=== PATIENT | female | born 1970 | race Two or more races ===

== ENCOUNTER 2023-10-24 18:58 | Inpatient (IN) | payer MEDICAID, OTHER ==
[~2023-10-24] VITALS: Ht 162.6 cm; Wt 141.0 kg
[2023-10-24] MEDS: ALBUTEROL SULF 2.5 MG/0.5ML(0.5%) NEB SOLN HHN ONE (19:37)
[2023-10-24] MEDS: IPRATROPIUM BROM 0.5 MG/2.5ML INH SOL HHN ONE (19:37)
[2023-10-24 20:16] LABS: Basophils # (auto) 0 10 ^3/uL (0-0.2); Basophils % (auto) 0.2 % (0.0-2.0); Eosinophils # (auto) 0.1 10 ^3/uL (0-0.8); Eosinophils % (auto) 1.5 % (0.0-7.0); Hematocrit 41.4 % (36.0-46.0); Hemoglobin 13.1 g/dL (12.2-16.2); Lymphocytes # (auto) 1.1 10 ^3/uL (0.4-5.4); Lymphocytes % (auto) 12.8 % (10.0-50.0); Mean Corpuscular Hemoglobin 28.9 pg (28.0-32.0); Mean Corpuscular Hgb Conc. 31.7 g/dL (32.0-36.0); Mean Corpuscular Volume 91.2 fL (80.0-100.0); Monocytes # (auto) 0.4 10 ^3/uL (0-1.3); Monocytes % (auto) 4.6 % (0.0-12.0); Neutrophils # (auto) 7.1 10 ^3/uL (1.6-8.6); Neutrophils % (auto) 80.9 % (37.0-80.0); Red Blood Cells 4.53 10^6/uL (4.0-5.20); Red Cell Distribution Width 14.9 % (11.8-14.3); White Blood Cell 8.8 10^3/uL (4.4-10.8)
[2023-10-24 20:26] LABS: Chloride 105 mmol/L (98-107); Potassium 4.1 mmol/L (3.5-5.1); Sodium 141 mmol/L (136-145)
[2023-10-24 20:27] LABS: Anion Gap 3 (5-15); Carbon Dioxide 33 mmol/L (20-30)
[2023-10-24 20:28] LABS: Calcium 8.9 mg/dL (8.5-10.1)
[2023-10-24 20:32] LABS: BUN/Creatinine Ratio 17.9 (10.0-20.0); Blood Urea Nitrogen 12 mg/dL (9-23); Glucose 106 mg/dL (74-106)
[2023-10-24] MEDS ORDERED: DOCUSATE SOD 100 MG CAP PO PRN (21:30)
[2023-10-24] MEDS ORDERED: HYDROcodone-ACET 5/325MG TAB PO PRN (21:30)
[2023-10-24] MEDS ORDERED: ONDANSETRON HCL 4 MG/2 ML VIAL IV PRN (21:30)
[2023-10-24 22:56] VITALS: BP 108/77; PULSE 72; RESP 20; TEMP 98.7; O2SAT 94
[2023-10-24] MEDS ORDERED: MORPHINE SULFATE INJ 2 MG/ml SYRG IV PRN (23:00)
[2023-10-24] MEDS ORDERED: NITROGLYCERIN 0.4 MG SL TAB SL PRN (23:00)
[2023-10-25] VITALS (13 sets, daily range): BP systolic 97–102; BP diastolic 45–60; PULSE 74–91; RESP 16–20; TEMP 97.6–98.3; O2SAT 93–100
[2023-10-25] MEDS: methylPREDNISolone SOD SUCC 40 MG/ML VL IV SCH ×2 (03:01→10:54)
[2023-10-25] MEDS: SODIUM CHLOR 0.9% PF (SALINE LOCK) 10ML VIAL/SYR IV SCH (03:01)
[2023-10-25] MEDS: methylPREDNISolone SOD SUCC 125 MG/2 ML VL IV ONE (03:25)
[2023-10-25] MEDS: AZITHROMYCIN 500MG/ 250ML 250 ML IV ONE (03:26)
[2023-10-25 03:34] LABS: Urine Bacteria FEW /hpf (None Seen); Urine Blood Negative /uL (Negative); Urine Clarity HAZY (Clear); Urine Color Yellow (Yellow); Urine Mucus FEW (None Seen); Urine Protein, UAD TRACE (Negative); Urine Specific Gravity 1.027 (1.001-1.035); Urine Urobilinogen Normal (Negative); Urine WBC 129 /hpf (0 - 5)
[2023-10-25 04:18] LABS: Rapid Influenza A Negative (Negative); Rapid Influenza B Negative (Negative)
[2023-10-25 04:19] LABS: COVID19 ANTIGEN SOFIA FIA NEGATIVE (NEGATIVE)
[2023-10-25 04:53] LABS: Basophils # (auto) 0 10 ^3/uL (0-0.2); Basophils % (auto) 0.1 % (0.0-2.0); Eosinophils # (auto) 0.1 10 ^3/uL (0-0.8); Eosinophils % (auto) 1.3 % (0.0-7.0); Hematocrit 36.3 % (36.0-46.0); Hemoglobin 11.6 g/dL (12.2-16.2); Lymphocytes # (auto) 0.7 10 ^3/uL (0.4-5.4); Lymphocytes % (auto) 13.1 % (10.0-50.0); Mean Corpuscular Hemoglobin 29.4 pg (28.0-32.0); Mean Corpuscular Volume 91.9 fL (80.0-100.0); Monocytes # (auto) 0.3 10 ^3/uL (0-1.3); Monocytes % (auto) 4.4 % (0.0-12.0); Neutrophils # (auto) 4.6 10 ^3/uL (1.6-8.6); Neutrophils % (auto) 81.1 % (37.0-80.0); Nucleated Red Blood Cells % 0.1 %; Red Blood Cells 3.95 10^6/uL (4.0-5.20); White Blood Cell 5.7 10^3/uL (4.4-10.8)
[2023-10-25] MEDS: cefTRIAXone 1GM/50ML D5W 50 ML IV SCH (09:56)
[2023-10-25] MEDS: FAMOTIDINE (10MG/ML) 2ML VL IV SCH (09:56)
[2023-10-25 11:05] LABS: Alanine Aminotransferase 17 U/L (7-40); Albumin 3.6 g/dL (3.2-4.8); Alkaline Phosphatase 69 U/L (46-116); Anion Gap 2 (5-15); Aspartate Aminotransferase 9 U/L (13-40); BUN/Creatinine Ratio 15.2 (10.0-20.0); Bilirubin, Total 0.4 mg/dL (0.2-1.0); Blood Urea Nitrogen 10 mg/dL (9-23); Calcium 8.5 mg/dL (8.5-10.1); Carbon Dioxide 31 mmol/L (20-30); Chloride 107 mmol/L (98-107); Cholesterol 120 mg/dL (< 200); Glucose 138 mg/dL (74-106); HDL Cholesterol 41 mg/dL (40-59); LDL Cholesterol 67 mg/dL (< 100); Potassium 3.9 mmol/L (3.5-5.1); Sodium 140 mmol/L (136-145); Triglycerides 72 mg/dL (< 150)
[2023-10-25 11:06] LABS: Total Protein 5.1 g/dL (5.7-8.2)
[2023-10-25 11:35] LABS: INR 1.03 (0.9-1.15); Partial Thromboplastin Time 23.6 SEC (24.5-34.5); Prothrombin Time 10.8 sec (9.3-11.8)
[2023-10-25 11:53] LABS: Carcinoembryonic Antigen 1.94 ng/mL (<=5.0); Folate (Folic Acid) 10.55 ng/mL (>5.38)
[2023-10-25] MEDS: ALBUTEROL SULF 2.5 MG/0.5ML(0.5%) NEB SOLN NEB PRN (15:40)
[2023-10-25] MEDS: IPRATROPIUM BROM 0.5 MG/2.5ML INH SOL NEB PRN (15:40)
[2023-10-26] VITALS (15 sets, daily range): BP systolic 98–103; BP diastolic 41–68; PULSE 61–91; RESP 16–20; TEMP 36.8; O2SAT 92–100
[2023-10-26] MEDS: AZITHROMYCIN 500MG/ 250ML 250 ML IV SCH (01:11)
[2023-10-26 10:19] LABS: Basophils # (auto) 0 10 ^3/uL (0-0.2); Basophils % (auto) 0.1 % (0.0-2.0); Eosinophils # (auto) 0 10 ^3/uL (0-0.8); Eosinophils % (auto) 0.4 % (0.0-7.0); Hematocrit 38.8 % (36.0-46.0); Hemoglobin 12.4 g/dL (12.2-16.2); Lymphocytes # (auto) 0.8 10 ^3/uL (0.4-5.4); Lymphocytes % (auto) 12.2 % (10.0-50.0); Mean Corpuscular Hemoglobin 29.6 pg (28.0-32.0); Mean Corpuscular Hgb Conc. 31.9 g/dL (32.0-36.0); Mean Corpuscular Volume 92.8 fL (80.0-100.0); Monocytes # (auto) 0.5 10 ^3/uL (0-1.3); Monocytes % (auto) 7.6 % (0.0-12.0); Neutrophils # (auto) 5.1 10 ^3/uL (1.6-8.6); Neutrophils % (auto) 79.7 % (37.0-80.0); Nucleated Red Blood Cells % 0.1 %; Red Blood Cells 4.18 10^6/uL (4.0-5.20); Red Cell Distribution Width 14.9 % (11.8-14.3); White Blood Cell 6.3 10^3/uL (4.4-10.8)
[2023-10-26 10:25] LABS: Chloride 107 mmol/L (98-107); Potassium 3.8 mmol/L (3.5-5.1); Sodium 142 mmol/L (136-145)
[2023-10-26 10:26] LABS: Anion Gap 4 (5-15); Carbon Dioxide 31 mmol/L (20-30)
[2023-10-26 10:27] LABS: Calcium 8.8 mg/dL (8.7-10.4)
[2023-10-26 10:31] LABS: BUN/Creatinine Ratio 10.7 (10.0-20.0); Blood Urea Nitrogen 6 mg/dL (9-23); Glucose 96 mg/dL (74-106)
[2023-10-26] MEDS: IPRATROPIUM BROM 0.5 MG/2.5ML INH SOL NEB SCH (19:03)
[2023-10-26] MEDS: ALBUTEROL SULF 2.5 MG/0.5ML(0.5%) NEB SOLN NEB SCH (19:03)
[2023-10-27] VITALS (17 sets, daily range): BP systolic 79–115; BP diastolic 41–72; PULSE 70–94; RESP 16–22; TEMP 97.5–98.6; O2SAT 95–100
[2023-10-27] MEDS: ACETAMINOPHEN 325 MG TAB PO PRN (08:32)
[2023-10-27] MEDS: SODIUM CHLORIDE 0.9% 1,000 ML IV SCH (09:45)
[2023-10-28] VITALS (12 sets, daily range): BP systolic 91–101; BP diastolic 43–53; PULSE 67–94; RESP 14–20; TEMP 97.8–98.5; O2SAT 90–100
[2023-10-28 07:49] LABS: Basophils # (auto) 0 10 ^3/uL (0-0.2); Basophils % (auto) 0.2 % (0.0-2.0); Eosinophils # (auto) 0 10 ^3/uL (0-0.8); Hematocrit 40.2 % (36.0-46.0); Hemoglobin 12.7 g/dL (12.2-16.2); Lymphocytes # (auto) 0.3 10 ^3/uL (0.4-5.4); Lymphocytes % (auto) 4.7 % (10.0-50.0); Mean Corpuscular Hemoglobin 28.7 pg (28.0-32.0); Mean Corpuscular Hgb Conc. 31.7 g/dL (32.0-36.0); Mean Corpuscular Volume 90.7 fL (80.0-100.0); Monocytes # (auto) 0.2 10 ^3/uL (0-1.3); Monocytes % (auto) 2.6 % (0.0-12.0); Neutrophils # (auto) 6.7 10 ^3/uL (1.6-8.6); Neutrophils % (auto) 92.5 % (37.0-80.0); Red Blood Cells 4.43 10^6/uL (4.0-5.20); Red Cell Distribution Width 15.1 % (11.8-14.3); White Blood Cell 7.2 10^3/uL (4.4-10.8)
[2023-10-28 08:12] LABS: Calcium 9.2 mg/dL (8.5-10.1); Chloride 104 mmol/L (98-107); Sodium 137 mmol/L (136-145)
[2023-10-28 08:13] LABS: Anion Gap 5 (5-15); Carbon Dioxide 28 mmol/L (20-30)
[2023-10-28 08:19] LABS: BUN/Creatinine Ratio 17.3 (10.0-20.0); Blood Urea Nitrogen 9 mg/dL (9-23); Glucose 141 mg/dL (74-106)
[2023-10-28] MEDS ORDERED: AZITTAB PO ×3 (11:29→14:30)
[2023-10-28] MEDS ORDERED: ALBUAER3 IN ×2 (12:27→14:30)
== END 2023-10-28 18:00 | disposition home or self-care (01) | DRG 140 ==
LOC: ER 18:58 → EDBD 18:58 → TELE 22:51 → TELE-CENTR 10-25 12:11
PROVIDERS: ADMIT Internal Medicine; ATTEND Internal Medicine
DX: J44.1 Chronic obstructive pulmonary disease with (acute) exacerbation (principal); J96.01 Acute respiratory failure with hypoxia; J15.69 Pneumonia due to other Gram-negative bacteria; Z99.81 Dependence on supplemental oxygen; J15.9 Unspecified bacterial pneumonia; N39.0 Urinary tract infection, site not specified; F31.9 Bipolar disorder, unspecified; F44.81 Dissociative identity disorder; F41.0 Panic disorder [episodic paroxysmal anxiety]; Z20.822 Contact with and (suspected) exposure to COVID-19; J44.0 Chronic obstructive pulmonary disease with (acute) lower respiratory infection
CPT/HCPCS: 36415; 71045; 80048; 80053; 80061; 81001; 82378; 82607; 82746; 83036; 83880; 84443; 84484; 85025; 85610; 85730; 87086; 87426; 87804; 93005; 94640; G0378; J3490

== ENCOUNTER 2023-11-11 18:21 | Emergency (ER) | payer MEDICAID ==
[~2023-11-11] VITALS: Ht 165.1 cm; Wt 64.0 kg
[~2023-11-11 18:21] MED LIST: ALBUAER3 IN; AZITTAB PO
[2023-11-12] MEDS ORDERED: ALBUAER3 IN (01:03)
[2023-11-12 14:40] VITALS: BP 120/60; PULSE 80; RESP 13; TEMP 98.3; O2SAT 95
== END 2023-11-12 14:50 | disposition still patient (30) ==
LOC: ER 18:21 → EDBD 18:21 → ER 11-12 14:47
DX: M25.551 Pain in right hip (principal); J44.9 Chronic obstructive pulmonary disease, unspecified; F20.9 Schizophrenia, unspecified; Z00.00 Encounter for general adult medical examination without abnormal findings; Z76.89 Persons encountering health services in other specified circumstances; Z87.891 Personal history of nicotine dependence
CPT/HCPCS: 73502

== ENCOUNTER 2023-11-13 20:52 | Emergency (ER) | payer MEDICAID ==
[~2023-11-13] VITALS: Ht 167.6 cm; Wt 68.0 kg
[2023-11-13 23:42] VITALS: BP 113/66; PULSE 75; RESP 18; TEMP 97.9
[2023-11-14] MEDS ORDERED: NAP500T PO (02:52)
[2023-11-14 03:56] VITALS: O2SAT 100
[2023-11-15] MEDS ORDERED: NITR-87 PO (18:49)
[2023-11-15] MEDS ORDERED: DICY10CA PO (18:49)
[2023-11-15] MEDS ORDERED: ZOFR4T PO (18:49)
[2023-11-15] MEDS ORDERED: ALBU108A5 IN (19:28)
== END 2023-11-14 04:10 | disposition home or self-care (01) ==
LOC: ER 20:52 → EDBD 20:52 → ER 11-14 04:10
DX: M25.552 Pain in left hip (principal); J44.9 Chronic obstructive pulmonary disease, unspecified; Z87.891 Personal history of nicotine dependence; Z79.2 Long term (current) use of antibiotics; Z79.899 Other long term (current) drug therapy

== ENCOUNTER 2023-11-15 15:52 | Emergency (ER) | payer MEDICAID ==
[~2023-11-15] VITALS: Ht 160 cm; Wt 68.2 kg
[~2023-11-15 15:52] MED LIST changes: +NAP500T PO
[2023-11-15] MEDS: ONDANSETRON ODT 4 MG TAB PO ONE (16:30)
[2023-11-15] MEDS: DICYCLOMINE HCL (10MG/ML) 2 ML AMPULE IM ONE (16:30)
[2023-11-15 17:25] LABS: Urine Bacteria FEW /hpf (None Seen); Urine Blood TRACE /uL (Negative); Urine Clarity HAZY (Clear); Urine Color Colorless (Yellow); Urine Mucus FEW (None Seen); Urine Protein, UAD Negative (Negative); Urine Specific Gravity 1.014 (1.001-1.035); Urine Urobilinogen Normal (Negative); Urine WBC 264 /hpf (0 - 5)
[2023-11-15 18:23] LABS: Rapid Influenza A Negative (Negative); Rapid Influenza B Negative (Negative)
[2023-11-15 18:24] LABS: COVID19 ANTIGEN SOFIA FIA NEGATIVE (NEGATIVE)
[2023-11-15] MEDS ORDERED: DICY10CA PO (18:49)
[2023-11-15] MEDS ORDERED: NITR-87 PO (18:49)
[2023-11-15] MEDS ORDERED: ZOFR4T PO (18:49)
[2023-11-15] MEDS ORDERED: ALBU108A5 IN (19:28)
[2023-11-15] MEDS: NITROFURANTOIN 100 mg CAP PO ONE (19:36)
[2023-11-16 07:30] VITALS: BP 110/55; PULSE 76; RESP 16; TEMP 97.9; O2SAT 98
== END 2023-11-16 08:45 | disposition home or self-care (01) ==
LOC: EDBD 15:52 → ER 15:52
DX: N39.0 Urinary tract infection, site not specified (principal); R19.7 Diarrhea, unspecified; J44.9 Chronic obstructive pulmonary disease, unspecified; Z20.822 Contact with and (suspected) exposure to COVID-19; Z87.891 Personal history of nicotine dependence
CPT/HCPCS: 36415; 81001; 87426; 87804; 96372; 99283; J0500; Q0162

== ENCOUNTER 2023-11-23 22:00 | Emergency (ER) | payer MEDICAID ==
[~2023-11-23] VITALS: Ht 162.6 cm; Wt 55.0 kg
[~2023-11-23 22:00] MED LIST changes: +ALBU108A5 IN; +DICY10CA PO; +NITR-87 PO; +ZOFR4T PO
[2023-11-23] MEDS: methylPREDNISolone SOD SUCC 125 MG/2 ML VL IM ONE (23:55)
[2023-11-23] MEDS: KETOROLAC TROMETH 30 MG/ML 1ML VIAL IM ONE (23:55)
[2023-11-24] MEDS ORDERED: LOPE1TAB9 PO (00:34)
[2023-11-24 14:50] VITALS: PULSE 75
[2023-11-25] MEDS: HALOPERIDOL 5 MG TAB PO SCH (01:32)
[2023-11-25 03:59] VITALS: PULSE 66; RESP 16; O2SAT 100
[2023-11-25] MEDS: methylPREDNISolone SOD SUCC 125 MG/2 ML VL IM ONE (10:00)
[2023-11-25] MEDS: IPRATROPIUM BROM 0.5 MG/2.5ML INH SOL NEB ONE (10:55)
[2023-11-25] MEDS: ALBUTEROL SULF 2.5 MG/0.5ML(0.5%) NEB SOLN NEB ONE (10:55)
[2023-11-26] MEDS: IPRATROPIUM BROM 0.5 MG/2.5ML INH SOL NEB ONE (04:00)
[2023-11-26] MEDS: ALBUTEROL SULF 2.5 MG/0.5ML(0.5%) NEB SOLN NEB ONE (04:00)
[2023-11-26 07:15] VITALS: PULSE 91; RESP 16; O2SAT 100
[2023-11-26 16:27] VITALS: PULSE 70; RESP 16; TEMP 98.1; O2SAT 99
[2023-11-26 16:30] VITALS: BP 114/76
== END 2023-11-26 16:35 | disposition home or self-care (01) ==
LOC: ER 22:00 → EDBD 22:00 → ER 11-26 16:35
DX: S33.5XXA Sprain of ligaments of lumbar spine, initial encounter (principal); R19.7 Diarrhea, unspecified; J44.9 Chronic obstructive pulmonary disease, unspecified; Z87.891 Personal history of nicotine dependence; Z79.2 Long term (current) use of antibiotics; Z79.899 Other long term (current) drug therapy; X58.XXXA Exposure to other specified factors, initial encounter; Y93.89 Activity, other specified; Y92.89 Other specified places as the place of occurrence of the external cause; Y99.8 Other external cause status
CPT/HCPCS: 94640; 96372; 99285; J1885; J2930; J7644

== ENCOUNTER 2024-01-01 20:05 | Emergency (ER) | payer MEDICAID ==
[~2024-01-01] VITALS: Ht 165.1 cm; Wt 63.0 kg
[~2024-01-01 20:05] MED LIST changes: +LOPE1TAB9 PO
[2024-01-01 21:11] LABS: Basophils # (auto) 0 10 ^3/uL (0-0.2); Basophils % (auto) 0.5 % (0.0-2.0); Eosinophils # (auto) 0.1 10 ^3/uL (0-0.8); Eosinophils % (auto) 1.6 % (0.0-7.0); Hemoglobin 14.9 g/dL (12.2-16.2); Lymphocytes # (auto) 1.6 10 ^3/uL (0.4-5.4); Lymphocytes % (auto) 28.9 % (10.0-50.0); Mean Corpuscular Hemoglobin 29.6 pg (28.0-32.0); Mean Corpuscular Hgb Conc. 32.4 g/dL (32.0-36.0); Mean Corpuscular Volume 91.3 fL (80.0-100.0); Monocytes # (auto) 0.7 10 ^3/uL (0-1.3); Neutrophils # (auto) 3.1 10 ^3/uL (1.6-8.6); Red Blood Cells 5.03 10^6/uL (4.0-5.20); White Blood Cell 5.5 10^3/uL (4.4-10.8)
[2024-01-01 21:30] LABS: Alanine Aminotransferase 12 U/L (7-40); Albumin 4.5 g/dL (3.2-4.8); Alkaline Phosphatase 79 U/L (46-116); Anion Gap 5 (5-15); Aspartate Aminotransferase 12 U/L (13-40); BUN/Creatinine Ratio 12.7 (10.0-20.0); Bilirubin, Total 0.3 mg/dL (0.2-1.0); Blood Urea Nitrogen 10 mg/dL (9-23); Calcium 9.8 mg/dL (8.7-10.4); Carbon Dioxide 30 mmol/L (20-30); Chloride 103 mmol/L (98-107); Glucose 117 mg/dL (74-106); Potassium 4.6 mmol/L (3.5-5.1); Sodium 138 mmol/L (136-145); Total Protein 6.1 g/dL (5.7-8.2)
[2024-01-02] MEDS ORDERED: PRED20TA2 PO (01:17)
[2024-01-02] MEDS: IPRATROPIUM BROM 0.5 MG/2.5ML INH SOL NEB ONE (01:31)
[2024-01-02] MEDS: ALBUTEROL SULF 2.5 MG/0.5ML(0.5%) NEB SOLN NEB ONE (01:31)
[2024-01-02 02:05] VITALS: BP 110/73; RESP 16; TEMP 97.9; O2SAT 98
[2024-01-02 03:14] VITALS: PULSE 65
[2024-01-02] MEDS: methylPREDNISolone SOD SUCC 125 MG/2 ML VL IV ONE (05:20)
== END 2024-01-02 03:15 | disposition left against medical advice (07) ==
LOC: EDBD 20:05 → ER 20:05 → EDUNIT# 20:05 → ER 01-02 02:02
DX: J44.1 Chronic obstructive pulmonary disease with (acute) exacerbation (principal); F20.9 Schizophrenia, unspecified
CPT/HCPCS: 36415; 71045; 80053; 83880; 84484; 85025; 93005; 94640; 99285; J7644

== ENCOUNTER 2024-02-05 19:04 | Inpatient (IN) | payer MEDICAID ==
[~2024-02-05] VITALS: Ht 167.6 cm; Wt 60.0 kg
[~2024-02-05 19:04] MED LIST changes: +PRED20TA2 PO
[2024-02-05 20:47] VITALS: PULSE 94; RESP 22; O2SAT 98
[2024-02-05 21:48] LABS: Basophils # (auto) 0 10 ^3/uL (0-0.2); Basophils % (auto) 0.5 % (0.0-2.0); Eosinophils # (auto) 0.2 10 ^3/uL (0-0.8); Eosinophils % (auto) 3.9 % (0.0-7.0); Hematocrit 37.7 % (36.0-46.0); Hemoglobin 12.3 g/dL (12.2-16.2); Lymphocytes % (auto) 23.4 % (10.0-50.0); Mean Corpuscular Hemoglobin 30.3 pg (28.0-32.0); Mean Corpuscular Hgb Conc. 32.8 g/dL (32.0-36.0); Mean Corpuscular Volume 92.3 fL (80.0-100.0); Monocytes # (auto) 0.7 10 ^3/uL (0-1.3); Monocytes % (auto) 15.8 % (0.0-12.0); Neutrophils # (auto) 2.4 10 ^3/uL (1.6-8.6); Neutrophils % (auto) 56.4 % (37.0-80.0); Red Blood Cells 4.08 10^6/uL (4.0-5.20); Red Cell Distribution Width 16.4 % (11.8-14.3); White Blood Cell 4.2 10^3/uL (4.4-10.8)
[2024-02-05 22:03] LABS: Albumin 3.7 g/dL (3.2-4.8); Alkaline Phosphatase 57 U/L (46-116); Anion Gap 4 (5-15); Aspartate Aminotransferase 13 U/L (13-40); Calcium 9.6 mg/dL (8.7-10.4); Carbon Dioxide 30 mmol/L (20-30); Chloride 108 mmol/L (98-107); Glucose 107 mg/dL (74-106); INR 1.12 (0.9-1.15); Lipase 38 U/L (12-53); Partial Thromboplastin Time 27.1 SEC (24.5-34.5); Potassium 3.6 mmol/L (3.5-5.1); Prothrombin Time 11.8 sec (9.3-11.8); Sodium 142 mmol/L (136-145)
[2024-02-05 22:04] LABS: Bilirubin, Total 0.2 mg/dL (0.2-1.0); Total Protein 5.4 g/dL (5.7-8.2)
[2024-02-05] MEDS: IPRATROPIUM BROM 0.5 MG/2.5ML INH SOL NEB ONE (22:17)
[2024-02-05] MEDS: ALBUTEROL SULF 2.5 MG/0.5ML(0.5%) NEB SOLN NEB ONE (22:18)
[2024-02-05 22:19] LABS: Alanine Aminotransferase < 9 U/L (7-40); BUN/Creatinine Ratio 8.6 (10.0-20.0); Blood Urea Nitrogen < 5 mg/dL (9-23)
[2024-02-06] VITALS (13 sets, daily range): BP systolic 97–123; BP diastolic 42–80; PULSE 66–81; RESP 16–24; TEMP 97.9–98; O2SAT 3–100
[2024-02-06] MEDS: ACETAMINOPHEN 500 MG TAB PO ONE (01:07)
[2024-02-06 02:09] LABS: Urine Bacteria FEW /hpf (None Seen); Urine Blood Negative /uL (Negative); Urine Budding Yeast OCCASIONAL /hpf (None Seen); Urine Clarity Turbid (Clear); Urine Color Yellow (Yellow); Urine Hyaline Cast FEW /lpf (0 - 2); Urine Mucus FEW (None Seen); Urine Protein, UAD 1+ (Negative); Urine Specific Gravity 1.021 (1.001-1.035); Urine Urobilinogen 2 mg/dL (Negative); Urine WBC 56 /hpf (0 - 5)
[2024-02-06 02:14] LABS: Amphetamine Screen, Urine Neg (NEGATIVE); Barbiturate Scree,Urine Neg (NEGATIVE); Benzodiazephine Screen, Urine Neg (NEGATIVE); Cannabinoid Screen, Urine Neg (NEGATIVE); Cocaine Screen, Urine Neg (NEGATIVE); Opiate Scree,Urine Neg (NEGATIVE); Phencyclidine Screen, Urine Neg (NEGATIVE)
[2024-02-06] MEDS: IBUPROFEN 600 MG TAB PO ONE (03:14)
[2024-02-06] MEDS: IPRATROPIUM BROM 0.5 MG/2.5ML INH SOL NEB ONE (03:27)
[2024-02-06] MEDS: ALBUTEROL SULF 2.5 MG/0.5ML(0.5%) NEB SOLN NEB ONE (03:27)
[2024-02-06] MEDS ORDERED: ONDANSETRON HCL 4 MG/2 ML VIAL IV PRN (07:00)
[2024-02-06] MEDS ORDERED: TEMAZEPAM 15 MG CAP PO PRN (07:00)
[2024-02-06] MEDS ORDERED: ALBUTEROL SULF 2.5 MG/0.5ML(0.5%) NEB SOLN NEB PRN (07:00)
[2024-02-06] MEDS ORDERED: NITROGLYCERIN 0.4 MG SL TAB SL PRN (07:00)
[2024-02-06] MEDS ORDERED: MORPHINE SULFATE INJ 2 MG/ml SYRG IV PRN ×2 (07:00)
[2024-02-06 09:21] LABS: Hepatitis B Surface Antigen Negative (Negative)
[2024-02-06 09:42] LABS: Hepatitis C Antibody Negative (Negative)
[2024-02-06] MEDS: cefTRIAXone 1GM/50ML D5W 50 ML IV ONE (10:00)
[2024-02-06] MEDS: PNEUMOCOCCAL VACC POLYS 25 MCG/0.5 ML VIAL IM ONE (10:17)
[2024-02-06] MEDS ORDERED: LORazepam 2MG/ML-1ML VIAL IV ONE (11:00)
[2024-02-06 11:15] LABS: Basophils # (auto) 0 10 ^3/uL (0-0.2); Basophils % (auto) 0.5 % (0.0-2.0); Eosinophils # (auto) 0.2 10 ^3/uL (0-0.8); Eosinophils % (auto) 3.4 % (0.0-7.0); Hematocrit 42.4 % (36.0-46.0); Hemoglobin 13.8 g/dL (12.2-16.2); Lymphocytes % (auto) 22.2 % (10.0-50.0); Mean Corpuscular Hemoglobin 30.5 pg (28.0-32.0); Mean Corpuscular Hgb Conc. 32.6 g/dL (32.0-36.0); Mean Corpuscular Volume 93.4 fL (80.0-100.0); Monocytes # (auto) 0.7 10 ^3/uL (0-1.3); Neutrophils # (auto) 2.6 10 ^3/uL (1.6-8.6); Neutrophils % (auto) 58.9 % (37.0-80.0); Nucleated Red Blood Cells % 0.1 %; Red Blood Cells 4.54 10^6/uL (4.0-5.20); White Blood Cell 4.5 10^3/uL (4.4-10.8)
[2024-02-06 11:34] LABS: Albumin 4.2 g/dL (3.2-4.8); Alkaline Phosphatase 67 U/L (46-116); Anion Gap 3 (5-15); Aspartate Aminotransferase 14 U/L (13-40); CRP High Sensitivity 0.84 mg/dL (<1.0); Calcium 9.6 mg/dL (8.5-10.1); Carbon Dioxide 31 mmol/L (20-30); Chloride 105 mmol/L (98-107); Cholesterol 161 mg/dL (< 200); Glucose 104 mg/dL (74-106); HDL Cholesterol 63 mg/dL (40-59); LDL Cholesterol 75 mg/dL (< 100); Magnesium 1.6 mg/dL (1.6-2.6); Potassium 4.3 mmol/L (3.5-5.1); Sodium 139 mmol/L (136-145); Triglycerides 43 mg/dL (< 150)
[2024-02-06 11:35] LABS: Bilirubin, Total 0.3 mg/dL (0.2-1.0)
[2024-02-06 11:48] LABS: Alanine Aminotransferase 9 U/L (7-40); BUN/Creatinine Ratio 7.8 (10.0-20.0); Blood Urea Nitrogen < 5 mg/dL (9-23)
[2024-02-06] MEDS: AZITHROMYCIN 500MG/ 250ML 250 ML IV SCH (11:50)
[2024-02-06] MEDS: IPRATROPIUM BROM 0.5 MG/2.5ML INH SOL NEB SCH (12:00)
[2024-02-06] MEDS: ALBUTEROL SULF 2.5 MG/0.5ML(0.5%) NEB SOLN NEB SCH (12:00)
[2024-02-06] MEDS: ALBUTEROL SULF 2.5 MG/0.5ML(0.5%) NEB SOLN NEB PRN (16:47)
[2024-02-06] MEDS: IPRATROPIUM BROM 0.5 MG/2.5ML INH SOL NEB PRN (16:48)
[2024-02-07] VITALS (10 sets, daily range): BP systolic 100–128; BP diastolic 47–92; PULSE 60–89; RESP 14–18; TEMP 97.6–98.9; O2SAT 96–100
[2024-02-07] MEDS: ACETAMINOPHEN 325 MG TAB PO PRN (03:26)
[2024-02-07] MEDS: HYDROcodone-ACET 5/325MG TAB PO PRN (05:43)
[2024-02-07] MEDS: BUDESONIDE (INHALATION) 0.5 MG/2 ML NEB ONE (06:36)
[2024-02-07 07:34] LABS: Hematocrit 39.8 % (36.0-46.0); Hemoglobin 12.9 g/dL (12.2-16.2); Mean Corpuscular Hemoglobin 30.5 pg (28.0-32.0); Mean Corpuscular Hgb Conc. 32.3 g/dL (32.0-36.0); Mean Corpuscular Volume 94.4 fL (80.0-100.0); Red Blood Cells 4.22 10^6/uL (4.0-5.20); Red Cell Distribution Width 16.7 % (11.8-14.3); White Blood Cell 3.2 10^3/uL (4.4-10.8)
[2024-02-07 07:41] LABS: Albumin 3.5 g/dL (3.2-4.8); Alkaline Phosphatase 58 U/L (46-116); Anion Gap 3 (5-15); Aspartate Aminotransferase 16 U/L (13-40); Carbon Dioxide 29 mmol/L (20-30); Chloride 106 mmol/L (98-107); Glucose 78 mg/dL (74-106); Magnesium 1.6 mg/dL (1.6-2.6); Potassium 3.9 mmol/L (3.5-5.1); Sodium 138 mmol/L (136-145)
[2024-02-07 07:42] LABS: Bilirubin, Total 0.3 mg/dL (0.2-1.0); Total Protein 5.1 g/dL (5.7-8.2)
[2024-02-07 07:43] LABS: Band Neutrophils % (manual) 0; Basophils % (manual) 0 (0.0-2.0); Blast Cells 0; Metamyelocytes % 0; Myelocytes % 0; Promyelocytes % 0; Reactive Lymphocytes 0
[2024-02-07 07:56] LABS: Alanine Aminotransferase < 9 U/L (7-40); BUN/Creatinine Ratio 10.9 (10.0-20.0); Blood Urea Nitrogen < 5 mg/dL (9-23)
[2024-02-07 08:24] LABS: Eosinophils % (manual) 8 (0-7); Lymphocytes % (manual) 29 (10.0-50.0); Monocytes % (manual) 17 (0-12); Platelet Estimate Decreased
[2024-02-07] MEDS: cefTRIAXone 1GM/50ML D5W 50 ML IV SCH (08:51)
[2024-02-07] MEDS ORDERED: LORazepam 0.5 MG TAB PO PRN (12:15)
[2024-02-07] MEDS ORDERED: LORazepam 2MG/ML-1ML VIAL IV PRN (12:30)
[2024-02-07 21:00] LABS: COVID19 ANTIGEN SOFIA FIA NEGATIVE (NEGATIVE)
[2024-02-07 21:01] LABS: Rapid Influenza A Negative (Negative); Rapid Influenza B Negative (Negative)
[2024-02-07] MEDS: MUPIROCIN 2% OINT 15gm or 22gm FOR MRSA NARES EACHNOSTRI SCH (22:00)
[2024-02-08] VITALS (11 sets, daily range): BP systolic 90–102; BP diastolic 50–59; PULSE 58–78; RESP 16–20; TEMP 96.8–98.5; O2SAT 10–100
[2024-02-08] MEDS ORDERED: CEFP200T15 PO (09:17)
[2024-02-08] MEDS ORDERED: AZITTAB PO (09:17)
[2024-02-08] MEDS ORDERED: ALBUAER3 IN (09:17)
[2024-02-08] MEDS ORDERED: MUPI2OIN2 EACHNOSTRI (09:17)
[2024-02-08] MEDS: AZITHROMYCIN 250 MG TAB PO SCH (10:00)
[2024-02-08] MEDS ORDERED: CYCL-611 PO (14:38)
== END 2024-02-08 14:00 | disposition home or self-care (01) | DRG 347 ==
LOC: ER 19:04 → EDBD 19:04 → OVERFLOW 02-06 06:52 → WEST WING 02-06 08:50
PROVIDERS: ADMIT Internal Medicine; ATTEND Internal Medicine
DX: M48.56XA Collapsed vertebra, not elsewhere classified, lumbar region, initial encounter for fracture (principal); J96.21 Acute and chronic respiratory failure with hypoxia; J44.1 Chronic obstructive pulmonary disease with (acute) exacerbation; F31.9 Bipolar disorder, unspecified; N39.0 Urinary tract infection, site not specified; F20.9 Schizophrenia, unspecified; K80.20 Calculus of gallbladder without cholecystitis without obstruction; Z20.822 Contact with and (suspected) exposure to COVID-19; F44.81 Dissociative identity disorder; Z87.891 Personal history of nicotine dependence; K46.9 Unspecified abdominal hernia without obstruction or gangrene
CPT/HCPCS: 36415; 72148; 74176; 76705; 80053; 80061; 80307; 81001; 83605; 83690; 83735; 83880; 84443; 84484; 84702; 85007; 85025; 85027; 85379; 85610; 85730; 86141; 86803; 87040; 87070; 87081; 87086; 87205; 87340; 87426; 87804; 94640; 97163; G0378

== ENCOUNTER 2024-02-10 17:55 | Emergency (ER) | payer MEDICAID ==
[~2024-02-10] VITALS: Ht 167.6 cm; Wt 68.0 kg
[~2024-02-10 17:55] MED LIST changes: +CEFP200T15 PO; +CYCL-611 PO; -DICY10CA PO; -LOPE1TAB9 PO; +MUPI2OIN2 EACHNOSTRI; -NAP500T PO; -NITR-87 PO; -PRED20TA2 PO; -ZOFR4T PO
[2024-02-10 18:44] VITALS: BP 149/54; PULSE 99; TEMP 98
[2024-02-10] MEDS: KETOROLAC TROMETH 30 MG/ML 1ML VIAL IM ONE (19:01)
[2024-02-10] MEDS: cefTRIAXone SOD 1,000 MG VL IM ONE (19:01)
[2024-02-11] MEDS: IPRATROPIUM BROM 0.5 MG/2.5ML INH SOL NEB ONE (04:46)
[2024-02-11] MEDS: ALBUTEROL SULF 2.5 MG/0.5ML(0.5%) NEB SOLN NEB ONE (04:46)
[2024-02-11 04:47] VITALS: RESP 22; O2SAT 95
== END 2024-02-10 19:09 | disposition home or self-care (01) ==
LOC: ER 17:55 → EDBD 17:55 → ER 19:09
DX: M54.59 Other low back pain (principal); F20.9 Schizophrenia, unspecified; J44.9 Chronic obstructive pulmonary disease, unspecified; Z87.891 Personal history of nicotine dependence; Z79.899 Other long term (current) drug therapy
CPT/HCPCS: 94640; 96372; 99284; J0696; J1885

== ENCOUNTER 2024-02-14 22:11 | Emergency (ER) | payer MEDICAID ==
[~2024-02-14] VITALS: Ht 167.6 cm; Wt 50.0 kg
[2024-02-15] MEDS: IBUPROFEN 600 MG TAB PO ONE (03:47)
[2024-02-15 08:11] VITALS: BP 128/55; PULSE 77; RESP 20; TEMP 98.1; O2SAT 92
== END 2024-02-15 09:45 | disposition home or self-care (01) ==
LOC: ER 22:11 → EDBD 22:11 → ER 02-15 09:45
DX: M25.512 Pain in left shoulder (principal); J44.9 Chronic obstructive pulmonary disease, unspecified; F20.9 Schizophrenia, unspecified; Z87.891 Personal history of nicotine dependence; Z79.899 Other long term (current) drug therapy

== ENCOUNTER 2024-03-09 00:19 | Inpatient (IN) | payer MEDICAID ==
[2024-03-09] VITALS (9 sets, daily range): BP systolic 99–124; BP diastolic 37–64; PULSE 67–88; RESP 17–26; TEMP 97.7–97.8; O2SAT 92–100
[~2024-03-09] VITALS: Ht 157.5 cm; Wt 54.2 kg
[2024-03-09 04:50] LABS: Basophils # (auto) 0 10 ^3/uL (0-0.2); Basophils % (auto) 0.6 % (0.0-2.0); Eosinophils # (auto) 0.1 10 ^3/uL (0-0.8); Eosinophils % (auto) 1.5 % (0.0-7.0); Hematocrit 38.8 % (36.0-46.0); Lymphocytes # (auto) 0.8 10 ^3/uL (0.4-5.4); Lymphocytes % (auto) 18.5 % (10.0-50.0); Mean Corpuscular Hgb Conc. 33.6 g/dL (32.0-36.0); Mean Corpuscular Volume 92.2 fL (80.0-100.0); Monocytes # (auto) 0.4 10 ^3/uL (0-1.3); Monocytes % (auto) 9.1 % (0.0-12.0); Neutrophils # (auto) 2.9 10 ^3/uL (1.6-8.6); Neutrophils % (auto) 70.3 % (37.0-80.0); Red Blood Cells 4.21 10^6/uL (4.0-5.20); Red Cell Distribution Width 14.9 % (11.8-14.3); White Blood Cell 4.1 10^3/uL (4.4-10.8)
[2024-03-09 05:09] LABS: Albumin 4.2 g/dL (3.2-4.8); Alkaline Phosphatase 86 U/L (46-116); Anion Gap 1 (5-15); Aspartate Aminotransferase 14 U/L (13-40); Bilirubin, Total 0.4 mg/dL (0.2-1.0); Calcium 9.2 mg/dL (8.5-10.1); Carbon Dioxide 28 mmol/L (20-30); Chloride 92 mmol/L (98-107); Glucose 60 mg/dL (74-106); Potassium 4.3 mmol/L (3.5-5.1); Sodium 121 mmol/L (136-145); Total Protein 5.9 g/dL (5.7-8.2)
[2024-03-09 05:10] LABS: Alanine Aminotransferase < 9 U/L (7-40); BUN/Creatinine Ratio 9.1 (10.0-20.0); Blood Urea Nitrogen < 5 mg/dL (9-23)
[2024-03-09 05:34] LABS: Base Excess -2.2 mmol/L (-2.0-2.0)
[2024-03-09] MEDS: ALBUTEROL SULF 2.5 MG/0.5ML(0.5%) NEB SOLN NEB ONE (06:02)
[2024-03-09] MEDS: IPRATROPIUM BROM 0.5 MG/2.5ML INH SOL NEB ONE (06:03)
[2024-03-09] MEDS: methylPREDNISolone SOD SUCC 125 MG/2 ML VL IV ONE (06:05)
[2024-03-09] MEDS: AZITHROMYCIN 500MG/ 250ML 250 ML IV ONE (06:05)
[2024-03-09] MEDS: cefTRIAXone 1GM/50ML D5W 50 ML IV ONE (06:05)
[2024-03-09] MEDS: SODIUM CHLORIDE 0.9% 1,000 ML IV ONE ×2 (06:06→07:04)
[2024-03-09] MEDS: LORazepam 2MG/ML-1ML VIAL IV ONE (06:09)
[2024-03-09] MEDS ORDERED: IPRATROPIUM BROM 0.5 MG/2.5ML INH SOL NEB PRN (06:15)
[2024-03-09] MEDS ORDERED: ALBUTEROL SULF 2.5 MG/0.5ML(0.5%) NEB SOLN NEB PRN (06:15)
[2024-03-09] MEDS ORDERED: ONDANSETRON HCL 4 MG/2 ML VIAL IV PRN (06:15)
[2024-03-09] MEDS ORDERED: ACETAMINOPHEN 325 MG TAB PO PRN (06:15)
[2024-03-09 06:58] LABS: Urine Bacteria FEW /hpf (None Seen); Urine Blood Negative /uL (Negative); Urine Clarity Clear (Clear); Urine Color Light-Yellow (Yellow); Urine Protein, UAD Negative (Negative); Urine Specific Gravity 1.007 (1.001-1.035); Urine Urobilinogen Normal (Negative); Urine WBC 11 /hpf (0 - 5); Urine pH 6.5 (5.0-9.0)
[2024-03-09] MEDS: ALBUMIN 25% 50 ML IV ONE (07:04)
[2024-03-09] MEDS: methylPREDNISolone SOD SUCC 40 MG/ML VL IV SCH (10:12)
[2024-03-09] MEDS: D5W/SOD CHLO 0.9% 1,000 ML IV SCH (13:42)
[2024-03-09 14:38] LABS: Chloride 96 mmol/L (98-107); Potassium 4.6 mmol/L (3.5-5.1)
[2024-03-09 14:39] LABS: Anion Gap 3 (5-15); Calcium 8.9 mg/dL (8.5-10.1); Carbon Dioxide 28 mmol/L (20-30)
[2024-03-09 14:44] LABS: BUN/Creatinine Ratio 10.4 (10.0-20.0); Blood Urea Nitrogen 5 mg/dL (9-23); Glucose 79 mg/dL (74-106)
[2024-03-09 14:52] LABS: Sodium 127 mmol/L (136-145)
[2024-03-09] MEDS: ALBUTEROL SULF 2.5 MG/0.5ML(0.5%) NEB SOLN NEB SCH (18:15)
[2024-03-09] MEDS: IPRATROPIUM BROM 0.5 MG/2.5ML INH SOL NEB SCH (18:15)
[2024-03-10] VITALS (13 sets, daily range): BP systolic 98–149; BP diastolic 42–80; PULSE 65–85; RESP 16–20; TEMP 97.5–98.4; O2SAT 87–99
[2024-03-10] MEDS: cefTRIAXone 1GM/50ML D5W 50 ML IV SCH (08:05)
[2024-03-10] MEDS: AZITHROMYCIN 500MG/ 250ML 250 ML IV SCH (10:00)
[2024-03-10 18:41] LABS: Albumin 4.1 g/dL (3.2-4.8); Alkaline Phosphatase 74 U/L (46-116); Anion Gap 5 (5-15); Aspartate Aminotransferase 8 U/L (13-40); Calcium 9.6 mg/dL (8.5-10.1); Carbon Dioxide 27 mmol/L (20-30); Chloride 100 mmol/L (98-107); Glucose 83 mg/dL (74-106); Potassium 4.2 mmol/L (3.5-5.1)
[2024-03-10 18:42] LABS: Bilirubin, Total 0.2 mg/dL (0.2-1.0); Total Protein 5.6 g/dL (5.7-8.2)
[2024-03-10 18:45] LABS: Alanine Aminotransferase < 9 U/L (7-40); BUN/Creatinine Ratio 10.9 (10.0-20.0); Blood Urea Nitrogen < 5 mg/dL (9-23); Sodium 132 mmol/L (136-145)
[2024-03-10 18:47] LABS: Basophils # (auto) 0 10 ^3/uL (0-0.2); Basophils % (auto) 0.2 % (0.0-2.0); Eosinophils # (auto) 0 10 ^3/uL (0-0.8); Eosinophils % (auto) 0.2 % (0.0-7.0); Hematocrit 36.2 % (36.0-46.0); Hemoglobin 12.1 g/dL (12.2-16.2); Lymphocytes # (auto) 0.6 10 ^3/uL (0.4-5.4); Lymphocytes % (auto) 9.4 % (10.0-50.0); Mean Corpuscular Hemoglobin 30.8 pg (28.0-32.0); Mean Corpuscular Hgb Conc. 33.5 g/dL (32.0-36.0); Mean Corpuscular Volume 92.1 fL (80.0-100.0); Monocytes # (auto) 0.7 10 ^3/uL (0-1.3); Monocytes % (auto) 10.9 % (0.0-12.0); Neutrophils # (auto) 5.5 10 ^3/uL (1.6-8.6); Neutrophils % (auto) 79.3 % (37.0-80.0); Nucleated Red Blood Cells % 0.1 %; Red Blood Cells 3.94 10^6/uL (4.0-5.20); Red Cell Distribution Width 15.6 % (11.8-14.3); White Blood Cell 6.9 10^3/uL (4.4-10.8)
[2024-03-10] MEDS: HALOPERIDOL LACTATE 5 MG/ML INJ VIAL IV ONE (21:08)
[2024-03-11] VITALS (14 sets, daily range): BP systolic 100–163; BP diastolic 49–105; PULSE 49–92; RESP 16–22; TEMP 97.5–98.7; O2SAT 82–100
[2024-03-11] MEDS: OLANZapine 5 MG TAB PO SCH (09:49)
[2024-03-11] MEDS: HALOPERIDOL LACTATE 5 MG/ML INJ VIAL IV PRN (11:06)
[2024-03-12] VITALS (13 sets, daily range): BP systolic 95–126; BP diastolic 59–75; PULSE 58–96; RESP 18–22; TEMP 36.8; O2SAT 93–100
[2024-03-12] MEDS ORDERED: AZITTAB PO ×3 (12:17→16:02)
[2024-03-12] MEDS ORDERED: ALBUAER3 IN ×2 (12:17)
[2024-03-12] MEDS ORDERED: ALBU108A5 IN ×2 (16:02)
== END 2024-03-12 23:45 | disposition home or self-care (01) | DRG 426 ==
LOC: ER 00:19 → EDBD 00:19 → OVERFLOW 06:14 → TELE-EAST 15:43 → EAST 03-11 15:36
PROVIDERS: ADMIT Nurse Practitioner; ATTEND Nurse Practitioner Acute Care
DX: E87.1 Hypo-osmolality and hyponatremia (principal); J96.01 Acute respiratory failure with hypoxia; G93.41 Metabolic encephalopathy; J15.69 Pneumonia due to other Gram-negative bacteria; J15.9 Unspecified bacterial pneumonia; I95.9 Hypotension, unspecified; J44.1 Chronic obstructive pulmonary disease with (acute) exacerbation; J44.0 Chronic obstructive pulmonary disease with (acute) lower respiratory infection; I10 Essential (primary) hypertension; F20.9 Schizophrenia, unspecified; G89.29 Other chronic pain; Z87.891 Personal history of nicotine dependence; Z79.899 Other long term (current) drug therapy
CPT/HCPCS: 36415; 36600; 71045; 80048; 80053; 81001; 82805; 82962; 83605; 83930; 83935; 84300; 84484; 85025; 87040; 93005; 94640; 96361; 96365; 96368; 96375; G0378; J7042

== ENCOUNTER 2024-03-14 15:30 | Inpatient (IN) | payer MEDICAID ==
[~2024-03-14] VITALS: Ht 157.5 cm; Wt 54.2 kg
[~2024-03-14 15:30] MED LIST changes: -ALBUAER3 IN
[2024-03-14 18:18] LABS: Basophils # (auto) 0 10 ^3/uL (0-0.2); Basophils % (auto) 0.1 % (0.0-2.0); Eosinophils # (auto) 0.1 10 ^3/uL (0-0.8); Eosinophils % (auto) 1.4 % (0.0-7.0); Hematocrit 38.1 % (36.0-46.0); Hemoglobin 12.6 g/dL (12.2-16.2); Lymphocytes # (auto) 1.9 10 ^3/uL (0.4-5.4); Lymphocytes % (auto) 25.4 % (10.0-50.0); Mean Corpuscular Hemoglobin 30.9 pg (28.0-32.0); Mean Corpuscular Hgb Conc. 33.1 g/dL (32.0-36.0); Mean Corpuscular Volume 93.2 fL (80.0-100.0); Monocytes # (auto) 0.9 10 ^3/uL (0-1.3); Monocytes % (auto) 12.5 % (0.0-12.0); Neutrophils # (auto) 4.5 10 ^3/uL (1.6-8.6); Neutrophils % (auto) 60.6 % (37.0-80.0); Nucleated Red Blood Cells % 0.1 %; Red Blood Cells 4.08 10^6/uL (4.0-5.20); Red Cell Distribution Width 16.9 % (11.8-14.3); White Blood Cell 7.4 10^3/uL (4.4-10.8)
[2024-03-14 18:34] LABS: Alanine Aminotransferase 12 U/L (7-40); Alkaline Phosphatase 66 U/L (46-116); Anion Gap 3 (5-15); Aspartate Aminotransferase 10 U/L (13-40); BUN/Creatinine Ratio 13.2 (10.0-20.0); Bilirubin, Total 0.3 mg/dL (0.2-1.0); Blood Urea Nitrogen 7 mg/dL (9-23); Calcium 9.4 mg/dL (8.5-10.1); Carbon Dioxide 35 mmol/L (20-30); Chloride 104 mmol/L (98-107); Glucose 81 mg/dL (74-106); Potassium 3.5 mmol/L (3.5-5.1); Sodium 142 mmol/L (136-145); Total Protein 5.3 g/dL (5.7-8.2)
[2024-03-14 18:41] LABS: Base Excess 7.9 mmol/L (-2.0-2.0)
[2024-03-14 18:49] LABS: INR 1.18 (0.9-1.15); Partial Thromboplastin Time 26.2 SEC (24.5-34.5); Prothrombin Time 12.4 sec (9.3-11.8)
[2024-03-14] MEDS: ASPirin 81 mg TAB PO ONE (19:01)
[2024-03-14] MEDS ORDERED: HYDROcodone-ACET 5/325MG TAB PO PRN (23:00)
[2024-03-14] MEDS ORDERED: ACETAMINOPHEN 325 MG TAB PO PRN (23:00)
[2024-03-14] MEDS ORDERED: DOCUSATE SOD 100 MG CAP PO PRN (23:00)
[2024-03-14] MEDS ORDERED: ONDANSETRON HCL 4 MG/2 ML VIAL IV PRN (23:00)
[2024-03-14] MEDS ORDERED: NITROGLYCERIN 0.4 MG SL TAB SL PRN (23:15)
[2024-03-14] MEDS ORDERED: MORPHINE SULFATE INJ 2 MG/ml SYRG IV PRN (23:15)
[2024-03-14] MEDS: ENOXAPARIN SOD 60 MG/0.6 ML SYRINGE SC ONE (23:44)
[2024-03-15] VITALS (18 sets, daily range): BP systolic 98–137; BP diastolic 46–89; PULSE 59–89; RESP 14–22; TEMP 97.4–98.6; O2SAT 81–100
[2024-03-15] MEDS: methylPREDNISolone SOD SUCC 40 MG/ML VL IV ONE (00:17)
[2024-03-15] MEDS: ALBUTEROL SULF 2.5 MG/0.5ML(0.5%) NEB SOLN NEB PRN (02:07)
[2024-03-15] MEDS: methylPREDNISolone SOD SUCC 40 MG/ML VL IV SCH (05:57)
[2024-03-15] MEDS: ASPirin 81 mg TAB PO SCH (09:42)
[2024-03-15] MEDS: FAMOTIDINE (10MG/ML) 2ML VL IV SCH (09:42)
[2024-03-15 12:05] LABS: Amphetamine Screen, Urine Neg (NEGATIVE); Barbiturate Scree,Urine Neg (NEGATIVE); Benzodiazephine Screen, Urine Neg (NEGATIVE); Cocaine Screen, Urine Neg (NEGATIVE); Opiate Scree,Urine Neg (NEGATIVE)
[2024-03-15 12:06] LABS: Cannabinoid Screen, Urine Neg (NEGATIVE); Phencyclidine Screen, Urine Neg (NEGATIVE)
[2024-03-15 12:33] LABS: Urine Amorphous Crystal MOD /hpf (None Seen); Urine Bacteria FEW /hpf (None Seen); Urine Blood Negative /uL (Negative); Urine Color Light-Yellow (Yellow); Urine Protein, UAD Negative (Negative); Urine Specific Gravity 1.017 (1.001-1.035); Urine Urobilinogen Normal (Negative); Urine WBC 3 /hpf (0 - 5); Urine pH 6.5 (5.0-9.0)
[2024-03-15 12:35] LABS: Urine Clarity Cloudy (Clear)
[2024-03-15] MEDS ORDERED: LORA-1121 PO (14:03)
[2024-03-15] MEDS ORDERED: TRAZ-227 PO (14:05)
[2024-03-15] MEDS ORDERED: BENZ1TAB6 PO (14:06)
[2024-03-15] MEDS ORDERED: HAL5T PO (14:08)
[2024-03-15] MEDS: LORazepam 0.5 MG TAB PO PRN (14:51)
[2024-03-15] MEDS: ENOXAPARIN SOD 40 MG/0.4 ML SYRINGE SC ONE (16:45)
[2024-03-15] MEDS: AZITHROMYCIN 500MG/ 250ML 250 ML IV ONE (16:45)
[2024-03-15] MEDS: traZODone HCL 50 MG TAB PO SCH (22:49)
[2024-03-15] MEDS: HALOPERIDOL 1 MG TAB PO SCH (22:51)
[2024-03-16] VITALS (12 sets, daily range): BP systolic 91–116; BP diastolic 58–62; PULSE 55–72; RESP 15–20; TEMP 36.6; O2SAT 95–100
[2024-03-16] MEDS: methylPREDNISolone SOD SUCC 40 MG/ML VL IV SCH (10:10)
[2024-03-16] MEDS: AZITHROMYCIN 500MG/ 250ML 250 ML IV SCH (10:10)
[2024-03-16] MEDS: ENOXAPARIN SOD 40 MG/0.4 ML SYRINGE SC SCH (10:11)
[2024-03-16] MEDS ORDERED: ALBU108A5 IN (10:57)
[2024-03-16] MEDS ORDERED: PRED20TA2 PO (10:57)
[2024-03-16] MEDS: ALBUTEROL SULF 2.5 MG/0.5ML(0.5%) NEB SOLN NEB SCH (15:00)
[2024-03-16] MEDS: IPRATROPIUM BROM 0.5 MG/2.5ML INH SOL NEB SCH (15:00)
[2024-03-17] MEDS ORDERED: FLUoxetine HCL 10 MG CAP PO SCH (10:00)
== END 2024-03-16 16:30 | disposition home or self-care (01) | DRG 140 ==
LOC: EDBD 15:30 → ER 15:30 → TELE 23:18 → TELE-EAST 03-15 01:40
PROVIDERS: ADMIT Nurse Practitioner Family; ATTEND Internal Medicine Pulmonary Disease
DX: J44.1 Chronic obstructive pulmonary disease with (acute) exacerbation (principal); J96.01 Acute respiratory failure with hypoxia; I21.A1 Myocardial infarction type 2; I10 Essential (primary) hypertension; G40.909 Epilepsy, unspecified, not intractable, without status epilepticus; G89.29 Other chronic pain; E07.9 Disorder of thyroid, unspecified; F25.0 Schizoaffective disorder, bipolar type; Z87.891 Personal history of nicotine dependence; Z99.81 Dependence on supplemental oxygen; Z56.0 Unemployment, unspecified
CPT/HCPCS: 36415; 36600; 71045; 80053; 80307; 81001; 82805; 83880; 84484; 85025; 85379; 85610; 85730; 87081; 93005; 93306; 94640; 96372; 96374; G0378; J3490

== ENCOUNTER 2024-03-27 20:44 | Inpatient (IN) | payer MEDICAID ==
[~2024-03-27] VITALS: Ht 154.9 cm; Wt 60.0 kg
[~2024-03-27 20:44] MED LIST changes: +BENZ1TAB6 PO; +HAL5T PO; +LORA-1121 PO; +PRED20TA2 PO; +TRAZ-227 PO
[2024-03-27] MEDS: SODIUM CHLORIDE 0.9% 1,000 ML IV ONE (21:40)
[2024-03-27 21:58] LABS: Basophils # (auto) 0 10 ^3/uL (0-0.2); Basophils % (auto) 0.5 % (0.0-2.0); Eosinophils # (auto) 0.1 10 ^3/uL (0-0.8); Eosinophils % (auto) 2.6 % (0.0-7.0); Hematocrit 34.4 % (36.0-46.0); Hemoglobin 11.3 g/dL (12.2-16.2); Lymphocytes # (auto) 0.4 10 ^3/uL (0.4-5.4); Lymphocytes % (auto) 14.6 % (10.0-50.0); Mean Corpuscular Hemoglobin 30.3 pg (28.0-32.0); Mean Corpuscular Hgb Conc. 32.7 g/dL (32.0-36.0); Mean Corpuscular Volume 92.7 fL (80.0-100.0); Monocytes # (auto) 0.4 10 ^3/uL (0-1.3); Monocytes % (auto) 14.9 % (0.0-12.0); Neutrophils % (auto) 67.4 % (37.0-80.0); Nucleated Red Blood Cells % 0.1 %; Red Blood Cells 3.72 10^6/uL (4.0-5.20); Red Cell Distribution Width 16.4 % (11.8-14.3)
[2024-03-27 22:02] LABS: Chloride 102 mmol/L (98-107); Potassium 4.2 mmol/L (3.5-5.1); Sodium 131 mmol/L (136-145)
[2024-03-27 22:03] LABS: Carbon Dioxide 30 mmol/L (20-30)
[2024-03-27 22:04] LABS: Calcium 8.1 mg/dL (8.7-10.4)
[2024-03-27 22:08] LABS: Glucose 84 mg/dL (74-106)
[2024-03-27 22:10] LABS: Anion Gap -1 (5-15); BUN/Creatinine Ratio 10.6 (10.0-20.0); Blood Urea Nitrogen < 5 mg/dL (9-23)
[2024-03-28] VITALS (15 sets, daily range): PULSE 70–88; RESP 20–72; O2SAT 94–100
[2024-03-28] MEDS: diphenhdrAMINE HCL 50 MG/1 ML VL IV ONE (02:15)
[2024-03-28] MEDS: SODIUM CHLORIDE 0.9% 1,000 ML IV ONE ×2 (02:30→04:53)
[2024-03-28] MEDS: HALOPERIDOL LACTATE 5 MG/ML INJ VIAL IM ONE ×2 (03:25→03:41)
[2024-03-28] MEDS: LORazepam 2MG/ML-1ML VIAL IV ONE (04:32)
[2024-03-28 04:41] LABS: Urine Bacteria FEW /hpf (None Seen); Urine Blood 1+ /uL (Negative); Urine Clarity Clear (Clear); Urine Color Colorless (Yellow); Urine Protein, UAD Negative (Negative); Urine Specific Gravity 1.006 (1.001-1.035); Urine Urobilinogen Normal (Negative); Urine WBC 26 /hpf (0 - 5); Urine pH 6.5 (5.0-9.0)
[2024-03-28] MEDS: cefTRIAXone 1GM/50ML D5W 50 ML IV ONE (06:06)
[2024-03-28] MEDS: NOREPINEPHRINE 8 MG/250ML KIT 250 ML IV SCH (06:25)
[2024-03-28] MEDS: DOPamine 1600MCG/ML D5W 250 ML IV ONE (07:00)
[2024-03-28] MEDS ORDERED: NITROGLYCERIN 0.4 MG SL TAB SL PRN (08:45)
[2024-03-28] MEDS ORDERED: CYCLOBENZAPRINE HCL 10 MG TAB PO PRN (08:45)
[2024-03-28] MEDS ORDERED: MORPHINE SULFATE INJ 2 MG/ml SYRG IV PRN (08:45)
[2024-03-28] MEDS: cefTRIAXone 1GM/50ML D5W 50 ML IV SCH (09:00)
[2024-03-28 09:03] LABS: Hematocrit 36.1 % (36.0-46.0); Hemoglobin 11.7 g/dL (12.2-16.2); Mean Corpuscular Hemoglobin 30.4 pg (28.0-32.0); Mean Corpuscular Hgb Conc. 32.3 g/dL (32.0-36.0); Mean Corpuscular Volume 94.1 fL (80.0-100.0); Red Blood Cells 3.84 10^6/uL (4.0-5.20); Red Cell Distribution Width 16.8 % (11.8-14.3); White Blood Cell 3.1 10^3/uL (4.4-10.8)
[2024-03-28 09:13] LABS: Basophils % (manual) 0 (0.0-2.0); Blast Cells 0; Metamyelocytes % 0; Myelocytes % 0; Promyelocytes % 0; Reactive Lymphocytes 0
[2024-03-28 09:17] LABS: Chloride 109 mmol/L (98-107); Potassium 4.4 mmol/L (3.5-5.1); Sodium 140 mmol/L (136-145)
[2024-03-28 09:18] LABS: Anion Gap 4 (5-15); Calcium 8.8 mg/dL (8.7-10.4); Carbon Dioxide 27 mmol/L (20-30)
[2024-03-28 09:23] LABS: Glucose 81 mg/dL (74-106)
[2024-03-28 09:24] LABS: Band Neutrophils % (manual) 9; Eosinophils % (manual) 3 (0-7); Lymphocytes % (manual) 15 (10.0-50.0); Monocytes % (manual) 21 (0-12)
[2024-03-28 09:25] LABS: Anisocytosis Slight; BUN/Creatinine Ratio 10.4 (10.0-20.0); Blood Urea Nitrogen < 5 mg/dL (9-23); Platelet Estimate Decreased
[2024-03-28] MEDS: MUPIROCIN 2% OINT 15gm or 22gm EACHNOSTRI SCH (10:00)
[2024-03-28] MEDS: SODIUM CHLORIDE 0.9% 1,000 ML IV SCH (10:00)
[2024-03-28] MEDS: IPRATROPIUM BROM 0.5 MG/2.5ML INH SOL NEB SCH (10:23)
[2024-03-28] MEDS: ALBUTEROL SULF 2.5 MG/0.5ML(0.5%) NEB SOLN NEB SCH (10:23)
[2024-03-28] MEDS: BENZTROPINE MESY 0.5 MG TAB PO SCH (11:11)
[2024-03-28] MEDS: CALCIUM W/VIT D (600MG/400IU) TAB PO ONE (11:12)
[2024-03-28] MEDS: HALOPERIDOL 1 MG TAB PO SCH (11:12)
[2024-03-28] MEDS: CALCIUM W/VIT D (600MG/400IU) TAB PO SCH (18:18)
[2024-03-28] MEDS: LORazepam 0.5 MG TAB PO PRN (23:18)
[2024-03-28] MEDS: traZODone HCL 50 MG TAB PO SCH (23:19)
[2024-03-29] VITALS (16 sets, daily range): PULSE 54–78; RESP 6–24; O2SAT 94–100
[2024-03-29 04:09] LABS: Basophils # (auto) 0 10 ^3/uL (0-0.2); Basophils % (auto) 0.6 % (0.0-2.0); Eosinophils # (auto) 0.1 10 ^3/uL (0-0.8); Eosinophils % (auto) 2.3 % (0.0-7.0); Hematocrit 37.6 % (36.0-46.0); Hemoglobin 12.4 g/dL (12.2-16.2); Lymphocytes # (auto) 0.5 10 ^3/uL (0.4-5.4); Lymphocytes % (auto) 12.3 % (10.0-50.0); Mean Corpuscular Hemoglobin 30.8 pg (28.0-32.0); Mean Corpuscular Volume 93.4 fL (80.0-100.0); Monocytes # (auto) 0.7 10 ^3/uL (0-1.3); Monocytes % (auto) 16.2 % (0.0-12.0); Neutrophils % (auto) 68.6 % (37.0-80.0); Nucleated Red Blood Cells % 0.1 %; Red Blood Cells 4.03 10^6/uL (4.0-5.20); Red Cell Distribution Width 16.6 % (11.8-14.3); White Blood Cell 4.3 10^3/uL (4.4-10.8)
[2024-03-29 04:31] LABS: Albumin 3.5 g/dL (3.2-4.8); Alkaline Phosphatase 62 U/L (46-116); Anion Gap 4 (5-15); Aspartate Aminotransferase < 8 U/L (13-40); Calcium 9.2 mg/dL (8.7-10.4); Carbon Dioxide 31 mmol/L (20-30); Chloride 104 mmol/L (98-107); Glucose 112 mg/dL (74-106); Sodium 139 mmol/L (136-145)
[2024-03-29 04:32] LABS: Alanine Aminotransferase < 9 U/L (7-40); BUN/Creatinine Ratio 11.6 (10.0-20.0); Bilirubin, Total 0.3 mg/dL (0.2-1.0); Blood Urea Nitrogen < 5 mg/dL (9-23)
[2024-03-29 17:15] LABS: Amphetamine Screen, Urine Neg (NEGATIVE); Barbiturate Scree,Urine Neg (NEGATIVE); Benzodiazephine Screen, Urine Neg (NEGATIVE); Cannabinoid Screen, Urine Neg (NEGATIVE); Cocaine Screen, Urine Neg (NEGATIVE); Opiate Scree,Urine Neg (NEGATIVE); Phencyclidine Screen, Urine Neg (NEGATIVE)
[2024-03-29] MEDS ORDERED: VANCOMYCIN PER PHARMACY 0 MG IV SCH (17:15)
[2024-03-29] MEDS: PIPERACILLIN-TAZOB 3.375GM 100 ML IV ONE (17:28)
[2024-03-29] MEDS: VANCOMYCIN 1GM/200ML 200 ML IV ONE (18:53)
[2024-03-30] VITALS (12 sets, daily range): PULSE 53–72; RESP 10–18; O2SAT 97–100
[2024-03-30] MEDS: PIPERACILLIN-TAZOB 3.375GM 100 ML IV SCH (01:36)
[2024-03-30 05:08] LABS: Basophils # (auto) 0 10 ^3/uL (0-0.2); Basophils % (auto) 0.8 % (0.0-2.0); Eosinophils # (auto) 0.1 10 ^3/uL (0-0.8); Eosinophils % (auto) 3.2 % (0.0-7.0); Hematocrit 37.9 % (36.0-46.0); Hemoglobin 12.7 g/dL (12.2-16.2); Mean Corpuscular Hemoglobin 31.4 pg (28.0-32.0); Mean Corpuscular Hgb Conc. 33.4 g/dL (32.0-36.0); Monocytes # (auto) 0.5 10 ^3/uL (0-1.3); Monocytes % (auto) 16.4 % (0.0-12.0); Neutrophils # (auto) 1.5 10 ^3/uL (1.6-8.6); Neutrophils % (auto) 47.6 % (37.0-80.0); Nucleated Red Blood Cells % 0.1 %; Red Blood Cells 4.04 10^6/uL (4.0-5.20); Red Cell Distribution Width 16.5 % (11.8-14.3); White Blood Cell 3.1 10^3/uL (4.4-10.8)
[2024-03-30 05:14] LABS: Albumin 3.6 g/dL (3.2-4.8); Alkaline Phosphatase 60 U/L (46-116); Anion Gap 2 (5-15); Aspartate Aminotransferase < 8 U/L (13-40); Bilirubin, Total 0.2 mg/dL (0.2-1.0); Calcium 9.4 mg/dL (8.7-10.4); Carbon Dioxide 34 mmol/L (20-30); Chloride 105 mmol/L (98-107); Glucose 114 mg/dL (74-106); Sodium 141 mmol/L (136-145); Total Protein 5.1 g/dL (5.7-8.2)
[2024-03-30 05:18] LABS: Alanine Aminotransferase < 9 U/L (7-40); Blood Urea Nitrogen < 5 mg/dL (9-23)
[2024-03-30] MEDS: PANTOPRAZOLE 40 MG TAB PO SCH (06:00)
[2024-03-30] MEDS: ALBUTEROL SULF 2.5 MG/0.5ML(0.5%) NEB SOLN ONE (06:52)
[2024-03-30] MEDS: IPRATROPIUM BROM 0.5 MG/2.5ML INH SOL ONE (06:52)
[2024-03-30] MEDS ORDERED: VANCOMYCIN 750mg/150ml 150 ML IV SCH (12:00)
[2024-03-30] MEDS: MEROPENEM 1GM IVPB 50 ML IV SCH (14:00)
[2024-03-30] MEDS: HALOPERIDOL LACTATE 5 MG/ML INJ VIAL IV ONE (21:43)
[2024-03-31] VITALS (13 sets, daily range): BP systolic 114; BP diastolic 56; PULSE 54–70; RESP 18–19; O2SAT 94–100
[2024-03-31 06:09] LABS: Hematocrit 37.3 % (36.0-46.0); Hemoglobin 12.6 g/dL (12.2-16.2); Mean Corpuscular Hemoglobin 31.6 pg (28.0-32.0); Mean Corpuscular Hgb Conc. 33.8 g/dL (32.0-36.0); Mean Corpuscular Volume 93.5 fL (80.0-100.0); Red Blood Cells 3.98 10^6/uL (4.0-5.20); Red Cell Distribution Width 16.6 % (11.8-14.3); White Blood Cell 3.1 10^3/uL (4.4-10.8)
[2024-03-31 06:18] LABS: Albumin 3.5 g/dL (3.2-4.8); Alkaline Phosphatase 57 U/L (46-116); Anion Gap 1 (5-15); Aspartate Aminotransferase < 8 U/L (13-40); Bilirubin, Total 0.3 mg/dL (0.2-1.0); Calcium 9.2 mg/dL (8.7-10.4); Carbon Dioxide 34 mmol/L (20-30); Chloride 106 mmol/L (98-107); Glucose 131 mg/dL (74-106); Magnesium 1.6 mg/dL (1.6-2.6); Phosphorus 4.2 mg/dL (2.4-5.1); Potassium 4.1 mmol/L (3.5-5.1); Sodium 141 mmol/L (136-145)
[2024-03-31 06:28] LABS: Alanine Aminotransferase < 9 U/L (7-40); BUN/Creatinine Ratio 9.6 (10.0-20.0); Blood Urea Nitrogen < 5 mg/dL (9-23)
[2024-03-31 06:40] LABS: Band Neutrophils % (manual) 0; Basophils % (manual) 0 (0.0-2.0); Blast Cells 0; Metamyelocytes % 0; Myelocytes % 0; Promyelocytes % 0; Reactive Lymphocytes 0
[2024-03-31 08:21] LABS: Eosinophils % (manual) 4 (0-7); Lymphocytes % (manual) 24 (10.0-50.0); Monocytes % (manual) 16 (0-12); Platelet Estimate Adequate
[2024-03-31] MEDS: ACETAMINOPHEN 325 MG TAB PO PRN (08:50)
[2024-04-01] VITALS (14 sets, daily range): PULSE 60–86; RESP 14–20; O2SAT 95–100
[2024-04-01 04:51] LABS: Hemoglobin 12.8 g/dL (12.2-16.2); Mean Corpuscular Hemoglobin 31.5 pg (28.0-32.0); Mean Corpuscular Hgb Conc. 33.6 g/dL (32.0-36.0); Mean Corpuscular Volume 93.7 fL (80.0-100.0); Red Blood Cells 4.06 10^6/uL (4.0-5.20); Red Cell Distribution Width 16.4 % (11.8-14.3); White Blood Cell 3.6 10^3/uL (4.4-10.8)
[2024-04-01 05:05] LABS: Chloride 106 mmol/L (98-107); Potassium 4.1 mmol/L (3.5-5.1); Sodium 141 mmol/L (136-145)
[2024-04-01 05:06] LABS: Anion Gap 2 (5-15); Calcium 9.1 mg/dL (8.7-10.4); Carbon Dioxide 33 mmol/L (20-30)
[2024-04-01 05:10] LABS: Band Neutrophils % (manual) 0; Basophils % (manual) 0 (0.0-2.0); Blast Cells 0; Metamyelocytes % 0; Myelocytes % 0; Promyelocytes % 0; Reactive Lymphocytes 0
[2024-04-01 05:11] LABS: Glucose 143 mg/dL (74-106)
[2024-04-01 05:29] LABS: BUN/Creatinine Ratio 10.4 (10.0-20.0); Blood Urea Nitrogen < 5 mg/dL (9-23)
[2024-04-01 08:33] LABS: Eosinophils % (manual) 7 (0-7); Lymphocytes % (manual) 35 (10.0-50.0); Monocytes % (manual) 18 (0-12); Platelet Estimate Adequate
[2024-04-01] MEDS: ENOXAPARIN SOD 30 MG/0.3 ML SYRINGE SC SCH (12:23)
[2024-04-01] MEDS: HALOPERIDOL 5 MG TAB PO PRN (22:57)
[2024-04-02] VITALS (64 sets, daily range): BP systolic 79–141; BP diastolic 35–64; PULSE 40–94; RESP 10–25; TEMP 98.1–98.4; O2SAT 91–100
[2024-04-02] MEDS: ALBUTEROL SULF 2.5 MG/0.5ML(0.5%) NEB SOLN NEB PRN (04:08)
[2024-04-02 07:44] LABS: Basophils # (auto) 0 10 ^3/uL (0-0.2); Eosinophils # (auto) 0.1 10 ^3/uL (0-0.8); Eosinophils % (auto) 3.6 % (0.0-7.0); Hematocrit 39.3 % (36.0-46.0); Hemoglobin 13.2 g/dL (12.2-16.2); Lymphocytes # (auto) 1.2 10 ^3/uL (0.4-5.4); Lymphocytes % (auto) 40.7 % (10.0-50.0); Mean Corpuscular Hemoglobin 31.2 pg (28.0-32.0); Mean Corpuscular Hgb Conc. 33.5 g/dL (32.0-36.0); Mean Corpuscular Volume 93.3 fL (80.0-100.0); Monocytes # (auto) 0.5 10 ^3/uL (0-1.3); Monocytes % (auto) 16.1 % (0.0-12.0); Neutrophils # (auto) 1.1 10 ^3/uL (1.6-8.6); Neutrophils % (auto) 38.6 % (37.0-80.0); Nucleated Red Blood Cells % 0.1 %; Red Blood Cells 4.21 10^6/uL (4.0-5.20); Red Cell Distribution Width 16.5 % (11.8-14.3); White Blood Cell 2.8 10^3/uL (4.4-10.8)
[2024-04-02] MEDS: MIDODRINE HCL 10 MG TAB PO ONE (07:50)
[2024-04-02 07:52] LABS: Chloride 105 mmol/L (98-107); Potassium 4.2 mmol/L (3.5-5.1); Sodium 142 mmol/L (136-145)
[2024-04-02 07:53] LABS: Anion Gap 3 (5-15); Carbon Dioxide 34 mmol/L (20-30)
[2024-04-02 07:54] LABS: Calcium 9.4 mg/dL (8.7-10.4)
[2024-04-02 07:59] LABS: Glucose 103 mg/dL (74-106)
[2024-04-02 08:03] LABS: BUN/Creatinine Ratio 8.9 (10.0-20.0); Blood Urea Nitrogen < 5 mg/dL (9-23)
[2024-04-02] MEDS ORDERED: HALOPERIDOL 5 MG TAB PO PRN (10:00)
[2024-04-02] MEDS: MIDODRINE HCL 10 MG TAB PO SCH (11:04)
[2024-04-02] MEDS: HALOPERIDOL 5 MG TAB PO SCH (14:05)
[2024-04-03] VITALS (107 sets, daily range): BP systolic 73–134; BP diastolic 28–79; PULSE 42–84; RESP 11–27; TEMP 98–98.9; O2SAT 87–100
[2024-04-03 03:58] LABS: Basophils # (auto) 0 10 ^3/uL (0-0.2); Basophils % (auto) 0.7 % (0.0-2.0); Eosinophils # (auto) 0.1 10 ^3/uL (0-0.8); Eosinophils % (auto) 4.3 % (0.0-7.0); Hematocrit 34.3 % (36.0-46.0); Hemoglobin 11.8 g/dL (12.2-16.2); Lymphocytes # (auto) 1.2 10 ^3/uL (0.4-5.4); Lymphocytes % (auto) 38.4 % (10.0-50.0); Mean Corpuscular Hemoglobin 31.9 pg (28.0-32.0); Mean Corpuscular Hgb Conc. 34.2 g/dL (32.0-36.0); Mean Corpuscular Volume 93.1 fL (80.0-100.0); Monocytes # (auto) 0.6 10 ^3/uL (0-1.3); Monocytes % (auto) 17.7 % (0.0-12.0); Neutrophils # (auto) 1.2 10 ^3/uL (1.6-8.6); Neutrophils % (auto) 38.9 % (37.0-80.0); Red Blood Cells 3.69 10^6/uL (4.0-5.20); White Blood Cell 3.2 10^3/uL (4.4-10.8)
[2024-04-03 04:12] LABS: INR 1.17 (0.9-1.15); Prothrombin Time 12.3 sec (9.3-11.8)
[2024-04-03 04:24] LABS: Chloride 108 mmol/L (98-107); Potassium 4.1 mmol/L (3.5-5.1); Sodium 141 mmol/L (136-145)
[2024-04-03 04:25] LABS: Anion Gap 0 (5-15); Calcium 8.9 mg/dL (8.7-10.4); Carbon Dioxide 33 mmol/L (20-30)
[2024-04-03 04:30] LABS: BUN/Creatinine Ratio 12.5 (10.0-20.0); Blood Urea Nitrogen 6 mg/dL (9-23); Glucose 92 mg/dL (74-106)
[2024-04-03] MEDS: SODIUM CHLORIDE 0.9% 1,000 ML IV SCH (07:00)
[2024-04-03] MEDS: ENOXAPARIN SOD 40 MG/0.4 ML SYRINGE SC SCH (09:20)
[2024-04-03] MEDS: NOREPINEPHRINE 8 MG/250ML KIT 250 ML IV SCH (11:15)
[2024-04-03] MEDS: LIDOCAINE 1% (LOCAL ANESTH.) PF 5ml SDV ID ONE (17:57)
[2024-04-03] MEDS: traZODone HCL 50 MG TAB PO SCH (21:09)
[2024-04-03] MEDS: SODIUM CHLOR 0.9% PF (SALINE LOCK) 10ML VIAL/SYR IV SCH (21:10)
[2024-04-04] VITALS (92 sets, daily range): BP systolic 79–138; BP diastolic 32–65; PULSE 48–95; RESP 13–27; TEMP 97.6–98.6; O2SAT 78–99
[2024-04-04 03:54] LABS: Basophils # (auto) 0 10 ^3/uL (0-0.2); Basophils % (auto) 0.5 % (0.0-2.0); Eosinophils # (auto) 0.1 10 ^3/uL (0-0.8); Hematocrit 33.2 % (36.0-46.0); Hemoglobin 11.2 g/dL (12.2-16.2); Lymphocytes # (auto) 1.2 10 ^3/uL (0.4-5.4); Lymphocytes % (auto) 33.6 % (10.0-50.0); Mean Corpuscular Hgb Conc. 33.7 g/dL (32.0-36.0); Monocytes # (auto) 0.6 10 ^3/uL (0-1.3); Monocytes % (auto) 15.8 % (0.0-12.0); Neutrophils # (auto) 1.7 10 ^3/uL (1.6-8.6); Neutrophils % (auto) 47.1 % (37.0-80.0); Red Blood Cells 3.61 10^6/uL (4.0-5.20); Red Cell Distribution Width 16.4 % (11.8-14.3); White Blood Cell 3.6 10^3/uL (4.4-10.8)
[2024-04-04 04:02] LABS: Chloride 107 mmol/L (98-107); Potassium 3.7 mmol/L (3.5-5.1); Sodium 142 mmol/L (136-145)
[2024-04-04 04:03] LABS: Anion Gap 3 (5-15); Calcium 8.7 mg/dL (8.7-10.4); Carbon Dioxide 32 mmol/L (20-30)
[2024-04-04 04:08] LABS: BUN/Creatinine Ratio 14.8 (10.0-20.0); Blood Urea Nitrogen 8 mg/dL (9-23); Glucose 111 mg/dL (74-106)
[2024-04-05] VITALS (17 sets, daily range): BP systolic 90–141; BP diastolic 42–82; PULSE 50–77; RESP 14–20; TEMP 97.3–98.7; O2SAT 94–100
[2024-04-05 09:04] LABS: Basophils # (auto) 0 10 ^3/uL (0-0.2); Basophils % (auto) 0.4 % (0.0-2.0); Eosinophils # (auto) 0.1 10 ^3/uL (0-0.8); Eosinophils % (auto) 2.5 % (0.0-7.0); Hematocrit 36.7 % (36.0-46.0); Hemoglobin 12.3 g/dL (12.2-16.2); Lymphocytes # (auto) 0.8 10 ^3/uL (0.4-5.4); Mean Corpuscular Hemoglobin 31.1 pg (28.0-32.0); Mean Corpuscular Hgb Conc. 33.4 g/dL (32.0-36.0); Monocytes # (auto) 0.4 10 ^3/uL (0-1.3); Monocytes % (auto) 9.2 % (0.0-12.0); Neutrophils # (auto) 2.7 10 ^3/uL (1.6-8.6); Neutrophils % (auto) 67.9 % (37.0-80.0); Nucleated Red Blood Cells % 0.1 %; Red Blood Cells 3.95 10^6/uL (4.0-5.20); Red Cell Distribution Width 16.3 % (11.8-14.3)
[2024-04-05 09:12] LABS: Chloride 107 mmol/L (98-107); Sodium 142 mmol/L (136-145)
[2024-04-05 09:13] LABS: Anion Gap 7 (5-15); Calcium 9.2 mg/dL (8.7-10.4); Carbon Dioxide 28 mmol/L (20-30)
[2024-04-05 09:18] LABS: Glucose 81 mg/dL (74-106)
[2024-04-05 09:55] LABS: BUN/Creatinine Ratio 11.4 (10.0-20.0); Blood Urea Nitrogen < 5 mg/dL (9-23)
[2024-04-06] VITALS (16 sets, daily range): BP systolic 96–121; BP diastolic 45–70; PULSE 65–80; RESP 14–20; TEMP 97.8–98.3; O2SAT 93–100
[2024-04-06] MEDS: MEROPENEM 1GM IVPB 50 ML IV SCH (01:38)
[2024-04-06 06:48] LABS: Basophils # (auto) 0 10 ^3/uL (0-0.2); Basophils % (auto) 0.5 % (0.0-2.0); Eosinophils # (auto) 0.1 10 ^3/uL (0-0.8); Eosinophils % (auto) 3.2 % (0.0-7.0); Hematocrit 33.3 % (36.0-46.0); Hemoglobin 11.3 g/dL (12.2-16.2); Lymphocytes # (auto) 0.9 10 ^3/uL (0.4-5.4); Mean Corpuscular Hemoglobin 31.1 pg (28.0-32.0); Mean Corpuscular Hgb Conc. 33.9 g/dL (32.0-36.0); Mean Corpuscular Volume 91.5 fL (80.0-100.0); Monocytes # (auto) 0.4 10 ^3/uL (0-1.3); Monocytes % (auto) 10.3 % (0.0-12.0); Neutrophils # (auto) 2.3 10 ^3/uL (1.6-8.6); Nucleated Red Blood Cells % 0.1 %; Red Blood Cells 3.64 10^6/uL (4.0-5.20); Red Cell Distribution Width 16.2 % (11.8-14.3); White Blood Cell 3.7 10^3/uL (4.4-10.8)
[2024-04-06 06:58] LABS: Anion Gap 5 (5-15); Calcium 9.1 mg/dL (8.7-10.4); Carbon Dioxide 31 mmol/L (20-30); Chloride 105 mmol/L (98-107); Potassium 3.6 mmol/L (3.5-5.1); Sodium 141 mmol/L (136-145)
[2024-04-06 07:04] LABS: Glucose 77 mg/dL (74-106)
[2024-04-06 07:07] LABS: BUN/Creatinine Ratio 11.6 (10.0-20.0); Blood Urea Nitrogen < 5 mg/dL (9-23)
== END 2024-04-06 17:20 | DRG 720 ==
LOC: ER 20:44 → EDBD 20:44 → TELE 03-28 08:36 → ICU WEST 04-01 14:34 → TELE 04-01 14:57 → ICU WEST 04-02 10:25 → TELE-WESTW 04-04 20:10 → WEST WING 04-06 14:41
PROVIDERS: ADMIT Internal Medicine; ATTEND Internal Medicine
PROC: 06HY33Z Insertion of Infusion Device into Lower Vein, Percutaneous Approach (ICD-10-PCS; principal; 2024-03-30)
PROC: 02HV33Z Insertion of Infusion Device into Superior Vena Cava, Percutaneous Approach (ICD-10-PCS; 2024-04-03)
PROC: B548ZZA Ultrasonography of Superior Vena Cava, Guidance (ICD-10-PCS; 2024-04-03)
DX: A41.59 Other Gram-negative sepsis (principal); J96.21 Acute and chronic respiratory failure with hypoxia; R65.21 Severe sepsis with septic shock; D61.818 Other pancytopenia; E83.51 Hypocalcemia; E87.1 Hypo-osmolality and hyponatremia; E86.0 Dehydration; J44.9 Chronic obstructive pulmonary disease, unspecified; F41.9 Anxiety disorder, unspecified; G89.29 Other chronic pain; N30.00 Acute cystitis without hematuria; F20.9 Schizophrenia, unspecified; K80.20 Calculus of gallbladder without cholecystitis without obstruction; Z16.12 Extended spectrum beta lactamase (ESBL) resistance; Z99.81 Dependence on supplemental oxygen; Z87.891 Personal history of nicotine dependence; Z79.899 Other long term (current) drug therapy
CPT/HCPCS: 36415; 36569; 71045; 74176; 80048; 80053; 80202; 80307; 81001; 82306; 82607; 83036; 83605; 83735; 83880; 84100; 84443; 84484; 85007; 85025; 85027; 85610; 87040; 87081; 87086; 87088; 87186; 92610; 94640; 96361; 96365; 96372; 96375; 97163; G0378; J2185; J2543

== ENCOUNTER 2024-07-05 21:50 | Inpatient (IN) | payer MEDICAID ==
[~2024-07-05] VITALS: Ht 167.6 cm; Wt 50.0 kg
[2024-07-05 23:25] LABS: Basophils # (auto) 0 10 ^3/uL (0-0.2); Basophils % (auto) 0.4 % (0.0-2.0); Eosinophils # (auto) 0.1 10 ^3/uL (0-0.8); Eosinophils % (auto) 2.3 % (0.0-7.0); Hematocrit 38.8 % (36.0-46.0); Hemoglobin 13.1 g/dL (12.2-16.2); Lymphocytes # (auto) 0.6 10 ^3/uL (0.4-5.4); Lymphocytes % (auto) 20.2 % (10.0-50.0); Mean Corpuscular Hemoglobin 31.4 pg (28.0-32.0); Mean Corpuscular Hgb Conc. 33.6 g/dL (32.0-36.0); Mean Corpuscular Volume 93.3 fL (80.0-100.0); Monocytes # (auto) 0.2 10 ^3/uL (0-1.3); Monocytes % (auto) 7.9 % (0.0-12.0); Neutrophils # (auto) 2.2 10 ^3/uL (1.6-8.6); Neutrophils % (auto) 69.2 % (37.0-80.0); Platelet Count (auto) 133 10^3/uL (140-450); Red Blood Cells 4.16 10^6/uL (4.0-5.20); Red Cell Distribution Width 15.1 % (11.8-14.3); White Blood Cell 3.1 10^3/uL (4.4-10.8)
[2024-07-05 23:41] LABS: Alanine Aminotransferase 12 U/L (7-40); Albumin 4.2 g/dL (3.2-4.8); Alkaline Phosphatase 68 U/L (46-116); Anion Gap 1 (5-15); Aspartate Aminotransferase 11 U/L (13-40); BUN/Creatinine Ratio 16.7 (10.0-20.0); Blood Urea Nitrogen 9 mg/dL (9-23); Calcium 9.2 mg/dL (8.7-10.4); Carbon Dioxide 27 mmol/L (20-31); Chloride 96 mmol/L (98-107); Glucose 93 mg/dL (74-106); Lipase 21 U/L (12-53); Potassium 4.8 mmol/L (3.5-5.1); Sodium 124 mmol/L (136-145)
[2024-07-05 23:42] LABS: Bilirubin, Total 0.3 mg/dL (0.2-1.0); Total Protein 5.5 g/dL (5.7-8.2)
[2024-07-06] VITALS (9 sets, daily range): BP systolic 103–122; BP diastolic 55–70; PULSE 84–96; RESP 16–20; TEMP 97.5–97.8; O2SAT 96–100
[2024-07-06] MEDS: SODIUM CHLORIDE 0.9% 1,000 ML IV ONE (04:40)
[2024-07-06] MEDS: MORPHINE SULFATE 4 MG/ML SYR/VIAL IV ONE (04:40)
[2024-07-06] MEDS: ONDANSETRON HCL 4 MG/2 ML VIAL IV ONE (04:41)
[2024-07-06] MEDS ORDERED: MORPHINE SULFATE INJ 2 MG/ml SYRG IV PRN (07:15)
[2024-07-06 09:12] LABS: Urine Bacteria FEW /hpf (None Seen); Urine Blood Negative /uL (Negative); Urine Protein, UAD Negative (Negative); Urine Specific Gravity 1.004 (1.001-1.035); Urine Urobilinogen Normal (Negative); Urine WBC 21 /hpf (0 - 5); Urine pH 6.5 (5.0-9.0)
[2024-07-06 09:13] LABS: Urine Clarity Hazy (Clear); Urine Color Light-Yellow (Yellow)
[2024-07-06] MEDS: SODIUM CHLORIDE 0.9% 1,000 ML IV SCH (20:13)
[2024-07-06] MEDS: BENZTROPINE MESY 0.5 MG TAB PO SCH (22:57)
[2024-07-06] MEDS: HALOPERIDOL 1 MG TAB PO SCH (22:57)
[2024-07-06] MEDS: traZODone HCL 50 MG TAB PO SCH (22:59)
[2024-07-07] VITALS (11 sets, daily range): BP systolic 102–112; BP diastolic 48–67; PULSE 83–99; RESP 17–18; TEMP 97.5–98.2; O2SAT 95–99
[2024-07-07 05:26] LABS: Basophils # (auto) 0 10 ^3/uL (0-0.2); Basophils % (auto) 0.6 % (0.0-2.0); Eosinophils # (auto) 0.1 10 ^3/uL (0-0.8); Hematocrit 39.1 % (36.0-46.0); Lymphocytes # (auto) 0.5 10 ^3/uL (0.4-5.4); Lymphocytes % (auto) 22.5 % (10.0-50.0); Mean Corpuscular Hemoglobin 31.5 pg (28.0-32.0); Mean Corpuscular Hgb Conc. 33.3 g/dL (32.0-36.0); Mean Corpuscular Volume 94.6 fL (80.0-100.0); Monocytes # (auto) 0.3 10 ^3/uL (0-1.3); Monocytes % (auto) 11.5 % (0.0-12.0); Neutrophils # (auto) 1.3 10 ^3/uL (1.6-8.6); Neutrophils % (auto) 61.4 % (37.0-80.0); Platelet Count (auto) 117 10^3/uL (140-450); Red Blood Cells 4.13 10^6/uL (4.0-5.20); Red Cell Distribution Width 15.2 % (11.8-14.3); White Blood Cell 2.2 10^3/uL (4.4-10.8)
[2024-07-07 05:27] LABS: Chloride 102 mmol/L (98-107); Potassium 4.3 mmol/L (3.5-5.1)
[2024-07-07 05:28] LABS: Anion Gap 4 (5-15); Calcium 8.5 mg/dL (8.7-10.4); Carbon Dioxide 29 mmol/L (20-31)
[2024-07-07 05:33] LABS: BUN/Creatinine Ratio 18.2 (10.0-20.0); Blood Urea Nitrogen 8 mg/dL (9-23)
[2024-07-07 05:41] LABS: Sodium 135 mmol/L (136-145)
[2024-07-07 05:44] LABS: Glucose 45 mg/dL (74-106)
[2024-07-07] MEDS: D5W/SOD CHL 0.45% 1,000 ML IV SCH (06:25)
[2024-07-07] MEDS: ACETAMINOPHEN 325 MG TAB PO ONE (07:45)
[2024-07-07] MEDS: GASTROGRAFIN 120 ML SOL ONE (08:33)
[2024-07-07] MEDS: PANTOPRAZOLE 40 MG/10 ML VIAL INJ IV SCH (10:00)
[2024-07-07] MEDS: D5W 5% 1,000 ML IV SCH (10:15)
[2024-07-07] MEDS: ONDANSETRON HCL 4 MG/2 ML VIAL IV PRN (11:37)
[2024-07-08] VITALS (8 sets, daily range): BP systolic 118–124; BP diastolic 34–81; PULSE 78–93; RESP 16–20; TEMP 97.9–98.5; O2SAT 92–100
[2024-07-08] MEDS: IBUPROFEN 400 MG TAB PO ONE (01:08)
[2024-07-08 05:23] LABS: Basophils # (auto) 0 10 ^3/uL (0-0.2); Basophils % (auto) 0.6 % (0.0-2.0); Eosinophils # (auto) 0.1 10 ^3/uL (0-0.8); Eosinophils % (auto) 3.9 % (0.0-7.0); Hematocrit 35.2 % (36.0-46.0); Hemoglobin 11.7 g/dL (12.2-16.2); Lymphocytes # (auto) 0.6 10 ^3/uL (0.4-5.4); Lymphocytes % (auto) 27.6 % (10.0-50.0); Mean Corpuscular Hemoglobin 31.5 pg (28.0-32.0); Mean Corpuscular Hgb Conc. 33.1 g/dL (32.0-36.0); Mean Corpuscular Volume 94.9 fL (80.0-100.0); Monocytes # (auto) 0.4 10 ^3/uL (0-1.3); Monocytes % (auto) 15.7 % (0.0-12.0); Neutrophils # (auto) 1.2 10 ^3/uL (1.6-8.6); Neutrophils % (auto) 52.2 % (37.0-80.0); Nucleated Red Blood Cells % 0.3 %; Platelet Count (auto) 120 10^3/uL (140-450); Red Blood Cells 3.71 10^6/uL (4.0-5.20); Red Cell Distribution Width 15.1 % (11.8-14.3); White Blood Cell 2.3 10^3/uL (4.4-10.8)
[2024-07-08 05:27] LABS: Chloride 99 mmol/L (98-107); Potassium 4.3 mmol/L (3.5-5.1); Sodium 132 mmol/L (136-145)
[2024-07-08 05:28] LABS: Anion Gap 2 (5-15); Carbon Dioxide 31 mmol/L (20-31)
[2024-07-08 05:33] LABS: Glucose 86 mg/dL (74-106)
[2024-07-08 05:34] LABS: BUN/Creatinine Ratio 10.2 (10.0-20.0); Blood Urea Nitrogen < 5 mg/dL (9-23)
[2024-07-08] MEDS: ALBUTEROL SULF 2.5 MG/0.5ML(0.5%) NEB SOLN NEB PRN (06:27)
[2024-07-08] MEDS ORDERED: ACETAMINOPHEN 325 MG TAB PO PRN (07:15)
[2024-07-08] MEDS ORDERED: ZOFR4T PO (15:51)
[2024-07-08] MEDS: HALOPERIDOL LACTATE 5 MG/ML INJ VIAL IM ONE (15:57)
[2024-07-08] MEDS ORDERED: diphenhdrAMINE HCL 50 MG/1 ML VL IV PRN (16:00)
[2024-07-08] MEDS ORDERED: HALOPERIDOL 1 MG TAB PO SCH (22:00)
[2024-07-08] MEDS ORDERED: traZODone HCL 50 MG TAB PO SCH (22:00)
[2024-07-09 11:17] LABS: Anti-Nuclear Antibody Direct Negative (Negative)
[2024-07-09 14:07] LABS: Albumin 3.1 g/dL (2.9-4.4); Alpha-1-Globulin 0.3 g/dL (0.0-0.4); Alpha-2-Globulin 0.7 g/dL (0.4-1.0); Gamma Globulin 0.3 g/dL (0.4-1.8); Globulin Total 2.2 g/dL (2.2-3.9); Protein Total Serum 5.3 g/dL (6.0-8.5)
[2024-07-10 11:07] LABS: CCP IgG/IgA Antibody 2 units (0-19)
== END 2024-07-08 20:05 | disposition home or self-care (01) | DRG 247 ==
LOC: EDBD 21:50 → ER 21:50 → OVERFLOW 07-06 07:04 → CENTRAL 07-06 17:42
PROVIDERS: ADMIT Nurse Practitioner; ATTEND Student in an Organized Health Care Education/Training Program
DX: K56.699 Other intestinal obstruction unspecified as to partial versus complete obstruction (principal); D69.6 Thrombocytopenia, unspecified; R18.8 Other ascites; E87.1 Hypo-osmolality and hyponatremia; D72.819 Decreased white blood cell count, unspecified; F20.9 Schizophrenia, unspecified; J44.9 Chronic obstructive pulmonary disease, unspecified; F31.9 Bipolar disorder, unspecified; E66.9 Obesity, unspecified; Z99.81 Dependence on supplemental oxygen; Z87.891 Personal history of nicotine dependence; Z82.5 Family history of asthma and other chronic lower respiratory diseases; Z81.8 Family history of other mental and behavioral disorders; Z68.1 Body mass index [BMI] 19.9 or less, adult
CPT/HCPCS: 36415; 74176; 74250; 80048; 80053; 81001; 83605; 83615; 83690; 84155; 84165; 84484; 85025; 86038; 86200; 86703; 93005; 94640; 99291; G0378; J2405; J2470

== ENCOUNTER 2024-09-05 19:44 | Emergency (ER) | payer MEDICAID ==
[~2024-09-05] VITALS: Ht 167.6 cm; Wt 54.0 kg
[~2024-09-05 19:44] MED LIST changes: -ALBU108A5 IN; -AZITTAB PO; -CEFP200T15 PO; -CYCL-611 PO; -MUPI2OIN2 EACHNOSTRI; -PRED20TA2 PO; +ZOFR4T PO
--- NOTE | 2024-09-05 20:10 | ED.PDOC ---
HPI Comments 54-year-old female who came to ER via EMS for chest pains. Per EMS, patient was picked up at an assisted care facility, does have history of COPD on 2 liters/minute, schizophrenia and bipolar disorder. Patient was said to be complaining of left sided chest pains since yesterday, described as pressure, nonradiating associated shortness of breath, nausea and vomiting. Upon arrival blood pressure was 126/72 mm Hg, saturating at 98% at 2 liters/minute. 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 Allergies: Coded Allergies: NO KNOWN ALLERGIES (Unverified , 11/11/23) Home Meds Active Scripts Ondansetron Odt 4MG Tab (ZOFRAN PO) 4 Mg Tb, 4 MG PO TIDPRN PRN for 7 Days, #21 TAB ODT TAB-DISSOLVE IN MOUTH, THEN SWALLOW Prov:CHRISTAL ABRAHAM MD 07/08/24 Reported Medications Haloperidol (Haldol) 5 Mg Tb, 3 MG PO BID, MG 03/15/24 Benztropine Mesylate (Benztropine Mesylate) 1 Mg Tab, 1 MG PO BID, MG 03/15/24 Trazodone Hcl (Trazodone Hcl) 50 Mg Tab, 75 MG PO HS, MG 03/15/24 Lorazepam (ATIVAN TABLET) 0.5 Mg Tb, 0.5 MG PO Q4HPRN PRN for ANXIETY, TAB 03/15/24 Information Source: Patient, Emergency Med Personnel Mode of Arrival: EMS Severity: Moderate Timing: Hours Duration: Intermittent Prehospital treatment: 12 Lead EKG, Oxygen Location: Chest (L) Radiation: No Radiation Quality: Pressure Onset: With Light Exertion Cardiac Risk Factors: Other (COPD) PE Risk Factors: None History of: Similar pain in past Modifying Factors: Nothing Associated Signs and Symptoms: SOB Past Medical History PAST MEDICAL HISTORY: COPD, Gallstones, Schizophrenia, UTI'S Surgical History: Denies all surgeries 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: 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 all 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 AND 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 Hx Family History Family History: Reviewed,noncontributory to illness Social History Smoker: Quit Less Than 1 Year, Cigarettes Alcohol: Denies ETOH Use Drugs: Denies Drug Use Lives In: Assisted Care Constitutional: denies: chills, diaphoresis, fatigue, fever, malaise, sweats, weakness, others EENTM: denies: blurred vision, double vision, ear bleeding, ear discharge, ear drainage, ear pain, ear ringing, eye pain, eye redness, hearing loss, mouth pain, mouth swelling, nasal discharge, nose bleeding, nose congestion, nose pain, photophobia, tearing, throat pain, throat swelling, voice changes, others Respiratory: reports: SOB at rest, shortness of breath; denies: cough, hemoptysis, orthopnea, SOB with excertion, stridor, wheezing, others Cardiovascular: reports: chest pain; denies: dizzy spells, diaphoresis, Dyspnea on exertion, edema, irregular heart beat, left arm pain, lightheadedness, palpitations, PND, syncope, others Gastrointestinal: reports: nausea, vomiting; denies: abdomen distended, abdominal pain, blood streaked bowels, constipated, diarrhea, dysphagia, difficulty swallowing, hematemesis, melena, poor appetite, poor fluid intake, rectal bleeding, rectal pain, others Genitourinary: denies: abnormal vagina bleeding, burning, dyspareunia, dysuria, flank pain, frequency, hematuria, incontinence, pain, , vagina discharge, urgency, others Neurological: denies: dizziness, fainting, headache, left sided numbness, left sided weakness, numbness, paresthesia, pre-existing deficit, right sided numbness, right sided weakness, seizure, speech problems, tingling, tremors, weakness, others Musculoskeletal: denies: back pain, gout, joint pain, joint swelling, muscle pain, muscle stiffness, neck pain, others Integumetry: denies: bruises, change in color, change in hair/nails, dryness, laceration, lesions, lumps, rash, wounds, others Allergic/Immunocompromised: denies: Difficulty Healing, Frequent Infections, Hives, Itching, others Hematologic/Lymphatic: denies: anemia, blood clots, easy bleeding, easy bru ising, swollen glands, others Endocrine: denies: excessive hunger, excessive sweating, excessive thirst, e xcessive urination, flushing, intolerance to cold, intolerance to heat, unexplained weight gain, unexplained weight loss, others Psychiatric: denies: anxiety, bipolar disorder, depression, hopeless, panic disorder, schizophrenia, sleepless, suicidal, others Physical Exam General Appearance: No Apparent Distress, Normal HEENT: Normal ENT Inspection, Pharynx Normal, TMs Normal Neck: Full Range of Motion, Non-Tender, Normal, Normal Inspection Respiratory: Chest Non-Tender, Lungs Clear, No Accessory Muscle Use, No Re spiratory Distress, Normal Breath Sounds Cardiovascular: No Edema, No JVD, No Murmur, No Gallop, Normal Peripheral Pulses, Regular Rate/Rhythm Breast Exam: Deferred Gastrointestinal: No Organomegaly, Non Tender, No Pulsatile Mass, Normal Bowel Sounds, Soft Genitalia: Deferred Pelvic: Deferred Rectal: Deferred Extremities: No calf tenderness, Normal capillary refill, Normal inspection, Normal range of motion, Non-tender, No pedal edema Musculoskeletal : Apperance: Normal Neurologic: Alert, 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 Was a procedure done?: No CP Differential Dx Differential Diagnosis: Angina, Anxiety / Panic Attack Differential Diagnosis: Angina, Chest Wall Pain, Costochondritis, Esophageal reflux/spasm, Gastritis, Myocardial Infarction, Pneumonia, Other (COPD exacerbation) X-Ray, Labs, Meds, VS Vital Signs Date Time Temp Pulse Resp B/P (MAP) Pulse Ox O2 Delivery O2 Flow Rate FiO2 09/05/24 22:30 98.2 78 18 136/73 (94) 98 98.2 09/05/24 22:30 98.3 78 18 136/73 (94) 98 98.3 09/05/24 22:30 78 18 98 Room Air* 0 21 09/05/24 19:51 89 09/05/24 19:48 98.4 92 18 126/72 (90) 97 Lab Test 09/05/24 21:16 09/05/24 19:55 Range/Units Troponin I High Sensitivity 5 6 </=34 ng/L White Blood Count 4.3 L 4.4-10.8 10^3/uL Red Blood Count 4.25 4.0-5.20 10^6/uL Hemoglobin 13.0 12.2-16.2 g/dL Hematocrit 39.8 36.0-46.0 % Mean Corpuscular Volume 93.5 80.0-100.0 fL Mean Corpuscular Hemoglobin 30.5 28.0-32.0 pg Mean Corpuscular Hemoglobin Concent 32.6 32.0-36.0 g/dL Red Cell Distribution Width 16.1 H 11.8-14.3 % Platelet Count 123 L 140-450 10^3/uL Mean Platelet Volume 8.2 6.9-10.8 fL Neutrophils (%) (Auto) 63.6 37.0-80.0 % Lymphocytes (%) (Auto) 20.2 10.0-50.0 % Monocytes (%) (Auto) 13.9 H 0.0-12.0 % Eosinophils (%) (Auto) 2.1 0.0-7.0 % Basophils (%) (Auto) 0.2 0.0-2.0 % Neutrophils # (Auto) 2.7 1.6-8.6 10 ^3/uL Lymphocytes # (Auto) 0.9 0.4-5.4 10 ^3/uL Monocytes # (Auto) 0.6 0-1.3 10 ^3/uL Eosinophils # (Auto) 0.1 0-0.8 10 ^3/uL Basophils # (Auto) 0 0-0.2 10 ^3/uL Nucleated Red Blood Cells 0.1 % Sodium Level 130 L 136-145 mmol/L Potassium Level 4.4 3.5-5.1 mmol/L Chloride Level 98 98-107 mmol/L Carbon Dioxide Level 28 20-31 mmol/L Anion Gap 4 L 5-15 Blood Urea Nitrogen 13 9-23 mg/dL Creatinine 0.64 0.550-1.02 mg/dL Glomerular Filtration Rate Calc 104 >90 mL/min BUN/Creatinine Ratio 20.3 H 10.0-20.0 Serum Glucose 93 74-106 mg/dL Calcium Level 9.1 8.7-10.4 mg/dL Total Bilirubin 0.3 0.2-1.0 mg/dL Aspartate Amino Transferase (AST) 10 L 13-40 U/L Alanine Aminotransferase (ALT) 10 7-40 U/L Alkaline Phosphatase 73 46-116 U/L Total Protein 5.5 L 5.7-8.2 g/dL Albumin 4.1 3.2-4.8 g/dL Time of 1ST Reevaluation: 20:00 Reevaluation 1ST: Unchanged Time of 2ND Reevaluation: 21:00 Reevaluation 2ND: Improved Patient Education/Counseling: Diagnosis, Treatment Family Education/Counseling: No Family Present Departure 1 Departure Time of Disposition: 21:00 Impression: Primary Impression: Atypical chest pain Disposition: HOME / SELF CARE / HOMELESS Condition: Stable Discharged With: Self Critical Care Note Critical Care Time?: No Stability Stability form required: No Heart Score Heart Score: Heart Score Response (Comments) Value History Moderate Suspicious 1 EKG Normal 0 Age 45-64 1 Risk Factors 1 or 2 risk factors 1 Troponin Normal limit 0 Total 3 I personally scribed for MANDY OJEDA MD ([email or web address]) on 09/05/24 at 20:10. Electronically submitted by Ramón Alvarado ([email or web address]). MANDY OJEDA MD Sep 05, 2024 20:10
[2024-09-05 20:11] LABS: Basophils # (auto) 0 10 ^3/uL (0-0.2); Basophils % (auto) 0.2 % (0.0-2.0); Eosinophils # (auto) 0.1 10 ^3/uL (0-0.8); Eosinophils % (auto) 2.1 % (0.0-7.0); Hematocrit 39.8 % (36.0-46.0); Lymphocytes # (auto) 0.9 10 ^3/uL (0.4-5.4); Lymphocytes % (auto) 20.2 % (10.0-50.0); Mean Corpuscular Hemoglobin 30.5 pg (28.0-32.0); Mean Corpuscular Hgb Conc. 32.6 g/dL (32.0-36.0); Mean Corpuscular Volume 93.5 fL (80.0-100.0); Monocytes # (auto) 0.6 10 ^3/uL (0-1.3); Monocytes % (auto) 13.9 % (0.0-12.0); Neutrophils # (auto) 2.7 10 ^3/uL (1.6-8.6); Neutrophils % (auto) 63.6 % (37.0-80.0); Nucleated Red Blood Cells % 0.1 %; Platelet Count (auto) 123 10^3/uL (140-450); Red Blood Cells 4.25 10^6/uL (4.0-5.20); Red Cell Distribution Width 16.1 % (11.8-14.3); White Blood Cell 4.3 10^3/uL (4.4-10.8)
--- NOTE | 2024-09-05 20:15 | DVH ---
CHEST RADIOGRAPH Indication: chest pain Technique: Single frontal view of the chest was obtained Comparison: XY CHEST XRAY 1 VIEW on DOS: 04/04/24, XY CHEST PORTABLE on DOS: 03/27/24, XY CHEST PORTABL E on DOS: 03/14/24, XY CHEST XRAY 1 VIEW on DOS: 03/10/24, XY CHEST PORTABLE on DOS: 03/09/24 FINDINGS: Lines and Tubes: None Lungs: No focal consolidation. Pleura: No effusion. No pneumothorax. Cardiomediastinal contours: Unremarkable Bones: No acute osseous abnormality. IMPRESSION: No acute cardiopulmonary disease.
[2024-09-05 20:31] LABS: Alanine Aminotransferase 10 U/L (7-40); Albumin 4.1 g/dL (3.2-4.8); Alkaline Phosphatase 73 U/L (46-116); Anion Gap 4 (5-15); BUN/Creatinine Ratio 20.3 (10.0-20.0); Blood Urea Nitrogen 13 mg/dL (9-23); Calcium 9.1 mg/dL (8.7-10.4); Carbon Dioxide 28 mmol/L (20-31); Glucose 93 mg/dL (74-106); Potassium 4.4 mmol/L (3.5-5.1)
[2024-09-05 20:32] LABS: Bilirubin, Total 0.3 mg/dL (0.2-1.0)
[2024-09-05 21:01] LABS: Aspartate Aminotransferase 10 U/L (13-40); Chloride 98 mmol/L (98-107); Sodium 130 mmol/L (136-145); Total Protein 5.5 g/dL (5.7-8.2)
[2024-09-05 22:30] VITALS: BP 136/73; PULSE 78; RESP 18; TEMP 98.3; O2SAT 98
--- NOTE | 2024-09-07 15:25 | ECG ---
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
== END 2024-09-05 22:29 | disposition home or self-care (01) ==
LOC: EDBD 19:44 → ER 19:44
DX: R07.89 Other chest pain (principal); J44.9 Chronic obstructive pulmonary disease, unspecified; F31.9 Bipolar disorder, unspecified; F20.9 Schizophrenia, unspecified; Z87.440 Personal history of urinary (tract) infections
CPT/HCPCS: 36415; 71045; 80053; 84484; 85025; 93005

== ENCOUNTER 2024-09-06 01:38 | Emergency (ER) | payer MEDICAID ==
[~2024-09-06] VITALS: Ht 167.6 cm; Wt 54.5 kg
[2024-09-06 01:42] VITALS: BP 141/88; RESP 20; O2SAT 94
--- NOTE | 2024-09-06 01:46 | ECG ---
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
--- NOTE | 2024-09-06 01:56 | ED.PDOC ---
HPI Comments 54-year-old female who came to ER for chest pains. Patient does have a history of COPD on home oxygen at 2 liters/minute, schizophrenia and bipolar disorder. She resides at an assisted care facility. She was seen here few hours ago with chest pains, diagnostics were done and was discharged improve. Patient unable to get home and was staying at an lobby waiting for a ride. Patient decided to come in again, still complaining of chest pains. Chief Complaint: Chest Pain Time Seen by MD: 01:55 Primary Care Provider: UNKNOWN Reviewed Notes: Nurses Notes Allergies: Coded Allergies: NO KNOWN ALLERGIES (Unverified , 11/11/23) Home Meds Active Scripts Ondansetron Odt 4MG Tab (ZOFRAN PO) 4 Mg Tb, 4 MG PO TIDPRN PRN for 7 Days, #21 TAB ODT TAB-DISSOLVE IN MOUTH, THEN SWALLOW Prov:CHRISTAL ABRAHAM MD 07/08/24 Reported Medications Haloperidol (Haldol) 5 Mg Tb, 3 MG PO BID, MG 03/15/24 Benztropine Mesylate (Benztropine Mesylate) 1 Mg Tab, 1 MG PO BID, MG 03/15/24 Trazodone Hcl (Trazodone Hcl) 50 Mg Tab, 75 MG PO HS, MG 03/15/24 Lorazepam (ATIVAN TABLET) 0.5 Mg Tb, 0.5 MG PO Q4HPRN PRN for ANXIETY, TAB 03/15/24 Information Source: Patient Mode of Arrival: Ambulatory Severity: Moderate Timing: Hours Duration: Intermittent Prehospital treatment: Oxygen Location: Chest (L) Cardiac Risk Factors: HTN, Other (COPD) History of: Similar pain in past Associated Signs and Symptoms: SOB Past Medical History PAST MEDICAL HISTORY: COPD, Gallstones, Schizophrenia, UTI'S Past Medical History (Other): Bipolar disorder Surgical History: Denies all surgeries 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 Hx Family History Family History: Reviewed,noncontributory to illness Social History Smoker: Quit Less Than 1 Year, Cigarettes Alcohol: Denies ETOH Use Drugs: Denies Drug Use Lives In: Assisted Care Constitutional: denies: chills, diaphoresis, fatigue, fever, malaise, sweats, weakness, others EENTM: denies: blurred vision, double vision, ear bleeding, ear discharge, ear drainage, ear pain, ear ringing, eye pain, eye redness, hearing loss, mouth pain, mouth swelling, nasal discharge, nose bleeding, nose congestion, nose pain, photophobia, tearing, throat pain, throat swelling, voice changes, others Respiratory: denies: cough, hemoptysis, orthopnea, SOB at rest, shortness of breath, SOB with excertion, stridor, wheezing, others Cardiovascular: reports: chest pain; denies: dizzy spells, diaphoresis, Dyspnea on exertion, edema, irregular heart beat, left arm pain, lightheadedness, palpitations, PND, syncope, others Gastrointestinal: denies: abdomen distended, abdominal pain, blood streaked bowels, constipated, diarrhea, dysphagia, difficulty swallowing, hematemesis, melena, nausea, poor appetite, poor fluid intake, rectal bleeding, rectal pain, vomiting, others Genitourinary: denies: abnormal vagina bleeding, burning, dyspareunia, dysuria, flank pain, frequency, hematuria, incontinence, pain, , vagina discharge, urgency, others Neurological: denies: dizziness, fainting, headache, left sided numbness, left sided weakness, numbness, paresthesia, pre-existing deficit, right sided numbness, right sided weakness, seizure, speech problems, tingling, tremors, weakness, others Musculoskeletal: denies: back pain, gout, joint pain, joint swelling, muscle pain, muscle stiffness, neck pain, others Integumetry: denies: bruises, change in color, change in hair/nails, dryness, laceration, lesions, lumps, rash, wounds, others Allergic/Immunocompromised: denies: Difficulty Healing, Frequent Infections, Hives, Itching, others Hematologic/Lymphatic: denies: anemia, blood clots, easy bleeding, easy bruising, swollen glands, others Endocrine: denies: excessive hunger, excessive sweating, excessive thirst, excessive urination, flushing, intolerance to cold, intolerance to heat, unexplained weight gain, unexplained weight loss, others Psychiatric: reports: bipolar disorder, schizophrenia; denies: anxiety, depression, hopeless, panic disorder, sleepless, suicidal, others Physical Exam General Appearance: No Apparent Distress, Normal HEENT: Normal ENT Inspection, Pharynx Normal, TMs Normal Neck: Full Range of Motion, Non-Tender, Normal, Normal Inspection Respiratory: Chest Non-Tender, Lungs Clear, No Accessory Muscle Use, No Respiratory Distress, Normal Breath Sounds Cardiovascular: No Edema, No JVD, No Murmur, No Gallop, Normal Peripheral Pulses, Regular Rate/Rhythm Breast Exam: Deferred Gastrointestinal: No Organomegaly, Non Tender, No Pulsatile Mass, Normal Bowel Sounds, Soft Genitalia: Deferred Pelvic: Deferred Rectal: Deferred Extremities: No calf tenderness, Normal capillary refill, Normal inspection, Normal range of motion, Non-tender, No pedal edema Musculoskeletal : Apperance: Normal Neurologic: Alert, machine room 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 Was a procedure done?: No CP Differential Dx Differential Diagnosis: Angina, Anxiety / Panic Attack Differential Diagnosis: Angina, Chest Wall Pain, Costochondritis, Esophageal reflux/spasm, Gastritis, Myocardial Infarction X-Ray, Labs, Meds, VS Vital Signs Date Time Temp Pulse Resp B/P (MAP) Pulse Ox O2 Delivery O2 Flow Rate FiO2 09/06/24 02:10 83 09/06/24 01:44 86 09/06/24 01:42 98.6 86 20 141/88 (105) 94 Lab Test 09/06/24 01:51 Range/Units Troponin I High Sensitivity 5 </=34 ng/L Time of 1ST Reevaluation: 01:51 Reevaluation 1ST: Unchanged Time of 2ND Reevaluation: 02:30 Reevaluation 2ND: Improved Patient Education/Counseling: Diagnosis, Treatment Family Education/Counseling: No Family Present Departure 1 Departure Time of Disposition: 02:30 Impression: Primary Impression: Atypical chest pain Disposition: 01 HOME / SELF CARE / HOMELESS Condition: Stable Discharged With: Self Critical Care Note Critical Care Time?: No Stability Stability form required: No Heart Score Heart Score: Heart Score Response (Comments) Value History Slightly Suspicious 0 EKG Normal 0 Age 45-64 1 Risk Factors 1 or 2 risk factors 1 Troponin Normal limit 0 Total 2 I personally scribed for MANDY OJEDA MD ([email or web address]) on 09/06/24 at 01:56. Electronically submitted by Ramón Alvarado ([email or web address]). MANDY OJEDA MD Sep 06, 2024 01:56
[2024-09-06 02:10] VITALS: PULSE 83
--- NOTE | 2024-09-08 11:12 | ECG ---
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
== END 2024-09-06 02:56 | disposition home or self-care (01) ==
LOC: ER 01:38
DX: R07.89 Other chest pain (principal); J44.9 Chronic obstructive pulmonary disease, unspecified; F31.9 Bipolar disorder, unspecified; F20.9 Schizophrenia, unspecified; Z87.440 Personal history of urinary (tract) infections; Z99.81 Dependence on supplemental oxygen; Z87.891 Personal history of nicotine dependence
CPT/HCPCS: 36415; 84484; 93005

== ENCOUNTER 2024-09-13 19:26 | Inpatient (IN) | payer MEDICAID ==
[~2024-09-13] VITALS: Ht 160 cm; Wt 48.3 kg
[2024-09-13 19:36] VITALS: RESP 33; O2SAT 95
--- NOTE | 2024-09-13 19:47 | ED.PDOC ---
History of Present Illness HPI Comments 54 y/o F, with a Hx of COPD and former tobacco use, is BIBA for c/o shortness of breath and cough, today. Per EMS report, patient is a resident of [facility] and was brought after staff found the patient laying in the couch cyanotic and heavy work of breathing, this evening. On scene, patient was on an O2 concentration with a SpO2 in the mid-low 80's. En route, patient was given DuoNeb breathing Tx and placed on 8LPM O2. At time of arrival, patient had a SpO2 in the 98% w/8LPM O2. Patient has no reported chest pain, hemoptysis, fever, chills, or other associated symptoms or modifiers at this time. Chief Complaint: Shortness of Breath Time Seen by MD: 19:30 Primary Care Provider: UNKNOWN Reviewed Notes: Nurses Notes, Complaint Evaluation Officer Notes, Medications, Allergies Allergies: Coded Allergies: NO KNOWN ALLERGIES (Unverified , 11/11/23) Home Meds Active Scripts Ondansetron Odt 4MG Tab (ZOFRAN PO) 4 Mg Tb, 4 MG PO TIDPRN PRN for 7 Days, #21 TAB ODT TAB-DISSOLVE IN MOUTH, THEN SWALLOW Prov:CHRISTAL ABRAHAM MD 07/08/24 Reported Medications Haloperidol (Haldol) 5 Mg Tb, 3 MG PO BID, MG 03/15/24 Benztropine Mesylate (Benztropine Mesylate) 1 Mg Tab, 1 MG PO BID, MG 03/15/24 Trazodone Hcl (Trazodone Hcl) 50 Mg Tab, 75 MG PO HS, MG 03/15/24 Lorazepam (ATIVAN TABLET) 0.5 Mg Tb, 0.5 MG PO Q4HPRN PRN for ANXIETY, TAB 03/15/24 Information Source: Patient, Emergency Med Personnel Mode of Arrival: EMS Severity: Moderate Timing: Hours Duration: Since onset Prehospital treatment: 12 Lead EKG, Breathing Tx, Beader, Oxygen Past Medical History PAST MEDICAL HISTORY: COPD, Gallstones, Schizophrenia, UTI'S Surgical History: Denies all surgeries SHINGLE CARRIER History: Denies all SHINGLE CARRIER Hx Family History Family History: Reviewed,noncontributory to illness Social History Smoker: Quit Less Than 1 Year, Cigarettes Alcohol: Denies ETOH Use Drugs: Denies Drug Use Lives In: Assisted Care, [facility] Respiratory: reports: cough, shortness of breath All Other Systems: Reviewed and Negative (negative unless otherwise stated above or in HPI) Physical Exam General Appearance: Moderate Distress, Normal HEENT: Normal ENT Inspection, Pharynx Normal, TMs Normal Neck: Full Range of Motion, Non-Tender, Normal, Normal Inspection Respiratory: Accessory Muscle Use, Chest Non-Tender, Wheezing (scattered wheezing bilaterally) Cardiovascular: No Edema, No JVD, No Murmur, No Gallop, Normal Peripheral Pulses, Regular Rate/Rhythm Breast Exam: Deferred Gastrointestinal: No Organomegaly, Non Tender, No Pulsatile Mass, Normal Bowel Sounds, Soft Genitalia: Deferred Pelvic: Deferred Rectal: Deferred Extremities: No calf tenderness, Normal capillary refill, Normal inspection, Normal range of motion, Non-tender, No pedal edema Musculoskeletal : Apperance: Normal Neurologic: Alert, giver II-XII 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 Was a procedure done?: No Differential Dx Considerations may include: COPD exacerbation, PNA, bronchitis, URI, viral syndrome, PE, GA X-Ray, Labs, Meds, VS Vital Signs Date Time Temp Pulse Resp B/P (MAP) Pulse Ox O2 Delivery O2 Flow Rate FiO2 09/13/24 22:00 98 21 104/52 (69) 94 09/13/24 20:15 113 Facial BiPAP Mask 35 09/13/24 20:06 30 96 Nasal Cannula* 3 32 09/13/24 20:00 98.5 116 43 125/53 (77) 99 98.5 09/13/24 19:36 33 95 Nasal Cannula* 4 36 09/13/24 19:31 98.5 122 30 123/66 (85) 82 09/13/24 19:29 120 Lab Test 09/13/24 21:28 09/13/24 21:11 09/13/24 20:20 09/13/24 20:02 Range/Units Blood Gas Specimen Type Arterial Venous Blood Gas Sample Site Left radial Vbg - n/a Blood Gas Patient Temperature 37.0 37.0 Arterial Blood Date Drawn [id number] Arterial Blood pH 7.263 L 7.350-7.450 Arterial Blood Partial Pressure CO2 65.2 *H 32.0-45.0 mmHg Arterial Blood Partial Pressure O2 70.2 L 83.0-108.0 mmHg Arterial Blood HCO3 28.8 H 21.0-28.0 mmol/L Arterial Blood Oxygen Saturation 91.8 L 94.0-98.0 % Arterial Blood Base Excess 0.2 -2.0-3.0 mmol/L Arterial Blood Oxyhemoglobin 89.4 L 94.0-98.0 % Arterial Blood Carboxyhemoglobin 2.1 H 0.5-1.5 % Arterial Blood Methemoglobin 0.5 0.0-1.5 % Clay Test Yes N/a Blood Gas Total Hemoglobin 13.60 12.0-16.0 g/dL Blood Gas Set Respiration Rate 16.0 Blood Gas Modality Mask - bipap Nasal cannula FiO2 % 35.0 32.0 Blood Gas EPAP 6 Blood Gas IPAP 16 Specimen Drawn By Theresa hoover top collar maker Theresa hoover rrt Blood Gas Critical Value Read Back yes yes Blood Gas Notified Whom ant Ojeda md, m. md Blood Gas Notified Time [id number] Blood Gas Notified By Theresa hoover top collar maker Theresa hoover rrt Troponin I High Sensitivity 58 *H </=34 ng/L Influenza Type A Antigen Negative Negative Influenza Type B Antigen Negative Negative SARS-CoV-2 Antigen (Rapid) Negative NEGATIVE Venous Blood pH 7.217 L 7.320-7.430 Venous Blood pCO2 at Patient Temp 79.3 *H 38.0-54.0 mmHg Venous Blood pO2 at Patient Temp 87.4 H 23.0-48.0 mmHg Venous Blood HCO3 31.5 H 22.0-29.0 mmol/L Venous Bld O2 Saturation (Measured) 94.9 H 60.0-85.0 % Venous Blood Base Excess 1.3 -2.0-3.0 mmol/L Venous Blood Total Hemoglobin 14.2 12.0-16.0 g/dL Venous Blood Oxyhemoglobin 92.1 H 0.0-79.0 % Venous Blood Carboxyhemoglobin 2.4 H 0.5-1.5 % Venous Blood Methemoglobin 0.6 0.0-1.5 % Blood Gas Liter Flow 3.00 Test 09/13/24 19:56 Range/Units White Blood Count 6.6 4.4-10.8 10^3/uL Red Blood Count 4.33 4.0-5.20 10^6/uL Hemoglobin 13.3 12.2-16.2 g/dL Hematocrit 40.8 36.0-46.0 % Mean Corpuscular Volume 94.3 80.0-100.0 fL Mean Corpuscular Hemoglobin 30.7 28.0-32.0 pg Mean Corpuscular Hemoglobin Concent 32.6 32.0-36.0 g/dL Red Cell Distribution Width 16.6 H 11.8-14.3 % Platelet Count 158 140-450 10^3/uL Mean Platelet Volume 7.8 6.9-10.8 fL Neutrophils (%) (Auto) 91.1 H 37.0-80.0 % Lymphocytes (%) (Auto) 2.8 L 10.0-50.0 % Monocytes (%) (Auto) 6.0 0.0-12.0 % Eosinophils (%) (Auto) 0.0 0.0-7.0 % Basophils (%) (Auto) 0.1 0.0-2.0 % Neutrophils # (Auto) 6.0 1.6-8.6 10 ^3/uL Lymphocytes # (Auto) 0.2 L 0.4-5.4 10 ^3/uL Monocytes # (Auto) 0.4 0-1.3 10 ^3/uL Eosinophils # (Auto) 0 0-0.8 10 ^3/uL Basophils # (Auto) 0 0-0.2 10 ^3/uL Nucleated Red Blood Cells 0.0 % Sodium Level 136 136-145 mmol/L Potassium Level 5.1 3.5-5.1 mmol/L Chloride Level 100 98-107 mmol/L Carbon Dioxide Level 30 20-31 mmol/L Anion Gap 6 5-15 Blood Urea Nitrogen 12 9-23 mg/dL Creatinine 0.79 0.550-1.02 mg/dL Glomerular Filtration Rate Calc 88 >90 mL/min BUN/Creatinine Ratio 15.2 10.0-20.0 Serum Glucose 130 H 74-106 mg/dL Hemoglobin A1c 5.6 <5.7 % A1C Lactic Acid Level 1.3 0.4-2.0 mmol/L Calcium Level 9.4 8.7-10.4 mg/dL Magnesium Level 1.7 1.6-2.6 mg/dL Total Bilirubin 0.4 0.2-1.0 mg/dL Aspartate Amino Transferase (AST) 19 13-40 U/L Alanine Aminotransferase (ALT) 20 7-40 U/L Alkaline Phosphatase 88 46-116 U/L Troponin I High Sensitivity 23 </=34 ng/L B-Type Natriuretic Peptide 128.53 0-100 pg/mL Total Protein 6.2 5.7-8.2 g/dL Albumin 4.4 3.2-4.8 g/dL Current Medications Medications (Trade) Dose Ordered Sig/Elaine Route Start Time Stop Time Status Last Admin Albuterol (Ventolin Medneb) 5 mg ONCE ONCE NEB 09/13/24 19:45 09/13/24 19:46 DC 09/13/24 20:06 Ipratropium [place] (Atrovent Medneb) 0.5 mg ONCE ONCE NEB 09/13/24 19:45 09/13/24 19:46 DC 09/13/24 20:06 Methylprednisolone Sodium Succinate (Solu Medrol) 125 mg ONCE ONCE IV 09/13/24 19:45 09/13/24 19:46 DC 09/13/24 19:48 Magnesium Sulfate/ Dextrose 100 ml @ 100 mls/hr Q1H IV 09/13/24 19:45 09/13/24 21:44 DC 09/13/24 21:35 Time of 1ST Reevaluation: 18:00 Reevaluation 1ST: Unchanged Time of 2ND Reevaluation: 21:34 Reevaluation 2ND: Unchanged (on bipap, ABG improving) Patient Education/Counseling: Diagnosis, Treatment Family Education/Counseling: No Family Present Departure 1 Departure Time of Disposition: 21:34 Impression: Primary Impression: Acute hypoxic respiratory failure Additional Impression: COPD with acute exacerbation Disposition: ADMITTED INPATIENT Admit to: Tele Condition: Guarded Critical Care Note Critical Care Time?: Yes (35 min-critical care time only) Critical care comment: Total critical care time: Approximately 36 minutes Due to a high probability of clinically significant, life threatening deterioration, the patient required my highest level of preparedness to intervene emergently and I personally spent this critical care time directly and personally managing the patient. This critical care time included obtaining a history; examining the patient; pulse oximetry; ordering and review of studies; arranging urgent treatment with development of a management plan; evaluation of patient's response to treatment; frequent reassessment; and, discussions with other providers. This critical care time was performed to assess and manage the high probability of imminent, life-threatening deterioration that could result in multi-organ failure. It was exclusive of separately billable procedures and treating other patients. Stability Stability form required: No Heart Score Heart Score: Heart Score Response (Comments) Value History Slightly Suspicious 0 EKG Repolarization Disturb 1 Age 45-64 1 Risk Factors 1 or 2 risk factors 1 Troponin Normal limit 0 Total 3 I personally scribed for MANDY OJEDA MD ([email or web address]) on 09/13/24 at 19:47. Electronically submitted by Devin Huerta ([email or web address]). MANDY OJEDA MD Sep 13, 2024 19:47
[2024-09-13] MEDS: methylPREDNISolone SOD SUCC 125 MG/2 ML VL IV ONE (19:48)
[2024-09-13] MEDS: methylPREDNISolone SOD SUCC 125 MG/2 ML VL ONE (20:03)
[2024-09-13] MEDS: IPRATROPIUM BROM 0.5 MG/2.5ML INH SOL NEB ONE (20:06)
[2024-09-13] MEDS: ALBUTEROL SULF 2.5 MG/0.5ML(0.5%) NEB SOLN NEB ONE (20:06)
[2024-09-13 20:16] LABS: Basophils # (auto) 0 10 ^3/uL (0-0.2); Basophils % (auto) 0.1 % (0.0-2.0); Eosinophils # (auto) 0 10 ^3/uL (0-0.8); Hematocrit 40.8 % (36.0-46.0); Hemoglobin 13.3 g/dL (12.2-16.2); Lymphocytes # (auto) 0.2 10 ^3/uL (0.4-5.4); Lymphocytes % (auto) 2.8 % (10.0-50.0); Mean Corpuscular Hemoglobin 30.7 pg (28.0-32.0); Mean Corpuscular Hgb Conc. 32.6 g/dL (32.0-36.0); Mean Corpuscular Volume 94.3 fL (80.0-100.0); Monocytes # (auto) 0.4 10 ^3/uL (0-1.3); Neutrophils % (auto) 91.1 % (37.0-80.0); Platelet Count (auto) 158 10^3/uL (140-450); Red Blood Cells 4.33 10^6/uL (4.0-5.20); Red Cell Distribution Width 16.6 % (11.8-14.3); White Blood Cell 6.6 10^3/uL (4.4-10.8)
--- NOTE | 2024-09-13 20:22 | DVH ---
EXAM: XY CHEST PORTABLE CLINICAL HISTORY: SOB TECHNIQUE: Single AP view of the chest WID: COMPARISON: XY CHEST PORTABLE on DOS: 09/05/24, FINDINGS: Lines and tubes: None Chest: The heart size and pulmonary vasculature is within normal limits. Hyperexpansion of the lungs. Relative lucency throughout both lungs. Scattered areas of scarring in the lungs. No new airspace consolidation. No pleural effusion. The osseous structures are grossly intact. IMPRESSION: Emphysema/COPD.
[2024-09-13] MEDS: MAGNESIUM SULFATE 1GM/100ML 100 ML IV SCH (20:27)
[2024-09-13 20:31] LABS: Alanine Aminotransferase 20 U/L (7-40); Albumin 4.4 g/dL (3.2-4.8); Alkaline Phosphatase 88 U/L (46-116); Anion Gap 6 (5-15); Aspartate Aminotransferase 19 U/L (13-40); BUN/Creatinine Ratio 15.2 (10.0-20.0); Bilirubin, Total 0.4 mg/dL (0.2-1.0); Blood Urea Nitrogen 12 mg/dL (9-23); Calcium 9.4 mg/dL (8.7-10.4); Carbon Dioxide 30 mmol/L (20-31); Chloride 100 mmol/L (98-107); Glucose 130 mg/dL (74-106); Magnesium 1.7 mg/dL (1.6-2.6); Potassium 5.1 mmol/L (3.5-5.1); Sodium 136 mmol/L (136-145); Total Protein 6.2 g/dL (5.7-8.2)
[2024-09-13 21:40] LABS: Base Excess 0.2 mmol/L (-2.0-3.0)
[2024-09-13 21:47] LABS: COVID19 ANTIGEN SOFIA FIA NEGATIVE (NEGATIVE)
[2024-09-13 21:48] LABS: Rapid Influenza A Negative (Negative); Rapid Influenza B Negative (Negative)
[2024-09-13 22:00] VITALS: BP 125/53; PULSE 116; RESP 33; TEMP 98.5; O2SAT 96
[2024-09-13 22:15] VITALS: BP 131/66; PULSE 106; O2SAT 93
--- NOTE | 2024-09-13 22:56 | DVHHPRES ---
History of Present Illness Resident Creating Document: CHIARA PRIETO RESIDENT History of Present Illness This is a 54 yr old female history of COPD with home oxygen 2-4 L, schizophrenia, hypertension brought in ED via EMS with a complaint of shortness of breath and cough for 1 day prior to this admission. Patient is a resident of [facility] and was brought after staff found the patient lying in the couch cyanotic and heavy work of breathing, desaturating with a SpO2 was in mid/low 80s. EN route, patient was given DuoNeb breathing treatment and placed on 8 L o2 through nasal cannula. The patient denies fever flu-like, flu-like symptoms, chest pain, dizziness, diaphoresis, abdominal pain, nausea, vomiting or any change in bowel and bladder movement. Past Medical History COPD on home oxygen 2-4 L, hypertension, schizophrenia Past Surgical History None Family History None Smoke: No ALCOHOL: none Drugs: None Lives: [facility] Review of Systems Review of Systems Review of system could not be assessed as patient is A&O x2 Allergies: Coded Allergies: NO KNOWN ALLERGIES (Unverified , 11/11/23) Exam Vital Signs Vital Signs Date Time Temp Pulse Resp B/P (MAP) Pulse Ox O2 Delivery O2 Flow Rate FiO2 09/13/24 22:00 98 21 104/52 (69) 94 09/13/24 20:15 Facial BiPAP Mask 35 09/13/24 20:06 3 09/13/24 20:00 98.5 98.5 Exam Physical examination: General Appearance: Alert, Oriented X2, mild distress, facial BiPAP mask. HEENT: Atraumatic, PERRLA, EOMI, Mucous membrane moist/pink Respiratory: Vesicular with prolonged expiration, scattered wheezes Cardiovascular: Regular rate, Normal S1, Normal S2, No murmurs, no chest wall tenderness Abdominal: Normal bowel sounds, Soft, No tenderness, No hepatospenomegaly, No masses Extremities: No clubbing, No cyanosis, No edema, Normal pulses, No tenderness/swelling Skin: No rashes, No breakdown, No significant lesion Neuro: Normal speech, Strength at 5/5 X4 ext, Normal tone, Sensation intact. Psych/Mental Status: Could not be assessed as patient is not fully oriented. Labs/Xrays Labs Test 09/13/24 21:28 09/13/24 21:11 09/13/24 20:20 09/13/24 20:02 Range/Units Blood Gas Specimen Type Arterial Blood Gas Sample Site Left radial Blood Gas Patient Temperature 37.0 Arterial Blood Date Drawn [id number] Arterial Blood pH 7.263 L 7.350-7.450 Arterial Blood Partial Pressure CO2 65.2 *H 32.0-45.0 mmHg Arterial Blood Partial Pressure O2 70.2 L 83.0-108.0 mmHg Arterial Blood HCO3 28.8 H 21.0-28.0 mmol/L Arterial Blood Oxygen Saturation 91.8 L 94.0-98.0 % Arterial Blood Base Excess 0.2 -2.0-3.0 mmol/L Arterial Blood Oxyhemoglobin 89.4 L 94.0-98.0 % Arterial Blood Carboxyhemoglobin 2.1 H 0.5-1.5 % Arterial Blood Methemoglobin 0.5 0.0-1.5 % Clay Test Yes Blood Gas Total Hemoglobin 13.60 12.0-16.0 g/dL Blood Gas Set Respiration Rate 16.0 Blood Gas Modality Mask - bipap FiO2 % 35.0 Blood Gas EPAP 6 Blood Gas IPAP 16 Specimen Drawn By Theresa hoover learning and development officer Blood Gas Critical Value Read Back yes Blood Gas Notified Whom ant Castro md Blood Gas Notified Time [id number] Blood Gas Notified By Theresa hoover rrt Troponin I High Sensitivity 58 *H </=34 ng/L Influenza Type A Antigen Negative Negative Influenza Type B Antigen Negative Negative SARS-CoV-2 Antigen (Rapid) Negative NEGATIVE Venous Blood pH 7.217 L 7.320-7.430 Venous Blood pCO2 at Patient Temp 79.3 *H 38.0-54.0 mmHg Venous Blood pO2 at Patient Temp 87.4 H 23.0-48.0 mmHg Venous Blood HCO3 31.5 H 22.0-29.0 mmol/L Venous Bld O2 Saturation (Measured) 94.9 H 60.0-85.0 % Venous Blood Base Excess 1.3 -2.0-3.0 mmol/L Venous Blood Total Hemoglobin 14.2 12.0-16.0 g/dL Venous Blood Oxyhemoglobin 92.1 H 0.0-79.0 % Venous Blood Carboxyhemoglobin 2.4 H 0.5-1.5 % Venous Blood Methemoglobin 0.6 0.0-1.5 % Blood Gas Liter Flow 3.00 Test 09/13/24 19:56 Range/Units White Blood Count 6.6 4.4-10.8 10^3/uL Red Blood Count 4.33 4.0-5.20 10^6/uL Hemoglobin 13.3 12.2-16.2 g/dL Hematocrit 40.8 36.0-46.0 % Mean Corpuscular Volume 94.3 80.0-100.0 fL Mean Corpuscular Hemoglobin 30.7 28.0-32.0 pg Mean Corpuscular Hemoglobin Concent 32.6 32.0-36.0 g/dL Red Cell Distribution Width 16.6 H 11.8-14.3 % Platelet Count 158 140-450 10^3/uL Mean Platelet Volume 7.8 6.9-10.8 fL Neutrophils (%) (Auto) 91.1 H 37.0-80.0 % Lymphocytes (%) (Auto) 2.8 L 10.0-50.0 % Monocytes (%) (Auto) 6.0 0.0-12.0 % Eosinophils (%) (Auto) 0.0 0.0-7.0 % Basophils (%) (Auto) 0.1 0.0-2.0 % Neutrophils # (Auto) 6.0 1.6-8.6 10 ^3/uL Lymphocytes # (Auto) 0.2 L 0.4-5.4 10 ^3/uL Monocytes # (Auto) 0.4 0-1.3 10 ^3/uL Eosinophils # (Auto) 0 0-0.8 10 ^3/uL Basophils # (Auto) 0 0-0.2 10 ^3/uL Nucleated Red Blood Cells 0.0 % Sodium Level 136 136-145 mmol/L Potassium Level 5.1 3.5-5.1 mmol/L Chloride Level 100 98-107 mmol/L Carbon Dioxide Level 30 20-31 mmol/L Anion Gap 6 5-15 Blood Urea Nitrogen 12 9-23 mg/dL Creatinine 0.79 0.550-1.02 mg/dL Glomerular Filtration Rate Calc 88 >90 mL/min BUN/Creatinine Ratio 15.2 10.0-20.0 Serum Glucose 130 H 74-106 mg/dL Lactic Acid Level 1.3 0.4-2.0 mmol/L Calcium Level 9.4 8.7-10.4 mg/dL Magnesium Level 1.7 1.6-2.6 mg/dL Total Bilirubin 0.4 0.2-1.0 mg/dL Aspartate Amino Transferase (AST) 19 13-40 U/L Alanine Aminotransferase (ALT) 20 7-40 U/L Alkaline Phosphatase 88 46-116 U/L B-Type Natriuretic Peptide 128.53 0-100 pg/mL Total Protein 6.2 5.7-8.2 g/dL Albumin 4.4 3.2-4.8 g/dL Assessment/Plan Assessment/Plan Assessment and plan: # Acute on chronic respiratory failure secondary to acute exacerbation of chronic COPD - Patient is on BiPAP with saturation 98% # Acute exacerbation of chronic COPD - Covid, Flu negative - Chest xray showed hyperexpansion of the both lung field possible COPD/emphysema - Duoneb with albuterol and ipratropium q.4 hours - Methylprednisolone 40 mg b.i.d. - IV azithromycin 500 mg daily # Possible community-acquired Gram-positive versus Gram-negative pneumonia - Chest x-ray demonstrated right lower lobe opacity - IV ceftriaxone 1 g daily and IV azithromycin 500 mg daily - Ordered sputum C/S # NSTEMI type 2 secondary to above - Troponin trends are 58>136 - Echo on 03/09 revealed ejection fraction 50% with grade 1 diastolic dysfunction and RVSP 34 mm Hg # PUD prophylaxis - Protonix 40 mg IV daily # DVT prophylaxis - Lovenox 40 mg sc daily Goal of care could not be assessed as patient is not fully oriented Plan of treatment discussed with Dr. Pichardo Plan discussed with: Patient, Other Date of Service: Sep 13, 2024 Billing Provider: MINA PICHARDO MD Common Visit Codes: [id number] INP/OBS CARE (HIGH) CHIARA PRIETO RESIDENT Sep 13, 2024 22:56 MINA PICHARDO MD Sep 15, 2024 10:51
[2024-09-13 23:58] LABS: Urine Bacteria None Seen /hpf (None Seen)
[2024-09-14] VITALS (10 sets, daily range): BP systolic 92–145; BP diastolic 36–82; PULSE 95–124; RESP 18; O2SAT 94–98
[2024-09-14 00:09] LABS: Urine Blood Negative /uL (Negative); Urine Clarity Clear (Clear); Urine Color Yellow (Yellow); Urine Hyaline Cast FEW /lpf (0 - 2); Urine Protein, UAD 1+ (Negative); Urine Specific Gravity 1.018 (1.001-1.035); Urine Squamous Epithelial Cell FEW /hpf (<5); Urine Urobilinogen Normal (Negative); Urine WBC 4 /hpf (0 - 5)
[2024-09-14 00:25] LABS: Amphetamine Screen, Urine Neg (NEGATIVE); Barbiturate Scree,Urine Neg (NEGATIVE); Benzodiazephine Screen, Urine Neg (NEGATIVE); Cannabinoid Screen, Urine Neg (NEGATIVE); Cocaine Screen, Urine Neg (NEGATIVE); Opiate Scree,Urine Neg (NEGATIVE); Phencyclidine Screen, Urine Neg (NEGATIVE)
[2024-09-14] MEDS: LORazepam 2MG/ML-1ML VIAL IV ONE (00:29)
[2024-09-14] MEDS: cefTRIAXone 1GM/50ML D5W 50 ML IV ONE (00:41)
[2024-09-14] MEDS: AZITHROMYCIN 500MG/ 250ML 250 ML IV ONE (01:00)
[2024-09-14] MEDS: ALBUTEROL SULF 2.5 MG/0.5ML(0.5%) NEB SOLN NEB SCH (01:15)
[2024-09-14] MEDS: IPRATROPIUM BROM 0.5 MG/2.5ML INH SOL NEB SCH (01:15)
[2024-09-14 02:27] LABS: Base Excess 2.6 mmol/L (-2.0-3.0)
[2024-09-14] MEDS: LORazepam 2MG/ML-1ML VIAL IV PRN (04:00)
--- NOTE | 2024-09-14 07:03 | ECG ---
[facility] Test Date: 2024-09-13 Test Time: 19:29:56 Pat Name: NATIVIDAD URBAN Department: ER Room: [address] [place] [address] Gender: F Marketing Engineer: : 1970 Requested By: MANDY OJEDA Order Number: [id number] Reading MD: Dalia Solorio Measurements Intervals [place] Rate: 120 P: 82 TX: 148 QRS: 111 QRSD: 89 T: 28 QT: 295 QTc: 417 Interpretive Statements Sinus tachycardia Left posterior fascicular block Probable anteroseptal infarct, old Nonspecific T abnormalities inferior leads Electronically Signed On 09-14-2024 8:55:20 PST by Dalia Solorio Please click the below link to view image of tracing.
[2024-09-14] MEDS: ROCURONIUM 10MG/ML 10ML VIAL IV ONE ×2 (07:42→07:47)
[2024-09-14] MEDS: ETOMIDATE (2MG/ML) 20ML VIAL IV ONE ×2 (07:42→07:47)
[2024-09-14] MEDS: fentaNYL Drip 2500mCg/250mlNS 250 ML IV SCH (07:45)
[2024-09-14] MEDS: MIDAZOLAM DRIP 50 mg/50mL 50 ML IV SCH (07:45)
[2024-09-14] MEDS: MIDAZOLAM DRIP 50 mg/50mL 50 ML IV ONE (07:48)
[2024-09-14] MEDS ORDERED: ACETAMINOPHEN IV 1000 MG/100ML (10MG/ML) IV PRN (08:30)
--- NOTE | 2024-09-14 09:05 | DVH ---
EXAM: XY CHEST PORTABLE Indication: INTUBATION AND OG TUBE PLACEMENT Technique: Single frontal view of the chest was obtained Comparison: XY CHEST PORTABLE on DOS: 09/13/24, XY CHEST PORTABLE on DOS: 09/05/24, XY CHEST XRAY 1 V IEW on DOS: 04/04/24, XY CHEST PORTABLE on DOS: 03/27/24, XY CHEST PORTABLE on DOS: 03/14/24 FINDINGS: Lines and Tubes: Endotracheal tube projects 4.7 cm above of the level of the zohaib. Enteric tube pro jects over the expected region of the stomach. Lungs: Hyperexpansion of the lungs. Scattered areas of scarring in the lungs. Pleura: No effusion. No pneumothorax. Cardiomediastinal contours: Unremarkable Bones: No acute osseous abnormality. IMPRESSION: Lines and tubes in appropriate position.
[2024-09-14] MEDS ORDERED: methylPREDNISolone SOD SUCC 40 MG/ML VL IV SCH (10:00)
[2024-09-14] MEDS: NOREPINEPHRINE 8 MG/250ML KIT 250 ML IV SCH (10:20)
--- NOTE | 2024-09-14 11:07 | DVHPNRES ---
Progress Note Date Seen: Sep 14, 2024 Resident Creating Document: SVETLANA BROOKS RESIDENT Has the PT tested + for MRSA If YES, has PT been informed?: No Medical Necessity Reason Pt with a Central, PICC or Fol: Yes The following are medically ne: Jones Catheter Reason for jones catheter: Strict I&O, Total Immobilization Subjective Changes from previous H/P or p: No Changes Review of Systems: HEENT:Normal (Intubated), CVS:Normal (Hypotensive on Levophed), RESPIRATORY:Normal (On FiO2 100% intubated, as per ABG we will go down on oxygen), GI:Normal (Bowel sounds positive, no tenderness or rigidity), :Normal, MSK:Normal (No swelling or wound noted), NEURO:Normal (RASS -2, sedated and ventilated) Objective vital signs Vital Sign Date Time Temp Pulse Resp B/P (MAP) Pulse Ox O2 Delivery O2 Flow Rate FiO2 09/14/24 10:30 82/44 09/14/24 09:53 98 18 99 09/14/24 04:20 Facial BiPAP Mask 45 09/13/24 22:00 98.5 98.5 09/13/24 20:06 3 Total Intake and Output 09/13/24 09/13/24 09/14/24 15:00 23:00 07:00 Intake Total 100 ml 250 ml Balance 100 ml 250 ml medications Current Medications Medications Dose Ordered Sig/Elaine Route Start Time Stop Time Status Last Admin Dose Admin Methylprednisolone Sodium Succinate 40 mg BID IV 09/14/24 10:00 Albuterol 2.5 mg Q4HR NEB 09/14/24 02:00 09/14/24 08:47 2.5 MG Ipratropium [place] 0.5 mg Q4HR NEB 09/14/24 02:00 09/14/24 08:47 0.5 MG Azithromycin 250 ml @ 125 mls/hr Q24H IV 09/14/24 21:00 Ceftriaxone Sodium 50 ml @ 100 mls/hr Q24H IV 09/14/24 21:00 Lorazepam 1 mg Q6HP PRN IV 09/14/24 02:45 09/14/24 04:00 1 MG Pantoprazole Sodium 40 mg DAILY IV 09/14/24 10:00 Enoxaparin Sodium 40 mg DAILY SC 09/14/24 10:00 Midazolam HCl 50 ml @ 1 mls/hr Q24H IV 09/14/24 07:45 09/14/24 08:05 1 MLS/HR Fentanyl Citrate 250 ml @ 2.5 mls/hr Q24H IV 09/14/24 07:45 09/14/24 08:05 2.5 MLS/HR Norepinephrine Bitartrate 250 ml @ 3.75 mls/hr Q24H IV 09/14/24 10:00 09/14/24 10:20 3.75 MLS/HR Examination: GENERAL:Normal, HEENT:Normal, NECK:Normal, LUNGS:Abnormal (Intubated bilateral equal air entry on mechanical ventilation), CVS:Abnormal (Mildly hypotensive but keeping the map over 65, we will try to wean), ABDOMEN:Normal, MSK:Normal, SKIN:Normal, NEURO:Abnormal (RASS-2, well sedated) laboratory and microbiology Laboratory Tests 09/13/24 19:56 Test 09/13/24 19:56 Range/Units Serum Glucose 130 H 74-106 mg/dL Labs and/or images reviewed: Labs reviewed by me, Image(s) reviewed by me Problem List/Assessment/Plan Problem List/Assessment/Plan History of Present Illness: A 54-year-old female with a history of COPD on home oxygen (2-4 L), schizophrenia, and hypertension was brought to the ED with shortness of breath and cough for one day. She was found cyanotic and struggling to breathe at her long-term, with SpO2 in the mid/low 80s. En route, she received a DuoNeb treatment and 8 L of oxygen via nasal cannula. She denies fever, flu-like symptoms, chest pain, dizziness, diaphoresis, abdominal pain, nausea, vomiting, or changes in bowel and bladder movements. At presentation patient was found to have a hypoxic and hypercapnic respiratory failure on BiPAP it worsened with more of CO2 retention with worsening respiratory acidosis needing intubation at ED. patient was also found to have possible infection with aspiration pneumonia and presented in sepsis. Septic shock was treated with IV fluid and Levophed. Normal noted on Plan: # Possible community-acquired Gram-positive versus Gram-negative pneumonia: IV ceftriaxone 1 g daily and IV azithromycin 500 mg >> change to cefepime plus vancomycin, daily negative for viral panel, RSV panel pending. # NSTEMI type 2 secondary to above: Troponin trends are 58>136, likely demand mediated no EKG changes. # Acute on chronic respiratory failure secondary to acute exacerbation of chronic COPD, Echo on 03/09 revealed ejection fraction 50% with grade 1 diastolic dysfunction and RVSP 34 mm Hg # Acute exacerbation of chronic COPD: Patient is on BiPAP with saturation 98%>> increasing CO2, can not protect airways>> needing intubation at bedside. Patient will benefit from pulmonary rehabilitation in the group home. # sepsis secondary to above: IV vancomycin and cefepime to broadly cover, check for MRSA, blood culture, sputum culture pending. #-known history of COPD continue, Duoneb with albuterol and ipratropium q.4 hours, patient was initially on Methylprednisolone 40 mg b.i.d.>> change to sepsis dual methylprednisolone 60 mg q.6 hours. # Left posterior fascicular block: Continue close monitoring we will try to avoid fatemeh blockers # Probable anteroseptal infarct, old # Nonspecific T abnormalities inferior leads, troponin -ve # schizophrenia: When patient has access to oral medication we will consider. Patient takes Haldol at home # anxiety episodes: as needed Ativan, we will reintroduce when patient has more alert awake and off of sedation. # chronic long-term resident. # insomnia: Trazodone 75 mg at night, patient is sedated no need # vent care: Pulmonology consulted, we will follow. CPAP trial, when appropriate, sedation holiday. # mild thrombocytopenia: This morning platelets 134, mildly dropped, follow CBC tomorrow if patient continues to have platelet drop we will hold antiplatelets and anticoagulation. Diet: NPO GI prophylaxis: protonix 40mg IV DVT prophylaxis: Levonox 40mg sc Bowel regimen: Barriers to discharge: Medical diagnosis and management in progress. Patient remains in the ICU/ ANN level of management. Sedated and intubated not fit for discharge. PCP: Specialist Relevant To Admission: Pulmonology consultation: Dr. Cordova Patient care and plan discussed with Dr. Connolly Disposition: Patient remains in ICU / [facility] Plan discussed with: Patient, Other Date of Service: Sep 14, 2024 Billing Provider: CHRISTAL BARAHAM MD Common Visit Codes: [id number] CARE-EACH +30MIN SVETLANA BROOKS Sep 14, 2024 11:07 CHRISTAL ABRAHAM MD Sep 18, 2024 09:36
[2024-09-14] MEDS: LACTATED RINGER'S 1,000 ML IV SCH (11:15)
[2024-09-14] MEDS ORDERED: VANCOMYCIN PER PHARMACY 0 MG IV SCH (11:15)
[2024-09-14] MEDS: PANTOPRAZOLE 40 MG/10 ML VIAL INJ IV SCH (11:47)
[2024-09-14] MEDS: ENOXAPARIN SOD 40 MG/0.4 ML SYRINGE SC SCH (11:47)
--- NOTE | 2024-09-14 11:55 | DVH ---
EXAM: XY CHEST PORTABLE Indication: CENTRAL LINE PLACEMENT VERIFICATION Technique: Single frontal view of the chest was obtained Comparison: XY CHEST PORTABLE on DOS: 09/14/24, XY CHEST PORTABLE on DOS: 09/13/24, XY CHEST PORTABLE on DOS: 09/05/24, XY CHEST XRAY 1 VIEW on DOS: 04/04/24, XY CHEST PORTABLE on DOS: 03/27/24 FINDINGS: Lines and Tubes: Endotracheal tube projects 3 cm above the zohaib. Enteric tube tip projects over the expected region of the stomach Lungs: Diffuse interstitial opacities. Pleura: No effusion. No pneumothorax. Cardiomediastinal contours: Unremarkable Bones: No acute osseous abnormality. IMPRESSION: Lines and tubes in appropriate position. No significant change compared to prior exam.
[2024-09-14] MEDS: LACTATED RINGER'S 1,550 ML IV ONE (12:22)
[2024-09-14 12:25] LABS: Alanine Aminotransferase 17 U/L (7-40); Albumin 3.9 g/dL (3.2-4.8); Alkaline Phosphatase 72 U/L (46-116); Anion Gap 4 (5-15); Aspartate Aminotransferase 17 U/L (13-40); BUN/Creatinine Ratio 22.7 (10.0-20.0); Bilirubin, Total 0.5 mg/dL (0.2-1.0); Blood Urea Nitrogen 15 mg/dL (9-23); Calcium 9.2 mg/dL (8.7-10.4); Chloride 101 mmol/L (98-107); Potassium 4.5 mmol/L (3.5-5.1); Sodium 138 mmol/L (136-145)
[2024-09-14 12:30] LABS: Blood Alcohol < 3.0 mg/dL (<10); Carbon Dioxide 33 mmol/L (20-31); Glucose 118 mg/dL (74-106); Total Protein 5.5 g/dL (5.7-8.2)
[2024-09-14] MEDS: VANCOMYCIN 1GM/250mL NS or D5W KIT IV ONE (12:35)
[2024-09-14] MEDS: methylPREDNISolone SOD SUCC 40 MG/ML VL IV SCH (12:36)
[2024-09-14 12:50] LABS: Base Excess 3.5 mmol/L (-2.0-3.0)
[2024-09-14] MEDS ORDERED: VANCOMYCIN 1.25GM/250ML 250 ML IV ONE (13:00)
[2024-09-14 13:04] LABS: Basophils # (auto) 0 10 ^3/uL (0-0.2); Basophils % (auto) 0.1 % (0.0-2.0); Eosinophils # (auto) 0 10 ^3/uL (0-0.8); Hematocrit 38.8 % (36.0-46.0); Hemoglobin 12.7 g/dL (12.2-16.2); Lymphocytes # (auto) 0.2 10 ^3/uL (0.4-5.4); Lymphocytes % (auto) 3.4 % (10.0-50.0); Mean Corpuscular Hemoglobin 30.5 pg (28.0-32.0); Mean Corpuscular Hgb Conc. 32.9 g/dL (32.0-36.0); Mean Corpuscular Volume 92.9 fL (80.0-100.0); Monocytes # (auto) 0.9 10 ^3/uL (0-1.3); Monocytes % (auto) 15.8 % (0.0-12.0); Neutrophils # (auto) 4.8 10 ^3/uL (1.6-8.6); Neutrophils % (auto) 80.7 % (37.0-80.0); Nucleated Red Blood Cells % 0.1 %; Platelet Count (auto) 134 10^3/uL (140-450); Red Blood Cells 4.18 10^6/uL (4.0-5.20); Red Cell Distribution Width 16.1 % (11.8-14.3)
[2024-09-14] MEDS: CEFEPIME 2GM/50ML NS 50 ML IV SCH (13:26)
--- NOTE | 2024-09-14 19:58 | DVHNC2 ---
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 Hart) Indication: Hypotension, CVP monitoring Room prepared for procedure: Yes Tapeman performed hand hygien: Yes Maximal sterile barrier precau: Mask/Eye shield, Sterile gown, Cap, Sterlie gloves, Large sterlie drape Skin preparation completely dr: Yes Insertion site: Right, Internal jugular Central line catheter type: [id number] dialysis Number of lumens: 3 Post Assessment: Chest X-Ray Notes Central Venous Catheter (CVC, Central Line) Placement Date: 09/14/24 Time: 9:30 AM Indication: Hemodynamic monitoring/Intravenous access Resident: Katherin Hart Attending: Dr. Connolly A time-out was completed verifying correct patient, procedure, site, positioning, and special equipment if applicable. The patient was placed in a dependent position appropriate for central line placement based on the vein to be cannulated. The patients rt neck was prepped and draped in sterile fashion. 1% Lidocaine was used to anesthetize the surrounding skin area. A triple lumen yvonne catheter was introduced into the the rt internal jugular using the Seldinger technique <and under ultrasound guidance>. The catheter was threaded smoothly over the guide wire and appropriate blood return was obtained. Each lumen of the catheter was evacuated of air and flushed with sterile saline. The catheter was then sutured in place to the skin and a sterile dressing applied. Perfusion to the extremity distal to the point of catheter insertion was checked and found to be adequate. Dr. Connolly was present for the entire procedure. Estimated Blood Loss: <10 ml The patient tolerated the procedure well and there were no complications. Date of Service: Sep 14, 2024 Billing Provider: CHRISTAL ABRAHAM MD Common Visit Codes: PROCEDURE ONLY Procedure Codes: [id number] NON-TUNNEL CV CATH CHIARA HART Sep 14, 2024 19:58 CHRISTAL ABRAHAM MD Sep 18, 2024 10:04
--- NOTE | 2024-09-14 20:05 | DVHNC2 ---
Intubation Indication: Respiratory Insufficiency Prep: Preoxygenation Pretreated with: Sedation Medicated with: Succinylcholine, Atracurium Intubation Approach: Orotracheal Notes Endotracheal Intubation Date: 09/14/24 Time: 8:30 AM Indication: Respiratory Distress Resident: Dr. Hart Attending: Dr. Pichardo A time-out was completed verifying correct patient, procedure, site, positioning, and special equipment if applicable. The patient was placed in a flat position. Sedation was obtained using rocuronium 80 mg, and additionally with Etomidate 20mg . The patient was easily ventilated using an ambu bag. The [employer]/ MAC 3 BLADE was used and inserted into the oropharynx at which time there was a Grade 1 view of the vocal cords. A 7.5-turkmen endotracheal tube was inserted and visualized going through the vocal cords. The stylette was removed. Colorimetric change was visualized on the CO2 meter. Breath sounds were heard in both lung renee equally. The endotracheal tube was placed at 23 cm, measured at the teeth. <Attending/Resident> was present for the entire procedure. A chest x-ray was ordered to assess for pneumothorax and verify endotracheal tube placement. Estimated Blood Loss: < 5 ml The patient tolerated the procedure well and there were no complications. Date of Service: Sep 14, 2024 Billing Provider: MINA PICHARDO MD Common Visit Codes: PROCEDURE ONLY Procedure Codes: [id number] CHIARA HART RESIDENT Sep 14, 2024 20:05 MINA PICHARDO MD Sep 15, 2024 11:15
[2024-09-14] MEDS ORDERED: AZITHROMYCIN 500MG/ 250ML 250 ML IV SCH (21:00)
[2024-09-14] MEDS ORDERED: cefTRIAXone 1GM/50ML D5W 50 ML IV SCH (21:00)
--- NOTE | 2024-09-14 23:52 | DVHINCON2 ---
Date of service: Sep 14, 2024 Referring Physician Mynor Segundo MD Reason for Consultation Ventilator management History of Present Illness A 54-year-old woman with PMHx of COPD on home oxygen 2-4 L, schizophrenia, and hypertension who was brought in to ED via EMS on 09/13/24 with a complaint of shortness of breath and cough for 1 day prior to this admission. Patient resides at [facility] and was brought after staff found her lying in the couch cyanotic w/ heavy work of breathing, desaturating with SpO2 in mid/low 80s. En route, patient was given DuoNeb breathing treatment and placed on 8 L o2 through nasal cannula. The patient denies fever flu-like, flu-like symptoms, chest pain, dizziness, diaphoresis, abdominal pain, nausea, vomiting or any change in bowel and bladder function. Patient was admitted for further care, and pulmonary consultation is requested for evaluation and management d/t acute hypoxic respiratory failure requiring mechanical ventilator. Review of Systems: Unable to be obtained - patient A&O x2. Past Medical History: COPD on home oxygen 2-4 L, hypertension, schizophrenia Past Surgical History: None Medications: Reviewed. Allergies: No known drug allergies. Family History: COPD, anxiety, schizophrenia. Social History: Nonsmoker. No alcohol or illicit drug use. Family History: Anxiety disorder FH: COPD (chronic obstructive pulmonary disease) FH: schizophrenia Allergies: Coded Allergies: NO KNOWN ALLERGIES (Unverified , 11/11/23) Home Meds Active Scripts Ondansetron Odt 4MG Tab (ZOFRAN PO) 4 Mg Tb, 4 MG PO TIDPRN PRN for 7 Days, #21 TAB ODT TAB-DISSOLVE IN MOUTH, THEN SWALLOW Prov:CHRISTAL ABRAHAM MD 07/08/24 Reported Medications Haloperidol (Haldol) 5 Mg Tb, 3 MG PO BID, MG 03/15/24 Benztropine Mesylate (Benztropine Mesylate) 1 Mg Tab, 1 MG PO BID, MG 03/15/24 Trazodone Hcl (Trazodone Hcl) 50 Mg Tab, 75 MG PO HS, MG 03/15/24 Lorazepam (ATIVAN TABLET) 0.5 Mg Tb, 0.5 MG PO Q4HPRN PRN for ANXIETY, TAB 03/15/24 Current Medications Current Medications Medications (Trade) Dose Ordered Sig/Elaine Route PRN Reason Start Time Stop Time Status Last Admin Methylprednisolone Sodium Succinate (Solu Medrol) 40 mg BID IV 09/14/24 10:00 09/14/24 11:13 DC Albuterol (Ventolin Medneb) 2.5 mg Q4HR NEB 09/14/24 02:00 09/14/24 22:11 Ipratropium [place] (Atrovent Medneb) 0.5 mg Q4HR NEB 09/14/24 02:00 09/14/24 22:11 Azithromycin 250 ml @ 125 mls/hr Q24H IV 09/14/24 21:00 09/14/24 11:13 DC Ceftriaxone Sodium 50 ml @ 100 mls/hr Q24H IV 09/14/24 21:00 09/14/24 11:14 DC Lorazepam (Ativan Inj) 1 mg Q6HP PRN IV ANXIETY 09/14/24 02:45 09/14/24 04:00 Pantoprazole Sodium (Protonix) 40 mg DAILY IV 09/14/24 10:00 09/14/24 11:47 Enoxaparin Sodium (Lovenox) 40 mg DAILY SC 09/14/24 10:00 09/14/24 11:47 Midazolam HCl 50 ml @ 1 mls/hr Q24H IV 09/14/24 07:45 09/14/24 23:00 Fentanyl Citrate 250 ml @ 2.5 mls/hr Q24H IV 09/14/24 07:45 09/14/24 08:05 Acetaminophen (Ofirmev) 1,000 mg [id number] PRN IV PAIN SCALE 1-3 OR TEMP>100.4 09/14/24 08:30 09/14/24 08:35 DC Norepinephrine Bitartrate 250 ml @ 3.75 mls/hr Q24H IV 09/14/24 10:00 09/14/24 10:20 Methylprednisolone Sodium Succinate (Solu Medrol) 60 mg Q6HR IV 09/14/24 12:00 09/14/24 19:04 Vancomycin HCl 0 ml @ 0 mls/hr UD IV 09/14/24 11:15 Cefepime HCl 50 ml @ 12.5 mls/hr Q8H IV 09/14/24 12:21 09/14/24 20:28 Lactated Ringer's 1,000 ml @ 100 mls/hr Q10H IV 09/14/24 11:15 09/14/24 21:15 Vancomycin HCl 250 ml @ 250 mls/hr Q12H IV 09/15/24 01:00 Vital Signs Vital Signs Date Time Temp Pulse Resp B/P (MAP) Pulse Ox O2 Delivery O2 Flow Rate FiO2 09/14/24 23:15 99.9 99 18 110/52 (71) 99 99.9 09/14/24 22:08 40 09/14/24 19:30 Mechanical Ventilator+ 09/13/24 20:06 3 Physical Exam Gen.: Patient lying in bed in medical ICU. Sedated, intubated on mechanical ventilator. Head: Normocephalic, atraumatic. Eyes: PERRLA. Ears: Normal external anatomy. Throat: Endotracheal tube and orogastric tube in place. Neck: Supple, trachea midline. Chest: Transmitted breath sounds bilaterally. Decreased air entry bilaterally. No wheezing. Bibasilar crackles. Cardiovascular: Positive S1, positive S2. Regular rate and rhythm. Abdomen: Positive bowel sounds in all 4 quadrants. Soft, nontender, nondistended. : Hartman in place. Normal external genitalia. Rectal: Deferred. Skin: Warm, dry. Intact. Extremities: 2+ radial pulses bilaterally. No lower extremity edema. Neuro: Sedated. Labs/Diagnostic Data Labs Test 09/14/24 15:37 09/14/24 12:44 09/14/24 11:43 09/14/24 02:00 Range/Units Lactic Acid Level 1.1 0.4-2.0 mmol/L Blood Gas Specimen Type Arterial Blood Gas Sample Site Right radial Blood Gas Patient Temperature 37.0 Arterial Blood Date Drawn [id number] Arterial Blood pH 7.347 L 7.350-7.450 Arterial Blood Partial Pressure CO2 57.0 H 32.0-45.0 mmHg Arterial Blood Partial Pressure O2 397.6 *H 83.0-108.0 mmHg Arterial Blood HCO3 30.6 H 21.0-28.0 mmol/L Arterial Blood Oxygen Saturation 99.6 H 94.0-98.0 % Arterial Blood Base Excess 3.5 H -2.0-3.0 mmol/L Arterial Blood Oxyhemoglobin 98.3 H 94.0-98.0 % Arterial Blood Carboxyhemoglobin 0.8 0.5-1.5 % Arterial Blood Methemoglobin 0.5 0.0-1.5 % Clay Test Modified Blood Gas Total Hemoglobin 13.50 12.0-16.0 g/dL Blood Gas Set Respiration Rate 18.0 Blood Gas Modality Vent - ac FiO2 % 100.0 Blood Gas Tidal Volume 450.0 Blood Gas PEEP or CPAP 5.0 Blood Gas Critical Value Read Back Yes Blood Gas Notified Whom ivan Hart md Blood Gas Notified Time [id number] Blood Gas Notified By Messenger Copy [place] joy White Blood Count 6.0 4.4-10.8 10^3/uL Red Blood Count 4.18 4.0-5.20 10^6/uL Hemoglobin 12.7 12.2-16.2 g/dL Hematocrit 38.8 36.0-46.0 % Mean Corpuscular Volume 92.9 80.0-100.0 fL Mean Corpuscular Hemoglobin 30.5 28.0-32.0 pg Mean Corpuscular Hemoglobin Concent 32.9 32.0-36.0 g/dL Red Cell Distribution Width 16.1 H 11.8-14.3 % Platelet Count 134 L 140-450 10^3/uL Mean Platelet Volume 8.5 6.9-10.8 fL Neutrophils (%) (Auto) 80.7 H 37.0-80.0 % Lymphocytes (%) (Auto) 3.4 L 10.0-50.0 % Monocytes (%) (Auto) 15.8 H 0.0-12.0 % Eosinophils (%) (Auto) 0.0 0.0-7.0 % Basophils (%) (Auto) 0.1 0.0-2.0 % Neutrophils # (Auto) 4.8 1.6-8.6 10 ^3/uL Lymphocytes # (Auto) 0.2 L 0.4-5.4 10 ^3/uL Monocytes # (Auto) 0.9 0-1.3 10 ^3/uL Eosinophils # (Auto) 0 0-0.8 10 ^3/uL Basophils # (Auto) 0 0-0.2 10 ^3/uL Nucleated Red Blood Cells 0.1 % Sodium Level 138 136-145 mmol/L Potassium Level 4.5 3.5-5.1 mmol/L Chloride Level 101 98-107 mmol/L Carbon Dioxide Level 33 H 20-31 mmol/L Anion Gap 4 L 5-15 Blood Urea Nitrogen 15 9-23 mg/dL Creatinine 0.66 0.550-1.02 mg/dL Glomerular Filtration Rate Calc 104 >90 mL/min BUN/Creatinine Ratio 22.7 H 10.0-20.0 Serum Glucose 118 H 74-106 mg/dL Calcium Level 9.2 8.7-10.4 mg/dL Total Bilirubin 0.5 0.2-1.0 mg/dL Aspartate Amino Transferase (AST) 17 13-40 U/L Alanine Aminotransferase (ALT) 17 7-40 U/L Alkaline Phosphatase 72 46-116 U/L Total Protein 5.5 L 5.7-8.2 g/dL Albumin 3.9 3.2-4.8 g/dL Plasma/Serum Blood Alcohol < 3.0 <10 mg/dL Blood Gas EPAP 6 Blood Gas IPAP 16 Specimen Drawn By Theresa hoover all round logger Test 09/13/24 23:48 09/13/24 23:25 09/13/24 20:20 09/13/24 20:02 Range/Units Urine Color Yellow Yellow Urine Clarity Clear Clear Urine pH 6.0 5.0-9.0 Urine Specific [place] 1.018 1.001-1.035 Urine Protein 1+ H Negative Urine Ketones 1+ H Negative Urine Blood Negative Negative /uL Urine Nitrite Negative Negative Urine Bilirubin Negative Negative Urine Urobilinogen Normal Negative mg/dL Urine Leukocyte Esterase Negative Negative /uL Urine RBC 2 0 - 4 /hpf Urine WBC 4 0 - 5 /hpf Urine Squamous Epithelial Cells Few <5 /hpf Urine Bacteria None seen None Seen /hpf Urine Hyaline Casts Few 0 - 2 /lpf Urine Glucose Normal Normal mg/dL Urine Opiates Screen Neg NEGATIVE Urine Fentanyl Screen Neg NEGATIVE Urine Barbiturates Screen Neg NEGATIVE Urine Phencyclidine Screen Neg NEGATIVE Urine Amphetamines Screen Neg NEGATIVE Urine Benzodiazepines Screen Neg NEGATIVE Urine Cocaine Screen Neg NEGATIVE Urine Cannabinoids Screen Neg NEGATIVE Troponin I High Sensitivity 136 *H </=34 ng/L Influenza Type A Antigen Negative Negative Influenza Type B Antigen Negative Negative SARS-CoV-2 Antigen (Rapid) Negative NEGATIVE Venous Blood pH 7.217 L 7.320-7.430 Venous Blood pCO2 at Patient Temp 79.3 *H 38.0-54.0 mmHg Venous Blood pO2 at Patient Temp 87.4 H 23.0-48.0 mmHg Venous Blood HCO3 31.5 H 22.0-29.0 mmol/L Venous Bld O2 Saturation (Measured) 94.9 H 60.0-85.0 % Venous Blood Base Excess 1.3 -2.0-3.0 mmol/L Venous Blood Total Hemoglobin 14.2 12.0-16.0 g/dL Venous Blood Oxyhemoglobin 92.1 H 0.0-79.0 % Venous Blood Carboxyhemoglobin 2.4 H 0.5-1.5 % Venous Blood Methemoglobin 0.6 0.0-1.5 % Blood Gas Liter Flow 3.00 Test 09/13/24 19:56 Range/Units Hemoglobin A1c 5.6 <5.7 % A1C Magnesium Level 1.7 1.6-2.6 mg/dL B-Type Natriuretic Peptide 128.53 0-100 pg/mL Microbiology Date/Time Source Procedure Growth Status 09/13/24 21:11 Blood Blood Culture - Preliminary NO GROWTH AFTER 24 HOURS OF INCUBATION. Resulted Assessment Impression: Acute hypoxic respiratory failure On mechanical ventilator AE COPD Pneumonia Lung scarring Plan: s/p intubation on mechanical ventilator. CXR image and report reviewed. Devices in place. Scattered areas of scarring and hyperexpansion of the lungs. No pneumothorax. No pleural effusion. ABG reviewed, compensated. On AC mode; RR 18, VT 450, PEEP 5, FiO2 100% Titrate FIO2 to keep O2 saturation above 90%. VAP bundle. Daily ABG and CXR while intubated Sedate for ventilator synchrony Continue bronchodilators. Continue antibiotics. F/u cultures. Pressors for hemodynamic support Titrate to keep mean arterial pressure greater than 65 mmHg. Monitor renal function Monitor electrolytes. Supplement as necessary. Monitor ins and outs. Maintain euvolemia. GI prophylaxis. DVT prophylaxis. Prognosis: Poor given patient's multiple co-morbidities. Condition: Critical Rest of plan per hospitalist and other consultants. A total of 35 minutes of critical care time was spent reviewing the patient record, examining the patient, making a diagnostic and therapeutic plan, discussing this plan with the medical personnel, following up on diagnostic studies and following the patient for clinical stability excluding any and all procedures. At least 50% of this time was spent in direct, [id number] contact. Thank you, Dr. Segundo, for allowing me to participate in this patient's care. Further recommendations will depend on the patient's clinical course. Please do not hesitate to contact me if you have any questions or concerns. This medical document was created using an electronic medical record system with VOZ dictation system. Although these documentations are being carefully reviewed, there may still be some phonetic and typographical changes. The errors are purely typographical, due to imperfection on the software program, and do not reflect any compromise in the patient's medical care. Plan discussed with: Other (RN/MD Segundo) BRITANY MEDRANO MD Sep 14, 2024 23:52
[2024-09-15] VITALS (33 sets, daily range): BP systolic 105–138; BP diastolic 51–75; PULSE 79–100; RESP 16–18; TEMP 97.9–98.6; O2SAT 30–100
[2024-09-15] MEDS: VANCOMYCIN 1GM/250ML KIT 250 ML IV SCH (00:51)
[2024-09-15 05:13] LABS: Basophils # (auto) 0 10 ^3/uL (0-0.2); Basophils % (auto) 0.1 % (0.0-2.0); Eosinophils # (auto) 0 10 ^3/uL (0-0.8); Hematocrit 35.5 % (36.0-46.0); Hemoglobin 11.7 g/dL (12.2-16.2); Lymphocytes # (auto) 0.1 10 ^3/uL (0.4-5.4); Lymphocytes % (auto) 5.2 % (10.0-50.0); Mean Corpuscular Hemoglobin 30.9 pg (28.0-32.0); Mean Corpuscular Hgb Conc. 33.1 g/dL (32.0-36.0); Mean Corpuscular Volume 93.3 fL (80.0-100.0); Monocytes # (auto) 0.2 10 ^3/uL (0-1.3); Monocytes % (auto) 6.6 % (0.0-12.0); Neutrophils # (auto) 2.3 10 ^3/uL (1.6-8.6); Neutrophils % (auto) 88.1 % (37.0-80.0); Nucleated Red Blood Cells % 0.1 %; Platelet Count (auto) 100 10^3/uL (140-450); White Blood Cell 2.7 10^3/uL (4.4-10.8)
[2024-09-15 07:54] LABS: Base Excess 4.8 mmol/L (-2.0-3.0)
--- NOTE | 2024-09-15 18:26 | DVHPNRES ---
Progress Note Date Seen: Sep 15, 2024 Resident Creating Document: SVETLANA BROOKS RESIDENT Has the PT tested + for MRSA If YES, has PT been informed?: No Medical Necessity Reason Pt with a Central, PICC or Fol: Yes The following are medically ne: Jones Catheter Reason for jones catheter: Strict I&O, Total Immobilization Subjective Review of Systems HEENT:Normal (Intubated), CVS:Normal (off of Levophed), RESPIRATORY:Normal (On FiO2 40% intubated, as per ABG we will go down on oxygen), GI:Normal (Bowel sounds positive, no tenderness or rigidity), :Normal, MSK:Normal (No swelling or wound noted), NEURO:Normal (RASS -2, sedated and ventilated) Patient reports: No new complaints Changes from previous H/P or p: No Changes Objective vital signs Vital Sign Date Time Temp Pulse Resp B/P (MAP) Pulse Ox O2 Delivery O2 Flow Rate FiO2 09/15/24 18:10 136/73 09/15/24 17:00 99.1 68 18 96 99.1 09/15/24 15:45 30 09/15/24 10:42 Mechanical Ventilator+ 09/13/24 20:06 3 Total Intake and Output 09/14/24 09/14/24 09/15/24 15:00 23:00 07:00 Intake Total 279.5 ml 2290.00 ml 1205.0 ml Output Total 1100 ml 520 ml Balance 279.5 ml 1190.00 ml 685.0 ml medications Current Medications Medications Dose Ordered Sig/Elaine Route Start Time Stop Time Status Last Admin Dose Admin Albuterol 2.5 mg Q4HR NEB 09/14/24 02:00 09/15/24 13:27 2.5 MG Ipratropium [place] 0.5 mg Q4HR NEB 09/14/24 02:00 09/15/24 13:27 0.5 MG Lorazepam 1 mg Q6HP PRN IV 09/14/24 02:45 09/14/24 04:00 1 MG Pantoprazole Sodium 40 mg DAILY IV 09/14/24 10:00 09/15/24 10:06 40 MG Enoxaparin Sodium 40 mg DAILY SC 09/14/24 10:00 09/15/24 10:06 40 MG Midazolam HCl 50 ml @ 1 mls/hr Q24H IV 09/14/24 07:45 09/15/24 18:10 12 MLS/HR Fentanyl Citrate 250 ml @ 2.5 mls/hr Q24H IV 09/14/24 07:45 09/14/24 08:05 2.5 MLS/HR Norepinephrine Bitartrate 250 ml @ 3.75 mls/hr Q24H IV 09/14/24 10:00 09/14/24 10:20 3.75 MLS/HR Methylprednisolone Sodium Succinate 60 mg Q6HR IV 09/14/24 12:00 09/15/24 18:10 60 MG Vancomycin HCl 0 ml @ 0 mls/hr UD IV 09/14/24 11:15 Cefepime HCl 50 ml @ 12.5 mls/hr Q8H IV 09/14/24 12:21 09/15/24 12:13 12.5 MLS/HR Lactated Ringer's 1,000 ml @ 100 mls/hr Q10H IV 09/14/24 11:15 09/15/24 17:00 100 MLS/HR Vancomycin HCl 250 ml @ 250 mls/hr Q12H IV 09/15/24 01:00 09/15/24 13:23 250 MLS/HR Examination Examination: GENERAL:Normal, HEENT:Normal, NECK:Normal, LUNGS:Abnormal (Intubated bilateral equal air entry on mechanical ventilation), CVS:Abnormal (normotensive), ABDOMEN:Normal, MSK:Normal, SKIN:Normal, NEURO:Abnormal (RASS-2, well sedated) laboratory and microbiology Laboratory Tests 09/15/24 04:42 09/14/24 11:43 Test 09/14/24 11:43 Range/Units Serum Glucose 118 H 74-106 mg/dL Microbiology Date/Time Source Procedure Growth Status 09/13/24 21:11 Blood Blood Culture - Preliminary NO GROWTH AFTER 24 HOURS OF INCUBATION. Resulted Labs and/or images reviewed: Labs reviewed by me, Image(s) reviewed by me Problem List/Assessment/Plan Problem List/Assessment/Plan History of Present Illness: A 54-year-old female with a history of COPD on home oxygen (2-4 L), schizophrenia, and hypertension was brought to the ED with shortness of breath and cough for one day. She was found cyanotic and struggling to breathe at her retirement, with SpO2 in the mid/low 80s. En route, she received a DuoNeb treatment and 8 L of oxygen via nasal cannula. She denies fever, flu-like symptoms, chest pain, dizziness, diaphoresis, abdominal pain, nausea, vomiting, or changes in bowel and bladder movements. At presentation patient was found to have a hypoxic and hypercapnic respiratory failure on BiPAP it worsened with more of CO2 retention with worsening respiratory acidosis needing intubation at ED. patient was also found to have possible infection with aspiration pneumonia and presented in sepsis. Septic shock was treated with IV fluid and Levophed. Patient improved significantly overnight. Plan: # Possible community-acquired Gram-positive versus Gram-negative pneumonia: IV ceftriaxone 1 g daily and IV azithromycin 500 mg >> change to cefepime plus vancomycin, daily negative for viral panel, RSV panel pending. Added azithromycin for atypical coverage. # NSTEMI type 2 secondary to above: Troponin trends are 58>136, likely demand mediated no EKG changes. # Acute on chronic respiratory failure secondary to acute exacerbation of chronic COPD, Echo on 03/09 revealed ejection fraction 50% with grade 1 diastolic dysfunction and RVSP 34 mm Hg. SBT / weaning trial tomorrow AM discussed with RT and RN team. Will lower the sedation. # Acute exacerbation of chronic COPD: Patient is on BiPAP with saturation 98%>> increasing CO2, can not protect airways>> needing intubation at bedside. Patient will benefit from pulmonary rehabilitation in the longterm. minimal vent settings. # sepsis secondary to above: IV vancomycin and cefepime to broadly cover, check for MRSA, blood culture, sputum culture pending. added azithromycin. #-known history of COPD continue, Duoneb with albuterol and ipratropium q.4 hours, patient was initially on Methylprednisolone 40 mg b.i.d.>> change to sepsis dual methylprednisolone 60 mg q.6 hours. # Left posterior fascicular block: Continue close monitoring we will try to avoid fatemeh blockers # Probable anteroseptal infarct, old # Nonspecific T abnormalities inferior leads, troponin -ve # schizophrenia: When patient has access to oral medication we will consider. Patient takes Haldol at home # anxiety episodes: as needed Ativan, we will reintroduce when patient has more alert awake and off of sedation. 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 # insomnia: Trazodone 75 mg at night, patient is sedated no need # vent care: Pulmonology consulted, we will follow. CPAP trial, when appropriate, sedation holiday. # mild thrombocytopenia, worsening: This morning platelets 134, mildly dropped, continues to drop to 100, follow CBC tomorrow if patient continues to have platelet drop we will hold antiplatelets and anticoagulation. Diet: NPO GI prophylaxis: protonix 40mg IV DVT prophylaxis: Levonox 40mg sc carefully follow up CBC / pletlets. Bowel regimen: not needed. Barriers to discharge: Medical diagnosis and management in progress. Patient remains in the ICU/ ANN level of management. Sedated and intubated not fit for discharge. PCP: BRAD Specialist Relevant To Admission: Pulmonology consultation: Dr. Cordova Patient care and plan discussed with Dr. Connolly Disposition: Patient remains in ICU / ANN Critical care time spent 47 minutes. Plan discussed with: Patient, Other (RN, Primary team. ) Date of Service: Sep 15, 2024 Billing Provider: CHRISTAL ABRAHAM MD Common Visit Codes: [id number] CARE-EACH +30MIN SVETLANA BROOKS RESIDENT Sep 15, 2024 18:25 CHRISTAL ABRAHAM MD Sep 18, 2024 09:47
[2024-09-15] MEDS: AZITHROMYCIN 500MG/ 250ML 250 ML IV ONE (19:07)
--- NOTE | 2024-09-15 22:39 | DVHPN2 ---
Progress Note - Dictate Date Seen: Sep 15, 2024 Has the PT tested + for MRSA If YES, has PT been informed?: No Medical Necessity Reason Pt with a Central, PICC or Fol: Yes The following are medically ne: Jones Catheter Reason for jones catheter: Strict I&O, Total Immobilization Subjective Patient seen and examined at bedside. Sedated, intubated on mechanical ventilator. Overnight events reviewed. vital signs Vital Sign Date Time Temp Pulse Resp B/P (MAP) Pulse Ox O2 Delivery O2 Flow Rate FiO2 09/15/24 21:55 127/66 09/15/24 21:15 93 18 95 09/15/24 20:30 98.6 98.6 09/15/24 18:38 30 09/15/24 10:42 Mechanical Ventilator+ 09/13/24 20:06 3 Total Intake and Output 09/14/24 09/14/24 09/15/24 15:00 23:00 07:00 Intake Total 279.5 ml 2290.00 ml 1205.0 ml Output Total 1100 ml 520 ml Balance 279.5 ml 1190.00 ml 685.0 ml medications Current Medications Medications Dose Ordered Sig/Elaine Route Start Time Stop Time Status Last Admin Dose Admin Albuterol 2.5 mg Q4HR NEB 09/14/24 02:00 09/15/24 22:05 2.5 MG Ipratropium [place] 0.5 mg Q4HR NEB 09/14/24 02:00 09/15/24 22:05 0.5 MG Lorazepam 1 mg Q6HP PRN IV 09/14/24 02:45 09/14/24 04:00 1 MG Pantoprazole Sodium 40 mg DAILY IV 09/14/24 10:00 09/15/24 10:06 40 MG Enoxaparin Sodium 40 mg DAILY SC 09/14/24 10:00 09/15/24 10:06 40 MG Midazolam HCl 50 ml @ 1 mls/hr Q24H IV 09/14/24 07:45 09/15/24 21:55 12 MLS/HR Fentanyl Citrate 250 ml @ 2.5 mls/hr Q24H IV 09/14/24 07:45 09/14/24 08:05 2.5 MLS/HR Norepinephrine Bitartrate 250 ml @ 3.75 mls/hr Q24H IV 09/14/24 10:00 09/14/24 10:20 3.75 MLS/HR Methylprednisolone Sodium Succinate 60 mg Q6HR IV 09/14/24 12:00 09/15/24 18:10 60 MG Vancomycin HCl 0 ml @ 0 mls/hr UD IV 09/14/24 11:15 Cefepime HCl 50 ml @ 12.5 mls/hr Q8H IV 09/14/24 12:21 09/15/24 20:46 12.5 MLS/HR Lactated Ringer's 1,000 ml @ 100 mls/hr Q10H IV 09/14/24 11:15 09/15/24 17:00 100 MLS/HR Vancomycin HCl 250 ml @ 250 mls/hr Q12H IV 09/15/24 01:00 09/15/24 13:23 250 MLS/HR Azithromycin 250 ml @ 125 mls/hr DAILY IV 09/16/24 10:00 objective Gen.: Patient lying in bed in medical ICU. Sedated, intubated on mechanical ventilator. Head: Normocephalic, atraumatic. Eyes: PERRLA. Ears: Normal external anatomy. Throat: Endotracheal tube and orogastric tube in place. Neck: Supple, trachea midline. Chest: Transmitted breath sounds bilaterally. Decreased air entry bilaterally. No wheezing. Bibasilar crackles. Cardiovascular: Positive S1, positive S2. Regular rate and rhythm. Abdomen: Positive bowel sounds in all 4 quadrants. Soft, nontender, nondistended. : Jones in place. Normal external genitalia. Rectal: Deferred. Skin: Warm, dry. Intact. Extremities: 2+ radial pulses bilaterally. No lower extremity edema. Neuro: Sedated. laboratory and microbiology Laboratory Tests 09/15/24 04:42 09/14/24 11:43 Test 09/14/24 11:43 Range/Units Serum Glucose 118 H 74-106 mg/dL Assessment/Plan Impression: Acute hypoxic respiratory failure On mechanical ventilator AE COPD Pneumonia Events: Remains on vent support On AC mode; RR 18, VT 450, PEEP 5, FiO2 30% Sedated on Fentanyl ABG reviewed, compensated. Off Levophed, hemodynamically stable. Continue bronchodilators. IV steroids Continue antibiotics. Protonix for GI prophylaxis Labs and imaging reviewed. Rest of plan as noted below. Plan: s/p intubation on mechanical ventilator. CXR image and report reviewed. Devices in place. Scattered areas of scarring and hyperexpansion of the lungs. No pneumothorax. No pleural effusion. ABG reviewed, compensated. On AC mode; RR 18, VT 450, PEEP 5, FiO2 30% Titrate FIO2 to keep O2 saturation above 90%. VAP bundle. Daily ABG and CXR while intubated Sedate for ventilator synchrony Continue bronchodilators. Continue antibiotics. F/u cultures. Pressors if necessary for hemodynamic support Titrate to keep mean arterial pressure greater than 65 mmHg. Monitor renal function Monitor electrolytes. Supplement as necessary. Monitor ins and outs. Maintain euvolemia. GI prophylaxis. DVT prophylaxis. Prognosis: Poor given patient's multiple co-morbidities. Condition: Critical Rest of plan per hospitalist and other consultants. A total of 35 minutes of critical care time was spent reviewing the patient record, examining the patient, making a diagnostic and therapeutic plan, discussing this plan with the medical personnel, following up on diagnostic studies and following the patient for clinical stability excluding any and all procedures. At least 50% of this time was spent in direct, [id number] contact. Thank you, Dr. Segundo, for allowing me to participate in this patient's care. Further recommendations will depend on the patient's clinical course. Please do not hesitate to contact me if you have any questions or concerns. This medical document was created using an electronic medical record system with [employer] dictation system. Although these documentations are being carefully reviewed, there may still be some phonetic and typographical changes. The errors are purely typographical, due to imperfection on the software program, and do not reflect any compromise in the patient's medical care. Plan discussed with: Other (RN) Critical Care Time(min): 35 BRITANY MEDRANO MD Sep 15, 2024 22:39
[2024-09-16] VITALS (64 sets, daily range): BP systolic 99–155; BP diastolic 43–82; PULSE 51–100; RESP 17–19; TEMP 97.7–99; O2SAT 89–99
[2024-09-16 05:24] LABS: Chloride 105 mmol/L (98-107); Potassium 3.9 mmol/L (3.5-5.1); Sodium 141 mmol/L (136-145)
[2024-09-16 05:25] LABS: Anion Gap 4 (5-15); Calcium 9.5 mg/dL (8.7-10.4)
[2024-09-16 05:30] LABS: BUN/Creatinine Ratio 32.6 (10.0-20.0); Blood Urea Nitrogen 14 mg/dL (9-23)
--- NOTE | 2024-09-16 05:30 | DVH ---
CHEST RADIOGRAPH Indication: ON VENTILATOR Technique: Single frontal view of the chest was obtained Comparison: XY CHEST PORTABLE on DOS: 09/14/24, XY CHEST PORTABLE on DOS: 09/14/24, XY CHEST PORTABLE on DOS: 09/13/24 IMPRESSION: Cardiomediastinal silhouette appear stable. Support lines and tubes appear unchanged in position. The endotracheal tube tip is likely at the zohaib, consider retraction of 2 cm for ideal positioning. There has been improvement in pulmonary vascular congestion with persistent interstitial prominence. No sizable effusion or pneumothorax.
[2024-09-16 05:33] LABS: Carbon Dioxide 32 mmol/L (20-31); Glucose 152 mg/dL (74-106)
[2024-09-16 05:43] LABS: Basophils # (auto) 0 10 ^3/uL (0-0.2); Eosinophils # (auto) 0 10 ^3/uL (0-0.8); Hematocrit 35.2 % (36.0-46.0); Hemoglobin 11.6 g/dL (12.2-16.2); Lymphocytes # (auto) 0.1 10 ^3/uL (0.4-5.4); Lymphocytes % (auto) 4.9 % (10.0-50.0); Mean Corpuscular Hemoglobin 30.4 pg (28.0-32.0); Mean Corpuscular Hgb Conc. 32.9 g/dL (32.0-36.0); Mean Corpuscular Volume 92.6 fL (80.0-100.0); Monocytes # (auto) 0.2 10 ^3/uL (0-1.3); Monocytes % (auto) 7.3 % (0.0-12.0); Neutrophils # (auto) 2.6 10 ^3/uL (1.6-8.6); Neutrophils % (auto) 87.8 % (37.0-80.0); Nucleated Red Blood Cells % 0.1 %; Platelet Count (auto) 106 10^3/uL (140-450); Red Cell Distribution Width 16.4 % (11.8-14.3)
--- NOTE | 2024-09-16 08:25 | DVH ---
CHEST RADIOGRAPH Indication: ETT RETRACTION Technique: Single frontal view of the chest was obtained Comparison: XY CHEST XRAY 1 VIEW on DOS: 09/16/24, XY CHEST PORTABLE on DOS: 09/14/24, XY CHEST PORTABL E on DOS: 09/14/24 IMPRESSION: The heart appears normal in size. Endotracheal tube tip is just 1 cm proximal to the zohaib, consider retraction by 1 cm for ideal posi tioning. IJ catheter and enteric tube tip appear unchanged. There is interstitial prominence. No sizable effus ion or pneumothorax.
[2024-09-16] MEDS: diphenhdrAMINE HCL 50 MG/1 ML VL IV ONE (10:00)
[2024-09-16] MEDS: AZITHROMYCIN 500MG/ 250ML 250 ML IV SCH (10:00)
--- NOTE | 2024-09-16 14:16 | DVHPNRES ---
Progress Note Date Seen: Sep 16, 2024 Resident Creating Document: SVETLANA BROOKS RESIDENT Has the PT tested + for MRSA If YES, has PT been informed?: No Medical Necessity Reason Pt with a Central, PICC or Fol: Yes The following are medically ne: Jones Catheter Reason for jones catheter: Strict I&O, Total Immobilization Subjective Review of Systems HEENT:Normal (Intubated), CVS:Normal (Hypotensive on Levophed), RESPIRATORY:Normal (On FiO2 100% intubated, as per ABG we will go down on oxygen), GI:Normal (Bowel sounds positive, no tenderness or rigidity), :Normal, MSK:Normal (No swelling or wound noted), NEURO:Normal (RASS -2, sedated and ventilated) Patient reports: No new complaints Changes from previous H/P or p: No Changes Objective vital signs Vital Sign Date Time Temp Pulse Resp B/P (MAP) Pulse Ox O2 Delivery O2 Flow Rate FiO2 09/16/24 13:15 98.8 77 18 138/74 (95) 94 98.8 09/16/24 12:37 30 09/16/24 06:29 Mechanical Ventilator+ Total Intake and Output 09/15/24 09/15/24 09/16/24 15:00 23:00 07:00 Intake Total 124 ml 2145.5 ml 1176.0 ml Output Total 400 ml 450 ml Balance 124 ml 1745.5 ml 726.0 ml medications Current Medications Medications Dose Ordered Sig/Elaine Route Start Time Stop Time Status Last Admin Dose Admin Albuterol 2.5 mg Q4HR NEB 09/14/24 02:00 09/16/24 10:42 2.5 MG Ipratropium [place] 0.5 mg Q4HR NEB 09/14/24 02:00 09/16/24 10:42 0.5 MG Lorazepam 1 mg Q6HP PRN IV 09/14/24 02:45 09/14/24 04:00 1 MG Pantoprazole Sodium 40 mg DAILY IV 09/14/24 10:00 09/16/24 10:00 40 MG Enoxaparin Sodium 40 mg DAILY SC 09/14/24 10:00 09/16/24 10:00 40 MG Midazolam HCl 50 ml @ 1 mls/hr Q24H IV 09/14/24 07:45 09/16/24 02:03 10 MLS/HR Fentanyl Citrate 250 ml @ 2.5 mls/hr Q24H IV 09/14/24 07:45 09/14/24 08:05 2.5 MLS/HR Norepinephrine Bitartrate 250 ml @ 3.75 mls/hr Q24H IV 09/14/24 10:00 09/14/24 10:20 3.75 MLS/HR Methylprednisolone Sodium Succinate 60 mg Q6HR IV 09/14/24 12:00 09/16/24 12:00 60 MG Vancomycin HCl 0 ml @ 0 mls/hr UD IV 09/14/24 11:15 Cefepime HCl 50 ml @ 12.5 mls/hr Q8H IV 09/14/24 12:21 09/16/24 12:44 12.5 MLS/HR Lactated Ringer's 1,000 ml @ 100 mls/hr Q10H IV 09/14/24 11:15 09/16/24 13:15 100 MLS/HR Vancomycin HCl 250 ml @ 250 mls/hr Q12H IV 09/15/24 01:00 09/16/24 13:00 250 MLS/HR Azithromycin 250 ml @ 125 mls/hr DAILY IV 09/16/24 10:00 09/16/24 10:00 125 MLS/HR Mupirocin 1 applic BID EACHNOSTRI 09/16/24 22:00 09/20/24 23:55 UNV Examination GENERAL:Normal, HEENT:Normal, NECK:Normal, LUNGS:Abnormal (Intubated bilateral equal air entry on mechanical ventilation), CVS:Abnormal (Mildly hypotensive but keeping the map over 65, we will try to wean), ABDOMEN:Normal, MSK:Normal, SKIN:Normal, NEURO:Abnormal (RASS-2, well sedated) laboratory and microbiology Laboratory Tests 09/16/24 04:48 Test 09/16/24 04:48 Range/Units Serum Glucose 152 H 74-106 mg/dL Microbiology Date/Time Source Procedure Growth Status 09/15/24 21:15 Nose MRSA Screen - Final Methicillin Resistant S.aureus Complete 09/15/24 02:00 Sputum Expectorated Sputum Gram Stain - Final Resulted 09/15/24 02:00 Sputum Expectorated Sputum Respiratory Culture - Preliminary Resulted 09/13/24 21:11 Blood Blood Culture - Preliminary NO GROWTH AFTER 48 HOURS OF INCUBATION. Resulted Labs and/or images reviewed: Labs reviewed by me, Image(s) reviewed by me Problem List/Assessment/Plan Problem List/Assessment/Plan History of Present Illness: A 54-year-old female with a history of COPD on home oxygen (2-4 L), schizophrenia, and hypertension was brought to the ED with shortness of breath and cough for one day. She was found cyanotic and struggling to breathe at her half-way, with SpO2 in the mid/low 80s. En route, she received a DuoNeb treatment and 8 L of oxygen via nasal cannula. She denies fever, flu-like symptoms, chest pain, dizziness, diaphoresis, abdominal pain, nausea, vomiting, or changes in bowel and bladder movements. At presentation patient was found to have a hypoxic and hypercapnic respiratory failure on BiPAP it worsened with more of CO2 retention with worsening respiratory acidosis needing intubation at ED. patient was also found to have possible infection with aspiration pneumonia and presented in sepsis. Septic shock was treated with IV fluid and Levophed. Patient improved significantly overnight. Plan: # Possible community-acquired Gram-positive versus Gram-negative pneumonia: IV ceftriaxone 1 g daily and IV azithromycin 500 mg >> change to cefepime plus vancomycin, daily negative for viral panel, RSV panel pending. Added azithromycin for atypical coverage. Continue vancomycin as MRSA +ve. # NSTEMI type 2 secondary to above: Troponin trends are 58>136, likely demand mediated no EKG changes. telemetry unremarkable, few PVCs. # Acute on chronic respiratory failure: secondary to acute exacerbation of chronic COPD, Echo on 03/09 revealed ejection fraction 50% with grade 1 diastolic dysfunction and RVSP 34 mm Hg. SBT / weaning trial tomorrow AM discussed with RT and RN team. Will lower the sedation. # Acute exacerbation of chronic COPD: Patient is on BiPAP with saturation 98%>> increasing CO2, can not protect airways>> needing intubation at bedside. Patient will benefit from pulmonary rehabilitation in the exterminator termite. minimal vent settings. # sepsis secondary to above: IV vancomycin and cefepime to broadly cover, check for MRSA, blood culture, sputum culture pending, growing staphylococcus gram +ve. added azithromycin. #-known history of COPD: continue, Duoneb with albuterol and ipratropium q.4 hours, patient was initially on Methylprednisolone 40 mg b.i.d.>> change to sepsis dual methylprednisolone 60 mg q.6 hours. # Left posterior fascicular block: Continue close monitoring we will try to avoid fatemeh blockers, no concerning findings noted on tele. # Probable anteroseptal infarct, old # Nonspecific T abnormalities inferior leads, troponin -ve # schizophrenia: When patient has access to oral medication we will consider. Patient takes Haldol at home, will add as it might help with agitation. QTC not concerning. # anxiety disorder: as needed Ativan, we will reintroduce when patient has more alert awake and off of sedation. # chronic half-way resident at [facility]: disposition yet to determine. # insomnia: Trazodone 75 mg at night, patient is sedated no need # vent care: Pulmonology consulted, we will follow. CPAP trial, when appropriate, sedation holiday. Minimal vent setting. # mild thrombocytopenia, worsening: This morning platelets 134, mildly dropped, continues to drop to 100, follow CBC tomorrow if patient continues to have platelet drop we will hold antiplatelets and anticoagulation. # Nares +ve for MRSA: 5 days of mupirocin bid to continue. # Oropharyngeal swelling: no known allergen or probably cause of tongue swelling. IV Benadryl 25 mg bid continue. # Leukaemia: WBC mildly low likely sepsis / septic shock related. predominant neutrophilia and lymphopenia. Diet: NPO, on vent. GI prophylaxis: protonix 40mg IV DVT prophylaxis: Lovenox 40mg sc carefully follow up CBC / pletlets (low but stable) Bowel regimen: not needed. Barriers to discharge: Medical diagnosis and management in progress. Patient remains in the ICU/ ANN level of management. Sedated and intubated not fit for discharge. PCP: [facility] Specialist Relevant To Admission: Pulmonology consultation: Dr. Cordova. Patient care and plan discussed with Dr. Connolly Disposition: Patient remains in ICU / [facility] Critical care time spent 49 minutes. I updated ED 19 RN and RT for CPAP/SBT/SWT trials. Plan discussed with: Patient, Other My Orders My Orders Orders - SVETLANA BROOKS RESIDENT Procedure Category Date Status Time Azithromycin 500mg/ PHA 09/16/24 In Process 250ml (Zithromax 50 10:00 Mupirocin 2% Oint PHA 09/16/24 Logged Mrsa Nares (Bactroban 22:00 Date of Service: Sep 16, 2024 Billing Provider: CHRISTAL ABRAHAM MD Common Visit Codes: [id number] CARE-EACH +30MIN SVETLANA BROOKS RESIDENT Sep 16, 2024 14:16 CHRISTAL ABRAHAM MD Sep 18, 2024 09:50
--- NOTE | 2024-09-16 16:52 | DVH ---
CHEST RADIOGRAPH Indication: NG TUBE PLACEMENT Technique: Single frontal view of the chest was obtained COMPARISON: XY CHEST PORTABLE on DOS: 09/16/24, XY CHEST XRAY 1 VIEW on DOS: 09/16/24, XY CHEST PORTABLE on DOS: 09/14/24, XY CHEST PORTABLE on DOS: 09/14/24, XY CHEST PORTABLE on DOS: 09/13/24 FINDINGS: Lines and Tubes: Distal endotracheal tube not well appreciated. Repeat exam centered over the zohaib would be helpful. Enteric tube is seen coursing into the stomach. Patchy interstitial infiltrates not ed. Both lung renee well expanded. Lungs: Clear Pleura: No effusion. No pneumothorax. Cardiomediastinal contours: Unremarkable Bones: Unremarkable IMPRESSION: 1. Distal endotracheal tube not well delineated. Repeat exam centered over the zohaib would be helpfu l for further assessment. 2. Both lung renee are well expanded. 3. Normal heart size..
[2024-09-16] MEDS: HALOPERIDOL 5 MG TAB NG SCH (20:19)
[2024-09-16] MEDS: VANCOMYCIN 1GM/250ML KIT 250 ML IV SCH (20:19)
[2024-09-16] MEDS: MUPIROCIN 2% OINT 15gm or 22gm FOR MRSA NARES EACHNOSTRI SCH (22:27)
--- NOTE | 2024-09-16 23:21 | DVHPN2 ---
Progress Note - Dictate Date Seen: Sep 16, 2024 Has the PT tested + for MRSA If YES, has PT been informed?: No Medical Necessity Reason Pt with a Central, PICC or Fol: Yes The following are medically ne: Jones Catheter Reason for jones catheter: Strict I&O, Total Immobilization Subjective Patient seen and examined at bedside. Sedated, intubated on mechanical ventilator. Overnight events reviewed. vital signs Vital Sign Date Time Temp Pulse Resp B/P (MAP) Pulse Ox O2 Delivery O2 Flow Rate FiO2 09/16/24 22:00 18 Mechanical Ventilator+ 30 30 09/16/24 22:00 61 154/66 (95) 94 09/16/24 20:00 99.0 99.0 Total Intake and Output 09/15/24 09/15/24 09/16/24 15:00 23:00 07:00 Intake Total 124 ml 2145.5 ml 1176.0 ml Output Total 400 ml 450 ml Balance 124 ml 1745.5 ml 726.0 ml medications Current Medications Medications Dose Ordered Sig/Elaine Route Start Time Stop Time Status Last Admin Dose Admin Albuterol 2.5 mg Q4HR NEB 09/14/24 02:00 09/16/24 21:43 2.5 MG Ipratropium [place] 0.5 mg Q4HR NEB 09/14/24 02:00 09/16/24 21:43 0.5 MG Lorazepam 1 mg Q6HP PRN IV 09/14/24 02:45 09/14/24 04:00 1 MG Pantoprazole Sodium 40 mg DAILY IV 09/14/24 10:00 09/16/24 10:00 40 MG Enoxaparin Sodium 40 mg DAILY SC 09/14/24 10:00 09/16/24 10:00 40 MG Midazolam HCl 50 ml @ 1 mls/hr Q24H IV 09/14/24 07:45 09/16/24 02:03 10 MLS/HR Fentanyl Citrate 250 ml @ 2.5 mls/hr Q24H IV 09/14/24 07:45 09/14/24 08:05 2.5 MLS/HR Norepinephrine Bitartrate 250 ml @ 3.75 mls/hr Q24H IV 09/14/24 10:00 09/14/24 10:20 3.75 MLS/HR Methylprednisolone Sodium Succinate 60 mg Q6HR IV 09/14/24 12:00 09/16/24 18:00 60 MG Vancomycin HCl 0 ml @ 0 mls/hr UD IV 09/14/24 11:15 Cefepime HCl 50 ml @ 12.5 mls/hr Q8H IV 09/14/24 12:21 09/16/24 20:19 12.5 MLS/HR Lactated Ringer's 1,000 ml @ 100 mls/hr Q10H IV 09/14/24 11:15 09/16/24 13:15 100 MLS/HR Azithromycin 250 ml @ 125 mls/hr DAILY IV 09/16/24 10:00 09/16/24 10:00 125 MLS/HR Mupirocin 1 applic BID EACHNOSTRI 09/16/24 22:00 09/20/24 23:55 09/16/24 22:27 1 APPLIC Haloperidol 5 mg BID NG 09/16/24 22:00 09/16/24 20:19 5 MG Vancomycin HCl 250 ml @ 250 mls/hr Q8H IV 09/16/24 21:00 09/16/24 20:19 250 MLS/HR Dexmedetomidine HCl 400 mcg/ Dextrose 100 ml @ 2.725 mls/ hr Q24H IV 09/16/24 15:30 09/16/24 17:20 2.725 MLS/HR objective Gen.: Patient lying in bed in medical ICU. Sedated, intubated on mechanical ventilator. Head: Normocephalic, atraumatic. Eyes: PERRLA. Ears: Normal external anatomy. Throat: Endotracheal tube and orogastric tube in place. Neck: Supple, trachea midline. Chest: Transmitted breath sounds bilaterally. Decreased air entry bilaterally. No wheezing. Bibasilar crackles. Cardiovascular: Positive S1, positive S2. Regular rate and rhythm. Abdomen: Positive bowel sounds in all 4 quadrants. Soft, nontender, nondistended. : Jones in place. Normal external genitalia. Rectal: Deferred. Skin: Warm, dry. Intact. Extremities: 2+ radial pulses bilaterally. No lower extremity edema. Neuro: Sedated. laboratory and microbiology Laboratory Tests 09/16/24 04:48 Test 09/16/24 04:48 Range/Units Serum Glucose 152 H 74-106 mg/dL Assessment/Plan Impression: Acute hypoxic respiratory failure On mechanical ventilator AE COPD Pneumonia Events: Remains on vent support On AC mode; RR 18, VT 450, PEEP 5, FiO2 30% Sedated on Fentanyl Precedex drip. Patient failed CPAP in the AM. ABG reviewed, compensated. CXR reviewed, reveals patchy interstitial infiltrates. Devices in place. Continue bronchodilators. IV steroids Continue antibiotics. Taper sedation Plan for CPAP in the AM. Protonix for GI prophylaxis Labs and imaging reviewed. Rest of plan as noted below. Plan: s/p intubation on mechanical ventilator. On AC mode; RR 18, VT 450, PEEP 5, FiO2 30% Titrate FIO2 to keep O2 saturation above 90%. VAP bundle. Daily ABG and CXR while intubated Sedate for ventilator synchrony Continue bronchodilators. Continue antibiotics. F/u cultures. Pressors if necessary for hemodynamic support Titrate to keep mean arterial pressure greater than 65 mmHg. Monitor renal function Monitor electrolytes. Supplement as necessary. Monitor ins and outs. Maintain euvolemia. GI prophylaxis. DVT prophylaxis. Prognosis: Poor given patient's multiple co-morbidities. Condition: Critical Rest of plan per hospitalist and other consultants. A total of 35 minutes of critical care time was spent reviewing the patient record, examining the patient, making a diagnostic and therapeutic plan, discussing this plan with the medical personnel, following up on diagnostic studies and following the patient for clinical stability excluding any and all procedures. At least 50% of this time was spent in direct, [id number] contact. Thank you, Dr. Segundo, for allowing me to participate in this patient's care. Further recommendations will depend on the patient's clinical course. Please do not hesitate to contact me if you have any questions or concerns. This medical document was created using an electronic medical record system with [employer] dictation system. Although these documentations are being carefully reviewed, there may still be some phonetic and typographical changes. The errors are purely typographical, due to imperfection on the software program, and do not reflect any compromise in the patient's medical care. Plan discussed with: Other (RN) Critical Care Time(min): 35 BRITANY MEDRANO MD Sep 16, 2024 23:21
[2024-09-17] VITALS (62 sets, daily range): BP systolic 104–164; BP diastolic 61–111; PULSE 53–96; RESP 13–24; TEMP 97.9–98.6; O2SAT 82–99
[2024-09-17 03:07] LABS: Basophils # (auto) 0 10 ^3/uL (0-0.2); Eosinophils # (auto) 0 10 ^3/uL (0-0.8); Lymphocytes # (auto) 0.2 10 ^3/uL (0.4-5.4); Lymphocytes % (auto) 4.8 % (10.0-50.0); Mean Corpuscular Hemoglobin 30.1 pg (28.0-32.0); Mean Corpuscular Hgb Conc. 32.5 g/dL (32.0-36.0); Mean Corpuscular Volume 92.6 fL (80.0-100.0); Monocytes # (auto) 0.2 10 ^3/uL (0-1.3); Neutrophils # (auto) 3.4 10 ^3/uL (1.6-8.6); Neutrophils % (auto) 90.2 % (37.0-80.0); Nucleated Red Blood Cells % 0.1 %; Platelet Count (auto) 122 10^3/uL (140-450); Red Blood Cells 3.99 10^6/uL (4.0-5.20); Red Cell Distribution Width 16.6 % (11.8-14.3); White Blood Cell 3.8 10^3/uL (4.4-10.8)
[2024-09-17 03:21] LABS: Alanine Aminotransferase 12 U/L (7-40); Albumin 3.4 g/dL (3.2-4.8); Alkaline Phosphatase 47 U/L (46-116); Anion Gap 5 (5-15); BUN/Creatinine Ratio 45.5 (10.0-20.0); Blood Urea Nitrogen 20 mg/dL (9-23); Calcium 9.6 mg/dL (8.7-10.4); Carbon Dioxide 29 mmol/L (20-31); Potassium 4.4 mmol/L (3.5-5.1); Sodium 142 mmol/L (136-145)
[2024-09-17 03:22] LABS: Aspartate Aminotransferase < 8 U/L (13-40); Bilirubin, Total 0.3 mg/dL (0.2-1.0); Chloride 108 mmol/L (98-107); Glucose 163 mg/dL (74-106); Total Protein 4.9 g/dL (5.7-8.2)
--- NOTE | 2024-09-17 06:43 | DVH ---
CHEST RADIOGRAPH Indication: RESPIRATORY FAILURE Technique: Single frontal view of the chest was obtained Comparison: XY CHEST XRAY 1 VIEW on DOS: 09/16/24 FINDINGS: Lines and Tubes: There is a right central venous catheter with its tip terminating in the superior ve na cava. Endotracheal tube terminates 2.8 cm above the zohaib. The enteric tube courses below the lef t hemidiaphragm and the tip extends outside the field of view. Lungs: Patchy right basilar opacity. Pleura: No effusion. No pneumothorax. Cardiomediastinal contours: Unremarkable Bones: No acute osseous abnormality. IMPRESSION: 1. Support lines and tubes are unchanged in position. 2. Patchy right basilar opacity.
[2024-09-17 06:52] LABS: Base Excess 2.7 mmol/L (-2.0-3.0)
--- NOTE | 2024-09-17 19:03 | DVHPNRES ---
Progress Note Date Seen: Sep 17, 2024 Resident Creating Document: SVETLANA BROOKS RESIDENT Has the PT tested + for MRSA If YES, has PT been informed?: No Medical Necessity Reason Pt with a Central, PICC or Fol: Yes The following are medically ne: Jones Catheter Reason for jones catheter: Strict I&O, Total Immobilization Subjective Review of Systems HEENT:Normal (Intubated), CVS:Normal (Hypotensive on Levophed), RESPIRATORY:Normal (On FiO2 100% intubated, as per ABG we will go down on oxygen), GI:Normal (Bowel sounds positive, no tenderness or rigidity), :Normal, MSK:Normal (No swelling or wound noted), NEURO:Normal (RASS -2, sedated and ve tilated) CPAP trial fails this morning , at the decreased off patient's saturation patient becomes agitated, likely due to underlying schizophrenia/behavioral disorder, a home dose of haloperidol side, if needed we will go higher on the antipsychotic /anti anxiety medications. Overnight patient's sputum grew MRSA. Objective vital signs Vital Sign Date Time Temp Pulse Resp B/P (MAP) Pulse Ox O2 Delivery O2 Flow Rate FiO2 09/17/24 18:26 80 18 142/76 (98) 93 30 09/17/24 18:00 98.2 98.2 09/17/24 09:48 Mechanical Ventilator+ Total Intake and Output 09/16/24 09/16/24 09/17/24 15:00 23:00 07:00 Intake Total 1358.0 ml 1114.613 ml 1166.15 ml Output Total 550 ml 350 ml Balance 1358.0 ml 564.613 ml 816.15 ml medications Current Medications Medications Dose Ordered Sig/Elaine Route Start Time Stop Time Status Last Admin Dose Admin Albuterol 2.5 mg Q4HR NEB 09/14/24 02:00 09/17/24 18:25 2.5 MG Ipratropium [place] 0.5 mg Q4HR NEB 09/14/24 02:00 09/17/24 18:25 0.5 MG Lorazepam 1 mg Q6HP PRN IV 09/14/24 02:45 09/14/24 04:00 1 MG Pantoprazole Sodium 40 mg DAILY IV 09/14/24 10:00 09/17/24 11:04 40 MG Enoxaparin Sodium 40 mg DAILY SC 09/14/24 10:00 09/17/24 11:05 40 MG Midazolam HCl 50 ml @ 1 mls/hr Q24H IV 09/14/24 07:45 09/17/24 08:07 1 MLS/HR Fentanyl Citrate 250 ml @ 2.5 mls/hr Q24H IV 09/14/24 07:45 09/17/24 07:45 2.5 MLS/HR Norepinephrine Bitartrate 250 ml @ 3.75 mls/hr Q24H IV 09/14/24 10:00 09/14/24 10:20 3.75 MLS/HR Methylprednisolone Sodium Succinate 60 mg Q6HR IV 09/14/24 12:00 09/17/24 18:00 60 MG Vancomycin HCl 0 ml @ 0 mls/hr UD IV 09/14/24 11:15 Cefepime HCl 50 ml @ 12.5 mls/hr Q8H IV 09/14/24 12:21 09/17/24 13:25 12.5 MLS/HR Lactated Ringer's 1,000 ml @ 100 mls/hr Q10H IV 09/14/24 11:15 09/17/24 09:20 100 MLS/HR Azithromycin 250 ml @ 125 mls/hr DAILY IV 09/16/24 10:00 09/17/24 10:00 125 MLS/HR Mupirocin 1 applic BID EACHNOSTRI 09/16/24 22:00 09/20/24 23:55 09/17/24 10:00 1 APPLIC Haloperidol 5 mg BID NG 09/16/24 22:00 09/17/24 11:04 5 MG Vancomycin HCl 250 ml @ 250 mls/hr Q8H IV 09/16/24 21:00 09/17/24 13:00 250 MLS/HR Dexmedetomidine HCl 400 mcg/ Dextrose 100 ml @ 2.725 mls/ hr Q24H IV 09/16/24 15:30 09/17/24 07:15 5.45 MLS/HR Examination GENERAL:Normal, HEENT:Normal, NECK:Normal, LUNGS:Abnormal (Intubated bilateral equal air entry on mechanical ventilation), CVS:Abnormal (Mildly hypotensive but keeping the map over 65, we will try to wean), ABDOMEN:Normal, MSK:Normal, SKIN:Normal, NEURO:Abnormal (RASS-2, well sedated) laboratory and microbiology Laboratory Tests 09/17/24 02:34 Test 09/17/24 02:34 Range/Units Serum Glucose 163 H 74-106 mg/dL Microbiology Date/Time Source Procedure Growth Status 09/15/24 21:15 Nose MRSA Screen - Final Methicillin Resistant S.aureus Complete 09/15/24 02:00 Sputum Expectorated Sputum Gram Stain - Final Complete 09/15/24 02:00 Respiratory Culture - Final Methicillin Resistant S.aureus Complete 09/13/24 21:11 Blood Blood Culture - Preliminary NO GROWTH AFTER 72 HOURS OF INCUBATION. Resulted Labs and/or images reviewed: Labs reviewed by me, Image(s) reviewed by me Problem List/Assessment/Plan Problem List/Assessment/Plan History of Present Illness: Ms. White, 54-year-old female with a history of COPD on home oxygen (2-4 L), schizophrenia, and hypertension was brought to the ED with shortness of breath and cough for one day. She was found cyanotic and struggling to breathe at her correction, with SpO2 in the mid/low 80s. En route, she received a DuoNeb treatment and 8 L of oxygen via nasal cannula. She denies fever, flu-like symptoms, chest pain, dizziness, diaphoresis, abdominal pain, nausea, vomiting, or changes in bowel and bladder movements. At presentation patient was found to have a hypoxic and hypercapnic respiratory failure on BiPAP it worsened with more of CO2 retention with worsening respiratory acidosis needing intubation at ED. patient was also found to have possible infection with aspiration pneumonia and presented in sepsis. Septic shock was treated with IV fluid and Levophed. Patient improved significantly overnight. Plan: # Possible community-acquired Gram-positive versus Gram-negative pneumonia: IV ceftriaxone 1 g daily and IV azithromycin 500 mg >> change to cefepime plus vancomycin, daily negative for viral panel, RSV panel pending. Added azithromycin for atypical coverage. Continue vancomycin as MRSA +ve. # NSTEMI type 2 secondary to above: Troponin trends are 58>136, likely demand mediated no EKG changes. telemetry unremarkable, few PVCs. Keep magnesium over 2, potassium over 4 # Acute on chronic respiratory failure: secondary to acute exacerbation of chronic COPD, Echo on 03/09 revealed ejection fraction 50% with grade 1 diastolic dysfunction and RVSP 34 mm Hg. SBT / weaning trial tomorrow AM discussed with RT and RN team. Will lower the sedation. # Acute exacerbation of chronic COPD: Patient is on BiPAP with saturation 98%>> increasing CO2, can not protect airways>> needing intubation at bedside. Patient will benefit from pulmonary rehabilitation in the shelter. minimal vent settings. # sepsis secondary to above: IV vancomycin and cefepime to broadly cover, check for MRSA, blood culture, sputum culture pending, growing staphylococcus gram +ve. added azithromycin. #-known history of COPD: continue, Duoneb with albuterol and ipratropium q.4 hours, patient was initially on Methylprednisolone 40 mg b.i.d.>> change to sepsis dual methylprednisolone 60 mg q.6 hours. # Left posterior fascicular block: Continue close monitoring we will try to avoid fatemeh blockers, no concerning findings noted on tele. # Probable anteroseptal infarct, old # Nonspecific T abnormalities inferior leads, troponin -ve # schizophrenia: When patient has access to oral medication we will consider. Patient takes Haldol at home, will add as it might help with agitation. QTC not concerning. # anxiety disorder: as needed Ativan, we will reintroduce when patient has more alert awake and off of sedation. # chronic [facility] resident at [facility]: disposition yet to determine. # insomnia: Trazodone 75 mg at night, patient is sedated no need # vent care: Pulmonology consulted, we will follow. CPAP trial, when appropriate, sedation holiday. Minimal vent setting. # mild thrombocytopenia, worsening: This morning platelets 134, mildly dropped, continues to drop to 100, follow CBC tomorrow if patient continues to have platelet drop we will hold antiplatelets and anticoagulation. # Nares +ve for MRSA: 5 days of mupirocin bid to continue. # Oropharyngeal swelling: no known allergen or probably cause of tongue swelling. IV Benadryl 25 mg bid continue. # Leukopenia: WBC mildly low likely sepsis / septic shock related. predominant neutrophilia and lymphopenia. Diet: NPO, on vent. Started on Clinimix GI prophylaxis: protonix 40mg IV DVT prophylaxis: Lovenox 40mg sc carefully follow up CBC / pletlets (low but stable) Bowel regimen: not needed. Barriers to discharge: Medical diagnosis and management in progress. Patient remains in the ICU/ [facility] level of management. Sedated and intubated not fit for discharge. PCP: [facility] Specialist Relevant To Admission: Pulmonology consultation: Dr. Cordova. Patient care and plan discussed with Dr. Connolly Disposition: Patient remains in ICU / [facility] Critical care time spent 49 minutes. I updated ED 19 RN and RT. We will try repeat CPAP trial with some recovery. Plan discussed with: Patient, Other (primary team, RN ) Date of Service: Sep 17, 2024 Billing Provider: CHRISTAL ABRAHAM MD Common Visit Codes: [id number] CARE-EACH +30MIN SVETLANA BROOKS RESIDENT Sep 17, 2024 19:03 CHRISTAL ABRAHAM MD Sep 18, 2024 09:56
[2024-09-17] MEDS ORDERED: CLINIMIX PER PHARMACY 0 ML IV SCH (19:15)
--- NOTE | 2024-09-17 19:19 | DVHPN2 ---
Progress Note - Dictate Date Seen: Sep 17, 2024 Has the PT tested + for MRSA If YES, has PT been informed?: No Medical Necessity Reason Pt with a Central, PICC or Fol: Yes The following are medically ne: Jones Catheter Reason for jones catheter: Strict I&O, Total Immobilization Subjective Patient seen and examined at bedside. Sedated, intubated on mechanical ventilator. Overnight events reviewed. vital signs Vital Sign Date Time Temp Pulse Resp B/P (MAP) Pulse Ox O2 Delivery O2 Flow Rate FiO2 09/17/24 18:26 80 18 142/76 (98) 93 30 09/17/24 18:00 98.2 98.2 09/17/24 09:48 Mechanical Ventilator+ Total Intake and Output 09/16/24 09/16/24 09/17/24 15:00 23:00 07:00 Intake Total 1358.0 ml 1114.613 ml 1166.15 ml Output Total 550 ml 350 ml Balance 1358.0 ml 564.613 ml 816.15 ml medications Current Medications Medications Dose Ordered Sig/Elaine Route Start Time Stop Time Status Last Admin Dose Admin Albuterol 2.5 mg Q4HR NEB 09/14/24 02:00 09/17/24 18:25 2.5 MG Ipratropium [place] 0.5 mg Q4HR NEB 09/14/24 02:00 09/17/24 18:25 0.5 MG Lorazepam 1 mg Q6HP PRN IV 09/14/24 02:45 09/14/24 04:00 1 MG Pantoprazole Sodium 40 mg DAILY IV 09/14/24 10:00 09/17/24 11:04 40 MG Enoxaparin Sodium 40 mg DAILY SC 09/14/24 10:00 09/17/24 11:05 40 MG Midazolam HCl 50 ml @ 1 mls/hr Q24H IV 09/14/24 07:45 09/17/24 08:07 1 MLS/HR Fentanyl Citrate 250 ml @ 2.5 mls/hr Q24H IV 09/14/24 07:45 09/17/24 07:45 2.5 MLS/HR Norepinephrine Bitartrate 250 ml @ 3.75 mls/hr Q24H IV 09/14/24 10:00 09/14/24 10:20 3.75 MLS/HR Methylprednisolone Sodium Succinate 60 mg Q6HR IV 09/14/24 12:00 09/17/24 18:00 60 MG Vancomycin HCl 0 ml @ 0 mls/hr UD IV 09/14/24 11:15 Cefepime HCl 50 ml @ 12.5 mls/hr Q8H IV 09/14/24 12:21 09/17/24 13:25 12.5 MLS/HR Lactated Ringer's 1,000 ml @ 100 mls/hr Q10H IV 09/14/24 11:15 09/17/24 09:20 100 MLS/HR Azithromycin 250 ml @ 125 mls/hr DAILY IV 09/16/24 10:00 09/17/24 10:00 125 MLS/HR Mupirocin 1 applic BID EACHNOSTRI 09/16/24 22:00 09/20/24 23:55 09/17/24 10:00 1 APPLIC Haloperidol 5 mg BID NG 09/16/24 22:00 09/17/24 11:04 5 MG Vancomycin HCl 250 ml @ 250 mls/hr Q8H IV 09/16/24 21:00 09/17/24 13:00 250 MLS/HR Dexmedetomidine HCl 400 mcg/ Dextrose 100 ml @ 2.725 mls/ hr Q24H IV 09/16/24 15:30 09/17/24 07:15 5.45 MLS/HR objective Gen.: Patient lying in bed in medical ICU. Sedated, intubated on mechanical ventilator. Head: Normocephalic, atraumatic. Eyes: PERRLA. Ears: Normal external anatomy. Throat: Endotracheal tube and orogastric tube in place. Neck: Supple, trachea midline. Chest: Transmitted breath sounds bilaterally. Decreased air entry bilaterally. No wheezing. Bibasilar crackles. Cardiovascular: Positive S1, positive S2. Regular rate and rhythm. Abdomen: Positive bowel sounds in all 4 quadrants. Soft, nontender, nondistended. : Jones in place. Normal external genitalia. Rectal: Deferred. Skin: Warm, dry. Intact. Extremities: 2+ radial pulses bilaterally. No lower extremity edema. Neuro: Sedated. laboratory and microbiology Laboratory Tests 09/17/24 02:34 Test 09/17/24 02:34 Range/Units Serum Glucose 163 H 74-106 mg/dL Assessment/Plan Impression: Acute hypoxic respiratory failure On mechanical ventilator AE COPD Pneumonia Events: Remains on vent support On AC mode; RR 18, VT 450, PEEP 5, FiO2 30% Sedated on Fentanyl 150 mcg/hr and Versed 5 mg/hr. Patient failed CPAP - bradycardia, not following commands. Haldol given. ABG reviewed, compensated. CXR reviewed, reveals Patchy right basilar opacity. No effusion or pneumothorax. Devices in place. Continue bronchodilators. IV steroids Continue antibiotics. IV fluids at 100 ml/hr. Taper sedation Plan for CPAP in the AM. Protonix for GI prophylaxis Labs and imaging reviewed. Rest of plan as noted below. Plan: s/p intubation on mechanical ventilator. On AC mode; RR 18, VT 450, PEEP 5, FiO2 30% Titrate FIO2 to keep O2 saturation above 90%. VAP bundle. Daily ABG and CXR while intubated Sedate for ventilator synchrony Continue bronchodilators. Continue antibiotics. F/u cultures. Pressors if necessary for hemodynamic support Titrate to keep mean arterial pressure greater than 65 mmHg. Monitor renal function Monitor electrolytes. Supplement as necessary. Monitor ins and outs. Maintain euvolemia. GI prophylaxis. DVT prophylaxis. Prognosis: Poor given patient's multiple co-morbidities. Condition: Critical Rest of plan per hospitalist and other consultants. A total of 35 minutes of critical care time was spent reviewing the patient record, examining the patient, making a diagnostic and therapeutic plan, discussing this plan with the medical personnel, following up on diagnostic studies and following the patient for clinical stability excluding any and all procedures. At least 50% of this time was spent in direct, [id number] contact. Thank you, Dr. Segundo, for allowing me to participate in this patient's care. Further recommendations will depend on the patient's clinical course. Please do not hesitate to contact me if you have any questions or concerns. This medical document was created using an electronic medical record system with Snap[employer] dictation system. Although these documentations are being carefully reviewed, there may still be some phonetic and typographical changes. The errors are purely typographical, due to imperfection on the software program, and do not reflect any compromise in the patient's medical care. Plan discussed with: Other (SIL Pedro) Critical Care Time(min): 35 BRITANY MEDRANO MD Sep 17, 2024 19:19
[2024-09-17] MEDS: diphenhdrAMINE HCL 12.5 MG/5 ML UD GT PRN (20:48)
[2024-09-17] MEDS: methylPREDNISolone SOD SUCC 40 MG/ML VL IV SCH (20:48)
[2024-09-17] MEDS: VANCOMYCIN 1GM/250ML KIT 250 ML IV SCH (20:59)
[2024-09-17] MEDS: AMINO ACID INFUSION IN D5W 1,000 ML IV SCH (22:00)
[2024-09-18] VITALS (105 sets, daily range): BP systolic 105–163; BP diastolic 50–107; PULSE 58–115; RESP 13–20; TEMP 97.5–100.2; O2SAT 90–100
[2024-09-18] MEDS: ACCU-CHEK COMFORT CURVE STRIP VI SCH (00:07)
[2024-09-18] MEDS: InsuLIN REG 1unit/0.01ml Soln (100units/ml) SC SCH (00:10)
[2024-09-18 04:04] LABS: Basophils # (auto) 0 10 ^3/uL (0-0.2); Eosinophils # (auto) 0 10 ^3/uL (0-0.8); Hematocrit 34.2 % (36.0-46.0); Hemoglobin 11.3 g/dL (12.2-16.2); Lymphocytes # (auto) 0.2 10 ^3/uL (0.4-5.4); Lymphocytes % (auto) 5.5 % (10.0-50.0); Mean Corpuscular Hemoglobin 30.4 pg (28.0-32.0); Mean Corpuscular Hgb Conc. 33.2 g/dL (32.0-36.0); Mean Corpuscular Volume 91.8 fL (80.0-100.0); Monocytes # (auto) 0.2 10 ^3/uL (0-1.3); Monocytes % (auto) 4.9 % (0.0-12.0); Neutrophils # (auto) 3.1 10 ^3/uL (1.6-8.6); Neutrophils % (auto) 89.6 % (37.0-80.0); Nucleated Red Blood Cells % 0.1 %; Platelet Count (auto) 118 10^3/uL (140-450); Red Blood Cells 3.73 10^6/uL (4.0-5.20); Red Cell Distribution Width 16.2 % (11.8-14.3); White Blood Cell 3.5 10^3/uL (4.4-10.8)
[2024-09-18 04:08] LABS: Anion Gap 5 (5-15); BUN/Creatinine Ratio 37.5 (10.0-20.0); Blood Urea Nitrogen 12 mg/dL (9-23); Carbon Dioxide 28 mmol/L (20-31); Magnesium 1.8 mg/dL (1.6-2.6); Potassium 3.9 mmol/L (3.5-5.1); Sodium 141 mmol/L (136-145)
[2024-09-18 04:11] LABS: Alanine Aminotransferase 9 U/L (7-40); Albumin 3.1 g/dL (3.2-4.8); Alkaline Phosphatase 42 U/L (46-116); Aspartate Aminotransferase < 8 U/L (13-40); Bilirubin, Total 0.3 mg/dL (0.2-1.0); Chloride 108 mmol/L (98-107); Glucose 178 mg/dL (74-106); Total Protein 4.4 g/dL (5.7-8.2)
--- NOTE | 2024-09-18 05:37 | DVH ---
CHEST RADIOGRAPH Indication: RESPIRATORY FAILURE Technique: Single frontal view of the chest was obtained COMPARISON: XY CHEST PORTABLE on DOS: 09/17/24, XY CHEST XRAY 1 VIEW on DOS: 09/16/24, XY CHEST PORTABLE on DOS: 09/16/24, XY CHEST XRAY 1 VIEW on DOS: 09/16/24, XY CHEST PORTABLE on DOS: 09/14/24 FINDINGS: Lines and Tubes: Endotracheal tube, enteric catheter and right central venous catheter in satisfactor y position. Lungs: Right lower lobe airspace disease. Pleura: No effusion. No pneumothorax. Cardiomediastinal contours: Unremarkable Bones: Unremarkable IMPRESSION: Lines and tubes in satisfactory position. No significant interval change.
[2024-09-18] MEDS ORDERED: POTASSIUM CHL 20MEQ/100ML 100 ML IV ONE (09:00)
--- NOTE | 2024-09-18 09:20 | DVHPNRES ---
Progress Note Date Seen: Sep 18, 2024 Resident Creating Document: MYNOR BROOKS RESIDENT Has the PT tested + for MRSA If YES, has PT been informed?: No Medical Necessity Reason Pt with a Central, PICC or Fol: Yes The following are medically ne: Jones Catheter Reason for jones catheter: Strict I&O, Total Immobilization Objective vital signs Vital Sign Date Time Temp Pulse Resp B/P (MAP) Pulse Ox O2 Delivery O2 Flow Rate FiO2 09/18/24 09:00 66 18 143/72 (95) 98 30 09/18/24 08:15 97.7 207.9 09/18/24 08:00 Mechanical Ventilator+ Total Intake and Output 09/17/24 09/17/24 09/18/24 15:00 23:00 07:00 Intake Total 1596.764 ml 1443.0 ml 1799.5 ml Output Total 450 ml Balance 1596.764 ml 993.0 ml 1799.5 ml medications Current Medications Medications Dose Ordered Sig/Elaine Route Start Time Stop Time Status Last Admin Dose Admin Albuterol 2.5 mg Q4HR NEB 09/14/24 02:00 09/18/24 06:29 2.5 MG Ipratropium [place] 0.5 mg Q4HR NEB 09/14/24 02:00 09/18/24 06:29 0.5 MG Lorazepam 1 mg Q6HP PRN IV 09/14/24 02:45 09/14/24 04:00 1 MG Pantoprazole Sodium 40 mg DAILY IV 09/14/24 10:00 09/18/24 07:40 40 MG Enoxaparin Sodium 40 mg DAILY SC 09/14/24 10:00 09/18/24 07:41 40 MG Midazolam HCl 50 ml @ 1 mls/hr Q24H IV 09/14/24 07:45 09/18/24 03:41 10 MLS/HR Fentanyl Citrate 250 ml @ 2.5 mls/hr Q24H IV 09/14/24 07:45 09/18/24 05:40 30 MLS/HR Norepinephrine Bitartrate 250 ml @ 3.75 mls/hr Q24H IV 09/14/24 10:00 09/14/24 10:20 3.75 MLS/HR Vancomycin HCl 0 ml @ 0 mls/hr UD IV 09/14/24 11:15 Cefepime HCl 50 ml @ 12.5 mls/hr Q8H IV 09/14/24 12:21 09/18/24 03:52 12.5 MLS/HR Lactated Ringer's 1,000 ml @ 100 mls/hr Q10H IV 09/14/24 11:15 09/18/24 03:40 100 MLS/HR Azithromycin 250 ml @ 125 mls/hr DAILY IV 09/16/24 10:00 09/18/24 07:40 125 MLS/HR Mupirocin 1 applic BID EACHNOSTRI 09/16/24 22:00 09/20/24 23:55 09/18/24 07:40 1 APPLIC Haloperidol 5 mg BID NG 09/16/24 22:00 09/18/24 07:40 5 MG Dexmedetomidine HCl 400 mcg/ Dextrose 100 ml @ 2.725 mls/ hr Q24H IV 09/16/24 15:30 09/17/24 07:15 5.45 MLS/HR Amino Acids 0 ml @ 0 mls/hr PER PHARMACY IV 09/17/24 19:15 Diphenhydramine HCl 25 mg Q6HPRN PRN GT 09/17/24 20:15 09/17/24 20:48 25 MG Methylprednisolone Sodium Succinate 40 mg Q8HR IV 09/17/24 22:00 09/18/24 05:44 40 MG Diagnostic Test (Pha) 1 strip Q6HR 09/18/24 00:00 09/18/24 05:34 1 STRIP Insulin Human Regular FOLLOW SLIDING SCALE Q6HR SC 09/18/24 00:00 09/18/24 05:36 4 UNITS Dextrose 50 ml UD IV 09/18/24 00:00 Amino Acids 1,000 ml @ 41 mls/hr DAILY@2200 IV 09/17/24 22:00 09/17/24 22:00 41 MLS/HR Vancomycin HCl 250 ml @ 125 mls/hr Q8H IV 09/17/24 21:00 09/18/24 05:44 125 MLS/HR Examination: GENERAL:Normal (Sedated, intubated, minimal vent settings, Versed fentanyl, failed CPAP trial x2), HEENT:Normal (Central venous catheter intact,), NECK:Normal, LUNGS:Normal (Bilateral clear, FiO2 30%,), CVS:Normal (Unchanged sinus rhythm), ABDOMEN:Normal (BS positive, no distention or rigidity.), MSK:Normal (Can not assess strength, unchanged muscle mass, grossly no pitting edema/injury noted.), SKIN:Normal, NEURO:Normal (Sedated, intubated with RA SSI- 1 to -2), :Normal (foleys) laboratory and microbiology Laboratory Tests 09/18/24 03:02 Test 09/18/24 03:02 Range/Units Serum Glucose 178 H 74-106 mg/dL Microbiology Date/Time Source Procedure Growth Status 09/15/24 21:15 Nose MRSA Screen - Final Methicillin Resistant S.aureus Complete 09/15/24 02:00 Sputum Expectorated Sputum Gram Stain - Final Complete 09/15/24 02:00 Respiratory Culture - Final Methicillin Resistant S.aureus Complete 09/13/24 21:11 Blood Blood Culture - Preliminary NO GROWTH AFTER 72 HOURS OF INCUBATION. Resulted Labs and/or images reviewed: Labs reviewed by me, Image(s) reviewed by me Problem List/Assessment/Plan Problem List/Assessment/Plan ICU Course: Ms. White, 54-year-old female with a history of COPD on home oxygen (2-4 L), schizophrenia, and hypertension was brought to the ED with shortness of breath and cough for one day. She was found cyanotic and struggling to breathe at her fpc, with SpO2 in the mid/low 80s. En route, she received a DuoNeb treatment and 8 L of oxygen via nasal cannula. She denies fever, flu-like symptoms, chest pain, dizziness, diaphoresis, abdominal pain, nausea, vomiting, or changes in bowel and bladder movements. At presentation patient was found to have a hypoxic and hypercapnic respiratory failure on BiPAP it worsened with more of CO2 retention with worsening respiratory acidosis needing intubation at ED. patient was also found to have possible infection with aspiration pneumonia and presented in sepsis. Septic shock was treated with IV fluid and Levophed. Patient improved significantly overnight. Hospitalization day: 5 A. Neurolgy: # Sedated on Fentanyl 150 mcg/hr and Versed 5 mg/hr. # schizophrenia: When patient has access to oral medication we will consider. Patient takes Haldol at home, will add as it might help with agitation. QTC not concerning. # insomnia: Trazodone 75 mg at night, patient is sedated no need # anxiety disorder: as needed Ativan, we will reintroduce when patient has more alert awake and off of sedation. B. Cardiology: # NSTEMI type 2 secondary to above: Troponin trends are 58>136, likely demand mediated no EKG changes. telemetry unremarkable, few PVCs. Keep magnesium over 2, potassium over 4 # Probable anteroseptal infarct, old # Nonspecific T abnormalities inferior leads, troponin -ve # Left posterior fascicular block: Continue close monitoring we will try to avoid fatemeh blockers, no concerning findings noted on tele. C. Respiratory: # Acute exacerbation of chronic COPD: Patient is on BiPAP with saturation 98%>> increasing CO2, can not protect airways>> needing intubation at bedside. Patient will benefit from pulmonary rehabilitation in the detention. minimal vent settings. # Acute on chronic respiratory failure: secondary to acute exacerbation of chronic COPD, Echo on 03/09 revealed ejection fraction 50% with grade 1 diastolic dysfunction and RVSP 34 mm Hg. SBT / weaning trial tomorrow AM discussed with RT and RN team. Will lower the sedation. # vent care: Pulmonology consulted, we will follow. CPAP trial, when appropriate, sedation holiday. Minimal vent setting. # Patient failed CPAP - bradycardia, not following commands. # Sedated and intubated,ABG reviewed, compensated. CXR reviewed, reveals Patchy right basilar opacity. No effusion or pneumothorax. Devices in place. On AC mode; RR 18, VT 450, PEEP 5, FiO2 30% # Possible community-acquired Gram-positive versus Gram-negative pneumonia: IV ceftriaxone 1 g daily and IV azithromycin 500 mg >> change to cefepime plus vancomycin, daily negative for viral panel, RSV panel pending. Added azithromycin for atypical coverage. Continue vancomycin as MRSA +ve. # Oropharyngeal swelling: no known allergen or probably cause of tongue swelling. IV Benadryl 25 mg bid continue. D. Gastrointenstinal: # on PPI E. Geniotourinary: # on foleys F. Infectious Disease: # sepsis secondary to above: IV vancomycin and cefepime to broadly cover, check for MRSA, blood culture, sputum culture pending, growing staphylococcus gram +ve. added azithromycin. # Nares +ve for MRSA: 5 days of mupirocin bid to continue. G. Hematology & Oncology: # Leukopenia: WBC mildly low likely sepsis / septic shock related. predominant neutrophilia and lymphopenia. # mild thrombocytopenia, recovering: This morning platelets 134, mildly dropped, continues to drop to 100, follow CBC tomorrow if patient continues to have platelet drop we will hold antiplatelets and anticoagulation. H. Nephrology: #close intake output. I. Endocrine: # Target BG 140-180 in hospital as per NICE-Sugar trial. J. MSK: #moderate muscle mass, high risk of ICU myopathy #climnimax started K. Prophylaxis: PPI: Protonix DVT: Lovenox L. Lines & Drains (with insertion date): IV Central : Y Arterial line: Y M. Drips: versed, phentanyl. N. Disposition: Remains in ICU, CPAP trial failed, next trial with RT team. The plan was discussed with Dr. Connolly. The patient care consists of total 81 minutes of critical care time excluding the procedures. Chronic [facility] resident at [facility]: disposition yet to determine. Dictated by Mynor Brooks MD with 3M MModal Fluency. Plan discussed with: Patient, Other (RN, primary team. ) My Orders My Orders Orders - MYNOR BROOKS Procedure Category Date Status Time Clinimix Per Pharmacy PHA 09/17/24 In Process 19:15 Vancomycin 1gm/250ml PHA 09/17/24 In Process Kit 21:00 Date of Service: Sep 18, 2024 Billing Provider: CHRISTAL ABRAHAM MD Common Visit Codes: [id number] CARE-EACH +30MIN MYNOR BROOKS Sep 18, 2024 09:19 CHRISTAL ABRAHAM MD Sep 23, 2024 09:04
[2024-09-18] MEDS: methylPREDNISolone SOD SUCC 40 MG/ML VL IV SCH (09:58)
[2024-09-18] MEDS: FUROSEMIDE 40 MG/4 ML VIAL IV ONE (09:58)
[2024-09-18] MEDS: QUEtiapine FUMARATE 25 MG TAB PO ONE (11:08)
--- NOTE | 2024-09-18 14:49 | DVH ---
CT HEAD WITHOUT CONTRAST INDICATION: Rule out stroke or any infarction. EXAM DATE: 09/18/2024 02:28 PM COMPARISON: None RADIATION DOSE: CTDIvol: 54.07 mGy, DLP: 866.91 mGy*cm PROCEDURE: CT scans of the head were obtained from the vertex to the skull base. Sagittal and coronal reconstructions were provided. All CT scans at this medical facility are performed using dose modulation techniques as appropriate t o a performed exam including the following: Automated exposure control was utilized; adjustment of th e MA and/or KV according to patient size; and use of iterative reconstruction technique. FINDINGS: There is sulcal and ventricular prominence. The brain otherwise shows normal morphology a nd maria-white matter differentiation, without intracranial hemorrhage, extra-axial fluid collection, mass effect or acute large vessel infarct.The basal cisterns are patent. The skull and visible facial bones are intact. The paranasal sinuses, mastoid air cells and middle ear cavities are well-aerated. The soft tissues of the scalp are unremarkable. IMPRESSION: No acute intracranial abnormality.
[2024-09-18] MEDS: OLANZapine 5 MG TAB PO SCH (21:40)
--- NOTE | 2024-09-18 23:30 | DVHPN2 ---
Progress Note - Dictate Date Seen: Sep 18, 2024 Has the PT tested + for MRSA If YES, has PT been informed?: No Medical Necessity Reason Pt with a Central, PICC or Fol: Yes The following are medically ne: Jones Catheter Reason for jones catheter: Strict I&O, Total Immobilization Subjective Patient seen and examined at bedside. Sedated, intubated on mechanical ventilator. Overnight events reviewed. vital signs Vital Sign Date Time Temp Pulse Resp B/P (MAP) Pulse Ox O2 Delivery O2 Flow Rate FiO2 09/18/24 22:30 100.0 89 18 136/76 (96) 97 212.0 09/18/24 22:19 30 09/18/24 22:00 Mechanical Ventilator+ Total Intake and Output 09/17/24 09/17/24 09/18/24 15:00 23:00 07:00 Intake Total 1596.764 ml 1443.0 ml 1799.5 ml Output Total 450 ml Balance 1596.764 ml 993.0 ml 1799.5 ml medications Current Medications Medications Dose Ordered Sig/Elaine Route Start Time Stop Time Status Last Admin Dose Admin Albuterol 2.5 mg Q4HR NEB 09/14/24 02:00 09/18/24 22:19 2.5 MG Ipratropium [place] 0.5 mg Q4HR NEB 09/14/24 02:00 09/18/24 22:19 0.5 MG Lorazepam 1 mg Q6HP PRN IV 09/14/24 02:45 09/14/24 04:00 1 MG Pantoprazole Sodium 40 mg DAILY IV 09/14/24 10:00 09/18/24 07:40 40 MG Enoxaparin Sodium 40 mg DAILY SC 09/14/24 10:00 09/18/24 07:41 40 MG Midazolam HCl 50 ml @ 1 mls/hr Q24H IV 09/14/24 07:45 09/18/24 10:38 4 MLS/HR Fentanyl Citrate 250 ml @ 2.5 mls/hr Q24H IV 09/14/24 07:45 09/18/24 05:40 30 MLS/HR Norepinephrine Bitartrate 250 ml @ 3.75 mls/hr Q24H IV 09/14/24 10:00 09/14/24 10:20 3.75 MLS/HR Vancomycin HCl 0 ml @ 0 mls/hr UD IV 09/14/24 11:15 Cefepime HCl 50 ml @ 12.5 mls/hr Q8H IV 09/14/24 12:21 09/18/24 19:48 12.5 MLS/HR Azithromycin 250 ml @ 125 mls/hr DAILY IV 09/16/24 10:00 09/18/24 07:40 125 MLS/HR Mupirocin 1 applic BID EACHNOSTRI 09/16/24 22:00 09/20/24 23:55 09/18/24 21:48 1 APPLIC Dexmedetomidine HCl 400 mcg/ Dextrose 100 ml @ 2.725 mls/ hr Q24H IV 09/16/24 15:30 09/17/24 07:15 5.45 MLS/HR Amino Acids 0 ml @ 0 mls/hr PER PHARMACY IV 09/17/24 19:15 Diphenhydramine HCl 25 mg Q6HPRN PRN GT 09/17/24 20:15 09/17/24 20:48 25 MG Diagnostic Test (Pha) 1 strip Q6HR 09/18/24 00:00 09/18/24 17:18 1 STRIP Insulin Human Regular FOLLOW SLIDING SCALE Q6HR SC 09/18/24 00:00 09/18/24 10:51 8 UNITS Dextrose 50 ml UD IV 09/18/24 00:00 Amino Acids 1,000 ml @ 41 mls/hr DAILY@2200 IV 09/17/24 22:00 09/18/24 21:49 41 MLS/HR Vancomycin HCl 250 ml @ 125 mls/hr Q8H IV 09/17/24 21:00 09/18/24 21:39 125 MLS/HR Methylprednisolone Sodium Succinate 40 mg BID IV 09/18/24 10:00 09/18/24 21:39 40 MG Olanzapine 10 mg DAILY PO 09/18/24 22:00 09/18/24 21:40 10 MG objective Gen.: Patient lying in bed in medical ICU. Sedated, intubated on mechanical ventilator. Head: Normocephalic, atraumatic. Eyes: PERRLA. Ears: Normal external anatomy. Throat: Endotracheal tube and orogastric tube in place. Neck: Supple, trachea midline. Chest: Transmitted breath sounds bilaterally. Decreased air entry bilaterally. No wheezing. Bibasilar crackles. Cardiovascular: Positive S1, positive S2. Regular rate and rhythm. Abdomen: Positive bowel sounds in all 4 quadrants. Soft, nontender, nondistended. : Jones in place. Normal external genitalia. Rectal: Deferred. Skin: Warm, dry. Intact. Extremities: 2+ radial pulses bilaterally. No lower extremity edema. Neuro: Sedated. laboratory and microbiology Laboratory Tests 09/18/24 03:02 Test 09/18/24 03:02 Range/Units Serum Glucose 178 H 74-106 mg/dL Assessment/Plan Impression: Acute hypoxic respiratory failure On mechanical ventilator AE COPD Pneumonia Lung scarring Plan: s/p intubation on mechanical ventilator. CXR image and report reviewed. Devices in place. Scattered areas of scarring and hyperexpansion of the lungs. No pneumothorax. No pleural effusion. ABG reviewed, compensated. On AC mode; RR 18, VT 450, PEEP 5, FiO2 30% Titrate FIO2 to keep O2 saturation above 90%. VAP bundle. Daily ABG and CXR while intubated Sedate for ventilator synchrony - on Fentanyl, Versed. Tapering sedation CPAP trial in the AM. Continue bronchodilators. Continue antibiotics. F/u cultures. Pressors if necessary for hemodynamic support Titrate to keep mean arterial pressure greater than 65 mmHg. Monitor renal function Monitor electrolytes. Supplement as necessary. Monitor ins and outs. Maintain euvolemia. GI prophylaxis. DVT prophylaxis. Prognosis: Poor given patient's multiple co-morbidities. Condition: Critical Rest of plan per hospitalist and other consultants. A total of 35 minutes of critical care time was spent reviewing the patient record, examining the patient, making a diagnostic and therapeutic plan, discussing this plan with the medical personnel, following up on diagnostic studies and following the patient for clinical stability excluding any and all procedures. At least 50% of this time was spent in direct, [id number] contact. Thank you, Dr. Segundo, for allowing me to participate in this patient's care. Further recommendations will depend on the patient's clinical course. Please do not hesitate to contact me if you have any questions or concerns. This medical document was created using an electronic medical record system with [employer] system. Although these documentations are being carefully reviewed, there may still be some phonetic and typographical changes. The errors are purely typographical, due to imperfection on the software program, and do not reflect any compromise in the patient's medical care. Plan discussed with: Other (SIL Richardson) Critical Care Time(min): 35 BRITANY MEDRANO MD Sep 18, 2024 23:30
[2024-09-19] VITALS (93 sets, daily range): BP systolic 109–179; BP diastolic 51–96; PULSE 53–110; RESP 14–29; TEMP 96.4–100; O2SAT 94–100
[2024-09-19 04:11] LABS: Basophils # (auto) 0 10 ^3/uL (0-0.2); Basophils % (auto) 0.2 % (0.0-2.0); Eosinophils # (auto) 0 10 ^3/uL (0-0.8); Hematocrit 39.2 % (36.0-46.0); Hemoglobin 12.7 g/dL (12.2-16.2); Lymphocytes # (auto) 0.3 10 ^3/uL (0.4-5.4); Lymphocytes % (auto) 5.8 % (10.0-50.0); Mean Corpuscular Hemoglobin 29.8 pg (28.0-32.0); Mean Corpuscular Hgb Conc. 32.4 g/dL (32.0-36.0); Mean Corpuscular Volume 91.9 fL (80.0-100.0); Monocytes # (auto) 0.4 10 ^3/uL (0-1.3); Monocytes % (auto) 6.5 % (0.0-12.0); Neutrophils % (auto) 87.5 % (37.0-80.0); Nucleated Red Blood Cells % 0.2 %; Platelet Count (auto) 132 10^3/uL (140-450); Red Blood Cells 4.27 10^6/uL (4.0-5.20); Red Cell Distribution Width 16.3 % (11.8-14.3); White Blood Cell 5.7 10^3/uL (4.4-10.8)
[2024-09-19 04:25] LABS: Potassium 3.7 mmol/L (3.5-5.1)
[2024-09-19 04:26] LABS: Calcium 9.2 mg/dL (8.7-10.4)
[2024-09-19 04:32] LABS: Magnesium 1.7 mg/dL (1.6-2.6)
[2024-09-19 04:33] LABS: Albumin 3.3 g/dL (3.2-4.8); Phosphorus 2.9 mg/dL (2.4-5.1)
[2024-09-19 04:37] LABS: Alkaline Phosphatase 47 U/L (46-116); Anion Gap 1 (5-15); BUN/Creatinine Ratio 34.1 (10.0-20.0); Blood Urea Nitrogen 14 mg/dL (9-23); Calcium 9.5 mg/dL (8.7-10.4); Chloride 103 mmol/L (98-107); Potassium 3.7 mmol/L (3.5-5.1); Sodium 137 mmol/L (136-145)
[2024-09-19 04:38] LABS: Alanine Aminotransferase 9 U/L (7-40); Albumin 3.5 g/dL (3.2-4.8); Aspartate Aminotransferase < 8 U/L (13-40); Carbon Dioxide 33 mmol/L (20-31); Glucose 150 mg/dL (74-106)
[2024-09-19 04:39] LABS: Bilirubin, Total 0.4 mg/dL (0.2-1.0)
[2024-09-19] MEDS: LABETALOL HCL 20 MG/4 ML VL IV ONE (05:23)
--- NOTE | 2024-09-19 05:51 | DVH ---
CHEST RADIOGRAPH Indication: ventilated Technique: Single frontal view of the chest was obtained Comparison: XY CHEST PORTABLE on DOS: 09/18/24, XY CHEST PORTABLE on DOS: 09/17/24, XY CHEST XRAY 1 VIEW on DOS: 09/16/24 IMPRESSION: Heart appears stable in size. Support lines and tubes appear unchanged. Increased opacification of t he right lung base appear similar. No sizable effusion or pneumothorax.
[2024-09-19 09:05] LABS: Base Excess 4.9 mmol/L (-2.0-3.0)
[2024-09-19] MEDS ORDERED: OLANZapine 5 MG TAB PO SCH (10:00)
--- NOTE | 2024-09-19 20:06 | DVHPN2 ---
Reviewed: H&P Changes from previous H/P or p: No Changes General: Per HPI Objective Vitals Vital Signs Date Time Temp Pulse Resp B/P (MAP) Pulse Ox O2 Delivery O2 Flow Rate FiO2 09/19/24 19:45 97.2 56 18 119/61 (80) 100 207.0 09/19/24 17:32 Mechanical Ventilator+ 40 40 Intake/Output Intake and Output 09/19/24 07:00 Intake Total 2862.063 ml Output Total 3650 ml Balance -787.937 ml Intake Oral 150 ml IV Total 2712.063 ml Output Urine Total 3650 ml Exam GEN: intubated sedated. failed SAT again today (gets agitated, delirious, trashing, HTN, fighting vent, unable to calm down or follow commands) CV: RRR, no m/r/g. LUNGS: basilar rales, no WRR ABD: Soft, hypoactive BS, no masses or organomegaly. EXT: skin Warm, well perfused. no rashes. No clubbing, cyanosis, or edema. NEURO: sedated, reflexes intact. Medications Current Medications Medications Dose Ordered Sig/Elaine Route Start Time Stop Time Status Last Admin Dose Admin Albuterol 2.5 mg Q4HR NEB 09/14/24 02:00 09/19/24 19:00 2.5 MG Ipratropium [place] 0.5 mg Q4HR NEB 09/14/24 02:00 09/19/24 19:00 0.5 MG Lorazepam 1 mg Q6HP PRN IV 09/14/24 02:45 09/14/24 04:00 1 MG Pantoprazole Sodium 40 mg DAILY IV 09/14/24 10:00 09/19/24 07:35 40 MG Enoxaparin Sodium 40 mg DAILY SC 09/14/24 10:00 09/19/24 07:35 40 MG Midazolam HCl 50 ml @ 1 mls/hr Q24H IV 09/14/24 07:45 09/19/24 03:30 4 MLS/HR Fentanyl Citrate 250 ml @ 2.5 mls/hr Q24H IV 09/14/24 07:45 09/18/24 23:56 25 MLS/HR Norepinephrine Bitartrate 250 ml @ 3.75 mls/hr Q24H IV 09/14/24 10:00 09/14/24 10:20 3.75 MLS/HR Vancomycin HCl 0 ml @ 0 mls/hr UD IV 09/14/24 11:15 Cefepime HCl 50 ml @ 12.5 mls/hr Q8H IV 09/14/24 12:21 09/19/24 12:35 12.5 MLS/HR Azithromycin 250 ml @ 125 mls/hr DAILY IV 09/16/24 10:00 09/19/24 07:35 125 MLS/HR Mupirocin 1 applic BID EACHNOSTRI 09/16/24 22:00 09/20/24 23:55 09/19/24 07:34 1 APPLIC Dexmedetomidine HCl 400 mcg/ Dextrose 100 ml @ 2.725 mls/ hr Q24H IV 09/16/24 15:30 09/19/24 01:48 2.725 MLS/HR Amino Acids 0 ml @ 0 mls/hr PER PHARMACY IV 09/17/24 19:15 Diphenhydramine HCl 25 mg Q6HPRN PRN GT 09/17/24 20:15 09/17/24 20:48 25 MG Diagnostic Test (Pha) 1 strip Q6HR 09/18/24 00:00 09/19/24 17:20 1 STRIP Insulin Human Regular FOLLOW SLIDING SCALE Q6HR SC 09/18/24 00:00 09/19/24 12:25 2 UNITS Dextrose 50 ml UD IV 09/18/24 00:00 Amino Acids 1,000 ml @ 41 mls/hr DAILY@2200 IV 09/17/24 22:00 09/18/24 21:49 41 MLS/HR Methylprednisolone Sodium Succinate 40 mg BID IV 09/18/24 10:00 09/19/24 07:34 40 MG Olanzapine 10 mg DAILY PO 09/18/24 22:00 09/19/24 07:35 10 MG Laboratory Results Laboratory Tests 09/19/24 03:20 Chemistry Test 09/19/24 03:20 Albumin 3.5 g/dL (3.2-4.8) Calcium Level 9.5 mg/dL (8.7-10.4) Magnesium Level 1.7 mg/dL (1.6-2.6) Phosphorus Level 2.9 mg/dL (2.4-5.1) Total Protein 5.0 g/dL (5.7-8.2) L LFT Test 09/19/24 03:20 Alanine Aminotransferase (ALT) 9 U/L (7-40) Alkaline Phosphatase 47 U/L (46-116) Aspartate Amino Transferase (AST) < 8 U/L (13-40) L Total Bilirubin 0.4 mg/dL (0.2-1.0) Urinalysis Test 09/13/24 23:48 Urine Color Yellow (Yellow) Urine Clarity Clear (Clear) Urine pH 6.0 (5.0-9.0) Urine Specific [place] 1.018 (1.001-1.035) Urine Protein 1+ (Negative) H Urine Ketones 1+ (Negative) H Urine Blood Negative /uL (Negative) Urine Nitrite Negative (Negative) Urine Bilirubin Negative (Negative) Urine Urobilinogen Normal mg/dL (Negative) Urine Leukocyte Esterase Negative /uL (Negative) Urine RBC 2 /hpf (0 - 4) Urine WBC 4 /hpf (0 - 5) Urine Squamous Epithelial Cells Few /hpf (<5) Urine Bacteria None seen /hpf (None Seen) Urine Hyaline Casts Few /lpf (0 - 2) Urine Glucose Normal mg/dL (Normal) Blood Gas Results Test 09/19/24 06:52 Arterial Blood pH 7.424 (7.350-7.450) FiO2 % 30.0 Microbiology Microbiology Date/Time Source Procedure Growth Status 09/15/24 21:15 Nose MRSA Screen - Final Methicillin Resistant S.aureus Complete 09/15/24 02:00 Sputum Expectorated Sputum Gram Stain - Final Complete 09/15/24 02:00 Respiratory Culture - Final Methicillin Resistant S.aureus Complete 09/13/24 21:11 Blood Blood Culture - Final NO GROWTH AFTER 5 DAYS OF INCUBATION. Complete Labs and/or images reviewed: Labs reviewed by me, Image(s) reviewed by me Assessment/Plan Assessment/Plan Update 09/19 patient remains intubated and sedated. Trial of SVT this morning failed as patient while being weaned off status is starts to thrash fight when tachycardic hypertensive unable to control calm down enough following commands. Remains on fentanyl Versed Precedex. continue treatment as COPD exacerbation +/- pneumonia as cause of respiratory failure. Hospitalization day: 6 Neurolgy/Psych # Sedated on Fentanyl 150 mcg/hr and Versed 5 mg/hr. # schizophrenia: When patient has access to oral medication we will consider. Patient takes Haldol at home, will add as it might help with agitation. QTC not concerning. # insomnia: Trazodone 75 mg at night, patient is sedated no need # anxiety disorder: as needed Ativan, we will reintroduce when patient has more alert awake and off of sedation. Respiratory: # Acute exacerbation of chronic COPD: Patient is on BiPAP with saturation 98%>> increasing CO2, can not protect airways>> needing intubation at bedside. 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 minimal vent settings. # Acute on chronic respiratory failure: secondary to acute exacerbation of chronic COPD, Echo on 03/09 revealed ejection fraction 50% with grade 1 diastolic dysfunction and RVSP 34 mm Hg. SBT / weaning trial tomorrow AM discussed with RT and RN team. Will lower the sedation. # vent care: Pulmonology consulted, we will follow. CPAP trial, when appropriate, sedation holiday. Minimal vent setting. # Patient failed CPAP - bradycardia, not following commands. # Sedated and intubated,ABG reviewed, compensated. CXR reviewed, reveals Patchy right basilar opacity. No effusion or pneumothorax. Devices in place. On AC mode; RR 18, VT 450, PEEP 5, FiO2 30% # Possible community-acquired Gram-positive versus Gram-negative pneumonia: IV ceftriaxone 1 g daily and IV azithromycin 500 mg >> change to cefepime plus vancomycin, daily negative for viral panel, RSV panel pending. Added azithromycin for atypical coverage. Continue vancomycin as MRSA +ve. # Oropharyngeal swelling: no known allergen or probably cause of tongue swelling. IV Benadryl 25 mg bid continue. Cardiology: # NSTEMI type 2 secondary to above: Troponin trends are 58>136, likely demand mediated no EKG changes. telemetry unremarkable, few PVCs. Keep magnesium over 2, potassium over 4 # Probable anteroseptal infarct, old # Nonspecific T abnormalities inferior leads, troponin -ve # Left posterior fascicular block: Continue close monitoring we will try to avoid fatemeh blockers, no concerning findings noted on tele. - off all pressors (prior levophed) FENGI/Gastrointenstinal: # on PPI Nutrition - clinimix parenteral [place] 0 stable GI ppx - protonix iv daily Nephrology/Renal: #close intake output. Geniotourinary: # on foleys Infectious Disease: # sepsis secondary to above: IV vancomycin and cefepime to broadly cover, check for MRSA, blood culture, sputum culture pending, growing staphylococcus gram +ve. added azithromycin. # Nares +ve for MRSA: 5 days of mupirocin bid to continue. Hematology & Oncology: # Leukopenia: WBC mildly low likely sepsis / septic shock related. predominant neutrophilia and lymphopenia. # mild thrombocytopenia, recovering: This morning platelets 134, mildly dropped, continues to drop to 100, follow CBC tomorrow if patient continues to have platelet drop we will hold antiplatelets and anticoagulation. Endocrine: # Target BG 140-180 in hospital as per NICE-Sugar trial. MSK/Rheum #moderate muscle mass, high risk of ICU myopathy #climnimax started diet: parenteral clinimix DVT: Lovenox GI Prophylaxis: Protonix Lines & Drains (with insertion date): IV Central : Y Arterial line: Y Drips: versed, phentanyl, precedex Disposition: Remains in ICU, CPAP trial failed, next trial with RT team. Plan discussed with: Patient My Orders Orders - CHRISTAL ABRAHAM MD Procedure Category Date Status Time Complete Blood Count LAB 09/20/24 Verified 04:00 Date of Service: Sep 19, 2024 Billing Provider: CHRISTAL ABRAHAM MD Common Visit Codes: 46489-[id number] CARE-EACH +30MIN CHRISTAL ABRAHAM MD Sep 19, 2024 20:06
--- NOTE | 2024-09-19 22:29 | DVHPN2 ---
Progress Note - Dictate Date Seen: Sep 19, 2024 Has the PT tested + for MRSA If YES, has PT been informed?: No Medical Necessity Reason Pt with a Central, PICC or Fol: Yes The following are medically ne: Jones Catheter Reason for jones catheter: Strict I&O, Total Immobilization Subjective Patient seen and examined at bedside. Sedated, intubated on mechanical ventilator. Overnight events reviewed. vital signs Vital Sign Date Time Temp Pulse Resp B/P (MAP) Pulse Ox O2 Delivery O2 Flow Rate FiO2 09/19/24 21:42 56 18 100 Mechanical Ventilator+ 40 40 09/19/24 21:30 96.4 114/55 (74) 205.5 Total Intake and Output 09/18/24 09/18/24 09/19/24 15:00 23:00 07:00 Intake Total 1184.5 ml 794.5 ml 883.063 ml Output Total 2650 ml 1000 ml Balance 1184.5 ml -1855.5 ml -116.937 ml medications Current Medications Medications Dose Ordered Sig/Elaine Route Start Time Stop Time Status Last Admin Dose Admin Albuterol 2.5 mg Q4HR NEB 09/14/24 02:00 09/19/24 19:00 2.5 MG Ipratropium [place] 0.5 mg Q4HR NEB 09/14/24 02:00 09/19/24 19:00 0.5 MG Lorazepam 1 mg Q6HP PRN IV 09/14/24 02:45 09/14/24 04:00 1 MG Pantoprazole Sodium 40 mg DAILY IV 09/14/24 10:00 09/19/24 07:35 40 MG Enoxaparin Sodium 40 mg DAILY SC 09/14/24 10:00 09/19/24 07:35 40 MG Midazolam HCl 50 ml @ 1 mls/hr Q24H IV 09/14/24 07:45 09/19/24 03:30 4 MLS/HR Fentanyl Citrate 250 ml @ 2.5 mls/hr Q24H IV 09/14/24 07:45 09/18/24 23:56 25 MLS/HR Norepinephrine Bitartrate 250 ml @ 3.75 mls/hr Q24H IV 09/14/24 10:00 09/14/24 10:20 3.75 MLS/HR Vancomycin HCl 0 ml @ 0 mls/hr UD IV 09/14/24 11:15 Cefepime HCl 50 ml @ 12.5 mls/hr Q8H IV 09/14/24 12:21 09/19/24 20:34 12.5 MLS/HR Azithromycin 250 ml @ 125 mls/hr DAILY IV 09/16/24 10:00 09/19/24 07:35 125 MLS/HR Mupirocin 1 applic BID EACHNOSTRI 09/16/24 22:00 09/20/24 23:55 09/19/24 21:52 1 APPLIC Dexmedetomidine HCl 400 mcg/ Dextrose 100 ml @ 2.725 mls/ hr Q24H IV 09/16/24 15:30 09/19/24 01:48 2.725 MLS/HR Amino Acids 0 ml @ 0 mls/hr PER PHARMACY IV 09/17/24 19:15 Diphenhydramine HCl 25 mg Q6HPRN PRN GT 09/17/24 20:15 09/17/24 20:48 25 MG Diagnostic Test (Pha) 1 strip Q6HR 09/18/24 00:00 09/19/24 17:20 1 STRIP Insulin Human Regular FOLLOW SLIDING SCALE Q6HR SC 09/18/24 00:00 09/19/24 12:25 2 UNITS Dextrose 50 ml UD IV 09/18/24 00:00 Amino Acids 1,000 ml @ 41 mls/hr DAILY@2200 IV 09/17/24 22:00 09/19/24 21:52 41 MLS/HR Methylprednisolone Sodium Succinate 40 mg BID IV 09/18/24 10:00 09/19/24 21:52 40 MG Olanzapine 10 mg DAILY PO 09/18/24 22:00 09/19/24 07:35 10 MG objective Gen.: Patient lying in bed in medical ICU. Sedated, intubated on mechanical ventilator. Head: Normocephalic, atraumatic. Eyes: PERRLA. Ears: Normal external anatomy. Throat: Endotracheal tube and orogastric tube in place. Neck: Supple, trachea midline. Chest: Transmitted breath sounds bilaterally. Decreased air entry bilaterally. No wheezing. Bibasilar crackles. Cardiovascular: Positive S1, positive S2. Regular rate and rhythm. Abdomen: Positive bowel sounds in all 4 quadrants. Soft, nontender, nondistended. : Jones in place. Normal external genitalia. Rectal: Deferred. Skin: Warm, dry. Intact. Extremities: 2+ radial pulses bilaterally. No lower extremity edema. Neuro: Sedated. laboratory and microbiology Laboratory Tests 09/19/24 03:20 Test 09/19/24 03:20 Range/Units Serum Glucose 150 H 74-106 mg/dL Assessment/Plan Impression: Acute hypoxic respiratory failure On mechanical ventilator AE COPD Pneumonia Lung scarring Events: Patient remains on mechanical ventilation. On peep of five, FiO2 of 40%. She was on Precedex and Versed drips for sedation. She was on Clinimix for nutritional support. We will continue to taper down sedation as tolerated. Plan for daily awakening trials/spontaneous breathing trial in the morning. Chest x-ray demonstrates right lower lung opacities. No pleural effusion or pneumothorax. ABG reviewed. Compensated. Rest of plan as outlined below. Plan: s/p intubation on mechanical ventilator. CXR image and report reviewed. Devices in place. Scattered areas of scarring and hyperexpansion of the lungs. No pneumothorax. No pleural effusion. ABG reviewed, compensated. On AC mode; RR 18, VT 450, PEEP 5, FiO2 30% Titrate FIO2 to keep O2 saturation above 90%. VAP bundle. Daily ABG and CXR while intubated Sedate for ventilator synchrony - on Fentanyl, Versed. Tapering sedation CPAP trial in the AM. Continue bronchodilators. Continue antibiotics. F/u cultures. Pressors if necessary for hemodynamic support Titrate to keep mean arterial pressure greater than 65 mmHg. Monitor renal function Monitor electrolytes. Supplement as necessary. Monitor ins and outs. Maintain euvolemia. GI prophylaxis. DVT prophylaxis. Prognosis: Poor given patient's multiple co-morbidities. Condition: Critical Rest of plan per hospitalist and other consultants. A total of 35 minutes of critical care time was spent reviewing the patient record, examining the patient, making a diagnostic and therapeutic plan, discussing this plan with the medical personnel, following up on diagnostic studies and following the patient for clinical stability excluding any and all procedures. At least 50% of this time was spent in direct, [id number] contact. Thank you, Dr. Segundo, for allowing me to participate in this patient's care. Further recommendations will depend on the patient's clinical course. Please do not hesitate to contact me if you have any questions or concerns. This medical document was created using an electronic medical record system with [employer] dictation system. Although these documentations are being carefully reviewed, there may still be some phonetic and typographical changes. The errors are purely typographical, due to imperfection on the software program, and do not reflect any compromise in the patient's medical care. Plan discussed with: Other (SIL Richardson, RT, MD) Critical Care Time(min): 35 BRITANY MEDRANO MD Sep 19, 2024 22:29
[2024-09-20] VITALS (107 sets, daily range): BP systolic 107–165; BP diastolic 50–93; PULSE 52–127; RESP 13–34; TEMP 97.2–99.3; O2SAT 67–100
[2024-09-20 04:08] LABS: Basophils # (auto) 0 10 ^3/uL (0-0.2); Basophils % (auto) 0.1 % (0.0-2.0); Eosinophils # (auto) 0 10 ^3/uL (0-0.8); Eosinophils % (auto) 0.1 % (0.0-7.0); Hematocrit 38.6 % (36.0-46.0); Hemoglobin 12.6 g/dL (12.2-16.2); Lymphocytes # (auto) 0.3 10 ^3/uL (0.4-5.4); Lymphocytes % (auto) 6.5 % (10.0-50.0); Mean Corpuscular Hgb Conc. 32.7 g/dL (32.0-36.0); Mean Corpuscular Volume 91.6 fL (80.0-100.0); Monocytes # (auto) 0.3 10 ^3/uL (0-1.3); Monocytes % (auto) 6.9 % (0.0-12.0); Neutrophils # (auto) 3.7 10 ^3/uL (1.6-8.6); Neutrophils % (auto) 86.4 % (37.0-80.0); Platelet Count (auto) 126 10^3/uL (140-450); Red Blood Cells 4.21 10^6/uL (4.0-5.20); Red Cell Distribution Width 15.9 % (11.8-14.3); White Blood Cell 4.3 10^3/uL (4.4-10.8)
[2024-09-20 04:53] LABS: Alanine Aminotransferase < 9 U/L (7-40); Albumin 3.2 g/dL (3.2-4.8); Alkaline Phosphatase 46 U/L (46-116); Anion Gap 3 (5-15); Aspartate Aminotransferase 10 U/L (13-40); Bilirubin, Total 0.3 mg/dL (0.2-1.0); Blood Urea Nitrogen 12 mg/dL (9-23); Calcium 9.1 mg/dL (8.7-10.4); Carbon Dioxide 33 mmol/L (20-31); Chloride 102 mmol/L (98-107); Glucose 147 mg/dL (74-106); Magnesium 1.7 mg/dL (1.6-2.6); Phosphorus 3.5 mg/dL (2.4-5.1); Sodium 138 mmol/L (136-145)
[2024-09-20 04:54] LABS: Total Protein 4.6 g/dL (5.7-8.2)
--- NOTE | 2024-09-20 06:11 | DVH ---
CHEST RADIOGRAPH Indication: VENTILATED Technique: Single frontal view of the chest was obtained COMPARISON: XY CHEST PORTABLE on DOS: 09/19/24, XY CHEST PORTABLE on DOS: 09/18/24, XY CHEST PORTABLE on DOS: 09/17/24, XY CHEST XRAY 1 VIEW on DOS: 09/16/24, XY CHEST PORTABLE on DOS: 09/16/24, XY CHEST PORTABLE on DOS: 09/18/24 FINDINGS: Lines and Tubes: Endotracheal tube, enteric catheter and right central venous catheter in satisfactor y position. Lungs: Right lower lobe airspace disease. Pleura: No effusion. No pneumothorax. Cardiomediastinal contours: Unremarkable Bones: Unremarkable IMPRESSION: Lines and tubes in satisfactory position. No significant interval change.
[2024-09-20 08:20] LABS: Base Excess 6.4 mmol/L (-2.0-3.0)
[2024-09-20] MEDS: VANCOMYCIN 1GM/250ML KIT 250 ML IV STA (09:53)
--- NOTE | 2024-09-20 10:14 | DVHPNRES ---
Progress Note Date Seen: Sep 20, 2024 Resident Creating Document: MYNOR BROOKS RESIDENT Has the PT tested + for MRSA If YES, has PT been informed?: No Medical Necessity Reason Pt with a Central, PICC or Fol: Yes The following are medically ne: Jones Catheter Reason for jones catheter: Strict I&O, Total Immobilization Objective vital signs Vital Sign Date Time Temp Pulse Resp B/P (MAP) Pulse Ox O2 Delivery O2 Flow Rate FiO2 09/20/24 09:36 30 09/20/24 09:36 18 96 Mechanical Ventilator+ 09/20/24 09:36 61 09/20/24 09:30 98.4 126/69 (88) 209.1 Total Intake and Output 09/19/24 09/19/24 09/20/24 15:00 23:00 07:00 Intake Total 604.628 ml 556.403 ml 459.552 ml Output Total 1675 ml 1250 ml Balance 604.628 ml -1118.597 ml -790.448 ml medications Current Medications Medications Dose Ordered Sig/Elaine Route Start Time Stop Time Status Last Admin Dose Admin Albuterol 2.5 mg Q4HR NEB 09/14/24 02:00 09/20/24 02:50 2.5 MG Ipratropium [place] 0.5 mg Q4HR NEB 09/14/24 02:00 09/20/24 02:50 0.5 MG Lorazepam 1 mg Q6HP PRN IV 09/14/24 02:45 09/14/24 04:00 1 MG Pantoprazole Sodium 40 mg DAILY IV 09/14/24 10:00 09/20/24 07:53 40 MG Enoxaparin Sodium 40 mg DAILY SC 09/14/24 10:00 09/20/24 07:53 40 MG Midazolam HCl 50 ml @ 1 mls/hr Q24H IV 09/14/24 07:45 09/20/24 04:57 3 MLS/HR Fentanyl Citrate 250 ml @ 2.5 mls/hr Q24H IV 09/14/24 07:45 09/18/24 23:56 25 MLS/HR Norepinephrine Bitartrate 250 ml @ 3.75 mls/hr Q24H IV 09/14/24 10:00 09/14/24 10:20 3.75 MLS/HR Vancomycin HCl 0 ml @ 0 mls/hr UD IV 09/14/24 11:15 Cefepime HCl 50 ml @ 12.5 mls/hr Q8H IV 09/14/24 12:21 09/20/24 04:24 12.5 MLS/HR Azithromycin 250 ml @ 125 mls/hr DAILY IV 09/16/24 10:00 09/20/24 07:55 125 MLS/HR Mupirocin 1 applic BID EACHNOSTRI 09/16/24 22:00 09/20/24 23:55 09/20/24 07:53 1 APPLIC Dexmedetomidine HCl 400 mcg/ Dextrose 100 ml @ 2.725 mls/ hr Q24H IV 09/16/24 15:30 09/20/24 02:17 6.813 MLS/HR Amino Acids 0 ml @ 0 mls/hr PER PHARMACY IV 09/17/24 19:15 Diphenhydramine HCl 25 mg Q6HPRN PRN GT 09/17/24 20:15 09/17/24 20:48 25 MG Diagnostic Test (Pha) 1 strip Q6HR 09/18/24 00:00 09/20/24 06:04 1 STRIP Insulin Human Regular FOLLOW SLIDING SCALE Q6HR SC 09/18/24 00:00 09/20/24 06:04 2 UNITS Dextrose 50 ml UD IV 09/18/24 00:00 Amino Acids 1,000 ml @ 41 mls/hr DAILY@2200 IV 09/17/24 22:00 09/19/24 21:52 41 MLS/HR Methylprednisolone Sodium Succinate 40 mg BID IV 09/18/24 10:00 09/20/24 09:53 40 MG Olanzapine 10 mg DAILY PO 09/18/24 22:00 09/20/24 07:53 10 MG Vancomycin HCl 250 ml @ 250 mls/hr NOW STAT IV 09/20/24 09:41 09/20/24 10:40 09/20/24 09:53 250 MLS/HR Examination GENERAL:Normal (Awake RASS+1, intubated, minimal vent settings, Versed fentanyl, failed CPAP trial x2), HEENT:Normal (Central venous catheter intact,), NECK:Normal, LUNGS:Normal (Bilateral clear, FiO2 30%,), CVS:Normal (Unchanged sinus rhythm), ABDOMEN:Normal (BS positive, no distention or rigidity.), MSK:Normal (Can not assess strength, unchanged muscle mass, grossly no pitting edema/injury noted.), SKIN:Normal, NEURO:Normal (Sedated, intubated with RA SSI- 1 to -2), :Normal (foleys) laboratory and microbiology Laboratory Tests 09/20/24 03:27 Test 09/20/24 03:27 Range/Units Serum Glucose 147 H 74-106 mg/dL Microbiology Date/Time Source Procedure Growth Status 09/15/24 21:15 Nose MRSA Screen - Final Methicillin Resistant S.aureus Complete 09/15/24 02:00 Sputum Expectorated Sputum Gram Stain - Final Complete 09/15/24 02:00 Respiratory Culture - Final Methicillin Resistant S.aureus Complete 09/13/24 21:11 Blood Blood Culture - Final NO GROWTH AFTER 5 DAYS OF INCUBATION. Complete Labs and/or images reviewed: Labs reviewed by me, Image(s) reviewed by me Problem List/Assessment/Plan Problem List/Assessment/Plan ICU Course: Ms. White, 54-year-old female with a history of COPD on home oxygen (2-4 L), schizophrenia, and hypertension was brought to the ED with shortness of breath and cough for one day. She was found cyanotic and struggling to breathe at her [facility], with SpO2 in the mid/low 80s. En route, she received a DuoNeb treatment and 8 L of oxygen via nasal cannula. She denies fever, flu-like symptoms, chest pain, dizziness, diaphoresis, abdominal pain, nausea, vomiting, or changes in bowel and bladder movements. At presentation patient was found to have a hypoxic and hypercapnic respiratory failure on BiPAP it worsened with more of CO2 retention with worsening respiratory acidosis needing intubation at ED. patient was also found to have possible infection with aspiration pneumonia and presented in sepsis. Septic shock was treated with IV fluid and Levophed. Patient improved significantly overnight. Hospitalization day: 7 A. Neurolgy: # Sedated on Fentanyl 150 mcg/hr and Versed 5 mg/hr. During weaning of sedation patient is agitated, continue with Precedex, as needed Ativan. # schizophrenia: When patient has access to oral medication we will consider. Patient takes Haldol at home, will add as it might help with agitation. QTC not concerning. Patient is started on olanzapine 10, increased olanzapine 20 check for EKG for QTC. # insomnia: Trazodone 75 mg at night, patient is sedated no need # anxiety disorder: as needed Ativan, we will reintroduce when patient has more alert awake and off of sedation. B. Cardiology: # NSTEMI type 2 secondary to above: Troponin trends are 58>136, likely demand mediated no EKG changes. telemetry unremarkable, few PVCs. Keep magnesium over 2, potassium over 4 # Probable anteroseptal infarct, old # Nonspecific T abnormalities inferior leads, troponin -ve # Left posterior fascicular block: Continue close monitoring we will try to avoid fatemeh blockers, no concerning findings noted on tele. C. Respiratory: # Acute exacerbation of chronic COPD: Patient is on BiPAP with saturation 98%>> increasing CO2, can not protect airways>> needing intubation at bedside. Patient will benefit from pulmonary rehabilitation in the local [employer]. minimal vent settings. # Acute on chronic respiratory failure: secondary to acute exacerbation of chronic COPD, Echo on 03/09 revealed ejection fraction 50% with grade 1 diastolic dysfunction and RVSP 34 mm Hg. SBT / weaning trial tomorrow AM discussed with RT and RN team. Will lower the sedation. # vent care: Pulmonology consulted, we will follow. CPAP trial, when appropriate, sedation holiday. Minimal vent setting. # Patient failed CPAP - bradycardia, not following commands. CPAP trial tomorrow/today patient is close to extubation. Keep the patient NPO, swallow eval and further post extubation management as per ICU standard. Patient needs PT post extubation. # Sedated and intubated,ABG reviewed, compensated. CXR reviewed, reveals Patchy right basilar opacity. No effusion or pneumothorax. Devices in place. On AC mode; RR 18, VT 450, PEEP 5, FiO2 30% # Possible community-acquired Gram-positive versus Gram-negative pneumonia: IV ceftriaxone 1 g daily and IV azithromycin 500 mg >> change to cefepime plus vancomycin, daily negative for viral panel, RSV panel pending. Added azithromycin for atypical coverage. Continue vancomycin as MRSA +ve. # Oropharyngeal swelling: no known allergen or probably cause of tongue swelling. IV Benadryl 25 mg bid continue. D. Gastrointenstinal: # on PPI E. Geniotourinary: # on foleys passing urine F. Infectious Disease: # sepsis secondary to above: IV vancomycin and cefepime to broadly cover, check for MRSA, blood culture, sputum culture pending, growing staphylococcus gram +ve. added azithromycin. # Nares +ve for MRSA: 5 days of mupirocin bid to continue. G. Hematology & Oncology: # Leukopenia: WBC mildly low likely sepsis / septic shock related. predominant neutrophilia and lymphopenia. # mild thrombocytopenia, recovering: This morning platelets 134, mildly dropped, continues to drop to 100, follow CBC tomorrow if patient continues to have platelet drop we will hold antiplatelets and anticoagulation. H. Nephrology: #close intake output. # likely contraction alkalosis: Patient's past heavy amount of urine despite the fact patient is not on diuretics. Likely due to auto diuresis in the recovery phase of acute disease. Fluid challenge/LR to continue. I. Endocrine: # Target BG 140-180 in hospital as per NICE-Sugar trial. J. MSK: #moderate muscle mass, high risk of ICU myopathy #climnimax started K. Prophylaxis: PPI: Protonix DVT: Lovenox L. Lines & Drains (with insertion date): IV Central : Y Arterial line: Y M. Drips: versed, phentanyl. N. Disposition: Remains in ICU, CPAP trial failed, next trial with RT team. The plan was discussed with Dr. Connolly. The patient care consists of total 81 minutes of critical care time excluding the procedures. Chronic [facility] resident [facility]: disposition yet to determine. Dictated by Mynor Brooks MD with 3M MModal Fluency. Plan discussed with: Patient, Other (RN, primary team) My Orders My Orders Orders - MYNOR BROOKS Procedure Category Date Status Time Vancomycin Per [facility] 09/19/24 In Process Pharmacy Protoc 13:00 Clinimix Per Pharmacy [facility] 09/19/24 In Process 22:00 Vancomycin 1gm/250ml PHA 09/20/24 In Process Kit 09:41 Date of Service: Sep 20, 2024 Billing Provider: CHRISTAL ABRAHAM MD Common Visit Codes: [id number] CARE-EACH +30MIN MYNOR BROOKS Sep 20, 2024 10:14 CHRISTAL ABRAHAM MD Sep 23, 2024 09:19
[2024-09-20] MEDS: LACTATED RINGER'S 500 ML IV ONE (12:08)
[2024-09-20] MEDS: LACTATED RINGER'S 1,000 ML IV SCH (13:14)
[2024-09-20] MEDS: VANCOMYCIN 1GM/250ML KIT 250 ML IV SCH (21:23)
[2024-09-20] MEDS: LORazepam 2MG/ML-1ML VIAL IV PRN (21:37)
[2024-09-20] MEDS: ACETAMINOPHEN 650 mg PER 20.3 mL UD GT PRN (23:12)
--- NOTE | 2024-09-20 23:52 | DVHPN2 ---
Progress Note - Dictate Date Seen: Sep 20, 2024 Has the PT tested + for MRSA If YES, has PT been informed?: No Medical Necessity Reason Pt with a Central, PICC or Fol: Yes The following are medically ne: Jones Catheter Reason for jones catheter: Strict I&O, Total Immobilization Subjective Patient seen and examined at bedside. Sedated, intubated on mechanical ventilator. Overnight events reviewed. vital signs Vital Sign Date Time Temp Pulse Resp B/P (MAP) Pulse Ox O2 Delivery O2 Flow Rate FiO2 09/20/24 22:40 74 18 124/68 (86) 99 30 09/20/24 18:00 99.0 210.2 09/20/24 17:40 Mechanical Ventilator+ Total Intake and Output 09/19/24 09/19/24 09/20/24 15:00 23:00 07:00 Intake Total 604.628 ml 556.403 ml 459.552 ml Output Total 1675 ml 1250 ml Balance 604.628 ml -1118.597 ml -790.448 ml medications Current Medications Medications Dose Ordered Sig/Elaine Route Start Time Stop Time Status Last Admin Dose Admin Albuterol 2.5 mg Q4HR NEB 09/14/24 02:00 09/20/24 22:40 2.5 MG Ipratropium [place] 0.5 mg Q4HR NEB 09/14/24 02:00 09/20/24 22:40 0.5 MG Pantoprazole Sodium 40 mg DAILY IV 09/14/24 10:00 09/20/24 07:53 40 MG Enoxaparin Sodium 40 mg DAILY SC 09/14/24 10:00 09/20/24 07:53 40 MG Midazolam HCl 50 ml @ 1 mls/hr Q24H IV 09/14/24 07:45 09/20/24 04:57 3 MLS/HR Fentanyl Citrate 250 ml @ 2.5 mls/hr Q24H IV 09/14/24 07:45 09/18/24 23:56 25 MLS/HR Norepinephrine Bitartrate 250 ml @ 3.75 mls/hr Q24H IV 09/14/24 10:00 09/14/24 10:20 3.75 MLS/HR Vancomycin HCl 0 ml @ 0 mls/hr UD IV 09/14/24 11:15 Mupirocin 1 applic BID EACHNOSTRI 09/16/24 22:00 09/20/24 23:55 09/20/24 21:45 1 APPLIC Dexmedetomidine HCl 400 mcg/ Dextrose 100 ml @ 2.725 mls/ hr Q24H IV 09/16/24 15:30 09/20/24 21:58 5.45 MLS/HR Amino Acids 0 ml @ 0 mls/hr PER PHARMACY IV 09/17/24 19:15 Diphenhydramine HCl 25 mg Q6HPRN PRN GT 09/17/24 20:15 09/17/24 20:48 25 MG Diagnostic Test (Pha) 1 strip Q6HR 09/18/24 00:00 09/20/24 23:20 1 STRIP Insulin Human Regular FOLLOW SLIDING SCALE Q6HR SC 09/18/24 00:00 09/20/24 11:22 2 UNITS Dextrose 50 ml UD IV 09/18/24 00:00 Amino Acids 1,000 ml @ 41 mls/hr DAILY@2200 IV 09/17/24 22:00 09/20/24 21:36 41 MLS/HR Methylprednisolone Sodium Succinate 40 mg BID IV 09/18/24 10:00 09/20/24 21:37 40 MG Lactated Ringer's 1,000 ml @ 100 mls/hr Q10H IV 09/20/24 10:30 09/20/24 17:42 100 MLS/HR Lorazepam 1 mg Q4HP PRN IV 09/20/24 13:30 09/20/24 21:37 1 MG Olanzapine 20 mg DAILY PO 09/21/24 10:00 Vancomycin HCl 250 ml @ 250 mls/hr Q12H IV 09/20/24 21:00 09/20/24 21:23 250 MLS/HR Acetaminophen 650 mg Q6HPRN PRN GT 09/20/24 23:15 09/20/24 23:12 650 MG objective Gen.: Patient lying in bed in medical ICU. Sedated, intubated on mechanical ventilator. Head: Normocephalic, atraumatic. Eyes: PERRLA. Ears: Normal external anatomy. Throat: Endotracheal tube and orogastric tube in place. Neck: Supple, trachea midline. Chest: Transmitted breath sounds bilaterally. Decreased air entry bilaterally. No wheezing. Bibasilar crackles. Cardiovascular: Positive S1, positive S2. Regular rate and rhythm. Abdomen: Positive bowel sounds in all 4 quadrants. Soft, nontender, nondistended. : Jones in place. Normal external genitalia. Rectal: Deferred. Skin: Warm, dry. Intact. Extremities: 2+ radial pulses bilaterally. No lower extremity edema. Neuro: Sedated. laboratory and microbiology Laboratory Tests 09/20/24 03:27 Test 09/20/24 03:27 Range/Units Serum Glucose 147 H 74-106 mg/dL Assessment/Plan Impression: Acute hypoxic respiratory failure On mechanical ventilator AE COPD Pneumonia Lung scarring Events: Patient remains on mechanical ventilation. On AC mode; RR 18, VT 450, PEEP 5, FiO2 30% She is on Precedex and Versed drips for sedation. Clinimix for nutritional support. Continue abx - vancomycin Patient is agitated this AM. We will continue to taper down sedation as tolerated. Plan for daily awakening trials/spontaneous breathing trial in the morning. Chest x-ray demonstrates Right lower lobe airspace disease. No pleural effusion or pneumothorax. ABG reviewed. Alkalemia Rest of plan as outlined below. Plan: s/p intubation on mechanical ventilator. CXR image and report reviewed. Devices in place. Scattered areas of scarring and hyperexpansion of the lungs. No pneumothorax. No pleural effusion. ABG reviewed, compensated. On AC mode; RR 18, VT 450, PEEP 5, FiO2 30% Titrate FIO2 to keep O2 saturation above 90%. VAP bundle. Daily ABG and CXR while intubated Sedate for ventilator synchrony Tapering sedation CPAP trial in the AM. Continue bronchodilators. Continue antibiotics. F/u cultures. Pressors if necessary for hemodynamic support Titrate to keep mean arterial pressure greater than 65 mmHg. Monitor renal function Monitor electrolytes. Supplement as necessary. Monitor ins and outs. Maintain euvolemia. GI prophylaxis. DVT prophylaxis. Prognosis: Poor given patient's multiple co-morbidities. Condition: Critical Rest of plan per hospitalist and other consultants. A total of 35 minutes of critical care time was spent reviewing the patient record, examining the patient, making a diagnostic and therapeutic plan, discussing this plan with the medical personnel, following up on diagnostic studies and following the patient for clinical stability excluding any and all procedures. At least 50% of this time was spent in direct, [id number] contact. Thank you, Dr. Segundo, for allowing me to participate in this patient's care. Further recommendations will depend on the patient's clinical course. Please do not hesitate to contact me if you have any questions or concerns. This medical document was created using an electronic medical record system with [employer] dictation system. Although these documentations are being carefully reviewed, there may still be some phonetic and typographical changes. The errors are purely typographical, due to imperfection on the software program, and do not reflect any compromise in the patient's medical care. Plan discussed with: Other (SIL Melgar) Critical Care Time(min): 35 BRITANY MEDRANO MD Sep 20, 2024 23:52
[2024-09-21] VITALS (74 sets, daily range): BP systolic 109–166; BP diastolic 38–95; PULSE 48–121; RESP 18–34; TEMP 98.2–98.7; O2SAT 83–100
[2024-09-21 04:10] LABS: Basophils # (auto) 0 10 ^3/uL (0-0.2); Basophils % (auto) 0.1 % (0.0-2.0); Eosinophils # (auto) 0 10 ^3/uL (0-0.8); Eosinophils % (auto) 0.1 % (0.0-7.0); Hematocrit 34.2 % (36.0-46.0); Hemoglobin 11.3 g/dL (12.2-16.2); Lymphocytes # (auto) 0.3 10 ^3/uL (0.4-5.4); Lymphocytes % (auto) 7.9 % (10.0-50.0); Mean Corpuscular Hemoglobin 30.1 pg (28.0-32.0); Mean Corpuscular Hgb Conc. 33.1 g/dL (32.0-36.0); Mean Corpuscular Volume 90.8 fL (80.0-100.0); Monocytes # (auto) 0.2 10 ^3/uL (0-1.3); Monocytes % (auto) 4.9 % (0.0-12.0); Neutrophils # (auto) 3.1 10 ^3/uL (1.6-8.6); Platelet Count (auto) 122 10^3/uL (140-450); Red Blood Cells 3.77 10^6/uL (4.0-5.20); Red Cell Distribution Width 16.2 % (11.8-14.3); White Blood Cell 3.6 10^3/uL (4.4-10.8)
[2024-09-21 04:16] LABS: Alanine Aminotransferase 14 U/L (7-40); Anion Gap 3 (5-15); BUN/Creatinine Ratio 39.4 (10.0-20.0); Blood Urea Nitrogen 13 mg/dL (9-23); Chloride 104 mmol/L (98-107); Magnesium 1.7 mg/dL (1.6-2.6); Potassium 3.6 mmol/L (3.5-5.1); Sodium 140 mmol/L (136-145); Triglycerides 71 mg/dL (< 150)
[2024-09-21 04:17] LABS: Aspartate Aminotransferase 14 U/L (13-40); Bilirubin, Total 0.4 mg/dL (0.2-1.0); Phosphorus 3.1 mg/dL (2.4-5.1)
[2024-09-21 04:33] LABS: Alkaline Phosphatase 45 U/L (46-116); Carbon Dioxide 33 mmol/L (20-31); Glucose 135 mg/dL (74-106); Total Protein 4.4 g/dL (5.7-8.2)
--- NOTE | 2024-09-21 04:56 | DVH ---
CHEST RADIOGRAPH Indication: INTUBATED Technique: Single frontal view of the chest was obtained COMPARISON: XY CHEST PORTABLE on DOS: 09/20/24, XY CHEST PORTABLE on DOS: 09/19/24, XY CHEST PORTABLE on DOS: 09/18/24, XY CHEST PORTABLE on DOS: 09/17/24, XY CHEST XRAY 1 VIEW on DOS: 09/16/24, XY CHEST PORTABLE on DOS: 09/20/24 FINDINGS: Lines and Tubes: Endotracheal tube, enteric catheter and right central venous catheter in satisfactor y position. Lungs: Right lower lobe airspace disease. Pleura: No effusion. No pneumothorax. Cardiomediastinal contours: Unremarkable Bones: Unremarkable IMPRESSION: Lines and tubes in satisfactory position. No significant interval change.
--- NOTE | 2024-09-21 08:10 | ECG ---
[facility] Test Date: 2024-09-21 Test Time: 04:21:32 Pat Name: NATIVIDAD URBAN Department: Room: [address] [place] [address] A Gender: F Rn Cvicu: DAMON : 1970 Requested By: SVETLANA BROOKS Order Number: [id number] Reading MD: Dalia Solorio Measurements Intervals [place] Rate: 82 P: 80 [place]: 122 QRS: 85 QRSD: 76 T: 64 QT: 362 QTc: 422 Interpretive Statements Normal sinus rhythm Electronically Signed On 09-21-2024 8:58:52 PST by Dalia Solorio Please click the below link to view image of tracing.
[2024-09-21 09:18] LABS: Base Excess 3.1 mmol/L (-2.0-3.0)
[2024-09-21] MEDS: OLANZapine 5 MG TAB PO SCH (10:20)
[2024-09-21] MEDS: predniSONE 20 MG TAB PO ONE (12:14)
--- NOTE | 2024-09-21 12:48 | DVHPNRES ---
Progress Note Date Seen: Sep 21, 2024 Resident Creating Document: MYNOR BROOKS RESIDENT Has the PT tested + for MRSA If YES, has PT been informed?: No Medical Necessity Reason Pt with a Central, PICC or Fol: Yes The following are medically ne: Jones Catheter Reason for jones catheter: Strict I&O, Total Immobilization Subjective Review of Systems Extubated today, high-flow nasal cannula oxygen, overall hemodynamically stable Patient reports: No new complaints, Feels better Changes from previous H/P or p: No Changes Objective vital signs Vital Sign Date Time Temp Pulse Resp B/P (MAP) Pulse Ox O2 Delivery O2 Flow Rate FiO2 09/21/24 11:45 98.7 111 24 124/68 (86) 93 98.7 09/21/24 10:25 50.0 09/21/24 10:00 Mechanical Ventilator+ 30 30 Total Intake and Output 09/20/24 09/20/24 09/21/24 15:00 23:00 07:00 Intake Total 813.976 ml 1555.877 ml 1184.615 ml Output Total 2075 ml 2300 ml Balance 813.976 ml -519.123 ml -1115.385 ml medications Current Medications Medications Dose Ordered Sig/Elaine Route Start Time Stop Time Status Last Admin Dose Admin Albuterol 2.5 mg Q4HR NEB 09/14/24 02:00 09/21/24 10:08 2.5 MG Ipratropium [place] 0.5 mg Q4HR NEB 09/14/24 02:00 09/21/24 10:08 0.5 MG Pantoprazole Sodium 40 mg DAILY IV 09/14/24 10:00 09/21/24 09:34 40 MG Enoxaparin Sodium 40 mg DAILY SC 09/14/24 10:00 09/21/24 09:35 40 MG Midazolam HCl 50 ml @ 1 mls/hr Q24H IV 09/14/24 07:45 09/21/24 02:44 5 MLS/HR Fentanyl Citrate 250 ml @ 2.5 mls/hr Q24H IV 09/14/24 07:45 09/18/24 23:56 25 MLS/HR Norepinephrine Bitartrate 250 ml @ 3.75 mls/hr Q24H IV 09/14/24 10:00 09/14/24 10:20 3.75 MLS/HR Vancomycin HCl 0 ml @ 0 mls/hr UD IV 09/14/24 11:15 Dexmedetomidine HCl 400 mcg/ Dextrose 100 ml @ 2.725 mls/ hr Q24H IV 09/16/24 15:30 09/20/24 21:58 4.088 MLS/HR Amino Acids 0 ml @ 0 mls/hr PER PHARMACY IV 09/17/24 19:15 Diphenhydramine HCl 25 mg Q6HPRN PRN GT 09/17/24 20:15 09/17/24 20:48 25 MG Diagnostic Test (Pha) 1 strip Q6HR 09/18/24 00:00 09/21/24 11:52 1 STRIP Insulin Human Regular FOLLOW SLIDING SCALE Q6HR SC 09/18/24 00:00 09/20/24 11:22 2 UNITS Dextrose 50 ml UD IV 09/18/24 00:00 Amino Acids 1,000 ml @ 41 mls/hr DAILY@2200 IV 09/17/24 22:00 09/20/24 21:36 41 MLS/HR Lactated Ringer's 1,000 ml @ 100 mls/hr Q10H IV 09/20/24 10:30 09/21/24 04:41 100 MLS/HR Lorazepam 1 mg Q4HP PRN IV 09/20/24 13:30 09/20/24 21:37 1 MG Olanzapine 20 mg DAILY PO 09/21/24 10:00 09/21/24 10:20 20 MG Vancomycin HCl 250 ml @ 250 mls/hr Q12H IV 09/20/24 21:00 09/21/24 09:34 250 MLS/HR Acetaminophen 650 mg Q6HPRN PRN GT 09/20/24 23:15 09/21/24 05:49 650 MG Prednisone 40 mg DAILY PO 09/22/24 10:00 Examination GENERAL:Normal (Awake RASS+1, Off of vent), HEENT:Normal (Central venous catheter intact,), NECK:Normal, LUNGS:Normal (Bilateral clear, on high-flow nasal cannula oxygen), CVS:Normal (Unchanged sinus rhythm), ABDOMEN:Normal (BS positive, no distention or rigidity.), MSK:Normal (Can not assess strength, unchanged muscle mass, grossly no pitting edema/injury noted.), SKIN:Normal, NEURO:Normal ( mild anxiety, awake), :Normal (foleys) laboratory and microbiology Laboratory Tests 09/21/24 03:02 Test 09/21/24 03:02 Range/Units Serum Glucose 135 H 74-106 mg/dL Microbiology Date/Time Source Procedure Growth Status 09/15/24 21:15 Nose MRSA Screen - Final Methicillin Resistant S.aureus Complete 09/15/24 02:00 Sputum Expectorated Sputum Gram Stain - Final Complete 09/15/24 02:00 Respiratory Culture - Final Methicillin Resistant S.aureus Complete 09/13/24 21:11 Blood Blood Culture - Final NO GROWTH AFTER 5 DAYS OF INCUBATION. Complete Labs and/or images reviewed: Labs reviewed by me, Image(s) reviewed by me Problem List/Assessment/Plan Problem List/Assessment/Plan ICU Course: Ms. White, 54-year-old female with a history of COPD on home oxygen (2-4 L), schizophrenia, and hypertension was brought to the ED with shortness of breath and cough for one day. She was found cyanotic and struggling to breathe at her alf, with SpO2 in the mid/low 80s. En route, she received a DuoNeb treatment and 8 L of oxygen via nasal cannula. She denies fever, flu-like symptoms, chest pain, dizziness, diaphoresis, abdominal pain, nausea, vomiting, or changes in bowel and bladder movements. At presentation patient was found to have a hypoxic and hypercapnic respiratory failure on BiPAP it worsened with more of CO2 retention with worsening respiratory acidosis needing intubation at ED. patient was also found to have possible infection with aspiration pneumonia and presented in sepsis. Septic shock was treated with IV fluid and Levophed. Patient improved significantly overnight. Hospitalization day: 8 A. Neurolgy: # Sedated on Fentanyl 150 mcg/hr and Versed 5 mg/hr>> Precedex, as needed Ativan>> off of sedation # schizophrenia: When patient has access to oral medication we will consider. Patient takes Haldol at home, will add as it might help with agitation. QTC not concerning. Patient is started on olanzapine 10, increased olanzapine 20 check for EKG for QTC unremarkable # insomnia: Trazodone 75 mg at night, started # anxiety disorder: as needed Ativan, continue. B. Cardiology: # NSTEMI type 2 secondary to above: Troponin trends are 58>136, likely demand mediated no EKG changes. telemetry unremarkable, few PVCs. Keep magnesium over 2, potassium over 4 keep the patient on telemetry # Probable anteroseptal infarct, old # Nonspecific T abnormalities inferior leads, troponin -ve # Left posterior fascicular block: Continue close monitoring we will try to avoid fatemeh blockers, no concerning findings noted on tele. C. Respiratory: # Acute exacerbation of chronic COPD: Patient is on BiPAP with saturation 98%>> increasing CO2, can not protect airways>> needing intubation>> off of intubation on high-flow nasal cannula oxygen keep SpO2 between 88-92 Patient will benefit from pulmonary rehabilitation in the terminal superintendent. minimal vent settings. # Acute on chronic respiratory failure: secondary to acute exacerbation of chronic COPD, Echo on 03/09 revealed ejection fraction 50% with grade 1 diastolic dysfunction and RVSP 34 mm Hg. Successful weaning. # vent care: Pulmonology consulted, we will follow. CPAP trial, when appropriate, sedation holiday. Minimal vent setting. # Patient failed CPAP previously now post extubation. Keep the patient NPO, swallow eval and further post extubation management as per ICU standard. Patient needs PT post extubation. # Possible community-acquired Gram-positive versus Gram-negative pneumonia: IV ceftriaxone 1 g daily and IV azithromycin 500 mg >> change to cefepime plus vancomycin, daily negative for viral panel, RSV panel pending. Discontinued cefepime and azithromycin Continue vancomycin as MRSA +ve. # Oropharyngeal swelling: Improved with IV Benadryl 25 mg D. Gastrointenstinal: # on PPI E. Geniotourinary: # on foleys passing urine F. Infectious Disease: # sepsis secondary to above: IV vancomycin only as patient is Staphylococcus positive in sputum culture # Nares +ve for MRSA: 5 days of mupirocin bid to continue. G. Hematology & Oncology: # Leukopenia: WBC mildly low likely sepsis / septic shock related. predominant neutrophilia and lymphopenia. # mild thrombocytopenia, recovering: This morning platelets 134, mildly dropped, continues to drop to 100, follow CBC tomorrow if patient continues to have platelet drop we will hold antiplatelets and anticoagulation. H. Nephrology: #close intake output. # likely contraction alkalosis: Patient's past heavy amount of urine despite the fact patient is not on diuretics. Likely due to auto diuresis in the recovery phase of acute disease. Fluid challenge/LR to continue. I. Endocrine: # Target BG 140-180 in hospital as per NICE-Sugar trial. J. MSK: #moderate muscle mass, high risk of ICU myopathy #climnimax started # physical therapy K. Prophylaxis: PPI: Protonix DVT: Lovenox L. Lines & Drains (with insertion date): IV Central : Y Arterial line: Y M. Drips: versed, phentanyl. N. Disposition: Remains in ICU, can downgrade to Telemetry if remains stable, later today or tomorrow. The plan was discussed with Dr. Connolly. The patient care consists of total 81 minutes of critical care time excluding the procedures. Chronic alf resident at [facility]: disposition yet to determine. PT and SW help needed. Dictated by Mynor Brooks MD with 3M MModal Fluency. Plan discussed with: Patient, Other (primary team, RN) My Orders My Orders Orders - MYNOR BROOKS Procedure Category Date Status Time Lorazepam 2mg/Ml Inj PHA 09/20/24 In Process (Ativan Inj) 13:30 Clinimix Per Pharmacy [facility] 09/20/24 In Process 22:00 Olanzapine Tablet PHA 09/21/24 In Process (Zyprexa Tablet) 10:00 Electrocardigram EKG 09/20/24 Resulted 15:15 Vancomycin 1gm/250ml PHA 09/20/24 In Process Kit 21:00 Vancomycin Per [facility] 09/21/24 In Process Pharmacy Protoc 21:00 Vancomycin,Trough LAB 09/21/24 Logged 20:00 Incentive Spirometry ORDERS 09/21/24 Transmitted Q 1hr 10:19 Oral Care ORDERS 09/21/24 Transmitted 10:19 * Swallow Request ST 09/21/24 Transmitted 10:19 Npo (Nothing By DIET 09/21/24 Transmitted Mouth) Diet Lunch Prednisone Tablet PHA 09/22/24 In Process 10:00 Date of Service: Sep 21, 2024 Billing Provider: CHRISTAL ABRAHAM MD Common Visit Codes: 18026-[id number] CARE-EACH +30MIN MYNOR BROOKS Sep 21, 2024 12:48 CHRISTAL ABRAHAM MD Sep 23, 2024 09:27
[2024-09-21 13:01] LABS: Base Excess 3.8 mmol/L (-2.0-3.0)
--- NOTE | 2024-09-21 22:43 | DVHPN2 ---
Progress Note - Dictate Date Seen: Sep 21, 2024 Has the PT tested + for MRSA If YES, has PT been informed?: No Medical Necessity Reason Pt with a Central, PICC or Fol: Yes The following are medically ne: Jones Catheter Reason for jones catheter: Strict I&O, Total Immobilization Subjective Patient seen and examined at bedside. S/p extubation, on supplemental oxygen Overnight events reviewed. vital signs Vital Sign Date Time Temp Pulse Resp B/P (MAP) Pulse Ox O2 Delivery O2 Flow Rate FiO2 09/21/24 22:20 98.7 09/21/24 22:16 111 24 94 09/21/24 22:14 40.0 35 09/21/24 22:00 Hi-Flow Heated NC+ 09/21/24 22:00 138/87 (104) Total Intake and Output 09/20/24 09/20/24 09/21/24 15:00 23:00 07:00 Intake Total 813.976 ml 1555.877 ml 1184.615 ml Output Total 2075 ml 2300 ml Balance 813.976 ml -519.123 ml -1115.385 ml medications Current Medications Medications Dose Ordered Sig/Elaine Route Start Time Stop Time Status Last Admin Dose Admin Albuterol 2.5 mg Q4HR NEB 09/14/24 02:00 09/21/24 22:13 2.5 MG Ipratropium [place] 0.5 mg Q4HR NEB 09/14/24 02:00 09/21/24 22:13 0.5 MG Pantoprazole Sodium 40 mg DAILY IV 09/14/24 10:00 09/21/24 09:34 40 MG Enoxaparin Sodium 40 mg DAILY SC 09/14/24 10:00 09/21/24 09:35 40 MG Midazolam HCl 50 ml @ 1 mls/hr Q24H IV 09/14/24 07:45 09/21/24 02:44 5 MLS/HR Fentanyl Citrate 250 ml @ 2.5 mls/hr Q24H IV 09/14/24 07:45 09/18/24 23:56 25 MLS/HR Norepinephrine Bitartrate 250 ml @ 3.75 mls/hr Q24H IV 09/14/24 10:00 09/14/24 10:20 3.75 MLS/HR Vancomycin HCl 0 ml @ 0 mls/hr UD IV 09/14/24 11:15 Dexmedetomidine HCl 400 mcg/ Dextrose 100 ml @ 2.725 mls/ hr Q24H IV 09/16/24 15:30 09/20/24 21:58 4.088 MLS/HR Amino Acids 0 ml @ 0 mls/hr PER PHARMACY IV 09/17/24 19:15 Diphenhydramine HCl 25 mg Q6HPRN PRN GT 09/17/24 20:15 09/17/24 20:48 25 MG Diagnostic Test (Pha) 1 strip Q6HR 09/18/24 00:00 09/21/24 18:00 1 STRIP Insulin Human Regular FOLLOW SLIDING SCALE Q6HR SC 09/18/24 00:00 09/21/24 18:00 2 UNITS Dextrose 50 ml UD IV 09/18/24 00:00 Amino Acids 1,000 ml @ 41 mls/hr DAILY@2200 IV 09/17/24 22:00 09/21/24 21:19 41 MLS/HR Lactated Ringer's 1,000 ml @ 100 mls/hr Q10H IV 09/20/24 10:30 09/21/24 16:30 100 MLS/HR Lorazepam 1 mg Q4HP PRN IV 09/20/24 13:30 09/21/24 21:20 1 MG Olanzapine 20 mg DAILY PO 09/21/24 10:00 09/21/24 10:20 20 MG Vancomycin HCl 250 ml @ 250 mls/hr Q12H IV 09/20/24 21:00 09/21/24 21:19 250 MLS/HR Acetaminophen 650 mg Q6HPRN PRN GT 09/20/24 23:15 09/21/24 21:20 650 MG Prednisone 40 mg DAILY PO 09/22/24 10:00 objective Gen.: Patient lying in bed in no apparent distress. On supplemental oxygen. Head: Normocephalic, atraumatic. Eyes: EOMI/PERRLA. Ears: Normal hearing. Normal anatomy. Neck/trachea: Trachea midline, supple. Nose: Normal external anatomy. Mouth: Moist mucous membranes. Chest: Decreased air entry bilaterally. No wheezing or rhonchi. Cardiovascular: Positive S1, positive S2. Regular rate and rhythm. Abdomen: Positive bowel sounds in all 4 quadrants. Soft, non-tender, non- distended. : Deferred. Rectal: Deferred. Skin: Warm, dry. Intact. Extremities: 2+ radial pulses bilaterally. No lower extremity edema. Neuro: Awake, alert, oriented x3. No gross motor or sensory deficits. Cranial nerves II through XII intact. Gait not assessed. laboratory and microbiology Laboratory Tests 09/21/24 03:02 Test 09/21/24 03:02 Range/Units Serum Glucose 135 H 74-106 mg/dL Assessment/Plan Impression: Acute hypoxic respiratory failure On mechanical ventilator AE COPD Pneumonia Lung scarring Events: Patient tolerated CPAP, is s/p extubation today Currently on high-flow O2 at flow rate 40 LPM, 30% FiO2. IV fluids with LR Off sedation Clinimix for nutritional support. Continue abx - vancomycin Labs and imaging reviewed Rest of plan as outlined below. Plan: S/p extubation On high-flow O2 at flow rate 40 LPM, 30% FiO2. Taper O2 as tolerated Off sedation Continue bronchodilators. Continue antibiotics. F/u cultures. Pressors if necessary for hemodynamic support Titrate to keep mean arterial pressure greater than 65 mmHg. Monitor renal function Monitor electrolytes. Supplement as necessary. Monitor ins and outs. Maintain euvolemia. GI prophylaxis. DVT prophylaxis. Prognosis: Poor given patient's multiple co-morbidities. Condition: Critical Rest of plan per hospitalist and other consultants. A total of 35 minutes of critical care time was spent reviewing the patient record, examining the patient, making a diagnostic and therapeutic plan, discussing this plan with the medical personnel, following up on diagnostic studies and following the patient for clinical stability excluding any and all procedures. At least 50% of this time was spent in direct, [id number] contact. Thank you, Dr. Segundo, for allowing me to participate in this patient's care. Further recommendations will depend on the patient's clinical course. Please do not hesitate to contact me if you have any questions or concerns. This medical document was created using an electronic medical record system with [employer] system. Although these documentations are being carefully reviewed, there may still be some phonetic and typographical changes. The errors are purely typographical, due to imperfection on the software program, and do not reflect any compromise in the patient's medical care. Plan discussed with: Other (SIL Chaney) Critical Care Time(min): 35 BRITANY MEDRANO MD Sep 21, 2024 22:43
[2024-09-22] VITALS (35 sets, daily range): BP systolic 130–164; BP diastolic 66–97; PULSE 78–111; RESP 19–39; TEMP 97.5–99.1; O2SAT 87–100
[2024-09-22 04:26] LABS: Basophils # (auto) 0 10 ^3/uL (0-0.2); Eosinophils # (auto) 0 10 ^3/uL (0-0.8); Eosinophils % (auto) 0.1 % (0.0-7.0); Hematocrit 36.9 % (36.0-46.0); Hemoglobin 12.2 g/dL (12.2-16.2); Lymphocytes # (auto) 0.5 10 ^3/uL (0.4-5.4); Lymphocytes % (auto) 7.6 % (10.0-50.0); Mean Corpuscular Hemoglobin 30.5 pg (28.0-32.0); Mean Corpuscular Volume 92.4 fL (80.0-100.0); Monocytes # (auto) 0.8 10 ^3/uL (0-1.3); Monocytes % (auto) 11.3 % (0.0-12.0); Neutrophils # (auto) 5.5 10 ^3/uL (1.6-8.6); Nucleated Red Blood Cells % 0.1 %; Platelet Count (auto) 155 10^3/uL (140-450); Red Blood Cells 3.99 10^6/uL (4.0-5.20); Red Cell Distribution Width 16.4 % (11.8-14.3); White Blood Cell 6.8 10^3/uL (4.4-10.8)
[2024-09-22 04:42] LABS: Alanine Aminotransferase 23 U/L (7-40); Alkaline Phosphatase 51 U/L (46-116); Anion Gap 2 (5-15); Blood Urea Nitrogen 10 mg/dL (9-23); Calcium 9.2 mg/dL (8.7-10.4); Magnesium 1.9 mg/dL (1.6-2.6)
[2024-09-22 04:43] LABS: Albumin 3.3 g/dL (3.2-4.8); Bilirubin, Total 0.3 mg/dL (0.2-1.0); Phosphorus 3.7 mg/dL (2.4-5.1)
[2024-09-22 04:49] LABS: Aspartate Aminotransferase 13 U/L (13-40); Carbon Dioxide 37 mmol/L (20-31); Chloride 110 mmol/L (98-107); Glucose 107 mg/dL (74-106); Potassium 3.5 mmol/L (3.5-5.1); Sodium 149 mmol/L (136-145); Total Protein 4.7 g/dL (5.7-8.2)
[2024-09-22] MEDS: predniSONE 20 MG TAB PO SCH (10:00)
[2024-09-22] MEDS: LACTATED RINGER'S 1,000 ML IV SCH (11:30)
--- NOTE | 2024-09-22 11:47 | DVHPNRES ---
Progress Note Date Seen: Sep 22, 2024 Resident Creating Document: MYNOR BROOKS RESIDENT Has the PT tested + for MRSA If YES, has PT been informed?: No Medical Necessity Reason Pt with a Central, PICC or Fol: Yes The following are medically ne: Jones Catheter Reason for jones catheter: Strict I&O, Total Immobilization Subjective Patient reports: No new complaints, Feels better Changes from previous H/P or p: No Changes Objective vital signs Vital Sign Date Time Temp Pulse Resp B/P (MAP) Pulse Ox O2 Delivery O2 Flow Rate FiO2 09/22/24 10:43 98 24 100 09/22/24 10:37 Nasal Cannula* 4 36 09/22/24 08:00 97.5 162/79 (106) 97.5 Total Intake and Output 09/21/24 09/21/24 09/22/24 15:00 23:00 07:00 Intake Total 1382.088 ml 1378 ml 1608 ml Output Total 3800 ml 3100 ml Balance 1382.088 ml -2422 ml -1492 ml medications Current Medications Medications Dose Ordered Sig/Elaine Route Start Time Stop Time Status Last Admin Dose Admin Albuterol 2.5 mg Q4HR NEB 09/14/24 02:00 09/22/24 10:36 2.5 MG Ipratropium [place] 0.5 mg Q4HR NEB 09/14/24 02:00 09/22/24 10:37 0.5 MG Pantoprazole Sodium 40 mg DAILY IV 09/14/24 10:00 09/22/24 10:00 40 MG Enoxaparin Sodium 40 mg DAILY SC 09/14/24 10:00 09/22/24 10:00 40 MG Vancomycin HCl 0 ml @ 0 mls/hr UD IV 09/14/24 11:15 Amino Acids 0 ml @ 0 mls/hr PER PHARMACY IV 09/17/24 19:15 Diphenhydramine HCl 25 mg Q6HPRN PRN GT 09/17/24 20:15 09/17/24 20:48 25 MG Diagnostic Test (Pha) 1 strip Q6HR 09/18/24 00:00 09/22/24 06:07 1 STRIP Insulin Human Regular FOLLOW SLIDING SCALE Q6HR SC 09/18/24 00:00 09/21/24 18:00 2 UNITS Dextrose 50 ml UD IV 09/18/24 00:00 Amino Acids 1,000 ml @ 41 mls/hr DAILY@2200 IV 09/17/24 22:00 09/21/24 21:19 41 MLS/HR Lorazepam 1 mg Q4HP PRN IV 09/20/24 13:30 09/21/24 21:20 1 MG Olanzapine 20 mg DAILY PO 09/21/24 10:00 09/22/24 11:17 20 MG Acetaminophen 650 mg Q6HPRN PRN GT 09/20/24 23:15 09/22/24 06:41 650 MG Prednisone 40 mg DAILY PO 09/22/24 10:00 09/22/24 10:00 40 MG Vancomycin HCl 250 ml @ 250 mls/hr Q10H IV 09/22/24 18:00 Lactated Ringer's 1,000 ml @ 150 mls/hr Q6H40M IV 09/22/24 11:30 UNV Examination GENERAL:Normal (Awake RASS+1, Off of vent), HEENT:Normal (Central venous catheter intact,), NECK:Normal, LUNGS:Normal (Bilateral clear, on 6 L high-flow nasal cannula oxygen), CVS:Normal (Unchanged sinus rhythm), ABDOMEN:Normal (BS positive, no distention or rigidity.), MSK:Normal (Can not assess strength, unchanged muscle mass, grossly no pitting edema/injury noted.), SKIN:Normal, NEURO:Normal ( mild anxiety, awake), :Normal (foleys) laboratory and microbiology Laboratory Tests 09/22/24 03:35 Test 09/22/24 03:35 Range/Units Serum Glucose 107 H 74-106 mg/dL Microbiology Date/Time Source Procedure Growth Status 09/15/24 21:15 Nose MRSA Screen - Final Methicillin Resistant S.aureus Complete 09/15/24 02:00 Sputum Expectorated Sputum Gram Stain - Final Complete 09/15/24 02:00 Respiratory Culture - Final Methicillin Resistant S.aureus Complete 09/13/24 21:11 Blood Blood Culture - Final NO GROWTH AFTER 5 DAYS OF INCUBATION. Complete Labs and/or images reviewed: Labs reviewed by me, Image(s) reviewed by me Problem List/Assessment/Plan Problem List/Assessment/Plan ICU Course: Ms. White, 54-year-old female with a history of COPD on home oxygen (2-4 L), schizophrenia, and hypertension was brought to the ED with shortness of breath and cough for one day. She was found cyanotic and struggling to breathe at her skilled nursing, with SpO2 in the mid/low 80s. En route, she received a DuoNeb treatment and 8 L of oxygen via nasal cannula. She denies fever, flu-like symptoms, chest pain, dizziness, diaphoresis, abdominal pain, nausea, vomiting, or changes in bowel and bladder movements. At presentation patient was found to have a hypoxic and hypercapnic respiratory failure on BiPAP it worsened with more of CO2 retention with worsening respiratory acidosis needing intubation at ED. patient was also found to have possible infection with aspiration pneumonia and presented in sepsis. Septic shock was treated with IV fluid and Levophed. Patient improved significantly overnight. Patient remains hemodynamically stable. Hospitalization day: 9 A. Neurolgy: # Sedated on Fentanyl 150 mcg/hr and Versed 5 mg/hr>> Precedex, as needed Ativan>> off of sedation # schizophrenia: When patient has access to oral medication we will consider. Patient takes Haldol at home, will add as it might help with agitation. QTC not concerning. Patient is started on olanzapine 10, increased olanzapine 20 check for EKG for QTC unremarkable # insomnia: Trazodone 75 mg at night, started # anxiety disorder: as needed Ativan, continue. B. Cardiology: # NSTEMI type 2 secondary to above: Troponin trends are 58>136, likely demand mediated no EKG changes. telemetry unremarkable, few PVCs. Keep magnesium over 2, potassium over 4 keep the patient on telemetry # Probable anteroseptal infarct, old # Nonspecific T abnormalities inferior leads, troponin -ve # Left posterior fascicular block: Continue close monitoring we will try to avoid fatemeh blockers, no concerning findings noted on tele. C. Respiratory: # Acute exacerbation of chronic COPD: Patient is on BiPAP with saturation 98%>> increasing CO2, can not protect airways>> needing intubation>> off of intubation on high-flow nasal cannula oxygen keep SpO2 between 88-92 Patient will benefit from pulmonary rehabilitation in the [facility]. minimal vent settings. # Acute on chronic respiratory failure: secondary to acute exacerbation of chronic COPD, Echo on 03/09 revealed ejection fraction 50% with grade 1 diastolic dysfunction and RVSP 34 mm Hg. Successful weaning. # vent care: Pulmonology consulted, we will follow. CPAP trial, when appropriate, sedation holiday. Minimal vent setting. # Patient failed CPAP previously now post extubation. Keep the patient NPO, swallow eval and further post extubation management as per ICU standard. Patient needs PT post extubation. # Possible community-acquired Gram-positive versus Gram-negative pneumonia: IV ceftriaxone 1 g daily and IV azithromycin 500 mg >> change to cefepime plus vancomycin, daily negative for viral panel, RSV panel pending. Discontinued cefepime and azithromycin Continue vancomycin as MRSA +ve. # Oropharyngeal swelling: Improved with IV Benadryl 25 mg D. Gastrointestinal: # on PPI E. Genitourinary: # on foleys passing urine F. Infectious Disease: # sepsis secondary to above: IV vancomycin only as patient is Staphylococcus positive in sputum culture # Nares +ve for MRSA: 5 days of mupirocin bid to continue. G. Hematology & Oncology: # Leukopenia: WBC mildly low likely sepsis / septic shock related. predominant neutrophilia and lymphopenia. # mild thrombocytopenia, recovering: This morning platelets 134, mildly dropped, continues to drop to 100, follow CBC tomorrow if patient continues to have platelet drop we will hold antiplatelets and anticoagulation. H. Nephrology: # close intake output. # likely contraction alkalosis: Patient's past heavy amount of urine despite the fact patient is not on diuretics. Likely due to auto diuresis in the recovery phase of acute disease. Fluid challenge/LR to continue. # patient is having antidiuresis: Urine output almost 7 L overnight. workup in progress. ? ADH deficiency. # Hypernatremia, hypovolumic: likely due to intravascular volume depletion due to above, on IV fluids to compensate. workup in progress, BMP repeat at 5 pm this afternoon. Free water deficit 800 ml. serum osmolality, urine osmolality, urine sodium, urea, creatinine to check immediately. AVOID overcoorection more than 8-10 MEq in 24 hours to avoid cerebral edema. Started the patient on D5W 150 cc/ hour. I. Endocrine: # Target BG 140-180 in hospital as per NICE-Sugar trial. J. MSK: #moderate muscle mass, high risk of ICU myopathy #climnimax started # physical therapy K. Prophylaxis: PPI: Protonix DVT: Lovenox L. Lines & Drains (with insertion date): IV Central : Y Arterial line: Y M. Drips: versed, phentanyl. N. Disposition: Downgrade to Telemetry floor. The plan was discussed with Dr. Connolly. The patient care consists of total 81 minutes of critical care time excluding the procedures. Chronic skilled nursing resident at [facility]: disposition yet to determine. PT and SW help needed. Dictated by Mynor Brooks MD with 3M MModal Fluency. Plan discussed with: Patient, Other My Orders My Orders Orders - MYNOR BROOKS Procedure Category Date Status Time Pt Request For Service PT 09/21/24 Logged 12:48 Pureed DIET 09/21/24 Transmitted Dinner Vancomycin 1gm/250ml PHA 09/22/24 In Process Kit 18:00 Vancomycin Per [facility]IN[facility] 09/22/24 In Process Pharmacy Protoc 18:00 Basic Metabolic Panel LAB 09/23/24 Verified 04:00 Vancomycin,Trough LAB 09/23/24 Verified 13:00 Osmolality, Serum LAB 09/22/24 Logged 11:19 Transfer Orders XFER 09/22/24 Transmitted 11:19 Lactated Ringer's PHA 09/22/24 Logged 11:30 Urine Sodium LAB 09/22/24 Logged 11:23 Urine Creatinine LAB 09/22/24 Logged 11:23 Urine Potassium LAB 09/22/24 Logged 11:23 Urine LAB 09/22/24 Logged Protein/Creatinine Assess Urine Specific AMINATA 09/22/24 In Process [place] 11:23 Osmolality Urine LAB 09/22/24 Logged 11:23 Urea Nitrogen (Body LAB 09/22/24 Logged Fluid) 11:23 Comprehensive LAB 09/23/24 Verified Metabolic Panel 04:00 Magnesium LAB 09/23/24 Verified 04:00 Phosphorus LAB 09/23/24 Verified 04:00 Clinimix Per Pharmacy [facility] 09/22/24 In Process 22:00 Basic Metabolic Panel LAB 09/22/24 Logged 17:00 Date of Service: Sep 22, 2024 Billing Provider: CHRISTAL ABRAHAM MD Common Visit Codes: 95325-[id number] CARE-EACH +30MIN MYNOR BROOKS Sep 22, 2024 11:47 CHRISTAL ABRAHAM MD Sep 23, 2024 09:31
[2024-09-22 13:58] LABS: Base Excess 6.1 mmol/L (-2.0-3.0)
--- NOTE | 2024-09-22 13:59 | CONS ---
Pharmacy Clinical Information: Patient's Na, Cl and Ca are rising on LR, consider switching IVF to either 1/2NS or D5-1/2NS, either of which contain less NaCl (0.45% vs 0.6%) than LR plus no calcium AMANDA SANDRA PHARMACIST Sep 22, 2024 13:59
[2024-09-22] MEDS: D5W 5% 1,000 ML IV SCH (16:00)
--- NOTE | 2024-09-22 16:30 | DVHSR ---
APPROVED REPORT EXAM: Two-dimensional and M-mode echocardiogram with Doppler and color Doppler. INDICATION R/O structural heart disease DIMENSIONS LVDd3.9 (3.8-5.7cm)LA (2D)2.9 (1.9-4.0cm)Aortic Root3.0 (2.0-3.7cm) LVDs2.4 (2.5-4.0cm)LA (MM) (1.9-4.0cm)Aortic Cusp Exc1.7 (1.5-2.0cm) EF (%) 69.0 (55-70%)Rt. Atrium3.6 (1.9-4.0cm)Asc. Aorta cm IVSd0.8 (0.7-1.1cm)RV (D) (1.8-2.4cm) PWd0.9 (0.7-1.1cm) Mitral Valve MitralMitral Stenosis E wave0.62m/sMV Mean GR.mmHg A wave0.83m/sMV Peak GR.mmHg E/A ratio0.72D MVAcm2 DECEL [id number] 1/2 Timems Aortic Valve Aortic ValveAortic Stenosis V11.02m/Roxanne Mean GR.3mmHg V21.23m/Roxanne Peak GR.6mmHg LVOT Diameter2.1 (1.8-2.4cm)Doppler AVA2.87cm2 Other Information Quality : Technically LimitedRhythm : Technically limited study due to body habitus and patient position. Conclusion lvef 70% by visual estimate noraml RV function normal atria pericardial fat pad
[2024-09-22 16:46] LABS: Protein, Urine 9.6 mg/dL (1-14)
[2024-09-22 16:49] LABS: Creatinine, Urine 7.73 mg/dL (30.0-125.0); Urine Protein/Creatinine Ratio 1.24
[2024-09-22 16:56] LABS: Base Excess 9.9 mmol/L (-2.0-3.0)
[2024-09-22] MEDS: VANCOMYCIN 1GM/250ML KIT 250 ML IV SCH (17:06)
--- NOTE | 2024-09-22 17:59 | DVH ---
CHEST RADIOGRAPH Indication: SOB Technique: Single frontal view of the chest was obtained Comparison: XY CHEST PORTABLE on DOS: 09/21/24, XY CHEST PORTABLE on DOS: 09/20/24, XY CHEST PORTABLE on DOS: 09/19/24 FINDINGS: Lines and Tubes: Endotracheal tube has been removed. Enteric tube below the left diaphragm in the sto mach. Right internal jugular catheter in place unchanged. Lungs: Unimproved airspace disease right lower lung field Pleura: No effusion. No pneumothorax. Cardiomediastinal contours: Unremarkable Bones: No acute osseous abnormality. IMPRESSION: 1. Endotracheal tube has been removed. 2. Enteric tube and right internal jugular line in place unchanged 3. Unimproved airspace disease right lower lung field.
[2024-09-22 18:37] LABS: Chloride 105 mmol/L (98-107); Potassium 3.6 mmol/L (3.5-5.1)
[2024-09-22 18:38] LABS: Anion Gap 2 (5-15); Calcium 9.2 mg/dL (8.7-10.4)
[2024-09-22 18:43] LABS: BUN/Creatinine Ratio 25.6 (10.0-20.0); Blood Urea Nitrogen 10 mg/dL (9-23)
[2024-09-22 18:53] LABS: Sodium 147 mmol/L (136-145)
[2024-09-22 18:54] LABS: Glucose 150 mg/dL (74-106)
[2024-09-22 18:55] LABS: Carbon Dioxide 40 mmol/L (20-31)
--- NOTE | 2024-09-22 21:46 | DVHPN2 ---
Progress Note - Dictate Date Seen: Sep 22, 2024 Has the PT tested + for MRSA If YES, has PT been informed?: No Medical Necessity Reason Pt with a Central, PICC or Fol: Yes The following are medically ne: Jones Catheter Reason for jones catheter: Strict I&O, Total Immobilization Subjective Patient seen and examined at bedside. Remains on supplemental oxygen Overnight events reviewed. vital signs Vital Sign Date Time Temp Pulse Resp B/P (MAP) Pulse Ox O2 Delivery O2 Flow Rate FiO2 09/22/24 21:00 94 34 139/76 (97) 99 09/22/24 20:00 Nasal Cannula* 2 28 09/22/24 20:00 98.4 98.4 Total Intake and Output 09/21/24 09/21/24 09/22/24 15:00 23:00 07:00 Intake Total 1382.088 ml 1378 ml 1608 ml Output Total 3800 ml 3100 ml Balance 1382.088 ml -2422 ml -1492 ml medications Current Medications Medications Dose Ordered Sig/Elaine Route Start Time Stop Time Status Last Admin Dose Admin Albuterol 2.5 mg Q4HR NEB 09/14/24 02:00 09/22/24 19:09 2.5 MG Ipratropium [place] 0.5 mg Q4HR NEB 09/14/24 02:00 09/22/24 19:07 0.5 MG Pantoprazole Sodium 40 mg DAILY IV 09/14/24 10:00 09/22/24 10:00 40 MG Enoxaparin Sodium 40 mg DAILY SC 09/14/24 10:00 09/22/24 10:00 40 MG Vancomycin HCl 0 ml @ 0 mls/hr UD IV 09/14/24 11:15 Diagnostic Test (Pha) 1 strip Q6HR 09/18/24 00:00 09/22/24 17:09 1 STRIP Insulin Human Regular FOLLOW SLIDING SCALE Q6HR SC 09/18/24 00:00 09/21/24 18:00 2 UNITS Dextrose 50 ml UD IV 09/18/24 00:00 Amino Acids 1,000 ml @ 41 mls/hr DAILY@2200 IV 09/17/24 22:00 09/21/24 21:19 41 MLS/HR Lorazepam 1 mg Q4HP PRN IV 09/20/24 13:30 09/21/24 21:20 1 MG Olanzapine 20 mg DAILY PO 09/21/24 10:00 09/22/24 11:17 20 MG Acetaminophen 650 mg Q6HPRN PRN GT 09/20/24 23:15 09/22/24 06:41 650 MG Prednisone 40 mg DAILY PO 09/22/24 10:00 09/22/24 10:00 40 MG Vancomycin HCl 250 ml @ 250 mls/hr Q10H IV 09/22/24 18:00 09/22/24 18:00 250 MLS/HR Dextrose 1,000 ml @ 150 mls/hr Q6H40M IV 09/22/24 16:00 09/22/24 16:00 150 MLS/HR objective Gen.: Patient lying in bed in no apparent distress. On supplemental oxygen. Head: Normocephalic, atraumatic. Eyes: EOMI/PERRLA. Ears: Normal hearing. Normal anatomy. Neck/trachea: Trachea midline, supple. Nose: Normal external anatomy. Mouth: Moist mucous membranes. Chest: Decreased air entry bilaterally. No wheezing or rhonchi. Cardiovascular: Positive S1, positive S2. Regular rate and rhythm. Abdomen: Positive bowel sounds in all 4 quadrants. Soft, non-tender, non- distended. : Deferred. Rectal: Deferred. Skin: Warm, dry. Intact. Extremities: 2+ radial pulses bilaterally. No lower extremity edema. Neuro: Awake, alert, oriented x3. No gross motor or sensory deficits. Cranial nerves II through XII intact. Gait not assessed. laboratory and microbiology Laboratory Tests 09/22/24 17:59 09/22/24 03:35 Test 09/22/24 17:59 Range/Units Serum Glucose 150 H 74-106 mg/dL Assessment/Plan Impression: Acute hypoxic respiratory failure Acute hypercarbic respiratory failure AE COPD Pneumonia Lung scarring Events: Patient retained CO2 Placed on BiPAP. ABG, improved ventilation On high-flow O2 at flow rate 40 LPM, 30% FiO2. Taper as tolerated - goal is transition to low flow O2 BiPAP at night IV fluids with LR Clinimix for nutritional support. Continue abx - vancomycin Continue bronchodilators Steroids HOB elevation Aspiration precautions Labs and imaging reviewed Rest of plan as outlined below. Plan: S/p extubation on 09/21/24 On high-flow O2 at flow rate 40 LPM, 30% FiO2. Titrate to keep sats between 88-94% BiPAP at night Off sedation Continue bronchodilators. Continue antibiotics. F/u cultures. Pressors if necessary for hemodynamic support Titrate to keep mean arterial pressure greater than 65 mmHg. Monitor renal function Monitor electrolytes. Supplement as necessary. Monitor ins and outs. Maintain euvolemia. GI prophylaxis. DVT prophylaxis. Prognosis: Poor given patient's multiple co-morbidities. Condition: Critical Rest of plan per hospitalist and other consultants. A total of 35 minutes of critical care time was spent reviewing the patient record, examining the patient, making a diagnostic and therapeutic plan, discussing this plan with the medical personnel, following up on diagnostic studies and following the patient for clinical stability excluding any and all procedures. At least 50% of this time was spent in direct, [id number] contact. Thank you, Dr. Segundo, for allowing me to participate in this patient's care. Further recommendations will depend on the patient's clinical course. Please do not hesitate to contact me if you have any questions or concerns. This medical document was created using an electronic medical record system with [employer] dictation system. Although these documentations are being carefully reviewed, there may still be some phonetic and typographical changes. The errors are purely typographical, due to imperfection on the software program, and do not reflect any compromise in the patient's medical care. Dietary Evaluation Review Comments: 1) Continue to monitor pt PO intake to meet at least 75% of meals 2) Continue current plan of care Expected Outcomes/Goals: F/U in 3-5 days Plan discussed with: Other (SIL [place]) Critical Care Time(min): 35 BRITANY MEDRANO MD Sep 22, 2024 21:46
[2024-09-23] VITALS (32 sets, daily range): BP systolic 128–151; BP diastolic 66–95; PULSE 86–105; RESP 14–39; TEMP 97.4–99.4; O2SAT 92–100
[2024-09-23 03:48] LABS: Alanine Aminotransferase 18 U/L (7-40); Albumin 3.3 g/dL (3.2-4.8); Alkaline Phosphatase 54 U/L (46-116); Anion Gap 2 (5-15); Aspartate Aminotransferase 13 U/L (13-40); BUN/Creatinine Ratio 18.2 (10.0-20.0); Calcium 9.1 mg/dL (8.7-10.4); Chloride 104 mmol/L (98-107); Magnesium 1.7 mg/dL (1.6-2.6); Sodium 143 mmol/L (136-145)
[2024-09-23 03:49] LABS: Basophils # (auto) 0 10 ^3/uL (0-0.2); Bilirubin, Total 0.5 mg/dL (0.2-1.0); Eosinophils # (auto) 0.1 10 ^3/uL (0-0.8); Eosinophils % (auto) 1.6 % (0.0-7.0); Hematocrit 36.6 % (36.0-46.0); Hemoglobin 12.1 g/dL (12.2-16.2); Lymphocytes # (auto) 1.1 10 ^3/uL (0.4-5.4); Lymphocytes % (auto) 15.7 % (10.0-50.0); Mean Corpuscular Hemoglobin 30.6 pg (28.0-32.0); Mean Corpuscular Hgb Conc. 33.2 g/dL (32.0-36.0); Mean Corpuscular Volume 92.3 fL (80.0-100.0); Monocytes # (auto) 0.6 10 ^3/uL (0-1.3); Monocytes % (auto) 9.3 % (0.0-12.0); Neutrophils % (auto) 73.4 % (37.0-80.0); Nucleated Red Blood Cells % 0.1 %; Platelet Count (auto) 151 10^3/uL (140-450); Red Blood Cells 3.96 10^6/uL (4.0-5.20); Red Cell Distribution Width 15.9 % (11.8-14.3); White Blood Cell 6.8 10^3/uL (4.4-10.8)
[2024-09-23 03:58] LABS: Blood Urea Nitrogen 6 mg/dL (9-23); Carbon Dioxide 37 mmol/L (20-31); Glucose 116 mg/dL (74-106); Phosphorus 2.2 mg/dL (2.4-5.1); Potassium 3.1 mmol/L (3.5-5.1); Total Protein 4.7 g/dL (5.7-8.2)
[2024-09-23] MEDS: POTASSIUM CHL 20MEQ/100ML 100 ML IV SCH (06:11)
[2024-09-23] MEDS: D5W 5% 1,000 ML IV SCH ×2 (08:00→12:00)
--- NOTE | 2024-09-23 10:31 | DVHPNRES ---
Progress Note Date Seen: Sep 23, 2024 Resident Creating Document: SVETLANA BROOKS RESIDENT Has the PT tested + for MRSA If YES, has PT been informed?: No Medical Necessity Reason Pt with a Central, PICC or Fol: Yes The following are medically ne: Jones Catheter Reason for jones catheter: Strict I&O, Total Immobilization Subjective Changes from previous H/P or p: No Changes Objective vital signs Vital Sign Date Time Temp Pulse Resp B/P (MAP) Pulse Ox O2 Delivery O2 Flow Rate FiO2 09/23/24 09:00 96 34 136/74 (94) 99 09/23/24 08:01 99.4 99.4 09/23/24 08:00 Nasal Cannula* 2 28 Total Intake and Output 09/22/24 09/22/24 09/23/24 15:00 23:00 07:00 Intake Total 1028 ml 1437 ml 1265 ml Output Total 4050 ml 4750 ml Balance 1028 ml -2613 ml -3485 ml medications Current Medications Medications Dose Ordered Sig/Elaine Route Start Time Stop Time Status Last Admin Dose Admin Albuterol 2.5 mg Q4HR NEB 09/14/24 02:00 09/23/24 02:31 2.5 MG Ipratropium [place] 0.5 mg Q4HR NEB 09/14/24 02:00 09/23/24 02:31 0.5 MG Pantoprazole Sodium 40 mg DAILY IV 09/14/24 10:00 09/23/24 09:51 40 MG Enoxaparin Sodium 40 mg DAILY SC 09/14/24 10:00 09/23/24 09:52 40 MG Vancomycin HCl 0 ml @ 0 mls/hr UD IV 09/14/24 11:15 Diagnostic Test (Pha) 1 strip Q6HR 09/18/24 00:00 09/23/24 05:49 1 STRIP Insulin Human Regular FOLLOW SLIDING SCALE Q6HR SC 09/18/24 00:00 09/21/24 18:00 2 UNITS Dextrose 50 ml UD IV 09/18/24 00:00 Amino Acids 1,000 ml @ 41 mls/hr DAILY@2200 IV 09/17/24 22:00 09/22/24 21:58 41 MLS/HR Lorazepam 1 mg Q4HP PRN IV 09/20/24 13:30 09/23/24 09:51 1 MG Olanzapine 20 mg DAILY PO 09/21/24 10:00 09/23/24 09:52 20 MG Acetaminophen 650 mg Q6HPRN PRN GT 09/20/24 23:15 09/22/24 06:41 650 MG Prednisone 40 mg DAILY PO 09/22/24 10:00 09/23/24 09:52 40 MG Vancomycin HCl 250 ml @ 250 mls/hr Q10H IV 09/22/24 18:00 09/23/24 04:00 250 MLS/HR Dextrose 1,000 ml @ 75 mls/hr [id number] IV 09/23/24 07:45 09/23/24 08:00 75 MLS/HR Examination GENERAL:Normal (Awake RASS+1, Off of vent), HEENT:Normal (Central venous catheter intact,), NECK:Normal, LUNGS:Normal (Bilateral clear, on 3-4 L nasal cannula oxygen) shallow rapid breathing, CVS:Normal (Unchanged sinus rhythm), ABDOMEN:Normal (BS positive, no distention or rigidity.), MSK:Normal (Can not assess strength, unchanged muscle mass, grossly no pitting edema/injury noted.), SKIN:Normal, NEURO:Normal ( mild anxiety, awake), :Normal (foleys) laboratory and microbiology Laboratory Tests 09/23/24 03:09 Test 09/23/24 03:09 Range/Units Serum Glucose 116 H 74-106 mg/dL Microbiology Date/Time Source Procedure Growth Status 09/15/24 21:15 Nose MRSA Screen - Final Methicillin Resistant S.aureus Complete 09/15/24 02:00 Sputum Expectorated Sputum Gram Stain - Final Complete 09/15/24 02:00 Respiratory Culture - Final Methicillin Resistant S.aureus Complete 09/13/24 21:11 Blood Blood Culture - Final NO GROWTH AFTER 5 DAYS OF INCUBATION. Complete Labs and/or images reviewed: Labs reviewed by me, Image(s) reviewed by me Problem List/Assessment/Plan Problem List/Assessment/Plan ICU Course: Ms. White, 54-year-old female with a history of COPD on home oxygen (2-4 L), schizophrenia, and hypertension was brought to the ED with shortness of breath and cough for one day. She was found cyanotic and struggling to breathe at her intermediate, with SpO2 in the mid/low 80s. En route, she received a DuoNeb treatment and 8 L of oxygen via nasal cannula. She denies fever, flu-like symptoms, chest pain, dizziness, diaphoresis, abdominal pain, nausea, vomiting, or changes in bowel and bladder movements. At presentation patient was found to have a hypoxic and hypercapnic respiratory failure on BiPAP it worsened with more of CO2 retention with worsening respiratory acidosis needing intubation at ED. patient was also found to have possible infection with aspiration pneumonia and presented in sepsis. Septic shock was treated with IV fluid and Levophed. Patient improved significantly overnight. Patient remains hemodynamically stable. Hospitalization day: 10 A. Neurolgy: # Sedated on Fentanyl 150 mcg/hr and Versed 5 mg/hr>> Precedex, as needed Ativan>> off of sedation, awake alert x 4 # schizophrenia: When patient has access to oral medication we will consider. Patient takes Haldol at home, will add as it might help with agitation. QTC not concerning. Patient is started on olanzapine 10, increased olanzapine 20 check for EKG for QTC unremarkable # insomnia: Trazodone 75 mg at night, sertraline 100 mg started # anxiety disorder: as needed Ativan, continue. B. Cardiology: # NSTEMI type 2 secondary to above: Troponin trends are 58>136, likely demand mediated no EKG changes. telemetry unremarkable, few PVCs. Keep magnesium over 2, potassium over 4 keep the patient on telemetry # Probable anteroseptal infarct, old # Nonspecific T abnormalities inferior leads, troponin -ve # Left posterior fascicular block: Continue close monitoring we will try to avoid fatemeh blockers, no concerning findings noted on tele. Echo repeated WNL C. Respiratory: # Acute exacerbation of chronic COPD: Patient is on BiPAP with saturation 98%>> increasing CO2, can not protect airways>> needing intubation>> off of intubation on high-flow nasal cannula oxygen keep SpO2 between 88-92 Patient will benefit from pulmonary rehabilitation in the skilled nursing. minimal vent settings. # Acute on chronic respiratory failure: secondary to acute exacerbation of chronic COPD, Echo on 03/09 revealed ejection fraction 50% with grade 1 diastolic dysfunction and RVSP 34 mm Hg. Successful weaning. # vent care: Pulmonology consulted, we will follow. CPAP trial, when appropriate, sedation holiday. Minimal vent setting. # Patient failed CPAP previously now post extubation. Keep the patient NPO, swallow eval and further post extubation management as per ICU standard. Patient needs PT post extubation. # Possible community-acquired Gram-positive versus Gram-negative pneumonia: IV ceftriaxone 1 g daily and IV azithromycin 500 mg >> change to cefepime plus vancomycin, daily negative for viral panel, RSV panel pending. Discontinued cefepime and azithromycin Continue vancomycin as MRSA +ve. # Oropharyngeal swelling: Improved with IV Benadryl 25 mg D. Gastrointestinal: # on PPI E. Genitourinary: # on foleys passing urine F. Infectious Disease: # sepsis secondary to above: IV vancomycin only as patient is Staphylococcus positive in sputum culture # Nares +ve for MRSA: 5 days of mupirocin bid to continue. G. Hematology & Oncology: # Leukopenia: WBC mildly low likely sepsis / septic shock related. predominant neutrophilia and lymphopenia. # mild thrombocytopenia, recovering: This morning platelets 134, mildly dropped, continues to drop to 100, follow CBC tomorrow if patient continues to have platelet drop we will hold antiplatelets and anticoagulation. H. Nephrology: # close intake output. # likely contraction alkalosis: Patient's past heavy amount of urine despite the fact patient is not on diuretics. Likely due to auto diuresis in the recovery phase of acute disease. Fluid challenge/LR to continue. # patient is having antidiuresis: Urine output almost 7 L overnight. workup in progress. ? ADH deficiency. # Hypernatremia, hypovolumic: likely due to intravascular volume depletion due to above, on IV fluids to compensate. workup in progress, BMP repeat at 5 pm this afternoon. Free water deficit 800 ml. serum osmolality, urine osmolality, urine sodium, urea, creatinine to check immediately. AVOID overcoorection more than 8-10 MEq in 24 hours to avoid cerebral edema. Started the patient on D5W 150 cc/ hour. 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 # Mixed acid-base disorder: Primary Metabolic Acidosis With Secondary Respiratory Acidosis And Additional Metabolic Alkalosis Likely Due To Contraction Alkalosis. I. Endocrine: # Target BG 140-180 in hospital as per NICE-Sugar trial. J. MSK: #moderate muscle mass, high risk of ICU myopathy #climnimax started # physical therapy>> SNF placement. K. Prophylaxis: PPI: Protonix DVT: Lovenox L. Lines & Drains (with insertion date): IV Central : Y Arterial line: Y M. Drips: off N. Disposition: Downgrade to Telemetry floor. The plan was discussed with Dr. Connolly. The patient care consists of total 81 minutes of critical care time excluding the procedures. Chronic intermediate resident at [facility]: PT evaluation appreciated disposition to SNF Plan discussed with: Patient, Other My Orders My Orders Orders - SVETLANA BROOKS RESIDENT Procedure Category Date Status Time Transfer Orders XFER 09/22/24 Transmitted 11:19 Assess Urine Specific [place] 09/22/24 In Process [place] 11:23 Urea Nitrogen (Body LAB 09/22/24 In Process Fluid) 11:23 Clinimix Per Pharmacy [facility] 09/22/24 In Process 22:00 Abg W/ Co-Ox RT 09/22/24 Logged 13:35 BIPAP RT 09/22/24 Logged 13:40 Abg W/ Co-Ox RT 09/22/24 Logged 16:00 Echo 2d Mode Cardiac US 09/22/24 Resulted DOP 14:03 Chest Xray 1 View XY 09/22/24 Resulted 15:57 Abg W/ Co-Ox RT 09/23/24 Logged 04:00 D5w 5% (Dextrose 5%) PHA 09/23/24 In Process 07:45 Transfer Orders XFER 09/23/24 Transmitted 07:41 Potassium Phosphate PHA 09/23/24 Logged 10:00 Dietary Evaluation Review Comments: 1) Continue to monitor pt PO intake to meet at least 75% of meals 2) Continue current plan of care Expected Outcomes/Goals: F/U in 3-5 days Date of Service: Sep 23, 2024 Billing Provider: CHRISTAL ABRAHAM MD Common Visit Codes: [id number] INP/OBS CARE(HIGH) SVETLANA BROOKS RESIDENT Sep 23, 2024 10:31 CHRISTAL ABRAHAM MD Sep 24, 2024 09:20
[2024-09-23] MEDS: POTASSIUM PHOSPHATE 22 MEQ in SODIUM CHL 0.9% 100 ML IV ONE (11:50)
[2024-09-23] MEDS ORDERED: D5W 5% 1,000 ML IV SCH (12:00)
--- NOTE | 2024-09-23 13:05 | MEDREC ---
[facility] Intervention Section I [facility] Intervention: Review courses of therapy (10 DAYS ON VANCOMYCIN FOR MRSA PNEUMONIA - RECOMMENDED TREATMENT DURATION 5 TO 7 DAYS - PLEASE CONSIDER D/C VANCOMYCIN) JOSE RAUL ORDAZ PHARMACIST Sep 23, 2024 13:05
[2024-09-23] MEDS: DESMOPRESSIN ACET 4 MCG/1 ML AMPULE IV SCH (14:11)
[2024-09-23] MEDS: VANCOMYCIN 750MG VIAL 750 MG in D5W 5% 100 ML IV SCH (14:11)
[2024-09-23 17:14] LABS: Base Excess -14.4 mmol/L (-2.0-3.0)
--- NOTE | 2024-09-23 18:22 | DVHINCON2 ---
Date of service: Sep 23, 2024 Reason for Consultation Polyuria History of Present Illness 54 years old female with past medical history of COPD, schizophrenia, hypertension admitted for shortness of breath found to be hypoxic and eventually intubated and treated for MRSA pneumonia nephrology consulted for polyuria and hypernatremia Patient is eventually extubated not on any pressors seen and examined in ICU Past Medical History As per HPI Allergies: Coded Allergies: NO KNOWN ALLERGIES (Unverified , 11/11/23) Home Meds Active Scripts Ondansetron Odt 4MG Tab (ZOFRAN PO) 4 Mg Tb, 4 MG PO TIDPRN PRN for 7 Days, #21 TAB ODT TAB-DISSOLVE IN MOUTH, THEN SWALLOW Prov:CHRISTAL ABRAHAM MD 07/08/24 Reported Medications Haloperidol (Haldol) 5 Mg Tb, 3 MG PO BID, MG 03/15/24 Benztropine Mesylate (Benztropine Mesylate) 1 Mg Tab, 1 MG PO BID, MG 03/15/24 Trazodone Hcl (Trazodone Hcl) 50 Mg Tab, 75 MG PO HS, MG 03/15/24 Lorazepam (ATIVAN TABLET) 0.5 Mg Tb, 0.5 MG PO Q4HPRN PRN for ANXIETY, TAB 03/15/24 Current Medications Current Medications Medications (Trade) Dose Ordered Sig/Elaine Route PRN Reason Start Time Stop Time Status Last Admin Potassium Chloride 100 ml @ 50 mls/hr Q2H IV 09/23/24 05:30 09/23/24 09:29 DC 09/23/24 08:10 Dextrose 1,000 ml @ 75 mls/hr [id number] IV 09/23/24 07:45 09/23/24 17:04 DC 09/23/24 08:00 Desmopressin Acetate (Ddavp Injection) 1 mcg BID IV 09/23/24 12:45 09/23/24 14:11 Vancomycin HCl 750 mg/Dextrose 100 ml @ 100 mls/hr Q8HR IV 09/23/24 14:00 09/23/24 17:46 DC 09/23/24 14:11 Dextrose 1,000 ml @ 100 mls/hr Q10H IV 09/23/24 12:00 09/23/24 16:33 DC Dextrose 1,000 ml @ 100 mls/hr Q10H IV 09/23/24 12:00 09/23/24 12:00 Family History: Anxiety disorder FH: COPD (chronic obstructive pulmonary disease) FH: schizophrenia Review of Systems Per HPI H&P Exam Vital Signs/I&O Vital Sign Date Time Temp Pulse Resp B/P (MAP) Pulse Ox O2 Delivery O2 Flow Rate FiO2 09/23/24 18:00 90 20 99 Nasal Cannula* 4 36 09/23/24 17:00 133/74 (93) 09/23/24 16:00 98.4 98.4 Intake and Output 09/22/24 09/23/24 19:00 07:00 Intake Total 1892 ml 1838 ml Output Total 4050 ml 4750 ml Balance -2158 ml -2912 ml Intake Oral 100 ml 10 ml IV Total 1792 ml 1828 ml Output Urine Total 4050 ml 4750 ml # Bowel Movements 1 1 Physical Exam Patient remains in isolation Using nasal cannula fair air entry Alert awake oriented No edema Labs/Diagnostic Data Labs/Diagnostic Data Laboratory Tests Test 09/23/24 16:57 09/23/24 12:59 09/23/24 11:49 09/23/24 05:48 Range/Units Blood Gas Specimen Type Arterial Blood Gas Sample Site Right radial Blood Gas Patient Temperature 37.0 Arterial Blood Date Drawn [id number] Arterial Blood pH 7.195 *L 7.350-7.450 Arterial Blood Partial Pressure CO2 33.4 32.0-45.0 mmHg Arterial Blood Partial Pressure O2 91.4 83.0-108.0 mmHg Arterial Blood HCO3 12.6 L 21.0-28.0 mmol/L Arterial Blood Oxygen Saturation 94.2 94.0-98.0 % Arterial Blood Base Excess -14.4 L -2.0-3.0 mmol/L Arterial Blood Oxyhemoglobin 93.8 L 94.0-98.0 % Arterial Blood Carboxyhemoglobin 0.1 L 0.5-1.5 % Arterial Blood Methemoglobin 0.3 0.0-1.5 % Clay Test Modified Blood Gas Total Hemoglobin 12.20 12.0-16.0 g/dL Blood Gas Set Respiration Rate 20.0 Blood Gas Modality Vent - ac Blood Gas Spontaneous Rate 31 FiO2 % 100.0 Blood Gas Tidal Volume 400.0 Blood Gas Inspiratory Pressure 36.0 Blood Gas PEEP or CPAP 8.0 Bl Gas Inspiratory/Expiratory Ratio 1:1.4 Specimen Drawn By rigoberto barrios Blood Gas Critical Value Read Back yes Blood Gas Notified Whom aníbal black Blood Gas Notified Time [id number] Blood Gas Notified By rigoberto barrios Vancomycin Level Trough 10.2 H 5-10 ug/mL POC Glucose 118 H 128 H 70-106 mg/dl Test 09/23/24 03:09 09/22/24 23:31 09/22/24 17:59 09/22/24 17:11 Range/Units White Blood Count 6.8 4.4-10.8 10^3/uL Red Blood Count 3.96 L 4.0-5.20 10^6/uL Hemoglobin 12.1 L 12.2-16.2 g/dL Hematocrit 36.6 36.0-46.0 % Mean Corpuscular Volume 92.3 80.0-100.0 fL Mean Corpuscular Hemoglobin 30.6 28.0-32.0 pg Mean Corpuscular Hemoglobin Concent 33.2 32.0-36.0 g/dL Red Cell Distribution Width 15.9 H 11.8-14.3 % Platelet Count 151 140-450 10^3/uL Mean Platelet Volume 7.9 6.9-10.8 fL Neutrophils (%) (Auto) 73.4 37.0-80.0 % Lymphocytes (%) (Auto) 15.7 10.0-50.0 % Monocytes (%) (Auto) 9.3 0.0-12.0 % Eosinophils (%) (Auto) 1.6 0.0-7.0 % Basophils (%) (Auto) 0.0 0.0-2.0 % Neutrophils # (Auto) 5.0 1.6-8.6 10 ^3/uL Lymphocytes # (Auto) 1.1 0.4-5.4 10 ^3/uL Monocytes # (Auto) 0.6 0-1.3 10 ^3/uL Eosinophils # (Auto) 0.1 0-0.8 10 ^3/uL Basophils # (Auto) 0 0-0.2 10 ^3/uL Nucleated Red Blood Cells 0.1 % Sodium Level 143 147 H 136-145 mmol/L Potassium Level 3.1 L 3.6 3.5-5.1 mmol/L Chloride Level 104 105 98-107 mmol/L Carbon Dioxide Level 37 H 40 H 20-31 mmol/L Anion Gap 2 L 2 L 5-15 Blood Urea Nitrogen 6 L 10 9-23 mg/dL Creatinine 0.33 L 0.39 L 0.550-1.02 mg/dL Glomerular Filtration Rate Calc 122 118 >90 mL/min BUN/Creatinine Ratio 18.2 25.6 H 10.0-20.0 Serum Glucose 116 H 150 H 74-106 mg/dL Calcium Level 9.1 9.2 8.7-10.4 mg/dL Phosphorus Level 2.2 L 2.4-5.1 mg/dL Magnesium Level 1.7 1.6-2.6 mg/dL Total Bilirubin 0.5 0.2-1.0 mg/dL Aspartate Amino Transferase (AST) 13 13-40 U/L Alanine Aminotransferase (ALT) 18 7-40 U/L Alkaline Phosphatase 54 46-116 U/L Total Protein 4.7 L 5.7-8.2 g/dL Albumin 3.3 3.2-4.8 g/dL Vancomycin Level Trough 9.8 5-10 ug/mL POC Glucose 97 126 H 70-106 mg/dl Test 09/22/24 16:40 09/22/24 16:14 09/22/24 13:35 09/22/24 12:46 Range/Units Blood Gas Specimen Type Arterial Arterial Blood Gas Sample Site Right radial Right radial Blood Gas Patient Temperature 37.0 37.0 Arterial Blood Date Drawn [id number] Arterial Blood pH 7.400 7.277 L 7.350-7.450 Arterial Blood Partial Pressure CO2 61.1 *H 78.8 *H 32.0-45.0 mmHg Arterial Blood Partial Pressure O2 77.6 L 174.9 H 83.0-108.0 mmHg Arterial Blood HCO3 37.0 H 35.9 H 21.0-28.0 mmol/L Arterial Blood Oxygen Saturation 94.7 98.9 H 94.0-98.0 % Arterial Blood Base Excess 9.9 H 6.1 H -2.0-3.0 mmol/L Arterial Blood Oxyhemoglobin 93.8 L 97.7 94.0-98.0 % Arterial Blood Carboxyhemoglobin 0.8 0.9 0.5-1.5 % Arterial Blood Methemoglobin 0.2 0.3 0.0-1.5 % Clay Test Yes Yes Blood Gas Total Hemoglobin 13.50 14.30 12.0-16.0 g/dL Blood Gas Set Respiration Rate 12.0 Blood Gas Modality Mask - bipap Mask - nrb Blood Gas Spontaneous Rate 30 FiO2 % 40.0 100.0 Blood Gas Spontaneous Tidal Volume 350 Blood Gas EPAP 5 Blood Gas IPAP 12 Blood Gas Critical Value Read Back Yes Yes Blood Gas Notified Whom juanita Cordova md, s. md Blood Gas Notified Time [id number] Blood Gas Notified By Anabel [employer]abel [employer] Urine Osmolality 275 mOsm/kg Urine Creatinine 7.73 L 30.0-125.0 mg/dL Urine Protein/Creatinine Ratio 1.24 Urine Sodium 105 40-220 mmol/L Urine Potassium 6 L 12-62 mmol/L Urine Total Protein 9.6 1-14 mg/dL Blood Gas Liter Flow 15.00 Serum Osmolality 306 H 278-298 mOsm/kg Test 09/22/24 11:20 09/22/24 05:50 09/22/24 03:35 09/21/24 23:29 Range/Units POC Glucose 103 95 112 H 70-106 mg/dl White Blood Count 6.8 # 4.4-10.8 10^3/uL Red Blood Count 3.99 L 4.0-5.20 10^6/uL Hemoglobin 12.2 12.2-16.2 g/dL Hematocrit 36.9 36.0-46.0 % Mean Corpuscular Volume 92.4 80.0-100.0 fL Mean Corpuscular Hemoglobin 30.5 28.0-32.0 pg Mean Corpuscular Hemoglobin Concent 33.0 32.0-36.0 g/dL Red Cell Distribution Width 16.4 H 11.8-14.3 % Platelet Count 155 140-450 10^3/uL Mean Platelet Volume 8.1 6.9-10.8 fL Neutrophils (%) (Auto) 81.0 H 37.0-80.0 % Lymphocytes (%) (Auto) 7.6 L 10.0-50.0 % Monocytes (%) (Auto) 11.3 0.0-12.0 % Eosinophils (%) (Auto) 0.1 0.0-7.0 % Basophils (%) (Auto) 0.0 0.0-2.0 % Neutrophils # (Auto) 5.5 1.6-8.6 10 ^3/uL Lymphocytes # (Auto) 0.5 0.4-5.4 10 ^3/uL Monocytes # (Auto) 0.8 0-1.3 10 ^3/uL Eosinophils # (Auto) 0 0-0.8 10 ^3/uL Basophils # (Auto) 0 0-0.2 10 ^3/uL Nucleated Red Blood Cells 0.1 % Sodium Level 149 #H 136-145 mmol/L Potassium Level 3.5 3.5-5.1 mmol/L Chloride Level 110 H 98-107 mmol/L Carbon Dioxide Level 37 H 20-31 mmol/L Anion Gap 2 L 5-15 Blood Urea Nitrogen 10 9-23 mg/dL Creatinine 0.40 L 0.550-1.02 mg/dL Glomerular Filtration Rate Calc 117 >90 mL/min BUN/Creatinine Ratio 25.0 H 10.0-20.0 Serum Glucose 107 H 74-106 mg/dL Calcium Level 9.2 8.7-10.4 mg/dL Phosphorus Level 3.7 2.4-5.1 mg/dL Magnesium Level 1.9 1.6-2.6 mg/dL Total Bilirubin 0.3 0.2-1.0 mg/dL Aspartate Amino Transferase (AST) 13 13-40 U/L Alanine Aminotransferase (ALT) 23 7-40 U/L Alkaline Phosphatase 51 46-116 U/L Total Protein 4.7 L 5.7-8.2 g/dL Albumin 3.3 3.2-4.8 g/dL Test 09/21/24 19:56 09/21/24 17:24 09/21/24 12:54 09/21/24 11:51 Range/Units Vancomycin Level Trough 7.1 5-10 ug/mL POC Glucose 140 H 93 70-106 mg/dl Blood Gas Specimen Type Arterial Blood Gas Sample Site Left radial Blood Gas Patient Temperature 37.0 Arterial Blood Date Drawn [id number] Arterial Blood pH 7.372 7.350-7.450 Arterial Blood Partial Pressure CO2 53.2 H 32.0-45.0 mmHg Arterial Blood Partial Pressure O2 58.9 L 83.0-108.0 mmHg Arterial Blood HCO3 30.2 H 21.0-28.0 mmol/L Arterial Blood Oxygen Saturation 87.3 L 94.0-98.0 % Arterial Blood Base Excess 3.8 H -2.0-3.0 mmol/L Arterial Blood Oxyhemoglobin 86.0 L 94.0-98.0 % Arterial Blood Carboxyhemoglobin 1.2 0.5-1.5 % Arterial Blood Methemoglobin 0.3 0.0-1.5 % Clay Test Yes Blood Gas Total Hemoglobin 13.60 12.0-16.0 g/dL Blood Gas Liter Flow 50.00 Blood Gas Modality High flow FiO2 % 30.0 Test 09/21/24 08:43 09/21/24 05:41 09/21/24 03:02 09/20/24 23:28 Range/Units Blood Gas Specimen Type Arterial Blood Gas Sample Site Right radial Blood Gas Patient Temperature 37.0 Arterial Blood Date Drawn [id number] Arterial Blood pH 7.298 L 7.350-7.450 Arterial Blood Partial Pressure CO2 65.6 *H 32.0-45.0 mmHg Arterial Blood Partial Pressure O2 71.2 L 83.0-108.0 mmHg Arterial Blood HCO3 31.4 H 21.0-28.0 mmol/L Arterial Blood Oxygen Saturation 90.3 L 94.0-98.0 % Arterial Blood Base Excess 3.1 H -2.0-3.0 mmol/L Arterial Blood Oxyhemoglobin 89.9 L 94.0-98.0 % Arterial Blood Carboxyhemoglobin 0.3 L 0.5-1.5 % Arterial Blood Methemoglobin 0.1 0.0-1.5 % Clay Test Modified Blood Gas Total Hemoglobin 13.60 12.0-16.0 g/dL Blood Gas Modality Vent - cpap FiO2 % 30.0 Blood Gas Pressure Support 8 Blood Gas PEEP or CPAP 5.0 Blood Gas Critical Value Read Back Yes Blood Gas Notified Whom Dr. juanita cordova Blood Gas Notified Time [id number] Blood Gas Notified By Deck Cadet manujla diane POC Glucose 111 H 101 70-106 mg/dl White Blood Count 3.6 L 4.4-10.8 10^3/uL Red Blood Count 3.77 L 4.0-5.20 10^6/uL Hemoglobin 11.3 L 12.2-16.2 g/dL Hematocrit 34.2 #L 36.0-46.0 % Mean Corpuscular Volume 90.8 80.0-100.0 fL Mean Corpuscular Hemoglobin 30.1 28.0-32.0 pg Mean Corpuscular Hemoglobin Concent 33.1 32.0-36.0 g/dL Red Cell Distribution Width 16.2 H 11.8-14.3 % Platelet Count 122 L 140-450 10^3/uL Mean Platelet Volume 8.2 6.9-10.8 fL Neutrophils (%) (Auto) 87.0 H 37.0-80.0 % Lymphocytes (%) (Auto) 7.9 L 10.0-50.0 % Monocytes (%) (Auto) 4.9 0.0-12.0 % Eosinophils (%) (Auto) 0.1 0.0-7.0 % Basophils (%) (Auto) 0.1 0.0-2.0 % Neutrophils # (Auto) 3.1 1.6-8.6 10 ^3/uL Lymphocytes # (Auto) 0.3 L 0.4-5.4 10 ^3/uL Monocytes # (Auto) 0.2 0-1.3 10 ^3/uL Eosinophils # (Auto) 0 0-0.8 10 ^3/uL Basophils # (Auto) 0 0-0.2 10 ^3/uL Nucleated Red Blood Cells 0.0 % Sodium Level 140 136-145 mmol/L Potassium Level 3.6 3.5-5.1 mmol/L Chloride Level 104 98-107 mmol/L Carbon Dioxide Level 33 H 20-31 mmol/L Anion Gap 3 L 5-15 Blood Urea Nitrogen 13 9-23 mg/dL Creatinine 0.33 L 0.550-1.02 mg/dL Glomerular Filtration Rate Calc 122 >90 mL/min BUN/Creatinine Ratio 39.4 H 10.0-20.0 Serum Glucose 135 H 74-106 mg/dL Calcium Level 9.0 8.7-10.4 mg/dL Phosphorus Level 3.1 2.4-5.1 mg/dL Magnesium Level 1.7 1.6-2.6 mg/dL Total Bilirubin 0.4 0.2-1.0 mg/dL Aspartate Amino Transferase (AST) 14 13-40 U/L Alanine Aminotransferase (ALT) 14 7-40 U/L Alkaline Phosphatase 45 L 46-116 U/L Total Protein 4.4 L 5.7-8.2 g/dL Albumin 3.0 L 3.2-4.8 g/dL Triglycerides Level 71 < 150 mg/dL Test 09/20/24 17:11 09/20/24 11:04 09/20/24 07:44 09/20/24 05:59 Range/Units POC Glucose 105 157 H 141 H 70-106 mg/dl Blood Gas Specimen Type Arterial Blood Gas Sample Site Left radial Blood Gas Patient Temperature 37.0 Arterial Blood Date Drawn [id number] Arterial Blood pH 7.485 H 7.350-7.450 Arterial Blood Partial Pressure CO2 41.3 32.0-45.0 mmHg Arterial Blood Partial Pressure O2 74.3 L 83.0-108.0 mmHg Arterial Blood HCO3 30.4 H 21.0-28.0 mmol/L Arterial Blood Oxygen Saturation 94.7 94.0-98.0 % Arterial Blood Base Excess 6.4 H -2.0-3.0 mmol/L Arterial Blood Oxyhemoglobin 93.9 L 94.0-98.0 % Arterial Blood Carboxyhemoglobin 0.7 0.5-1.5 % Arterial Blood Methemoglobin 0.1 0.0-1.5 % Clay Test Modified Blood Gas Total Hemoglobin 13.20 12.0-16.0 g/dL Blood Gas Set Respiration Rate 18.0 Blood Gas Modality Vent - ac Blood Gas Spontaneous Rate 18 FiO2 % 30.0 Blood Gas Tidal Volume 450.0 Blood Gas Inspiratory Pressure 26.0 Blood Gas PEEP or CPAP 5.0 Bl Gas Inspiratory/Expiratory Ratio 1:3.1 Specimen Drawn By rigoberto barrios Test 09/20/24 03:27 09/19/24 23:17 09/19/24 17:50 09/19/24 12:15 Range/Units White Blood Count 4.3 L 4.4-10.8 10^3/uL Red Blood Count 4.21 4.0-5.20 10^6/uL Hemoglobin 12.6 12.2-16.2 g/dL Hematocrit 38.6 36.0-46.0 % Mean Corpuscular Volume 91.6 80.0-100.0 fL Mean Corpuscular Hemoglobin 30.0 28.0-32.0 pg Mean Corpuscular Hemoglobin Concent 32.7 32.0-36.0 g/dL Red Cell Distribution Width 15.9 H 11.8-14.3 % Platelet Count 126 L 140-450 10^3/uL Mean Platelet Volume 7.9 6.9-10.8 fL Neutrophils (%) (Auto) 86.4 H 37.0-80.0 % Lymphocytes (%) (Auto) 6.5 L 10.0-50.0 % Monocytes (%) (Auto) 6.9 0.0-12.0 % Eosinophils (%) (Auto) 0.1 0.0-7.0 % Basophils (%) (Auto) 0.1 0.0-2.0 % Neutrophils # (Auto) 3.7 1.6-8.6 10 ^3/uL Lymphocytes # (Auto) 0.3 L 0.4-5.4 10 ^3/uL Monocytes # (Auto) 0.3 0-1.3 10 ^3/uL Eosinophils # (Auto) 0 0-0.8 10 ^3/uL Basophils # (Auto) 0 0-0.2 10 ^3/uL Nucleated Red Blood Cells 0.0 % Sodium Level 138 136-145 mmol/L Potassium Level 4.0 3.5-5.1 mmol/L Chloride Level 102 98-107 mmol/L Carbon Dioxide Level 33 H 20-31 mmol/L Anion Gap 3 L 5-15 Blood Urea Nitrogen 12 9-23 mg/dL Creatinine 0.40 L 0.550-1.02 mg/dL Glomerular Filtration Rate Calc 117 >90 mL/min BUN/Creatinine Ratio 30.0 H 10.0-20.0 Serum Glucose 147 H 74-106 mg/dL Calcium Level 9.1 8.7-10.4 mg/dL Phosphorus Level 3.5 2.4-5.1 mg/dL Magnesium Level 1.7 1.6-2.6 mg/dL Total Bilirubin 0.3 0.2-1.0 mg/dL Aspartate Amino Transferase (AST) 10 L 13-40 U/L Alanine Aminotransferase (ALT) < 9 7-40 U/L Alkaline Phosphatase 46 46-116 U/L Total Protein 4.6 L 5.7-8.2 g/dL Albumin 3.2 3.2-4.8 g/dL Random Vancomycin Level 6.9 5-10 ug/mL POC Glucose 141 H 127 H 146 H 70-106 mg/dl Test 09/19/24 12:06 09/19/24 06:52 1/4/25 05:25 09/19/24 03:20 Range/Units Vancomycin Level Trough 20.1 H 5-10 ug/mL Blood Gas Specimen Type Arterial Blood Gas Sample Site Right radial Blood Gas Patient Temperature 37.0 Arterial Blood Date Drawn [id number] Arterial Blood pH 7.424 7.350-7.450 Arterial Blood Partial Pressure CO2 47.1 H 32.0-45.0 mmHg Arterial Blood Partial Pressure O2 72.5 L 83.0-108.0 mmHg Arterial Blood HCO3 30.1 H 21.0-28.0 mmol/L Arterial Blood Oxygen Saturation 93.3 L 94.0-98.0 % Arterial Blood Base Excess 4.9 H -2.0-3.0 mmol/L Arterial Blood Oxyhemoglobin 92.9 L 94.0-98.0 % Arterial Blood Carboxyhemoglobin 0.4 L 0.5-1.5 % Arterial Blood Methemoglobin 0.0 0.0-1.5 % Caly Test Modified Blood Gas Total Hemoglobin 13.40 12.0-16.0 g/dL Blood Gas Set Respiration Rate 18.0 Blood Gas Modality Vent - ac FiO2 % 30.0 Blood Gas Tidal Volume 450.0 Blood Gas PEEP or CPAP 5.0 POC Glucose 107 H 70-106 mg/dl White Blood Count 5.7 # 4.4-10.8 10^3/uL Red Blood Count 4.27 4.0-5.20 10^6/uL Hemoglobin 12.7 12.2-16.2 g/dL Hematocrit 39.2 # 36.0-46.0 % Mean Corpuscular Volume 91.9 80.0-100.0 fL Mean Corpuscular Hemoglobin 29.8 28.0-32.0 pg Mean Corpuscular Hemoglobin Concent 32.4 32.0-36.0 g/dL Red Cell Distribution Width 16.3 H 11.8-14.3 % Platelet Count 132 L 140-450 10^3/uL Mean Platelet Volume 8.1 6.9-10.8 fL Neutrophils (%) (Auto) 87.5 H 37.0-80.0 % Lymphocytes (%) (Auto) 5.8 L 10.0-50.0 % Monocytes (%) (Auto) 6.5 0.0-12.0 % Eosinophils (%) (Auto) 0.0 0.0-7.0 % Basophils (%) (Auto) 0.2 0.0-2.0 % Neutrophils # (Auto) 5.0 1.6-8.6 10 ^3/uL Lymphocytes # (Auto) 0.3 L 0.4-5.4 10 ^3/uL Monocytes # (Auto) 0.4 0-1.3 10 ^3/uL Eosinophils # (Auto) 0 0-0.8 10 ^3/uL Basophils # (Auto) 0 0-0.2 10 ^3/uL Nucleated Red Blood Cells 0.2 % Sodium Level 137 136-145 mmol/L Potassium Level 3.7 3.5-5.1 mmol/L Chloride Level 103 98-107 mmol/L Carbon Dioxide Level 33 H 20-31 mmol/L Anion Gap 1 L 5-15 Blood Urea Nitrogen 14 9-23 mg/dL Creatinine 0.41 L 0.550-1.02 mg/dL Glomerular Filtration Rate Calc 116 >90 mL/min Estimated GFR () 213 mL/min Estimated GFR (Non- 176 mL/min BUN/Creatinine Ratio 34.1 H 10.0-20.0 Serum Glucose 150 H 74-106 mg/dL Calcium Level 9.5 8.7-10.4 mg/dL Phosphorus Level 2.9 2.4-5.1 mg/dL Magnesium Level 1.7 1.6-2.6 mg/dL Total Bilirubin 0.4 0.2-1.0 mg/dL Aspartate Amino Transferase (AST) < 8 L 13-40 U/L Alanine Aminotransferase (ALT) 9 7-40 U/L Alkaline Phosphatase 47 46-116 U/L Total Protein 5.0 L 5.7-8.2 g/dL Albumin 3.5 3.2-4.8 g/dL Test 09/18/24 23:22 09/18/24 16:55 09/18/24 10:46 09/18/24 07:52 Range/Units POC Glucose 99 107 H 224 H 70-106 mg/dl Blood Gas Specimen Type Arterial Blood Gas Sample Site Right radial Blood Gas Patient Temperature 37.0 Arterial Blood Date Drawn [id number] Arterial Blood pH 7.405 7.350-7.450 Arterial Blood Partial Pressure CO2 44.2 32.0-45.0 mmHg Arterial Blood Partial Pressure O2 76.9 L 83.0-108.0 mmHg Arterial Blood HCO3 27.1 21.0-28.0 mmol/L Arterial Blood Oxygen Saturation 94.4 94.0-98.0 % Arterial Blood Base Excess 2.0 -2.0-3.0 mmol/L Arterial Blood Oxyhemoglobin 94.0 94.0-98.0 % Arterial Blood Carboxyhemoglobin 0.4 L 0.5-1.5 % Arterial Blood Methemoglobin 0.0 0.0-1.5 % Clay Test Modified Blood Gas Total Hemoglobin 12.40 12.0-16.0 g/dL Blood Gas Set Respiration Rate 18.0 Blood Gas Modality Vent - ac FiO2 % 30.0 Blood Gas Tidal Volume 450.0 Blood Gas PEEP or CPAP 5.0 Test 09/18/24 05:32 09/18/24 03:02 09/18/24 00:08 09/17/24 19:53 Range/Units POC Glucose 188 H 148 H 70-106 mg/dl White Blood Count 3.5 L 4.4-10.8 10^3/uL Red Blood Count 3.73 L 4.0-5.20 10^6/uL Hemoglobin 11.3 L 12.2-16.2 g/dL Hematocrit 34.2 L 36.0-46.0 % Mean Corpuscular Volume 91.8 80.0-100.0 fL Mean Corpuscular Hemoglobin 30.4 28.0-32.0 pg Mean Corpuscular Hemoglobin Concent 33.2 32.0-36.0 g/dL Red Cell Distribution Width 16.2 H 11.8-14.3 % Platelet Count 118 L 140-450 10^3/uL Mean Platelet Volume 8.0 6.9-10.8 fL Neutrophils (%) (Auto) 89.6 H 37.0-80.0 % Lymphocytes (%) (Auto) 5.5 L 10.0-50.0 % Monocytes (%) (Auto) 4.9 0.0-12.0 % Eosinophils (%) (Auto) 0.0 0.0-7.0 % Basophils (%) (Auto) 0.0 0.0-2.0 % Neutrophils # (Auto) 3.1 1.6-8.6 10 ^3/uL Lymphocytes # (Auto) 0.2 L 0.4-5.4 10 ^3/uL Monocytes # (Auto) 0.2 0-1.3 10 ^3/uL Eosinophils # (Auto) 0 0-0.8 10 ^3/uL Basophils # (Auto) 0 0-0.2 10 ^3/uL Nucleated Red Blood Cells 0.1 % Sodium Level 141 136-145 mmol/L Potassium Level 3.9 3.5-5.1 mmol/L Chloride Level 108 H 98-107 mmol/L Carbon Dioxide Level 28 20-31 mmol/L Anion Gap 5 5-15 Blood Urea Nitrogen 12 9-23 mg/dL Creatinine 0.32 L 0.550-1.02 mg/dL Glomerular Filtration Rate Calc 123 >90 mL/min BUN/Creatinine Ratio 37.5 H 10.0-20.0 Serum Glucose 178 H 74-106 mg/dL Calcium Level 9.0 8.7-10.4 mg/dL Phosphorus Level 3.0 2.4-5.1 mg/dL Magnesium Level 1.8 1.6-2.6 mg/dL Total Bilirubin 0.3 0.2-1.0 mg/dL Aspartate Amino Transferase (AST) < 8 L 13-40 U/L Alanine Aminotransferase (ALT) 9 7-40 U/L Alkaline Phosphatase 42 L 46-116 U/L Total Protein 4.4 L 5.7-8.2 g/dL Albumin 3.1 L 3.2-4.8 g/dL Vancomycin Level Trough 18.5 H 5-10 ug/mL Test 09/17/24 06:45 09/17/24 02:34 09/16/24 10:47 09/16/24 06:47 Range/Units Blood Gas Specimen Type Arterial Arterial Blood Gas Sample Site Right radial Left radial Blood Gas Patient Temperature 37.0 37.0 Arterial Blood Date Drawn [id number] Arterial Blood pH 7.367 7.420 7.350-7.450 Arterial Blood Partial Pressure CO2 51.7 H 47.9 H 32.0-45.0 mmHg Arterial Blood Partial Pressure O2 67.8 L 62.4 L 83.0-108.0 mmHg Arterial Blood HCO3 29.0 H 30.4 H 21.0-28.0 mmol/L Arterial Blood Oxygen Saturation 91.7 L 91.4 L 94.0-98.0 % Arterial Blood Base Excess 2.7 5.0 H -2.0-3.0 mmol/L Arterial Blood Oxyhemoglobin 90.1 L 90.3 L 94.0-98.0 % Arterial Blood Carboxyhemoglobin 1.1 0.7 0.5-1.5 % Arterial Blood Methemoglobin 0.6 0.5 0.0-1.5 % Clay Test Modified Modified Blood Gas Total Hemoglobin 13.20 12.70 12.0-16.0 g/dL Blood Gas Set Respiration Rate 18.0 18.0 Blood Gas Modality Vent - ac Vent - ac FiO2 % 30.0 30.0 Blood Gas Tidal Volume 450.0 450.0 Blood Gas PEEP or CPAP 5.0 5.0 White Blood Count 3.8 #L 4.4-10.8 10^3/uL Red Blood Count 3.99 L 4.0-5.20 10^6/uL Hemoglobin 12.0 L 12.2-16.2 g/dL Hematocrit 37.0 36.0-46.0 % Mean Corpuscular Volume 92.6 80.0-100.0 fL Mean Corpuscular Hemoglobin 30.1 28.0-32.0 pg Mean Corpuscular Hemoglobin Concent 32.5 32.0-36.0 g/dL Red Cell Distribution Width 16.6 H 11.8-14.3 % Platelet Count 122 L 140-450 10^3/uL Mean Platelet Volume 8.6 6.9-10.8 fL Neutrophils (%) (Auto) 90.2 H 37.0-80.0 % Lymphocytes (%) (Auto) 4.8 L 10.0-50.0 % Monocytes (%) (Auto) 5.0 0.0-12.0 % Eosinophils (%) (Auto) 0.0 0.0-7.0 % Basophils (%) (Auto) 0.0 0.0-2.0 % Neutrophils # (Auto) 3.4 1.6-8.6 10 ^3/uL Lymphocytes # (Auto) 0.2 L 0.4-5.4 10 ^3/uL Monocytes # (Auto) 0.2 0-1.3 10 ^3/uL Eosinophils # (Auto) 0 0-0.8 10 ^3/uL Basophils # (Auto) 0 0-0.2 10 ^3/uL Nucleated Red Blood Cells 0.1 % Sodium Level 142 136-145 mmol/L Potassium Level 4.4 3.5-5.1 mmol/L Chloride Level 108 H 98-107 mmol/L Carbon Dioxide Level 29 20-31 mmol/L Anion Gap 5 5-15 Blood Urea Nitrogen 20 9-23 mg/dL Creatinine 0.44 L 0.550-1.02 mg/dL Glomerular Filtration Rate Calc 114 >90 mL/min BUN/Creatinine Ratio 45.5 H 10.0-20.0 Serum Glucose 163 H 74-106 mg/dL Calcium Level 9.6 8.7-10.4 mg/dL Total Bilirubin 0.3 0.2-1.0 mg/dL Aspartate Amino Transferase (AST) < 8 L 13-40 U/L Alanine Aminotransferase (ALT) 12 7-40 U/L Alkaline Phosphatase 47 46-116 U/L Total Protein 4.9 L 5.7-8.2 g/dL Albumin 3.4 3.2-4.8 g/dL POC Glucose 148 H 70-106 mg/dl Blood Gas Spontaneous Rate 18 Test 09/16/24 04:48 09/16/24 00:39 09/15/24 07:42 09/15/24 04:42 Range/Units White Blood Count 3.0 L 2.7 L 4.4-10.8 10^3/uL Red Blood Count 3.80 L 3.80 L 4.0-5.20 10^6/uL Hemoglobin 11.6 L 11.7 L 12.2-16.2 g/dL Hematocrit 35.2 L 35.5 L 36.0-46.0 % Mean Corpuscular Volume 92.6 93.3 80.0-100.0 fL Mean Corpuscular Hemoglobin 30.4 30.9 28.0-32.0 pg Mean Corpuscular Hemoglobin Concent 32.9 33.1 32.0-36.0 g/dL Red Cell Distribution Width 16.4 H 16.0 H 11.8-14.3 % Platelet Count 106 L 100 L 140-450 10^3/uL Mean Platelet Volume 8.6 8.1 6.9-10.8 fL Neutrophils (%) (Auto) 87.8 H 88.1 H 37.0-80.0 % Lymphocytes (%) (Auto) 4.9 L 5.2 L 10.0-50.0 % Monocytes (%) (Auto) 7.3 6.6 0.0-12.0 % Eosinophils (%) (Auto) 0.0 0.0 0.0-7.0 % Basophils (%) (Auto) 0.0 0.1 0.0-2.0 % Neutrophils # (Auto) 2.6 2.3 1.6-8.6 10 ^3/uL Lymphocytes # (Auto) 0.1 L 0.1 L 0.4-5.4 10 ^3/uL Monocytes # (Auto) 0.2 0.2 0-1.3 10 ^3/uL Eosinophils # (Auto) 0 0 0-0.8 10 ^3/uL Basophils # (Auto) 0 0 0-0.2 10 ^3/uL Nucleated Red Blood Cells 0.1 0.1 % Sodium Level 141 136-145 mmol/L Potassium Level 3.9 3.5-5.1 mmol/L Chloride Level 105 98-107 mmol/L Carbon Dioxide Level 32 H 20-31 mmol/L Anion Gap 4 L 5-15 Blood Urea Nitrogen 14 9-23 mg/dL Creatinine 0.43 L 0.50 L 0.550-1.02 mg/dL Glomerular Filtration Rate Calc 115 111 >90 mL/min BUN/Creatinine Ratio 32.6 H 10.0-20.0 Serum Glucose 152 H 74-106 mg/dL Calcium Level 9.5 8.7-10.4 mg/dL Vancomycin Level Trough 7.5 5-10 ug/mL Blood Gas Specimen Type Arterial Blood Gas Sample Site Left radial Blood Gas Patient Temperature 37.0 Arterial Blood Date Drawn [id number] Arterial Blood pH 7.401 7.350-7.450 Arterial Blood Partial Pressure CO2 50.3 H 32.0-45.0 mmHg Arterial Blood Partial Pressure O2 72.6 L 83.0-108.0 mmHg Arterial Blood HCO3 30.5 H 21.0-28.0 mmol/L Arterial Blood Oxygen Saturation 94.1 94.0-98.0 % Arterial Blood Base Excess 4.8 H -2.0-3.0 mmol/L Arterial Blood Oxyhemoglobin 92.8 L 94.0-98.0 % Arterial Blood Carboxyhemoglobin 0.9 0.5-1.5 % Arterial Blood Methemoglobin 0.5 0.0-1.5 % Clay Test Modified Blood Gas Total Hemoglobin 12.30 12.0-16.0 g/dL Blood Gas Set Respiration Rate 18.0 Blood Gas Modality Vent - ac FiO2 % 40.0 Blood Gas Tidal Volume 450.0 Blood Gas PEEP or CPAP 5.0 Test 09/14/24 15:37 09/14/24 12:44 09/14/24 11:43 09/14/24 02:00 Range/Units Lactic Acid Level 1.1 0.4-2.0 mmol/L Blood Gas Specimen Type Arterial Arterial Blood Gas Sample Site Right radial Left radial Blood Gas Patient Temperature 37.0 37.0 Arterial Blood Date Drawn 0048 Arterial Blood pH 7.347 L 7.279 L 7.350-7.450 Arterial Blood Partial Pressure CO2 57.0 H 68.3 *H 32.0-45.0 mmHg Arterial Blood Partial Pressure O2 397.6 *H 70.1 L 83.0-108.0 mmHg Arterial Blood HCO3 30.6 H 31.3 H 21.0-28.0 mmol/L Arterial Blood Oxygen Saturation 99.6 H 92.4 L 94.0-98.0 % Arterial Blood Base Excess 3.5 H 2.6 -2.0-3.0 mmol/L Arterial Blood Oxyhemoglobin 98.3 H 90.1 L 94.0-98.0 % Arterial Blood Carboxyhemoglobin 0.8 1.9 H 0.5-1.5 % Arterial Blood Methemoglobin 0.5 0.6 0.0-1.5 % Clay Test Modified Yes Blood Gas Total Hemoglobin 13.50 13.80 12.0-16.0 g/dL Blood Gas Set Respiration Rate 18.0 16.0 Blood Gas Modality Vent - ac Mask - bipap FiO2 % 100.0 35.0 Blood Gas Tidal Volume 450.0 Blood Gas PEEP or CPAP 5.0 Blood Gas Critical Value Read Back Yes yes Blood Gas Notified Whom ivan Hart md, m. md Blood Gas Notified Time [id number] Blood Gas Notified By [employer] White Blood Count 6.0 4.4-10.8 10^3/uL Red Blood Count 4.18 4.0-5.20 10^6/uL Hemoglobin 12.7 12.2-16.2 g/dL Hematocrit 38.8 36.0-46.0 % Mean Corpuscular Volume 92.9 80.0-100.0 fL Mean Corpuscular Hemoglobin 30.5 28.0-32.0 pg Mean Corpuscular Hemoglobin Concent 32.9 32.0-36.0 g/dL Red Cell Distribution Width 16.1 H 11.8-14.3 % Platelet Count 134 L 140-450 10^3/uL Mean Platelet Volume 8.5 6.9-10.8 fL Neutrophils (%) (Auto) 80.7 H 37.0-80.0 % Lymphocytes (%) (Auto) 3.4 L 10.0-50.0 % Monocytes (%) (Auto) 15.8 H 0.0-12.0 % Eosinophils (%) (Auto) 0.0 0.0-7.0 % Basophils (%) (Auto) 0.1 0.0-2.0 % Neutrophils # (Auto) 4.8 1.6-8.6 10 ^3/uL Lymphocytes # (Auto) 0.2 L 0.4-5.4 10 ^3/uL Monocytes # (Auto) 0.9 0-1.3 10 ^3/uL Eosinophils # (Auto) 0 0-0.8 10 ^3/uL Basophils # (Auto) 0 0-0.2 10 ^3/uL Nucleated Red Blood Cells 0.1 % Sodium Level 138 136-145 mmol/L Potassium Level 4.5 3.5-5.1 mmol/L Chloride Level 101 98-107 mmol/L Carbon Dioxide Level 33 H 20-31 mmol/L Anion Gap 4 L 5-15 Blood Urea Nitrogen 15 9-23 mg/dL Creatinine 0.66 0.550-1.02 mg/dL Glomerular Filtration Rate Calc 104 >90 mL/min BUN/Creatinine Ratio 22.7 H 10.0-20.0 Serum Glucose 118 H 74-106 mg/dL Calcium Level 9.2 8.7-10.4 mg/dL Total Bilirubin 0.5 0.2-1.0 mg/dL Aspartate Amino Transferase (AST) 17 13-40 U/L Alanine Aminotransferase (ALT) 17 7-40 U/L Alkaline Phosphatase 72 46-116 U/L Total Protein 5.5 L 5.7-8.2 g/dL Albumin 3.9 3.2-4.8 g/dL Plasma/Serum Blood Alcohol < 3.0 <10 mg/dL Blood Gas EPAP 6 Blood Gas IPAP 16 Specimen Drawn By Theresa [employer] Test 09/13/24 23:48 09/13/24 23:25 09/13/24 21:28 09/13/24 21:11 Range/Units Urine Color Yellow Yellow Urine Clarity Clear Clear Urine pH 6.0 5.0-9.0 Urine Specific [place] 1.018 1.001-1.035 Urine Protein 1+ H Negative Urine Ketones 1+ H Negative Urine Blood Negative Negative /uL Urine Nitrite Negative Negative Urine Bilirubin Negative Negative Urine Urobilinogen Normal Negative mg/dL Urine Leukocyte Esterase Negative Negative /uL Urine RBC 2 0 - 4 /hpf Urine WBC 4 0 - 5 /hpf Urine Squamous Epithelial Cells Few <5 /hpf Urine Bacteria None seen None Seen /hpf Urine Hyaline Casts Few 0 - 2 /lpf Urine Glucose Normal Normal mg/dL Urine Opiates Screen Neg NEGATIVE Urine Fentanyl Screen Neg NEGATIVE Urine Barbiturates Screen Neg NEGATIVE Urine Phencyclidine Screen Neg NEGATIVE Urine Amphetamines Screen Neg NEGATIVE Urine Benzodiazepines Screen Neg NEGATIVE Urine Cocaine Screen Neg NEGATIVE Urine Cannabinoids Screen Neg NEGATIVE Troponin I High Sensitivity 136 *H 58 *H </=34 ng/L Blood Gas Specimen Type Arterial Blood Gas Sample Site Left radial Blood Gas Patient Temperature 37.0 Arterial Blood Date Drawn [id number] Arterial Blood pH 7.263 L 7.350-7.450 Arterial Blood Partial Pressure CO2 65.2 *H 32.0-45.0 mmHg Arterial Blood Partial Pressure O2 70.2 L 83.0-108.0 mmHg Arterial Blood HCO3 28.8 H 21.0-28.0 mmol/L Arterial Blood Oxygen Saturation 91.8 L 94.0-98.0 % Arterial Blood Base Excess 0.2 -2.0-3.0 mmol/L Arterial Blood Oxyhemoglobin 89.4 L 94.0-98.0 % Arterial Blood Carboxyhemoglobin 2.1 H 0.5-1.5 % Arterial Blood Methemoglobin 0.5 0.0-1.5 % Clay Test Yes Blood Gas Total Hemoglobin 13.60 12.0-16.0 g/dL Blood Gas Set Respiration Rate 16.0 Blood Gas Modality Mask - bipap FiO2 % 35.0 Blood Gas EPAP 6 Blood Gas IPAP 16 Specimen Drawn By Theresa hoover r[employer] Blood Gas Critical Value Read Back yes Blood Gas Notified Whom ant Castro md Blood Gas Notified Time [id number] Blood Gas Notified By Theresa [employer] Test 09/13/24 20:20 09/13/24 20:02 09/13/24 19:56 Range/Units Influenza Type A Antigen Negative Negative Influenza Type B Antigen Negative Negative SARS-CoV-2 Antigen (Rapid) Negative NEGATIVE Blood Gas Specimen Type Venous Blood Gas Sample Site Vbg - n/a Blood Gas Patient Temperature 37.0 Arterial Blood Date Drawn Clay Test N/a Venous Blood pH 7.217 L 7.320-7.430 Venous Blood pCO2 at Patient Temp 79.3 *H 38.0-54.0 mmHg Venous Blood pO2 at Patient Temp 87.4 H 23.0-48.0 mmHg Venous Blood HCO3 31.5 H 22.0-29.0 mmol/L Venous Bld O2 Saturation (Measured) 94.9 H 60.0-85.0 % Venous Blood Base Excess 1.3 -2.0-3.0 mmol/L Venous Blood Total Hemoglobin 14.2 12.0-16.0 g/dL Venous Blood Oxyhemoglobin 92.1 H 0.0-79.0 % Venous Blood Carboxyhemoglobin 2.4 H 0.5-1.5 % Venous Blood Methemoglobin 0.6 0.0-1.5 % Blood Gas Liter Flow 3.00 Blood Gas Modality Nasal cannula FiO2 % 32.0 Specimen Drawn By Theresa [employer] Blood Gas Critical Value Read Back yes Blood Gas Notified Whom ant Castro md Blood Gas Notified Time [id number] Blood Gas Notified By Theresa [employer] White Blood Count 6.6 4.4-10.8 10^3/uL Red Blood Count 4.33 4.0-5.20 10^6/uL Hemoglobin 13.3 12.2-16.2 g/dL Hematocrit 40.8 36.0-46.0 % Mean Corpuscular Volume 94.3 80.0-100.0 fL Mean Corpuscular Hemoglobin 30.7 28.0-32.0 pg Mean Corpuscular Hemoglobin Concent 32.6 32.0-36.0 g/dL Red Cell Distribution Width 16.6 H 11.8-14.3 % Platelet Count 158 140-450 10^3/uL Mean Platelet Volume 7.8 6.9-10.8 fL Neutrophils (%) (Auto) 91.1 H 37.0-80.0 % Lymphocytes (%) (Auto) 2.8 L 10.0-50.0 % Monocytes (%) (Auto) 6.0 0.0-12.0 % Eosinophils (%) (Auto) 0.0 0.0-7.0 % Basophils (%) (Auto) 0.1 0.0-2.0 % Neutrophils # (Auto) 6.0 1.6-8.6 10 ^3/uL Lymphocytes # (Auto) 0.2 L 0.4-5.4 10 ^3/uL Monocytes # (Auto) 0.4 0-1.3 10 ^3/uL Eosinophils # (Auto) 0 0-0.8 10 ^3/uL Basophils # (Auto) 0 0-0.2 10 ^3/uL Nucleated Red Blood Cells 0.0 % Sodium Level 136 136-145 mmol/L Potassium Level 5.1 3.5-5.1 mmol/L Chloride Level 100 98-107 mmol/L Carbon Dioxide Level 30 20-31 mmol/L Anion Gap 6 5-15 Blood Urea Nitrogen 12 9-23 mg/dL Creatinine 0.79 0.550-1.02 mg/dL Glomerular Filtration Rate Calc 88 >90 mL/min BUN/Creatinine Ratio 15.2 10.0-20.0 Serum Glucose 130 H 74-106 mg/dL Hemoglobin A1c 5.6 <5.7 % A1C Lactic Acid Level 1.3 0.4-2.0 mmol/L Calcium Level 9.4 8.7-10.4 mg/dL Magnesium Level 1.7 1.6-2.6 mg/dL Total Bilirubin 0.4 0.2-1.0 mg/dL Aspartate Amino Transferase (AST) 19 13-40 U/L Alanine Aminotransferase (ALT) 20 7-40 U/L Alkaline Phosphatase 88 46-116 U/L Troponin I High Sensitivity 23 </=34 ng/L B-Type Natriuretic Peptide 128.53 0-100 pg/mL Total Protein 6.2 5.7-8.2 g/dL Albumin 4.4 3.2-4.8 g/dL Microbiology Date/Time Source Procedure Growth Status 09/15/24 21:15 Nose MRSA Screen - Final Methicillin Resistant S.aureus Complete 09/15/24 02:00 Sputum Expectorated Sputum Gram Stain - Final Complete 09/15/24 02:00 Respiratory Culture - Final Methicillin Resistant S.aureus Complete 09/13/24 21:11 Blood Blood Culture - Final NO GROWTH AFTER 5 DAYS OF INCUBATION. Complete Assessment Hypernatremia Polyuria possible diabetes insipidus Status post extubation hypoxic respiratory failure Recommendations DDAVP as ordered Increase IV fluid rate to match urine volumes We will follow closely Plan discussed with: Other PAT TAM MD Sep 23, 2024 18:22
--- NOTE | 2024-09-23 21:42 | DVHPN2 ---
Progress Note - Dictate Date Seen: Sep 23, 2024 Has the PT tested + for MRSA If YES, has PT been informed?: No Medical Necessity Reason Pt with a Central, PICC or Fol: Yes The following are medically ne: Jones Catheter Reason for jones catheter: Strict I&O, Total Immobilization Subjective Patient seen and examined at bedside. Remains on supplemental oxygen Overnight events reviewed. vital signs Vital Sign Date Time Temp Pulse Resp B/P (MAP) Pulse Ox O2 Delivery O2 Flow Rate FiO2 09/23/24 18:41 95 16 100 09/23/24 18:35 Nasal Cannula* 4 36 09/23/24 17:00 133/74 (93) 09/23/24 16:00 98.4 98.4 Total Intake and Output 09/22/24 09/22/24 09/23/24 15:00 23:00 07:00 Intake Total 1028 ml 1437 ml 1265 ml Output Total 4050 ml 4750 ml Balance 1028 ml -2613 ml -3485 ml medications Current Medications Medications Dose Ordered Sig/Elaine Route Start Time Stop Time Status Last Admin Dose Admin Albuterol 2.5 mg Q4HR NEB 09/14/24 02:00 09/23/24 18:35 2.5 MG Ipratropium [place] 0.5 mg Q4HR NEB 09/14/24 02:00 09/23/24 18:35 0.5 MG Pantoprazole Sodium 40 mg DAILY IV 09/14/24 10:00 09/23/24 09:51 40 MG Enoxaparin Sodium 40 mg DAILY SC 09/14/24 10:00 09/23/24 09:52 40 MG Diagnostic Test (Pha) 1 strip Q6HR 09/18/24 00:00 09/23/24 18:48 1 STRIP Insulin Human Regular FOLLOW SLIDING SCALE Q6HR SC 09/18/24 00:00 09/21/24 18:00 2 UNITS Dextrose 50 ml UD IV 09/18/24 00:00 Lorazepam 1 mg Q4HP PRN IV 09/20/24 13:30 09/23/24 16:20 1 MG Olanzapine 20 mg DAILY PO 09/21/24 10:00 09/23/24 09:52 20 MG Acetaminophen 650 mg Q6HPRN PRN GT 09/20/24 23:15 09/22/24 06:41 650 MG Prednisone 40 mg DAILY PO 09/22/24 10:00 09/23/24 09:52 40 MG Desmopressin Acetate 1 mcg BID IV 09/23/24 12:45 09/23/24 14:11 1 MCG Dextrose 1,000 ml @ 100 mls/hr Q10H IV 09/23/24 12:00 09/23/24 12:00 100 MLS/HR objective Gen.: Patient lying in bed in no apparent distress. On supplemental oxygen. Head: Normocephalic, atraumatic. Eyes: EOMI/PERRLA. Ears: Normal hearing. Normal anatomy. Neck/trachea: Trachea midline, supple. Nose: Normal external anatomy. Mouth: Moist mucous membranes. Chest: Decreased air entry bilaterally. No wheezing or rhonchi. Cardiovascular: Positive S1, positive S2. Regular rate and rhythm. Abdomen: Positive bowel sounds in all 4 quadrants. Soft, non-tender, non- distended. : Deferred. Rectal: Deferred. Skin: Warm, dry. Intact. Extremities: 2+ radial pulses bilaterally. No lower extremity edema. Neuro: Awake, alert, oriented x3. No gross motor or sensory deficits. Cranial nerves II through XII intact. Gait not assessed. laboratory and microbiology Laboratory Tests 09/23/24 03:09 Test 09/23/24 21:04 Range/Units Serum Glucose Pending Assessment/Plan Impression: Acute hypoxic respiratory failure Acute hypercarbic respiratory failure AE COPD Pneumonia Lung scarring Events: Patient transitioned from high-flow O2 Currently on 4 LPM NC Continue to taper as tolerated Continue abx - vancomycin Continue bronchodilators Steroids - Prednisone PO IV fluids with LR Clinimix for nutritional support. K, phos supplementation Monitor renal function Monitor electrolytes. Supplement as necessary. Anxiolytic. HOB elevation Aspiration precautions Patient is stable for downgrade from the pulmonary standpoint. Labs and imaging reviewed Rest of plan as outlined below. Plan: S/p extubation on 09/21/24 Patient transitioned from high-flow O2 Currently on 4 LPM NC Titrate to keep sats between 88-94% BiPAP at night Off sedation Continue bronchodilators. Continue antibiotics. F/u cultures. Pressors if necessary for hemodynamic support Titrate to keep mean arterial pressure greater than 65 mmHg. Monitor renal function Monitor electrolytes. Supplement as necessary. Monitor ins and outs. Maintain euvolemia. GI prophylaxis. DVT prophylaxis. Prognosis: Poor given patient's multiple co-morbidities. Condition: Critical Rest of plan per hospitalist and other consultants. A total of 35 minutes of critical care time was spent reviewing the patient record, examining the patient, making a diagnostic and therapeutic plan, discussing this plan with the medical personnel, following up on diagnostic studies and following the patient for clinical stability excluding any and all procedures. At least 50% of this time was spent in direct, [id number] contact. Thank you, Dr. Segundo, for allowing me to participate in this patient's care. Further recommendations will depend on the patient's clinical course. Please do not hesitate to contact me if you have any questions or concerns. This medical document was created using an electronic medical record system with [employer] computerized dictation system. Although these documentations are being carefully reviewed, there may still be some phonetic and typographical changes. The errors are purely typographical, due to imperfection on the software program, and do not reflect any compromise in the patient's medical care. Dietary Evaluation Review Comments: 1) Continue to monitor pt PO intake to meet at least 75% of meals 2) Continue current plan of care Expected Outcomes/Goals: F/U in 3-5 days Plan discussed with: Other (SIL Flowers) Critical Care Time(min): 35 BRITANY MEDRANO MD Sep 23, 2024 21:42
[2024-09-23 21:47] LABS: Anion Gap 1 (5-15); Chloride 99 mmol/L (98-107); Sodium 139 mmol/L (136-145)
[2024-09-23 21:48] LABS: Calcium 9.6 mg/dL (8.7-10.4)
[2024-09-23 21:53] LABS: BUN/Creatinine Ratio 17.8 (10.0-20.0)
[2024-09-23 21:57] LABS: Blood Urea Nitrogen 8 mg/dL (9-23); Carbon Dioxide 39 mmol/L (20-31); Glucose 124 mg/dL (74-106)
[2024-09-24] VITALS (22 sets, daily range): BP systolic 124–140; BP diastolic 70–102; PULSE 78–102; RESP 14–24; TEMP 97.2–98.1; O2SAT 94–100
[2024-09-24 07:43] LABS: Anion Gap 3 (5-15)
[2024-09-24 07:45] LABS: Basophils # (auto) 0 10 ^3/uL (0-0.2); Eosinophils # (auto) 0.2 10 ^3/uL (0-0.8); Eosinophils % (auto) 2.6 % (0.0-7.0); Hematocrit 37.5 % (36.0-46.0); Hemoglobin 12.5 g/dL (12.2-16.2); Lymphocytes # (auto) 1.2 10 ^3/uL (0.4-5.4); Lymphocytes % (auto) 15.9 % (10.0-50.0); Mean Corpuscular Hemoglobin 30.3 pg (28.0-32.0); Mean Corpuscular Hgb Conc. 33.3 g/dL (32.0-36.0); Monocytes # (auto) 0.6 10 ^3/uL (0-1.3); Monocytes % (auto) 7.5 % (0.0-12.0); Neutrophils # (auto) 5.6 10 ^3/uL (1.6-8.6); Nucleated Red Blood Cells % 0.1 %; Platelet Count (auto) 142 10^3/uL (140-450); Red Blood Cells 4.13 10^6/uL (4.0-5.20); Red Cell Distribution Width 15.4 % (11.8-14.3); White Blood Cell 7.6 10^3/uL (4.4-10.8)
[2024-09-24 07:51] LABS: Blood Urea Nitrogen 9 mg/dL (9-23); Carbon Dioxide 36 mmol/L (20-31); Chloride 95 mmol/L (98-107); Glucose 116 mg/dL (74-106); Potassium 3.3 mmol/L (3.5-5.1); Sodium 134 mmol/L (136-145)
--- NOTE | 2024-09-24 08:44 | DVHPNRES ---
Progress Note Date Seen: Sep 24, 2024 Resident Creating Document: SVETLANA BROOKS RESIDENT Has the PT tested + for MRSA If YES, has PT been informed?: No Medical Necessity Reason Pt with a Central, PICC or Fol: Yes The following are medically ne: Jones Catheter Reason for jones catheter: Strict I&O, Total Immobilization Objective vital signs Vital Sign Date Time Temp Pulse Resp B/P (MAP) Pulse Ox O2 Delivery O2 Flow Rate FiO2 09/24/24 05:59 91 18 100 09/24/24 05:48 Nasal Cannula* 3 32 09/24/24 04:45 97.5 140/76 (97) 97.5 Total Intake and Output 09/23/24 09/23/24 09/24/24 15:00 23:00 07:00 Intake Total 912.00 ml 320 ml 50 ml Output Total 2300 ml 3150 ml 850 ml Balance -1388.00 ml -2830 ml -800 ml medications Current Medications Medications Dose Ordered Sig/Elaine Route Start Time Stop Time Status Last Admin Dose Admin Albuterol 2.5 mg Q4HR NEB 09/14/24 02:00 09/24/24 05:48 2.5 MG Ipratropium [place] 0.5 mg Q4HR NEB 09/14/24 02:00 09/24/24 05:48 0.5 MG Pantoprazole Sodium 40 mg DAILY IV 09/14/24 10:00 09/23/24 09:51 40 MG Enoxaparin Sodium 40 mg DAILY SC 09/14/24 10:00 09/23/24 09:52 40 MG Diagnostic Test (Pha) 1 strip Q6HR 09/18/24 00:00 09/24/24 06:02 1 STRIP Insulin Human Regular FOLLOW SLIDING SCALE Q6HR SC 09/18/24 00:00 09/21/24 18:00 2 UNITS Dextrose 50 ml UD IV 09/18/24 00:00 Lorazepam 1 mg Q4HP PRN IV 09/20/24 13:30 09/23/24 16:20 1 MG Olanzapine 20 mg DAILY PO 09/21/24 10:00 09/23/24 09:52 20 MG Acetaminophen 650 mg Q6HPRN PRN GT 09/20/24 23:15 09/22/24 06:41 650 MG Prednisone 40 mg DAILY PO 09/22/24 10:00 09/23/24 09:52 40 MG Desmopressin Acetate 1 mcg BID IV 09/23/24 12:45 09/23/24 23:27 1 MCG Dextrose 1,000 ml @ 100 mls/hr Q10H IV 09/23/24 12:00 09/23/24 22:07 100 MLS/HR Examination GENERAL:Normal (Awake RASS+1, Off of vent), HEENT:Normal (Central venous catheter intact,), NECK:Normal, LUNGS:Normal (Bilateral clear, on 3-4 L nasal cannula oxygen) shallow rapid breathing, CVS:Normal (Unchanged sinus rhythm), ABDOMEN:Normal (BS positive, no distention or rigidity.), MSK:Normal (Can not assess strength, unchanged muscle mass, grossly no pitting edema/injury noted.), SKIN:Normal, NEURO:Normal ( mild anxiety, awake), :Normal (foleys) laboratory and microbiology Laboratory Tests 09/24/24 06:43 Test 09/24/24 06:43 Range/Units Serum Glucose 116 H 74-106 mg/dL Microbiology Date/Time Source Procedure Growth Status 09/15/24 21:15 Nose MRSA Screen - Final Methicillin Resistant S.aureus Complete 09/15/24 02:00 Sputum Expectorated Sputum Gram Stain - Final Complete 09/15/24 02:00 Respiratory Culture - Final Methicillin Resistant S.aureus Complete 09/13/24 21:11 Blood Blood Culture - Final NO GROWTH AFTER 5 DAYS OF INCUBATION. Complete Labs and/or images reviewed: Labs reviewed by me, Image(s) reviewed by me Problem List/Assessment/Plan Problem List/Assessment/Plan ICU Course: Ms. White, 54-year-old female with a history of COPD on home oxygen (2-4 L), schizophrenia, and hypertension was brought to the ED with shortness of breath and cough for one day. She was found cyanotic and struggling to breathe [facility], with SpO2 in the mid/low 80s. En route, she received a DuoNeb treatment and 8 L of oxygen via nasal cannula. She denies fever, flu-like symptoms, chest pain, dizziness, diaphoresis, abdominal pain, nausea, vomiting, or changes in bowel and bladder movements. At presentation patient was found to have a hypoxic and hypercapnic respiratory failure on BiPAP it worsened with more of CO2 retention with worsening respiratory acidosis needing intubation at ED. patient was also found to have possible infection with aspiration pneumonia and presented in sepsis. Septic shock was treated with IV fluid and Levophed. Patient improved significantly overnight. Patient remains hemodynamically stable, home health arranged for continued physical therapy. Patient can be taken off of all catheters before discharge. Chronic [facility] resident [facility]: PT evaluation appreciated disposition to [facility] with home health PT on discharge. Medical Condition Treated in Hospital: # schizophrenia: Continue olanzapine 20mg daily check for EKG for QTC unremarkable, consider instead of home halodol at discharge. # insomnia: Trazodone 75 mg at night, sertraline 100 mg continue # anxiety disorder: as needed Ativan, continue, sertraline as above # NSTEMI type 2 secondary to above, resolved. # Probable anteroseptal infarct, old # Nonspecific T abnormalities inferior leads, troponin -ve # Left posterior fascicular block, Echo repeated normal. # Acute exacerbation of chronic COPD needing intubation and sedation. # Acute on chronic respiratory failure due to COPD exacerbation: Status post extubation oxygen. # vent care and successful CPAP trial with the help of pulmonology. # Community-acquired Gram-positive MRSA pneumonia status post vancomycin IV # Oropharyngeal swelling, resolved # nasal MRSA swab positive, mupirocin ointment x5 days # GERD/GI prophylaxis on Protonix # on foleys passing urine, consider trial of micturition voiding without Jones's # sepsis secondary to above status post septic protocol with broad-spectrum antibiotic and IV fluid pain # Leukopenia likely due to sepsis improved. # mild thrombocytopenia, recovering no active bleeding noted # Mixed acid-base disorder, resolved: Primary Metabolic Acidosis With Secondary Respiratory Acidosis And Additional Metabolic Alkalosis Likely Due To Contraction Alkalosis, resolving. 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 Avoid over- correction to avoid devastating neurological damages with cerebral edema/central pontine myelinolysis. Follow up: Follow up with primary care physician, jewel waxer, neurologist as needed. Twice a week of BMP result recent to primary care and jewel waxer. Medications at discharge: Stop Haldol, continue 20 mg daily of olanzapine, other medications as needed, nebulizers to continue and daily 20 IU nasal desmopressin. Discharge disposition: [facility] health arrangement as per social work to have continued physical therapy. The plan was discussed with Dr. Connolly. Discharge discussion needed total 39 minutes. Plan discussed with: Patient, Other My Orders My Orders Orders - SVETLANA BROOKS RESIDENT Procedure Category Date Status Time *Dr. Kael Pitt CONS 09/23/24 Transmitted -[facility] 10:52 Vancomycin,Trough LAB 09/24/24 Logged 13:00 Vancomycin Per AMINATA 09/24/24 In Process Pharmacy [facility] 14:00 Creatinine LAB 09/24/24 Logged 13:00 Communication Order ORDERS 09/24/24 Transmitted 08:39 Potassium Chloride PHA 09/24/24 Logged (Potassium Chloride). 08:45 Dietary Evaluation Review Comments: 1) Continue to monitor pt PO intake to meet at least 75% of meals 2) Continue current plan of care Expected Outcomes/Goals: F/U in 3-5 days Date of Service: Sep 24, 2024 Billing Provider: CHRISTAL ABRAHAM MD Common Visit Codes: [id number] INP/OBS CARE(HIGH) SVETLANA BROOKS RESIDENT Sep 24, 2024 08:44 CHRISTAL ABRAHAM MD Sep 28, 2024 11:29
[2024-09-24] MEDS: DESMOPRESSIN ACET 4 MCG/1 ML AMPULE IV SCH (11:31)
[2024-09-24] MEDS: SODIUM CHLORIDE 0.9% 1,000 ML IV SCH (11:32)
[2024-09-24] MEDS: POTASSIUM CHLORIDE 20 MEQ, LIDOCAINE 1% (LOCAL ANESTH.) 2 ML in SODIUM CHL 0.9% 100 ML IV ONE (11:50)
--- NOTE | 2024-09-24 12:30 | DVHPN2 ---
Progress Note Date Seen: Sep 24, 2024 Has the PT tested + for MRSA If YES, has PT been informed?: No Medical Necessity Reason Pt with a Central, PICC or Fol: Yes The following are medically ne: Jones Catheter Reason for jones catheter: Strict I&O, Total Immobilization Subjective Patient reports: No new complaints Review of Systems: Deferred Objective vital signs Vital Sign Date Time Temp Pulse Resp B/P (MAP) Pulse Ox O2 Delivery O2 Flow Rate FiO2 09/24/24 10:18 90 18 100 09/24/24 10:15 Nasal Cannula 2.0 09/24/24 10:15 28 09/24/24 08:54 97.5 135/70 (91) 97.5 Total Intake and Output 09/23/24 09/23/24 09/24/24 15:00 23:00 07:00 Intake Total 912.00 ml 320 ml 50 ml Output Total 2300 ml 3150 ml 850 ml Balance -1388.00 ml -2830 ml -800 ml medications Current Medications Medications Dose Ordered Sig/Elaine Route Start Time Stop Time Status Last Admin Dose Admin Albuterol 2.5 mg Q4HR NEB 09/14/24 02:00 09/24/24 10:09 2.5 MG Ipratropium [place] 0.5 mg Q4HR NEB 09/14/24 02:00 09/24/24 10:09 0.5 MG Pantoprazole Sodium 40 mg DAILY IV 09/14/24 10:00 09/24/24 09:46 40 MG Enoxaparin Sodium 40 mg DAILY SC 09/14/24 10:00 09/24/24 09:46 40 MG Diagnostic Test (Pha) 1 strip Q6HR 09/18/24 00:00 09/24/24 06:02 1 STRIP Insulin Human Regular FOLLOW SLIDING SCALE Q6HR SC 09/18/24 00:00 09/21/24 18:00 2 UNITS Dextrose 50 ml UD IV 09/18/24 00:00 Lorazepam 1 mg Q4HP PRN IV 09/20/24 13:30 09/23/24 16:20 1 MG Olanzapine 20 mg DAILY PO 09/21/24 10:00 09/24/24 09:47 20 MG Acetaminophen 650 mg Q6HPRN PRN GT 09/20/24 23:15 09/22/24 06:41 650 MG Prednisone 40 mg DAILY PO 09/22/24 10:00 09/24/24 09:47 40 MG Sodium Chloride 1,000 ml @ 100 mls/hr Q10H IV 09/24/24 10:15 09/24/24 11:32 100 MLS/HR Desmopressin Acetate 1 mcg BID IV 09/24/24 10:15 09/24/24 11:31 1 MCG Examination: GENERAL:Normal, HEENT:Normal, LUNGS:Abnormal, MSK:Abnormal laboratory and microbiology Laboratory Tests 09/24/24 06:43 Test 09/24/24 06:43 Range/Units Serum Glucose 116 H 74-106 mg/dL Microbiology Date/Time Source Procedure Growth Status 09/15/24 21:15 Nose MRSA Screen - Final Methicillin Resistant S.aureus Complete 09/15/24 02:00 Sputum Expectorated Sputum Gram Stain - Final Complete 09/15/24 02:00 Respiratory Culture - Final Methicillin Resistant S.aureus Complete 09/13/24 21:11 Blood Blood Culture - Final NO GROWTH AFTER 5 DAYS OF INCUBATION. Complete Problem List/Assessment/Plan Problem List/Assessment/Plan Hypernatremia Polyuria possible diabetes insipidus Status post extubation hypoxic respiratory failure MRSA pna Recommendations DDAVP as ordered NS iv to match urine volumes We will follow closely abx Plan discussed with: Patient My Orders My Orders Orders - PAT TAM MD Procedure Category Date Status Time Sodium Chloride 0.9% PHA 09/24/24 In Process 10:15 Desmopressin PHA 09/24/24 In Process Injection (Ddavp 10:15 Dietary Evaluation Review Comments: 1) Continue to monitor pt PO intake to meet at least 75% of meals 2) Continue current plan of care Expected Outcomes/Goals: F/U in 3-5 days PAT TAM MD Sep 24, 2024 12:30
--- NOTE | 2024-09-24 22:51 | DVHPN2 ---
Progress Note - Dictate Date Seen: Sep 24, 2024 Has the PT tested + for MRSA If YES, has PT been informed?: No Medical Necessity Reason Pt with a Central, PICC or Fol: Yes The following are medically ne: Jones Catheter Reason for jones catheter: Strict I&O, Total Immobilization Subjective Patient seen and examined at bedside. Remains on supplemental oxygen Overnight events reviewed. vital signs Vital Sign Date Time Temp Pulse Resp B/P (MAP) Pulse Ox O2 Delivery O2 Flow Rate FiO2 09/24/24 22:00 88 18 100 09/24/24 21:00 97.7 132/84 (100) 97.7 09/24/24 18:41 Nasal Cannula* 3 32 Total Intake and Output 09/23/24 09/23/24 09/24/24 15:00 23:00 07:00 Intake Total 912.00 ml 320 ml 50 ml Output Total 2300 ml 3150 ml 850 ml Balance -1388.00 ml -2830 ml -800 ml medications Current Medications Medications Dose Ordered Sig/Elaine Route Start Time Stop Time Status Last Admin Dose Admin Albuterol 2.5 mg Q4HR NEB 09/14/24 02:00 09/24/24 22:00 2.5 MG Ipratropium [place] 0.5 mg Q4HR NEB 09/14/24 02:00 09/24/24 22:00 0.5 MG Pantoprazole Sodium 40 mg DAILY IV 09/14/24 10:00 09/24/24 09:46 40 MG Enoxaparin Sodium 40 mg DAILY SC 09/14/24 10:00 09/24/24 09:46 40 MG Diagnostic Test (Pha) 1 strip Q6HR 09/18/24 00:00 09/24/24 17:34 1 STRIP Insulin Human Regular FOLLOW SLIDING SCALE Q6HR SC 09/18/24 00:00 09/24/24 17:34 2 UNITS Dextrose 50 ml UD IV 09/18/24 00:00 Lorazepam 1 mg Q4HP PRN IV 09/20/24 13:30 09/24/24 21:46 1 MG Olanzapine 20 mg DAILY PO 09/21/24 10:00 09/24/24 09:47 20 MG Acetaminophen 650 mg Q6HPRN PRN GT 09/20/24 23:15 09/22/24 06:41 650 MG Prednisone 40 mg DAILY PO 09/22/24 10:00 09/24/24 09:47 40 MG Sodium Chloride 1,000 ml @ 100 mls/hr Q10H IV 09/24/24 10:15 09/24/24 21:33 100 MLS/HR Desmopressin Acetate 1 mcg BID IV 09/24/24 10:15 09/24/24 21:33 1 MCG objective Gen.: Patient lying in bed in no apparent distress. On supplemental oxygen. Head: Normocephalic, atraumatic. Eyes: EOMI/PERRLA. Ears: Normal hearing. Normal anatomy. Neck/trachea: Trachea midline, supple. Nose: Normal external anatomy. Mouth: Moist mucous membranes. Chest: Decreased air entry bilaterally. No wheezing or rhonchi. Cardiovascular: Positive S1, positive S2. Regular rate and rhythm. Abdomen: Positive bowel sounds in all 4 quadrants. Soft, non-tender, non- distended. : Deferred. Rectal: Deferred. Skin: Warm, dry. Intact. Extremities: 2+ radial pulses bilaterally. No lower extremity edema. Neuro: Awake, alert, oriented x3. No gross motor or sensory deficits. Cranial nerves II through XII intact. Gait not assessed. laboratory and microbiology Laboratory Tests 09/24/24 13:10 09/24/24 06:43 Test 09/24/24 06:43 Range/Units Serum Glucose 116 H 74-106 mg/dL Assessment/Plan Impression: Acute hypoxic respiratory failure Acute hypercarbic respiratory failure AE COPD Pneumonia Lung scarring Events: Remains on supplemental oxygen Currently on 3 LPM NC Continue to taper as tolerated Continue antibiotics Continue bronchodilators Steroids - Prednisone PO Incentive spirometry Clinimix for nutritional support. Pain control Avoid oversedation Labs and imaging reviewed Rest of plan as outlined below. Plan: S/p extubation on 09/21/24 Patient transitioned from high-flow O2 Currently on 3 LPM NC Titrate to keep sats between 88-94% BiPAP at night Off sedation Continue bronchodilators. Continue antibiotics. F/u cultures. Pressors if necessary for hemodynamic support Titrate to keep mean arterial pressure greater than 65 mmHg. HOB elevation Aspiration precautions Monitor renal function Monitor electrolytes. Supplement as necessary. Monitor ins and outs. Maintain euvolemia. GI prophylaxis. DVT prophylaxis. Prognosis: Poor given patient's multiple co-morbidities. Rest of plan per hospitalist and other consultants. Thank you, Dr. Segundo, for allowing me to participate in this patient's care. Further recommendations will depend on the patient's clinical course. Please do not hesitate to contact me if you have any questions or concerns. This medical document was created using an electronic medical record system with [employer] dictation system. Although these documentations are being carefully reviewed, there may still be some phonetic and typographical changes. The errors are purely typographical, due to imperfection on the software program, and do not reflect any compromise in the patient's medical care. Dietary Evaluation Review Comments: 1) Continue to monitor pt PO intake to meet at least 75% of meals 2) Continue current plan of care Expected Outcomes/Goals: F/U in 3-5 days Plan discussed with: Patient, Other (SIL Lopez) BRITANY MEDRANO MD Sep 24, 2024 22:51
[2024-09-25] VITALS (36 sets, daily range): BP systolic 114–172; BP diastolic 61–111; PULSE 64–111; RESP 16–42; TEMP 97.5–98.7; O2SAT 90–100
[2024-09-25] MEDS: DEXTROSE (50%) 50ML SYRG IV SCH (06:16)
--- NOTE | 2024-09-25 08:11 | DVHDSRES ---
Discharge Summary Date of Admission Resident Creating Document: SVETLANA BROOKS RESIDENT Sep 13, 2024 at 22:55 Date of Discharge: Sep 25, 2024 Admitting Diagnosis Acute hypoxic and hypercapnic respiratory failure secondary to COPD exacerbation and community-acquired pneumonia Labs/Diagnostic Data: Laboratory Results Test 09/25/24 00:05 09/24/24 13:10 09/24/24 06:43 09/23/24 16:57 POC Glucose 79 mg/dl (70-106) Creatinine 0.33 mg/dL (0.550-1.02) Glomerular Filtration Rate Calc 122 mL/min (>90) Vancomycin Level Trough 3.3 ug/mL (5-10) White Blood Count 7.6 10^3/uL (4.4-10.8) Red Blood Count 4.13 10^6/uL (4.0-5.20) Hemoglobin 12.5 g/dL (12.2-16.2) Hematocrit 37.5 % (36.0-46.0) Mean Corpuscular Volume 91.0 fL (80.0-100.0) Mean Corpuscular Hemoglobin 30.3 pg (28.0-32.0) Mean Corpuscular Hemoglobin Concent 33.3 g/dL (32.0-36.0) Red Cell Distribution Width 15.4 % (11.8-14.3) Platelet Count 142 10^3/uL (140-450) Mean Platelet Volume 8.0 fL (6.9-10.8) Neutrophils (%) (Auto) 74.0 % (37.0-80.0) Lymphocytes (%) (Auto) 15.9 % (10.0-50.0) Monocytes (%) (Auto) 7.5 % (0.0-12.0) Eosinophils (%) (Auto) 2.6 % (0.0-7.0) Basophils (%) (Auto) 0.0 % (0.0-2.0) Neutrophils # (Auto) 5.6 10 ^3/uL (1.6-8.6) Lymphocytes # (Auto) 1.2 10 ^3/uL (0.4-5.4) Monocytes # (Auto) 0.6 10 ^3/uL (0-1.3) Eosinophils # (Auto) 0.2 10 ^3/uL (0-0.8) Basophils # (Auto) 0 10 ^3/uL (0-0.2) Nucleated Red Blood Cells 0.1 % Sodium Level 134 mmol/L (136-145) Potassium Level 3.3 mmol/L (3.5-5.1) Chloride Level 95 mmol/L (98-107) Carbon Dioxide Level 36 mmol/L (20-31) Anion Gap 3 (5-15) Blood Urea Nitrogen 9 mg/dL (9-23) BUN/Creatinine Ratio 31.0 (10.0-20.0) Serum Glucose 116 mg/dL (74-106) Calcium Level 9.0 mg/dL (8.7-10.4) Blood Gas Specimen Type Arterial Blood Gas Sample Site Right radial Blood Gas Patient Temperature 37.0 Arterial Blood Date Drawn [id number] Arterial Blood pH 7.195 (7.350-7.450) Arterial Blood Partial Pressure CO2 33.4 mmHg (32.0-45.0) Arterial Blood Partial Pressure O2 91.4 mmHg (83.0-108.0) Arterial Blood HCO3 12.6 mmol/L (21.0-28.0) Arterial Blood Oxygen Saturation 94.2 % (94.0-98.0) Arterial Blood Base Excess -14.4 mmol/L (-2.0-3.0) Arterial Blood Oxyhemoglobin 93.8 % (94.0-98.0) Arterial Blood Carboxyhemoglobin 0.1 % (0.5-1.5) Arterial Blood Methemoglobin 0.3 % (0.0-1.5) Clay Test Modified Blood Gas Total Hemoglobin 12.20 g/dL (12.0-16.0) Blood Gas Set Respiration Rate 20.0 Blood Gas Modality Vent - ac Blood Gas Spontaneous Rate 31 FiO2 % 100.0 Blood Gas Tidal Volume 400.0 Blood Gas Inspiratory Pressure 36.0 Blood Gas PEEP or CPAP 8.0 Bl Gas Inspiratory/Expiratory Ratio 1:1.4 Specimen Drawn By [employer] Blood Gas Critical Value Read Back yes Blood Gas Notified Whom aníbal black Blood Gas Notified Time [id number] Blood Gas Notified By Smartsyvalery rt Test 09/23/24 03:09 09/22/24 16:40 09/22/24 16:14 09/22/24 13:35 Phosphorus Level 2.2 mg/dL (2.4-5.1) Magnesium Level 1.7 mg/dL (1.6-2.6) Total Bilirubin 0.5 mg/dL (0.2-1.0) Aspartate Amino Transferase (AST) 13 U/L (13-40) Alanine Aminotransferase (ALT) 18 U/L (7-40) Alkaline Phosphatase 54 U/L (46-116) Total Protein 4.7 g/dL (5.7-8.2) Albumin 3.3 g/dL (3.2-4.8) Blood Gas Spontaneous Tidal Volume 350 Blood Gas EPAP 5 Blood Gas IPAP 12 Urine Osmolality 275 mOsm/kg Urine Creatinine 7.73 mg/dL (30.0-125.0) Urine Protein/Creatinine Ratio 1.24 Urine Sodium 105 mmol/L (40-220) Urine Potassium 6 mmol/L (12-62) Urine Total Protein 9.6 mg/dL (1-14) Body Fluid Urea Nitrogen 130 mg/dL (Not Estab.) Blood Gas Liter Flow 15.00 Test 09/22/24 12:46 09/21/24 08:43 09/21/24 03:02 09/20/24 03:27 Serum Osmolality 306 mOsm/kg (278-298) Blood Gas Pressure Support 8 Triglycerides Level 71 mg/dL (< 150) Random Vancomycin Level 6.9 ug/mL (5-10) Test 09/19/24 03:20 09/14/24 15:37 09/14/24 11:43 09/13/24 23:48 Estimated GFR () 213 mL/min Estimated GFR (Non- 176 mL/min Lactic Acid Level 1.1 mmol/L (0.4-2.0) Plasma/Serum Blood Alcohol < 3.0 mg/dL (<10) Urine Color Yellow (Yellow) Urine Clarity Clear (Clear) Urine pH 6.0 (5.0-9.0) Urine Specific [place] 1.018 (1.001-1.035) Urine Protein 1+ (Negative) Urine Ketones 1+ (Negative) Urine Blood Negative /uL (Negative) Urine Nitrite Negative (Negative) Urine Bilirubin Negative (Negative) Urine Urobilinogen Normal mg/dL (Negative) Urine Leukocyte Esterase Negative /uL (Negative) Urine RBC 2 /hpf (0 - 4) Urine WBC 4 /hpf (0 - 5) Urine Squamous Epithelial Cells Few /hpf (<5) Urine Bacteria None seen /hpf (None Seen) Urine Hyaline Casts Few /lpf (0 - 2) Urine Glucose Normal mg/dL (Normal) Urine Opiates Screen Neg (NEGATIVE) Urine Fentanyl Screen Neg (NEGATIVE) Urine Barbiturates Screen Neg (NEGATIVE) Urine Phencyclidine Screen Neg (NEGATIVE) Urine Amphetamines Screen Neg (NEGATIVE) Urine Benzodiazepines Screen Neg (NEGATIVE) Urine Cocaine Screen Neg (NEGATIVE) Urine Cannabinoids Screen Neg (NEGATIVE) Test 09/13/24 23:25 09/13/24 20:20 09/13/24 20:02 09/13/24 19:56 Troponin I High Sensitivity 136 ng/L (</=34) Influenza Type A Antigen Negative (Negative) Influenza Type B Antigen Negative (Negative) SARS-CoV-2 Antigen (Rapid) Negative (NEGATIVE) Venous Blood pH 7.217 (7.320-7.430) Venous Blood pCO2 at Patient Temp 79.3 mmHg (38.0-54.0) Venous Blood pO2 at Patient Temp 87.4 mmHg (23.0-48.0) Venous Blood HCO3 31.5 mmol/L (22.0-29.0) Venous Bld O2 Saturation (Measured) 94.9 % (60.0-85.0) Venous Blood Base Excess 1.3 mmol/L (-2.0-3.0) Venous Blood Total Hemoglobin 14.2 g/dL (12.0-16.0) Venous Blood Oxyhemoglobin 92.1 % (0.0-79.0) Venous Blood Carboxyhemoglobin 2.4 % (0.5-1.5) Venous Blood Methemoglobin 0.6 % (0.0-1.5) Hemoglobin A1c 5.6 % A1C (<5.7) B-Type Natriuretic Peptide 128.53 pg/mL (0-100) Other Laboratory Tests 09/24/24 13:10 09/24/24 06:43 Brief Hx & Hospital Course: ICU Course: Ms. White, 54-year-old female with a history of COPD on home oxygen (2-4 L), schizophrenia, and hypertension was brought to the ED with shortness of breath and cough for one day. She was found cyanotic and struggling to breathe at her [facility], with SpO2 in the mid/low 80s. En route, she received a DuoNeb treatment and 8 L of oxygen via nasal cannula. She denies fever, flu-like symptoms, chest pain, dizziness, diaphoresis, abdominal pain, nausea, vomiting, or changes in bowel and bladder movements. At presentation patient was found to have a hypoxic and hypercapnic respiratory failure on BiPAP it worsened with more of CO2 retention with worsening respiratory acidosis needing intubation at ED. patient was also found to have possible infection with aspiration pneumonia and presented in sepsis. Septic shock was treated with IV fluid and Levophed. Patient improved significantly overnight. Patient remains hemodynamically stable, home health arranged for continued physical therapy. Patient can be taken off of all catheters before discharge. Chronic [facility] resident at [facility]: PT evaluation appreciated disposition to [facility] with home health PT on discharge. Medical Condition Treated in Hospital: # schizophrenia: Continue olanzapine 20mg daily check for EKG for QTC unremarkable, consider instead of home halodol at discharge. # insomnia: Trazodone 75 mg at night, sertraline 100 mg continue # anxiety disorder: as needed Ativan, continue, sertraline as above # NSTEMI type 2 secondary to above, resolved. # Probable anteroseptal infarct, old # Nonspecific T abnormalities inferior leads, troponin -ve # Left posterior fascicular block, Echo repeated normal. # Acute exacerbation of chronic COPD needing intubation and sedation. # Acute on chronic respiratory failure due to COPD exacerbation: Status post extubation oxygen. # vent care and successful CPAP trial with the help of pulmonology. # Community-acquired Gram-positive MRSA pneumonia status post vancomycin IV # Oropharyngeal swelling, resolved # nasal MRSA swab positive, mupirocin ointment x5 days # GERD/GI prophylaxis on Protonix # on foleys passing urine, consider trial of micturition voiding without Hartman's # sepsis secondary to above status post septic protocol with broad-spectrum antibiotic and IV fluid pain # Leukopenia likely due to sepsis improved. # mild thrombocytopenia, recovering no active bleeding noted # Mixed acid-base disorder, resolved: Primary Metabolic Acidosis With Secondary Respiratory Acidosis And Additional Metabolic Alkalosis Likely Due To Contraction Alkalosis, resolving. 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 Avoid over- correction to avoid devastating neurological damages with cerebral edema/central pontine myelinolysis. Follow up: Follow up with primary care physician, it desktop support technician, neurologist as needed. Twice a week of BMP result recent to primary care and it desktop support technician. Medications at discharge: Stop Haldol, continue 20 mg daily of olanzapine, other medications as needed, nebulizers to continue and daily 20 IU nasal desmopressin. Discharge disposition: [facility] with [facility] health arrangement as per social work to have continued physical therapy. The plan was discussed with Dr. Connolly. Discharge discussion needed total 39 minutes. Consults/Reason for consult Nephrology, pulmonology Operations or Procedures [place] [address] Ph: [phone] DIAGNOSTIC IMAGING Diagnostic Imaging Report : [id number] Signed PATIENT: NATIVIDAD WHITE ACCT: [id number] UNIT: [id number] : 1970 LOC: [facility] ROOM / BED: [address] [place] [address] AGE / SEX: 54 / F ADM STATUS: ADM IN SERVICE 1557 ORDERING PHYSICIAN: SVETLANA BROOKS RESIDENT PROCEDURE(s): CXR1 - CHEST XRAY 1 VIEW REASON: SOB ORDER NUMBER(s): [id number], ACCESSION NUMBER(s): [id number] CHEST RADIOGRAPH Indication: SOB Technique: Single frontal view of the chest was obtained Comparison: XY CHEST PORTABLE on DOS: 09/21/24, XY CHEST PORTABLE on DOS: 09/20/24, XY CHEST PORTABLE on DOS: 09/19/24 FINDINGS: Lines and Tubes: Endotracheal tube has been removed. Enteric tube below the left diaphragm in the stomach. Right internal jugular catheter in place unchanged. Lungs: Unimproved airspace disease right lower lung field Pleura: No effusion. No pneumothorax. Cardiomediastinal contours: Unremarkable Bones: No acute osseous abnormality. IMPRESSION: 1. Endotracheal tube has been removed. 2. Enteric tube and right internal jugular line in place unchanged 3. Unimproved airspace disease right lower lung field. ATED BY: KITTY JEAN Jr. DO DICTATED DATE/TIME: 09/22/241755 SIGNED BY: KITTY JEAN Jr., DO SIGNED DATE/TIME: 09/22/241755 CC: [address] [address] Ph: [phone] DIAGNOSTIC IMAGING Diagnostic Imaging Report : [id number] [address] Ph: [phone] DIAGNOSTIC IMAGING Diagnostic Imaging Report : [id number] Signed PATIENT: NATIVIDAD WHITE ACCT: [id number] UNIT: [id number] : 1970 LOC: ICU [place] ROOM / BED: [address] [place] [address] AGE / SEX: 54 / F ADM STATUS: ADM IN SERVICE 140 ORDERING PHYSICIAN: SVETLANA BROOKS RESIDENT PROCEDURE(s): ECIDC - ECHO 2D MODE CARDIAC DOP REASON: Structural heart disease to rule out. ORDER NUMBER(s): [id number], ACCESSION NUMBER(s): [id number] APPROVED REPORT EXAM: Two-dimensional and M-mode echocardiogram with Doppler and color Doppler. INDICATION R/O structural heart disease DIMENSIONS LVDd 3.9 (3.8-5.7cm) LA (2D) 2.9 (1.9-4.0cm) Aortic Root 3.0 (2.0- 3.7cm) LVDs 2.4 (2.5-4.0cm) LA (MM) (1.9-4.0cm) Aortic Cusp Exc 1.7 (1.5- 2.0cm) EF (%) 69.0 (55-70%) Rt. Atrium 3.6 (1.9-4.0cm) Asc. Aorta cm IVSd 0.8 (0.7-1.1cm) RV (D) (1.8-2.4cm) PWd 0.9 (0.7-1.1cm) Mitral Valve Mitral Mitral Stenosis E wave 0.62m/s MV Mean GR. mmHg A wave 0.83m/s MV Peak GR. mmHg E/A ratio 0.7 2D MVA cm2 DECEL Time 136ms PRESS 1/2 Time ms Aortic Valve Aortic Valve Aortic Stenosis V1 1.02m/s AO Mean GR. 3mmHg V2 1.23m/s AO Peak GR. 6mmHg LVOT Diameter 2.1 (1.8-2.4cm) Doppler DAVID 2.87cm2 Other Information Quality : Technically Limited Rhythm : Technically limited study due to body habitus and patient position. Conclusion lvef 70% by visual estimate noraml RV function normal atria pericardial fat pad SIGNED BY: TARA PARKS MD SIGNED DATE/TIME: 09/22/24 1630 CC: EKG Name: NATIVIDAD WHITE Acct: [id number] [place] [address] ELECTROCARDIOGRAM REPORT PATIENT: NATIVIDAD WHITE ACCT: [id number] : 1970 LOC: [facility] ROOM / BED: [address] [place] [address] AGE / SEX: 54 / F ADM STATUS: ADM IN SERVICE 1515 UNIT: [id number] ORDERING PHYSICIAN: SVETLANA BROOKS RESIDENT PROCEDURE(s): EKG - ELECTROCARDIGRAM ORDER NUMBER(s): [id number], ACCESSION NUMBER(s): [id number] [facility] Test Date: 2024-09-21 Test Time: 04:21:32 Pat Name: NATIVIDAD WHITE Department: Room: [address] [place] [address] Gender: F 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 DICTATED BY:DALIA AREVALO MD DICTATED DATE/TIME:09/21/24 0421 ELECTRONICALLY SIGNED BY:DALIA AREVALO MD 09/21/24 0858 ELECTRONICALLY CO-SIGNED BY: Signed PATIENT: NATIVIDAD WHITET: [id number] UNIT: [id number] : 1970 [facility]OM / BED: [address] [place] [address] AGE / SEX: 54 / F ADM STATUS: ADM IN SERVICE 1157 ORDERING PHYSICIAN: SVETLANA BROOKS PROCEDURE(s): HWOCT - HEAD WITHOUT CONTRAST REASON: Rule out stroke or any infarction. ORDER NUMBER(s): [id number], ACCESSION NUMBER(s): [id number] CT HEAD WITHOUT CONTRAST INDICATION: Rule out stroke or any infarction. EXAM DATE: 09/18/2024 02:28 PM COMPARISON: None RADIATION DOSE: CTDIvol: 54.07 mGy, DLP: 866.91 mGy*cm PROCEDURE: CT scans of the head were obtained from the vertex to the skull base. Sagittal and coronal reconstructions were provided. All CT scans at this medical facility are performed using dose modulation techniques as appropriate to a performed exam including the following: Automated exposure control was utilized; adjustment of the MA and/or KV according to patient size; and use of iterative reconstruction technique. FINDINGS: There is sulcal and ventricular prominence. The brain otherwise shows normal morphology and maria-white matter differentiation, without intracranial hemorrhage, extra-axial fluid collection, mass effect or acute large vessel infarct.The basal cisterns are patent. The skull and visible facial bones are intact. The paranasal sinuses, mastoid air cells and middle ear cavities are well-aerated. The soft tissues of the scalp are unremarkable. IMPRESSION: No acute intracranial abnormality. ATED BY: DMITRIY GAONA MD DICTATED DATE/TIME: 09/18/241446 SIGNED BY: DMITRIY GAONA MD SIGNED DATE/TIME: 09/18/24 1447 CC: Condition at Discharge: Fair Final Diagnosis/Problems List # schizophrenia # insomnia # anxiety disorder # NSTEMI type 2 secondary to above, resolved. # Probable anteroseptal infarct, old # Nonspecific T abnormalities inferior leads, troponin -ve # Left posterior fascicular block, Echo repeated normal. # Acute exacerbation of chronic COPD needing intubation and sedation. # Acute on chronic respiratory failure due to COPD exacerbation # vent care and successful CPAP trial with the help of pulmonology. # Community-acquired Gram-positive MRSA pneumonia status post vancomycin IV # Oropharyngeal swelling, resolved # nasal MRSA swab positive, mupirocin ointment x5 days # GERD/GI prophylaxis on Protonix # on foleys passing urine, consider trial of micturition voiding without Hartman's # sepsis secondary to above # Leukopenia likely due to sepsis improved. # mild thrombocytopenia, recovering no active bleeding noted # Mixed acid-base disorder, resolved # likely acute ICU myopathy, generalized deconditioning # central diabetes insipidus Discharge Disposition: Assisted Living Facility ([facility]) Discharge Instruct/Medications Diet: Regular Activity: No Restrictions, As Tolerated Follow Up/Referral: As above Medications: As above Discharge Statement: "Patient was advised to return to the ER or call 911 if any headaches, dizziness, shortness of breath, chest pain, abdominal pain, bleeding, fevers, or worsening of medical condition. Patient was counseled about treatment plan, medications, possible side effects, patientverbalized understanding. All questions were answered to the best of my ability. This discharge took greater then 30 minutes in planning, reviewing documentation, counseling the patient, and discussing with other team members." ASSESSMENT ASSESSMENT Assessment Date of Service: Sep 25, 2024 Billing Provider: CHRISTAL ABRAHAM MD Common Visit Codes: 23003-BDD/OBS DISCH DAY >30min SVETLANA BROOKS RESIDENT Sep 25, 2024 08:11 CHRISTAL ABRAHAM MD Sep 28, 2024 21:50
[2024-09-25 10:42] LABS: Basophils # (auto) 0 10 ^3/uL (0-0.2); Basophils % (auto) 0.1 % (0.0-2.0); Eosinophils # (auto) 0.1 10 ^3/uL (0-0.8); Eosinophils % (auto) 1.2 % (0.0-7.0); Hematocrit 36.8 % (36.0-46.0); Hemoglobin 12.6 g/dL (12.2-16.2); Lymphocytes # (auto) 0.9 10 ^3/uL (0.4-5.4); Lymphocytes % (auto) 10.9 % (10.0-50.0); Mean Corpuscular Hemoglobin 30.2 pg (28.0-32.0); Mean Corpuscular Hgb Conc. 34.3 g/dL (32.0-36.0); Mean Corpuscular Volume 88.1 fL (80.0-100.0); Monocytes # (auto) 0.5 10 ^3/uL (0-1.3); Monocytes % (auto) 5.9 % (0.0-12.0); Neutrophils # (auto) 7.1 10 ^3/uL (1.6-8.6); Neutrophils % (auto) 81.9 % (37.0-80.0); Platelet Count (auto) 140 10^3/uL (140-450); Red Blood Cells 4.18 10^6/uL (4.0-5.20); Red Cell Distribution Width 15.1 % (11.8-14.3); White Blood Cell 8.6 10^3/uL (4.4-10.8)
[2024-09-25 10:47] LABS: Anion Gap 2 (5-15)
[2024-09-25 10:51] LABS: Calcium 8.7 mg/dL (8.7-10.4); Carbon Dioxide 32 mmol/L (20-31); Chloride 85 mmol/L (98-107); Potassium 3.2 mmol/L (3.5-5.1)
[2024-09-25 10:54] LABS: BUN/Creatinine Ratio 22.6 (10.0-20.0)
[2024-09-25 10:56] LABS: Sodium 119 mmol/L (136-145)
[2024-09-25 11:00] LABS: Blood Urea Nitrogen 7 mg/dL (9-23); Glucose 156 mg/dL (74-106)
[2024-09-25] MEDS: POTASSIUM CHLORIDE 40 MEQ, LIDOCAINE 1% (LOCAL ANESTH.) 4 ML in SODIUM CHL 0.9% 250 ML IV ONE (11:00)
[2024-09-25 13:57] LABS: Potassium 3.8 mmol/L (3.5-5.1)
[2024-09-25 13:58] LABS: Anion Gap 2 (5-15); Carbon Dioxide 29 mmol/L (20-31)
[2024-09-25 14:03] LABS: BUN/Creatinine Ratio 22.6 (10.0-20.0)
[2024-09-25 14:06] LABS: Blood Urea Nitrogen 7 mg/dL (9-23); Calcium 8.3 mg/dL (8.7-10.4); Chloride 83 mmol/L (98-107); Glucose 177 mg/dL (74-106); Sodium 114 mmol/L (136-145)
[2024-09-25] MEDS: SODIUM CHL 3% 500 ML IV ONE (14:31)
--- NOTE | 2024-09-25 16:46 | DVHPN2 ---
Progress Note Date Seen: Sep 25, 2024 Has the PT tested + for MRSA If YES, has PT been informed?: No Medical Necessity Reason Pt with a Central, PICC or Fol: Yes The following are medically ne: Jones Catheter Reason for jones catheter: Strict I&O, Total Immobilization Subjective Review of Systems Pt upgraded to ICU for acute hyponatremia. Pt reports she feels weak. Objective vital signs Vital Sign Date Time Temp Pulse Resp B/P (MAP) Pulse Ox O2 Delivery O2 Flow Rate FiO2 09/25/24 14:52 96 24 97 09/25/24 14:46 Nasal Cannula* 2 28 09/25/24 13:00 98.3 131/83 (99) 98.3 Total Intake and Output 09/24/24 09/24/24 09/25/24 15:00 23:00 07:00 Intake Total 112 ml 1050 ml 1050 ml Output Total 850 ml 2150 ml Balance 112 ml 200 ml -1100 ml medications Current Medications Medications Dose Ordered Sig/Elaine Route Start Time Stop Time Status Last Admin Dose Admin Albuterol 2.5 mg Q4HR NEB 09/14/24 02:00 09/25/24 14:46 2.5 MG Ipratropium [place] 0.5 mg Q4HR NEB 09/14/24 02:00 09/25/24 14:46 0.5 MG Pantoprazole Sodium 40 mg DAILY IV 09/14/24 10:00 09/25/24 08:52 40 MG Enoxaparin Sodium 40 mg DAILY SC 09/14/24 10:00 09/25/24 08:53 40 MG Diagnostic Test (Pha) 1 strip Q6HR 09/18/24 00:00 09/25/24 12:00 1 STRIP Insulin Human Regular FOLLOW SLIDING SCALE Q6HR SC 09/18/24 00:00 09/25/24 16:00 4 UNITS Dextrose 50 ml UD IV 09/18/24 00:00 09/25/24 06:16 50 ML Lorazepam 1 mg Q4HP PRN IV 09/20/24 13:30 09/25/24 16:05 1 MG Olanzapine 20 mg DAILY PO 09/21/24 10:00 09/25/24 08:52 20 MG Acetaminophen 650 mg Q6HPRN PRN GT 09/20/24 23:15 09/22/24 06:41 650 MG Prednisone 40 mg DAILY PO 09/22/24 10:00 09/25/24 08:52 40 MG Examination Gen: In no acute distress. Pulm: Bilateral air entry, no rales CVS:RRR, normal S1 and S2 Ext: No edema Neuro: A&O laboratory and microbiology Laboratory Tests 09/25/24 13:00 09/25/24 09:08 Test 09/25/24 13:00 Range/Units Serum Glucose 177 H 74-106 mg/dL Microbiology Date/Time Source Procedure Growth Status 09/15/24 21:15 Nose MRSA Screen - Final Methicillin Resistant S.aureus Complete 09/15/24 02:00 Sputum Expectorated Sputum Gram Stain - Final Complete 09/15/24 02:00 Respiratory Culture - Final Methicillin Resistant S.aureus Complete 09/13/24 21:11 Blood Blood Culture - Final NO GROWTH AFTER 5 DAYS OF INCUBATION. Complete Labs and/or images reviewed: Labs reviewed by me Problem List/Assessment/Plan Problem List/Assessment/Plan IMP Hypernatremia- resolved Polyuria possible diabetes insipidus-ongoing Status post extubation hypoxic respiratory failure MRSA PNA Acute Hyponatremia- 114 REC Serial chemistry panels next 1800 D/C DDAVP IVF 3% NaCl @ 50ml/hr- acute hyponatremia. Next chemistry panel 1800. Strict I&O's We will continue to follow closely Case discussed with Dr. Ryan Scruggs Plan discussed with: Patient Dietary Evaluation Review Comments: 1) Continue to monitor pt PO intake to meet at least 75% of meals 2) Continue current plan of care Expected Outcomes/Goals: F/U in 3-5 days JAMIR BERNARD Sep 25, 2024 16:46
[2024-09-25] MEDS: hydrALAZINE HCL 20 MG/ML VL IV PRN (18:43)
[2024-09-25] MEDS: hydrALAZINE HCL 20 MG/ML VL ONE (18:44)
[2024-09-25 19:34] LABS: Potassium 4.7 mmol/L (3.5-5.1)
[2024-09-25 19:35] LABS: Anion Gap 3 (5-15); Calcium 8.9 mg/dL (8.7-10.4); Carbon Dioxide 28 mmol/L (20-31)
[2024-09-25 19:40] LABS: BUN/Creatinine Ratio 19.2 (10.0-20.0)
[2024-09-25 19:48] LABS: Blood Urea Nitrogen 5 mg/dL (9-23); Chloride 87 mmol/L (98-107); Glucose 71 mg/dL (74-106)
[2024-09-25 19:49] LABS: Sodium 118 mmol/L (136-145)
--- NOTE | 2024-09-25 23:10 | DVHPN2 ---
Progress Note - Dictate Date Seen: Sep 25, 2024 Has the PT tested + for MRSA If YES, has PT been informed?: No Medical Necessity Reason Pt with a Central, PICC or Fol: Yes The following are medically ne: Jones Catheter Reason for jones catheter: Strict I&O, Total Immobilization Subjective Patient seen and examined at bedside. Remains on supplemental oxygen Overnight events reviewed. vital signs Vital Sign Date Time Temp Pulse Resp B/P (MAP) Pulse Ox O2 Delivery O2 Flow Rate FiO2 09/25/24 22:03 107 28 96 09/25/24 21:57 Nasal Cannula* 3 32 09/25/24 21:53 134/76 (95) 09/25/24 20:30 98.4 98.4 Total Intake and Output 09/24/24 09/24/24 09/25/24 15:00 23:00 07:00 Intake Total 112 ml 1050 ml 1050 ml Output Total 850 ml 2150 ml Balance 112 ml 200 ml -1100 ml medications Current Medications Medications Dose Ordered Sig/Elaine Route Start Time Stop Time Status Last Admin Dose Admin Albuterol 2.5 mg Q4HR NEB 09/14/24 02:00 09/25/24 21:57 2.5 MG Ipratropium [place] 0.5 mg Q4HR NEB 09/14/24 02:00 09/25/24 21:57 0.5 MG Pantoprazole Sodium 40 mg DAILY IV 09/14/24 10:00 09/25/24 08:52 40 MG Enoxaparin Sodium 40 mg DAILY SC 09/14/24 10:00 09/25/24 08:53 40 MG Diagnostic Test (Pha) 1 strip Q6HR 09/18/24 00:00 09/25/24 18:00 1 STRIP Insulin Human Regular FOLLOW SLIDING SCALE Q6HR SC 09/18/24 00:00 09/25/24 16:00 4 UNITS Dextrose 50 ml UD IV 09/18/24 00:00 09/25/24 06:16 50 ML Lorazepam 1 mg Q4HP PRN IV 09/20/24 13:30 09/25/24 16:05 1 MG Olanzapine 20 mg DAILY PO 09/21/24 10:00 09/25/24 08:52 20 MG Acetaminophen 650 mg Q6HPRN PRN GT 09/20/24 23:15 09/22/24 06:41 650 MG Prednisone 40 mg DAILY PO 09/22/24 10:00 09/25/24 08:52 40 MG Hydralazine HCl 10 mg Q6HP PRN IV 09/25/24 18:15 09/25/24 18:43 10 MG objective Gen.: Patient lying in bed in no apparent distress. On supplemental oxygen. Head: Normocephalic, atraumatic. Eyes: EOMI/PERRLA. Ears: Normal hearing. Normal anatomy. Neck/trachea: Trachea midline, supple. Nose: Normal external anatomy. Mouth: Moist mucous membranes. Chest: Decreased air entry bilaterally. No wheezing or rhonchi. Cardiovascular: Positive S1, positive S2. Regular rate and rhythm. Abdomen: Positive bowel sounds in all 4 quadrants. Soft, non-tender, non- distended. : Deferred. Rectal: Deferred. Skin: Warm, dry. Intact. Extremities: 2+ radial pulses bilaterally. No lower extremity edema. Neuro: Awake, alert, oriented x3. No gross motor or sensory deficits. Cranial nerves II through XII intact. Gait not assessed. laboratory and microbiology Laboratory Tests 09/25/24 18:56 09/25/24 09:08 Test 09/25/24 18:56 Range/Units Serum Glucose 71 L 74-106 mg/dL Assessment/Plan Impression: Acute hypoxic respiratory failure Acute hypercarbic respiratory failure AE COPD Pneumonia Lung scarring Events: Remains on supplemental oxygen On 3 LPM via NC Continue to taper as tolerated Hyponatremia - sodium 114 Treat with 3% normal saline. Continue bronchodilators Steroids - Prednisone PO Incentive spirometry Clinimix for nutritional support. Monitor renal function. Monitor electrolytes. Supplement as necessary. Potassium supplementation F/u Nephrology recs Patient upgraded to ICU. Labs and imaging reviewed Rest of plan as outlined below. Plan: S/p extubation on 09/21/24 Supplemental oxygen, transitioned from high-flow O2 to nasal cannula Titrate to keep sats between 88-94% BiPAP at night Off sedation Pressors if necessary for hemodynamic support Titrate to keep mean arterial pressure greater than 65 mmHg. Continue bronchodilators. HOB elevation Aspiration precautions Monitor renal function Monitor electrolytes. Supplement as necessary. Monitor ins and outs. Maintain euvolemia. GI prophylaxis. DVT prophylaxis. Prognosis: Poor given patient's multiple co-morbidities. Condition: Critical Rest of plan per hospitalist and other consultants. A total of 35 minutes of critical care time was spent reviewing the patient record, examining the patient, making a diagnostic and therapeutic plan, discussing this plan with the medical personnel, following up on diagnostic studies and following the patient for clinical stability excluding any and all procedures. At least 50% of this time was spent in direct, [id number] contact. Thank you, Dr. Segundo, for allowing me to participate in this patient's care. Further recommendations will depend on the patient's clinical course. Please do not hesitate to contact me if you have any questions or concerns. This medical document was created using an electronic medical record system with [employer] dictation system. Although these documentations are being carefully reviewed, there may still be some phonetic and typographical changes. The errors are purely typographical, due to imperfection on the software program, and do not reflect any compromise in the patient's medical care. Dietary Evaluation Review Comments: 1) Continue to monitor pt PO intake to meet at least 75% of meals 2) Continue current plan of care Expected Outcomes/Goals: F/U in 3-5 days Plan discussed with: Other (SIL Shetty) Critical Care Time(min): 35 BRITANY MEDRANO MD Sep 25, 2024 23:10
[2024-09-26] VITALS (29 sets, daily range): BP systolic 101–135; BP diastolic 50–93; PULSE 82–115; RESP 13–51; TEMP 98.7–98.8; O2SAT 90–100
[2024-09-26 00:45] LABS: Potassium 3.6 mmol/L (3.5-5.1)
[2024-09-26 00:46] LABS: Anion Gap 1 (5-15)
[2024-09-26 00:47] LABS: Calcium 8.6 mg/dL (8.7-10.4); Carbon Dioxide 32 mmol/L (20-31); Chloride 94 mmol/L (98-107); Sodium 127 mmol/L (136-145)
[2024-09-26 00:51] LABS: BUN/Creatinine Ratio 21.7 (10.0-20.0); Glucose 93 mg/dL (74-106)
[2024-09-26 01:03] LABS: Blood Urea Nitrogen 5 mg/dL (9-23)
[2024-09-26 04:23] LABS: Urine Bacteria None Seen /hpf (None Seen)
[2024-09-26 04:32] LABS: Urine Blood TRACE /uL (Negative); Urine Clarity Clear (Clear); Urine Protein, UAD Negative (Negative); Urine Specific Gravity 1.002 (1.001-1.035); Urine Squamous Epithelial Cell None Seen /hpf (<5); Urine Urobilinogen Normal (Negative); Urine WBC 21 /hpf (0 - 5); Urine WBC Clumps PRESENT /hpf (None Seen)
[2024-09-26 04:39] LABS: Potassium 3.5 mmol/L (3.5-5.1)
[2024-09-26 04:40] LABS: Urine Color STRAW (Yellow)
[2024-09-26 04:40] LABS: Anion Gap 4 (5-15); Calcium 9.3 mg/dL (8.7-10.4)
[2024-09-26 04:42] LABS: Carbon Dioxide 32 mmol/L (20-31); Chloride 96 mmol/L (98-107); Sodium 132 mmol/L (136-145)
[2024-09-26 04:44] LABS: Creatinine, Urine 6.6 mg/dL (30.0-125.0)
[2024-09-26 04:45] LABS: Glucose 93 mg/dL (74-106)
[2024-09-26 04:48] LABS: BUN/Creatinine Ratio 17.2 (10.0-20.0); Blood Urea Nitrogen < 5 mg/dL (9-23)
[2024-09-26] MEDS ORDERED: DESMOPRESSIN ACET 0.01% 5ML NASAL SPRY ONE (09:15)
--- NOTE | 2024-09-26 09:20 | DVHPNRES ---
Progress Note Date Seen: Sep 26, 2024 Resident Creating Document: SVETLANA BROOKS RESIDENT Has the PT tested + for MRSA If YES, has PT been informed?: No Medical Necessity Reason Pt with a Central, PICC or Fol: Yes The following are medically ne: Jones Catheter Reason for jones catheter: Strict I&O, Total Immobilization Subjective Patient reports: No new complaints, Feels better Changes from previous H/P or p: No Changes Review of Systems: HEENT:Normal, CVS:Normal, RESPIRATORY:Normal, GI:Normal, :Normal, MSK:Normal, NEURO:Normal Objective vital signs Vital Sign Date Time Temp Pulse Resp B/P (MAP) Pulse Ox O2 Delivery O2 Flow Rate FiO2 09/26/24 08:00 98.7 99 24 110/52 (71) 97 98.7 09/26/24 08:00 Nasal Cannula* 3 32 Total Intake and Output 09/25/24 09/25/24 09/26/24 15:00 23:00 07:00 Intake Total 778.5 ml 1608.5 ml 80 ml Output Total 1625 ml 3575 ml Balance 778.5 ml -16.5 ml -3495 ml medications Current Medications Medications Dose Ordered Sig/Elaine Route Start Time Stop Time Status Last Admin Dose Admin Albuterol 2.5 mg Q4HR NEB 09/14/24 02:00 09/26/24 06:02 2.5 MG Ipratropium [place] 0.5 mg Q4HR NEB 09/14/24 02:00 09/26/24 06:02 0.5 MG Pantoprazole Sodium 40 mg DAILY IV 09/14/24 10:00 09/25/24 08:52 40 MG Enoxaparin Sodium 40 mg DAILY SC 09/14/24 10:00 09/25/24 08:53 40 MG Diagnostic Test (Pha) 1 strip Q6HR 09/18/24 00:00 09/25/24 23:48 1 STRIP Insulin Human Regular FOLLOW SLIDING SCALE Q6HR SC 09/18/24 00:00 09/25/24 16:00 4 UNITS Dextrose 50 ml UD IV 09/18/24 00:00 09/25/24 06:16 50 ML Lorazepam 1 mg Q4HP PRN IV 09/20/24 13:30 09/26/24 04:02 1 MG Olanzapine 20 mg DAILY PO 09/21/24 10:00 09/25/24 08:52 20 MG Acetaminophen 650 mg Q6HPRN PRN GT 09/20/24 23:15 09/26/24 03:47 650 MG Prednisone 40 mg DAILY PO 09/22/24 10:00 09/25/24 08:52 40 MG Hydralazine HCl 10 mg Q6HP PRN IV 09/25/24 18:15 09/25/24 18:43 10 MG Examination GENERAL:Normal (Awake RASS+1, Off of vent), HEENT:Normal (Central venous catheter intact,), NECK:Normal, LUNGS:Normal (Bilateral clear, on 3-4 L nasal cannula oxygen) shallow rapid breathing, CVS:Normal (Unchanged sinus rhythm), ABDOMEN:Normal (BS positive, no distention or rigidity.), MSK:Normal (Can not assess strength, unchanged muscle mass, grossly no pitting edema/injury noted.), SKIN:Normal, NEURO:Normal ( mild anxiety, awake), :Normal (foleys) laboratory and microbiology Laboratory Tests 09/26/24 04:04 09/25/24 09:08 Test 09/26/24 04:04 Range/Units Serum Glucose 93 74-106 mg/dL Microbiology Date/Time Source Procedure Growth Status 09/15/24 21:15 Nose MRSA Screen - Final Methicillin Resistant S.aureus Complete 09/15/24 02:00 Sputum Expectorated Sputum Gram Stain - Final Complete 09/15/24 02:00 Respiratory Culture - Final Methicillin Resistant S.aureus Complete 09/13/24 21:11 Blood Blood Culture - Final NO GROWTH AFTER 5 DAYS OF INCUBATION. Complete Labs and/or images reviewed: Labs reviewed by me, Image(s) reviewed by me Problem List/Assessment/Plan Problem List/Assessment/Plan ICU Course: Ms. White, 54-year-old female with a history of COPD on home oxygen (2-4 L), schizophrenia, and hypertension was brought to the ED with shortness of breath and cough for one day. She was found cyanotic and struggling to breathe at her half-way, with SpO2 in the mid/low 80s. En route, she received a DuoNeb treatment and 8 L of oxygen via nasal cannula. She denies fever, flu-like symptoms, chest pain, dizziness, diaphoresis, abdominal pain, nausea, vomiting, or changes in bowel and bladder movements. At presentation patient was found to have a hypoxic and hypercapnic respiratory failure on BiPAP it worsened with more of CO2 retention with worsening respiratory acidosis needing intubation at ED. patient was also found to have possible infection with aspiration pneumonia and presented in sepsis. Septic shock was treated with IV fluid and Levophed. Patient improved significantly overnight. Patient remains hemodynamically stable. Close to discharge as soon as desmopressin for central DI is treated and managed well. Hospitalization day: 14 A. Neurolgy: # Sedated on Fentanyl 150 mcg/hr and Versed 5 mg/hr>> Precedex, as needed Ativan>> off of sedation, awake alert x 4 , baseline occasional hallucinations due to preexisting psychosis. # schizophrenia: When patient has access to oral medication we will consider. Patient takes Haldol at home, will add as it might help with agitation. QTC not concerning. Patient is started on olanzapine 10, increased olanzapine 20 check for EKG for QTC unremarkable. At discharge consider olanzapine to continue instead of halodol. # insomnia: Trazodone 75 mg at night, sertraline 100 mg started, continue. # anxiety disorder: as needed Ativan, continue. B. Cardiology: # NSTEMI type 2 secondary to above, resolved.: Keep magnesium over 2, potassium over 4 keep the patient on telemetry # Probable anteroseptal infarct, old # Nonspecific T abnormalities inferior leads, troponin -ve # Left posterior fascicular block: Continue close monitoring we will try to avoid fatemeh blockers, no concerning findings noted on tele. Echo repeated unremarkably normal. C. Respiratory: # Acute exacerbation of chronic COPD, needing intubation, now extubated. # Acute on chronic respiratory failure: secondary to acute exacerbation of chronic COPD, Echo on 03/09 revealed ejection fraction 50% with grade 1 diastolic dysfunction and RVSP 34 mm Hg. Successful weaning. # Patient failed CPAP previously now post extubation. # Possible community-acquired Gram-positive MRSA pneumonia, likely aspiration pneumonia: IV ceftriaxone 1 g daily and IV azithromycin 500 mg >>cefepime plus vancomycin>> Continue vancomycin as MRSA +ve. # Oropharyngeal swelling: Improved with IV Benadryl 25 mg # MRSA swab +VE again: continue mupirocin ointment. D. Gastrointestinal: # on PPI E. Genitourinary: # on foleys passing urine F. Infectious Disease: # sepsis secondary to above: IV vancomycin only as patient is Staphylococcus positive in sputum culture # Nares +ve for MRSA: 5 days of mupirocin bid to continue. G. Hematology & Oncology: # Leukopenia: WBC mildly low likely sepsis / septic shock related. predominant neutrophilia and lymphopenia. # mild thrombocytopenia, recovering: This morning platelets 134, mildly dropped, continues to drop to 100, follow CBC tomorrow if patient continues to have platelet drop we will hold antiplatelets and anticoagulation. H. Nephrology: # close intake output. # likely contraction alkalosis: Patient's past heavy amount of urine despite the fact patient is not on diuretics. Likely due to auto diuresis in the recovery phase of acute disease. Fluid challenge/LR to continue. # Hypernatremia, hypovolumic, resolved. # Hypervolumic hyponatremia, corrected # Central diabetes insipidus: daily ddavp, follow Nephrology input. 1mg IV daily will try to switch to nasal for outpatient discharge planning. and close I/O daily bid BMP. # Mixed acid-base disorder: Primary Metabolic Acidosis With Secondary Respiratory Acidosis And Additional Metabolic Alkalosis Likely Due To Contraction Alkalosis, resolving. I. Endocrine: # Target BG 140-180 in hospital as per NICE-Sugar trial. J. MSK: # ICU/ acute illness myopathy: Patient needs PT post extubation> Home health PT at discharge. # climnimax stopped. # physical therapy>> home PT continue. K. Prophylaxis: PPI: Protonix DVT: Lovenox L. Lines & Drains (with insertion date): IV Central : Y (can be removed) Arterial line: Y M. Drips: off N. Disposition: Downgrade to Telemetry floor. NO Need of ICU level of care as the patient do not need the 3% saline anymore. The plan was discussed with Dr. Connolly. The patient care consists of total 81 minutes of critical care time excluding the procedures. Chronic half-way resident at [facility]: PT evaluation appreciated disposition to [facility] with home health PT on discharge. Plan discussed with: Patient, Other My Orders My Orders Orders - SVETLANA BROOKS RESIDENT Procedure Category Date Status Time Adrenocorticotropic LAB 09/25/24 In Process Hormone 10:56 Quality Assurance Practice Manager ORDERS 09/25/24 Transmitted 11:19 Transfer Orders XFER 09/25/24 Transmitted 11:19 Transfer Orders XFER 09/25/24 Transmitted 11:48 Clostridium Difficile ANDRES 09/25/24 In Process Toxin 12:03 Basic Metabolic Panel LAB 09/26/24 Logged 12:00 Basic Metabolic Panel LAB 09/26/24 Logged 18:00 Basic Metabolic Panel LAB 09/27/24 Verified 00:00 Basic Metabolic Panel LAB 09/27/24 Verified 06:00 Basic Metabolic Panel LAB 09/27/24 Verified 12:00 Basic Metabolic Panel LAB 09/27/24 Verified 18:00 Basic Metabolic Panel LAB 09/28/24 Verified 00:00 Basic Metabolic Panel LAB 09/28/24 Verified 06:00 Basic Metabolic Panel LAB 09/28/24 Verified 12:00 Desmopressin Nasal PHA 09/26/24 Logged (Ddavp Nasal) 09:15 Complete Blood Count LAB 09/26/24 Verified 09:18 Dietary Evaluation Review Comments: 1) Continue to monitor pt PO intake to meet at least 75% of meals 2) Continue current plan of care Expected Outcomes/Goals: F/U in 3-5 days Date of Service: Sep 26, 2024 Billing Provider: CHRISTAL ABRAHAM MD Common Visit Codes: [id number] INP/OBS CARE(HIGH) SVETLANA BROOKS RESIDENT Sep 26, 2024 09:20 CHRISTAL ABRAHAM MD Sep 28, 2024 21:12
[2024-09-26] MEDS: DESMOPRESSIN ACET 4 MCG/1 ML AMPULE IV ONE (10:35)
[2024-09-26 10:42] LABS: Basophils # (auto) 0 10 ^3/uL (0-0.2); Basophils % (auto) 0.5 % (0.0-2.0); Eosinophils # (auto) 0.1 10 ^3/uL (0-0.8); Eosinophils % (auto) 0.8 % (0.0-7.0); Hematocrit 45.4 % (36.0-46.0); Hemoglobin 14.9 g/dL (12.2-16.2); Lymphocytes # (auto) 1.7 10 ^3/uL (0.4-5.4); Lymphocytes % (auto) 18.2 % (10.0-50.0); Mean Corpuscular Hemoglobin 29.7 pg (28.0-32.0); Mean Corpuscular Hgb Conc. 32.9 g/dL (32.0-36.0); Mean Corpuscular Volume 90.3 fL (80.0-100.0); Monocytes # (auto) 0.8 10 ^3/uL (0-1.3); Monocytes % (auto) 8.4 % (0.0-12.0); Neutrophils # (auto) 6.9 10 ^3/uL (1.6-8.6); Neutrophils % (auto) 72.1 % (37.0-80.0); Nucleated Red Blood Cells % 0.1 %; Platelet Count (auto) 233 10^3/uL (140-450); Red Blood Cells 5.03 10^6/uL (4.0-5.20); Red Cell Distribution Width 15.8 % (11.8-14.3); White Blood Cell 9.6 10^3/uL (4.4-10.8)
[2024-09-26 10:46] LABS: Anion Gap 4 (5-15); Chloride 104 mmol/L (98-107); Potassium 3.7 mmol/L (3.5-5.1); Sodium 141 mmol/L (136-145)
[2024-09-26 10:47] LABS: Calcium 9.6 mg/dL (8.7-10.4)
[2024-09-26 10:51] LABS: Carbon Dioxide 33 mmol/L (20-31)
[2024-09-26 10:59] LABS: Blood Urea Nitrogen 6 mg/dL (9-23); Glucose 110 mg/dL (74-106)
[2024-09-26] MEDS ORDERED: IPRATROPIUM BROM 0.5 MG/2.5ML INH SOL NEB PRN ×2 (12:00→12:15)
--- NOTE | 2024-09-26 15:08 | DVHPN2 ---
Progress Note - Dictate Date Seen: Sep 26, 2024 Has the PT tested + for MRSA If YES, has PT been informed?: No Medical Necessity Reason Pt with a Central, PICC or Fol: Yes The following are medically ne: Jones Catheter Reason for jones catheter: Strict I&O, Total Immobilization Subjective Patient awake, alert, admits to thirst vital signs Vital Sign Date Time Temp Pulse Resp B/P (MAP) Pulse Ox O2 Delivery O2 Flow Rate FiO2 09/26/24 14:00 107 21 112/70 (84) 94 09/26/24 12:00 98.7 98.7 09/26/24 12:00 Nasal Cannula* 3 32 Total Intake and Output 09/25/24 09/25/24 09/26/24 15:00 23:00 07:00 Intake Total 778.5 ml 1608.5 ml 80 ml Output Total 1625 ml 3575 ml Balance 778.5 ml -16.5 ml -3495 ml medications Current Medications Medications Dose Ordered Sig/Elaine Route Start Time Stop Time Status Last Admin Dose Admin Albuterol 2.5 mg Q4HR NEB 09/14/24 02:00 09/26/24 14:15 2.5 MG Ipratropium [place] 0.5 mg Q4HR NEB 09/14/24 02:00 09/26/24 14:15 0.5 MG Pantoprazole Sodium 40 mg DAILY IV 09/14/24 10:00 09/26/24 10:25 40 MG Enoxaparin Sodium 40 mg DAILY SC 09/14/24 10:00 09/26/24 10:26 40 MG Diagnostic Test (Pha) 1 strip Q6HR 09/18/24 00:00 09/26/24 12:00 1 STRIP Insulin Human Regular FOLLOW SLIDING SCALE Q6HR SC 09/18/24 00:00 09/26/24 12:00 2 UNITS Dextrose 50 ml UD IV 09/18/24 00:00 09/25/24 06:16 50 ML Lorazepam 1 mg Q4HP PRN IV 09/20/24 13:30 09/26/24 10:40 1 MG Olanzapine 20 mg DAILY PO 09/21/24 10:00 09/26/24 10:25 20 MG Acetaminophen 650 mg Q6HPRN PRN GT 09/20/24 23:15 09/26/24 03:47 650 MG Prednisone 40 mg DAILY PO 09/22/24 10:00 09/26/24 10:25 40 MG Hydralazine HCl 10 mg Q6HP PRN IV 09/25/24 18:15 09/25/24 18:43 10 MG Ipratropium [place] 0.5 mg Q2HPRN PRN NEB 09/26/24 12:15 Mupirocin 1 applic BID EACHNOSTRI 09/26/24 22:00 10/01/24 21:59 UNV objective Gen: nad, thin heent: nc/at, mmm lungs: cta anteriorly cvs: no rub abd: soft, bowel sounds audible ext: no edema skin: no rash neuro: alert and oriented laboratory and microbiology Laboratory Tests 09/26/24 10:17 Test 09/26/24 10:17 Range/Units Serum Glucose 110 H 74-106 mg/dL Assessment/Plan IMP DI - resumed desmopressin Acute hyponatremia - resolved Status post extubation hypoxic respiratory failure MRSA PNA REC - consideration to transition to intranasal desmopressin - we will continue with b.i.d. chemistry panels, strict Is&Os - we will Hep-Lock IV fluids. Dietary Evaluation Review Comments: 1) Continue to monitor pt PO intake to meet at least 75% of meals 2) Continue current plan of care Expected Outcomes/Goals: F/U in 3-5 days Plan discussed with: GHULAM Esqueda MD Sep 26, 2024 15:08
[2024-09-26] MEDS: LOPERAMIDE HCL 2 MG CAP/TAB PO ONE (17:08)
[2024-09-26 18:12] LABS: Anion Gap 4 (5-15); Carbon Dioxide 30 mmol/L (20-31); Chloride 101 mmol/L (98-107); Potassium 4.2 mmol/L (3.5-5.1)
[2024-09-26 18:13] LABS: Calcium 9.3 mg/dL (8.7-10.4)
[2024-09-26 18:18] LABS: BUN/Creatinine Ratio 16.1 (10.0-20.0); Blood Urea Nitrogen 9 mg/dL (9-23); Sodium 135 mmol/L (136-145)
[2024-09-26 18:19] LABS: Glucose 255 mg/dL (74-106)
[2024-09-26] MEDS: MUPIROCIN 2% OINT 15gm or 22gm FOR MRSA NARES EACHNOSTRI SCH (22:00)
--- NOTE | 2024-09-26 23:42 | DVHPN2 ---
Progress Note - Dictate Date Seen: Sep 26, 2024 Has the PT tested + for MRSA If YES, has PT been informed?: No Medical Necessity Reason Pt with a Central, PICC or Fol: Yes The following are medically ne: Jones Catheter Reason for jones catheter: Strict I&O, Total Immobilization Subjective Patient seen and examined at bedside. Remains on supplemental oxygen Overnight events reviewed. vital signs Vital Sign Date Time Temp Pulse Resp B/P (MAP) Pulse Ox O2 Delivery O2 Flow Rate FiO2 09/26/24 23:00 98 21 118/72 (87) 98 09/26/24 21:48 Nasal Cannula 4.0 09/26/24 21:48 36 09/26/24 20:00 98.8 98.8 Total Intake and Output 09/25/24 09/25/24 09/26/24 15:00 23:00 07:00 Intake Total 778.5 ml 1608.5 ml 80 ml Output Total 1625 ml 3575 ml Balance 778.5 ml -16.5 ml -3495 ml medications Current Medications Medications Dose Ordered Sig/Elaine Route Start Time Stop Time Status Last Admin Dose Admin Albuterol 2.5 mg Q4HR NEB 09/14/24 02:00 09/26/24 21:48 2.5 MG Ipratropium [place] 0.5 mg Q4HR NEB 09/14/24 02:00 09/26/24 21:48 0.5 MG Pantoprazole Sodium 40 mg DAILY IV 09/14/24 10:00 09/26/24 10:25 40 MG Enoxaparin Sodium 40 mg DAILY SC 09/14/24 10:00 09/26/24 10:26 40 MG Diagnostic Test (Pha) 1 strip Q6HR 09/18/24 00:00 09/26/24 18:11 1 STRIP Insulin Human Regular FOLLOW SLIDING SCALE Q6HR SC 09/18/24 00:00 09/26/24 17:35 8 UNITS Dextrose 50 ml UD IV 09/18/24 00:00 09/25/24 06:16 50 ML Lorazepam 1 mg Q4HP PRN IV 09/20/24 13:30 09/26/24 10:40 1 MG Olanzapine 20 mg DAILY PO 09/21/24 10:00 09/26/24 10:25 20 MG Acetaminophen 650 mg Q6HPRN PRN GT 09/20/24 23:15 09/26/24 03:47 650 MG Prednisone 40 mg DAILY PO 09/22/24 10:00 09/26/24 10:25 40 MG Hydralazine HCl 10 mg Q6HP PRN IV 09/25/24 18:15 09/25/24 18:43 10 MG Ipratropium [place] 0.5 mg Q2HPRN PRN NEB 09/26/24 12:15 Mupirocin 1 applic BID EACHNOSTRI 09/26/24 22:00 10/01/24 21:59 objective Gen.: Patient lying in bed in no apparent distress. On supplemental oxygen. Head: Normocephalic, atraumatic. Eyes: EOMI/PERRLA. Ears: Normal hearing. Normal anatomy. Neck/trachea: Trachea midline, supple. Nose: Normal external anatomy. Mouth: Moist mucous membranes. Chest: Decreased air entry bilaterally. No wheezing or rhonchi. Cardiovascular: Positive S1, positive S2. Regular rate and rhythm. Abdomen: Positive bowel sounds in all 4 quadrants. Soft, non-tender, non- distended. : Deferred. Rectal: Deferred. Skin: Warm, dry. Intact. Extremities: 2+ radial pulses bilaterally. No lower extremity edema. Neuro: Awake, alert, oriented x3. No gross motor or sensory deficits. Cranial nerves II through XII intact. Gait not assessed. laboratory and microbiology Laboratory Tests 09/26/24 17:07 09/26/24 10:17 Test 09/26/24 17:07 Range/Units Serum Glucose 255 H 74-106 mg/dL Assessment/Plan Impression: Acute hypoxic respiratory failure Acute hypercarbic respiratory failure AE COPD Pneumonia Lung scarring Events: Remains on supplemental oxygen On 3 LPM via NC Continue to taper as tolerated Sodium now 141 Vasopressin 1 dose given Monitor closely Continue bronchodilators Steroids - Prednisone PO Incentive spirometry Accu-Cheks for glycemic monitoring Clinimix for nutritional support. Labs and imaging reviewed Rest of plan as outlined below. Plan: S/p extubation on 09/21/24 Supplemental oxygen, transitioned from high-flow O2 to nasal cannula Titrate to keep sats between 88-94% BiPAP at night Off sedation Pressors if necessary for hemodynamic support Titrate to keep mean arterial pressure greater than 65 mmHg. Continue bronchodilators. HOB elevation Aspiration precautions Monitor renal function Monitor electrolytes. Supplement as necessary. Monitor ins and outs. Maintain euvolemia. GI prophylaxis. DVT prophylaxis. Prognosis: Poor given patient's multiple co-morbidities. Condition: Critical Rest of plan per hospitalist and other consultants. A total of 35 minutes of critical care time was spent reviewing the patient record, examining the patient, making a diagnostic and therapeutic plan, discussing this plan with the medical personnel, following up on diagnostic studies and following the patient for clinical stability excluding any and all procedures. At least 50% of this time was spent in direct, [id number] contact. Thank you, Dr. Segundo, for allowing me to participate in this patient's care. Further recommendations will depend on the patient's clinical course. Please do not hesitate to contact me if you have any questions or concerns. This medical document was created using an electronic medical record system with [email or web address] dictation system. Although these documentations are being carefully reviewed, there may still be some phonetic and typographical changes. The errors are purely typographical, due to imperfection on the software program, and do not reflect any compromise in the patient's medical care. Dietary Evaluation Review Comments: 1) Continue to monitor pt PO intake to meet at least 75% of meals 2) Continue current plan of care Expected Outcomes/Goals: F/U in 3-5 days Plan discussed with: Other (SIL Gamboa) Critical Care Time(min): 35 BRITANY MEDRANO MD Sep 26, 2024 23:42
[2024-09-27] VITALS (30 sets, daily range): BP systolic 110–149; BP diastolic 50–82; PULSE 88–112; RESP 15–31; TEMP 97.5–98.7; O2SAT 92–100
[2024-09-27 04:11] LABS: Anion Gap 3 (5-15); Chloride 101 mmol/L (98-107); Potassium 3.8 mmol/L (3.5-5.1); Sodium 136 mmol/L (136-145)
[2024-09-27 04:12] LABS: Calcium 9.9 mg/dL (8.7-10.4)
[2024-09-27 04:15] LABS: Carbon Dioxide 32 mmol/L (20-31)
[2024-09-27 04:17] LABS: Glucose 88 mg/dL (74-106)
[2024-09-27 04:18] LABS: BUN/Creatinine Ratio 24.3 (10.0-20.0)
[2024-09-27 04:22] LABS: Blood Urea Nitrogen 9 mg/dL (9-23)
[2024-09-27] MEDS: DESMOPRESSIN ACET 4 MCG/1 ML AMPULE IV ONE (09:24)
--- NOTE | 2024-09-27 16:37 | DVHPN2 ---
Progress Note - Dictate Date Seen: Sep 27, 2024 Has the PT tested + for MRSA If YES, has PT been informed?: No Medical Necessity Reason Pt with a Central, PICC or Fol: Yes The following are medically ne: Jones Catheter Reason for jones catheter: Strict I&O, Total Immobilization Subjective patient resting company this afternoon, urine volumes decreased, serum sodium stable in the mid 130 range vital signs Vital Sign Date Time Temp Pulse Resp B/P (MAP) Pulse Ox O2 Delivery O2 Flow Rate FiO2 09/27/24 16:00 98.7 107 27 144/82 (102) 99 98.7 09/27/24 16:00 Nasal Cannula* 3 32 Total Intake and Output 09/26/24 09/26/24 09/27/24 15:00 23:00 07:00 Intake Total 240 ml 460 ml 350 ml Output Total 1250 ml 950 ml Balance 240 ml -790 ml -600 ml medications Current Medications Medications Dose Ordered Sig/Elaine Route Start Time Stop Time Status Last Admin Dose Admin Albuterol 2.5 mg Q4HR NEB 09/14/24 02:00 09/27/24 14:05 2.5 MG Ipratropium [place] 0.5 mg Q4HR NEB 09/14/24 02:00 09/27/24 14:05 0.5 MG Pantoprazole Sodium 40 mg DAILY IV 09/14/24 10:00 09/27/24 10:05 40 MG Enoxaparin Sodium 40 mg DAILY SC 09/14/24 10:00 09/27/24 10:04 40 MG Diagnostic Test (Pha) 1 strip Q6HR 09/18/24 00:00 09/27/24 12:00 1 STRIP Insulin Human Regular FOLLOW SLIDING SCALE Q6HR SC 09/18/24 00:00 09/26/24 17:35 8 UNITS Dextrose 50 ml UD IV 09/18/24 00:00 09/25/24 06:16 50 ML Lorazepam 1 mg Q4HP PRN IV 09/20/24 13:30 09/26/24 23:42 1 MG Olanzapine 20 mg DAILY PO 09/21/24 10:00 09/27/24 10:04 20 MG Acetaminophen 650 mg Q6HPRN PRN GT 09/20/24 23:15 09/26/24 03:47 650 MG Prednisone 40 mg DAILY PO 09/22/24 10:00 09/27/24 10:04 40 MG Hydralazine HCl 10 mg Q6HP PRN IV 09/25/24 18:15 09/25/24 18:43 10 MG Ipratropium [place] 0.5 mg Q2HPRN PRN NEB 09/26/24 12:15 Mupirocin 1 applic BID EACHNOSTRI 09/26/24 22:00 10/01/24 21:59 09/27/24 09:28 1 APPLIC Desmopressin Acetate 1 mcg DAILY IV 09/28/24 10:00 objective Gen: nad, thin heent: nc/at, mmm lungs: cta anteriorly cvs: no rub abd: soft, bowel sounds audible ext: no edema skin: no rash laboratory and microbiology Laboratory Tests 09/27/24 03:23 09/26/24 10:17 Test 09/27/24 03:23 Range/Units Serum Glucose 88 74-106 mg/dL Assessment/Plan IMP clinically suspected central DI - resumed desmopressin Acute hyponatremia - resolved Status post extubation hypoxic respiratory failure MRSA PNA REC - agree with current regimen of 1 mcg IV daily - Would discharge to home/ assisted, facility on 10 mcg intranasally once daily - will need weekly basic chemistry panels to ensure stability of [Na] - May consider decreasing frequency of bmp checks as inpatient. Dietary Evaluation Review Comments: 1) Continue to monitor pt PO intake to meet at least 75% of meals 2) Continue current plan of care Expected Outcomes/Goals: F/U in 3-5 days Plan discussed with: GHULAM Esqueda MD Sep 27, 2024 16:37
--- NOTE | 2024-09-27 18:09 | DVHPN2 ---
Subjective Patient doing well, no complaints. Reviewed: H&P Changes from previous H/P or p: No Changes General: Per HPI Objective Vitals Vital Signs Date Time Temp Pulse Resp B/P (MAP) Pulse Ox O2 Delivery O2 Flow Rate FiO2 09/27/24 16:43 97.5 103 19 120/57 (78) 100 97.5 09/27/24 16:00 Nasal Cannula* 3 32 Intake/Output Intake and Output 09/27/24 07:00 Intake Total 1050 ml Output Total 2200 ml Balance -1150 ml Intake Oral 1050 ml Output Urine Total 2200 ml # Bowel Movements 2 Exam GEN: Acute distress, alert and orient times 3-4 CV: RRR, no m/r/g. LUNGS: basilar rales, no WRR ABD: Soft, normoactive BS, no masses or organomegaly. EXT: skin Warm, well perfused. no rashes. No clubbing, cyanosis, or edema. NEURO: No focal deficits, A&O x3 Medications Current Medications Medications Dose Ordered Sig/Elaine Route Start Time Stop Time Status Last Admin Dose Admin Albuterol 2.5 mg Q4HR NEB 09/14/24 02:00 09/27/24 14:05 2.5 MG Ipratropium [place] 0.5 mg Q4HR NEB 09/14/24 02:00 09/27/24 14:05 0.5 MG Pantoprazole Sodium 40 mg DAILY IV 09/14/24 10:00 09/27/24 10:05 40 MG Enoxaparin Sodium 40 mg DAILY SC 09/14/24 10:00 09/27/24 10:04 40 MG Diagnostic Test (Pha) 1 strip Q6HR 09/18/24 00:00 09/27/24 17:49 1 STRIP Insulin Human Regular FOLLOW SLIDING SCALE Q6HR SC 09/18/24 00:00 09/27/24 17:51 2 UNITS Dextrose 50 ml UD IV 09/18/24 00:00 09/25/24 06:16 50 ML Lorazepam 1 mg Q4HP PRN IV 09/20/24 13:30 09/26/24 23:42 1 MG Olanzapine 20 mg DAILY PO 09/21/24 10:00 09/27/24 10:04 20 MG Acetaminophen 650 mg Q6HPRN PRN GT 09/20/24 23:15 09/26/24 03:47 650 MG Prednisone 40 mg DAILY PO 09/22/24 10:00 09/27/24 10:04 40 MG Hydralazine HCl 10 mg Q6HP PRN IV 09/25/24 18:15 09/25/24 18:43 10 MG Ipratropium [place] 0.5 mg Q2HPRN PRN NEB 09/26/24 12:15 Mupirocin 1 applic BID EACHNOSTRI 09/26/24 22:00 10/01/24 21:59 09/27/24 09:28 1 APPLIC Desmopressin Acetate 1 mcg DAILY IV 09/28/24 10:00 Laboratory Results Laboratory Tests 09/26/24 10:17 09/27/24 03:23 Chemistry Test 09/27/24 03:23 Calcium Level 9.9 mg/dL (8.7-10.4) Urinalysis Test 09/13/24 23:48 09/22/24 16:14 09/26/24 03:25 Urine Hyaline Casts Few /lpf (0 - 2) Urine Protein/Creatinine Ratio 1.24 Urine Potassium 6 mmol/L (12-62) L Urine Total Protein 9.6 mg/dL (1-14) Urine Color Straw (Yellow) Urine Clarity Clear (Clear) Urine pH 7.0 (5.0-9.0) Urine Specific [place] 1.002 (1.001-1.035) Urine Protein Negative (Negative) Urine Ketones Negative (Negative) Urine Blood Trace /uL (Negative) H Urine Nitrite Negative (Negative) Urine Bilirubin Negative (Negative) Urine Urobilinogen Normal mg/dL (Negative) Urine Leukocyte Esterase 3+ /uL (Negative) Urine RBC <1 /hpf (0 - 4) Urine WBC 21 /hpf (0 - 5) Urine WBC Clumps Present /hpf (None Seen) Urine Squamous Epithelial Cells None seen /hpf (<5) Urine Bacteria None seen /hpf (None Seen) Urine Osmolality 93 mOsm/kg Urine Creatinine 6.60 mg/dL (30.0-125.0) L Urine Sodium 32 mmol/L (40-220) L Urine Glucose Normal mg/dL (Normal) Microbiology Microbiology Date/Time Source Procedure Growth Status 09/25/24 16:17 Nose MRSA Screen - Final Methicillin Resistant S.aureus Complete 09/25/24 12:04 Stool Clostridium difficile Toxin Assay - Final Complete 09/15/24 02:00 Sputum Expectorated Sputum Gram Stain - Final Complete 09/15/24 02:00 Respiratory Culture - Final Methicillin Resistant S.aureus Complete 09/13/24 21:11 Blood Blood Culture - Final NO GROWTH AFTER 5 DAYS OF INCUBATION. Complete Labs and/or images reviewed: Labs reviewed by me, Image(s) reviewed by me Assessment/Plan Assessment/Plan Update - doing well no complaints. Nephrology following for hyponatremia and hypernatremia from central DI Neurolgy/Psych # schizophrenia: On olanzapine. # insomnia: Trazodone 75 mg at night, # anxiety disorder: as needed Ativan if needed. Doing well right now Respiratory: # Acute exacerbation of chronic COPD: Patient is on BiPAP with saturation 98%>> increasing CO2, can not protect airways>> needing intubation at bedside. Patient was extubated and doing well. # Acute on chronic respiratory failure: secondary to acute exacerbation of chronic COPD, Echo on 03/09 revealed ejection fraction 50% with grade 1 diastolic dysfunction and RVSP 34 mm Hg. # status post endotracheal intubation status post extubation, doing well. # Patient failed CPAP, clean resolved # Sedated and intubated,ABG reviewed, compensated. CXR reviewed, reveals Patchy right basilar opacity. No effusion or pneumothorax. Devices in place. On AC mode; RR 18, VT 450, PEEP 5, FiO2 30% # Possible community-acquired Gram-positive versus Gram-negative pneumonia: IV ceftriaxone 1 g daily and IV azithromycin 500 mg >> change to cefepime plus vancomycin, negative for viral panel, Added azithromycin for atypical coverage. Continue vancomycin as MRSA +ve. - now off all antibiotics, doing well # Oropharyngeal swelling resolved: no known allergen or probably cause of tongue swelling. Cardiology: # NSTEMI type 2 secondary to above: Troponin trends are 58>136, likely demand mediated no EKG changes. telemetry unremarkable, few PVCs. Keep magnesium over 2, potassium over 4 # Probable anteroseptal infarct, old # Nonspecific T abnormalities inferior leads, troponin -ve # Left posterior fascicular block: Continue close monitoring we will try to avoid fatemeh blockers, no concerning findings noted on tele. - off all pressors (prior levophed) FENGI/Gastrointenstinal: # on PPI Nutrition - diet now [place] are stable - see hyponatremia and hypernatremia nephrology below GI ppx - protonix iv daily Nephrology/Renal: #close intake output. # central diabetes insipidus # hypernatremia likely central diabetes insipidus nephrology consulted started treatment with desmopressin-resulting in hyponatremia # hyponatremia-severe hyponatremia developed down to 114 after does not present treatment initiated, upgraded to ICU, started on 3% normal saline and stopped desmopressin per Nephrology-return of sodium to 130s, and then restarted on does not present because of quick rise. Defer to Nephrology Geniotourinary: # on foleys Infectious Disease: # sepsis secondary to above: IV vancomycin and cefepime to broadly cover, check for MRSA, blood culture, sputum culture pending, growing staphylococcus gram +ve. added azithromycin. - alleged bodies are stopped, patient has resolved illness. # Nares +ve for MRSA: 5 days of mupirocin bid to continue. Patient received him Naprosyn and is resolved for nasal MRSA. Hematology & Oncology: # Leukopenia: WBC mildly low likely sepsis / septic shock related. predominant neutrophilia and lymphopenia. Leukopenia resolved. # mild thrombocytopenia, recovering: This morning platelets 134, mildly dropped, continues to drop to 100. thrombocytopenia has resolved. Endocrine: # Target BG 140-180 in hospital as per NICE-Sugar trial. MSK/Rheum #moderate muscle mass, high risk of ICU myopathy. Now working with with PT and doing well. diet: Regular diet DVT: Lovenox GI Prophylaxis: Protonix downgrade to tele today. Continue desmopressin per nephrology. Plan discussed with: Patient Date of Service: Sep 27, 2024 Billing Provider: CHRISTAL ABRAHAM MD Common Visit Codes: [id number] INP/OBS CARE(HIGH) CHRISTAL ABRAHAM MD Sep 27, 2024 18:09
[2024-09-27 19:34] LABS: Anion Gap 3 (5-15); Chloride 99 mmol/L (98-107); Potassium 4.5 mmol/L (3.5-5.1)
[2024-09-27 19:35] LABS: Calcium 9.4 mg/dL (8.7-10.4)
[2024-09-27 19:40] LABS: Blood Urea Nitrogen 9 mg/dL (9-23); Carbon Dioxide 33 mmol/L (20-31); Glucose 185 mg/dL (74-106); Sodium 135 mmol/L (136-145)
--- NOTE | 2024-09-27 21:26 | DVHPN2 ---
Progress Note - Dictate Date Seen: Sep 27, 2024 Has the PT tested + for MRSA If YES, has PT been informed?: No Medical Necessity Reason Pt with a Central, PICC or Fol: Yes The following are medically ne: Jones Catheter Reason for jones catheter: Strict I&O, Total Immobilization Subjective Patient seen and examined at bedside. Remains on supplemental oxygen Overnight events reviewed. vital signs Vital Sign Date Time Temp Pulse Resp B/P (MAP) Pulse Ox O2 Delivery O2 Flow Rate FiO2 09/27/24 20:00 19 100 Nasal Cannula* 3 32 09/27/24 20:00 103 09/27/24 19:42 120/57 09/27/24 16:43 97.5 97.5 Total Intake and Output 09/26/24 09/26/24 09/27/24 15:00 23:00 07:00 Intake Total 240 ml 460 ml 350 ml Output Total 1250 ml 950 ml Balance 240 ml -790 ml -600 ml medications Current Medications Medications Dose Ordered Sig/Elaine Route Start Time Stop Time Status Last Admin Dose Admin Albuterol 2.5 mg Q4HR NEB 09/14/24 02:00 09/27/24 19:16 2.5 MG Ipratropium [place] 0.5 mg Q4HR NEB 09/14/24 02:00 09/27/24 19:16 0.5 MG Pantoprazole Sodium 40 mg DAILY IV 09/14/24 10:00 09/27/24 10:05 40 MG Enoxaparin Sodium 40 mg DAILY SC 09/14/24 10:00 09/27/24 10:04 40 MG Diagnostic Test (Pha) 1 strip Q6HR 09/18/24 00:00 09/27/24 17:49 1 STRIP Insulin Human Regular FOLLOW SLIDING SCALE Q6HR SC 09/18/24 00:00 09/27/24 17:51 2 UNITS Dextrose 50 ml UD IV 09/18/24 00:00 09/25/24 06:16 50 ML Lorazepam 1 mg Q4HP PRN IV 09/20/24 13:30 09/26/24 23:42 1 MG Olanzapine 20 mg DAILY PO 09/21/24 10:00 09/27/24 10:04 20 MG Acetaminophen 650 mg Q6HPRN PRN GT 09/20/24 23:15 09/26/24 03:47 650 MG Prednisone 40 mg DAILY PO 09/22/24 10:00 09/27/24 10:04 40 MG Hydralazine HCl 10 mg Q6HP PRN IV 09/25/24 18:15 09/25/24 18:43 10 MG Ipratropium [place] 0.5 mg Q2HPRN PRN NEB 09/26/24 12:15 Mupirocin 1 applic BID EACHNOSTRI 09/26/24 22:00 10/01/24 21:59 09/27/24 09:28 1 APPLIC Desmopressin Acetate 1 mcg DAILY IV 09/28/24 10:00 objective Gen.: Patient lying in bed in no apparent distress. On supplemental oxygen. Head: Normocephalic, atraumatic. Eyes: EOMI/PERRLA. Ears: Normal hearing. Normal anatomy. Neck/trachea: Trachea midline, supple. Nose: Normal external anatomy. Mouth: Moist mucous membranes. Chest: Decreased air entry bilaterally. No wheezing or rhonchi. Cardiovascular: Positive S1, positive S2. Regular rate and rhythm. Abdomen: Positive bowel sounds in all 4 quadrants. Soft, non-tender, non- distended. : Deferred. Rectal: Deferred. Skin: Warm, dry. Intact. Extremities: 2+ radial pulses bilaterally. No lower extremity edema. Neuro: Awake, alert, oriented x3. No gross motor or sensory deficits. Cranial nerves II through XII intact. Gait not assessed. laboratory and microbiology Laboratory Tests 09/27/24 19:16 09/26/24 10:17 Test 09/27/24 19:16 Range/Units Serum Glucose 185 H 74-106 mg/dL Assessment/Plan Impression: Acute hypoxic respiratory failure Acute hypercarbic respiratory failure AE COPD Pneumonia Lung scarring Events: Remains on supplemental oxygen On 3 LPM via NC Continue to taper as tolerated Sodium now 136 Desmopressin Continue bronchodilators Steroids - Prednisone PO Incentive spirometry Accu-Cheks for glycemic monitoring Clinimix for nutritional support. DVT/GI prophylaxis Labs and imaging reviewed Rest of plan as outlined below. Plan: S/p extubation on 09/21/24 Supplemental oxygen, transitioned from high-flow O2 to nasal cannula Titrate to keep sats between 88-94% BiPAP at night Off sedation Pressors if necessary for hemodynamic support Titrate to keep mean arterial pressure greater than 65 mmHg. Continue bronchodilators. HOB elevation Aspiration precautions Monitor renal function Monitor electrolytes. Supplement as necessary. Monitor ins and outs. Maintain euvolemia. GI prophylaxis. DVT prophylaxis. Prognosis: Poor given patient's multiple co-morbidities. Condition: Critical Rest of plan per hospitalist and other consultants. A total of 35 minutes of critical care time was spent reviewing the patient record, examining the patient, making a diagnostic and therapeutic plan, discussing this plan with the medical personnel, following up on diagnostic studies and following the patient for clinical stability excluding any and all procedures. At least 50% of this time was spent in direct, [id number] contact. Thank you, Dr. Segundo, for allowing me to participate in this patient's care. Further recommendations will depend on the patient's clinical course. Please do not hesitate to contact me if you have any questions or concerns. This medical document was created using an electronic medical record system with [employer] dictation system. Although these documentations are being carefully reviewed, there may still be some phonetic and typographical changes. The errors are purely typographical, due to imperfection on the software program, and do not reflect any compromise in the patient's medical care. Dietary Evaluation Review Comments: 1) Continue to monitor pt PO intake to meet at least 75% of meals 2) Continue current plan of care Expected Outcomes/Goals: F/U in 3-5 days Plan discussed with: Other (SIL Elam) Critical Care Time(min): 35 BRITANY MEDRANO MD Sep 27, 2024 21:26
[2024-09-28] VITALS (20 sets, daily range): BP systolic 103–130; BP diastolic 50–75; PULSE 70–110; RESP 16–24; TEMP 97.5–98.6; O2SAT 93–100
[2024-09-28 07:23] LABS: Basophils # (auto) 0 10 ^3/uL (0-0.2); Basophils % (auto) 0.3 % (0.0-2.0); Eosinophils # (auto) 0.1 10 ^3/uL (0-0.8); Eosinophils % (auto) 0.8 % (0.0-7.0); Hematocrit 41.3 % (36.0-46.0); Hemoglobin 13.5 g/dL (12.2-16.2); Lymphocytes # (auto) 1.8 10 ^3/uL (0.4-5.4); Mean Corpuscular Hemoglobin 30.4 pg (28.0-32.0); Mean Corpuscular Hgb Conc. 32.8 g/dL (32.0-36.0); Mean Corpuscular Volume 92.7 fL (80.0-100.0); Monocytes # (auto) 0.7 10 ^3/uL (0-1.3); Monocytes % (auto) 6.5 % (0.0-12.0); Neutrophils # (auto) 7.6 10 ^3/uL (1.6-8.6); Neutrophils % (auto) 74.4 % (37.0-80.0); Nucleated Red Blood Cells % 0.1 %; Platelet Count (auto) 154 10^3/uL (140-450); Red Blood Cells 4.45 10^6/uL (4.0-5.20); Red Cell Distribution Width 16.2 % (11.8-14.3); White Blood Cell 10.2 10^3/uL (4.4-10.8)
[2024-09-28 07:46] LABS: Alanine Aminotransferase 24 U/L (7-40); Alkaline Phosphatase 76 U/L (46-116); Anion Gap 5 (5-15); Aspartate Aminotransferase 18 U/L (13-40); BUN/Creatinine Ratio 20.5 (10.0-20.0); Bilirubin, Total 0.8 mg/dL (0.2-1.0); Calcium 9.9 mg/dL (8.7-10.4); Chloride 99 mmol/L (98-107); Glucose 87 mg/dL (74-106); Potassium 4.4 mmol/L (3.5-5.1); Sodium 138 mmol/L (136-145)
[2024-09-28 07:47] LABS: Blood Urea Nitrogen 8 mg/dL (9-23); Carbon Dioxide 34 mmol/L (20-31); Total Protein 5.4 g/dL (5.7-8.2)
--- NOTE | 2024-09-28 08:35 | DVHPNRES ---
Progress Note Date Seen: Sep 28, 2024 Resident Creating Document: TONY THAKKAR RESIDENT Has the PT tested + for MRSA If YES, has PT been informed?: No Medical Necessity Reason Pt with a Central, PICC or Fol: Yes The following are medically ne: Jones Catheter Reason for jones catheter: Strict I&O, Total Immobilization Subjective Review of Systems Ms. White, 54-year-old female with a history of COPD on home oxygen (2-4 L), schizophrenia, and hypertension was brought to the ED with shortness of breath and cough for one day. She was found cyanotic and struggling to breathe at her [facility], with SpO2 in the mid/low 80s. En route, she received a DuoNeb treatment and 8 L of oxygen via nasal cannula. She denies fever, flu-like symptoms, chest pain, dizziness, diaphoresis, abdominal pain, nausea, vomiting, or changes in bowel and bladder movements. At presentation patient was found to have a hypoxic and hypercapnic respiratory failure on BiPAP it worsened with more of CO2 retention with worsening respiratory acidosis needing intubation at ED. patient was also found to have possible infection with aspiration pneumonia and presented in sepsis. Septic shock was treated with IV fluid and Levophed. Patient improved significantly overnight. Patient remains hemodynamically stable. Close to discharge as soon as desmopressin for central DI is treated and managed well. Objective vital signs Vital Sign Date Time Temp Pulse Resp B/P (MAP) Pulse Ox O2 Delivery O2 Flow Rate FiO2 09/28/24 05:59 103 18 100 09/28/24 05:54 Nasal Cannula* 4 36 09/28/24 05:00 98.6 130/74 (92) 98.6 Total Intake and Output 09/27/24 09/27/24 09/28/24 15:00 23:00 07:00 Intake Total 480 ml 1300 ml 200 ml Output Total 550 ml 2800 ml Balance 480 ml 750 ml -2600 ml medications Current Medications Medications Dose Ordered Sig/Elaine Route Start Time Stop Time Status Last Admin Dose Admin Albuterol 2.5 mg Q4HR NEB 09/14/24 02:00 09/28/24 05:54 2.5 MG Ipratropium [place] 0.5 mg Q4HR NEB 09/14/24 02:00 09/28/24 05:54 0.5 MG Pantoprazole Sodium 40 mg DAILY IV 09/14/24 10:00 09/27/24 10:05 40 MG Enoxaparin Sodium 40 mg DAILY SC 09/14/24 10:00 09/27/24 10:04 40 MG Diagnostic Test (Pha) 1 strip Q6HR 09/18/24 00:00 09/28/24 05:23 1 STRIP Insulin Human Regular FOLLOW SLIDING SCALE Q6HR SC 09/18/24 00:00 09/27/24 17:51 2 UNITS Dextrose 50 ml UD IV 09/18/24 00:00 09/25/24 06:16 50 ML Lorazepam 1 mg Q4HP PRN IV 09/20/24 13:30 09/26/24 23:42 1 MG Olanzapine 20 mg DAILY PO 09/21/24 10:00 09/27/24 10:04 20 MG Acetaminophen 650 mg Q6HPRN PRN GT 09/20/24 23:15 09/28/24 05:22 650 MG Prednisone 40 mg DAILY PO 09/22/24 10:00 09/27/24 10:04 40 MG Hydralazine HCl 10 mg Q6HP PRN IV 09/25/24 18:15 09/25/24 18:43 10 MG Ipratropium [place] 0.5 mg Q2HPRN PRN NEB 09/26/24 12:15 Mupirocin 1 applic BID EACHNOSTRI 09/26/24 22:00 10/01/24 21:59 09/27/24 22:26 1 APPLIC Desmopressin Acetate 1 mcg DAILY IV 09/28/24 10:00 Examination GEN: Acute distress, alert and orient times 3-4 CV: RRR, no m/r/g. LUNGS: clear lungs ABD: Soft, normoactive BS, no masses or organomegaly. EXT: skin Warm, well perfused. no rashes. No clubbing, cyanosis, or edema. NEURO: No focal deficits, A&O x3 laboratory and microbiology Laboratory Tests 09/28/24 05:01 Test 09/28/24 05:01 Range/Units Serum Glucose 87 74-106 mg/dL Microbiology Date/Time Source Procedure Growth Status 09/25/24 16:17 Nose MRSA Screen - Final Methicillin Resistant S.aureus Complete 09/25/24 12:04 Stool Clostridium difficile Toxin Assay - Final Complete 09/15/24 02:00 Sputum Expectorated Sputum Gram Stain - Final Complete 09/15/24 02:00 Respiratory Culture - Final Methicillin Resistant S.aureus Complete 09/13/24 21:11 Blood Blood Culture - Final NO GROWTH AFTER 5 DAYS OF INCUBATION. Complete Problem List/Assessment/Plan Problem List/Assessment/Plan # Acute on chronic respiratory failure s/p extubation due to # Acute exacerbation of COPD # Pneumonia probable MRSA #Schizophrenia #Central diabetes insipidus #Hypernatremia due to above #Severe Hyponatremia resolved #NSTEMI type 2 due to above Regular diet Aspiration precautions DC central line and jones DC steroids No need of insulin hba1c normal Switch desmopressin IV to nasal per Dr Carreon Increase olanzapine 40 mg dc hydralazine [facility] home health already approved DVT: Lovenox GI Prophylaxis: Protonix Case discussed with Dr Monet for 23 min Plan discussed with: Patient, Other (rn) My Orders My Orders Orders - TONY THAKKAR Procedure Category Date Status Time Comprehensive LAB 09/28/24 In Process Metabolic Panel 06:46 Dietary Evaluation Review Comments: 1) Continue to monitor pt PO intake to meet at least 75% of meals 2) Continue current plan of care Expected Outcomes/Goals: F/U in 3-5 days Date of Service: Sep 28, 2024 Billing Provider: GURU MONET MD Common Visit Codes: [id number] INP/OBS CARE(HIGH) TONY THAKKAR RESIDENT Sep 28, 2024 08:35 GURU MONET MD Sep 29, 2024 16:24
[2024-09-28] MEDS ORDERED: DEXTROSE (50%) 50ML SYRG IV PRN (11:30)
[2024-09-28] MEDS: DESMOPRESSIN ACET 4 MCG/1 ML AMPULE IV SCH (11:58)
[2024-09-28] MEDS: ACCU-CHEK COMFORT CURVE STRIP VI SCH (12:03)
[2024-09-28] MEDS: InsuLIN REG 1unit/0.01ml Soln (100units/ml) SC SCH (12:03)
--- NOTE | 2024-09-28 12:48 | DVHPN2 ---
Progress Note Date Seen: Sep 28, 2024 Has the PT tested + for MRSA If YES, has PT been informed?: No Medical Necessity Reason Pt with a Central, PICC or Fol: Yes The following are medically ne: Jones Catheter Reason for jones catheter: Strict I&O, Total Immobilization Subjective Review of Systems: RESPIRATORY:Abnormal Objective vital signs Vital Sign Date Time Temp Pulse Resp B/P (MAP) Pulse Ox O2 Delivery O2 Flow Rate FiO2 09/28/24 12:35 98.4 110 18 103/53 (70) 94 98.4 09/28/24 09:33 Nasal Cannula 2.0 09/28/24 09:33 28 Total Intake and Output 09/27/24 09/27/24 09/28/24 15:00 23:00 07:00 Intake Total 480 ml 1300 ml 200 ml Output Total 550 ml 2800 ml Balance 480 ml 750 ml -2600 ml medications Current Medications Medications Dose Ordered Sig/Elaine Route Start Time Stop Time Status Last Admin Dose Admin Albuterol 2.5 mg Q4HR NEB 09/14/24 02:00 09/28/24 09:33 2.5 MG Ipratropium [place] 0.5 mg Q4HR NEB 09/14/24 02:00 09/28/24 09:33 0.5 MG Pantoprazole Sodium 40 mg DAILY IV 09/14/24 10:00 09/28/24 09:05 40 MG Enoxaparin Sodium 40 mg DAILY SC 09/14/24 10:00 09/28/24 09:06 40 MG Lorazepam 1 mg Q4HP PRN IV 09/20/24 13:30 09/26/24 23:42 1 MG Olanzapine 20 mg DAILY PO 09/21/24 10:00 09/28/24 09:06 20 MG Acetaminophen 650 mg Q6HPRN PRN GT 09/20/24 23:15 09/28/24 05:22 650 MG Prednisone 40 mg DAILY PO 09/22/24 10:00 09/28/24 09:06 40 MG Hydralazine HCl 10 mg Q6HP PRN IV 09/25/24 18:15 09/25/24 18:43 10 MG Ipratropium [place] 0.5 mg Q2HPRN PRN NEB 09/26/24 12:15 Mupirocin 1 applic BID EACHNOSTRI 09/26/24 22:00 10/01/24 21:59 09/28/24 09:07 1 APPLIC Desmopressin Acetate 1 mcg DAILY IV 09/28/24 10:00 09/28/24 11:58 1 MCG Diagnostic Test (Pha) 1 strip Q6HP 09/28/24 12:00 09/28/24 12:03 1 STRIP Insulin Human Regular Q6HP SC 09/28/24 12:00 09/28/24 12:03 4 UNITS Dextrose 50 ml UD PRN IV 09/28/24 11:30 Examination: ABDOMEN:Abnormal laboratory and microbiology Laboratory Tests 09/28/24 05:01 Test 09/28/24 05:01 Range/Units Serum Glucose 87 74-106 mg/dL Microbiology Date/Time Source Procedure Growth Status 09/25/24 16:17 Nose MRSA Screen - Final Methicillin Resistant S.aureus Complete 09/25/24 12:04 Stool Clostridium difficile Toxin Assay - Final Complete 09/15/24 02:00 Sputum Expectorated Sputum Gram Stain - Final Complete 09/15/24 02:00 Respiratory Culture - Final Methicillin Resistant S.aureus Complete 09/13/24 21:11 Blood Blood Culture - Final NO GROWTH AFTER 5 DAYS OF INCUBATION. Complete Problem List/Assessment/Plan Problem List/Assessment/Plan Central DI - resumed desmopressin Acute hyponatremia - resolved Status post extubation hypoxic respiratory failure MRSA PNA obtain urine osm continue desmopressin from renal standpoint can followup outpatient Plan discussed with: Patient My Orders My Orders Orders - ARMIDA LEBLANC MD Procedure Category Date Status Time Osmolality Urine LAB 09/28/24 Logged 09:46 Dietary Evaluation Review Comments: 1) Continue to monitor pt PO intake to meet at least 75% of meals 2) Continue current plan of care Expected Outcomes/Goals: F/U in 3-5 days ARMIDA LEBLANC MD Sep 28, 2024 12:48
[2024-09-28] MEDS ORDERED: guaiFENesin-DM 100/10mg/5ml SYR PO PRN (13:00)
[2024-09-28] MEDS ORDERED: OLANZapine 5 MG TAB PO SCH (15:00)
--- NOTE | 2024-09-28 22:41 | DVHPN2 ---
Progress Note - Dictate Date Seen: Sep 28, 2024 Has the PT tested + for MRSA If YES, has PT been informed?: No Medical Necessity Reason Pt with a Central, PICC or Fol: Yes The following are medically ne: Jones Catheter Reason for jones catheter: Strict I&O, Total Immobilization Subjective Patient seen and examined at bedside. Remains on supplemental oxygen Overnight events reviewed. vital signs Vital Sign Date Time Temp Pulse Resp B/P (MAP) Pulse Ox O2 Delivery O2 Flow Rate FiO2 09/28/24 22:31 98 Nasal Cannula* 2 28 09/28/24 22:31 104 16 09/28/24 16:55 98.6 127/75 (92) 98.6 Total Intake and Output 09/27/24 09/27/24 09/28/24 15:00 23:00 07:00 Intake Total 480 ml 1300 ml 200 ml Output Total 550 ml 2800 ml Balance 480 ml 750 ml -2600 ml medications Current Medications Medications Dose Ordered Sig/Elaine Route Start Time Stop Time Status Last Admin Dose Admin Albuterol 2.5 mg Q4HR NEB 09/14/24 02:00 09/28/24 22:31 2.5 MG Ipratropium [place] 0.5 mg Q4HR NEB 09/14/24 02:00 09/28/24 22:32 0.5 MG Pantoprazole Sodium 40 mg DAILY IV 09/14/24 10:00 09/28/24 09:05 40 MG Enoxaparin Sodium 40 mg DAILY SC 09/14/24 10:00 09/28/24 09:06 40 MG Lorazepam 1 mg Q4HP PRN IV 09/20/24 13:30 09/26/24 23:42 1 MG Acetaminophen 650 mg Q6HPRN PRN GT 09/20/24 23:15 09/28/24 05:22 650 MG Ipratropium [place] 0.5 mg Q2HPRN PRN NEB 09/26/24 12:15 Mupirocin 1 applic BID EACHNOSTRI 09/26/24 22:00 10/01/24 21:59 09/28/24 09:07 1 APPLIC Guaifenesin/ Dextromethorphan 10 ml Q4HP PRN PO 09/28/24 13:00 Desmopressin Acetate 1 spr DAILY NA 09/29/24 10:00 Olanzapine 40 mg DAILY PO 09/29/24 10:00 objective Gen.: Patient lying in bed in no apparent distress. On supplemental oxygen. Head: Normocephalic, atraumatic. Eyes: EOMI/PERRLA. Ears: Normal hearing. Normal anatomy. Neck/trachea: Trachea midline, supple. Nose: Normal external anatomy. Mouth: Moist mucous membranes. Chest: Decreased air entry bilaterally. No wheezing or rhonchi. Cardiovascular: Positive S1, positive S2. Regular rate and rhythm. Abdomen: Positive bowel sounds in all 4 quadrants. Soft, non-tender, non- distended. : Deferred. Rectal: Deferred. Skin: Warm, dry. Intact. Extremities: 2+ radial pulses bilaterally. No lower extremity edema. Neuro: Awake, alert, oriented x3. No gross motor or sensory deficits. Cranial nerves II through XII intact. Gait not assessed. laboratory and microbiology Laboratory Tests 09/28/24 05:01 Test 09/28/24 05:01 Range/Units Serum Glucose 87 74-106 mg/dL Assessment/Plan Impression: Acute hypoxic respiratory failure Acute hypercarbic respiratory failure AE COPD Pneumonia Lung scarring Events: Remains on supplemental oxygen On 2 LPM via NC Continue to taper as tolerated Obtain CXR in AM to assess for interval changes Sodium is now 138 Continue bronchodilators Steroids - Prednisone PO Antitussive PRN cough. Incentive spirometry Accu-Cheks for glycemic monitoring Clinimix for nutritional support. DVT/GI prophylaxis Disposition per hospitalist. Labs and imaging reviewed Rest of plan as outlined below. Plan: S/p extubation on 09/21/24 Supplemental oxygen, transitioned from high-flow O2 to nasal cannula On 2 LPM via NC Titrate to keep sats between 88-94% BiPAP at night Off sedation Pressors if necessary for hemodynamic support Titrate to keep mean arterial pressure greater than 65 mmHg. Continue bronchodilators. HOB elevation Aspiration precautions Monitor renal function Monitor electrolytes. Supplement as necessary. Monitor ins and outs. Maintain euvolemia. GI prophylaxis. DVT prophylaxis. Prognosis: Guarded given patient's multiple co-morbidities. Rest of plan per hospitalist and other consultants. Thank you, Dr. Segundo, for allowing me to participate in this patient's care. Further recommendations will depend on the patient's clinical course. Please do not hesitate to contact me if you have any questions or concerns. This medical document was created using an electronic medical record system with [employer] dictation system. Although these documentations are being carefully reviewed, there may still be some phonetic and typographical changes. The errors are purely typographical, due to imperfection on the software program, and do not reflect any compromise in the patient's medical care. Dietary Evaluation Review Comments: 1) Continue to monitor pt PO intake to meet at least 75% of meals 2) Continue current plan of care Expected Outcomes/Goals: F/U in 3-5 days Plan discussed with: Patient, Other (SIL Thompson) BRITANY MEDRANO MD Sep 28, 2024 22:41
[2024-09-29] VITALS (14 sets, daily range): BP systolic 108–126; BP diastolic 52–87; PULSE 92–127; RESP 16–20; TEMP 97.3–98.2; O2SAT 92–100
[2024-09-29 06:49] LABS: Basophils # (auto) 0 10 ^3/uL (0-0.2); Basophils % (auto) 0.3 % (0.0-2.0); Eosinophils # (auto) 0.1 10 ^3/uL (0-0.8); Eosinophils % (auto) 1.2 % (0.0-7.0); Hematocrit 37.4 % (36.0-46.0); Hemoglobin 12.2 g/dL (12.2-16.2); Lymphocytes # (auto) 1.6 10 ^3/uL (0.4-5.4); Lymphocytes % (auto) 27.6 % (10.0-50.0); Mean Corpuscular Hemoglobin 30.1 pg (28.0-32.0); Mean Corpuscular Hgb Conc. 32.7 g/dL (32.0-36.0); Mean Corpuscular Volume 92.1 fL (80.0-100.0); Monocytes # (auto) 0.4 10 ^3/uL (0-1.3); Neutrophils # (auto) 3.7 10 ^3/uL (1.6-8.6); Neutrophils % (auto) 63.9 % (37.0-80.0); Nucleated Red Blood Cells % 0.1 %; Platelet Count (auto) 135 10^3/uL (140-450); Red Blood Cells 4.06 10^6/uL (4.0-5.20); Red Cell Distribution Width 16.7 % (11.8-14.3); White Blood Cell 5.8 10^3/uL (4.4-10.8)
[2024-09-29 06:57] LABS: Alanine Aminotransferase 18 U/L (7-40); Albumin 3.6 g/dL (3.2-4.8); Alkaline Phosphatase 70 U/L (46-116); Anion Gap 3 (5-15); Calcium 10.1 mg/dL (8.7-10.4); Chloride 100 mmol/L (98-107); Glucose 92 mg/dL (74-106); Potassium 3.6 mmol/L (3.5-5.1); Sodium 143 mmol/L (136-145)
[2024-09-29 06:59] LABS: Bilirubin, Total 0.7 mg/dL (0.2-1.0)
[2024-09-29 07:00] LABS: Aspartate Aminotransferase 8 U/L (13-40); Blood Urea Nitrogen 6 mg/dL (9-23); Carbon Dioxide 40 mmol/L (20-31); Total Protein 5.2 g/dL (5.7-8.2)
--- NOTE | 2024-09-29 07:05 | DVH ---
CHEST RADIOGRAPH Indication: Breathing deminished Technique: Single frontal view of the chest was obtained Comparison: XY CHEST XRAY 1 VIEW on DOS: 09/22/24 FINDINGS: Lines and Tubes: None Lungs: No focal consolidation. Pleura: No effusion. No pneumothorax. Cardiomediastinal contours: Unremarkable Bones: No acute osseous abnormality. IMPRESSION: 1. No acute cardiopulmonary disease.
[2024-09-29] MEDS: DESMOPRESSIN ACET 0.01% 5ML NASAL SPRY SCH (08:58)
[2024-09-29] MEDS: OLANZapine 5 MG TAB PO SCH (08:59)
--- NOTE | 2024-09-29 11:24 | DVHPN2 ---
Progress Note Date Seen: Sep 29, 2024 Has the PT tested + for MRSA If YES, has PT been informed?: No Medical Necessity Reason Pt with a Central, PICC or Fol: Yes The following are medically ne: Jones Catheter Reason for jones catheter: Strict I&O, Total Immobilization Objective vital signs Vital Sign Date Time Temp Pulse Resp B/P (MAP) Pulse Ox O2 Delivery O2 Flow Rate FiO2 09/29/24 09:00 97.8 104 17 126/87 (100) 99 97.8 09/29/24 07:47 Nasal Cannula* 2 28 Total Intake and Output 09/28/24 09/28/24 09/29/24 15:00 23:00 07:00 Intake Total 240 ml 1600 ml 300 ml Output Total 2300 ml Balance 240 ml -700 ml 300 ml medications Current Medications Medications Dose Ordered Sig/Elaine Route Start Time Stop Time Status Last Admin Dose Admin Albuterol 2.5 mg Q4HR NEB 09/14/24 02:00 09/29/24 07:47 2.5 MG Ipratropium [place] 0.5 mg Q4HR NEB 09/14/24 02:00 09/29/24 07:47 0.5 MG Pantoprazole Sodium 40 mg DAILY IV 09/14/24 10:00 09/29/24 08:57 40 MG Enoxaparin Sodium 40 mg DAILY SC 09/14/24 10:00 09/29/24 08:58 40 MG Lorazepam 1 mg Q4HP PRN IV 09/20/24 13:30 09/29/24 00:18 1 MG Acetaminophen 650 mg Q6HPRN PRN GT 09/20/24 23:15 09/28/24 05:22 650 MG Ipratropium [place] 0.5 mg Q2HPRN PRN NEB 09/26/24 12:15 Mupirocin 1 applic BID EACHNOSTRI 09/26/24 22:00 10/01/24 21:59 09/29/24 09:00 1 APPLIC Guaifenesin/ Dextromethorphan 10 ml Q4HP PRN PO 09/28/24 13:00 Desmopressin Acetate 1 spr DAILY NA 09/29/24 10:00 Olanzapine 40 mg DAILY PO 09/29/24 10:00 09/29/24 08:59 40 MG laboratory and microbiology Laboratory Tests 09/29/24 05:09 Test 09/29/24 05:09 Range/Units Serum Glucose 92 74-106 mg/dL Microbiology Date/Time Source Procedure Growth Status 09/25/24 16:17 Nose MRSA Screen - Final Methicillin Resistant S.aureus Complete 09/25/24 12:04 Stool Clostridium difficile Toxin Assay - Final Complete 09/15/24 02:00 Sputum Expectorated Sputum Gram Stain - Final Complete 09/15/24 02:00 Respiratory Culture - Final Methicillin Resistant S.aureus Complete 09/13/24 21:11 Blood Blood Culture - Final NO GROWTH AFTER 5 DAYS OF INCUBATION. Complete Problem List/Assessment/Plan Problem List/Assessment/Plan Central DI - resumed desmopressin Acute hyponatremia - resolved Status post extubation hypoxic respiratory failure MRSA PNA obtain urine osm noted last night continue desmopressin convert to nasal dose pending today from renal standpoint can followup outpatient Plan discussed with: Patient Dietary Evaluation Review Comments: 1) Continue to monitor pt PO intake to meet at least 75% of meals 2) Continue current plan of care Expected Outcomes/Goals: F/U in 3-5 days ARMIDA LEBLANC MD Sep 29, 2024 11:24
[2024-09-29] MEDS ORDERED: OLAN1TAB7 PO (11:28)
[2024-09-29] MEDS ORDERED: ACET-2058 PO (11:28)
[2024-09-29] MEDS ORDERED: DESNSL NAS (11:28)
--- NOTE | 2024-09-29 13:20 | DVHDSRES ---
Discharge Summary Date of Admission Resident Creating Document: TONY THAKKAR RESIDENT Sep 13, 2024 at 22:55 Date of Discharge: Sep 25, 2024 Admitting Diagnosis acute respiratory failure Labs/Diagnostic Data: Laboratory Results Test 09/29/24 05:09 09/28/24 23:59 09/28/24 16:41 09/26/24 03:25 White Blood Count 5.8 10^3/uL (4.4-10.8) Red Blood Count 4.06 10^6/uL (4.0-5.20) Hemoglobin 12.2 g/dL (12.2-16.2) Hematocrit 37.4 % (36.0-46.0) Mean Corpuscular Volume 92.1 fL (80.0-100.0) Mean Corpuscular Hemoglobin 30.1 pg (28.0-32.0) Mean Corpuscular Hemoglobin Concent 32.7 g/dL (32.0-36.0) Red Cell Distribution Width 16.7 % (11.8-14.3) Platelet Count 135 10^3/uL (140-450) Mean Platelet Volume 8.5 fL (6.9-10.8) Neutrophils (%) (Auto) 63.9 % (37.0-80.0) Lymphocytes (%) (Auto) 27.6 % (10.0-50.0) Monocytes (%) (Auto) 7.0 % (0.0-12.0) Eosinophils (%) (Auto) 1.2 % (0.0-7.0) Basophils (%) (Auto) 0.3 % (0.0-2.0) Neutrophils # (Auto) 3.7 10 ^3/uL (1.6-8.6) Lymphocytes # (Auto) 1.6 10 ^3/uL (0.4-5.4) Monocytes # (Auto) 0.4 10 ^3/uL (0-1.3) Eosinophils # (Auto) 0.1 10 ^3/uL (0-0.8) Basophils # (Auto) 0 10 ^3/uL (0-0.2) Nucleated Red Blood Cells 0.1 % Sodium Level 143 mmol/L (136-145) Potassium Level 3.6 mmol/L (3.5-5.1) Chloride Level 100 mmol/L (98-107) Carbon Dioxide Level 40 mmol/L (20-31) Anion Gap 3 (5-15) Blood Urea Nitrogen 6 mg/dL (9-23) Creatinine 0.50 mg/dL (0.550-1.02) Glomerular Filtration Rate Calc 111 mL/min (>90) BUN/Creatinine Ratio 12.0 (10.0-20.0) Serum Glucose 92 mg/dL (74-106) Calcium Level 10.1 mg/dL (8.7-10.4) Total Bilirubin 0.7 mg/dL (0.2-1.0) Aspartate Amino Transferase (AST) 8 U/L (13-40) Alanine Aminotransferase (ALT) 18 U/L (7-40) Alkaline Phosphatase 70 U/L (46-116) Total Protein 5.2 g/dL (5.7-8.2) Albumin 3.6 g/dL (3.2-4.8) Urine Osmolality 190 mOsm/kg POC Glucose 146 mg/dl (70-106) Urine Color Straw (Yellow) Urine Clarity Clear (Clear) Urine pH 7.0 (5.0-9.0) Urine Specific Ferguson 1.002 (1.001-1.035) Urine Protein Negative (Negative) Urine Ketones Negative (Negative) Urine Blood Trace /uL (Negative) Urine Nitrite Negative (Negative) Urine Bilirubin Negative (Negative) Urine Urobilinogen Normal mg/dL (Negative) Urine Leukocyte Esterase 3+ /uL (Negative) Urine RBC <1 /hpf (0 - 4) Urine WBC 21 /hpf (0 - 5) Urine WBC Clumps Present /hpf (None Seen) Urine Squamous Epithelial Cells None seen /hpf (<5) Urine Bacteria None seen /hpf (None Seen) Urine Creatinine 6.60 mg/dL (30.0-125.0) Urine Sodium 32 mmol/L (40-220) Urine Glucose Normal mg/dL (Normal) Test 09/25/24 20:08 09/25/24 09:08 09/24/24 13:10 09/23/24 16:57 Serum Osmolality 248 mOsm/kg (278-298) Vancomycin Level Trough 3.3 ug/mL (5-10) Blood Gas Specimen Type Arterial Blood Gas Sample Site Right radial Blood Gas Patient Temperature 37.0 Arterial Blood Date Drawn [id number] Arterial Blood pH 7.195 (7.350-7.450) Arterial Blood Partial Pressure CO2 33.4 mmHg (32.0-45.0) Arterial Blood Partial Pressure O2 91.4 mmHg (83.0-108.0) Arterial Blood HCO3 12.6 mmol/L (21.0-28.0) Arterial Blood Oxygen Saturation 94.2 % (94.0-98.0) Arterial Blood Base Excess -14.4 mmol/L (-2.0-3.0) Arterial Blood Oxyhemoglobin 93.8 % (94.0-98.0) Arterial Blood Carboxyhemoglobin 0.1 % (0.5-1.5) Arterial Blood Methemoglobin 0.3 % (0.0-1.5) Clay Test Modified Blood Gas Total Hemoglobin 12.20 g/dL (12.0-16.0) Blood Gas Set Respiration Rate 20.0 Blood Gas Modality Vent - ac Blood Gas Spontaneous Rate 31 FiO2 % 100.0 Blood Gas Tidal Volume 400.0 Blood Gas Inspiratory Pressure 36.0 Blood Gas PEEP or CPAP 8.0 Bl Gas Inspiratory/Expiratory Ratio 1:1.4 Specimen Drawn By rigoberto barrios Blood Gas Critical Value Read Back yes Blood Gas Notified Whom aníbal black Blood Gas Notified Time [id number] Blood Gas Notified By [facility] rt Test 09/23/24 03:09 09/22/24 16:40 09/22/24 16:14 09/22/24 13:35 Phosphorus Level 2.2 mg/dL (2.4-5.1) Magnesium Level 1.7 mg/dL (1.6-2.6) Blood Gas Spontaneous Tidal Volume 350 Blood Gas EPAP 5 Blood Gas IPAP 12 Urine Protein/Creatinine Ratio 1.24 Urine Potassium 6 mmol/L (12-62) Urine Total Protein 9.6 mg/dL (1-14) Body Fluid Urea Nitrogen 130 mg/dL (Not Estab.) Blood Gas Liter Flow 15.00 Test 09/21/24 08:43 09/21/24 03:02 09/20/24 03:27 09/19/24 03:20 Blood Gas Pressure Support 8 Triglycerides Level 71 mg/dL (< 150) Random Vancomycin Level 6.9 ug/mL (5-10) Estimated GFR () 213 mL/min Estimated GFR (Non- 176 mL/min Test 09/14/24 15:37 09/14/24 11:43 09/13/24 23:48 09/13/24 23:25 Lactic Acid Level 1.1 mmol/L (0.4-2.0) Plasma/Serum Blood Alcohol < 3.0 mg/dL (<10) Urine Hyaline Casts Few /lpf (0 - 2) Urine Opiates Screen Neg (NEGATIVE) Urine Fentanyl Screen Neg (NEGATIVE) Urine Barbiturates Screen Neg (NEGATIVE) Urine Phencyclidine Screen Neg (NEGATIVE) Urine Amphetamines Screen Neg (NEGATIVE) Urine Benzodiazepines Screen Neg (NEGATIVE) Urine Cocaine Screen Neg (NEGATIVE) Urine Cannabinoids Screen Neg (NEGATIVE) Troponin I High Sensitivity 136 ng/L (</=34) Test 09/13/24 20:20 09/13/24 20:02 09/13/24 19:56 Influenza Type A Antigen Negative (Negative) Influenza Type B Antigen Negative (Negative) SARS-CoV-2 Antigen (Rapid) Negative (NEGATIVE) Venous Blood pH 7.217 (7.320-7.430) Venous Blood pCO2 at Patient Temp 79.3 mmHg (38.0-54.0) Venous Blood pO2 at Patient Temp 87.4 mmHg (23.0-48.0) Venous Blood HCO3 31.5 mmol/L (22.0-29.0) Venous Bld O2 Saturation (Measured) 94.9 % (60.0-85.0) Venous Blood Base Excess 1.3 mmol/L (-2.0-3.0) Venous Blood Total Hemoglobin 14.2 g/dL (12.0-16.0) Venous Blood Oxyhemoglobin 92.1 % (0.0-79.0) Venous Blood Carboxyhemoglobin 2.4 % (0.5-1.5) Venous Blood Methemoglobin 0.6 % (0.0-1.5) Hemoglobin A1c 5.6 % A1C (<5.7) B-Type Natriuretic Peptide 128.53 pg/mL (0-100) Other Laboratory Tests 09/29/24 05:09 Brief Hx & Hospital Course: A 54-year-old female with a history of COPD on home oxygen, schizophrenia, and hypertension presented with acute respiratory failure . She was initially found to be cyanotic at her longterm with SpO2 in the mid-80s and subsequently admitted with worsening hypoxic and hypercapnic respiratory failure. Workup revealed probable MRSA aspiration pneumonia, and she was treated for sepsis with IV fluids and broad-spectrum antibiotics (vancomycin 9 days). Requiring intubation from sep 14 to sep 21 2024. After that patient developed diabetes insipidus with hypernatremia, which was managed with desmopressin, leading to hyponatremia which required a new ICU readmission due to 3% saline administration, leading to an improvement in her sodium levels to 143 mEq/L. The patients condition stabilized with resolution of her respiratory failure and correction of electrolyte imbalance. She was transitioned from iv desmopressin to nasal she is going to be discharge to an assisted living facility with home health PT services in place. Pt is advised to f/u in DC clinic and f/u psychiatrist and nephrology. GEN: Acute distress, alert and orient times 3-4 CV: RRR, no m/r/g. LUNGS: clear lungs ABD: Soft, normoactive BS, no masses or organomegaly. EXT: skin Warm, well perfused. no rashes. No clubbing, cyanosis, or edema. 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 Cathleen Khalil time-out was completed verifying correct patient, procedure, site, positioning, and special equipment if applicable. The patient was placed in a dependent position appropriate for central line placement based on the vein to be cannulated. The patients rt neck was prepped and draped in sterile fashion. 1% Lidocaine was used to anesthetize the surrounding skin area. A triple lumen yvonne catheter was introduced into the the rt internal jugular using the Seldinger technique <and under ultrasound guidance>. The catheter was threaded smoothly over the guide wire and appropriate blood return was obtained. Each lumen of the catheter was evacuated of air and flushed with sterile saline. The catheter was then sutured in place to the skin and a sterile dressing applied. Perfusion to the extremity distal to the point of catheter insertion was checked and found to be adequate. Dr. Connolly was present for the entire procedure. Estimated Blood Loss: <10 ml The patient tolerated the procedure well and there were no complications. Date of Service: Sep 14, 2024 Billing Provider: CHRISTAL ABRAHAM MD Common Visit Codes: PROCEDURE ONLY Procedure Codes: 40245-PIVFLJ NON-TUNNEL CV CATH Indication: Respiratory Insufficiency Prep: Preoxygenation Pretreated with: Sedation Medicated with: Succinylcholine, Atracurium Intubation Approach: Orotracheal Notes Endotracheal Intubation Date: 09/14/24 Time: 8:30 AM Indication: Respiratory Distress Resident: Dr. Hart Attending: Dr. Pichardo A time-out was completed verifying correct patient, procedure, site, positioning, and special equipment if applicable. The patient was placed in a flat position. Sedation was obtained using rocuronium 80 mg, and additionally with Etomidate 20mg . The patient was easily ventilated using an ambu bag. The GL[employer]/ MAC 3 BLADE was used and inserted into the oropharynx at which time there was a Grade 1 view of the vocal cords. A 7.5-greenlandic endotracheal tube was inserted and visualized going through the vocal cords. The stylette was removed. Colorimetric change was visualized on the CO2 meter. Breath sounds were heard in both lung renee equally. The endotracheal tube was placed at 23 cm, measured at the teeth. <Attending/Resident> was present for the entire procedure. A chest x-ray was ordered to assess for pneumothorax and verify endotracheal tube placement. Estimated Blood Loss: < 5 ml The patient tolerated the procedure well and there were no complications. Condition at Discharge: Fair Final Diagnosis/Problems List # Acute on chronic respiratory failure s/p extubation due to # Acute exacerbation of COPD # Pneumonia probable MRSA #Schizophrenia #Central diabetes insipidus #Hypernatremia due to above #Severe Hyponatremia resolved #NSTEMI type 2 due to above Discharge Disposition: Assisted Living Facility ([facility]) Discharge Instruct/Medications Diet: Regular Activity: No Restrictions, As Tolerated Follow Up/Referral: f/u with pcp, dc clinic, f/u with psych and nephrology due to diabetes insipidus Medications: see prescription Discharge Statement: "Patient was advised to return to the ER or call 911 if any headaches, dizziness, shortness of breath, chest pain, abdominal pain, bleeding, fevers, or worsening of medical condition. Patient was counseled about treatment plan, medications, possible side effects, patientverbalized understanding. All questions were answered to the best of my ability. This discharge took greater then 30 minutes in planning, reviewing documentation, counseling the patient, and discussing with other team members." ASSESSMENT ASSESSMENT Assessment central diabetes inspidus sp intubation MRSA pneumonia Date of Service: Sep 29, 2024 Billing Provider: GURU MONET MD Common Visit Codes: 31267-HUW/OBS DISCH DAY >30min TONY THAKKAR RESIDENT Sep 29, 2024 13:20 GURU MONET MD Sep 29, 2024 16:24
--- NOTE | 2024-09-29 22:00 | DVHPN2 ---
Progress Note - Dictate Date Seen: Sep 29, 2024 Has the PT tested + for MRSA If YES, has PT been informed?: No Medical Necessity Reason Pt with a Central, PICC or Fol: Yes The following are medically ne: Jones Catheter Reason for jones catheter: Strict I&O, Total Immobilization Subjective Patient seen and examined at bedside. Remains on supplemental oxygen Overnight events reviewed. vital signs Vital Sign Date Time Temp Pulse Resp B/P (MAP) Pulse Ox O2 Delivery O2 Flow Rate FiO2 09/29/24 16:00 18 95 Nasal Cannula* 2 28 09/29/24 15:26 105 09/29/24 12:34 98.2 108/52 (70) 98.2 Total Intake and Output 09/28/24 09/28/24 09/29/24 15:00 23:00 07:00 Intake Total 240 ml 1600 ml 300 ml Output Total 2300 ml Balance 240 ml -700 ml 300 ml medications Current Medications Medications Dose Ordered Sig/Elaine Route Start Time Stop Time Status Last Admin Dose Admin Albuterol 2.5 mg Q4HR NEB 09/14/24 02:00 09/29/24 15:21 2.5 MG Ipratropium [place] 0.5 mg Q4HR NEB 09/14/24 02:00 09/29/24 15:21 0.5 MG Pantoprazole Sodium 40 mg DAILY IV 09/14/24 10:00 09/29/24 08:57 40 MG Enoxaparin Sodium 40 mg DAILY SC 09/14/24 10:00 09/29/24 08:58 40 MG Lorazepam 1 mg Q4HP PRN IV 09/20/24 13:30 09/29/24 00:18 1 MG Acetaminophen 650 mg Q6HPRN PRN GT 09/20/24 23:15 09/28/24 05:22 650 MG Ipratropium [place] 0.5 mg Q2HPRN PRN NEB 09/26/24 12:15 Mupirocin 1 applic BID EACHNOSTRI 09/26/24 22:00 10/01/24 21:59 09/29/24 09:00 1 APPLIC Guaifenesin/ Dextromethorphan 10 ml Q4HP PRN PO 09/28/24 13:00 Desmopressin Acetate 1 spr DAILY NA 09/29/24 10:00 Olanzapine 40 mg DAILY PO 09/29/24 10:00 09/29/24 08:59 40 MG objective Gen.: Patient lying in bed in no apparent distress. On supplemental oxygen. Head: Normocephalic, atraumatic. Eyes: EOMI/PERRLA. Ears: Normal hearing. Normal anatomy. Neck/trachea: Trachea midline, supple. Nose: Normal external anatomy. Mouth: Moist mucous membranes. Chest: Decreased air entry bilaterally. No wheezing or rhonchi. Cardiovascular: Positive S1, positive S2. Regular rate and rhythm. Abdomen: Positive bowel sounds in all 4 quadrants. Soft, non-tender, non- distended. : Deferred. Rectal: Deferred. Skin: Warm, dry. Intact. Extremities: 2+ radial pulses bilaterally. No lower extremity edema. Neuro: Awake, alert, oriented x3. No gross motor or sensory deficits. Cranial nerves II through XII intact. Gait not assessed. laboratory and microbiology Laboratory Tests 09/29/24 05:09 Test 09/29/24 05:09 Range/Units Serum Glucose 92 74-106 mg/dL Assessment/Plan Impression: Acute hypoxic respiratory failure Acute hypercarbic respiratory failure AE COPD Pneumonia Lung scarring Events: Remains on supplemental oxygen On 2 LPM via NC Continue to taper as tolerated CXR reviewed; no acute cardiopulmonary disease. Continue bronchodilators PRN Antitussive PRN cough. Bactroban for MRSA nares. Incentive spirometry Accu-Cheks for glycemic monitoring Clinimix for nutritional support. DVT/GI prophylaxis Patient is stable for discharge from the pulmonary standpoint. Disposition per hospitalist. Labs and imaging reviewed Rest of plan as outlined below. Plan: S/p extubation on 09/21/24 Supplemental oxygen, transitioned from high-flow O2 to nasal cannula On 2 LPM via NC Titrate to keep sats between 88-94% BiPAP at night Off sedation Pressors if necessary for hemodynamic support Titrate to keep mean arterial pressure greater than 65 mmHg. Continue bronchodilators. HOB elevation Aspiration precautions Monitor renal function Monitor electrolytes. Supplement as necessary. Monitor ins and outs. Maintain euvolemia. GI prophylaxis. DVT prophylaxis. Prognosis: Guarded given patient's multiple co-morbidities. Rest of plan per hospitalist and other consultants. Thank you, Dr. Segundo, for allowing me to participate in this patient's care. Further recommendations will depend on the patient's clinical course. Please do not hesitate to contact me if you have any questions or concerns. This medical document was created using an electronic medical record system with F2G dictation system. Although these documentations are being carefully reviewed, there may still be some phonetic and typographical changes. The errors are purely typographical, due to imperfection on the software program, and do not reflect any compromise in the patient's medical care. Dietary Evaluation Review Comments: 1) Continue to monitor pt PO intake to meet at least 75% of meals 2) Continue current plan of care Expected Outcomes/Goals: F/U in 3-5 days Plan discussed with: Patient, Other (SIL Resendiz) BRITANY MEDRANO MD Sep 29, 2024 22:00
== END 2024-09-29 20:00 | disposition home health service (06) | DRG 720 ==
LOC: EDBD 19:26 → ER 19:26 → TELE 22:55 → ICU WEST 09-17 22:10 → TELE-CENTR 09-23 18:08 → ICU WEST 09-25 14:22 → TELE-CENTR 09-27 16:55
PROVIDERS: ADMIT Student in an Organized Health Care Education/Training Program; ATTEND Student in an Organized Health Care Education/Training Program
PROC: 5A09357 Assistance with Respiratory Ventilation, Less than 24 Consecutive Hours, Continuous Positive Airway Pressure (ICD-10-PCS; 2024-09-13)
PROC: 02HV33Z Insertion of Infusion Device into Superior Vena Cava, Percutaneous Approach (ICD-10-PCS; principal; 2024-09-14)
PROC: 5A1955Z Respiratory Ventilation, Greater than 96 Consecutive Hours (ICD-10-PCS; 2024-09-14)
PROC: 0BH17EZ Insertion of Endotracheal Airway into Trachea, Via Natural or Artificial Opening (ICD-10-PCS; 2024-09-14)
PROC: 5A0935A Assistance with Respiratory Ventilation, Less than 24 Consecutive Hours, High Flow/Velocity Cannula (ICD-10-PCS; 2024-09-21)
PROC: 5A09357 Assistance with Respiratory Ventilation, Less than 24 Consecutive Hours, Continuous Positive Airway Pressure (ICD-10-PCS; 2024-09-22)
PROC: 5A0935A Assistance with Respiratory Ventilation, Less than 24 Consecutive Hours, High Flow/Velocity Cannula (ICD-10-PCS; 2024-09-22)
PROC: 5A09357 Assistance with Respiratory Ventilation, Less than 24 Consecutive Hours, Continuous Positive Airway Pressure (ICD-10-PCS; 2024-09-23)
DX: A41.9 Sepsis, unspecified organism (principal); J96.21 Acute and chronic respiratory failure with hypoxia; R65.21 Severe sepsis with septic shock; J69.0 Pneumonitis due to inhalation of food and vomit; E23.2 Diabetes insipidus; J15.212 Pneumonia due to Methicillin resistant Staphylococcus aureus; D69.6 Thrombocytopenia, unspecified; J15.9 Unspecified bacterial pneumonia; I47.10 Supraventricular tachycardia, unspecified; Z20.822 Contact with and (suspected) exposure to COVID-19; I21.A1 Myocardial infarction type 2; J44.1 Chronic obstructive pulmonary disease with (acute) exacerbation; F20.9 Schizophrenia, unspecified; G47.00 Insomnia, unspecified; I10 Essential (primary) hypertension; I49.3 Ventricular premature depolarization; J44.0 Chronic obstructive pulmonary disease with (acute) lower respiratory infection; F41.9 Anxiety disorder, unspecified; I44.5 Left posterior fascicular block; J96.22 Acute and chronic respiratory failure with hypercapnia; K21.9 Gastro-esophageal reflux disease without esophagitis; Z87.891 Personal history of nicotine dependence; Z99.81 Dependence on supplemental oxygen; Z82.5 Family history of asthma and other chronic lower respiratory diseases; Z81.8 Family history of other mental and behavioral disorders
CPT/HCPCS: 36415; 36556; 36600; 70450; 71045; 80048; 80053; 80069; 80202; 80307; 80320; 81001; 82024; 82565; 82570; 82805; 82962; 83036; 83605; 83735; 83880; 83930; 83935; 84100; 84133; 84156; 84300; 84478; 84484; 84560; 85025; 87040; 87070; 87077; 87081; 87186; 87205; 87426; 87493; 87804; 92610; 93005; 93306; 94003; 94640; 94660; 97110; 97116; 97163; 97530; 99291; G0378; J0131; J0692; J1815; J2003; J2470; J3480; J7060

== ENCOUNTER 2024-10-18 06:04 | Inpatient (IN) | payer MEDICAID ==
[2024-10-18] VITALS (8 sets, daily range): BP systolic 111–116; BP diastolic 76–77; PULSE 85–105; RESP 16–23; TEMP 97.7–98.1; O2SAT 95–100
[~2024-10-18] VITALS: Ht 162.6 cm; Wt 44.0 kg
[~2024-10-18 06:04] MED LIST changes: +ACET-2058 PO; +DESNSL NAS; +OLAN1TAB7 PO
--- NOTE | 2024-10-18 06:30 | ED.PDOC ---
SOB-HPI HPI Comments 54 year old female KITTY presents to the ED with chief complaint of shortness of breath. EMS reports that the patient is coming from [facility] care facility and had been experiencing shortness of breath for the past 2 days with associated chest pain and headache. EMS relays that the patient is currently on at home O2 due to history of COPD. EMS states patient was recently admitted in August where she was intubated. EMS notes patient's spO2 was noted to be 95- 96% on O2 via NC. Patient denies any fever, chills, dizziness, N/V, or cough. Chief Complaint: Shortness of Breath Time Seen by MD: 06:24 Primary Care Provider: UNKNOWN Reviewed notes: Nurses Notes, Semiautomatic Taper Operator Notes, Medications, Allergies Information Source: Patient, Emergency Med Personnel Mode of Arrival: EMS Severity: Moderate Timing: Days Duration: Since onset Context: At Rest PE Risk Factors: None History of: COPD Prehospital treatment: Oxygen Modifying Factors: Nothing Associated Signs and Symptoms: Chest Pain Quality: Tightness Radiation: No Radiation Location: Substernal Past Medical History PAST MEDICAL HISTORY: COPD, Gallstones, Schizophrenia, UTI'S Surgical History: Denies all surgeries FOOD PACKER History: Denies all FOOD PACKER Hx Family History Family History: Reviewed,noncontributory to illness Social History Smoker: Quit Less Than 1 Year, Cigarettes Alcohol: Denies ETOH Use Drugs: Denies Drug Use Lives In: Assisted Care, [facility] Constitutional: denies: chills, diaphoresis, fatigue, fever, malaise, sweats, weakness, others EENTM: denies: blurred vision, double vision, ear bleeding, ear discharge, ear drainage, ear pain, ear ringing, eye pain, eye redness, hearing loss, mouth pain, mouth swelling, nasal discharge, nose bleeding, nose congestion, nose pain, photophobia, tearing, throat pain, throat swelling, voice changes, others Respiratory: reports: shortness of breath; denies: cough, hemoptysis, orthopnea, SOB at rest, SOB with excertion, stridor, wheezing, others Cardiovascular: reports: chest pain; denies: dizzy spells, diaphoresis, Dyspnea on exertion, edema, irregular heart beat, left arm pain, lightheadedness, palpitations, PND, syncope, others Gastrointestinal: denies: abdomen distended, abdominal pain, blood streaked bowels, constipated, diarrhea, dysphagia, difficulty swallowing, hematemesis, melena, nausea, poor appetite, poor fluid intake, rectal bleeding, rectal pain, vomiting, others Genitourinary: denies: abnormal vagina bleeding, burning, dyspareunia, dysuria, flank pain, frequency, hematuria, incontinence, pain, , vagina discharge, urgency, others Neurological: reports: headache; denies: dizziness, fainting, left sided numbness, left sided weakness, numbness, paresthesia, pre-existing deficit, right sided numbness, right sided weakness, seizure, speech problems, tingling, tremors, weakness, others Musculoskeletal: denies: back pain, gout, joint pain, joint swelling, muscle pain, muscle stiffness, neck pain, others Integumetry: denies: bruises, change in color, change in hair/nails, dryness, laceration, lesions, lumps, rash, wounds, others Allergic/Immunocompromised: denies: Difficulty Healing, Frequent Infections, Hives, Itching, others Hematologic/Lymphatic: denies: anemia, blood clots, easy bleeding, easy bruising, swollen glands, others Endocrine: denies: excessive hunger, excessive sweating, excessive thirst, excessive urination, flushing, intolerance to cold, intolerance to heat, unexplained weight gain, unexplained weight loss, others Psychiatric: denies: anxiety, bipolar disorder, depression, hopeless, panic disorder, schizophrenia, sleepless, suicidal, others All Other Systems: Reviewed and Negative Physical Exam General Appearance: Moderate Distress, Normal HEENT: Normal ENT Inspection, PERRL/EOMI Neck: Full Range of Motion, Non-Tender, Normal, Normal Inspection Respiratory: Chest Non-Tender, No Accessory Muscle Use, No Respiratory Distress, Other (Coarse breath sounds) Cardiovascular: No Edema, No JVD, No Murmur, No Gallop, Normal Peripheral Pulses, Regular Rate/Rhythm Breast Exam: Deferred Gastrointestinal: No Organomegaly, Non Tender, No Pulsatile Mass, Normal Bowel Sounds, Soft Genitalia: Deferred Pelvic: Deferred Rectal: Deferred Extremities: No calf tenderness, Normal capillary refill, Normal inspection, Normal range of motion, Non-tender, No pedal edema Musculoskeletal : Apperance: Normal Neurologic: Alert, supermarket manager II-XII nml as Tested, No Motor Deficits, Normal Affect, Normal Mood, No Sensory Deficits Cerebellar Function: NOT DONE Reflexes: NOT DONE Skin: Dry, Normal Color, Warm Peripheral Pulses: 3+ Radial (R), 3+ Radial (L) Lymphatic: No Adenopathy Was a procedure done? Was a procedure done?: No Differential Dx Differential Diagnosis: Anxiety, Asthma, Bronchitis, CHF, COPD X-Ray, Labs, Meds, VS Vital Signs Date Time Temp Pulse Resp B/P (MAP) Pulse Ox O2 Delivery O2 Flow Rate FiO2 10/18/24 06:05 90 10/18/24 06:04 98.2 95 18 101/57 (72) 95 Patient alert. Complaining of shortness a breath. Placed on oxygen. Maintaining good saturation. Reviewed her previous visit. She does have COPD. She was given steroid. Was given breathing treatment. Explained to the patient. She is taking her psychiatric medication. Continue cardiac monitoring. Time of 1ST Reevaluation: 07:24 Reevaluation 1ST: Unchanged Patient Education/Counseling: Diagnosis, Treatment Family Education/Counseling: No Family Present Additional Information I reviewed the following notes from patient's past medical encounters: 09/13/24 for acute hypoxic respiratory failure The following tests were ordered, and results were reviewed by me: CXR, CBC, BMP , UA Additional Information was gathered from interviewing the following independent historians: EMS I reviewed and agreed with the following test results read by other providers: CXR I discussed treatment and results with medical personnel. Departure 1 Departure Time of Disposition: 06:36 Impression: Primary Impression: Acute hypoxic respiratory failure Additional Impression: Pneumonitis Disposition: ADMITTED INPATIENT Admit to: Med Surg Condition: Guarded Critical Care Note Critical Care Time?: Yes (45 min-critical care time only) Stability Stability form required: No Heart Score Heart Score: Heart Score Response (Comments) Value History N/A 0 EKG N/A 0 Age N/A 0 Risk Factors N/A 0 Troponin N/A 0 Total 0 I personally scribed for CRISELDA PATRICK MD ([email or web address]) on 10/18/24 at 06:30. Electronically submitted by Ramón Alvarado ([email or web address]). I personally scribed for CRISELDA PATRICK MD ([email or web address]) on 10/18/24 at 06:43. Electronically submitted by Ramón Alvarado ([email or web address]). CRISELDA PATRICK MD Oct 18, 2024 06:30
[2024-10-18 07:00] LABS: Hematocrit 38.8 % (36.0-46.0); Hemoglobin 12.8 g/dL (12.2-16.2); Mean Corpuscular Hemoglobin 31.2 pg (28.0-32.0); Mean Corpuscular Hgb Conc. 32.9 g/dL (32.0-36.0); Mean Corpuscular Volume 94.8 fL (80.0-100.0); Platelet Count (auto) 164 10^3/uL (140-450); Red Blood Cells 4.09 10^6/uL (4.0-5.20); Red Cell Distribution Width 18.5 % (11.8-14.3); White Blood Cell 2.3 10^3/uL (4.4-10.8)
[2024-10-18 07:05] LABS: Basophils % (manual) 0 (0.0-2.0); Blast Cells 0; Metamyelocytes % 0; Myelocytes % 0; Promyelocytes % 0; Reactive Lymphocytes 0
[2024-10-18 07:11] LABS: Chloride 99 mmol/L (98-107); Potassium 4.5 mmol/L (3.5-5.1); Sodium 139 mmol/L (136-145)
[2024-10-18] MEDS: IPRATROPIUM BROM 0.5 MG/2.5ML INH SOL NEB ONE (07:11)
[2024-10-18] MEDS: ALBUTEROL SULF 2.5 MG/0.5ML(0.5%) NEB SOLN NEB ONE (07:11)
[2024-10-18 07:12] LABS: Anion Gap 6 (5-15); Calcium 9.6 mg/dL (8.7-10.4)
[2024-10-18 07:17] LABS: BUN/Creatinine Ratio 12.7 (10.0-20.0); Glucose 89 mg/dL (74-106)
[2024-10-18 07:24] LABS: Blood Urea Nitrogen 7 mg/dL (9-23); Carbon Dioxide 34 mmol/L (20-31)
--- NOTE | 2024-10-18 07:53 | DVH ---
CHEST RADIOGRAPH Indication: sob Technique: Single frontal view of the chest was obtained COMPARISON: XY CHEST XRAY 1 VIEW on DOS: 09/29/24, XY CHEST XRAY 1 VIEW on DOS: 09/22/24, XY CHEST RODY BLE on DOS: 09/21/24, XY CHEST PORTABLE on DOS: 09/20/24, XY CHEST PORTABLE on DOS: 09/19/24 FINDINGS: Lines and Tubes: None Lungs: Clear Pleura: No effusion. No pneumothorax. Cardiomediastinal contours: Unremarkable Bones: Unremarkable IMPRESSION: No acute disease.
[2024-10-18 08:10] LABS: Band Neutrophils % (manual) 2; Eosinophils % (manual) 3 (0-7); Lymphocytes % (manual) 26 (10.0-50.0); Monocytes % (manual) 7 (0-12); Platelet Estimate Adequate
[2024-10-18] MEDS: methylPREDNISolone SOD SUCC 125 MG/2 ML VL IV ONE (08:12)
[2024-10-18] MEDS: LORazepam 2MG/ML-1ML VIAL IV ONE (08:12)
[2024-10-18 11:03] LABS: Urine Bacteria FEW /hpf (None Seen); Urine Blood Negative /uL (Negative); Urine Clarity Turbid (Clear); Urine Color Light-Yellow (Yellow); Urine Protein, UAD Negative (Negative); Urine Squamous Epithelial Cell FEW /hpf (<5); Urine Urobilinogen Normal (Negative); Urine WBC 82 /HPF (0-5); Urine pH 6.5 (5.0-9.0)
[2024-10-18] MEDS ORDERED: IPRATROPIUM BROM 0.5 MG/2.5ML INH SOL NEB PRN (15:15)
[2024-10-18] MEDS ORDERED: ALBUTEROL SULF 2.5 MG/0.5ML(0.5%) NEB SOLN NEB PRN (15:15)
--- NOTE | 2024-10-18 15:22 | DVHHP2 ---
History of Present Illness Reason for Visit: Shortness of breath History of Present Illness This 54-year-old female presents in the ED via EMS with a chief complaint of shortness of breath. The patient reports progressive shortness of breath associated with productive cough, headaches, and sharp chest pain for the past two days. The patient states currently on home O2 for COPD and despite of breathing treatment she continue to have shortness of breath. The patient denies fever, chills, chest pain, difficulty in breathing, abdominal pain, other acute symptoms. Past medical history of COPD, schizophrenia, bipolar, UTI, and nicotine dependence. Past Medical History As stated in HPI Past Surgical History Denies Family History Reviewed, non-contributory to the management of this case. Past Social History Admits to vaping Denies illicit drug or ETOH abuse Review of Systems Constitutional: Yes: Malaise; No: Fever, Chills, Sweats, Weakness, Other Eyes: No: Pain, Vision change, Conjunctivae inflammation, Eyelid inflammation, Other, Redness ENT: No: Ear pain, Ear discharge, Nose pain, Nose discharge, Nose congestion, Mouth pain, Mouth swelling, Throat pain, Throat swelling, Other Respiratory: Cough, Shortness of breath; No: Dry, SOB with excertion, Wheezing, Hemoptysis, Pleuritic Pain, Sputum, Wheezing, Other Cardiovascular: No: Chest Pain, Palpitations, Orthopnea, Paroxysmal Noc. Dyspnea, Edema, Lt Headedness, Other Gastrointestinal: No: Nausea, Vomiting, Abdominal Pain, Diarrhea, Constipation, Melena, Hematochezia, Other Genitourinary: No Dysuria, No Frequency, No Incontinence, No Hematuria, No Retention, No Other Musculoskeletal: No: other, neck pain, shoulder pain, arm pain, back pain, hand pain, leg pain, foot pain Skin: No: Rash, Lesions, Jaundice, Bruising, Other Neurological: No: Weakness, Numbness, Incoordination, Change in speech, Confusion, Seizures, Other Allergies: Coded Allergies: NO KNOWN ALLERGIES (Unverified , 11/11/23) Exam Vital Signs Vital Signs Date Time Temp Pulse Resp B/P (MAP) Pulse Ox O2 Delivery O2 Flow Rate FiO2 10/18/24 12:31 97.7 105 23 116/77 (90) 90 97.7 10/18/24 10:16 Nasal Cannula* 3 32 General Appearance: Alert, Oriented X3, Cooperative, mild distress HEENT: Atraumatic, PERRLA, EOMI Respiratory: Clear to auscultation, Normal air movement Cardiovascular: Regular rate, Normal S1, Normal S2 Abdominal: Normal bowel sounds, Soft, No tenderness Extremities: No clubbing, No cyanosis, No edema Skin: No rashes, No breakdown, No significant lesion Neuro: Normal gait, Normal speech, Normal tone Psych/Mental Status: Mental status NL Labs/Xrays Labs Test 10/18/24 10:10 10/18/24 06:41 Range/Units Urine Color Light-yellow Yellow Urine Clarity Turbid H Clear Urine pH 6.5 5.0-9.0 Urine Specific [place] 1.010 1.001-1.035 Urine Protein Negative Negative Urine Ketones Negative Negative Urine Blood Negative Negative /uL Urine Nitrite 2+ H Negative Urine Bilirubin Negative Negative Urine Urobilinogen Normal Negative mg/dL Urine Leukocyte Esterase 3+ Negative /uL Urine RBC 1 0 - 4 /hpf Urine Microscopic WBC 82 H 0-5 /HPF Urine Squamous Epithelial Cells Few <5 /hpf Urine Bacteria Few H None Seen /hpf Urine Glucose Normal Normal mg/dL White Blood Count 2.3 L 4.4-10.8 10^3/uL Red Blood Count 4.09 4.0-5.20 10^6/uL Hemoglobin 12.8 12.2-16.2 g/dL Hematocrit 38.8 36.0-46.0 % Mean Corpuscular Volume 94.8 80.0-100.0 fL Mean Corpuscular Hemoglobin 31.2 28.0-32.0 pg Mean Corpuscular Hemoglobin Concent 32.9 32.0-36.0 g/dL Red Cell Distribution Width 18.5 H 11.8-14.3 % Platelet Count 164 140-450 10^3/uL Mean Platelet Volume 8.0 6.9-10.8 fL Neutrophils (%) (Auto) 37.0-80.0 % Lymphocytes (%) (Auto) 10.0-50.0 % Monocytes (%) (Auto) 0.0-12.0 % Basophils (%) (Auto) 0.0-2.0 % Neutrophils # (Auto) 1.6-8.6 10 ^3/uL Lymphocytes # (Auto) 0.4-5.4 10 ^3/uL Monocytes # (Auto) 0-1.3 10 ^3/uL Differential Total Cells Counted 100.0 100 Neutrophils % (Manual) 62 37.0-80.0 Band Neutrophils % (Manual) 2 Lymphocytes % (Manual) 26 10.0-50.0 Monocytes % (Manual) 7 0-12 Eosinophils % (Manual) 3 0-7 Basophils % (Manual) 0 0.0-2.0 Metamyelocytes % (manual) 0 Myelocytes % (Manual) 0 Promyelocytes % (Manual) 0 Blast Cells % (Manual) 0 Reactive Lymphocytes 0 Platelet Estimate Adequate Sodium Level 139 136-145 mmol/L Potassium Level 4.5 3.5-5.1 mmol/L Chloride Level 99 98-107 mmol/L Carbon Dioxide Level 34 H 20-31 mmol/L Anion Gap 6 5-15 Blood Urea Nitrogen 7 L 9-23 mg/dL Creatinine 0.55 0.550-1.02 mg/dL Glomerular Filtration Rate Calc 108 >90 mL/min BUN/Creatinine Ratio 12.7 10.0-20.0 Serum Glucose 89 74-106 mg/dL Calcium Level 9.6 8.7-10.4 mg/dL PROCEDURE(s): CXRP - CHEST PORTABLE REASON: sob ORDER NUMBER(s): [id number], ACCESSION NUMBER(s): [id number] CHEST RADIOGRAPH Indication: sob Technique: Single frontal view of the chest was obtained COMPARISON: XY CHEST XRAY 1 VIEW on DOS: 09/29/24, XY CHEST XRAY 1 VIEW on DOS: 09/22/24, XY CHEST PORTABLE on DOS: 09/21/24, XY CHEST PORTABLE on DOS: 09/20/24, XY CHEST PORTABLE on DOS: 09/19/24 FINDINGS: Lines and Tubes: None Lungs: Clear Pleura: No effusion. No pneumothorax. Cardiomediastinal contours: Unremarkable Bones: Unremarkable IMPRESSION: No acute disease. Assessment/Plan Assessment/Plan # acute on chronic respiratory failure # possible COPD exacerbation # rule out viral infections Admit to medical unit DuoNeb Steroids O2 supplement X-ray in a.m. Check for influenza a and B Check for COVID # acute UTI Ceftriaxone Urine culture # schizophrenia # bipolar 2 Benztropine Trazodone # nicotine dependence, vaping Nicotine patch Smoking cessation counseled DVT prophylaxis Medical plan discussed with patient and RN Plan discussed with: Patient Date of Service: Oct 18, 2024 Billing Provider: ESA VIDALES Common Visit Codes: [id number] INP/OBS CARE (HIGH) ESA VIDALES Oct 18, 2024 15:22
[2024-10-18] MEDS: NICOTINE 7MG/24HR TOPICAL PATCH TD ONE (15:29)
[2024-10-18] MEDS: cefTRIAXone 1GM/50ML D5W 50 ML IV ONE (15:29)
[2024-10-18] MEDS: ENOXAPARIN SOD 40 MG/0.4 ML SYRINGE SC ONE (15:47)
[2024-10-18 17:07] LABS: COVID19 ANTIGEN SOFIA FIA NEGATIVE (NEGATIVE)
[2024-10-18 17:08] LABS: Rapid Influenza A Negative (Negative); Rapid Influenza B Negative (Negative)
[2024-10-18] MEDS: IPRATROPIUM BROM 0.5 MG/2.5ML INH SOL NEB SCH (17:58)
[2024-10-18] MEDS: ALBUTEROL SULF 2.5 MG/0.5ML(0.5%) NEB SOLN NEB SCH (17:58)
[2024-10-18] MEDS: HALOPERIDOL 1 MG TAB PO SCH (22:37)
[2024-10-18] MEDS: traZODone HCL 50 MG TAB PO SCH (22:37)
[2024-10-18] MEDS: BENZTROPINE MESY 0.5 MG TAB PO SCH (22:37)
[2024-10-19] VITALS (15 sets, daily range): BP systolic 105–121; BP diastolic 56–71; PULSE 84–102; RESP 14–20; TEMP 97.5–99.5; O2SAT 14–100
[2024-10-19] MEDS ORDERED: ALBU1NEB5 IN (00:12)
[2024-10-19] MEDS ORDERED: PANT40TA2 PO (00:12)
[2024-10-19] MEDS ORDERED: DIVA500T13 PO (00:12)
[2024-10-19] MEDS ORDERED: MID10T (00:12)
[2024-10-19] MEDS ORDERED: CYCL-839 PO (00:12)
--- NOTE | 2024-10-19 06:21 | DVH ---
EXAM: XR Chest, 1 View CLINICAL INDICATION: sob TECHNIQUE: Frontal view of the chest. COMPARISON: XY CHEST PORTABLE on DOS: 10/18/24, XY CHEST XRAY 1 VIEW on DOS: 09/29/24, XY CHEST XRAY 1 VIEW on DOS: 09/22/24, XY CHEST PORTABLE on DOS: 09/21/24, XY CHEST PORTABLE on DOS: 09/20/24 FINDINGS: LUNGS AND PLEURAL SPACES: Bibasilar atelectasis or pneumonia. No pneumothorax. HEART: Unremarkable. No cardiomegaly. MEDIASTINUM: Unremarkable. Normal mediastinal contour. BONES/JOINTS: Unremarkable. No acute fracture. OTHER FINDINGS: . IMPRESSION: Bibasilar atelectasis or pneumonia.
[2024-10-19] MEDS: ONDANSETRON HCL 4 MG/2 ML VIAL IV PRN (06:39)
[2024-10-19 06:44] LABS: Hemoglobin 11.8 g/dL (12.2-16.2); Mean Corpuscular Hemoglobin 30.9 pg (28.0-32.0); Mean Corpuscular Hgb Conc. 32.9 g/dL (32.0-36.0); Mean Corpuscular Volume 94.2 fL (80.0-100.0); Platelet Count (auto) 172 10^3/uL (140-450); Red Blood Cells 3.83 10^6/uL (4.0-5.20); Red Cell Distribution Width 17.4 % (11.8-14.3); White Blood Cell 2.9 10^3/uL (4.4-10.8)
[2024-10-19 06:50] LABS: Band Neutrophils % (manual) 0; Basophils % (manual) 0 (0.0-2.0); Blast Cells 0; Eosinophils % (manual) 0 (0-7); Metamyelocytes % 0; Myelocytes % 0; Promyelocytes % 0; Reactive Lymphocytes 0
[2024-10-19 06:58] LABS: Alkaline Phosphatase 68 U/L (46-116); Anion Gap 5 (5-15); Blood Urea Nitrogen 9 mg/dL (9-23); Calcium 9.6 mg/dL (8.7-10.4); Chloride 99 mmol/L (98-107); Potassium 4.3 mmol/L (3.5-5.1); Sodium 139 mmol/L (136-145)
[2024-10-19 06:59] LABS: Albumin 3.5 g/dL (3.2-4.8)
[2024-10-19 07:05] LABS: Carbon Dioxide 35 mmol/L (20-31); Glucose 68 mg/dL (74-106)
[2024-10-19 07:06] LABS: Alanine Aminotransferase < 9 U/L (7-40); Aspartate Aminotransferase < 8 U/L (13-40); Bilirubin, Total 0.2 mg/dL (0.2-1.0)
[2024-10-19 08:31] LABS: Lymphocytes % (manual) 28 (10.0-50.0); Monocytes % (manual) 18 (0-12)
[2024-10-19 08:32] LABS: Platelet Estimate Adequate
[2024-10-19] MEDS: ACETAMINOPHEN 325 MG TAB PO PRN (08:51)
[2024-10-19] MEDS: cefTRIAXone 1GM/50ML D5W 50 ML IV SCH (08:51)
[2024-10-19] MEDS: methylPREDNISolone SOD SUCC 40 MG/ML VL IV SCH (09:53)
[2024-10-19] MEDS: ENOXAPARIN SOD 40 MG/0.4 ML SYRINGE SC SCH (09:53)
[2024-10-19] MEDS: NICOTINE 7MG/24HR TOPICAL PATCH TD SCH (10:02)
[2024-10-19] MEDS: DOXYCYCLINE 100MG/100ML 100 ML IV SCH (11:23)
--- NOTE | 2024-10-19 13:00 | ECG ---
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
--- NOTE | 2024-10-19 13:20 | DVHPNRES ---
Progress Note Date Seen: Oct 19, 2024 Resident Creating Document: TONY THAKKAR RESIDENT Has the PT tested + for MRSA If YES, has PT been informed?: No Medical Necessity Reason Pt with a Central, PICC or Fol: No Subjective Review of Systems A 54y with PMHx COPD with home o2, schizophrenia, bipolar, UTI, and diabetes insipidus. Recently admitted due to MRSA pneumonia, today with chief compliant of shortness of breath associated with productive cough, headaches. Today she denies chest pain, abdominal pain or fever Objective vital signs Vital Sign Date Time Temp Pulse Resp B/P (MAP) Pulse Ox O2 Delivery O2 Flow Rate FiO2 10/19/24 12:11 101 16 100 10/19/24 09:00 97.5 121/65 (83) 97.5 10/19/24 06:43 Nasal Cannula 2.0 10/19/24 06:43 28 Total Intake and Output 10/18/24 10/18/24 10/19/24 15:00 23:00 07:00 Intake Total 50 ml 200 ml Balance 50 ml 200 ml medications Current Medications Medications Dose Ordered Sig/Elaine Route Start Time Stop Time Status Last Admin Dose Admin Ondansetron HCl 4 mg Q4HP PRN IV 10/18/24 15:15 10/19/24 06:39 4 MG Enoxaparin Sodium 40 mg DAILY SC 10/19/24 10:00 10/19/24 09:53 40 MG Albuterol 2.5 mg Q4HPRN PRN NEB 10/18/24 15:15 Albuterol 2.5 mg Q6HR NEB 10/18/24 18:00 10/19/24 12:01 2.5 MG Ipratropium [place] 0.5 mg Q4HPRN PRN NEB 10/18/24 15:15 Ipratropium [place] 0.5 mg Q6HR NEB 10/18/24 18:00 10/19/24 12:01 0.5 MG Ceftriaxone Sodium 50 ml @ 100 mls/hr DAILY@09 IV 10/19/24 09:00 10/19/24 08:51 100 MLS/HR Methylprednisolone Sodium Succinate 40 mg BID IV 10/19/24 10:00 10/19/24 09:53 40 MG Nicotine 1 patch DAILY TD 10/19/24 10:00 10/19/24 10:02 1 PATCH Haloperidol 3 mg BID PO 10/18/24 22:00 10/19/24 10:27 3 MG Trazodone HCl 75 mg HS PO 10/18/24 22:00 10/18/24 22:37 75 MG Benztropine Mesylate 1 mg BID PO 10/18/24 22:00 10/19/24 09:53 1 MG Acetaminophen 650 mg Q4HP PRN PO 10/19/24 08:30 10/19/24 08:51 650 MG Doxycycline Hyclate 100 ml @ 50 mls/hr Q12H IV 10/19/24 10:45 10/19/24 11:23 50 MLS/HR Examination General Appearance: Alert, Oriented X3, Cooperative, mild distress HEENT: Atraumatic, PERRLA, EOMI Respiratory: Clear to auscultation, Normal air movement Cardiovascular: Regular rate, Normal S1, Normal S2 Abdominal: Normal bowel sounds, Soft, No tenderness Extremities: No clubbing, No cyanosis, No edema Skin: No rashes, No breakdown, No significant lesion Neuro: Normal gait, Normal speech, Normal tone Psych/Mental Status: Mental status NL laboratory and microbiology Laboratory Tests 10/19/24 04:46 Test 10/19/24 04:46 Range/Units Serum Glucose 68 L 74-106 mg/dL Microbiology Date/Time Source Procedure Growth Status 10/18/24 10:10 Voided Urine Urine Culture - Preliminary Resulted Problem List/Assessment/Plan Problem List/Assessment/Plan #Possible pneumonia due to gram +/ gram - #UTI- acute cystitis # Acute exacerbation of COPD #H/o Pneumonia probable MRSA #Schizophrenia #Ho Central diabetes insipidus #chronic respiratory failure s/p extubation Regular diet Doxycicline and ceftriaxone IV Methylprednisone 40mg BID Desmopressin spray 10 mg daily Breathing treatments q4h Continue haloperidol, trazodone and benztropine DVT: Lovenox Case discussed with Dr Monet for 23 min Plan discussed with: Patient, Other (rn ) My Orders My Orders Orders - TONY THAKKAR Procedure Category Date Status Time Acetaminophen Tablet PHA 10/19/24 In Process (Tylenol Tablet) 08:30 Doxycycline PHA 10/19/24 In Process 100mg/100ml 10:45 Respiratory Culture ANDRES 10/19/24 Logged W/ Gs 10:45 TONY THAKKAR RESIDENT Oct 19, 2024 13:20
[2024-10-20] VITALS (12 sets, daily range): BP systolic 103–130; BP diastolic 55–71; PULSE 80–103; RESP 16–20; TEMP 97.9–98.7; O2SAT 92–100
[2024-10-20 10:12] LABS: Basophils # (auto) 0 10 ^3/uL (0-0.2); Basophils % (auto) 0.5 % (0.0-2.0); Eosinophils # (auto) 0 10 ^3/uL (0-0.8); Eosinophils % (auto) 0.1 % (0.0-7.0); Hematocrit 34.9 % (36.0-46.0); Hemoglobin 11.5 g/dL (12.2-16.2); Lymphocytes # (auto) 0.7 10 ^3/uL (0.4-5.4); Mean Corpuscular Hemoglobin 31.1 pg (28.0-32.0); Mean Corpuscular Hgb Conc. 32.9 g/dL (32.0-36.0); Mean Corpuscular Volume 94.7 fL (80.0-100.0); Monocytes # (auto) 0.4 10 ^3/uL (0-1.3); Monocytes % (auto) 8.9 % (0.0-12.0); Neutrophils # (auto) 3.1 10 ^3/uL (1.6-8.6); Neutrophils % (auto) 74.5 % (37.0-80.0); Nucleated Red Blood Cells % 0.2 %; Platelet Count (auto) 185 10^3/uL (140-450); Red Blood Cells 3.69 10^6/uL (4.0-5.20); Red Cell Distribution Width 17.6 % (11.8-14.3); White Blood Cell 4.2 10^3/uL (4.4-10.8)
[2024-10-20] MEDS ORDERED: DOXY50CA PO (10:13)
[2024-10-20] MEDS ORDERED: AMOX500T86 PO (10:15)
[2024-10-20] MEDS: DESMOPRESSIN ACET 0.01% 5ML NASAL SPRY SCH (10:53)
[2024-10-20 11:09] LABS: Albumin 3.3 g/dL (3.2-4.8); Alkaline Phosphatase 62 U/L (46-116); Anion Gap 8 (5-15); Blood Urea Nitrogen 9 mg/dL (9-23); Calcium 9.5 mg/dL (8.7-10.4); Potassium 4.2 mmol/L (3.5-5.1); Sodium 136 mmol/L (136-145)
[2024-10-20] MEDS ORDERED: LEVO750T40 PO ×2 (11:26→13:49)
[2024-10-20 11:30] LABS: Alanine Aminotransferase < 9 U/L (7-40); Aspartate Aminotransferase < 8 U/L (13-40); Bilirubin, Total 0.2 mg/dL (0.2-1.0); Carbon Dioxide 33 mmol/L (20-31); Chloride 95 mmol/L (98-107); Total Protein 4.8 g/dL (5.7-8.2)
[2024-10-20 11:41] LABS: Glucose 155 mg/dL (74-106)
--- NOTE | 2024-10-20 13:37 | DVHDSRES ---
Discharge Summary Date of Admission Resident Creating Document: TONY THAKKAR RESIDENT Oct 18, 2024 at 15:08 Date of Discharge: Oct 20, 2024 Admitting Diagnosis #Possible pneumonia due to gram +/ gram - Labs/Diagnostic Data: Laboratory Results Test 10/20/24 10:00 10/19/24 04:46 10/18/24 16:25 10/18/24 10:10 White Blood Count 4.2 10^3/uL (4.4-10.8) Red Blood Count 3.69 10^6/uL (4.0-5.20) Hemoglobin 11.5 g/dL (12.2-16.2) Hematocrit 34.9 % (36.0-46.0) Mean Corpuscular Volume 94.7 fL (80.0-100.0) Mean Corpuscular Hemoglobin 31.1 pg (28.0-32.0) Mean Corpuscular Hemoglobin Concent 32.9 g/dL (32.0-36.0) Red Cell Distribution Width 17.6 % (11.8-14.3) Platelet Count 185 10^3/uL (140-450) Mean Platelet Volume 8.1 fL (6.9-10.8) Neutrophils (%) (Auto) 74.5 % (37.0-80.0) Lymphocytes (%) (Auto) 16.0 % (10.0-50.0) Monocytes (%) (Auto) 8.9 % (0.0-12.0) Eosinophils (%) (Auto) 0.1 % (0.0-7.0) Basophils (%) (Auto) 0.5 % (0.0-2.0) Neutrophils # (Auto) 3.1 10 ^3/uL (1.6-8.6) Lymphocytes # (Auto) 0.7 10 ^3/uL (0.4-5.4) Monocytes # (Auto) 0.4 10 ^3/uL (0-1.3) Eosinophils # (Auto) 0 10 ^3/uL (0-0.8) Basophils # (Auto) 0 10 ^3/uL (0-0.2) Nucleated Red Blood Cells 0.2 % Sodium Level 136 mmol/L (136-145) Potassium Level 4.2 mmol/L (3.5-5.1) Chloride Level 95 mmol/L (98-107) Carbon Dioxide Level 33 mmol/L (20-31) Anion Gap 8 (5-15) Blood Urea Nitrogen 9 mg/dL (9-23) Creatinine 0.45 mg/dL (0.550-1.02) Glomerular Filtration Rate Calc 114 mL/min (>90) BUN/Creatinine Ratio 20.0 (10.0-20.0) Serum Glucose 155 mg/dL (74-106) Calcium Level 9.5 mg/dL (8.7-10.4) Total Bilirubin 0.2 mg/dL (0.2-1.0) Aspartate Amino Transferase (AST) < 8 U/L (13-40) Alanine Aminotransferase (ALT) < 9 U/L (7-40) Alkaline Phosphatase 62 U/L (46-116) Total Protein 4.8 g/dL (5.7-8.2) Albumin 3.3 g/dL (3.2-4.8) Differential Total Cells Counted 100.0 (100) Neutrophils % (Manual) 54 (37.0-80.0) Band Neutrophils % (Manual) 0 Lymphocytes % (Manual) 28 (10.0-50.0) Monocytes % (Manual) 18 (0-12) Eosinophils % (Manual) 0 (0-7) Basophils % (Manual) 0 (0.0-2.0) Metamyelocytes % (manual) 0 Myelocytes % (Manual) 0 Promyelocytes % (Manual) 0 Blast Cells % (Manual) 0 Reactive Lymphocytes 0 Platelet Estimate Adequate Influenza Type A Antigen Negative (Negative) Influenza Type B Antigen Negative (Negative) SARS-CoV-2 Antigen (Rapid) Negative (NEGATIVE) Urine Color Light-yellow (Yellow) Urine Clarity Turbid (Clear) Urine pH 6.5 (5.0-9.0) Urine Specific [place] 1.010 (1.001-1.035) Urine Protein Negative (Negative) Urine Ketones Negative (Negative) Urine Blood Negative /uL (Negative) Urine Nitrite 2+ (Negative) Urine Bilirubin Negative (Negative) Urine Urobilinogen Normal mg/dL (Negative) Urine Leukocyte Esterase 3+ /uL (Negative) Urine RBC 1 /hpf (0 - 4) Urine Microscopic WBC 82 /HPF (0-5) Urine Squamous Epithelial Cells Few /hpf (<5) Urine Bacteria Few /hpf (None Seen) Urine Glucose Normal mg/dL (Normal) Other Laboratory Tests 10/20/24 10:00 Brief Hx & Hospital Course: A 54-year-old female with a past medical history of COPD on home oxygen, schizophrenia, bipolar disorder, UTI, and diabetes insipidus, MRSA pneumonia sp intubation presented with shortness of breath associated with productive cough and headaches. During this admission, she was diagnosed with pneumonia, MRSA nares neg, acute exacerbation of COPD, and a urinary tract infection. She denied chest pain, abdominal pain, or fever. Her hospital course included treatment with IV antibiotics (doxycycline and ceftriaxone), methylprednisolone for COPD exacerbation, desmopressin for diabetes insipidus, and scheduled breathing treatments. Schizophrenia was managed with continued use of haloperidol, trazodone, and benztropine. The patient was stable at discharge, with improved oxygen requirements and no new acute concerns. She was advised to maintain a regular diet and continue her prescribed medications. Further outpatient follow-up is recommended with her primary care provider and loan reviewer. Levaquin, fosfomycin and nitrofurantoin are prescribed for treatment of the pneumonia and UTI. Klebsiella ESBL sensible to Levaquin in urine. General Appearance: Alert, Oriented X3, Cooperative, mild distress HEENT: Atraumatic, PERRLA, EOMI Respiratory: Clear to auscultation, Normal air movement Cardiovascular: Regular rate, Normal S1, Normal S2 Abdominal: Normal bowel sounds, Soft, No tenderness Extremities: No clubbing, No cyanosis, No edema Skin: No rashes, No breakdown, No significant lesion Neuro: Normal gait, Normal speech, Normal tone Psych/Mental Status: Mental status NL Case discussed with Dr Monet Time spent on care 23 min Operations or Procedures EXAM: XR Chest, 1 View CLINICAL INDICATION: sob TECHNIQUE: Frontal view of the chest. COMPARISON: XY CHEST PORTABLE on DOS: 10/18/24, XY CHEST XRAY 1 VIEW on DOS: 09/29/24, XY CHEST XRAY 1 VIEW on DOS: 09/22/24, XY CHEST PORTABLE on DOS: 09/21/24, XY CHEST PORTABLE on DOS: 09/20/24 FINDINGS: LUNGS AND PLEURAL SPACES: Bibasilar atelectasis or pneumonia. No pneumothorax. HEART: Unremarkable. No cardiomegaly. MEDIASTINUM: Unremarkable. Normal mediastinal contour. BONES/JOINTS: Unremarkable. No acute fracture. OTHER FINDINGS: . IMPRESSION: Bibasilar atelectasis or pneumonia. Condition at Discharge: Stable Final Diagnosis/Problems List #Possible pneumonia due to gram +/ gram - #UTI- acute cystitis - Klebsiella ESBL # Acute exacerbation of COPD #H/o Pneumonia probable MRSA #Schizophrenia #Ho Central diabetes insipidus #chronic respiratory failure s/p extubation Discharge Disposition: Assisted Living Facility Discharge Instruct/Medications Diet: Regular Activity: Light activity Follow Up/Referral: f/u pcp and nephrology Medications: see prescription Discharge Statement: "Patient was advised to return to the ER or call 911 if any headaches, dizziness, shortness of breath, chest pain, abdominal pain, bleeding, fevers, or worsening of medical condition. Patient was counseled about treatment plan, medications, possible side effects, patientverbalized understanding. All questions were answered to the best of my ability. This discharge took greater then 30 minutes in planning, reviewing documentation, counseling the patient, and discussing with other team members." ASSESSMENT ASSESSMENT Assessment pneumonia TONY THAKKAR RESIDENT Oct 20, 2024 13:37
[2024-10-20] MEDS ORDERED: FOSF3POW PO (16:18)
[2024-10-20] MEDS ORDERED: NITR-52 PO (16:18)
== END 2024-10-20 23:00 | disposition home or self-care (01) | DRG 137 ==
LOC: ER 06:04 → EDBD 06:04 → OVERFLOW 15:08 → CENTRAL 23:10
PROVIDERS: ADMIT Student in an Organized Health Care Education/Training Program; ATTEND Emergency Medicine
DX: J15.69 Pneumonia due to other Gram-negative bacteria (principal); J96.21 Acute and chronic respiratory failure with hypoxia; Z99.81 Dependence on supplemental oxygen; J44.1 Chronic obstructive pulmonary disease with (acute) exacerbation; J15.9 Unspecified bacterial pneumonia; J44.0 Chronic obstructive pulmonary disease with (acute) lower respiratory infection; F20.9 Schizophrenia, unspecified; Z20.822 Contact with and (suspected) exposure to COVID-19; K80.20 Calculus of gallbladder without cholecystitis without obstruction; N30.00 Acute cystitis without hematuria; F31.81 Bipolar II disorder; Z71.6 Tobacco abuse counseling
CPT/HCPCS: 36415; 71045; 80048; 80053; 81001; 85007; 85025; 85027; 87070; 87081; 87086; 87088; 87186; 87205; 87426; 87804; 93005; 94640; 99291; G0378; J2405

== ENCOUNTER 2024-10-26 18:27 | Emergency (ER) | payer MEDICAID ==
[~2024-10-26] VITALS: Ht 157.5 cm; Wt 48.0 kg
[~2024-10-26 18:27] MED LIST changes: +ALBU1NEB5 IN; +CYCL-839 PO; +DIVA500T13 PO; +FOSF3POW PO; +LEVO750T40 PO; +MID10T; +NITR-52 PO; +PANT40TA2 PO
--- NOTE | 2024-10-26 20:08 | ED.PDOC ---
HPI (NEURO) HPI Comments 54y F who presents to the ED via EMS for chief complaint of generalized weakness. Per EMS, pt is resident at [facility] care facility and states pt was dx with UTI at local hospital and given abx 1 week prior and give medications but states she only taken 2 tabs since. EMS was called after appeared alerted and not answering questions properly. Pt in the ED, states "someone is after me." Pt appears alerted but otherwise has stable vitals in the ED. Pt denies any other symptoms at this time. Chief Complaint: General Weakness Time Seen by MD: 20:06 Primary Care Provider: UNKNOWN Reviewed Notes: Nurses Notes, Assistant Foreman Notes Information Source: Patient, Emergency Med Personnel Mode of Arrival: EMS Brought in by: EMS Vital Signs Vital Signs Date Time Temp Pulse Resp B/P (MAP) Pulse Ox O2 Delivery O2 Flow Rate FiO2 10/27/24 03:00 98.0 90 18 100/70 (80) 97 98.0 10/26/24 21:40 Room Air* 0 21 Physical Exam General: Awake, alert and oriented. No acute distress. Skin: Skin in warm, dry and intact. Appropriate color for ethnicity. HEENT: The head is normocephalic and atraumatic. Conjunctivae are clear without exudates or hemorrhage. Sclera is non-icteric. EOM are intact. No signs of nystagmus. Eyelids are normal in appearance without swelling or lesions. Oral mucosa is pink and moist Neck: The neck is supple with normal range of motion. No JVD. Cardiac: Heart rate and rhythm are normal. No murmurs, gallops, or rubs are auscultated. Respiratory: No signs of respiratory distress. Lung sounds are clear in all lobes bilaterally without rales, ronchi, or wheezes. Abdominal: Abdomen is soft, non-tender without distention. Bowel sounds are present and normoactive in all four quadrants. Extremities: Upper and lower extremities are atraumatic in appearance without deformity or edema. Neurological: The patient is awake, alert and oriented to person, place, and time with normal speech. Speech is clear. There is no facial asymmetry. Psychiatric: Appropriate mood and affect. Good judgement and insight. No visual or auditory hallucinations. Review of Systems: Patient denies chest pain, shortness of breath, abdominal pain Past Medical History PAST MEDICAL HISTORY: COPD, Gallstones, Schizophrenia, UTI'S Surgical History: Denies all surgeries RN OFFICE History: Denies all RN OFFICE Hx Family History Family History: Reviewed,noncontributory to illness Social History Smoker: Quit Less Than 1 Year, Cigarettes Alcohol: Denies ETOH Use Drugs: Denies Drug Use Lives In: Assisted Care, Sn[facility] EKG EKG : Pulse Rate (adult): 91 [place]: Normal Cardiac Rhythm: NSR Block: None Hypertrophy: None Was a procedure done? Was a procedure done?: No Differential Diagnosis (SZ) General Weakness: Anemia, Dehydration, Electrolyte imbalance, Encephalopathy, Hypoglycemia, Hypotension, Other (UTI, urosepsis,) X-Ray, Labs, Meds, VS Vital Signs Date Time Temp Pulse Resp B/P (MAP) Pulse Ox O2 Delivery O2 Flow Rate FiO2 10/27/24 03:00 98.0 90 18 100/70 (80) 97 98.0 10/26/24 21:40 98.5 90 17 100/62 (75) 97 98.5 10/26/24 21:40 96 18 98 Room Air* 0 21 10/26/24 20:57 91 10/26/24 18:48 91 10/26/24 18:36 98.2 94 16 99/61 (74) 96 Lab Test 10/27/24 02:30 10/26/24 20:05 Range/Units Urine Color Light-yellow Yellow Urine Clarity Turbid H Clear Urine pH 6.5 5.0-9.0 Urine Specific [place] 1.019 1.001-1.035 Urine Protein Trace H Negative Urine Ketones Negative Negative Urine Blood Negative Negative /uL Urine Nitrite Negative Negative Urine Bilirubin Negative Negative Urine Urobilinogen Normal Negative mg/dL Urine Leukocyte Esterase 2+ Negative /uL Urine RBC 2 0 - 4 /hpf Urine Microscopic WBC 5 0-5 /HPF Urine Squamous Epithelial Cells Few <5 /hpf Urine Bacteria Few H None Seen /hpf Urine Glucose Normal Normal mg/dL White Blood Count 5.3 # 4.4-10.8 10^3/uL Red Blood Count 4.11 4.0-5.20 10^6/uL Hemoglobin 12.4 12.2-16.2 g/dL Hematocrit 39.3 # 36.0-46.0 % Mean Corpuscular Volume 95.6 80.0-100.0 fL Mean Corpuscular Hemoglobin 30.2 28.0-32.0 pg Mean Corpuscular Hemoglobin Concent 31.6 L 32.0-36.0 g/dL Red Cell Distribution Width 19.0 H 11.8-14.3 % Platelet Count 176 140-450 10^3/uL Mean Platelet Volume 8.9 6.9-10.8 fL Neutrophils (%) (Auto) 57.7 37.0-80.0 % Lymphocytes (%) (Auto) 29.3 10.0-50.0 % Monocytes (%) (Auto) 11.2 0.0-12.0 % Eosinophils (%) (Auto) 1.4 0.0-7.0 % Basophils (%) (Auto) 0.4 0.0-2.0 % Neutrophils # (Auto) 3.0 1.6-8.6 10 ^3/uL Lymphocytes # (Auto) 1.5 0.4-5.4 10 ^3/uL Monocytes # (Auto) 0.6 0-1.3 10 ^3/uL Eosinophils # (Auto) 0.1 0-0.8 10 ^3/uL Basophils # (Auto) 0 0-0.2 10 ^3/uL Nucleated Red Blood Cells 0.0 % Sodium Level 136 136-145 mmol/L Potassium Level 4.9 3.5-5.1 mmol/L Chloride Level 103 98-107 mmol/L Carbon Dioxide Level 26 20-31 mmol/L Anion Gap 7 5-15 Blood Urea Nitrogen 8 L 9-23 mg/dL Creatinine 0.48 L 0.550-1.02 mg/dL Glomerular Filtration Rate Calc 112 >90 mL/min BUN/Creatinine Ratio 16.7 10.0-20.0 Serum Glucose 82 74-106 mg/dL Calcium Level 9.1 8.7-10.4 mg/dL Total Bilirubin 0.3 0.2-1.0 mg/dL Aspartate Amino Transferase (AST) 9 L 13-40 U/L Alanine Aminotransferase (ALT) < 9 7-40 U/L Alkaline Phosphatase 62 46-116 U/L Total Protein 5.0 L 5.7-8.2 g/dL Albumin 3.8 3.2-4.8 g/dL Current Medications Medications (Trade) Dose Ordered Sig/Elaine Route Start Time Stop Time Status Last Admin Sodium Chloride 1,000 ml @ 1,000 mls/hr Q1H ONCE IV 10/26/24 21:15 10/26/24 22:14 DC 10/26/24 21:37 Time of 1ST Reevaluation: 20:40 Reevaluation 1ST: Unchanged Patient Education/Counseling: Other (pt is alterted) Family Education/Counseling: No Family Present Departure 1 Departure Time of Disposition: 02:58 Impression: Primary Impression: UTI (urinary tract infection) Disposition: 01 HOME / SELF CARE / HOMELESS Condition: Stable Additional Instructions: ED DISCHARGE INSTRUCTIONS INSTRUCTIONS: PLEASE READ ALL INSTRUCTIONS PROVIDED IN THIS PACKET CAREFULLY. ALTHOUGH YOU HAVE BEEN DISCHARGED FROM THE EMERGENCY DEPARTMENT, THIS DOES NOT MEAN THAT YOU HAVE A "CLEAN BILL OF HEALTH". NO DEFINITIVE DIAGNOSIS FOR YOUR SY MPTOMS HAS BEEN MADE TODAY. IT IS POSSIBLE THAT YOU ARE IN THE PROCESS OF DEVELOPING A SERIOUS ILLNESS. THIS IS WHY YOU MUST RETURN TO THE ED WITHOUT FAIL IF ANY NEW OR WORSENING SYMPTOMS (ESPECIALLY IF YOUR SYMPTOMS INCLUDE CHEST PAIN, TROUBLE BREATHING, ABDOMINAL PAIN, FEVER, HEADACHE, CONFUSION, TROUBLE SEEING, OR TROUBLE WALKING) IT IS ALSO VERY IMPORTANT THAT YOU SEE A PRIMARY CARE DOCTOR WITHIN THE NEXT 3-5 DAYS TO FOLLOW UP. IF YOU ARE UNABLE TO GET AN APPOINTMENT, RETURN TO THE ED FOR RE-EVALUATION. Urinary Tract Infection (UTI) in Women: Care Instructions A urinary tract infection (UTI) is an infection caused by bacteria. It can happen anywhere in the urinary tract. A UTI can happen in the: Kidneys. Ureters, the tubes that connect the kidneys to the bladder. Bladder. Urethra, where the urine comes out. Most UTIs are bladder infections. They often cause pain or burning when you urinate. Most UTIs can be cured with antibiotics. If you are prescribed antibiotics, be sure to complete your treatment so that the infection does not get worse. Follow-up care is a quiros part of your treatment and safety. Be sure to make and go to all appointments, and call your doctor if you are having problems. It's also a good idea to know your test results and keep a list of the medicines you take. How can you care for yourself at home? Take your antibiotics as directed. Do not stop taking them just because you feel better. You need to take the full course of antibiotics. Drink extra water and other fluids for the next day or two. This will help make the urine less concentrated and help wash out the bacteria that are causing the infection. (If you have kidney, heart, or liver disease and have to limit fluids, talk with your doctor before you increase the amount of fluids you drink.) Avoid drinks that are carbonated or have caffeine. They can irritate the bladder. Urinate often. Try to empty your bladder each time. To relieve pain, take a hot bath or lay a heating pad set on low over your lower belly or genital area. Never go to sleep with a heating pad in place. To prevent UTIs Drink plenty of water each day. This helps you urinate often, which clears bacteria from your system. (If you have kidney, heart, or liver disease and have to limit fluids, talk with your doctor before you increase the amount of fluids you drink.) Urinate when you need to. If you are sexually active, urinate right after you have sex. Change sanitary pads often. Avoid douches, bubble baths, feminine hygiene sprays, and other feminine hygiene products that have deodorants. After going to the bathroom, wipe from front to back. When should you call for help? Call your doctor now or seek immediate medical care if: You have new or worse fever, chills, nausea, or vomiting. You have new pain in your back just below your rib cage. This is called flank pain. There is new blood or pus in your urine. You have any problems with your antibiotic medicine. Watch closely for changes in your health, and be sure to contact your doctor if: You are not getting better after taking an antibiotic for 2 days. Your symptoms go away but then come back. e-Prescriptions Nitrofurantoin Monohydrate Mac (Macrobid) 100 Mg Cap 100 MG PO BID for 7 Days, #14 CAP Prov: ANGELITO REYES MD 10/27/24 Comments Patient well-appearing, nontoxic. Advised prompt follow-up with PCP, return to the ED with any new, worsening or concerning symptoms. I reviewed the following notes from the pt's past medical encounters: Encounter October 18, 2024 for acute respiratory failure The following tests were ordered, and results were reviewed by me: (See diagnostic results section) The following test were independently interpreted by me: N/A Additional information was gathered from interviewing the following independent historians: EMS personnel I reviewed and agreed with the following test results read by other providers: N/A I discussed treatments and results with medical personnel and: N/A Decision regarding hospitalization or escalation of hospital level of care: Risks and benefits of admission for further treatment of patient's condition was considered however due to patient's stable condition patient will be discharged to follow up closely or return to care for worsening of condition or inability to follow up. Critical Care Note Critical Care Time?: No Stability Stability form required: No Heart Score Heart Score: Heart Score Response (Comments) Value History N/A 0 EKG N/A 0 Age N/A 0 Risk Factors N/A 0 Troponin N/A 0 Total 0 I personally scribed for ANGELITO REYES MD ([email or web address]) on 10/26/24 at 20:07. Electronically submitted by Shell Jiménez ([email or web address]). I personally scribed for ANGELITO REYES MD ([email or web address]) on 10/26/24 at 20:57. Electronically submitted by Shell Jiménez ([email or web address]). ANGELITO REYES MD Oct 26, 2024 20:07
[2024-10-26 20:32] LABS: Basophils # (auto) 0 10 ^3/uL (0-0.2); Basophils % (auto) 0.4 % (0.0-2.0); Eosinophils # (auto) 0.1 10 ^3/uL (0-0.8); Eosinophils % (auto) 1.4 % (0.0-7.0); Hematocrit 39.3 % (36.0-46.0); Hemoglobin 12.4 g/dL (12.2-16.2); Lymphocytes # (auto) 1.5 10 ^3/uL (0.4-5.4); Lymphocytes % (auto) 29.3 % (10.0-50.0); Mean Corpuscular Hemoglobin 30.2 pg (28.0-32.0); Mean Corpuscular Hgb Conc. 31.6 g/dL (32.0-36.0); Mean Corpuscular Volume 95.6 fL (80.0-100.0); Monocytes # (auto) 0.6 10 ^3/uL (0-1.3); Monocytes % (auto) 11.2 % (0.0-12.0); Neutrophils % (auto) 57.7 % (37.0-80.0); Platelet Count (auto) 176 10^3/uL (140-450); Red Blood Cells 4.11 10^6/uL (4.0-5.20); White Blood Cell 5.3 10^3/uL (4.4-10.8)
[2024-10-26 20:51] LABS: Albumin 3.8 g/dL (3.2-4.8); Alkaline Phosphatase 62 U/L (46-116); Anion Gap 7 (5-15); BUN/Creatinine Ratio 16.7 (10.0-20.0); Calcium 9.1 mg/dL (8.7-10.4); Carbon Dioxide 26 mmol/L (20-31); Chloride 103 mmol/L (98-107); Glucose 82 mg/dL (74-106); Potassium 4.9 mmol/L (3.5-5.1); Sodium 136 mmol/L (136-145)
[2024-10-26 20:53] LABS: Alanine Aminotransferase < 9 U/L (7-40); Aspartate Aminotransferase 9 U/L (13-40); Bilirubin, Total 0.3 mg/dL (0.2-1.0); Blood Urea Nitrogen 8 mg/dL (9-23)
[2024-10-26] MEDS: SODIUM CHLORIDE 0.9% 1,000 ML IV ONE (21:37)
[2024-10-26 21:40] VITALS: PULSE 96; RESP 18; O2SAT 98
[2024-10-27 02:41] LABS: Urine Bacteria FEW /hpf (None Seen); Urine Blood Negative /uL (Negative); Urine Clarity Turbid (Clear); Urine Color Light-Yellow (Yellow); Urine Protein, UAD TRACE (Negative); Urine Specific Gravity 1.019 (1.001-1.035); Urine Squamous Epithelial Cell FEW /hpf (<5); Urine Urobilinogen Normal (Negative); Urine WBC 5 /HPF (0-5); Urine pH 6.5 (5.0-9.0)
[2024-10-27 03:00] VITALS: BP 100/70; PULSE 90; RESP 18; TEMP 98; O2SAT 97
[2024-10-27] MEDS ORDERED: NITR-87 PO (03:04)
--- NOTE | 2024-10-27 10:07 | ECG ---
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
== END 2024-10-27 03:25 | disposition home or self-care (01) ==
LOC: EDBD 18:27 → ER 18:27
DX: N39.0 Urinary tract infection, site not specified (principal); J44.9 Chronic obstructive pulmonary disease, unspecified; Z87.891 Personal history of nicotine dependence
CPT/HCPCS: 36415; 80053; 81001; 85025; 93005; 96360; 96361; 99285; J7030

== ENCOUNTER 2024-10-30 21:23 | Emergency (ER) | payer MEDICAID ==
[~2024-10-30] VITALS: Ht 167.6 cm; Wt 45.5 kg
[~2024-10-30 21:23] MED LIST changes: +NITR-87 PO
--- NOTE | 2024-10-30 22:26 | ED.PDOC ---
History of Present Illness HPI Comments 54 y/o F, with a Hx of COPD, UTI's, bipolar disorder, and schizophrenia, is BIBA for c/o throat pain and diarrhea, today. Per EMS report, [facility] and was brought after managing to get a hold of phone amidst being prohibited on doing so, endorsing having symptoms for undetermined amount of time. At time of assessment, patient is a poor historian. She denies having any chest pain, shortness of breath, nausea, vomiting, fever, chills, or other associated symptoms or modifiers at this time. Chief Complaint: Sore Throat Time Seen by MD: 21:45 Primary Care Provider: UNKNOWN Reviewed Notes: Nurses Notes, Insulation Board Coater Operator Notes, Medications, Allergies Allergies: Coded Allergies: NO KNOWN ALLERGIES (Unverified , 11/11/23) Home Meds Active Scripts Nitrofurantoin Monohydrate Mac (Macrobid) 100 Mg Cap, 100 MG PO BID for 7 Days, #14 CAP Prov:ANGELITO REYES MD 10/27/24 Nitrofurantoin (Nitrofurantoin) 100 Mg Cap, 100 MG PO BID for 10 Days, #20 CAP Prov:GURU BROWN MD 10/20/24 Fosfomycin Tromethamine (Fosfomycin Tromethamine) 3 Gm Pow, 3 GM PO ONCE for 1 Day, #1 POW Prov:GURU BROWN MD 10/20/24 Levofloxacin Hemihydrate (LEVOFLOXACIN) 750 Mg Tab, 750 MG PO DAILY for 10 Days, #10 TAB Prov:TONY THAKKAR 10/20/24 Olanzapine (OLANZAPINE) 5 Mg Tab, 10 MG PO [id number] PRN for 30 Days, #120 TAB Prov:TONY THAKKAR 09/29/24 Desmopressin Acetate (Ddavp Nasal) 1 Spr Sp, 1 SPR TONY DAILY for 30 Days, #1 UNIT Prov:TONY THAKKAR 09/29/24 Acetaminophen (Acetaminophen) 160 Mg/5 Ml Polina, 325 MG PO Q6HR PRN for 10 Days, #30 UNIT Prov:TONY THAKKAR 09/29/24 Ondansetron Odt 4MG Tab (ZOFRAN PO) 4 Mg Tb, 4 MG PO TIDPRN PRN for 7 Days, #21 TAB ODT TAB-DISSOLVE IN MOUTH, THEN SWALLOW Prov:CHRISTAL ABRAHAM MD 07/08/24 Reported Medications Divalproex Sodium (Divalproex Sodium) 500 Mg Tab, 500 MG PO BID for 30 Days, MG 10/19/24 Midodrine HCl (Midodrine HCl) 10 Mg Tab, 10 MG, TAB 10/19/24 Pantoprazole Sodium Sesquihydr (Protonix) 40 Mg Tab, 40 MG PO DAILY, #30 TAB 10/19/24 Cyclobenzaprine Hcl (Cyclobenzaprine Hcl) 10 Mg Tab, 10 MG PO for 30 Days, MG 10/19/24 Albuterol Sulfate (Albuterol Sulfate (5 mg/ml) 0.5%) 1 Neb Neb, 1 NEB IN, INH 10/19/24 Haloperidol (Haldol) 5 Mg Tb, 3 MG PO BID, MG 03/15/24 Benztropine Mesylate (Benztropine Mesylate) 1 Mg Tab, 1 MG PO BID, MG 03/15/24 Trazodone Hcl (Trazodone Hcl) 50 Mg Tab, 75 MG PO HS, MG 03/15/24 Lorazepam (ATIVAN TABLET) 0.5 Mg Tb, 0.5 MG PO Q4HPRN PRN for ANXIETY, TAB 03/15/24 Information Source: Patient, Emergency Med Personnel Mode of Arrival: EMS Severity: Moderate Timing: Hours Duration: Since onset Prehospital treatment: 12 Lead EKG, Social Media Executive Past Medical History PAST MEDICAL HISTORY: COPD, Gallstones, Schizophrenia, UTI'S Past Medical History (Other): bipolar disorder Surgical History: 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 Hx Family History Family History: Reviewed,noncontributory to illness Social History Smoker: Quit Less Than 1 Year, Cigarettes Alcohol: Denies ETOH Use Drugs: Denies Drug Use Lives In: Assisted Care, Long Term Constitutional: denies: chills, diaphoresis, fatigue, fever, malaise, sweats, weakness, others EENTM: reports: throat pain; denies: blurred vision, double vision, ear bleeding, ear discharge, ear drainage, ear pain, ear ringing, eye pain, eye redness, hearing loss, mouth pain, mouth swelling, nasal discharge, nose bleeding, nose congestion, nose pain, photophobia, tearing, throat swelling, voice changes, others Respiratory: denies: cough, hemoptysis, orthopnea, SOB at rest, shortness of breath, SOB with excertion, stridor, wheezing, others Cardiovascular: denies: chest pain, dizzy spells, diaphoresis, Dyspnea on ex ertion, edema, irregular heart beat, left arm pain, lightheadedness, palpitations, PND, syncope, others Gastrointestinal: reports: diarrhea; denies: abdomen distended, abdominal pain, blood streaked bowels, constipated, dysphagia, difficulty swallowing, hematemesis, melena, nausea, poor appetite, poor fluid intake, rectal bleeding, rectal pain, vomiting, others Genitourinary: denies: abnormal vagina bleeding, burning, dyspareunia, dysuria, flank pain, frequency, hematuria, incontinence, pain, , vagina discharge, urgency, others Neurological: denies: dizziness, fainting, headache, left sided numbness, left sided weakness, numbness, paresthesia, pre-existing deficit, right sided numbness, right sided weakness, seizure, speech problems, tingling, tremors, weakness, others Musculoskeletal: denies: back pain, gout, joint pain, joint swelling, muscle pain, muscle stiffness, neck pain, others Integumetry: denies: bruises, change in color, change in hair/nails, dryness, laceration, lesions, lumps, rash, wounds, others Allergic/Immunocompromised: denies: Difficulty Healing, Frequent Infections, Hives, Itching, others Hematologic/Lymphatic: denies: anemia, blood clots, easy bleeding, easy bruising, swollen glands, others Endocrine: denies: excessive hunger, excessive sweating, excessive thirst, excessive urination, flushing, intolerance to cold, intolerance to heat, unexplained weight gain, unexplained weight loss, others Psychiatric: denies: anxiety, bipolar disorder, depression, hopeless, panic disorder, schizophrenia, sleepless, suicidal, others All Other Systems: Reviewed and Negative (negative unless otherwise stated above or in HPI) Physical Exam General Appearance: Mild Distress (Patient was in moderate distress due to diarrhea and throat pain concerns. Patient displays advanced psychosis and had multiple flights of fancy when describing her complaints.), Normal HEENT: Pharyngeal Erythema (Mildly beefy oropharynx without tonsillar pillar involvement. No exudate noted. Airway is patent.), TMs Normal Neck: Full Range of Motion, Non-Tender, Normal, Normal Inspection Respiratory: Chest Non-Tender, Lungs Clear, No Accessory Muscle Use, No Respiratory Distress, Normal Breath Sounds Cardiovascular: No Edema, No JVD, No Murmur, No Gallop, Normal Peripheral Pulses, Regular Rate/Rhythm Breast Exam: Deferred Gastrointestinal: No Organomegaly, Non Tender, No Pulsatile Mass, Normal Bowel Sounds, Soft Genitalia: Deferred Pelvic: Deferred Rectal: Deferred Extremities: No calf tenderness, Normal capillary refill, Normal inspection, Normal range of motion, Non-tender, No pedal edema Neurologic: Alert, fur scraper II-XII 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 Was a procedure done?: No Differential Dx Considerations may include: viral, URI, viral pharyngitis, influenza a/B, COVID-19 X-Ray, Labs, Meds, VS Vital Signs Date Time Temp Pulse Resp B/P (MAP) Pulse Ox O2 Delivery O2 Flow Rate FiO2 10/30/24 23:20 90 20 98 Nasal Cannula 2.0 10/30/24 23:20 97.6 90 20 119/63 (81) 98 97.6 10/30/24 21:31 98.1 96 18 112/70 (84) 99 Lab Test 10/30/24 23:10 Range/Units Influenza Type A Antigen Negative Negative Influenza Type B Antigen Negative Negative SARS-CoV-2 Antigen (Rapid) Negative NEGATIVE Group A Streptococcus Rapid Negative X-Ray, Labs, Meds, VS Comment All studies performed the ED were evaluated by me personally. Laboratories studies were unremarkable for any streptococcal pharyngitis flu or COVID. Patient appears to have a viral pharyngitis. Patient will be discharged back to her facility with Tylenol and or Motrin as needed for pain relief. Time of 1ST Reevaluation: 00:24 Reevaluation 1ST: Improved Consultation: PCP Patient Education/Counseling: Diagnosis, Treatment Family Education/Counseling: Diagnosis, Treatment, No Family Present Departure 1 Departure Time of Disposition: 00:24 Impression: Primary Impression: Viral pharyngitis Disposition: HOME / SELF CARE / HOMELESS Condition: Stable Additional Instructions: Advised Tylenol and or Motrin as needed for symptomatic pain relief as well as good hydration and healthy nutrition throughout illness event. e-Prescriptions Acetaminophen (Acetaminophen) 500 Mg Tab 500 MG PO Q4HP PRN, #20 TAB Prov: MAMI ESTRADA PAC 10/31/24 Ibuprofen (Ibuprofen) 600 Mg Tab 1 TAB PO Q6HP PRN, #20 TAB Prov: MAMI ESTRADA PAC 10/31/24 Discharged With: Self Critical Care Note Critical Care Time?: No Stability Stability form required: No Heart Score Heart Score: Heart Score Response (Comments) Value History N/A 0 EKG N/A 0 Age N/A 0 Risk Factors N/A 0 Troponin N/A 0 Total 0 I personally scribed for MAMI ESTRADA PAC ([email or web address]) on 10/30/24 at 22:26. Electronically submitted by Devin Huerta ([email or web address]). MAMI ESTRADA PAC Oct 30, 2024 22:26
[2024-10-30 23:20] VITALS: BP 119/63; PULSE 90; RESP 20; TEMP 97.6; O2SAT 98
[2024-10-30 23:54] LABS: Rapid Strep A Screen-Throat Negative
[2024-10-30 23:55] LABS: COVID19 ANTIGEN SOFIA FIA NEGATIVE (NEGATIVE)
[2024-10-31 00:03] LABS: Rapid Influenza A Negative (Negative); Rapid Influenza B Negative (Negative)
[2024-10-31] MEDS ORDERED: IBUP-1454 PO (00:25)
[2024-10-31] MEDS ORDERED: ACET500T58 PO (00:25)
== END 2024-10-31 04:07 | disposition home or self-care (01) ==
LOC: EDBD 21:23 → ER 21:23
DX: J02.8 Acute pharyngitis due to other specified organisms (principal); B97.89 Other viral agents as the cause of diseases classified elsewhere; J44.9 Chronic obstructive pulmonary disease, unspecified; Z79.899 Other long term (current) drug therapy; Z20.822 Contact with and (suspected) exposure to COVID-19
CPT/HCPCS: 36415; 87070; 87426; 87804; 87880

== ENCOUNTER 2024-11-03 14:09 | Emergency (ER) | payer MEDICAID ==
[~2024-11-03] VITALS: Ht 167.6 cm; Wt 50.0 kg
[~2024-11-03 14:09] MED LIST changes: +ACET500T58 PO; +IBUP-1454 PO
[2024-11-03 20:18] LABS: Urine Bacteria None Seen /hpf (None Seen); Urine Blood Negative /uL (Negative); Urine Budding Yeast OCCASIONAL /hpf (None Seen); Urine Clarity Clear (Clear); Urine Color Yellow (Yellow); Urine Protein, UAD Negative (Negative); Urine Squamous Epithelial Cell FEW /hpf (<5); Urine Urobilinogen Normal (Negative); Urine WBC 1 /HPF (0-5); Urine pH 6.5 (5.0-9.0)
[2024-11-03] MEDS: KETOROLAC TROMETH 30 MG/ML 1ML VIAL IM ONE (21:00)
--- NOTE | 2024-11-03 21:01 | ED.PDOC ---
Back pain HPI HPI Comments 54-year-old female brought in by EMS, patient complaining of lower back pain. Upon arrival patient states her back pain has improved. Patient was picked up from [facility]. Patient denies any urinary discharge she urinary pain. Chief Complaint: Back Pain Time Seen by MD: 15:48 Primary Care Provider: UNKNOWN Reviewed Notes: Nurses Notes Allergies: Coded Allergies: NO KNOWN ALLERGIES (Unverified , 11/11/23) Home Meds Active Scripts Acetaminophen (Acetaminophen) 500 Mg Tab, 500 MG PO Q4HP PRN, #20 TAB Prov:MAMI ESTRADA PAC 10/31/24 Ibuprofen (Ibuprofen) 600 Mg Tab, 1 TAB PO Q6HP PRN, #20 TAB Prov:MAMI ESTRADA PAC 10/31/24 Nitrofurantoin Monohydrate Mac (Macrobid) 100 Mg Cap, 100 MG PO BID for 7 Days, #14 CAP Prov:ANGELITO REYES MD 10/27/24 Nitrofurantoin (Nitrofurantoin) 100 Mg Cap, 100 MG PO BID for 10 Days, #20 CAP Prov:GURU BROWN MD 10/20/24 Fosfomycin Tromethamine (Fosfomycin Tromethamine) 3 Gm Pow, 3 GM PO ONCE for 1 Day, #1 POW Prov:GURU BROWN MD 10/20/24 Levofloxacin Hemihydrate (LEVOFLOXACIN) 750 Mg Tab, 750 MG PO DAILY for 10 Days, #10 TAB Prov:TONY THAKKAR 10/20/24 Olanzapine (OLANZAPINE) 5 Mg Tab, 10 MG PO [id number] PRN for 30 Days, #120 TAB Prov:TONY THAKKAR 09/29/24 Desmopressin Acetate (Ddavp Nasal) 1 Spr Sp, 1 SPR TONY DAILY for 30 Days, #1 UNIT Prov:TONY THAKKAR 09/29/24 Acetaminophen (Acetaminophen) 160 Mg/5 Ml Polina, 325 MG PO Q6HR PRN for 10 Days, #30 UNIT Prov:TONY THAKKAR 09/29/24 Ondansetron Odt 4MG Tab (ZOFRAN PO) 4 Mg Tb, 4 MG PO TIDPRN PRN for 7 Days, #21 TAB ODT TAB-DISSOLVE IN MOUTH, THEN SWALLOW Prov:CHRISTAL ABRAHAM MD 07/08/24 Reported Medications Divalproex Sodium (Divalproex Sodium) 500 Mg Tab, 500 MG PO BID for 30 Days, MG 10/19/24 Midodrine HCl (Midodrine HCl) 10 Mg Tab, 10 MG, TAB 10/19/24 Pantoprazole Sodium Sesquihydr (Protonix) 40 Mg Tab, 40 MG PO DAILY, #30 TAB 10/19/24 Cyclobenzaprine Hcl (Cyclobenzaprine Hcl) 10 Mg Tab, 10 MG PO for 30 Days, MG 10/19/24 Albuterol Sulfate (Albuterol Sulfate (5 mg/ml) 0.5%) 1 Neb Neb, 1 NEB IN, INH 10/19/24 Haloperidol (Haldol) 5 Mg Tb, 3 MG PO BID, MG 03/15/24 Benztropine Mesylate (Benztropine Mesylate) 1 Mg Tab, 1 MG PO BID, MG 03/15/24 Trazodone Hcl (Trazodone Hcl) 50 Mg Tab, 75 MG PO HS, MG 03/15/24 Lorazepam (ATIVAN TABLET) 0.5 Mg Tb, 0.5 MG PO Q4HPRN PRN for ANXIETY, TAB 03/15/24 Information Source: Patient Mode of Arrival: EMS Past Medical History PAST MEDICAL HISTORY: COPD, Gallstones, Schizophrenia, UTI'S Surgical History: Denies all surgeries EMERGENCY RESPONSE COORDINATOR History: Denies all EMERGENCY RESPONSE COORDINATOR Hx Family History Family History: Reviewed,noncontributory to illness Social History Smoker: Quit Less Than 1 Year, Cigarettes Alcohol: Denies ETOH Use Drugs: Denies Drug Use Lives In: Assisted Care, Senior Care Constitutional: denies: chills, diaphoresis, fatigue, fever, malaise, sweats, weakness, others EENTM: denies: blurred vision, double vision, ear bleeding, ear discharge, ear drainage, ear pain, ear ringing, eye pain, eye redness, hearing loss, mouth pain, mouth swelling, nasal discharge, nose bleeding, nose congestion, nose pain, photophobia, tearing, throat pain, throat swelling, voice changes, others Respiratory: denies: cough, hemoptysis, orthopnea, SOB at rest, shortness of breath, SOB with excertion, stridor, wheezing, others Cardiovascular: denies: chest pain, dizzy spells, diaphoresis, Dyspnea on exertion, edema, irregular heart beat, left arm pain, lightheadedness, palpitations, PND, syncope, others Gastrointestinal: denies: abdomen distended, abdominal pain, blood streaked bowels, constipated, diarrhea, dysphagia, difficulty swallowing, hematemesis, melena, nausea, poor appetite, poor fluid intake, rectal bleeding, rectal pain, vomiting, others Genitourinary: denies: abnormal vagina bleeding, burning, dyspareunia, dysuria, flank pain, frequency, hematuria, incontinence, pain, , vagina dis charge, urgency, others Neurological: denies: dizziness, fainting, headache, left sided numbness, left sided weakness, numbness, paresthesia, pre-existing deficit, right sided numbness, right sided weakness, seizure, speech problems, tingling, tremors, weakness, others Musculoskeletal: reports: back pain; denies: gout, joint pain, joint swelling, muscle pain, muscle stiffness, neck pain, others Integumetry: denies: bruises, change in color, change in hair/nails, dryness, laceration, lesions, lumps, rash, wounds, others Physical Exam General Appearance: No Apparent Distress, Normal HEENT: Normal ENT Inspection, Pharynx Normal, TMs Normal Neck: Full Range of Motion, Non-Tender, Normal, Normal Inspection Respiratory: Chest Non-Tender, Lungs Clear, No Accessory Muscle Use, No Respiratory Distress, Normal Breath Sounds Cardiovascular: No Edema, No JVD, No Murmur, No Gallop, Normal Peripheral Pulses, Regular Rate/Rhythm Breast Exam: Deferred Gastrointestinal: No Organomegaly, Non Tender, No Pulsatile Mass, Normal Bowel Sounds, Soft Genitalia: Deferred Pelvic: Deferred Rectal: Deferred Extremities: No calf tenderness, Normal capillary refill, Normal inspection, Normal range of motion, Non-tender, No pedal edema Musculoskeletal : Apperance: Normal Neurologic: Alert, wagon person II-XII 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 Was a procedure done?: No Back Pain Differential Dx Differential Diagnosis: Fracture, Musculoskeletal Pain, Pyelonephritis, Urinary Obstruction X-Ray, Labs, Meds, VS Vital Signs Date Time Temp Pulse Resp B/P (MAP) Pulse Ox O2 Delivery O2 Flow Rate FiO2 11/03/24 14:30 98.6 103 16 120/77 (91) 100 Lab Test 11/03/24 20:40 Range/Units Urine Color Yellow Yellow Urine Clarity Clear Clear Urine pH 6.5 5.0-9.0 Urine Specific Delancey 1.020 1.001-1.035 Urine Protein Negative Negative Urine Ketones Negative Negative Urine Blood Negative Negative /uL Urine Nitrite Negative Negative Urine Bilirubin Negative Negative Urine Urobilinogen Normal Negative mg/dL Urine Leukocyte Esterase Negative Negative /uL Urine RBC 1 0 - 4 /hpf Urine Microscopic WBC 1 0-5 /HPF Urine Squamous Epithelial Cells Few <5 /hpf Urine Bacteria None seen None Seen /hpf Urine Yeast (Budding) Occasional None Seen /hpf Urine Glucose Normal Normal mg/dL X-Ray, Labs, Meds, VS Comment Imaging: X-rays and CT scans were reviewed and interpreted by this provider, imaging shows no fractures and no pathological disease. Pending radiology re view. Laboratory: Labs reviewed and interpreted by this provider. No significant abnormalities noted. Patient has prior medical visits reviewed. Med reconciliation performed Vital signs reviewed Time of 1ST Reevaluation: 21:01 Reevaluation 1ST: Improved Patient Education/Counseling: Diagnosis, Treatment, Need For Follow Up (Patient advised to follow-up in the emergency room in the next 24 to 48 hours if symptoms do not improve. Advised follow-up with PCP in the next 3 to 5 days. Patient verbalized understanding. ) Family Education/Counseling: Diagnosis Departure 1 Departure Time of Disposition: 21:01 Impression: Primary Impression: Musculoskeletal pain Additional Impression: Lumbar radiculopathy Disposition: 01 HOME / SELF CARE / HOMELESS Condition: Fair Discharged With: Self Critical Care Note Critical Care Time?: No Stability Stability form required: No Heart Score Heart Score: Heart Score Response (Comments) Value History N/A 0 EKG N/A 0 Age N/A 0 Risk Factors N/A 0 Troponin N/A 0 Total 0 MADHAV CASTRO Nov 03, 2024 21:01
[2024-11-03] MEDS: methylPREDNISolone SOD SUCC 125 MG/2 ML VL IM ONE (21:43)
[2024-11-03] MEDS: HYDROcodone-ACET 5/325MG TAB PO ONE (21:51)
[2024-11-03 22:00] VITALS: BP 120/63; TEMP 97.5
[2024-11-03] MEDS ORDERED: BACL20TA PO (22:01)
[2024-11-03 22:21] VITALS: PULSE 93; RESP 18; O2SAT 97
== END 2024-11-03 22:21 | disposition home or self-care (01) ==
LOC: EDBD 14:09 → ER 14:25
DX: M54.16 Radiculopathy, lumbar region (principal); M79.10 Myalgia, unspecified site; J44.9 Chronic obstructive pulmonary disease, unspecified; Z87.891 Personal history of nicotine dependence; Z79.899 Other long term (current) drug therapy
CPT/HCPCS: 81001; J1885

== ENCOUNTER 2024-11-15 15:07 | Emergency (ER) | payer MEDICAID, OTHER ==
[~2024-11-15] VITALS: Ht 167.6 cm; Wt 45.0 kg
[~2024-11-15 15:07] MED LIST changes: +BACL20TA PO
[2024-11-15 15:23] VITALS: TEMP 97.6
[2024-11-15 15:58] LABS: Basophils # (auto) 0 10 ^3/uL (0-0.2); Basophils % (auto) 0.6 % (0.0-2.0); Eosinophils # (auto) 0.1 10 ^3/uL (0-0.8); Eosinophils % (auto) 1.8 % (0.0-7.0); Hematocrit 43.3 % (36.0-46.0); Hemoglobin 13.9 g/dL (12.2-16.2); Lymphocytes # (auto) 1.4 10 ^3/uL (0.4-5.4); Lymphocytes % (auto) 30.9 % (10.0-50.0); Mean Corpuscular Hgb Conc. 32.1 g/dL (32.0-36.0); Mean Corpuscular Volume 93.4 fL (80.0-100.0); Monocytes # (auto) 0.5 10 ^3/uL (0-1.3); Monocytes % (auto) 10.2 % (0.0-12.0); Neutrophils # (auto) 2.6 10 ^3/uL (1.6-8.6); Neutrophils % (auto) 56.5 % (37.0-80.0); Nucleated Red Blood Cells % 0.1 %; Platelet Count (auto) 175 10^3/uL (140-450); Red Blood Cells 4.64 10^6/uL (4.0-5.20); Red Cell Distribution Width 17.4 % (11.8-14.3); White Blood Cell 4.7 10^3/uL (4.4-10.8)
[2024-11-15 16:11] LABS: Albumin 4.4 g/dL (3.2-4.8); Alkaline Phosphatase 75 U/L (46-116); Anion Gap 9 (5-15); BUN/Creatinine Ratio 11.7 (10.0-20.0); Blood Alcohol 3.4 mg/dL (<10); Blood Urea Nitrogen 9 mg/dL (9-23); Calcium 9.7 mg/dL (8.7-10.4); Carbon Dioxide 29 mmol/L (20-31); Glucose 79 mg/dL (74-106); Potassium 4.8 mmol/L (3.5-5.1)
[2024-11-15 16:15] LABS: Alanine Aminotransferase < 9 U/L (7-40); Aspartate Aminotransferase 10 U/L (13-40); Bilirubin, Total 0.2 mg/dL (0.2-1.0); Chloride 97 mmol/L (98-107); Sodium 135 mmol/L (136-145)
[2024-11-15 16:29] LABS: Urine Bacteria None Seen /hpf (None Seen)
[2024-11-15 16:57] LABS: Amphetamine Screen, Urine Neg (NEGATIVE); Barbiturate Scree,Urine Neg (NEGATIVE); Benzodiazephine Screen, Urine Neg (NEGATIVE); Cannabinoid Screen, Urine Neg (NEGATIVE); Cocaine Screen, Urine Neg (NEGATIVE); Opiate Scree,Urine Neg (NEGATIVE); Phencyclidine Screen, Urine Neg (NEGATIVE)
[2024-11-15 17:05] LABS: Urine Blood Negative /uL (Negative); Urine Clarity Clear (Clear); Urine Color Light-Yellow (Yellow); Urine Protein, UAD Negative (Negative); Urine Specific Gravity 1.014 (1.001-1.035); Urine Squamous Epithelial Cell FEW /hpf (<5); Urine Urobilinogen Normal (Negative); Urine WBC 1 /HPF (0-5); Urine pH 6.5 (5.0-9.0)
[2024-11-15 18:25] VITALS: BP 133/79; PULSE 80; RESP 16; O2SAT 93
[2024-11-15] MEDS: OLANZapine 5 MG TAB PO ONE (18:26)
[2024-11-15] MEDS: LORazepam 2MG/ML-1ML VIAL IM ONE (18:26)
--- NOTE | 2024-11-15 18:38 | ED.PDOC ---
Psychiatric HPI Comments 54 y.o female with PMHx of schizophrenia, depression, anxiety, BPD, PNA, and COPD, presents to the ED via EMS for an evaluation of hallucinations. EMS reported patient comes from [facility] care facility where staff reported patient's complaint. Patient reports she is "seeing gun and I feel like I am going to half-way" Patient is hard to redirect for conversation. And denies SI/HI or auditory hallucinations. She states she denies any recent acute illness or pain. Chief Complaint: Hallucinations Time Seen by MD: 18:13 Primary Care Provider: UNKNOWN Reviewed Notes: Nurses Notes, Care Program Director Notes, Medications, Allergies Information Source: Patient Mode of Arrival: EMS Severity: Unable to Care for Self, Unable to Control Self Severity of Pain: None Severity of Mental Status: Moderate Severity of Symptoms: Moderate Timing: Hours Duration: Since onset Presents with: None Stressors: None History of: Schizophrenia Associated signs and symptoms: Hallucinations Past Medical History PAST MEDICAL HISTORY: COPD, Gallstones, Schizophrenia, UTI'S Surgical History: Denies all surgeries CLINICAL RESEARCH COORDINATOR History: Denies all CLINICAL RESEARCH COORDINATOR Hx Family History Family History: Reviewed,noncontributory to illness Social History Smoker: Quit Less Than 1 Year, Cigarettes Alcohol: Denies ETOH Use Drugs: Denies Drug Use Lives In: Assisted Care, Prison Psychiatric: reports: schizophrenia Unable to Obtain due to: Other All Other Systems: Reviewed and Negative Physical Exam General Appearance: No Apparent Distress HEENT: PERRL/EOMI Neck: Full Range of Motion, Normal Inspection Respiratory: Lungs Clear, No Accessory Muscle Use, No Respiratory Distress, Normal Breath Sounds Cardiovascular: No Edema, No JVD, Regular Rate/Rhythm Breast Exam: Deferred Gastrointestinal: Non Tender, Soft Genitalia: Deferred Pelvic: Deferred Rectal: Deferred Extremities: Normal inspection, Normal range of motion, Non-tender, No pedal edema Neurologic: Alert (Oriented times 3), Normal Affect, Normal Mood, Other (Ambulatory. No gross focal deficit.) Cerebellar Function: NOT DONE Reflexes: NOT DONE Skin: Dry, Normal Color, Warm Lymphatic: NOT DONE Was a procedure done? Was a procedure done?: No Psych Differential Dx Psych. Differential Dx: Anxiety, Schizoprenia, Other (uti) OD Differential Dx: Alcohol Abuse Suicidal Differential Dx: Substance Abuse Intoxication Differential Dx: Electrolyte Imbalance X-Ray, Labs, Meds, VS Vital Signs Date Time Temp Pulse Resp B/P (MAP) Pulse Ox O2 Delivery O2 Flow Rate FiO2 11/15/24 18:25 80 16 133/79 (97) 93 11/15/24 15:23 97.6 88 16 118/60 (79) 93 97.6 11/15/24 15:15 97.6 88 16 118/60 (79) 93 Lab Test 11/15/24 16:33 11/15/24 16:00 11/15/24 15:45 Range/Units Troponin I High Sensitivity 11 10 </=34 ng/L Urine Color Light-yellow Yellow Urine Clarity Clear Clear Urine pH 6.5 5.0-9.0 Urine Specific Mallard 1.014 1.001-1.035 Urine Protein Negative Negative Urine Ketones Negative Negative Urine Blood Negative Negative /uL Urine Nitrite Negative Negative Urine Bilirubin Negative Negative Urine Urobilinogen Normal Negative mg/dL Urine Leukocyte Esterase Negative Negative /uL Urine RBC 1 0 - 4 /hpf Urine Microscopic WBC 1 0-5 /HPF Urine Squamous Epithelial Cells Few <5 /hpf Urine Bacteria None seen None Seen /hpf Urine Glucose Normal Normal mg/dL Urine Opiates Screen Neg NEGATIVE Urine Fentanyl Screen Neg NEGATIVE Urine Barbiturates Screen Neg NEGATIVE Urine Phencyclidine Screen Neg NEGATIVE Urine Amphetamines Screen Neg NEGATIVE Urine Benzodiazepines Screen Neg NEGATIVE Urine Cocaine Screen Neg NEGATIVE Urine Cannabinoids Screen Neg NEGATIVE White Blood Count 4.7 4.4-10.8 10^3/uL Red Blood Count 4.64 4.0-5.20 10^6/uL Hemoglobin 13.9 12.2-16.2 g/dL Hematocrit 43.3 36.0-46.0 % Mean Corpuscular Volume 93.4 80.0-100.0 fL Mean Corpuscular Hemoglobin 30.0 28.0-32.0 pg Mean Corpuscular Hemoglobin Concent 32.1 32.0-36.0 g/dL Red Cell Distribution Width 17.4 H 11.8-14.3 % Platelet Count 175 140-450 10^3/uL Mean Platelet Volume 8.9 6.9-10.8 fL Neutrophils (%) (Auto) 56.5 37.0-80.0 % Lymphocytes (%) (Auto) 30.9 10.0-50.0 % Monocytes (%) (Auto) 10.2 0.0-12.0 % Eosinophils (%) (Auto) 1.8 0.0-7.0 % Basophils (%) (Auto) 0.6 0.0-2.0 % Neutrophils # (Auto) 2.6 1.6-8.6 10 ^3/uL Lymphocytes # (Auto) 1.4 0.4-5.4 10 ^3/uL Monocytes # (Auto) 0.5 0-1.3 10 ^3/uL Eosinophils # (Auto) 0.1 0-0.8 10 ^3/uL Basophils # (Auto) 0 0-0.2 10 ^3/uL Nucleated Red Blood Cells 0.1 % Sodium Level 135 L 136-145 mmol/L Potassium Level 4.8 3.5-5.1 mmol/L Chloride Level 97 L 98-107 mmol/L Carbon Dioxide Level 29 20-31 mmol/L Anion Gap 9 5-15 Blood Urea Nitrogen 9 9-23 mg/dL Creatinine 0.77 0.550-1.02 mg/dL Glomerular Filtration Rate Calc 91 >90 mL/min BUN/Creatinine Ratio 11.7 10.0-20.0 Serum Glucose 79 74-106 mg/dL Calcium Level 9.7 8.7-10.4 mg/dL Total Bilirubin 0.2 0.2-1.0 mg/dL Aspartate Amino Transferase (AST) 10 L 13-40 U/L Alanine Aminotransferase (ALT) < 9 7-40 U/L Alkaline Phosphatase 75 46-116 U/L Total Protein 6.0 5.7-8.2 g/dL Albumin 4.4 3.2-4.8 g/dL Plasma/Serum Blood Alcohol 3.4 <10 mg/dL Current Medications Medications (Trade) Dose Ordered Sig/Elaine Route Start Time Stop Time Status Last Admin Lorazepam (Ativan Inj) 1 mg ONCE ONCE IM 11/15/24 18:15 11/15/24 18:16 DC 11/15/24 18:26 Olanzapine (ZyPREXA Tablet) 20 mg ONCE ONCE PO 11/15/24 18:15 11/15/24 18:16 DC 11/15/24 18:26 X-Ray, Labs, Meds, VS Comment 54 y.o female with PMHx of schizophrenia, depression, anxiety, BPD, PNA, and COPD, presents to the ED via EMS for an evaluation of hallucinations. Vitals unremarkable Exam unremarkable. Rhythm strip independently interpreted by me: Sinus rhythm, rate 88, no ectopy. CBC, metabolic panel, 2 serial troponins, UA, alcohol and drug screen unremarkable for any abnormality of acute significance Patient treated with the following in the ED: Ativan 1 mg IM, Zyprexa 20 mg p.o. On re-evaluation, patient is resting comfortably with stable vitals. She is not in distress. She denies SI/HI. She appears stable for discharge back to [facility]. Time of 1ST Reevaluation: 18:35 Reevaluation 1ST: Unchanged Time of 2ND Reevaluation: 19:35 Reevaluation 2ND: Improved Patient Education/Counseling: Other Family Education/Counseling: No Family Present Departure 1 Departure Time of Disposition: 19:35 Impression: Primary Impression: Hallucinations, unspecified Disposition: 03 [facility] F[facility] Condition: Stable Additional Instructions: Your blood and urine tests were unremarkable. Follow-up with your primary doctor in 1-2 days. Discharged With: Surveillance Analyst Critical Care Note Critical Care Time?: No Stability Stability form required: No Heart Score Heart Score: Heart Score Response (Comments) Value History N/A 0 EKG N/A 0 Age N/A 0 Risk Factors N/A 0 Troponin N/A 0 Total 0 I personally scribed for SHAHZAD SILVA MD ([email or web address]) on 11/15/24 at 18:38. Electronically submitted by Lizyz Cristobal ([facility]). SHAHZAD SILVA MD Nov 15, 2024 18:38
== END 2024-11-15 20:02 ==
LOC: EDUNIT# 15:07 → EDBD 15:07 → ER 15:07
DX: R44.3 Hallucinations, unspecified (principal); F41.9 Anxiety disorder, unspecified; J44.9 Chronic obstructive pulmonary disease, unspecified; F32.9 Major depressive disorder, single episode, unspecified; Z87.891 Personal history of nicotine dependence
CPT/HCPCS: 36415; 80053; 80307; 80320; 81001; 84484; 85025; 96372; 99283; J2060

== ENCOUNTER 2024-11-24 01:12 | Emergency (ER) | payer OTHER ==
[~2024-11-24] VITALS: Ht 165.1 cm; Wt 72.9 kg
[2024-11-24 01:17] VITALS: BP 121/78; PULSE 88; RESP 18; O2SAT 100
[2024-11-24] MEDS ORDERED: ACET500T58 PO (02:26)
--- NOTE | 2024-11-24 02:26 | ED.PDOC ---
Musculoskeletal HPI Comments 34-YEAR-OLD FEMALE PRESENTS TO ER WITH COMPLAINTS OF LEFT HIP PAIN X1 WEEK. PATIENT PRESENTS VIA EMS FROM [facility] IN [place] REPORTING THAT SHE STARTED EXPERIENCING NONTRAUMATIC LEFT HIP PAIN ONE WEEK AGO. SHE RATES HER CURRENT PAIN A 3/10 TO LEFT HIP WITHOUT RADIATION. DENIES USE OF MEDICATIONS FOR CURRENT SYMPTOMS. PATIENT PRESENTS TO ER AMBULATORY ON ARRIVAL, WITH STEADY GAIT, IN NO DISTRESS. DENIES FEVER, BODY ACHES, CHILLS, NIGHT SWEATS, FALLS, NUMBNESS/TINGLING, PELVIC PAIN OR ANY FURTHER SYMPTOMS/COMPLAINTS Chief Complaint: Lower Extremity Time Seen by MD: 01:36 Primary Care Provider: UNKNOWN Reviewed Notes: Nurses Notes, Medications, Allergies Allergies: Coded Allergies: Lactose (Verified Allergy, Severe, 11/15/24) Home Meds Active Scripts Acetaminophen (Acetaminophen) 500 Mg Tab, 500 MG PO Q4HPRN, #30 TAB 0 Refills Prov:KENTON PARTIDA 11/24/24 Baclofen (Baclofen) 20 Mg Tab, 1 TAB PO TID, #90 TAB 3 Refills Prov:MADHAV CASTRO 11/03/24 Acetaminophen (Acetaminophen) 500 Mg Tab, 500 MG PO Q4HP PRN, #20 TAB Prov:MAMI ESTRADA PAC 10/31/24 Ibuprofen (Ibuprofen) 600 Mg Tab, 1 TAB PO Q6HP PRN, #20 TAB Prov:MAMI ESTRADA PAC 10/31/24 Nitrofurantoin Monohydrate Mac (Macrobid) 100 Mg Cap, 100 MG PO BID for 7 Days, #14 CAP Prov:ANGELITO REYES MD 10/27/24 Nitrofurantoin (Nitrofurantoin) 100 Mg Cap, 100 MG PO BID for 10 Days, #20 CAP Prov:GURU BROWN MD 10/20/24 Fosfomycin Tromethamine (Fosfomycin Tromethamine) 3 Gm Pow, 3 GM PO ONCE for 1 Day, #1 POW Prov:GURU BROWN MD 10/20/24 Levofloxacin Hemihydrate (LEVOFLOXACIN) 750 Mg Tab, 750 MG PO DAILY for 10 Days, #10 TAB Prov:TONY THAKKAR 10/20/24 Olanzapine (OLANZAPINE) 5 Mg Tab, 10 MG PO [id number] PRN for 30 Days, #120 TAB Prov:TONY THAKKAR 09/29/24 Desmopressin Acetate (Ddavp Nasal) 1 Spr Sp, 1 SPR TONY DAILY for 30 Days, #1 UNIT Prov:TONY THAKKAR RESIDENT 09/29/24 Acetaminophen (Acetaminophen) 160 Mg/5 Ml Polina, 325 MG PO Q6HR PRN for 10 Days, #30 UNIT Prov:TONY THAKKAR RESIDENT 09/29/24 Ondansetron Odt 4MG Tab (ZOFRAN PO) 4 Mg Tb, 4 MG PO TIDPRN PRN for 7 Days, #21 TAB ODT TAB-DISSOLVE IN MOUTH, THEN SWALLOW Prov:CHRISTAL ABRAHAM MD 07/08/24 Reported Medications Divalproex Sodium (Divalproex Sodium) 500 Mg Tab, 500 MG PO BID for 30 Days, MG 10/19/24 Midodrine HCl (Midodrine HCl) 10 Mg Tab, 10 MG, TAB 10/19/24 Pantoprazole Sodium Sesquihydr (Protonix) 40 Mg Tab, 40 MG PO DAILY, #30 TAB 10/19/24 Cyclobenzaprine Hcl (Cyclobenzaprine Hcl) 10 Mg Tab, 10 MG PO for 30 Days, MG 10/19/24 Albuterol Sulfate (Albuterol Sulfate (5 mg/ml) 0.5%) 1 Neb Neb, 1 NEB IN, INH 10/19/24 Haloperidol (Haldol) 5 Mg Tb, 3 MG PO BID, MG 03/15/24 Benztropine Mesylate (Benztropine Mesylate) 1 Mg Tab, 1 MG PO BID, MG 03/15/24 Trazodone Hcl (Trazodone Hcl) 50 Mg Tab, 75 MG PO HS, MG 03/15/24 Lorazepam (ATIVAN TABLET) 0.5 Mg Tb, 0.5 MG PO Q4HPRN PRN for ANXIETY, TAB 03/15/24 Information Source: Patient Mode of Arrival: EMS Past Medical History PAST MEDICAL HISTORY: COPD, Gallstones, Schizophrenia, UTI'S Surgical History: Denies all surgeries LINE DANCER History: Denies all LINE DANCER Hx Family History Family History: Reviewed,noncontributory to illness Social History Smoker: Quit Less Than 1 Year, Cigarettes Alcohol: Denies ETOH Use Drugs: Denies Drug Use Lives In: Assisted Care Constitutional: denies: chills, diaphoresis, fatigue, fever, malaise, sweats, weakness, others EENTM: denies: blurred vision, double vision, ear bleeding, ear discharge, ear drainage, ear pain, ear ringing, eye pain, eye redness, hearing loss, mouth pain, mouth swelling, nasal discharge, nose bleeding, nose congestion, nose pain, photophobia, tearing, throat pain, throat swelling, voice changes, others Respiratory: denies: cough, hemoptysis, orthopnea, SOB at rest, shortness of breath, SOB with excertion, stridor, wheezing, others Cardiovascular: denies: chest pain, dizzy spells, diaphoresis, Dyspnea on exertion, edema, irregular heart beat, left arm pain, lightheadedness, palpitations, PND, syncope, others Gastrointestinal: denies: abdomen distended, abdominal pain, blood streaked bowels, constipated, diarrhea, dysphagia, difficulty swallowing, hematemesis, melena, nausea, poor appetite, poor fluid intake, rectal bleeding, rectal pain, vomiting, others Genitourinary: denies: abnormal vagina bleeding, burning, dyspareunia, dysuria, flank pain, frequency, hematuria, incontinence, pain, , vagina discharge, urgency, others Neurological: denies: dizziness, fainting, headache, left sided numbness, left sided weakness, numbness, paresthesia, pre-existing deficit, right sided numbness, right sided weakness, seizure, speech problems, tingling, tremors, weakness, others Musculoskeletal: reports: others ( STATED IN HPI) Integumetry: denies: bruises, change in color, change in hair/nails, dryness, laceration, lesions, lumps, rash, wounds, others Allergic/Immunocompromised: denies: Difficulty Healing, Frequent Infections, Hives, Itching, others Hematologic/Lymphatic: denies: anemia, blood clots, easy bleeding, easy bruising, swollen glands, others Endocrine: denies: excessive hunger, excessive sweating, excessive thirst, excessive urination, flushing, intolerance to cold, intolerance to heat, unexplained weight gain, unexplained weight loss, others Psychiatric: denies: anxiety, bipolar disorder, depression, hopeless, panic disorder, schizophrenia, sleepless, suicidal, others Physical Exam General Appearance: No Apparent Distress HEENT: PERRL/EOMI Neck: Full Range of Motion, Non-Tender, Normal Respiratory: Chest Non-Tender, Lungs Clear, No Accessory Muscle Use, No R espiratory Distress, Normal Breath Sounds Cardiovascular: No Murmur, No Gallop, Regular Rate/Rhythm Breast Exam: Deferred Gastrointestinal: NOT DONE Genitalia: Deferred Pelvic: Deferred Rectal: Deferred Extremities: Normal capillary refill, Normal range of motion Musculoskeletal : Extremity Location: Hip (TTP TO LEFT HIP NOTED. NO SKIN CHANGES APPRECIATED. NO INTERNAL ROTATION/SHORTENING TO BILATERAL LIMBS NOTED. PULSES INTACT. STEADY GAIT NOTED) Neurologic: Alert, department store manager II-XII nml as Tested, No Motor Deficits, Normal Affect, Normal Mood, No Sensory Deficits Cerebellar Function: Normal Reflexes: Normal Skin: Dry, Normal Color, Warm Peripheral Pulses: 2+ femoral (R), 2+ femoral (L), 2+ dorsalis pedis (R), 2+ dorsalis pedis (L) Lymphatic: No Adenopathy Was a procedure done? Was a procedure done?: No Sedation Sedation?: No Differential Diagnosis EXT Differential Diagnosis: Fracture, Dislocation, Neurovascular injury X-Ray, Labs, Meds, VS Vital Signs Date Time Temp Pulse Resp B/P (MAP) Pulse Ox O2 Delivery O2 Flow Rate FiO2 11/24/24 01:17 98.0 88 18 121/78 (92) 100 PATIENT: NATIVIDAD URBAN MACCT: [id number] UNIT: [id number] : 1970 LOC: ER ROOM / BED: / AGE / SEX: 54 / F ADM STATUS: REG ER SERVICE 0215 ORDERING PHYSICIAN: KENTON PARTIDA PROCEDURE(s): LHIP - L HIP COMPLETE XRAY REASON: LEFT HIP PAIN ORDER NUMBER(s): [id number], ACCESSION NUMBER(s): [id number] XY L HIP COMPLETE XRAY INDICATION: LEFT HIP PAIN TECHNICAL DATA: Frontal and frog lateral views were obtained of the left hip.] COMPARISON: XY R HIP COMPLETE XRAY on DOS: 11/11/23 IMPRESSION: 3 views of the left hip were obtained. No acute fracture or dislocation. Joint spaces preserved. Progress ring appears intact. ATED BY: CLAUDIO HOLLEY MD DICTATED DATE/TIME: 11/24/24339 SIGNED BY: CLAUDIO HOLLEY MD SIGNED DATE/TIME: 11/24/24339 CC: LEFT HIP X-RAY REVIEWED PATIENT NEUROVASCULARLY INTACT AND IN NO DISTRESS DURING ER VISIT/PRIOR TO DISCHARGE ADVISED ON REST/NO STRENUOUS ACTIVITY ADVISED TO FOLLOW UP WITH PCP IN 1-2 DAYS PATIENT VERBALIZED UNDERSTANDING AND AGREEABLE WITH CURRENT PLAN OF CARE ADVISED TO RETURN TO ER IMMEDIATELY IF SYMPTOMS WORSE Images Reviewed?: Images reviewed and evaluated by me Time of 1ST Reevaluation: 02:02 Reevaluation 1ST: N/A Patient Education/Counseling: Diagnosis, Treatment, Prognosis, Need For Follow Up Family Education/Counseling: No Family Present Departure 1 Departure Time of Disposition: 02:22 Impression: Primary Impression: Contusion of hip, left Qualified Codes: S70.02XA - Contusion of left hip, initial encounter Disposition: HOME / SELF CARE / HOMELESS ([facility]) Condition: Stable e-Prescriptions Acetaminophen (Acetaminophen) 500 Mg Tab 500 MG PO Q4HPRN, #30 TAB 0 Refills Prov: KENTON PARTIDA 11/24/24 Discharged With: Friend Critical Care Note Critical Care Time?: No Stability Stability form required: No Heart Score Heart Score: Heart Score Response (Comments) Value History N/A 0 EKG N/A 0 Age N/A 0 Risk Factors N/A 0 Troponin N/A 0 Total 0 KENTON PARTIDA Nov 24, 2024 02:26
--- NOTE | 2024-11-24 03:43 | DVH ---
XY L HIP COMPLETE XRAY INDICATION: LEFT HIP PAIN TECHNICAL DATA: Frontal and frog lateral views were obtained of the left hip.] COMPARISON: XY R HIP COMPLETE XRAY on DOS: 11/11/23 IMPRESSION: 3 views of the left hip were obtained. No acute fracture or dislocation. Joint spaces preserved. Pr ogress ring appears intact.
== END 2024-11-24 03:50 | disposition home or self-care (01) ==
LOC: EDBD 01:12 → ER 01:12
DX: S70.02XA Contusion of left hip, initial encounter (principal); J44.9 Chronic obstructive pulmonary disease, unspecified; Z87.891 Personal history of nicotine dependence; Z79.899 Other long term (current) drug therapy; Z88.8 Allergy status to other drugs, medicaments and biological substances; X58.XXXA Exposure to other specified factors, initial encounter; Y93.89 Activity, other specified; Y92.89 Other specified places as the place of occurrence of the external cause; Y99.8 Other external cause status
CPT/HCPCS: 73502

== ENCOUNTER 2024-12-10 09:12 | Emergency (ER) | payer OTHER ==
[~2024-12-10] VITALS: Ht 165.1 cm; Wt 59.0 kg
[2024-12-10 09:38] VITALS: BP 132/82; PULSE 83; RESP 18; TEMP 97.5; O2SAT 98
--- NOTE | 2024-12-10 09:48 | ED.PDOC ---
Musculoskeletal HPI Comments A 54 YEAR OLD FEMALE KITTY PRESENTS TO THE ED WITH CHIEF COMPLAINT OF LEFT LOWER BACK AND HIP PAIN. PATIENT REPORTS THAT SHE HAS BEEN EXPERIENCING LEFT LOWER BACK PAIN THAT RADIATES TO HER LEFT HIP FOR THE PAST 2 WEEKS WITH NO INJURY NOTED. PATIENT RELAYS THAT ON AN UNRELATED NOTE SHE HAS BEEN HEARING VOICES DUE TO HISTORY OF SCHIZOPHRENIA AND NORMALLY HAS HALDOL 5MG DAILY, BUT DID NOT GET A DOSE TODAY. PT REQUESTS ONE DOSE HALDOL AT THIS TIME. PT HAS HX OF DDD OF LOWER BACK AND HAD MRI OF LS-SPINE PERFORMED IN JANUARY 2024 NOTING DEGENERATIVE CHANGES AND A COMPRESSION FRACTURE TO L2. PATIENT WAS SEEN IN THE ED LAST WEEK FOR SAME COMPLAINT, LEFT HIP XR NORMAL. PATIENT DENIES ANY NUMBNESS, WEAKNESS, FALL, SI/HI, CHEST PAIN, LEG PAIN, URINATION AND BOWEL INCONTINENCE, OR FURTHER INJURY. NO OTHER SYMPTOMS REPORTED AT THIS TIME OF CARE. Chief Complaint: Lower Extremity Time Seen by MD: 09:37 Primary Care Provider: UNKNOWN Reviewed Notes: Nurses Notes, Internal Medicine Specialist Notes, Medications, Allergies Allergies: Coded Allergies: Lactose (Verified Allergy, Severe, 11/15/24) Home Meds Active Scripts Ibuprofen (Ibuprofen) 800 Mg Tab, 1 TAB PO TID, #20 TAB Prov:RAMIRO HANKS 12/10/24 Acetaminophen (Acetaminophen) 500 Mg Tab, 500 MG PO Q4HPRN, #30 TAB 0 Refills Prov:KENTON PARTIDA 11/24/24 Baclofen (Baclofen) 20 Mg Tab, 1 TAB PO TID, #90 TAB 3 Refills Prov:MADHAV CASTROP 11/03/24 Acetaminophen (Acetaminophen) 500 Mg Tab, 500 MG PO Q4HP PRN, #20 TAB Prov:MAMI ESTRADA PAC 10/31/24 Ibuprofen (Ibuprofen) 600 Mg Tab, 1 TAB PO Q6HP PRN, #20 TAB Prov:MAMI ESTRADA PAC 10/31/24 Nitrofurantoin Monohydrate Mac (Macrobid) 100 Mg Cap, 100 MG PO BID for 7 Days, #14 CAP Prov:ANGELITO REYES MD 10/27/24 Nitrofurantoin (Nitrofurantoin) 100 Mg Cap, 100 MG PO BID for 10 Days, #20 CAP Prov:GURU BROWN MD 10/20/24 Fosfomycin Tromethamine (Fosfomycin Tromethamine) 3 Gm Pow, 3 GM PO ONCE for 1 Day, #1 POW Prov:GURU BROWN MD 10/20/24 Levofloxacin Hemihydrate (LEVOFLOXACIN) 750 Mg Tab, 750 MG PO DAILY for 10 Days, #10 TAB Prov:PORTER TONY Patino RESIDENT 10/20/24 Olanzapine (OLANZAPINE) 5 Mg Tab, 10 MG PO [id number] PRN for 30 Days, #120 TAB Prov:PORTER SukumarTONY RESIDENT 09/29/24 Desmopressin Acetate (Ddavp Nasal) 1 Spr Sp, 1 SPR TONY DAILY for 30 Days, #1 UNIT Prov:PORTERTONY SEPULVEDA RESIDENT 09/29/24 Acetaminophen (Acetaminophen) 160 Mg/5 Ml Polina, 325 MG PO Q6HR PRN for 10 Days, #30 UNIT Prov:GERMAN SukumarTONY RESIDENT 09/29/24 Ondansetron Odt 4MG Tab (ZOFRAN PO) 4 Mg Tb, 4 MG PO TIDPRN PRN for 7 Days, #21 TAB ODT TAB-DISSOLVE IN MOUTH, THEN SWALLOW Prov:CHRISTAL ABRAHAM MD 07/08/24 Reported Medications Divalproex Sodium (Divalproex Sodium) 500 Mg Tab, 500 MG PO BID for 30 Days, MG 10/19/24 Midodrine HCl (Midodrine HCl) 10 Mg Tab, 10 MG, TAB 10/19/24 Pantoprazole Sodium Sesquihydr (Protonix) 40 Mg Tab, 40 MG PO DAILY, #30 TAB 10/19/24 Cyclobenzaprine Hcl (Cyclobenzaprine Hcl) 10 Mg Tab, 10 MG PO for 30 Days, MG 10/19/24 Albuterol Sulfate (Albuterol Sulfate (5 mg/ml) 0.5%) 1 Neb Neb, 1 NEB IN, INH 10/19/24 Haloperidol (Haldol) 5 Mg Tb, 3 MG PO BID, MG 03/15/24 Benztropine Mesylate (Benztropine Mesylate) 1 Mg Tab, 1 MG PO BID, MG 03/15/24 Trazodone Hcl (Trazodone Hcl) 50 Mg Tab, 75 MG PO HS, MG 03/15/24 Lorazepam (ATIVAN TABLET) 0.5 Mg Tb, 0.5 MG PO Q4HPRN PRN for ANXIETY, TAB 03/15/24 Information Source: Patient, Emergency Med Personnel Mode of Arrival: EMS Location: Left Extremity Location: Back, Hip Timing: Days Prehospital treatment: None Severity: Moderate Able to Move Extremity: Yes Bear Weight: Limited Pain: Moderate Mechanism: Spontaneous Circumstances: Spontaneous Onset of Symptoms: Spontaneous Symptoms: Pain DVT Risk Factors: NONE Last Tetanus: Unknown Associated signs and symptoms: Back pain, Hip pain Past Medical History PAST MEDICAL HISTORY: COPD, Gallstones, Schizophrenia, UTI'S Past Medical History (Other): BIPOLAR CHRONIC LOW BACK PAIN, DDD OF LOWER BACK, L2 COMPRESSION FX Surgical History: Denies all surgeries MANAGER MARKETING History: Denies all MANAGER MARKETING Hx Family History Family History: Reviewed,noncontributory to illness Social History Smoker: Quit Less Than 1 Year, Cigarettes Alcohol: Denies ETOH Use Drugs: Denies Drug Use Lives In: Assisted Care Constitutional: denies: chills, diaphoresis, fatigue, fever, malaise, sweats, weakness, others EENTM: denies: blurred vision, double vision, ear bleeding, ear discharge, ear drainage, ear pain, ear ringing, eye pain, eye redness, hearing loss, mouth pain, mouth swelling, nasal discharge, nose bleeding, nose congestion, nose pain, photophobia, tearing, throat pain, throat swelling, voice changes, others Respiratory: denies: cough, hemoptysis, orthopnea, SOB at rest, shortness of breath, SOB with excertion, stridor, wheezing, others Cardiovascular: denies: chest pain, dizzy spells, diaphoresis, Dyspnea on exertion, edema, irregular heart beat, left arm pain, lightheadedness, palpitations, PND, syncope, others Gastrointestinal: denies: abdomen distended, abdominal pain, blood streaked bowels, constipated, diarrhea, dysphagia, difficulty swallowing, hematemesis, melena, nausea, poor appetite, poor fluid intake, rectal bleeding, rectal pain, vomiting, others Genitourinary: denies: abnormal vagina bleeding, burning, dyspareunia, dysuria, flank pain, frequency, hematuria, incontinence, pain, , vagina discharge, urgency, others Neurological: denies: dizziness, fainting, headache, left sided numbness, left sided weakness, numbness, paresthesia, pre-existing deficit, right sided numbnes s, right sided weakness, seizure, speech problems, tingling, tremors, weakness, others Musculoskeletal: reports: back pain (LEFT LOWER BACK), muscle pain, others (LEFT HIP PAIN); denies: gout, joint pain, joint swelling, muscle stiffness, neck pain Integumetry: denies: bruises, change in color, change in hair/nails, dryness, laceration, lesions, lumps, rash, wounds, others Allergic/Immunocompromised: denies: Difficulty Healing, Frequent Infections, Hives, Itching, others Hematologic/Lymphatic: denies: anemia, blood clots, easy bleeding, easy bruising, swollen glands, others Endocrine: denies: excessive hunger, excessive sweating, excessive thirst, excessive urination, flushing, intolerance to cold, intolerance to heat, unexplained weight gain, unexplained weight loss, others Psychiatric: denies: anxiety, bipolar disorder, depression, hopeless, panic disorder, schizophrenia, sleepless, suicidal, others All Other Systems: Reviewed and Negative Physical Exam General Appearance: No Apparent Distress, Normal HEENT: Normal ENT Inspection, PERRL/EOMI Neck: Full Range of Motion, Non-Tender, Normal, Normal Inspection Respiratory: Chest Non-Tender, Lungs Clear, No Accessory Muscle Use, No Respiratory Distress, Normal Breath Sounds Cardiovascular: No Edema, No JVD, No Murmur, No Gallop, Normal Peripheral Pulses, Regular Rate/Rhythm Breast Exam: Deferred Gastrointestinal: No Organomegaly, Non Tender, No Pulsatile Mass, Normal Bowel Sounds, Soft Genitalia: Deferred Pelvic: Deferred Rectal: Deferred Extremities: No calf tenderness, Normal capillary refill, Normal inspection, Normal range of motion, Non-tender, No pedal edema Musculoskeletal : Location: Bilateral Extremity Location: Back Apperance: Tenderness (ON LOWER BACK, NO BONY TENDERNESS, SWELLING AND DEFORMITY. ) Neurologic: Alert, diagram clerk II-XII nml as Tested, No Motor Deficits, Normal Affect, Normal Mood, No Sensory Deficits Cerebellar Function: Normal Reflexes: Normal Skin: Dry, Normal Color, Warm Peripheral Pulses: 2+ carotid (R), 2+ carotid (L), 2+ femoral (L), 2+ dorsalis pedis (R) Lymphatic: No Adenopathy Was a procedure done? Was a procedure done?: No Differential Diagnosis EXT Differential Diagnosis: Fracture, Sprain, Contusion, Strain, Other (DDD OF LOWER BACK, PAIN MANAGEMENT ) X-Ray, Labs, Meds, VS Vital Signs Date Time Temp Pulse Resp B/P (MAP) Pulse Ox O2 Delivery O2 Flow Rate FiO2 12/10/24 09:38 83 18 98 Room Air 12/10/24 09:38 97.5 83 18 132/82 (99) 98 97.5 12/10/24 09:26 97.5 83 18 132/82 (99) 98 97.5 Current Medications Medications (Trade) Dose Ordered Sig/Elaine Route Start Time Stop Time Status Last Admin Haloperidol (Haldol Tablet) 5 mg ONCE ONCE PO 12/10/24 10:30 12/10/24 10:31 DC 12/10/24 10:35 Acetaminophen (Tylenol Tablet Or Capsule) 1,000 mg ONCE ONCE PO 12/10/24 10:30 12/10/24 10:31 DC 12/10/24 10:35 FINDINGS/IMPRESSION: There is a age indeterminate vertebral compression fracture of the L2 vertebral body with greater than 50% loss of vertebral body height. Mild multilevel degenerative disc disease of the lumbosacral spine. Diffuse osteopenia. X-Ray, Labs, Meds, VS Comment EXTERNAL MEDICAL RECORDS REVIEWED: [NONE] INDEPENDENT HISTORIANS: [NONE] SOCIAL DETERMINANTS OF HEALTH: COPD, SCHIZOPHRENIA LABS ORDERED: NONE REVIEWED AND INTERPRETED RESULTS: L-S SPINE XR OLD L2 COMPRESSION FRACTURE NOTED, OTHERWISE DDD NOTED THROUGHOUT. IMAGING ORDERED: L-S SPINE XT TREATMENTS ORDERED: HALDOL 5MG PO, TYLENOL 1G PO PROCEDURES PERFORMED: NONE CRITICAL CARE TIME: NONE I HAVE DISCUSSED THE PATIENT WITH THE ATTENDING PHYSICIAN DR. WATKINS AND HE AGREES WITH THE PATIENT'S PLAN OF CARE AND DISPOSITION. BASED ON HISTORY OF PRESENT ILLNESS, AND PHYSICAL EXAM, PATIENT WILL BE DISCHARGED HOME. DISCUSSED PLAN FOR DISCHARGE HOME WITH RX: MOTRIN 800MG. MEDICATION WARNINGS GIVEN. SHARED DECISION MAKING: DISCUSSED WITH PATIENT THAT THEIR WORKUP WAS NORMAL. PATIENT INSTRUCTED TO FOLLOW UP WITH PRIMARY CARE PROVIDER IN 1-2 DAYS FOR RE- EVALUATION OF SYMPTOMS. PATIENT VERBALIZES UNDERSTANDING TO RETURN TO ED FOR NEW OR WORSENING SYMPTOMS OR IF FOLLOW UP WITH PCP CANNOT BE OBTAINED. PATIENT FEELS COMFORTABLE GOING HOME AT THIS TIME. ALL QUESTIONS ADDRESSED AT TIME OF DISCHARGE. Time of 1ST Reevaluation: 13:24 Reevaluation 1ST: Improved Patient Education/Counseling: Diagnosis, Treatment, Need For Follow Up Family Education/Counseling: Diagnosis, Treatment, Need For Follow Up Medical Screening: No EMC Exist At This Time Departure 1 Departure Time of Disposition: 13:25 Impression: Primary Impression: DDD (degenerative disc disease), lumbosacral Qualified Codes: M51.372 - Other intervertebral disc degeneration, lumbosacral region with discogenic back pain and lower extremity pain Additional Impressions: Lumbar radiculopathy History of schizophrenia Disposition: HOME / SELF CARE / HOMELESS Condition: Stable Additional Instructions: FOLLOW-UP WITH PCP IN 1 TO 2 DAYS. TAKE MEDICATIONS PRESCRIBED. RETURN TO ED FOR ANY NEW OR WORSENING SYMPTOMS. e-Prescriptions Ibuprofen (Ibuprofen) 800 Mg Tab 1 TAB PO TID, #20 TAB Prov: RAMIRO HANKS 12/10/24 Discharged With: Self, Mechanic Insulator Critical Care Note Critical Care Time?: No Stability Stability form required: No Heart Score Heart Score: Heart Score Response (Comments) Value History N/A 0 EKG N/A 0 Age N/A 0 Risk Factors N/A 0 Troponin N/A 0 Total 0 I personally scribed for RAMIRO HANKS ([email or web address]) on 12/10/24 at 09:48. Electronically submitted by Ramón Alvarado ([email or web address]). I personally scribed for RAMIRO HANKS ([email or web address]) on 12/10/24 at 09:49. Electronically submitted by Ramón Alvarado ([email or web address]). I personally scribed for RAMIRO HANKS ([email or web address]) on 12/10/24 at 10:56. Electronically submitted by Ramón Alvarado ([email or web address]). I personally scribed for LIZETTE WATKINS MD ([email or web address]) on 12/10/24 at 12:42. Electronically submitted by Ramón Alvarado ([email or web address]). RAMIRO HANKS Dec 10, 2024 09:48 LIZETTE WATKINS MD Dec 10, 2024 12:42
[2024-12-10] MEDS: ACETAMINOPHEN 325 MG TAB PO ONE ×2 (10:23)
[2024-12-10] MEDS: HALOPERIDOL 5 MG TAB PO ONE ×3 (10:23→10:35)
[2024-12-10] MEDS ORDERED: ACETAMINOPHEN 325 MG TAB PO ONE (10:30)
[2024-12-10] MEDS: ACETAMINOPHEN 500 MG TAB or CAP PO ONE (10:35)
[2024-12-10] MEDS ORDERED: IBUP-1456 PO (11:27)
--- NOTE | 2024-12-10 12:29 | DVH ---
INDICATION: LOW BACK PAIN TO LEFT BUTTOCK COMPARISON: None TECHNIQUE: 3 views of the lumbar spine were obtained. FINDINGS/IMPRESSION: There is a age indeterminate vertebral compression fracture of the L2 vertebral body with greater haven n 50% loss of vertebral body height. Mild multilevel degenerative disc disease of the lumbosacral sp ine. Diffuse osteopenia.
== END 2024-12-10 11:18 ==
LOC: EDBD 09:12 → ER 09:12
DX: M51.16 Intervertebral disc disorders with radiculopathy, lumbar region (principal); F20.9 Schizophrenia, unspecified; G89.29 Other chronic pain; J44.9 Chronic obstructive pulmonary disease, unspecified; F31.9 Bipolar disorder, unspecified; Z79.1 Long term (current) use of non-steroidal anti-inflammatories (NSAID); Z79.899 Other long term (current) drug therapy
CPT/HCPCS: 72100

== ENCOUNTER 2025-02-24 23:22 | Emergency (ER) | payer OTHER ==
[~2025-02-24] VITALS: Ht 157.5 cm; Wt 59.0 kg
[~2025-02-24 23:22] MED LIST changes: +IBUP-1456 PO
--- NOTE | 2025-02-25 00:20 | ED.PDOC ---
History of Present Illness HPI Comments 54-year-old female is brought in by ambulance from [facility] for altered level of consciousness, today. Per EMS report, faculty called after endorsing on patient acting unusual from her her baseline self. Abnormal behavior includes yelling sporadically and speaking incoherently. No known rec ent ailments or injuries. No other associated symptoms reported, such as any urinary symptoms, fever, or chills. Chief Complaint: Mental Health Time Seen by MD: 23:50 Primary Care Provider: UNKNOWN Reviewed Notes: Nurses Notes, Cart Attendant Notes, Medications, Allergies Allergies: Coded Allergies: Lactose (Verified Allergy, Severe, 11/15/24) Home Meds Active Scripts Ibuprofen (Ibuprofen) 800 Mg Tab, 1 TAB PO TID, #20 TAB Prov:RAMIRO HANKS PA 12/10/24 Acetaminophen (Acetaminophen) 500 Mg Tab, 500 MG PO Q4HPRN, #30 TAB 0 Refills Prov:KENTON PARTIAD 11/24/24 Baclofen (Baclofen) 20 Mg Tab, 1 TAB PO TID, #90 TAB 3 Refills Prov:MADHAV CASTRO CONTENT ARCHITECT 11/03/24 Acetaminophen (Acetaminophen) 500 Mg Tab, 500 MG PO Q4HP PRN, #20 TAB Prov:MAMI ESTRADA PAC 10/31/24 Ibuprofen (Ibuprofen) 600 Mg Tab, 1 TAB PO Q6HP PRN, #20 TAB Prov:MAMI ESTRADA PAC 10/31/24 Nitrofurantoin Monohydrate Mac (Macrobid) 100 Mg Cap, 100 MG PO BID for 7 Days, #14 CAP Prov:ANGELITO REYES MD 10/27/24 Nitrofurantoin (Nitrofurantoin) 100 Mg Cap, 100 MG PO BID for 10 Days, #20 CAP Prov:GURU BROWN MD 10/20/24 Fosfomycin Tromethamine (Fosfomycin Tromethamine) 3 Gm Pow, 3 GM PO ONCE for 1 Day, #1 POW Prov:GURU BROWN MD 10/20/24 Levofloxacin Hemihydrate (LEVOFLOXACIN) 750 Mg Tab, 750 MG PO DAILY for 10 Days, #10 TAB Prov:TONY THAKKAR 10/20/24 Olanzapine (OLANZAPINE) 5 Mg Tab, 10 MG PO [id number] PRN for 30 Days, #120 TAB Prov:TONY THAKKAR RESIDENT 09/29/24 Desmopressin Acetate (Ddavp Nasal) 1 Spr Sp, 1 SPR TONY DAILY for 30 Days, #1 UNIT Prov:TONY THAKKAR RESIDENT 09/29/24 Acetaminophen (Acetaminophen) 160 Mg/5 Ml Polina, 325 MG PO Q6HR PRN for 10 Days, #30 UNIT Prov:TONY THAKKAR RESIDENT 09/29/24 Ondansetron Odt 4MG Tab (ZOFRAN PO) 4 Mg Tb, 4 MG PO TIDPRN PRN for 7 Days, #21 TAB ODT TAB-DISSOLVE IN MOUTH, THEN SWALLOW Prov:CHRISTAL ABRAHAM MD 07/08/24 Reported Medications Divalproex Sodium (Divalproex Sodium) 500 Mg Tab, 500 MG PO BID for 30 Days, MG 10/19/24 Midodrine HCl (Midodrine HCl) 10 Mg Tab, 10 MG, TAB 10/19/24 Pantoprazole Sodium Sesquihydr (Protonix) 40 Mg Tab, 40 MG PO DAILY, #30 TAB 10/19/24 Cyclobenzaprine Hcl (Cyclobenzaprine Hcl) 10 Mg Tab, 10 MG PO for 30 Days, MG 10/19/24 Albuterol Sulfate (Albuterol Sulfate (5 mg/ml) 0.5%) 1 Neb Neb, 1 NEB IN, INH 10/19/24 Haloperidol (Haldol) 5 Mg Tb, 3 MG PO BID, MG 03/15/24 Benztropine Mesylate (Benztropine Mesylate) 1 Mg Tab, 1 MG PO BID, MG 03/15/24 Trazodone Hcl (Trazodone Hcl) 50 Mg Tab, 75 MG PO HS, MG 03/15/24 Lorazepam (ATIVAN TABLET) 0.5 Mg Tb, 0.5 MG PO Q4HPRN PRN for ANXIETY, TAB 03/15/24 Information Source: Emergency Med Personnel Mode of Arrival: EMS Severity: Moderate Timing: Hours Duration: Since onset Prehospital treatment: 12 Lead EKG, Accucheck, Distribution Lead Past Medical History PAST MEDICAL HISTORY: COPD, Gallstones, Schizophrenia, UTI'S Surgical History: Denies all surgeries FUR DRESSING SUPERVISOR History: Denies all FUR DRESSING SUPERVISOR Hx Family History Family History: Reviewed,noncontributory to illness Social History Smoker: Quit Less Than 1 Year, Cigarettes Alcohol: Denies ETOH Use Drugs: Denies Drug Use Lives In: Assisted Care (Board and care) All Other Systems: Reviewed and Negative (Unable to obtain due to patient's current condition) Physical Exam General Appearance: No Apparent Distress, Normal HEENT: Normal ENT Inspection, Pharynx Normal, TMs Normal Neck: Full Range of Motion, Non-Tender, Normal, Normal Inspection Respiratory: Chest Non-Tender, Lungs Clear, No Accessory Muscle Use, No Respiratory Distress, Normal Breath Sounds Cardiovascular: No Edema, No JVD, No Murmur, No Gallop, Normal Peripheral Pulses, Regular Rate/Rhythm Breast Exam: Deferred Gastrointestinal: No Organomegaly, Non Tender, No Pulsatile Mass, Normal Bowel Sounds, Soft Genitalia: Deferred Pelvic: Deferred Rectal: Deferred Extremities: No calf tenderness, Normal capillary refill, Normal inspection, Normal range of motion, Non-tender, No pedal edema Musculoskeletal : Apperance: Normal Neurologic: Alert, ceramic tile setter II-XII 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 Was a procedure done?: No Differential Dx Considerations may include: Encephalopathy, electrolyte imbalance, viral syndrome, dehydration, UTI, among o thers X-Ray, Labs, Meds, VS Vital Signs Date Time Temp Pulse Resp B/P (MAP) Pulse Ox O2 Delivery O2 Flow Rate FiO2 02/26/25 08:00 98.2 78 20 124/68 (86) 94 98.2 02/26/25 08:00 78 20 94 Room Air* 0 21 02/25/25 23:29 97.8 84 22 123/67 (85) 93 97.8 02/25/25 20:20 16 Room Air* 0 21 02/25/25 08:54 99 19 87 Room Air* 0 21 02/25/25 08:54 98.4 99 19 126/75 (92) 87 98.4 02/24/25 23:25 98.4 87 16 11/78 (56) 100 98.4 Lab Test 02/25/25 17:03 02/25/25 01:02 Range/Units Urine Color Light-yellow Yellow Urine Clarity Clear Clear Urine pH 7.0 5.0-9.0 Urine Specific [place] 1.005 1.001-1.035 Urine Protein Negative Negative Urine Ketones Negative Negative Urine Blood Negative Negative /uL Urine Nitrite Negative Negative Urine Bilirubin Negative Negative Urine Urobilinogen Normal Negative mg/dL Urine Leukocyte Esterase 1+ Negative /uL Urine RBC <1 0 - 4 /hpf Urine Microscopic WBC 7 H 0-5 /HPF Urine Squamous Epithelial Cells Few <5 /hpf Urine Transitional Epithelial Cells Few <2 /hpf Urine Bacteria None seen None Seen /hpf Urine Glucose Normal Normal mg/dL Urine Opiates Screen Neg NEGATIVE Urine Fentanyl Screen Neg NEGATIVE Urine Barbiturates Screen Neg NEGATIVE Urine Phencyclidine Screen Neg NEGATIVE Urine Amphetamines Screen Neg NEGATIVE Urine Benzodiazepines Screen Neg NEGATIVE Urine Cocaine Screen Neg NEGATIVE Urine Cannabinoids Screen Neg NEGATIVE White Blood Count 4.6 4.4-10.8 10^3/uL Red Blood Count 4.50 4.0-5.20 10^6/uL Hemoglobin 13.8 12.2-16.2 g/dL Hematocrit 41.4 36.0-46.0 % Mean Corpuscular Volume 92.1 80.0-100.0 fL Mean Corpuscular Hemoglobin 30.8 28.0-32.0 pg Mean Corpuscular Hemoglobin Concent 33.4 32.0-36.0 g/dL Red Cell Distribution Width 16.7 H 11.8-14.3 % Platelet Count 160 140-450 10^3/uL Mean Platelet Volume 8.0 6.9-10.8 fL Neutrophils (%) (Auto) 52.9 37.0-80.0 % Lymphocytes (%) (Auto) 30.4 10.0-50.0 % Monocytes (%) (Auto) 14.8 H 0.0-12.0 % Eosinophils (%) (Auto) 1.5 0.0-7.0 % Basophils (%) (Auto) 0.4 0.0-2.0 % Neutrophils # (Auto) 2.4 1.6-8.6 10 ^3/uL Lymphocytes # (Auto) 1.4 0.4-5.4 10 ^3/uL Monocytes # (Auto) 0.7 0-1.3 10 ^3/uL Eosinophils # (Auto) 0.1 0-0.8 10 ^3/uL Basophils # (Auto) 0 0-0.2 10 ^3/uL Nucleated Red Blood Cells 0.1 % Current Medications Medications (Trade) Dose Ordered Sig/Elaine Route Start Time Stop Time Status Last Admin Haloperidol Lactate (Haldol) 5 mg ONCE ONCE IM 02/26/25 00:00 02/26/25 00:01 DC 02/26/25 00:27 X-Ray, Labs, Meds, VS Comment Imaging: X-rays and CT scans were reviewed and interpreted by this provider, imaging shows no fractures and no pathological disease. Pending radiology review. Laboratory: Labs reviewed and interpreted by this provider. No significant abnormalities noted. Patient has prior medical visits reviewed. Med reconciliation performed Vital signs reviewed Time of 1ST Reevaluation: 00:20 Reevaluation 1ST: Unchanged Patient Education/Counseling: Diagnosis, Treatment, Other (Patient's altered) Family Education/Counseling: Diagnosis, No Family Present Departure 1 Departure Time of Disposition: 11:18 (Patient was medically and psychiatrically cleared we will discharge patient home.) Impression: Primary Impression: Hallucinations, unspecified Additional Impression: Altered mental status Qualified Codes: R41.0 - Disorientation, unspecified Disposition: [facility] Condition: Stable Critical Care Note Critical Care Time?: No Stability Stability form required: No Heart Score Heart Score: Heart Score Response (Comments) Value History N/A 0 EKG N/A 0 Age N/A 0 Risk Factors N/A 0 Troponin N/A 0 Total 0 I personally scribed for MADHAV CASTRO ([email or web address]) on 02/25/25 at 00:20. Electronically submitted by Devin Huerta ([email or web address]). MADHAV CASTRO Feb 25, 2025 00:20 AISHWARYA HEREDIA MD Feb 26, 2025 11:18
[2025-02-25 01:21] LABS: Basophils # (auto) 0 10 ^3/uL (0-0.2); Basophils % (auto) 0.4 % (0.0-2.0); Eosinophils # (auto) 0.1 10 ^3/uL (0-0.8); Eosinophils % (auto) 1.5 % (0.0-7.0); Hematocrit 41.4 % (36.0-46.0); Hemoglobin 13.8 g/dL (12.2-16.2); Lymphocytes # (auto) 1.4 10 ^3/uL (0.4-5.4); Lymphocytes % (auto) 30.4 % (10.0-50.0); Mean Corpuscular Hemoglobin 30.8 pg (28.0-32.0); Mean Corpuscular Hgb Conc. 33.4 g/dL (32.0-36.0); Mean Corpuscular Volume 92.1 fL (80.0-100.0); Monocytes # (auto) 0.7 10 ^3/uL (0-1.3); Monocytes % (auto) 14.8 % (0.0-12.0); Neutrophils # (auto) 2.4 10 ^3/uL (1.6-8.6); Neutrophils % (auto) 52.9 % (37.0-80.0); Nucleated Red Blood Cells % 0.1 %; Platelet Count (auto) 160 10^3/uL (140-450); Red Cell Distribution Width 16.7 % (11.8-14.3); White Blood Cell 4.6 10^3/uL (4.4-10.8)
[2025-02-25 08:54] VITALS: PULSE 99; RESP 19; O2SAT 87
[2025-02-25 17:05] LABS: Urine Bacteria None Seen /hpf (None Seen)
[2025-02-25 17:12] LABS: Urine Blood Negative /uL (Negative); Urine Clarity Clear (Clear); Urine Color Light-Yellow (Yellow); Urine Protein, UAD Negative (Negative); Urine Specific Gravity 1.005 (1.001-1.035); Urine Squamous Epithelial Cell FEW /hpf (<5); Urine Urobilinogen Normal (Negative); Urine WBC 7 /HPF (0-5)
[2025-02-25 17:26] LABS: Amphetamine Screen, Urine Neg (NEGATIVE); Barbiturate Scree,Urine Neg (NEGATIVE); Benzodiazephine Screen, Urine Neg (NEGATIVE); Cannabinoid Screen, Urine Neg (NEGATIVE); Cocaine Screen, Urine Neg (NEGATIVE); Opiate Scree,Urine Neg (NEGATIVE); Phencyclidine Screen, Urine Neg (NEGATIVE)
--- NOTE | 2025-02-25 19:05 | DVHINCON2 ---
Date of Service if different f: Feb 25, 2025 Consultation ([place]) Labs Laboratory Tests Test 02/25/25 01:02 02/25/25 17:03 White Blood Count 4.6 10^3/uL (4.4-10.8) Red Blood Count 4.50 10^6/uL (4.0-5.20) Hemoglobin 13.8 g/dL (12.2-16.2) Hematocrit 41.4 % (36.0-46.0) Mean Corpuscular Volume 92.1 fL (80.0-100.0) Mean Corpuscular Hemoglobin 30.8 pg (28.0-32.0) Mean Corpuscular Hemoglobin Concent 33.4 g/dL (32.0-36.0) Red Cell Distribution Width 16.7 % (11.8-14.3) Platelet Count 160 10^3/uL (140-450) Mean Platelet Volume 8.0 fL (6.9-10.8) Neutrophils (%) (Auto) 52.9 % (37.0-80.0) Lymphocytes (%) (Auto) 30.4 % (10.0-50.0) Monocytes (%) (Auto) 14.8 % (0.0-12.0) Eosinophils (%) (Auto) 1.5 % (0.0-7.0) Basophils (%) (Auto) 0.4 % (0.0-2.0) Neutrophils # (Auto) 2.4 10 ^3/uL (1.6-8.6) Lymphocytes # (Auto) 1.4 10 ^3/uL (0.4-5.4) Monocytes # (Auto) 0.7 10 ^3/uL (0-1.3) Eosinophils # (Auto) 0.1 10 ^3/uL (0-0.8) Basophils # (Auto) 0 10 ^3/uL (0-0.2) Nucleated Red Blood Cells 0.1 % Urine Color Light-yellow (Yellow) Urine Clarity Clear (Clear) Urine pH 7.0 (5.0-9.0) Urine Specific [place] 1.005 (1.001-1.035) Urine Protein Negative (Negative) Urine Ketones Negative (Negative) Urine Blood Negative /uL (Negative) Urine Nitrite Negative (Negative) Urine Bilirubin Negative (Negative) Urine Urobilinogen Normal mg/dL (Negative) Urine Leukocyte Esterase 1+ /uL (Negative) Urine RBC <1 /hpf (0 - 4) Urine Microscopic WBC 7 /HPF (0-5) Urine Squamous Epithelial Cells Few /hpf (<5) Urine Transitional Epithelial Cells Few /hpf (<2) Urine Bacteria None seen /hpf (None Seen) Urine Glucose Normal mg/dL (Normal) Urine Opiates Screen Neg (NEGATIVE) Urine Fentanyl Screen Neg (NEGATIVE) Urine Barbiturates Screen Neg (NEGATIVE) Urine Phencyclidine Screen Neg (NEGATIVE) Urine Amphetamines Screen Neg (NEGATIVE) Urine Benzodiazepines Screen Neg (NEGATIVE) Urine Cocaine Screen Neg (NEGATIVE) Urine Cannabinoids Screen Neg (NEGATIVE) Appetite: Fair Side effects of medications: TD Appearance: Older than stated age, Disheveled Psychomotor activity: Restless Behavioral: Cooperative Eye contact: Limited Speech: Confused, Mumbled Affect: Mood Congruent, Blunted Mood: Other Thought processes: Preservative, Disorganized Thought content: Paranoid, Delusions (persecution), Hallucinations (auditory) Suicidal ideations: Absent Homicidal ideations: Absent Orientation: Person, Place, Time Memory intact: Recent Intellect: Below average Abstractability: Marginal Concentration: Limited Attention: Limited Judgement: Limited Insight: Marginal Vitals Vital Signs Date Time Temp Pulse Resp B/P (MAP) Pulse Ox O2 Delivery O2 Flow Rate FiO2 02/25/25 08:54 99 19 87 Room Air* 0 21 02/25/25 08:54 98.4 126/75 (92) 98.4 Treatment plan discussed: With staff Medication adjusted: No Diagnosis: schizophrenia Plan : patient presently denies si/hi. pt with hx of schizophrenia and symptoms are chronic She aggress to return to [facility] facility, and facility willing to accept her back Recommend to discharge back to facility after medical clearance continue psychotropic medications and outpatient follow up History of Present Illness Reason for Consult : evaluation and disposition HPI : This is a 54-year-old female with history of schizophrenia and multiple prior admissions here, [facility] and outbursts. On evaluation via telepsychiatry, patient reports being upset because they changed her medication. She reports other clients were receiving a different color medication and hers was not the same color. She reports new medication, she cannot recall name, caused her to have diarrhea. She reports wanting a different medication but cannot provide the name. She denies suicidal or homicidal ideation. She does report voices saying they want to harm her. Voices are chronic. She also has paranoia that people want to harm her and this also chronic. Per report, patient refused medications today but agrees to restart her medications at facility. Patient now asking to talk to staff at her facility and return. Patient is a limited historian and speech difficult to understand. Past Psychiatric History : She has hx of schizophrenia, multiple prior psych ad missions. Other history is unknown Past Medical History : per chart review Social History : She is at [facility] care facility. other history is unknown. She denies any substance use history. ROGELIO HARRELL DNP Feb 25, 2025 19:04
[2025-02-25 20:20] VITALS: RESP 16
[2025-02-25] MEDS: HALOPERIDOL LACTATE 5 MG/ML INJ VIAL ONE (23:59)
[2025-02-26] MEDS: HALOPERIDOL LACTATE 5 MG/ML INJ VIAL IM ONE (00:27)
[2025-02-26 08:00] VITALS: PULSE 78; RESP 20; TEMP 98.2; O2SAT 94
[2025-02-26 12:59] VITALS: BP 122/72; PULSE 65; RESP 18; O2SAT 94
== END 2025-02-26 13:00 | disposition home or self-care (01) ==
LOC: EDBD 23:22 → ER 23:26
DX: R44.3 Hallucinations, unspecified (principal); R41.82 Altered mental status, unspecified; J44.9 Chronic obstructive pulmonary disease, unspecified; Z87.440 Personal history of urinary (tract) infections; Z87.891 Personal history of nicotine dependence; Z79.1 Long term (current) use of non-steroidal anti-inflammatories (NSAID); Z79.899 Other long term (current) drug therapy; Z91.011 Allergy to milk products
CPT/HCPCS: 36415; 80307; 81001; 85025; 96372; 99285; J1630

== ENCOUNTER 2025-03-20 13:40 | Emergency (ER) | payer OTHER ==
[~2025-03-20] VITALS: Ht 157.5 cm; Wt 59.0 kg
--- NOTE | 2025-03-20 14:08 | ED.PDOC ---
History of Present Illness HPI Comments 55-year-old female with PMHx Schizophrenia brought in by EMS presents with a chief complaint of left hip pain. Patient is well known to this ER and is a poor historian. Patient complained to EMS of sudden onset of left hip pain, but is unable to state how it happened, when it began, or what were the circumstances behind it. Chief Complaint: Lower Extremity Time Seen by MD: 13:49 Primary Care Provider: UNKNOWN Reviewed Notes: Medications, Allergies Allergies: Coded Allergies: Lactose (Verified Allergy, Severe, 11/15/24) Home Meds Active Scripts Ibuprofen (Ibuprofen) 800 Mg Tab, 1 TAB PO TID, #20 TAB Prov:RAMIRO HANKS PA 12/10/24 Acetaminophen (Acetaminophen) 500 Mg Tab, 500 MG PO Q4HPRN, #30 TAB 0 Refills Prov:KENTON PARTIDA 11/24/24 Baclofen (Baclofen) 20 Mg Tab, 1 TAB PO TID, #90 TAB 3 Refills Prov:MADHAV CASTRO GUN SYNCHRONIZER 11/03/24 Acetaminophen (Acetaminophen) 500 Mg Tab, 500 MG PO Q4HP PRN, #20 TAB Prov:MAMI ESTRADA PAC 10/31/24 Ibuprofen (Ibuprofen) 600 Mg Tab, 1 TAB PO Q6HP PRN, #20 TAB Prov:MAMI ESTRADA PAC 10/31/24 Nitrofurantoin Monohydrate Mac (Macrobid) 100 Mg Cap, 100 MG PO BID for 7 Days, #14 CAP Prov:ANGELITO REYES MD 10/27/24 Nitrofurantoin (Nitrofurantoin) 100 Mg Cap, 100 MG PO BID for 10 Days, #20 CAP Prov:GURU BROWN MD 10/20/24 Fosfomycin Tromethamine (Fosfomycin Tromethamine) 3 Gm Pow, 3 GM PO ONCE for 1 Day, #1 POW Prov:GURU BROWN MD 10/20/24 Levofloxacin Hemihydrate (LEVOFLOXACIN) 750 Mg Tab, 750 MG PO DAILY for 10 Days, #10 TAB Prov:TONY THAKKAR RESIDENT 10/20/24 Olanzapine (OLANZAPINE) 5 Mg Tab, 10 MG PO [id number] PRN for 30 Days, #120 TAB Prov:TONY THAKKAR RESIDENT 09/29/24 Desmopressin Acetate (Ddavp Nasal) 1 Spr Sp, 1 SPR TONY DAILY for 30 Days, #1 UNIT Prov:TONY THAKKAR RESIDENT 09/29/24 Acetaminophen (Acetaminophen) 160 Mg/5 Ml [place], 325 MG PO Q6HR PRN for 10 Days, #30 UNIT Prov:TONY THAKKAR RESIDENT 09/29/24 Ondansetron Odt 4MG Tab (ZOFRAN PO) 4 Mg Tb, 4 MG PO TIDPRN PRN for 7 Days, #21 TAB ODT TAB-DISSOLVE IN MOUTH, THEN SWALLOW Prov:CHRISTAL ABRAHAM MD 07/08/24 Reported Medications Divalproex Sodium (Divalproex Sodium) 500 Mg Tab, 500 MG PO BID for 30 Days, MG 10/19/24 Midodrine HCl (Midodrine HCl) 10 Mg Tab, 10 MG, TAB 10/19/24 Pantoprazole Sodium Sesquihydr (Protonix) 40 Mg Tab, 40 MG PO DAILY, #30 TAB 10/19/24 Cyclobenzaprine Hcl (Cyclobenzaprine Hcl) 10 Mg Tab, 10 MG PO for 30 Days, MG 10/19/24 Albuterol Sulfate (Albuterol Sulfate (5 mg/ml) 0.5%) 1 Neb Neb, 1 NEB IN, INH 10/19/24 Haloperidol (Haldol) 5 Mg Tb, 3 MG PO BID, MG 03/15/24 Benztropine Mesylate (Benztropine Mesylate) 1 Mg Tab, 1 MG PO BID, MG 03/15/24 Trazodone Hcl (Trazodone Hcl) 50 Mg Tab, 75 MG PO HS, MG 03/15/24 Lorazepam (ATIVAN TABLET) 0.5 Mg Tb, 0.5 MG PO Q4HPRN PRN for ANXIETY, TAB 03/15/24 Information Source: Patient, Emergency Med Personnel Mode of Arrival: EMS Severity: Moderate Timing: Came on: Suddenly Duration: Since onset 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 Past Medical History PAST MEDICAL HISTORY: COPD, Gallstones, Schizophrenia, UTI'S Surgical History: Denies all surgeries LADLE LINER History: Denies all LADLE LINER Hx Family History Family History: Reviewed,noncontributory to illness Social History Smoker: Quit Less Than 1 Year, Cigarettes Alcohol: Denies ETOH Use Drugs: Denies Drug Use Lives In: Assisted Care Constitutional: denies: chills, diaphoresis, fatigue, fever, malaise, sweats, weakness, others EENTM: denies: blurred vision, double vision, ear bleeding, ear discharge, ear drainage, ear pain, ear ringing, eye pain, eye redness, hearing loss, mouth pain, mouth swelling, nasal discharge, nose bleeding, nose congestion, nose pain, photophobia, tearing, throat pain, throat swelling, voice changes, others Respiratory: denies: cough, hemoptysis, orthopnea, SOB at rest, shortness of breath, SOB with excertion, stridor, wheezing, others Cardiovascular: denies: chest pain, dizzy spells, diaphoresis, Dyspnea on exertion, edema, irregular heart beat, left arm pain, lightheadedness, palpitations, PND, syncope, others Gastrointestinal: denies: abdomen distended, abdominal pain, blood streaked bowels, constipated, diarrhea, dysphagia, difficulty swallowing, hematemesis, melena, nausea, poor appetite, poor fluid intake, rectal bleeding, rectal pain, vomiting, others Genitourinary: denies: abnormal vagina bleeding, burning, dyspareunia, dysuria, flank pain, frequency, hematuria, incontinence, pain, , vagina discharge, urgency, others Neurological: denies: dizziness, fainting, headache, left sided numbness, left sided weakness, numbness, paresthesia, pre-existing deficit, right sided numbnes s, right sided weakness, seizure, speech problems, tingling, tremors, weakness, others Musculoskeletal: reports: muscle pain; denies: back pain, gout, joint pain, joint swelling, muscle stiffness, neck pain, others Integumetry: denies: bruises, change in color, change in hair/nails, dryness, laceration, lesions, lumps, rash, wounds, others Allergic/Immunocompromised: denies: Difficulty Healing, Frequent Infections, Hives, Itching, others Hematologic/Lymphatic: denies: anemia, blood clots, easy bleeding, easy bruising, swollen glands, others Endocrine: denies: excessive hunger, excessive sweating, excessive thirst, excessive urination, flushing, intolerance to cold, intolerance to heat, unexplained weight gain, unexplained weight loss, others Psychiatric: denies: anxiety, bipolar disorder, depression, hopeless, panic disorder, schizophrenia, sleepless, suicidal, others All Other Systems: Reviewed and Negative Physical Exam General Appearance: Moderate Distress, Normal HEENT: Normal ENT Inspection, Pharynx Normal, TMs Normal Neck: Full Range of Motion, Non-Tender, Normal, Normal Inspection Respiratory: Chest Non-Tender, Lungs Clear, No Accessory Muscle Use, No Respiratory Distress, Normal Breath Sounds Cardiovascular: No Edema, No JVD, No Murmur, No Gallop, Normal Peripheral Pulses, Regular Rate/Rhythm Breast Exam: Deferred Gastrointestinal: No Organomegaly, Non Tender, No Pulsatile Mass, Normal Bowel Sounds, Soft Genitalia: Deferred Pelvic: Deferred Rectal: Deferred Extremities: No calf tenderness, Normal capillary refill, Normal inspection, Normal range of motion, Non-tender, No pedal edema Musculoskeletal : Apperance: Normal Neurologic: Alert, parent partner II-XII nml as Tested, No Motor Deficits, Normal Affect, Normal Mood, No Sensory Deficits Cerebellar Function: Normal Reflexes: Normal Skin: Dry, Normal Color, Warm Peripheral Pulses: 3+ Radial (R), 3+ Radial (L) Lymphatic: No Adenopathy Was a procedure done? Was a procedure done?: No Differential Dx Considerations may include: Musculoskeletal pain X-Ray, Labs, Meds, VS Vital Signs Date Time Temp Pulse Resp B/P (MAP) Pulse Ox O2 Delivery O2 Flow Rate FiO2 03/20/25 13:45 98.4 86 16 100/84 (89) 96 98.4 Patient alert. Came in because of hip pain. No fall. Vitals stable. No trauma. X-ray Reviewed does not show any acute changes. Moving all extremities. Was given Toradol. Explained to the patient. Was told to follow up with the primary care patient. Was told to come back if there is any problem. Time of 1ST Reevaluation: 14:19 Reevaluation 1ST: Improved Patient Education/Counseling: Diagnosis, Treatment, Need For Follow Up Family Education/Counseling: No Family Present SEPSIS Sepsis Screen Date sepsis recognized/suspect: Mar 20, 2025 Time Sepsis recognized/suspect: 1342 Recent Procedure: No On Antibiotic Therapy: No Respiratory Rate >20: No Heart Rate >90: No Temp<36 C (96.8 F) or >38.3 C: No SBP <90 or MAP <65 mmHG: No New Acute Mental Status Change: No Is the patient on CPAP, BIPAP,: No Physician Orders Pelvis Ap (03/20/25 14:02) Vital Signs Date Time Temp Pulse Resp B/P (MAP) Pulse Ox O2 Delivery O2 Flow Rate FiO2 03/20/25 13:45 98.4 86 16 100/84 (89) 96 98.4 Departure 1 Departure Time of Disposition: 14:34 Impression: Primary Impression: DDD (degenerative disc disease), lumbosacral Qualified Codes: M51.379 - Other intervertebral disc degeneration, lumbosacral region without mention of lumbar back pain or lower extremity pain Disposition: 01 HOME / SELF CARE / HOMELESS Condition: Good Discharged With: Self Critical Care Note Critical Care Time?: No Stability Stability form required: No Heart Score Heart Score: Heart Score Response (Comments) Value History N/A 0 EKG N/A 0 Age N/A 0 Risk Factors N/A 0 Troponin N/A 0 Total 0 I personally scribed for CRISELDA PATRICK MD ([email or web address]) on 03/20/25 at 14:08. Electronically submitted by Thor Harrell ([email or web address]). CRISELDA PATRICK MD Mar 20, 2025 14:08
[2025-03-20] MEDS: KETOROLAC TROMETH 60MG/2ML VIAL IM ONE (14:15)
--- NOTE | 2025-03-20 14:57 | DVH ---
CLINICAL INDICATION: pain TECHNIQUE: XY PELVIS AP Comparison: None FINDINGS/IMPRESSION: : There is no evidence of acute fracture or dislocation. Soft tissues are unremarkable.
[2025-03-20 15:28] VITALS: BP 120/77; PULSE 88; RESP 17; TEMP 98.3; O2SAT 94
== END 2025-03-20 15:45 | disposition home or self-care (01) ==
LOC: EDBD 13:40 → ER 13:40
DX: M51.379 Other intervertebral disc degeneration, lumbosacral region without mention of lumbar back pain or lower extremity pain (principal); J44.9 Chronic obstructive pulmonary disease, unspecified; F20.9 Schizophrenia, unspecified; Z87.440 Personal history of urinary (tract) infections; Z87.891 Personal history of nicotine dependence; Z79.899 Other long term (current) drug therapy; Z79.1 Long term (current) use of non-steroidal anti-inflammatories (NSAID); Z91.018 Allergy to other foods
CPT/HCPCS: 72170; 96372; 99283; J1885

== ENCOUNTER 2025-05-11 10:19 | Inpatient (IN) | payer OTHER ==
[~2025-05-11] VITALS: Ht 167.6 cm; Wt 54.4 kg
[2025-05-11] MEDS: ALBUTEROL SULF 2.5 MG/0.5ML(0.5%) NEB SOLN NEB ONE (10:38)
[2025-05-11] MEDS: IPRATROPIUM BROM 0.5 MG/2.5ML INH SOL NEB ONE (10:38)
--- NOTE | 2025-05-11 10:43 | ED.PDOC ---
History of Present Illness HPI Comments 55-year-old female brought by paramedics because of shortness a breath which started this morning. She was brought from [facility]. She continues to smoke cigarettes. She was smoking without oxygen. She is noncompliant with her oxygen. She does have history of COPD hypertension seizures bipolar disorder. Unable to get good history from the patient. Chief Complaint: Shortness of Breath Time Seen by MD: 10:26 Primary Care Provider: UNKNOWN Reviewed Notes: Nurses Notes, Medications, Allergies Allergies: Coded Allergies: Lactose (Verified Allergy, Severe, 11/15/24) Azithromycin (Verified Allergy, Unknown, 05/11/25) Home Meds Active Scripts Ibuprofen (Ibuprofen) 800 Mg Tab, 1 TAB PO TID, #20 TAB Prov:RAMIRO HANKS PA 12/10/24 Acetaminophen (Acetaminophen) 500 Mg Tab, 500 MG PO Q4HPRN, #30 TAB 0 Refills Prov:KENTON PARTIDA 11/24/24 Baclofen (Baclofen) 20 Mg Tab, 1 TAB PO TID, #90 TAB 3 Refills Prov:MADHAV CASTROP 11/03/24 Acetaminophen (Acetaminophen) 500 Mg Tab, 500 MG PO Q4HP PRN, #20 TAB Prov:MAMI ESTRADA PAC 10/31/24 Ibuprofen (Ibuprofen) 600 Mg Tab, 1 TAB PO Q6HP PRN, #20 TAB Prov:MAMI ESTRADA PAC 10/31/24 Nitrofurantoin Monohydrate Mac (Macrobid) 100 Mg Cap, 100 MG PO BID for 7 Days, #14 CAP Prov:ANGELITO REYES MD 10/27/24 Nitrofurantoin (Nitrofurantoin) 100 Mg Cap, 100 MG PO BID for 10 Days, #20 CAP Prov:GURU BROWN MD 10/20/24 Fosfomycin Tromethamine (Fosfomycin Tromethamine) 3 Gm Pow, 3 GM PO ONCE for 1 Day, #1 POW Prov:GURU BROWN MD 10/20/24 Levofloxacin Hemihydrate (LEVOFLOXACIN) 750 Mg Tab, 750 MG PO DAILY for 10 Days, #10 TAB Prov:TONY THAKKAR RESIDENT 10/20/24 Olanzapine (OLANZAPINE) 5 Mg Tab, 10 MG PO [id number] PRN for 30 Days, #120 TAB Prov:TONY THAKKAR RESIDENT 09/29/24 Desmopressin Acetate (Ddavp Nasal) 1 Spr Sp, 1 SPR TONY DAILY for 30 Days, #1 UNIT Prov:TONY THAKKAR RESIDENT 09/29/24 Acetaminophen (Acetaminophen) 160 Mg/5 Ml Polina, 325 MG PO Q6HR PRN for 10 Days, #30 UNIT Prov:TONY THAKKAR RESIDENT 09/29/24 Ondansetron Odt 4MG Tab (ZOFRAN PO) 4 Mg Tb, 4 MG PO TIDPRN PRN for 7 Days, #21 TAB ODT TAB-DISSOLVE IN MOUTH, THEN SWALLOW Prov:CHRISTAL ABRAHAM MD 07/08/24 Reported Medications Divalproex Sodium (Divalproex Sodium) 500 Mg Tab, 500 MG PO BID for 30 Days, MG 10/19/24 Midodrine HCl (Midodrine HCl) 10 Mg Tab, 10 MG, TAB 10/19/24 Pantoprazole Sodium Sesquihydr (Protonix) 40 Mg Tab, 40 MG PO DAILY, #30 TAB 10/19/24 Cyclobenzaprine Hcl (Cyclobenzaprine Hcl) 10 Mg Tab, 10 MG PO for 30 Days, MG 10/19/24 Albuterol Sulfate (Albuterol Sulfate (5 mg/ml) 0.5%) 1 Neb Neb, 1 NEB IN, INH 10/19/24 Haloperidol (Haldol) 5 Mg Tb, 3 MG PO BID, MG 03/15/24 Benztropine Mesylate (Benztropine Mesylate) 1 Mg Tab, 1 MG PO BID, MG 03/15/24 Trazodone Hcl (Trazodone Hcl) 50 Mg Tab, 75 MG PO HS, MG 03/15/24 Lorazepam (ATIVAN TABLET) 0.5 Mg Tb, 0.5 MG PO Q4HPRN PRN for ANXIETY, TAB 03/15/24 Information Source: Emergency Med Personnel Mode of Arrival: EMS Severity: Moderate Timing: Hours Duration: Since onset Past Medical History PAST MEDICAL HISTORY: COPD, Gallstones, Schizophrenia, UTI'S Surgical History: Denies all surgeries PARAPROFESSIONAL EDUCATION ASSISTANT History: Denies all PARAPROFESSIONAL EDUCATION ASSISTANT Hx Family History Family History: Reviewed,noncontributory to illness Social History Smoker: Quit Less Than 1 Year, Cigarettes Alcohol: Denies ETOH Use Drugs: Denies Drug Use Lives In: Assisted Care Constitutional: denies: chills, diaphoresis, fatigue, fever, malaise, sweats, weakness, others EENTM: denies: blurred vision, double vision, ear bleeding, ear discharge, ear drainage, ear pain, ear ringing, eye pain, eye redness, hearing loss, mouth pain, mouth swelling, nasal discharge, nose bleeding, nose congestion, nose pain, photophobia, tearing, throat pain, throat swelling, voice changes, others Respiratory: reports: shortness of breath; denies: cough, hemoptysis, orthopnea, SOB at rest, SOB with excertion, stridor, wheezing, others Cardiovascular: denies: chest pain, dizzy spells, diaphoresis, Dyspnea on exertion, edema, irregular heart beat, left arm pain, lightheadedness, palpitations, PND, syncope, others Gastrointestinal: denies: abdomen distended, abdominal pain, blood streaked bowels, constipated, diarrhea, dysphagia, difficulty swallowing, hematemesis, melena, nausea, poor appetite, poor fluid intake, rectal bleeding, rectal pain, vomiting, others Genitourinary: denies: abnormal vagina bleeding, burning, dyspareunia, dysuria, flank pain, frequency, hematuria, incontinence, pain, , vagina discharge, urgency, others Neurological: denies: dizziness, fainting, headache, left sided numbness, left sided weakness, numbness, paresthesia, pre-existing deficit, right sided numbness, right sided weakness, seizure, speech problems, tingling, tremors, weakness, others Musculoskeletal: denies: back pain, gout, joint pain, joint swelling, muscle pain, muscle stiffness, neck pain, others Integumetry: denies: bruises, change in color, change in hair/nails, dryness, laceration, lesions, lumps, rash, wounds, others Allergic/Immunocompromised: denies: Difficulty Healing, Frequent Infections, Hives, Itching, others Hematologic/Lymphatic: denies: anemia, blood clots, easy bleeding, easy bruising, swollen glands, others Endocrine: denies: excessive hunger, excessive sweating, excessive thirst, excessive urination, flushing, intolerance to cold, intolerance to heat, unexplained weight gain, unexplained weight loss, others Psychiatric: denies: anxiety, bipolar disorder, depression, hopeless, panic disorder, schizophrenia, sleepless, suicidal, others Physical Exam General Appearance: Moderate Distress HEENT: Normal ENT Inspection, Pharynx Normal, TMs Normal Neck: Full Range of Motion, Non-Tender, Normal, Normal Inspection Respiratory: Other (Coarse breath sounds) Cardiovascular: No Edema, No JVD, No Murmur, No Gallop, Normal Peripheral Pulses, Regular Rate/Rhythm Breast Exam: Deferred Gastrointestinal: No Organomegaly, Non Tender, No Pulsatile Mass, Normal Bowel Sounds, Soft Genitalia: Deferred Pelvic: Deferred Rectal: Deferred Extremities: No calf tenderness, No pedal edema Musculoskeletal : Apperance: Normal Neurologic: Alert, No Motor Deficits, No Sensory Deficits Cerebellar Function: NOT DONE Reflexes: NOT DONE Skin: Normal Color Peripheral Pulses: 3+ Radial (R), 3+ Radial (L) Lymphatic: No Adenopathy Was a procedure done? Was a procedure done?: No EKG EKG : Pulse Rate (adult): 93 Cardiac Rhythm: NSR Differential Dx Considerations may include: Pneumonitis Electrolyte imbalance X-Ray, Labs, Meds, VS Vital Signs Date Time Temp Pulse Resp B/P (MAP) Pulse Ox O2 Delivery O2 Flow Rate FiO2 05/11/25 12:28 97.4 91 18 127/62 99 4.0 36 97.4 05/11/25 11:00 97.4 89 22 127/62 (83) 100 97.4 05/11/25 11:00 Nasal Cannula* 3 32 05/11/25 10:43 93 05/11/25 10:38 16 99 Nasal Cannula* 4 36 05/11/25 10:38 99 Nasal Cannula* 4 36 05/11/25 10:28 92 05/11/25 10:26 97.8 90 20 128/85 99 97.8 Lab Test 05/11/25 11:00 Range/Units White Blood Count 3.4 L 4.4-10.8 10^3/uL Red Blood Count 4.56 4.0-5.20 10^6/uL Hemoglobin 14.7 12.2-16.2 g/dL Hematocrit 43.1 36.0-46.0 % Mean Corpuscular Volume 94.5 80.0-100.0 fL Mean Corpuscular Hemoglobin 32.3 H 28.0-32.0 pg Mean Corpuscular Hemoglobin Concent 34.2 32.0-36.0 g/dL Red Cell Distribution Width 14.6 H 11.8-14.3 % Platelet Count 151 140-450 10^3/uL Mean Platelet Volume 8.1 6.9-10.8 fL Neutrophils (%) (Auto) 70.6 37.0-80.0 % Lymphocytes (%) (Auto) 19.0 10.0-50.0 % Monocytes (%) (Auto) 9.6 0.0-12.0 % Eosinophils (%) (Auto) 0.5 0.0-7.0 % Basophils (%) (Auto) 0.3 0.0-2.0 % Neutrophils # (Auto) 2.4 1.6-8.6 10 ^3/uL Lymphocytes # (Auto) 0.6 0.4-5.4 10 ^3/uL Monocytes # (Auto) 0.3 0-1.3 10 ^3/uL Eosinophils # (Auto) 0 0-0.8 10 ^3/uL Basophils # (Auto) 0 0-0.2 10 ^3/uL Nucleated Red Blood Cells 0.2 % Sodium Level 128 L 136-145 mmol/L Potassium Level 4.1 3.5-5.1 mmol/L Chloride Level 93 L 98-107 mmol/L Carbon Dioxide Level 29 20-31 mmol/L Anion Gap 6 5-15 Blood Urea Nitrogen < 5 L 9-23 mg/dL Creatinine 0.45 L 0.550-1.02 mg/dL Glomerular Filtration Rate Calc 113 >90 mL/min BUN/Creatinine Ratio 11.1 10.0-20.0 Serum Glucose 78 74-106 mg/dL Calcium Level 8.8 8.7-10.4 mg/dL Current Medications Medications (Trade) Dose Ordered Sig/Elaine Route Start Time Stop Time Status Last Admin Albuterol (Ventolin Medneb) 5 mg ONCE ONCE NEB 05/11/25 10:30 05/11/25 10:31 DC 05/11/25 10:38 Ipratropium Orland (Atrovent Medneb) 0.5 mg ONCE ONCE NEB 05/11/25 10:30 05/11/25 10:31 DC 05/11/25 10:38 Methylprednisolone Sodium Succinate (Solu Medrol) 125 mg ONCE ONCE IV 05/11/25 10:30 05/11/25 10:31 DC 05/11/25 11:19 Levofloxacin/ Dextrose 100 ml @ 100 mls/hr ONCE ONCE IV 05/11/25 10:45 05/11/25 11:44 DC 05/11/25 11:19 Patient alert. Complaining of shortness a breath. Unable to get a good history from the patient. Placed on oxygen. Was given steroid. Was given breathing treatment. Reviewed her previous visit. Possible pneumonitis. Was given Levaquin. Explained to the patient. Continue monitoring. [place] [id number] Ph: [phone] DIAGNOSTIC IMAGING Diagnostic Imaging Report : [id number] Signed PATIENT: NATIVIDAD URBAN MACCT: [id number] UNIT: [id number] : 1970 LOC: ER ROOM / BED: / AGE / SEX: 55 / F ADM STATUS: REG ER SERVICE 1026 ORDERING PHYSICIAN: CRISELDA PATRICK MD PROCEDURE(s): CXRP - CHEST PORTABLE REASON: sob ORDER NUMBER(s): [id number], ACCESSION NUMBER(s): [id number] EXAM: XY CHEST PORTABLE Indication: sob Technique: Single frontal view of the chest was obtained Comparison: XY CHEST PORTABLE on DOS: 10/19/24, XY CHEST PORTABLE on DOS: 10/18/24, XY CHEST XRAY 1 VIEW on DOS: 09/29/24, XY CHEST XRAY 1 VIEW on DOS: 09/22/24, XY CHEST PORTABLE on DOS: 09/21/24 FINDINGS: Lines and Tubes: None Lungs: Interstitial opacities are visualized, right greater than left. Pleura: No effusion. No pneumothorax. Cardiomediastinal contours: Unremarkable Bones: No acute osseous abnormality. IMPRESSION: Interstitial opacities are visualized, right greater than left. Findings may reflect atypical infection. ATED BY: PABLITO KAUFMAN MD DICTATED DATE/TIME: 05/11/251107 SIGNED BY: PABLITO KAUFMAN MD SIGNED DATE/TIME: 05/11/251107 CC: Time of 1ST Reevaluation: 10:41 Reevaluation 1ST: Unchanged Patient Education/Counseling: Diagnosis, Treatment, Prognosis, Need For Follow Up Family Education/Counseling: No Family Present SEPSIS Sepsis Screen Date sepsis recognized/suspect: May 11, 2025 Time Sepsis recognized/suspect: 1026 Recent Procedure: No On Antibiotic Therapy: No Respiratory Rate >20: No Heart Rate >90: No Temp<36 C (96.8 F) or >38.3 C: No SBP <90 or MAP <65 mmHG: No New Acute Mental Status Change: No Is the patient on CPAP, BIPAP,: No Physician Orders Chest Portable (05/11/25 10:26) Urinalysis (05/11/25 10:26) Admit (05/11/25 12:09) Code Status (05/11/25 12:09) 2 Gm Sodium Diet (05/11/25 Lunch) Oxygen Per Hour (05/11/25 12:09) Hydrocodone-Acet 5/325mg Tab (Powderly 5/32 (05/11/25 12:15) Temazepam (Restoril) (05/11/25 12:15) Ondansetron Hcl (Zofran) (05/11/25 12:15) Enoxaparin Sodium (Lovenox) (05/12/25 10:00) Complete Blood Count (05/12/25 04:00) Comprehensive Metabolic Panel (05/12/25 04:00) Condition: Fair (05/11/25 12:09) Acetaminophen Tablet (Tylenol Tablet) (05/11/25 12:15) Morphine Sulfate Injection (05/11/25 12:15) Sequential Compression Device (05/11/25 ) Nitroglycerin Sublingual (Ntrostat Subli (05/11/25 12:15) Morphine Sulfate Injection (05/11/25 12:15) Stat Ekg For Chest Pain (05/11/25 12:09) Notify Md Of Changes From Base (05/11/25 12:09) Director Operations Broadcast For 24 Hours (05/11/25 12:09) Emergency Dysrhythmia Protocol (05/11/25 12:09) Rhythm Strips Once Every Shift (05/11/25 12:09) Oxygen By Nasal Cannula (05/11/25 12:09) Doxycycline 100mg/100ml (Vibramycin) (05/11/25 12:15) Budesonide (Inhalation) (Pulmicort) (05/11/25 12:15) Ipratropium Medneb (Atrovent Medneb) (05/11/25 12:15) E-Z Pap Therapy With Hhn As Or (05/11/25 12:09) Famotidine Injection (Pepcid Injection) (05/11/25 12:15) *Consult / (05/11/25 12:14) Vital Signs Date Time Temp Pulse Resp B/P (MAP) Pulse Ox O2 Delivery O2 Flow Rate FiO2 05/11/25 12:28 97.4 91 18 127/62 99 4.0 36 97.4 05/11/25 11:00 97.4 89 22 127/62 (83) 100 97.4 05/11/25 11:00 Nasal Cannula* 3 32 05/11/25 10:43 93 05/11/25 10:38 16 99 Nasal Cannula* 4 36 05/11/25 10:38 99 Nasal Cannula* 4 36 05/11/25 10:28 92 05/11/25 10:26 97.8 90 20 128/85 99 97.8 Laboratory Tests Test 05/11/25 11:00 White Blood Count 3.4 10^3/uL (4.4-10.8) L Medications Medications Dose Ordered Sig/Elaine Route Start Time Stop Time Status Last Admin Dose Admin Albuterol 5 mg ONCE ONCE NEB 05/11/25 10:30 05/11/25 10:31 DC 05/11/25 10:38 Ipratropium Orland 0.5 mg ONCE ONCE NEB 05/11/25 10:30 05/11/25 10:31 DC 05/11/25 10:38 Levofloxacin/ Dextrose 100 ml @ 100 mls/hr ONCE ONCE IV 05/11/25 10:45 05/11/25 11:44 DC 05/11/25 11:19 Methylprednisolone Sodium Succinate 125 mg ONCE ONCE IV 05/11/25 10:30 05/11/25 10:31 DC 05/11/25 11:19 Departure 1 Departure Time of Disposition: 10:42 Impression: Primary Impression: Pneumonitis Disposition: ADMITTED INPATIENT Admit to: Med Surg Condition: Guarded Critical Care Note Critical Care Time?: Yes (90 min-critical care time only) Critical care comment: Placed on oxygen Stability Stability form required: No Heart Score Heart Score: Heart Score Response (Comments) Value History Slightly Suspicious 0 EKG Normal 0 Age 45-64 1 Risk Factors >3 or Hx ASHD 2 Troponin Normal limit 0 Total 3 I personally scribed for CRISELDA PATRIKC MD ([email or web address]) on 05/11/25 at 12:35. Electronically submitted by Muna Verdugo ([email or web address]). CRISELDA PATRICK MD May 11, 2025 10:43
--- NOTE | 2025-05-11 10:48 | ECG ---
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
--- NOTE | 2025-05-11 11:10 | DVH ---
EXAM: XY CHEST PORTABLE Indication: sob Technique: Single frontal view of the chest was obtained Comparison: XY CHEST PORTABLE on DOS: 10/19/24, XY CHEST PORTABLE on DOS: 10/18/24, XY CHEST XRAY 1 VIEW on DOS: 09/29/24, XY CHEST XRAY 1 VIEW on DOS: 09/22/24, XY CHEST PORTABLE on DOS: 09/21/24 FINDINGS: Lines and Tubes: None Lungs: Interstitial opacities are visualized, right greater than left. Pleura: No effusion. No pneumothorax. Cardiomediastinal contours: Unremarkable Bones: No acute osseous abnormality. IMPRESSION: Interstitial opacities are visualized, right greater than left. Findings may reflect atypical infecti on.
[2025-05-11 11:16] LABS: Hematocrit 43.1 % (36.0-46.0); Hemoglobin 14.7 g/dL (12.2-16.2); Mean Corpuscular Hemoglobin 32.3 pg (28.0-32.0); Mean Corpuscular Volume 94.5 fL (80.0-100.0); Nucleated Red Blood Cells % 0.2 %
[2025-05-11 11:17] LABS: Potassium 4.1 mmol/L (3.5-5.1)
[2025-05-11 11:18] LABS: Anion Gap 6 (5-15); Calcium 8.8 mg/dL (8.7-10.4); Carbon Dioxide 29 mmol/L (20-31)
[2025-05-11] MEDS: methylPREDNISolone SOD SUCC 125 MG/2 ML VL IV ONE (11:19)
[2025-05-11 11:22] LABS: Chloride 93 mmol/L (98-107); Sodium 128 mmol/L (136-145)
[2025-05-11 11:23] LABS: Glucose 78 mg/dL (74-106)
[2025-05-11 11:29] LABS: Blood Urea Nitrogen < 5 mg/dL (9-23)
[2025-05-11 11:30] LABS: BUN/Creatinine Ratio 11.1 (10.0-20.0)
[2025-05-11] MEDS ORDERED: HYDROcodone-ACET 5/325MG TAB PO PRN (12:15)
[2025-05-11] MEDS ORDERED: IPRATROPIUM BROM 0.5 MG/2.5ML INH SOL NEB PRN (12:15)
[2025-05-11] MEDS ORDERED: NITROGLYCERIN 0.4 MG SL TAB SL PRN (12:15)
[2025-05-11] MEDS ORDERED: BUDESONIDE (INHALATION) 0.5 MG/2 ML NEB NEB SCH (12:15)
[2025-05-11] MEDS ORDERED: MORPHINE SULFATE INJ 2 MG/ml SYRG IV PRN ×2 (12:15)
[2025-05-11] MEDS ORDERED: TEMAZEPAM 15 MG CAP PO PRN (12:15)
[2025-05-11] MEDS ORDERED: ONDANSETRON HCL 4 MG/2 ML VIAL IV PRN (12:15)
--- NOTE | 2025-05-11 12:15 | DVHHP2 ---
Admitting Diagnosis: SOB History of Present Illness 55-year-old female brought by paramedics because of shortness a breath which started this morning. She was brought from [facility]. She continues to smoke cigarettes. She was smoking without oxygen. She is noncompliant with her oxygen. She does have history of COPD hypertension seizures bipolar disorder. Unable to get good history from the patient. While in the emergency department the patient was evaluated by the provider, As per provider: Labs, vital signs, and imagining monitored. Patient will be admitted for further evaluation and treatment. I discussed admission with the patient/family and is in agreement to treatment plan. Patient Family History: Anxiety disorder FH: COPD (chronic obstructive pulmonary disease) FH: schizophrenia Allergies: Coded Allergies: Lactose (Verified Allergy, Severe, 11/15/24) Azithromycin (Verified Allergy, Unknown, 05/11/25) Home Meds Active Scripts Ibuprofen (Ibuprofen) 800 Mg Tab, 1 TAB PO TID, #20 TAB Prov:RAMIRO HANKS PA 12/10/24 Acetaminophen (Acetaminophen) 500 Mg Tab, 500 MG PO Q4HPRN, #30 TAB 0 Refills Prov:KENTON PARTIDA 11/24/24 Baclofen (Baclofen) 20 Mg Tab, 1 TAB PO TID, #90 TAB 3 Refills Prov:MADHAV CASTROP 11/03/24 Acetaminophen (Acetaminophen) 500 Mg Tab, 500 MG PO Q4HP PRN, #20 TAB Prov:MAMI ESTRADA PAC 10/31/24 Ibuprofen (Ibuprofen) 600 Mg Tab, 1 TAB PO Q6HP PRN, #20 TAB Prov:MAMI ESTRADA PAC 10/31/24 Nitrofurantoin Monohydrate Mac (Macrobid) 100 Mg Cap, 100 MG PO BID for 7 Days, #14 CAP Prov:ANGELITO REYES MD 10/27/24 Nitrofurantoin (Nitrofurantoin) 100 Mg Cap, 100 MG PO BID for 10 Days, #20 CAP Prov:GURU BROWN MD 10/20/24 Fosfomycin Tromethamine (Fosfomycin Tromethamine) 3 Gm Pow, 3 GM PO ONCE for 1 Day, #1 POW Prov:GURU BROWN MD 10/20/24 Levofloxacin Hemihydrate (LEVOFLOXACIN) 750 Mg Tab, 750 MG PO DAILY for 10 Days, #10 TAB Prov:PORTER R,TONY RESIDENT 10/20/24 Olanzapine (OLANZAPINE) 5 Mg Tab, 10 MG PO [id number] PRN for 30 Days, #120 TAB Prov:TONY THAKKAR RESIDENT 09/29/24 Desmopressin Acetate (Ddavp Nasal) 1 Spr Sp, 1 SPR TONY DAILY for 30 Days, #1 UNIT Prov:TONY THAKKAR RESIDENT 09/29/24 Acetaminophen (Acetaminophen) 160 Mg/5 Ml [place], 325 MG PO Q6HR PRN for 10 Days, #30 UNIT Prov:TONY THAKKAR RESIDENT 09/29/24 Ondansetron Odt 4MG Tab (ZOFRAN PO) 4 Mg Tb, 4 MG PO TIDPRN PRN for 7 Days, #21 TAB ODT TAB-DISSOLVE IN MOUTH, THEN SWALLOW Prov:CHRISTAL ABRAHAM MD 07/08/24 Reported Medications Divalproex Sodium (Divalproex Sodium) 500 Mg Tab, 500 MG PO BID for 30 Days, MG 10/19/24 Midodrine HCl (Midodrine HCl) 10 Mg Tab, 10 MG, TAB 10/19/24 Pantoprazole Sodium Sesquihydr (Protonix) 40 Mg Tab, 40 MG PO DAILY, #30 TAB 10/19/24 Cyclobenzaprine Hcl (Cyclobenzaprine Hcl) 10 Mg Tab, 10 MG PO for 30 Days, MG 10/19/24 Albuterol Sulfate (Albuterol Sulfate (5 mg/ml) 0.5%) 1 Neb Neb, 1 NEB IN, INH 10/19/24 Haloperidol (Haldol) 5 Mg Tb, 3 MG PO BID, MG 03/15/24 Benztropine Mesylate (Benztropine Mesylate) 1 Mg Tab, 1 MG PO BID, MG 03/15/24 Trazodone Hcl (Trazodone Hcl) 50 Mg Tab, 75 MG PO HS, MG 03/15/24 Lorazepam (ATIVAN TABLET) 0.5 Mg Tb, 0.5 MG PO Q4HPRN PRN for ANXIETY, TAB 03/15/24 Current Medications Current Medications Medications (Trade) Dose Ordered Sig/Elaine Route PRN Reason Start Time Stop Time Status Last Admin Enoxaparin Sodium (Lovenox) 40 mg DAILY SC 05/12/25 10:00 05/12/25 10:32 Budesonide (Pulmicort) 0.5 mg BID [facility] 05/11/25 22:00 05/12/25 18:56 Albuterol (Ventolin Medneb) 2.5 mg Q6HWA [facility] 05/12/25 12:00 05/12/25 18:56 Ipratropium [place] (Atrovent Medneb) 0.5 mg Q6HWA [facility] 05/12/25 12:00 05/12/25 18:56 Review of Systems Constitutional: denies chills, denies fever, denies malaise Eyes: denies eye pain, denies vision change ENT: denies ear pain, denies headache, denies nasal congestion, denies painful swallowing, denies voice change Cardiovascular: denies chest pain, denies edema, denies orthopnea, denies palpitations, denies paroxysmal nocturnal dyspnea Respiratory: denies cough, denies shortness of breath Gastrointestinal: denies constipation, denies diarrhea, denies nausea, denies vomiting Genitourinary: denies dysuria, denies frequent urination, denies urethral discharge Musculoskeletal: denies back pain, denies joint pain, denies muscle pain Skin: denies bruising, denies itching, denies rash Neurological: denies focal weakness, denies headache, denies sensory changes Psychiatric: denies anxiety, denies depression Endocrine: denies polydipsia, denies polyuria Hematologic/Lymphatic: denies easy bleeding, denies easy bruising, denies enlarged lymph nodes Allergic/Immunologic: denies allergy, denies hives Vital Signs Vital Signs Date Time Temp Pulse Resp B/P (MAP) Pulse Ox O2 Delivery O2 Flow Rate FiO2 05/12/25 17:00 97.8 85 20 125/86 (99) 99 97.8 05/12/25 12:28 Nasal Cannula* 4 36 Physical Exam General Appearance: alert, no distress HEENT: EOMI, PERRLA, normal external inspect of ears, no icterus, no nasal drainage Neck: no carotid bruit, no jugular venous distention (JVD), no lymphadenopathy Chest: normal thorax Respiratory: clear to auscultation, normal air movement Cardiovascular: regular rate and rhythm, no diastolic murmur, no jugular venous distention (JVD), no rub, no systolic murmur Abdominal: soft, no hepatomegaly, no mass, no splenomegaly, no tenderness Genitourinary: grossly normal external Musculoskeletal: no joint tenderness, no swelling Extremities: normal pulses, no calf tenderness, no clubbing, no cyanosis, no edema Skin: no bruising, no jaundice, no rash Neurological: alert, No focal deficit SEPSIS Sepsis Screen Date sepsis recognized/suspect: May 11, 2025 Time Sepsis recognized/suspect: 1132 Recent Procedure: No On Antibiotic Therapy: Yes Respiratory Rate >20: Yes Heart Rate >90: No Temp<36 C (96.8 F) or >38.3 C: No SBP <90 or MAP <65 mmHG: No New Acute Mental Status Change: No Is the patient on CPAP, BIPAP,: No Physician Orders Chest Portable (05/11/25 10:26) Electrocardigram (05/11/25 10:31) Admit (05/11/25 12:09) Code Status (05/11/25 12:09) 2 Gm Sodium Diet (05/11/25 Lunch) Oxygen Per Hour (05/11/25 12:09) Hydrocodone-Acet 5/325mg Tab ([place] 5/32 (05/11/25 12:15) Temazepam (Restoril) (05/11/25 12:15) Ondansetron Hcl (Zofran) (05/11/25 12:15) Enoxaparin Sodium (Lovenox) (05/12/25 10:00) Condition: Fair (05/11/25 12:09) Acetaminophen Tablet (Tylenol Tablet) (05/11/25 12:15) Morphine Sulfate Injection (05/11/25 12:15) Sequential Compression Device (05/11/25 ) Nitroglycerin Sublingual (Ntrostat Subli (05/11/25 12:15) Morphine Sulfate Injection (05/11/25 12:15) Stat Ekg For Chest Pain (05/11/25 12:09) Notify Md Of Changes From Base (05/11/25 12:09) Bread Racker For 24 Hours (05/11/25 12:09) Emergency Dysrhythmia Protocol (05/11/25 12:09) Rhythm Strips Once Every Shift (05/11/25 12:09) Oxygen By Nasal Cannula (05/11/25 12:09) Doxycycline 100mg/100ml (Vibramycin) (05/11/25 12:15) Ipratropium Medneb (Atrovent Medneb) (05/11/25 12:15) E-Z Pap Therapy With [facility]hn As Or (05/11/25 12:09) Famotidine Injection (Pepcid Injection) (05/11/25 12:15) *Consult / (05/11/25 12:14) Budesonide (Inhalation) (Pulmicort) (05/11/25 22:00) Albuterol Medneb (Ventolin Medneb) (05/12/25 12:00) Ipratropium Medneb (Atrovent Medneb) (05/12/25 12:00) Trazodone Hcl (Desyrel) (05/12/25 22:00) Lorazepam Tablet (Ativan Tablet) (05/12/25 21:15) Nicotine 21mg/24hr (Nicoderm 21mg/24hr) (05/13/25 10:00) Vital Signs Date Time Temp Pulse Resp B/P (MAP) Pulse Ox O2 Delivery O2 Flow Rate FiO2 05/12/25 17:00 97.8 85 20 125/86 (99) 99 97.8 05/12/25 13:00 98.1 87 21 119/70 (86) 92 98.1 05/12/25 12:34 69 16 100 05/12/25 12:28 98 Nasal Cannula* 4 36 05/12/25 12:28 93 16 98 05/12/25 12:28 98 Nasal Cannula 4.0 05/12/25 10:00 93 Nasal Cannula* 4 36 05/12/25 10:00 93 Nasal Cannula 4.0 05/12/25 09:00 98.0 92 18 142/95 (111) 93 98.0 05/12/25 08:00 Nasal Cannula* 4 36 05/12/25 08:00 89 05/12/25 06:58 90 18 98 05/12/25 06:52 90 18 94 05/12/25 06:52 94 Nasal Cannula* 4 36 05/12/25 06:52 94 Nasal Cannula 4.0 05/12/25 05:00 98.3 96 20 122/78 (93) 94 98.3 05/12/25 01:00 98.1 88 19 125/85 (98) 99 98.1 05/11/25 22:30 Nasal Cannula* 3 32 05/11/25 22:30 99.1 84 20 126/88 (101) 99 99.1 05/11/25 21:00 99.1 85 20 126/88 (101) 99 99.1 05/11/25 19:40 91 19 96 Nasal Cannula* 2 28 05/11/25 19:40 98.1 91 19 150/85 (106) 96 98.1 05/11/25 18:31 100 Nasal Cannula 4.0 05/11/25 18:31 100 Nasal Cannula* 4 36 05/11/25 18:00 92 22 156/75 (102) 100 05/11/25 18:00 89 05/11/25 16:00 94 22 144/73 (96) 100 05/11/25 14:00 78 22 152/57 (88) 05/11/25 12:28 97.4 91 18 127/62 99 4.0 36 97.4 05/11/25 11:00 97.4 89 22 127/62 (83) 100 97.4 05/11/25 11:00 Nasal Cannula* 3 32 05/11/25 10:43 93 05/11/25 10:38 16 99 Nasal Cannula* 4 36 05/11/25 10:38 99 Nasal Cannula* 4 36 05/11/25 10:28 92 05/11/25 10:26 97.8 90 20 128/85 99 97.8 Laboratory Tests Test 05/11/25 11:00 05/12/25 06:00 White Blood Count 3.4 10^3/uL (4.4-10.8) L 3.4 10^3/uL (4.4-10.8) L Medications Medications Dose Ordered Sig/Elaine Route Start Time Stop Time Status Last Admin Dose Admin Albuterol 2.5 mg Q6HWA [facility] 05/12/25 12:00 05/12/25 18:56 Enoxaparin Sodium 40 mg DAILY SC 05/12/25 10:00 05/12/25 10:32 Ipratropium [place] 0.5 mg Q6HWA [facility] 05/12/25 12:00 05/12/25 18:56 Results Labs Test 05/12/25 06:00 05/11/25 11:57 Range/Units White Blood Count 3.4 L 4.4-10.8 10^3/uL Red Blood Count 4.61 4.0-5.20 10^6/uL Hemoglobin 15.0 12.2-16.2 g/dL Hematocrit 43.5 36.0-46.0 % Mean Corpuscular Volume 94.5 80.0-100.0 fL Mean Corpuscular Hemoglobin 32.5 H 28.0-32.0 pg Mean Corpuscular Hemoglobin Concent 34.4 32.0-36.0 g/dL Red Cell Distribution Width 14.4 H 11.8-14.3 % Platelet Count 161 140-450 10^3/uL Mean Platelet Volume 7.9 6.9-10.8 fL Neutrophils (%) (Auto) 55.5 37.0-80.0 % Lymphocytes (%) (Auto) 25.6 10.0-50.0 % Monocytes (%) (Auto) 18.5 H 0.0-12.0 % Eosinophils (%) (Auto) 0.2 0.0-7.0 % Basophils (%) (Auto) 0.2 0.0-2.0 % Neutrophils # (Auto) 1.9 1.6-8.6 10 ^3/uL Lymphocytes # (Auto) 0.9 0.4-5.4 10 ^3/uL Monocytes # (Auto) 0.6 0-1.3 10 ^3/uL Eosinophils # (Auto) 0 0-0.8 10 ^3/uL Basophils # (Auto) 0 0-0.2 10 ^3/uL Nucleated Red Blood Cells 0.1 % Sodium Level 129 L 136-145 mmol/L Potassium Level 4.4 3.5-5.1 mmol/L Chloride Level 91 L 98-107 mmol/L Carbon Dioxide Level 33 H 20-31 mmol/L Anion Gap 5 5-15 Blood Urea Nitrogen < 5 L 9-23 mg/dL Creatinine 0.50 L 0.550-1.02 mg/dL Glomerular Filtration Rate Calc 110 >90 mL/min BUN/Creatinine Ratio 10.0 10.0-20.0 Serum Glucose 89 74-106 mg/dL Calcium Level 9.0 8.7-10.4 mg/dL Total Bilirubin 0.3 0.2-1.0 mg/dL Aspartate Amino Transferase (AST) 14 13-40 U/L Alanine Aminotransferase (ALT) 13 7-40 U/L Alkaline Phosphatase 84 46-116 U/L Total Protein 6.0 5.7-8.2 g/dL Albumin 4.2 3.2-4.8 g/dL Hepatitis B Surface Antigen Negative Negative Hepatitis C Antibody Negative Negative Urine Color Colorless Yellow Urine Clarity Clear Clear Urine pH 7.0 5.0-9.0 Urine Specific [place] 1.003 1.001-1.035 Urine Protein Negative Negative Urine Ketones Negative Negative Urine Blood Negative Negative /uL Urine Nitrite Negative Negative Urine Bilirubin Negative Negative Urine Urobilinogen Normal Negative mg/dL Urine Leukocyte Esterase Negative Negative /uL Urine RBC <1 0 - 4 /hpf Urine Microscopic WBC < 1 0-5 /HPF Urine Squamous Epithelial Cells None seen <5 /hpf Urine Bacteria None seen None Seen /hpf Urine Glucose Normal Normal mg/dL Microbiology Date/Time Source Procedure Growth Status 05/12/25 00:20 Nose MRSA Screen - Final Complete Plan 1. Acute on chronic respiratory failure Monitor, Pulmonary consult 2. O2 dependent non compliant Monitor, Pulmonary consult, supplemental O2 3. COPD exacerbation with pneumonitis Monitor, med neb tx 4. Bipolar Monitor, restart home meds 5. Hyponatremia- Most likely medication induced from depakote Monitor, daily labs Plan discussed with: Patient, Other JOYA PLATT NP May 11, 2025 12:15
[2025-05-11 12:28] VITALS: BP 127/62; PULSE 91; RESP 18; TEMP 97.4; O2SAT 99
[2025-05-11] MEDS: DOXYCYCLINE 100MG/100ML 100 ML IV SCH (13:18)
[2025-05-11 13:21] LABS: Urine Protein, UAD Negative (Negative)
[2025-05-11] MEDS: FAMOTIDINE (10MG/ML) 2ML VL IV SCH (13:21)
[2025-05-11 18:31] VITALS: O2SAT 100
--- NOTE | 2025-05-11 19:06 | DVHINCON2 ---
Date of service: May 11, 2025 Referring Physician EZ Platt Reason for Consultation Acute hypoxic respiratory failure and COPD exacerbation. History of Present Illness A 55-year-old woman with PMHx including COPD, hypertension, seizure, and bipolar disorder who is brought to ED today by paramedics because of shortness of breath which started this morning. She was brought from [facility]. Patient continues to smoke cigarettes. She was smoking without oxygen - is noncompliant with her oxygen. HPI information is limited due to difficulty obtaining a good history from patient. Patient was admitted for further care. Pulmonary consultation is requested for evaluation and management of acute hypoxic respiratory failure and COPD exacerbation. Review of Systems: 14-point review of systems negative unless otherwise noted above. Past Medical History: COPD, hypertension, seizure, gallstones, UTIs, bipolar disorder, schizophrenia. Past Surgical History: None Medications: Reviewed. Allergies: Lactose Azithromycin Family History: COPD, schizophrenia and anxiety. Social History: Current smoker No alcohol or illicit drug use. Family History: Anxiety disorder FH: COPD (chronic obstructive pulmonary disease) FH: schizophrenia Allergies: Coded Allergies: Lactose (Verified Allergy, Severe, 11/15/24) Azithromycin (Verified Allergy, Unknown, 05/11/25) Home Meds Active Scripts Prednisone (Prednisone) 20 Mg Tab, 20 MG PO BID for 5 Days, #10 TAB Prov:MANDY OJEDA MD 05/15/25 Albuterol Sulfate (Albuterol Sulfate Hfa) 108 Mcg/Act Aer, 108 MCG IN Q6HP PRN, #1 AER 5 Refills Prov:MANDY OJEDA MD 05/15/25 Albuterol Sulfate (Albuterol Sulfate) 0.083 % Neb, 1 VIAL NEB Q4HPRN PRN, #50 VIAL 5 Refills Prov:MANDY OJEDA MD 05/15/25 Doxycycline (Monohydrate) (Doxycycline) 100 Mg Cap, 100 MG PO BID for 7 Days, #14 CAP Prov:JOYA PLATT NP 05/13/25 Albuterol Sulfate (Albuterol Sulfate Hfa) 108 Mcg/Act Aer, 108 MCG IN Q4HP PRN for 30 Days, #1 AER 2 puffs inhalation Prov:JOYA PLATT NP 05/13/25 Ibuprofen (Ibuprofen) 800 Mg Tab, 1 TAB PO TID, #20 TAB Prov:RAMIRO HANKS 12/10/24 Acetaminophen (Acetaminophen) 500 Mg Tab, 500 MG PO Q4HPRN, #30 TAB 0 Refills Prov:KENTON PARTIDA 11/24/24 Baclofen (Baclofen) 20 Mg Tab, 1 TAB PO TID, #90 TAB 3 Refills Prov:MADHAV CASTRO [employer]K [employer]ENT 11/03/24 Acetaminophen (Acetaminophen) 500 Mg Tab, 500 MG PO Q4HP PRN, #20 TAB Prov:MAMI ESTRADA PAC 10/31/24 Ibuprofen (Ibuprofen) 600 Mg Tab, 1 TAB PO Q6HP PRN, #20 TAB Prov:MAMI ESTRADA PAC 10/31/24 Nitrofurantoin Monohydrate Mac (Macrobid) 100 Mg Cap, 100 MG PO BID for 7 Days, #14 CAP Prov:ANGELITO REYES MD 10/27/24 Fosfomycin Tromethamine (Fosfomycin Tromethamine) 3 Gm Pow, 3 GM PO ONCE for 1 Day, #1 POW Prov:GURU BROWN MD 10/20/24 Olanzapine (OLANZAPINE) 5 Mg Tab, 10 MG PO [id number] PRN for 30 Days, #120 TAB Prov:TONY THAKKAR 09/29/24 Desmopressin Acetate (Ddavp Nasal) 1 Spr Sp, 1 SPR TONY DAILY for 30 Days, #1 UNIT Prov:TONY THAKKAR 09/29/24 Acetaminophen (Acetaminophen) 160 Mg/5 Ml Polina, 325 MG PO Q6HR PRN for 10 Days, #30 UNIT Prov:TONY THAKKAR RESIDENT 09/29/24 Reported Medications Divalproex Sodium (Divalproex Sodium) 500 Mg Tab, 500 MG PO BID for 30 Days, MG 10/19/24 Midodrine HCl (Midodrine HCl) 10 Mg Tab, 10 MG, TAB 10/19/24 Pantoprazole Sodium Sesquihydr (Protonix) 40 Mg Tab, 40 MG PO DAILY, #30 TAB 10/19/24 Cyclobenzaprine Hcl (Cyclobenzaprine Hcl) 10 Mg Tab, 10 MG PO for 30 Days, MG 10/19/24 Albuterol Sulfate (Albuterol Sulfate (5 mg/ml) 0.5%) 1 Neb Neb, 1 NEB IN, INH 10/19/24 Haloperidol (Haldol) 5 Mg Tb, 3 MG PO BID, MG 03/15/24 Benztropine Mesylate (Benztropine Mesylate) 1 Mg Tab, 1 MG PO BID, MG 03/15/24 Trazodone Hcl (Trazodone Hcl) 50 Mg Tab, 75 MG PO HS, MG 03/15/24 Lorazepam (ATIVAN TABLET) 0.5 Mg Tb, 0.5 MG PO Q4HPRN PRN for ANXIETY, TAB 03/15/24 Discontinued Scripts Nitrofurantoin (Nitrofurantoin) 100 Mg Cap, 100 MG PO BID for 10 Days, #20 CAP Prov:GURU BROWN MD 10/20/24 Levofloxacin Hemihydrate (LEVOFLOXACIN) 750 Mg Tab, 750 MG PO DAILY for 10 Days, #10 TAB Prov:TONY THAKKAR 10/20/24 Ondansetron Odt 4MG Tab (ZOFRAN PO) 4 Mg Tb, 4 MG PO TIDPRN PRN for 7 Days, #21 TAB ODT TAB-DISSOLVE IN MOUTH, THEN SWALLOW Prov:CHRISTAL ABRAHAM MD 07/08/24 Current Medications Current Medications Medications (Trade) Dose Ordered Sig/Elaine Route PRN Reason Start Time Stop Time Status Last Admin Acetaminophen/ Hydrocodone Bitart ([place] 5/325MG Tab) 1 tab Q4HP PRN PO MODERATE PAIN (4-6 PAIN SCALE) 05/11/25 12:15 Temazepam (Restoril) 15 mg QHSP PRN PO FOR INSOMNIA 05/11/25 12:15 Ondansetron HCl (Zofran) 4 mg Q4HP PRN IV NAUSEA / VOMITING 05/11/25 12:15 Enoxaparin Sodium (Lovenox) 40 mg DAILY SC 05/12/25 10:00 Acetaminophen (Tylenol Tablet) 650 mg Q6HP PRN PO PAIN SCALE 1-3 OR TEMP>100.4 05/11/25 12:15 Morphine Sulfate 2 mg Q4HPRN PRN IV SEVERE PAIN (7-10 PAIN SCALE) 05/11/25 12:15 Nitroglycerin (Ntrostat Sublingual) 0.4 mg Q5MINP PRN SL FOR CHEST PAIN 05/11/25 12:15 Morphine Sulfate 2 mg Q30M PRN IV FOR CHEST PAIN 05/11/25 12:15 Doxycycline Hyclate 100 ml @ 50 mls/hr BID IV 05/11/25 12:15 05/11/25 13:18 Budesonide (Pulmicort) 0.5 mg BID NEB 05/11/25 12:15 05/11/25 14:05 DC Ipratropium [place] (Atrovent Medneb) 0.5 mg Q4HPRN PRN NEB SHORTNESS OF BREATH 05/11/25 12:15 Famotidine (Pepcid Injection) 20 mg BID IV 05/11/25 12:15 05/11/25 13:21 Budesonide (Pulmicort) 0.5 mg BID NEB 05/11/25 22:00 Vital Signs Vital Signs Date Time Temp Pulse Resp B/P (MAP) Pulse Ox O2 Delivery O2 Flow Rate FiO2 05/11/25 18:31 100 Nasal Cannula 4.0 05/11/25 18:31 36 05/11/25 18:00 92 22 156/75 (102) 05/11/25 12:28 97.4 97.4 Physical Exam Gen.: Patient lying in bed in no apparent distress. On supplemental oxygen. Head: Normocephalic, atraumatic. Eyes: EOMI/PERRLA. Ears: Normal hearing. Normal anatomy. Neck/trachea: Trachea midline, supple. Nose: Normal external anatomy. Mouth: Moist mucous membranes. Chest: Decreased air entry bilaterally. No wheezing or rhonchi. Cardiovascular: Positive S1, positive S2. Regular rate and rhythm. Abdomen: Positive bowel sounds in all 4 quadrants. Soft, non-tender, non- distended. : Deferred. Rectal: Deferred. Skin: Warm, dry. Intact. Extremities: 2+ radial pulses bilaterally. No lower extremity edema. Neuro: Awake, alert, oriented x3. No gross motor or sensory deficits. Cranial nerves II through XII intact. Gait not assessed. Labs/Diagnostic Data Labs Test 05/11/25 11:57 05/11/25 11:00 Range/Units Urine Color Colorless Yellow Urine Clarity Clear Clear Urine pH 7.0 5.0-9.0 Urine Specific [place] 1.003 1.001-1.035 Urine Protein Negative Negative Urine Ketones Negative Negative Urine Blood Negative Negative /uL Urine Nitrite Negative Negative Urine Bilirubin Negative Negative Urine Urobilinogen Normal Negative mg/dL Urine Leukocyte Esterase Negative Negative /uL Urine RBC <1 0 - 4 /hpf Urine Microscopic WBC < 1 0-5 /HPF Urine Squamous Epithelial Cells None seen <5 /hpf Urine Bacteria None seen None Seen /hpf Urine Glucose Normal Normal mg/dL White Blood Count 3.4 L 4.4-10.8 10^3/uL Red Blood Count 4.56 4.0-5.20 10^6/uL Hemoglobin 14.7 12.2-16.2 g/dL Hematocrit 43.1 36.0-46.0 % Mean Corpuscular Volume 94.5 80.0-100.0 fL Mean Corpuscular Hemoglobin 32.3 H 28.0-32.0 pg Mean Corpuscular Hemoglobin Concent 34.2 32.0-36.0 g/dL Red Cell Distribution Width 14.6 H 11.8-14.3 % Platelet Count 151 140-450 10^3/uL Mean Platelet Volume 8.1 6.9-10.8 fL Neutrophils (%) (Auto) 70.6 37.0-80.0 % Lymphocytes (%) (Auto) 19.0 10.0-50.0 % Monocytes (%) (Auto) 9.6 0.0-12.0 % Eosinophils (%) (Auto) 0.5 0.0-7.0 % Basophils (%) (Auto) 0.3 0.0-2.0 % Neutrophils # (Auto) 2.4 1.6-8.6 10 ^3/uL Lymphocytes # (Auto) 0.6 0.4-5.4 10 ^3/uL Monocytes # (Auto) 0.3 0-1.3 10 ^3/uL Eosinophils # (Auto) 0 0-0.8 10 ^3/uL Basophils # (Auto) 0 0-0.2 10 ^3/uL Nucleated Red Blood Cells 0.2 % Sodium Level 128 L 136-145 mmol/L Potassium Level 4.1 3.5-5.1 mmol/L Chloride Level 93 L 98-107 mmol/L Carbon Dioxide Level 29 20-31 mmol/L Anion Gap 6 5-15 Blood Urea Nitrogen < 5 L 9-23 mg/dL Creatinine 0.45 L 0.550-1.02 mg/dL Glomerular Filtration Rate Calc 113 >90 mL/min BUN/Creatinine Ratio 11.1 10.0-20.0 Serum Glucose 78 74-106 mg/dL Calcium Level 8.8 8.7-10.4 mg/dL Assessment Impression: Acute hypoxic respiratory failure Acute COPD exacerbation Dependence on supplemental oxygen Atelectasis Nicotine dependence Bipolar disorder Schizophrenia Plan: Supplemental oxygen Currently on 2 LPM NC Titrate to keep O2 sats above 92%. Taper O2 as tolerated. CXR reviewed, demonstrated interstitial opacities, right greater than left. Continue bronchodilators. Continue antibiotics Incentive spirometry Monitor renal function. Monitor electrolytes. Supplement as necessary. Monitor ins and outs. Smoking cessation discussed greater than 10 minutes DVT prophylaxis. Prognosis: Poor given patient's multiple co-morbidities. Rest of plan per hospitalist and other consultants. Thank you, EZ Platt, for allowing me to participate in this patient's care. Further recommendations will depend on the patient's clinical course. Please do not hesitate to contact me if you have any questions or concerns. This medical document was created using an electronic medical record system with [employer] computerized dictation system. Although these documentations are being carefully reviewed, there may still be some phonetic and typographical changes. The errors are purely typographical, due to imperfection on the software program, and do not reflect any compromise in the patient's medical care. Plan discussed with: Patient, Other (RN/EZ Platt/) BRITANY MEDRANO MD May 11, 2025 19:06
[2025-05-11 19:40] VITALS: PULSE 91; RESP 19; O2SAT 96
[2025-05-11 21:00] VITALS: BP 126/88; PULSE 85; RESP 20; TEMP 99.1; O2SAT 99
[2025-05-11 22:30] VITALS: BP 126/88; PULSE 84; RESP 20; TEMP 99.1; O2SAT 99
[2025-05-11] MEDS: BUDESONIDE (INHALATION) 0.5 MG/2 ML NEB NEB SCH (22:47)
[2025-05-12] VITALS (15 sets, daily range): BP systolic 119–142; BP diastolic 70–95; PULSE 69–96; RESP 14–21; TEMP 97.5–98.3; O2SAT 92–100
[2025-05-12 06:21] LABS: Hematocrit 43.5 % (36.0-46.0); Hemoglobin 15.0 g/dL (12.2-16.2); Mean Corpuscular Hemoglobin 32.5 pg (28.0-32.0); Mean Corpuscular Volume 94.5 fL (80.0-100.0); Nucleated Red Blood Cells % 0.1 %
[2025-05-12 06:40] LABS: Alanine Aminotransferase 13 U/L (7-40); Albumin 4.2 g/dL (3.2-4.8); Alkaline Phosphatase 84 U/L (46-116); Anion Gap 5 (5-15); Calcium 9.0 mg/dL (8.7-10.4); Glucose 89 mg/dL (74-106); Potassium 4.4 mmol/L (3.5-5.1); Total Protein 6.0 g/dL (5.7-8.2)
[2025-05-12 06:41] LABS: Bilirubin, Total 0.3 mg/dL (0.2-1.0)
[2025-05-12 06:45] LABS: BUN/Creatinine Ratio 10.0 (10.0-20.0); Blood Urea Nitrogen < 5 mg/dL (9-23); Carbon Dioxide 33 mmol/L (20-31); Chloride 91 mmol/L (98-107); Sodium 129 mmol/L (136-145)
[2025-05-12] MEDS: ENOXAPARIN SOD 40 MG/0.4 ML SYRINGE SC SCH (10:32)
[2025-05-12 11:22] LABS: Hepatitis B Surface Antigen Negative (Negative); Hepatitis C Antibody Negative (Negative)
[2025-05-12] MEDS: ALBUTEROL SULF 2.5 MG/0.5ML(0.5%) NEB SOLN NEB SCH (12:28)
[2025-05-12] MEDS: IPRATROPIUM BROM 0.5 MG/2.5ML INH SOL NEB SCH (12:28)
--- NOTE | 2025-05-12 12:29 | DVHPN2 ---
Progress Note - Dictate Date Seen: May 12, 2025 Medical Necessity Reason Pt with a Central, PICC or Fol: No vital signs Vital Sign Date Time Temp Pulse Resp B/P (MAP) Pulse Ox O2 Delivery O2 Flow Rate FiO2 05/12/25 06:58 90 18 98 05/12/25 06:52 Nasal Cannula* 4 36 05/12/25 05:00 98.3 122/78 (93) 98.3 Total Intake and Output 05/11/25 05/11/25 05/12/25 15:00 23:00 07:00 Intake Total 150 ml 50 ml 1200 ml Balance 150 ml 50 ml 1200 ml medications Current Medications Medications Dose Ordered Sig/Elaine Route Start Time Stop Time Status Last Admin Dose Admin Acetaminophen/ Hydrocodone Bitart 1 tab Q4HP PRN PO 05/11/25 12:15 Temazepam 15 mg QHSP PRN PO 05/11/25 12:15 Ondansetron HCl 4 mg Q4HP PRN IV 05/11/25 12:15 Enoxaparin Sodium 40 mg DAILY SC 05/12/25 10:00 05/12/25 10:32 40 MG Acetaminophen 650 mg Q6HP PRN PO 05/11/25 12:15 Morphine Sulfate 2 mg Q4HPRN PRN IV 05/11/25 12:15 Nitroglycerin 0.4 mg Q5MINP PRN SL 05/11/25 12:15 Morphine Sulfate 2 mg Q30M PRN IV 05/11/25 12:15 Doxycycline Hyclate 100 ml @ 50 mls/hr BID IV 05/11/25 12:15 05/12/25 10:18 50 MLS/HR Ipratropium [place] 0.5 mg Q4HPRN PRN NEB 05/11/25 12:15 Famotidine 20 mg BID IV 05/11/25 12:15 05/12/25 10:16 20 MG Budesonide 0.5 mg BID NEB 05/11/25 22:00 05/12/25 06:52 0.5 MG Albuterol 2.5 mg Q6HWA NEB 05/12/25 12:00 Ipratropium [place] 0.5 mg Q6HWA NEB 05/12/25 12:00 laboratory and microbiology Laboratory Tests 05/12/25 06:00 Test 05/12/25 06:00 Range/Units Serum Glucose 89 74-106 mg/dL Problem List 1. Acute on chronic respiratory failure Monitor, Pulmonary consult 2. O2 dependent non compliant Monitor, Pulmonary consult, supplemental O2 3. COPD exacerbation with pneumonitis Monitor, med neb tx 4. Bipolar Monitor, restart home meds 5. Hyponatremia- Most likely medication induced from depakote Monitor, daily labs Assessment/Plan Subjective Patient is a&o x 3 Objective Patient was admitted for COPD exacerbation. Patient is a current smoker. She smokes about 1 pack a day. There is a sitter at bedside. Patient is reportedly supposed to get off O2. Currently on 4 L nasal cannula. Plan Continue Med-Neb treatments. Pulmonary consult. Continue to wean down O2. Possible DC for tomorrow if stable. Plan discussed with: Patient, Other JOYA PLATT NP May 12, 2025 12:29
[2025-05-12] MEDS: ACETAMINOPHEN 325 MG TAB PO PRN (17:52)
[2025-05-12] MEDS: LORazepam 0.5 MG TAB PO PRN (22:03)
--- NOTE | 2025-05-12 22:50 | DVHPN2 ---
Progress Note - Dictate Date Seen: May 12, 2025 Medical Necessity Reason Pt with a Central, PICC or Fol: No Subjective Patient seen and examined at bedside. Remains on supplemental oxygen Overnight events reviewed. vital signs Vital Sign Date Time Temp Pulse Resp B/P (MAP) Pulse Ox O2 Delivery O2 Flow Rate FiO2 05/12/25 21:00 97.5 85 14 119/70 (86) 92 97.5 05/12/25 18:56 Nasal Cannula 2.0 05/12/25 18:56 28 Total Intake and Output 05/11/25 05/11/25 05/12/25 15:00 23:00 07:00 Intake Total 150 ml 50 ml 1200 ml Balance 150 ml 50 ml 1200 ml medications Current Medications Medications Dose Ordered Sig/Elaine Route Start Time Stop Time Status Last Admin Dose Admin Acetaminophen/ Hydrocodone Bitart 1 tab Q4HP PRN PO 05/11/25 12:15 Temazepam 15 mg QHSP PRN PO 05/11/25 12:15 Ondansetron HCl 4 mg Q4HP PRN IV 05/11/25 12:15 Enoxaparin Sodium 40 mg DAILY SC 05/12/25 10:00 05/12/25 10:32 40 MG Acetaminophen 650 mg Q6HP PRN PO 05/11/25 12:15 05/12/25 17:52 650 MG Morphine Sulfate 2 mg Q4HPRN PRN IV 05/11/25 12:15 Nitroglycerin 0.4 mg Q5MINP PRN SL 05/11/25 12:15 Morphine Sulfate 2 mg Q30M PRN IV 05/11/25 12:15 Doxycycline Hyclate 100 ml @ 50 mls/hr BID IV 05/11/25 12:15 05/12/25 10:18 50 MLS/HR Ipratropium [place] 0.5 mg Q4HPRN PRN NEB 05/11/25 12:15 Famotidine 20 mg BID IV 05/11/25 12:15 05/12/25 10:16 20 MG Budesonide 0.5 mg BID NEB 05/11/25 22:00 05/12/25 18:56 0.5 MG Albuterol 2.5 mg Q6HWA NEB 05/12/25 12:00 05/12/25 18:56 2.5 MG Ipratropium [place] 0.5 mg Q6HWA NEB 05/12/25 12:00 05/12/25 18:56 0.5 MG Trazodone HCl 50 mg HS PO 05/12/25 22:00 Lorazepam 0.5 mg Q6HP PRN PO 05/12/25 21:15 05/12/25 22:03 0.5 MG Nicotine 1 patch DAILY TD 05/13/25 10:00 objective Gen.: Patient lying in bed in no apparent distress. On supplemental oxygen. Head: Normocephalic, atraumatic. Eyes: EOMI/PERRLA. Ears: Normal hearing. Normal anatomy. Neck/trachea: Trachea midline, supple. Nose: Normal external anatomy. Mouth: Moist mucous membranes. Chest: Decreased air entry bilaterally. No wheezing or rhonchi. Cardiovascular: Positive S1, positive S2. Regular rate and rhythm. Abdomen: Positive bowel sounds in all 4 quadrants. Soft, non-tender, non- distended. : Deferred. Rectal: Deferred. Skin: Warm, dry. Intact. Extremities: 2+ radial pulses bilaterally. No lower extremity edema. Neuro: Awake, alert, confused. No gross motor or sensory deficits. Cranial nerves II through XII intact. Gait not assessed. laboratory and microbiology Laboratory Tests 05/12/25 06:00 Test 05/12/25 06:00 Range/Units Serum Glucose 89 74-106 mg/dL Assessment/Plan Impression: Acute hypoxic respiratory failure Acute COPD exacerbation Dependence on supplemental oxygen Atelectasis Nicotine dependence Bipolar disorder Schizophrenia Events: Remains on supplemental oxygen Currently on 4 LPM NC Taper O2 as tolerated Patient using accessory muscles to breathe. She is confused - sitter at bedside for safety. Continue bronchodilators q.6 hours scheduled Pulmicort BID Incentive spirometry Labs and imaging reviewed. Rest of plan as noted below. Plan: Supplemental oxygen Titrate to keep O2 sats above 92%. CXR on 05/11/25 demonstrated interstitial opacities, right greater than left. Continue bronchodilators. Incentive spirometry Monitor renal function. Monitor electrolytes. Supplement as necessary. Monitor ins and outs. Smoking cessation discussed greater than 10 minutes DVT prophylaxis. Prognosis: Poor given patient's multiple co-morbidities. Rest of plan per hospitalist and other consultants. Thank you, EZ Tatum, for allowing me to participate in this patient's care. Further recommendations will depend on the patient's clinical course. Please do not hesitate to contact me if you have any questions or concerns. This medical document was created using an electronic medical record system with [employer] dictation system. Although these documentations are being carefully reviewed, there may still be some phonetic and typographical changes. The errors are purely typographical, due to imperfection on the software program, and do not reflect any compromise in the patient's medical care. Plan discussed with: Patient, Other (SIL Beltran) BRITANY MEDRANO MD May 12, 2025 22:50
[2025-05-13] VITALS (11 sets, daily range): BP systolic 109–140; BP diastolic 79–89; PULSE 51–94; RESP 16–20; TEMP 97.8–98.8; O2SAT 88–100
[2025-05-13] MEDS: NICOTINE 21MG/24 HR TOPICAL PATCH TD SCH (11:23)
--- NOTE | 2025-05-13 11:41 | DVHPN2 ---
Progress Note - Dictate Medical Necessity Reason Pt with a Central, PICC or Fol: No vital signs Vital Sign Date Time Temp Pulse Resp B/P (MAP) Pulse Ox O2 Delivery O2 Flow Rate FiO2 05/13/25 11:32 98 Nasal Cannula 3.0 05/13/25 11:32 73 16 05/13/25 11:32 32 05/13/25 09:00 97.8 109/80 (90) 97.8 Total Intake and Output 05/12/25 05/12/25 05/13/25 14:59 22:59 06:59 Intake Total 740 ml 800 ml Output Total 650 ml Balance 740 ml 150 ml medications Current Medications Medications Dose Ordered Sig/Elaine Route Start Time Stop Time Status Last Admin Dose Admin Acetaminophen/ Hydrocodone Bitart 1 tab Q4HP PRN PO 05/11/25 12:15 Temazepam 15 mg QHSP PRN PO 05/11/25 12:15 Ondansetron HCl 4 mg Q4HP PRN IV 05/11/25 12:15 Enoxaparin Sodium 40 mg DAILY SC 05/12/25 10:00 05/13/25 11:20 40 MG Acetaminophen 650 mg Q6HP PRN PO 05/11/25 12:15 05/12/25 17:52 650 MG Morphine Sulfate 2 mg Q4HPRN PRN IV 05/11/25 12:15 Nitroglycerin 0.4 mg Q5MINP PRN SL 05/11/25 12:15 Morphine Sulfate 2 mg Q30M PRN IV 05/11/25 12:15 Doxycycline Hyclate 100 ml @ 50 mls/hr BID IV 05/11/25 12:15 05/13/25 11:19 50 MLS/HR Ipratropium [place] 0.5 mg Q4HPRN PRN NEB 05/11/25 12:15 Famotidine 20 mg BID IV 05/11/25 12:15 05/13/25 11:23 20 MG Budesonide 0.5 mg BID NEB 05/11/25 22:00 05/13/25 07:54 0.5 MG Albuterol 2.5 mg Q6HWA NEB 05/12/25 12:00 05/13/25 11:32 2.5 MG Ipratropium [place] 0.5 mg Q6HWA NEB 05/12/25 12:00 05/13/25 11:32 0.5 MG Trazodone HCl 50 mg HS PO 05/12/25 22:00 Lorazepam 0.5 mg Q6HP PRN PO 05/12/25 21:15 05/12/25 22:03 0.5 MG Nicotine 1 patch DAILY TD 05/13/25 10:00 05/13/25 11:23 1 PATCH laboratory and microbiology Laboratory Tests 05/12/25 06:00 Test 05/12/25 06:00 Range/Units Serum Glucose 89 74-106 mg/dL Problem List 1. Acute on chronic respiratory failure Monitor, Pulmonary consult 2. O2 dependent non compliant Monitor, Pulmonary consult, supplemental O2 3. COPD exacerbation with pneumonitis Monitor, med neb tx 4. Bipolar Monitor, restart home meds 5. Hyponatremia- Most likely medication induced from depakote Monitor, daily labs Assessment/Plan Subjective Patient is a&o x 3 Objective Patient was admitted for COPD exacerbation. Patient is a current smoker. She smokes about 1 pack a day. There is a sitter at bedside. Patient is reportedly supposed to get off O2. Currently on 4 L nasal cannula. Plan Continue Med-Neb treatments. Pulmonary consult. Continue to wean down O2. Possible DC for tomorrow if stable. JOYA PLATT NP May 13, 2025 11:41
[2025-05-13] MEDS ORDERED: ALBU108A5 IN ×2 (13:22)
[2025-05-13] MEDS ORDERED: DOXY1CAP58 PO ×2 (13:22)
[2025-05-13] MEDS ORDERED: HALOPERIDOL 5 MG TAB PO SCH ×2 (13:30→22:00)
--- NOTE | 2025-05-13 20:25 | DVHDS2 ---
Discharge Summary Date of Admission May 11, 2025 at 12:09 Date of Discharge: May 13, 2025 Labs/Diagnostic Data: Laboratory Results Test 05/12/25 06:00 05/11/25 11:57 White Blood Count 3.4 10^3/uL (4.4-10.8) Red Blood Count 4.61 10^6/uL (4.0-5.20) Hemoglobin 15.0 g/dL (12.2-16.2) Hematocrit 43.5 % (36.0-46.0) Mean Corpuscular Volume 94.5 fL (80.0-100.0) Mean Corpuscular Hemoglobin 32.5 pg (28.0-32.0) Mean Corpuscular Hemoglobin Concent 34.4 g/dL (32.0-36.0) Red Cell Distribution Width 14.4 % (11.8-14.3) Platelet Count 161 10^3/uL (140-450) Mean Platelet Volume 7.9 fL (6.9-10.8) Neutrophils (%) (Auto) 55.5 % (37.0-80.0) Lymphocytes (%) (Auto) 25.6 % (10.0-50.0) Monocytes (%) (Auto) 18.5 % (0.0-12.0) Eosinophils (%) (Auto) 0.2 % (0.0-7.0) Basophils (%) (Auto) 0.2 % (0.0-2.0) Neutrophils # (Auto) 1.9 10 ^3/uL (1.6-8.6) Lymphocytes # (Auto) 0.9 10 ^3/uL (0.4-5.4) Monocytes # (Auto) 0.6 10 ^3/uL (0-1.3) Eosinophils # (Auto) 0 10 ^3/uL (0-0.8) Basophils # (Auto) 0 10 ^3/uL (0-0.2) Nucleated Red Blood Cells 0.1 % Sodium Level 129 mmol/L (136-145) Potassium Level 4.4 mmol/L (3.5-5.1) Chloride Level 91 mmol/L (98-107) Carbon Dioxide Level 33 mmol/L (20-31) Anion Gap 5 (5-15) Blood Urea Nitrogen < 5 mg/dL (9-23) Creatinine 0.50 mg/dL (0.550-1.02) Glomerular Filtration Rate Calc 110 mL/min (>90) BUN/Creatinine Ratio 10.0 (10.0-20.0) Serum Glucose 89 mg/dL (74-106) Calcium Level 9.0 mg/dL (8.7-10.4) Total Bilirubin 0.3 mg/dL (0.2-1.0) Aspartate Amino Transferase (AST) 14 U/L (13-40) Alanine Aminotransferase (ALT) 13 U/L (7-40) Alkaline Phosphatase 84 U/L (46-116) Total Protein 6.0 g/dL (5.7-8.2) Albumin 4.2 g/dL (3.2-4.8) Hepatitis B Surface Antigen Negative (Negative) Hepatitis C Antibody Negative (Negative) Urine Color Colorless (Yellow) Urine Clarity Clear (Clear) Urine pH 7.0 (5.0-9.0) Urine Specific [place] 1.003 (1.001-1.035) Urine Protein Negative (Negative) Urine Ketones Negative (Negative) Urine Blood Negative /uL (Negative) Urine Nitrite Negative (Negative) Urine Bilirubin Negative (Negative) Urine Urobilinogen Normal mg/dL (Negative) Urine Leukocyte Esterase Negative /uL (Negative) Urine RBC <1 /hpf (0 - 4) Urine Microscopic WBC < 1 /HPF (0-5) Urine Squamous Epithelial Cells None seen /hpf (<5) Urine Bacteria None seen /hpf (None Seen) Urine Glucose Normal mg/dL (Normal) Other Laboratory Tests 05/12/25 06:00 Brief Hx & Hospital Course: 55-year-old female brought by paramedics because of shortness a breath which started this morning. She was brought from [facility]. She continues to smoke cigarettes. She was smoking without oxygen. She is noncompliant with her oxygen. She does have history of COPD hypertension seizures bipolar disorder. Unable to get good history from the patient. Patient was admitted on 05/11/2025 for acute on chronic hypoxic respiratory failure related to COPD exacerbation. COPD most likely by secondary bacterial infection. Antibiotics and inhaler were sent to pharmacy. Patient has a history of bipolar and schizophrenia. Patient is a resident of [facility]. Patient was restarted on her antipsychotics and her mentation did improve. Patient has a history of being medically noncompliant. She does not wear her oxygen as prescribed at home. Patient's condition did improve and she was discharged back via medical transport van to [facility]. She was instructed to follow-up with her PCP in 1 week. The patient received proper medical treatment and medications. Vital signs, Imaging and Laboratory Work was monitored daily. All consults recommendations were followed as provided. There were no complaints or new complaints upon discharge, all questions and concerns were answered. Patient was advised to return to the ER or call 911 if any headaches, dizziness, shortness of breath, chest pain, bleeding, fevers, or worsening of medical condition. Patient/Family was counseled about treatment plan, medications, possible side effects, patient verbalized understanding. All questions were answered to the best of my ability. The patient symptoms improved and they are okay to be DC. Condition at Discharge: Stable Final Diagnosis/Problems List Acute on chronic respiratory failure O2 dependent non compliant COPD exacerbation Bipolar Hyponatremia Discharge Disposition: Home Discharge Instruct/Medications Diet: Cardiac 2g Na,low cholest Activity: No Restrictions, As Tolerated Scheduled Acetaminophen (Acetaminophen), 500 MG PO Q4HPRN Baclofen (Baclofen), 1 TAB PO TID Benztropine Mesylate (Benztropine Mesylate), 1 MG PO BID, (Reported) Desmopressin Acetate (Ddavp Nasal), 1 SPR TONY DAILY Divalproex Sodium (Divalproex Sodium), 500 MG PO BID, (Reported) Doxycycline (Monohydrate) (Doxycycline), 100 MG PO BID Fosfomycin Tromethamine (Fosfomycin Tromethamine), 3 GM PO ONCE Haloperidol (Haldol), 3 MG PO BID, (Reported) Ibuprofen (Ibuprofen), 1 TAB PO TID Nitrofurantoin Monohydrate Mac (Macrobid), 100 MG PO BID Pantoprazole Sodium Sesquihydr (Protonix), 40 MG PO DAILY, (Reported) Trazodone Hcl (Trazodone Hcl), 75 MG PO HS, (Reported) Scheduled PRN Acetaminophen (Acetaminophen), 325 MG PO Q6HR PRN Acetaminophen (Acetaminophen), 500 MG PO Q4HP PRN Albuterol Sulfate (Albuterol Sulfate Hfa), 108 MCG IN Q4HP PRN Ibuprofen (Ibuprofen), 1 TAB PO Q6HP PRN Lorazepam (Ativan Tablet), 0.5 MG PO Q4HPRN PRN for ANXIETY, (Reported) Olanzapine (Olanzapine), 10 MG PO [id number] PRN Miscellaneous Medications Albuterol Sulfate (Albuterol Sulfate (5 mg/ml) 0.5%), 1 NEB IN, (Reported) Cyclobenzaprine Hcl (Cyclobenzaprine Hcl), 10 MG PO, (Reported) Midodrine HCl (Midodrine HCl), 10 MG, (Reported) Discontinued Medications Levofloxacin Hemihydrate (Levofloxacin), 750 MG PO DAILY Nitrofurantoin (Nitrofurantoin), 100 MG PO BID Ondansetron Odt 4MG Tab (Zofran Po), 4 MG PO TIDPRN PRN Discharge Statement: "Patient was advised to return to the ER or call 911 if any headaches, dizziness, shortness of breath, chest pain, abdominal pain, bleeding, fevers, or worsening of medical condition. Patient was counseled about treatment plan, medications, possible side effects, patientverbalized understanding. All questions were answered to the best of my ability. This discharge took greater then 30 minutes in planning, reviewing documentation, counseling the patient, and discussing with other team members." ASSESSMENT ASSESSMENT Assessment COPD exacerbation JOYA PLATT NP May 13, 2025 20:25
[2025-05-13] MEDS ORDERED: HALOPERIDOL 1 MG TAB PO SCH (22:00)
--- NOTE | 2025-05-13 23:46 | DVHPN2 ---
Progress Note - Dictate Date Seen: May 13, 2025 Medical Necessity Reason Pt with a Central, PICC or Fol: No Subjective Patient seen and examined at bedside. Remains on supplemental oxygen Overnight events reviewed. vital signs Vital Sign Date Time Temp Pulse Resp B/P (MAP) Pulse Ox O2 Delivery O2 Flow Rate FiO2 05/13/25 17:00 98.8 51 18 130/82 (98) 96 98.8 05/13/25 11:32 Nasal Cannula 3.0 05/13/25 11:32 32 Total Intake and Output 05/12/25 05/12/25 05/13/25 15:00 23:00 07:00 Intake Total 740 ml 800 ml Output Total 650 ml Balance 740 ml 150 ml medications Current Medications Medications Dose Ordered Sig/Elaine Route Start Time Stop Time Status Last Admin Dose Admin Haloperidol 3 mg BID PO 05/13/25 13:30 UNV objective Gen.: Patient lying in bed in no apparent distress. On supplemental oxygen. Head: Normocephalic, atraumatic. Eyes: EOMI/PERRLA. Ears: Normal hearing. Normal anatomy. Neck/trachea: Trachea midline, supple. Nose: Normal external anatomy. Mouth: Moist mucous membranes. Chest: Decreased air entry bilaterally. No wheezing or rhonchi. Cardiovascular: Positive S1, positive S2. Regular rate and rhythm. Abdomen: Positive bowel sounds in all 4 quadrants. Soft, non-tender, non- distended. : Deferred. Rectal: Deferred. Skin: Warm, dry. Intact. Extremities: 2+ radial pulses bilaterally. No lower extremity edema. Neuro: Awake, alert, oriented x2. No gross motor or sensory deficits. Cranial nerves II through XII intact. Gait not assessed. laboratory and microbiology Laboratory Tests 05/12/25 06:00 Test 05/12/25 06:00 Range/Units Serum Glucose 89 74-106 mg/dL Assessment/Plan Impression: Acute hypoxic respiratory failure Acute COPD exacerbation Dependence on supplemental oxygen Atelectasis Nicotine dependence Bipolar disorder Schizophrenia Events: Remains on supplemental oxygen Currently on 3 LPM NC Taper O2 as tolerated Sitter at bedside for safety. Continue bronchodilators q.6 hours [place] scheduled Pulmicort BID Continue steroids Continue antibiotics Incentive spirometry Patient is stable for discharge from the pulmonary standpoint Labs and imaging reviewed. Rest of plan as noted below. Plan: Supplemental oxygen Titrate to keep O2 sats above 92%. CXR on 05/11/25 demonstrated interstitial opacities, right greater than left. Continue bronchodilators. Continue antibiotics Continue steroids Incentive spirometry Monitor renal function. Monitor electrolytes. Supplement as necessary. Monitor ins and outs. Smoking cessation discussed greater than 10 minutes DVT prophylaxis. Prognosis: Guarded given patient's multiple co-morbidities. Rest of plan per hospitalist and other consultants. Thank you, EZ Tatum, for allowing me to participate in this patient's care. Further recommendations will depend on the patient's clinical course. Please do not hesitate to contact me if you have any questions or concerns. This medical document was created using an electronic medical record system with [employer] dictation system. Although these documentations are being carefully reviewed, there may still be some phonetic and typographical changes. The errors are purely typographical, due to imperfection on the software program, and do not reflect any compromise in the patient's medical care. Plan discussed with: Patient, Other (SIL Mendoza) BRITANY MEDRANO MD May 13, 2025 23:46
[2025-05-14] MEDS ORDERED: DESMOPRESSIN ACET 0.01% 5ML NASAL SPRY SCH (10:00)
== END 2025-05-13 17:30 | disposition home or self-care (01) | DRG 140 ==
LOC: EDBD 10:19 → ER 10:19 → OVERFLOW 12:09 → TELE-EAST 21:14
PROVIDERS: ADMIT Nurse Practitioner; ATTEND Nurse Practitioner
DX: J44.1 Chronic obstructive pulmonary disease with (acute) exacerbation (principal); J96.21 Acute and chronic respiratory failure with hypoxia; R65.11 Systemic inflammatory response syndrome (SIRS) of non-infectious origin with acute organ dysfunction; Z99.81 Dependence on supplemental oxygen; E87.1 Hypo-osmolality and hyponatremia; F20.9 Schizophrenia, unspecified; I10 Essential (primary) hypertension; F31.9 Bipolar disorder, unspecified; J98.11 Atelectasis; F17.210 Nicotine dependence, cigarettes, uncomplicated; J98.4 Other disorders of lung; K80.20 Calculus of gallbladder without cholecystitis without obstruction; F41.9 Anxiety disorder, unspecified; Z91.199 Patient's noncompliance with other medical treatment and regimen due to unspecified reason; Z91.011 Allergy to milk products; Z88.1 Allergy status to other antibiotic agents; Z82.5 Family history of asthma and other chronic lower respiratory diseases; Z81.8 Family history of other mental and behavioral disorders
CPT/HCPCS: 36415; 71045; 80048; 80053; 81001; 85025; 86803; 87081; 87340; 93005; 94640; 96365; 96375; 99291; 99292; G0378; J1956; J3490

== ENCOUNTER 2025-05-14 21:28 | Inpatient (IN) | payer OTHER ==
[~2025-05-14] VITALS: Ht 167.6 cm; Wt 49.8 kg
[~2025-05-14 21:28] MED LIST changes: +ALBU108A5 IN; +DOXY1CAP58 PO
--- NOTE | 2025-05-14 21:44 | ED.PDOC ---
SOB-HPI HPI Comments 55-year-old female came to ER via EMS for shortness a breath. Patient was just discharged here yesterday diagnosed with 1. Acute on chronic respiratory failure, 2. O2 dependent non compliant, 3. COPD exacerbation, 4. Bipolar, 5. Hyponatremia. Patient [facility], where after having dinner, started having shortness a breath, progressively worsening. Patient is saturating 60% in room air upon arrival. Patient was placed on CPAP while EN route to the ER. Chief Complaint: Shortness a breath Time Seen by MD: 21:38 Primary Care Provider: UNKNOWN Information Source: Patient Severity: Moderate Timing: Hours Duration: Since onset Context: With Light Exertion History of: COPD Past Medical History PAST MEDICAL HISTORY: COPD, Gallstones, Schizophrenia, UTI'S Surgical History: Denies all surgeries CAMELID FIBER SORTER History: Denies all CAMELID FIBER SORTER Hx Family History Family History: Reviewed,noncontributory to illness Social History Smoker: Quit Less Than 1 Year, Cigarettes Alcohol: Denies ETOH Use Drugs: Denies Drug Use Lives In: Assisted Care Constitutional: denies: chills, diaphoresis, fatigue, fever, malaise, sweats, weakness, others EENTM: denies: blurred vision, double vision, ear bleeding, ear discharge, ear drainage, ear pain, ear ringing, eye pain, eye redness, hearing loss, mouth pain, mouth swelling, nasal discharge, nose bleeding, nose congestion, nose pain, photophobia, tearing, throat pain, throat swelling, voice changes, others Respiratory: reports: shortness of breath, SOB with excertion; denies: cough, hemoptysis, orthopnea, SOB at rest, stridor, wheezing, others Cardiovascular: reports: chest pain; denies: dizzy spells, diaphoresis, Dyspnea on exertion, edema, irregular heart beat, left arm pain, lightheadedness, palpitations, PND, syncope, others Gastrointestinal: denies: abdomen distended, abdominal pain, blood streaked bowels, constipated, diarrhea, dysphagia, difficulty swallowing, hematemesis, melena, nausea, poor appetite, poor fluid intake, rectal bleeding, rectal pain, vomiting, others Genitourinary: denies: abnormal vagina bleeding, burning, dyspareunia, dysuria, flank pain, frequency, hematuria, incontinence, pain, , vagina discharge, urgency, others Neurological: denies: dizziness, fainting, headache, left sided numbness, left sided weakness, numbness, paresthesia, pre-existing deficit, right sided numb ness, right sided weakness, seizure, speech problems, tingling, tremors, weakness, others Musculoskeletal: denies: back pain, gout, joint pain, joint swelling, muscle pain, muscle stiffness, neck pain, others Integumetry: denies: bruises, change in color, change in hair/nails, dryness, laceration, lesions, lumps, rash, wounds, others Allergic/Immunocompromised: denies: Difficulty Healing, Frequent Infections, Hives, Itching, others Hematologic/Lymphatic: denies: anemia, blood clots, easy bleeding, easy bruising, swollen glands, others Endocrine: denies: excessive hunger, excessive sweating, excessive thirst, excessive urination, flushing, intolerance to cold, intolerance to heat, unexplained weight gain, unexplained weight loss, others Psychiatric: denies: anxiety, bipolar disorder, depression, hopeless, panic disorder, schizophrenia, sleepless, suicidal, others Physical Exam General Appearance: No Apparent Distress, Normal HEENT: Normal ENT Inspection, Pharynx Normal, TMs Normal Neck: Full Range of Motion, Non-Tender, Normal, Normal Inspection Respiratory: Chest Non-Tender, Lungs Clear, No Accessory Muscle Use, No Respiratory Distress, Normal Breath Sounds Cardiovascular: No Edema, No JVD, No Murmur, No Gallop, Normal Peripheral Pulses, Regular Rate/Rhythm Breast Exam: Deferred Gastrointestinal: No Organomegaly, Non Tender, No Pulsatile Mass, Normal Bowel Sounds, Soft Genitalia: Deferred Pelvic: Deferred Rectal: Deferred Extremities: No calf tenderness, Normal capillary refill, Normal inspection, Normal range of motion, Non-tender, No pedal edema Musculoskeletal : Apperance: Normal Neurologic: Alert, fire prevention chief II-XII 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 Was a procedure done?: No Differential Dx Differential Diagnosis: Anxiety, Asthma, CHF, COPD, Pneumonia, Respiratory Distress X-Ray, Labs, Meds, VS Vital Signs Date Time Temp Pulse Resp B/P (MAP) Pulse Ox O2 Delivery O2 Flow Rate FiO2 8/30/25 00:00 90 20 122/71 (88) 96 05/15/25 00:00 90 05/14/25 21:55 20 95 Nasal Cannula* 2 05/14/25 21:36 89 05/14/25 21:30 97.9 88 20 132/75 (94) 98 97.9 05/14/25 21:30 Nasal Cannula* 2 05/14/25 21:28 98.3 94 24 116/78 97 98.3 Lab Test 05/15/25 00:25 05/14/25 21:40 Range/Units Troponin I High Sensitivity 9 10 </=34 ng/L White Blood Count 4.4 # 4.4-10.8 10^3/uL Red Blood Count 4.58 4.0-5.20 10^6/uL Hemoglobin 14.7 12.2-16.2 g/dL Hematocrit 43.3 36.0-46.0 % Mean Corpuscular Volume 94.6 80.0-100.0 fL Mean Corpuscular Hemoglobin 32.2 H 28.0-32.0 pg Mean Corpuscular Hemoglobin Concent 34.0 32.0-36.0 g/dL Red Cell Distribution Width 14.9 H 11.8-14.3 % Platelet Count 203 140-450 10^3/uL Mean Platelet Volume 7.6 6.9-10.8 fL Neutrophils (%) (Auto) 46.6 37.0-80.0 % Lymphocytes (%) (Auto) 36.8 10.0-50.0 % Monocytes (%) (Auto) 14.4 H 0.0-12.0 % Eosinophils (%) (Auto) 1.6 0.0-7.0 % Basophils (%) (Auto) 0.6 0.0-2.0 % Neutrophils # (Auto) 2.0 1.6-8.6 10 ^3/uL Lymphocytes # (Auto) 1.6 0.4-5.4 10 ^3/uL Monocytes # (Auto) 0.6 0-1.3 10 ^3/uL Eosinophils # (Auto) 0.1 0-0.8 10 ^3/uL Basophils # (Auto) 0 0-0.2 10 ^3/uL Nucleated Red Blood Cells 0.0 % Blood Gas Specimen Type Venous Blood Gas Sample Site Vbg - n/a Blood Gas Patient Temperature 37.0 Arterial Blood Date Drawn [id number] Clay Test N/a Venous Blood pH 7.367 7.320-7.430 Venous Blood pCO2 at Patient Temp 58.6 *H 38.0-54.0 mmHg Venous Blood pO2 at Patient Temp 53.1 H 23.0-48.0 mmHg Venous Blood HCO3 32.9 H 22.0-29.0 mmol/L Venous Blood Base Excess 5.6 H -2.0-3.0 mmol/L Blood Gas Liter Flow 3.00 Blood Gas Modality Nasal cannula FiO2 % 32.0 Blood Gas Critical Value Read Back Yes Blood Gas Notified Whom nyasia Cintron Blood Gas Notified Time [id number] Blood Gas Notified By Sabine oneil rrt Sodium Level 137 # 136-145 mmol/L Potassium Level 4.2 3.5-5.1 mmol/L Chloride Level 101 # 98-107 mmol/L Carbon Dioxide Level 33 H 20-31 mmol/L Anion Gap 3 L 5-15 Blood Urea Nitrogen 6 L 9-23 mg/dL Creatinine 0.54 L 0.550-1.02 mg/dL Glomerular Filtration Rate Calc 108 >90 mL/min BUN/Creatinine Ratio 11.1 10.0-20.0 Serum Glucose 99 74-106 mg/dL Calcium Level 9.2 8.7-10.4 mg/dL Total Bilirubin 0.3 0.2-1.0 mg/dL Aspartate Amino Transferase (AST) 11 L 13-40 U/L Alanine Aminotransferase (ALT) 10 7-40 U/L Alkaline Phosphatase 69 46-116 U/L B-Type Natriuretic Peptide 405.15 0-100 pg/mL Total Protein 5.8 5.7-8.2 g/dL Albumin 3.9 3.2-4.8 g/dL Current Medications Medications (Trade) Dose Ordered Sig/Elaine Route Start Time Stop Time Status Last Admin Albuterol (Ventolin Medneb) 5 mg ONCE ONCE NEB 05/14/25 21:45 05/14/25 21:46 DC 05/14/25 21:53 Ipratropium [place] (Atrovent Medneb) 0.5 mg ONCE ONCE NEB 05/14/25 21:45 05/14/25 21:46 DC 05/14/25 21:54 Prednisone 40 mg ONCE ONCE PO 05/14/25 21:45 05/14/25 21:46 DC 05/14/25 21:50 Time of 1ST Reevaluation: 21:44 Reevaluation 1ST: Unchanged Patient Education/Counseling: Diagnosis, Treatment Family Education/Counseling: No Family Present SEPSIS Sepsis Screen Physician Orders Chest Portable (05/14/25 21:32) Electrocardigram (05/14/25 21:32) Venous Blood Gas (05/14/25 21:32) Vital Signs Date Time Temp Pulse Resp B/P (MAP) Pulse Ox O2 Delivery O2 Flow Rate FiO2 05/15/25 00:00 90 20 122/71 (88) 96 05/15/25 00:00 90 05/14/25 21:55 20 95 Nasal Cannula* 2 05/14/25 21:36 89 05/14/25 21:30 97.9 88 20 132/75 (94) 98 97.9 05/14/25 21:30 Nasal Cannula* 2 28 05/14/25 21:28 98.3 94 24 116/78 97 98.3 Laboratory Tests Test 05/14/25 21:40 White Blood Count 4.4 10^3/uL (4.4-10.8) # Medications Medications Dose Ordered Sig/Elaine Route Start Time Stop Time Status Last Admin Dose Admin Albuterol 5 mg ONCE ONCE NEB 05/14/25 21:45 05/14/25 21:46 DC 05/14/25 21:53 Ipratropium [place] 0.5 mg ONCE ONCE NEB 05/14/25 21:45 05/14/25 21:46 DC 05/14/25 21:54 Prednisone 40 mg ONCE ONCE PO 05/14/25 21:45 05/14/25 21:46 DC 05/14/25 21:50 Departure 1 Departure Time of Disposition: 03:50 Impression: Primary Impression: Acute hypoxic respiratory failure Additional Impressions: History of schizophrenia COPD with acute exacerbation Disposition: 09 ADMITTED INPATIENT Admit to: Med Surg Condition: Guarded e-Prescriptions Prednisone (Prednisone) 20 Mg Tab 20 MG PO BID for 5 Days, #10 TAB Prov: MANDY OJEDA MD 05/15/25 Albuterol Sulfate (Albuterol Sulfate Hfa) 108 Mcg/Act Aer 108 MCG IN Q6HP PRN, #1 AER 5 Refills Prov: MANDY OJEDA MD 05/15/25 Albuterol Sulfate (Albuterol Sulfate) 0.083 % Neb 1 VIAL NEB Q4HPRN PRN, #50 VIAL 5 Refills Prov: MANDY OJEDA MD 05/15/25 Discharged With: Self Comments 55-year-old female with a history of COPD now came in with shortness of breath. Patient was given breathing treatments and Solu-Medrol. Patient has stated that she felt better. We took her off oxygen and her oxygen saturation fell to the 70s and 80s. Patient will need to be admitted for COPD exacerbation and respiratory failure with hypoxia Critical Care Note Critical Care Time?: Yes (35 min-critical care time only) Critical care comment: Total critical care time: Approximately 36 minutes Due to a high probability of clinically significant, life threatening deterioration, the patient required my highest level of preparedness to intervene emergently and I personally spent this critical care time directly and personally managing the patient. This critical care time included obtaining a history; examining the patient; pulse oximetry; ordering and review of studies; arranging urgent treatment with development of a management plan; evaluation of patient's response to treatment; frequent reassessment; and, discussions with other providers. This critical care time was performed to assess and manage the high probability of imminent, life-threatening deterioration that could result in multi-organ failure. It was exclusive of separately billable procedures and treating other patients. Stability Stability form required: No Heart Score Heart Score: Heart Score Response (Comments) Value History N/A 0 EKG N/A 0 Age N/A 0 Risk Factors N/A 0 Troponin N/A 0 Total 0 I personally scribed for MANDY OJEDA MD ([email or web address]) on 05/14/25 at 21:44. Electronically submitted by Evelio Caceres ([email or web address]). MANDY OJEDA MD May 14, 2025 21:44
[2025-05-14] MEDS: predniSONE 20 MG TAB PO ONE (21:50)
[2025-05-14 21:53] LABS: Hematocrit 43.3 % (36.0-46.0); Hemoglobin 14.7 g/dL (12.2-16.2); Mean Corpuscular Hemoglobin 32.2 pg (28.0-32.0); Mean Corpuscular Volume 94.6 fL (80.0-100.0); Nucleated Red Blood Cells % 0.0 %
[2025-05-14] MEDS: ALBUTEROL SULF 2.5 MG/0.5ML(0.5%) NEB SOLN NEB ONE (21:53)
[2025-05-14] MEDS: IPRATROPIUM BROM 0.5 MG/2.5ML INH SOL NEB ONE (21:54)
[2025-05-14 22:08] LABS: Alanine Aminotransferase 10 U/L (7-40); Albumin 3.9 g/dL (3.2-4.8); Alkaline Phosphatase 69 U/L (46-116); Anion Gap 3 (5-15); BUN/Creatinine Ratio 11.1 (10.0-20.0); Bilirubin, Total 0.3 mg/dL (0.2-1.0); Calcium 9.2 mg/dL (8.7-10.4); Chloride 101 mmol/L (98-107); Glucose 99 mg/dL (74-106); Potassium 4.2 mmol/L (3.5-5.1); Sodium 137 mmol/L (136-145); Total Protein 5.8 g/dL (5.7-8.2)
[2025-05-14 22:09] LABS: Blood Urea Nitrogen 6 mg/dL (9-23); Carbon Dioxide 33 mmol/L (20-31)
--- NOTE | 2025-05-14 23:31 | DVH ---
EXAM: XY CHEST PORTABLE CLINICAL HISTORY: sob TECHNIQUE: Single AP view of the chest WID: COMPARISON: XY CHEST PORTABLE on DOS: 05/11/25 FINDINGS: Lines and tubes: None Chest: The heart size and pulmonary vasculature is within normal limits. Prominence of the main pulmonary ar sarah. Hyperexpansion of the lungs. Relative lucency of the upper lungs, more pronounced on the right. The osseous structures are grossly intact. IMPRESSION: 1. No acute cardiopulmonary abnormality. 2. Hyperexpansion of the lungs and relative lucency of the upper lungs, greater on the right which ca n be due to cOPD/emphysema. 3. Prominence of the main pulmonary artery which can be seen in the setting of pulmonary hypertension .
[2025-05-15] VITALS (11 sets, daily range): BP systolic 115–134; BP diastolic 62–86; PULSE 78–97; RESP 18–22; TEMP 97.2–97.8; O2SAT 93–99
[2025-05-15] MEDS ORDERED: ALBU0.084 NEB ×2 (00:49)
[2025-05-15] MEDS ORDERED: ALBU108A5 IN ×2 (00:49)
[2025-05-15] MEDS ORDERED: PRED20TA2 PO ×2 (00:49)
[2025-05-15] MEDS ORDERED: NITROGLYCERIN 0.4 MG SL TAB SL PRN (11:15)
[2025-05-15] MEDS ORDERED: TEMAZEPAM 15 MG CAP PO PRN (11:15)
[2025-05-15] MEDS ORDERED: MORPHINE SULFATE INJ 2 MG/ml SYRG IV PRN ×2 (11:15)
[2025-05-15] MEDS ORDERED: ONDANSETRON HCL 4 MG/2 ML VIAL IV PRN (11:15)
[2025-05-15] MEDS: ALBUTEROL SULF 2.5 MG/0.5ML(0.5%) NEB SOLN NEB SCH (12:28)
[2025-05-15] MEDS: IPRATROPIUM BROM 0.5 MG/2.5ML INH SOL NEB SCH (12:28)
[2025-05-15] MEDS: methylPREDNISolone SOD SUCC 125 MG/2 ML VL IV SCH (12:34)
[2025-05-15] MEDS: DOXYCYCLINE 100MG/100ML 100 ML IV ONE (12:34)
[2025-05-15] MEDS: OLANZapine 5 MG TAB PO PRN (15:46)
--- NOTE | 2025-05-15 16:00 | DVHHP2 ---
History of Present Illness History of Present Illness Silvia White is a 55-year-old female with a history of COPD and bipolar disorder presenting to the emergency room with shortness of breath. The patient was recently discharged from the hospital two days ago following a COPD exacerbation.Upon discharge, Ms. White was transferred to [facility]. However, she developed shortness of breath shortly after. Despite being prescribed home oxygen, the patient is now compliant with this treatment. Her current oxygen saturation is 60% on room air, indicating acute hypoxic respiratory failure due to COPD exacerbation. Review of Systems Constitutional: No: Fever, Chills, Sweats, Weakness, Malaise, Other Respiratory: Dry Gastrointestinal: No: Nausea, Vomiting, Abdominal Pain, Diarrhea, Constipation, Melena, Hematochezia, Other Allergies: Coded Allergies: Lactose (Verified Allergy, Severe, 11/15/24) Azithromycin (Verified Allergy, Unknown, 05/11/25) Medications Current Medications Medications Dose Ordered Sig/Elaine Route Start Time Stop Time Status Last Admin Dose Admin Temazepam 15 mg QHSP PRN PO 05/15/25 11:15 Ondansetron HCl 4 mg Q4HP PRN IV 05/15/25 11:15 Enoxaparin Sodium 40 mg DAILY SC 05/16/25 10:00 Acetaminophen 650 mg Q6HP PRN PO 05/15/25 11:15 Morphine Sulfate 2 mg Q4HPRN PRN IV 05/15/25 11:15 Nitroglycerin 0.4 mg Q5MINP PRN SL 05/15/25 11:15 Morphine Sulfate 2 mg Q30M PRN IV 05/15/25 11:15 Albuterol 2.5 mg Q4HWA NEB 05/15/25 14:00 05/15/25 12:28 2.5 MG Ipratropium [place] 0.5 mg Q4HWA NEB 05/15/25 14:00 05/15/25 12:28 0.5 MG Budesonide 0.5 mg BID NEB 05/15/25 22:00 Doxycycline Hyclate 100 ml @ 50 mls/hr Q12HR IV 05/15/25 22:00 Methylprednisolone Sodium Succinate 60 mg Q6HR IV 05/15/25 12:00 Haloperidol 3 mg BID PO 05/15/25 22:00 Olanzapine 10 mg [id number] PRN PO 05/15/25 11:15 Pantoprazole Sodium 40 mg DAILY PO 05/16/25 10:00 Trazodone HCl 75 mg HS PO 05/15/25 22:00 Divalproex Sodium 500 mg BID PO 05/15/25 22:00 Future hold Exam Vital Signs Vital Signs Date Time Temp Pulse Resp B/P (MAP) Pulse Ox O2 Delivery O2 Flow Rate FiO2 05/15/25 12:37 93 18 98 05/15/25 12:29 Nasal Cannula* 2 28 05/15/25 11:34 97.8 134/86 97.8 General Appearance: Alert, Oriented X3, Cooperative Respiratory: Other (diminished ) Cardiovascular: Regular rate, Normal S1, Normal S2, No murmurs Abdominal: Normal bowel sounds, Soft, No tenderness Extremities: No clubbing Labs/Xrays Labs Test 05/15/25 00:25 05/14/25 21:40 Range/Units Troponin I High Sensitivity 9 </=34 ng/L White Blood Count 4.4 # 4.4-10.8 10^3/uL Red Blood Count 4.58 4.0-5.20 10^6/uL Hemoglobin 14.7 12.2-16.2 g/dL Hematocrit 43.3 36.0-46.0 % Mean Corpuscular Volume 94.6 80.0-100.0 fL Mean Corpuscular Hemoglobin 32.2 H 28.0-32.0 pg Mean Corpuscular Hemoglobin Concent 34.0 32.0-36.0 g/dL Red Cell Distribution Width 14.9 H 11.8-14.3 % Platelet Count 203 140-450 10^3/uL Mean Platelet Volume 7.6 6.9-10.8 fL Neutrophils (%) (Auto) 46.6 37.0-80.0 % Lymphocytes (%) (Auto) 36.8 10.0-50.0 % Monocytes (%) (Auto) 14.4 H 0.0-12.0 % Eosinophils (%) (Auto) 1.6 0.0-7.0 % Basophils (%) (Auto) 0.6 0.0-2.0 % Neutrophils # (Auto) 2.0 1.6-8.6 10 ^3/uL Lymphocytes # (Auto) 1.6 0.4-5.4 10 ^3/uL Monocytes # (Auto) 0.6 0-1.3 10 ^3/uL Eosinophils # (Auto) 0.1 0-0.8 10 ^3/uL Basophils # (Auto) 0 0-0.2 10 ^3/uL Nucleated Red Blood Cells 0.0 % Blood Gas Specimen Type Venous Blood Gas Sample Site Vbg - n/a Blood Gas Patient Temperature 37.0 Arterial Blood Date Drawn [id number] Clay Test N/a Venous Blood pH 7.367 7.320-7.430 Venous Blood pCO2 at Patient Temp 58.6 *H 38.0-54.0 mmHg Venous Blood pO2 at Patient Temp 53.1 H 23.0-48.0 mmHg Venous Blood HCO3 32.9 H 22.0-29.0 mmol/L Venous Blood Base Excess 5.6 H -2.0-3.0 mmol/L Blood Gas Liter Flow 3.00 Blood Gas Modality Nasal cannula FiO2 % 32.0 Blood Gas Critical Value Read Back Yes Blood Gas Notified Whom nyasia Cintron Blood Gas Notified Time [id number] Blood Gas Notified By Sabine oneil rrt Sodium Level 137 # 136-145 mmol/L Potassium Level 4.2 3.5-5.1 mmol/L Chloride Level 101 # 98-107 mmol/L Carbon Dioxide Level 33 H 20-31 mmol/L Anion Gap 3 L 5-15 Blood Urea Nitrogen 6 L 9-23 mg/dL Creatinine 0.54 L 0.550-1.02 mg/dL Glomerular Filtration Rate Calc 108 >90 mL/min BUN/Creatinine Ratio 11.1 10.0-20.0 Serum Glucose 99 74-106 mg/dL Calcium Level 9.2 8.7-10.4 mg/dL Total Bilirubin 0.3 0.2-1.0 mg/dL Aspartate Amino Transferase (AST) 11 L 13-40 U/L Alanine Aminotransferase (ALT) 10 7-40 U/L Alkaline Phosphatase 69 46-116 U/L B-Type Natriuretic Peptide 405.15 0-100 pg/mL Total Protein 5.8 5.7-8.2 g/dL Albumin 3.9 3.2-4.8 g/dL SEPSIS Sepsis Screen Date sepsis recognized/suspect: May 14, 2025 Time Sepsis recognized/suspect: 2127 Recent Procedure: No On Antibiotic Therapy: No Respiratory Rate >20: No Heart Rate >90: No Temp<36 C (96.8 F) or >38.3 C: No SBP <90 or MAP <65 mmHG: No New Acute Mental Status Change: No Is the patient on CPAP, BIPAP,: No Physician Orders Admit (05/15/25 11:10) Allergies (05/15/25 11:10) Temazepam (Restoril) (05/15/25 11:15) Ondansetron Hcl (Zofran) (05/15/25 11:15) Enoxaparin Sodium (Lovenox) (05/16/25 10:00) Cardiac Diet-2gna,Lofat,Lochol (05/15/25 Lunch) Condition: Fair (05/15/25 11:10) Acetaminophen Tablet (Tylenol Tablet) (05/15/25 11:15) Morphine Sulfate Injection (05/15/25 11:15) Nitroglycerin Sublingual (Ntrostat Subli (05/15/25 11:15) Morphine Sulfate Injection (05/15/25 11:15) Stat Ekg For Chest Pain (05/15/25 11:10) Notify Md Of Changes From Base (05/15/25 11:10) Installation Engineer For 24 Hours (05/15/25 11:10) Emergency Dysrhythmia Protocol (05/15/25 11:10) Rhythm Strips Once Every Shift (05/15/25 11:10) Oxygen By Nasal Cannula (05/15/25 11:10) Albuterol Medneb (Ventolin Medneb) (05/15/25 14:00) Ipratropium Medneb (Atrovent Medneb) (05/15/25 14:00) Budesonide (Inhalation) (Pulmicort) (05/15/25 22:00) Doxycycline 100mg/100ml (Vibramycin) (05/15/25 22:00) Methylprednisolone Sod Succ (Solu Medrol (05/15/25 12:00) *Consult / (05/15/25 11:14) Haloperidol Tablet (Haldol Tablet) (05/15/25 22:00) Olanzapine Tablet (Zyprexa Tablet) (05/15/25 11:15) Pantoprazole Tablet (Protonix Tablet) (05/16/25 10:00) Trazodone Hcl (Desyrel) (05/15/25 22:00) Divalproex Dr Tablet (Depakote "Dr" Tabl (05/15/25 22:00) Vital Signs Date Time Temp Pulse Resp B/P (MAP) Pulse Ox O2 Delivery O2 Flow Rate FiO2 05/15/25 12:37 93 18 98 05/15/25 12:29 95 Nasal Cannula* 2 28 05/15/25 12:29 97 18 95 05/15/25 12:28 95 Nasal Cannula 2.0 05/15/25 11:34 97.8 88 18 134/86 95 2.0 28 97.8 05/15/25 09:54 97.8 91 16 134/86 (102) 96 97.8 Medications Medications Dose Ordered Sig/Elaine Route Start Time Stop Time Status Last Admin Dose Admin Albuterol 2.5 mg Q4HWA NEB 05/15/25 14:00 05/15/25 12:28 2.5 MG Ipratropium [place] 0.5 mg Q4HWA NEB 05/15/25 14:00 05/15/25 12:28 0.5 MG Assessment/Plan Assessment/Plan 55-year-old female with history of COPD and bipolar disorder presents to the emergency room with shortness of breath, recently discharged 2 days ago for COPD exacerbation. Acute chronic hypoxic respiratory failure due to COPD exacerbation Assessment: Patient presents with shortness of breath and hypoxia (60% oxygen saturation on room air) following recent discharge 2 days ago for COPD exacerbation. Patient is now compliant with prescribed home oxygen therapy. Given the rapid recurrence of symptoms and severe hypoxia, this represents an acute exacerbation of COPD leading to hypoxic respiratory failure. Plan: - Admit patient for management of acute hypoxic respiratory failure - Initiate MedMed treatments - Start IV antibiotics - Consult pulmonology service - Continue home medications - Initiate DVT prophylaxis - Continue oxygen therapy - Oxygen dependent, continue with home oxygen Bipolar disorder Assessment: Patient has a history of bipolar disorder. Patient is now compliant with treatment regimen. 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 Procedure Category Date Status Time Admit ADMIT 05/15/25 Transmitted 11:10 Allergies AMINATA 05/15/25 In Process 11:10 Temazepam (Restoril) PHA 05/15/25 In Process 11:15 Ondansetron Hcl PHA 05/15/25 In Process (Zofran) 11:15 Enoxaparin Sodium PHA 05/16/25 In Process (Lovenox) 10:00 Cardiac DIET 05/15/25 Transmitted Diet-2gna,Lofat,Lochol Lunch Condition: Fair AMINATA 05/15/25 In Process 11:10 Acetaminophen Tablet PHA 05/15/25 In Process (Tylenol Tablet) 11:15 Morphine Sulfate PHA 05/15/25 In Process Injection 11:15 Nitroglycerin PHA 05/15/25 In Process Sublingual (Ntrostat 11:15 Morphine Sulfate PHA 05/15/25 In Process Injection 11:15 Stat Ekg For Chest AMINATA 05/15/25 In Process Pain 11:10 Notify Md Of Changes AMINATA 05/15/25 In Process From Base 11:10 Installation Engineer For AMINATA 05/15/25 In Process 24 Hours 11:10 Emergency Dysrhythmia AMINATA 05/15/25 In Process Protocol 11:10 Rhythm Strips Once AMINATA 05/15/25 In Process Every Shift 11:10 Oxygen By Nasal RT 05/15/25 Transmitted Cannula 11:10 Albuterol Medneb PHA 05/15/25 In Process (Ventolin Medneb) 14:00 Ipratropium Medneb PHA 05/15/25 In Process (Atrovent Medneb) 14:00 Budesonide PHA 05/15/25 In Process (Inhalation) 22:00 Doxycycline PHA 05/15/25 In Process 100mg/100ml 22:00 Methylprednisolone PHA 05/15/25 In Process Sod Succ (Solu Medrol 12:00 *Consult CONS 05/15/25 Transmitted / 11:14 Haloperidol Tablet PHA 05/15/25 In Process (Haldol Tablet) 22:00 Olanzapine Tablet PHA 05/15/25 In Process (Zyprexa Tablet) 11:15 Pantoprazole Tablet PHA 05/16/25 In Process (Protonix Tablet) 10:00 Trazodone Hcl PHA 05/15/25 In Process (Desyrel) 22:[address] Tablet PHA 05/15/25 In Process (Depakote "" Tabl 22:00 Date of Service: May 15, 2025 Billing Provider: JAYY MOTA MD Common Visit Codes: [id number] INP/OBS CARE (MOD) RHYS GAMBINO May 15, 2025 16:00
[2025-05-15] MEDS: OLANZapine 5 MG TAB PO ONE (21:30)
[2025-05-15] MEDS: HALOPERIDOL 5 MG TAB PO SCH (21:31)
[2025-05-15] MEDS: DOXYCYCLINE 100MG/100ML 100 ML IV SCH (22:00)
[2025-05-15] MEDS: BUDESONIDE (INHALATION) 0.5 MG/2 ML NEB NEB SCH (22:28)
--- NOTE | 2025-05-15 22:39 | DVHINCON2 ---
Date of service: May 15, 2025 Referring Physician EZ Ghotra. History of Present Illness A a 55-year-old female with a history of COPD and bipolar disorder who presented to ED on 05/14/25 with complaint of shortness of breath. The patient was recently discharged from the hospital 2 days prior following a COPD exacerbation. Upon discharge, Ms. White was transferred to [facility]. However, she developed shortness of breath shortly after. Despite being prescribed home oxygen, the patient is now compliant with this treatment. Her current oxygen saturation is 60% on room air, indicating acute hypoxic respiratory failure due to COPD exacerbation. Patient was admitted for further care and pulmonary consultation is requested for evaluation and management of acute hypoxic respiratory failure Review of Systems: 14-point review of systems negative unless otherwise noted above. Past Medical History: COPD, bipolar disorder, schizophrenia Past Surgical History: None Medications: Reviewed. Allergies: Lactose Azithromycin Family History: COPD Schizophrenia Anxiety disorder Social History: Nonsmoker. No alcohol or illicit drug use. Family History: Anxiety disorder FH: COPD (chronic obstructive pulmonary disease) FH: schizophrenia Allergies: Coded Allergies: Lactose (Verified Allergy, Severe, 11/15/24) Azithromycin (Verified Allergy, Unknown, 05/11/25) Home Meds Active Scripts Prednisone (Prednisone) 20 Mg Tab, 20 MG PO BID for 5 Days, #10 TAB Prov:MANDY OJEDA MD 05/15/25 Albuterol Sulfate (Albuterol Sulfate Hfa) 108 Mcg/Act Aer, 108 MCG IN Q6HP PRN, #1 AER 5 Refills Prov:MANDY OJEDA MD 05/15/25 Albuterol Sulfate (Albuterol Sulfate) 0.083 % Neb, 1 VIAL NEB Q4HPRN PRN, #50 VIAL 5 Refills Prov:MANDY OJEDA MD 05/15/25 Doxycycline (Monohydrate) (Doxycycline) 100 Mg Cap, 100 MG PO BID for 7 Days, #14 CAP Prov:JOYA PLATT NP 05/13/25 Albuterol Sulfate (Albuterol Sulfate Hfa) 108 Mcg/Act Aer, 108 MCG IN Q4HP PRN for 30 Days, #1 AER 2 puffs inhalation Prov:JOYA PLATT NP 05/13/25 Ibuprofen (Ibuprofen) 800 Mg Tab, 1 TAB PO TID, #20 TAB Prov:RAMIRO HANKS 12/10/24 Acetaminophen (Acetaminophen) 500 Mg Tab, 500 MG PO Q4HPRN, #30 TAB 0 Refills Prov:KENTON PARTIDA 11/24/24 Baclofen (Baclofen) 20 Mg Tab, 1 TAB PO TID, #90 TAB 3 Refills Prov:MADHAV CASTRO [employer] 11/03/24 Acetaminophen (Acetaminophen) 500 Mg Tab, 500 MG PO Q4HP PRN, #20 TAB Prov:MAMI ESTRADA PAC 10/31/24 Ibuprofen (Ibuprofen) 600 Mg Tab, 1 TAB PO Q6HP PRN, #20 TAB Prov:MAMI ESTRADA PAC 10/31/24 Nitrofurantoin Monohydrate Mac (Macrobid) 100 Mg Cap, 100 MG PO BID for 7 Days, #14 CAP Prov:ANGELITO REYES MD 10/27/24 Fosfomycin Tromethamine (Fosfomycin Tromethamine) 3 Gm Pow, 3 GM PO ONCE for 1 Day, #1 POW Prov:GURU BROWN MD 10/20/24 Olanzapine (OLANZAPINE) 5 Mg Tab, 10 MG PO [id number] PRN for 30 Days, #120 TAB Prov:TONY THAKKAR 09/29/24 Desmopressin Acetate (Ddavp Nasal) 1 Spr Sp, 1 SPR TONY DAILY for 30 Days, #1 UNIT Prov:TONY THAKKAR 09/29/24 Acetaminophen (Acetaminophen) 160 Mg/5 Ml Polina, 325 MG PO Q6HR PRN for 10 Days, #30 UNIT Prov:TONY THAKKAR 09/29/24 Reported Medications Divalproex Sodium (Divalproex Sodium) 500 Mg Tab, 500 MG PO BID for 30 Days, MG 10/19/24 Midodrine HCl (Midodrine HCl) 10 Mg Tab, 10 MG, TAB 10/19/24 Pantoprazole Sodium Sesquihydr (Protonix) 40 Mg Tab, 40 MG PO DAILY, #30 TAB 10/19/24 Cyclobenzaprine Hcl (Cyclobenzaprine Hcl) 10 Mg Tab, 10 MG PO for 30 Days, MG 10/19/24 Albuterol Sulfate (Albuterol Sulfate (5 mg/ml) 0.5%) 1 Neb Neb, 1 NEB IN, INH 10/19/24 Haloperidol (Haldol) 5 Mg Tb, 3 MG PO BID, MG 03/15/24 Benztropine Mesylate (Benztropine Mesylate) 1 Mg Tab, 1 MG PO BID, MG 03/15/24 Trazodone Hcl (Trazodone Hcl) 50 Mg Tab, 75 MG PO HS, MG 03/15/24 Lorazepam (ATIVAN TABLET) 0.5 Mg Tb, 0.5 MG PO Q4HPRN PRN for ANXIETY, TAB 03/15/24 Discontinued Scripts Nitrofurantoin (Nitrofurantoin) 100 Mg Cap, 100 MG PO BID for 10 Days, #20 CAP Prov:GURU BROWN MD 10/20/24 Levofloxacin Hemihydrate (LEVOFLOXACIN) 750 Mg Tab, 750 MG PO DAILY for 10 Days, #10 TAB Prov:TONY THAKKAR 10/20/24 Ondansetron Odt 4MG Tab (ZOFRAN PO) 4 Mg Tb, 4 MG PO TIDPRN PRN for 7 Days, #21 TAB ODT TAB-DISSOLVE IN MOUTH, THEN SWALLOW Prov:CHRISTAL ABRAHAM MD 07/08/24 Current Medications Current Medications Medications (Trade) Dose Ordered Sig/Elaine Route PRN Reason Start Time Stop Time Status Last Admin Temazepam (Restoril) 15 mg QHSP PRN PO FOR INSOMNIA 05/15/25 11:15 Ondansetron HCl (Zofran) 4 mg Q4HP PRN IV NAUSEA / VOMITING 05/15/25 11:15 Enoxaparin Sodium (Lovenox) 40 mg DAILY SC 05/16/25 10:00 Acetaminophen (Tylenol Tablet) 650 mg Q6HP PRN PO PAIN SCALE 1-3 OR TEMP>100.4 05/15/25 11:15 Morphine Sulfate 2 mg Q4HPRN PRN IV SEVERE PAIN (7-10 PAIN SCALE) 05/15/25 11:15 Nitroglycerin (Ntrostat Sublingual) 0.4 mg Q5MINP PRN SL FOR CHEST PAIN 05/15/25 11:15 Morphine Sulfate 2 mg Q30M PRN IV FOR CHEST PAIN 05/15/25 11:15 Albuterol (Ventolin Medneb) 2.5 mg Q4HWA NEB 05/15/25 14:00 05/15/25 18:59 Ipratropium [place] (Atrovent Medneb) 0.5 mg Q4HWA NEB 05/15/25 14:00 05/15/25 19:00 Budesonide (Pulmicort) 0.5 mg BID NEB 05/15/25 22:00 Azithromycin 250 ml @ 125 mls/hr DAILY IV 05/16/25 10:00 05/15/25 11:58 DC Doxycycline Hyclate 100 ml @ 50 mls/hr Q12HR IV 05/15/25 22:00 Methylprednisolone Sodium Succinate (Solu Medrol) 60 mg Q6HR IV 05/15/25 12:00 05/15/25 18:58 Haloperidol (Haldol Tablet) 3 mg BID PO 05/15/25 22:00 05/15/25 21:31 Olanzapine (ZyPREXA Tablet) 10 mg [id number] PRN PO AGITATION 05/15/25 11:15 05/15/25 15:46 Pantoprazole Sodium (Protonix Tablet) 40 mg DAILY PO 05/16/25 10:00 Trazodone HCl (Desyrel) 75 mg HS PO 05/15/25 22:00 05/15/25 21:31 Divalproex Sodium (Depakote "Dr" Tablet) 500 mg BID PO 05/15/25 22:00 05/15/25 21:31 Vital Signs Vital Signs Date Time Temp Pulse Resp B/P (MAP) Pulse Ox O2 Delivery O2 Flow Rate FiO2 05/15/25 20:01 78 20 97 Nasal Cannula* 2 28 05/15/25 20:01 98.1 120/78 (92) 98.1 Physical Exam Gen.: Patient lying in bed in no apparent distress. On supplemental oxygen. Head: Normocephalic, atraumatic. Eyes: EOMI/PERRLA. Ears: Normal hearing. Normal anatomy. Neck/trachea: Trachea midline, supple. Nose: Normal external anatomy. Mouth: Moist mucous membranes. Chest: Decreased air entry bilaterally. No wheezing or rhonchi. Cardiovascular: Positive S1, positive S2. Regular rate and rhythm. Abdomen: Positive bowel sounds in all 4 quadrants. Soft, non-tender, non- distended. : Deferred. Rectal: Deferred. Skin: Warm, dry. Intact. Extremities: 2+ radial pulses bilaterally. No lower extremity edema. Neuro: Awake, alert, oriented x3. No gross motor or sensory deficits. Cranial nerves II through XII intact. Gait not assessed. Labs/Diagnostic Data Labs Test 05/15/25 00:25 05/14/25 21:40 Range/Units Troponin I High Sensitivity 9 </=34 ng/L White Blood Count 4.4 # 4.4-10.8 10^3/uL Red Blood Count 4.58 4.0-5.20 10^6/uL Hemoglobin 14.7 12.2-16.2 g/dL Hematocrit 43.3 36.0-46.0 % Mean Corpuscular Volume 94.6 80.0-100.0 fL Mean Corpuscular Hemoglobin 32.2 H 28.0-32.0 pg Mean Corpuscular Hemoglobin Concent 34.0 32.0-36.0 g/dL Red Cell Distribution Width 14.9 H 11.8-14.3 % Platelet Count 203 140-450 10^3/uL Mean Platelet Volume 7.6 6.9-10.8 fL Neutrophils (%) (Auto) 46.6 37.0-80.0 % Lymphocytes (%) (Auto) 36.8 10.0-50.0 % Monocytes (%) (Auto) 14.4 H 0.0-12.0 % Eosinophils (%) (Auto) 1.6 0.0-7.0 % Basophils (%) (Auto) 0.6 0.0-2.0 % Neutrophils # (Auto) 2.0 1.6-8.6 10 ^3/uL Lymphocytes # (Auto) 1.6 0.4-5.4 10 ^3/uL Monocytes # (Auto) 0.6 0-1.3 10 ^3/uL Eosinophils # (Auto) 0.1 0-0.8 10 ^3/uL Basophils # (Auto) 0 0-0.2 10 ^3/uL Nucleated Red Blood Cells 0.0 % Blood Gas Specimen Type Venous Blood Gas Sample Site Vbg - n/a Blood Gas Patient Temperature 37.0 Arterial Blood Date Drawn [id number] Clay Test N/a Venous Blood pH 7.367 7.320-7.430 Venous Blood pCO2 at Patient Temp 58.6 *H 38.0-54.0 mmHg Venous Blood pO2 at Patient Temp 53.1 H 23.0-48.0 mmHg Venous Blood HCO3 32.9 H 22.0-29.0 mmol/L Venous Blood Base Excess 5.6 H -2.0-3.0 mmol/L Blood Gas Liter Flow 3.00 Blood Gas Modality Nasal cannula FiO2 % 32.0 Blood Gas Critical Value Read Back Yes Blood Gas Notified Whom nyasia Cintron Blood Gas Notified Time [id number] Blood Gas Notified By Sabine oneil, delores Sodium Level 137 # 136-145 mmol/L Potassium Level 4.2 3.5-5.1 mmol/L Chloride Level 101 # 98-107 mmol/L Carbon Dioxide Level 33 H 20-31 mmol/L Anion Gap 3 L 5-15 Blood Urea Nitrogen 6 L 9-23 mg/dL Creatinine 0.54 L 0.550-1.02 mg/dL Glomerular Filtration Rate Calc 108 >90 mL/min BUN/Creatinine Ratio 11.1 10.0-20.0 Serum Glucose 99 74-106 mg/dL Calcium Level 9.2 8.7-10.4 mg/dL Total Bilirubin 0.3 0.2-1.0 mg/dL Aspartate Amino Transferase (AST) 11 L 13-40 U/L Alanine Aminotransferase (ALT) 10 7-40 U/L Alkaline Phosphatase 69 46-116 U/L B-Type Natriuretic Peptide 405.15 0-100 pg/mL Total Protein 5.8 5.7-8.2 g/dL Albumin 3.9 3.2-4.8 g/dL Assessment Impression: Acute hypoxic respiratory failure Dependence on supplemental oxygen Acute COPD exacerbation Bipolar disorder Schizophrenia Plan: Supplemental oxygen Titrate to keep O2 sats above 92%. CXR on 05/14/25 reveals hyperexpansion of the lungs and relative lucency of the upper lungs, greater on the right which can be due to COPD/emphysema. Prominence of the main pulmonary artery which can be seen in the setting of pulmonary hypertension. Continue bronchodilators. Continue steroids Incentive spirometry Follow up Psych recommendations Monitor renal function. Monitor electrolytes. Supplement as necessary. Monitor ins and outs. DVT prophylaxis. Prognosis: Poor given patient's multiple co-morbidities. Rest of plan per hospitalist and other consultants. Thank you, EZ Ghotra, for allowing me to participate in this patient's care. Further recommendations will depend on the patient's clinical course. Please do not hesitate to contact me if you have any questions or concerns. This medical document was created using an electronic medical record system with [employer] computerized dictation system. Although these documentations are being carefully reviewed, there may still be some phonetic and typographical changes. The errors are purely typographical, due to imperfection on the software program, and do not reflect any compromise in the patient's medical care. Plan discussed with: Patient, Other (SIL Edge, EZ) BRITANY MEDRANO MD May 15, 2025 22:39
[2025-05-16] VITALS (11 sets, daily range): PULSE 76–92; RESP 17–22; O2SAT 94–100
[2025-05-16] MEDS ORDERED: AZITHROMYCIN 500MG/ 250ML 250 ML IV SCH (10:00)
[2025-05-16] MEDS: PANTOPRAZOLE 40 MG TAB PO SCH (10:16)
[2025-05-16] MEDS: ENOXAPARIN SOD 40 MG/0.4 ML SYRINGE SC SCH (10:17)
[2025-05-16 11:07] LABS: Hematocrit 46.8 % (36.0-46.0); Hemoglobin 15.7 g/dL (12.2-16.2); Mean Corpuscular Hemoglobin 32.1 pg (28.0-32.0); Mean Corpuscular Volume 95.9 fL (80.0-100.0); Nucleated Red Blood Cells % 0.2 %
[2025-05-16 11:27] LABS: Alanine Aminotransferase < 9 U/L (7-40); Albumin 4.1 g/dL (3.2-4.8); Alkaline Phosphatase 70 U/L (46-116); Anion Gap 5 (5-15); BUN/Creatinine Ratio 10.0 (10.0-20.0); Bilirubin, Total 0.5 mg/dL (0.2-1.0); Blood Urea Nitrogen 6 mg/dL (9-23); Calcium 9.7 mg/dL (8.7-10.4); Carbon Dioxide 33 mmol/L (20-31); Chloride 97 mmol/L (98-107); Glucose 113 mg/dL (74-106); Potassium 4.9 mmol/L (3.5-5.1); Sodium 135 mmol/L (136-145); Total Protein 6.2 g/dL (5.7-8.2)
--- NOTE | 2025-05-16 14:14 | DVHPN2 ---
Progress Note Date Seen: May 16, 2025 Medical Necessity Reason Pt with a Central, PICC or Fol: No Subjective Review of Systems: CVS:Normal, RESPIRATORY:Normal, GI:Normal, NEURO:Normal Objective vital signs Vital Sign Date Time Temp Pulse Resp B/P (MAP) Pulse Ox O2 Delivery O2 Flow Rate FiO2 05/16/25 12:00 97 05/16/25 12:00 19 107/58 (74) 97 05/16/25 07:30 Nasal Cannula* 2 28 05/16/25 07:30 97.1 97.1 Total Intake and Output 05/15/25 05/15/25 05/16/25 15:00 23:00 07:00 Intake Total 120 ml Balance 120 ml medications Current Medications Medications Dose Ordered Sig/Elaine Route Start Time Stop Time Status Last Admin Dose Admin Temazepam 15 mg QHSP PRN PO 05/15/25 11:15 Ondansetron HCl 4 mg Q4HP PRN IV 05/15/25 11:15 Enoxaparin Sodium 40 mg DAILY SC 05/16/25 10:00 05/16/25 10:17 40 MG Acetaminophen 650 mg Q6HP PRN PO 05/15/25 11:15 Morphine Sulfate 2 mg Q4HPRN PRN IV 05/15/25 11:15 Nitroglycerin 0.4 mg Q5MINP PRN SL 05/15/25 11:15 Morphine Sulfate 2 mg Q30M PRN IV 05/15/25 11:15 Albuterol 2.5 mg Q4HWA NEB 05/15/25 14:00 05/16/25 06:37 2.5 MG Ipratropium [place] 0.5 mg Q4HWA NEB 05/15/25 14:00 05/16/25 06:37 0.5 MG Budesonide 0.5 mg BID NEB 05/15/25 22:00 05/16/25 06:37 0.5 MG Doxycycline Hyclate 100 ml @ 50 mls/hr Q12HR IV 05/15/25 22:00 05/16/25 10:56 50 MLS/HR Methylprednisolone Sodium Succinate 60 mg Q6HR IV 05/15/25 12:00 05/16/25 05:59 60 MG Haloperidol 3 mg BID PO 05/15/25 22:00 05/16/25 10:17 3 MG Olanzapine 10 mg [id number] PRN PO 05/15/25 11:15 05/15/25 15:46 10 MG Pantoprazole Sodium 40 mg DAILY PO 05/16/25 10:00 05/16/25 10:16 40 MG Trazodone HCl 75 mg HS PO 05/15/25 22:00 05/15/25 21:31 75 MG Divalproex Sodium 500 mg BID PO 05/15/25 22:00 05/16/25 10:16 500 MG Examination: GENERAL:Normal, LUNGS:Abnormal (diminished), CVS:Normal, ABDOMEN:Normal, SKIN:Normal laboratory and microbiology Laboratory Tests 05/16/25 10:53 Test 05/16/25 10:53 Range/Units Serum Glucose 113 H 74-106 mg/dL Labs and/or images reviewed: Labs reviewed by me, Image(s) reviewed by me Problem List/Assessment/Plan Problem List/Assessment/Plan The patient reports improvement in her breathing since admission. She is currently on 2 liters of oxygen via nasal cannula, which is consistent with her home oxygen use. Chest X-ray yesterday revealed hyperexpansion of the lungs, relative lucency of the upper lungs, crater on the right (consistent with COPD/emphysema), and prominence of main pulmonary artery (suggesting potential pulmonary hypertension). The patient has been receiving med neb breathing treatments and IV antibiotics as part of her treatment for the COPD exacerbation. During her hospital stay, the patient was evaluated by a clip wrapper. She continues to take her home medications for bipolar disorder and schizophrenia. The patient's overall condition appears to be improving, as evidenced by her reported better breathing and the consideration for possible discharge the following day if her condition remains stable. The patient came from a memory care center and will return back to the same center upon discharge. Silvia White is a patient with a history of COPD, bipolar disorder, and schizophrenia presenting with acute on chronic hypoxic respiratory failure due to COPD exacerbation. Acute on chronic hypoxic respiratory failure due to COPD exacerbation Assessment: Patient is experiencing acute on chronic hypoxic respiratory failure secondary to COPD exacerbation. Chest X-ray yesterday showed hyperexpansion of the lungs, relative lucency of the upper lungs, crater on the right (consistent with COPD/emphysema), and prominence of main pulmonary artery (suggesting potential pulmonary hypertension). She reports improvement in breathing and is currently on 2 liters of nasal cannula, which is her home oxygen requirement. The patient has been receiving med neb breathing treatments and IV antibiotics, which appear to be effective in managing the exacerbation. Plan: - Continue med neb breathing treatments - Continue IV antibiotics - Maintain oxygen therapy at 2 liters via nasal cannula - Monitor respiratory status and oxygen saturation - Possible discharge tomorrow if stable Bipolar disorder Assessment: Patient has a history of bipolar disorder, currently stable on home medications. Plan: - Continue home medications for bipolar disorder Schizophrenia Assessment: Patient has a history of schizophrenia, currently stable on home medications. Plan: - Continue home medications for schizophrenia Noncompliance Assessment: Patient demonstrates potential behavioral noncompliance requiring redirection and close monitoring. Plan: - Implement behavioral redirection strategies - Closely monitor patient adherence to treatment plan - Educate patient on importance of following medical recommendations Oxygen Dependence Assessment: Patient is oxygen dependent with requirement of 2 liters via nasal cannula. Plan: - Continue oxygen therapy at 2 liters via nasal cannula - Monitor oxygen saturation levels - Ensure proper oxygen device usage and maintenance Plan discussed with: Patient My Orders My Orders Orders - RHYS GAMBINO Procedure Category Date Status Time * Digital Marketing Intern CONS 05/16/25 Transmitted Consult Date of Service: May 16, 2025 Billing Provider: JAYY MOTA MD Common Visit Codes: [id number] INP/OBS CARE (MOD) RHYS GAMBINO May 16, 2025 14:14
--- NOTE | 2025-05-16 22:43 | DVHPN2 ---
Progress Note - Dictate Date Seen: May 16, 2025 Medical Necessity Reason Pt with a Central, PICC or Fol: No Subjective Patient seen and examined at bedside. Remains on supplemental oxygen Overnight events reviewed. vital signs Vital Sign Date Time Temp Pulse Resp B/P (MAP) Pulse Ox O2 Delivery O2 Flow Rate FiO2 05/16/25 20:00 89 05/16/25 18:28 19 99 05/16/25 18:28 Nasal Cannula* 3 32 05/16/25 18:00 124/51 (75) 05/16/25 07:30 97.1 97.1 Total Intake and Output 05/15/25 05/15/25 05/16/25 15:00 23:00 07:00 Intake Total 120 ml Balance 120 ml medications Current Medications Medications Dose Ordered Sig/Elaine Route Start Time Stop Time Status Last Admin Dose Admin Temazepam 15 mg QHSP PRN PO 05/15/25 11:15 Ondansetron HCl 4 mg Q4HP PRN IV 05/15/25 11:15 Enoxaparin Sodium 40 mg DAILY SC 05/16/25 10:00 05/16/25 10:17 40 MG Acetaminophen 650 mg Q6HP PRN PO 05/15/25 11:15 Morphine Sulfate 2 mg Q4HPRN PRN IV 05/15/25 11:15 Nitroglycerin 0.4 mg Q5MINP PRN SL 05/15/25 11:15 Morphine Sulfate 2 mg Q30M PRN IV 05/15/25 11:15 Albuterol 2.5 mg Q4HWA NEB 05/15/25 14:00 05/16/25 22:14 2.5 MG Ipratropium [place] 0.5 mg Q4HWA NEB 05/15/25 14:00 05/16/25 22:14 0.5 MG Budesonide 0.5 mg BID NEB 05/15/25 22:00 05/16/25 22:14 0.5 MG Doxycycline Hyclate 100 ml @ 50 mls/hr Q12HR IV 05/15/25 22:00 05/16/25 10:56 50 MLS/HR Methylprednisolone Sodium Succinate 60 mg Q6HR IV 05/15/25 12:00 05/16/25 05:59 60 MG Haloperidol 3 mg BID PO 05/15/25 22:00 05/16/25 10:17 3 MG Olanzapine 10 mg [id number] PRN PO 05/15/25 11:15 05/15/25 15:46 10 MG Pantoprazole Sodium 40 mg DAILY PO 05/16/25 10:00 05/16/25 10:16 40 MG Trazodone HCl 75 mg HS PO 05/15/25 22:00 05/15/25 21:31 75 MG Divalproex Sodium 500 mg BID PO 05/15/25 22:00 05/16/25 10:16 500 MG objective Gen.: Patient lying in bed in no apparent distress. On supplemental oxygen. Head: Normocephalic, atraumatic. Eyes: EOMI/PERRLA. Ears: Normal hearing. Normal anatomy. Neck/trachea: Trachea midline, supple. Nose: Normal external anatomy. Mouth: Moist mucous membranes. Chest: Decreased air entry bilaterally. No wheezing or rhonchi. Cardiovascular: Positive S1, positive S2. Regular rate and rhythm. Abdomen: Positive bowel sounds in all 4 quadrants. Soft, non-tender, non- distended. : Deferred. Rectal: Deferred. Skin: Warm, dry. Intact. Extremities: 2+ radial pulses bilaterally. No lower extremity edema. Neuro: Awake, alert, oriented x3. No gross motor or sensory deficits. Cranial nerves II through XII intact. Gait not assessed. laboratory and microbiology Laboratory Tests 05/16/25 10:53 Test 05/16/25 10:53 Range/Units Serum Glucose 113 H 74-106 mg/dL Assessment/Plan Impression: Acute hypoxic respiratory failure Dependence on supplemental oxygen Acute COPD exacerbation Bipolar disorder Schizophrenia Events: Remains on supplemental oxygen, 2 LPM NC Taper O2 as tolerated No overnight events. Continue bronchodilators/Pulmicort Continue IV steroids Continue antibiotics Continue Lovenox for DVT ppx Protonix for GI ppx Labs and imaging reviewed. Rest of plan as noted below. Plan: Supplemental oxygen Titrate to keep O2 sats above 92%. CXR on 05/14/25 reveals hyperexpansion of the lungs and relative lucency of the upper lungs, greater on the right which can be due to COPD/emphysema. Prominence of the main pulmonary artery which can be seen in the setting of pulmonary hypertension. Continue bronchodilators. Continue steroids Incentive spirometry Follow up Psych recommendations Monitor renal function. Monitor electrolytes. Supplement as necessary. Monitor ins and outs. DVT prophylaxis. Prognosis: Poor given patient's multiple co-morbidities. Rest of plan per hospitalist and other consultants. Thank you, EZ Ghotra, for allowing me to participate in this patient's care. Further recommendations will depend on the patient's clinical course. Please do not hesitate to contact me if you have any questions or concerns. This medical document was created using an electronic medical record system with [employer] dictation system. Although these documentations are being carefully reviewed, there may still be some phonetic and typographical changes. The errors are purely typographical, due to imperfection on the software program, and do not reflect any compromise in the patient's medical care. Plan discussed with: Patient, Other (RN) BRITANY MEDRANO MD May 16, 2025 22:43
[2025-05-17] VITALS (17 sets, daily range): BP systolic 98–125; BP diastolic 68–75; PULSE 16–105; RESP 16–18; TEMP 97.5–98.4; O2SAT 92–100
--- NOTE | 2025-05-17 12:03 | DVHPN2 ---
Progress Note - Dictate Date Seen: May 17, 2025 Medical Necessity Reason Pt with a Central, PICC or Fol: No vital signs Vital Sign Date Time Temp Pulse Resp B/P (MAP) Pulse Ox O2 Delivery O2 Flow Rate FiO2 05/17/25 09:41 98 18 99 05/17/25 09:35 Nasal Cannula 2.0 05/17/25 09:35 28 05/17/25 09:00 98.4 111/71 (84) 98.4 medications Current Medications Medications Dose Ordered Sig/Elaine Route Start Time Stop Time Status Last Admin Dose Admin Temazepam 15 mg QHSP PRN PO 05/15/25 11:15 Ondansetron HCl 4 mg Q4HP PRN IV 05/15/25 11:15 Enoxaparin Sodium 40 mg DAILY SC 05/16/25 10:00 05/17/25 09:02 40 MG Acetaminophen 650 mg Q6HP PRN PO 05/15/25 11:15 Morphine Sulfate 2 mg Q4HPRN PRN IV 05/15/25 11:15 Nitroglycerin 0.4 mg Q5MINP PRN SL 05/15/25 11:15 Morphine Sulfate 2 mg Q30M PRN IV 05/15/25 11:15 Albuterol 2.5 mg Q4HWA NEB 05/15/25 14:00 05/17/25 09:31 2.5 MG Ipratropium [place] 0.5 mg Q4HWA NEB 05/15/25 14:00 05/17/25 09:31 0.5 MG Budesonide 0.5 mg BID NEB 05/15/25 22:00 05/17/25 09:31 0.5 MG Doxycycline Hyclate 100 ml @ 50 mls/hr Q12HR IV 05/15/25 22:00 05/16/25 10:56 50 MLS/HR Haloperidol 3 mg BID PO 05/15/25 22:00 05/17/25 09:01 3 MG Olanzapine 10 mg [id number] PRN PO 05/15/25 11:15 05/15/25 15:46 10 MG Pantoprazole Sodium 40 mg DAILY PO 05/16/25 10:00 05/17/25 09:01 40 MG Trazodone HCl 75 mg HS PO 05/15/25 22:00 05/15/25 21:31 75 MG Divalproex Sodium 500 mg BID PO 05/15/25 22:00 05/17/25 09:01 500 MG Prednisone 20 mg BID PO 05/17/25 22:00 05/24/25 21:59 laboratory and microbiology Laboratory Tests 05/16/25 10:53 Test 05/16/25 10:53 Range/Units Serum Glucose 113 H 74-106 mg/dL Assessment/Plan Subjective Patient is awake and alert Objective: Patient is having some auditory and visual hallucinations. Patient has underlying history of schizophrenia. Patient was recently discharged home. Patient is fearing her life stating people are trying to hurt her. Plan: Telepsych consult and evaluation. Continue home medications. Monitor daily labs Plan discussed with: Patient, Other JOYA PLATT NP May 17, 2025 12:03
[2025-05-17 12:32] LABS: Hepatitis B Surface Antigen Negative (Negative); Hepatitis C Antibody Negative (Negative)
[2025-05-17] MEDS: LORazepam 0.5 MG TAB PO PRN (16:19)
[2025-05-17] MEDS: BENZTROPINE MESY 0.5 MG TAB PO SCH (21:52)
[2025-05-17] MEDS ORDERED: BENZTROPINE MESYLATE 1 MG PO SCH (22:00)
[2025-05-17] MEDS: HALOPERIDOL 1 MG TAB PO SCH (22:18)
--- NOTE | 2025-05-17 23:02 | DVHPN2 ---
Progress Note - Dictate Date Seen: May 17, 2025 Medical Necessity Reason Pt with a Central, PICC or Fol: No Subjective Patient seen and examined at bedside. Remains on supplemental oxygen Overnight events reviewed. vital signs Vital Sign Date Time Temp Pulse Resp B/P (MAP) Pulse Ox O2 Delivery O2 Flow Rate FiO2 05/17/25 22:25 101 18 100 05/17/25 22:15 Nasal Cannula 2.0 05/17/25 22:15 28 05/17/25 21:00 98.2 102/72 (82) 98.2 medications Current Medications Medications Dose Ordered Sig/Elaine Route Start Time Stop Time Status Last Admin Dose Admin Temazepam 15 mg QHSP PRN PO 05/15/25 11:15 Ondansetron HCl 4 mg Q4HP PRN IV 05/15/25 11:15 Enoxaparin Sodium 40 mg DAILY SC 05/16/25 10:00 05/17/25 09:02 40 MG Acetaminophen 650 mg Q6HP PRN PO 05/15/25 11:15 Morphine Sulfate 2 mg Q4HPRN PRN IV 05/15/25 11:15 Nitroglycerin 0.4 mg Q5MINP PRN SL 05/15/25 11:15 Morphine Sulfate 2 mg Q30M PRN IV 05/15/25 11:15 Albuterol 2.5 mg Q4HWA NEB 05/15/25 14:00 05/17/25 22:15 2.5 MG Ipratropium [place] 0.5 mg Q4HWA NEB 05/15/25 14:00 05/17/25 22:15 0.5 MG Budesonide 0.5 mg BID NEB 05/15/25 22:00 05/17/25 22:15 0.5 MG Doxycycline Hyclate 100 ml @ 50 mls/hr Q12HR IV 05/15/25 22:00 05/17/25 21:52 50 MLS/HR Olanzapine 10 mg [id number] PRN PO 05/15/25 11:15 05/15/25 15:46 10 MG Pantoprazole Sodium 40 mg DAILY PO 05/16/25 10:00 05/17/25 09:01 40 MG Trazodone HCl 75 mg HS PO 05/15/25 22:00 05/17/25 22:18 75 MG Divalproex Sodium 500 mg BID PO 05/15/25 22:00 05/17/25 21:52 500 MG Prednisone 20 mg BID PO 05/17/25 22:00 05/24/25 21:59 Haloperidol 3 mg BID PO 05/17/25 22:00 05/17/25 22:18 3 MG Lorazepam 0.5 mg Q4HPRN PRN PO 05/17/25 15:30 05/17/25 16:19 0.5 MG Patient Own Medication 1 mg BID PO 05/17/25 22:00 UNV Benztropine Mesylate 1 mg BID PO 05/17/25 22:00 05/17/25 21:52 1 MG objective Gen.: Patient lying in bed in no apparent distress. On supplemental oxygen. Head: Normocephalic, atraumatic. Eyes: EOMI/PERRLA. Ears: Normal hearing. Normal anatomy. Neck/trachea: Trachea midline, supple. Nose: Normal external anatomy. Mouth: Moist mucous membranes. Chest: Decreased air entry bilaterally. No wheezing or rhonchi. Cardiovascular: Positive S1, positive S2. Regular rate and rhythm. Abdomen: Positive bowel sounds in all 4 quadrants. Soft, non-tender, non- distended. : Deferred. Rectal: Deferred. Skin: Warm, dry. Intact. Extremities: 2+ radial pulses bilaterally. No lower extremity edema. Neuro: Awake, alert, oriented x3. No gross motor or sensory deficits. Cranial nerves II through XII intact. Gait not assessed. laboratory and microbiology Laboratory Tests 05/16/25 10:53 Test 05/16/25 10:53 Range/Units Serum Glucose 113 H 74-106 mg/dL Assessment/Plan Impression: Acute hypoxic respiratory failure Dependence on supplemental oxygen Acute COPD exacerbation Bipolar disorder Schizophrenia Events: Improved oxygen requirements On supplemental oxygen, 2 LPM NC Taper O2 as tolerated No overnight events. Continue bronchodilators/Pulmicort Continue steroids- transition to PO prednisone Continue antibiotics Continue Lovenox for DVT ppx Protonix for GI ppx Labs and imaging reviewed. Rest of plan as noted below. Plan: Supplemental oxygen Titrate to keep O2 sats above 92%. CXR on 05/14/25 reveals hyperexpansion of the lungs and relative lucency of the upper lungs, greater on the right which can be due to COPD/emphysema. Prominence of the main pulmonary artery which can be seen in the setting of pulmonary hypertension. Continue bronchodilators. Continue steroids Incentive spirometry Follow up Psych recommendations Monitor renal function. Monitor electrolytes. Supplement as necessary. Monitor ins and outs. DVT prophylaxis. Prognosis: Poor given patient's multiple co-morbidities. Rest of plan per hospitalist and other consultants. Thank you, EZ Ghotra, for allowing me to participate in this patient's care. Further recommendations will depend on the patient's clinical course. Please do not hesitate to contact me if you have any questions or concerns. This medical document was created using an electronic medical record system with [employer] dictation system. Although these documentations are being carefully reviewed, there may still be some phonetic and typographical changes. The errors are purely typographical, due to imperfection on the software program, and do not reflect any compromise in the patient's medical care. Plan discussed with: Patient, Other (SIL Celeste) BRITANY MEDRANO MD May 17, 2025 23:02
[2025-05-17] MEDS: predniSONE 20 MG TAB PO SCH (23:03)
[2025-05-18] VITALS (18 sets, daily range): BP systolic 102–116; BP diastolic 46–78; PULSE 87–113; RESP 16–20; TEMP 97.6–98.7; O2SAT 93–100
--- NOTE | 2025-05-18 07:34 | DVHPN2 ---
Progress Note - Dictate Date Seen: May 18, 2025 Medical Necessity Reason Pt with a Central, PICC or Fol: No vital signs Vital Sign Date Time Temp Pulse Resp B/P (MAP) Pulse Ox O2 Delivery O2 Flow Rate FiO2 05/18/25 05:00 97.6 89 18 112/69 (83) 98 97.6 05/17/25 22:15 Nasal Cannula 2.0 05/17/25 22:15 28 Total Intake and Output 05/17/25 05/17/25 05/18/25 15:00 23:00 07:00 Intake Total 820 ml 100 ml Balance 820 ml 100 ml medications Current Medications Medications Dose Ordered Sig/Elaine Route Start Time Stop Time Status Last Admin Dose Admin Temazepam 15 mg QHSP PRN PO 05/15/25 11:15 Ondansetron HCl 4 mg Q4HP PRN IV 05/15/25 11:15 Enoxaparin Sodium 40 mg DAILY SC 05/16/25 10:00 05/17/25 09:02 40 MG Acetaminophen 650 mg Q6HP PRN PO 05/15/25 11:15 Morphine Sulfate 2 mg Q4HPRN PRN IV 05/15/25 11:15 Nitroglycerin 0.4 mg Q5MINP PRN SL 05/15/25 11:15 Morphine Sulfate 2 mg Q30M PRN IV 05/15/25 11:15 Albuterol 2.5 mg Q4HWA [facility] 05/15/25 14:00 05/18/25 07:17 2.5 MG Ipratropium [place] 0.5 mg Q4HWA NEB 05/15/25 14:00 05/18/25 07:17 0.5 MG Budesonide 0.5 mg BID NEB 05/15/25 22:00 05/18/25 07:17 0.5 MG Doxycycline Hyclate 100 ml @ 50 mls/hr Q12HR IV 05/15/25 22:00 05/17/25 21:52 50 MLS/HR Olanzapine 10 mg [id number] PRN PO 05/15/25 11:15 05/15/25 15:46 10 MG Pantoprazole Sodium 40 mg DAILY PO 05/16/25 10:00 05/17/25 09:01 40 MG Trazodone HCl 75 mg HS PO 05/15/25 22:00 05/17/25 22:18 75 MG Divalproex Sodium 500 mg BID PO 05/15/25 22:00 05/17/25 21:52 500 MG Prednisone 20 mg BID PO 05/17/25 22:00 05/24/25 21:59 05/17/25 23:03 20 MG Haloperidol 3 mg BID PO 05/17/25 22:00 05/17/25 22:18 3 MG Lorazepam 0.5 mg Q4HPRN PRN PO 05/17/25 15:30 05/17/25 16:19 0.5 MG Patient Own Medication 1 mg BID PO 05/17/25 22:00 UNV Benztropine Mesylate 1 mg BID PO 05/17/25 22:00 05/17/25 21:52 1 MG objective General Appearance: alert, no distress HEENT: EOMI, PERRLA, normal external inspect of ears, no icterus, no nasal drainage Neck: no carotid bruit, no jugular venous distention (JVD), no lymphadenopathy Chest: normal thorax Respiratory: clear to auscultation, normal air movement Cardiovascular: regular rate and rhythm, no diastolic murmur, no jugular venous distention (JVD), no rub, no systolic murmur Abdominal: soft, no hepatomegaly, no mass, no splenomegaly, no tenderness Musculoskeletal: no joint tenderness, no swelling Extremities: normal pulses, no calf tenderness, no clubbing, no cyanosis, no edema Skin: no bruising, no jaundice, no rash Neurological: alert, No focal deficit laboratory and microbiology Laboratory Tests 05/16/25 10:53 Test 05/16/25 10:53 Range/Units Serum Glucose 113 H 74-106 mg/dL Problem List Acute on chronic hypoxic respiratory failure due to COPD exacerbation Assessment: Patient is experiencing acute on chronic hypoxic respiratory failure secondary to COPD exacerbation. Chest X-ray yesterday showed hyperexpansion of the lungs, relative lucency of the upper lungs, crater on the right (consistent with COPD/emphysema), and prominence of main pulmonary artery (suggesting potential pulmonary hypertension). She reports improvement in breathing and is currently on 2 liters of nasal cannula, which is her home oxygen requirement. The patient has been receiving med neb breathing treatments and IV antibiotics, which appear to be effective in managing the exacerbation. Plan: - Continue med neb breathing treatments - Continue IV antibiotics - Maintain oxygen therapy at 2 liters via nasal cannula - Monitor respiratory status and oxygen saturation - Possible discharge tomorrow if stable Bipolar disorder Assessment: Patient has a history of bipolar disorder, currently stable on home medications. Plan: - Continue home medications for bipolar disorder Schizophrenia Assessment: Patient has a history of schizophrenia, currently stable on home medications. Plan: - Continue home medications for schizophrenia Noncompliance Assessment: Patient demonstrates potential behavioral noncompliance requiring redirection and close monitoring. Plan: - Implement behavioral redirection strategies - Closely monitor patient adherence to treatment plan - Educate patient on importance of following medical recommendations Oxygen Dependence Assessment: Patient is oxygen dependent with requirement of 2 liters via nasal cannula. Plan: - Continue oxygen therapy at 2 liters via nasal cannula - Monitor oxygen saturation levels - Ensure proper oxygen device usage and maintenance Assessment/Plan Subjective Patient is awake and alert. Objective Patient was admitted for COPD exacerbation. Patient is having auditory hallucinations. Teleneurology was consulted. Attempted to talk to telemetry neuro. I did leave a voice message to discuss plan of care. I also attempted to contact [facility] [place] to get a medication list in regards to psychiatric medication, however I was only able to leave a voicemail and they did not return my call. Plan Continue current medications. Monitor mental status. Patient is more calm. Possible DC plan for tomorrow once medication has been adjusted by psychiatry. Plan discussed with: Patient, Other JOYA PLATT NP May 18, 2025 07:34
--- NOTE | 2025-05-18 10:34 | DVHINCON2 ---
Date of Service if different f: May 18, 2025 Time of Service: 10:34 Consultation (TONTO BASIN) Labs Laboratory Tests Test 05/14/25 21:40 05/15/25 00:25 05/16/25 10:53 05/17/25 10:45 Blood Gas Specimen Type Venous Blood Gas Sample Site Vbg - n/a Blood Gas Patient Temperature 37.0 Arterial Blood Date Drawn [id number] Clay Test N/a Venous Blood pH 7.367 (7.320-7.430) Venous Blood pCO2 at Patient Temp 58.6 mmHg (38.0-54.0) Venous Blood pO2 at Patient Temp 53.1 mmHg (23.0-48.0) Venous Blood HCO3 32.9 mmol/L (22.0-29.0) Venous Blood Base Excess 5.6 mmol/L (-2.0-3.0) Blood Gas Liter Flow 3.00 Blood Gas Modality Nasal cannula FiO2 % 32.0 Blood Gas Critical Value Read Back Yes Blood Gas Notified Whom nyasia Cintron Blood Gas Notified Time [id number] Blood Gas Notified By Sabine oneil rrt B-Type Natriuretic Peptide 405.15 pg/mL (0-100) Troponin I High Sensitivity 9 ng/L (</=34) White Blood Count 4.7 10^3/uL (4.4-10.8) Red Blood Count 4.88 10^6/uL (4.0-5.20) Hemoglobin 15.7 g/dL (12.2-16.2) Hematocrit 46.8 % (36.0-46.0) Mean Corpuscular Volume 95.9 fL (80.0-100.0) Mean Corpuscular Hemoglobin 32.1 pg (28.0-32.0) Mean Corpuscular Hemoglobin Concent 33.5 g/dL (32.0-36.0) Red Cell Distribution Width 14.9 % (11.8-14.3) Platelet Count 189 10^3/uL (140-450) Mean Platelet Volume 7.5 fL (6.9-10.8) Neutrophils (%) (Auto) 54.1 % (37.0-80.0) Lymphocytes (%) (Auto) 37.0 % (10.0-50.0) Monocytes (%) (Auto) 8.2 % (0.0-12.0) Eosinophils (%) (Auto) 0.5 % (0.0-7.0) Basophils (%) (Auto) 0.2 % (0.0-2.0) Neutrophils # (Auto) 2.5 10 ^3/uL (1.6-8.6) Lymphocytes # (Auto) 1.7 10 ^3/uL (0.4-5.4) Monocytes # (Auto) 0.4 10 ^3/uL (0-1.3) Eosinophils # (Auto) 0 10 ^3/uL (0-0.8) Basophils # (Auto) 0 10 ^3/uL (0-0.2) Nucleated Red Blood Cells 0.2 % Sodium Level 135 mmol/L (136-145) Potassium Level 4.9 mmol/L (3.5-5.1) Chloride Level 97 mmol/L (98-107) Carbon Dioxide Level 33 mmol/L (20-31) Anion Gap 5 (5-15) Blood Urea Nitrogen 6 mg/dL (9-23) Creatinine 0.60 mg/dL (0.550-1.02) Glomerular Filtration Rate Calc 105 mL/min (>90) BUN/Creatinine Ratio 10.0 (10.0-20.0) Serum Glucose 113 mg/dL (74-106) Calcium Level 9.7 mg/dL (8.7-10.4) Total Bilirubin 0.5 mg/dL (0.2-1.0) Aspartate Amino Transf (AST/SGOT) 11 U/L (13-40) Alanine Aminotransferase (ALT/SGPT) < 9 U/L (7-40) Alkaline Phosphatase 70 U/L (46-116) Total Protein 6.2 g/dL (5.7-8.2) Albumin 4.1 g/dL (3.2-4.8) Hepatitis B Surface Antigen Negative (Negative) Hepatitis C Antibody Negative (Negative) Vitals Vital Signs Date Time Temp Pulse Resp B/P (MAP) Pulse Ox O2 Delivery O2 Flow Rate FiO2 05/18/25 07:17 93 Nasal Cannula 2.0 05/18/25 07:17 89 18 05/18/25 07:17 28 05/18/25 05:00 97.6 112/69 (83) 97.6 Current medications Current Medications Medications Dose Ordered Sig/Elaine Route Start Time Stop Time Status Last Admin Dose Admin Temazepam 15 mg QHSP PRN PO 05/15/25 11:15 Ondansetron HCl 4 mg Q4HP PRN IV 05/15/25 11:15 Enoxaparin Sodium 40 mg DAILY SC 05/16/25 10:00 05/17/25 09:02 40 MG Acetaminophen 650 mg Q6HP PRN PO 05/15/25 11:15 Morphine Sulfate 2 mg Q4HPRN PRN IV 05/15/25 11:15 Nitroglycerin 0.4 mg Q5MINP PRN SL 05/15/25 11:15 Morphine Sulfate 2 mg Q30M PRN IV 05/15/25 11:15 Albuterol 2.5 mg Q4HWA NEB 05/15/25 14:00 05/18/25 10:08 2.5 MG Ipratropium [place] 0.5 mg Q4HWA NEB 05/15/25 14:00 05/18/25 10:08 0.5 MG Budesonide 0.5 mg BID NEB 05/15/25 22:00 05/18/25 07:17 0.5 MG Doxycycline Hyclate 100 ml @ 50 mls/hr Q12HR IV 05/15/25 22:00 05/17/25 21:52 50 MLS/HR Olanzapine 10 mg [id number] PRN PO 05/15/25 11:15 05/15/25 15:46 10 MG Pantoprazole Sodium 40 mg DAILY PO 05/16/25 10:00 05/17/25 09:01 40 MG Trazodone HCl 75 mg HS PO 05/15/25 22:00 05/17/25 22:18 75 MG Divalproex Sodium 500 mg BID PO 05/15/25 22:00 05/17/25 21:52 500 MG Prednisone 20 mg BID PO 05/17/25 22:00 05/24/25 21:59 05/17/25 23:03 20 MG Haloperidol 3 mg BID PO 05/17/25 22:00 05/17/25 22:18 3 MG Lorazepam 0.5 mg Q4HPRN PRN PO 05/17/25 15:30 05/17/25 16:19 0.5 MG Patient Own Medication 1 mg BID PO 05/17/25 22:00 UNV Benztropine Mesylate 1 mg BID PO 05/17/25 22:00 05/17/25 21:52 1 MG PSYCHIATRY CONSULTATION INITIAL EVALUATION REASON FOR CONSULT: HPI: 55-year-old woman with a history of COPD and bipolar disorder, recently discharged two days ago, now readmitted with another COPD exacerbation and presenting with O? saturation of 60%. Primary team raised concerns about poor medication adherence at home. On evaluation, the patient is alert and oriented to person, place, time, and situation. She explains she is in the hospital because of difficulty breathing. She reports smoking in the past but denies smoking since this admission. She admits to using oxygen at home but has been attempting to wean herself off. She expresses a strong desire to return home, though understands that decision lies with her medical team. She reports experiencing auditory hallucinations, such as hearing voices saying Im a maiden and the recordist chief is on me. She acknowledges non-adherence with her psychiatric medications at home but promises to resume them if discharged. She denies suicidal ideation or homicidal ideation. She describes her mood as nervous because she wants to be released. She endorses a remote history of self-harm (putting her finger in detergent), but denies suicide attempts and denies current intent. PSYCHIATRIC HISTORY: DIAGNOSIS: Reports history bipolar disorder, psychosis, trauma ADMISSIONS: Prior admission in [place] about 2 years ago. MEDICATION TRIALS: Currently on Haldol, Depakote, Cogentin reports non- adherence OUTPATIENT CARE: Pt believes she receives mental health care where she resides SI/SELF-INJURY/SUICIDE ATTEMPT: Per above SUBSTANCE USE: Denies us of drugs or alcohol ALLERGIES: Azithromycin, Lactose MENTAL STATUS EXAMINATION: The patient is casually dressed, appears her stated age, and is cooperative with the interview. Eye contact is fair. Psychomotor activity is normal. Speech is of regular rate, rhythm, and volume. Mood is described as nervous, with affect congruent and somewhat anxious. Thought process is logical and goal-directed. Thought content is notable for auditory hallucinations with some paranoid themes, but without suicidal or homicidal ideation. Insight is limited, as she has not been adherent with medications or oxygen therapy. Judgment is fair in structured settings but impaired by non-adherence. Impulse control is fair. Cognition is grossly intact with orientation to person, place, time, and situation. DIFFERENTIAL DIAGNOSIS Bipolar disorder with psychotic features (chronic, exacerbated by medication non-adherence) Schizoaffective disorder (less likely but considered given psychosis outside of mood episodes) Psychotic disorder due to general medical condition (possible contribution from hypoxemia in the setting of COPD exacerbation) Substance-induced psychotic disorder (less likely, denies substance use, UDS not yet obtained) Delirium, multifactorial (COPD exacerbation with hypoxemia and possible medication nonadherence) ASSESSMENT: This is a 55-year-old woman with COPD and bipolar disorder, readmitted for COPD exacerbation with hypoxemia. She presents with auditory hallucinations and paranoid ideation in the context of medication non-adherence and suboptimal oxygen use. Her symptoms are not acute in severity and do not reflect imminent danger to self or others, nor grave disability. She denies suicidal intent, homicidal thoughts, and demonstrates capacity to engage in care planning. Her psychotic symptoms are most likely secondary to medication non-adherence and possibly exacerbated by hypoxemia. She does not meet criteria for a 5150 hold or inpatient psychiatric admission. The priority is to restart her home psychiatric medications, support adherence, and ensure medical stabilization. RECOMMENDATIONS: 1. Legal: Patient does not meet criteria for 5150. No involuntary hold indicated. 2. Disposition: No inpatient psychiatric admission required. Continue treatment on primary medical service. Encourage outpatient psychiatric follow-up once medically stable. 3. Medications: Continue home psychiatric medications (Haldol, Depakote, Cogentin) as tolerated. Allow sufficient time for stabilization with consistent adherence. 4. Medical Considerations - Cannot rule out contribution of hypoxemia to psychiatric symptoms. - Strongly encourage continued oxygen supplementation as prescribed; emphasize risks of non-adherence. - Monitor for delirium or worsening confusion during hospitalization. - Rule out contribution of substance via UDS and BAL 5. Other - Provide psychoeducation regarding the importance of medication and oxygen adherence. - Coordinate with outpatient providers for continuity of psychiatric and pulmonary care. GATO VIDALES MD May 18, 2025 10:34
--- NOTE | 2025-05-18 10:36 | ECG ---
[facility] Test Date: 2025-05-14 Test Time: 21:35:12 Pat Name: NATIVIDAD URBAN Department: Room: 0205T A Gender: F Typing Section Chief: ABRAHAN : 1970 Requested By: MANDY OJEDA Order Number: [id number] Reading MD: Guanaco Camacho Measurements Intervals [place] Rate: 89 P: 93 IN: 132 QRS: 119 QRSD: 86 T: -81 QT: 398 QTc: 485 Interpretive Statements Sinus rhythm Ventricular premature complex Aberrant conduction of SV complex(es) Right axis deviation Abnormal R-wave progression, late transition Nonspecific T abnormalities, inferior leads Electronically Signed On 05-20-2025 14:50:02 PDT by Guanaco Camacho Please click the below link to view image of tracing.
[2025-05-18] MEDS: ACETAMINOPHEN 325 MG TAB PO PRN (17:38)
--- NOTE | 2025-05-18 23:39 | DVHPN2 ---
Progress Note - Dictate Date Seen: May 18, 2025 Medical Necessity Reason Pt with a Central, PICC or Fol: No Subjective Patient seen and examined at bedside. Remains on supplemental oxygen Overnight events reviewed. vital signs Vital Sign Date Time Temp Pulse Resp B/P (MAP) Pulse Ox O2 Delivery O2 Flow Rate FiO2 05/18/25 21:00 98.6 89 17 116/75 (89) 100 98.6 05/18/25 20:00 Nasal Cannula* 2 28 Total Intake and Output 05/17/25 05/17/25 05/18/25 15:00 23:00 07:00 Intake Total 820 ml 100 ml Balance 820 ml 100 ml medications Current Medications Medications Dose Ordered Sig/Elaine Route Start Time Stop Time Status Last Admin Dose Admin Temazepam 15 mg QHSP PRN PO 05/15/25 11:15 Ondansetron HCl 4 mg Q4HP PRN IV 05/15/25 11:15 Enoxaparin Sodium 40 mg DAILY SC 05/16/25 10:00 05/18/25 11:33 40 MG Acetaminophen 650 mg Q6HP PRN PO 05/15/25 11:15 05/18/25 20:19 650 MG Morphine Sulfate 2 mg Q4HPRN PRN IV 05/15/25 11:15 Nitroglycerin 0.4 mg Q5MINP PRN SL 05/15/25 11:15 Morphine Sulfate 2 mg Q30M PRN IV 05/15/25 11:15 Albuterol 2.5 mg Q4HWA NEB 05/15/25 14:00 05/18/25 18:37 2.5 MG Ipratropium [place] 0.5 mg Q4HWA NEB 05/15/25 14:00 05/18/25 18:37 0.5 MG Budesonide 0.5 mg BID NEB 05/15/25 22:00 05/18/25 18:37 0.5 MG Doxycycline Hyclate 100 ml @ 50 mls/hr Q12HR IV 05/15/25 22:00 05/18/25 11:33 50 MLS/HR Olanzapine 10 mg [id number] PRN PO 05/15/25 11:15 05/15/25 15:46 10 MG Pantoprazole Sodium 40 mg DAILY PO 05/16/25 10:00 05/18/25 11:33 40 MG Trazodone HCl 75 mg HS PO 05/15/25 22:00 05/18/25 21:30 75 MG Divalproex Sodium 500 mg BID PO 05/15/25 22:00 05/18/25 21:29 500 MG Prednisone 20 mg BID PO 05/17/25 22:00 05/24/25 21:59 05/18/25 21:29 20 MG Haloperidol 3 mg BID PO 05/17/25 22:00 05/18/25 22:06 3 MG Lorazepam 0.5 mg Q4HPRN PRN PO 05/17/25 15:30 05/17/25 16:19 0.5 MG Patient Own Medication 1 mg BID PO 05/17/25 22:00 UNV Benztropine Mesylate 1 mg BID PO 05/17/25 22:00 05/18/25 21:30 1 MG objective Gen.: Patient lying in bed in no apparent distress. On supplemental oxygen. Head: Normocephalic, atraumatic. Eyes: EOMI/PERRLA. Ears: Normal hearing. Normal anatomy. Neck/trachea: Trachea midline, supple. Nose: Normal external anatomy. Mouth: Moist mucous membranes. Chest: Decreased air entry bilaterally. No wheezing or rhonchi. Cardiovascular: Positive S1, positive S2. Regular rate and rhythm. Abdomen: Positive bowel sounds in all 4 quadrants. Soft, non-tender, non- distended. : Deferred. Rectal: Deferred. Skin: Warm, dry. Intact. Extremities: 2+ radial pulses bilaterally. No lower extremity edema. Neuro: Awake, alert, oriented x3. No gross motor or sensory deficits. Cranial nerves II through XII intact. Gait not assessed. laboratory and microbiology Laboratory Tests 05/16/25 10:53 Test 05/16/25 10:53 Range/Units Serum Glucose 113 H 74-106 mg/dL Assessment/Plan Impression: Acute hypoxic respiratory failure Dependence on supplemental oxygen Acute COPD exacerbation Bipolar disorder Schizophrenia Events: Improved oxygen requirements On supplemental oxygen, 2 LPM NC Taper O2 as tolerated No overnight events. Continue bronchodilators/Pulmicort Steroids- on prednisone 20 mg PO BID Continue antibiotics, complete course Continue Lovenox for DVT ppx Protonix for GI ppx Disposition per hospitalist. Labs and imaging reviewed. Rest of plan as noted below. Plan: Supplemental oxygen Titrate to keep O2 sats above 92%. CXR on 05/14/25 reveals hyperexpansion of the lungs and relative lucency of the upper lungs, greater on the right which can be due to COPD/emphysema. Prominence of the main pulmonary artery which can be seen in the setting of pulmonary hypertension. Continue bronchodilators. Continue steroids Incentive spirometry Follow up Psych recommendations Monitor renal function. Monitor electrolytes. Supplement as necessary. Monitor ins and outs. DVT prophylaxis. Prognosis: Poor given patient's multiple co-morbidities. Rest of plan per hospitalist and other consultants. Thank you, EZ Ghotra, for allowing me to participate in this patient's care. Further recommendations will depend on the patient's clinical course. Please do not hesitate to contact me if you have any questions or concerns. This medical document was created using an electronic medical record system with [employer] dictation system. Although these documentations are being carefully reviewed, there may still be some phonetic and typographical changes. The errors are purely typographical, due to imperfection on the software program, and do not reflect any compromise in the patient's medical care. Dietary Evaluation Review Comments: 1. encourage PO intake, offer Ensure HP 240ml PO BID supplements 2. smoking cessation, cousneling if possible Expected Outcomes/Goals: Gradual wt gain and improved nutrition overall status Plan discussed with: Patient, Other (SIL Solano) BRITANY MEDRANO MD May 18, 2025 23:39
[2025-05-19] VITALS (12 sets, daily range): BP systolic 91–102; BP diastolic 48–86; PULSE 77–104; RESP 16–18; TEMP 36.8; O2SAT 91–100
[2025-05-19] MEDS ORDERED: BENZ1TAB6 PO ×2 (12:09)
[2025-05-19] MEDS ORDERED: HAL5T PO ×2 (12:09)
[2025-05-19] MEDS ORDERED: DIVA500T13 PO ×2 (12:09)
[2025-05-19] MEDS ORDERED: TRAZ-227 PO ×2 (12:09)
--- NOTE | 2025-05-19 12:12 | DVHDS2 ---
Discharge Summary Date of Admission May 15, 2025 at 11:10 Date of Discharge: May 19, 2025 Labs/Diagnostic Data: Laboratory Results Test 05/17/25 10:45 05/16/25 10:53 05/15/25 00:25 05/14/25 21:40 Hepatitis B Surface Antigen Negative (Negative) Hepatitis C Antibody Negative (Negative) White Blood Count 4.7 10^3/uL (4.4-10.8) Red Blood Count 4.88 10^6/uL (4.0-5.20) Hemoglobin 15.7 g/dL (12.2-16.2) Hematocrit 46.8 % (36.0-46.0) Mean Corpuscular Volume 95.9 fL (80.0-100.0) Mean Corpuscular Hemoglobin 32.1 pg (28.0-32.0) Mean Corpuscular Hemoglobin Concent 33.5 g/dL (32.0-36.0) Red Cell Distribution Width 14.9 % (11.8-14.3) Platelet Count 189 10^3/uL (140-450) Mean Platelet Volume 7.5 fL (6.9-10.8) Neutrophils (%) (Auto) 54.1 % (37.0-80.0) Lymphocytes (%) (Auto) 37.0 % (10.0-50.0) Monocytes (%) (Auto) 8.2 % (0.0-12.0) Eosinophils (%) (Auto) 0.5 % (0.0-7.0) Basophils (%) (Auto) 0.2 % (0.0-2.0) Neutrophils # (Auto) 2.5 10 ^3/uL (1.6-8.6) Lymphocytes # (Auto) 1.7 10 ^3/uL (0.4-5.4) Monocytes # (Auto) 0.4 10 ^3/uL (0-1.3) Eosinophils # (Auto) 0 10 ^3/uL (0-0.8) Basophils # (Auto) 0 10 ^3/uL (0-0.2) Nucleated Red Blood Cells 0.2 % Sodium Level 135 mmol/L (136-145) Potassium Level 4.9 mmol/L (3.5-5.1) Chloride Level 97 mmol/L (98-107) Carbon Dioxide Level 33 mmol/L (20-31) Anion Gap 5 (5-15) Blood Urea Nitrogen 6 mg/dL (9-23) Creatinine 0.60 mg/dL (0.550-1.02) Glomerular Filtration Rate Calc 105 mL/min (>90) BUN/Creatinine Ratio 10.0 (10.0-20.0) Serum Glucose 113 mg/dL (74-106) Calcium Level 9.7 mg/dL (8.7-10.4) Total Bilirubin 0.5 mg/dL (0.2-1.0) Aspartate Amino Transferase (AST) 11 U/L (13-40) Alanine Aminotransferase (ALT) < 9 U/L (7-40) Alkaline Phosphatase 70 U/L (46-116) Total Protein 6.2 g/dL (5.7-8.2) Albumin 4.1 g/dL (3.2-4.8) Troponin I High Sensitivity 9 ng/L (</=34) Blood Gas Specimen Type Venous Blood Gas Sample Site Vbg - n/a Blood Gas Patient Temperature 37.0 Arterial Blood Date Drawn [id number] Clay Test N/a Venous Blood pH 7.367 (7.320-7.430) Venous Blood pCO2 at Patient Temp 58.6 mmHg (38.0-54.0) Venous Blood pO2 at Patient Temp 53.1 mmHg (23.0-48.0) Venous Blood HCO3 32.9 mmol/L (22.0-29.0) Venous Blood Base Excess 5.6 mmol/L (-2.0-3.0) Blood Gas Liter Flow 3.00 Blood Gas Modality Nasal cannula FiO2 % 32.0 Blood Gas Critical Value Read Back Yes Blood Gas Notified Whom nyasia Cintron Blood Gas Notified Time [id number] Blood Gas Notified By Sabine oneil rrt B-Type Natriuretic Peptide 405.15 pg/mL (0-100) Other Laboratory Tests 05/16/25 10:53 Brief Hx & Hospital Course: Silvia White is a 55-year-old female with a history of COPD and bipolar disorder presenting to the emergency room with shortness of breath. The patient was recently discharged from the hospital two days ago following a COPD exacerbation.Upon discharge, Ms. White was transferred to [facility]. However, she developed shortness of breath shortly after. Despite being prescribed home oxygen, the patient is now compliant with this treatment. Her current oxygen saturation is 60% on room air, indicating acute hypoxic respiratory failure due to COPD exacerbation. Patient was admitted on May 15, 2025, for COPD exacerbation. She had been recently discharged but was noncompliant with her oxygen therapy. She has a history of schizophrenia and was evaluated by [facility] due to auditory and visual hallucinations. Once her medications were restarted, she was agreeable to compliance and remained very calm. Pulmonary was consulted for her COPD exacerbation, and although she refused antibiotics, her oxygen demand increased only to 1 L via nasal cannula, where she remained stable and in no apparent distress. She was discharged back to her [facility], and her schizophrenia medications were renewed. The patient received proper medical treatment and medications. Vital signs, Imaging and Laboratory Work was monitored daily. All consults recommendations were followed as provided. There were no complaints or new complaints upon discharge, all questions and concerns were answered. Patient was advised to return to the ER or call 911 if any headaches, dizziness, shortness of breath, chest pain, bleeding, fevers, or worsening of medical condition. Patient/Family was counseled about treatment plan, medications, possible side effects, patient verbalized understanding. All questions were answered to the best of my ability. The patient symptoms improved and they are okay to be DC. Condition at Discharge: Stable Final Diagnosis/Problems List schizophrenia acute on chronic hypoxic resp failure copd exac auditory and visual hallucinations- was noncompliant with meds and oxygen- improved continue current psych meds and adhere to oxygen use smoking cessation Discharge Disposition: Home Discharge Instruct/Medications Diet: Regular Activity: No Restrictions, As Tolerated Follow Up/Referral: pcp 1 week psychiatry outpatient leandro Scheduled Benztropine Mesylate (Benztropine Mesylate), 1 MG PO BID Divalproex Sodium (Divalproex Sodium), 500 MG PO BID Haloperidol (Haldol), 3 MG PO BID Trazodone Hcl (Trazodone Hcl), 75 MG PO HS Scheduled PRN Albuterol Sulfate (Albuterol Sulfate Hfa), 108 MCG IN Q4HP PRN Miscellaneous Medications Albuterol Sulfate (Albuterol Sulfate (5 mg/ml) 0.5%), 1 NEB IN, (Reported) Discontinued Medications Acetaminophen (Acetaminophen), 325 MG PO Q6HR PRN Acetaminophen (Acetaminophen), 500 MG PO Q4HP PRN Acetaminophen (Acetaminophen), 500 MG PO Q4HPRN Albuterol Sulfate (Albuterol Sulfate), 1 VIAL NEB Q4HPRN PRN Albuterol Sulfate (Albuterol Sulfate Hfa), 108 MCG IN Q6HP PRN Baclofen (Baclofen), 1 TAB PO TID Cyclobenzaprine Hcl (Cyclobenzaprine Hcl), 10 MG PO, (Reported) Desmopressin Acetate (Ddavp Nasal), 1 SPR TONY DAILY Doxycycline (Monohydrate) (Doxycycline), 100 MG PO BID Fosfomycin Tromethamine (Fosfomycin Tromethamine), 3 GM PO ONCE Ibuprofen (Ibuprofen), 1 TAB PO Q6HP PRN Ibuprofen (Ibuprofen), 1 TAB PO TID Levofloxacin Hemihydrate (Levofloxacin), 750 MG PO DAILY Lorazepam (Ativan Tablet), 0.5 MG PO Q4HPRN PRN for ANXIETY, (Reported) Midodrine HCl (Midodrine HCl), 10 MG, (Reported) Nitrofurantoin (Nitrofurantoin), 100 MG PO BID Nitrofurantoin Monohydrate Mac (Macrobid), 100 MG PO BID Olanzapine (Olanzapine), 10 MG PO [id number] PRN Ondansetron Odt 4MG Tab (Zofran Po), 4 MG PO TIDPRN PRN Pantoprazole Sodium Sesquihydr (Protonix), 40 MG PO DAILY, (Reported) Prednisone (Prednisone), 20 MG PO BID Discharge Statement: "Patient was advised to return to the ER or call 911 if any headaches, dizziness, shortness of breath, chest pain, abdominal pain, bleeding, fevers, or worsening of medical condition. Patient was counseled about treatment plan, medications, possible side effects, patientverbalized understanding. All questions were answered to the best of my ability. This discharge took greater then 30 minutes in planning, reviewing documentation, counseling the patient, and discussing with other team members." ASSESSMENT ASSESSMENT Assessment schizophrenia acute on chronic hypoxic resp failure copd exac auditory and visual hallucinations- was noncompliant with meds and oxygen- improved continue current psych meds and adhere to oxygen use smoking cessation JOYA PLATT NP May 19, 2025 12:12
--- NOTE | 2025-05-19 20:27 | DVHPN2 ---
Progress Note - Dictate Date Seen: May 19, 2025 Medical Necessity Reason Pt with a Central, PICC or Fol: No Subjective Patient seen and examined at bedside. Remains on supplemental oxygen Overnight events reviewed. vital signs Vital Sign Date Time Temp Pulse Resp B/P (MAP) Pulse Ox O2 Delivery O2 Flow Rate FiO2 05/19/25 20:00 Nasal Cannula* 2 28 05/19/25 17:00 98.2 90 18 96/58 (71) 91 98.2 medications Current Medications Medications Dose Ordered Sig/Elaine Route Start Time Stop Time Status Last Admin Dose Admin Temazepam 15 mg QHSP PRN PO 05/15/25 11:15 Ondansetron HCl 4 mg Q4HP PRN IV 05/15/25 11:15 Enoxaparin Sodium 40 mg DAILY SC 05/16/25 10:00 05/19/25 10:57 40 MG Acetaminophen 650 mg Q6HP PRN PO 05/15/25 11:15 05/19/25 15:06 650 MG Morphine Sulfate 2 mg Q4HPRN PRN IV 05/15/25 11:15 Nitroglycerin 0.4 mg Q5MINP PRN SL 05/15/25 11:15 Morphine Sulfate 2 mg Q30M PRN IV 05/15/25 11:15 Albuterol 2.5 mg Q4HWA NEB 05/15/25 14:00 05/19/25 14:28 2.5 MG Ipratropium Goodell 0.5 mg Q4HWA NEB 05/15/25 14:00 05/19/25 14:28 0.5 MG Budesonide 0.5 mg BID NEB 05/15/25 22:00 05/19/25 06:30 0.5 MG Olanzapine 10 mg [id number] PRN PO 05/15/25 11:15 05/15/25 15:46 10 MG Pantoprazole Sodium 40 mg DAILY PO 05/16/25 10:00 05/19/25 10:54 40 MG Trazodone HCl 75 mg HS PO 05/15/25 22:00 05/18/25 21:30 75 MG Divalproex Sodium 500 mg BID PO 05/15/25 22:00 05/19/25 10:53 500 MG Prednisone 20 mg BID PO 05/17/25 22:00 05/24/25 21:59 05/19/25 10:52 20 MG Haloperidol 3 mg BID PO 05/17/25 22:00 05/19/25 10:55 3 MG Lorazepam 0.5 mg Q4HPRN PRN PO 05/17/25 15:30 05/17/25 16:19 0.5 MG Patient Own Medication 1 mg BID PO 05/17/25 22:00 UNV Benztropine Mesylate 1 mg BID PO 05/17/25 22:00 05/19/25 10:53 1 MG objective Gen.: Patient lying in bed in no apparent distress. On supplemental oxygen. Head: Normocephalic, atraumatic. Eyes: EOMI/PERRLA. Ears: Normal hearing. Normal anatomy. Neck/trachea: Trachea midline, supple. Nose: Normal external anatomy. Mouth: Moist mucous membranes. Chest: Decreased air entry bilaterally. No wheezing or rhonchi. Cardiovascular: Positive S1, positive S2. Regular rate and rhythm. Abdomen: Positive bowel sounds in all 4 quadrants. Soft, non-tender, non- distended. : Deferred. Rectal: Deferred. Skin: Warm, dry. Intact. Extremities: 2+ radial pulses bilaterally. No lower extremity edema. Neuro: Awake, alert, oriented x3. No gross motor or sensory deficits. Cranial nerves II through XII intact. Gait not assessed. laboratory and microbiology Laboratory Tests 05/16/25 10:53 Test 05/16/25 10:53 Range/Units Serum Glucose 113 H 74-106 mg/dL Assessment/Plan Impression: Acute hypoxic respiratory failure Dependence on supplemental oxygen Acute COPD exacerbation Bipolar disorder Schizophrenia Events: Improved oxygen requirements On supplemental oxygen, 2 LPM NC Taper O2 as tolerated No overnight events. Continue bronchodilators/Pulmicort Complete steroid course- on prednisone 20 mg PO BID Continue antibiotics, complete course Continue Lovenox for DVT ppx Protonix for GI ppx Patient is stable for discharge from the pulmonary standpoint. Disposition per hospitalist. Labs and imaging reviewed. Rest of plan as noted below. Plan: Supplemental oxygen Titrate to keep O2 sats above 92%. CXR on 05/14/25 reveals hyperexpansion of the lungs and relative lucency of the upper lungs, greater on the right which can be due to COPD/emphysema. Prominence of the main pulmonary artery which can be seen in the setting of pulmonary hypertension. Continue bronchodilators. Continue steroids Incentive spirometry Follow up Psych recommendations Monitor renal function. Monitor electrolytes. Supplement as necessary. Monitor ins and outs. GI/DVT prophylaxis. Prognosis: Poor given patient's multiple co-morbidities. Rest of plan per hospitalist and other consultants. Thank you, CLINICAL DOCUMENT IMPROVEMENT EDUCATOR William Ghotra, for allowing me to participate in this patient's care. Further recommendations will depend on the patient's clinical course. Please do not hesitate to contact me if you have any questions or concerns. This medical document was created using an electronic medical record system with [employer] dictation system. Although these documentations are being carefully reviewed, there may still be some phonetic and typographical changes. The errors are purely typographical, due to imperfection on the software program, and do not reflect any compromise in the patient's medical care. Dietary Evaluation Review Comments: 1. encourage PO intake, offer Ensure HP 240ml PO BID supplements 2. smoking cessation, cousneling if possible Expected Outcomes/Goals: Gradual wt gain and improved nutrition overall status Plan discussed with: Patient, Other (RN) BRITANY MEDRANO MD May 19, 2025 20:27
== END 2025-05-19 21:45 | disposition home or self-care (01) | DRG 140 ==
LOC: EDBD 21:28 → ER 21:28 → OVERFLOW 05-15 11:10 → TELE-CENTR 05-17 02:08
PROVIDERS: ADMIT Nurse Practitioner Family; ATTEND Nurse Practitioner Family
DX: J44.1 Chronic obstructive pulmonary disease with (acute) exacerbation (principal); J96.21 Acute and chronic respiratory failure with hypoxia; Z99.81 Dependence on supplemental oxygen; F20.9 Schizophrenia, unspecified; F31.9 Bipolar disorder, unspecified; J43.9 Emphysema, unspecified; Z81.8 Family history of other mental and behavioral disorders; Z87.891 Personal history of nicotine dependence; Z88.1 Allergy status to other antibiotic agents; Z79.899 Other long term (current) drug therapy; Z82.5 Family history of asthma and other chronic lower respiratory diseases; Z91.52 Personal history of nonsuicidal self-harm; Z91.148 Patient's other noncompliance with medication regimen for other reason
CPT/HCPCS: 36415; 36600; 71045; 80053; 82805; 83880; 84484; 85025; 86803; 87081; 87340; 93005; 94640; 99291; G0378

== ENCOUNTER 2025-05-30 21:56 | Emergency (ER) | payer OTHER ==
[~2025-05-30] VITALS: Ht 152.4 cm; Wt 54.5 kg
[~2025-05-30 21:56] MED LIST changes: -ACET-2058 PO; -ACET500T58 PO; -BACL20TA PO; -CYCL-839 PO; -DESNSL NAS; -DOXY1CAP58 PO; -FOSF3POW PO; -IBUP-1454 PO; -IBUP-1456 PO; -LEVO750T40 PO; -LORA-1121 PO; -MID10T; -NITR-52 PO; -NITR-87 PO; -OLAN1TAB7 PO; -PANT40TA2 PO; -ZOFR4T PO
[2025-05-30 22:05] VITALS: BP 121/78; PULSE 83; TEMP 98.1
--- NOTE | 2025-05-30 23:51 | ED.PDOC ---
History of Present Illness HPI Comments 55-year-old female who presents with chief complaint of abdominal pain, nausea, and vomiting. Patient reports on 2 day history of progressively worsening symptoms.Significant history for bipolar disorder, COPD on home oxygen, cholelithiasis, schizophrenia, and UTIs. Patient denies having any bloody or bilious vomitus, diarrhea, constipation, or further associated symptoms. REVIEW OF SYSTEMS: General: No fever, no chills, or fatigue HEENT: No sore throat, no earache, no congestion, no neck pain. Cardiac: No chest pain. No palpitations. Lungs: No shortness of breath, no cough. GI: Abdominal pain, nausea, vomiting, no diarrhea, no constipation : No dysuria, frequency, or urgency. No hematuria. Musculoskeletal: No joint pain , no joint swelling, no extremity edema. Skin: No rash, no itching. Neuro: No headache, no dizziness, no weakness PHYSICAL EXAM: General: Awake, alert and oriented. No acute distress. Skin: Skin in warm, dry and intact. Appropriate color for ethnicity. HEENT: The head is normocephalic and atraumatic. Conjunctivae are clear without exudates or hemorrhage. Sclera is non-icteric. EOM are intact. No signs of nystagmus. Eyelids are normal in appearance without swelling or lesions. Oral mucosa is pink and moist Neck: The neck is supple with normal range of motion. No JVD. Cardiac: Heart rate and rhythm are normal. No murmurs, gallops, or rubs are auscultated. Respiratory: Nasal cannula in place. No signs of respiratory distress. Lung sounds are clear in all lobes bilaterally without rales, rhonchi, or wheezes. Abdominal: Mild general abdominal tenderness. Mild distention. No guarding or rigidity. Bowel sounds are present and normoactive in all four quadrants. Extremities: Upper and lower extremities are atraumatic in appearance without deformity or edema. Neurological: The patient is awake, alert and oriented to person, place, and time with normal speech. Speech is clear. There is no facial asymmetry. Psychiatric: Appropriate mood and affect. Good judgement and insight. Chief Complaint: Abdominal Pain Time Seen by MD: 23:00 Primary Care Provider: UNKNOWN Reviewed Notes: Nurses Notes, Medications, Allergies Allergies: Coded Allergies: Lactose (Verified Allergy, Severe, 11/15/24) Azithromycin (Verified Allergy, Unknown, 05/11/25) Home Meds Active Scripts Divalproex Sodium (Divalproex Sodium) 500 Mg Tab, 500 MG PO BID for 30 Days, #60 MG Prov:JOYA PLATT FOOTWEAR STITCHER 05/19/25 Haloperidol (Haldol) 5 Mg Tb, 3 MG PO BID for 30 Days, #60 MG Prov:JOYA PLATT FOOTWEAR STITCHER 05/19/25 Benztropine Mesylate (Benztropine Mesylate) 1 Mg Tab, 1 MG PO BID for 30 Days, #60 MG Prov:JOYA PLATT FOOTWEAR STITCHER 05/19/25 Trazodone Hcl (Trazodone Hcl) 50 Mg Tab, 75 MG PO HS for 30 Days, #45 MG Prov:JOYA PLATT FOOTWEAR STITCHER 05/19/25 Albuterol Sulfate (Albuterol Sulfate Hfa) 108 Mcg/Act Aer, 108 MCG IN Q4HP PRN for 30 Days, #1 AER 2 puffs inhalation Prov:JOYA PLATT FOOTWEAR STITCHER 05/13/25 Reported Medications Albuterol Sulfate (Albuterol Sulfate (5 mg/ml) 0.5%) 1 Neb Neb, 1 NEB IN, INH 10/19/24 Information Source: Patient Mode of Arrival: EMS Past Medical History PAST MEDICAL HISTORY: COPD, Gallstones, Schizophrenia, UTI'S Surgical History: Denies all surgeries HOSPICE VOLUNTEER History: Denies all HOSPICE VOLUNTEER Hx Family History Family History: Reviewed,noncontributory to illness Social History Smoker: Quit Less Than 1 Year, Cigarettes Alcohol: Denies ETOH Use Drugs: Denies Drug Use Lives In: Assisted Care Was a procedure done? Was a procedure done?: No Differential Dx Considerations may include: Differential diagnoses considered include: Abdominal aortic aneurysm, ME, esophageal rupture, intestinal obstruction, mesenteric ischemia, perforated viscus or solid organ rupture, CHF with hepatomegaly, pneumonia, abscess, appendicitis, biliary disease, diverticulitis, gastritis, gastroenteritis, hepatitis, hernia, inflammatory bowel disease, pancreatitis, peptic ulcer disease, urinary tract infection, ureteral colic, constipation, GERD, irritable syndrome, abdominal wall pain, nonspecific abdominal pain, herpes zoster, nephrolithiasis. X-Ray, Labs, Meds, VS Vital Signs Date Time Temp Pulse Resp B/P (MAP) Pulse Ox O2 Delivery O2 Flow Rate FiO2 05/31/25 02:40 20 94 Nasal Cannula* 2 28 05/30/25 22:05 98.1 83 18 121/78 100 98.1 Lab Test 05/30/25 23:55 Range/Units White Blood Count 9.4 4.4-10.8 10^3/uL Red Blood Count 4.69 4.0-5.20 10^6/uL Hemoglobin 14.9 12.2-16.2 g/dL Hematocrit 44.5 36.0-46.0 % Mean Corpuscular Volume 94.8 80.0-100.0 fL Mean Corpuscular Hemoglobin 31.6 28.0-32.0 pg Mean Corpuscular Hemoglobin Concent 33.4 32.0-36.0 g/dL Red Cell Distribution Width 15.0 H 11.8-14.3 % Platelet Count 189 140-450 10^3/uL Mean Platelet Volume 8.2 6.9-10.8 fL Neutrophils (%) (Auto) 83.2 H 37.0-80.0 % Lymphocytes (%) (Auto) 10.1 10.0-50.0 % Monocytes (%) (Auto) 5.8 0.0-12.0 % Eosinophils (%) (Auto) 0.7 0.0-7.0 % Basophils (%) (Auto) 0.2 0.0-2.0 % Neutrophils # (Auto) 7.8 1.6-8.6 10 ^3/uL Lymphocytes # (Auto) 0.9 0.4-5.4 10 ^3/uL Monocytes # (Auto) 0.5 0-1.3 10 ^3/uL Eosinophils # (Auto) 0.1 0-0.8 10 ^3/uL Basophils # (Auto) 0 0-0.2 10 ^3/uL Nucleated Red Blood Cells 0.0 % Sodium Level 140 136-145 mmol/L Potassium Level 4.1 3.5-5.1 mmol/L Chloride Level 101 98-107 mmol/L Carbon Dioxide Level 32 H 20-31 mmol/L Anion Gap 7 5-15 Blood Urea Nitrogen 7 L 9-23 mg/dL Creatinine 0.58 0.550-1.02 mg/dL Glomerular Filtration Rate Calc 106 >90 mL/min BUN/Creatinine Ratio 12.1 10.0-20.0 Serum Glucose 103 74-106 mg/dL Calcium Level 8.7 8.7-10.4 mg/dL Current Medications Medications (Trade) Dose Ordered Sig/Elaine Route Start Time Stop Time Status Last Admin Albuterol (Ventolin Medneb) 2.5 mg ONCE ONCE NEB 05/31/25 02:30 05/31/25 02:31 DC 05/31/25 02:[address] [address] Ph: [phone] DIAGNOSTIC IMAGING Diagnostic Imaging Report : [id number] Signed PATIENT: NATIVIDAD URBAN ACCT: [id number] UNIT: [id number] : 1970 LOC: ER ROOM / BED: / AGE / SEX: 55 / F ADM STATUS: REG ER SERVICE 02 ORDERING PHYSICIAN: ANGELITO REYES MD PROCEDURE(s): KUB - KUB ABDOMEN SINGLE VIEW REASON: constipation, abdominal pain ORDER NUMBER(s): [id number], ACCESSION NUMBER(s): [id number] Exam: XY KUB ABDOMEN SINGLE VIEW Indication: constipation, abdominal pain Comparison: None Technique: 1 radiographic views of the abdomen. Findings: Nonobstructive bowel gas pattern. No large stool burden. Paucity of small bowel gas. The lower chest is unremarkable. No acute osseous finding. Impression: 1. Nonobstructive bowel gas pattern. No significant stool. ATED BY: MARTINA FREEMAN MD DICTATED DATE/TIME: 05/30/252356 SIGNED BY: MARTINA FREEMAN MD SIGNED DATE/TIME: 05/30/252356 CC: Time of 1ST Reevaluation: 23:30 Reevaluation 1ST: Unchanged Patient Education/Counseling: Treatment, Need For Follow Up Family Education/Counseling: No Family Present SEPSIS Sepsis Screen Date sepsis recognized/suspect: May 30, 2025 Time Sepsis recognized/suspect: 2201 Recent Procedure: No On Antibiotic Therapy: No Respiratory Rate >20: No Heart Rate >90: No Temp<36 C (96.8 F) or >38.3 C: No SBP <90 or MAP <65 mmHG: No New Acute Mental Status Change: No Is the patient on CPAP, BIPAP,: No Physician Orders Kub Abdomen Single View (05/30/25 23:03) Vital Signs Date Time Temp Pulse Resp B/P (MAP) Pulse Ox O2 Delivery O2 Flow Rate FiO2 05/31/25 02:40 20 94 Nasal Cannula* 2 28 05/30/25 22:05 98.1 83 18 121/78 100 98.1 Laboratory Tests Test 05/30/25 23:55 White Blood Count 9.4 10^3/uL (4.4-10.8) Medications Medications Dose Ordered Sig/Elaine Route Start Time Stop Time Status Last Admin Dose Admin Albuterol 2.5 mg ONCE ONCE NEB 05/31/25 02:30 05/31/25 02:31 DC 05/31/25 02:37 Departure 1 Departure Time of Disposition: 03:22 Impression: Primary Impression: Abdominal pain Disposition: HOME / SELF CARE / HOMELESS Condition: Stable Additional Instructions: ED DISCHARGE INSTRUCTIONS Instructions: Please read all instructions provided in this packet carefully. Although you have been discharged from the Emergency Department, this does not mean that you have a "clean bill of health". No definitive diagnosis for your symptoms has been made today. It is possible that you are in the process of developing a serious illness. This is why you must return to the ED without fail if any new or worsening symptoms (especially if your symptoms include chest pain, trouble breathing, abdominal pain, fever, headache, confusion, trouble seeing, or trouble walking) It is also very important that you see a primary care provider (PCP) within the next 1-3 days to follow up. If you are unable to get an appointment, return to the ED for re-evaluation. Abdominal Pain: Care Instructions Overview Abdominal pain has many possible causes. Some aren't serious and get better on their own in a few days. Others need more testing and treatment. If your pain continues or gets worse, you need to be rechecked and may need more tests to find out what is wrong. You may need surgery to correct the problem. Don't ignore new symptoms, such as fever, nausea and vomiting, urination problems, pain that gets worse, and dizziness. These may be signs of a more serious problem. If you are not getting better, you may need more tests or treatment. The doctor has checked you carefully, but problems can develop later. If you notice any problems or new symptoms, get medical treatment right away. Follow-up care is a quiros part of your treatment and safety. Be sure to make and go to all appointments, and call your doctor if you are having problems. It's also a good idea to know your test results and keep a list of the medicines you take. How can you care for yourself at home? Rest until you feel better. To prevent dehydration, drink plenty of fluids. Choose water and other clear liquids until you feel better. If you have kidney, heart, or liver disease and have to limit fluids, talk with your doctor before you increase the amount of fluids you drink. When you feel like eating, start with small amounts. Do not have alcohol, caffeine, or spicy, hot, or high-fat foods for a day or two. Avoid anti-inflammatory medicines such as aspirin, ibuprofen (Advil, Motrin), and naproxen (Aleve). These can cause stomach upset. Talk to your doctor if you take daily aspirin for another health problem. When should you call for help? Call 911 anytime you think you may need emergency care. For example, call if: You passed out (lost consciousness). You pass maroon or very bloody stools. You vomit blood or what looks like coffee grounds. You have severe belly pain. Call your doctor now or seek immediate medical care if: Your pain gets worse, especially if it becomes focused in one area of your belly. You have a new or higher fever. Your stools are black and look like tar, or they have streaks of blood. You have unexpected vaginal bleeding. You have symptoms of a urinary tract infection. These may include: Pain when you urinate. Urinating more often than usual. Blood in your urine. You are dizzy or lightheaded, or you feel like you may faint. Watch closely for changes in your health, and be sure to contact your doctor if: You are not getting better as expected. Credits for Abdominal Pain: Care Instructions Current as of: July 04, 2023 Author: Diana [employer] Staff Clinical Review Board All [employer] education is reviewed by a team that includes physicians, nurses, advanced practitioners, registered dieticians, and other healthcare professionals. Comments MDM: 55-year-old female presented with generalized abdominal pain. No peritoneal signs on abdominal exam. No evidence of acute abdomen at this time. patient is well appearing. Labs show no leukocytosis. KUB shows nonobstructive bowel gas pattern. Patient is afebrile. Patient is not hypotensive. Low suspicion for acute hepatobiliary disease (including acute cholecystitis, acute pancreatitis, PUD (including perforation), acute infectious process (pneumonia, hepatitis, pyelonephritis), acute appendicitis, vascular catastrophe, bowel obstructions, viscous perforation. Presentation not consistent with other acute, emergent causes of abdominal pain at this time. Extensive evaluation was performed in attempt to identify or rule out: (See differential diagnosis section) The following tests were ordered, and results were reviewed by me and discussed with patient: (See diagnostic results section) The following test were independently interpreted by me: N/A I reviewed and agreed with the following test results read by other providers: KUB abdomen I reviewed the following notes from the pt's past medical encounters: May 11, 2025 and May 15, 2025 encounters for COPD exacerbation acute hypoxic respiratory failure, respectively Decision regarding hospitalization or escalation of hospital level of care: Risks and benefits of admission for further treatment of patient's condition was considered however due to patient's stable condition patient will be discharged to follow up closely or return to care for worsening of condition or inability to follow up. Critical Care Note Critical Care Time?: No Stability Stability form required: No Heart Score Heart Score: Heart Score Response (Comments) Value History N/A 0 EKG N/A 0 Age N/A 0 Risk Factors N/A 0 Troponin N/A 0 Total 0 I personally scribed for ANGELITO REYES MD ([email or web address]) on 05/30/25 at 23:51. Electronically submitted by Devin Huerta ([email or web address]). I personally scribed for ANGELITO REYES MD ([email or web address]) on 05/31/25 at 02:02. Electronically submitted by Devin Huerta ([email or web address]). ANGELITO REYES MD May 30, 2025 23:51
--- NOTE | 2025-05-30 23:59 | DVH ---
Exam: XY KUB ABDOMEN SINGLE VIEW Indication: constipation, abdominal pain Comparison: None Technique: 1 radiographic views of the abdomen. Findings: Nonobstructive bowel gas pattern. No large stool burden. Paucity of small bowel gas. The lower chest is unremarkable. No acute osseous finding. Impression: 1. Nonobstructive bowel gas pattern. No significant stool.
[2025-05-31 00:22] LABS: Hematocrit 44.5 % (36.0-46.0); Hemoglobin 14.9 g/dL (12.2-16.2); Mean Corpuscular Hemoglobin 31.6 pg (28.0-32.0); Mean Corpuscular Volume 94.8 fL (80.0-100.0); Nucleated Red Blood Cells % 0.0 %
[2025-05-31 00:43] LABS: Chloride 101 mmol/L (98-107); Potassium 4.1 mmol/L (3.5-5.1); Sodium 140 mmol/L (136-145)
[2025-05-31 00:44] LABS: Anion Gap 7 (5-15)
[2025-05-31 00:45] LABS: Calcium 8.7 mg/dL (8.7-10.4)
[2025-05-31 00:47] LABS: Carbon Dioxide 32 mmol/L (20-31)
[2025-05-31 00:50] LABS: BUN/Creatinine Ratio 12.1 (10.0-20.0); Glucose 103 mg/dL (74-106)
[2025-05-31 00:53] LABS: Blood Urea Nitrogen 7 mg/dL (9-23)
[2025-05-31] MEDS ORDERED: ALBUTEROL SULF 2.5 MG/0.5ML(0.5%) NEB SOLN ONE (02:35)
[2025-05-31] MEDS: ALBUTEROL SULF 2.5 MG/0.5ML(0.5%) NEB SOLN NEB ONE (02:37)
[2025-05-31 02:40] VITALS: RESP 20; O2SAT 94
[2025-05-31] MEDS: ACETAMINOPHEN 500 MG TAB or CAP PO ONE (06:31)
== END 2025-05-31 06:40 | disposition home or self-care (01) ==
LOC: ER 21:56 → EDBD 21:56 → ER 05-31 06:40
DX: R10.9 Unspecified abdominal pain (principal); J44.9 Chronic obstructive pulmonary disease, unspecified; Z79.899 Other long term (current) drug therapy
CPT/HCPCS: 36415; 74018; 80048; 85025; 94640

== ENCOUNTER 2025-06-09 02:52 | Emergency (ER) | payer OTHER ==
[~2025-06-09] VITALS: Ht 162.6 cm; Wt 54.0 kg
--- NOTE | 2025-06-09 03:25 | ED.PDOC ---
Psychiatric HPI Comments 55-year-old female with a history of schizophrenia presents to the emergency department because she does not like her jail that she is [facility]. No suicidal or homicidal ideations. Chief Complaint: Mental Health Time Seen by MD: 03:04 Primary Care Provider: UNKNOWN Reviewed Notes: Nurses Notes Information Source: Patient Mode of Arrival: EMS Timing: Days Duration: Since onset Past Medical History PAST MEDICAL HISTORY: COPD, Gallstones, Schizophrenia, UTI'S Surgical History: Denies all surgeries LABOR RELATIONS WORKER History: Denies all LABOR RELATIONS WORKER Hx Family History Family History: Reviewed,noncontributory to illness Social History Smoker: Quit Less Than 1 Year, Cigarettes Alcohol: Denies ETOH Use Drugs: Denies Drug Use Lives In: Assisted Care Psychiatric: reports: schizophrenia, sleepless All Other Systems: Reviewed and Negative Physical Exam General Appearance: Mild Distress HEENT: Normal ENT Inspection, Pharynx Normal, TMs Normal Neck: Full Range of Motion, Non-Tender, Normal, Normal Inspection Respiratory: Chest Non-Tender, Lungs Clear, No Accessory Muscle Use, No Respiratory Distress, Normal Breath Sounds Cardiovascular: No Edema, No JVD, No Murmur, No Gallop, Normal Peripheral Pulses, Regular Rate/Rhythm Breast Exam: Deferred Gastrointestinal: No Organomegaly, Non Tender, No Pulsatile Mass, Normal Bowel Sounds, Soft Genitalia: Deferred Pelvic: Deferred Rectal: Deferred Extremities: No calf tenderness, Normal capillary refill, Normal inspection, Normal range of motion, Non-tender, No pedal edema Musculoskeletal : Apperance: Normal Neurologic: Normal Mood, Other (odd affect, no SI, no HI) Cerebellar Function: Normal Reflexes: Normal Skin: Dry, Normal Color, Warm Lymphatic: No Adenopathy Was a procedure done? Was a procedure done?: No Psych Differential Dx Psych. Differential Dx: Depression, Panic Disorder, Schizoprenia, Sleepless, Suicidal, Other OD Differential Dx: Alcohol Abuse, Delirium X-Ray, Labs, Meds, VS Vital Signs Date Time Temp Pulse Resp B/P (MAP) Pulse Ox O2 Delivery O2 Flow Rate FiO2 06/09/25 02:54 97.9 88 16 129/64 98 97.9 Lab Test 06/09/25 03:25 Range/Units White Blood Count 7.3 4.4-10.8 10^3/uL Red Blood Count 4.86 4.0-5.20 10^6/uL Hemoglobin 15.6 12.2-16.2 g/dL Hematocrit 46.9 H 36.0-46.0 % Mean Corpuscular Volume 96.6 80.0-100.0 fL Mean Corpuscular Hemoglobin 32.2 H 28.0-32.0 pg Mean Corpuscular Hemoglobin Concent 33.3 32.0-36.0 g/dL Red Cell Distribution Width 15.4 H 11.8-14.3 % Platelet Count 186 140-450 10^3/uL Mean Platelet Volume 8.7 6.9-10.8 fL Neutrophils (%) (Auto) 62.7 37.0-80.0 % Lymphocytes (%) (Auto) 26.3 10.0-50.0 % Monocytes (%) (Auto) 9.3 0.0-12.0 % Eosinophils (%) (Auto) 1.2 0.0-7.0 % Basophils (%) (Auto) 0.5 0.0-2.0 % Neutrophils # (Auto) 4.6 1.6-8.6 10 ^3/uL Lymphocytes # (Auto) 1.9 0.4-5.4 10 ^3/uL Monocytes # (Auto) 0.7 0-1.3 10 ^3/uL Eosinophils # (Auto) 0.1 0-0.8 10 ^3/uL Basophils # (Auto) 0 0-0.2 10 ^3/uL Nucleated Red Blood Cells 0.2 % Sodium Level 139 136-145 mmol/L Potassium Level 3.9 3.5-5.1 mmol/L Chloride Level 103 98-107 mmol/L Carbon Dioxide Level 30 20-31 mmol/L Anion Gap 6 5-15 Blood Urea Nitrogen 6 L 9-23 mg/dL Creatinine 0.60 0.550-1.02 mg/dL Glomerular Filtration Rate Calc 105 >90 mL/min BUN/Creatinine Ratio 10.0 10.0-20.0 Serum Glucose 87 74-106 mg/dL Calcium Level 9.4 8.7-10.4 mg/dL Total Bilirubin 0.4 0.2-1.0 mg/dL Aspartate Amino Transferase (AST) 17 13-40 U/L Alanine Aminotransferase (ALT) 13 7-40 U/L Alkaline Phosphatase 88 46-116 U/L Total Protein 6.8 5.7-8.2 g/dL Albumin 4.7 3.2-4.8 g/dL Salicylates Level < 3.0 -30 mg/dL Acetaminophen Level < 2.0 L 10.0-20.0 UG/ML Plasma/Serum Blood Alcohol < 3.0 <10 mg/dL Time of 1ST Reevaluation: 03:24 Reevaluation 1ST: Unchanged Patient Education/Counseling: Diagnosis, Treatment Family Education/Counseling: No Family Present Departure 1 Departure Time of Disposition: 04:46 Impression: Primary Impression: History of schizophrenia Additional Impression: Schizophrenia [facility] Condition: Stable Discharged With: Self Comments Lab results reviewed. Patient is cleared medically at this time. Patient mainly presents to the emergency department due to not liking her jail that she is staying. I will try to initiate social sciences lecturer and psychiatric consult for possibly gravely disabled. Critical Care Note Critical Care Time?: No Stability Stability form required: No Heart Score Heart Score: Heart Score Response (Comments) Value History N/A 0 EKG N/A 0 Age N/A 0 Risk Factors N/A 0 Troponin N/A 0 Total 0 MANDY OJEDA MD Jun 09, 2025 03:25
[2025-06-09 04:07] LABS: Hematocrit 46.9 % (36.0-46.0); Hemoglobin 15.6 g/dL (12.2-16.2); Mean Corpuscular Hemoglobin 32.2 pg (28.0-32.0); Mean Corpuscular Volume 96.6 fL (80.0-100.0); Nucleated Red Blood Cells % 0.2 %
[2025-06-09 04:08] LABS: Alanine Aminotransferase 13 U/L (7-40); Albumin 4.7 g/dL (3.2-4.8); Alkaline Phosphatase 88 U/L (46-116); Anion Gap 6 (5-15); BUN/Creatinine Ratio 10.0 (10.0-20.0); Calcium 9.4 mg/dL (8.7-10.4); Carbon Dioxide 30 mmol/L (20-31); Chloride 103 mmol/L (98-107); Glucose 87 mg/dL (74-106); Potassium 3.9 mmol/L (3.5-5.1); Sodium 139 mmol/L (136-145); Total Protein 6.8 g/dL (5.7-8.2)
[2025-06-09 04:09] LABS: Bilirubin, Total 0.4 mg/dL (0.2-1.0)
[2025-06-09 04:13] LABS: Acetaminophen < 2.0 UG/ML (10.0-20.0); Salicylate < 3.0 mg/dL (-30)
[2025-06-09 04:14] LABS: Blood Urea Nitrogen 6 mg/dL (9-23)
--- NOTE | 2025-06-09 06:44 | DVHINCON2 ---
Date of Service if different f: Jun 09, 2025 Time of Service: 06:14 Consult Consult Note PSYCHIATRY ED NEW CONSULT HPI: 55 yo pt with PPH of depression and schizophrenia presents to ED BIBA for safety, psychiatric stabilization, and possible med initiation/optimization in setting of PI and psychosis. Psychiatry consulted for safety evaluation and recommendations in context of current presentation Pt p/w moderate thought disorder, confusion, disorganized speech, disorganized TP, paranoia staff at are overmedicating/poisoning her hence recently refusing psychotropics, emotional dysregulation, tearful, RTIS, impaired reality testing, mild agitation/irritability, delusional, poor sleep, anxiety, possible decline in self care, NC/NT AVH. Pt poor historian with limited J/I and appears to have baseline thought disorder in setting of SPMI dx Does not appear to have active outpt MH services established at this time although has CM services Currently rx'd Haldol and several other psychotropics she cannot recall, recent hx of med noncompliance noted VIVEK hx: Denies ETOH, THC or IDU prior to admission although some hx of THC/ETOH/meth dependency, sober for past several years SH: Single, 5 children?, unemployed/ssi, resides at for several years but expresses recent discontent. Unknown trauma hx FH: Denies FH of psych hospitalizations, suicide attempts, or completed suicides PMH: No acute medical/chronic pain issues although multiple ER visits in past for SOB. No hx of seizures/TBI, HIV/hep C, cardiac dz, or recent head injuries Denies hx of SI/SIB/SA/PSG although several prior psych hospitalizations/5150 holds for psychosis. Denies history of violence, aggression, or assaultive behaviors. Denies any legal problems. Does not have access to firearms MSE: General Appearance/Behavior: Alert/awake; appears older than stated age, marginal grooming/hygiene; somewhat calm/cooperative, tearful at times, fair eye contact Speech: incoherent/pressured at times Thought Process: loose/disorganized/illogical at times Thought Content: Abnormal Thoughts/Perceptions:denies dissociative symptoms Homicidality / Violent Thoughts: adamantly denies HI Suicidality: adamantly denies SI Hallucinations: +AVH Delusions: +PI Obsessions /compulsions: None Judgment/Insight: poor/limited Mood & Affect: "worried" with mood-congruent, somewhat labile/tearful Orientation: oriented x 3 Attention/Concentration:appears intact Cognition: grossly intact Assessment: 55 yo pt with PPH of depression and schizophrenia presents to ED BIBA for safety, psychiatric stabilization, and possible med initiation/optimization in setting of PI and psychosis. P/w moderate thought disorder, confusion, disorganized speech, disorganized TP, paranoia staff at are overmedicating/poisoning her hence recently refusing psychotropics, emotional dysregulation, tearful, RTIS, impaired reality testing, mild agitation/irritability, delusional, poor sleep, anxiety, possible decline in self care, NC/NT AVH. Pt poor historian with limited J/I and appears to have baseline thought disorder in setting of SPMI dx Recently noncompliance to psychotropics may be contributing to current symptoms Pt medically cleared in ED Pt is appropriate for inpatient psychiatric admission for further safety, psychiatric stabilization, and possible medication initiation/optimization. Pt willing to transfer to inpt psych facility voluntarily but recommend 5150 GD hold at this time due to current mental state Primary Diagnosis: Schizophrenia, disorganized type Recommend 5150 GD and transfer to inpt psych facility for higher level of care 1:1 sitter is recommended Maintain elopement precautions Recommend starting Risperdal 2 mg bid - first dose now PRN Haldol/ativan/benadryl or IM Geodon for agitation Risks/benefits/alternative treatments discussed, informed consent provided by pt Reconsult telepsych services if pt requests to be discharged from ED prior to transfer/upon hold expiration Pt verbalized understanding and is receptive to above tx plan This case was discussed with ED nurse/provider and all parties in agreement with above tx plan José Antonio Mccord MD Plan discussed with: Patient JOSÉ ANTONIO MCCORD MD Jun 09, 2025 06:44
[2025-06-09] MEDS: risperiDONE 1 MG TAB PO ONE (07:48)
[2025-06-09 12:07] VITALS: BP 114/81; PULSE 94; RESP 18; TEMP 98.2; O2SAT 96
== END 2025-06-09 14:01 ==
LOC: EDBD 02:52 → ER 02:52
DX: F20.9 Schizophrenia, unspecified (principal); J44.9 Chronic obstructive pulmonary disease, unspecified; Z91.199 Patient's noncompliance with other medical treatment and regimen due to unspecified reason; Z79.899 Other long term (current) drug therapy
CPT/HCPCS: 36415; 80053; 80320; 80329; 85025

== ENCOUNTER 2025-06-19 18:59 | Inpatient (IN) | payer OTHER ==
[~2025-06-19] VITALS: Ht 157.5 cm; Wt 49.1 kg
[2025-06-19] MEDS: ALBUTEROL SULF 2.5 MG/0.5ML(0.5%) NEB SOLN NEB ONE ×2 (19:09→19:10)
[2025-06-19] MEDS: ALBUTEROL SULF 2.5 MG/0.5ML(0.5%) NEB SOLN ONE (19:10)
--- NOTE | 2025-06-19 19:14 | ECG ---
[facility] Test Date: 2025-06-19 Test Time: 19:04:52 Pat Name: NATIVIDAD URBAN Department: Room: Gender: F Choker Setter: EMIR : 1970 Requested By: CRISELDA PATRICK Order Number: [id number] Reading MD: Measurements Intervals [place] Rate: 103 P: 85 ND: 124 QRS: 92 QRSD: 74 T: 81 QT: 328 QTc: 430 Interpretive Statements Sinus tachycardia Consider right atrial enlargement Anteroseptal infarct, age indeterminate Please click the below link to view image of tracing.
[2025-06-19 19:15] VITALS: PULSE 102; RESP 22; O2SAT 92
[2025-06-19] MEDS: MAGNESIUM SULFATE 1GM/100ML 100 ML IV ONE (19:15)
[2025-06-19] MEDS: methylPREDNISolone SOD SUCC 125 MG/2 ML VL IV ONE (19:15)
--- NOTE | 2025-06-19 19:23 | ED.PDOC ---
History of Present Illness HPI Comments 55 y/o F is BIBA for c/c of shortness of breath. Significant history of COPD and nicotine dependence. Denial of any chest pain, cough, congestion, wheezing, or further associated symptoms. Per EMS personnel report, patient was found with a SpO2 of 30%RA, using accessory muscles on scene, with absent lung sounds. En route, patient received 2x breathing treatments and was placed on CPAP, with improvement to SpO2 to 95%. Chief Complaint: Shortness of Breath Time Seen by MD: 19:00 Primary Care Provider: UNKNOWN Reviewed Notes: Nurses Notes, Medications, Allergies Allergies: Coded Allergies: Lactose (Verified Allergy, Severe, 11/15/24) Azithromycin (Verified Allergy, Unknown, 05/11/25) Home Meds Active Scripts Divalproex Sodium (Divalproex Sodium) 500 Mg Tab, 500 MG PO BID for 30 Days, #60 MG Prov:JOYA PLATT Kathleen LABORER TANBARK 05/19/25 Haloperidol (Haldol) 5 Mg Tb, 3 MG PO BID for 30 Days, #60 MG Prov:SAMUELJOYA MATHEWS Kathleen HUI 05/19/25 Benztropine Mesylate (Benztropine Mesylate) 1 Mg Tab, 1 MG PO BID for 30 Days, #60 MG Prov:JOYA PLATT Kathleen HUI 05/19/25 Trazodone Hcl (Trazodone Hcl) 50 Mg Tab, 75 MG PO HS for 30 Days, #45 MG Prov:JOYA PLATT Kathleen HUI 05/19/25 Albuterol Sulfate (Albuterol Sulfate Hfa) 108 Mcg/Act Aer, 108 MCG IN Q4HP PRN for 30 Days, #1 AER 2 puffs inhalation Prov:SAMUELJOYA MATHEWS Kathleen HUI 05/13/25 Reported Medications Albuterol Sulfate (Albuterol Sulfate (5 mg/ml) 0.5%) 1 Neb Neb, 1 NEB IN, INH 10/19/24 Information Source: Patient, Emergency Med Personnel Mode of Arrival: EMS Severity: Moderate Timing: Hours Duration: Since onset Prehospital treatment: 12 Lead EKG, Breathing Tx, Trombone Slide Assembler, C-Pap, Oxygen Past Medical History PAST MEDICAL HISTORY: COPD, Gallstones, Schizophrenia, UTI'S Surgical History: Denies all surgeries 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: Denies all STEMMING MACHINE OPERATOR Hx Family History Family History: Reviewed,noncontributory to illness Social History Smoker: Quit Less Than 1 Year, Cigarettes Alcohol: Denies ETOH Use Drugs: Denies Drug Use Lives In: Assisted Care All Other Systems: Reviewed and Negative (Comprehensive systems review obtained and negative except for what is stated in the HPI.) Physical Exam General Appearance: Moderate Distress, Thin HEENT: Normal ENT Inspection, Pharynx Normal, TMs Normal Neck: Full Range of Motion, Non-Tender, Normal, Normal Inspection Respiratory: Accessory Muscle Use, Respiratory Distress, Other (Coarse breath sounds) Cardiovascular: No Edema, No JVD, No Murmur, No Gallop, Normal Peripheral Pulses, Regular Rate/Rhythm Breast Exam: Deferred Gastrointestinal: No Organomegaly, Non Tender, No Pulsatile Mass, Normal Bowel Sounds, Soft Genitalia: Deferred Pelvic: Deferred Rectal: Deferred Extremities: No calf tenderness, Normal range of motion, No pedal edema Musculoskeletal : Apperance: Normal Neurologic: Alert, circulation clerk II-XII nml as Tested, No Motor Deficits, Normal Affect, Normal Mood, No Sensory Deficits Cerebellar Function: NOT DONE Reflexes: NOT DONE Skin: Normal Color Peripheral Pulses: 3+ Radial (R), 3+ Radial (L) Lymphatic: No Adenopathy Was a procedure done? Was a procedure done?: No EKG EKG : Pulse Rate (adult): 103 [place]: Normal Cardiac Rhythm: ST Block: None Hypertrophy: None ST: Normal Differential Dx Considerations may include: acute COPD exacerbation, URI, PNA, viral syndrome, MD, PE, among others X-Ray, Labs, Meds, VS Vital Signs Date Time Temp Pulse Resp B/P (MAP) Pulse Ox O2 Delivery O2 Flow Rate FiO2 06/19/25 21:50 98.1 72 18 106/68 (81) 97 98.1 06/19/25 21:12 98 24 98 06/19/25 21:06 100 23 92 06/19/25 21:06 92 Nasal Cannula 4.0 06/19/25 21:06 92 Nasal Cannula* 4 36 06/19/25 19:56 98.1 80 20 118/72 (87) 97 98.1 06/19/25 19:56 80 20 94 Nasal Cannula* 2 28 06/19/25 19:23 103 06/19/25 19:20 90 Nasal Cannula* 3 32 06/19/25 19:20 22 90 Nasal Cannula* 3 32 06/19/25 19:15 102 22 92 4.0 36 06/19/25 19:09 97.9 102 22 124/71 86 97.9 06/19/25 19:04 103 Lab Test 06/19/25 19:11 Range/Units White Blood Count 7.5 4.4-10.8 10^3/uL Red Blood Count 4.57 4.0-5.20 10^6/uL Hemoglobin 14.6 12.2-16.2 g/dL Hematocrit 43.8 36.0-46.0 % Mean Corpuscular Volume 95.9 80.0-100.0 fL Mean Corpuscular Hemoglobin 31.9 28.0-32.0 pg Mean Corpuscular Hemoglobin Concent 33.3 32.0-36.0 g/dL Red Cell Distribution Width 15.2 H 11.8-14.3 % Platelet Count 118 L 140-450 10^3/uL Mean Platelet Volume 8.7 6.9-10.8 fL Neutrophils (%) (Auto) 87.2 H 37.0-80.0 % Lymphocytes (%) (Auto) 5.4 L 10.0-50.0 % Monocytes (%) (Auto) 7.3 0.0-12.0 % Eosinophils (%) (Auto) 0.0 0.0-7.0 % Basophils (%) (Auto) 0.1 0.0-2.0 % Neutrophils # (Auto) 6.6 1.6-8.6 10 ^3/uL Lymphocytes # (Auto) 0.4 0.4-5.4 10 ^3/uL Monocytes # (Auto) 0.6 0-1.3 10 ^3/uL Eosinophils # (Auto) 0 0-0.8 10 ^3/uL Basophils # (Auto) 0 0-0.2 10 ^3/uL Nucleated Red Blood Cells 0.1 % Erythrocyte Sedimentation Rate Pending D-Dimer, Quantitative < 0.19 0.0-0.49 mg/L FEU Sodium Level 140 136-145 mmol/L Potassium Level 4.2 3.5-5.1 mmol/L Chloride Level 98 98-107 mmol/L Carbon Dioxide Level 36 H 20-31 mmol/L Anion Gap 6 5-15 Blood Urea Nitrogen 16 9-23 mg/dL Creatinine 0.60 0.550-1.02 mg/dL Glomerular Filtration Rate Calc 105 >90 mL/min BUN/Creatinine Ratio 26.7 H 10.0-20.0 Serum Glucose 162 H 74-106 mg/dL Calcium Level 9.0 8.7-10.4 mg/dL Troponin I High Sensitivity 4 </=34 ng/L C-Reactive Protein High Sensitivity 1.27 H <1.0 mg/dL Thyroid Stimulating Hormone (TSH) 1.07 0.55-4.78 uIU/mL Current Medications Medications (Trade) Dose Ordered Sig/Elaine Route Start Time Stop Time Status Last Admin Albuterol (Ventolin Medneb) 20 mg ONCE ONCE NEB 06/19/25 19:00 06/19/25 19:03 DC 06/19/25 19:09 Methylprednisolone Sodium Succinate (Solu Medrol) 125 mg ONCE ONCE IV 06/19/25 19:15 06/19/25 19:16 DC 06/19/25 19:15 Magnesium Sulfate/ Dextrose 100 ml @ 100 mls/hr ONCE ONCE IV 06/19/25 19:15 06/19/25 20:14 DC 06/19/25 19:15 [place] [address] Ph: [phone] DIAGNOSTIC IMAGING Diagnostic Imaging Report : [id number] Signed PATIENT: NATIVIDAD URBAN ACCT: [id number] UNIT: [id number] : 1970 LOC: ER ROOM / BED: / AGE / SEX: 55 / F ADM STATUS: REG ER SERVICE 190 ORDERING PHYSICIAN: CRISELDA PATRICK MD PROCEDURE(s): CXRP - CHEST PORTABLE REASON: sob ORDER NUMBER(s): [id number], ACCESSION NUMBER(s): [id number] CHEST RADIOGRAPH Indication: sob Technique: Single frontal view of the chest was obtained COMPARISON: XY CHEST PORTABLE on DOS: 05/14/25, XY CHEST PORTABLE on DOS: 05/11/25, XY CHEST PORTABLE on DOS: 10/19/24, XY CHEST PORTABLE on DOS: 10/18/24, XY CHEST XRAY 1 VIEW on DOS: 09/29/24 FINDINGS: Lines and Tubes: None Lungs: Chronic interstitial pulmonary fibrosis throughout both lungs. Probable superimposed pneumonia in the right lower lobe. Pleura: No effusion. No pneumothorax. Cardiomediastinal contours: Unremarkable Bones: Multiple chronic appearing right-sided rib deformities are seen. IMPRESSION: 1. Chronic interstitial pulmonary fibrosis throughout both lungs. 2. Probable superimposed pneumonia in the right lower lobe. ATED BY: GIANCARLO BEVERLY MD DICTATED DATE/TIME: 06/19/251942 SIGNED BY: GIANCARLO BEVERLY MD SIGNED DATE/TIME: 06/19/251942 CC: Patient alert. Came in for shortness a breath. Chest x-ray reviewed does show possible pneumonia. Placed on oxygen. Was given steroid. Was given magnesium. Was given breathing treatment. Reviewed her previous visit. Explained to patient she will be admitted. Time of 1ST Reevaluation: 19:30 Reevaluation 1ST: Unchanged Patient Education/Counseling: Diagnosis, Treatment, Need For Follow Up Family Education/Counseling: No Family Present SEPSIS Sepsis Screen Physician Orders Chest Portable (06/19/25 19:01) Urinalysis (06/19/25 19:01) Vital Signs Date Time Temp Pulse Resp B/P (MAP) Pulse Ox O2 Delivery O2 Flow Rate FiO2 06/19/25 21:50 98.1 72 18 106/68 (81) 97 98.1 06/19/25 21:12 98 24 98 06/19/25 21:06 100 23 92 06/19/25 21:06 92 Nasal Cannula 4.0 06/19/25 21:06 92 Nasal Cannula* 4 36 06/19/25 19:56 98.1 80 20 118/72 (87) 97 98.1 06/19/25 19:56 80 20 94 Nasal Cannula* 2 28 06/19/25 19:23 103 06/19/25 19:20 90 Nasal Cannula* 3 32 06/19/25 19:20 22 90 Nasal Cannula* 3 32 06/19/25 19:15 102 22 92 4.0 36 06/19/25 19:09 97.9 102 22 124/71 86 97.9 06/19/25 19:04 103 Laboratory Tests Test 06/19/25 19:11 White Blood Count 7.5 10^3/uL (4.4-10.8) Medications Medications Dose Ordered Sig/Elaine Route Start Time Stop Time Status Last Admin Dose Admin Albuterol 20 mg ONCE ONCE NEB 06/19/25 19:00 06/19/25 19:03 DC 06/19/25 19:09 Magnesium Sulfate/ Dextrose 100 ml @ 100 mls/hr ONCE ONCE IV 06/19/25 19:15 06/19/25 20:14 DC 06/19/25 19:15 Methylprednisolone Sodium Succinate 125 mg ONCE ONCE IV 06/19/25 19:15 06/19/25 19:16 DC 06/19/25 19:15 Departure 1 Departure Time of Disposition: 20:36 Impression: Primary Impression: Acute hypoxic respiratory failure Additional Impressions: COPD with acute exacerbation Pneumonia Qualified Codes: J18.9 - Pneumonia, unspecified organism Disposition: ADMITTED INPATIENT Admit to: Med Surg Condition: Guarded Critical Care Note Critical Care Time?: Yes (90 min-critical care time only) Stability Stability form required: No Heart Score Heart Score: Heart Score Response (Comments) Value History Slightly Suspicious 0 EKG Normal 0 Age 45-64 1 Risk Factors >3 or Hx ASHD 2 Troponin Normal limit 0 Total 3 I personally scribed for CRISELDA PATRICK MD ([email or web address]) on 06/19/25 at 19:23. Electronically submitted by Devin Huerta ([email or web address]). I personally scribed for CRISELDA PATRICK MD ([email or web address]) on 06/19/25 at 19:54. Electronically submitted by Devin Huerta ([email or web address]). I personally scribed for CRISELDA PATRICK MD ([email or web address]) on 06/19/25 at 22:54. Electronically submitted by Devin Huerta ([email or web address]). CRISELDA PATRICK MD Jun 19, 2025 19:23
[2025-06-19 19:26] LABS: Hematocrit 43.8 % (36.0-46.0); Hemoglobin 14.6 g/dL (12.2-16.2); Mean Corpuscular Hemoglobin 31.9 pg (28.0-32.0); Mean Corpuscular Volume 95.9 fL (80.0-100.0); Nucleated Red Blood Cells % 0.1 %
[2025-06-19 19:35] LABS: Potassium 4.2 mmol/L (3.5-5.1); Sodium 140 mmol/L (136-145)
[2025-06-19 19:36] LABS: Anion Gap 6 (5-15); Chloride 98 mmol/L (98-107)
[2025-06-19 19:37] LABS: Calcium 9.0 mg/dL (8.7-10.4); Carbon Dioxide 36 mmol/L (20-31)
[2025-06-19 19:42] LABS: BUN/Creatinine Ratio 26.7 (10.0-20.0); Blood Urea Nitrogen 16 mg/dL (9-23)
[2025-06-19 19:43] LABS: Glucose 162 mg/dL (74-106)
--- NOTE | 2025-06-19 19:45 | DVH ---
CHEST RADIOGRAPH Indication: sob Technique: Single frontal view of the chest was obtained COMPARISON: XY CHEST PORTABLE on DOS: 05/14/25, XY CHEST PORTABLE on DOS: 05/11/25, XY CHEST PORTABLE o n DOS: 10/19/24, XY CHEST PORTABLE on DOS: 10/18/24, XY CHEST XRAY 1 VIEW on DOS: 09/29/24 FINDINGS: Lines and Tubes: None Lungs: Chronic interstitial pulmonary fibrosis throughout both lungs. Probable superimposed pneumonia in the right lower lobe. Pleura: No effusion. No pneumothorax. Cardiomediastinal contours: Unremarkable Bones: Multiple chronic appearing right-sided rib deformities are seen. IMPRESSION: 1. Chronic interstitial pulmonary fibrosis throughout both lungs. 2. Probable superimposed pneumonia in the right lower lobe.
[2025-06-19 19:56] VITALS: PULSE 80; RESP 20; O2SAT 94
[2025-06-19 21:06] VITALS: PULSE 100; RESP 23; O2SAT 92
[2025-06-19] MEDS: IPRATROPIUM BROM 0.5 MG/2.5ML INH SOL NEB SCH (21:06)
[2025-06-19] MEDS: ALBUTEROL SULF 2.5 MG/0.5ML(0.5%) NEB SOLN NEB SCH (21:06)
[2025-06-19 21:12] VITALS: PULSE 98; RESP 24; O2SAT 98
[2025-06-19] MEDS ORDERED: NITROGLYCERIN 0.4 MG SL TAB SL PRN (22:00)
[2025-06-19] MEDS ORDERED: MORPHINE SULFATE INJ 2 MG/ml SYRG IV PRN (22:00)
[2025-06-19] MEDS: NICOTINE 14 MG/24HR TOPICAL PATCH TD ONE (22:15)
[2025-06-19] MEDS: ENOXAPARIN SOD 30 MG/0.3 ML SYRINGE SC ONE (22:15)
[2025-06-19] MEDS: PANTOPRAZOLE 40 MG TAB PO ONE (22:15)
--- NOTE | 2025-06-19 22:18 | DVHHP2 ---
History of Present Illness History of Present Illness Patient is 55-year-old female with past medical history of Chronic obstructive pulmonary disease with home oxygen 2-4 L, chronic respiratory failure, history of endotracheal intubation, left posterior fascicular block, central diabetes insipidus, schizophrenia, bipolar presented to ED via EMS with a chief complaint of generalized weakness with worsening shortness of breath over the past one week. Shortness of breath associated with fever, chills, greenish sputum production, associated with substernal chest pain. Chest pain worsened with deep inspiration. Patient is poor historian, not able to provide detailed history. Patient complaining of mild fever, chills, greenish sputum, denying any other symptoms including abdominal pain, motor weakness, sensory deficits, dizziness, bowel or bladder irregularity. At the time of evaluation by EMS personal: Patient is found to SpO2 of 30% requiring accessory muscle use on scene with absent lung sounds. Past medical history: Chronic obstructive pulmonary disease with home oxygen 2-4 L, chronic respiratory failure, history of endotracheal intubation, left posterior fascicular block, central diabetes insipidus, schizophrenia, bipolar Surgical history: Denies Family history: Noncontributory Social history: Lives in assisted living facility ([facility] no family. Current tobacco smoker (30 pack year history). Denies marijuana, alcohol and other drug abuse. Allergies: Denies Home medication: Albuterol inhaler, benztropine 1 mg p.o. b.i.d., divalproex 500 mg p.o. b.i.d., haloperidol 3 mg p.o. b.i.d., trazodone 75 mg p.o. daily. Review of Systems Constitutional: Yes: Fever, Chills Eyes: No: Pain, Vision change, Conjunctivae inflammation, Eyelid inflammation, Other, Redness ENT: No: Ear pain, Ear discharge, Nose pain, Nose discharge, Nose congestion, Mouth pain, Mouth swelling, Throat pain, Throat swelling, Other Respiratory: Cough, Shortness of breath, SOB with excertion, Wheezing Cardiovascular: No: Chest Pain, Palpitations, Orthopnea, Paroxysmal Noc. Dyspnea, Edema, Lt Headedness, Other Gastrointestinal: No: Nausea, Vomiting, Abdominal Pain, Diarrhea, Constipation, Melena, Hematochezia, Other Genitourinary: No Dysuria, No Frequency, No Incontinence, No Hematuria, No Retention, No Other Musculoskeletal: No: other, neck pain, shoulder pain, arm pain, back pain, hand pain, leg pain, foot pain Skin: No: Rash, Lesions, Jaundice, Bruising, Other Neurological: No: Weakness, Numbness, Incoordination, Change in speech, Confusion, Seizures, Other Allergies: Coded Allergies: Lactose (Verified Allergy, Severe, 11/15/24) Azithromycin (Verified Allergy, Unknown, 05/11/25) Medications Current Medications Medications Dose Ordered Sig/Elaine Route Start Time Stop Time Status Last Admin Dose Admin Nitroglycerin 0.4 mg Q5MINP PRN SL 06/19/25 22:00 Morphine Sulfate 2 mg Q30M PRN IV 06/19/25 22:00 Ceftriaxone Sodium 50 ml @ 100 mls/hr DAILY@09 IV 06/20/25 09:00 Doxycycline Hyclate 100 ml @ 50 mls/hr Q12H IV 06/20/25 10:00 Methylprednisolone Sodium Succinate 40 mg BID IV 06/20/25 10:00 Ipratropium [place] 0.5 mg Q6HWA NEB 06/20/25 06:00 Albuterol 2.5 mg Q6HWA NEB 06/20/25 06:00 Nicotine 1 patch Q24H TD 06/20/25 22:00 Haloperidol 3 mg BID PO 06/20/25 10:00 UNV Trazodone HCl 75 mg HS PO 06/20/25 22:00 UNV Divalproex Sodium 500 mg BID PO 06/20/25 10:00 Exam Vital Signs Vital Signs Date Time Temp Pulse Resp B/P (MAP) Pulse Ox O2 Delivery O2 Flow Rate FiO2 06/19/25 21:50 98.1 72 18 106/68 (81) 97 98.1 06/19/25 21:06 Nasal Cannula 4.0 06/19/25 21:06 36 Exam General Appearance: Cooperative. Malnourished, Head Exam: Normal inspection Neck Exam: Normal inspection. Non-tender. Normal alignment Pulmonary/Respiratory: Chest non-tender. Decreased air entry over bilateral lungs, mild crackles over bilateral lung base. Cardiovascular/Chest: Regular rate and rhythm. No murmurs. No JVD. Peripheral Pulses: 2+ Radial (R). 2+ Radial (L). 2+ Pedal (R). 2+ Pedal (L) Abdominal Exam: Normal bowel sounds. Soft. Nontender. No hepatospenomegaly. No masses Ankle Exam: Negative ankle edema Lower extremities: Negative lower extremity edema Neuro/Mental Status: A&O x4. Coherent Labs/Xrays Labs Test 06/19/25 22:12 06/19/25 19:11 Range/Units White Blood Count 7.5 4.4-10.8 10^3/uL Red Blood Count 4.57 4.0-5.20 10^6/uL Hemoglobin 14.6 12.2-16.2 g/dL Hematocrit 43.8 36.0-46.0 % Mean Corpuscular Volume 95.9 80.0-100.0 fL Mean Corpuscular Hemoglobin 31.9 28.0-32.0 pg Mean Corpuscular Hemoglobin Concent 33.3 32.0-36.0 g/dL Red Cell Distribution Width 15.2 H 11.8-14.3 % Platelet Count 118 L 140-450 10^3/uL Mean Platelet Volume 8.7 6.9-10.8 fL Neutrophils (%) (Auto) 87.2 H 37.0-80.0 % Lymphocytes (%) (Auto) 5.4 L 10.0-50.0 % Monocytes (%) (Auto) 7.3 0.0-12.0 % Eosinophils (%) (Auto) 0.0 0.0-7.0 % Basophils (%) (Auto) 0.1 0.0-2.0 % Neutrophils # (Auto) 6.6 1.6-8.6 10 ^3/uL Lymphocytes # (Auto) 0.4 0.4-5.4 10 ^3/uL Monocytes # (Auto) 0.6 0-1.3 10 ^3/uL Eosinophils # (Auto) 0 0-0.8 10 ^3/uL Basophils # (Auto) 0 0-0.2 10 ^3/uL Nucleated Red Blood Cells 0.1 % Sodium Level 140 136-145 mmol/L Potassium Level 4.2 3.5-5.1 mmol/L Chloride Level 98 98-107 mmol/L Carbon Dioxide Level 36 H 20-31 mmol/L Anion Gap 6 5-15 Blood Urea Nitrogen 16 9-23 mg/dL Creatinine 0.60 0.550-1.02 mg/dL Glomerular Filtration Rate Calc 105 >90 mL/min BUN/Creatinine Ratio 26.7 H 10.0-20.0 Serum Glucose 162 H 74-106 mg/dL Calcium Level 9.0 8.7-10.4 mg/dL Troponin I High Sensitivity 4 </=34 ng/L SEPSIS Sepsis Screen Date sepsis recognized/suspect: Jun 19, 2025 Time Sepsis recognized/suspect: 1999 Recent Procedure: No On Antibiotic Therapy: No Respiratory Rate >20: No Heart Rate >90: No Temp<36 C (96.8 F) or >38.3 C: No SBP <90 or MAP <65 mmHG: No New Acute Mental Status Change: No Is the patient on CPAP, BIPAP,: No Physician Orders Chest Portable (06/19/25 19:01) Urinalysis (06/19/25 19:01) Admit (06/19/25 21:51) Nitroglycerin Sublingual (Ntrostat Subli (06/19/25 22:00) Morphine Sulfate Injection (06/19/25 22:00) Oxygen By Nasal Cannula (06/19/25 21:51) Stat Ekg For Chest Pain (06/19/25 21:51) Notify Md Of Changes From Base (06/19/25 21:51) Bellstand Attendant For 24 Hours (06/19/25 21:51) Emergency Dysrhythmia Protocol (06/19/25 21:51) Rhythm Strips Once Every Shift (06/19/25 21:51) Lactic Acid W/ Reflex Order (06/19/25 22:00) Rapid Influenza A&B (06/19/25 22:00) Covid19 Antigen Zoë (06/19/25 ) Erythrocyte Sedimentation Rate (06/19/25 22:00) C-Reactive Protein (06/19/25 22:00) Comprehensive Metabolic Panel (06/20/25 04:00) Urine Dip (06/19/25 ) Urine Bacterial Culture (06/19/25 22:00) Respiratory Culture W/ Gs (06/19/25 22:00) D-Dimer (06/19/25 22:00) Ceftriaxone 1gm/50ml (Rocephin) (06/20/25 09:00) Ceftriaxone 1gm/50ml (Rocephin) (06/19/25 22:15) Doxycycline 100mg/100ml (Vibramycin) (06/19/25 22:15) Methylprednisolone Sod Succ (Solu Medrol (06/20/25 10:00) Ipratropium Medneb (Atrovent Medneb) (06/20/25 06:00) Albuterol Medneb (Ventolin Medneb) (06/20/25 06:00) B-Type Natriuretic Peptide (06/19/25 22:04) Thyroid Stimulating Hormone (06/19/25 22:04) Nicotine 14mg/24hr (Nicoderm 14mg/24hr) (06/20/25 22:00) Doxycycline 100mg/100ml (Vibramycin) (06/20/25 10:00) Haloperidol Tablet (Haldol Tablet) (06/20/25 10:00) Trazodone Hcl (Desyrel) (06/20/25 22:00) (Nf) Divalproex Sodium (06/20/25 10:00) Pantoprazole Tablet (Protonix Tablet) (06/19/25 22:15) Pantoprazole Tablet (Protonix Tablet) (06/20/25 06:00) Enoxaparin Sodium (Lovenox) (06/19/25 22:15) Enoxaparin Sodium (Lovenox) (06/20/25 10:00) Vitamin D, 25-Hydroxy (06/19/25 22:15) Hemoglobin A1c (06/19/25 22:15) Lipid Panel (06/19/25 22:15) Vital Signs Date Time Temp Pulse Resp B/P (MAP) Pulse Ox O2 Delivery O2 Flow Rate FiO2 06/19/25 21:50 98.1 72 18 106/68 (81) 97 98.1 06/19/25 21:12 98 24 98 06/19/25 21:06 100 23 92 06/19/25 21:06 92 Nasal Cannula 4.0 06/19/25 21:06 92 Nasal Cannula* 4 36 06/19/25 19:56 98.1 80 20 118/72 (87) 97 98.1 06/19/25 19:56 80 20 94 Nasal Cannula* 2 28 06/19/25 19:23 103 06/19/25 19:20 90 Nasal Cannula* 3 32 06/19/25 19:20 22 90 Nasal Cannula* 3 32 06/19/25 19:15 102 22 92 4.0 36 06/19/25 19:09 97.9 102 22 124/71 86 97.9 06/19/25 19:04 103 Laboratory Tests Test 06/19/25 19:11 06/19/25 22:12 White Blood Count 7.5 10^3/uL (4.4-10.8) Lactic Acid Level Pending Medications Medications Dose Ordered Sig/Elaine Route Start Time Stop Time Status Last Admin Dose Admin Albuterol 2.5 mg Q4HR NEB 06/19/25 22:00 06/19/25 22:12 DC 06/19/25 21:06 2.5 MG Albuterol 20 mg ONCE ONCE NEB 06/19/25 19:00 06/19/25 19:03 DC 06/19/25 19:09 20 MG Ipratropium [place] 0.5 mg Q4HR NEB 06/19/25 22:00 06/19/25 22:12 DC 06/19/25 21:06 0.5 MG Magnesium Sulfate/ Dextrose 100 ml @ 100 mls/hr ONCE ONCE IV 06/19/25 19:15 06/19/25 20:14 DC 06/19/25 19:15 100 MLS/HR Methylprednisolone Sodium Succinate 125 mg ONCE ONCE IV 06/19/25 19:15 06/19/25 19:16 DC 06/19/25 19:15 125 MG Assessment/Plan Assessment/Plan Acute on chronic hypoxic respiratory failure Right lower lobe pneumonia Gram-positive versus negative Acute Chronic obstructive pulmonary disease exacerbation -chest x-ray: Right lower lobe opacification. Elevated CRP at 1.27, likely underlying infectious etiology. -IV antibiotic with ceftriaxone and doxycycline. -IV methylprednisolone 40 mg b.i.d. -nebulization with ipratropium bromide and albuterol -goal SpO2 greater than 91%. -pending sputum culture -check influenza, COVID. -lactic acid <2 -IV magnesium given by ED. Oxygen dependence -currently on oxygen via nasal cannula 2-4 L Left posterior fascicular block -avoid AV fatemeh agents Bipolar disorder Schizophrenia -trazodone 75 mg p.o. daily -haloperidol 3 mg p.o. b.i.d. -divalproex 500 mg p.o. b.i.d. History of UTI/ESBL -check urinalysis, urine culture. Chronic smoker -counseled on smoking cessation -nicotine patch History of central diabetes insipidus. -sodium 140 on 06/19/2025 -continue to monitor PUD prophylaxis with Protonix DVT prophylaxis with Lovenox Goals of care discussed greater than 24 minutes, full code status. Plan discussed with Dr. Connolly Plan discussed with: Patient, Other My Orders Orders - CONSUELO CALHOUN Procedure Category Date Status Time Admit ADMIT 06/19/25 Transmitted 21:51 Nitroglycerin PHA 06/19/25 In Process Sublingual (Ntrostat 22:00 Morphine Sulfate PHA 06/19/25 In Process Injection 22:00 Oxygen By Nasal RT 06/19/25 Transmitted Cannula 21:51 Stat Ekg For Chest AMINATA 06/19/25 In Process Pain 21:51 Notify Md Of Changes AMINATA 06/19/25 In Process From Base 21:51 Bellstand Attendant For AMINATA 06/19/25 In Process 24 Hours 21:51 Emergency Dysrhythmia AMINATA 06/19/25 In Process Protocol 21:51 Rhythm Strips Once AMINATA 06/19/25 In Process Every Shift 21:51 Lactic Acid W/ Reflex LAB 06/19/25 In Process Order 22:00 Rapid Influenza A&B LAB 06/19/25 Logged 22:00 Covid19 Antigen Zoë LAB 06/19/25 Logged Erythrocyte LAB 06/19/25 In Process Sedimentation Rate 22:00 C-Reactive Protein LAB 06/19/25 In Process 22:00 Comprehensive LAB 06/20/25 Verified Metabolic Panel 04:00 Urine Dip ED NURSING 06/19/25 Transmitted Urine Bacterial ANDRES 06/19/25 Logged Culture 22:00 Respiratory Culture ANDRES 06/19/25 Logged W/ Gs 22:00 D-Dimer LAB 06/19/25 In Process 22:00 Ceftriaxone 1gm/50ml PHA 06/20/25 In Process (Rocephin) 09:00 Ceftriaxone 1gm/50ml PHA 06/19/25 In Process (Rocephin) 22:15 Doxycycline PHA 06/19/25 In Process 100mg/100ml 22:15 Methylprednisolone PHA 06/20/25 In Process Sod Succ (Solu Medrol 10:00 Ipratropium Medneb PHA 06/20/25 In Process (Atrovent Medneb) 06:00 Albuterol Medneb PHA 06/20/25 In Process (Ventolin Medneb) 06:00 B-Type Natriuretic LAB 06/19/25 In Process Peptide 22:04 Thyroid Stimulating LAB 06/19/25 In Process Hormone 22:04 Nicotine 14mg/24hr PHA 06/20/25 In Process (Nicoderm 14mg/24hr) 22:00 Doxycycline PHA 06/20/25 In Process 100mg/100ml 10:00 Haloperidol Tablet PHA 06/20/25 Logged (Haldol Tablet) 10:00 Trazodone Hcl PHA 06/20/25 Logged (Desyrel) 22:00 (Nf) Divalproex Sodium PHA 06/20/25 Logged 10:00 Pantoprazole Tablet PHA 06/19/25 Transmitted (Protonix Tablet) 22:15 Pantoprazole Tablet PHA 06/20/25 Transmitted (Protonix Tablet) 06:00 Enoxaparin Sodium PHA 06/19/25 Transmitted (Lovenox) 22:15 Enoxaparin Sodium PHA 06/20/25 Transmitted (Lovenox) 10:00 Vitamin D, 25-Hydroxy LAB 06/19/25 Logged 22:15 Hemoglobin A1c LAB 06/19/25 Logged 22:15 Lipid Panel LAB 06/19/25 Logged 22:15 Date of Service: Jun 19, 2025 Billing Provider: CHRISTAL ABRAHAM MD Common Visit Codes: [id number] INP/OBS CARE (HIGH) Secondary Visit Codes: [id number] CHNG SMOKING >10MIN, [id number] CARE PLAN 30 MINUTES CONSUELO CALHOUN RESIDENT Jun 19, 2025 22:18
[2025-06-19 22:39] LABS: Triglycerides 65 mg/dL (< 150)
[2025-06-19 22:41] LABS: Cholesterol 162 mg/dL (< 200)
[2025-06-19 22:46] LABS: HDL Cholesterol 69 mg/dL (40-59)
[2025-06-19 23:05] LABS: COVID19 ANTIGEN SOFIA FIA NEGATIVE (NEGATIVE)
[2025-06-20] VITALS (21 sets, daily range): BP systolic 118–145; BP diastolic 67–77; PULSE 84–105; RESP 16–22; TEMP 97.6–98.8; O2SAT 90–99
[2025-06-20] MEDS: DOXYCYCLINE 100MG/100ML 100 ML IV ONE (02:26)
[2025-06-20] MEDS: PANTOPRAZOLE 40 MG TAB PO SCH (06:03)
[2025-06-20] MEDS: ALBUTEROL SULF 2.5 MG/0.5ML(0.5%) NEB SOLN NEB SCH ×3 (06:18→18:32)
[2025-06-20] MEDS: IPRATROPIUM BROM 0.5 MG/2.5ML INH SOL NEB SCH ×2 (06:19→18:32)
--- NOTE | 2025-06-20 08:35 | DVHPN2 ---
Progress Note - Dictate Date Seen: Jun 20, 2025 Medical Necessity Reason Pt with a Central, PICC or Fol: No vital signs Vital Sign Date Time Temp Pulse Resp B/P (MAP) Pulse Ox O2 Delivery O2 Flow Rate FiO2 06/20/25 06:28 86 22 98 06/20/25 06:19 Nasal Cannula 4.0 06/20/25 06:19 36 06/20/25 05:00 98.4 138/72 (94) 98.4 Total Intake and Output 06/19/25 06/19/25 06/20/25 15:00 23:00 07:00 Intake Total 280 ml Balance 280 ml medications Current Medications Medications Dose Ordered Sig/Elaine Route Start Time Stop Time Status Last Admin Dose Admin Nitroglycerin 0.4 mg Q5MINP PRN SL 06/19/25 22:00 Morphine Sulfate 2 mg Q30M PRN IV 06/19/25 22:00 Ceftriaxone Sodium 50 ml @ 100 mls/hr DAILY@09 IV 06/20/25 09:00 Doxycycline Hyclate 100 ml @ 50 mls/hr Q12H IV 06/20/25 10:00 Methylprednisolone Sodium Succinate 40 mg BID IV 06/20/25 10:00 Ipratropium [place] 0.5 mg Q6HWA [facility] 06/20/25 06:00 06/20/25 06:19 0.5 MG Albuterol 2.5 mg Q6HWA NEB 06/20/25 06:00 06/20/25 06:18 2.5 MG Nicotine 1 patch Q24H TD 06/20/25 22:00 Haloperidol 3 mg BID PO 06/20/25 10:00 Trazodone HCl 75 mg HS PO 06/20/25 22:00 Divalproex Sodium 500 mg BID PO 06/20/25 10:00 Pantoprazole Sodium 40 mg DAILY@0600 PO 06/20/25 06:00 06/20/25 06:03 40 MG Enoxaparin Sodium 30 mg DAILY SC 06/20/25 10:00 objective General Appearance: alert, no distress HEENT: EOMI, PERRLA, normal external inspect of ears, no icterus, no nasal drainage Neck: no carotid bruit, no jugular venous distention (JVD), no lymphadenopathy Chest: normal thorax Cardiovascular: regular rate and rhythm, no diastolic murmur, no jugular venous distention (JVD), no rub, no systolic murmur Abdominal: soft, no hepatomegaly, no mass, no splenomegaly, no tenderness Genitourinary: grossly normal external Musculoskeletal: no joint tenderness, no swelling Extremities: normal pulses, no calf tenderness, no clubbing, no cyanosis, no edema Skin: no bruising, no jaundice, no rash Neurological: alert, No focal deficit laboratory and microbiology Laboratory Tests 06/19/25 19:11 Test 06/19/25 19:11 Range/Units Serum Glucose 162 H 74-106 mg/dL Problem List 1. Acute on chronic hypoxic respiratory failure Monitor, Men-Neb treatments, supplemental O2 2. COPD exacerbation Monitor, steroids, antibiotics 3. Bipolar Monitor, home casandra 4. Schizophrenia Monitor, home meds 5. Oxygen dependant Monitor 6. Thrombocytopenia Monitor, daily labs Assessment/Plan Subjective: Patient is very agitated and anxious today. Objective: Patient was admitted for acute on chronic hypoxic respiratory failure. Patient has a history of COPD and was admitted for COPD exacerbation. Patient was started on supplemental O2. Patient has had multiple readmissions for COPD exacerbation and medical noncompliance. Patient has now agreed to wear oxygen from her last visit. Patient has underlying history of schizophrenia and bipolar. She last saw tele psych on 05/18/[address] Padilla. Patient was agreeable to take her psychiatric medications. I did remind her of this and she is agreeable to take her medications on this visit as well. Patient is requesting Q4 hour breathing treatments. Plan: Continue supplemental O2. Patient pulled out her IV and is refusing reinsertion at this time. Continue supplemental O2. DC plan in approximately 2 days if patient improves. Plan discussed with: Patient, Other JOYA PLATT NP Jun 20, 2025 08:35
[2025-06-20] MEDS: methylPREDNISolone SOD SUCC 40 MG/ML VL IV SCH (10:00)
[2025-06-20] MEDS ORDERED: HALOPERIDOL 5 MG TAB PO SCH (10:00)
[2025-06-20] MEDS: ENOXAPARIN SOD 30 MG/0.3 ML SYRINGE SC SCH (10:00)
[2025-06-20 10:06] LABS: Alanine Aminotransferase 17 U/L (7-40); Albumin 4.6 g/dL (3.2-4.8); Alkaline Phosphatase 77 U/L (46-116); Anion Gap 10 (5-15); BUN/Creatinine Ratio 12.3 (10.0-20.0); Bilirubin, Total 0.4 mg/dL (0.2-1.0); Calcium 9.1 mg/dL (8.7-10.4); Glucose 99 mg/dL (74-106); Potassium 4.8 mmol/L (3.5-5.1); Sodium 142 mmol/L (136-145); Total Protein 6.8 g/dL (5.7-8.2)
[2025-06-20 10:08] LABS: Blood Urea Nitrogen 7 mg/dL (9-23); Carbon Dioxide 36 mmol/L (20-31); Chloride 96 mmol/L (98-107)
[2025-06-20] MEDS: DOXYCYCLINE 100MG/100ML 100 ML IV SCH (10:31)
[2025-06-20] MEDS: HALOPERIDOL 1 MG TAB PO SCH (10:59)
[2025-06-20 11:30] LABS: Hematocrit 43.5 % (36.0-46.0); Hemoglobin 14.2 g/dL (12.2-16.2); Mean Corpuscular Hemoglobin 31.4 pg (28.0-32.0); Mean Corpuscular Volume 96.3 fL (80.0-100.0); Nucleated Red Blood Cells % 0.0 %
[2025-06-20] MEDS ORDERED: LORazepam 2MG/ML-1ML VIAL IV PRN (13:30)
[2025-06-20] MEDS ORDERED: ALBUTEROL SULF 2.5 MG/0.5ML(0.5%) NEB SOLN NEB SCH (13:45)
[2025-06-20] MEDS: DOXYCYCLINE 100 MG TAB/CAP PO SCH (15:53)
[2025-06-20] MEDS: predniSONE 20 MG TAB PO SCH (15:53)
[2025-06-20] MEDS: BENZTROPINE MESY 0.5 MG TAB PO SCH (15:53)
[2025-06-20] MEDS: ALBUTEROL SULF 2.5 MG/0.5ML(0.5%) NEB SOLN NEB PRN (16:39)
[2025-06-20] MEDS: NICOTINE 14 MG/24HR TOPICAL PATCH TD SCH (21:07)
[2025-06-21] VITALS (19 sets, daily range): BP systolic 103–112; BP diastolic 54–78; PULSE 78–98; RESP 16–20; TEMP 97.3–99.4; O2SAT 90–100
--- NOTE | 2025-06-21 11:27 | DVHPN2 ---
Progress Note - Dictate Date Seen: Jun 21, 2025 Medical Necessity Reason Pt with a Central, PICC or Fol: No vital signs Vital Sign Date Time Temp Pulse Resp B/P (MAP) Pulse Ox O2 Delivery O2 Flow Rate FiO2 06/21/25 09:09 93 20 100 06/21/25 09:03 Nasal Cannula 4.0 06/21/25 09:03 36 06/21/25 04:51 98.4 112/78 (89) 98.4 Total Intake and Output 06/20/25 06/20/25 06/21/25 15:00 23:00 07:00 Intake Total 300 ml 200 ml 520 ml Balance 300 ml 200 ml 520 ml medications Current Medications Medications Dose Ordered Sig/Elaine Route Start Time Stop Time Status Last Admin Dose Admin Nitroglycerin 0.4 mg Q5MINP PRN SL 06/19/25 22:00 Morphine Sulfate 2 mg Q30M PRN IV 06/19/25 22:00 Nicotine 1 patch Q24H TD 06/20/25 22:00 06/20/25 21:07 1 PATCH Trazodone HCl 75 mg HS PO 06/20/25 22:00 06/20/25 21:04 75 MG Divalproex Sodium 500 mg BID PO 06/20/25 10:00 06/21/25 09:25 500 MG Pantoprazole Sodium 40 mg DAILY@0600 PO 06/20/25 06:00 06/21/25 05:31 40 MG Enoxaparin Sodium 30 mg DAILY SC 06/20/25 10:00 06/21/25 09:26 30 MG Haloperidol 3 mg BID PO 06/20/25 10:52 06/21/25 09:25 3 MG Benztropine Mesylate 1 mg Q12HR PO 06/20/25 13:30 06/21/25 09:26 1 MG Doxycycline Monohydrate 100 mg Q12HR PO 06/20/25 13:45 06/21/25 09:25 100 MG Prednisone 40 mg DAILY PO 06/20/25 13:45 06/21/25 09:24 40 MG Albuterol 2.5 mg Q4HPRN PRN NEB 06/20/25 16:15 06/20/25 16:39 2.5 MG Albuterol 2.5 mg Q4H NEB 06/20/25 18:00 06/21/25 09:03 2.5 MG Ipratropium [place] 0.5 mg Q4HR NEB 06/20/25 18:00 06/21/25 09:03 0.5 MG objective General Appearance: alert, no distress HEENT: EOMI, PERRLA, normal external inspect of ears, no icterus, no nasal drainage Neck: no carotid bruit, no jugular venous distention (JVD), no lymphadenopathy Chest: normal thorax Cardiovascular: regular rate and rhythm, no diastolic murmur, no jugular venous distention (JVD), no rub, no systolic murmur Abdominal: soft, no hepatomegaly, no mass, no splenomegaly, no tenderness Genitourinary: grossly normal external Musculoskeletal: no joint tenderness, no swelling Extremities: normal pulses, no calf tenderness, no clubbing, no cyanosis, no edema Skin: no bruising, no jaundice, no rash Neurological: alert, No focal deficit laboratory and microbiology Laboratory Tests 06/20/25 10:43 06/20/25 09:04 Test 06/20/25 09:04 Range/Units Serum Glucose 99 74-106 mg/dL Problem List 1. Acute on chronic hypoxic respiratory failure Monitor, Men-Neb treatments, supplemental O2 2. COPD exacerbation Monitor, steroids, antibiotics 3. Bipolar Monitor, home casandra 4. Schizophrenia Monitor, home meds 5. Oxygen dependant Monitor 6. Thrombocytopenia Monitor, daily labs Assessment/Plan Subjective: Patient is very agitated and anxious today. Objective: Patient is less agitated today she has been compliant with taking medication. Patient still refusing IV. Patient was admitted for acute on chronic hypoxic respiratory failure and COPD exacerbation. She has underlying bipolar and schizophrenia. Patient also has thrombocytopenia which appears to be stable. Plan: Continue Med-Neb treatments every 4 hours. Plan to discharge back to assisted living facility in a.m. Plan discussed with: Patient, Other JOYA PLATT NP Jun 21, 2025 11:27
[2025-06-22] VITALS (11 sets, daily range): BP systolic 121–123; BP diastolic 69–80; PULSE 85–96; RESP 16–18; TEMP 97.9–98; O2SAT 90–100
[2025-06-22] MEDS ORDERED: DOXY100C79 PO (12:18)
[2025-06-22] MEDS ORDERED: METH4PAK PO (12:18)
--- NOTE | 2025-06-22 12:21 | DVHDS2 ---
Discharge Summary Date of Admission Jun 19, 2025 at 21:51 Date of Discharge: Jun 22, 2025 Labs/Diagnostic Data: Laboratory Results Test 06/20/25 10:43 06/20/25 09:04 06/19/25 22:20 06/19/25 22:12 White Blood Count 8.7 10^3/uL (4.4-10.8) Red Blood Count 4.52 10^6/uL (4.0-5.20) Hemoglobin 14.2 g/dL (12.2-16.2) Hematocrit 43.5 % (36.0-46.0) Mean Corpuscular Volume 96.3 fL (80.0-100.0) Mean Corpuscular Hemoglobin 31.4 pg (28.0-32.0) Mean Corpuscular Hemoglobin Concent 32.6 g/dL (32.0-36.0) Red Cell Distribution Width 15.0 % (11.8-14.3) Platelet Count 119 10^3/uL (140-450) Mean Platelet Volume 9.9 fL (6.9-10.8) Neutrophils (%) (Auto) 86.7 % (37.0-80.0) Lymphocytes (%) (Auto) 7.3 % (10.0-50.0) Monocytes (%) (Auto) 5.9 % (0.0-12.0) Eosinophils (%) (Auto) 0.0 % (0.0-7.0) Basophils (%) (Auto) 0.1 % (0.0-2.0) Neutrophils # (Auto) 7.5 10 ^3/uL (1.6-8.6) Lymphocytes # (Auto) 0.6 10 ^3/uL (0.4-5.4) Monocytes # (Auto) 0.5 10 ^3/uL (0-1.3) Eosinophils # (Auto) 0 10 ^3/uL (0-0.8) Basophils # (Auto) 0 10 ^3/uL (0-0.2) Nucleated Red Blood Cells 0.0 % Sodium Level 142 mmol/L (136-145) Potassium Level 4.8 mmol/L (3.5-5.1) Chloride Level 96 mmol/L (98-107) Carbon Dioxide Level 36 mmol/L (20-31) Anion Gap 10 (5-15) Blood Urea Nitrogen 7 mg/dL (9-23) Creatinine 0.57 mg/dL (0.550-1.02) Glomerular Filtration Rate Calc 107 mL/min (>90) BUN/Creatinine Ratio 12.3 (10.0-20.0) Serum Glucose 99 mg/dL (74-106) Calcium Level 9.1 mg/dL (8.7-10.4) Total Bilirubin 0.4 mg/dL (0.2-1.0) Aspartate Amino Transferase (AST) 25 U/L (13-40) Alanine Aminotransferase (ALT) 17 U/L (7-40) Alkaline Phosphatase 77 U/L (46-116) Total Protein 6.8 g/dL (5.7-8.2) Albumin 4.6 g/dL (3.2-4.8) Influenza Type A Antigen Negative (Negative) Influenza Type B Antigen Negative (Negative) SARS-CoV-2 Antigen (Rapid) Negative (NEGATIVE) Hemoglobin A1c 5.6 % A1C (<5.7) Lactic Acid Level 0.8 mmol/L (0.4-2.0) B-Type Natriuretic Peptide 40.31 pg/mL (0-100) Triglycerides Level 65 mg/dL (< 150) Cholesterol Level 162 mg/dL (< 200) LDL Cholesterol 76 mg/dL (< 100) HDL Cholesterol 69 mg/dL (40-59) Vitamin D 25-Hydroxy 38.7 ng/mL (30.0-100) Test 06/19/25 19:11 Erythrocyte Sedimentation Rate 2 mm/hr (0-20) D-Dimer, Quantitative < 0.19 mg/L FEU (0.0-0.49) Troponin I High Sensitivity 4 ng/L (</=34) C-Reactive Protein High Sensitivity 1.27 mg/dL (<1.0) Thyroid Stimulating Hormone (TSH) 1.07 uIU/mL (0.55-4.78) Other Laboratory Tests 06/20/25 10:43 06/20/25 09:04 Brief Hx & Hospital Course: Patient was admitted on 06/19/2025 for acute on chronic hypoxic respiratory failure and COPD exacerbation. Patient has underlying bipolar and schizophrenia. Patient also has thrombocytopenia. COVID and influenza swab are negative. Patient most likely has community-acquired pneumonia, gram-positive and gram-negative. Patient was sent home on doxycycline and inhalers. She was instructed to follow-up with her PCP in 1 week. The patient received proper medical treatment and medications. Vital signs, Imaging and Laboratory Work was monitored daily. All consults recommendations were followed as provided. There were no complaints or new complaints upon discharge, all questions and concerns were answered. Patient was advised to return to the ER or call 911 if any headaches, dizziness, shortness of breath, chest pain, bleeding, fevers, or worsening of medical condition. Patient/Family was counseled about treatment plan, medications, possible side effects, patient verbalized understanding. All questions were answered to the best of my ability. The patient symptoms improved and they are okay to be DC. Condition at Discharge: Stable Final Diagnosis/Problems List Copd exacerbation Community aquired pna, most likely gram neg and gram pos Acute on chronic hypoxic respiratory failure Oxygen dependant Thrombocytopenia Bipolar Schizophrenia Discharge Disposition: Home Discharge Instruct/Medications Diet: Cardiac 2g Na,low cholest Activity: No Restrictions, As Tolerated Medications: Doxycycline for 7 days medrol dose lindsay Scheduled Benztropine Mesylate (Benztropine Mesylate), 1 MG PO BID Divalproex Sodium (Divalproex Sodium), 500 MG PO BID Doxycycline (Monohydrate) (Doxycycline), 100 MG PO BID Haloperidol (Haldol), 3 MG PO BID Methylprednisolone (Medrol Dosepak), 4 MG PO UD Tiotropium [place] Monohydrate (Spiriva Respimat), 2.5 MCG IN DAILY Trazodone Hcl (Trazodone Hcl), 75 MG PO HS Scheduled PRN Albuterol Sulfate (Albuterol Sulfate Hfa), 108 MCG IN Q4HP PRN Albuterol Sulfate (Albuterol Sulfate Hfa), 108 MCG IN Q4HPRN PRN Loperamide Hcl (Imodium), 2 MG PO Q6HPRN PRN Miscellaneous Medications Albuterol Sulfate (Albuterol Sulfate (5 mg/ml) 0.5%), 1 NEB IN, (Reported) Discharge Statement: "Patient was advised to return to the ER or call 911 if any headaches, dizziness, shortness of breath, chest pain, abdominal pain, bleeding, fevers, or worsening of medical condition. Patient was counseled about treatment plan, medications, possible side effects, patientverbalized understanding. All questions were answered to the best of my ability. This discharge took greater then 30 minutes in planning, reviewing documentation, counseling the patient, and discussing with other team members." ASSESSMENT ASSESSMENT Assessment Copd exacerbation Community aquired pna, most likely gram neg and gram pos JOYA PLATT NP Jun 22, 2025 12:21
[2025-06-22] MEDS ORDERED: LOPE2CAP16 PO (13:05)
[2025-06-22] MEDS ORDERED: TIOT17SP IN (13:05)
[2025-06-22] MEDS ORDERED: ALBU108A5 IN (13:06)
== END 2025-06-22 18:07 | disposition home or self-care (01) | DRG 133 ==
LOC: EDBD 18:59 → ER 19:02 → OVERFLOW 21:51 → TELE-EAST 23:53
PROVIDERS: ADMIT Nurse Practitioner; ATTEND Nurse Practitioner
DX: J96.21 Acute and chronic respiratory failure with hypoxia (principal); J15.69 Pneumonia due to other Gram-negative bacteria; D69.6 Thrombocytopenia, unspecified; J15.9 Unspecified bacterial pneumonia; J84.10 Pulmonary fibrosis, unspecified; Z20.822 Contact with and (suspected) exposure to COVID-19; Z99.81 Dependence on supplemental oxygen; J44.1 Chronic obstructive pulmonary disease with (acute) exacerbation; J44.0 Chronic obstructive pulmonary disease with (acute) lower respiratory infection; F31.9 Bipolar disorder, unspecified; F20.9 Schizophrenia, unspecified; I44.5 Left posterior fascicular block; F17.210 Nicotine dependence, cigarettes, uncomplicated; R79.82 Elevated C-reactive protein (CRP); Z79.899 Other long term (current) drug therapy; Z88.1 Allergy status to other antibiotic agents; Z88.8 Allergy status to other drugs, medicaments and biological substances; Z87.440 Personal history of urinary (tract) infections; Z71.6 Tobacco abuse counseling
CPT/HCPCS: 36415; 71045; 80048; 80053; 80061; 82306; 83036; 83605; 83880; 84443; 84484; 85025; 85379; 85652; 86141; 87426; 87804; 93005; 94640; 96365; 96375; 99291; 99292; G0378

== ENCOUNTER 2025-06-23 00:09 | Emergency (ER) | payer OTHER ==
[~2025-06-23] VITALS: Ht 157.5 cm; Wt 68.0 kg
[~2025-06-23 00:09] MED LIST changes: +DOXY100C79 PO; +LOPE2CAP16 PO; +METH4PAK PO; +TIOT17SP IN
[2025-06-23 00:17] VITALS: BP 124/65; TEMP 98.1
[2025-06-23 01:04] LABS: Hematocrit 45.9 % (36.0-46.0); Hemoglobin 15.2 g/dL (12.2-16.2); Mean Corpuscular Hemoglobin 31.8 pg (28.0-32.0); Mean Corpuscular Volume 96.1 fL (80.0-100.0); Nucleated Red Blood Cells % 0.0 %
--- NOTE | 2025-06-23 01:16 | ED.PDOC ---
SOB-HPI HPI Comments Patient was discharged on June 22, 2025 with the following Final Diagnosis/Problems List Copd exacerbation Community aquired pna, most likely gram neg and gram pos Acute on chronic hypoxic respiratory failure Oxygen dependant Thrombocytopenia Bipolar Schizophrenia HPI: Poor Historian. 55-year-old female presents to the ER by ambulance because she has claims that the facility she just left the hospital to for treatment of pneumonia the oxygen tank ran out which made her hypoxic. She is oxygen dependent 2-4 L nasal cannula. Pulse ox was in the 80s at the facility. Patient was brought in here for further evaluation. Patient was placed on oxygen here and her sats are st able in no acute distress. REVIEW OF SYSTEMS: CONSTITUTIONAL: Denies acute: fever, diaphoresis, chills, generalized weakness. HEAD: Denies acute: headache, photophobia Eyes: Denies acute: Double vision, vision loss, eye pain, eye discharge. EARS: Denies acute: tinnitus, hearing loss, ear discharge, ear pain, THROAT: Denies acute: sore throat, swelling, difficulty swallowing , pain with swallowing, change in voice. NECK: Denies acute: neck pain, neck swelling, stiff neck. HEART: Denies acute : chest pain, palpitations, LUNGS: Denies acute: wheezing, cough, hemoptysis ABDOMEN: Denies acute: abdominal pain, Nausea, Vomiting, diarrhea, melena , hematemesis, hematochezia SKIN: Denies acute: rash, redness, lesions, itchiness. EXTREMITIES: Denies acute: calf pain, numbness, tingling, weakness, denies pain in extremity. Denies acute: Low back pain. Neuro: Denies acute: focal neurological deficit, motor or sensory focal neurological deficit, tremors, seizure like activity, confusion, dizziness, change in mental status, loss of bowel or bladder function, cauda equina like symptoms. : Denies acute: dysuria, hematuria, flank pain, increase in urinary frequency. PSYCH: Denies acute: hallucination, suicidal ideation, homicidal ideation. FEMALE: Denies acute: abnormal vaginal bleeding, foul odor, unusual discharge. PHYSICAL EXAM: General: -----mild---acute distress, awake and alert. Head: normocephalic, atraumatic. Neck: supple, trachea is midline, no swelling. Throat: Normal phonation. Eyes:, no erythema, no purulent discharge, no proptosis, no icterus. Heart: regular rate, regular rhythm, no significant murmur appreciated. Lungs: no apparent respiratory distress, Able to speak in full sentences. No wheezing, mild rhonchi, no crackles. No stridors Clear to auscultation bilaterally. Abdomen: non tender to palpation, non distended, soft, no guarding, no rebound, + bowel sounds. Neuro: Awake, Alert, oriented to name, self, situation, follows commands GCS=15. Speech is normal. Skin: no petechia, no purpura, no cyanosis, non-pale, not jaundice. Lower extremities: --no - Pitting edema no deformity, no focal swelling, no calf TTP. Makes eye contact. moves all four extremities. Face: no apparent facial droop. ED COURSE: DISCLAIMER: This medical document was created using an electronic medical record system with voice recognition software and computerized dictation system. Although this document has been carefully reviewed, there might still be some phonetic and typographical errors. Occasional wrong-word or "sound-alike" substitutions may have occurred due to the inherent limitations of voice recognition software. These areas are purely typographical due to imperfections of the software programs and do not reflect any compromise in the patient's medical care. Please read the chart carefully and recognize, using context, where these substitutions have occurred. Chief Complaint: Shortness of Breath Time Seen by MD: 00:22 Primary Care Provider: UNKNOWN Information Source: Patient Mode of Arrival: EMS Past Medical History PAST MEDICAL HISTORY: COPD, Gallstones, Schizophrenia, UTI'S Surgical History: Denies all surgeries BELT KNIFE FEEDER History: Denies all BELT KNIFE FEEDER Hx Family History Family History: Reviewed,noncontributory to illness Social History Smoker: Quit Less Than 1 Year, Cigarettes Alcohol: Denies ETOH Use Drugs: Denies Drug Use Lives In: Assisted Care X-Ray, Labs, Meds, VS Vital Signs Date Time Temp Pulse Resp B/P (MAP) Pulse Ox O2 Delivery O2 Flow Rate FiO2 06/23/25 01:17 20 96 Nasal Cannula* 4 36 06/23/25 00:17 98.1 104 16 124/65 94 98.1 06/23/25 00:16 16 95 Nasal Cannula* 4 36 Lab Test 06/23/25 01:46 06/23/25 00:48 Range/Units Troponin I High Sensitivity 4 6 </=34 ng/L White Blood Count 7.3 4.4-10.8 10^3/uL Red Blood Count 4.78 4.0-5.20 10^6/uL Hemoglobin 15.2 12.2-16.2 g/dL Hematocrit 45.9 36.0-46.0 % Mean Corpuscular Volume 96.1 80.0-100.0 fL Mean Corpuscular Hemoglobin 31.8 28.0-32.0 pg Mean Corpuscular Hemoglobin Concent 33.1 32.0-36.0 g/dL Red Cell Distribution Width 15.0 H 11.8-14.3 % Platelet Count 180 140-450 10^3/uL Mean Platelet Volume 8.6 6.9-10.8 fL Neutrophils (%) (Auto) 75.0 37.0-80.0 % Lymphocytes (%) (Auto) 15.9 10.0-50.0 % Monocytes (%) (Auto) 9.0 0.0-12.0 % Eosinophils (%) (Auto) 0.0 0.0-7.0 % Basophils (%) (Auto) 0.1 0.0-2.0 % Neutrophils # (Auto) 5.5 1.6-8.6 10 ^3/uL Lymphocytes # (Auto) 1.2 0.4-5.4 10 ^3/uL Monocytes # (Auto) 0.7 0-1.3 10 ^3/uL Eosinophils # (Auto) 0 0-0.8 10 ^3/uL Basophils # (Auto) 0 0-0.2 10 ^3/uL Nucleated Red Blood Cells 0.0 % Sodium Level 138 136-145 mmol/L Potassium Level 4.6 3.5-5.1 mmol/L Chloride Level 90 L 98-107 mmol/L Carbon Dioxide Level > 40 *H 20-31 mmol/L Anion Gap 7.09372 5-15 Blood Urea Nitrogen 8 L 9-23 mg/dL Creatinine 0.52 L 0.550-1.02 mg/dL Glomerular Filtration Rate Calc 109 >90 mL/min BUN/Creatinine Ratio 15.4 10.0-20.0 Serum Glucose 104 74-106 mg/dL Calcium Level 10.0 8.7-10.4 mg/dL Total Bilirubin 0.3 0.2-1.0 mg/dL Aspartate Amino Transferase (AST) 24 13-40 U/L Alanine Aminotransferase (ALT) 22 7-40 U/L Alkaline Phosphatase 71 46-116 U/L B-Type Natriuretic Peptide 30.93 0-100 pg/mL Total Protein 6.6 5.7-8.2 g/dL Albumin 4.5 3.2-4.8 g/dL Current Medications Medications (Trade) Dose Ordered Sig/Elaine Route Start Time Stop Time Status Last Admin Albuterol (Ventolin Medneb) 2.5 mg ONCE ONCE NEB 06/23/25 01:00 06/23/25 01:01 DC 06/23/25 01:17 Ipratropium [place] (Atrovent Medneb) 1 mg ONCE ONCE NEB 06/23/25 01:00 06/23/25 01:01 DC 06/23/25 01:17 [place] [id number] Ph: [phone] DIAGNOSTIC IMAGING Diagnostic Imaging Report : [id number] Signed PATIENT: NATIVIDAD URBAN MACCT: [id number] UNIT: [id number] : 1970 LOC: ER ROOM / BED: / AGE / SEX: 55 / F ADM STATUS: REG ER SERVICE 002 ORDERING PHYSICIAN: SRIRAM GRACE DO PROCEDURE(s): CXRP - CHEST PORTABLE REASON: sob ORDER NUMBER(s): [id number], ACCESSION NUMBER(s): [id number] CHEST RADIOGRAPH Indication: sob Technique: 1 view Comparison: XY CHEST PORTABLE on DOS: 06/19/25, XY CHEST PORTABLE on DOS: 05/14/25, XY CHEST PORTABLE on DOS: 05/11/25, XY CHEST PORTABLE on DOS: 10/19/24, XY CHEST PORTABLE on DOS: 10/18/24 FINDINGS: Lines and Tubes: None. Lungs/Pleura: Hyperexpanded lungs with similar coarse bilateral interstitial markings. Previous right mid to lower lung consolidation appears resolved. No evident pleural abnormality. Cardiomediastinum: Unremarkable. Other: No acute osseous abnormality. IMPRESSION: 1. Emphysematous appearing lungs without acute cardiopulmonary abnormality. ATED BY: MARTINA FREEMAN MD DICTATED DATE/TIME: 06/23/25210 SIGNED BY: MARTINA FREEMAN MD SIGNED DATE/TIME: 06/23/25210 CC: Time of 1ST Reevaluation: 02:22 Reevaluation 1ST: Resolved Patient Education/Counseling: Diagnosis, Treatment Family Education/Counseling: Other Comments Patient received a breathing treatment. Patient refused IV medications. She was given fluid water to drink instead. She is in no acute distress at her baseline. SEPSIS Sepsis Screen Date sepsis recognized/suspect: Jun 23, 2025 Time Sepsis recognized/suspect: 0020 Recent Procedure: No On Antibiotic Therapy: No Respiratory Rate >20: No Heart Rate >90: Yes Temp<36 C (96.8 F) or >38.3 C: No SBP <90 or MAP <65 mmHG: No New Acute Mental Status Change: No Is the patient on CPAP, BIPAP,: No Physician Orders Song Lyricist (06/23/25 ) Chest Portable (06/23/25 00:26) Sodium Chloride 0.9% (06/23/25 01:45) Vital Signs Date Time Temp Pulse Resp B/P (MAP) Pulse Ox O2 Delivery O2 Flow Rate FiO2 06/23/25 01:17 20 96 Nasal Cannula* 4 36 06/23/25 00:17 98.1 104 16 124/65 94 98.1 06/23/25 00:16 16 95 Nasal Cannula* 4 36 Laboratory Tests Test 06/23/25 00:48 White Blood Count 7.3 10^3/uL (4.4-10.8) Medications Medications Dose Ordered Sig/Elaine Route Start Time Stop Time Status Last Admin Dose Admin Albuterol 2.5 mg ONCE ONCE NEB 06/23/25 01:00 06/23/25 01:01 DC 06/23/25 01:17 Ipratropium [place] 1 mg ONCE ONCE NEB 06/23/25 01:00 06/23/25 01:01 DC 06/23/25 01:17 Departure 1 Departure Time of Disposition: 02:21 Impression: Primary Impression: Hypoxemia Additional Impressions: COPD (chronic obstructive pulmonary disease) Supplemental oxygen dependent Disposition: 01 HOME / SELF CARE / HOMELESS Condition: Stable Additional Instructions: Additional instructions: Please read all instructions provided in this packet carefully. You MUST follow-up with your primary care/family doctor in 1 to 2 days. If you are unable to see your primary care/family doctor, please return to our emergency room for re-assessment and re-evaluation in 1 to 2 days. Return to the emergency room here in our facility or to the nearest ER [facility] if your symptoms change or worsen. CONSULTATIONS: you MUST Follow-up for consultation as soon as possible with: -pulmonology in 1-2 days. Please call for appointment. You MUST call the consultants office yourself to make an appointment. You may need to arrange that through your insurance and/or your primary/family doctor. If you are unable to see the [facility] consultant in 1 to 2 days, you must return to our emergency room (or any other ER of your choice) for re-assessment and re- evaluation. Adequate fluid hydration. Although you have been discharged from the Emergency Department, this does not mean that you have a "clean bill of health". No definitive diagnosis for your symptoms has been made today. It is possible that you are in the process of developing a serious illness. This is why you must return to the ED without fail if any new or worsening symptoms develop. Below is a copy of your radiological report for follow up: [place] [address] Ph: [phone] DIAGNOSTIC IMAGING Diagnostic Imaging Report : [id number] Signed PATIENT: NATIVIDAD URBAN ACCT: [id number] UNIT: [id number] : 1970 LOC: ER ROOM / BED: / AGE / SEX: 55 / F ADM STATUS: REG ER SERVICE [id number] ORDERING PHYSICIAN: SRIRAM GRACE DO PROCEDURE(s): CXRP - CHEST PORTABLE REASON: sob ORDER NUMBER(s): [id number], ACCESSION NUMBER(s): [id number] CHEST RADIOGRAPH Indication: sob Technique: 1 view Comparison: XY CHEST PORTABLE on DOS: 06/19/25, XY CHEST PORTABLE on DOS: 04/17 06/10, XY CHEST PORTABLE on DOS: 05/11/25, XY CHEST PORTABLE on DOS: 10/19/24, XY CHEST PORTABLE on DOS: 10/18/24 FINDINGS: Lines and Tubes: None. Lungs/Pleura: Hyperexpanded lungs with similar coarse bilateral interstitial markings. Previous right mid to lower lung consolidation appears resolved. No evident pleural abnormality. Cardiomediastinum: Unremarkable. Other: No acute osseous abnormality. IMPRESSION: 1. Emphysematous appearing lungs without acute cardiopulmonary abnormality. ATED BY: MARTINA FREEMAN MD DICTATED DATE/TIME: 06/23/25210 SIGNED BY: MARTINA FREEMAN MD SIGNED DATE/TIME: 06/23/25210 CC: Discharged With: Self SRIRAM GRACE DO Jun 23, 2025 01:16
[2025-06-23 01:17] VITALS: RESP 20; O2SAT 96
[2025-06-23] MEDS: ALBUTEROL SULF 2.5 MG/0.5ML(0.5%) NEB SOLN NEB ONE (01:17)
[2025-06-23] MEDS: IPRATROPIUM BROM 0.5 MG/2.5ML INH SOL NEB ONE (01:17)
[2025-06-23 01:25] LABS: Alanine Aminotransferase 22 U/L (7-40); Albumin 4.5 g/dL (3.2-4.8); Alkaline Phosphatase 71 U/L (46-116); BUN/Creatinine Ratio 15.4 (10.0-20.0); Calcium 10.0 mg/dL (8.7-10.4); Glucose 104 mg/dL (74-106); Potassium 4.6 mmol/L (3.5-5.1); Sodium 138 mmol/L (136-145); Total Protein 6.6 g/dL (5.7-8.2)
[2025-06-23 01:26] LABS: Bilirubin, Total 0.3 mg/dL (0.2-1.0)
[2025-06-23 01:32] LABS: Anion Gap 7.99999 (5-15); Blood Urea Nitrogen 8 mg/dL (9-23); Chloride 90 mmol/L (98-107)
[2025-06-23 01:35] LABS: Carbon Dioxide > 40 mmol/L (20-31)
[2025-06-23] MEDS: SODIUM CHLORIDE 0.9% 1,000 ML IV ONE (01:45)
[2025-06-23 02:11] VITALS: PULSE 95
--- NOTE | 2025-06-23 02:14 | DVH ---
CHEST RADIOGRAPH Indication: sob Technique: 1 view Comparison: XY CHEST PORTABLE on DOS: 06/19/25, XY CHEST PORTABLE on DOS: 05/14/25, XY CHEST PORTABLE o n DOS: 05/11/25, XY CHEST PORTABLE on DOS: 10/19/24, XY CHEST PORTABLE on DOS: 10/18/24 FINDINGS: Lines and Tubes: None. Lungs/Pleura: Hyperexpanded lungs with similar coarse bilateral interstitial markings. Previous right mid to lower lung consolidation appears resolved. No evident pleural abnormality. Cardiomediastinum: Unremarkable. Other: No acute osseous abnormality. IMPRESSION: 1. Emphysematous appearing lungs without acute cardiopulmonary abnormality.
--- NOTE | 2025-06-23 02:15 | ECG ---
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
[2025-06-23] MEDS: methylPREDNISolone SOD SUCC 125 MG/2 ML VL IV ONE (02:46)
[2025-06-23 02:58] LABS: Alanine Aminotransferase 20 U/L (7-40); Albumin 4.1 g/dL (3.2-4.8); Alkaline Phosphatase 65 U/L (46-116); Anion Gap 9 (5-15); BUN/Creatinine Ratio 12.2 (10.0-20.0); Bilirubin, Total 0.3 mg/dL (0.2-1.0); Blood Urea Nitrogen 6 mg/dL (9-23); Calcium 9.8 mg/dL (8.7-10.4); Carbon Dioxide 37 mmol/L (20-31); Chloride 91 mmol/L (98-107); Glucose 116 mg/dL (74-106); Potassium 4.7 mmol/L (3.5-5.1); Sodium 137 mmol/L (136-145); Total Protein 6.1 g/dL (5.7-8.2)
[2025-06-24] MEDS ORDERED: DICY10CA PO (21:25)
== END 2025-06-23 04:23 | disposition home or self-care (01) ==
LOC: EDBD 00:09 → ER 00:09
DX: J44.9 Chronic obstructive pulmonary disease, unspecified (principal); R09.02 Hypoxemia; F20.9 Schizophrenia, unspecified; Z53.20 Procedure and treatment not carried out because of patient's decision for unspecified reasons; Z87.440 Personal history of urinary (tract) infections; Z99.81 Dependence on supplemental oxygen
CPT/HCPCS: 36415; 71045; 80053; 83880; 84484; 85025; 93005; 94640; 99285; J2919

== ENCOUNTER 2025-06-24 19:01 | Emergency (ER) | payer OTHER ==
[~2025-06-24] VITALS: Ht 154.9 cm; Wt 50.0 kg
[2025-06-24 19:07] VITALS: BP 121/83; TEMP 98.9
[2025-06-24 20:01] LABS: Hematocrit 42.5 % (36.0-46.0); Hemoglobin 14.4 g/dL (12.2-16.2); Mean Corpuscular Hemoglobin 32.4 pg (28.0-32.0); Mean Corpuscular Volume 95.6 fL (80.0-100.0); Nucleated Red Blood Cells % 0.1 %
[2025-06-24 20:03] LABS: Potassium 4.3 mmol/L (3.5-5.1); Sodium 139 mmol/L (136-145)
[2025-06-24 20:04] LABS: Anion Gap 7 (5-15)
[2025-06-24 20:05] LABS: Calcium 9.4 mg/dL (8.7-10.4)
[2025-06-24 20:10] LABS: BUN/Creatinine Ratio 16.0 (10.0-20.0); Lipase 44 U/L (12-53)
[2025-06-24 20:13] LABS: Blood Urea Nitrogen 8 mg/dL (9-23); Carbon Dioxide 36 mmol/L (20-31); Chloride 96 mmol/L (98-107); Glucose 131 mg/dL (74-106)
--- NOTE | 2025-06-24 20:31 | ED.PDOC ---
GI ASSESSMENT HPI Comments This is a 55 year old female KITTY presenting to the ED with chief complaint of abdominal pain. Patient reports that she has been experiencing chronic abdominal pain due to chronic pancreatitis, with associated diarrhea for a few days now. Patient is a frequent flier in the ED and has been seen multiple times for the same abdominal pain complaint. Patient denies any N/V, dizziness, fever, chills, dysuria, or flank pain. Chief Complaint: Abdominal Pain Time Seen by MD: 20:29 Primary Care Provider: UNKNOWN Reviewed Notes: Nurses Notes, Supervisor Fertilizer Processing Notes, Medications, Allergies Allergies: Coded Allergies: Lactose (Verified Allergy, Severe, 11/15/24) Azithromycin (Verified Allergy, Unknown, 05/11/25) Home Meds Active Scripts Albuterol Sulfate (Albuterol Sulfate Hfa) 108 Mcg/Act Aer, 108 MCG IN Q4HPRN PRN for 30 Days, #1 AER prn shortness of breath Prov:JOYA PLATT ROTARY DRIER OPERATOR 06/22/25 Loperamide Hcl (Imodium) 2 Mg Cp, 2 MG PO Q6HPRN PRN for 30 Days, #10 CAP Prov:JOYA PLATT ROTARY DRIER OPERATOR 06/22/25 Tiotropium [place] Monohydrate (Spiriva Respimat) 2.5 Mcg/Act Spr, 2.5 MCG IN DAILY for 30 Days, #10 SPRAY 3 Refills 2 puffs daily Prov:JOYA PLATT EZ 06/22/25 Doxycycline (Monohydrate) (Doxycycline) 100 Mg Cap, 100 MG PO BID for 7 Days, #14 CAP Prov:JOYA PLATT EZ 06/22/25 Methylprednisolone (Medrol Dosepak) 4 Mg Shyam, 4 MG PO UD, #21 TAB UAD Prov:JOYA PLATT EZ 06/22/25 Divalproex Sodium (Divalproex Sodium) 500 Mg Tab, 500 MG PO BID for 30 Days, #60 MG Prov:GIULIAJOYA Kathleen HUI 05/19/25 Haloperidol (Haldol) 5 Mg Tb, 3 MG PO BID for 30 Days, #60 MG Prov:JOYA PLATT EZ 05/19/25 Benztropine Mesylate (Benztropine Mesylate) 1 Mg Tab, 1 MG PO BID for 30 Days, #60 MG Prov:JOYA PLATT Kathleen HUI 05/19/25 Trazodone Hcl (Trazodone Hcl) 50 Mg Tab, 75 MG PO HS for 30 Days, #45 MG Prov:JOYA PLATT ROTARY DRIER OPERATOR 05/19/25 Albuterol Sulfate (Albuterol Sulfate Hfa) 108 Mcg/Act Aer, 108 MCG IN Q4HP PRN for 30 Days, #1 AER 2 puffs inhalation Prov:JOYA PLATT ROTARY DRIER OPERATOR 05/13/25 Reported Medications Albuterol Sulfate (Albuterol Sulfate (5 mg/ml) 0.5%) 1 Neb Neb, 1 NEB IN, INH 10/19/24 Information Source: Patient, Emergency Med Personnel Mode of Arrival: EMS Timing: Days Duration: Since onset Prehospital treatment: None Quality: Aching Vomitus: None Stool: Watery Severity: Moderate Recent: None Recent Hx of: None Pain Location: Diffuse, Epigastric Modifying Factors: Nothing Associated sign and symptoms: Diarrhea, Abdominal Pain Past Medical History PAST MEDICAL HISTORY: COPD, Gallstones, Schizophrenia, UTI'S Past Medical History (Other): History of chronic pancreatitis per patient Surgical History: Denies all surgeries PORTFOLIO MANAGEMENT MARKETING History: Denies all PORTFOLIO MANAGEMENT MARKETING Hx Family History Family History: Reviewed,noncontributory to illness Social History Smoker: Quit Less Than 1 Year, Cigarettes Alcohol: Denies ETOH Use Drugs: Denies Drug Use Lives In: Assisted Care Constitutional: denies: chills, diaphoresis, fatigue, fever, malaise, sweats, weakness, others EENTM: denies: blurred vision, double vision, ear bleeding, ear discharge, ear drainage, ear pain, ear ringing, eye pain, eye redness, hearing loss, mouth pain, mouth swelling, nasal discharge, nose bleeding, nose congestion, nose pain, photophobia, tearing, throat pain, throat swelling, voice changes, others Respiratory: denies: cough, hemoptysis, orthopnea, SOB at rest, shortness of breath, SOB with excertion, stridor, wheezing, others Cardiovascular: denies: chest pain, dizzy spells, diaphoresis, Dyspnea on exertion, edema, irregular heart beat, left arm pain, lightheadedness, palpitations, PND, syncope, others Gastrointestinal: reports: abdominal pain, diarrhea; denies: abdomen distended, blood streaked bowels, constipated, dysphagia, difficulty swallowing, hematemesis, melena, nausea, poor appetite, poor fluid intake, rectal bleeding, rectal pain, vomiting, others Genitourinary: denies: abnormal vagina bleeding, burning, dyspareunia, dysuria, flank pain, frequency, hematuria, incontinence, pain, , vagina discharge, urgency, others Neurological: denies: dizziness, fainting, headache, left sided numbness, left sided weakness, numbness, paresthesia, pre-existing deficit, right sided numbness, right sided weakness, seizure, speech problems, tingling, tremors, wea kness, others Musculoskeletal: denies: back pain, gout, joint pain, joint swelling, muscle pain, muscle stiffness, neck pain, others Integumetry: denies: bruises, change in color, change in hair/nails, dryness, l aceration, lesions, lumps, rash, wounds, others Allergic/Immunocompromised: denies: Difficulty Healing, Frequent Infections, Hives, Itching, others Hematologic/Lymphatic: denies: anemia, blood clots, easy bleeding, easy bruising, swollen glands, others Endocrine: denies: excessive hunger, excessive sweating, excessive thirst, excessive urination, flushing, intolerance to cold, intolerance to heat, unexplained weight gain, unexplained weight loss, others Psychiatric: denies: anxiety, bipolar disorder, depression, hopeless, panic disorder, schizophrenia, sleepless, suicidal, others All Other Systems: Reviewed and Negative Physical Exam General Appearance: Moderate Distress ([id number]-[id number] distress due to belly pain concerns.), Normal HEENT: Normal ENT Inspection, Pharynx Normal, TMs Normal Neck: Full Range of Motion, Non-Tender, Normal, Normal Inspection Respiratory: Chest Non-Tender, Lungs Clear, No Accessory Muscle Use, No Res piratory Distress, Normal Breath Sounds Cardiovascular: No Edema, No JVD, No Murmur, No Gallop, Normal Peripheral Pulses, Regular Rate/Rhythm Breast Exam: Deferred Gastrointestinal: Other (Diffuse epigastric tenderness to palpation throughout. No signs of trauma. No pulsatile masses.) Genitalia: Deferred Pelvic: Deferred Rectal: Deferred Extremities: No calf tenderness, Normal capillary refill, No pedal edema Musculoskeletal : Apperance: Normal Neurologic: Alert Cerebellar Function: NOT DONE Reflexes: NOT DONE Skin: Dry, Normal Color, Warm Lymphatic: No Adenopathy Was a procedure done? Was a procedure done?: No GI differential Dx Differential Diagnosis: Other (Chronic abdominal pain, pancreatitis, electrolyte abnormality, sepsis) X-Ray, Labs, Meds, VS Vital Signs Date Time Temp Pulse Resp B/P (MAP) Pulse Ox O2 Delivery O2 Flow Rate FiO2 06/24/25 19:07 98.9 97 18 121/83 98 98.9 Lab Test 06/24/25 19:38 Range/Units White Blood Count 5.2 # 4.4-10.8 10^3/uL Red Blood Count 4.45 4.0-5.20 10^6/uL Hemoglobin 14.4 12.2-16.2 g/dL Hematocrit 42.5 36.0-46.0 % Mean Corpuscular Volume 95.6 80.0-100.0 fL Mean Corpuscular Hemoglobin 32.4 H 28.0-32.0 pg Mean Corpuscular Hemoglobin Concent 33.9 32.0-36.0 g/dL Red Cell Distribution Width 15.4 H 11.8-14.3 % Platelet Count 178 140-450 10^3/uL Mean Platelet Volume 8.4 6.9-10.8 fL Neutrophils (%) (Auto) 76.5 37.0-80.0 % Lymphocytes (%) (Auto) 15.3 10.0-50.0 % Monocytes (%) (Auto) 8.0 0.0-12.0 % Eosinophils (%) (Auto) 0.0 0.0-7.0 % Basophils (%) (Auto) 0.2 0.0-2.0 % Neutrophils # (Auto) 4.0 1.6-8.6 10 ^3/uL Lymphocytes # (Auto) 0.8 0.4-5.4 10 ^3/uL Monocytes # (Auto) 0.4 0-1.3 10 ^3/uL Eosinophils # (Auto) 0 0-0.8 10 ^3/uL Basophils # (Auto) 0 0-0.2 10 ^3/uL Nucleated Red Blood Cells 0.1 % Sodium Level 139 136-145 mmol/L Potassium Level 4.3 3.5-5.1 mmol/L Chloride Level 96 L 98-107 mmol/L Carbon Dioxide Level 36 H 20-31 mmol/L Anion Gap 7 5-15 Blood Urea Nitrogen 8 L 9-23 mg/dL Creatinine 0.50 L 0.550-1.02 mg/dL Glomerular Filtration Rate Calc 110 >90 mL/min BUN/Creatinine Ratio 16.0 10.0-20.0 Serum Glucose 131 H 74-106 mg/dL Calcium Level 9.4 8.7-10.4 mg/dL Lipase 44 12-53 U/L Current Medications Medications (Trade) Dose Ordered Sig/Elaine Route Start Time Stop Time Status Last Admin Dicyclomine HCl (Bentyl Injection) 20 mg ONCE ONCE IM 06/24/25 19:30 06/24/25 19:31 DC 06/24/25 21:20 X-Ray, Labs, Meds, VS Comment All studies performed the ED were evaluated by me personally. Serum studies were unremarkable for any systemic concerns. Lipase was unremarkable for any pancreatic involvement. Patient will be sent home with the medication to utilize for belly pain and has been advised again to follow up with primary care provider for continued evaluation. Time of 1ST Reevaluation: 21:24 Reevaluation 1ST: Improved Consultation: PCP, GI Patient Education/Counseling: Diagnosis, Treatment Family Education/Counseling: Diagnosis, Treatment, No Family Present SEPSIS Sepsis Screen Date sepsis recognized/suspect: Jun 24, 2025 Time Sepsis recognized/suspect: 1907 Recent Procedure: No On Antibiotic Therapy: No Respiratory Rate >20: No Heart Rate >90: Yes Temp<36 C (96.8 F) or >38.3 C: No SBP <90 or MAP <65 mmHG: No New Acute Mental Status Change: No Is the patient on CPAP, BIPAP,: No Vital Signs Date Time Temp Pulse Resp B/P (MAP) Pulse Ox O2 Delivery O2 Flow Rate FiO2 06/24/25 19:07 98.9 97 18 121/83 98 98.9 Laboratory Tests Test 06/24/25 19:38 White Blood Count 5.2 10^3/uL (4.4-10.8) # Medications Medications Dose Ordered Sig/Elaine Route Start Time Stop Time Status Last Admin Dose Admin Dicyclomine HCl 20 mg ONCE ONCE IM 06/24/25 19:30 06/24/25 19:31 DC 06/24/25 21:20 Departure 1 Departure Time of Disposition: 21:25 Impression: Primary Impression: Abdominal pain Disposition: HOME / SELF CARE / HOMELESS Condition: Stable Additional Instructions: Advised medication as needed for symptomatic relief as well as follow up with the primary care provider for conversation is related to today's visit and a GI referral and evaluation. e-Prescriptions Dicyclomine Hcl (BENTYL CAPSULE) 10 Mg Cp 1 CAP PO Q6HPRN, #20 CAP 0 Refills Prov: MAMI ESTRADA PAC 06/24/25 Discharged With: Self Critical Care Note Critical Care Time?: No Stability Stability form required: No Heart Score Heart Score: Heart Score Response (Comments) Value History N/A 0 EKG N/A 0 Age N/A 0 Risk Factors N/A 0 Troponin N/A 0 Total 0 I personally scribed for MAMI ESTRADA PAC ([email or web address]) on 06/24/25 at 20:31. Electronically submitted by Ramón Alvarado ([email or web address]). MAMI ESTRADA PAC Jun 24, 2025 20:31
[2025-06-24] MEDS: DICYCLOMINE HCL (10MG/ML) 2 ML AMPULE IM ONE (21:20)
[2025-06-24] MEDS ORDERED: DICY10CA PO (21:25)
[2025-06-24 21:44] VITALS: PULSE 84; RESP 22; O2SAT 94
== END 2025-06-24 21:26 | disposition home or self-care (01) ==
LOC: EDBD 19:01 → ER 19:01 → EDUNIT# 19:01 → ER 21:26
DX: R10.13 Epigastric pain (principal); J44.9 Chronic obstructive pulmonary disease, unspecified; K86.1 Other chronic pancreatitis; F20.9 Schizophrenia, unspecified; Z88.1 Allergy status to other antibiotic agents; Z87.440 Personal history of urinary (tract) infections; Z79.899 Other long term (current) drug therapy; Z87.891 Personal history of nicotine dependence
CPT/HCPCS: 36415; 80048; 83690; 85025; 96372; 99283; J0500

== ENCOUNTER 2025-06-27 12:53 | Inpatient (IN) | payer OTHER ==
[2025-06-27] VITALS (7 sets, daily range): BP systolic 116; BP diastolic 82; PULSE 84–96; RESP 16–98; TEMP 98.2; O2SAT 94–100
[~2025-06-27] VITALS: Ht 157.5 cm; Wt 45.3 kg
[~2025-06-27 12:53] MED LIST changes: +DICY10CA PO
--- NOTE | 2025-06-27 13:05 | ED.PDOC ---
SOB-HPI HPI Comments This is a 55 year-old female who presents to the ED via EMS with a chief complaint of SOB for X1 week. Patient reports additional symptoms of productive cough with green mucus noted. Patient is on 3L of 02 at home. Patient has no further complaints or modifying factors at this time and otherwise denies chest pain, dizziness, palpitations, fever, or chills. Chief Complaint: SOB Time Seen by MD: 12:59 Primary Care Provider: UNKNOWN Reviewed notes: Nurses Notes, Medications, Allergies (Allergies listed above) Information Source: Patient, Emergency Med Personnel Mode of Arrival: EMS Severity: Moderate Timing: Weeks Duration: Since onset Context: At Rest, With Light Exertion, With Heavy Exertion History of: COPD, Other (Bronchitis, Pnemonia, GERD, HTN ) Associated Signs and Symptoms: Cough If cough with SOB: Green Past Medical History PAST MEDICAL HISTORY: COPD, Gallstones, GERD, HTN, Schizophrenia, UTI'S Surgical History: Denies all surgeries AIR GUN OPERATOR History: Denies all AIR GUN OPERATOR Hx Family History Family History: Reviewed,noncontributory to illness Social History Smoker: Quit Less Than 1 Year, Cigarettes Alcohol: Denies ETOH Use Drugs: Denies Drug Use Lives In: Assisted Care Constitutional: denies: chills, diaphoresis, fatigue, fever, malaise, sweats, weakness, others EENTM: denies: blurred vision, double vision, ear bleeding, ear discharge, ear drainage, ear pain, ear ringing, eye pain, eye redness, hearing loss, mouth pain, mouth swelling, nasal discharge, nose bleeding, nose congestion, nose pain, photophobia, tearing, throat pain, throat swelling, voice changes, others Respiratory: reports: cough, SOB at rest, shortness of breath, SOB with excertion; denies: hemoptysis, orthopnea, stridor, wheezing, others Cardiovascular: denies: chest pain, dizzy spells, diaphoresis, Dyspnea on exertion, edema, irregular heart beat, left arm pain, lightheadedness, palpitations, PND, syncope, others Gastrointestinal: denies: abdomen distended, abdominal pain, blood streaked bowels, constipated, diarrhea, dysphagia, difficulty swallowing, hematemesis, melena, nausea, poor appetite, poor fluid intake, rectal bleeding, rectal pain, vomiting, others Genitourinary: denies: abnormal vagina bleeding, burning, dyspareunia, dysuria, flank pain, frequency, hematuria, incontinence, pain, , vagina discharge, urgency, others Neurological: denies: dizziness, fainting, headache, left sided numbness, left sided weakness, numbness, paresthesia, pre-existing deficit, right sided numbness, right sided weakness, seizure, speech problems, tingling, tremors, weakness, others Musculoskeletal: denies: back pain, gout, joint pain, joint swelling, muscle pain, muscle stiffness, neck pain, others Integumetry: denies: bruises, change in color, change in hair/nails, dryness, laceration, lesions, lumps, rash, wounds, others Allergic/Immunocompromised: denies: Difficulty Healing, Frequent Infections, Hives, Itching, others Hematologic/Lymphatic: denies: anemia, blood clots, easy bleeding, easy bruising, swollen glands, others Endocrine: denies: excessive hunger, excessive sweating, excessive thirst, excessive urination, flushing, intolerance to cold, intolerance to heat, unexplained weight gain, unexplained weight loss, others Psychiatric: denies: anxiety, bipolar disorder, depression, hopeless, panic disorder, schizophrenia, sleepless, suicidal, others All Other Systems: Reviewed and Negative Physical Exam General Appearance: Moderate Distress, Thin HEENT: Normal ENT Inspection, Pharynx Normal, TMs Normal Neck: Full Range of Motion, Non-Tender, Normal, Normal Inspection Respiratory: Accessory Muscle Use, Chest Non-Tender, Decreased Breath Sounds, Respiratory Distress, Wheezing Cardiovascular: No Edema, No JVD, No Murmur, No Gallop, Tachycardia Breast Exam: Deferred Gastrointestinal: No Organomegaly, Non Tender, No Pulsatile Mass, Normal Bowel Sounds, Soft Genitalia: Deferred Pelvic: Deferred Rectal: Deferred Extremities: No calf tenderness, Normal capillary refill, Normal inspection, Normal range of motion, Non-tender, No pedal edema Musculoskeletal : Apperance: Normal Neurologic: Alert, pool table mechanic II-XII nml as Tested, No Motor Deficits, Normal Affect, Normal Mood, No Sensory Deficits Cerebellar Function: Normal Reflexes: Normal Skin: Dry, Normal Color, Warm Lymphatic: No Adenopathy EKG EKG : Pulse Rate (adult): 94 [place]: Normal Cardiac Rhythm: NSR Hypertrophy: LAE, None Was a procedure done? Was a procedure done?: No Differential Dx Differential Diagnosis: Asthma, Bronchitis, CHF, COPD, Pneumonia, Sinusitis X-Ray, Labs, Meds, VS Vital Signs Date Time Temp Pulse Resp B/P (MAP) Pulse Ox O2 Delivery O2 Flow Rate FiO2 06/27/25 14:10 18 98 Nasal Cannula* 2 28 06/27/25 13:33 20 95 Nasal Cannula* 3 32 06/27/25 13:30 98.2 96 16 116/82 (93) 95 98.2 06/27/25 13:08 94 06/27/25 13:06 98.2 96 16 116/83 95 98.2 Lab Test 06/27/25 14:46 06/27/25 14:06 Range/Units Troponin I High Sensitivity 5 4 </=34 ng/L White Blood Count 13.8 #H 4.4-10.8 10^3/uL Red Blood Count 4.68 4.0-5.20 10^6/uL Hemoglobin 14.6 12.2-16.2 g/dL Hematocrit 45.1 36.0-46.0 % Mean Corpuscular Volume 96.4 80.0-100.0 fL Mean Corpuscular Hemoglobin 31.2 28.0-32.0 pg Mean Corpuscular Hemoglobin Concent 32.4 32.0-36.0 g/dL Red Cell Distribution Width 15.5 H 11.8-14.3 % Platelet Count 272 140-450 10^3/uL Mean Platelet Volume 8.4 6.9-10.8 fL Neutrophils (%) (Auto) 90.2 H 37.0-80.0 % Lymphocytes (%) (Auto) 7.1 L 10.0-50.0 % Monocytes (%) (Auto) 2.2 0.0-12.0 % Eosinophils (%) (Auto) 0.4 0.0-7.0 % Basophils (%) (Auto) 0.1 0.0-2.0 % Neutrophils # (Auto) 12.4 H 1.6-8.6 10 ^3/uL Lymphocytes # (Auto) 1.0 0.4-5.4 10 ^3/uL Monocytes # (Auto) 0.3 0-1.3 10 ^3/uL Eosinophils # (Auto) 0 0-0.8 10 ^3/uL Basophils # (Auto) 0 0-0.2 10 ^3/uL Nucleated Red Blood Cells 0.0 % Sodium Level 140 136-145 mmol/L Potassium Level 4.3 3.5-5.1 mmol/L Chloride Level 96 L 98-107 mmol/L Carbon Dioxide Level 36 H 20-31 mmol/L Anion Gap 8 5-15 Blood Urea Nitrogen 6 L 9-23 mg/dL Creatinine 0.50 L 0.550-1.02 mg/dL Glomerular Filtration Rate Calc 110 >90 mL/min BUN/Creatinine Ratio 12.0 10.0-20.0 Serum Glucose 95 74-106 mg/dL Calcium Level 9.2 8.7-10.4 mg/dL B-Type Natriuretic Peptide 38.25 0-100 pg/mL Current Medications Medications (Trade) Dose Ordered Sig/Elaine Route Start Time Stop Time Status Last Admin Ipratropium [place] (Atrovent Medneb) 1 mg ONCE ONCE [facility] 06/27/25 13:15 06/27/25 13:16 DC 06/27/25 14:10 Albuterol (Ventolin Medneb) 20 mg ONCE ONCE [facility] 06/27/25 13:15 06/27/25 13:16 DC 06/27/25 14:10 [place] [address] Ph: [phone] DIAGNOSTIC IMAGING Diagnostic Imaging Report : [id number] Signed PATIENT: NATIVIDAD URBAN MACCT: [id number] UNIT: [id number] : 1970 LOC: ER ROOM / BED: / AGE / SEX: 55 / F ADM STATUS: REG ER SERVICE 1309 ORDERING PHYSICIAN: RACQUEL WOODSON MD PROCEDURE(s): CXRP - CHEST PORTABLE REASON: SOB ORDER NUMBER(s): [id number], ACCESSION NUMBER(s): [id number] XY CHEST PORTABLE, HISTORY: SOB COMPARISON: XY CHEST PORTABLE on DOS: 06/23/25, XY CHEST PORTABLE on DOS: 06/19/25, XY CHEST PORTABLE on DOS: 05/14/25 XY CHEST PORTABLE on DOS: 06/23/25, XY CHEST PORTABLE on DOS: 06/19/25, XY CHEST PORTABLE on DOS: 05/14/25 TECHNICAL DATA: 1 view of the chest was obtained. FINDINGS: Lines and tubes: None Cardiomediastinal silhouette: normal Pulmonary vasculature: normal Lung expansion: normal Lung airspace: Similar emphysematous changes of the lungs. Lung interstitium: normal Pleura: normal Pneumothorax: no Bones: Unremarkable Other: no IMPRESSION: No acute intrathoracic abnormality. Similar emphysematous changes of the lungs. The patient's CBC shows an elevated white blood cell count of 13.8. The chemistry panel is within normal limits. The BNP is within normal limits The patient was given a breathing treatment of albuterol and Atrovent The patient was given Solu-Medrol 125 mg IV push The patient is being admitted at this time. Images Reviewed?: Images reviewed and evaluated by me Time of 1ST Reevaluation: 13:26 Reevaluation 1ST: Unchanged Patient Education/Counseling: Diagnosis, Treatment, Prognosis Family Education/Counseling: No Family Present SEPSIS Sepsis Screen Physician Orders Med Neb Initial Treatment (06/27/25 13:09) Chest Portable (06/27/25 13:09) Heplock Iv (06/27/25 13:09) Pulse Oximetry (06/27/25 13:09) Oxygen (06/27/25 13:09) Gas Station Supervisor (06/27/25 13:09) Blood Pressure (06/27/25 13:09) Electrocardigram (06/27/25 13:09) Troponin-I Hs (06/27/25 16:09) Electrocardigram (06/27/25 14:09) Electrocardigram (06/27/25 16:09) Vital Signs Date Time Temp Pulse Resp B/P (MAP) Pulse Ox O2 Delivery O2 Flow Rate FiO2 06/27/25 14:10 18 98 Nasal Cannula* 2 28 06/27/25 13:33 20 95 Nasal Cannula* 3 32 06/27/25 13:30 98.2 96 16 116/82 (93) 95 98.2 06/27/25 13:08 94 06/27/25 13:06 98.2 96 16 116/83 95 98.2 Laboratory Tests Test 06/27/25 14:06 White Blood Count 13.8 10^3/uL (4.4-10.8) #H Medications Medications Dose Ordered Sig/Elaine Route Start Time Stop Time Status Last Admin Dose Admin Albuterol 20 mg ONCE ONCE [facility] 10/12/25 13:15 06/27/25 13:16 DC 06/27/25 14:10 Ipratropium [place] 1 mg ONCE ONCE [facility] 06/27/25 13:15 06/27/25 13:16 DC 06/27/25 14:10 Departure 1 Departure Time of Disposition: 17:53 Impression: Primary Impression: COPD with acute exacerbation Additional Impression: Acute hypoxic respiratory failure Disposition: ADMITTED INPATIENT Admit to: [facility] Condition: Fair Critical Care Note Critical Care Time?: Yes (45 min-critical care time only) Stability Stability form required: Yes Unstable for transfer: Telemetry monitoring (Telemetry monitoring required), ED Physician Assesment (Clinical assesment) Heart Score Heart Score: Heart Score Response (Comments) Value History Moderate Suspicious 1 EKG Normal 0 Age 45-64 1 Risk Factors 1 or 2 risk factors 1 Troponin N/A 0 Total 3 I personally scribed for RACQUEL WOODSON MD ([email or web address]) on 06/27/25 at 13:05. Electronically submitted by Isabel Ashby ([email or web address]). I personally scribed for RACQUEL WOODSON MD ([email or web address]) on 06/27/25 at 13:08. Electronically submitted by Isabel Ashby ([email or web address]). I personally scribed for RACQUEL WOODSON MD ([email or web address]) on 06/27/25 at 14:08. Electronically submitted by Isabel Ashby ([email or web address]). I personally scribed for RACQUEL WOODSON MD ([email or web address]) on 06/27/25 at 14:17. Electronically submitted by Isabel Ashby ([email or web address]). RACQUEL WOODSON MD Jun 27, 2025 13:05
[2025-06-27] MEDS: methylPREDNISolone SOD SUCC 125 MG/2 ML VL IV ONE (13:55)
--- NOTE | 2025-06-27 13:57 | DVH ---
XY CHEST PORTABLE, HISTORY: SOB COMPARISON: XY CHEST PORTABLE on DOS: 06/23/25, XY CHEST PORTABLE on DOS: 06/19/25, XY CHEST PORTABLE o n DOS: 05/14/25 XY CHEST PORTABLE on DOS: 06/23/25, XY CHEST PORTABLE on DOS: 06/19/25, XY CHEST PORTABLE on DOS: TECHNICAL DATA: 1 view of the chest was obtained. FINDINGS: Lines and tubes: None Cardiomediastinal silhouette: normal Pulmonary vasculature: normal Lung expansion: normal Lung airspace: Similar emphysematous changes of the lungs. Lung interstitium: normal Pleura: normal Pneumothorax: no Bones: Unremarkable Other: no IMPRESSION: No acute intrathoracic abnormality. Similar emphysematous changes of the lungs.
[2025-06-27] MEDS: ALBUTEROL SULF 2.5 MG/0.5ML(0.5%) NEB SOLN HHN ONE (14:10)
[2025-06-27] MEDS: IPRATROPIUM BROM 0.5 MG/2.5ML INH SOL HHN ONE (14:10)
[2025-06-27 14:44] LABS: Hematocrit 45.1 % (36.0-46.0); Hemoglobin 14.6 g/dL (12.2-16.2); Mean Corpuscular Hemoglobin 31.2 pg (28.0-32.0); Mean Corpuscular Volume 96.4 fL (80.0-100.0); Nucleated Red Blood Cells % 0.0 %
[2025-06-27 14:51] LABS: Potassium 4.3 mmol/L (3.5-5.1); Sodium 140 mmol/L (136-145)
[2025-06-27 14:52] LABS: Anion Gap 8 (5-15); Calcium 9.2 mg/dL (8.7-10.4)
[2025-06-27 14:57] LABS: BUN/Creatinine Ratio 12.0 (10.0-20.0); Glucose 95 mg/dL (74-106)
[2025-06-27 15:12] LABS: Blood Urea Nitrogen 6 mg/dL (9-23); Carbon Dioxide 36 mmol/L (20-31); Chloride 96 mmol/L (98-107)
--- NOTE | 2025-06-27 16:12 | DVHHP2 ---
History of Present Illness History of Present Illness Silvia White is a 55-year-old female with a history of chronic obstructive pulmonary disease, hypertension, schizophrenia, and chronic respiratory failure presenting to the ER with complaints of shortness of breath and productive cough with green mucus for the past week. The patient reports shortness of breath lasting one week. She describes a productive cough with green mucus. The patient normally requires 3 liters of oxygen at home and has had multiple previous hospital admissions for COPD exacerbations. Review of Systems Respiratory: No: Cough, Dry, Shortness of breath, SOB with excertion, Wheezing, Hemoptysis, Pleuritic Pain, Sputum, Wheezing, Other Gastrointestinal: No: Nausea, Vomiting, Abdominal Pain, Diarrhea, Constipation, Melena, Hematochezia, Other Genitourinary: No Dysuria, No Frequency, No Incontinence, No Hematuria, No Retention, No Other Allergies: Coded Allergies: Lactose (Verified Allergy, Severe, 11/15/24) Azithromycin (Verified Allergy, Unknown, 05/11/25) Medications Current Medications Medications Dose Ordered Sig/Elaine Route Start Time Stop Time Status Last Admin Dose Admin Acetaminophen/ Hydrocodone Bitart 1 tab Q4HP PRN PO 06/27/25 16:15 UNV Enoxaparin Sodium 40 mg DAILY SC 06/28/25 10:00 UNV Acetaminophen 650 mg Q6HP PRN PO 06/27/25 16:15 UNV Morphine Sulfate 2 mg Q4HPRN PRN IV 06/27/25 16:15 UNV Nitroglycerin 0.4 mg Q5MINP PRN SL 06/27/25 16:15 UNV Morphine Sulfate 2 mg Q30M PRN IV 06/27/25 16:15 UNV Dicyclomine HCl 10 mg Q6HPRN PO 06/27/25 18:00 UNV Haloperidol 3 mg BID PO 06/27/25 22:00 UNV Patient Own Medication 1 mg BID PO 06/27/25 22:00 UNV Patient Own Medication 500 mg BID PO 06/27/25 22:00 UNV Albuterol 2.5 mg Q4HWA NEB 06/27/25 18:00 UNV Ipratropium [place] 0.5 mg Q4HWA NEB 06/27/25 18:00 UNV Budesonide 0.25 mg BID NEB 06/27/25 22:00 UNV Doxycycline Monohydrate 100 mg Q12HR PO 06/27/25 22:00 UNV Exam Vital Signs Vital Signs Date Time Temp Pulse Resp B/P (MAP) Pulse Ox O2 Delivery O2 Flow Rate FiO2 06/27/25 14:10 18 98 Nasal Cannula* 2 28 06/27/25 13:30 98.2 96 116/82 (93) 98.2 General Appearance: Alert, Oriented X3, Cooperative, No acute distress Respiratory: Other (wheezing in anterior lobes) Cardiovascular: Regular rate, Normal S1, Normal S2 Extremities: No clubbing, No cyanosis Skin: No rashes Labs/Xrays Labs Test 06/27/25 14:46 06/27/25 14:06 Range/Units Troponin I High Sensitivity 5 </=34 ng/L White Blood Count 13.8 #H 4.4-10.8 10^3/uL Red Blood Count 4.68 4.0-5.20 10^6/uL Hemoglobin 14.6 12.2-16.2 g/dL Hematocrit 45.1 36.0-46.0 % Mean Corpuscular Volume 96.4 80.0-100.0 fL Mean Corpuscular Hemoglobin 31.2 28.0-32.0 pg Mean Corpuscular Hemoglobin Concent 32.4 32.0-36.0 g/dL Red Cell Distribution Width 15.5 H 11.8-14.3 % Platelet Count 272 140-450 10^3/uL Mean Platelet Volume 8.4 6.9-10.8 fL Neutrophils (%) (Auto) 90.2 H 37.0-80.0 % Lymphocytes (%) (Auto) 7.1 L 10.0-50.0 % Monocytes (%) (Auto) 2.2 0.0-12.0 % Eosinophils (%) (Auto) 0.4 0.0-7.0 % Basophils (%) (Auto) 0.1 0.0-2.0 % Neutrophils # (Auto) 12.4 H 1.6-8.6 10 ^3/uL Lymphocytes # (Auto) 1.0 0.4-5.4 10 ^3/uL Monocytes # (Auto) 0.3 0-1.3 10 ^3/uL Eosinophils # (Auto) 0 0-0.8 10 ^3/uL Basophils # (Auto) 0 0-0.2 10 ^3/uL Nucleated Red Blood Cells 0.0 % Sodium Level 140 136-145 mmol/L Potassium Level 4.3 3.5-5.1 mmol/L Chloride Level 96 L 98-107 mmol/L Carbon Dioxide Level 36 H 20-31 mmol/L Anion Gap 8 5-15 Blood Urea Nitrogen 6 L 9-23 mg/dL Creatinine 0.50 L 0.550-1.02 mg/dL Glomerular Filtration Rate Calc 110 >90 mL/min BUN/Creatinine Ratio 12.0 10.0-20.0 Serum Glucose 95 74-106 mg/dL Calcium Level 9.2 8.7-10.4 mg/dL B-Type Natriuretic Peptide 38.25 0-100 pg/mL SEPSIS Sepsis Screen Date sepsis recognized/suspect: Jun 27, 2025 Time Sepsis recognized/suspect: 1305 Recent Procedure: No On Antibiotic Therapy: No Respiratory Rate >20: No Heart Rate >90: Yes Temp<36 C (96.8 F) or >38.3 C: No SBP <90 or MAP <65 mmHG: No New Acute Mental Status Change: No Is the patient on CPAP, BIPAP,: No Physician Orders Med Neb Initial Treatment (06/27/25 13:09) Chest Portable (06/27/25 13:09) Heplock Iv (06/27/25 13:09) Pulse Oximetry (06/27/25 13:09) Oxygen (06/27/25 13:09) Shipping Packer (06/27/25 13:09) Blood Pressure (06/27/25 13:09) Electrocardigram (06/27/25 13:09) Troponin-I Hs (06/27/25 16:09) Electrocardigram (06/27/25 14:09) Electrocardigram (06/27/25 16:09) Allergies (06/27/25 16:04) Code Status (06/27/25 16:04) 2 Gm Sodium Diet (06/27/25 Dinner) Hydrocodone-Acet 5/325mg Tab ([place] (06/27/25 16:15) Enoxaparin Sodium (Lovenox) (06/28/25 10:00) Condition: Fair (06/27/25 16:04) Acetaminophen Tablet (Tylenol Tablet) (06/27/25 16:15) Morphine Sulfate Injection (06/27/25 16:15) Admit (06/27/25 16:04) Nitroglycerin Sublingual (Ntrostat Subli (06/27/25 16:15) Morphine Sulfate Injection (06/27/25 16:15) Stat Ekg For Chest Pain (06/27/25 16:04) Notify Of Changes From Base (06/27/25 16:04) Senior Patient Account Representative For 24 Hours (06/27/25 16:04) Emergency Dysrhythmia Protocol (06/27/25 16:04) Rhythm Strips Once Every Shift (06/27/25 16:04) Oxygen By Nasal Cannula (06/27/25 16:04) Dicyclomine Capsule (Bentyl Capsule) (06/27/25 18:00) Haloperidol Tablet (Haldol Tablet) (06/27/25 22:00) (Nf) Benztropine Mesylate (06/27/25 22:00) (Nf) Divalproex Sodium (06/27/25 22:00) Albuterol Medneb (Ventolin Medneb) (06/27/25 18:00) Ipratropium Medneb (Atrovent Medneb) (06/27/25 18:00) Budesonide (Inhalation) (Pulmicort) (06/27/25 22:00) Doxycycline Tablet (Vibramycin Tablet) (06/27/25 22:00) *Consult (06/27/25 16:08) Vital Signs Date Time Temp Pulse Resp B/P (MAP) Pulse Ox O2 Delivery O2 Flow Rate FiO2 06/27/25 14:10 18 98 Nasal Cannula* 2 28 06/27/25 13:33 20 95 Nasal Cannula* 3 32 06/27/25 13:30 98.2 96 16 116/82 (93) 95 98.2 06/27/25 13:08 94 06/27/25 13:06 98.2 96 16 116/83 95 98.2 Laboratory Tests Test 06/27/25 14:06 White Blood Count 13.8 10^3/uL (4.4-10.8) #H Medications Medications Dose Ordered Sig/Elaine Route Start Time Stop Time Status Last Admin Dose Admin Albuterol 20 mg ONCE ONCE HHN 06/27/25 13:15 06/27/25 13:16 DC 06/27/25 14:10 20 MG Ipratropium [place] 1 mg ONCE ONCE HHN 06/27/25 13:15 06/27/25 13:16 DC 06/27/25 14:10 1 MG Assessment/Plan Assessment/Plan COPD Exacerbation with Acute and Chronic Respiratory Failure Assessment: Patient presents with worsening shortness of breath for one week and productive cough with green mucus. She has a history of multiple admissions for COPD exacerbations and is normally on 3 liters of oxygen at home. Given her symptoms and history, this presentation is consistent with an acute exacerbation of COPD complicated by acute on chronic respiratory failure. Plan: - Admit to hospital for further evaluation and management - Initiate Med neb treatments - Consult pulmonary service - Smoking cessation advised Schizophrenia Assessment: Patient has a known history of schizophrenia. Current mental status and specific symptoms not detailed in the transcript. Plan: - Continue Haldol 3 mg BID - Continue benztropine 1 mg BID - Continue valproex 500 mg BID smoker - advised to stop Plan discussed with: Patient My Orders Orders - RHYS GAMBINO Procedure Category Date Status Time Allergies AMINATA 06/27/25 In Process 16:04 Code Status CODE 06/27/25 Transmitted 16:04 2 Gm Sodium Diet DIET 06/27/25 Transmitted Dinner Hydrocodone-Acet PHA 06/27/25 Logged 5/325mg Tab ([place] 16:15 Enoxaparin Sodium PHA 06/28/25 Logged (Lovenox) 10:00 Condition: Fair AMINATA 06/27/25 In Process 16:04 Acetaminophen Tablet PHA 06/27/25 Logged (Tylenol Tablet) 16:15 Morphine Sulfate PHA 06/27/25 Logged Injection 16:15 Admit ADMIT 06/27/25 Transmitted 16:04 Nitroglycerin PHA 06/27/25 Logged Sublingual (Ntrostat 16:15 Morphine Sulfate PHA 06/27/25 Logged Injection 16:15 Stat Ekg For Chest [facility] 06/27/25 In Process Pain 16:04 Notify Of Changes [facility] 06/27/25 In Process From Base 16:04 Senior Patient Account Representative For [facility] 06/27/25 In Process 24 Hours 16:04 Emergency Dysrhythmia [facility] 06/27/25 In Process Protocol 16:04 Rhythm Strips Once [facility] 06/27/25 In Process Every Shift 16:04 Oxygen By Nasal RT 06/27/25 Transmitted Cannula 16:04 Dicyclomine Capsule PHA 06/27/25 Logged (Bentyl Capsule) 18:00 Haloperidol Tablet PHA 06/27/25 Logged (Haldol Tablet) 22:00 (Nf) Benztropine PHA 06/27/25 Logged Mesylate 22:00 (Nf) Divalproex Sodium PHA 06/27/25 Logged 22:00 Albuterol Medneb PHA 06/27/25 Logged (Ventolin Medneb) 18:00 Ipratropium Medneb PHA 06/27/25 Logged (Atrovent Medneb) 18:00 Budesonide PHA 06/27/25 Logged (Inhalation) 22:00 Doxycycline Tablet PHA 06/27/25 Logged (Vibramycin Tablet) 22:00 *Consult CONS 06/27/25 Transmitted 16:08 Date of Service: Jun 27, 2025 Billing Provider: JAYY MOTA MD Common Visit Codes: [id number] INP/OBS CARE (MOD) 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
[2025-06-27] MEDS ORDERED: ACETAMINOPHEN 325 MG TAB PO PRN (16:15)
[2025-06-27] MEDS ORDERED: MORPHINE SULFATE INJ 2 MG/ml SYRG IV PRN ×2 (16:15)
[2025-06-27] MEDS ORDERED: HYDROcodone-ACET 5/325MG TAB PO PRN (16:15)
[2025-06-27] MEDS ORDERED: NITROGLYCERIN 0.4 MG SL TAB SL PRN (16:15)
[2025-06-27] MEDS: DICYCLOMINE HCL 10 MG CAP PO SCH (18:00)
[2025-06-27] MEDS: IPRATROPIUM BROM 0.5 MG/2.5ML INH SOL NEB SCH (18:54)
[2025-06-27] MEDS: ALBUTEROL SULF 2.5 MG/0.5ML(0.5%) NEB SOLN NEB SCH (18:54)
--- NOTE | 2025-06-27 19:56 | ECG ---
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
[2025-06-27] MEDS: BUDESONIDE (INHALATION) 0.5 MG/2 ML NEB NEB SCH (23:13)
[2025-06-28] VITALS (12 sets, daily range): BP systolic 107; BP diastolic 72; PULSE 75–91; RESP 16–20; TEMP 97.5–97.9; O2SAT 92–100
[2025-06-28] MEDS: methylPREDNISolone SOD SUCC 40 MG/ML VL IV SCH (00:39)
[2025-06-28] MEDS: HALOPERIDOL 5 MG TAB PO SCH (00:41)
[2025-06-28] MEDS: DOXYCYCLINE 100 MG TAB/CAP PO SCH (00:41)
[2025-06-28] MEDS: BENZTROPINE MESY 0.5 MG TAB PO SCH (00:41)
[2025-06-28] MEDS: ENOXAPARIN SOD 40 MG/0.4 ML SYRINGE SC SCH (10:00)
--- NOTE | 2025-06-28 13:07 | DVHPN2 ---
Progress Note - Dictate Date Seen: Jun 28, 2025 Medical Necessity Reason Pt with a Central, PICC or Fol: No vital signs Vital Sign Date Time Temp Pulse Resp B/P (MAP) Pulse Ox O2 Delivery O2 Flow Rate FiO2 06/28/25 10:47 78 16 97 06/28/25 10:41 Nasal Cannula* 2 28 06/28/25 00:32 97.9 112/77 (89) 97.9 medications Current Medications Medications Dose Ordered Sig/Elaine Route Start Time Stop Time Status Last Admin Dose Admin Acetaminophen/ Hydrocodone Bitart 1 tab Q4HP PRN PO 06/27/25 16:15 Enoxaparin Sodium 40 mg DAILY SC 06/28/25 10:00 Acetaminophen 650 mg Q6HP PRN PO 06/27/25 16:15 Morphine Sulfate 2 mg Q4HPRN PRN IV 06/27/25 16:15 Nitroglycerin 0.4 mg Q5MINP PRN SL 06/27/25 16:15 Morphine Sulfate 2 mg Q30M PRN IV 06/27/25 16:15 Dicyclomine HCl 10 mg Q6HPRN PO 06/27/25 18:00 Haloperidol 3 mg BID PO 06/27/25 22:00 06/28/25 00:41 3 MG Benztropine Mesylate 1 mg BID PO 06/27/25 22:00 06/28/25 12:26 1 MG Divalproex Sodium 500 mg BID PO 06/27/25 22:00 06/28/25 12:26 500 MG Albuterol 2.5 mg Q4HWA NEB 06/27/25 18:00 06/28/25 10:41 2.5 MG Ipratropium [place] 0.5 mg Q4HWA NEB 06/27/25 18:00 06/28/25 10:41 0.5 MG Budesonide 0.25 mg BID NEB 06/27/25 22:00 06/28/25 07:08 0.25 MG Doxycycline Monohydrate 100 mg Q12HR PO 06/27/25 22:00 Methylprednisolone Sodium Succinate 40 mg Q8HR IV 06/27/25 22:00 objective General Appearance: alert, no distress HEENT: EOMI, PERRLA, normal external inspect of ears, no icterus, no nasal drainage Neck: no carotid bruit, no jugular venous distention (JVD), no lymphadenopathy Chest: normal thorax Respiratory: clear to auscultation, normal air movement Cardiovascular: regular rate and rhythm, no diastolic murmur, no jugular venous distention (JVD), no rub, no systolic murmur Abdominal: soft, no hepatomegaly, no mass, no splenomegaly, no tenderness Genitourinary: grossly normal external Musculoskeletal: no joint tenderness, no swelling Extremities: normal pulses, no calf tenderness, no clubbing, no cyanosis, no edema Skin: no bruising, no jaundice, no rash Neurological: alert, No focal deficit laboratory and microbiology Laboratory Tests 06/27/25 14:06 Test 06/27/25 14:06 Range/Units Serum Glucose 95 74-106 mg/dL Problem List COPD Exacerbation with Acute and Chronic Respiratory Failure Plan: - Admit to hospital for further evaluation and management - Initiate Med neb treatments - Consult pulmonary service - Smoking cessation advised Schizophrenia Assessment: Patient has a known history of schizophrenia. Current mental status and specific symptoms not detailed in the transcript. Plan: - Continue Haldol 3 mg BID - Continue benztropine 1 mg BID - Continue valproex 500 mg BID smoker - advised to stop Assessment/Plan Subjective: Patient is awake and alert. Objective: Patient is admitted for COPD exacerbation. She has been started on antibiotics and has been more compliant with her care today. She remains short of breath and continues to cough. Plan: Start cough syrup every 4 hours as needed. Continue breathing treatments, IV antibiotics, and oral steroids. Plan discussed with: Patient, Other JOYA PLATT NP Jun 28, 2025 13:07
--- NOTE | 2025-06-28 14:04 | DVHINCON2 ---
Date of service: Jun 27, [address] Stokes Reason for Consultation COPD management History of Present Illness History Source: Patient Exam Limitations: No limitations HPI Patient is a 55-year old lady with a history of COPD and smoker who presented with shortness of breath, cough and mucus production. Was seen in the emergency room where she was admitted for symptoms consistent with acute exacerbation of COPD and pulmonology was consulted to assist in management. Home Meds Active Scripts Dicyclomine Hcl (BENTYL CAPSULE) 10 Mg Cp, 1 CAP PO Q6HPRN, #20 CAP 0 Refills Prov:MAMI ESTRADA PAC 06/24/25 Albuterol Sulfate (Albuterol Sulfate Hfa) 108 Mcg/Act Aer, 108 MCG IN Q4HPRN PRN for 30 Days, #1 AER prn shortness of breath Prov:GIULIAJOYA Wang [employer] 06/22/25 Loperamide Hcl (Imodium) 2 Mg Cp, 2 MG PO Q6HPRN PRN for 30 Days, #10 CAP Prov:GIULIAJOYA Wang [employer] 06/22/25 Tiotropium [place] Monohydrate (Spiriva Respimat) 2.5 Mcg/Act Spr, 2.5 MCG IN DAILY for 30 Days, #10 SPRAY 3 Refills 2 puffs daily Prov:JOYA PLATT Kathleen [employer] 06/22/25 Doxycycline (Monohydrate) (Doxycycline) 100 Mg Cap, 100 MG PO BID for 7 Days, #14 CAP Prov:JOYA PLATT EZ 06/22/25 Methylprednisolone (Medrol Dosepak) 4 Mg Shyam, 4 MG PO UD, #21 TAB UAD Prov:SAMUELREIDJOYA Kathleen HUI 06/22/25 Divalproex Sodium (Divalproex Sodium) 500 Mg Tab, 500 MG PO BID for 30 Days, #60 MG Prov:SAMUELREIDJOYA Kathleen [employer] 05/19/25 Haloperidol (Haldol) 5 Mg Tb, 3 MG PO BID for 30 Days, #60 MG Prov:SAMUELREIDJOYA Kathleen HUI 05/19/25 Benztropine Mesylate (Benztropine Mesylate) 1 Mg Tab, 1 MG PO BID for 30 Days, #60 MG Prov:GIULIAJOYAASHLEY Wang NP 05/19/25 Trazodone Hcl (Trazodone Hcl) 50 Mg Tab, 75 MG PO HS for 30 Days, #45 MG Prov:JOYA PLATT [employer] 05/19/25 Albuterol Sulfate (Albuterol Sulfate Hfa) 108 Mcg/Act Aer, 108 MCG IN Q4HP PRN for 30 Days, #1 AER 2 puffs inhalation Prov:JOYA PLATT [employer] 05/13/25 Reported Medications Albuterol Sulfate (Albuterol Sulfate (5 mg/ml) 0.5%) 1 Neb Neb, 1 NEB IN, INH 10/19/24 Past Medical History Cardiac: No pertinent Hx Pulmonary: COPD Central Nervous System: No pertinent Hx GI: No pertinent Hx Hemotology/Oncology: No pertinent Hx Hepatobiliary: No pertinent Hx Psychiatric: No pertinent Hx Musculoskeletal: No pertinent Hx Rheumotologic: No pertinent Hx Infectious Disease: No peritnent Hx ENT: No pertinent Hx Renal/: No pertinent Hx Endocrine: No pertinent Hx Dermatology: No pertinent Hx Family History: No pertinent Hx Patient Family History: Anxiety disorder FH: COPD (chronic obstructive pulmonary disease) FH: schizophrenia Smoker: Positive Alocohol: None Drugs: None Lives with: With family Domestic Violence: Neg Review of Systems Constitutional: No symptom reported Ears, Nose, & Throat: No symptom reported Eyes: No symptom reported Pulmonary/Respiratory: Dyspnea, Cough Cardiovascular: No symptom reported Gastrointestinal: No symptom reported Genitourinary: No symptom reported Musculoskeletal: No symptom reported Skin: No symptom reported Psychiatric: No symptom reported Endocrine: No symptom reported Hemotologic/Lymphatic: No symptom reported H&P Exam Vital Signs Vital Signs Date Time Temp Pulse Resp B/P (MAP) Pulse Ox O2 Delivery O2 Flow Rate FiO2 06/28/25 13:07 97 18 87 06/28/25 10:41 Nasal Cannula* 2 28 06/28/25 00:32 97.9 112/77 (89) 97.9 General Appeara: Well developed, Well nourished, Normal Appearance Head Exam: Normal inspection Neck Exam: Normal inspection, Non-tender, Normal alignment Eye Exam: bilateral eye Normal inspection, bilateral eye PERRL, bilateral eye EOMI Ear Exam: bilateral ear Auricle normal, bilateral ear Canal normal, bilateral ear TM normal Nasal Exam: Normal inspection Mouth: Normal Inspection Pulmonary/Respiratory: Decreased breath sounds Peripheral Pulses: 4+ Radial (R), 4+ Radial (L), 4+ Brachial (R), 4+ Brachial (L) Abdominal Exam: Normal bowel sounds Labs/Xrays Labs Test 06/27/25 17:42 06/27/25 14:06 Range/Units Troponin I High Sensitivity 3 L </=34 ng/L White Blood Count 13.8 #H 4.4-10.8 10^3/uL Red Blood Count 4.68 4.0-5.20 10^6/uL Hemoglobin 14.6 12.2-16.2 g/dL Hematocrit 45.1 36.0-46.0 % Mean Corpuscular Volume 96.4 80.0-100.0 fL Mean Corpuscular Hemoglobin 31.2 28.0-32.0 pg Mean Corpuscular Hemoglobin Concent 32.4 32.0-36.0 g/dL Red Cell Distribution Width 15.5 H 11.8-14.3 % Platelet Count 272 140-450 10^3/uL Mean Platelet Volume 8.4 6.9-10.8 fL Neutrophils (%) (Auto) 90.2 H 37.0-80.0 % Lymphocytes (%) (Auto) 7.1 L 10.0-50.0 % Monocytes (%) (Auto) 2.2 0.0-12.0 % Eosinophils (%) (Auto) 0.4 0.0-7.0 % Basophils (%) (Auto) 0.1 0.0-2.0 % Neutrophils # (Auto) 12.4 H 1.6-8.6 10 ^3/uL Lymphocytes # (Auto) 1.0 0.4-5.4 10 ^3/uL Monocytes # (Auto) 0.3 0-1.3 10 ^3/uL Eosinophils # (Auto) 0 0-0.8 10 ^3/uL Basophils # (Auto) 0 0-0.2 10 ^3/uL Nucleated Red Blood Cells 0.0 % Sodium Level 140 136-145 mmol/L Potassium Level 4.3 3.5-5.1 mmol/L Chloride Level 96 L 98-107 mmol/L Carbon Dioxide Level 36 H 20-31 mmol/L Anion Gap 8 5-15 Blood Urea Nitrogen 6 L 9-23 mg/dL Creatinine 0.50 L 0.550-1.02 mg/dL Glomerular Filtration Rate Calc 110 >90 mL/min BUN/Creatinine Ratio 12.0 10.0-20.0 Serum Glucose 95 74-106 mg/dL Calcium Level 9.2 8.7-10.4 mg/dL B-Type Natriuretic Peptide 38.25 0-100 pg/mL Assessment/Plan Plan Impression Chronic hypoxemic respiratory failure Acute COPD exacerbation Emphysema Smoker Patient seen and examined Events Low oxygen requirements On 2 liters nasal cannula Vital signs stable Labs and imaging reviewed Chest x-ray shows hyperinflated lungs and emphysema Management Supplemental oxygen Titrate to maintain sats 90% or above Incentive spirometry Antibiotics Bronchodilators Steroids for COPD management Monitor renal function Monitor electrolytes Supplement as needed DVT prophylaxis Plan discussed with: Patient MARGUERITE MCCORMICK MD Jun 28, 2025 14:04
--- NOTE | 2025-06-28 14:05 | DVHPN2 ---
Progress Note - Dictate Date Seen: Jun 28, 2025 Medical Necessity Reason Pt with a Central, PICC or Fol: No vital signs Vital Sign Date Time Temp Pulse Resp B/P (MAP) Pulse Ox O2 Delivery O2 Flow Rate FiO2 06/28/25 13:07 97 18 87 06/28/25 10:41 Nasal Cannula* 2 28 06/28/25 00:32 97.9 112/77 (89) 97.9 medications Current Medications Medications Dose Ordered Sig/Elaine Route Start Time Stop Time Status Last Admin Dose Admin Acetaminophen/ Hydrocodone Bitart 1 tab Q4HP PRN PO 06/27/25 16:15 Acetaminophen 650 mg Q6HP PRN PO 06/27/25 16:15 Morphine Sulfate 2 mg Q4HPRN PRN IV 06/27/25 16:15 Nitroglycerin 0.4 mg Q5MINP PRN SL 06/27/25 16:15 Dicyclomine HCl 10 mg Q6HPRN PO 06/27/25 18:00 Haloperidol 3 mg BID PO 06/27/25 22:00 06/28/25 00:41 3 MG Benztropine Mesylate 1 mg BID PO 06/27/25 22:00 06/28/25 12:26 1 MG Divalproex Sodium 500 mg BID PO 06/27/25 22:00 06/28/25 12:26 500 MG Albuterol 2.5 mg Q4HWA NEB 06/27/25 18:00 06/28/25 10:41 2.5 MG Ipratropium [place] 0.5 mg Q4HWA NEB 06/27/25 18:00 06/28/25 10:41 0.5 MG Budesonide 0.25 mg BID NEB 06/27/25 22:00 06/28/25 07:08 0.25 MG Doxycycline Monohydrate 100 mg Q12HR PO 06/27/25 22:00 Prednisone 40 mg DAILY PO 06/28/25 13:15 UNV laboratory and microbiology Laboratory Tests 06/27/25 14:06 Test 06/27/25 14:06 Range/Units Serum Glucose 95 74-106 mg/dL Assessment/Plan Impression Chronic hypoxemic respiratory failure Acute COPD exacerbation Emphysema Smoker Patient seen and examined Events Low oxygen requirements On 2 liters nasal cannula No acute events Labs and imaging reviewed Chest x-ray shows hyperinflated lungs and emphysema Management Supplemental oxygen Titrate to maintain sats 90% or above Incentive spirometry Continue antibiotics F/u cultures Bronchodilators Steroids for COPD management Monitor renal function Monitor electrolytes Supplement as needed DVT prophylaxis Plan discussed with: Patient MARGUERITE MCCORMICK MD Jun 28, 2025 14:05
[2025-06-28] MEDS: predniSONE 20 MG TAB PO SCH (15:53)
[2025-06-29] VITALS (11 sets, daily range): BP systolic 103–114; BP diastolic 52–72; PULSE 75–95; RESP 18–22; TEMP 97.9–98.7; O2SAT 3–100
[2025-06-29] MEDS ORDERED: LEVO500T91 PO (11:14)
[2025-06-29] MEDS ORDERED: PRED20TA2 PO (11:14)
[2025-06-29] MEDS ORDERED: HALOPERIDOL 1 MG TAB PO PRN (11:15)
--- NOTE | 2025-06-29 11:15 | DVHDS2 ---
Discharge Summary Date of Admission Jun 27, 2025 at 16:04 Date of Discharge: Jun 29, 2025 Labs/Diagnostic Data: Laboratory Results Test 06/27/25 17:42 06/27/25 14:06 Troponin I High Sensitivity 3 ng/L (</=34) White Blood Count 13.8 10^3/uL (4.4-10.8) Red Blood Count 4.68 10^6/uL (4.0-5.20) Hemoglobin 14.6 g/dL (12.2-16.2) Hematocrit 45.1 % (36.0-46.0) Mean Corpuscular Volume 96.4 fL (80.0-100.0) Mean Corpuscular Hemoglobin 31.2 pg (28.0-32.0) Mean Corpuscular Hemoglobin Concent 32.4 g/dL (32.0-36.0) Red Cell Distribution Width 15.5 % (11.8-14.3) Platelet Count 272 10^3/uL (140-450) Mean Platelet Volume 8.4 fL (6.9-10.8) Neutrophils (%) (Auto) 90.2 % (37.0-80.0) Lymphocytes (%) (Auto) 7.1 % (10.0-50.0) Monocytes (%) (Auto) 2.2 % (0.0-12.0) Eosinophils (%) (Auto) 0.4 % (0.0-7.0) Basophils (%) (Auto) 0.1 % (0.0-2.0) Neutrophils # (Auto) 12.4 10 ^3/uL (1.6-8.6) Lymphocytes # (Auto) 1.0 10 ^3/uL (0.4-5.4) Monocytes # (Auto) 0.3 10 ^3/uL (0-1.3) Eosinophils # (Auto) 0 10 ^3/uL (0-0.8) Basophils # (Auto) 0 10 ^3/uL (0-0.2) Nucleated Red Blood Cells 0.0 % Sodium Level 140 mmol/L (136-145) Potassium Level 4.3 mmol/L (3.5-5.1) Chloride Level 96 mmol/L (98-107) Carbon Dioxide Level 36 mmol/L (20-31) Anion Gap 8 (5-15) Blood Urea Nitrogen 6 mg/dL (9-23) Creatinine 0.50 mg/dL (0.550-1.02) Glomerular Filtration Rate Calc 110 mL/min (>90) BUN/Creatinine Ratio 12.0 (10.0-20.0) Serum Glucose 95 mg/dL (74-106) Calcium Level 9.2 mg/dL (8.7-10.4) B-Type Natriuretic Peptide 38.25 pg/mL (0-100) Other Laboratory Tests 06/27/25 14:06 Brief Hx & Hospital Course: Silvia White is a 55-year-old female with a history of chronic obstructive pulmonary disease, hypertension, schizophrenia, and chronic respiratory failure presenting to the ER with complaints of shortness of breath and productive cough with green mucus for the past week. The patient reports shortness of breath lasting one week. She describes a productive cough with green mucus. The patient normally requires 3 liters of oxygen at home and has had multiple previous hospital admissions for COPD exacerbations. Patient was admitted on 06/27/2025 for acute on chronic hypoxic respiratory failure and COPD exacerbation. Patient was placed on IV Solumedrol and breathing treatments and IV antibiotics. Patient's condition improved to her baseline. Patient also has a history of bipolar and schizophrenia. She was restarted on her home psychiatric medications. Patient was cleared for discharge. She was given oral antibiotics to continue and complete, as well as 5 more days of oral Prednisone. She was instructed to follow up with her PCP in 1 week. The patient received proper medical treatment and medications. Vital signs, Imaging and Laboratory Work was monitored. All consults recommendations were followed as provided. There were no complaints or new complaints upon discharge, all questions and concerns were answered. Patient was advised to return to the ER or call 911 if any headaches, dizziness, shortness of breath, chest pain, bleeding, fevers, or worsening of medical condition. Patient/Family was counseled about treatment plan, medications, possible side effects, patientverbalized understanding. All questions were answered to the best of my ability. The patient symptoms improved and they are okay to be DC. Condition at Discharge: Stable Final Diagnosis/Problems List COPD exacerbation acute and chronic respiratory failure Discharge Disposition: Home Discharge Instruct/Medications Diet: Cardiac 2g Na,low cholest Activity: No Restrictions, As Tolerated Follow Up/Referral: pcp 1 week Medications: As prescribed Scheduled Benztropine Mesylate (Benztropine Mesylate), 1 MG PO BID Dicyclomine Hcl (Bentyl Capsule), 1 CAP PO Q6HPRN Divalproex Sodium (Divalproex Sodium), 500 MG PO BID Haloperidol (Haldol), 3 MG PO BID Levofloxacin Hemihydrate (Levaquin 500 Mg), 1 TAB PO DAILY Prednisone (Prednisone), 20 MG PO DAILY Tiotropium [place] Monohydrate (Spiriva Respimat), 2.5 MCG IN DAILY Trazodone Hcl (Trazodone Hcl), 75 MG PO HS Scheduled PRN Albuterol Sulfate (Albuterol Sulfate Hfa), 108 MCG IN Q4HP PRN Loperamide Hcl (Imodium), 2 MG PO Q6HPRN PRN Miscellaneous Medications Albuterol Sulfate (Albuterol Sulfate (5 mg/ml) 0.5%), 1 NEB IN, (Reported) Discontinued Medications Albuterol Sulfate (Albuterol Sulfate Hfa), 108 MCG IN Q4HPRN PRN Doxycycline (Monohydrate) (Doxycycline), 100 MG PO BID Methylprednisolone (Medrol Dosepak), 4 MG PO UD Discharge Statement: "Patient was advised to return to the ER or call 911 if any headaches, dizziness, shortness of breath, chest pain, abdominal pain, bleeding, fevers, or worsening of medical condition. Patient was counseled about treatment plan, medications, possible side effects, patientverbalized understanding. All questions were answered to the best of my ability. This discharge took greater then 30 minutes in planning, reviewing documentation, counseling the patient, and discussing with other team members." ASSESSMENT ASSESSMENT Assessment copd exacerbation JOYA PLATT NP Jun 29, 2025 11:15
[2025-06-29] MEDS: guaiFENesin-DM 100/10mg/5ml SYR PO PRN (11:18)
--- NOTE | 2025-06-29 13:41 | DVHPN2 ---
Progress Note - Dictate Date Seen: Jun 29, 2025 Medical Necessity Reason Pt with a Central, PICC or Fol: No vital signs Vital Sign Date Time Temp Pulse Resp B/P (MAP) Pulse Ox O2 Delivery O2 Flow Rate FiO2 06/29/25 13:36 84 18 98 06/29/25 09:00 97.9 103/65 (78) 97.9 06/29/25 08:00 Nasal Cannula* 3 32 Total Intake and Output 06/28/25 06/28/25 06/29/25 15:00 23:00 07:00 Intake Total 300 ml Balance 300 ml medications Current Medications Medications Dose Ordered Sig/Elaine Route Start Time Stop Time Status Last Admin Dose Admin Acetaminophen/ Hydrocodone Bitart 1 tab Q4HP PRN PO 06/27/25 16:15 Acetaminophen 650 mg Q6HP PRN PO 06/27/25 16:15 Morphine Sulfate 2 mg Q4HPRN PRN IV 06/27/25 16:15 Nitroglycerin 0.4 mg Q5MINP PRN SL 06/27/25 16:15 Dicyclomine HCl 10 mg Q6HPRN PO 06/27/25 18:00 06/29/25 00:28 10 MG Benztropine Mesylate 1 mg BID PO 06/27/25 22:00 06/29/25 09:47 1 MG Divalproex Sodium 500 mg BID PO 06/27/25 22:00 06/29/25 09:47 500 MG Albuterol 2.5 mg Q4HWA NEB 06/27/25 18:00 06/29/25 13:36 2.5 MG Ipratropium [place] 0.5 mg Q4HWA NEB 06/27/25 18:00 06/29/25 13:36 0.5 MG Budesonide 0.25 mg BID NEB 06/27/25 22:00 06/29/25 06:48 0.25 MG Doxycycline Monohydrate 100 mg Q12HR PO 06/27/25 22:00 06/29/25 09:47 100 MG Prednisone 40 mg DAILY PO 06/28/25 13:15 06/29/25 09:47 40 MG Guaifenesin/ Dextromethorphan 10 ml Q4HP PRN PO 06/28/25 18:30 06/29/25 11:18 10 ML Haloperidol 3 mg [id number] PRN PO 06/29/25 11:15 laboratory and microbiology Laboratory Tests 06/27/25 14:06 Test 06/27/25 14:06 Range/Units Serum Glucose 95 74-106 mg/dL Assessment/Plan Impression Chronic hypoxemic respiratory failure Acute COPD exacerbation Emphysema Smoker Patient seen and examined Events Low oxygen requirements On 2 liters nasal cannula No distress Labs and imaging reviewed Chest x-ray shows hyperinflated lungs and emphysema Management Supplemental oxygen Titrate to maintain sats 90% or above Incentive spirometry Continue antibiotics F/u cultures Bronchodilators Steroids for COPD management Monitor renal function Monitor electrolytes Supplement as needed DVT prophylaxis Plan discussed with: Patient MARGUERITE MCCORMICK MD Jun 29, 2025 13:41
== END 2025-06-29 18:10 | disposition home or self-care (01) | DRG 140 ==
LOC: ER 12:53 → EDBD 12:53 → OVERFLOW 16:04 → TELE-EAST 06-28 23:13
PROVIDERS: ADMIT Nurse Practitioner Family; ATTEND Nurse Practitioner Family
DX: J44.1 Chronic obstructive pulmonary disease with (acute) exacerbation (principal); J96.21 Acute and chronic respiratory failure with hypoxia; F20.9 Schizophrenia, unspecified; I10 Essential (primary) hypertension; J43.9 Emphysema, unspecified; K21.9 Gastro-esophageal reflux disease without esophagitis; F31.9 Bipolar disorder, unspecified; Z87.891 Personal history of nicotine dependence; Z88.1 Allergy status to other antibiotic agents; Z71.6 Tobacco abuse counseling; Z79.899 Other long term (current) drug therapy; Z81.8 Family history of other mental and behavioral disorders; Z82.5 Family history of asthma and other chronic lower respiratory diseases
CPT/HCPCS: 36415; 71045; 80048; 83880; 84484; 85025; 93005; 94640; 94644; 99291; G0378

== ENCOUNTER 2025-06-30 20:06 | Inpatient (IN) | payer OTHER ==
[~2025-06-30] VITALS: Ht 165.1 cm; Wt 40.3 kg
[~2025-06-30 20:06] MED LIST changes: -DOXY100C79 PO; +LEVO500T91 PO; -METH4PAK PO; +PRED20TA2 PO
[2025-06-30 20:57] LABS: Hematocrit 47.4 % (36.0-46.0); Hemoglobin 15.3 g/dL (12.2-16.2); Mean Corpuscular Hemoglobin 31.9 pg (28.0-32.0); Mean Corpuscular Volume 98.8 fL (80.0-100.0); Nucleated Red Blood Cells % 0.0 %
--- NOTE | 2025-06-30 21:20 | ED.PDOC ---
Psychiatric HPI Comments 55 year old female with PMHx COPD, GERD, HTN, Schizophrenia presents to the ED with a chief compliant of hallucinations onset 06/30/15. Per EMS, patient is from [facility], patient called 911 stating "they are trying to kill me." Patient states people at the facility are trying to hurt her, she had to leave. Patient is a poor historian. No other symptoms or modifying factors present at this time. Chief Complaint: Mental Health Time Seen by MD: 20:15 Primary Care Provider: UNKNOWN Reviewed Notes: Medications, Allergies Information Source: Patient, Emergency Med Personnel Mode of Arrival: EMS Severity of Mental Status: Moderate Severity of Symptoms: Moderate Timing: Hours Duration: Since onset Prehospital treatment: None Presents with: Other Ingestion: None Circumstance: None Current substance abuse: None History of: Schizophrenia Quality: Hallucinations Associated signs and symptoms: Hallucinations Past Medical History PAST MEDICAL HISTORY: COPD, Gallstones, GERD, HTN, Schizophrenia, UTI'S Surgical History: Denies all surgeries [employer] History: Denies all [employer] Hx Family History Family History: Reviewed,noncontributory to illness Social History Smoker: Quit Less Than 1 Year, Cigarettes Alcohol: Denies ETOH Use Drugs: Denies Drug Use Lives In: Assisted Care Constitutional: denies: chills, diaphoresis, fatigue, fever, malaise, sweats, weakness, others EENTM: denies: blurred vision, double vision, ear bleeding, ear discharge, ear drainage, ear pain, ear ringing, eye pain, eye redness, hearing loss, mouth pain, mouth swelling, nasal discharge, nose bleeding, nose congestion, nose pain, photophobia, tearing, throat pain, throat swelling, voice changes, others Respiratory: denies: cough, hemoptysis, orthopnea, SOB at rest, shortness of breath, SOB with excertion, stridor, wheezing, others Cardiovascular: denies: chest pain, dizzy spells, diaphoresis, Dyspnea on exertion, edema, irregular heart beat, left arm pain, lightheadedness, palpitations, PND, syncope, others Gastrointestinal: denies: abdomen distended, abdominal pain, blood streaked bowels, constipated, diarrhea, dysphagia, difficulty swallowing, hematemesis, melena, nausea, poor appetite, poor fluid intake, rectal bleeding, rectal pain, vomiting, others Genitourinary: denies: abnormal vagina bleeding, burning, dyspareunia, dysuria, flank pain, frequency, hematuria, incontinence, pain, , vagina discharge, urgency, others Neurological: denies: dizziness, fainting, headache, left sided numbness, left sided weakness, numbness, paresthesia, pre-existing deficit, right sided numbness, right sided weakness, seizure, speech problems, tingling, tremors, weakness, others Musculoskeletal: denies: back pain, gout, joint pain, joint swelling, muscle pain, muscle stiffness, neck pain, others Integumetry: denies: bruises, change in color, change in hair/nails, dryness, laceration, lesions, lumps, rash, wounds, others Allergic/Immunocompromised: denies: Difficulty Healing, Frequent Infections, Hives, Itching, others Hematologic/Lymphatic: denies: anemia, blood clots, easy bleeding, easy bruising, swollen glands, others Endocrine: denies: excessive hunger, excessive sweating, excessive thirst, excessive urination, flushing, intolerance to cold, intolerance to heat, unexplained weight gain, unexplained weight loss, others Psychiatric: reports: others; denies: anxiety, bipolar disorder, depression, hopeless, panic disorder, schizophrenia, sleepless, suicidal All Other Systems: Reviewed and Negative Physical Exam General Appearance: Normal HEENT: Normal ENT Inspection, Pharynx Normal, TMs Normal Neck: Full Range of Motion, Non-Tender, Normal, Normal Inspection Respiratory: Chest Non-Tender, Lungs Clear, No Accessory Muscle Use, No Respiratory Distress, Normal Breath Sounds Cardiovascular: No Edema, No JVD, No Murmur, No Gallop, Normal Peripheral Pulses, Regular Rate/Rhythm Breast Exam: Deferred Gastrointestinal: No Organomegaly, Non Tender, No Pulsatile Mass, Normal Bowel Sounds, Soft Genitalia: Deferred Pelvic: Deferred Rectal: Deferred Extremities: No calf tenderness, Normal capillary refill, Normal inspection, Normal range of motion, Non-tender, No pedal edema Musculoskeletal : Apperance: Normal Neurologic: Alert, batch dumper II-XII 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 Was a procedure done?: No X-Ray, Labs, Meds, VS Vital Signs Date Time Temp Pulse Resp B/P (MAP) Pulse Ox O2 Delivery O2 Flow Rate FiO2 06/30/25 20:10 97.0 101 18 105/73 94 97.0 Lab Test 06/30/25 20:31 Range/Units White Blood Count 5.9 # 4.4-10.8 10^3/uL Red Blood Count 4.80 4.0-5.20 10^6/uL Hemoglobin 15.3 12.2-16.2 g/dL Hematocrit 47.4 H 36.0-46.0 % Mean Corpuscular Volume 98.8 80.0-100.0 fL Mean Corpuscular Hemoglobin 31.9 28.0-32.0 pg Mean Corpuscular Hemoglobin Concent 32.3 32.0-36.0 g/dL Red Cell Distribution Width 16.0 H 11.8-14.3 % Platelet Count 228 140-450 10^3/uL Mean Platelet Volume 8.2 6.9-10.8 fL Neutrophils (%) (Auto) 93.7 H 37.0-80.0 % Lymphocytes (%) (Auto) 4.6 L 10.0-50.0 % Monocytes (%) (Auto) 1.5 0.0-12.0 % Eosinophils (%) (Auto) 0.1 0.0-7.0 % Basophils (%) (Auto) 0.1 0.0-2.0 % Neutrophils # (Auto) 5.5 1.6-8.6 10 ^3/uL Lymphocytes # (Auto) 0.3 L 0.4-5.4 10 ^3/uL Monocytes # (Auto) 0.1 0-1.3 10 ^3/uL Eosinophils # (Auto) 0 0-0.8 10 ^3/uL Basophils # (Auto) 0 0-0.2 10 ^3/uL Nucleated Red Blood Cells 0.0 % Sodium Level 135 #L 136-145 mmol/L Potassium Level 4.5 3.5-5.1 mmol/L Chloride Level 94 L 98-107 mmol/L Carbon Dioxide Level 33 H 20-31 mmol/L Anion Gap 8 5-15 Blood Urea Nitrogen 6 L 9-23 mg/dL Creatinine 0.56 0.550-1.02 mg/dL Glomerular Filtration Rate Calc 107 >90 mL/min BUN/Creatinine Ratio 10.7 10.0-20.0 Serum Glucose 130 H 74-106 mg/dL Calcium Level 9.3 8.7-10.4 mg/dL Magnesium Level 2.2 1.6-2.6 mg/dL Total Bilirubin 0.3 0.2-1.0 mg/dL Aspartate Amino Transferase (AST) 15 13-40 U/L Alanine Aminotransferase (ALT) 19 7-40 U/L Alkaline Phosphatase 66 46-116 U/L Troponin I High Sensitivity < 3 L </=34 ng/L B-Type Natriuretic Peptide Pending Total Protein 6.1 5.7-8.2 g/dL Albumin 4.1 3.2-4.8 g/dL Current Medications Medications (Trade) Dose Ordered Sig/Elaine Route Start Time Stop Time Status Last Admin Albuterol (Ventolin Medneb) 5 mg ONCE ONCE [facility] 06/30/25 21:30 06/30/25 21:31 DC 06/30/25 21:42 Ipratropium [place] (Atrovent Medneb) 0.5 mg ONCE ONCE [facility] 06/30/25 21:30 06/30/25 21:31 DC 06/30/25 21:42 Time of 1ST Reevaluation: 20:45 Reevaluation 1ST: Unchanged Patient Education/Counseling: Diagnosis, Treatment, Prognosis Family Education/Counseling: No Family Present Departure 1 Departure Time of Disposition: 21:47 Impression: Primary Impression: COPD exacerbation Additional Impressions: Respiratory failure with hypoxia Schizophrenia Disposition: ADMITTED INPATIENT Admit to: Med Surg Condition: Guarded Comments 55-year-old female with a history of schizophrenia and COPD now with some shortness of breath. Her oxygen level was slightly low on room air. Patient was given a breathing treatment. I discussed the case with Dr. Fernandez and he plans to admit the patient for COPD exacerbation. on the lab review CO2 was elevated at 33 Critical Care Note Critical Care Time?: No Stability Stability form required: No Heart Score Heart Score: Heart Score Response (Comments) Value History N/A 0 EKG N/A 0 Age N/A 0 Risk Factors N/A 0 Troponin N/A 0 Total 0 I personally scribed for MANDY OJEDA MD ([email or web address]) on 06/30/25 at 21:20. Electronically submitted by Amber Qureshi ([email or web address]). MANDY OJEDA MD Jun 30, 2025 21:20
[2025-06-30 21:25] LABS: Alanine Aminotransferase 19 U/L (7-40); Albumin 4.1 g/dL (3.2-4.8); Alkaline Phosphatase 66 U/L (46-116); Anion Gap 8 (5-15); BUN/Creatinine Ratio 10.7 (10.0-20.0); Calcium 9.3 mg/dL (8.7-10.4); Magnesium 2.2 mg/dL (1.6-2.6); Potassium 4.5 mmol/L (3.5-5.1); Total Protein 6.1 g/dL (5.7-8.2)
[2025-06-30 21:29] LABS: Bilirubin, Total 0.3 mg/dL (0.2-1.0); Blood Urea Nitrogen 6 mg/dL (9-23); Carbon Dioxide 33 mmol/L (20-31); Chloride 94 mmol/L (98-107); Glucose 130 mg/dL (74-106); Sodium 135 mmol/L (136-145)
[2025-06-30] MEDS: IPRATROPIUM BROM 0.5 MG/2.5ML INH SOL NEB ONE (21:42)
[2025-06-30] MEDS: ALBUTEROL SULF 2.5 MG/0.5ML(0.5%) NEB SOLN NEB ONE (21:42)
--- NOTE | 2025-06-30 22:41 | DVH ---
CHEST RADIOGRAPH Indication: SOB Technique: Single frontal view of the chest was obtained Comparison: XY CHEST PORTABLE on DOS: 06/27/25, XY CHEST PORTABLE on DOS: 06/23/25, XY CHEST PORTABLE on DOS: 06/19/25, XY CHEST PORTABLE on DOS: 05/14/25, XY CHEST PORTABLE on DOS: 05/11/25, XY CHEST RODY BLE on DOS: 06/27/25 FINDINGS: Lines and tubes: None Cardiomediastinal silhouette: normal Pulmonary vasculature: normal Lung expansion: normal Lung airspace: Similar emphysematous changes of the lungs. Lung interstitium: normal Pleura: normal Pneumothorax: no Bones: Unremarkable Other: no IMPRESSION: No acute intrathoracic abnormality. Similar emphysematous changes of the lungs.
--- NOTE | 2025-06-30 23:52 | DVHHP2 ---
Admitting Diagnosis: copd exacerbation History of Present Illness HPI This is a 55 year old paranoid schizophrenic who presents today from her assisted living facility with complaints of shortness of breath and cough. Home Meds Active Scripts Prednisone (Prednisone) 20 Mg Tab, 20 MG PO DAILY for 5 Days, #5 MG Prov:JOYA PLATT THERAPEUTIC DIETITIAN 06/29/25 Levofloxacin Hemihydrate (LEVAQUIN 500 MG) 500 Mg Tab, 1 TAB PO DAILY, #7 TAB Prov:JOYA PLATT THERAPEUTIC DIETITIAN 06/29/25 Dicyclomine Hcl (BENTYL CAPSULE) 10 Mg Cp, 1 CAP PO Q6HPRN, #20 CAP 0 Refills Prov:MAMI ESTRADA PAC 06/24/25 Loperamide Hcl (Imodium) 2 Mg Cp, 2 MG PO Q6HPRN PRN for 30 Days, #10 CAP Prov:JOYA PLATT THERAPEUTIC DIETITIAN 06/22/25 Tiotropium [place] Monohydrate (Spiriva Respimat) 2.5 Mcg/Act Spr, 2.5 MCG IN DAILY for 30 Days, #10 SPRAY 3 Refills 2 puffs daily Prov:JOYA PLATT THERAPEUTIC DIETITIAN 06/22/25 Divalproex Sodium (Divalproex Sodium) 500 Mg Tab, 500 MG PO BID for 30 Days, #60 MG Prov:JOYA PLATT THERAPEUTIC DIETITIAN 05/19/25 Haloperidol (Haldol) 5 Mg Tb, 3 MG PO BID for 30 Days, #60 MG Prov:JOYA PLATT THERAPEUTIC DIETITIAN 05/19/25 Benztropine Mesylate (Benztropine Mesylate) 1 Mg Tab, 1 MG PO BID for 30 Days, #60 MG Prov:JOYA PLATT THERAPEUTIC DIETITIAN 05/19/25 Trazodone Hcl (Trazodone Hcl) 50 Mg Tab, 75 MG PO HS for 30 Days, #45 MG Prov:JOYA PLATT THERAPEUTIC DIETITIAN 05/19/25 Albuterol Sulfate (Albuterol Sulfate Hfa) 108 Mcg/Act Aer, 108 MCG IN Q4HP PRN for 30 Days, #1 AER 2 puffs inhalation Prov:JOYA PLATT THERAPEUTIC DIETITIAN 05/13/25 Reported Medications Albuterol Sulfate (Albuterol Sulfate (5 mg/ml) 0.5%) 1 Neb Neb, 1 NEB IN, INH 10/19/24 Discontinued Scripts Albuterol Sulfate (Albuterol Sulfate Hfa) 108 Mcg/Act Aer, 108 MCG IN Q4HPRN PRN for 30 Days, #1 AER prn shortness of breath Prov:JOYA PLATT THERAPEUTIC DIETITIAN 06/22/25 Doxycycline (Monohydrate) (Doxycycline) 100 Mg Cap, 100 MG PO BID for 7 Days, #14 CAP Prov:JOYA PLATT THERAPEUTIC DIETITIAN 06/22/25 Methylprednisolone (Medrol Dosepak) 4 Mg Shyam, 4 MG PO UD, #21 TAB UAD Prov:JOYA PLATT THERAPEUTIC DIETITIAN 06/22/25 Past Medical History Patient Family History: Anxiety disorder FH: COPD (chronic obstructive pulmonary disease) FH: schizophrenia Review of Systems Constitutional: No symptom reported Pulmonary/Respiratory: Cough, Pleuritic Chest Pain Cardiovascular: No symptom reported Gastrointestinal: No symptom reported Musculoskeletal: No symptom reported Skin: No symptom reported Psychiatric: No symptom reported Endocrine: No symptom reported Hemotologic/Lymphatic: No symptom reported H&P Exam Vital Signs Vital Signs Date Time Temp Pulse Resp B/P (MAP) Pulse Ox O2 Delivery O2 Flow Rate FiO2 06/30/25 20:10 97.0 101 18 105/73 94 97.0 General Appeara: Mild distress Head Exam: Normal inspection Neck Exam: Normal inspection Pulmonary/Respiratory: Normal inspection Cardiovascular/Chest: Normal inspection Abdominal Exam: Normal bowel sounds SEPSIS Sepsis Screen Date sepsis recognized/suspect: Jun 30, 2025 Time Sepsis recognized/suspect: 2009 Recent Procedure: No On Antibiotic Therapy: No Respiratory Rate >20: No Heart Rate >90: No Temp<36 C (96.8 F) or >38.3 C: No SBP <90 or MAP <65 mmHG: No New Acute Mental Status Change: No Is the patient on CPAP, BIPAP,: No Physician Orders Troponin-I Hs (06/30/25 23:13) Chest Xray 1 View (06/30/25 20:13) Electrocardigram (06/30/25 20:13) Admit (06/30/25 23:49) Code Status (06/30/25 23:49) Enoxaparin Sodium (Lovenox) (07/01/25 10:00) Complete Blood Count (07/01/25 04:00) Comprehensive Metabolic Panel (07/01/25 04:00) Cardiac Diet-2gna,Lofat,Lochol (07/01/25 Breakfast) Condition: Fair (06/30/25 23:49) Nitroglycerin Sublingual (Ntrostat Subli (07/01/25 00:00) Morphine Sulfate Injection (07/01/25 00:00) Stat Ekg For Chest Pain (06/30/25 23:49) Notify Of Changes From Base (06/30/25 23:49) Switch Inspector For 24 Hours (06/30/25 23:49) Vital Signs Date Time Temp Pulse Resp B/P (MAP) Pulse Ox O2 Delivery O2 Flow Rate FiO2 06/30/25 20:10 97.0 101 18 105/73 94 97.0 Laboratory Tests Test 06/30/25 20:31 White Blood Count 5.9 10^3/uL (4.4-10.8) # Labs/Xrays Labs Test 06/30/25 22:20 06/30/25 20:31 Range/Units Troponin I High Sensitivity < 3 L </=34 ng/L B-Type Natriuretic Peptide 19.94 0-100 pg/mL White Blood Count 5.9 # 4.4-10.8 10^3/uL Red Blood Count 4.80 4.0-5.20 10^6/uL Hemoglobin 15.3 12.2-16.2 g/dL Hematocrit 47.4 H 36.0-46.0 % Mean Corpuscular Volume 98.8 80.0-100.0 fL Mean Corpuscular Hemoglobin 31.9 28.0-32.0 pg Mean Corpuscular Hemoglobin Concent 32.3 32.0-36.0 g/dL Red Cell Distribution Width 16.0 H 11.8-14.3 % Platelet Count 228 140-450 10^3/uL Mean Platelet Volume 8.2 6.9-10.8 fL Neutrophils (%) (Auto) 93.7 H 37.0-80.0 % Lymphocytes (%) (Auto) 4.6 L 10.0-50.0 % Monocytes (%) (Auto) 1.5 0.0-12.0 % Eosinophils (%) (Auto) 0.1 0.0-7.0 % Basophils (%) (Auto) 0.1 0.0-2.0 % Neutrophils # (Auto) 5.5 1.6-8.6 10 ^3/uL Lymphocytes # (Auto) 0.3 L 0.4-5.4 10 ^3/uL Monocytes # (Auto) 0.1 0-1.3 10 ^3/uL Eosinophils # (Auto) 0 0-0.8 10 ^3/uL Basophils # (Auto) 0 0-0.2 10 ^3/uL Nucleated Red Blood Cells 0.0 % Sodium Level 135 #L 136-145 mmol/L Potassium Level 4.5 3.5-5.1 mmol/L Chloride Level 94 L 98-107 mmol/L Carbon Dioxide Level 33 H 20-31 mmol/L Anion Gap 8 5-15 Blood Urea Nitrogen 6 L 9-23 mg/dL Creatinine 0.56 0.550-1.02 mg/dL Glomerular Filtration Rate Calc 107 >90 mL/min BUN/Creatinine Ratio 10.7 10.0-20.0 Serum Glucose 130 H 74-106 mg/dL Calcium Level 9.3 8.7-10.4 mg/dL Magnesium Level 2.2 1.6-2.6 mg/dL Total Bilirubin 0.3 0.2-1.0 mg/dL Aspartate Amino Transferase (AST) 15 13-40 U/L Alanine Aminotransferase (ALT) 19 7-40 U/L Alkaline Phosphatase 66 46-116 U/L Total Protein 6.1 5.7-8.2 g/dL Albumin 4.1 3.2-4.8 g/dL Assessment/Plan Primary Diagnosis COPD exacerbation acute on chronic hypoxic resp failure anxiety bipolar protein-calorie malnutrition weight loss weakness rule out PNA Plan discussed with: Patient ADAM SU DO Jun 30, 2025 23:52
[2025-07-01] VITALS (19 sets, daily range): BP systolic 105–134; BP diastolic 73–79; PULSE 80–102; RESP 18–24; TEMP 97–98.7; O2SAT 88–100
[2025-07-01] MEDS ORDERED: NITROGLYCERIN 0.4 MG SL TAB SL PRN
--- NOTE | 2025-07-01 01:28 | DVHHP2 ---
Admitting Diagnosis: Shortness of breath History of Present Illness This is a 55 year old paranoid schizophrenic who presents today from her assisted living facility with complaints of shortness of breath and cough. Past Medical History Medical non-compliance- Patient does not take medications as prescribed and has frequent re-admissions COPD exacerbation- Start med neb treatments and oral steroids. She has been refusing IV meds Smoker- Smoking cessation counseling Acute on chronic hypoxic respiratory failure- Supplemental O2 Schizophrenia- Restart home meds and certified rehabilitation counselor in compliance Past Surgical History unknown Family History unknown Social History Smoker: Quit Less Than 1 Year, Cigarettes Alcohol: Denies ETOH Use Drugs: Denies Drug Use Lives In: Assisted Care Constitutional: denies: chills, diaphoresis, fatigue, fever, malaise, sweats, weakness, others EENTM: denies: blurred vision, double vision, ear bleeding, ear discharge, ear drainage, ear pain, ear ringing, eye pain, eye redness, hearing loss, mouth pain, mouth swelling, nasal discharge, nose bleeding, nose congestion, nose pain, photophobia, tearing, throat pain, throat swelling, voice changes, others Respiratory: denies: cough, hemoptysis, orthopnea, SOB at rest, shortness of breath, SOB with excertion, stridor, wheezing, others Cardiovascular: denies: chest pain, dizzy spells, diaphoresis, Dyspnea on exertion, edema, irregular heart beat, left arm pain, lightheadedness, palpitations, PND, syncope, others Gastrointestinal: denies: abdomen distended, abdominal pain, blood streaked bowels, constipated, diarrhea, dysphagia, difficulty swallowing, hematemesis, melena, nausea, poor appetite, poor fluid intake, rectal bleeding, rectal pain, vomiting, others Genitourinary: denies: abnormal vagina bleeding, burning, dyspareunia, dysuria, flank pain, frequency, hematuria, incontinence, pain, , vagina discharge, urgency, others Neurological: denies: dizziness, fainting, headache, left sided numbness, left sided weakness, numbness, paresthesia, pre-existing deficit, right sided numbne ss, right sided weakness, seizure, speech problems, tingling, tremors, weakness, others Musculoskeletal: denies: back pain, gout, joint pain, joint swelling, muscle pain, muscle stiffness, neck pain, others Integumetry: denies: bruises, change in color, change in hair/nails, dryness, laceration, lesions, lumps, rash, wounds, others Allergic/Immunocompromised: denies: Difficulty Healing, Frequent Infections, Hives, Itching, others Hematologic/Lymphatic: denies: anemia, blood clots, easy bleeding, easy bruising, swollen glands, others Endocrine: denies: excessive hunger, excessive sweating, excessive thirst, excessive urination, flushing, intolerance to cold, intolerance to heat, unexplained weight gain, unexplained weight loss, others Psychiatric: reports: others; denies: anxiety, bipolar disorder, depression, hopeless, panic disorder, schizophrenia, sleepless, suicidal All Other Systems: Reviewed and Negative Patient Family History: Anxiety disorder FH: COPD (chronic obstructive pulmonary disease) FH: schizophrenia Allergies: Coded Allergies: Lactose (Verified Allergy, Severe, 11/15/24) Allergies Lactose Home Meds Active Scripts Prednisone (Prednisone) 20 Mg Tab, 20 MG PO DAILY for 5 Days, #5 MG Prov:JOYA PLATT GRAPHIC ARTS INSTRUCTOR 06/29/25 Levofloxacin Hemihydrate (LEVAQUIN 500 MG) 500 Mg Tab, 1 TAB PO DAILY, #7 TAB Prov:JOYA PLATT GRAPHIC ARTS INSTRUCTOR 06/29/25 Dicyclomine Hcl (BENTYL CAPSULE) 10 Mg Cp, 1 CAP PO Q6HPRN, #20 CAP 0 Refills Prov:MAMI ESTRADA PAC 06/24/25 Loperamide Hcl (Imodium) 2 Mg Cp, 2 MG PO Q6HPRN PRN for 30 Days, #10 CAP Prov:JOYA PLATT GRAPHIC ARTS INSTRUCTOR 06/22/25 Tiotropium [place] Monohydrate (Spiriva Respimat) 2.5 Mcg/Act Spr, 2.5 MCG IN DAILY for 30 Days, #10 SPRAY 3 Refills 2 puffs daily Prov:JOYA PLATT GRAPHIC ARTS INSTRUCTOR 06/22/25 Divalproex Sodium (Divalproex Sodium) 500 Mg Tab, 500 MG PO BID for 30 Days, #60 MG Prov:JOYA PLATT GRAPHIC ARTS INSTRUCTOR 05/19/25 Haloperidol (Haldol) 5 Mg Tb, 3 MG PO BID for 30 Days, #60 MG Prov:JOYA PLATT NP 05/19/25 Benztropine Mesylate (Benztropine Mesylate) 1 Mg Tab, 1 MG PO BID for 30 Days, #60 MG Prov:JOYA PLATT GRAPHIC ARTS INSTRUCTOR 05/19/25 Trazodone Hcl (Trazodone Hcl) 50 Mg Tab, 75 MG PO HS for 30 Days, #45 MG Prov:JOYA PLATT GRAPHIC ARTS INSTRUCTOR 05/19/25 Albuterol Sulfate (Albuterol Sulfate Hfa) 108 Mcg/Act Aer, 108 MCG IN Q4HP PRN for 30 Days, #1 AER 2 puffs inhalation Prov:JOYA PLATT GRAPHIC ARTS INSTRUCTOR 05/13/25 Reported Medications Albuterol Sulfate (Albuterol Sulfate (5 mg/ml) 0.5%) 1 Neb Neb, 1 NEB IN, INH 10/19/24 Discontinued Scripts Albuterol Sulfate (Albuterol Sulfate Hfa) 108 Mcg/Act Aer, 108 MCG IN Q4HPRN PRN for 30 Days, #1 AER prn shortness of breath Prov:JOYA PLATT GRAPHIC ARTS INSTRUCTOR 06/22/25 Doxycycline (Monohydrate) (Doxycycline) 100 Mg Cap, 100 MG PO BID for 7 Days, #14 CAP Prov:JOYA PLATT GRAPHIC ARTS INSTRUCTOR 06/22/25 Methylprednisolone (Medrol Dosepak) 4 Mg Shyam, 4 MG PO UD, #21 TAB UAD Prov:JOYA PLATT NP 06/22/25 Current Medications Current Medications Medications (Trade) Dose Ordered Sig/Elaine Route PRN Reason Start Time Stop Time Status Last Admin Enoxaparin Sodium (Lovenox) 40 mg DAILY SC 07/01/25 10:00 Nitroglycerin (Ntrostat Sublingual) 0.4 mg Q5MINP PRN SL FOR CHEST PAIN 07/01/25 00:00 Morphine Sulfate 2 mg Q30M PRN IV FOR CHEST PAIN 07/01/25 00:00 Acetaminophen/ Hydrocodone Bitart ([place] 5/325MG Tab) 1 tab Q4HP PRN PO MODERATE PAIN (4-6 PAIN SCALE) 07/01/25 01:30 Temazepam (Restoril) 15 mg QHSP PRN PO FOR INSOMNIA 07/01/25 01:30 Ondansetron HCl (Zofran) 4 mg Q4HP PRN IV NAUSEA / VOMITING 07/01/25 01:30 Docusate Sodium (Colace Capsule) 100 mg BIDPRN PRN PO FOR CONSTIPATION 07/01/25 01:30 Acetaminophen (Tylenol Tablet) 650 mg Q6HP PRN PO PAIN SCALE 1-3 OR TEMP>100.4 07/01/25 01:30 Morphine Sulfate 2 mg Q4HPRN PRN IV SEVERE PAIN (7-10 PAIN SCALE) 07/01/25 01:30 Enoxaparin Sodium (Lovenox) 40 mg DAILY SC 07/01/25 10:00 07/01/25 02:36 DC Azithromycin 250 ml @ 125 mls/hr DAILY IV 07/01/25 10:00 Budesonide (Pulmicort) 0.5 mg BID NEB 07/01/25 10:00 07/01/25 06:56 Albuterol (Ventolin Medneb) 2.5 mg Q4HR NEB 07/01/25 02:00 07/01/25 10:57 Guaifenesin/ Dextromethorphan (Robitussin-Dm Liquid) 10 ml Q4HP PRN PO FOR COUGH 07/01/25 01:30 Dicyclomine HCl (Bentyl Capsule) 10 mg Q6HPRN PO 07/01/25 06:00 07/01/25 05:43 Haloperidol (Haldol Tablet) 3 mg BID PO 07/01/25 10:00 Loperamide HCl (Imodium Capsule) 2 mg Q6HPRN PRN PO FOR DIARRHEA 07/01/25 01:30 Trazodone HCl (Desyrel) 75 mg HS PO 07/01/25 22:00 Patient Own Medication 1 mg BID PO 07/01/25 10:00 UNV Divalproex Sodium (Depakote "Dr" Tablet) 500 mg BID PO 07/01/25 10:00 Patient Own Medication 20 mg DAILY PO 07/01/25 10:00 UNV Prednisone 20 mg DAILY PO 07/01/25 10:00 07/05/25 10:01 Benztropine Mesylate (Cogentin Tablet) 1 mg BID PO 07/01/25 10:00 Vital Signs Vital Signs Date Time Temp Pulse Resp B/P (MAP) Pulse Ox O2 Delivery O2 Flow Rate FiO2 07/01/25 11:03 90 18 100 07/01/25 10:57 Nasal Cannula 3.0 07/01/25 10:57 32 07/01/25 07:28 97.8 118/75 (89) 97.8 Physical Exam General Appearance: Thin, short of breath with speech HEENT: Normal ENT Inspection, Pharynx Normal, TMs Normal Neck: Full Range of Motion, Non-Tender, Normal, Normal Inspection Respiratory: Chest Non-Tender, Lungs Clear, Accessory Muscle Use, Some respiratory distress talking, Normal Breath Sounds Cardiovascular: No Edema, No JVD, No Murmur, No Gallop, Normal Peripheral Pulses, Regular Rate/Rhythm Breast Exam: Deferred Gastrointestinal: No Organomegaly, Non Tender, No Pulsatile Mass, Normal Bowel Sounds, Soft Genitalia: Deferred Pelvic: Deferred Rectal: Deferred Extremities: No calf tenderness, Normal capillary refill, Normal inspection, Normal range of motion, Non-tender, No pedal edema Musculoskeletal : Apperance: Normal Neurologic: Alert, senior support engineer II-XII nml as Tested, No Motor Deficits, Normal Affect, Normal Mood, No Sensory Deficits Cerebellar Function: Normal Reflexes: Normal Skin: Dry, Normal Color, Warm Lymphatic: No Adenopathy SEPSIS Sepsis Screen Date sepsis recognized/suspect: Jun 30, 2025 Time Sepsis recognized/suspect: 2009 Recent Procedure: No On Antibiotic Therapy: No Respiratory Rate >20: No Heart Rate >90: No Temp<36 C (96.8 F) or >38.3 C: No SBP <90 or MAP <65 mmHG: No New Acute Mental Status Change: No Is the patient on CPAP, BIPAP,: No Physician Orders Chest Xray 1 View (06/30/25 20:13) Electrocardigram (06/30/25 20:13) Admit (06/30/25 23:49) Enoxaparin Sodium (Lovenox) (07/01/25 10:00) Cardiac Diet-2gna,Lofat,Lochol (07/01/25 Breakfast) Condition: Fair (06/30/25 23:49) Nitroglycerin Sublingual (Ntrostat Subli (07/01/25 00:00) Morphine Sulfate Injection (07/01/25 00:00) Stat Ekg For Chest Pain (06/30/25 23:49) Notify Md Of Changes From Base (06/30/25 23:49) Computer Systems Information Director For 24 Hours (06/30/25 23:49) Emergency Dysrhythmia Protocol (06/30/25 23:49) Rhythm Strips Once Every Shift (06/30/25 23:49) Oxygen By Nasal Cannula (06/30/25 23:49) Code Status (07/01/25 01:17) Oxygen Per Hour (07/01/25 01:17) Hydrocodone-Acet 5/325mg Tab ([place] 5/32 (07/01/25 01:30) Temazepam (Restoril) (07/01/25 01:30) Ondansetron Hcl (Zofran) (07/01/25 01:30) Docusate Sodium Capsule (Colace Capsule) (07/01/25 01:30) Complete Blood Count (07/02/25 04:00) Comprehensive Metabolic Panel (07/02/25 04:00) Condition: Stable (07/01/25 01:17) Acetaminophen Tablet (Tylenol Tablet) (07/01/25 01:30) Morphine Sulfate Injection (07/01/25 01:30) Sequential Compression Device (07/01/25 ) Azithromycin 500mg/ 250ml (Zithromax 50 (07/01/25 10:00) Budesonide (Inhalation) (Pulmicort) (07/01/25 10:00) Albuterol Medneb (Ventolin Medneb) (07/01/25 02:00) Guaifenesin-Dextromet Liquid (Robitussin (07/01/25 01:30) Dicyclomine Capsule (Bentyl Capsule) (07/01/25 06:00) Haloperidol Tablet (Haldol Tablet) (07/01/25 10:00) Loperamide Capsule (Imodium Capsule) (07/01/25 01:30) Trazodone Hcl (Desyrel) (07/01/25 22:00) Divalproex Dr Tablet (Depakote "Dr" Tabl (07/01/25 10:00) Prednisone Tablet (07/01/25 10:00) Benztropine Tablet (Cogentin Tablet) (07/01/25 10:00) Vital Signs Date Time Temp Pulse Resp B/P (MAP) Pulse Ox O2 Delivery O2 Flow Rate FiO2 07/01/25 11:03 90 18 100 07/01/25 10:57 100 Nasal Cannula 3.0 07/01/25 10:57 85 18 100 07/01/25 10:57 100 Nasal Cannula* 3 32 07/01/25 08:00 87 07/01/25 07:28 97.8 80 24 118/75 (89) 98 97.8 07/01/25 07:28 80 24 98 Nasal Cannula* 3 32 07/01/25 07:04 80 18 100 07/01/25 07:00 82 20 121/67 (85) 100 07/01/25 05:56 100 Nasal Cannula 3.0 07/01/25 05:56 86 18 100 07/01/25 05:56 100 Nasal Cannula* 3 32 07/01/25 03:42 100/57 07/01/25 03:00 86 22 98 Room Air* 0 21 07/01/25 03:00 98.5 86 22 100/57 (71) 98 98.5 07/01/25 02:20 97.0 101 18 105/73 88 21 97.0 07/01/25 01:57 93 18 100 07/01/25 01:51 88 Room Air 07/01/25 01:51 88 Room Air* 0 21 07/01/25 01:51 101 18 88 06/30/25 21:42 18 94 Room Air* 0 21 06/30/25 20:10 97.0 101 18 105/73 94 97.0 Laboratory Tests Test 06/30/25 20:31 07/01/25 05:22 White Blood Count 5.9 10^3/uL (4.4-10.8) # 11.0 10^3/uL (4.4-10.8) #H Medications Medications Dose Ordered Sig/Elaine Route Start Time Stop Time Status Last Admin Dose Admin Albuterol 2.5 mg Q4HR NEB 07/01/25 02:00 07/01/25 10:57 Budesonide 0.5 mg BID NEB 07/01/25 10:00 07/01/25 06:56 Dicyclomine HCl 10 mg Q6HPRN PO 07/01/25 06:00 07/01/25 05:43 Results Labs Test 07/01/25 05:22 06/30/25 22:20 06/30/25 20:31 Range/Units White Blood Count 11.0 #H 4.4-10.8 10^3/uL Red Blood Count 4.77 4.0-5.20 10^6/uL Hemoglobin 14.8 12.2-16.2 g/dL Hematocrit 45.6 36.0-46.0 % Mean Corpuscular Volume 95.5 80.0-100.0 fL Mean Corpuscular Hemoglobin 30.9 28.0-32.0 pg Mean Corpuscular Hemoglobin Concent 32.4 32.0-36.0 g/dL Red Cell Distribution Width 15.1 H 11.8-14.3 % Platelet Count 229 140-450 10^3/uL Mean Platelet Volume 9.0 6.9-10.8 fL Neutrophils (%) (Auto) 83.2 H 37.0-80.0 % Lymphocytes (%) (Auto) 9.9 L 10.0-50.0 % Monocytes (%) (Auto) 6.5 0.0-12.0 % Eosinophils (%) (Auto) 0.1 0.0-7.0 % Basophils (%) (Auto) 0.3 0.0-2.0 % Neutrophils # (Auto) 9.2 H 1.6-8.6 10 ^3/uL Lymphocytes # (Auto) 1.1 0.4-5.4 10 ^3/uL Monocytes # (Auto) 0.7 0-1.3 10 ^3/uL Eosinophils # (Auto) 0 0-0.8 10 ^3/uL Basophils # (Auto) 0 0-0.2 10 ^3/uL Nucleated Red Blood Cells 0.3 % Sodium Level 136 136-145 mmol/L Potassium Level 4.6 3.5-5.1 mmol/L Chloride Level 94 L 98-107 mmol/L Carbon Dioxide Level 35 H 20-31 mmol/L Anion Gap 7 5-15 Blood Urea Nitrogen 10 9-23 mg/dL Creatinine 0.47 L 0.550-1.02 mg/dL Glomerular Filtration Rate Calc 112 >90 mL/min BUN/Creatinine Ratio 21.3 H 10.0-20.0 Serum Glucose 77 74-106 mg/dL Calcium Level 9.5 8.7-10.4 mg/dL Total Bilirubin 0.3 0.2-1.0 mg/dL Aspartate Amino Transferase (AST) 12 L 13-40 U/L Alanine Aminotransferase (ALT) 20 7-40 U/L Alkaline Phosphatase 64 46-116 U/L Total Protein 5.8 5.7-8.2 g/dL Albumin 4.1 3.2-4.8 g/dL Troponin I High Sensitivity < 3 L </=34 ng/L B-Type Natriuretic Peptide 19.94 0-100 pg/mL Magnesium Level 2.2 1.6-2.6 mg/dL Primary Diagnosis COPD exacerbation Plan discussed with: Patient Problems List: (1) Acute and chronic respiratory failure Status: Acute (2) Smoker Status: Chronic (3) Schizophrenia Status: Chronic (4) COPD with acute exacerbation Status: Acute JOYA PLATT NP Jul 01, 2025 01:28
[2025-07-01] MEDS ORDERED: DOCUSATE SOD 100 MG CAP PO PRN (01:30)
[2025-07-01] MEDS ORDERED: MORPHINE SULFATE INJ 2 MG/ml SYRG IV PRN ×2 (01:30)
[2025-07-01] MEDS ORDERED: TEMAZEPAM 15 MG CAP PO PRN (01:30)
[2025-07-01] MEDS ORDERED: LOPERAMIDE HCL 2 MG CAP/TAB PO PRN (01:30)
[2025-07-01] MEDS ORDERED: ONDANSETRON HCL 4 MG/2 ML VIAL IV PRN (01:30)
[2025-07-01] MEDS ORDERED: HYDROcodone-ACET 5/325MG TAB PO PRN (01:30)
[2025-07-01] MEDS: ALBUTEROL SULF 2.5 MG/0.5ML(0.5%) NEB SOLN NEB SCH (01:51)
[2025-07-01] MEDS: FUROSEMIDE 40 MG/4 ML VIAL IV ONE (03:42)
[2025-07-01] MEDS: DICYCLOMINE HCL 10 MG CAP PO SCH (05:43)
[2025-07-01 06:20] LABS: Alanine Aminotransferase 20 U/L (7-40); Albumin 4.1 g/dL (3.2-4.8); Alkaline Phosphatase 64 U/L (46-116); Anion Gap 7 (5-15); BUN/Creatinine Ratio 21.3 (10.0-20.0); Bilirubin, Total 0.3 mg/dL (0.2-1.0); Blood Urea Nitrogen 10 mg/dL (9-23); Calcium 9.5 mg/dL (8.7-10.4); Glucose 77 mg/dL (74-106); Potassium 4.6 mmol/L (3.5-5.1); Sodium 136 mmol/L (136-145); Total Protein 5.8 g/dL (5.7-8.2)
[2025-07-01 06:22] LABS: Carbon Dioxide 35 mmol/L (20-31); Chloride 94 mmol/L (98-107)
[2025-07-01 06:28] LABS: Hematocrit 45.6 % (36.0-46.0); Hemoglobin 14.8 g/dL (12.2-16.2); Mean Corpuscular Hemoglobin 30.9 pg (28.0-32.0); Mean Corpuscular Volume 95.5 fL (80.0-100.0); Nucleated Red Blood Cells % 0.3 %
[2025-07-01] MEDS: BUDESONIDE (INHALATION) 0.5 MG/2 ML NEB NEB SCH (06:56)
[2025-07-01] MEDS ORDERED: PATIENTS OWN MEDICATION (Prednisone 20 MG) PO SCH (10:00)
[2025-07-01] MEDS ORDERED: ENOXAPARIN SOD 40 MG/0.4 ML SYRINGE SC SCH (10:00)
[2025-07-01] MEDS ORDERED: BENZTROPINE MESYLATE 1 MG PO SCH (10:00)
[2025-07-01] MEDS: AZITHROMYCIN 500MG/ 250ML 250 ML IV SCH (12:03)
[2025-07-01] MEDS: HALOPERIDOL 5 MG TAB PO SCH (12:03)
[2025-07-01] MEDS: predniSONE 20 MG TAB PO SCH (12:04)
[2025-07-01] MEDS: BENZTROPINE MESY 0.5 MG TAB PO SCH (12:05)
[2025-07-01] MEDS: ENOXAPARIN SOD 40 MG/0.4 ML SYRINGE SC SCH (12:08)
--- NOTE | 2025-07-01 13:15 | DVHPN2 ---
Progress Note Date Seen: Jul 01, 2025 Medical Necessity Reason Pt with a Central, PICC or Fol: No Subjective Patient reports: No new complaints Review of Systems: HEENT:Normal, CVS:Normal, RESPIRATORY:Abnormal (coughing) Objective vital signs Vital Sign Date Time Temp Pulse Resp B/P (MAP) Pulse Ox O2 Delivery O2 Flow Rate FiO2 07/01/25 12:00 98 07/01/25 11:03 18 100 07/01/25 10:57 Nasal Cannula 3.0 07/01/25 10:57 32 07/01/25 07:28 97.8 118/75 (89) 97.8 medications Current Medications Medications Dose Ordered Sig/Elaine Route Start Time Stop Time Status Last Admin Dose Admin Enoxaparin Sodium 40 mg DAILY SC 07/01/25 10:00 07/01/25 12:08 40 MG Nitroglycerin 0.4 mg Q5MINP PRN SL 07/01/25 00:00 Morphine Sulfate 2 mg Q30M PRN IV 07/01/25 00:00 Acetaminophen/ Hydrocodone Bitart 1 tab Q4HP PRN PO 07/01/25 01:30 Temazepam 15 mg QHSP PRN PO 07/01/25 01:30 Ondansetron HCl 4 mg Q4HP PRN IV 07/01/25 01:30 Docusate Sodium 100 mg BIDPRN PRN PO 07/01/25 01:30 Acetaminophen 650 mg Q6HP PRN PO 07/01/25 01:30 Morphine Sulfate 2 mg Q4HPRN PRN IV 07/01/25 01:30 Azithromycin 250 ml @ 125 mls/hr DAILY IV 07/01/25 10:00 Budesonide 0.5 mg BID NEB 07/01/25 10:00 07/01/25 06:56 0.5 MG Albuterol 2.5 mg Q4HR NEB 07/01/25 02:00 07/01/25 10:57 2.5 MG Guaifenesin/ Dextromethorphan 10 ml Q4HP PRN PO 07/01/25 01:30 Dicyclomine HCl 10 mg Q6HPRN PO 07/01/25 06:00 07/01/25 05:43 10 MG Haloperidol 3 mg BID PO 07/01/25 10:00 Loperamide HCl 2 mg Q6HPRN PRN PO 07/01/25 01:30 Trazodone HCl 75 mg HS PO 07/01/25 22:00 Patient Own Medication 1 mg BID PO 07/01/25 10:00 UNV Divalproex Sodium 500 mg BID PO 07/01/25 10:00 Patient Own Medication 20 mg DAILY PO 07/01/25 10:00 UNV Prednisone 20 mg DAILY PO 07/01/25 10:00 07/05/25 10:01 07/01/25 12:04 20 MG Benztropine Mesylate 1 mg BID PO 07/01/25 10:00 Examination: GENERAL:Normal, HEENT:Normal, NECK:Normal laboratory and microbiology Laboratory Tests 07/01/25 05:22 Test 07/01/25 05:22 Range/Units Serum Glucose 77 74-106 mg/dL Labs and/or images reviewed: Labs reviewed by me, Image(s) reviewed by me Problem List/Assessment/Plan Problem List/Assessment/Plan COPD exacerbation acute on chronic hypoxic resp failure anxiety bipolar protein-calorie malnutrition weight loss weakness rule out PNA, no PNA metabolic alkalosis Plan discussed with: Patient My Orders My Orders Orders - ADAM SU DO Procedure Category Date Status Time Admit ADMIT 06/30/25 Transmitted 23:49 Enoxaparin Sodium PHA 07/01/25 In Process (Lovenox) 10:00 Cardiac DIET 07/01/25 Transmitted Diet-2gna,Lofat,Lochol Breakfast Condition: Fair AMINATA 06/30/25 In Process 23:49 Nitroglycerin PHA 07/01/25 In Process Sublingual (Ntrostat 00:00 Morphine Sulfate PHA 07/01/25 In Process Injection 00:00 Stat Ekg For Chest AMINATA 06/30/25 In Process Pain 23:49 Notify Md Of Changes AMINATA 06/30/25 In Process From Base 23:49 Engagement Lead For AMINATA 06/30/25 In Process 24 Hours 23:49 Emergency Dysrhythmia AMINATA 06/30/25 In Process Protocol 23:49 Rhythm Strips Once AMINATA 06/30/25 In Process Every Shift 23:49 Oxygen By Nasal RT 06/30/25 Transmitted Cannula 23:49 ADAM SU DO Jul 01, 2025 13:15
[2025-07-01] MEDS ORDERED: guaiFENesin-CODEINE Liq 5 ML UD PO PRN (13:30)
[2025-07-01] MEDS: ACETAMINOPHEN 325 MG TAB PO PRN (16:58)
[2025-07-01] MEDS: ALPRAZolam 0.5 MG TAB PO SCH (22:00)
[2025-07-02] VITALS (17 sets, daily range): BP systolic 109–124; BP diastolic 61–76; PULSE 77–118; RESP 17–24; TEMP 97.8–98.5; O2SAT 60–100
[2025-07-02] MEDS: LORazepam 0.5 MG TAB PO ONE (00:07)
[2025-07-02 07:49] LABS: Hematocrit 41.7 % (36.0-46.0); Hemoglobin 13.7 g/dL (12.2-16.2); Mean Corpuscular Hemoglobin 31.6 pg (28.0-32.0); Mean Corpuscular Volume 96.3 fL (80.0-100.0); Nucleated Red Blood Cells % 0.1 %
[2025-07-02 08:09] LABS: Alanine Aminotransferase 15 U/L (7-40); Alkaline Phosphatase 52 U/L (46-116); BUN/Creatinine Ratio 18.2 (10.0-20.0); Calcium 8.7 mg/dL (8.7-10.4); Potassium 4.3 mmol/L (3.5-5.1); Sodium 143 mmol/L (136-145)
[2025-07-02] MEDS: guaiFENesin-DM 100/10mg/5ml SYR PO PRN (08:09)
[2025-07-02 08:10] LABS: Albumin 3.4 g/dL (3.2-4.8)
[2025-07-02 08:16] LABS: Bilirubin, Total 0.3 mg/dL (0.2-1.0)
[2025-07-02 08:20] LABS: Anion Gap 5.99999 (5-15); Blood Urea Nitrogen 8 mg/dL (9-23); Carbon Dioxide > 40 mmol/L (20-31); Chloride 97 mmol/L (98-107); Glucose 64 mg/dL (74-106); Total Protein 4.9 g/dL (5.7-8.2)
--- NOTE | 2025-07-02 09:56 | DVHINCON2 ---
Date of service: Jul 02, [address] albert Reason for Consultation copd History of Present Illness HPI Patient is a 55-year-old lady with a history of COPD emphysema with recent admission to this institution. Patient was discharged to SNF however presented back with worsening cough and dyspnea. Patient is at baseline on oxygen. Chest x-ray hyperinflated lungs and increased bronchovascular markings. Home Meds Active Scripts Prednisone (Prednisone) 20 Mg Tab, 20 MG PO DAILY for 5 Days, #5 MG Prov:JOYA PLATT METAL WEATHER STRIPPER 06/29/25 Levofloxacin Hemihydrate (LEVAQUIN 500 MG) 500 Mg Tab, 1 TAB PO DAILY, #7 TAB Prov:JOYA PLATT METAL WEATHER STRIPPER 06/29/25 Dicyclomine Hcl (BENTYL CAPSULE) 10 Mg Cp, 1 CAP PO Q6HPRN, #20 CAP 0 Refills Prov:MAMI ESTRADA PAC 06/24/25 Loperamide Hcl (Imodium) 2 Mg Cp, 2 MG PO Q6HPRN PRN for 30 Days, #10 CAP Prov:JOYA PLATT METAL WEATHER STRIPPER 06/22/25 Tiotropium [place] Monohydrate (Spiriva Respimat) 2.5 Mcg/Act Spr, 2.5 MCG IN DAILY for 30 Days, #10 SPRAY 3 Refills 2 puffs daily Prov:JOYA PLATT METAL WEATHER STRIPPER 06/22/25 Divalproex Sodium (Divalproex Sodium) 500 Mg Tab, 500 MG PO BID for 30 Days, #60 MG Prov:JOYA PLATT METAL WEATHER STRIPPER 05/19/25 Haloperidol (Haldol) 5 Mg Tb, 3 MG PO BID for 30 Days, #60 MG Prov:GIULIAJOYA Wang METAL WEATHER STRIPPER 05/19/25 Benztropine Mesylate (Benztropine Mesylate) 1 Mg Tab, 1 MG PO BID for 30 Days, #60 MG Prov:JOYA PLATT METAL WEATHER STRIPPER 05/19/25 Trazodone Hcl (Trazodone Hcl) 50 Mg Tab, 75 MG PO HS for 30 Days, #45 MG Prov:JOYA PLATT METAL WEATHER STRIPPER 05/19/25 Albuterol Sulfate (Albuterol Sulfate Hfa) 108 Mcg/Act Aer, 108 MCG IN Q4HP PRN for 30 Days, #1 AER 2 puffs inhalation Prov:JOYA PLATT METAL WEATHER STRIPPER 05/13/25 Reported Medications Albuterol Sulfate (Albuterol Sulfate (5 mg/ml) 0.5%) 1 Neb Neb, 1 NEB IN, INH 10/19/24 Discontinued Scripts Albuterol Sulfate (Albuterol Sulfate Hfa) 108 Mcg/Act Aer, 108 MCG IN Q4HPRN PRN for 30 Days, #1 AER prn shortness of breath Prov:JOYA PLATT METAL WEATHER STRIPPER 06/22/25 Doxycycline (Monohydrate) (Doxycycline) 100 Mg Cap, 100 MG PO BID for 7 Days, #14 CAP Prov:JOYA PLATT METAL WEATHER STRIPPER 06/22/25 Methylprednisolone (Medrol Dosepak) 4 Mg Shyam, 4 MG PO UD, #21 TAB UAD Prov:JOYA PLATT METAL WEATHER STRIPPER 06/22/25 Past Medical History Cardiac: No pertinent Hx Pulmonary: COPD Central Nervous System: No pertinent Hx GI: No pertinent Hx Hemotology/Oncology: No pertinent Hx Hepatobiliary: No pertinent Hx Psychiatric: No pertinent Hx Musculoskeletal: No pertinent Hx Rheumotologic: No pertinent Hx Infectious Disease: No peritnent Hx ENT: No pertinent Hx Renal/: No pertinent Hx Endocrine: No pertinent Hx Dermatology: No pertinent Hx Past Surgical History: No pertinent Hx Patient Family History: Anxiety disorder FH: COPD (chronic obstructive pulmonary disease) FH: schizophrenia Review of Systems Constitutional: No symptom reported Ears, Nose, & Throat: No symptom reported Pulmonary/Respiratory: Dyspnea, Cough Cardiovascular: No symptom reported Gastrointestinal: No symptom reported Genitourinary: No symptom reported Musculoskeletal: No symptom reported Psychiatric: No symptom reported Endocrine: No symptom reported Hemotologic/Lymphatic: No symptom reported H&P Exam Vital Signs Vital Signs Date Time Temp Pulse Resp B/P (MAP) Pulse Ox O2 Delivery O2 Flow Rate FiO2 07/02/25 08:00 Nasal Cannula* 2 28 07/02/25 05:05 92 24 95 07/02/25 04:56 97.8 109/61 (77) 97.8 General Appeara: Well developed, Well nourished, Normal Appearance Head Exam: Normal inspection Neck Exam: Normal inspection, Non-tender, Normal alignment Eye Exam: bilateral eye Normal inspection, bilateral eye PERRL, bilateral eye EOMI Ear Exam: bilateral ear Auricle normal, bilateral ear Canal normal Nasal Exam: Normal inspection Mouth: Normal Inspection Pulmonary/Respiratory: Normal inspection, Normal breath sounds, Chest non- tender Cardiovascular/Chest: Normal inspection Peripheral Pulses: 4+ carotid (R), 4+ carotid (L) Abdominal Exam: Normal bowel sounds, Soft Labs/Xrays Labs Test 07/02/25 06:30 06/30/25 22:20 06/30/25 20:31 Range/Units White Blood Count 6.3 # 4.4-10.8 10^3/uL Red Blood Count 4.33 4.0-5.20 10^6/uL Hemoglobin 13.7 12.2-16.2 g/dL Hematocrit 41.7 36.0-46.0 % Mean Corpuscular Volume 96.3 80.0-100.0 fL Mean Corpuscular Hemoglobin 31.6 28.0-32.0 pg Mean Corpuscular Hemoglobin Concent 32.8 32.0-36.0 g/dL Red Cell Distribution Width 15.3 H 11.8-14.3 % Platelet Count 208 140-450 10^3/uL Mean Platelet Volume 8.1 6.9-10.8 fL Neutrophils (%) (Auto) 66.9 37.0-80.0 % Lymphocytes (%) (Auto) 22.2 10.0-50.0 % Monocytes (%) (Auto) 10.6 0.0-12.0 % Eosinophils (%) (Auto) 0.3 0.0-7.0 % Basophils (%) (Auto) 0.0 0.0-2.0 % Neutrophils # (Auto) 4.2 1.6-8.6 10 ^3/uL Lymphocytes # (Auto) 1.4 0.4-5.4 10 ^3/uL Monocytes # (Auto) 0.7 0-1.3 10 ^3/uL Eosinophils # (Auto) 0 0-0.8 10 ^3/uL Basophils # (Auto) 0 0-0.2 10 ^3/uL Nucleated Red Blood Cells 0.1 % Sodium Level 143 # 136-145 mmol/L Potassium Level 4.3 3.5-5.1 mmol/L Chloride Level 97 L 98-107 mmol/L Carbon Dioxide Level > 40 *H 20-31 mmol/L Anion Gap 5.08717 5-15 Blood Urea Nitrogen 8 L 9-23 mg/dL Creatinine 0.44 L 0.550-1.02 mg/dL Glomerular Filtration Rate Calc 113 >90 mL/min BUN/Creatinine Ratio 18.2 10.0-20.0 Serum Glucose 64 L 74-106 mg/dL Calcium Level 8.7 8.7-10.4 mg/dL Total Bilirubin 0.3 0.2-1.0 mg/dL Aspartate Amino Transferase (AST) 10 L 13-40 U/L Alanine Aminotransferase (ALT) 15 7-40 U/L Alkaline Phosphatase 52 46-116 U/L Total Protein 4.9 L 5.7-8.2 g/dL Albumin 3.4 3.2-4.8 g/dL Troponin I High Sensitivity < 3 L </=34 ng/L B-Type Natriuretic Peptide 19.94 0-100 pg/mL Magnesium Level 2.2 1.6-2.6 mg/dL Assessment/Plan Plan Acute exacerbation of COPD Emphysema For respiratory failure acute on chronic Former smoker Management plan Systemic steroids With taper Antibiotics Bronchodilators For completeness obtain CT angiogram to rule out PE We will follow up Plan discussed with: Patient MARGUERITE MCCORMICK MD Jul 02, 2025 09:56
--- NOTE | 2025-07-02 10:28 | DVHINCON2 ---
Date of service: Jul 02, [address] Fernandez Reason for Consultation Acute hypoxic respiratory failure and COPD. History of Present Illness A 55-year-old woman with past medical history of COPD, GERD, hypertension and schizophrenia who presented to the ED on 06/30/25 from her assisted living facility with a chief complaint of hallucinations, onset day of presentation. Patient also complained of shortness of breath and cough. Per EMS, patient is from [facility], patient called 911 stating "they are trying to kill me." Patient stated people at the facility were trying to hurt her, she had to leave. Patient is a poor historian. Denied other acute complaints. Patient was admitted for further care. Pulmonary consultation is requested for evaluation and management of acute hypoxic respiratory failure and COPD. Review of Systems: 14-point review of systems negative unless otherwise noted above. Past Medical History COPD, gallstones, GERD, HTN, schizophrenia, UTIs. Past Surgical History Unknown Medications: Reviewed. Allergies: Lactose. Family History: COPD Anxiety disorder Schizophrenia Social History: Former smoker. Quit Less Than 1 Year, Cigarettes No alcohol or illicit drug use. Family History: Anxiety disorder FH: COPD (chronic obstructive pulmonary disease) FH: schizophrenia Allergies: Coded Allergies: Lactose (Verified Allergy, Severe, 11/15/24) Home Meds Active Scripts Ibuprofen (Ibuprofen) 600 Mg Tab, 1 TAB PO Q6HP PRN, #20 TAB Prov:MAMI ESTRADA PAC 07/08/25 Cephalexin (KEFLEX CAPSULE) 250 Mg Cp, 1 CAP PO QID for 3 Days, #12 CAP Prov:MAMI ESTRADA PAC 07/08/25 Azithromycin (Azithromycin) 500 Mg Tab, 1 TAB PO DAILY for 3 Days, #3 TAB Prov:MANDY OJEDA MD 07/04/25 Prednisone (Prednisone) 20 Mg Tab, 20 MG PO BID for 5 Days, #10 TAB Prov:MANDY OJEDA MD 07/04/25 Albuterol Sulfate (Albuterol Sulfate Hfa) 108 Mcg/Act Aer, 108 MCG IN Q6HP PRN, #1 AER Prov:MANDY OJEDA MD 07/04/25 Prednisone (Prednisone) 20 Mg Tab, 20 MG PO DAILY for 5 Days, #5 MG Prov:JOYA PLATT NP 06/29/25 Levofloxacin Hemihydrate (LEVAQUIN 500 MG) 500 Mg Tab, 1 TAB PO DAILY, #7 TAB Prov:JOYA PLATT WORKING MANAGER 06/29/25 Dicyclomine Hcl (BENTYL CAPSULE) 10 Mg Cp, 1 CAP PO Q6HPRN, #20 CAP 0 Refills Prov:MAMI ESTRADA PAC 06/24/25 Loperamide Hcl (Imodium) 2 Mg Cp, 2 MG PO Q6HPRN PRN for 30 Days, #10 CAP Prov:JOYA PLATT WORKING MANAGER 06/22/25 Tiotropium [place] Monohydrate (Spiriva Respimat) 2.5 Mcg/Act Spr, 2.5 MCG IN DAILY for 30 Days, #10 SPRAY 3 Refills 2 puffs daily Prov:JOYA PLATT WORKING MANAGER 06/22/25 Divalproex Sodium (Divalproex Sodium) 500 Mg Tab, 500 MG PO BID for 30 Days, #60 MG Prov:JOYA PLATT WORKING MANAGER 05/19/25 Haloperidol (Haldol) 5 Mg Tb, 3 MG PO BID for 30 Days, #60 MG Prov:JOYA PLATT WORKING MANAGER 05/19/25 Benztropine Mesylate (Benztropine Mesylate) 1 Mg Tab, 1 MG PO BID for 30 Days, #60 MG Prov:JOYA PLATT WORKING MANAGER 05/19/25 Trazodone Hcl (Trazodone Hcl) 50 Mg Tab, 75 MG PO HS for 30 Days, #45 MG Prov:JOYA PLATT WORKING MANAGER 05/19/25 Albuterol Sulfate (Albuterol Sulfate Hfa) 108 Mcg/Act Aer, 108 MCG IN Q4HP PRN for 30 Days, #1 AER 2 puffs inhalation Prov:JOYA PLATT WORKING MANAGER 05/13/25 Reported Medications Albuterol Sulfate (Albuterol Sulfate (5 mg/ml) 0.5%) 1 Neb Neb, 1 NEB IN, INH 10/19/24 Current Medications Current Medications Medications (Trade) Dose Ordered Sig/Elaine Route PRN Reason Start Time Stop Time Status Last Admin Trazodone HCl (Desyrel) 75 mg HS PO 07/01/25 22:00 Guaifenesin/ Codeine Phosphate (Robitussin/ Codeine Liq) 10 ml Q4HPRN PRN PO FOR COUGH 07/01/25 13:30 Alprazolam (Xanax Tablet) 1 mg BID PO 07/01/25 22:00 07/02/25 09:22 Vital Signs Vital Signs Date Time Temp Pulse Resp B/P (MAP) Pulse Ox O2 Delivery O2 Flow Rate FiO2 07/02/25 10:14 97 Nasal Cannula 2.0 07/02/25 10:14 28 07/02/25 10:10 78 17 07/02/25 09:00 98.5 124/72 (89) 98.5 Physical Exam Gen.: Patient lying in bed in no apparent distress. On supplemental oxygen. Head: Normocephalic, atraumatic. Eyes: EOMI/PERRLA. Ears: Normal hearing. Normal anatomy. Neck/trachea: Trachea midline, supple. Nose: Normal external anatomy. Mouth: Moist mucous membranes. Chest: Decreased air entry bilaterally. No wheezing or rhonchi. Cardiovascular: Positive S1, positive S2. Regular rate and rhythm. Abdomen: Positive bowel sounds in all 4 quadrants. Soft, non-tender, non- distended. : Deferred. Rectal: Deferred. Skin: Warm, dry. Intact. Extremities: 2+ radial pulses bilaterally. No lower extremity edema. Neuro: Awake, alert, oriented x3. No gross motor or sensory deficits. Cranial nerves II through XII intact. Gait not assessed. Labs/Diagnostic Data Labs Test 07/02/25 06:30 06/30/25 22:20 06/30/25 20:31 Range/Units White Blood Count 6.3 # 4.4-10.8 10^3/uL Red Blood Count 4.33 4.0-5.20 10^6/uL Hemoglobin 13.7 12.2-16.2 g/dL Hematocrit 41.7 36.0-46.0 % Mean Corpuscular Volume 96.3 80.0-100.0 fL Mean Corpuscular Hemoglobin 31.6 28.0-32.0 pg Mean Corpuscular Hemoglobin Concent 32.8 32.0-36.0 g/dL Red Cell Distribution Width 15.3 H 11.8-14.3 % Platelet Count 208 140-450 10^3/uL Mean Platelet Volume 8.1 6.9-10.8 fL Neutrophils (%) (Auto) 66.9 37.0-80.0 % Lymphocytes (%) (Auto) 22.2 10.0-50.0 % Monocytes (%) (Auto) 10.6 0.0-12.0 % Eosinophils (%) (Auto) 0.3 0.0-7.0 % Basophils (%) (Auto) 0.0 0.0-2.0 % Neutrophils # (Auto) 4.2 1.6-8.6 10 ^3/uL Lymphocytes # (Auto) 1.4 0.4-5.4 10 ^3/uL Monocytes # (Auto) 0.7 0-1.3 10 ^3/uL Eosinophils # (Auto) 0 0-0.8 10 ^3/uL Basophils # (Auto) 0 0-0.2 10 ^3/uL Nucleated Red Blood Cells 0.1 % Sodium Level 143 # 136-145 mmol/L Potassium Level 4.3 3.5-5.1 mmol/L Chloride Level 97 L 98-107 mmol/L Carbon Dioxide Level > 40 *H 20-31 mmol/L Anion Gap 5.16656 5-15 Blood Urea Nitrogen 8 L 9-23 mg/dL Creatinine 0.44 L 0.550-1.02 mg/dL Glomerular Filtration Rate Calc 113 >90 mL/min BUN/Creatinine Ratio 18.2 10.0-20.0 Serum Glucose 64 L 74-106 mg/dL Calcium Level 8.7 8.7-10.4 mg/dL Total Bilirubin 0.3 0.2-1.0 mg/dL Aspartate Amino Transferase (AST) 10 L 13-40 U/L Alanine Aminotransferase (ALT) 15 7-40 U/L Alkaline Phosphatase 52 46-116 U/L Total Protein 4.9 L 5.7-8.2 g/dL Albumin 3.4 3.2-4.8 g/dL Troponin I High Sensitivity < 3 L </=34 ng/L B-Type Natriuretic Peptide 19.94 0-100 pg/mL Magnesium Level 2.2 1.6-2.6 mg/dL Assessment Impression: Acute hypoxic respiratory failure Dependence on supplemental oxygen Chronic obstructive pulmonary disease, stable. Atelectasis Bipolar disorder Hx of nicotine dependence Cachexia, BMI 14.9 Plan: Supplemental oxygen Titrate to keep O2 sats above 92%. Currently on 2 LPM NC Taper O2 as tolerated. Continue bronchodilators. Pulmicort BID Antibiotics Steroids - PO prednisone Incentive spirometry due to atelectasis. Antitussive for cough Monitor renal function. Monitor electrolytes. Supplement as necessary. Monitor ins and outs. DVT prophylaxis. Prognosis: Poor given patient's multiple co-morbidities. Rest of plan per hospitalist and other consultants. Thank you, Dr. Fernandez, for allowing me to participate in this patient's care. Further recommendations will depend on the patient's clinical course. Please do not hesitate to contact me if you have any questions or concerns. This medical document was created using an electronic medical record system with [employer] dictation system. Although these documentations are being carefully reviewed, there may still be some phonetic and typographical changes. The errors are purely typographical, due to imperfection on the software program, and do not reflect any compromise in the patient's medical care. Plan discussed with: Patient, Other (SIL [place]/Dr. Fernandez) Visit Coding Pulmonary Billing Provider: BRITANY MEDRANO MD Date of Service if different f: Jul 02, 2025 Common Visit Codes: 60935-PWASQSL INP/OBS CARE (HIGH) RBITANY MEDRANO MD Jul 02, 2025 10:28
--- NOTE | 2025-07-02 21:11 | DVHPN2 ---
Progress Note Date Seen: Jul 02, 2025 Medical Necessity Reason Pt with a Central, PICC or Fol: No Subjective Review of Systems: HEENT:Normal, CVS:Normal, RESPIRATORY:Normal Objective vital signs Vital Sign Date Time Temp Pulse Resp B/P (MAP) Pulse Ox O2 Delivery O2 Flow Rate FiO2 07/02/25 21:00 97.9 118 19 120/69 (86) 90 97.9 07/02/25 18:15 Nasal Cannula 2.0 07/02/25 18:15 28 Total Intake and Output 07/01/25 07/01/25 07/02/25 15:00 23:00 07:00 Intake Total 300 ml 800 ml Balance 300 ml 800 ml medications Current Medications Medications Dose Ordered Sig/Elaine Route Start Time Stop Time Status Last Admin Dose Admin Enoxaparin Sodium 40 mg DAILY SC 07/01/25 10:00 07/02/25 09:11 40 MG Nitroglycerin 0.4 mg Q5MINP PRN SL 07/01/25 00:00 Morphine Sulfate 2 mg Q30M PRN IV 07/01/25 00:00 Acetaminophen/ Hydrocodone Bitart 1 tab Q4HP PRN PO 07/01/25 01:30 Temazepam 15 mg QHSP PRN PO 07/01/25 01:30 Ondansetron HCl 4 mg Q4HP PRN IV 07/01/25 01:30 Docusate Sodium 100 mg BIDPRN PRN PO 07/01/25 01:30 Acetaminophen 650 mg Q6HP PRN PO 07/01/25 01:30 07/02/25 15:26 650 MG Morphine Sulfate 2 mg Q4HPRN PRN IV 07/01/25 01:30 Azithromycin 250 ml @ 125 mls/hr DAILY IV 07/01/25 10:00 Budesonide 0.5 mg BID NEB 07/01/25 10:00 07/02/25 10:10 0.5 MG Albuterol 2.5 mg Q4HR NEB 07/01/25 02:00 07/02/25 18:14 2.5 MG Guaifenesin/ Dextromethorphan 10 ml Q4HP PRN PO 07/01/25 01:30 07/02/25 08:09 10 ML Dicyclomine HCl 10 mg Q6HPRN PO 07/01/25 06:00 07/01/25 16:58 10 MG Haloperidol 3 mg BID PO 07/01/25 10:00 Loperamide HCl 2 mg Q6HPRN PRN PO 07/01/25 01:30 Trazodone HCl 75 mg HS PO 07/01/25 22:00 Patient Own Medication 1 mg BID PO 07/01/25 10:00 UNV Divalproex Sodium 500 mg BID PO 07/01/25 10:00 07/02/25 09:11 500 MG Patient Own Medication 20 mg DAILY PO 07/01/25 10:00 UNV Prednisone 20 mg DAILY PO 07/01/25 10:00 07/05/25 10:01 07/02/25 09:11 20 MG Benztropine Mesylate 1 mg BID PO 07/01/25 10:00 07/02/25 09:11 1 MG Guaifenesin/ Codeine Phosphate 10 ml Q4HPRN PRN PO 07/01/25 13:30 Alprazolam 1 mg BID PO 07/01/25 22:00 07/02/25 09:22 1 MG Examination: GENERAL:Normal, HEENT:Normal, NECK:Normal, LUNGS:Normal, CVS:Normal, ABDOMEN:Normal, MSK:Normal laboratory and microbiology Laboratory Tests 07/02/25 06:30 Test 07/02/25 06:30 Range/Units Serum Glucose 64 L 74-106 mg/dL Microbiology Date/Time Source Procedure Growth Status 07/01/25 19:00 Nose MRSA Screen - Final Complete Labs and/or images reviewed: Labs reviewed by me, Image(s) reviewed by me Problem List/Assessment/Plan Problem List/Assessment/Plan COPD exacerbation acute on chronic hypoxic resp failure anxiety bipolar protein-calorie malnutrition weight loss weakness rule out PNA, no PNA metabolic alkalosis Plan discussed with: Patient My Orders My Orders Orders - ADAM SU DO Procedure Category Date Status Time *Consult CONS 07/02/25 Transmitted 08:54 ADAM SU DO Jul 02, 2025 21:11
[2025-07-03] VITALS (14 sets, daily range): BP systolic 11–125; BP diastolic 56–80; PULSE 53–100; RESP 16–20; TEMP 36.8; O2SAT 90–100
--- NOTE | 2025-07-03 09:04 | DVHDS2 ---
Discharge Summary Date of Admission Jun 30, 2025 at 23:49 Date of Discharge: Jul 03, 2025 Labs/Diagnostic Data: Laboratory Results Test 07/02/25 06:30 06/30/25 22:20 06/30/25 20:31 White Blood Count 6.3 10^3/uL (4.4-10.8) Red Blood Count 4.33 10^6/uL (4.0-5.20) Hemoglobin 13.7 g/dL (12.2-16.2) Hematocrit 41.7 % (36.0-46.0) Mean Corpuscular Volume 96.3 fL (80.0-100.0) Mean Corpuscular Hemoglobin 31.6 pg (28.0-32.0) Mean Corpuscular Hemoglobin Concent 32.8 g/dL (32.0-36.0) Red Cell Distribution Width 15.3 % (11.8-14.3) Platelet Count 208 10^3/uL (140-450) Mean Platelet Volume 8.1 fL (6.9-10.8) Neutrophils (%) (Auto) 66.9 % (37.0-80.0) Lymphocytes (%) (Auto) 22.2 % (10.0-50.0) Monocytes (%) (Auto) 10.6 % (0.0-12.0) Eosinophils (%) (Auto) 0.3 % (0.0-7.0) Basophils (%) (Auto) 0.0 % (0.0-2.0) Neutrophils # (Auto) 4.2 10 ^3/uL (1.6-8.6) Lymphocytes # (Auto) 1.4 10 ^3/uL (0.4-5.4) Monocytes # (Auto) 0.7 10 ^3/uL (0-1.3) Eosinophils # (Auto) 0 10 ^3/uL (0-0.8) Basophils # (Auto) 0 10 ^3/uL (0-0.2) Nucleated Red Blood Cells 0.1 % Sodium Level 143 mmol/L (136-145) Potassium Level 4.3 mmol/L (3.5-5.1) Chloride Level 97 mmol/L (98-107) Carbon Dioxide Level > 40 mmol/L (20-31) Anion Gap 5.27951 (5-15) Blood Urea Nitrogen 8 mg/dL (9-23) Creatinine 0.44 mg/dL (0.550-1.02) Glomerular Filtration Rate Calc 113 mL/min (>90) BUN/Creatinine Ratio 18.2 (10.0-20.0) Serum Glucose 64 mg/dL (74-106) Calcium Level 8.7 mg/dL (8.7-10.4) Total Bilirubin 0.3 mg/dL (0.2-1.0) Aspartate Amino Transferase (AST) 10 U/L (13-40) Alanine Aminotransferase (ALT) 15 U/L (7-40) Alkaline Phosphatase 52 U/L (46-116) Total Protein 4.9 g/dL (5.7-8.2) Albumin 3.4 g/dL (3.2-4.8) Troponin I High Sensitivity < 3 ng/L (</=34) B-Type Natriuretic Peptide 19.94 pg/mL (0-100) Magnesium Level 2.2 mg/dL (1.6-2.6) Other Laboratory Tests 07/02/25 06:30 Discharge Disposition: Foster Care Discharge Instruct/Medications Diet: Cardiac 2g Na,low cholest Activity: No Restrictions, As Tolerated Scheduled Benztropine Mesylate (Benztropine Mesylate), 1 MG PO BID Dicyclomine Hcl (Bentyl Capsule), 1 CAP PO Q6HPRN Divalproex Sodium (Divalproex Sodium), 500 MG PO BID Haloperidol (Haldol), 3 MG PO BID Levofloxacin Hemihydrate (Levaquin 500 Mg), 1 TAB PO DAILY Prednisone (Prednisone), 20 MG PO DAILY Tiotropium [place] Monohydrate (Spiriva Respimat), 2.5 MCG IN DAILY Trazodone Hcl (Trazodone Hcl), 75 MG PO HS Scheduled PRN Albuterol Sulfate (Albuterol Sulfate Hfa), 108 MCG IN Q4HP PRN Loperamide Hcl (Imodium), 2 MG PO Q6HPRN PRN Miscellaneous Medications Albuterol Sulfate (Albuterol Sulfate (5 mg/ml) 0.5%), 1 NEB IN, (Reported) Discontinued Medications Albuterol Sulfate (Albuterol Sulfate Hfa), 108 MCG IN Q4HPRN PRN Doxycycline (Monohydrate) (Doxycycline), 100 MG PO BID Methylprednisolone (Medrol Dosepak), 4 MG PO UD Discharge Statement: "Patient was advised to return to the ER or call 911 if any headaches, dizziness, shortness of breath, chest pain, abdominal pain, bleeding, fevers, or worsening of medical condition. Patient was counseled about treatment plan, medications, possible side effects, patientverbalized understanding. All questions were answered to the best of my ability. This discharge took greater then 30 minutes in planning, reviewing documentation, counseling the patient, and discussing with other team members." ASSESSMENT ASSESSMENT Assessment ADAM SU DO Jul 03, 2025 09:04
[2025-07-03] MEDS: acetaZOLAMIDE SODIUM 500 MG VL IV ONE (09:44)
--- NOTE | 2025-07-03 15:31 | DVHPN2 ---
Progress Note - Dictate Date Seen: Jul 03, 2025 Medical Necessity Reason Pt with a Central, PICC or Fol: No vital signs Vital Sign Date Time Temp Pulse Resp B/P (MAP) Pulse Ox O2 Delivery O2 Flow Rate FiO2 07/03/25 14:32 86 16 100 07/03/25 14:26 Nasal Cannula* 2 28 07/03/25 12:53 98.4 116/75 (89) 98.4 Total Intake and Output 07/02/25 07/02/25 07/03/25 15:00 23:00 07:00 Intake Total 298 ml 856 ml 450 ml Output Total 400 ml 400 ml Balance 298 ml 456 ml 50 ml medications Current Medications Medications Dose Ordered Sig/Elaine Route Start Time Stop Time Status Last Admin Dose Admin Enoxaparin Sodium 40 mg DAILY SC 07/01/25 10:00 07/02/25 09:11 40 MG Nitroglycerin 0.4 mg Q5MINP PRN SL 07/01/25 00:00 Morphine Sulfate 2 mg Q30M PRN IV 07/01/25 00:00 Acetaminophen/ Hydrocodone Bitart 1 tab Q4HP PRN PO 07/01/25 01:30 Temazepam 15 mg QHSP PRN PO 07/01/25 01:30 Ondansetron HCl 4 mg Q4HP PRN IV 07/01/25 01:30 Docusate Sodium 100 mg BIDPRN PRN PO 07/01/25 01:30 Acetaminophen 650 mg Q6HP PRN PO 07/01/25 01:30 07/03/25 06:03 650 MG Morphine Sulfate 2 mg Q4HPRN PRN IV 07/01/25 01:30 Azithromycin 250 ml @ 125 mls/hr DAILY IV 07/01/25 10:00 Budesonide 0.5 mg BID NEB 07/01/25 10:00 07/03/25 06:54 0.5 MG Albuterol 2.5 mg Q4HR NEB 07/01/25 02:00 07/03/25 14:26 2.5 MG Guaifenesin/ Dextromethorphan 10 ml Q4HP PRN PO 07/01/25 01:30 07/02/25 08:09 10 ML Dicyclomine HCl 10 mg Q6HPRN PO 07/01/25 06:00 07/01/25 16:58 10 MG Haloperidol 3 mg BID PO 07/01/25 10:00 Loperamide HCl 2 mg Q6HPRN PRN PO 07/01/25 01:30 Trazodone HCl 75 mg HS PO 07/01/25 22:00 Patient Own Medication 1 mg BID PO 07/01/25 10:00 UNV Divalproex Sodium 500 mg BID PO 07/01/25 10:00 07/02/25 09:11 500 MG Patient Own Medication 20 mg DAILY PO 07/01/25 10:00 UNV Prednisone 20 mg DAILY PO 07/01/25 10:00 07/05/25 10:01 07/02/25 09:11 20 MG Benztropine Mesylate 1 mg BID PO 07/01/25 10:00 07/02/25 09:11 1 MG Guaifenesin/ Codeine Phosphate 10 ml Q4HPRN PRN PO 07/01/25 13:30 Alprazolam 1 mg BID PO 07/01/25 22:00 07/02/25 09:22 1 MG laboratory and microbiology Laboratory Tests 07/02/25 06:30 Test 07/02/25 06:30 Range/Units Serum Glucose 64 L 74-106 mg/dL Assessment/Plan Impression Acute hypoxemic respiratory failure Acute COPD exacerbation Emphysema Former smoker Patient seen and examined Events Low oxygen requirements On 2 liters nasal cannula No acute events Labs and imaging reviewed Management Supplemental oxygen Titrate to maintain sats 90% or above Incentive spirometry Continue antibiotics F/u cultures Bronchodilators Steroids for COPD management Monitor renal function Monitor electrolytes Supplement as needed DVT prophylaxis Plan discussed with: Patient MARGUERITE MCCORMICK MD Jul 03, 2025 15:31
[2025-07-04] MEDS ORDERED: ALBU108A5 IN (00:48)
[2025-07-04] MEDS ORDERED: PRED20TA2 PO (00:48)
[2025-07-04] MEDS ORDERED: AZIT500T66 PO (00:48)
== END 2025-07-03 21:07 | disposition home or self-care (01) | DRG 140 ==
LOC: EDBD 20:06 → ER 20:06 → EDUNIT# 20:06 → OVERFLOW 23:49 → WEST WING 07-01 15:15
PROVIDERS: ADMIT Internal Medicine; ATTEND Internal Medicine
DX: J44.1 Chronic obstructive pulmonary disease with (acute) exacerbation (principal); J96.21 Acute and chronic respiratory failure with hypoxia; E43 Unspecified severe protein-calorie malnutrition; R64 Cachexia; Z99.81 Dependence on supplemental oxygen; K21.9 Gastro-esophageal reflux disease without esophagitis; K80.20 Calculus of gallbladder without cholecystitis without obstruction; F17.200 Nicotine dependence, unspecified, uncomplicated; F20.0 Paranoid schizophrenia; J43.9 Emphysema, unspecified; I10 Essential (primary) hypertension; Z68.1 Body mass index [BMI] 19.9 or less, adult; Z79.899 Other long term (current) drug therapy; Z71.6 Tobacco abuse counseling; Z81.8 Family history of other mental and behavioral disorders; Z82.5 Family history of asthma and other chronic lower respiratory diseases; Z91.199 Patient's noncompliance with other medical treatment and regimen due to unspecified reason
CPT/HCPCS: 36415; 71045; 80053; 85025; 87081; 94640; G0378

== ENCOUNTER 2025-07-03 23:11 | Emergency (ER) | payer OTHER ==
[2025-07-03] MEDS ORDERED: predniSONE 20 MG TAB PO ONE (23:30)
--- NOTE | 2025-07-03 23:40 | ED.PDOC ---
SOB-HPI HPI Comments 55-year-old female who came to ER by EMS for shortness of breath. Patient known cigarette smoker, history of COPD. Seen here multiple times for COPD exacerbation. Was just discharged a few hours ago this institution for COPD exacerbation. [facility] was [facility], she smoked a cigarette and she developed sudden onset shortness of breath and wheezing. Patient is saturating at 57% room air on scene, was given breathing treatment x2, and was transferred to this institution. 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 Hx Family History Family History: Reviewed,noncontributory to illness Social History Smoker: Quit Less Than 1 Year, Cigarettes Alcohol: Denies ETOH Use Drugs: Denies Drug Use Lives In: Assisted Care Constitutional: denies: chills, diaphoresis, fatigue, fever, malaise, sweats, weakness, others EENTM: denies: blurred vision, double vision, ear bleeding, ear discharge, ear drainage, ear pain, ear ringing, eye pain, eye redness, hearing loss, mouth pain, mouth swelling, nasal discharge, nose bleeding, nose congestion, nose pain, photophobia, tearing, throat pain, throat swelling, voice changes, others Respiratory: reports: cough, SOB at rest, shortness of breath, wheezing; denies: hemoptysis, orthopnea, SOB with excertion, stridor, others Cardiovascular: denies: chest pain, dizzy spells, diaphoresis, Dyspnea on exertion, edema, irregular heart beat, left arm pain, lightheadedness, palpitations, PND, syncope, others Gastrointestinal: denies: abdomen distended, abdominal pain, blood streaked bowels, constipated, diarrhea, dysphagia, difficulty swallowing, hematemesis, melena, nausea, poor appetite, poor fluid intake, rectal bleeding, rectal pain, vomiting, others Genitourinary: denies: abnormal vagina bleeding, burning, dyspareunia, dysuria, flank pain, frequency, hematuria, incontinence, pain, , vagina discharge, urgency, others Neurological: denies: dizziness, fainting, headache, left sided numbness, left sided weakness, numbness, paresthesia, pre-existing deficit, right sided numbness, right sided weakness, seizure, speech problems, tingling, tremors, weakness, others Musculoskeletal: denies: back pain, gout, joint pain, joint swelling, muscle pain, muscle stiffness, neck pain, others Integumetry: denies: bruises, change in color, change in hair/nails, dryness, laceration, lesions, lumps, rash, wounds, others Allergic/Immunocompromised: denies: Difficulty Healing, Frequent Infections, Hives, Itching, others Hematologic/Lymphatic: denies: anemia, blood clots, easy bleeding, easy bruising, swollen glands, others Endocrine: denies: excessive hunger, excessive sweating, excessive thirst, excessive urination, flushing, intolerance to cold, intolerance to heat, unexplained weight gain, unexplained weight loss, others Psychiatric: denies: anxiety, bipolar disorder, depression, hopeless, panic disorder, schizophrenia, sleepless, suicidal, others Physical Exam General Appearance: No Apparent Distress, Normal HEENT: Normal ENT Inspection, Pharynx Normal, TMs Normal Neck: Full Range of Motion, Non-Tender, Normal, Normal Inspection Respiratory: Chest Non-Tender, No Accessory Muscle Use, Wheezing Cardiovascular: No Edema, No JVD, No Murmur, No Gallop, Normal Peripheral Pulses, Regular Rate/Rhythm Breast Exam: Deferred Gastrointestinal: No Organomegaly, Non Tender, No Pulsatile Mass, Normal Bowel Sounds, Soft Genitalia: Deferred Pelvic: Deferred Rectal: Deferred Extremities: No calf tenderness, Normal capillary refill, Normal inspection, Normal range of motion, Non-tender, No pedal edema Musculoskeletal : Apperance: Normal Neurologic: Alert, supervisor crack off II-XII 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 Was a procedure done?: No Differential Dx Differential Diagnosis: Asthma, Bronchitis, CHF, COPD, Pneumonia, Respiratory Distress X-Ray, Labs, Meds, VS Vital Signs Date Time Temp Pulse Resp B/P (MAP) Pulse Ox O2 Delivery O2 Flow Rate FiO2 07/04/25 00:07 16 97 Nasal Cannula* 2 28 Lab Test 07/04/25 00:36 07/04/25 00:00 07/03/25 23:40 07/03/25 23:04 Range/Units Troponin I High Sensitivity 3 L 3 L </=34 ng/L Blood Gas Specimen Type Venous Blood Gas Sample Site Vbg - n/a Blood Gas Patient Temperature 37.0 Arterial Blood Date Drawn [id number] Clay Test N/a Venous Blood pH 7.331 7.320-7.430 Venous Blood pCO2 at Patient Temp 87.2 *H 38.0-54.0 mmHg Venous Blood pO2 at Patient Temp 37.6 23.0-48.0 mmHg Venous Blood HCO3 45.0 H 22.0-29.0 mmol/L Venous Blood Base Excess 14.4 H -2.0-3.0 mmol/L Blood Gas Liter Flow 2.00 Blood Gas Modality Nasal cannula FiO2 % 28.0 Blood Gas Critical Value Read Back Yes Blood Gas Notified Whom nyasia Cintron Blood Gas Notified Time [id number] Blood Gas Notified By Sabine oneil rrt White Blood Count 12.0 #H 4.4-10.8 10^3/uL Red Blood Count 4.68 4.0-5.20 10^6/uL Hemoglobin 14.9 12.2-16.2 g/dL Hematocrit 45.6 36.0-46.0 % Mean Corpuscular Volume 97.5 80.0-100.0 fL Mean Corpuscular Hemoglobin 31.8 28.0-32.0 pg Mean Corpuscular Hemoglobin Concent 32.6 32.0-36.0 g/dL Red Cell Distribution Width 15.8 H 11.8-14.3 % Platelet Count 220 140-450 10^3/uL Mean Platelet Volume 8.4 6.9-10.8 fL Neutrophils (%) (Auto) 75.9 37.0-80.0 % Lymphocytes (%) (Auto) 16.6 10.0-50.0 % Monocytes (%) (Auto) 6.3 0.0-12.0 % Eosinophils (%) (Auto) 0.9 0.0-7.0 % Basophils (%) (Auto) 0.3 0.0-2.0 % Neutrophils # (Auto) 9.1 H 1.6-8.6 10 ^3/uL Lymphocytes # (Auto) 2.0 0.4-5.4 10 ^3/uL Monocytes # (Auto) 0.8 0-1.3 10 ^3/uL Eosinophils # (Auto) 0.1 0-0.8 10 ^3/uL Basophils # (Auto) 0 0-0.2 10 ^3/uL Nucleated Red Blood Cells 0.1 % Sodium Level 139 136-145 mmol/L Potassium Level 4.9 3.5-5.1 mmol/L Chloride Level 94 L 98-107 mmol/L Carbon Dioxide Level 39 H 20-31 mmol/L Anion Gap 6 5-15 Blood Urea Nitrogen 10 9-23 mg/dL Creatinine 0.52 L 0.550-1.02 mg/dL Glomerular Filtration Rate Calc 109 >90 mL/min BUN/Creatinine Ratio 19.2 10.0-20.0 Serum Glucose 134 H 74-106 mg/dL Calcium Level 9.3 8.7-10.4 mg/dL Magnesium Level 2.0 1.6-2.6 mg/dL Total Bilirubin 0.4 0.2-1.0 mg/dL Aspartate Amino Transferase (AST) 16 13-40 U/L Alanine Aminotransferase (ALT) 22 7-40 U/L Alkaline Phosphatase 64 46-116 U/L B-Type Natriuretic Peptide 10.38 0-100 pg/mL Total Protein 5.8 5.7-8.2 g/dL Albumin 4.0 3.2-4.8 g/dL Current Medications Medications (Trade) Dose Ordered Sig/Elaine Route Start Time Stop Time Status Last Admin Albuterol (Ventolin Medneb) 5 mg ONCE ONCE NEB 07/03/25 23:30 07/03/25 23:31 DC 07/04/25 00:06 CHEST RADIOGRAPH Indication: SOB Technique: Single frontal view of the chest was obtained COMPARISON: XY CHEST XRAY 1 VIEW on DOS: 06/30/25, XY CHEST PORTABLE on DOS: 06/27/25, XY CHEST PORTABLE on DOS: 06/23/25, XY CHEST PORTABLE on DOS: 06/19/25, XY CHEST PORTABLE on DOS: 05/14/25 FINDINGS: Lungs and pleural spaces are clear. Cardiac silhouette and giorgio are within norm al limits. Bones and soft tissues demonstrate no significant abnormality. IMPRESSION: No acute disease. Time of 1ST Reevaluation: 23:34 Reevaluation 1ST: Unchanged Patient Education/Counseling: Diagnosis, Treatment Family Education/Counseling: No Family Present SEPSIS Sepsis Screen Physician Orders Chest Portable (07/03/25 23:24) Venous Blood Gas (07/03/25 23:24) Vital Signs Date Time Temp Pulse Resp B/P (MAP) Pulse Ox O2 Delivery O2 Flow Rate FiO2 07/04/25 00:07 16 97 Nasal Cannula* 2 28 Laboratory Tests Test 07/03/25 23:04 White Blood Count 12.0 10^3/uL (4.4-10.8) #H Medications Medications Dose Ordered Sig/Elaine Route Start Time Stop Time Status Last Admin Dose Admin Albuterol 5 mg ONCE ONCE NEB 07/03/25 23:30 07/03/25 23:31 DC 07/04/25 00:06 Departure 1 Departure Time of Disposition: 01:30 Impression: Primary Impression: COPD (chronic obstructive pulmonary disease) Additional Impression: Schizophrenia Disposition: 01 HOME / SELF CARE / HOMELESS Condition: Stable e-Prescriptions Azithromycin (Azithromycin) 500 Mg Tab 1 TAB PO DAILY for 3 Days, #3 TAB Prov: MANDY OJEDA MD 07/04/25 Prednisone (Prednisone) 20 Mg Tab 20 MG PO BID for 5 Days, #10 TAB Prov: MANDY OJEDA MD 07/04/25 Albuterol Sulfate (Albuterol Sulfate Hfa) 108 Mcg/Act Aer 108 MCG IN Q6HP PRN, #1 AER Prov: MANDY OJEDA MD 07/04/25 Discharged With: Self Critical Care Note Critical Care Time?: Yes (35 min-critical care time only) Critical care comment: Shortness of breath Stability Stability form required: No Heart Score Heart Score: Heart Score Response (Comments) Value History Slightly Suspicious 0 EKG Normal 0 Age 45-64 1 Risk Factors 1 or 2 risk factors 1 Troponin Normal limit 0 Total 2 I personally scribed for MANDY OJEDA MD ([email or web address]) on 07/03/25 at 23:40. Electronically submitted by Evelio Caceres ([email or web address]). I personally scribed for MANDY OJEDA MD ([email or web address]) on 07/04/25 at 00:28. Electronically submitted by Evelio Caceres ([email or web address]). MANDY OJEDA MD Jul 03, 2025 23:40
[2025-07-03 23:54] LABS: Hematocrit 45.6 % (36.0-46.0); Hemoglobin 14.9 g/dL (12.2-16.2); Mean Corpuscular Hemoglobin 31.8 pg (28.0-32.0); Mean Corpuscular Volume 97.5 fL (80.0-100.0); Nucleated Red Blood Cells % 0.1 %
--- NOTE | 2025-07-04 00:02 | DVH ---
CHEST RADIOGRAPH Indication: SOB Technique: Single frontal view of the chest was obtained COMPARISON: XY CHEST XRAY 1 VIEW on DOS: 06/30/25, XY CHEST PORTABLE on DOS: 06/27/25, XY CHEST RODY BLE on DOS: 06/23/25, XY CHEST PORTABLE on DOS: 06/19/25, XY CHEST PORTABLE on DOS: 05/14/25 FINDINGS: Lungs and pleural spaces are clear. Cardiac silhouette and giorgio are within normal limits. Bones and s oft tissues demonstrate no significant abnormality. IMPRESSION: No acute disease.
[2025-07-04] MEDS: ALBUTEROL SULF 2.5 MG/0.5ML(0.5%) NEB SOLN NEB ONE (00:06)
[2025-07-04 00:07] VITALS: RESP 16; O2SAT 97
[2025-07-04 00:09] LABS: Alanine Aminotransferase 22 U/L (7-40); Albumin 4.0 g/dL (3.2-4.8); Alkaline Phosphatase 64 U/L (46-116); Anion Gap 6 (5-15); BUN/Creatinine Ratio 19.2 (10.0-20.0); Blood Urea Nitrogen 10 mg/dL (9-23); Calcium 9.3 mg/dL (8.7-10.4); Magnesium 2.0 mg/dL (1.6-2.6); Potassium 4.9 mmol/L (3.5-5.1); Sodium 139 mmol/L (136-145); Total Protein 5.8 g/dL (5.7-8.2)
[2025-07-04 00:10] LABS: Bilirubin, Total 0.4 mg/dL (0.2-1.0)
[2025-07-04 00:13] LABS: Carbon Dioxide 39 mmol/L (20-31); Chloride 94 mmol/L (98-107); Glucose 134 mg/dL (74-106)
[2025-07-04] MEDS ORDERED: ALBU108A5 IN (00:48)
[2025-07-04] MEDS ORDERED: AZIT500T66 PO (00:48)
[2025-07-04] MEDS ORDERED: PRED20TA2 PO (00:48)
== END 2025-07-04 01:39 | disposition home or self-care (01) ==
LOC: EDUNIT# 23:11 → ER 23:11 → EDBD 23:11 → ER 07-04 01:39
DX: R06.02 Shortness of breath (principal); J44.9 Chronic obstructive pulmonary disease, unspecified; F20.9 Schizophrenia, unspecified; I10 Essential (primary) hypertension; F31.9 Bipolar disorder, unspecified; Z87.440 Personal history of urinary (tract) infections
CPT/HCPCS: 36415; 36600; 71045; 80053; 82805; 83735; 83880; 84484; 85025; 94640

== ENCOUNTER 2025-07-08 17:52 | Emergency (ER) | payer OTHER ==
[~2025-07-08] VITALS: Ht 167.6 cm; Wt 54.5 kg
[~2025-07-08 17:52] MED LIST changes: +AZIT500T66 PO
[2025-07-08] MEDS: KETOROLAC TROMETH 60MG/2ML VIAL IM ONE (18:57)
--- NOTE | 2025-07-08 19:14 | DVH ---
EXAM: XY L ANKLE 3 VIEW CLINICAL INDICATION: Trauma/pain TECHNIQUE: XY L ANKLE 3 VIEW Comparison: None FINDINGS/IMPRESSION: There is no evidence of acute fracture or dislocation. The visualized joint space is well maintained. The alignment is anatomical. There is no radiopaque foreign body.
[2025-07-08] MEDS ORDERED: IBUP-1454 PO (19:35)
[2025-07-08] MEDS ORDERED: CEPH250C PO (19:35)
--- NOTE | 2025-07-08 19:36 | ED.PDOC ---
Musculoskeletal HPI Comments This patient is a 55-year-old female who is well known to this entire facility due to extensive visits for general complaints and a significant psych history arrives today via EMS with a complaint of left ankle pain concerns. Patient does not know of a specific event related to the left ankle pain concerns. Additionally, patient thinks she has been bitten by a snake of the left ankle as well. Initial evaluation was unremarkable for significant left ankle concerns. Chief Complaint: Lower Extremity Time Seen by MD: 18:00 Primary Care Provider: UNKNOWN Reviewed Notes: Nurses Notes, Critical Care Nurse Practitioner Notes Allergies: Coded Allergies: Lactose (Verified Allergy, Severe, 11/15/24) Home Meds Active Scripts Azithromycin (Azithromycin) 500 Mg Tab, 1 TAB PO DAILY for 3 Days, #3 TAB Prov:MANDY OJEDA MD 07/04/25 Prednisone (Prednisone) 20 Mg Tab, 20 MG PO BID for 5 Days, #10 TAB Prov:MANDY OJEDA MD 07/04/25 Albuterol Sulfate (Albuterol Sulfate Hfa) 108 Mcg/Act Aer, 108 MCG IN Q6HP PRN, #1 AER Prov:MANDY OJEDA MD 07/04/25 Prednisone (Prednisone) 20 Mg Tab, 20 MG PO DAILY for 5 Days, #5 MG Prov:JOYA PLATT SECURITY SERVICES MANAGER 06/29/25 Levofloxacin Hemihydrate (LEVAQUIN 500 MG) 500 Mg Tab, 1 TAB PO DAILY, #7 TAB Prov:JOYA PLATT NP 06/29/25 Dicyclomine Hcl (BENTYL CAPSULE) 10 Mg Cp, 1 CAP PO Q6HPRN, #20 CAP 0 Refills Prov:MAMI ESTRADA PAC 06/24/25 Loperamide Hcl (Imodium) 2 Mg Cp, 2 MG PO Q6HPRN PRN for 30 Days, #10 CAP Prov:JOYA PLATT NP 06/22/25 Tiotropium [place] Monohydrate (Spiriva Respimat) 2.5 Mcg/Act Spr, 2.5 MCG IN DAILY for 30 Days, #10 SPRAY 3 Refills 2 puffs daily Prov:JOYA PLATT NP 06/22/25 Divalproex Sodium (Divalproex Sodium) 500 Mg Tab, 500 MG PO BID for 30 Days, #60 MG Prov:JOYA PLATT NP 05/19/25 Haloperidol (Haldol) 5 Mg Tb, 3 MG PO BID for 30 Days, #60 MG Prov:JOYA PLATT SECURITY SERVICES MANAGER 05/19/25 Benztropine Mesylate (Benztropine Mesylate) 1 Mg Tab, 1 MG PO BID for 30 Days, #60 MG Prov:JOYA PLATT SECURITY SERVICES MANAGER 05/19/25 Trazodone Hcl (Trazodone Hcl) 50 Mg Tab, 75 MG PO HS for 30 Days, #45 MG Prov:JOYA PLATT SECURITY SERVICES MANAGER 05/19/25 Albuterol Sulfate (Albuterol Sulfate Hfa) 108 Mcg/Act Aer, 108 MCG IN Q4HP PRN for 30 Days, #1 AER 2 puffs inhalation Prov:JOYA PLATT SECURITY SERVICES MANAGER 05/13/25 Reported Medications Albuterol Sulfate (Albuterol Sulfate (5 mg/ml) 0.5%) 1 Neb Neb, 1 NEB IN, INH 10/19/24 Information Source: Patient, Emergency Med Personnel Mode of Arrival: EMS Location: Left Extremity Location: Ankle Timing: Hours Prehospital treatment: None Severity: Mild Able to Move Extremity: Yes Bear Weight: Fully Pain: Mild Hand Dominance: Right Mechanism: Unknown Circumstances: Unknown Onset of Symptoms: Spontaneous Symptoms: Pain DVT Risk Factors: NONE Past Medical History PAST MEDICAL HISTORY: COPD, Gallstones, GERD, HTN, Schizophrenia, UTI'S Surgical History: 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 all surgeries 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 Family History Family History: Reviewed,noncontributory to illness Social History Smoker: Quit Less Than 1 Year, Cigarettes Alcohol: Denies ETOH Use Drugs: Denies Drug Use Lives In: Assisted Care Constitutional: denies: chills, diaphoresis, fatigue, fever, malaise, sweats, weakness, others EENTM: denies: blurred vision, double vision, ear bleeding, ear discharge, ear drainage, ear pain, ear ringing, eye pain, eye redness, hearing loss, mouth pain, mouth swelling, nasal discharge, nose bleeding, nose congestion, nose pain, photophobia, tearing, throat pain, throat swelling, voice changes, others Respiratory: denies: cough, hemoptysis, orthopnea, SOB at rest, shortness of breath, SOB with excertion, stridor, wheezing, others Cardiovascular: denies: chest pain, dizzy spells, diaphoresis, Dyspnea on exertion, edema, irregular heart beat, left arm pain, lightheadedness, pa lpitations, PND, syncope, others Gastrointestinal: denies: abdomen distended, abdominal pain, blood streaked bowels, constipated, diarrhea, dysphagia, difficulty swallowing, hematemesis, melena, nausea, poor appetite, poor fluid intake, rectal bleeding, rectal pain, vomiting, others Genitourinary: denies: abnormal vagina bleeding, burning, dyspareunia, dysuria, flank pain, frequency, hematuria, incontinence, pain, , vagina discharge, urgency, others Neurological: denies: dizziness, fainting, headache, left sided numbness, left sided weakness, numbness, paresthesia, pre-existing deficit, right sided numbness, right sided weakness, seizure, speech problems, tingling, tremors, weakness, others Musculoskeletal: reports: others (Left ankle pain); denies: back pain, gout, nikita int pain, joint swelling, muscle pain, muscle stiffness, neck pain Integumetry: reports: others (Patient states snake bite to left ankle); denies: bruises, change in color, change in hair/nails, dryness, laceration, lesions, lumps, rash, wounds Allergic/Immunocompromised: denies: Difficulty Healing, Frequent Infections, Hives, Itching, others Hematologic/Lymphatic: denies: anemia, blood clots, easy bleeding, easy bruising, swollen glands, others Endocrine: denies: excessive hunger, excessive sweating, excessive thirst, excessive urination, flushing, intolerance to cold, intolerance to heat, unexplained weight gain, unexplained weight loss, others Psychiatric: denies: anxiety, bipolar disorder, depression, hopeless, panic disorder, schizophrenia, sleepless, suicidal, others Physical Exam General Appearance: Mild Distress (Moderate distress due to left ankle concerns), Normal HEENT: Normal ENT Inspection, Pharynx Normal, TMs Normal Neck: Full Range of Motion, Non-Tender, Normal, Normal Inspection Respiratory: Chest Non-Tender, Lungs Clear, No Accessory Muscle Use, No Respiratory Distress, Normal Breath Sounds Cardiovascular: No Edema, No JVD, No Murmur, No Gallop, Normal Peripheral Pulses, Regular Rate/Rhythm Breast Exam: Deferred Gastrointestinal: No Organomegaly, Non Tender, No Pulsatile Mass, Normal Bowel Sounds, Soft Genitalia: Deferred Pelvic: Deferred Rectal: Deferred Extremities: Other (Unremarkable left ankle evaluation. Patient is states reduced range of motion, but no edema, ecchymosis or erythema noted. Patient may have self inflicted a puncture wound to the front of her ankle. No localized erythema or edema.) Neurologic: Alert Cerebellar Function: NOT DONE Reflexes: NOT DONE Skin: Dry, Normal Color, Warm Lymphatic: No Adenopathy Was a procedure done? Was a procedure done?: No Differential Diagnosis EXT Differential Diagnosis: Fracture, Sprain, Dislocation, Contusion, Strain, Other (Skin concerns) X-Ray, Labs, Meds, VS Vital Signs Date Time Temp Pulse Resp B/P (MAP) Pulse Ox O2 Delivery O2 Flow Rate FiO2 07/08/25 17:52 98.7 110 18 104/70 99 98.7 Current Medications Medications (Trade) Dose Ordered Sig/Elaine Route Start Time Stop Time Status Last Admin Ketorolac Tromethamine (Toradol Injection) 30 mg ONCE ONCE IM 07/08/25 18:15 07/08/25 18:16 DC 07/08/25 18:57 X-Ray, Labs, Meds, VS Comment All studies performed the ED were evaluated by me personally. Imaging studies of the left ankle were unremarkable for any acute fractures. Patient will be sent off with a short course of antibiotics to address her soft tissue concerns and possible snake bite issues of the left ankle. Advised pain medication as needed. Time of 1ST Reevaluation: 19:34 Reevaluation 1ST: Improved Consultation: PCP Patient Education/Counseling: Diagnosis, Treatment Family Education/Counseling: Diagnosis, Treatment Sepsis Recent Procedure: No On Antibiotic Therapy: No Respiratory Rate >20: No Heart Rate >90: No Temp<36 C (96.8 F) or >38.3 C: No SBP <90 or MAP <65 mmHG: No New Acute Mental Status Change: No Is the patient on CPAP, BIPAP,: No IV fluid given: No Departure 1 Departure Time of Disposition: 19:34 Impression: Primary Impression: Ankle pain Additional Impression: Skin infection Disposition: 01 HOME / SELF CARE / HOMELESS Condition: Stable Additional Instructions: Advise antibiotics as directed until completion and pain medication as needed. e-Prescriptions Ibuprofen (Ibuprofen) 600 Mg Tab 1 TAB PO Q6HP PRN, #20 TAB Prov: MAMI ESTRADA PAC 07/08/25 Cephalexin (KEFLEX CAPSULE) 250 Mg Cp 1 CAP PO QID for 3 Days, #12 CAP Prov: MMAI ESTRADA PAC 07/08/25 Discharged With: Self Critical Care Note Critical Care Time?: No Stability Stability form required: No Heart Score Heart Score: Heart Score Response (Comments) Value History N/A 0 EKG N/A 0 Age N/A 0 Risk Factors N/A 0 Troponin N/A 0 Total 0 MAMI ESTRADA PAC Jul 08, 2025 19:36
[2025-07-08 22:54] VITALS: BP 123/57; TEMP 97.4
[2025-07-08 23:54] VITALS: PULSE 90; RESP 16; O2SAT 100
[2025-07-09] MEDS: ALBUTEROL SULF 2.5 MG/0.5ML(0.5%) NEB SOLN NEB ONE (05:15)
[2025-07-09] MEDS: IPRATROPIUM BROM 0.5 MG/2.5ML INH SOL NEB ONE (05:15)
== END 2025-07-09 00:56 | disposition home or self-care (01) ==
LOC: EDBD 17:52 → ER 17:52
DX: M25.572 Pain in left ankle and joints of left foot (principal); L08.9 Local infection of the skin and subcutaneous tissue, unspecified; J44.9 Chronic obstructive pulmonary disease, unspecified; I10 Essential (primary) hypertension; Z79.899 Other long term (current) drug therapy
CPT/HCPCS: 73610; 96372; 99283; J1885

== ENCOUNTER 2025-07-11 07:49 | Emergency (ER) | payer OTHER ==
[~2025-07-11] VITALS: Ht 167.6 cm; Wt 50.0 kg
[~2025-07-11 07:49] MED LIST changes: +CEPH250C PO; +IBUP-1454 PO
--- NOTE | 2025-07-11 08:10 | ED.PDOC ---
Musculoskeletal HPI Comments This is a 55 year-old female, with a Hx of Schizophrenia, COPD, HTN, GERD, who presents to the ED via EMS with a chief complaint of back pain and R hip pain. Patient visits the ED frequently, and was last discharged on 07/08/25. Patient reports onset of symptoms began after being discharged on 07/08/25. Patient has no further complaints at this time and otherwise denies any trauma or injury to the area, or further associated symptoms of weakness, fatigue, fever, chills, or N/V/D. Chief Complaint: Lower Extremity Time Seen by MD: 07:52 Primary Care Provider: UNKNOWN Reviewed Notes: Medications, Allergies Allergies: Coded Allergies: Lactose (Verified Allergy, Severe, 11/15/24) Home Meds Active Scripts Ibuprofen (Ibuprofen) 600 Mg Tab, 1 TAB PO Q6HP PRN, #20 TAB Prov:MAMI ESTRADA PAC 07/08/25 Cephalexin (KEFLEX CAPSULE) 250 Mg Cp, 1 CAP PO QID for 3 Days, #12 CAP Prov:MAMI ESTRADA PAC 07/08/25 Azithromycin (Azithromycin) 500 Mg Tab, 1 TAB PO DAILY for 3 Days, #3 TAB Prov:MANDY OJEDA MD 07/04/25 Prednisone (Prednisone) 20 Mg Tab, 20 MG PO BID for 5 Days, #10 TAB Prov:MANDY OJEDA MD 07/04/25 Albuterol Sulfate (Albuterol Sulfate Hfa) 108 Mcg/Act Aer, 108 MCG IN Q6HP PRN, #1 AER Prov:MANDY OJEDA MD 07/04/25 Prednisone (Prednisone) 20 Mg Tab, 20 MG PO DAILY for 5 Days, #5 MG Prov:JOYA PLATT JANITOR CUSTODIAN 06/29/25 Levofloxacin Hemihydrate (LEVAQUIN 500 MG) 500 Mg Tab, 1 TAB PO DAILY, #7 TAB Prov:JOYA PLATT JANITOR CUSTODIAN 06/29/25 Dicyclomine Hcl (BENTYL CAPSULE) 10 Mg Cp, 1 CAP PO Q6HPRN, #20 CAP 0 Refills Prov:MAMI ESTRADA PAC 06/24/25 Loperamide Hcl (Imodium) 2 Mg Cp, 2 MG PO Q6HPRN PRN for 30 Days, #10 CAP Prov:JOYA PLATT NP 06/22/25 Tiotropium [place] Monohydrate (Spiriva Respimat) 2.5 Mcg/Act Spr, 2.5 MCG IN DAILY for 30 Days, #10 SPRAY 3 Refills 2 puffs daily Prov:JOYA PLATT JANITOR CUSTODIAN 06/22/25 Divalproex Sodium (Divalproex Sodium) 500 Mg Tab, 500 MG PO BID for 30 Days, #60 MG Prov:JOYA PLATT JANITOR CUSTODIAN 05/19/25 Haloperidol (Haldol) 5 Mg Tb, 3 MG PO BID for 30 Days, #60 MG Prov:JOYA PLATT JANITOR CUSTODIAN 05/19/25 Benztropine Mesylate (Benztropine Mesylate) 1 Mg Tab, 1 MG PO BID for 30 Days, #60 MG Prov:JOYA PLATT JANITOR CUSTODIAN 05/19/25 Trazodone Hcl (Trazodone Hcl) 50 Mg Tab, 75 MG PO HS for 30 Days, #45 MG Prov:JOYA PLATT JANITOR CUSTODIAN 05/19/25 Albuterol Sulfate (Albuterol Sulfate Hfa) 108 Mcg/Act Aer, 108 MCG IN Q4HP PRN for 30 Days, #1 AER 2 puffs inhalation Prov:JOYA PLATT JANITOR CUSTODIAN 05/13/25 Reported Medications Albuterol Sulfate (Albuterol Sulfate (5 mg/ml) 0.5%) 1 [facility] [place], 1 NEB [place], INH 10/19/24 Information Source: Emergency Med Personnel Mode of Arrival: EMS Extremity Location: Back Timing: Days Prehospital treatment: None Severity: Moderate Onset of Symptoms: Spontaneous Symptoms: Pain Associated signs and symptoms: Back pain, Hip pain Past Medical History PAST MEDICAL HISTORY: COPD, Gallstones, GERD, HTN, Schizophrenia, UTI'S Surgical History: Denies all surgeries HOME THERAPY CLINICIAN History: Denies all HOME THERAPY CLINICIAN Hx Family History Family History: Reviewed,noncontributory to illness Social History Smoker: Cigarettes Alcohol: Denies ETOH Use Drugs: Denies Drug Use Lives In: Assisted Care Constitutional: denies: chills, diaphoresis, fatigue, fever, malaise, sweats, weakness, others EENTM: denies: blurred vision, double vision, ear bleeding, ear discharge, ear drainage, ear pain, ear ringing, eye pain, eye redness, hearing loss, mouth pain, mouth swelling, nasal discharge, nose bleeding, nose congestion, nose pain, photophobia, tearing, throat pain, throat swelling, voice changes, others Respiratory: denies: cough, hemoptysis, orthopnea, SOB at rest, shortness of breath, SOB with excertion, stridor, wheezing, others Cardiovascular: denies: chest pain, dizzy spells, diaphoresis, Dyspnea on exertion, edema, irregular heart beat, left arm pain, lightheadedness, palpitations, PND, syncope, others Gastrointestinal: denies: abdomen distended, abdominal pain, blood streaked bowels, constipated, diarrhea, dysphagia, difficulty swallowing, hematemesis, melena, nausea, poor appetite, poor fluid intake, rectal bleeding, rectal pain, vomiting, others Genitourinary: denies: abnormal vagina bleeding, burning, dyspareunia, dysuria, flank pain, frequency, hematuria, incontinence, pain, , vagina discharge, urgency, others Neurological: denies: dizziness, fainting, headache, left sided numbness, left sided weakness, numbness, paresthesia, pre-existing deficit, right sided numbness, right sided weakness, seizure, speech problems, tingling, tremors, weakness, others Musculoskeletal: reports: back pain, others (hip pain ); denies: gout, joint pain, joint swelling, muscle pain, muscle stiffness, neck pain Integumetry: denies: bruises, change in color, change in hair/nails, dryness, laceration, lesions, lumps, rash, wounds, others Allergic/Immunocompromised: denies: Difficulty Healing, Frequent Infections, Hives, Itching, others Hematologic/Lymphatic: denies: anemia, blood clots, easy bleeding, easy bruising, swollen glands, others Endocrine: denies: excessive hunger, excessive sweating, excessive thirst, excessive urination, flushing, intolerance to cold, intolerance to heat, unexplained weight gain, unexplained weight loss, others Psychiatric: denies: anxiety, bipolar disorder, depression, hopeless, panic disorder, schizophrenia, sleepless, suicidal, others All Other Systems: Reviewed and Negative Physical Exam General Appearance: Moderate Distress HEENT: Normal ENT Inspection, Pharynx Normal, TMs Normal Neck: Full Range of Motion, Non-Tender, Normal, Normal Inspection Respiratory: Chest Non-Tender, Lungs Clear, No Accessory Muscle Use, No Respiratory Distress, Normal Breath Sounds Cardiovascular: No Edema, No JVD, No Murmur, No Gallop, Normal Peripheral Pulses, Regular Rate/Rhythm Breast Exam: Deferred Gastrointestinal: No Organomegaly, Non Tender, No Pulsatile Mass, Normal Bowel Sounds, Soft Genitalia: Deferred Pelvic: Deferred Rectal: Deferred Extremities: No calf tenderness, Normal capillary refill, Normal inspection, Normal range of motion, Non-tender, No pedal edema Musculoskeletal : Apperance: Normal Neurologic: Alert, 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 Was a procedure done?: No Differential Diagnosis EXT Differential Diagnosis: CHF, Fracture, Sprain, Arthritis X-Ray, Labs, Meds, VS Vital Signs Date Time Temp Pulse Resp B/P (MAP) Pulse Ox O2 Delivery O2 Flow Rate FiO2 07/11/25 09:37 Room Air* 0 21 07/11/25 09:35 97.7 65 18 101/52 (68) 98 97.7 07/11/25 07:53 97.7 80 20 115/68 93 97.7 [place] [id number] Ph: [phone] DIAGNOSTIC IMAGING Diagnostic Imaging Report : [id number] Signed PATIENT: NATIVIDAD URBAN MACCT: [id number] UNIT: [id number] : 1970 LOC: ER ROOM / BED: / AGE / SEX: 55 / F ADM STATUS: REG ER SERVICE [id number] ORDERING PHYSICIAN: CRISELDA PATRICK MD PROCEDURE(s): PELVS - PELVIS AP REASON: degen ORDER NUMBER(s): [id number], ACCESSION NUMBER(s): [id number] XY PELVIS AP HISTORY: degen TECHNICAL DATA: Frontal view was obtained of the pelvis. COMPARISON: XY PELVIS AP on DOS: 03/20/25, XY L HIP COMPLETE XRAY on DOS: 11/24/24, XY R HIP COMPLETE XRAY on DOS: 11/11/23 FINDINGS: There is no abnormality involving the bony pelvis. The sacroiliac joints appear normal. There is no abnormality of the symphysis pubis. The hip joint spaces are symmetric. The proximal femurs demonstrate no abnormality. IMPRESSION: No acute fracture or dislocation of the pelvis. Patient alert. Vitals stable. Came in for back pain. Answering questions. X-ray of the pelvis does not reveal any acute process. Reviewed her previous visit. Counseled patient on effects of smoking cigarettes for 15 minutes. Explained to the patient. Was told to follow up with her primary care physician. Was told to come back if there is any problem. Images Reviewed?: Images reviewed and evaluated by me Time of 1ST Reevaluation: 08:53 Reevaluation 1ST: Unchanged Patient Education/Counseling: Diagnosis, Treatment Family Education/Counseling: No Family Present Departure 1 Departure Time of Disposition: 09:31 Impression: Primary Impression: Intractable back pain Disposition: 01 HOME / SELF CARE / HOMELESS Condition: Good Discharged With: Self Critical Care Note Critical Care Time?: No Stability Stability form required: No Heart Score Heart Score: Heart Score Response (Comments) Value History N/A 0 EKG N/A 0 Age N/A 0 Risk Factors N/A 0 Troponin N/A 0 Total 0 I personally scribed for CRISELDA PATRICK MD ([email or web address]) on 07/11/25 at 08:10. Electronically submitted by Isabel Ashby ([employer]). I personally scribed for CRISELDA PATRICK MD ([email or web address]) on 07/11/25 at 08:44. Electronically submitted by Isabel [employer]). CRISELDA PATRICK MD Jul 11, 2025 08:10
--- NOTE | 2025-07-11 08:39 | DVH ---
XY PELVIS AP HISTORY: degen TECHNICAL DATA: Frontal view was obtained of the pelvis. COMPARISON: XY PELVIS AP on DOS: 03/20/25, XY L HIP COMPLETE XRAY on DOS: 11/24/24, XY R HIP COMPLETE XR AY on DOS: 11/11/23 FINDINGS: There is no abnormality involving the bony pelvis. The sacroiliac joints appear normal. There is no a bnormality of the symphysis pubis. The hip joint spaces are symmetric. The proximal femurs demonstrat e no abnormality. IMPRESSION: No acute fracture or dislocation of the pelvis.
[2025-07-11 09:35] VITALS: BP 101/52; PULSE 65; RESP 18; TEMP 97.7; O2SAT 98
== END 2025-07-11 09:51 | disposition home or self-care (01) ==
LOC: ER 07:49 → EDBD 07:49 → ER 09:51
DX: M54.59 Other low back pain (principal); I10 Essential (primary) hypertension; J44.9 Chronic obstructive pulmonary disease, unspecified; Z79.899 Other long term (current) drug therapy
CPT/HCPCS: 72170

== ENCOUNTER 2025-07-12 22:54 | Emergency (ER) | payer OTHER ==
[~2025-07-12] VITALS: Ht 162.6 cm; Wt 61.0 kg
[2025-07-12] MEDS: ALBUTEROL SULF 2.5 MG/0.5ML(0.5%) NEB SOLN NEB ONE (23:18)
[2025-07-12] MEDS: ALBUTEROL SULF 2.5 MG/0.5ML(0.5%) NEB SOLN ONE (23:20)
[2025-07-12 23:24] VITALS: BP 122/81; TEMP 97.6
[2025-07-12 23:25] VITALS: PULSE 85; RESP 18; O2SAT 100
--- NOTE | 2025-07-13 00:13 | DVH ---
CHEST RADIOGRAPH Indication: sob Technique: 1 view Comparison: XY CHEST PORTABLE on DOS: 07/03/25, XY CHEST XRAY 1 VIEW on DOS: 06/30/25, XY CHEST RODY BLE on DOS: 06/27/25, XY CHEST PORTABLE on DOS: 06/23/25, XY CHEST PORTABLE on DOS: 06/19/25 FINDINGS: Lines and Tubes: None. Lungs/Pleura: Hyperexpanded lungs with chronic appearing reticular opacities in the apices and bases. No evidence of acute consolidation, pleural effusion or pneumothorax. Cardiomediastinum: Unremarkable. Other: No acute osseous abnormality. IMPRESSION: 1. Emphysematous lungs without acute cardiopulmonary abnormality.
--- NOTE | 2025-07-13 00:28 | ED.PDOC ---
SOB-HPI HPI Comments Patient brought in by EMS. Patient called EMS because she was feeling short of breath. Upon arrival EMS states the patient was wheezing satting 89% on room air. Patient was giving DuoNeb treatment in route which did show some improvement in the wheezing. Patient has a extensive history of psychiatric issues. Upon assessment, patient was stating that she has a broken hip, she was not willing to discuss for shortness of breath. Review of prior notes show the patient was here yesterday for hip pain and had x-rays done. Patient was also able to ambulate onto the gurney on her own. Chief Complaint: Shortness of Breath Time Seen by MD: 23:02 Primary Care Provider: UNKNOWN Reviewed notes: Nurses Notes Information Source: Patient Mode of Arrival: EMS Severity: Mild Past Medical History PAST MEDICAL HISTORY: COPD, Gallstones, GERD, HTN, Schizophrenia, UTI'S Surgical History: Denies all surgeries COUNTY DIRECTOR WELFARE History: Denies all COUNTY DIRECTOR WELFARE Hx Family History Family History: Reviewed,noncontributory to illness Social History Smoker: Cigarettes Alcohol: Denies ETOH Use Drugs: Denies Drug Use Lives In: Assisted Care Constitutional: denies: chills, diaphoresis, fatigue, fever, malaise, sweats, weakness, others EENTM: denies: blurred vision, double vision, ear bleeding, ear discharge, ear drainage, ear pain, ear ringing, eye pain, eye redness, hearing loss, mouth pain, mouth swelling, nasal discharge, nose bleeding, nose congestion, nose pain, photophobia, tearing, throat pain, throat swelling, voice changes, others Respiratory: reports: SOB at rest, wheezing; denies: cough, hemoptysis, orthopnea, shortness of breath, SOB with excertion, stridor, others Cardiovascular: denies: chest pain, dizzy spells, diaphoresis, Dyspnea on exertion, edema, irregular heart beat, left arm pain, lightheadedness, palpitations, PND, syncope, others Gastrointestinal: denies: abdomen distended, abdominal pain, blood streaked bowels, constipated, diarrhea, dysphagia, difficulty swallowing, hematemesis, melena, nausea, poor appetite, poor fluid intake, rectal bleeding, rectal pain, vomiting, others Genitourinary: denies: abnormal vagina bleeding, burning, dyspareunia, dysuria, flank pain, frequency, hematuria, incontinence, pain, , vagina discharge, urgency, others Neurological: denies: dizziness, fainting, headache, left sided numbness, left sided weakness, numbness, paresthesia, pre-existing deficit, right sided numbness, right sided weakness, seizure, speech problems, tingling, tremors, weakness, others Musculoskeletal: denies: back pain, gout, joint pain, joint swelling, muscle pain, muscle stiffness, neck pain, others Physical Exam General Appearance: No Apparent Distress, Normal HEENT: Normal ENT Inspection, Pharynx Normal, TMs Normal Neck: Full Range of Motion, Non-Tender, Normal, Normal Inspection Respiratory: Chest Non-Tender, Lungs Clear, No Accessory Muscle Use, No Respiratory Distress, Normal Breath Sounds Cardiovascular: No Edema, No JVD, No Murmur, No Gallop, Normal Peripheral Pulses, Regular Rate/Rhythm Breast Exam: Deferred Gastrointestinal: No Organomegaly, Non Tender, No Pulsatile Mass, Normal Bowel Sounds, Soft Genitalia: Deferred Pelvic: Deferred Rectal: Deferred Extremities: No calf tenderness, Normal capillary refill, Normal inspection, Normal range of motion, Non-tender, No pedal edema Musculoskeletal : Apperance: Normal Neurologic: Alert, 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 Was a procedure done?: No Differential Dx Differential Diagnosis: Asthma, Bronchitis, Panic Attack, Pneumonia X-Ray, Labs, Meds, VS Vital Signs Date Time Temp Pulse Resp B/P (MAP) Pulse Ox O2 Delivery O2 Flow Rate FiO2 07/12/25 23:25 85 18 100 Nasal Cannula* 2 28 07/12/25 23:24 97.6 85 18 122/81 (95) 100 97.6 07/12/25 23:17 18 100 Nasal Cannula* 4 36 07/12/25 23:15 80 07/12/25 23:00 97.6 85 18 122/81 100 97.6 07/12/25 23:00 100 Simple Mask* 8 60 Current Medications Medications (Trade) Dose Ordered Sig/Elaine Route Start Time Stop Time Status Last Admin Albuterol (Ventolin Medneb) 2.5 mg ONCE ONCE NEB 07/12/25 23:15 07/12/25 23:17 DC 07/12/25 23:18 X-Ray, Labs, Meds, VS Comment Imaging was reviewed by this provider, there is no obvious pathological or acute disease process. Pending radiology review Labs were reviewed by this provider, no abnormalities Vital signs reviewed by this provider, clinically stable Time of 1ST Reevaluation: 00:27 Reevaluation 1ST: Improved Patient Education/Counseling: Diagnosis, Treatment, Need For Follow Up (Follow up with PCP next available appointment. Return to the emergency department if symptoms worsen.) Family Education/Counseling: Diagnosis SEPSIS Sepsis Screen Date sepsis recognized/suspect: Jul 12, 2025 Time Sepsis recognized/suspect: 2299 Recent Procedure: No On Antibiotic Therapy: No Respiratory Rate >20: No Heart Rate >90: No Temp<36 C (96.8 F) or >38.3 C: No SBP <90 or MAP <65 mmHG: No New Acute Mental Status Change: No Is the patient on CPAP, BIPAP,: No Physician Orders Chest Xray 1 View (07/12/25 23:09) Electrocardigram (07/12/25 23:19) Vital Signs Date Time Temp Pulse Resp B/P (MAP) Pulse Ox O2 Delivery O2 Flow Rate FiO2 07/12/25 23:25 85 18 100 Nasal Cannula* 2 28 07/12/25 23:24 97.6 85 18 122/81 (95) 100 97.6 07/12/25 23:17 18 100 Nasal Cannula* 4 36 07/12/25 23:15 80 07/12/25 23:00 97.6 85 18 122/81 100 97.6 07/12/25 23:00 100 Simple Mask* 8 60 Medications Medications Dose Ordered Sig/Elaine Route Start Time Stop Time Status Last Admin Dose Admin Albuterol 2.5 mg ONCE ONCE NEB 07/12/25 23:15 07/12/25 23:17 DC 07/12/25 23:18 Departure 1 Departure Time of Disposition: 00:27 Impression: Primary Impression: COPD with acute exacerbation Disposition: 01 HOME / SELF CARE / HOMELESS Condition: Stable Discharged With: Self Critical Care Note Critical Care Time?: No Stability Stability form required: No Heart Score Heart Score: Heart Score Response (Comments) Value History N/A 0 EKG N/A 0 Age N/A 0 Risk Factors N/A 0 Troponin N/A 0 Total 0 MADHAV CASTRO Jul 13, 2025 00:28
[2025-07-13 03:04] LABS: Urine Protein, UAD Negative (Negative)
--- NOTE | 2025-07-13 20:03 | ECG ---
[facility] Test Date: 2025-07-12 Test Time: 23:15:38 Pat Name: NATIVIDAD URBAN Department: Room: Gender: F Skid Adzer: CHAR : 1970 Requested By: MADHAV CASTRO Order Number: [id number] Reading MD: Measurements Intervals [place] Rate: 80 P: 76 CA: 123 QRS: 101 QRSD: 80 T: 71 QT: 395 QTc: 456 Interpretive Statements Sinus rhythm Right axis deviation ST elevation, consider inferior injury Please click the below link to view image of tracing.
== END 2025-07-13 00:34 | disposition home or self-care (01) ==
LOC: ER 22:54 → EDBD 22:54 → ER 07-13 00:34
DX: J44.1 Chronic obstructive pulmonary disease with (acute) exacerbation (principal); F17.210 Nicotine dependence, cigarettes, uncomplicated; F20.9 Schizophrenia, unspecified; K21.9 Gastro-esophageal reflux disease without esophagitis; I10 Essential (primary) hypertension; J44.9 Chronic obstructive pulmonary disease, unspecified; Z87.440 Personal history of urinary (tract) infections
CPT/HCPCS: 71045; 81001; 93005; 94640

== ENCOUNTER 2025-07-14 17:27 | Emergency (ER) | payer OTHER ==
[~2025-07-14] VITALS: Ht 162.6 cm; Wt 61.0 kg
[2025-07-14 17:35] VITALS: BP 111/74; PULSE 94; TEMP 98.5
[2025-07-14 18:02] VITALS: RESP 20; O2SAT 92
[2025-07-14] MEDS: IPRATROPIUM BROM 0.5 MG/2.5ML INH SOL NEB ONE (18:02)
[2025-07-14] MEDS: ALBUTEROL SULF 2.5 MG/0.5ML(0.5%) NEB SOLN NEB ONE (18:02)
[2025-07-14] MEDS: methylPREDNISolone SOD SUCC 125 MG/2 ML VL IV ONE (18:23)
[2025-07-14 18:33] LABS: Hematocrit 45.3 % (36.0-46.0); Hemoglobin 14.7 g/dL (12.2-16.2); Mean Corpuscular Hemoglobin 31.8 pg (28.0-32.0); Mean Corpuscular Volume 98.3 fL (80.0-100.0); Nucleated Red Blood Cells % 0.1 %
[2025-07-14 18:39] LABS: Alanine Aminotransferase 13 U/L (7-40); Albumin 4.3 g/dL (3.2-4.8); Alkaline Phosphatase 89 U/L (46-116); Anion Gap 7 (5-15); BUN/Creatinine Ratio 14.1 (10.0-20.0); Calcium 9.2 mg/dL (8.7-10.4); Chloride 105 mmol/L (98-107); Potassium 4.0 mmol/L (3.5-5.1); Sodium 145 mmol/L (136-145); Total Protein 6.2 g/dL (5.7-8.2)
[2025-07-14 18:48] LABS: Blood Urea Nitrogen 9 mg/dL (9-23); Carbon Dioxide 33 mmol/L (20-31); Glucose 145 mg/dL (74-106)
[2025-07-14 18:49] LABS: Bilirubin, Total 0.3 mg/dL (0.2-1.0)
--- NOTE | 2025-07-14 20:09 | ED.PDOC ---
SOB-HPI HPI Comments 55-year-old female who presents to the ED for chief complaint of shortness a breath. Patient in the ED denies any shortness a breath but states she has a lesion on her left lower back. Patient in the ED otherwise refusing blood work and imaging studies. Patient in the ED otherwise has stable vitals. Patient is a resident at [facility] and was recently admitted to [facility] for shortness of breath and cough. Patient in the ED otherwise denies any other symptoms Past medical history: Tobacco abuse, medication noncompliance, COPD, schizophrenia, Past Surgical history: Unknown Medications: Albuterol Social history: Quit cigarettes one year prior, denies ETOH use, denies drug use Allergies: Lactose steenbergen: HPI: Poor Historian. Patient refused some labs and chest x-ray and certain medications. Patient does not use oxygen at home. REVIEW OF SYSTEMS: CONSTITUTIONAL: Denies acute: fever, diaphoresis, chills, generalized weakness. HEAD: Denies acute: headache, photophobia Eyes: Denies acute: Double vision, vision loss, eye pain, eye discharge. EARS: Denies acute: tinnitus, hearing loss, ear discharge, ear pain, THROAT: Denies acute: sore throat, swelling, difficulty swallowing , pain with swallowing, change in voice. NECK: Denies acute: neck pain, neck swelling, stiff neck. HEART: Denies acute : chest pain, palpitations, LUNGS: Denies acute: wheezing, cough, hemoptysis ABDOMEN: Denies acute: abdominal pain, Nausea, Vomiting, diarrhea, melena , hematemesis, hematochezia SKIN: Denies acute: rash, redness, lesions, itchiness. EXTREMITIES: Denies acute: calf pain, numbness, tingling, weakness, denies pain in extremity. Denies acute: Low back pain. Neuro: Denies acute: focal neurological deficit, motor or sensory focal neurological deficit, tremors, seizure like activity, confusion, dizziness, change in mental status, loss of bowel or bladder function, cauda equina like symptoms. : Denies acute: dysuria, hematuria, flank pain, increase in urinary frequency. PSYCH: Denies acute: hallucination, suicidal ideation, homicidal ideation. FEMALE: Denies acute: abnormal vaginal bleeding, foul odor, unusual discharge. PHYSICAL EXAM: General: -----no---acute distress, awake and alert. Head: normocephalic, atraumatic. Neck: supple, trachea is midline, no swelling. Throat: Normal phonation. Eyes:, no erythema, no purulent discharge, no proptosis, no icterus. Heart: regular rate, regular rhythm, no significant murmur appreciated. Lungs: no apparent respiratory distress, Able to speak in full sentences. No wheezing, no rhonchi, no crackles. No stridors Clear to auscultation bilaterally. Abdomen: non tender to palpation, non distended, soft, no guarding, no rebound, + bowel sounds. Neuro: Awake, Alert, oriented to name, self, situation, follows commands GCS=15. Speech is normal. Skin: no petechia, no purpura, no cyanosis, non-pale, not jaundice. Lower extremities: --no - Pitting edema no deformity, no focal swelling, no calf TTP. Makes eye contact. moves all four extremities. Face: no apparent facial droop. No CVA tenderness to percussion bilaterally. Ambulating in the ED independently. Evaluation of the area of complaint: Patient points to the left posterior lower ribcage in the midscapular line some soft tissue bulging that was noticed today by her facility staff while she was showering. Patient denies any pain in the area. There was no erythema or tenderness to palpation. Deep palpation of that area resolves the puffiness that is protruding out. ED COURSE: DISCLAIMER: This medical document was created using an electronic medical record system with voice recognition software and computerized dictation system. Although this document has been carefully reviewed, there might still be some phonetic and typographical errors. Occasional wrong-word or "sound-alike" substitutions may have occurred due to the inherent limitations of voice recognition software. These areas are purely typographical due to imperfections of the software programs and do not reflect any compromise in the patient's medical care. Please read the chart carefully and recognize, using context, where these substitutions have occurred. 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 all PEST CONTROL WORKER Hx Family History Family History: Reviewed,noncontributory to illness Social History Smoker: Cigarettes Alcohol: Denies ETOH Use Drugs: Denies Drug Use Lives In: Assisted Care Constitutional: denies: chills, diaphoresis, fatigue, fever, malaise, sweats, w eakness, others EENTM: denies: blurred vision, double vision, ear bleeding, ear discharge, ear drainage, ear pain, ear ringing, eye pain, eye redness, hearing loss, mouth pain, mouth swelling, nasal discharge, nose bleeding, nose congestion, nose pain, photophobia, tearing, throat pain, throat swelling, voice changes, others Respiratory: denies: cough, hemoptysis, orthopnea, SOB at rest, shortness of breath, SOB with excertion, stridor, wheezing, others Cardiovascular: denies: chest pain, dizzy spells, diaphoresis, Dyspnea on exertion, edema, irregular heart beat, left arm pain, lightheadedness, palpitations, PND, syncope, others Gastrointestinal: denies: abdomen distended, abdominal pain, blood streaked bowels, constipated, diarrhea, dysphagia, difficulty swallowing, hematemesis, melena, nausea, poor appetite, poor fluid intake, rectal bleeding, rectal pain, vomiting, others Genitourinary: denies: abnormal vagina bleeding, burning, dyspareunia, dysuria, flank pain, frequency, hematuria, incontinence, pain, , vagina di scharge, urgency, others Neurological: denies: dizziness, fainting, headache, left sided numbness, left sided weakness, numbness, paresthesia, pre-existing deficit, right sided numbness, right sided weakness, seizure, speech problems, tingling, tremors, weakness, others Musculoskeletal: denies: back pain, gout, joint pain, joint swelling, muscle pain, muscle stiffness, neck pain, others Integumetry: denies: bruises, change in color, change in hair/nails, dryness, laceration, lesions, lumps, rash, wounds, others Allergic/Immunocompromised: denies: Difficulty Healing, Frequent Infections, Hives, Itching, others Hematologic/Lymphatic: denies: anemia, blood clots, easy bleeding, easy bruising, swollen glands, others Endocrine: denies: excessive hunger, excessive sweating, excessive thirst, excessive urination, flushing, intolerance to cold, intolerance to heat, unexplained weight gain, unexplained weight loss, others Psychiatric: denies: anxiety, bipolar disorder, depression, hopeless, panic disorder, schizophrenia, sleepless, suicidal, others All Other Systems: Reviewed and Negative Physical Exam General Appearance: No Apparent Distress, Normal HEENT: Normal ENT Inspection, Pharynx Normal, TMs Normal Neck: Full Range of Motion, Non-Tender, Normal, Normal Inspection Respiratory: Chest Non-Tender, Lungs Clear, No Accessory Muscle Use, No Respiratory Distress, Normal Breath Sounds Cardiovascular: No Edema, No JVD, No Murmur, No Gallop, Normal Peripheral Pulses, Regular Rate/Rhythm Breast Exam: Deferred Gastrointestinal: No Organomegaly, Non Tender, No Pulsatile Mass, Normal Bowel Sounds, Soft Genitalia: Deferred Pelvic: Deferred Rectal: Deferred Extremities: No calf tenderness, Normal capillary refill, Normal inspection, N ormal range of motion, Non-tender, No pedal edema Musculoskeletal : Apperance: Normal Neurologic: Alert, administrative support clerk II-XII 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 Was a procedure done?: No Differential Dx Differential Diagnosis: Other (Mass, hematoma, abscess, hernia) X-Ray, Labs, Meds, VS Vital Signs Date Time Temp Pulse Resp B/P (MAP) Pulse Ox O2 Delivery O2 Flow Rate FiO2 07/14/25 18:02 20 92 Room Air* 0 21 07/14/25 17:35 98.5 94 30 111/74 99 98.5 Lab Test 07/14/25 18:12 Range/Units White Blood Count 5.3 4.4-10.8 10^3/uL Red Blood Count 4.60 4.0-5.20 10^6/uL Hemoglobin 14.7 12.2-16.2 g/dL Hematocrit 45.3 36.0-46.0 % Mean Corpuscular Volume 98.3 80.0-100.0 fL Mean Corpuscular Hemoglobin 31.8 28.0-32.0 pg Mean Corpuscular Hemoglobin Concent 32.4 32.0-36.0 g/dL Red Cell Distribution Width 17.3 H 11.8-14.3 % Platelet Count 158 140-450 10^3/uL Mean Platelet Volume 8.7 6.9-10.8 fL Neutrophils (%) (Auto) 64.5 37.0-80.0 % Lymphocytes (%) (Auto) 26.1 10.0-50.0 % Monocytes (%) (Auto) 7.3 0.0-12.0 % Eosinophils (%) (Auto) 1.6 0.0-7.0 % Basophils (%) (Auto) 0.5 0.0-2.0 % Neutrophils # (Auto) 3.4 1.6-8.6 10 ^3/uL Lymphocytes # (Auto) 1.4 0.4-5.4 10 ^3/uL Monocytes # (Auto) 0.4 0-1.3 10 ^3/uL Eosinophils # (Auto) 0.1 0-0.8 10 ^3/uL Basophils # (Auto) 0 0-0.2 10 ^3/uL Nucleated Red Blood Cells 0.1 % Sodium Level 145 136-145 mmol/L Potassium Level 4.0 3.5-5.1 mmol/L Chloride Level 105 98-107 mmol/L Carbon Dioxide Level 33 H 20-31 mmol/L Anion Gap 7 5-15 Blood Urea Nitrogen 9 9-23 mg/dL Creatinine 0.64 0.550-1.02 mg/dL Glomerular Filtration Rate Calc 104 >90 mL/min BUN/Creatinine Ratio 14.1 10.0-20.0 Serum Glucose 145 H 74-106 mg/dL Calcium Level 9.2 8.7-10.4 mg/dL Total Bilirubin 0.3 0.2-1.0 mg/dL Aspartate Amino Transferase (AST) 13 13-40 U/L Alanine Aminotransferase (ALT) 13 7-40 U/L Alkaline Phosphatase 89 46-116 U/L Troponin I High Sensitivity 3 L </=34 ng/L B-Type Natriuretic Peptide 15.24 0-100 pg/mL Total Protein 6.2 5.7-8.2 g/dL Albumin 4.3 3.2-4.8 g/dL Time of 1ST Reevaluation: 20:50 Reevaluation 1ST: Unchanged Patient Education/Counseling: Diagnosis, Treatment Family Education/Counseling: No Family Present Comments A soft tissue protrusion/swelling is easily reducible and resolves with palpation. No tenderness to palpation. No erythema, no lesions. MDM: patient presented with the above HPI.--soft tissue nonspecific protrusion of the back----workup was initiated. patient was found with the above mentioned diagnosis. Patient denies any shortness of breath. the following medications were ordered: please refer to order lists of meds and tests obtained by myself Dr. Potter. Patient ED course and VS have been stabilized. Patient has been reassessed in the ED and remained in a stable condition. Pertinent incidental findings were discussed with the patient and/or family. Patient/family voices understanding and is agreeable with plan. Patient has been observed in the ED adequate length of time to insure imp rovement/stability. Escalation of care considered: Consideration of escalation to observation or admission Patient was DISCHARGED home in a stable condition. All the reports of any imaging studies that were ordered by myself were reviewed by myself. SEPSIS Sepsis Screen Date sepsis recognized/suspect: Jul 14, 2025 Time Sepsis recognized/suspect: 8 Recent Procedure: No On Antibiotic Therapy: No Respiratory Rate >20: Yes Heart Rate >90: No Temp<36 C (96.8 F) or >38.3 C: No SBP <90 or MAP <65 mmHG: No New Acute Mental Status Change: No Is the patient on CPAP, BIPAP,: No Physician Orders Warp Yarn Sorter (07/14/25 ) Electrocardigram (07/14/25 17:46) Vital Signs Date Time Temp Pulse Resp B/P (MAP) Pulse Ox O2 Delivery O2 Flow Rate FiO2 07/14/25 18:02 20 92 Room Air* 0 21 07/14/25 17:35 98.5 94 30 111/74 99 98.5 Laboratory Tests Test 07/14/25 18:12 White Blood Count 5.3 10^3/uL (4.4-10.8) Departure 1 Departure Time of Disposition: 20:23 Impression: Primary Impression: COPD (chronic obstructive pulmonary disease) Additional Impressions: Soft tissue complaint Soft tissue swelling Disposition: 01 HOME / SELF CARE / HOMELESS Condition: Stable Additional Instructions: Additional instructions: Please read all instructions provided in this packet carefully. You MUST follow-up with your primary care/family doctor in 1 to 2 days. If you are unable to see your primary care/family doctor, please return to our emergency room for re-assessment and re-evaluation in 1 to 2 days. Return to the emergency room here in our facility or to the nearest ER [facility] if your symptoms change or worsen. CONSULTATIONS: you MUST Follow-up for consultation as soon as possible with: -cardiology/pulmonology in 1-2 days. Please call for appointment. You MUST call the consultants office yourself to make an appointment. You may need to arrange that through your insurance and/or your primary/family doctor. If you are unable to see the weight loss sales consultant in 1 to 2 days, you must return to our emergency room (or any other ER of your choice) for re-assessment and re- evaluation. Adequate fluid hydration. Although you have been discharged from the Emergency Department, this does not mean that you have a "clean bill of health". No definitive diagnosis for your symptoms has been made today. It is possible that you are in the process of developing a serious illness. This is why you must return to the ED without fail if any new or worsening symptoms develop. You might need some outpatient evaluation by your family doctor for imaging studies of the area. Discharged With: Self Critical Care Note Critical Care Time?: No Stability Stability form required: No Heart Score Heart Score: Heart Score Response (Comments) Value History N/A 0 EKG N/A 0 Age N/A 0 Risk Factors N/A 0 Troponin N/A 0 Total 0 I personally scribed for SRIRAM POTTER DO ([email or web address]) on 07/14/25 at 20:09. Electronically submitted by Shell Jiménez ([email or web address]). I personally scribed for SRIRAM POTTER DO ([email or web address]) on 07/14/25 at 20:21. Electronically submitted by Shell Jiménez ([email or web address]). SRIRAM POTTER DO Jul 14, 2025 20:09
== END 2025-07-14 18:26 | disposition left against medical advice (07) ==
LOC: ER 17:27 → EDBD 17:27 → ER 18:26
DX: J44.9 Chronic obstructive pulmonary disease, unspecified (principal); I10 Essential (primary) hypertension; K21.9 Gastro-esophageal reflux disease without esophagitis; F17.210 Nicotine dependence, cigarettes, uncomplicated; M79.89 Other specified soft tissue disorders; F20.9 Schizophrenia, unspecified; Z87.440 Personal history of urinary (tract) infections
CPT/HCPCS: 36415; 80053; 83880; 84484; 85025; 94640; 99284; J2919

== ENCOUNTER 2025-07-15 12:05 | Inpatient (IN) | payer OTHER ==
[~2025-07-15] VITALS: Ht 167.6 cm; Wt 45.2 kg
--- NOTE | 2025-07-15 13:16 | DVH ---
CHEST RADIOGRAPH Indication: weakness Technique: Single frontal view of the chest was obtained Comparison: XY CHEST XRAY 1 VIEW on DOS: 07/12/25, XY CHEST PORTABLE on DOS: 07/03/25, XY CHEST XRAY 1 VIEW on DOS: 06/30/25 FINDINGS: Lines and Tubes: None Lungs: Worsening right lower lobe airspace disease Pleura: No effusion. No pneumothorax. Cardiomediastinal contours: Unremarkable Bones: No acute osseous abnormality. IMPRESSION: 1. Worsening right lower lobe airspace disease compared to 07/12 2025.
--- NOTE | 2025-07-15 13:20 | ECG ---
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
[2025-07-15 13:36] LABS: Hematocrit 42.9 % (36.0-46.0); Hemoglobin 14.2 g/dL (12.2-16.2); Mean Corpuscular Hemoglobin 32.4 pg (28.0-32.0); Mean Corpuscular Volume 97.7 fL (80.0-100.0); Nucleated Red Blood Cells % 0.3 %
[2025-07-15 13:46] LABS: Chloride 106 mmol/L (98-107); Potassium 4.7 mmol/L (3.5-5.1)
[2025-07-15 13:47] LABS: Anion Gap 5 (5-15); Calcium 9.2 mg/dL (8.7-10.4)
[2025-07-15 13:51] LABS: Carbon Dioxide 34 mmol/L (20-31); Sodium 145 mmol/L (136-145)
[2025-07-15 13:52] LABS: BUN/Creatinine Ratio 14.8 (10.0-20.0)
[2025-07-15 13:54] LABS: Blood Urea Nitrogen 8 mg/dL (9-23)
[2025-07-15 13:58] LABS: Glucose 88 mg/dL (74-106)
[2025-07-15 15:15] VITALS: PULSE 90; RESP 26; O2SAT 93
[2025-07-15] MEDS: ACETAMINOPHEN 325 MG TAB PO ONE (18:06)
[2025-07-15] MEDS: ALBUTEROL SULF 2.5 MG/0.5ML(0.5%) NEB SOLN NEB ONE (18:12)
[2025-07-15] MEDS: IPRATROPIUM BROM 0.5 MG/2.5ML INH SOL NEB ONE (18:12)
[2025-07-15] MEDS ORDERED: HYDROcodone-ACET 5/325MG TAB PO PRN (18:30)
[2025-07-15] MEDS ORDERED: ACETAMINOPHEN 325 MG TAB PO PRN (18:30)
[2025-07-15] MEDS ORDERED: MORPHINE SULFATE INJ 2 MG/ml SYRG IV PRN ×2 (18:30)
[2025-07-15] MEDS ORDERED: NITROGLYCERIN 0.4 MG SL TAB SL PRN (18:30)
[2025-07-15 22:10] VITALS: BP 110/68; PULSE 76; RESP 18; RESP 20; TEMP 98.1; O2SAT 99
[2025-07-15] MEDS: AZITHROMYCIN 250 MG TAB PO ONE (23:28)
[2025-07-15] MEDS: methylPREDNISolone SOD SUCC 125 MG/2 ML VL IV ONE (23:29)
[2025-07-15 23:31] VITALS: PULSE 69; RESP 20; O2SAT 100
[2025-07-15] MEDS: ALBUTEROL SULF 2.5 MG/0.5ML(0.5%) NEB SOLN NEB PRN (23:31)
[2025-07-15] MEDS: ENOXAPARIN SOD 40 MG/0.4 ML SYRINGE SC SCH (23:33)
[2025-07-15 23:37] VITALS: PULSE 73; RESP 18; O2SAT 100
[2025-07-15 23:40] VITALS: BP 100/71; PULSE 68; RESP 19; TEMP 98; O2SAT 96
[2025-07-16] VITALS (8 sets, daily range): BP systolic 94–116; BP diastolic 44–71; PULSE 65–85; RESP 17–20; TEMP 97.6–98.7; O2SAT 93–100
[2025-07-16] MEDS ORDERED: [UNRECOGNIZED DRUG - CODE] PO (00:16)
[2025-07-16] MEDS ORDERED: ACET-1304 PO (00:16)
[2025-07-16] MEDS ORDERED: FLUT250M2 INH (00:16)
[2025-07-16] MEDS ORDERED: QUET50TA PO (00:16)
[2025-07-16] MEDS ORDERED: PANT1INJ3 PO (00:16)
[2025-07-16] MEDS ORDERED: ZOFR4T PO (00:20)
[2025-07-16] MEDS ORDERED: NAP500T PO (00:20)
[2025-07-16 05:06] LABS: Hematocrit 41.0 % (36.0-46.0); Hemoglobin 13.6 g/dL (12.2-16.2); Mean Corpuscular Hemoglobin 32.5 pg (28.0-32.0); Mean Corpuscular Volume 97.9 fL (80.0-100.0); Nucleated Red Blood Cells % 0.0 %
[2025-07-16 05:28] LABS: Alanine Aminotransferase 12 U/L (7-40); Alkaline Phosphatase 83 U/L (46-116); Anion Gap 4 (5-15); BUN/Creatinine Ratio 12.5 (10.0-20.0); Calcium 8.8 mg/dL (8.7-10.4); Chloride 105 mmol/L (98-107); Glucose 101 mg/dL (74-106); Potassium 4.3 mmol/L (3.5-5.1); Sodium 141 mmol/L (136-145)
[2025-07-16 05:29] LABS: Albumin 3.8 g/dL (3.2-4.8); Bilirubin, Total 0.5 mg/dL (0.2-1.0); Blood Urea Nitrogen 5 mg/dL (9-23); Carbon Dioxide 32 mmol/L (20-31); Total Protein 5.4 g/dL (5.7-8.2)
[2025-07-16 10:46] LABS: Hepatitis B Surface Antigen Negative (Negative)
[2025-07-16 11:10] LABS: Hepatitis C Antibody Negative (Negative)
--- NOTE | 2025-07-16 11:12 | ED.PDOC ---
SOB-HPI HPI Comments This is a 55 year old female BIBA presenting to the ED with chief complaint of SOB. EMS reports patient has been experiencing SOB with associated bilateral flank pain for the past few days. EMS relays patient is normally supposed to be on home O2, however, patient normally denies using it regularly. EMS states patient is currently on O2 at has an O2 saturation of 95%. Patient notes that she believes she is having a UTI and has a "lump on her back." Patient denies any chest pain, fever, chills, dysuria, hematuria, or N/V. Chief Complaint: Shortness of Breath Time Seen by MD: 12:58 Primary Care Provider: UNKNOWN Reviewed notes: Nurses Notes, Combat Systems Officer Notes, Medications, Allergies Information Source: Patient, Emergency Med Personnel Mode of Arrival: EMS Severity: Moderate Timing: Hours Duration: Since onset Context: At Rest PE Risk Factors: None History of: COPD Prehospital treatment: Oxygen Modifying Factors: Nothing Past Medical History PAST MEDICAL HISTORY: COPD, Gallstones, GERD, HTN, Schizophrenia, UTI'S Surgical History: Denies all surgeries EQUIPMENT OPERATOR History: Denies all EQUIPMENT OPERATOR Hx Family History Family History: Reviewed,noncontributory to illness Social History Smoker: Cigarettes Alcohol: Denies ETOH Use Drugs: Denies Drug Use Lives In: Assisted Care Constitutional: denies: chills, diaphoresis, fatigue, fever, malaise, sweats, weakness, others EENTM: denies: blurred vision, double vision, ear bleeding, ear discharge, ear drainage, ear pain, ear ringing, eye pain, eye redness, hearing loss, mouth pain, mouth swelling, nasal discharge, nose bleeding, nose congestion, nose pain, photophobia, tearing, throat pain, throat swelling, voice changes, others Respiratory: reports: shortness of breath; denies: cough, hemoptysis, orthopnea, SOB at rest, SOB with excertion, stridor, wheezing, others Cardiovascular: denies: chest pain, dizzy spells, diaphoresis, Dyspnea on exertion, edema, irregular heart beat, left arm pain, lightheadedness, palpitations, PND, syncope, others Gastrointestinal: denies: abdomen distended, abdominal pain, blood streaked bowels, constipated, diarrhea, dysphagia, difficulty swallowing, hematemesis, melena, nausea, poor appetite, poor fluid intake, rectal bleeding, rectal pain, vomiting, others Genitourinary: reports: flank pain; denies: abnormal vagina bleeding, burning, dyspareunia, dysuria, frequency, hematuria, incontinence, pain, , vagina discharge, urgency, others Neurological: denies: dizziness, fainting, headache, left sided numbness, left sided weakness, numbness, paresthesia, pre-existing deficit, right sided numbness, right sided weakness, seizure, speech problems, tingling, tremors, weakness, others Musculoskeletal: denies: back pain, gout, joint pain, joint swelling, muscle pain, muscle stiffness, neck pain, others Integumetry: denies: bruises, change in color, change in hair/nails, dryness, laceration, lesions, lumps, rash, wounds, others Allergic/Immunocompromised: denies: Difficulty Healing, Frequent Infections, Hi ves, Itching, others Hematologic/Lymphatic: denies: anemia, blood clots, easy bleeding, easy bruising, swollen glands, others Endocrine: denies: excessive hunger, excessive sweating, excessive thirst, excessive urination, flushing, intolerance to cold, intolerance to heat, unexplained weight gain, unexplained weight loss, others Psychiatric: denies: anxiety, bipolar disorder, depression, hopeless, panic disorder, schizophrenia, sleepless, suicidal, others All Other Systems: Reviewed and Negative Physical Exam General Appearance: No Apparent Distress, Normal HEENT: Normal ENT Inspection, Pharynx Normal, TMs Normal Neck: Full Range of Motion, Non-Tender, Normal, Normal Inspection Respiratory: Chest Non-Tender, Lungs Clear, No Accessory Muscle Use, Normal Breath Sounds, Other (Tachypneic) Cardiovascular: No Edema, No JVD, No Murmur, No Gallop, Normal Peripheral Pulses, Regular Rate/Rhythm Breast Exam: Deferred Gastrointestinal: No Organomegaly, Non Tender, No Pulsatile Mass, Normal Bowel Sounds, Soft Genitalia: Deferred Pelvic: Deferred Rectal: Deferred Extremities: No calf tenderness, Normal capillary refill, Normal inspection, Normal range of motion, Non-tender, No pedal edema Musculoskeletal : Apperance: Normal Neurologic: Alert, executive coach II-XII 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 Was a procedure done?: No Differential Dx Differential Diagnosis: Cardiogenic Shock, CHF, COPD, Dysrhythmia, Panic Attack, Pneumonia X-Ray, Labs, Meds, VS Vital Signs Date Time Temp Pulse Resp B/P (MAP) Pulse Ox O2 Delivery O2 Flow Rate FiO2 07/15/25 18:12 20 97 Nasal Cannula* 4 36 07/15/25 15:15 90 26 93 Nasal Cannula* 4 36 07/15/25 15:15 90 26 129/80 (96) 93 07/15/25 12:28 99.0 94 18 114/78 97 99.0 07/15/25 12:16 87 Lab Test 07/15/25 14:52 07/15/25 13:06 Range/Units Troponin I High Sensitivity 3 L 3 L </=34 ng/L White Blood Count 5.8 4.4-10.8 10^3/uL Red Blood Count 4.39 4.0-5.20 10^6/uL Hemoglobin 14.2 12.2-16.2 g/dL Hematocrit 42.9 36.0-46.0 % Mean Corpuscular Volume 97.7 80.0-100.0 fL Mean Corpuscular Hemoglobin 32.4 H 28.0-32.0 pg Mean Corpuscular Hemoglobin Concent 33.2 32.0-36.0 g/dL Red Cell Distribution Width 17.0 H 11.8-14.3 % Platelet Count 158 140-450 10^3/uL Mean Platelet Volume 8.6 6.9-10.8 fL Neutrophils (%) (Auto) 66.7 37.0-80.0 % Lymphocytes (%) (Auto) 24.3 10.0-50.0 % Monocytes (%) (Auto) 7.6 0.0-12.0 % Eosinophils (%) (Auto) 1.0 0.0-7.0 % Basophils (%) (Auto) 0.4 0.0-2.0 % Neutrophils # (Auto) 3.9 1.6-8.6 10 ^3/uL Lymphocytes # (Auto) 1.4 0.4-5.4 10 ^3/uL Monocytes # (Auto) 0.4 0-1.3 10 ^3/uL Eosinophils # (Auto) 0.1 0-0.8 10 ^3/uL Basophils # (Auto) 0 0-0.2 10 ^3/uL Nucleated Red Blood Cells 0.3 % Sodium Level 145 136-145 mmol/L Potassium Level 4.7 3.5-5.1 mmol/L Chloride Level 106 98-107 mmol/L Carbon Dioxide Level 34 H 20-31 mmol/L Anion Gap 5 5-15 Blood Urea Nitrogen 8 L 9-23 mg/dL Creatinine 0.54 L 0.550-1.02 mg/dL Glomerular Filtration Rate Calc 108 >90 mL/min BUN/Creatinine Ratio 14.8 10.0-20.0 Serum Glucose 88 74-106 mg/dL Calcium Level 9.2 8.7-10.4 mg/dL Current Medications Medications (Trade) Dose Ordered Sig/Elaine Route Start Time Stop Time Status Last Admin Acetaminophen (Tylenol Tablet) 650 mg ONCE ONCE PO 07/15/25 18:00 07/15/25 18:01 DC 07/15/25 18:06 Ipratropium Balsam (Atrovent Medneb) 0.5 mg ONCE ONCE NEB 07/15/25 18:00 07/15/25 18:01 DC 07/15/25 18:12 Albuterol (Ventolin Medneb) 1.25 mg ONCE ONCE NEB 07/15/25 18:15 07/15/25 18:16 DC 07/15/25 18:12 [place] [id number] Ph: [phone] DIAGNOSTIC IMAGING Diagnostic Imaging Report : [id number] Signed PATIENT: NATIVIDAD URBAN MACCT: [id number] UNIT: [id number] : 1970 LOC: ER ROOM / BED: / AGE / SEX: 55 / F ADM STATUS: REG ER SERVICE [id number] ORDERING PHYSICIAN: AISHWARYA LUCIANO MD PROCEDURE(s): CXRP - CHEST PORTABLE REASON: weakness ORDER NUMBER(s): [id number], ACCESSION NUMBER(s): [id number] CHEST RADIOGRAPH Indication: weakness Technique: Single frontal view of the chest was obtained Comparison: XY CHEST XRAY 1 VIEW on DOS: 07/12/25, XY CHEST PORTABLE on DOS: 07/03/25, XY CHEST XRAY 1 VIEW on DOS: 06/30/25 FINDINGS: Lines and Tubes: None Lungs: Worsening right lower lobe airspace disease Pleura: No effusion. No pneumothorax. Cardiomediastinal contours: Unremarkable Bones: No acute osseous abnormality. IMPRESSION: 1. Worsening right lower lobe airspace disease compared to 07/12 2025. ATED BY: KITTY JEAN Jr., DO DICTATED DATE/TIME: 07/15/251313 SIGNED BY: KITTY JEAN Jr., SIGNED DATE/TIME: 07/15/251313 CC: Time of 1ST Reevaluation: 13:56 Reevaluation 1ST: Unchanged Patient Education/Counseling: Diagnosis, Treatment Family Education/Counseling: No Family Present SEPSIS Sepsis Screen Date sepsis recognized/suspect: Jul 15, 2025 Time Sepsis recognized/suspect: 1225 Recent Procedure: No On Antibiotic Therapy: No Respiratory Rate >20: No Heart Rate >90: No Temp<36 C (96.8 F) or >38.3 C: No SBP <90 or MAP <65 mmHG: No New Acute Mental Status Change: No Is the patient on CPAP, BIPAP,: No Physician Orders Urinalysis (07/15/25 12:42) Chest Portable (07/15/25 12:42) Vital Signs Date Time Temp Pulse Resp B/P (MAP) Pulse Ox O2 Delivery O2 Flow Rate FiO2 07/15/25 18:12 20 97 Nasal Cannula* 4 36 07/15/25 15:15 90 26 93 Nasal Cannula* 4 36 07/15/25 15:15 90 26 129/80 (96) 93 07/15/25 12:28 99.0 94 18 114/78 97 99.0 07/15/25 12:16 87 Laboratory Tests Test 07/15/25 13:06 White Blood Count 5.8 10^3/uL (4.4-10.8) Medications Medications Dose Ordered Sig/Elaine Route Start Time Stop Time Status Last Admin Dose Admin Acetaminophen 650 mg ONCE ONCE PO 07/15/25 18:00 07/15/25 18:01 DC 07/15/25 18:06 Albuterol 1.25 mg ONCE ONCE NEB 07/15/25 18:15 07/15/25 18:16 DC 07/15/25 18:12 Ipratropium Balsam 0.5 mg ONCE ONCE NEB 07/15/25 18:00 07/15/25 18:01 DC 07/15/25 18:12 Departure 1 Departure Time of Disposition: 18:17 (Patient presented with acute shortness of breath concerning for acute on chronic COPD Exacerbation, Pneumonia, ACS, CHF, Pneumothorax. Less likely PE, Dissection. Data: 1. I ordered and reviewed the result of at least 3 labs including a CBC, BMP, and Troponin. 2. I independently interpreted the following tests: Chest X-ray shows .Risk:This patient has a high risk of morbidity due to further diagnostic testing or treatment and may suffer from respiratory or cardiac etiology . Workup reveals a likely COPD Exacerbation and patient should be admitted for further workup. and possible expert consultation.) Impression: Primary Impression: Acute and chronic respiratory failure Additional Impressions: COPD exacerbation Shortness of breath Disposition: ADMITTED INPATIENT Admit to: Tele Condition: Guarded Critical Care Note Critical Care Time?: Yes Critical care comment: Acute hypoxic respiratory failure Authorized and Performed by: Aishwarya Luciano MD Total critical care time: Approximately 39 minutes Due to a high probability of clinically significant, life threatening deterioration, the patient required my highest level of preparedness to intervene emergently and I personally spent this critical care time directly and personally managing the patient. This critical care time included obtaining a history; examining the patient; pulse oximetry; ordering and review of studies; arranging urgent treatment with development of a management plan; evaluation of patient's response to treatment; frequent reassessment; and, discussions with other providers. This critical care time was performed to assess and manage the high probability of imminent, life-threatening deterioration that could result in multi-organ failure. It was exclusive of separately billable procedures and treating other patients and teaching time. Please see my other sections and the rest of the note for further information on patient assessment and treatment. Stability Stability form required: No Heart Score Heart Score: Heart Score Response (Comments) Value History N/A 0 EKG N/A 0 Age N/A 0 Risk Factors N/A 0 Troponin N/A 0 Total 0 I personally scribed for AISHWARYA LUCIANO MD ([email or web address]) on 07/15/25 at 13:01. Electronically submitted by Ramón Alvarado ([email or web address]). I personally scribed for AISHWARYA LUCIANO MD ([email or web address]) on 07/15/25 at 13:27. Electronically submitted by Shell Jiménez ([email or web address]). AISHWARYA LUCIANO MD Jul 15, 2025 13:01
--- NOTE | 2025-07-16 11:23 | DVHHP2 ---
History of Present Illness HPI This is a 55 year old female ANGELOA presenting to the ED with chief complaint of SOB. EMS reports patient has been experiencing SOB with associated bilateral flank pain for the past few days. EMS relays patient is normally supposed to be on home O2, however, patient normally denies using it regularly. EMS states patient is currently on O2 at has an O2 saturation of 95%. Patient notes that she believes she is having a UTI and has a "lump on her back." Patient denies any chest pain, fever, chills, dysuria, hematuria, or N/V. Home Meds Active Scripts Loperamide Hcl (Imodium) 2 Mg Cp, 2 MG PO Q6HPRN PRN for 30 Days, #10 CAP Prov:JOYA PLATT CUPOLA TAPPER HELPER 06/22/25 Divalproex Sodium (Divalproex Sodium) 500 Mg Tab, 500 MG PO BID for 30 Days, #60 MG Prov:JOYA PLATT CUP[place] TAPPER HELPER 05/19/25 Haloperidol (Haldol) 5 Mg Tb, 3 MG PO BID for 30 Days, #60 MG Prov:JOYA PLATT CUPOLA TAPPER HELPER 05/19/25 Benztropine Mesylate (Benztropine Mesylate) 1 Mg Tab, 1 MG PO BID for 30 Days, #60 MG Prov:JOYA PLATT CUPOLA TAPPER HELPER 05/19/25 Trazodone Hcl (Trazodone Hcl) 50 Mg Tab, 75 MG PO HS for 30 Days, #45 MG Prov:JOYA PLATT CUPOLA TAPPER HELPER 05/19/25 Reported Medications Haloperidol (Haldol) 5 Mg Tb, 5 MG PO BID, MG 07/19/25 Ondansetron Odt 4MG Tab (ZOFRAN PO) 4 Mg Tb, 4 MG PO, TAB ODT TAB-DISSOLVE IN MOUTH, THEN SWALLOW 07/16/25 Naproxen (NAPROSYN TABLET) 500 Mg Tb, 1 TAB PO BID, #60 TAB 1 Refill 07/16/25 Acetaminophen (Tylenol Extra Strength) 500 Mg Tab, 500 MG PO, TAB 07/16/25 Fluticasone-Salmeterol (Advair Diskus 250/50) 1 Puff Ih, 1 PUFF INH BID, #3 IN HALER 3 Refills 07/16/25 Dextromethorphan-Guaifenesin (Tussin Dm Cough & Chest C 20-200 mg/20Ml) 1 Liq Liq, 1 LIQ PO, LIQ 07/16/25 Quetiapine Fumerate (Seroquel) 50 Mg Tab, 1 TAB PO QPM, #30 TAB 2 Refills 07/16/25 Pantoprazole Sodium (PANTOPRAZOLE SODIUM) 40 Mg Inj, 40 MG PO DAILY, INJ 07/16/25 Past Medical History Patient Family History: Anxiety disorder FH: COPD (chronic obstructive pulmonary disease) FH: schizophrenia H&P Exam Vital Signs Vital Signs Date Time Temp Pulse Resp B/P (MAP) Pulse Ox O2 Delivery O2 Flow Rate FiO2 07/15/25 18:12 20 97 Nasal Cannula* 4 36 07/15/25 15:15 90 07/15/25 15:15 129/80 (96) 07/15/25 12:28 99.0 99.0 SEPSIS Sepsis Screen Date sepsis recognized/suspect: Jul 15, 2025 Time Sepsis recognized/suspect: 1514 Recent Procedure: No On Antibiotic Therapy: No Respiratory Rate >20: No Heart Rate >90: No Temp<36 C (96.8 F) or >38.3 C: No SBP <90 or MAP <65 mmHG: No New Acute Mental Status Change: No Is the patient on CPAP, BIPAP,: No Physician Orders Urinalysis (07/15/25 12:42) Chest Portable (07/15/25 12:42) Methylprednisolone Sod Succ (Solu Medrol (07/15/25 18:30) Azithromycin Tablet (Zithromax Tablet) (07/15/25 18:30) Admit (07/15/25 18:26) Code Status (07/15/25 18:26) Hydrocodone-Acet 5/325mg Tab (Trenary 5/32 (07/15/25 18:30) Complete Blood Count (07/16/25 04:00) Comprehensive Metabolic Panel (07/16/25 04:00) Cardiac Diet-2gna,Lofat,Lochol (07/15/25 Dinner) Condition: Serious (07/15/25 18:26) Acetaminophen Tablet (Tylenol Tablet) (07/15/25 18:30) Morphine Sulfate Injection (07/15/25 18:30) Lovenox 40mg (07/15/25 18:30) Nitroglycerin Sublingual (Ntrostat Subli (07/15/25 18:30) Morphine Sulfate Injection (07/15/25 18:30) Stat Ekg For Chest Pain (07/15/25 18:26) Notify Of Changes From Base (07/15/25 18:26) Chief Operator Lock Tender For 24 Hours (07/15/25 18:26) Emergency Dysrhythmia Protocol (07/15/25 18:26) Rhythm Strips Once Every Shift (07/15/25 18:26) Oxygen By Nasal Cannula (07/15/25 18:26) Vital Signs Date Time Temp Pulse Resp B/P (MAP) Pulse Ox O2 Delivery O2 Flow Rate FiO2 07/15/25 18:12 20 97 Nasal Cannula* 4 36 07/15/25 15:15 90 26 93 Nasal Cannula* 4 36 07/15/25 15:15 90 26 129/80 (96) 93 07/15/25 12:28 99.0 94 18 114/78 97 99.0 07/15/25 12:16 87 Laboratory Tests Test 07/15/25 13:06 White Blood Count 5.8 10^3/uL (4.4-10.8) Medications Medications Dose Ordered Sig/Elaine Route Start Time Stop Time Status Last Admin Dose Admin Acetaminophen 650 mg ONCE ONCE PO 07/15/25 18:00 07/15/25 18:01 DC 07/15/25 18:06 650 MG Albuterol 1.25 mg ONCE ONCE NEB 07/15/25 18:15 07/15/25 18:16 DC 07/15/25 18:12 1.25 MG Ipratropium [place] 0.5 mg ONCE ONCE NEB 07/15/25 18:00 07/15/25 18:01 DC 07/15/25 18:12 0.5 MG Labs/Xrays Labs Test 07/15/25 14:52 07/15/25 13:06 Range/Units Troponin I High Sensitivity 3 L </=34 ng/L White Blood Count 5.8 4.4-10.8 10^3/uL Red Blood Count 4.39 4.0-5.20 10^6/uL Hemoglobin 14.2 12.2-16.2 g/dL Hematocrit 42.9 36.0-46.0 % Mean Corpuscular Volume 97.7 80.0-100.0 fL Mean Corpuscular Hemoglobin 32.4 H 28.0-32.0 pg Mean Corpuscular Hemoglobin Concent 33.2 32.0-36.0 g/dL Red Cell Distribution Width 17.0 H 11.8-14.3 % Platelet Count 158 140-450 10^3/uL Mean Platelet Volume 8.6 6.9-10.8 fL Neutrophils (%) (Auto) 66.7 37.0-80.0 % Lymphocytes (%) (Auto) 24.3 10.0-50.0 % Monocytes (%) (Auto) 7.6 0.0-12.0 % Eosinophils (%) (Auto) 1.0 0.0-7.0 % Basophils (%) (Auto) 0.4 0.0-2.0 % Neutrophils # (Auto) 3.9 1.6-8.6 10 ^3/uL Lymphocytes # (Auto) 1.4 0.4-5.4 10 ^3/uL Monocytes # (Auto) 0.4 0-1.3 10 ^3/uL Eosinophils # (Auto) 0.1 0-0.8 10 ^3/uL Basophils # (Auto) 0 0-0.2 10 ^3/uL Nucleated Red Blood Cells 0.3 % Sodium Level 145 136-145 mmol/L Potassium Level 4.7 3.5-5.1 mmol/L Chloride Level 106 98-107 mmol/L Carbon Dioxide Level 34 H 20-31 mmol/L Anion Gap 5 5-15 Blood Urea Nitrogen 8 L 9-23 mg/dL Creatinine 0.54 L 0.550-1.02 mg/dL Glomerular Filtration Rate Calc 108 >90 mL/min BUN/Creatinine Ratio 14.8 10.0-20.0 Serum Glucose 88 74-106 mg/dL Calcium Level 9.2 8.7-10.4 mg/dL Assessment/Plan Primary Diagnosis This is a 55 year old female BIBA presenting to the ED with chief complaint of SOB. EMS reports patient has been experiencing SOB with associated bilateral flank pain for the past few days. EMS relays patient is normally supposed to be on home O2, however, patient normally denies using it regularly. EMS states patient is currently on O2 at has an O2 saturation of 95%. Patient notes that she believes she is having a UTI and has a "lump on her back." Patient denies any chest pain, fever, chills, dysuria, hematuria, or N/V. Acute and chronic respiratory failure anxiety COPD exacerbation Shortness of breath pt left AMA shortly after admission Plan discussed with: Patient ADAM SU DO Jul 15, 2025 18:28
--- NOTE | 2025-07-16 22:35 | DVHINCON2 ---
Date of service: Jul 16, [address] Fernandez Reason for Consultation Acute hypoxic respiratory failure and COPD exacerbation. History of Present Illness This is a 55 year old woman with PMHx of COPD, gallstones, GERD, HTN, schizophrenia and UTIs who presents to the ED today with chief complaint of shortness of breath. EMS reports patient has been experiencing SOB with associated bilateral flank pain for the past few days. EMS relays patient is normally supposed to be on home O2, however, she denies using it regularly. EMS recorded O2 saturation of 95% on supplemental oxygen. Patient believes she is having a UTI and has a "lump on her back." She denies any chest pain, fever, chills, dysuria, hematuria, or N/V. Patient was admitted for further care. Pulmonary consultation is requested for evaluation and management of acute hypoxic respiratory failure and COPD exacerbation. Review of Systems: 14-point review of systems negative unless otherwise noted above. Past Medical History: COPD, HTN, schizophrenia, gallstones, GERD and UTI Past Surgical History: None Medications: Reviewed. Allergies: Lactose. Family History: COPD, anxiety, schizophrenia Social History: Smoker. No alcohol or illicit drug use. Family History: Anxiety disorder FH: COPD (chronic obstructive pulmonary disease) FH: schizophrenia Allergies: Coded Allergies: Lactose (Verified Allergy, Severe, 11/15/24) Erythromycin (Verified Allergy, Intermediate, 07/19/25) Home Meds Active Scripts Loperamide Hcl (Imodium) 2 Mg Cp, 2 MG PO Q6HPRN PRN for 30 Days, #10 CAP Prov:JOYA PLATT GLOBAL CTO 06/22/25 Divalproex Sodium (Divalproex Sodium) 500 Mg Tab, 500 MG PO BID for 30 Days, #60 MG Prov:JOYA PLATT GLOBAL CTO 05/19/25 Haloperidol (Haldol) 5 Mg Tb, 3 MG PO BID for 30 Days, #60 MG Prov:GIULIAJOYA Kathleen GLOBAL CTO 05/19/25 Benztropine Mesylate (Benztropine Mesylate) 1 Mg Tab, 1 MG PO BID for 30 Days, #60 MG Prov:JOYA PLATT GLOBAL CTO 05/19/25 Trazodone Hcl (Trazodone Hcl) 50 Mg Tab, 75 MG PO HS for 30 Days, #45 MG Prov:SAMUELREIDJOYA Kathleen GLOBAL CTO 05/19/25 Reported Medications Haloperidol (Haldol) 5 Mg Tb, 5 MG PO BID, MG 07/19/25 Ondansetron Odt 4MG Tab (ZOFRAN PO) 4 Mg Tb, 4 MG PO, TAB ODT TAB-DISSOLVE IN MOUTH, THEN SWALLOW 07/16/25 Naproxen (NAPROSYN TABLET) 500 Mg Tb, 1 TAB PO BID, #60 TAB 1 Refill 07/16/25 Acetaminophen (Tylenol Extra Strength) 500 Mg Tab, 500 MG PO, TAB 07/16/25 Fluticasone-Salmeterol (Advair Diskus 250/50) 1 Puff Ih, 1 PUFF INH BID, #3 INHALER 3 Refills 07/16/25 Dextromethorphan-Guaifenesin (Tussin Dm Cough & Chest C 20-200 mg/20Ml) 1 Liq Liq, 1 LIQ PO, LIQ 07/16/25 Quetiapine Fumerate (Seroquel) 50 Mg Tab, 1 TAB PO QPM, #30 TAB 2 Refills 07/16/25 Pantoprazole Sodium (PANTOPRAZOLE SODIUM) 40 Mg Inj, 40 MG PO DAILY, INJ 07/16/25 Current Medications Current Medications Medications (Trade) Dose Ordered Sig/Elaine Route PRN Reason Start Time Stop Time Status Last Admin Albuterol (Ventolin Medneb) 2.5 mg Q4HPRN PRN NEB SHORTNESS OF BREATH 07/15/25 23:30 07/16/25 17:22 DC 07/16/25 08:26 Vital Signs Vital Signs Date Time Temp Pulse Resp B/P (MAP) Pulse Ox O2 Delivery O2 Flow Rate FiO2 07/16/25 12:49 98.7 70 18 94/44 (61) 93 98.7 07/16/25 10:00 Nasal Cannula 4.0 07/16/25 10:00 36 Physical Exam Gen.: Patient lying in bed in no apparent distress. On supplemental oxygen. Head: Normocephalic, atraumatic. Eyes: EOMI/PERRLA. Ears: Normal hearing. Normal anatomy. Neck/trachea: Trachea midline, supple. Nose: Normal external anatomy. Mouth: Moist mucous membranes. Chest: Decreased air entry bilaterally. No wheezing or rhonchi. Cardiovascular: Positive S1, positive S2. Regular rate and rhythm. Abdomen: Positive bowel sounds in all 4 quadrants. Soft, non-tender, non- distended. : Deferred. Rectal: Deferred. Skin: Warm, dry. Intact. Extremities: 2+ radial pulses bilaterally. No lower extremity edema. Neuro: Awake, alert, oriented x3. No gross motor or sensory deficits. Cranial nerves II through XII intact. Gait not assessed. Labs/Diagnostic Data Labs Test 07/16/25 04:32 07/15/25 14:52 Range/Units White Blood Count 4.0 #L 4.4-10.8 10^3/uL Red Blood Count 4.19 4.0-5.20 10^6/uL Hemoglobin 13.6 12.2-16.2 g/dL Hematocrit 41.0 36.0-46.0 % Mean Corpuscular Volume 97.9 80.0-100.0 fL Mean Corpuscular Hemoglobin 32.5 H 28.0-32.0 pg Mean Corpuscular Hemoglobin Concent 33.2 32.0-36.0 g/dL Red Cell Distribution Width 16.7 H 11.8-14.3 % Platelet Count 134 L 140-450 10^3/uL Mean Platelet Volume 8.8 6.9-10.8 fL Neutrophils (%) (Auto) 85.9 H 37.0-80.0 % Lymphocytes (%) (Auto) 11.3 10.0-50.0 % Monocytes (%) (Auto) 1.8 0.0-12.0 % Eosinophils (%) (Auto) 0.3 0.0-7.0 % Basophils (%) (Auto) 0.7 0.0-2.0 % Neutrophils # (Auto) 3.4 1.6-8.6 10 ^3/uL Lymphocytes # (Auto) 0.4 0.4-5.4 10 ^3/uL Monocytes # (Auto) 0.1 0-1.3 10 ^3/uL Eosinophils # (Auto) 0 0-0.8 10 ^3/uL Basophils # (Auto) 0 0-0.2 10 ^3/uL Nucleated Red Blood Cells 0.0 % Sodium Level 141 136-145 mmol/L Potassium Level 4.3 3.5-5.1 mmol/L Chloride Level 105 98-107 mmol/L Carbon Dioxide Level 32 H 20-31 mmol/L Anion Gap 4 L 5-15 Blood Urea Nitrogen 5 L 9-23 mg/dL Creatinine 0.40 L 0.550-1.02 mg/dL Glomerular Filtration Rate Calc 116 >90 mL/min BUN/Creatinine Ratio 12.5 10.0-20.0 Serum Glucose 101 74-106 mg/dL Calcium Level 8.8 8.7-10.4 mg/dL Total Bilirubin 0.5 0.2-1.0 mg/dL Aspartate Amino Transferase (AST) 13 13-40 U/L Alanine Aminotransferase (ALT) 12 7-40 U/L Alkaline Phosphatase 83 46-116 U/L Total Protein 5.4 L 5.7-8.2 g/dL Albumin 3.8 3.2-4.8 g/dL Hepatitis B Surface Antigen Negative Negative Hepatitis C Antibody Negative Negative Troponin I High Sensitivity 3 L </=34 ng/L Microbiology Date/Time Source Procedure Growth Status 07/16/25 00:45 Nose MRSA Screen - Final Complete Assessment Impression: Acute hypoxic respiratory failure Dependence on supplemental oxygen Acute COPD exacerbation Atelectasis Cachexia, BMI 16.1 Nicotine dependence Plan: Supplemental oxygen Titrate to keep O2 sats above 92%. CXR on 07/15/25 reviewed, shows worsening right lower lobe airspace disease compared to 07/12 2025. Bronchodilators. Incentive spirometry Monitor renal function. Monitor electrolytes. Supplement as necessary. Monitor ins and outs. Smoking cessation discussed greater than 10 minutes. DVT prophylaxis. Prognosis: Poor given patient's multiple co-morbidities. Rest of plan per hospitalist and other consultants. Thank you, Dr. Fernandez, for allowing me to participate in this patient's care. Further recommendations will depend on the patient's clinical course. Please do not hesitate to contact me if you have any questions or concerns. This medical document was created using an electronic medical record system with [employer] dictation system. Although these documentations are being carefully reviewed, there may still be some phonetic and typographical changes. The errors are purely typographical, due to imperfection on the software program, and do not reflect any compromise in the patient's medical care. Plan discussed with: Patient, Other (RN/MD) Visit Coding Pulmonary Billing Provider: BRITANY MEDRANO MD Date of Service if different f: Jul 16, 2025 Common Visit Codes: 73172-LHIWONQ INP/OBS CARE (HIGH) BRITANY MEDRANO MD Jul 16, 2025 22:35
== END 2025-07-16 14:59 | disposition left against medical advice (07) | DRG 140 ==
LOC: EDBD 12:05 → ER 12:05 → OVERFLOW 18:26 → CENTRAL 21:45
PROVIDERS: ADMIT Internal Medicine; ATTEND Internal Medicine
DX: J44.1 Chronic obstructive pulmonary disease with (acute) exacerbation (principal); J96.21 Acute and chronic respiratory failure with hypoxia; R64 Cachexia; F20.9 Schizophrenia, unspecified; I10 Essential (primary) hypertension; F17.210 Nicotine dependence, cigarettes, uncomplicated; Z53.29 Procedure and treatment not carried out because of patient's decision for other reasons; J98.11 Atelectasis; K21.9 Gastro-esophageal reflux disease without esophagitis; Z68.1 Body mass index [BMI] 19.9 or less, adult; Z81.8 Family history of other mental and behavioral disorders; Z82.5 Family history of asthma and other chronic lower respiratory diseases; Z99.81 Dependence on supplemental oxygen; Z79.1 Long term (current) use of non-steroidal anti-inflammatories (NSAID); Z79.899 Other long term (current) drug therapy; Z79.2 Long term (current) use of antibiotics
CPT/HCPCS: 36415; 71045; 80048; 80053; 84484; 85025; 86803; 87081; 87340; 93005; 94640; 99291; G0378

== ENCOUNTER 2025-07-16 21:12 | Emergency (ER) | payer OTHER ==
[~2025-07-16] VITALS: Ht 167.6 cm; Wt 68.3 kg
[~2025-07-16 21:12] MED LIST changes: +ACET-1304 PO; +FLUT250M2 INH; +NAP500T PO; +PANT1INJ3 PO; +QUET50TA PO; +ZOFR4T PO; +[UNRECOGNIZED DRUG - CODE] PO
[2025-07-16 21:36] VITALS: TEMP 98.1
[2025-07-16 22:34] LABS: Hematocrit 41.9 % (36.0-46.0); Hemoglobin 13.8 g/dL (12.2-16.2); Mean Corpuscular Hemoglobin 32.0 pg (28.0-32.0); Mean Corpuscular Volume 97.0 fL (80.0-100.0); Nucleated Red Blood Cells % 0.1 %
--- NOTE | 2025-07-16 22:41 | DVH ---
CHEST RADIOGRAPH Indication: gen weak Technique: Single frontal view of the chest was obtained COMPARISON: XY CHEST PORTABLE on DOS: 07/15/25, XY CHEST XRAY 1 VIEW on DOS: 07/12/25, XY CHEST RODY BLE on DOS: 07/03/25, XY CHEST XRAY 1 VIEW on DOS: 06/30/25, XY CHEST PORTABLE on DOS: 06/27/25 FINDINGS: Lungs are hyperinflated. Lungs and pleural spaces are clear. Cardiac silhouette and giorgio are within n ormal limits. Bones and soft tissues demonstrate no significant abnormality. IMPRESSION: Pulmonary hyperinflation most commonly related to COPD.
[2025-07-16 22:45] LABS: Alanine Aminotransferase 15 U/L (7-40); Albumin 4.2 g/dL (3.2-4.8); Alkaline Phosphatase 92 U/L (46-116); Anion Gap 4 (5-15); BUN/Creatinine Ratio 13.3 (10.0-20.0); Bilirubin, Total 0.4 mg/dL (0.2-1.0); Calcium 9.0 mg/dL (8.7-10.4); Chloride 100 mmol/L (98-107); Glucose 93 mg/dL (74-106); Potassium 3.9 mmol/L (3.5-5.1); Sodium 142 mmol/L (136-145); Total Protein 6.2 g/dL (5.7-8.2)
[2025-07-16 23:02] LABS: Blood Urea Nitrogen 8 mg/dL (9-23); Carbon Dioxide 38 mmol/L (20-31)
[2025-07-17 01:27] VITALS: BP 114/60; PULSE 88; RESP 22; O2SAT 97
[2025-07-18] MEDS ORDERED: ALBUTEROL SULF 2.5 MG/0.5ML(0.5%) NEB SOLN ONE (06:34)
[2025-07-18] MEDS ORDERED: IPRATROPIUM BROM 0.5 MG/2.5ML INH SOL ONE (06:34)
== END 2025-07-17 07:22 | disposition left against medical advice (07) ==
LOC: EDBD 21:12 → ER 21:12 → EDUNIT# 21:12 → ER 07-17 07:22
DX: R53.1 Weakness (principal); Z79.899 Other long term (current) drug therapy
CPT/HCPCS: 36415; 71045; 80053; 83605; 84484; 85025

== ENCOUNTER 2025-07-18 04:17 | Emergency (ER) | payer OTHER ==
[~2025-07-18] VITALS: Ht 172.7 cm; Wt 54.0 kg
--- NOTE | 2025-07-18 04:34 | ED.PDOC ---
Back pain HPI HPI Comments 55-year-old female presents to the ED chief complaint mass to right lower flank area. She notes left lower flank pain and protruding mass over the past week. Reports no known injury. Denies any fevers chills nausea vomiting night sweats chest pain difficulty breathing shortness of breath, nausea vomiting diarrhea. Chief Complaint: Back Pain Time Seen by MD: 04:22 Primary Care Provider: UNKNOWN Reviewed Notes: Nurses Notes, Medications, Allergies Allergies: Coded Allergies: Lactose (Verified Allergy, Severe, 11/15/24) Home Meds Active Scripts Loperamide Hcl (Imodium) 2 Mg Cp, 2 MG PO Q6HPRN PRN for 30 Days, #10 CAP Prov:JOYA PLATT DIGITAL DESIGNER 06/22/25 Divalproex Sodium (Divalproex Sodium) 500 Mg Tab, 500 MG PO BID for 30 Days, #60 MG Prov:JOYA PLATT DIGITAL DESIGNER 05/19/25 Haloperidol (Haldol) 5 Mg Tb, 3 MG PO BID for 30 Days, #60 MG Prov:JOYA PLATT DIGITAL DESIGNER 05/19/25 Benztropine Mesylate (Benztropine Mesylate) 1 Mg Tab, 1 MG PO BID for 30 Days, #60 MG Prov:JOYA PLATT DIGITAL DESIGNER 05/19/25 Trazodone Hcl (Trazodone Hcl) 50 Mg Tab, 75 MG PO HS for 30 Days, #45 MG Prov:JOYA PLATT DIGITAL DESIGNER 05/19/25 Reported Medications Ondansetron Odt 4MG Tab (ZOFRAN PO) 4 Mg Tb, 4 MG PO, TAB ODT TAB-DISSOLVE IN MOUTH, THEN SWALLOW 07/16/25 Naproxen (NAPROSYN TABLET) 500 Mg Tb, 1 TAB PO BID, #60 TAB 1 Refill 07/16/25 Acetaminophen (Tylenol Extra Strength) 500 Mg Tab, 500 MG PO, TAB 07/16/25 Fluticasone-Salmeterol (Advair Diskus 250/50) 1 Puff Ih, 1 PUFF INH BID, #3 INHALER 3 Refills 07/16/25 Dextromethorphan-Guaifenesin (Tussin Dm Cough & Chest C 20-200 mg/20Ml) 1 Liq Liq, 1 LIQ PO, LIQ 07/16/25 Quetiapine Fumerate (Seroquel) 50 Mg Tab, 1 TAB PO QPM, #30 TAB 2 Refills 07/16/25 Pantoprazole Sodium (PANTOPRAZOLE SODIUM) 40 Mg Inj, 40 MG PO DAILY, INJ 07/16/25 Information Source: Patient Past Medical History PAST MEDICAL HISTORY: COPD, Gallstones, GERD, HTN, Schizophrenia, UTI'S Surgical History: Denies all surgeries CARTON INSPECTOR History: Denies all CARTON INSPECTOR Hx Family History Family History: Reviewed,noncontributory to illness Social History Smoker: Cigarettes Alcohol: Denies ETOH Use Drugs: Denies Drug Use Lives In: Assisted Care All Other Systems: Reviewed and Negative (See HPI) Physical Exam General Appearance: No Apparent Distress, Normal HEENT: Pharynx Normal Neck: Full Range of Motion, Non-Tender Respiratory: Chest Non-Tender, No Respiratory Distress, Wheezing Cardiovascular: No Edema, No JVD, No Murmur, No Gallop, Normal Peripheral Pulses, Regular Rate/Rhythm Breast Exam: Deferred Gastrointestinal: No Organomegaly, Non Tender, Normal Bowel Sounds, Soft, Other (Soft palpable mass left lower flank with tenderness) Genitalia: Deferred Pelvic: Deferred Rectal: Deferred Extremities: No calf tenderness, Normal range of motion, No pedal edema Musculoskeletal : Apperance: Normal Neurologic: Alert, No Motor Deficits, Normal Affect, Normal Mood, No Sensory Deficits Cerebellar Function: Normal Reflexes: NOT DONE Skin: Dry, Normal Color, Warm Lymphatic: No Adenopathy Was a procedure done? Was a procedure done?: No Back Pain Differential Dx Differential Diagnosis: Appendicitis, Bowel Obstruction, Cholelithiasis, Musculoskeletal Pain X-Ray, Labs, Meds, VS Vital Signs Date Time Temp Pulse Resp B/P (MAP) Pulse Ox O2 Delivery O2 Flow Rate FiO2 07/18/25 05:28 Room Air* 0 21 07/18/25 04:17 98.7 86 18 118/76 94 98.7 X-Ray, Labs, Meds, VS Comment MPRESSION: 1. No evidence of acute abdominopelvic abnormality. Mild asymmetric subcutaneous fat/ lipoma inferior to the right 12th rib which May account for clinical finding. Correlate clinically 2. 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 No hydronephrosis 3. Marked amount of stool within the colon. 4. Colonic diverticulosis. 5. Possible small hiatal hernia. 6. 50% compression deformity of the L1 vertebral body appears chronic. 7. Centrilobular emphysema Patient given duo neb reports improvement noted on CT mass that is palpated on the right 12th rib area noted to be a lipoma finding. Advised patient to follow up with her PCP 2-3 days as necessary ER return precautions given patient indicates understanding agrees with discharge plan of care. Images Reviewed?: Images reviewed and evaluated by me Time of 1ST Reevaluation: 04:34 Reevaluation 1ST: Unchanged Time of 2ND Reevaluation: 05:36 Reevaluation 2ND: Improved Patient Education/Counseling: Diagnosis, Treatment, Need For Follow Up Family Education/Counseling: No Family Present SEPSIS Sepsis Screen Physician Orders Ct Ab Pel Wo Con-No Oral Or Iv (07/18/25 04:30) Med Neb Initial Treatment (07/18/25 04:34) Vital Signs Date Time Temp Pulse Resp B/P (MAP) Pulse Ox O2 Delivery O2 Flow Rate FiO2 07/18/25 05:28 Room Air* 0 21 07/18/25 04:17 98.7 86 18 118/76 94 98.7 Departure 1 Departure Time of Disposition: 05:36 Impression: Primary Impression: Lipoma of back Disposition: 01 HOME / SELF CARE / HOMELESS Condition: Stable Discharged With: Self Critical Care Note Critical Care Time?: No Stability Stability form required: YOUNG Bansal Jul 18, 2025 04:34
--- NOTE | 2025-07-18 05:23 | DVH ---
Exam: CT CT AB PEL WO CON-NO ORAL OR IV History: mass palpated right lower flank Comparison Study: XY PELVIS AP on DOS: 07/11/25, XY PELVIS AP on DOS: 03/20/25, CT CT AB PEL WO CON-NO ORAL OR IV on DOS: 07/05/24 TECHNIQUE: Multidetector CT of the abdomen and pelvis was performed from lung bases to pubic symphysi s. Imaging was performed without IV contrast. Axial, coronal and sagittal multiplanar reformats were obtained from the axial data set by the technologist. Radiation optimization: All CT scans at this facility use at least one of these dose optimization garo hniques: automated exposure control mA and/or kV adjustment per patient size (includes targeted exam s where dose is matched to clinical indication) or iterative reconstruction. Radiation Dose Information: CT Dose: CTDI volume is 5.07 mGy. Dose-length product is 264.79 mGy*cm FINDINGS: Evaluation of solid organs is limited due to lack of intravenous contrast use. Imaged portions of the lung bases demonstrate centrilobular emphysema. There is a possible small hiat al hernia. Limited noncontrast evaluation of the liver, spleen, pancreas and adrenal glands appear unremarkable. The left kidney appears malrotated with the renal pelvis angulated posteriorly. Limited assessment, however no discrete hydronephrosis or mass. There is large amount of air within the bowel loops resulting in artifact. No evidence of bowel obstruction. Marked amount of intracolonic stool. Colonic diverticulosis. No fr ee fluid, free air, or adenopathy. No suspicious osseous lesion. 50% compression deformity of L2 appe ars chronic. There is mild asymmetric subcutaneous fat/ lipoma inferior to the right 12th rib which May account fo r clinical finding. IMPRESSION: 1. No evidence of acute abdominopelvic abnormality. Mild asymmetric subcutaneous fat/ lipoma inferior to the right 12th rib which May account for clinical finding. Correlate clinically 2. 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 No hydronephrosis 3. Marked amount of stool within the colon. 4. Colonic diverticulosis. 5. Possible small hiatal hernia. 6. 50% compression deformity of the L1 vertebral body appears chronic. 7. Centrilobular emphysema
[2025-07-18] MEDS: ALBUTEROL SULF 2.5 MG/0.5ML(0.5%) NEB SOLN NEB ONE (05:38)
[2025-07-18] MEDS: IPRATROPIUM BROM 0.5 MG/2.5ML INH SOL NEB ONE (05:39)
[2025-07-18 06:08] VITALS: BP 122/72; PULSE 82; RESP 19; TEMP 98.3; O2SAT 92
[2025-07-19] MEDS ORDERED: HAL5T PO (15:28)
== END 2025-07-18 06:16 | disposition home or self-care (01) ==
LOC: ER 04:17 → EDBD 04:17 → ER 06:16
DX: D17.1 Benign lipomatous neoplasm of skin and subcutaneous tissue of trunk (principal); I10 Essential (primary) hypertension; F20.9 Schizophrenia, unspecified; F17.210 Nicotine dependence, cigarettes, uncomplicated; Z79.899 Other long term (current) drug therapy
CPT/HCPCS: 74176; 94640

== ENCOUNTER 2025-07-19 06:29 | Inpatient (IN) | payer OTHER ==
[2025-07-19] VITALS (8 sets, daily range): BP systolic 107–127; BP diastolic 53–79; PULSE 76–107; RESP 16–22; TEMP 97.6–98; O2SAT 95–100
[~2025-07-19] VITALS: Ht 172.7 cm; Wt 67.4 kg
[~2025-07-19 06:29] MED LIST changes: -ALBU108A5 IN; -ALBU1NEB5 IN; -AZIT500T66 PO; -CEPH250C PO; -DICY10CA PO; -IBUP-1454 PO; -LEVO500T91 PO; -PRED20TA2 PO; -TIOT17SP IN
--- NOTE | 2025-07-19 06:54 | ED.PDOC ---
History of Present Illness HPI Comments 55 year old female with PMHx of COPD, GERD, HTN, Schizophrenia presents to the ED via EMS with a chief complaint of shortness of breath onset today. Per EMS, patient is from [facility] assisted [facility], patient was experiencing shortness of breath, was placed on c-pap in route to ED. Per EMS, there is a scabies and bed bugs outbreak at [facility]. Patient was discharged from this ED yesterday 07/18/25, was seen due to back pain. Patient is a poor historian. No other symptoms or modifying factors present at this time. Chief Complaint: Shortness of Breath Time Seen by MD: 06:40 Primary Care Provider: UNKNOWN Reviewed Notes: Medications, Allergies Allergies: Coded Allergies: Lactose (Verified Allergy, Severe, 11/15/24) Home Meds Active Scripts Loperamide Hcl (Imodium) 2 Mg Cp, 2 MG PO Q6HPRN PRN for 30 Days, #10 CAP Prov:JOYA PLATT PROPULSION MOTOR AND GENERATOR REPAIRER 06/22/25 Divalproex Sodium (Divalproex Sodium) 500 Mg Tab, 500 MG PO BID for 30 Days, #60 MG Prov:JOYA PLATT PROPULSION MOTOR AND GENERATOR REPAIRER 05/19/25 Haloperidol (Haldol) 5 Mg Tb, 3 MG PO BID for 30 Days, #60 MG Prov:JOYA PLATT NP 05/19/25 Benztropine Mesylate (Benztropine Mesylate) 1 Mg Tab, 1 MG PO BID for 30 Days, #60 MG Prov:JOYA PLATT PROPULSION MOTOR AND GENERATOR REPAIRER 05/19/25 Trazodone Hcl (Trazodone Hcl) 50 Mg Tab, 75 MG PO HS for 30 Days, #45 MG Prov:JOYA PLATT PROPULSION MOTOR AND GENERATOR REPAIRER 05/19/25 Reported Medications Ondansetron Odt 4MG Tab (ZOFRAN PO) 4 Mg Tb, 4 MG PO, TAB ODT TAB-DISSOLVE IN MOUTH, THEN SWALLOW 07/16/25 Naproxen (NAPROSYN TABLET) 500 Mg Tb, 1 TAB PO BID, #60 TAB 1 Refill 07/16/25 Acetaminophen (Tylenol Extra Strength) 500 Mg Tab, 500 MG PO, TAB 07/16/25 Fluticasone-Salmeterol (Advair Diskus 250/50) 1 Puff Ih, 1 PUFF INH BID, #3 INHALER 3 Refills 07/16/25 Dextromethorphan-Guaifenesin (Tussin Dm Cough & Chest C 20-200 mg/20Ml) 1 Liq Liq, 1 LIQ PO, LIQ 07/16/25 Quetiapine Fumerate (Seroquel) 50 Mg Tab, 1 TAB PO QPM, #30 TAB 2 Refills 07/16/25 Pantoprazole Sodium (PANTOPRAZOLE SODIUM) 40 Mg Inj, 40 MG PO DAILY, INJ 07/16/25 Information Source: Patient, Emergency Med Personnel Mode of Arrival: EMS Severity: Moderate Timing: Hours Duration: Since onset Prehospital treatment: C-Pap Past Medical History PAST MEDICAL HISTORY: COPD, Gallstones, GERD, HTN, Schizophrenia, UTI'S Surgical History: Denies all surgeries WASH HOUSE SUPERVISOR History: Denies all WASH HOUSE SUPERVISOR Hx Family History Family History: Reviewed,noncontributory to illness Social History Smoker: Cigarettes Alcohol: Denies ETOH Use Drugs: Denies Drug Use Lives In: Assisted Care Physical Exam General Appearance: Normal HEENT: Normal ENT Inspection, Pharynx Normal, TMs Normal Neck: Full Range of Motion, Non-Tender, Normal, Normal Inspection Respiratory: Chest Non-Tender, Lungs Clear, No Accessory Muscle Use, No Respiratory Distress, Normal Breath Sounds Cardiovascular: No Edema, No JVD, No Murmur, No Gallop, Normal Peripheral Pulses, Regular Rate/Rhythm Breast Exam: Deferred Gastrointestinal: No Organomegaly, Non Tender, No Pulsatile Mass, Normal Bowel Sounds, Soft Genitalia: Deferred Pelvic: Deferred Rectal: Deferred Extremities: No calf tenderness, Normal capillary refill, Normal inspection, Normal range of motion, Non-tender, No pedal edema Musculoskeletal : Apperance: Normal Neurologic: Alert, bagger meat II-XII 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 Was a procedure done?: No Differential Dx Considerations may include: acs, cva, viral syndrome, pneumonia, uti, copd X-Ray, Labs, Meds, VS Vital Signs Date Time Temp Pulse Resp B/P (MAP) Pulse Ox O2 Delivery O2 Flow Rate FiO2 07/19/25 10:56 98.2 95 23 88/49 (62) 100 98.2 07/19/25 09:30 90 27 96/27 (50) 98 07/19/25 08:30 90 25 95/47 (63) 99 07/19/25 07:51 77 07/19/25 07:30 97.5 76 16 107/43 (64) 96 97.5 07/19/25 07:30 76 16 96 Nasal Cannula* 3 32 07/19/25 06:37 98 Bi-Pap+ 100 100 07/19/25 06:37 97.7 89 21 94/51 (65) 97 97.7 07/19/25 06:30 98.1 100 30 128/77 98 98.1 Lab Test 07/19/25 08:22 07/19/25 07:19 07/19/25 06:53 Range/Units White Blood Count 2.7 L 4.4-10.8 10^3/uL Red Blood Count 3.81 L 4.0-5.20 10^6/uL Hemoglobin 12.0 L 12.2-16.2 g/dL Hematocrit 37.8 36.0-46.0 % Mean Corpuscular Volume 99.3 80.0-100.0 fL Mean Corpuscular Hemoglobin 31.5 28.0-32.0 pg Mean Corpuscular Hemoglobin Concent 31.7 L 32.0-36.0 g/dL Red Cell Distribution Width 17.6 H 11.8-14.3 % Platelet Count 94 L 140-450 10^3/uL Mean Platelet Volume 8.6 6.9-10.8 fL Neutrophils (%) (Auto) 49.5 37.0-80.0 % Lymphocytes (%) (Auto) 30.3 10.0-50.0 % Monocytes (%) (Auto) 17.9 H 0.0-12.0 % Eosinophils (%) (Auto) 1.9 0.0-7.0 % Basophils (%) (Auto) 0.4 0.0-2.0 % Neutrophils # (Auto) 1.4 L 1.6-8.6 10 ^3/uL Lymphocytes # (Auto) 0.8 0.4-5.4 10 ^3/uL Monocytes # (Auto) 0.5 0-1.3 10 ^3/uL Eosinophils # (Auto) 0.1 0-0.8 10 ^3/uL Basophils # (Auto) 0 0-0.2 10 ^3/uL Nucleated Red Blood Cells 0.1 % Troponin I High Sensitivity < 3 L < 3 L </=34 ng/L Sodium Level 144 136-145 mmol/L Potassium Level 4.3 3.5-5.1 mmol/L Chloride Level 107 98-107 mmol/L Carbon Dioxide Level 33 H 20-31 mmol/L Anion Gap 4 L 5-15 Blood Urea Nitrogen < 5 L 9-23 mg/dL Creatinine 0.58 0.550-1.02 mg/dL Glomerular Filtration Rate Calc 106 >90 mL/min BUN/Creatinine Ratio 8.6 L 10.0-20.0 Serum Glucose 75 74-106 mg/dL Calcium Level 8.4 L 8.7-10.4 mg/dL B-Type Natriuretic Peptide 20.79 0-100 pg/mL POC Glucose 73 70-106 mg/dl Time of 1ST Reevaluation: 07:10 Reevaluation 1ST: Unchanged Patient Education/Counseling: Diagnosis, Treatment, Prognosis Family Education/Counseling: No Family Present SEPSIS Sepsis Screen Physician Orders Chest Portable (07/19/25 07:08) Sodium Chloride 0.9% (07/19/25 11:45) Azithromycin Tablet (Zithromax Tablet) (07/19/25 11:45) Cefepime 2gm Extended Infusion (07/19/25 11:45) Vancomycin (07/19/25 11:45) Lactic Acid W/ Reflex Order (07/19/25 11:34) Blood Culture (07/19/25 11:34) Vital Signs Date Time Temp Pulse Resp B/P (MAP) Pulse Ox O2 Delivery O2 Flow Rate FiO2 07/19/25 10:56 98.2 95 23 88/49 (62) 100 98.2 07/19/25 09:30 90 27 96/27 (50) 98 07/19/25 08:30 90 25 95/47 (63) 99 07/19/25 07:51 77 07/19/25 07:30 97.5 76 16 107/43 (64) 96 97.5 07/19/25 07:30 76 16 96 Nasal Cannula* 3 32 07/19/25 06:37 98 Bi-Pap+ 100 100 07/19/25 06:37 97.7 89 21 94/51 (65) 97 97.7 07/19/25 06:30 98.1 100 30 128/77 98 98.1 Laboratory Tests Test 07/19/25 08:22 White Blood Count 2.7 10^3/uL (4.4-10.8) L Departure 1 Departure Time of Disposition: 11:36 (Patient with a pneumonia and worsening shortness of breath. Will cover patient with antibiotics and fluids and admit patient for further workup.) Impression: Primary Impression: Pneumonia Additional Impression: Shortness of breath Disposition: ADMITTED INPATIENT Admit to: Tele Condition: Guarded Critical Care Note Critical Care Time?: Yes Critical care comment: Acute hypoxic respiratory failure Authorized and Performed by: Aishwarya Luciano MD Total critical care time: Approximately 38 minutes Due to a high probability of clinically significant, life threatening deterioration, the patient required my highest level of preparedness to intervene emergently and I personally spent this critical care time directly and personally managing the patient. This critical care time included obtaining a history; examining the patient; pulse oximetry; ordering and review of studies; arranging urgent treatment with development of a management plan; evaluation of patient's response to treatment; frequent reassessment; and, discussions with other providers. This critical care time was performed to assess and manage the high probability of imminent, life-threatening deterioration that could result in multi-organ failure. It was exclusive of separately billable procedures and treating other patients and teaching time. Please see my other sections and the rest of the note for further information on patient assessment and treatment. Stability Stability form required: No Heart Score Heart Score: Heart Score Response (Comments) Value History N/A 0 EKG N/A 0 Age N/A 0 Risk Factors N/A 0 Troponin N/A 0 Total 0 I personally scribed for AISHWARYA LUCIANO MD ([email or web address]) on 07/19/25 at 06:54. Electronically submitted by Amber Qureshi ([email or web address]). I personally scribed for AISHWARYA LUCIANO MD ([email or web address]) on 07/19/25 at 07:24. Electronically submitted by Amber Qureshi ([email or web address]). AISHWARYA LUCIANO MD Jul 19, 2025 06:54
[2025-07-19 07:42] LABS: Chloride 107 mmol/L (98-107); Potassium 4.3 mmol/L (3.5-5.1); Sodium 144 mmol/L (136-145)
[2025-07-19 07:43] LABS: Anion Gap 4 (5-15)
[2025-07-19 07:44] LABS: Calcium 8.4 mg/dL (8.7-10.4); Carbon Dioxide 33 mmol/L (20-31)
[2025-07-19 07:48] LABS: BUN/Creatinine Ratio 8.6 (10.0-20.0); Blood Urea Nitrogen < 5 mg/dL (9-23); Glucose 75 mg/dL (74-106)
[2025-07-19 08:38] LABS: Hematocrit 37.8 % (36.0-46.0); Hemoglobin 12.0 g/dL (12.2-16.2); Mean Corpuscular Hemoglobin 31.5 pg (28.0-32.0); Mean Corpuscular Volume 99.3 fL (80.0-100.0); Nucleated Red Blood Cells % 0.1 %
--- NOTE | 2025-07-19 10:59 | DVH ---
INDICATION: sob TECHNIQUE: Frontal view of the chest. COMPARISON: XY CHEST PORTABLE on DOS: 07/16/25, XY CHEST PORTABLE on DOS: 07/15/25, XY CHEST XRAY 1 V IEW on DOS: 07/12/25, XY CHEST PORTABLE on DOS: 07/03/25, XY CHEST XRAY 1 VIEW on DOS: 06/30/25 FINDINGS: Right basilar opacity. The heart and mediastinal contours are grossly unremarkable. There is no evid ence of pleural disease. The bony structures of the chest are intact without fracture. IMPRESSION: 1. Right basilar pneumonia
[2025-07-19] MEDS: AZITHROMYCIN 250 MG TAB PO ONE (11:57)
[2025-07-19] MEDS: CEFEPIME 2GM/50ML NS 50 ML IV ONE ×2 (11:58→16:00)
[2025-07-19] MEDS: VANCOMYCIN 1GM/250ML KIT 250 ML IV ONE (11:58)
[2025-07-19] MEDS: SODIUM CHLORIDE 0.9% 1,900 ML IV ONE (11:59)
[2025-07-19 13:23] LABS: Lactic Acid w/Reflex 2.4 mmol/L (0.4-2.0)
--- NOTE | 2025-07-19 14:43 | DVHHP2 ---
History of Present Illness HPI 55 year old female with PMHx of COPD, GERD, HTN, Schizophrenia presents to the ED via EMS with a chief complaint of shortness of breath onset today. Per EMS, patient is from [facility], patient was experiencing shortness of breath, was placed on c-pap in route to ED. Per EMS, there is a scabies and bed bugs outbreak at [facility]. Patient was discharged from this ED yesterday 07/18/25, was seen due to back pain. Patient is a poor historian. No other symptoms or modifying factors present at this time. Home Meds Active Scripts Loperamide Hcl (Imodium) 2 Mg Cp, 2 MG PO Q6HPRN PRN for 30 Days, #10 CAP Prov:JOYA PLATT HEATER TENDER 06/22/25 Divalproex Sodium (Divalproex Sodium) 500 Mg Tab, 500 MG PO BID for 30 Days, #60 MG Prov:JOYA PLATT HEATER TENDER 05/19/25 Haloperidol (Haldol) 5 Mg Tb, 3 MG PO BID for 30 Days, #60 MG Prov:JOYA PLATT HEATER TENDER 05/19/25 Benztropine Mesylate (Benztropine Mesylate) 1 Mg Tab, 1 MG PO BID for 30 Days, #60 MG Prov:JOYA PLATT HEATER TENDER 05/19/25 Trazodone Hcl (Trazodone Hcl) 50 Mg Tab, 75 MG PO HS for 30 Days, #45 MG Prov:JOYA PLATT HEATER TENDER 05/19/25 Reported Medications Haloperidol (Haldol) 5 Mg Tb, 5 MG PO BID, MG 07/19/25 Ondansetron Odt 4MG Tab (ZOFRAN PO) 4 Mg Tb, 4 MG PO, TAB ODT TAB-DISSOLVE IN MOUTH, THEN SWALLOW 07/16/25 Naproxen (NAPROSYN TABLET) 500 Mg Tb, 1 TAB PO BID, #60 TAB 1 Refill 07/16/25 Acetaminophen (Tylenol Extra Strength) 500 Mg Tab, 500 MG PO, TAB 07/16/25 Fluticasone-Salmeterol (Advair Diskus 250/50) 1 Puff Ih, 1 PUFF INH BID, #3 INHALER 3 Refills 07/16/25 Dextromethorphan-Guaifenesin (Tussin Dm Cough & Chest C 20-200 mg/20Ml) 1 Liq Liq, 1 LIQ PO, LIQ 07/16/25 Quetiapine Fumerate (Seroquel) 50 Mg Tab, 1 TAB PO QPM, #30 TAB 2 Refills 07/16/25 Pantoprazole Sodium (PANTOPRAZOLE SODIUM) 40 Mg Inj, 40 MG PO DAILY, INJ 07/16/25 Past Medical History Patient Family History: Anxiety disorder FH: COPD (chronic obstructive pulmonary disease) FH: schizophrenia H&P Exam Vital Signs Vital Signs Date Time Temp Pulse Resp B/P (MAP) Pulse Ox O2 Delivery O2 Flow Rate FiO2 07/19/25 14:26 98.5 96 18 107/53 (71) 100 98.5 07/19/25 07:30 Nasal Cannula* 3 32 SEPSIS Sepsis Screen Date sepsis recognized/suspect: Jul 19, 2025 Time Sepsis recognized/suspect: 729 Recent Procedure: No On Antibiotic Therapy: No Respiratory Rate >20: No Heart Rate >90: No Temp<36 C (96.8 F) or >38.3 C: No SBP <90 or MAP <65 mmHG: No New Acute Mental Status Change: No Is the patient on CPAP, BIPAP,: No Physician Orders Chest Portable (07/19/25 07:08) Cefepime 2gm/50ml Ns (Maxipime 2gm/50ml) (07/19/25 11:45) Blood Culture (07/19/25 11:34) Vital Signs Date Time Temp Pulse Resp B/P (MAP) Pulse Ox O2 Delivery O2 Flow Rate FiO2 07/19/25 14:26 98.5 96 18 107/53 (71) 100 98.5 07/19/25 13:30 91 26 99/45 (63) 92 07/19/25 12:43 94 07/19/25 12:30 94 26 106/62 (77) 96 07/19/25 11:45 93 26 108/46 (66) 83 07/19/25 10:56 98.2 95 23 88/49 (62) 100 98.2 07/19/25 09:30 90 27 96/27 (50) 98 07/19/25 08:30 90 25 95/47 (63) 99 07/19/25 07:51 77 07/19/25 07:30 97.5 76 16 107/43 (64) 96 97.5 07/19/25 07:30 76 16 96 Nasal Cannula* 3 32 Laboratory Tests Test 07/19/25 08:22 07/19/25 12:09 White Blood Count 2.7 10^3/uL (4.4-10.8) L Lactic Acid Level 2.4 mmol/L (0.4-2.0) *H Medications Medications Dose Ordered Sig/Elaine Route Start Time Stop Time Status Last Admin Dose Admin Azithromycin 500 mg ONCE ONCE PO 07/19/25 11:45 07/19/25 11:46 DC 07/19/25 11:57 500 MG Sodium Chloride 1,900 ml @ 1,900 mls/hr ONCE ONCE IV 07/19/25 11:45 07/19/25 12:44 DC 07/19/25 11:59 1,900 MLS/HR Vancomycin HCl 250 ml @ 250 mls/hr ONCE ONCE IV 07/19/25 11:45 07/19/25 12:44 DC 07/19/25 11:58 250 MLS/HR Labs/Xrays Labs Test 07/19/25 12:09 07/19/25 08:22 07/19/25 07:19 07/19/25 06:53 Range/Units Lactic Acid Level 2.4 *H 0.4-2.0 mmol/L White Blood Count 2.7 L 4.4-10.8 10^3/uL Red Blood Count 3.81 L 4.0-5.20 10^6/uL Hemoglobin 12.0 L 12.2-16.2 g/dL Hematocrit 37.8 36.0-46.0 % Mean Corpuscular Volume 99.3 80.0-100.0 fL Mean Corpuscular Hemoglobin 31.5 28.0-32.0 pg Mean Corpuscular Hemoglobin Concent 31.7 L 32.0-36.0 g/dL Red Cell Distribution Width 17.6 H 11.8-14.3 % Platelet Count 94 L 140-450 10^3/uL Mean Platelet Volume 8.6 6.9-10.8 fL Neutrophils (%) (Auto) 49.5 37.0-80.0 % Lymphocytes (%) (Auto) 30.3 10.0-50.0 % Monocytes (%) (Auto) 17.9 H 0.0-12.0 % Eosinophils (%) (Auto) 1.9 0.0-7.0 % Basophils (%) (Auto) 0.4 0.0-2.0 % Neutrophils # (Auto) 1.4 L 1.6-8.6 10 ^3/uL Lymphocytes # (Auto) 0.8 0.4-5.4 10 ^3/uL Monocytes # (Auto) 0.5 0-1.3 10 ^3/uL Eosinophils # (Auto) 0.1 0-0.8 10 ^3/uL Basophils # (Auto) 0 0-0.2 10 ^3/uL Nucleated Red Blood Cells 0.1 % Troponin I High Sensitivity < 3 L </=34 ng/L Sodium Level 144 136-145 mmol/L Potassium Level 4.3 3.5-5.1 mmol/L Chloride Level 107 98-107 mmol/L Carbon Dioxide Level 33 H 20-31 mmol/L Anion Gap 4 L 5-15 Blood Urea Nitrogen < 5 L 9-23 mg/dL Creatinine 0.58 0.550-1.02 mg/dL Glomerular Filtration Rate Calc 106 >90 mL/min BUN/Creatinine Ratio 8.6 L 10.0-20.0 Serum Glucose 75 74-106 mg/dL Calcium Level 8.4 L 8.7-10.4 mg/dL B-Type Natriuretic Peptide 20.79 0-100 pg/mL POC Glucose 73 70-106 mg/dl Assessment/Plan Primary Diagnosis anxiety copd exacerbation, non compliant acute hypoxic resp failure lactic acidosis leukopenia sepsis with PNA bacterial PNA (Gram positive/gram negative) with hypoxia depressive disorder empirical iv abx Plan discussed with: Patient ADAM SU Jul 19, 2025 14:43
[2025-07-19] MEDS ORDERED: MORPHINE SULFATE INJ 2 MG/ml SYRG IV PRN (14:45)
[2025-07-19] MEDS ORDERED: NITROGLYCERIN 0.4 MG SL TAB SL PRN (14:45)
[2025-07-19] MEDS ORDERED: HAL5T PO (15:28)
[2025-07-19] MEDS: ACETAMINOPHEN 325 MG TAB PO PRN (15:33)
[2025-07-19] MEDS: ALPRAZolam 0.5 MG TAB PO PRN (16:33)
[2025-07-19 18:24] LABS: Urine Protein, UAD Negative (Negative)
[2025-07-19] MEDS: HYDROcodone-ACET 5/325MG TAB PO PRN (21:23)
[2025-07-19] MEDS: ALBUTEROL SULF 2.5 MG/0.5ML(0.5%) NEB SOLN NEB PRN (21:34)
[2025-07-19] MEDS: IPRATROPIUM BROM 0.5 MG/2.5ML INH SOL NEB PRN (21:34)
[2025-07-20] VITALS (15 sets, daily range): BP systolic 90–101; BP diastolic 55–79; PULSE 81–101; RESP 18–20; TEMP 97.9–98.8; O2SAT 92–99
[2025-07-20 07:22] LABS: Hemoglobin 13.1 g/dL (12.2-16.2)
[2025-07-20 07:26] LABS: Hematocrit 40.0 % (36.0-46.0); Mean Corpuscular Hemoglobin 32.2 pg (28.0-32.0); Mean Corpuscular Volume 98.5 fL (80.0-100.0)
[2025-07-20 07:40] LABS: Alanine Aminotransferase 11 U/L (7-40); Albumin 3.7 g/dL (3.2-4.8); Alkaline Phosphatase 91 U/L (46-116); Anion Gap 5 (5-15); Chloride 101 mmol/L (98-107); Glucose 79 mg/dL (74-106); Potassium 4.4 mmol/L (3.5-5.1); Sodium 143 mmol/L (136-145)
[2025-07-20 07:41] LABS: BUN/Creatinine Ratio 8.9 (10.0-20.0); Bilirubin, Total 0.3 mg/dL (0.2-1.0); Blood Urea Nitrogen < 5 mg/dL (9-23); Calcium 8.2 mg/dL (8.7-10.4); Carbon Dioxide 37 mmol/L (20-31); Total Protein 5.3 g/dL (5.7-8.2)
[2025-07-20 09:05] LABS: Anisocytosis Slight; Total Cells Counted 100.0 (100)
[2025-07-20] MEDS: ENOXAPARIN SOD 40 MG/0.4 ML SYRINGE SC SCH (09:32)
[2025-07-20] MEDS: BENZTROPINE MESY 0.5 MG TAB PO SCH (10:00)
[2025-07-20] MEDS: SODIUM CHLORIDE 0.9% 1,000 ML IV ONE (10:15)
--- NOTE | 2025-07-20 15:43 | DVHPN2 ---
Progress Note Date Seen: Jul 20, 2025 Medical Necessity Reason Pt with a Central, PICC or Fol: No Subjective Review of Systems: HEENT:Normal, CVS:Normal, RESPIRATORY:Normal, GI:Normal, :Normal Objective vital signs Vital Sign Date Time Temp Pulse Resp B/P (MAP) Pulse Ox O2 Delivery O2 Flow Rate FiO2 07/20/25 13:44 87 20 97 07/20/25 13:36 Nasal Cannula 3.0 07/20/25 13:36 32 07/20/25 09:00 98.8 90/67 (75) 98.8 Total Intake and Output 07/19/25 07/19/25 07/20/25 15:00 23:00 07:00 Intake Total 0 ml 150 ml Balance 0 ml 150 ml medications Current Medications Medications Dose Ordered Sig/Elaine Route Start Time Stop Time Status Last Admin Dose Admin Acetaminophen/ Hydrocodone Bitart 1 tab Q4HP PRN PO 07/19/25 14:45 07/19/25 21:23 1 TAB Enoxaparin Sodium 40 mg DAILY SC 07/20/25 10:00 07/20/25 09:32 40 MG Acetaminophen 650 mg Q6HP PRN PO 07/19/25 14:45 07/20/25 13:31 650 MG Morphine Sulfate 2 mg Q4HPRN PRN IV 07/19/25 14:45 Nitroglycerin 0.4 mg Q5MINP PRN SL 07/19/25 14:45 Morphine Sulfate 2 mg Q30M PRN IV 07/19/25 14:45 Alprazolam 1 mg [id number] PRN PO 07/19/25 15:45 07/19/25 16:33 1 MG Ipratropium [place] 0.5 mg Q4HPRN PRN NEB 07/19/25 17:30 07/20/25 13:35 0.5 MG Albuterol 1.25 mg Q4HPRN PRN NEB 07/19/25 17:30 07/20/25 13:35 1.25 MG Haloperidol 5 mg [id number] PRN PO 07/19/25 20:45 Divalproex Sodium 500 mg BID PO 07/19/25 22:00 07/19/25 21:14 500 MG Trazodone HCl 50 mg HS PO 07/19/25 22:00 07/19/25 21:14 50 MG Benztropine Mesylate 1 mg DAILY PO 07/20/25 10:00 Quetiapine Fumarate 100 mg HS PO 07/19/25 20:45 07/19/25 21:13 100 MG Ondansetron HCl 4 mg Q4HPRN PRN IV 07/20/25 07:30 laboratory and microbiology Laboratory Tests 07/20/25 04:40 Test 07/20/25 04:40 Range/Units Serum Glucose 79 74-106 mg/dL Microbiology Date/Time Source Procedure Growth Status 07/19/25 16:35 Nose MRSA Screen - Final Complete 07/19/25 12:14 Blood Blood Culture - Preliminary NO GROWTH AFTER 24 HOURS OF INCUBATION. Resulted Labs and/or images reviewed: Labs reviewed by me, Image(s) reviewed by me Problem List/Assessment/Plan Problem List/Assessment/Plan anxiety copd exacerbation, non compliant acute hypoxic resp failure lactic acidosis leukopenia sepsis with PNA bacterial PNA (Gram positive/gram negative) with hypoxia depressive disorder empirical iv abx Plan discussed with: Patient My Orders My Orders Orders - ADAM SU DO Procedure Category Date Status Time * Garage Supervisor CONS 07/19/25 Transmitted Consult Ipratropium Medneb PHA 07/19/25 In Process (Atrovent Medneb) 17:30 Cont Med Neb Intial Tx RT 07/19/25 Logged 17:18 Albuterol Medneb PHA 07/19/25 In Process (Ventolin Medneb) 17:30 Haloperidol Tablet PHA 07/19/25 In Process (Haldol Tablet) 20:[address] Tablet PHA 07/19/25 In Process (Depakote "Dr" Tabl 22:00 Trazodone Hcl PHA 07/19/25 In Process (Desyrel) 22:00 Benztropine Tablet PHA 07/20/25 In Process (Cogentin Tablet) 10:00 Quetiapine Fumarate PHA 07/19/25 In Process Tablet (Seroquel Tab 20:45 Ceftriaxone 1gm/50ml PHA 07/21/25 Logged (Rocephin) 09:00 Azithromycin 500mg/ PHA 07/21/25 Transmitted 250ml (Zithromax 50 10:00 ADAM SU DO Jul 20, 2025 15:43
[2025-07-21] VITALS (10 sets, daily range): BP systolic 95–112; BP diastolic 55–70; PULSE 84–90; RESP 17–20; TEMP 97.5–97.8; O2SAT 89–99
[2025-07-21] MEDS: AZITHROMYCIN 500MG/250ML 250 ML IV SCH (09:03)
[2025-07-21] MEDS: MORPHINE SULFATE INJ 2 MG/ml SYRG IV PRN (10:03)
[2025-07-21] MEDS: ONDANSETRON HCL 4 MG/2 ML VIAL IV PRN (14:23)
--- NOTE | 2025-07-21 15:21 | DVHPN2 ---
Progress Note Date Seen: Jul 21, 2025 Medical Necessity Reason Pt with a Central, PICC or Fol: No Objective vital signs Vital Sign Date Time Temp Pulse Resp B/P (MAP) Pulse Ox O2 Delivery O2 Flow Rate FiO2 07/21/25 12:49 97.5 86 18 105/64 (78) 96 97.5 07/21/25 10:00 Nasal Cannula 4.0 07/21/25 10:00 36 Total Intake and Output 07/20/25 07/20/25 07/21/25 15:00 23:00 07:00 Intake Total 1000 ml 500 ml Output Total 800 ml Balance 200 ml 500 ml medications Current Medications Medications Dose Ordered Sig/Elaine Route Start Time Stop Time Status Last Admin Dose Admin Acetaminophen/ Hydrocodone Bitart 1 tab Q4HP PRN PO 07/19/25 14:45 07/21/25 09:08 1 TAB Enoxaparin Sodium 40 mg DAILY SC 07/20/25 10:00 07/20/25 09:32 40 MG Acetaminophen 650 mg Q6HP PRN PO 07/19/25 14:45 07/21/25 14:18 650 MG Morphine Sulfate 2 mg Q4HPRN PRN IV 07/19/25 14:45 07/21/25 10:03 2 MG Nitroglycerin 0.4 mg Q5MINP PRN SL 07/19/25 14:45 Morphine Sulfate 2 mg Q30M PRN IV 07/19/25 14:45 Alprazolam 1 mg [id number] PRN PO 07/19/25 15:45 07/21/25 14:18 1 MG Ipratropium [place] 0.5 mg Q4HPRN PRN NEB 07/19/25 17:30 07/20/25 18:19 0.5 MG Albuterol 1.25 mg Q4HPRN PRN NEB 07/19/25 17:30 07/20/25 18:19 1.25 MG Haloperidol 5 mg [id number] PRN PO 07/19/25 20:45 Divalproex Sodium 500 mg BID PO 07/19/25 22:00 07/21/25 09:07 500 MG Trazodone HCl 50 mg HS PO 07/19/25 22:00 07/19/25 21:14 50 MG Benztropine Mesylate 1 mg DAILY PO 07/20/25 10:00 07/21/25 09:05 1 MG Quetiapine Fumarate 100 mg HS PO 07/19/25 20:45 07/19/25 21:13 100 MG Ondansetron HCl 4 mg Q4HPRN PRN IV 07/20/25 07:30 07/21/25 14:23 4 MG Ceftriaxone Sodium 50 ml @ 100 mls/hr DAILY@09 IV 07/21/25 09:00 07/21/25 09:02 100 MLS/HR Azithromycin 250 ml @ 125 mls/hr DAILY IV 07/21/25 10:00 07/21/25 09:03 125 MLS/HR laboratory and microbiology Laboratory Tests 07/20/25 04:40 Test 07/20/25 04:40 Range/Units Serum Glucose 79 74-106 mg/dL Microbiology Date/Time Source Procedure Growth Status 07/19/25 16:35 Nose MRSA Screen - Final Complete 07/19/25 12:14 Blood Blood Culture - Preliminary NO GROWTH AFTER 48 HOURS OF INCUBATION. Resulted Problem List/Assessment/Plan Problem List/Assessment/Plan anxiety copd exacerbation, non compliant acute hypoxic resp failure lactic acidosis leukopenia sepsis with PNA bacterial PNA (Gram positive/gram negative) with hypoxia depressive disorder empirical iv abx 07/21/2025 continue current care pt requests for inhaler Plan discussed with: Patient My Orders My Orders Orders - ADAM SU DO Procedure Category Date Status Time Ceftriaxone 1gm/50ml PHA 07/21/25 In Process (Rocephin) 09:00 Azithromycin 500mg/ PHA 07/21/25 In Process 250ml (Zithromax 50 10:00 ADAM SU DO Jul 21, 2025 15:21
[2025-07-21] MEDS ORDERED: AZIT-43 PO (15:23)
[2025-07-21] MEDS ORDERED: ALBU2SYP25 PO (15:23)
--- NOTE | 2025-07-21 19:29 | DVHINCON2 ---
Date of service: Jul 21, [address] Su Reason for Consultation Acute hypoxic respiratory failure, COPD. History of Present Illness The patient is a 55-year-old woman with past medical history of COPD, hypertension, GERD, and schizophrenia, who presented to the ED via EMS on 07/19/25 with a chief complaint of shortness of breath onset day of presentation. Per EMS, patient is from [facility]. She was placed on CPAP en route to ED. Per EMS, there is scabies and bedbugs outbreak at [facility]. Patient was discharged from this ED on 07/18/25, was seen due to back pain. Patient is a poor historian. No other acute symptoms reported. She was admitted for further care, and pulmonary consultation is requested for evaluation and management of acute hypoxic respiratory failure and COPD. Review of Systems: 14-point review of systems negative unless otherwise noted above. Past Medical History: COPD, hypertension, GERD, and schizophrenia Past Surgical History: None Medications: Reviewed. Allergies: Erythromycin Lactose Family History: COPD, anxiety, schizophrenia. Social History: Nonsmoker. No alcohol or illicit drug use. Family History: Anxiety disorder FH: COPD (chronic obstructive pulmonary disease) FH: schizophrenia Allergies: Coded Allergies: Lactose (Verified Allergy, Severe, 11/15/24) Erythromycin (Verified Allergy, Intermediate, 07/19/25) Home Meds Active Scripts Albuterol Sulfate (Ventolin) 2 Mg/5 Ml Sr, 5 ML PO TID PRN for 30 Days, #150 ML 3 Refills Prov:SUADAM Abel DO 07/21/25 Azithromycin (Azithromycin) 250 Mg Tab, 250 MG PO DAILY MDD 500 for 5 Days, #6 TAB 0 Refills 2 TABLETS ORALLY ON DAY ONE, THEN 1 TABLET ORALLY DAILY FOR 4 DAYS Prov:SUADAM Wang DO 07/21/25 Loperamide Hcl (Imodium) 2 Mg Cp, 2 MG PO Q6HPRN PRN for 30 Days, #10 CAP Prov:JOYA PLATT OVERHEAD CRANE TRUCK LOADER 06/22/25 Divalproex Sodium (Divalproex Sodium) 500 Mg Tab, 500 MG PO BID for 30 Days, #60 MG Prov:JOYA PLATT [employer]HEAD CR[employer] TRUCK LOADER 05/19/25 Haloperidol (Haldol) 5 Mg Tb, 3 MG PO BID for 30 Days, #60 MG Prov:JOYA PLATT OVERHEAD CR[employer] TRUCK LOADER 05/19/25 Benztropine Mesylate (Benztropine Mesylate) 1 Mg Tab, 1 MG PO BID for 30 Days, #60 MG Prov:JOYA PLATT OVERHEAD CR[employer] TRUCK LOADER 05/19/25 Trazodone Hcl (Trazodone Hcl) 50 Mg Tab, 75 MG PO HS for 30 Days, #45 MG Prov:JOYA PLATT OVERHEAD CR[employer] TRUCK LOADER 05/19/25 Reported Medications Haloperidol (Haldol) 5 Mg Tb, 5 MG PO BID, MG 07/19/25 Ondansetron Odt 4MG Tab (ZOFRAN PO) 4 Mg Tb, 4 MG PO, TAB ODT TAB-DISSOLVE IN MOUTH, THEN SWALLOW 07/16/25 Naproxen (NAPROSYN TABLET) 500 Mg Tb, 1 TAB PO BID, #60 TAB 1 Refill 07/16/25 Acetaminophen (Tylenol Extra Strength) 500 Mg Tab, 500 MG PO, TAB 07/16/25 Fluticasone-Salmeterol (Advair Diskus 250/50) 1 Puff Ih, 1 PUFF INH BID, #3 INHALER 3 Refills 07/16/25 Dextromethorphan-Guaifenesin (Tussin Dm Cough & Chest C 20-200 mg/20Ml) 1 Liq Liq, 1 LIQ PO, LIQ 07/16/25 Quetiapine Fumerate (Seroquel) 50 Mg Tab, 1 TAB PO QPM, #30 TAB 2 Refills 07/16/25 Pantoprazole Sodium (PANTOPRAZOLE SODIUM) 40 Mg Inj, 40 MG PO DAILY, INJ 07/16/25 Current Medications Current Medications Medications (Trade) Dose Ordered Sig/Elaine Route PRN Reason Start Time Stop Time Status Last Admin Ceftriaxone Sodium 50 ml @ 100 mls/hr DAILY@09 IV 07/21/25 09:00 07/21/25 09:02 Azithromycin 250 ml @ 125 mls/hr DAILY IV 07/21/25 10:00 07/21/25 09:03 Vital Signs Vital Signs Date Time Temp Pulse Resp B/P (MAP) Pulse Ox O2 Delivery O2 Flow Rate FiO2 07/21/25 17:00 97.7 84 17 101/55 (70) 99 97.7 07/21/25 10:00 Nasal Cannula 4.0 07/21/25 10:00 36 Physical Exam Gen.: Patient lying in bed in no apparent distress. On supplemental oxygen. Head: Normocephalic, atraumatic. Eyes: EOMI/PERRLA. Ears: Normal hearing. Normal anatomy. Neck/trachea: Trachea midline, supple. Nose: Normal external anatomy. Mouth: Moist mucous membranes. Chest: Decreased air entry bilaterally. No wheezing or rhonchi. Cardiovascular: Positive S1, positive S2. Regular rate and rhythm. Abdomen: Positive bowel sounds in all 4 quadrants. Soft, non-tender, non- distended. : Deferred. Rectal: Deferred. Skin: Warm, dry. Intact. Extremities: 2+ radial pulses bilaterally. No lower extremity edema. Neuro: Awake, alert, oriented x3. No gross motor or sensory deficits. Cranial nerves II through XII intact. Gait not assessed. Labs/Diagnostic Data Labs Test 07/20/25 04:40 07/19/25 17:58 07/19/25 14:11 07/19/25 08:22 Range/Units White Blood Count 1.6 #*L 4.4-10.8 10^3/uL Red Blood Count 4.06 4.0-5.20 10^6/uL Hemoglobin 13.1 12.2-16.2 g/dL Hematocrit 40.0 36.0-46.0 % Mean Corpuscular Volume 98.5 80.0-100.0 fL Mean Corpuscular Hemoglobin 32.2 H 28.0-32.0 pg Mean Corpuscular Hemoglobin Concent 32.7 32.0-36.0 g/dL Red Cell Distribution Width 16.8 H 11.8-14.3 % Platelet Count 87 L 140-450 10^3/uL Mean Platelet Volume 8.9 6.9-10.8 fL Neutrophils (%) (Auto) 37.0-80.0 % Lymphocytes (%) (Auto) 10.0-50.0 % Monocytes (%) (Auto) 0.0-12.0 % Basophils (%) (Auto) 0.0-2.0 % Neutrophils # (Auto) 1.6-8.6 10 ^3/uL Lymphocytes # (Auto) 0.4-5.4 10 ^3/uL Monocytes # (Auto) 0-1.3 10 ^3/uL Differential Total Cells Counted 100.0 100 Neutrophils % (Manual) 40 37.0-80.0 Band Neutrophils % (Manual) 2 Lymphocytes % (Manual) 45 10.0-50.0 Monocytes % (Manual) 12 0-12 Eosinophils % (Manual) 1 0-7 Basophils % (Manual) 0 0.0-2.0 Metamyelocytes % (manual) 0 Myelocytes % (Manual) 0 Promyelocytes % (Manual) 0 Blast Cells % (Manual) 0 Reactive Lymphocytes 0 Platelet Estimate Decreased Anisocytosis (manual) Slight Sodium Level 143 136-145 mmol/L Potassium Level 4.4 3.5-5.1 mmol/L Chloride Level 101 98-107 mmol/L Carbon Dioxide Level 37 H 20-31 mmol/L Anion Gap 5 5-15 Blood Urea Nitrogen < 5 L 9-23 mg/dL Creatinine 0.56 0.550-1.02 mg/dL Glomerular Filtration Rate Calc 107 >90 mL/min BUN/Creatinine Ratio 8.9 L 10.0-20.0 Serum Glucose 79 74-106 mg/dL Calcium Level 8.2 L 8.7-10.4 mg/dL Total Bilirubin 0.3 0.2-1.0 mg/dL Aspartate Amino Transferase (AST) 11 L 13-40 U/L Alanine Aminotransferase (ALT) 11 7-40 U/L Alkaline Phosphatase 91 46-116 U/L Total Protein 5.3 L 5.7-8.2 g/dL Albumin 3.7 3.2-4.8 g/dL Urine Color Colorless Yellow Urine Clarity Clear Clear Urine pH 6.5 5.0-9.0 Urine Specific [place] 1.005 1.001-1.035 Urine Protein Negative Negative Urine Ketones Negative Negative Urine Blood Negative Negative /uL Urine Nitrite Negative Negative Urine Bilirubin Negative Negative Urine Urobilinogen Normal Negative mg/dL Urine Leukocyte Esterase Negative Negative /uL Urine RBC <1 0 - 4 /hpf Urine Microscopic WBC < 1 0-5 /HPF Urine Squamous Epithelial Cells None seen <5 /hpf Urine Bacteria None seen None Seen /hpf Urine Glucose Normal Normal mg/dL Lactic Acid Level 0.9 0.4-2.0 mmol/L Eosinophils (%) (Auto) 1.9 0.0-7.0 % Eosinophils # (Auto) 0.1 0-0.8 10 ^3/uL Basophils # (Auto) 0 0-0.2 10 ^3/uL Nucleated Red Blood Cells 0.1 % Troponin I High Sensitivity < 3 L </=34 ng/L Test 07/19/25 07:19 07/19/25 06:53 Range/Units B-Type Natriuretic Peptide 20.79 0-100 pg/mL POC Glucose 73 70-106 mg/dl Microbiology Date/Time Source Procedure Growth Status 07/19/25 16:35 Nose MRSA Screen - Final Complete 07/19/25 12:14 Blood Blood Culture - Preliminary NO GROWTH AFTER 48 HOURS OF INCUBATION. Resulted Assessment Impression: Acute hypoxic respiratory failure Dependence on supplemental oxygen Sepsis Chronic obstructive pulmonary disease Dyspnea Plan: Supplemental oxygen Titrate to keep O2 sats above 92%. Continue bronchodilators. Continue antibiotics F/u cultures Incentive spirometry Monitor renal function. Monitor electrolytes. Supplement as necessary. Monitor ins and outs. DVT prophylaxis. Prognosis: Poor given patient's multiple co- morbidities. Rest of plan per hospitalist and other consultants. Thank you Dr. Su for allowing me to participate in this patient's care. Further recommendations will depend on the patient's clinical course. Please do not hesitate to contact me if you have any questions or concerns. This medical document was created using an electronic medical record system with [employer] dictation system. Although these documentations are being carefully reviewed, there may still be some phonetic and typographical changes. The errors are purely typographical, due to imperfection on the software program, and do not reflect any compromise in the patient's medical care. Plan discussed with: Patient, Other (RN/MD) MAXWELL PAREDES [facility] Jul 21, 2025 19:29
[2025-07-22] VITALS (10 sets, daily range): BP systolic 95–102; BP diastolic 58–66; PULSE 66–80; RESP 16–19; TEMP 97.2–97.6; O2SAT 95–100
[2025-07-22 05:41] LABS: Hematocrit 44.2 % (36.0-46.0); Hemoglobin 13.8 g/dL (12.2-16.2)
[2025-07-22] MEDS: HALOPERIDOL 5 MG TAB PO PRN (06:24)
--- NOTE | 2025-07-22 22:33 | DVHPN2 ---
Progress Note - Dictate Date Seen: Jul 22, 2025 Medical Necessity Reason Pt with a Central, PICC or Fol: No Subjective Patient seen and examined at bedside. Remains on supplemental oxygen Overnight events reviewed. vital signs Vital Sign Date Time Temp Pulse Resp B/P (MAP) Pulse Ox O2 Delivery O2 Flow Rate FiO2 07/22/25 21:00 74 16 101/66 (78) 97 07/22/25 20:00 Nasal Cannula* 4 36 07/22/25 18:53 97.6 Total Intake and Output 07/21/25 07/21/25 07/22/25 15:00 23:00 07:00 Intake Total 540 ml 440 ml 350 ml Balance 540 ml 440 ml 350 ml objective Gen.: Patient lying in bed in no apparent distress. On supplemental oxygen. Head: Normocephalic, atraumatic. Eyes: EOMI/PERRLA. Ears: Normal hearing. Normal anatomy. Neck/trachea: Trachea midline, supple. Nose: Normal external anatomy. Mouth: Moist mucous membranes. Chest: Decreased air entry bilaterally. No wheezing or rhonchi. Cardiovascular: Positive S1, positive S2. Regular rate and rhythm. Abdomen: Positive bowel sounds in all 4 quadrants. Soft, non-tender, non- distended. : Deferred. Rectal: Deferred. Skin: Warm, dry. Intact. Extremities: 2+ radial pulses bilaterally. No lower extremity edema. Neuro: Awake, alert, oriented x3. No gross motor or sensory deficits. Cranial nerves II through XII intact. Gait not assessed. laboratory and microbiology Laboratory Tests 07/22/25 04:38 07/20/25 04:40 Test 07/20/25 04:40 Range/Units Serum Glucose 79 74-106 mg/dL Assessment/Plan Impression: Acute hypoxic respiratory failure Dependence on supplemental oxygen Sepsis Chronic obstructive pulmonary disease Dyspnea Events: Remains on supplemental oxygen, 2 LPM NC Taper O2 as tolerated No distress No new complaints. Continue bronchodilators Continue antibiotics Incentive spirometry Labs and imaging reviewed. Rest of plan as noted below. Plan: Supplemental oxygen Titrate to keep O2 sats above 92%. Continue bronchodilators. Continue antibiotics F/u cultures Incentive spirometry Monitor renal function. Monitor electrolytes. Supplement as necessary. Monitor ins and outs. DVT prophylaxis. Prognosis: Poor given patient's multiple co- morbidities. Rest of plan per hospitalist and other consultants. Thank you Dr. Fernandez for allowing me to participate in this patient's care. Further recommendations will depend on the patient's clinical course. Please do not hesitate to contact me if you have any questions or concerns. This medical document was created using an electronic medical record system with [employer] dictation system. Although these documentations are being carefully reviewed, there may still be some phonetic and typographical changes. The errors are purely typographical, due to imperfection on the software program, and do not reflect any compromise in the patient's medical care. Plan discussed with: Patient, Other (SIL Faustin) MAXWELL PAREDES [facility] Jul 22, 2025 22:33
== END 2025-07-22 22:22 | disposition home or self-care (01) | DRG 720 ==
LOC: ER 06:29 → EDBD 06:29 → OVERFLOW 14:43 → EAST 15:09
PROVIDERS: ADMIT Internal Medicine; ATTEND Internal Medicine
PROC: 5A09357 Assistance with Respiratory Ventilation, Less than 24 Consecutive Hours, Continuous Positive Airway Pressure (ICD-10-PCS; principal; 2025-07-19)
DX: A41.50 Gram-negative sepsis, unspecified (principal); J96.01 Acute respiratory failure with hypoxia; J15.69 Pneumonia due to other Gram-negative bacteria; E87.20 Acidosis, unspecified; J15.9 Unspecified bacterial pneumonia; J44.0 Chronic obstructive pulmonary disease with (acute) lower respiratory infection; F32.A Depression, unspecified; I10 Essential (primary) hypertension; F20.9 Schizophrenia, unspecified; F41.9 Anxiety disorder, unspecified; F17.210 Nicotine dependence, cigarettes, uncomplicated; K21.9 Gastro-esophageal reflux disease without esophagitis; J44.1 Chronic obstructive pulmonary disease with (acute) exacerbation; Z81.8 Family history of other mental and behavioral disorders; Z99.81 Dependence on supplemental oxygen; Z82.5 Family history of asthma and other chronic lower respiratory diseases; Z91.199 Patient's noncompliance with other medical treatment and regimen due to unspecified reason; Z91.0110 Allergy to milk products, unspecified; Z87.440 Personal history of urinary (tract) infections; Z88.1 Allergy status to other antibiotic agents; Z79.899 Other long term (current) drug therapy
CPT/HCPCS: 36415; 71045; 80048; 80053; 81001; 82962; 83605; 83880; 84484; 85007; 85014; 85018; 85027; 87040; 87081; 94640; 96365; 99291; G0378; J0692; J2405

== ENCOUNTER 2025-07-23 07:13 | Emergency (ER) | payer OTHER ==
[~2025-07-23] VITALS: Ht 167.6 cm; Wt 68.1 kg
[~2025-07-23 07:13] MED LIST changes: +ALBU108A5 IN; +ALBU1NEB5 IN; +ALBU2SYP25 PO; +AZIT-43 PO; +AZIT500T66 PO; +CEPH250C PO; +DICY10CA PO; +IBUP-1454 PO; +LEVO500T91 PO; +PRED20TA2 PO; +TIOT17SP IN
--- NOTE | 2025-07-23 07:24 | ED.PDOC ---
HPI (NEURO) HPI Comments 55-year-old female presents here with headache. Report given to me by paramedics as well as the patient. Per paramedics she is known to our ER and comes here frequently a proximally once a week for different chief complaint. However she does not normally report of a headache. Patient states the headache started yesterday. She states they did give her several aspirin but it did not help. Per paramedics she lives at [facility]. She was found to be saturating 60% on room air however after placing her on 4 L nasal cannula oxygen status improved to 100%. They state that she is supposed to be on oxygen at baseline however she does walk around nursing care facility without oxygen. They stated that she called 911 herself. Patient states the headache is frontal. Reports minimal neck pain. Denies any fevers. She does not state this is the worst headache of her life. However she is unable to tell me when she had a similar headache. Patient is a poor historian. She is currently at a normal mental baseline. Time Seen by MD: 07:14 Primary Care Provider: UNKNOWN Reviewed Notes: Nurses Notes, Layout Mechanic Notes, Medications, Allergies Information Source: Patient, Emergency Med Personnel Mode of Arrival: EMS Severity: Moderate Headache Severity: Moderate Timing: Days (1) Headache Quality: Throbbing Headache Location: Frontal Onset: At rest Circumstances: Spontaneous Symptoms: None History of: Hypertension Modifying factors: Nothing Associated Signs and Symptoms: Headache, Neck Pain, Other (diarrhea) Past Medical History PAST MEDICAL HISTORY: COPD, Gallstones, GERD, HTN, Schizophrenia, UTI'S Surgical History: Denies all surgeries 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 BANKING ANALYST History: Denies all INVESTMENT BANKING ANALYST Hx Family History Family History: Reviewed,noncontributory to illness Social History Smoker: Cigarettes Alcohol: Denies ETOH Use Drugs: Denies Drug Use Lives In: Assisted Care Constitutional: denies: chills, diaphoresis, fatigue, fever, malaise, sweats, weakness, others EENTM: denies: blurred vision, double vision, ear bleeding, ear discharge, ear drainage, ear pain, ear ringing, eye pain, eye redness, hearing loss, mouth pain, mouth swelling, nasal discharge, nose bleeding, nose congestion, nose pain, photophobia, tearing, throat pain, throat swelling, voice changes, others Respiratory: denies: cough, hemoptysis, orthopnea, SOB at rest, shortness of breath, SOB with excertion, stridor, wheezing, others Cardiovascular: denies: chest pain, dizzy spells, diaphoresis, Dyspnea on exertion, edema, irregular heart beat, left arm pain, lightheadedness, palpitations, PND, syncope, others Gastrointestinal: reports: diarrhea; denies: abdomen distended, abdominal pain, blood streaked bowels, constipated, dysphagia, difficulty swallowing, hematemesis, melena, nausea, poor appetite, poor fluid intake, rectal bleeding, rectal pain, vomiting, others Genitourinary: denies: abnormal vagina bleeding, burning, dyspareunia, dysuria, flank pain, frequency, hematuria, incontinence, pain, , vagina discharge, urgency, others Neurological: reports: headache; denies: dizziness, fainting, left sided numbness, left sided weakness, numbness, paresthesia, pre-existing deficit, right sided numbness, right sided weakness, seizure, speech problems, tingling, tremors, weakness, others Musculoskeletal: reports: neck pain; denies: back pain, gout, joint pain, joint swelling, muscle pain, muscle stiffness, others Integumetry: denies: bruises, change in color, change in hair/nails, dryness, laceration, lesions, lumps, rash, wounds, others Allergic/Immunocompromised: denies: Difficulty Healing, Frequent Infections, Hives, Itching, others Hematologic/Lymphatic: denies: anemia, blood clots, easy bleeding, easy bruising, swollen glands, others Endocrine: denies: excessive hunger, excessive sweating, excessive thirst, excessive urination, flushing, intolerance to cold, intolerance to heat, unexplained weight gain, unexplained weight loss, others Psychiatric: denies: anxiety, bipolar disorder, depression, hopeless, panic disorder, schizophrenia, sleepless, suicidal, others All Other Systems: Reviewed and Negative Physical Exam General Appearance: Thin, Other (Dry lips, very soft-spoken hard to hear, speaks in 1 or 2 words only) HEENT: Normal ENT Inspection, Pharynx Normal, TMs Normal Neck: Full Range of Motion, Non-Tender, Normal, Normal Inspection Respiratory: Chest Non-Tender, Lungs Clear, No Respiratory Distress, Normal Breath Sounds Cardiovascular: No Edema, Normal Peripheral Pulses, Regular Rate/Rhythm Breast Exam: Deferred Gastrointestinal: No Organomegaly, Non Tender, Normal Bowel Sounds, Soft Genitalia: Deferred Pelvic: Deferred Rectal: Deferred Extremities: No calf tenderness, Normal capillary refill, Normal inspection, Normal range of motion, Non-tender, No pedal edema Musculoskeletal : Apperance: Normal Neurologic: Alert, No Motor Deficits, Normal Affect, Normal Mood, No Sensory Deficits, Other (Patient knows we are in the hospital knows it is June, but does not know the year.) Cerebellar Function: Normal Reflexes: Normal Skin: Dry, Normal Color, Warm Lymphatic: No Adenopathy Was a procedure done? Was a procedure done?: No Differential Diagnosis (SZ) Seizure: N/A CVA: Other General Weakness: N/A Headache: Migraine, Closed Head Injury, CVA, Intracerebral Hemorrhage, Subarachnoid Hemorrhage, Subdural Hemorrhage, Mass Lesion, Meningitis, Sinusitis X-Ray, Labs, Meds, VS Vital Signs Date Time Temp Pulse Resp B/P (MAP) Pulse Ox O2 Delivery O2 Flow Rate FiO2 07/23/25 07:44 98.2 07/23/25 07:13 97.3 94 18 102/68 96 97.3 Current Medications Medications (Trade) Dose Ordered Sig/Elaine Route Start Time Stop Time Status Last Admin Acetaminophen (Tylenol Tablet) 650 mg ONCE ONCE PO 07/23/25 07:30 07/23/25 07:31 DC 07/23/25 07:44 [place] [address] Ph: [phone] DIAGNOSTIC IMAGING Diagnostic Imaging Report : [id number] Signed PATIENT: NATIVIDAD URBAN MACCT: [id number] UNIT: [id number] : 1970 LOC: ER ROOM / BED: / AGE / SEX: 55 / F ADM STATUS: REG ER SERVICE 6 ORDERING PHYSICIAN: NICOLE DON MD PROCEDURE(s): HWOCT - HEAD WITHOUT CONTRAST REASON: Rule out intracranial hemorrhage ORDER NUMBER(s): [id number], ACCESSION NUMBER(s): [id number] CT HEAD WITHOUT CONTRAST INDICATION: Rule out intracranial hemorrhage EXAM DATE: 07/23/2025 07:35 AM COMPARISON: CT HEAD WITHOUT CONTRAST on DOS: 09/18/24 RADIATION DOSE: CTDIvol: 52.27 mGy, DLP: 755.91 mGy*cm PROCEDURE: CT scans of the head were obtained from the vertex to the skull base. Sagittal and coronal reconstructions were provided. All CT scans at this medical facility are performed using dose modulation techniques as appropriate to a performed exam including the following: Automated exposure control was utilized; adjustment of the MA and/or KV according to patient size; and use of iterative reconstruction technique. FINDINGS: There is sulcal and ventricular prominence. The brainshows normal morphology and maria-white matter differentiation, without intracranial hemorrhage, extra-axial fluid collection, mass effect or acute large vessel infarct. The ventricles are normal in size. The basal cisterns are patent. The skull and visible facial bones are intact. The paranasal sinuses, mastoid air cells and middle ear cavities are well-aerated. The soft tissues of the scalp are unremarkable. IMPRESSION: No acute intracranial abnormality. ATED BY: DMITRIY GAONA MD DICTATED DATE/TIME: 07/23/25803 SIGNED BY: DMITRIY GAONA MD SIGNED DATE/TIME: 07/23/25803 CC: 55-year-old female presents here with headache. Patient has a poor historian does not give details but does point to her front of her head as the cause of her pain. I considered possible meningitis however she has no fever, and minimal neck pain. Considered possible subarachnoid hemorrhage, given patient is unable to tell me details of her headache, a CT scan of the brain has been ordered. She is currently not on any blood thinners. I have also written for Tylenol p.o. for her headache. Patient was also found to be hypoxic upon video surveillance technician arrival. However she is saturating 99-100% on 4 L nasal cannula. Per paramedics they do not know how much oxygen she is supposed to be on but they do state that she his supposed to be on oxygen at the nursing care facility but he is noncompliant with oxygen use. She is well known to video surveillance technician in the ER staff. They state that she is currently at a normal mental baseline. At this time CT scan of the brain has returned which is within normal limits. At this time headache has improved with Tylenol. At this time low suspicion for emergent pathology. I will be discharging the patient back to nursing care f acility. Patient is feeling well. Saturating well on nasal cannula. Doubt subarachnoid hemorrhage at this time. Time of 1ST Reevaluation: 07:23 Reevaluation 1ST: Unchanged Time of 2ND Reevaluation: 08:24 Reevaluation 2ND: Improved Patient Education/Counseling: Diagnosis, Treatment, Prognosis Family Education/Counseling: No Family Present Departure 1 Departure Time of Disposition: 08:24 Impression: Primary Impression: Headache Qualified Codes: R51.9 - Headache, unspecified Disposition: 01 HOME / SELF CARE / HOMELESS Condition: Fair Additional Instructions: Follow up with the primary care physician in 2-3 days. Return to the ER if symptoms worsen or persist. Discharged With: Self Critical Care Note Critical Care Time?: No Stability Stability form required: No Heart Score Heart Score: Heart Score Response (Comments) Value History N/A 0 EKG N/A 0 Age N/A 0 Risk Factors N/A 0 Troponin N/A 0 Total 0 I personally scribed for NICOLE DON MD ([email or web address]) on 07/23/25 at 07:24. Electronically submitted by Lizzy Cristobal ([facility]). NICOLE DON MD Jul 23, 2025 07:24
[2025-07-23 07:40] VITALS: PULSE 102; RESP 19; O2SAT 88
[2025-07-23] MEDS: ACETAMINOPHEN 325 MG TAB PO ONE (07:44)
--- NOTE | 2025-07-23 08:07 | DVH ---
CT HEAD WITHOUT CONTRAST INDICATION: Rule out intracranial hemorrhage EXAM DATE: 07/23/2025 07:35 AM COMPARISON: CT HEAD WITHOUT CONTRAST on DOS: 09/18/24 RADIATION DOSE: CTDIvol: 52.27 mGy, DLP: 755.91 mGy*cm PROCEDURE: CT scans of the head were obtained from the vertex to the skull base. Sagittal and coronal reconstructions were provided. All CT scans at this medical facility are performed using dose modulation techniques as appropriate to a performed exam including the following: Automated exposure control was utilized; adjustment of the MA and/or KV according to patient size; and use of iterative reconstruction technique. FINDINGS: There is sulcal and ventricular prominence. The brainshows normal morphology and maria-white matter differentiation, without intracranial hemorrhage, extra-axial fluid collection, mass effect or acute large vessel infarct. The ventricles are normal in size. The basal cisterns are patent. The skull and visible facial bones are intact. The paranasal sinuses, mastoid air cells and middle ear cavities are well-aerated. The soft tissues of the scalp are unremarkable. IMPRESSION: No acute intracranial abnormality.
[2025-07-23 08:45] VITALS: BP 100/78; PULSE 91; TEMP 98.2
[2025-07-23 09:24] VITALS: RESP 18; O2SAT 99
[2025-07-23] MEDS: ALBUTEROL SULF 2.5 MG/0.5ML(0.5%) NEB SOLN NEB ONE (09:24)
[2025-07-23] MEDS: IPRATROPIUM BROM 0.5 MG/2.5ML INH SOL NEB ONE (09:24)
== END 2025-07-23 11:56 | disposition home or self-care (01) ==
LOC: ER 07:13 → EDBD 07:13 → ER 11:55
DX: R51.9 Headache, unspecified (principal); M54.2 Cervicalgia; I10 Essential (primary) hypertension; K21.9 Gastro-esophageal reflux disease without esophagitis; F17.210 Nicotine dependence, cigarettes, uncomplicated; F20.9 Schizophrenia, unspecified; J44.9 Chronic obstructive pulmonary disease, unspecified; Z87.440 Personal history of urinary (tract) infections; Z91.199 Patient's noncompliance with other medical treatment and regimen due to unspecified reason
CPT/HCPCS: 70450; 94640

== ENCOUNTER 2025-07-24 13:52 | Emergency (ER) | payer OTHER ==
[~2025-07-24] VITALS: Ht 154.9 cm; Wt 52.5 kg
[~2025-07-24 13:52] MED LIST changes: -ALBU108A5 IN; -ALBU1NEB5 IN; -AZIT500T66 PO; -CEPH250C PO; -DICY10CA PO; -IBUP-1454 PO; -LEVO500T91 PO; -PRED20TA2 PO; -TIOT17SP IN
[2025-07-24] MEDS: NALOXONE HCL 0.4 MG/ML VIAL ONE (14:10)
[2025-07-24] MEDS: NALOXONE HCL 1MG/ML 2ML SYRINGE ONE (14:10)
[2025-07-24] MEDS: NALOXONE HCL 1MG/ML 2ML SYRINGE IV ONE (14:15)
[2025-07-24 14:32] LABS: Potassium 5.0 mmol/L (3.5-5.1)
[2025-07-24 14:33] LABS: Anion Gap 7 (5-15); Hematocrit 42.9 % (36.0-46.0); Hemoglobin 14.3 g/dL (12.2-16.2); Mean Corpuscular Hemoglobin 32.5 pg (28.0-32.0); Mean Corpuscular Volume 97.5 fL (80.0-100.0); Nucleated Red Blood Cells % 0.0 %
[2025-07-24 14:34] LABS: Calcium 9.2 mg/dL (8.7-10.4)
[2025-07-24 14:38] LABS: Glucose 97 mg/dL (74-106)
[2025-07-24 14:39] LABS: BUN/Creatinine Ratio 10.5 (10.0-20.0)
[2025-07-24 14:48] LABS: Blood Urea Nitrogen 6 mg/dL (9-23); Carbon Dioxide 33 mmol/L (20-31); Chloride 95 mmol/L (98-107); Sodium 135 mmol/L (136-145)
--- NOTE | 2025-07-24 16:33 | DVH ---
CHEST RADIOGRAPH Indication: sob Technique: Single frontal view of the chest was obtained Comparison: XY CHEST PORTABLE on DOS: 07/19/25, XY CHEST PORTABLE on DOS: 07/16/25, XY CHEST PORTABLE on DOS: 07/15/25 FINDINGS: Lines and Tubes: None Lungs: No focal consolidation. Patient head superimposed over the upper mediastinum and upper lung renee bilaterally. Pleura: No effusion. No pneumothorax. Cardiomediastinal contours: Unremarkable Bones: No acute osseous abnormality. IMPRESSION: 1. No acute cardiopulmonary disease.
[2025-07-24 17:49] VITALS: PULSE 84; RESP 18; O2SAT 99
--- NOTE | 2025-07-24 18:21 | ED.PDOC ---
SOB-HPI HPI Comments 55 y.o female presents to the ED via EMS for a chief complaint of SOB. Patient is coming from [facility], state she was smoking a cigarette outside facility when SOB presented. SPO2 read 70% RA. Per EMS, patient ambulates around facility without oxygen, causing saturation to decrease but once placed on NC, her saturation levels improve. Patient is a poor historian. Has been seen at this facility multiple times including yesterday for a headache. 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: Denies all HANDSTITCHING MACHINE ARMHOLE FELLER Hx Family History Family History: Reviewed,noncontributory to illness Social History Smoker: Cigarettes Alcohol: Denies ETOH Use Drugs: Denies Drug Use Lives In: Assisted Care Constitutional: denies: chills, diaphoresis, fatigue, fever, malaise, sweats, weakness, others EENTM: denies: blurred vision, double vision, ear bleeding, ear discharge, ear drainage, ear pain, ear ringing, eye pain, eye redness, hearing loss, mouth pain, mouth swelling, nasal discharge, nose bleeding, nose congestion, nose pain, photophobia, tearing, throat pain, throat swelling, voice changes, others Respiratory: reports: SOB at rest, shortness of breath, SOB with excertion; denies: cough, hemoptysis, orthopnea, stridor, wheezing, others Cardiovascular: denies: chest pain, dizzy spells, diaphoresis, Dyspnea on exertion, edema, irregular heart beat, left arm pain, lightheadedness, palpitations, PND, syncope, others Gastrointestinal: denies: abdomen distended, abdominal pain, blood streaked bowels, constipated, diarrhea, dysphagia, difficulty swallowing, hematemesis, melena, nausea, poor appetite, poor fluid intake, rectal bleeding, rectal pain, vomiting, others Genitourinary: denies: abnormal vagina bleeding, burning, dyspareunia, dysuria, flank pain, frequency, hematuria, incontinence, pain, , vagina discharge, urgency, others Neurological: denies: dizziness, fainting, headache, left sided numbness, left sided weakness, numbness, paresthesia, pre-existing deficit, right sided numbness, right sided weakness, seizure, speech problems, tingling, tremors, weakness, others Musculoskeletal: denies: back pain, gout, joint pain, joint swelling, muscle pain, muscle stiffness, neck pain, others Integumetry: denies: bruises, change in color, change in hair/nails, dryness, laceration, lesions, lumps, rash, wounds, others Allergic/Immunocompromised: denies: Difficulty Healing, Frequent Infections, Hives, Itching, others Hematologic/Lymphatic: denies: anemia, blood clots, easy bleeding, easy bruising, swollen glands, others Endocrine: denies: excessive hunger, excessive sweating, excessive thirst, excessive urination, flushing, intolerance to cold, intolerance to heat, unexplained weight gain, unexplained weight loss, others Psychiatric: denies: anxiety, bipolar disorder, depression, hopeless, panic disorder, schizophrenia, sleepless, suicidal, others All Other Systems: Reviewed and Negative Physical Exam General Appearance: Mild Distress HEENT: Normal ENT Inspection, Pharynx Normal, TMs Normal Neck: Full Range of Motion, Non-Tender, Normal, Normal Inspection Respiratory: Crackles (bilaterally ) Cardiovascular: No Edema, No JVD, No Murmur, No Gallop, Normal Peripheral Pulses, Regular Rate/Rhythm Breast Exam: Deferred Gastrointestinal: No Organomegaly, Non Tender, No Pulsatile Mass, Normal Bowel Sounds, Soft Genitalia: Deferred Pelvic: Deferred Rectal: Deferred Extremities: No calf tenderness, Normal capillary refill, Normal inspection, Normal range of motion, Non-tender, No pedal edema Musculoskeletal : Apperance: Normal Neurologic: Alert, net software developer II-XII 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 Was a procedure done?: No Differential Dx Differential Diagnosis: Bronchitis, CHF, COPD, Pneumonia, Respiratory Distress, URI X-Ray, Labs, Meds, VS Vital Signs Date Time Temp Pulse Resp B/P (MAP) Pulse Ox O2 Delivery O2 Flow Rate FiO2 11/8/25 18:00 77 14 92/76 (81) 99 07/24/25 17:52 99 Nasal Cannula* 4 36 07/24/25 17:49 84 18 99 Nasal Cannula* 4 36 07/24/25 17:48 97.8 74 14 94/52 (66) 99 97.8 07/24/25 17:02 84 14 132/79 (96) 99 07/24/25 14:39 97.5 110 26 101/68 98 97.5 Lab Test 07/24/25 17:40 07/24/25 15:37 07/24/25 14:17 Range/Units Troponin I High Sensitivity 5 5 4 </=34 ng/L White Blood Count 2.7 L 4.4-10.8 10^3/uL Red Blood Count 4.40 4.0-5.20 10^6/uL Hemoglobin 14.3 12.2-16.2 g/dL Hematocrit 42.9 36.0-46.0 % Mean Corpuscular Volume 97.5 80.0-100.0 fL Mean Corpuscular Hemoglobin 32.5 H 28.0-32.0 pg Mean Corpuscular Hemoglobin Concent 33.3 32.0-36.0 g/dL Red Cell Distribution Width 15.7 H 11.8-14.3 % Platelet Count 65 L 140-450 10^3/uL Mean Platelet Volume 9.0 6.9-10.8 fL Neutrophils (%) (Auto) 75.1 37.0-80.0 % Lymphocytes (%) (Auto) 16.7 10.0-50.0 % Monocytes (%) (Auto) 7.8 0.0-12.0 % Eosinophils (%) (Auto) 0.1 0.0-7.0 % Basophils (%) (Auto) 0.3 0.0-2.0 % Neutrophils # (Auto) 2.1 1.6-8.6 10 ^3/uL Lymphocytes # (Auto) 0.5 0.4-5.4 10 ^3/uL Monocytes # (Auto) 0.2 0-1.3 10 ^3/uL Eosinophils # (Auto) 0 0-0.8 10 ^3/uL Basophils # (Auto) 0 0-0.2 10 ^3/uL Nucleated Red Blood Cells 0.0 % Sodium Level 135 #L 136-145 mmol/L Potassium Level 5.0 3.5-5.1 mmol/L Chloride Level 95 L 98-107 mmol/L Carbon Dioxide Level 33 H 20-31 mmol/L Anion Gap 7 5-15 Blood Urea Nitrogen 6 L 9-23 mg/dL Creatinine 0.57 0.550-1.02 mg/dL Glomerular Filtration Rate Calc 107 >90 mL/min BUN/Creatinine Ratio 10.5 10.0-20.0 Serum Glucose 97 74-106 mg/dL Calcium Level 9.2 8.7-10.4 mg/dL Current Medications Medications (Trade) Dose Ordered Sig/Elaine Route Start Time Stop Time Status Last Admin Naloxone HCl (Narcan) 2 mg ONCE ONCE IV 07/24/25 14:15 07/24/25 14:16 DC 07/24/25 14:15 [place] [address] Ph: [phone] DIAGNOSTIC IMAGING Diagnostic Imaging Report : [id number] Signed PATIENT: NATIVIDAD URBAN MACCT: [id number] UNIT: [id number] : 1970 LOC: ER ROOM / BED: / AGE / SEX: 55 / F ADM STATUS: REG ER SERVICE [id number] ORDERING PHYSICIAN: AISHWARYA HEREDIA MD PROCEDURE(s): CXRP - CHEST PORTABLE REASON: sob ORDER NUMBER(s): [id number], ACCESSION NUMBER(s): [id number] CHEST RADIOGRAPH Indication: sob Technique: Single frontal view of the chest was obtained Comparison: XY CHEST PORTABLE on DOS: 07/19/25, XY CHEST PORTABLE on DOS: 07/16/25, XY CHEST PORTABLE on DOS: 07/15/25 FINDINGS: Lines and Tubes: None Lungs: No focal consolidation. Patient head superimposed over the upper mediastinum and upper lung renee bilaterally. Pleura: No effusion. No pneumothorax. Cardiomediastinal contours: Unremarkable Bones: No acute osseous abnormality. IMPRESSION: 1. No acute cardiopulmonary disease. ATED BY: KITTY JEAN Jr., DO DICTATED DATE/TIME: 07/24/25 1631 SIGNED BY: KITTY JEAN Jr., SIGNED DATE/TIME: 07/24/25 1631 CC: Time of 1ST Reevaluation: 18:19 Reevaluation 1ST: Unchanged Patient Education/Counseling: Diagnosis, Treatment, Prognosis Family Education/Counseling: No Family Present SEPSIS Sepsis Screen Date sepsis recognized/suspect: Jul 24, 2025 Time Sepsis recognized/suspect: 175 Recent Procedure: No On Antibiotic Therapy: No Respiratory Rate >20: No Heart Rate >90: No Temp<36 C (96.8 F) or >38.3 C: No SBP <90 or MAP <65 mmHG: No New Acute Mental Status Change: No Is the patient on CPAP, BIPAP,: No Physician Orders Chest Portable (07/24/25 15:09) Vital Signs Date Time Temp Pulse Resp B/P (MAP) Pulse Ox O2 Delivery O2 Flow Rate FiO2 07/24/25 18:00 77 14 92/76 (81) 99 07/24/25 17:52 99 Nasal Cannula* 4 36 07/24/25 17:49 84 18 99 Nasal Cannula* 4 36 07/24/25 17:48 97.8 74 14 94/52 (66) 99 97.8 07/24/25 17:02 84 14 132/79 (96) 99 07/24/25 14:39 97.5 110 26 101/68 98 97.5 Laboratory Tests Test 07/24/25 14:17 White Blood Count 2.7 10^3/uL (4.4-10.8) L Medications Medications Dose Ordered Sig/Elaine Route Start Time Stop Time Status Last Admin Dose Admin Naloxone HCl 2 mg ONCE ONCE IV 07/24/25 14:15 07/24/25 14:16 DC 07/24/25 14:15 Departure 1 Departure Time of Disposition: 21:08 (Patient well known to the ER. Patient is at her baseline with now resolved shortness of breath) Impression: Primary Impression: COPD with acute exacerbation Disposition: 03 [facility]AY FACILITY Condition: Stable Additional Instructions: Please continue to take your regular medications. Critical Care Note Critical Care Time?: No Stability Stability form required: No I personally scribed for AISHWARYA HEREDIA MD ([email or web address]) on 07/24/25 at 18:21. Electronically submitted by Lizzy Cristobal ([facility]). AISHWARYA HEREDIA MD Jul 24, 2025 18:21
[2025-07-24 19:35] VITALS: RESP 17; TEMP 98.2; O2SAT 99
[2025-07-25 03:15] VITALS: BP 105/53; PULSE 73; RESP 20; O2SAT 98
== END 2025-07-25 03:30 | disposition home or self-care (01) ==
LOC: EDBD 13:52 → ER 13:52
DX: J44.1 Chronic obstructive pulmonary disease with (acute) exacerbation (principal); F17.210 Nicotine dependence, cigarettes, uncomplicated; F20.9 Schizophrenia, unspecified; I10 Essential (primary) hypertension; K21.9 Gastro-esophageal reflux disease without esophagitis; Z87.440 Personal history of urinary (tract) infections
CPT/HCPCS: 36415; 71045; 80048; 84484; 85025; 96374; 99285; J2312

== ENCOUNTER 2025-07-25 05:38 | Inpatient (IN) | payer OTHER ==
[~2025-07-25] VITALS: Ht 157.5 cm; Wt 43.8 kg
--- NOTE | 2025-07-25 06:28 | ED.PDOC ---
SOB-HPI HPI Comments 55 y/o F, with PMHx of schizophrenia and COPD presents to the ED for CC of shortness of breath. Patient states, she has been experiencing shortness of breath with associated substernal chest pain x1day. Patient reports, to have a productive cough with "white" septum. Patient is on continuos oxygen at home via [place] at 2-4Lpm. Patient denies fever, chills, palpitations, fatigue, weakness, or loss of taste and smell. Chief Complaint: Shortness of Breath Time Seen by MD: 06:20 Primary Care Provider: UNKNOWN Reviewed notes: Nurses Notes, Medications, Allergies Information Source: Patient Mode of Arrival: EMS Severity: Moderate Timing: Days Duration: Since onset Context: At Rest PE Risk Factors: None History of: COPD Prehospital treatment: None Modifying Factors: Nothing Associated Signs and Symptoms: Cough, Chest Pain Quality: Other (dull) Location: Substernal If cough with SOB: Productive, White Past Medical History PAST MEDICAL HISTORY: COPD, Gallstones, GERD, HTN, Schizophrenia, UTI'S Surgical History: Denies all surgeries BILINGUAL INSTRUCTOR History: Denies all BILINGUAL INSTRUCTOR Hx Family History Family History: Reviewed,noncontributory to illness Social History Smoker: Cigarettes Alcohol: Denies ETOH Use Drugs: Denies Drug Use Lives In: Assisted Care Constitutional: denies: chills, diaphoresis, fatigue, fever, malaise, sweats, weakness, others EENTM: denies: blurred vision, double vision, ear bleeding, ear discharge, ear drainage, ear pain, ear ringing, eye pain, eye redness, hearing loss, mouth pain, mouth swelling, nasal discharge, nose bleeding, nose congestion, nose pain, photophobia, tearing, throat pain, throat swelling, voice changes, others Respiratory: reports: cough, shortness of breath; denies: hemoptysis, orthopnea, SOB at rest, SOB with excertion, stridor, wheezing, others Cardiovascular: reports: chest pain; denies: dizzy spells, diaphoresis, Dyspnea on exertion, edema, irregular heart beat, left arm pain, lightheadedness, palpitations, PND, syncope, others Gastrointestinal: denies: abdomen distended, abdominal pain, blood streaked bowels, constipated, diarrhea, dysphagia, difficulty swallowing, hematemesis, melena, nausea, poor appetite, poor fluid intake, rectal bleeding, rectal pain, vomiting, others Genitourinary: denies: abnormal vagina bleeding, burning, dyspareunia, dysuria, flank pain, frequency, hematuria, incontinence, pain, , vagina discharge, urgency, others Neurological: denies: dizziness, fainting, headache, left sided numbness, left sided weakness, numbness, paresthesia, pre-existing deficit, right sided numbness, right sided weakness, seizure, speech problems, tingling, tremors, weakness, others Musculoskeletal: denies: back pain, gout, joint pain, joint swelling, muscle pain, muscle stiffness, neck pain, others Integumetry: denies: bruises, change in color, change in hair/nails, dryness, laceration, lesions, lumps, rash, wounds, others Allergic/Immunocompromised: denies: Difficulty Healing, Frequent Infections, Hives, Itching, others Hematologic/Lymphatic: denies: anemia, blood clots, easy bleeding, easy bruising, swollen glands, others Endocrine: denies: excessive hunger, excessive sweating, excessive thirst, excessive urination, flushing, intolerance to cold, intolerance to heat, unexp lained weight gain, unexplained weight loss, others Psychiatric: denies: anxiety, bipolar disorder, depression, hopeless, panic disorder, schizophrenia, sleepless, suicidal, others All Other Systems: Reviewed and Negative Physical Exam General Appearance: Moderate Distress HEENT: Normal ENT Inspection, Pharynx Normal, TMs Normal Neck: Full Range of Motion, Non-Tender, Normal, Normal Inspection Respiratory: Chest Non-Tender, Lungs Clear, No Accessory Muscle Use, No Respiratory Distress, Normal Breath Sounds Cardiovascular: No Edema, No JVD, No Murmur, No Gallop, Normal Peripheral Pulses, Regular Rate/Rhythm Breast Exam: Deferred Gastrointestinal: No Organomegaly, Non Tender, No Pulsatile Mass, Normal Bowel Sounds, Soft Genitalia: Deferred Pelvic: Deferred Rectal: Deferred Extremities: No calf tenderness, Normal capillary refill, Normal inspection, Normal range of motion, Non-tender, No pedal edema Musculoskeletal : Apperance: Normal Neurologic: Alert, grocery sacker II-XII nml as Tested, No Motor Deficits, Normal Affect, Normal Mood, No Sensory Deficits Cerebellar Function: Normal Reflexes: Normal Skin: Dry, Normal Color, Warm Lymphatic: No Adenopathy EKG EKG : Pulse Rate (adult): 90 [place]: Normal Cardiac Rhythm: NSR Block: None ST: Nonsp Was a procedure done? Was a procedure done?: No Differential Dx Differential Diagnosis: Bronchitis, COPD, Pneumonia, Sinusitis, Pharyngitis, URI X-Ray, Labs, Meds, VS Vital Signs Date Time Temp Pulse Resp B/P (MAP) Pulse Ox O2 Delivery O2 Flow Rate FiO2 07/25/25 10:08 90 07/25/25 09:00 98.3 94 20 106/79 (88) 99 98.3 07/25/25 05:53 98.3 90 22 113/80 96 98.3 07/25/25 05:52 90 Lab Test 07/25/25 09:56 07/25/25 08:50 Range/Units Troponin I High Sensitivity Pending White Blood Count 3.3 L 4.4-10.8 10^3/uL Red Blood Count 5.03 4.0-5.20 10^6/uL Hemoglobin 15.9 12.2-16.2 g/dL Hematocrit 48.2 #H 36.0-46.0 % Mean Corpuscular Volume 95.7 80.0-100.0 fL Mean Corpuscular Hemoglobin 31.5 28.0-32.0 pg Mean Corpuscular Hemoglobin Concent 32.9 32.0-36.0 g/dL Red Cell Distribution Width 15.8 H 11.8-14.3 % Platelet Count 85 L 140-450 10^3/uL Mean Platelet Volume 8.9 6.9-10.8 fL Neutrophils (%) (Auto) 63.3 37.0-80.0 % Lymphocytes (%) (Auto) 26.6 10.0-50.0 % Monocytes (%) (Auto) 9.1 0.0-12.0 % Eosinophils (%) (Auto) 0.6 0.0-7.0 % Basophils (%) (Auto) 0.4 0.0-2.0 % Neutrophils # (Auto) 2.1 1.6-8.6 10 ^3/uL Lymphocytes # (Auto) 0.9 0.4-5.4 10 ^3/uL Monocytes # (Auto) 0.3 0-1.3 10 ^3/uL Eosinophils # (Auto) 0 0-0.8 10 ^3/uL Basophils # (Auto) 0 0-0.2 10 ^3/uL Nucleated Red Blood Cells 0.2 % Sodium Level Pending Potassium Level Pending Chloride Level Pending Carbon Dioxide Level Pending Anion Gap Pending Blood Urea Nitrogen Pending Creatinine Pending Glomerular Filtration Rate Calc Pending BUN/Creatinine Ratio Pending Serum Glucose Pending Calcium Level Pending B-Type Natriuretic Peptide Pending CXY Shows: IMPRESSION: 1. No evidence of acute disease in the chest. 2. Emphysematous changes. The patient's CBC is within normal limits. Images Reviewed?: Images reviewed and evaluated by me Time of 1ST Reevaluation: 06:50 Reevaluation 1ST: Unchanged Patient Education/Counseling: Diagnosis, Treatment, Prognosis Family Education/Counseling: No Family Present SEPSIS Sepsis Screen Date sepsis recognized/suspect: Jul 25, 2025 Time Sepsis recognized/suspect: 600 Recent Procedure: No On Antibiotic Therapy: No Respiratory Rate >20: No Heart Rate >90: No Temp<36 C (96.8 F) or >38.3 C: No SBP <90 or MAP <65 mmHG: No New Acute Mental Status Change: No Is the patient on CPAP, BIPAP,: No Physician Orders Troponin-I Hs (07/25/25 06:27) B-Type Natriuretic Peptide (07/25/25 06:27) Urinalysis (07/25/25 06:27) Chest Portable (07/25/25 06:27) Heplock Iv (07/25/25 06:27) Pulse Oximetry (07/25/25 06:27) Oxygen (07/25/25 06:27) Cotton Presser (07/25/25 06:27) Blood Pressure (07/25/25 06:27) Basic Metabolic Panel (07/25/25 06:27) Covid19 Antigen Zoë (07/25/25 ) Rapid Influenza A&B (07/25/25 06:27) Troponin-I Hs (07/25/25 07:27) Troponin-I Hs (07/25/25 09:27) Vital Signs Date Time Temp Pulse Resp B/P (MAP) Pulse Ox O2 Delivery O2 Flow Rate FiO2 07/25/25 10:08 90 07/25/25 09:00 98.3 94 20 106/79 (88) 99 98.3 07/25/25 05:53 98.3 90 22 113/80 96 98.3 07/25/25 05:52 90 Laboratory Tests Test 07/25/25 08:50 White Blood Count 3.3 10^3/uL (4.4-10.8) L Departure 1 Departure Time of Disposition: 10:07 Impression: Primary Impression: Acute myocardial ischemia Disposition: 09 ADMITTED INPATIENT Admit to: Tele Condition: Fair Critical Care Note Critical Care Time?: Yes (45 min-critical care time only) Stability Stability form required: Yes Unstable for transfer: Telemetry monitoring (Telemetry monitoring required), ED Physician Assesment (Clinical assesment) Heart Score Heart Score: Heart Score Response (Comments) Value History Moderate Suspicious 1 EKG Repolarization Disturb 1 Age 45-64 1 Risk Factors 1 or 2 risk factors 1 Troponin Normal limit 0 Total 4 I personally scribed for RACQUEL WOODSON MD ([email or web address]) on 07/25/25 at 06:28. Electronically submitted by Muna Verdugo ([email or web address]). I personally scribed for RACQUEL WOODSON MD ([email or web address]) on 07/25/25 at 07:47. Electronically submitted by Muna Verdugo ([email or web address]). RACQUEL WOODSON MD Jul 25, 2025 06:28
--- NOTE | 2025-07-25 06:36 | ECG ---
[facility] Test Date: 2025-07-25 Test Time: 05:52:59 Pat Name: NATIVIDAD URBAN Department: [facility] ED Room: [address] [place] [address] Gender: F Mold Holder: EMIR : 1970 Requested By: EMERGENCY EMERGENCY Order Number: [id number] Reading MD: Guanaco Camacho Measurements Intervals [place] Rate: 90 P: 87 MA: 131 QRS: 89 QRSD: 85 T: 71 QT: 350 QTc: 429 Interpretive Statements Sinus rhythm Anteroseptal infarct, age indeterminate Electronically Signed On 07-26-2025 10:58:47 PST by Guanaco Camacho Please click the below link to view image of tracing.
--- NOTE | 2025-07-25 07:45 | DVH ---
CLINICAL INFORMATION: Chest pain. TECHNIQUE: Single AP portable chest radiograph was obtained. COMPARISON: XY CHEST PORTABLE on DOS: 07/24/25, XY CHEST PORTABLE on DOS: 07/19/25, XY CHEST PORTABLE on DOS: 07/16/25 FINDINGS: Lungs: Hyperaeration of the lungs with flattening of the diaphragm suggesting emphysematous changes. No focal consolidation. No pneumothorax or pleural effusion visualized. Cardiac: Heart size is within normal limits. Pulmonary vasculature: Unremarkable. Mediastinum/giorgio: Unremarkable. Bones: No acute osseous abnormality identified. Other: No other significant findings. IMPRESSION: 1. No evidence of acute disease in the chest. 2. Emphysematous changes.
[2025-07-25 09:14] LABS: Hematocrit 48.2 % (36.0-46.0); Hemoglobin 15.9 g/dL (12.2-16.2); Mean Corpuscular Hemoglobin 31.5 pg (28.0-32.0); Mean Corpuscular Volume 95.7 fL (80.0-100.0); Nucleated Red Blood Cells % 0.2 %
[2025-07-25] MEDS ORDERED: HYDROcodone-ACET 5/325MG TAB PO PRN ×2 (11:15→12:00)
[2025-07-25] MEDS ORDERED: DOCUSATE SOD 100 MG CAP PO PRN (11:15)
[2025-07-25] MEDS ORDERED: NITROGLYCERIN 0.4 MG SL TAB SL PRN ×2 (11:15→12:00)
[2025-07-25] MEDS ORDERED: ONDANSETRON HCL 4 MG/2 ML VIAL IV PRN ×2 (11:15→12:00)
[2025-07-25] MEDS ORDERED: ACETAMINOPHEN 325 MG TAB PO PRN ×2 (11:15→12:00)
[2025-07-25] MEDS ORDERED: ENOXAPARIN SOD 40 MG/0.4 ML SYRINGE SC SCH (11:15)
[2025-07-25] MEDS ORDERED: MORPHINE SULFATE INJ 2 MG/ml SYRG IV PRN (11:15)
[2025-07-25] MEDS ORDERED: ALBUTEROL SULF 2.5 MG/0.5ML(0.5%) NEB SOLN NEB PRN (11:15)
--- NOTE | 2025-07-25 11:16 | DVHHP2 ---
Review of Systems Allergies: Coded Allergies: Lactose (Verified Allergy, Severe, 11/15/24) Erythromycin (Verified Allergy, Intermediate, 07/19/25) Exam Vital Signs Vital Signs Date Time Temp Pulse Resp B/P (MAP) Pulse Ox O2 Delivery O2 Flow Rate FiO2 07/25/25 10:08 90 07/25/25 09:00 98.3 20 106/79 (88) 99 98.3 Labs/Xrays Labs Test 07/25/25 09:56 07/25/25 08:50 Range/Units White Blood Count 3.3 L 4.4-10.8 10^3/uL Red Blood Count 5.03 4.0-5.20 10^6/uL Hemoglobin 15.9 12.2-16.2 g/dL Hematocrit 48.2 #H 36.0-46.0 % Mean Corpuscular Volume 95.7 80.0-100.0 fL Mean Corpuscular Hemoglobin 31.5 28.0-32.0 pg Mean Corpuscular Hemoglobin Concent 32.9 32.0-36.0 g/dL Red Cell Distribution Width 15.8 H 11.8-14.3 % Platelet Count 85 L 140-450 10^3/uL Mean Platelet Volume 8.9 6.9-10.8 fL Neutrophils (%) (Auto) 63.3 37.0-80.0 % Lymphocytes (%) (Auto) 26.6 10.0-50.0 % Monocytes (%) (Auto) 9.1 0.0-12.0 % Eosinophils (%) (Auto) 0.6 0.0-7.0 % Basophils (%) (Auto) 0.4 0.0-2.0 % Neutrophils # (Auto) 2.1 1.6-8.6 10 ^3/uL Lymphocytes # (Auto) 0.9 0.4-5.4 10 ^3/uL Monocytes # (Auto) 0.3 0-1.3 10 ^3/uL Eosinophils # (Auto) 0 0-0.8 10 ^3/uL Basophils # (Auto) 0 0-0.2 10 ^3/uL Nucleated Red Blood Cells 0.2 % SEPSIS Sepsis Screen Date sepsis recognized/suspect: Jul 25, 2025 Time Sepsis recognized/suspect: 06 Recent Procedure: No On Antibiotic Therapy: No Respiratory Rate >20: No Heart Rate >90: No Temp<36 C (96.8 F) or >38.3 C: No SBP <90 or MAP <65 mmHG: No New Acute Mental Status Change: No Is the patient on CPAP, BIPAP,: No Physician Orders Troponin-I Hs (07/25/25 06:27) B-Type Natriuretic Peptide (07/25/25 06:27) Urinalysis (07/25/25 06:27) Chest Portable (07/25/25 06:27) Heplock Iv (07/25/25 06:27) Pulse Oximetry (07/25/25 06:27) Oxygen (07/25/25 06:27) Occupational Therapy Professor (07/25/25 06:27) Blood Pressure (07/25/25 06:27) Basic Metabolic Panel (07/25/25 06:27) Covid19 Antigen Zoë (07/25/25 ) Rapid Influenza A&B (07/25/25 06:27) Troponin-I Hs (07/25/25 07:27) Troponin-I Hs (07/25/25 09:27) Admit (07/25/25 11:10) Code Status (07/25/25 11:10) 2 Gm Sodium Diet (07/25/25 Lunch) Hydrocodone-Acet 5/325mg Tab (Chandler (07/25/25 11:15) Ondansetron Hcl (Zofran) (07/25/25 11:15) Docusate Sodium Capsule (Colace Capsule) (07/25/25 11:15) Condition: Fair (07/25/25 11:10) Acetaminophen Tablet (Tylenol Tablet) (07/25/25 11:15) Lovenox 40mg (07/25/25 11:15) Nitroglycerin Sublingual (Ntrostat Subli (07/25/25 11:15) Morphine Sulfate Injection (07/25/25 11:15) Stat Ekg For Chest Pain (07/25/25 11:10) Notify Of Changes From Base (07/25/25 11:10) Cotton Tier For 24 Hours (07/25/25 11:10) Emergency Dysrhythmia Protocol (07/25/25 11:10) Rhythm Strips Once Every Shift (07/25/25 11:10) Oxygen By Nasal Cannula (07/25/25 11:10) Haloperidol Tablet (Haldol Tablet) (07/25/25 22:00) Trazodone Hcl (Desyrel) (07/25/25 22:00) Albuterol Medneb (Ventolin Medneb) (07/25/25 11:15) Vital Signs Date Time Temp Pulse Resp B/P (MAP) Pulse Ox O2 Delivery O2 Flow Rate FiO2 07/25/25 10:08 90 07/25/25 09:00 98.3 94 20 106/79 (88) 99 98.3 07/25/25 05:53 98.3 90 22 113/80 96 98.3 07/25/25 05:52 90 Laboratory Tests Test 07/25/25 08:50 White Blood Count 3.3 10^3/uL (4.4-10.8) L Assessment/Plan My Orders Orders - RHYS GAMBINO Procedure Category Date Status Time Admit ADMIT 07/25/25 Verified 11:10 Code Status CODE 07/25/25 Verified 11:10 2 Gm Sodium Diet DIET 07/25/25 Verified Lunch Hydrocodone-Acet PHA 07/25/25 Verified 5/325mg Tab (Chandler 11:15 Ondansetron Hcl PHA 07/25/25 Verified (Zofran) 11:15 Docusate Sodium PHA 07/25/25 Verified Capsule (Colace 11:15 Condition: Fair [facility] 07/25/25 Verified 11:10 Acetaminophen Tablet PHA 07/25/25 Verified (Tylenol Tablet) 11:15 Lovenox 40mg PHA 07/25/25 Verified 11:15 Nitroglycerin PHA 07/25/25 Verified Sublingual (Ntrostat 11:15 Morphine Sulfate PHA 07/25/25 Verified Injection 11:15 Stat Ekg For Chest [facility] 07/25/25 Verified Pain 11:10 Notify Md Of Changes [facility] 07/25/25 Verified From Base 11:10 Cotton Tier For [facility] 07/25/25 Verified 24 Hours 11:10 Emergency Dysrhythmia [facility] 07/25/25 Verified Protocol 11:10 Rhythm Strips Once [facility] 07/25/25 Verified Every Shift 11:10 Oxygen By Nasal RT 07/25/25 Verified Cannula 11:10 Haloperidol Tablet PHA 07/25/25 Verified (Haldol Tablet) 22:00 Trazodone Hcl PHA 07/25/25 Verified (Desyrel) 22:00 Albuterol Medneb PHA 07/25/25 Verified (Ventolin Medneb) 11:15 [facility] Jul 25, 2025 11:16
[2025-07-25] MEDS ORDERED: MORPHINE SULFATE 4 MG/ML SYR/VIAL IV PRN ×2 (12:15)
[2025-07-25 16:54] VITALS: BP 140/68; PULSE 100; RESP 18; O2SAT 97
[2025-07-25 17:46] VITALS: PULSE 88; RESP 18; O2SAT 98
[2025-07-25] MEDS: BUDESONIDE (INHALATION) 0.5 MG/2 ML NEB NEB SCH (17:46)
[2025-07-25] MEDS: ALBUTEROL SULF 2.5 MG/0.5ML(0.5%) NEB SOLN NEB PRN (17:46)
[2025-07-25 17:52] VITALS: PULSE 89; RESP 18; O2SAT 100
[2025-07-25] MEDS ORDERED: HALOPERIDOL 5 MG TAB PO SCH (22:00)
[2025-07-25] MEDS ORDERED: DOXYCYCLINE 100 MG TAB/CAP PO SCH (22:00)
[2025-07-25] MEDS ORDERED: BUDESONIDE (INHALATION) 0.5 MG/2 ML NEB NEB SCH (22:00)
[2025-07-26] VITALS (14 sets, daily range): BP systolic 94–131; BP diastolic 55–90; PULSE 75–104; RESP 16–25; TEMP 97.5–97.9; O2SAT 58–100
[2025-07-26 09:25] LABS: Alanine Aminotransferase 13 U/L (7-40); Albumin 4.3 g/dL (3.2-4.8); Alkaline Phosphatase 92 U/L (46-116); Anion Gap 10 (5-15); BUN/Creatinine Ratio 19.5 (10.0-20.0); Calcium 9.5 mg/dL (8.7-10.4); Chloride 99 mmol/L (98-107); Glucose 97 mg/dL (74-106); Potassium 4.4 mmol/L (3.5-5.1); Sodium 143 mmol/L (136-145); Total Protein 6.1 g/dL (5.7-8.2)
[2025-07-26 09:26] LABS: Bilirubin, Total 0.4 mg/dL (0.2-1.0); Blood Urea Nitrogen 8 mg/dL (9-23); Carbon Dioxide 34 mmol/L (20-31)
[2025-07-26] MEDS ORDERED: ENOXAPARIN SOD 40 MG/0.4 ML SYRINGE SC SCH (10:00)
[2025-07-26 11:10] LABS: Hematocrit 46.8 % (36.0-46.0); Hemoglobin 15.5 g/dL (12.2-16.2); Mean Corpuscular Hemoglobin 32.0 pg (28.0-32.0); Mean Corpuscular Volume 96.5 fL (80.0-100.0); Nucleated Red Blood Cells % 0.1 %
--- NOTE | 2025-07-26 14:33 | DVHHP2 ---
History of Present Illness HPI 55 y/o F, with PMHx of schizophrenia and COPD presents to the ED for CC of shortness of breath. Patient states, she has been experiencing shortness of breath with associated substernal chest pain x1day. Patient reports, to have a productive cough with "white" septum. Patient is on continuos oxygen at home via [place] at 2-4Lpm. Patient denies fever, chills, palpitations, fatigue, weakness, or loss of taste and smell. Home Meds Active Scripts Albuterol Sulfate (Ventolin) 2 Mg/5 Ml Sr, 5 ML PO TID PRN for 30 Days, #150 ML 3 Refills Prov:SUADAM Wang Abel DO 07/21/25 Azithromycin (Azithromycin) 250 Mg Tab, 250 MG PO DAILY MDD 500 for 5 Days, #6 TAB 0 Refills 2 TABLETS ORALLY ON DAY ONE, THEN 1 TABLET ORALLY DAILY FOR 4 DAYS Prov:LIZETTE SUMY Abel DO 07/21/25 Loperamide Hcl (Imodium) 2 Mg Cp, 2 MG PO Q6HPRN PRN for 30 Days, #10 CAP Prov:JOYA PLATT REBEAMER 06/22/25 Divalproex Sodium (Divalproex Sodium) 500 Mg Tab, 500 MG PO BID for 30 Days, #60 MG Prov:JOYA PLATT REBEAMER 05/19/25 Haloperidol (Haldol) 5 Mg Tb, 3 MG PO BID for 30 Days, #60 MG Prov:JOYA PLATT REBEAMER 05/19/25 Benztropine Mesylate (Benztropine Mesylate) 1 Mg Tab, 1 MG PO BID for 30 Days, #60 MG Prov:JOYA PLATT REBEAMER 05/19/25 Trazodone Hcl (Trazodone Hcl) 50 Mg Tab, 75 MG PO HS for 30 Days, #45 MG Prov:JOYA PLATT REBEAMER 05/19/25 Reported Medications Haloperidol (Haldol) 5 Mg Tb, 5 MG PO BID, MG 07/19/25 Ondansetron Odt 4MG Tab (ZOFRAN PO) 4 Mg Tb, 4 MG PO, TAB ODT TAB-DISSOLVE IN MOUTH, THEN SWALLOW 07/16/25 Naproxen (NAPROSYN TABLET) 500 Mg Tb, 1 TAB PO BID, #60 TAB 1 Refill 07/16/25 Acetaminophen (Tylenol Extra Strength) 500 Mg Tab, 500 MG PO, TAB 07/16/25 Fluticasone-Salmeterol (Advair Diskus 250/50) 1 Puff Ih, 1 PUFF INH BID, #3 INHALER 3 Refills 07/16/25 Dextromethorphan-Guaifenesin (Tussin Dm Cough & Chest C 20-200 mg/20Ml) 1 Liq Liq, 1 LIQ PO, LIQ 07/16/25 Quetiapine Fumerate (Seroquel) 50 Mg Tab, 1 TAB PO QPM, #30 TAB 2 Refills 07/16/25 Pantoprazole Sodium (PANTOPRAZOLE SODIUM) 40 Mg Inj, 40 MG PO DAILY, INJ 07/16/25 Past Medical History Patient Family History: Anxiety disorder FH: COPD (chronic obstructive pulmonary disease) FH: schizophrenia Review of Systems Constitutional: No symptom reported Pulmonary/Respiratory: No symptom reported Cardiovascular: No symptom reported Gastrointestinal: No symptom reported H&P Exam Vital Signs Vital Signs Date Time Temp Pulse Resp B/P (MAP) Pulse Ox O2 Delivery O2 Flow Rate FiO2 07/26/25 13:46 100 18 97 07/26/25 13:40 Nasal Cannula* 2 28 07/26/25 12:00 101/71 (81) 07/26/25 08:08 97.6 97.6 General Appeara: Well developed, Well nourished SEPSIS Sepsis Screen Date sepsis recognized/suspect: Jul 25, 2025 Time Sepsis recognized/suspect: 2009 Recent Procedure: No On Antibiotic Therapy: No Respiratory Rate >20: No Heart Rate >90: No Temp<36 C (96.8 F) or >38.3 C: No SBP <90 or MAP <65 mmHG: No New Acute Mental Status Change: No Is the patient on CPAP, BIPAP,: No Vital Signs Date Time Temp Pulse Resp B/P (MAP) Pulse Ox O2 Delivery O2 Flow Rate FiO2 07/26/25 13:46 100 18 97 07/26/25 13:40 98 Nasal Cannula* 2 28 07/26/25 13:40 98 Nasal Cannula 2.0 07/26/25 13:40 101 16 98 07/26/25 12:00 98 07/26/25 12:00 84 20 101/71 (81) 100 07/26/25 10:06 95 22 107/54 (71) 100 07/26/25 08:10 79 07/26/25 08:10 81 21 100 Nasal Cannula* 4 36 07/26/25 08:08 97.6 81 21 99/62 (74) 100 97.6 07/26/25 07:38 67 20 133/57 (82) 98 07/26/25 06:33 104 18 94 07/26/25 06:24 88 Room Air 0.0 07/26/25 06:24 104 22 88 07/26/25 06:24 88 Room Air* 0 21 Laboratory Tests Test 07/26/25 10:38 White Blood Count 3.2 10^3/uL (4.4-10.8) L Labs/Xrays Labs Test 07/26/25 10:38 07/26/25 08:43 Range/Units White Blood Count 3.2 L 4.4-10.8 10^3/uL Red Blood Count 4.85 4.0-5.20 10^6/uL Hemoglobin 15.5 12.2-16.2 g/dL Hematocrit 46.8 H 36.0-46.0 % Mean Corpuscular Volume 96.5 80.0-100.0 fL Mean Corpuscular Hemoglobin 32.0 28.0-32.0 pg Mean Corpuscular Hemoglobin Concent 33.2 32.0-36.0 g/dL Red Cell Distribution Width 16.3 H 11.8-14.3 % Platelet Count 101 L 140-450 10^3/uL Mean Platelet Volume 9.6 6.9-10.8 fL Neutrophils (%) (Auto) 60.0 37.0-80.0 % Lymphocytes (%) (Auto) 28.0 10.0-50.0 % Monocytes (%) (Auto) 11.3 0.0-12.0 % Eosinophils (%) (Auto) 0.6 0.0-7.0 % Basophils (%) (Auto) 0.1 0.0-2.0 % Neutrophils # (Auto) 1.9 1.6-8.6 10 ^3/uL Lymphocytes # (Auto) 0.9 0.4-5.4 10 ^3/uL Monocytes # (Auto) 0.4 0-1.3 10 ^3/uL Eosinophils # (Auto) 0 0-0.8 10 ^3/uL Basophils # (Auto) 0 0-0.2 10 ^3/uL Nucleated Red Blood Cells 0.1 % Sodium Level 143 # 136-145 mmol/L Potassium Level 4.4 3.5-5.1 mmol/L Chloride Level 99 98-107 mmol/L Carbon Dioxide Level 34 H 20-31 mmol/L Anion Gap 10 5-15 Blood Urea Nitrogen 8 L 9-23 mg/dL Creatinine 0.41 L 0.550-1.02 mg/dL Glomerular Filtration Rate Calc 115 >90 mL/min BUN/Creatinine Ratio 19.5 10.0-20.0 Serum Glucose 97 74-106 mg/dL Calcium Level 9.5 8.7-10.4 mg/dL Total Bilirubin 0.4 0.2-1.0 mg/dL Aspartate Amino Transferase (AST) 22 13-40 U/L Alanine Aminotransferase (ALT) 13 7-40 U/L Alkaline Phosphatase 92 46-116 U/L Total Protein 6.1 5.7-8.2 g/dL Albumin 4.3 3.2-4.8 g/dL Assessment/Plan Primary Diagnosis LATE NOTE FOR SERVICES RENDED ON 07/25/25 55 y/o F, with PMHx of schizophrenia and COPD presents to the ED for CC of shortness of breath. Patient states, she has been experiencing shortness of breath with associated substernal chest pain x1day. Patient reports, to have a productive cough with "white" septum. Patient is on continuos oxygen at home via [place] at 2-4Lpm. Patient denies fever, chills, palpitations, fatigue, weakness, or loss of taste and smell. suspected pna (bacterial gram pos/gram neg) acute hypoxic resp failure hx of COPD chronic hypoxia schizophrenia depression seizure hx started on empirical iv abx supplemental O2 Plan discussed with: Patient ADAM SU Jul 26, 2025 14:33
--- NOTE | 2025-07-26 14:39 | DVHPN2 ---
Progress Note Date Seen: Jul 26, 2025 Medical Necessity Reason Pt with a Central, PICC or Fol: No Subjective Review of Systems: HEENT:Normal, CVS:Normal, RESPIRATORY:Normal Objective vital signs Vital Sign Date Time Temp Pulse Resp B/P (MAP) Pulse Ox O2 Delivery O2 Flow Rate FiO2 07/26/25 13:46 100 18 97 07/26/25 13:40 Nasal Cannula* 2 28 07/26/25 12:00 101/71 (81) 07/26/25 08:08 97.6 97.6 medications Current Medications Medications Dose Ordered Sig/Elaine Route Start Time Stop Time Status Last Admin Dose Admin Acetaminophen/ Hydrocodone Bitart 1 tab Q4HP PRN PO 07/25/25 11:15 UNV Ondansetron HCl 4 mg Q4HP PRN IV 07/25/25 11:15 UNV Docusate Sodium 100 mg BIDPRN PRN PO 07/25/25 11:15 UNV Acetaminophen 650 mg Q6HP PRN PO 07/25/25 11:15 UNV Enoxaparin Sodium 40 mg DAILY SC 07/25/25 11:15 UNV Nitroglycerin 0.4 mg Q5MINP PRN SL 07/25/25 11:15 UNV Morphine Sulfate 2 mg Q30M PRN IV 07/25/25 11:15 UNV Haloperidol 3 mg BID PO 07/25/25 22:00 UNV Trazodone HCl 75 mg HS PO 07/25/25 22:00 UNV Albuterol 2.5 mg Q4HPRN PRN NEB 07/25/25 11:15 UNV Budesonide 0.5 mg BID NEB 07/25/25 22:00 UNV Doxycycline Monohydrate 100 mg Q12HR PO 07/25/25 22:00 UNV Acetaminophen/ Hydrocodone Bitart 1 tab Q4HP PRN PO 07/25/25 12:00 Ondansetron HCl 4 mg Q4HP PRN IV 07/25/25 12:00 Enoxaparin Sodium 40 mg DAILY SC 07/26/25 10:00 Hold Acetaminophen 650 mg Q6HP PRN PO 07/25/25 12:00 Morphine Sulfate 2 mg Q4HPRN PRN IV 07/25/25 12:15 Nitroglycerin 0.4 mg Q5MINP PRN SL 07/25/25 12:00 Morphine Sulfate 2 mg Q30M PRN IV 07/25/25 12:15 Budesonide 0.5 mg BID NEB 07/25/25 22:00 07/26/25 06:28 0.5 MG Albuterol 2.5 mg Q4HPRN PRN NEB 07/25/25 17:00 07/26/25 13:59 2.5 MG Examination: GENERAL:Normal, HEENT:Normal, NECK:Normal, LUNGS:Normal laboratory and microbiology Laboratory Tests 07/26/25 10:38 07/26/25 08:43 Test 07/26/25 08:43 Range/Units Serum Glucose 97 74-106 mg/dL Labs and/or images reviewed: Labs reviewed by me, Image(s) reviewed by me Problem List/Assessment/Plan Problem List/Assessment/Plan LATE NOTE FOR SERVICES RENDED ON 07/25/25 55 y/o F, with PMHx of schizophrenia and COPD presents to the ED for CC of shortness of breath. Patient states, she has been experiencing shortness of breath with associated substernal chest pain x1day. Patient reports, to have a productive cough with "white" septum. Patient is on continuos oxygen at home via [place] at 2-4Lpm. Patient denies fever, chills, palpitations, fatigue, weakness, or loss of taste and smell. suspected pna (bacterial gram pos/gram neg) acute hypoxic resp failure hx of COPD chronic hypoxia schizophrenia depression seizure hx started on empirical iv abx supplemental O2 Plan discussed with: Patient My Orders My Orders Orders - ADAM SU DO Procedure Category Date Status Time Budesonide PHA 07/25/25 In Process (Inhalation) 22:00 Albuterol Medneb PHA 07/25/25 In Process (Ventolin Medneb) 17:00 ADAM SU DO Jul 26, 2025 14:39
[2025-07-26] MEDS ORDERED: HALOPERIDOL 5 MG TAB PO PRN (14:45)
[2025-07-26] MEDS ORDERED: ACETAMINOPHEN 500 MG TAB or CAP PO PRN (17:00)
[2025-07-26] MEDS: HALOPERIDOL 5 MG TAB PO SCH (22:11)
[2025-07-26] MEDS: NAPROXEN 500 MG TAB PO SCH (22:11)
--- NOTE | 2025-07-26 23:21 | DVHINCON2 ---
Date of service: Jul 26, [address] Su Reason for Consultation Acute hypoxic respiratory failure, COPD and pneumonia History of Present Illness The patient is a 55-year-old woman with past medical history of COPD, hypertension, GERD, and schizophrenia, who presented to the ED on 07/25/25 with a chief complaint of shortness of breath. Patient reported experiencing shortness of breath with associated substernal chest pain x1 day. She additionally complained of a productive cough with "white" sputum. Patient is on continuous oxygen at home via NC at 2-4 Lpm. Patient denies fever, chills, palpitations, fatigue, weakness, or loss of taste and smell. Note, patient with history of frequent admissions to hospital - recent admission here for similar complaints. Patient was admitted for further care, and pulmonary consultation is requested for evaluation and management of acute hypoxic respiratory failure, COPD and pneumonia. Review of Systems: 14-point review of systems negative unless otherwise noted above. Past Medical History: COPD, hypertension, GERD, and schizophrenia Past Surgical History: None Medications: Reviewed. Allergies: Erythromycin Lactose Family History: COPD, anxiety, schizophrenia. Social History: Nonsmoker. No alcohol or illicit drug use. Family History: Anxiety disorder FH: COPD (chronic obstructive pulmonary disease) FH: schizophrenia Allergies: Coded Allergies: Lactose (Verified Allergy, Severe, 11/15/24) Erythromycin (Verified Allergy, Intermediate, 07/19/25) Home Meds Active Scripts Albuterol Sulfate (Ventolin) 2 Mg/5 Ml Sr, 5 ML PO TID PRN for 30 Days, #150 ML 3 Refills Prov:ADAM SU DO 07/21/25 Azithromycin (Azithromycin) 250 Mg Tab, 250 MG PO DAILY MDD 500 for 5 Days, #6 TAB 0 Refills 2 TABLETS ORALLY ON DAY ONE, THEN 1 TABLET ORALLY DAILY FOR 4 DAYS Prov:ADAM SU DO 07/21/25 Loperamide Hcl (Imodium) 2 Mg Cp, 2 MG PO Q6HPRN PRN for 30 Days, #10 CAP Prov:JOYA PLATT QUALITY ASSURANCE MONITOR BODY 06/22/25 Divalproex Sodium (Divalproex Sodium) 500 Mg Tab, 500 MG PO BID for 30 Days, #60 MG Prov:JOYA PLATT QUALITY ASSURANCE MONITOR BODY 05/19/25 Haloperidol (Haldol) 5 Mg Tb, 3 MG PO BID for 30 Days, #60 MG Prov:JOYA PLATT QUALITY ASSURANCE MONITOR BODY 05/19/25 Benztropine Mesylate (Benztropine Mesylate) 1 Mg Tab, 1 MG PO BID for 30 Days, #60 MG Prov:JOYA PLATT QUALITY ASSURANCE MONITOR BODY 05/19/25 Trazodone Hcl (Trazodone Hcl) 50 Mg Tab, 75 MG PO HS for 30 Days, #45 MG Prov:JOYA PLATT QUALITY ASSURANCE MONITOR BODY 05/19/25 Reported Medications Haloperidol (Haldol) 5 Mg Tb, 5 MG PO BID, MG 07/19/25 Ondansetron Odt 4MG Tab (ZOFRAN PO) 4 Mg Tb, 4 MG PO, TAB ODT TAB-DISSOLVE IN MOUTH, THEN SWALLOW 07/16/25 Naproxen (NAPROSYN TABLET) 500 Mg Tb, 1 TAB PO BID, #60 TAB 1 Refill 07/16/25 Acetaminophen (Tylenol Extra Strength) 500 Mg Tab, 500 MG PO, TAB 07/16/25 Fluticasone-Salmeterol (Advair Diskus 250/50) 1 Puff Ih, 1 PUFF INH BID, #3 INHALER 3 Refills 07/16/25 Dextromethorphan-Guaifenesin (Tussin Dm Cough & Chest C 20-200 mg/20Ml) 1 Liq Liq, 1 LIQ PO, LIQ 07/16/25 Quetiapine Fumerate (Seroquel) 50 Mg Tab, 1 TAB PO QPM, #30 TAB 2 Refills 07/16/25 Pantoprazole Sodium (PANTOPRAZOLE SODIUM) 40 Mg Inj, 40 MG PO DAILY, INJ 07/16/25 Current Medications Current Medications Medications (Trade) Dose Ordered Sig/Elaine Route PRN Reason Start Time Stop Time Status Last Admin Enoxaparin Sodium (Lovenox) 40 mg DAILY SC 07/26/25 10:00 Hold Azithromycin 250 ml @ 125 mls/hr DAILY IV 07/27/25 10:00 UNV Ceftriaxone Sodium 50 ml @ 100 mls/hr DAILY@09 IV 07/26/25 18:18 07/26/25 18:30 DC Trazodone HCl (Desyrel) 100 mg HS PO 07/26/25 22:00 Quetiapine Fumarate (SEROquel TABLET) 50 mg HS PO 07/26/25 22:00 Haloperidol (Haldol Tablet) 5 mg [id number] PRN PO AGITATION 07/26/25 14:45 07/26/25 18:19 DC Divalproex Sodium (Depakote "Dr" Tablet) 500 mg BID PO 07/26/25 22:00 07/26/25 22:10 Acetaminophen (Tylenol Tablet Or Capsule) 500 mg Q6HPRN PRN PO Mild pain 1-3 07/26/25 17:00 Haloperidol (Haldol Tablet) 5 mg BID PO 07/26/25 22:00 07/26/25 22:11 Naproxen (Naprosyn Tablet) 500 mg BID PO 07/26/25 22:00 07/26/25 22:11 Pantoprazole Sodium (Protonix) 40 mg DAILY IV 07/27/25 10:00 Ceftriaxone Sodium 50 ml @ 100 mls/hr DAILY@09 IV 07/26/25 20:00 07/26/25 20:12 Vital Signs Vital Signs Date Time Temp Pulse Resp B/P (MAP) Pulse Ox O2 Delivery O2 Flow Rate FiO2 07/26/25 22:41 101 25 94 07/26/25 22:10 94/60 (71) 07/26/25 21:00 97.5 97.5 07/26/25 18:02 Nasal Cannula* 4 36 Physical Exam Gen.: Patient lying in bed in no apparent distress. On supplemental oxygen. Head: Normocephalic, atraumatic. Eyes: EOMI/PERRLA. Ears: Normal hearing. Normal anatomy. Neck/trachea: Trachea midline, supple. Nose: Normal external anatomy. Mouth: Moist mucous membranes. Chest: Decreased air entry bilaterally. No wheezing or rhonchi. Cardiovascular: Positive S1, positive S2. Regular rate and rhythm. Abdomen: Positive bowel sounds in all 4 quadrants. Soft, non-tender, non- distended. : Deferred. Rectal: Deferred. Skin: Warm, dry. Intact. Extremities: 2+ radial pulses bilaterally. No lower extremity edema. Neuro: Awake, alert, oriented x3. No gross motor or sensory deficits. Cranial nerves II through XII intact. Gait not assessed. Labs/Diagnostic Data Labs Test 07/26/25 10:38 07/26/25 08:43 Range/Units White Blood Count 3.2 L 4.4-10.8 10^3/uL Red Blood Count 4.85 4.0-5.20 10^6/uL Hemoglobin 15.5 12.2-16.2 g/dL Hematocrit 46.8 H 36.0-46.0 % Mean Corpuscular Volume 96.5 80.0-100.0 fL Mean Corpuscular Hemoglobin 32.0 28.0-32.0 pg Mean Corpuscular Hemoglobin Concent 33.2 32.0-36.0 g/dL Red Cell Distribution Width 16.3 H 11.8-14.3 % Platelet Count 101 L 140-450 10^3/uL Mean Platelet Volume 9.6 6.9-10.8 fL Neutrophils (%) (Auto) 60.0 37.0-80.0 % Lymphocytes (%) (Auto) 28.0 10.0-50.0 % Monocytes (%) (Auto) 11.3 0.0-12.0 % Eosinophils (%) (Auto) 0.6 0.0-7.0 % Basophils (%) (Auto) 0.1 0.0-2.0 % Neutrophils # (Auto) 1.9 1.6-8.6 10 ^3/uL Lymphocytes # (Auto) 0.9 0.4-5.4 10 ^3/uL Monocytes # (Auto) 0.4 0-1.3 10 ^3/uL Eosinophils # (Auto) 0 0-0.8 10 ^3/uL Basophils # (Auto) 0 0-0.2 10 ^3/uL Nucleated Red Blood Cells 0.1 % Sodium Level 143 # 136-145 mmol/L Potassium Level 4.4 3.5-5.1 mmol/L Chloride Level 99 98-107 mmol/L Carbon Dioxide Level 34 H 20-31 mmol/L Anion Gap 10 5-15 Blood Urea Nitrogen 8 L 9-23 mg/dL Creatinine 0.41 L 0.550-1.02 mg/dL Glomerular Filtration Rate Calc 115 >90 mL/min BUN/Creatinine Ratio 19.5 10.0-20.0 Serum Glucose 97 74-106 mg/dL Calcium Level 9.5 8.7-10.4 mg/dL Total Bilirubin 0.4 0.2-1.0 mg/dL Aspartate Amino Transferase (AST) 22 13-40 U/L Alanine Aminotransferase (ALT) 13 7-40 U/L Alkaline Phosphatase 92 46-116 U/L Total Protein 6.1 5.7-8.2 g/dL Albumin 4.3 3.2-4.8 g/dL Assessment Impression: Acute hypoxic respiratory failure Dependence on supplemental oxygen Chronic obstructive pulmonary disease Atelectasis Seizures Nicotine dependence Pneumonia, likely GNR/GPC Plan: Supplemental oxygen Titrate to keep O2 sats above 92%. On 4 LPM NC Taper O2 as tolerated. Chest x-ray on 07/25/25 reveals emphysematous changes. Continue bronchodilators. Pulmicort BID Continue antibiotics F/u cultures Incentive spirometry F/u Neuro recommendations Monitor blood pressure Monitor renal function. Monitor electrolytes. Supplement as necessary. Monitor ins and outs. GI/DVT prophylaxis. Prognosis: Poor given patient's multiple co-morbidities. Rest of plan per hospitalist and other consultants. Thank you, Dr. Su, for allowing me to participate in this patient's care. Further recommendations will depend on the patient's clinical course. Please do not hesitate to contact me if you have any questions or concerns. This medical document was created using an electronic medical record system with [employer] dictation system. Although these documentations are being carefully reviewed, there may still be some phonetic and typographical changes. The errors are purely typographical, due to imperfection on the software program, and do not reflect any compromise in the patient's medical care. Plan discussed with: Patient, Other (SIL Clark/) MAXWELL PAREDES [facility] Jul 26, 2025 23:21
[2025-07-27] VITALS (14 sets, daily range): BP systolic 95–104; BP diastolic 51–69; PULSE 70–96; RESP 16–24; TEMP 97.5–98.2; O2SAT 92–100
[2025-07-27] MEDS ORDERED: AZITHROMYCIN 500MG/250ML 250 ML IV SCH (10:00)
[2025-07-27] MEDS: PANTOPRAZOLE 40 MG/10 ML VIAL INJ IV SCH (10:00)
--- NOTE | 2025-07-27 23:24 | DVHPN2 ---
Progress Note - Dictate Date Seen: Jul 27, 2025 Medical Necessity Reason Pt with a Central, PICC or Fol: No Subjective Patient seen and examined at bedside. Remains on supplemental oxygen Overnight events reviewed. vital signs Vital Sign Date Time Temp Pulse Resp B/P (MAP) Pulse Ox O2 Delivery O2 Flow Rate FiO2 07/27/25 21:05 89 16 100 07/27/25 20:59 Nasal Cannula* 3 32 07/27/25 12:40 98.2 103/69 (80) 98.2 Total Intake and Output 07/26/25 07/26/25 07/27/25 15:00 23:00 07:00 Intake Total 50 ml 400 ml Balance 50 ml 400 ml medications Current Medications Medications Dose Ordered Sig/Elaine Route Start Time Stop Time Status Last Admin Dose Admin Acetaminophen/ Hydrocodone Bitart 1 tab Q4HP PRN PO 07/25/25 11:15 UNV Ondansetron HCl 4 mg Q4HP PRN IV 07/25/25 11:15 UNV Docusate Sodium 100 mg BIDPRN PRN PO 07/25/25 11:15 UNV Acetaminophen 650 mg Q6HP PRN PO 07/25/25 11:15 UNV Enoxaparin Sodium 40 mg DAILY SC 07/25/25 11:15 UNV Nitroglycerin 0.4 mg Q5MINP PRN SL 07/25/25 11:15 UNV Morphine Sulfate 2 mg Q30M PRN IV 07/25/25 11:15 UNV Haloperidol 3 mg BID PO 07/25/25 22:00 UNV Trazodone HCl 75 mg HS PO 07/25/25 22:00 UNV Albuterol 2.5 mg Q4HPRN PRN NEB 07/25/25 11:15 UNV Budesonide 0.5 mg BID NEB 07/25/25 22:00 UNV Doxycycline Monohydrate 100 mg Q12HR PO 07/25/25 22:00 UNV Acetaminophen/ Hydrocodone Bitart 1 tab Q4HP PRN PO 07/25/25 12:00 Ondansetron HCl 4 mg Q4HP PRN IV 07/25/25 12:00 Enoxaparin Sodium 40 mg DAILY SC 07/26/25 10:00 Hold Morphine Sulfate 2 mg Q4HPRN PRN IV 07/25/25 12:15 Nitroglycerin 0.4 mg Q5MINP PRN SL 07/25/25 12:00 Morphine Sulfate 2 mg Q30M PRN IV 07/25/25 12:15 Budesonide 0.5 mg BID NEB 07/25/25 22:00 07/27/25 18:12 0.5 MG Albuterol 2.5 mg Q4HPRN PRN NEB 07/25/25 17:00 07/27/25 20:59 2.5 MG Azithromycin 250 ml @ 125 mls/hr DAILY IV 07/27/25 10:00 UNV Trazodone HCl 100 mg HS PO 07/26/25 22:00 Divalproex Sodium 500 mg BID PO 07/26/25 22:00 07/26/25 22:10 500 MG Acetaminophen 500 mg Q6HPRN PRN PO 07/26/25 17:00 Haloperidol 5 mg BID PO 07/26/25 22:00 07/26/25 22:11 5 MG Naproxen 500 mg BID PO 07/26/25 22:00 07/26/25 22:11 500 MG Pantoprazole Sodium 40 mg DAILY IV 07/27/25 10:00 Ceftriaxone Sodium 50 ml @ 100 mls/hr DAILY@09 IV 07/26/25 20:00 07/26/25 20:12 100 MLS/HR Quetiapine Fumarate 50 mg BID PO 07/27/25 13:00 07/27/25 13:09 50 MG objective Gen.: Patient lying in bed in no apparent distress. On supplemental oxygen. Head: Normocephalic, atraumatic. Eyes: EOMI/PERRLA. Ears: Normal hearing. Normal anatomy. Neck/trachea: Trachea midline, supple. Nose: Normal external anatomy. Mouth: Moist mucous membranes. Chest: Decreased air entry bilaterally. No wheezing or rhonchi. Cardiovascular: Positive S1, positive S2. Regular rate and rhythm. Abdomen: Positive bowel sounds in all 4 quadrants. Soft, non-tender, non- distended. : Deferred. Rectal: Deferred. Skin: Warm, dry. Intact. Extremities: 2+ radial pulses bilaterally. No lower extremity edema. Neuro: Awake, alert, oriented x3. No gross motor or sensory deficits. Cranial nerves II through XII intact. Gait not assessed. laboratory and microbiology Laboratory Tests 07/26/25 10:38 07/26/25 08:43 Test 07/26/25 08:43 Range/Units Serum Glucose 97 74-106 mg/dL Assessment/Plan Impression: Acute hypoxic respiratory failure Dependence on supplemental oxygen Chronic obstructive pulmonary disease Atelectasis Seizures Nicotine dependence Pneumonia, likely GNR/GPC Events: Remains on supplemental oxygen, 4 LPM NC Taper O2 as tolerated Patient is awake, confused. She is refusing care today Telesitter at bedside for safety. Continue bronchodilators Continue antibiotics Continue steroids Incentive spirometry Continue plan of care. Labs and imaging reviewed. Plan: Supplemental oxygen Titrate to keep O2 sats above 92%. Chest x-ray on 07/25/25 reveals emphysematous changes. Continue bronchodilators. Pulmicort BID Continue antibiotics F/u cultures Incentive spirometry F/u Neuro recommendations Monitor blood pressure Monitor renal function. Monitor electrolytes. Supplement as necessary. Monitor ins and outs. GI/DVT prophylaxis. Prognosis: Poor given patient's multiple co-morbidities. Rest of plan per hospitalist and other consultants. Thank you, Dr. Fernandez, for allowing me to participate in this patient's care. Further recommendations will depend on the patient's clinical course. Please do not hesitate to contact me if you have any questions or concerns. This medical document was created using an electronic medical record system with [employer] computerized dictation system. Although these documentations are being carefully reviewed, there may still be some phonetic and typographical changes. The errors are purely typographical, due to imperfection on the software program, and do not reflect any compromise in the patient's medical care. Dietary Evaluation Review Comments: Nutrition Recommendation: 1) Ensure Enlive 240ml BID 2) Monitor PO intake, lab values, weight trend, and I/O Expected Outcomes/Goals: Intake to meet >75% estimated needs maintain/gain weight FU 3-5 days Interpretation of weight loss: >20% in 1 year Body Fat Depletion (Non Severe: Mild Depletion Muscle mass (Non-Severe): Mild Depletion (Moderate) Protein Calorie Malnutrition: Non-Severe Is there a minimum of two crit: Yes Plan discussed with: Other (SIL Pantoja) MAXWELL PAREDES [facility] Jul 27, 2025 23:24
[2025-07-28] VITALS (12 sets, daily range): BP systolic 121; BP diastolic 61–75; PULSE 80–114; RESP 16–20; TEMP 97.3–98; O2SAT 94–100
--- NOTE | 2025-07-28 16:41 | DVHPN2 ---
Progress Note Date Seen: Jul 27, 2025 Medical Necessity Reason Pt with a Central, PICC or Fol: No Objective vital signs Vital Sign Date Time Temp Pulse Resp B/P (MAP) Pulse Ox O2 Delivery O2 Flow Rate FiO2 07/28/25 13:07 107 20 99 07/28/25 13:01 Nasal Cannula* 4 36 07/28/25 10:42 121/75 07/28/25 05:02 97.3 97.3 Total Intake and Output 07/27/25 07/27/25 07/28/25 15:00 23:00 07:00 Intake Total 1720 ml 105 ml Output Total 3 ml Balance 1717 ml 105 ml medications Current Medications Medications Dose Ordered Sig/Elaine Route Start Time Stop Time Status Last Admin Dose Admin Acetaminophen/ Hydrocodone Bitart 1 tab Q4HP PRN PO 07/25/25 11:15 UNV Ondansetron HCl 4 mg Q4HP PRN IV 07/25/25 11:15 UNV Docusate Sodium 100 mg BIDPRN PRN PO 07/25/25 11:15 UNV Acetaminophen 650 mg Q6HP PRN PO 07/25/25 11:15 UNV Enoxaparin Sodium 40 mg DAILY SC 07/25/25 11:15 UNV Nitroglycerin 0.4 mg Q5MINP PRN SL 07/25/25 11:15 UNV Morphine Sulfate 2 mg Q30M PRN IV 07/25/25 11:15 UNV Haloperidol 3 mg BID PO 07/25/25 22:00 UNV Trazodone HCl 75 mg HS PO 07/25/25 22:00 UNV Albuterol 2.5 mg Q4HPRN PRN NEB 07/25/25 11:15 UNV Budesonide 0.5 mg BID NEB 07/25/25 22:00 UNV Doxycycline Monohydrate 100 mg Q12HR PO 07/25/25 22:00 UNV Acetaminophen/ Hydrocodone Bitart 1 tab Q4HP PRN PO 07/25/25 12:00 Ondansetron HCl 4 mg Q4HP PRN IV 07/25/25 12:00 Enoxaparin Sodium 40 mg DAILY SC 07/26/25 10:00 Hold Morphine Sulfate 2 mg Q4HPRN PRN IV 07/25/25 12:15 Nitroglycerin 0.4 mg Q5MINP PRN SL 07/25/25 12:00 Morphine Sulfate 2 mg Q30M PRN IV 07/25/25 12:15 Budesonide 0.5 mg BID NEB 07/25/25 22:00 07/28/25 06:48 0.5 MG Albuterol 2.5 mg Q4HPRN PRN NEB 07/25/25 17:00 07/28/25 13:01 2.5 MG Azithromycin 250 ml @ 125 mls/hr DAILY IV 07/27/25 10:00 UNV Trazodone HCl 100 mg HS PO 07/26/25 22:00 Divalproex Sodium 500 mg BID PO 07/26/25 22:00 07/26/25 22:10 500 MG Acetaminophen 500 mg Q6HPRN PRN PO 07/26/25 17:00 Haloperidol 5 mg BID PO 07/26/25 22:00 07/26/25 22:11 5 MG Naproxen 500 mg BID PO 07/26/25 22:00 07/26/25 22:11 500 MG Pantoprazole Sodium 40 mg DAILY IV 07/27/25 10:00 Ceftriaxone Sodium 50 ml @ 100 mls/hr DAILY@09 IV 07/26/25 20:00 07/26/25 20:12 100 MLS/HR Quetiapine Fumarate 50 mg BID PO 07/27/25 13:00 07/28/25 09:08 50 MG laboratory and microbiology Laboratory Tests 07/26/25 10:38 07/26/25 08:43 Test 07/26/25 08:43 Range/Units Serum Glucose 97 74-106 mg/dL Problem List/Assessment/Plan Problem List/Assessment/Plan LATE NOTE FOR SERVICES RENDED ON 07/25/25 55 y/o F, with PMHx of schizophrenia and COPD presents to the ED for CC of shortness of breath. Patient states, she has been experiencing shortness of breath with associated substernal chest pain x1day. Patient reports, to have a productive cough with "white" septum. Patient is on continuos oxygen at home via NC at 2-4Lpm. Patient denies fever, chills, palpitations, fatigue, weakness, or loss of taste and smell. suspected pna (bacterial gram pos/gram neg) acute hypoxic resp failure hx of COPD chronic hypoxia schizophrenia depression seizure hx started on empirical iv abx supplemental O2 My Orders My Orders Orders - ADAM SU DO Procedure Category Date Status Time Discharge DISCHARGE 07/28/25 Transmitted 16:40 Dietary Evaluation Review Comments: Nutrition Recommendation: 1) Ensure Enlive 240ml BID 2) Monitor PO intake, lab values, weight trend, and I/O Expected Outcomes/Goals: Intake to meet >75% estimated needs maintain/gain weight FU 3-5 days Interpretation of weight loss: >20% in 1 year Body Fat Depletion (Non Severe: Mild Depletion Muscle mass (Non-Severe): Mild Depletion (Moderate) Protein Calorie Malnutrition: Non-Severe Is there a minimum of two crit: Yes ADAM SU DO Jul 28, 2025 16:41
--- NOTE | 2025-07-28 16:42 | DVHDS2 ---
Discharge Summary Date of Admission Jul 25, 2025 at 11:54 Date of Discharge: Jul 28, 2025 Labs/Diagnostic Data: Laboratory Results Test 07/26/25 10:38 07/26/25 08:43 White Blood Count 3.2 10^3/uL (4.4-10.8) Red Blood Count 4.85 10^6/uL (4.0-5.20) Hemoglobin 15.5 g/dL (12.2-16.2) Hematocrit 46.8 % (36.0-46.0) Mean Corpuscular Volume 96.5 fL (80.0-100.0) Mean Corpuscular Hemoglobin 32.0 pg (28.0-32.0) Mean Corpuscular Hemoglobin Concent 33.2 g/dL (32.0-36.0) Red Cell Distribution Width 16.3 % (11.8-14.3) Platelet Count 101 10^3/uL (140-450) Mean Platelet Volume 9.6 fL (6.9-10.8) Neutrophils (%) (Auto) 60.0 % (37.0-80.0) Lymphocytes (%) (Auto) 28.0 % (10.0-50.0) Monocytes (%) (Auto) 11.3 % (0.0-12.0) Eosinophils (%) (Auto) 0.6 % (0.0-7.0) Basophils (%) (Auto) 0.1 % (0.0-2.0) Neutrophils # (Auto) 1.9 10 ^3/uL (1.6-8.6) Lymphocytes # (Auto) 0.9 10 ^3/uL (0.4-5.4) Monocytes # (Auto) 0.4 10 ^3/uL (0-1.3) Eosinophils # (Auto) 0 10 ^3/uL (0-0.8) Basophils # (Auto) 0 10 ^3/uL (0-0.2) Nucleated Red Blood Cells 0.1 % Sodium Level 143 mmol/L (136-145) Potassium Level 4.4 mmol/L (3.5-5.1) Chloride Level 99 mmol/L (98-107) Carbon Dioxide Level 34 mmol/L (20-31) Anion Gap 10 (5-15) Blood Urea Nitrogen 8 mg/dL (9-23) Creatinine 0.41 mg/dL (0.550-1.02) Glomerular Filtration Rate Calc 115 mL/min (>90) BUN/Creatinine Ratio 19.5 (10.0-20.0) Serum Glucose 97 mg/dL (74-106) Calcium Level 9.5 mg/dL (8.7-10.4) Total Bilirubin 0.4 mg/dL (0.2-1.0) Aspartate Amino Transferase (AST) 22 U/L (13-40) Alanine Aminotransferase (ALT) 13 U/L (7-40) Alkaline Phosphatase 92 U/L (46-116) Total Protein 6.1 g/dL (5.7-8.2) Albumin 4.3 g/dL (3.2-4.8) Other Laboratory Tests 07/26/25 10:38 07/26/25 08:43 Discharge Disposition: Assisted Living Facility Discharge Instruct/Medications Diet: Cardiac 2g Na,low cholest Activity: No Restrictions, As Tolerated Scheduled Azithromycin (Azithromycin), 250 MG PO DAILY Benztropine Mesylate (Benztropine Mesylate), 1 MG PO BID Divalproex Sodium (Divalproex Sodium), 500 MG PO BID Fluticasone-Salmeterol (Advair Diskus 250/50), 1 PUFF INH BID, (Reported) Haloperidol (Haldol), 3 MG PO BID Haloperidol (Haldol), 5 MG PO BID, (Reported) Naproxen (Naprosyn Tablet), 1 TAB PO BID, (Reported) Pantoprazole Sodium (Pantoprazole Sodium), 40 MG PO DAILY, (Reported) Quetiapine Fumerate (Seroquel), 1 TAB PO QPM, (Reported) Trazodone Hcl (Trazodone Hcl), 75 MG PO HS Scheduled PRN Albuterol Sulfate (Ventolin), 5 ML PO TID PRN Loperamide Hcl (Imodium), 2 MG PO Q6HPRN PRN Miscellaneous Medications Acetaminophen (Tylenol Extra Strength), 500 MG PO, (Reported) Dextromethorphan-Guaifenesin (Tussin Dm Cough & Chest C 20-200 mg/20Ml), 1 LIQ PO, (Reported) Ondansetron Odt 4MG Tab (Zofran Po), 4 MG PO, (Reported) Discharge Statement: "Patient was advised to return to the ER or call 911 if any headaches, dizziness, shortness of breath, chest pain, abdominal pain, bleeding, fevers, or worsening of medical condition. Patient was counseled about treatment plan, medications, possible side effects, patientverbalized understanding. All questions were answered to the best of my ability. This discharge took greater then 30 minutes in planning, reviewing documentation, counseling the patient, and discussing with other team members." ASSESSMENT ASSESSMENT Assessment ADAM SU DO Jul 28, 2025 16:42
--- NOTE | 2025-07-28 23:44 | DVHPN2 ---
Progress Note - Dictate Date Seen: Jul 28, 2025 Medical Necessity Reason Pt with a Central, PICC or Fol: No Subjective Patient seen and examined at bedside. Remains on supplemental oxygen Overnight events reviewed. vital signs Vital Sign Date Time Temp Pulse Resp B/P (MAP) Pulse Ox O2 Delivery O2 Flow Rate FiO2 07/28/25 20:00 103 18 Nasal Cannula* 3 32 07/28/25 17:35 98.0 99 07/28/25 17:30 121/61 (81) Total Intake and Output 07/27/25 07/27/25 07/28/25 15:00 23:00 07:00 Intake Total 1720 ml 105 ml Output Total 3 ml Balance 1717 ml 105 ml medications Current Medications Medications Dose Ordered Sig/Elaine Route Start Time Stop Time Status Last Admin Dose Admin Acetaminophen/ Hydrocodone Bitart 1 tab Q4HP PRN PO 07/25/25 11:15 UNV Ondansetron HCl 4 mg Q4HP PRN IV 07/25/25 11:15 UNV Docusate Sodium 100 mg BIDPRN PRN PO 07/25/25 11:15 UNV Acetaminophen 650 mg Q6HP PRN PO 07/25/25 11:15 UNV Enoxaparin Sodium 40 mg DAILY SC 07/25/25 11:15 UNV Nitroglycerin 0.4 mg Q5MINP PRN SL 07/25/25 11:15 UNV Morphine Sulfate 2 mg Q30M PRN IV 07/25/25 11:15 UNV Haloperidol 3 mg BID PO 07/25/25 22:00 UNV Trazodone HCl 75 mg HS PO 07/25/25 22:00 UNV Albuterol 2.5 mg Q4HPRN PRN NEB 07/25/25 11:15 UNV Budesonide 0.5 mg BID NEB 07/25/25 22:00 UNV Doxycycline Monohydrate 100 mg Q12HR PO 07/25/25 22:00 UNV Azithromycin 250 ml @ 125 mls/hr DAILY IV 07/27/25 10:00 UNV objective Gen.: Patient lying in bed in no apparent distress. On supplemental oxygen. Head: Normocephalic, atraumatic. Eyes: EOMI/PERRLA. Ears: Normal hearing. Normal anatomy. Neck/trachea: Trachea midline, supple. Nose: Normal external anatomy. Mouth: Moist mucous membranes. Chest: Decreased air entry bilaterally. No wheezing or rhonchi. Cardiovascular: Positive S1, positive S2. Regular rate and rhythm. Abdomen: Positive bowel sounds in all 4 quadrants. Soft, non-tender, non- distended. : Deferred. Rectal: Deferred. Skin: Warm, dry. Intact. Extremities: 2+ radial pulses bilaterally. No lower extremity edema. Neuro: Awake, alert, oriented x3. No gross motor or sensory deficits. Cranial nerves II through XII intact. Gait not assessed. laboratory and microbiology Laboratory Tests 07/26/25 10:38 07/26/25 08:43 Test 07/26/25 08:43 Range/Units Serum Glucose 97 74-106 mg/dL Assessment/Plan Impression: Acute hypoxic respiratory failure Dependence on supplemental oxygen Chronic obstructive pulmonary disease Atelectasis Seizures Nicotine dependence Pneumonia, likely GNR/GPC Events: Remains on supplemental oxygen, 4 LPM NC Taper O2 as tolerated Patient is awake, alert. No distress. No shortness of breath Patient is refusing care. Continue bronchodilators Continue antibiotics Incentive spirometry Maintain euvolemia Monitor renal function Discharge planning. Labs and imaging reviewed. Plan: Supplemental oxygen Titrate to keep O2 sats above 92%. Chest x-ray on 07/25/25 reveals emphysematous changes. Continue bronchodilators. Continue steroids Pulmicort BID Continue antibiotics F/u cultures Incentive spirometry F/u Neuro recommendations Monitor blood pressure Monitor renal function. Monitor electrolytes. Supplement as necessary. Monitor ins and outs. GI/DVT prophylaxis. Prognosis: Poor given patient's multiple co-morbidities. Rest of plan per hospitalist and other consultants. Thank you, Dr. Fernandez, for allowing me to participate in this patient's care. Further recommendations will depend on the patient's clinical course. Please do not hesitate to contact me if you have any questions or concerns. This medical document was created using an electronic medical record system with [employer] dictation system. Although these documentations are being carefully reviewed, there may still be some phonetic and typographical changes. The errors are purely typographical, due to imperfection on the software program, and do not reflect any compromise in the patient's medical care. Dietary Evaluation Review Comments: Nutrition Recommendation: 1) Ensure Enlive 240ml BID 2) Monitor PO intake, lab values, weight trend, and I/O Expected Outcomes/Goals: Intake to meet >75% estimated needs maintain/gain weight FU 3-5 days Interpretation of weight loss: >20% in 1 year Body Fat Depletion (Non Severe: Mild Depletion Muscle mass (Non-Severe): Mild Depletion (Moderate) Protein Calorie Malnutrition: Non-Severe Is there a minimum of two crit: Yes Plan discussed with: Patient, Other (SIL [place]) MAXWELL PAREDES [facility] Jul 28, 2025 23:44
== END 2025-07-28 22:05 | disposition home health service (06) | DRG 133 ==
LOC: EDBD 05:38 → ER 05:38 → OVERFLOW 11:54 → TELE-CENTR 07-26 16:29 → UNDODISIN 07-28 22:05
PROVIDERS: ADMIT Internal Medicine; ATTEND Internal Medicine
DX: J96.01 Acute respiratory failure with hypoxia (principal); J15.69 Pneumonia due to other Gram-negative bacteria; E87.20 Acidosis, unspecified; J15.9 Unspecified bacterial pneumonia; R65.11 Systemic inflammatory response syndrome (SIRS) of non-infectious origin with acute organ dysfunction; J44.0 Chronic obstructive pulmonary disease with (acute) lower respiratory infection; F20.9 Schizophrenia, unspecified; F32.A Depression, unspecified; I10 Essential (primary) hypertension; Z99.81 Dependence on supplemental oxygen; J98.11 Atelectasis; K21.9 Gastro-esophageal reflux disease without esophagitis; F17.210 Nicotine dependence, cigarettes, uncomplicated; Z82.5 Family history of asthma and other chronic lower respiratory diseases; Z81.8 Family history of other mental and behavioral disorders; Z88.1 Allergy status to other antibiotic agents; Z86.69 Personal history of other diseases of the nervous system and sense organs
CPT/HCPCS: 36415; 71045; 80053; 85025; 93005; 94640; 99291; G0378; J2470

== ENCOUNTER 2025-08-02 11:58 | Emergency (ER) | payer OTHER ==
[~2025-08-02] VITALS: Ht 167.6 cm; Wt 42.0 kg
[~2025-08-02 11:58] MED LIST changes: -AZIT-43 PO
--- NOTE | 2025-08-02 12:16 | ECG ---
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
--- NOTE | 2025-08-02 12:29 | ED.PDOC ---
SOB-HPI HPI Comments 55 year old female with PMHx COPD, GERD, HTN, schizophrenia presents to the ED via EMS with a chief complaint of shortness of breath onset today. Per EMS, patient woke up this morning experiencing shortness of breath as well as cough, was given breathing treatment in route to ED. Patient has been seen in this ED several times, last discharge from [facility] was 07/28/25. Denies chest pain, dizziness, headache, nausea, vomiting, diarrhea, abdominal pain. No other symptoms or modifying factors present at this time. Chief Complaint: Shortness of Breath Time Seen by MD: 12:15 Primary Care Provider: UNKNOWN Reviewed notes: Medications, Allergies Information Source: Patient, Emergency Med Personnel Mode of Arrival: EMS Severity: Moderate Timing: Hours Duration: Since onset Context: At Rest PE Risk Factors: None History of: COPD Prehospital treatment: Breathing Tx Modifying Factors: Nothing Associated Signs and Symptoms: Cough If cough with SOB: Non-Productive Past Medical History PAST MEDICAL HISTORY: COPD, Gallstones, GERD, HTN, Schizophrenia, UTI'S Surgical History: Denies all surgeries FLATWORK CATCHER History: Denies all FLATWORK CATCHER Hx Family History Family History: Reviewed,noncontributory to illness Social History Smoker: Cigarettes Alcohol: Denies ETOH Use Drugs: Denies Drug Use Lives In: Assisted Care Constitutional: denies: chills, diaphoresis, fatigue, fever, malaise, sweats, weakness, others EENTM: denies: blurred vision, double vision, ear bleeding, ear discharge, ear drainage, ear pain, ear ringing, eye pain, eye redness, hearing loss, mouth pain, mouth swelling, nasal discharge, nose bleeding, nose congestion, nose pain, photophobia, tearing, throat pain, throat swelling, voice changes, others Respiratory: reports: cough, shortness of breath; denies: hemoptysis, orthopnea, SOB at rest, SOB with excertion, stridor, wheezing, others Cardiovascular: denies: chest pain, dizzy spells, diaphoresis, Dyspnea on exertion, edema, irregular heart beat, left arm pain, lightheadedness, palpitations, PND, syncope, others Gastrointestinal: denies: abdomen distended, abdominal pain, blood streaked bowels, constipated, diarrhea, dysphagia, difficulty swallowing, hematemesis, melena, nausea, poor appetite, poor fluid intake, rectal bleeding, rectal pain, vomiting, others Genitourinary: denies: abnormal vagina bleeding, burning, dyspareunia, dysuria, flank pain, frequency, hematuria, incontinence, pain, , vagina d ischarge, urgency, others Neurological: denies: dizziness, fainting, headache, left sided numbness, left sided weakness, numbness, paresthesia, pre-existing deficit, right sided numbness, right sided weakness, seizure, speech problems, tingling, tremors, weakness, others Musculoskeletal: denies: back pain, gout, joint pain, joint swelling, muscle pain, muscle stiffness, neck pain, others Integumetry: denies: bruises, change in color, change in hair/nails, dryness, laceration, lesions, lumps, rash, wounds, others Allergic/Immunocompromised: denies: Difficulty Healing, Frequent Infections, Hives, Itching, others Hematologic/Lymphatic: denies: anemia, blood clots, easy bleeding, easy bruising, swollen glands, others Endocrine: denies: excessive hunger, excessive sweating, excessive thirst, excessive urination, flushing, intolerance to cold, intolerance to heat, unexplained weight gain, unexplained weight loss, others Psychiatric: denies: anxiety, bipolar disorder, depression, hopeless, panic disorder, schizophrenia, sleepless, suicidal, others All Other Systems: Reviewed and Negative Physical Exam General Appearance: Normal HEENT: Normal ENT Inspection, Pharynx Normal, TMs Normal Neck: Full Range of Motion, Non-Tender, Normal, Normal Inspection Respiratory: Chest Non-Tender, Lungs Clear, No Accessory Muscle Use, No Respiratory Distress, Normal Breath Sounds Cardiovascular: No Edema, No JVD, No Murmur, No Gallop, Normal Peripheral Pulses, Regular Rate/Rhythm Breast Exam: Deferred Gastrointestinal: No Organomegaly, Non Tender, No Pulsatile Mass, Normal Bowel Sounds, Soft Genitalia: Deferred Pelvic: Deferred Rectal: Deferred Extremities: No calf tenderness, Normal capillary refill, Normal inspection, Normal range of motion, Non-tender, No pedal edema Musculoskeletal : Apperance: Normal Neurologic: Alert, steel tester II-XII 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 Was a procedure done?: No Differential Dx Differential Diagnosis: Asthma, Panic Attack X-Ray, Labs, Meds, VS Vital Signs Date Time Temp Pulse Resp B/P (MAP) Pulse Ox O2 Delivery O2 Flow Rate FiO2 08/02/25 12:12 93 08/02/25 12:09 98.8 94 18 98/54 100 98.8 Time of 1ST Reevaluation: 12:45 Reevaluation 1ST: Unchanged Patient Education/Counseling: Diagnosis, Treatment, Prognosis Family Education/Counseling: No Family Present SEPSIS Sepsis Screen Date sepsis recognized/suspect: Aug 02, 2025 Time Sepsis recognized/suspect: 1211 Recent Procedure: No On Antibiotic Therapy: No Respiratory Rate >20: No Heart Rate >90: No Temp<36 C (96.8 F) or >38.3 C: No SBP <90 or MAP <65 mmHG: No New Acute Mental Status Change: No Is the patient on CPAP, BIPAP,: No Vital Signs Date Time Temp Pulse Resp B/P (MAP) Pulse Ox O2 Delivery O2 Flow Rate FiO2 08/02/25 12:12 93 08/02/25 12:09 98.8 94 18 98/54 100 98.8 Departure 1 Departure Time of Disposition: 13:17 (Patient is well known to the ER. In my judgment the patient likely has a an asthma exacerbation. Patient reports feeling well with clear lungs. Patient refusing x-ray at this time. We will discharge patient back to her facility) Impression: Primary Impression: Asthma exacerbation Disposition: [facility] Condition: Stable Additional Instructions: It is important to continue to take your regular medications. Critical Care Note Critical Care Time?: No Stability Stability form required: No Heart Score Heart Score: Heart Score Response (Comments) Value History N/A 0 EKG N/A 0 Age N/A 0 Risk Factors N/A 0 Troponin N/A 0 Total 0 I personally scribed for AISHWARYA HEREDIA MD ([email or web address]) on 08/02/25 at 12:29. E lectronically submitted by Amber Qureshi ([email or web address]). AISHWARYA HEREDIA MD Aug 02, 2025 12:29
[2025-08-02] MEDS: IPRATROPIUM BROM 0.5 MG/2.5ML INH SOL NEB ONE (13:43)
[2025-08-02] MEDS: ALBUTEROL SULF 2.5 MG/0.5ML(0.5%) NEB SOLN NEB ONE (13:44)
[2025-08-02 15:27] VITALS: BP 107/70; TEMP 97.1
[2025-08-02 15:28] VITALS: PULSE 98; RESP 18; O2SAT 95
== END 2025-08-02 15:46 | disposition home or self-care (01) ==
LOC: ER 11:58 → EDUNIT# 11:58 → EDBD 11:58 → ER 15:33
DX: J45.901 Unspecified asthma with (acute) exacerbation (principal); F20.9 Schizophrenia, unspecified; I10 Essential (primary) hypertension; F17.210 Nicotine dependence, cigarettes, uncomplicated; Z79.899 Other long term (current) drug therapy
CPT/HCPCS: 93005; 94640

== ENCOUNTER 2025-08-05 00:41 | Emergency (ER) | payer OTHER ==
[~2025-08-05] VITALS: Ht 165.1 cm; Wt 63.8 kg
[2025-08-05 01:51] VITALS: BP 102/59; PULSE 97; RESP 16; TEMP 97.8; O2SAT 97
--- NOTE | 2025-08-05 01:51 | ED.PDOC ---
SOB-HPI HPI Comments 55 year old female presents to ER with complaints cough x 1 day. Patient with PMH significant for COPD, asthma and schizophrenia presents VIA EMS from [facility] reporting that she pulled the fire alarm at her living facility "to get out of there" and then upon EMS arrival, she started complaining of a cough. Patient denies any pain, is well known to checking into this ER and presents to ER on 3L nasal cannula that she reports is her baseline, in no distress. Denies fever, body aches, chills, night sweats, chest pain or any further symptoms/complaints Chief Complaint: Cough Time Seen by MD: 01:03 Primary Care Provider: UNKNOWN Reviewed notes: Nurses Notes, Medications, Allergies Information Source: Patient Mode of Arrival: EMS Past Medical History PAST MEDICAL HISTORY: Asthma, COPD, Gallstones, GERD, HTN, Schizophrenia, UTI'S Surgical History: Denies all surgeries ORACLE IAM CONSULTANT History: Denies all ORACLE IAM CONSULTANT Hx Family History Family History: Reviewed,noncontributory to illness Social History Smoker: Cigarettes Alcohol: Denies ETOH Use Drugs: Denies Drug Use Lives In: Assisted Care Constitutional: denies: chills, diaphoresis, fatigue, fever, malaise, sweats, weakness, others EENTM: denies: blurred vision, double vision, ear bleeding, ear discharge, ear drainage, ear pain, ear ringing, eye pain, eye redness, hearing loss, mouth pain, mouth swelling, nasal discharge, nose bleeding, nose congestion, nose pain, photophobia, tearing, throat pain, throat swelling, voice changes, others Respiratory: reports: others (As stated in HPI) Cardiovascular: denies: chest pain, dizzy spells, diaphoresis, Dyspnea on exertion, edema, irregular heart beat, left arm pain, lightheadedness, palpitations, PND, syncope, others Gastrointestinal: denies: abdomen distended, abdominal pain, blood streaked bowels, constipated, diarrhea, dysphagia, difficulty swallowing, hematemesis, melena, nausea, poor appetite, poor fluid intake, rectal bleeding, rectal pain, vomiting, others Genitourinary: denies: abnormal vagina bleeding, burning, dyspareunia, dysuria, flank pain, frequency, hematuria, incontinence, pain, , vagina dischar ge, urgency, others Neurological: denies: dizziness, fainting, headache, left sided numbness, left sided weakness, numbness, paresthesia, pre-existing deficit, right sided numbness, right sided weakness, seizure, speech problems, tingling, tremors, weakness, others Musculoskeletal: denies: back pain, gout, joint pain, joint swelling, muscle pain, muscle stiffness, neck pain, others Integumetry: denies: bruises, change in color, change in hair/nails, dryness, laceration, lesions, lumps, rash, wounds, others Allergic/Immunocompromised: denies: Difficulty Healing, Frequent Infections, Hives, Itching, others Hematologic/Lymphatic: denies: anemia, blood clots, easy bleeding, easy bruising, swollen glands, others Endocrine: denies: excessive hunger, excessive sweating, excessive thirst, excessive urination, flushing, intolerance to cold, intolerance to heat, unexplained weight gain, unexplained weight loss, others Psychiatric: denies: anxiety, bipolar disorder, depression, hopeless, panic disorder, schizophrenia, sleepless, suicidal, others Physical Exam General Appearance: No Apparent Distress HEENT: Normal ENT Inspection, PERRL/EOMI, Pharynx Normal, TMs Normal Neck: Full Range of Motion, Non-Tender, Normal Respiratory: Chest Non-Tender, Lungs Clear, No Accessory Muscle Use, No Respiratory Distress, Normal Breath Sounds, Other (on 3L NC) Cardiovascular: No Murmur, No Gallop, Regular Rate/Rhythm Breast Exam: Deferred Gastrointestinal: NOT DONE Genitalia: Deferred Pelvic: Deferred Rectal: Deferred Extremities: Normal capillary refill, Normal range of motion Neurologic: Alert, No Motor Deficits, Normal Affect, Normal Mood, No Sensory Deficits Cerebellar Function: Normal Reflexes: Normal Skin: Dry, Normal Color, Warm Peripheral Pulses: 2+ Radial (R), 2+ Radial (L), 2+ Brachial (R), 2+ Brachial (L) Lymphatic: No Adenopathy Was a procedure done? Was a procedure done?: No Sedation Sedation?: No Differential Dx Differential Diagnosis: Pneumonia, Pulmonary Embolism, Respiratory Distress, URI X-Ray, Labs, Meds, VS Vital Signs Date Time Temp Pulse Resp B/P (MAP) Pulse Ox O2 Delivery O2 Flow Rate FiO2 08/05/25 01:51 Room Air* 0 21 08/05/25 01:51 97.8 97 16 102/59 (73) 97 97.8 08/05/25 00:49 97.8 97 16 102/59 97 97.8 Patient in no distress and vitals stable Advised to continue on at home oxygen therapy and continue on his medications as prescribed Advised to follow up with PCP in 1-2 days Advised to return to ER immediately if symptoms worsen Patient will be discharged back to [facility] Facility Time of 1ST Reevaluation: 01:24 Reevaluation 1ST: N/A Patient Education/Counseling: Diagnosis, Treatment, Prognosis, Need For Follow Up Family Education/Counseling: No Family Present SEPSIS Sepsis Screen Date sepsis recognized/suspect: Aug 05, 2025 Time Sepsis recognized/suspect: 004 Recent Procedure: No On Antibiotic Therapy: No Respiratory Rate >20: No Heart Rate >90: Yes Temp<36 C (96.8 F) or >38.3 C: No SBP <90 or MAP <65 mmHG: No New Acute Mental Status Change: No Is the patient on CPAP, BIPAP,: No Vital Signs Date Time Temp Pulse Resp B/P (MAP) Pulse Ox O2 Delivery O2 Flow Rate FiO2 08/05/25 01:51 Room Air* 0 21 08/05/25 01:51 97.8 97 16 102/59 (73) 97 97.8 08/05/25 00:49 97.8 97 16 102/59 97 97.8 Departure 1 Departure Time of Disposition: 01:50 Impression: Primary Impression: History of COPD Additional Impression: History of asthma Disposition: 03 [facility] ([facility] Condition: Stable Discharged With: Friend Critical Care Note Critical Care Time?: No Stability Stability form required: No Heart Score Heart Score: Heart Score Response (Comments) Value History N/A 0 EKG N/A 0 Age N/A 0 Risk Factors N/A 0 Troponin N/A 0 Total 0 KENTON PARTIDA Aug 05, 2025 01:51
== END 2025-08-05 01:59 | disposition home or self-care (01) ==
LOC: EDBD 00:41 → ER 00:41
DX: J44.89 Other specified chronic obstructive pulmonary disease (principal); F17.210 Nicotine dependence, cigarettes, uncomplicated; K21.9 Gastro-esophageal reflux disease without esophagitis; F20.9 Schizophrenia, unspecified; I10 Essential (primary) hypertension; Z87.440 Personal history of urinary (tract) infections

== ENCOUNTER 2025-08-06 02:54 | Emergency (ER) | payer OTHER ==
[~2025-08-06] VITALS: Ht 167.6 cm; Wt 68.0 kg
--- NOTE | 2025-08-06 03:30 | ECG ---
[facility] Test Date: 2025-08-06 Test Time: 03:24:59 Pat Name: NATIVIDAD URBAN Department: ED Room: Gender: F Validation Manager: NORBERTO : 1970 Requested By: ANGELITO REYES Order Number: [id number] Reading MD: Guanaco Camacho Measurements Intervals [place] Rate: 77 P: 88 DC: 125 QRS: 96 QRSD: 82 T: 82 QT: 377 QTc: 427 Interpretive Statements Sinus rhythm Anterior infarct, old ST elevation, consider inferior injury Baseline wander in lead(s) I,III,aVL Electronically Signed On 08-06-2025 9:10:51 PST by Guanaco Camacho Please click the below link to view image of tracing.
--- NOTE | 2025-08-06 03:36 | ED.PDOC ---
History of Present Illness HPI Comments 55-year-old female who came to ER via EMS. She resides at [facility] facility. She states she rang the fire alarm because people are trying to get her. Patient has been seen here multiple times for COPD exacerbation. Was seen here yesterday for the same thing. States she has been experiencing shortness of daniel ath again and chest discomfort while at the facility. Noted SBP 80-90's Review of systems: As stated in HPI PHYSICAL EXAM: General: Awake, alert and oriented. No acute distress. Skin: Skin in warm, dry and intact. Appropriate color for ethnicity. HEENT: The head is normocephalic and atraumatic. Conjunctivae are clear without exudates or hemorrhage. Sclera is non-icteric. Eyelids are normal in appearance without swelling or lesions. Oral mucosa is pink and moist Neck: The neck is supple with normal range of motion. No JVD. Cardiac: Heart rate and rhythm are normal. No murmurs, gallops, or rubs are auscultated. Respiratory: No signs of respiratory distress. Lung sounds are clear in all lobes bilaterally without rales, rhonchi, or wheezes. Abdominal: Abdomen is soft, non-tender without distention, guarding or rigidity. Bowel sounds are present and normoactive in all four quadrants. Extremities: Lower extremities without edema. Neurological: The patient is awake, alert Chief Complaint: Shortness of Breath Time Seen by MD: 03:35 Primary Care Provider: UNKNOWN Reviewed Notes: Salesforce Specialist Notes Allergies: Coded Allergies: Azithromycin (Verified Allergy, Severe, 08/02/25) Lactose (Verified Allergy, Severe, 11/15/24) Erythromycin (Verified Allergy, Intermediate, 07/19/25) Home Meds Active Scripts Albuterol Sulfate (Ventolin) 2 Mg/5 Ml Sr, 5 ML PO TID PRN for 30 Days, #150 ML 3 Refills Prov:ADAM SU DO 07/21/25 Loperamide Hcl (Imodium) 2 Mg Cp, 2 MG PO Q6HPRN PRN for 30 Days, #10 CAP Prov:JOYA PLATT BRAND REPRESENTATIVE 06/22/25 Divalproex Sodium (Divalproex Sodium) 500 Mg Tab, 500 MG PO BID for 30 Days, #60 MG Prov:JOYA PLATT BRAND REPRESENTATIVE 05/19/25 Haloperidol (Haldol) 5 Mg Tb, 3 MG PO BID for 30 Days, #60 MG Prov:JOYA PLATT BRAND REPRESENTATIVE 05/19/25 Benztropine Mesylate (Benztropine Mesylate) 1 Mg Tab, 1 MG PO BID for 30 Days, #60 MG Prov:JOYA PLATT BRAND REPRESENTATIVE 05/19/25 Trazodone Hcl (Trazodone Hcl) 50 Mg Tab, 75 MG PO HS for 30 Days, #45 MG Prov:JOYA PLATT BRAND REPRESENTATIVE 05/19/25 Reported Medications Haloperidol (Haldol) 5 Mg Tb, 5 MG PO BID, MG 07/19/25 Ondansetron Odt 4MG Tab (ZOFRAN PO) 4 Mg Tb, 4 MG PO, TAB ODT TAB-DISSOLVE IN MOUTH, THEN SWALLOW 07/16/25 Naproxen (NAPROSYN TABLET) 500 Mg Tb, 1 TAB PO BID, #60 TAB 1 Refill 07/16/25 Acetaminophen (Tylenol Extra Strength) 500 Mg Tab, 500 MG PO, TAB 07/16/25 Fluticasone-Salmeterol (Advair Diskus 250/50) 1 Puff Ih, 1 PUFF INH BID, #3 INHALER 3 Refills 07/16/25 Dextromethorphan-Guaifenesin (Tussin Dm Cough & Chest C 20-200 mg/20Ml) 1 Liq Liq, 1 LIQ PO, LIQ 07/16/25 Quetiapine Fumerate (Seroquel) 50 Mg Tab, 1 TAB PO QPM, #30 TAB 2 Refills 07/16/25 Pantoprazole Sodium (PANTOPRAZOLE SODIUM) 40 Mg Inj, 40 MG PO DAILY, INJ 07/16/25 Information Source: Patient Mode of Arrival: EMS Past Medical History PAST MEDICAL HISTORY: Asthma, COPD, Gallstones, GERD, HTN, Schizophrenia, UTI'S Surgical History: Denies all surgeries TRAFFIC WAREHOUSE SUPERVISOR History: Denies all TRAFFIC WAREHOUSE SUPERVISOR Hx Family History Family History: Reviewed,noncontributory to illness Social History Smoker: Cigarettes Alcohol: Denies ETOH Use Drugs: Denies Drug Use Lives In: Assisted Care Was a procedure done? Was a procedure done?: No Differential Dx Considerations may include: COPD, asthma, schizophrenia X-Ray, Labs, Meds, VS Vital Signs Date Time Temp Pulse Resp B/P (MAP) Pulse Ox O2 Delivery O2 Flow Rate FiO2 08/06/25 03:59 20 96 Nasal Cannula* 3 32 08/06/25 03:24 77 08/06/25 02:54 97.8 82 20 95/62 100 97.8 Current Medications Medications (Trade) Dose Ordered Sig/Elaine Route Start Time Stop Time Status Last Admin Albuterol (Ventolin Medneb) 2.5 mg ONCE ONCE NEB 08/06/25 03:45 08/06/25 03:46 DC 08/06/25 03:58 Time of 1ST Reevaluation: 03:28 Reevaluation 1ST: Unchanged Patient Education/Counseling: Need For Follow Up Family Education/Counseling: No Family Present SEPSIS Sepsis Screen Date sepsis recognized/suspect: Aug 06, 2025 Time Sepsis recognized/suspect: 253 Recent Procedure: No On Antibiotic Therapy: No Respiratory Rate >20: No Heart Rate >90: No Temp<36 C (96.8 F) or >38.3 C: No SBP <90 or MAP <65 mmHG: No New Acute Mental Status Change: No Is the patient on CPAP, BIPAP,: No Physician Orders Sodium Chloride 0.9% (08/06/25 03:45) Vital Signs Date Time Temp Pulse Resp B/P (MAP) Pulse Ox O2 Delivery O2 Flow Rate FiO2 08/06/25 03:59 20 96 Nasal Cannula* 3 32 08/06/25 03:24 77 08/06/25 02:54 97.8 82 20 95/62 100 97.8 Medications Medications Dose Ordered Sig/Elaine Route Start Time Stop Time Status Last Admin Dose Admin Albuterol 2.5 mg ONCE ONCE NEB 08/06/25 03:45 08/06/25 03:46 DC 08/06/25 03:58 Departure 1 Departure Time of Disposition: 04:27 Impression: Primary Impression: COPD (chronic obstructive pulmonary disease) Disposition: 01 HOME / SELF CARE / HOMELESS Condition: Stable Comments Patient's blood pressure slightly lower than baseline on review of previous visits. Normal saline bolus administered in the ED. Respiratory treatment administered in the ED. Patient is well-appearing, nontoxic, saturating well on her baseline oxygen. She is felt stable for discharge back to SNF for follow up with the primary care provider. Critical Care Note Critical Care Time?: No Stability Stability form required: No Heart Score Heart Score: Heart Score Response (Comments) Value History N/A 0 EKG N/A 0 Age N/A 0 Risk Factors N/A 0 Troponin N/A 0 Total 0 I personally scribed for ANGELITO REYES MD ([email or web address]) on 08/06/25 at 03:36. Electronically submitted by Evelio Caceres ([email or web address]). ANGELITO REYES MD Aug 06, 2025 03:36
[2025-08-06] MEDS ORDERED: ALBUTEROL SULF 2.5 MG/0.5ML(0.5%) NEB SOLN ONE (03:49)
[2025-08-06] MEDS: ALBUTEROL SULF 2.5 MG/0.5ML(0.5%) NEB SOLN NEB ONE (03:58)
[2025-08-06 06:13] VITALS: BP 97/48; PULSE 96; RESP 18; TEMP 97.5; O2SAT 92
[2025-08-06] MEDS: SODIUM CHLORIDE 0.9% 1,000 ML IV ONE (07:38)
[2025-08-08] MEDS ORDERED: ALBUTEROL SULF 2.5 MG/0.5ML(0.5%) NEB SOLN ONE (17:07)
[2025-08-08] MEDS ORDERED: IPRATROPIUM BROM 0.5 MG/2.5ML INH SOL ONE (17:07)
[2025-08-09] MEDS ORDERED: ALBUTEROL SULF 2.5 MG/0.5ML(0.5%) NEB SOLN ONE (04:44)
[2025-08-09] MEDS ORDERED: IPRATROPIUM BROM 0.5 MG/2.5ML INH SOL ONE (04:44)
[2025-08-12] MEDS ORDERED: cefTRIAXone SOD 1,000 MG VL ONE (01:53)
[2025-08-14] MEDS ORDERED: ALBUTEROL SULF 2.5 MG/0.5ML(0.5%) NEB SOLN ONE (02:27)
[2025-08-14] MEDS ORDERED: IPRATROPIUM BROM 0.5 MG/2.5ML INH SOL ONE (02:27)
== END 2025-08-06 08:36 | disposition home or self-care (01) ==
LOC: ER 02:54 → EDBD 02:54 → ER 08:36
DX: J44.89 Other specified chronic obstructive pulmonary disease (principal); F17.210 Nicotine dependence, cigarettes, uncomplicated; F20.9 Schizophrenia, unspecified; I10 Essential (primary) hypertension; Z79.899 Other long term (current) drug therapy; Z88.1 Allergy status to other antibiotic agents; Z87.440 Personal history of urinary (tract) infections; Z79.51 Long term (current) use of inhaled steroids
CPT/HCPCS: 93005; 94640

== ENCOUNTER 2025-08-08 12:57 | Inpatient (IN) | payer OTHER ==
[~2025-08-08] VITALS: Ht 165.1 cm; Wt 50.0 kg
--- NOTE | 2025-08-08 15:02 | ED.PDOC ---
SOB-HPI HPI Comments 55 y/o F, with PMHx of schizophrenia, asthma, and COPD presents to the ED for CC of shortness of breath. Patient states, she has been experiencing shortness of breath sudden onset, today (08/08/25). Patient reports, to have had a persistent cough for xmonths. Patient denies fever, chills, palpitations, shortness of breath, dizziness, or headache. No other symptoms or modifying factors are present at this time. Chief Complaint: Shortness of Breath Time Seen by MD: 14:50 Primary Care Provider: UNKNOWN Reviewed notes: Nurses Notes, Promotion Writer Notes, Medications, Allergies Information Source: Patient, Emergency Med Personnel Mode of Arrival: EMS Severity: Moderate Timing: Minutes Duration: Since onset Context: Spontaneous Onset PE Risk Factors: None History of: Asthma, COPD Prehospital treatment: Breathing Tx Modifying Factors: Nothing Associated Signs and Symptoms: Cough Past Medical History PAST MEDICAL HISTORY: Asthma, COPD, Gallstones, GERD, HTN, Schizophrenia, UTI'S Surgical History: Denies all surgeries ENERGY PROJECT ENGINEER History: Denies all ENERGY PROJECT ENGINEER Hx Family History Family History: Reviewed,noncontributory to illness Social History Smoker: Cigarettes Alcohol: Denies ETOH Use Drugs: Denies Drug Use Lives In: Assisted Care Constitutional: denies: chills, diaphoresis, fatigue, fever, malaise, sweats, weakness, others EENTM: denies: blurred vision, double vision, ear bleeding, ear discharge, ear drainage, ear pain, ear ringing, eye pain, eye redness, hearing loss, mouth pain, mouth swelling, nasal discharge, nose bleeding, nose congestion, nose pain , photophobia, tearing, throat pain, throat swelling, voice changes, others Respiratory: reports: cough, shortness of breath; denies: hemoptysis, orthopnea, SOB at rest, SOB with excertion, stridor, wheezing, others Cardiovascular: denies: chest pain, dizzy spells, diaphoresis, Dyspnea on exertion, edema, irregular heart beat, left arm pain, lightheadedness, palpitations, PND, syncope, others Gastrointestinal: denies: abdomen distended, abdominal pain, blood streaked bowels, constipated, diarrhea, dysphagia, difficulty swallowing, hematemesis, melena, nausea, poor appetite, poor fluid intake, rectal bleeding, rectal pain, vomiting, others Genitourinary: denies: abnormal vagina bleeding, burning, dyspareunia, dysuria, flank pain, frequency, hematuria, incontinence, pain, , vagina discharge, urgency, others Neurological: denies: dizziness, fainting, headache, left sided numbness, left sided weakness, numbness, paresthesia, pre-existing deficit, right sided numbness, right sided weakness, seizure, speech problems, tingling, tremors, weakness, others Musculoskeletal: denies: back pain, gout, joint pain, joint swelling, muscle pain, muscle stiffness, neck pain, others Integumetry: denies: bruises, change in color, change in hair/nails, dryness, laceration, lesions, lumps, rash, wounds, others Allergic/Immunocompromised: denies: Difficulty Healing, Frequent Infections, Hives, Itching, others Hematologic/Lymphatic: denies: anemia, blood clots, easy bleeding, easy bruising, swollen glands, others Endocrine: denies: excessive hunger, excessive sweating, excessive thirst, excessive urination, flushing, intolerance to cold, intolerance to heat, unexplained weight gain, unexplained weight loss, others Psychiatric: denies: anxiety, bipolar disorder, depression, hopeless, panic disorder, schizophrenia, sleepless, suicidal, others All Other Systems: Reviewed and Negative Physical Exam General Appearance: No Apparent Distress, Normal HEENT: Normal ENT Inspection, Pharynx Normal Neck: Full Range of Motion, Non-Tender, Normal, Normal Inspection Respiratory: Chest Non-Tender, Lungs Clear, No Accessory Muscle Use, No Respiratory Distress, Normal Breath Sounds Cardiovascular: No Edema, No Murmur, No Gallop, Normal Peripheral Pulses, Regular Rate/Rhythm Breast Exam: Deferred Gastrointestinal: No Organomegaly, Non Tender, No Pulsatile Mass, Normal Bowel Sounds, Soft Genitalia: Deferred Pelvic: Deferred Rectal: Deferred Extremities: No calf tenderness, Normal capillary refill, Normal inspection, Normal range of motion, Non-tender, No pedal edema Musculoskeletal : Apperance: Normal Neurologic: Alert, head sugar reprocess 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 Was a procedure done?: No Differential Dx Differential Diagnosis: Asthma, COPD, Sinusitis, Pharyngitis, URI X-Ray, Labs, Meds, VS Vital Signs Date Time Temp Pulse Resp B/P (MAP) Pulse Ox O2 Delivery O2 Flow Rate FiO2 08/08/25 13:01 100 Nasal Cannula* 4 36 08/08/25 13:01 98.2 103 19 108/69 100 98.2 Time of 1ST Reevaluation: 15:20 Reevaluation 1ST: Unchanged Reevaluation 2ND: Improved Patient Education/Counseling: Diagnosis, Treatment, Prognosis, Need For Follow Up Family Education/Counseling: No Family Present Additional Information This is a patient who who use methamphetamine, and COPD. She presents with shortness of breath and the cough. Her oxygen saturation is 100% on room air. Lungs are clear. Chest x-ray shows COPD. She is stable for discharge. I will start her on prednisone and refill her albuterol. SEPSIS Sepsis Screen Date sepsis recognized/suspect: Aug 08, 2025 Time Sepsis recognized/suspect: 1303 Recent Procedure: No On Antibiotic Therapy: No Respiratory Rate >20: No Heart Rate >90: Yes Temp<36 C (96.8 F) or >38.3 C: No SBP <90 or MAP <65 mmHG: No New Acute Mental Status Change: No Is the patient on CPAP, BIPAP,: No Physician Orders Chest Portable (08/08/25 15:00) Vital Signs Date Time Temp Pulse Resp B/P (MAP) Pulse Ox O2 Delivery O2 Flow Rate FiO2 08/08/25 13:01 100 Nasal Cannula* 4 36 08/08/25 13:01 98.2 103 19 108/69 100 98.2 Departure 1 Departure Time of Disposition: 16:16 Impression: Primary Impression: COPD (chronic obstructive pulmonary disease) Additional Impression: Methamphetamine abuse Disposition: HOME / SELF CARE / HOMELESS Condition: Good e-Prescriptions Ipratropium-Albuterol (COMBIVENT RESPIMAT) Respimat Aer 1 PUFF IN Q4HP PRN, #1 AER Prov: KEYUR BEAVER MD 08/08/25 Prednisone (Prednisone) 20 Mg Tab 20 MG PO DAILY for 5 Days, #5 MG Prov: KEYUR BEAVER MD 08/08/25 Discharged With: Self Critical Care Note Critical Care Time?: No Stability Stability form required: No Heart Score Heart Score: Heart Score Response (Comments) Value History N/A 0 EKG N/A 0 Age N/A 0 Risk Factors N/A 0 Troponin N/A 0 Total 0 I personally scribed for KEYUR BEAVER MD ([email or web address]) on 08/08/25 at 15:02. El ectronically submitted by Muna Verdugo ([email or web address]). KEYUR BEAVER MD Aug 08, 2025 15:02
--- NOTE | 2025-08-08 15:34 | DVH ---
CHEST RADIOGRAPH Indication: cough Technique: Single frontal view of the chest was obtained COMPARISON: XY CHEST PORTABLE on DOS: 07/25/25, XY CHEST PORTABLE on DOS: 07/24/25, XY CHEST PORTABLE on DOS: 07/19/25, XY CHEST PORTABLE on DOS: 07/16/25, XY CHEST PORTABLE on DOS: 07/15/25 FINDINGS: Lines and Tubes: None Lungs: Hyperinflated suggestive of COPD. Pleura: No effusion.No pneumothorax. Cardiomediastinal contours: Unremarkable Bones: Unremarkable IMPRESSION: Hyperinflated lungs suggestive of COPD.
[2025-08-08] MEDS ORDERED: PRED20TA2 PO (16:16)
[2025-08-08] MEDS ORDERED: IPRAAER6 IN (16:17)
[2025-08-08] MEDS: ALBUTEROL SULF 2.5 MG/0.5ML(0.5%) NEB SOLN NEB ONE (17:21)
[2025-08-08] MEDS: IPRATROPIUM BROM 0.5 MG/2.5ML INH SOL NEB ONE (17:21)
[2025-08-08 17:30] VITALS: PULSE 93; RESP 25; O2SAT 93
[2025-08-08] MEDS: predniSONE 20 MG TAB PO ONE (19:05)
[2025-08-08 19:30] VITALS: RESP 22; O2SAT 98
--- NOTE | 2025-08-08 19:54 | DVHHP2 ---
History of Present Illness HPI 55 y/o F, with PMHx of schizophrenia, asthma, and COPD presents to the ED for CC of shortness of breath. Patient states, she has been experiencing shortness of breath sudden onset, today (08/08/25). Patient reports, to have had a persistent cough for xmonths. Patient denies fever, chills, palpitations, shortness of b reath, dizziness, or headache. No other symptoms or modifying factors are present at this time. Home Meds Active Scripts Gabapentin (Once-Daily) (Gabapentin) 300 Mg Tab, 300 MG PO Q6HP PRN, #60 TAB Prov:MANDY OJEDA MD 08/15/25 Ondansetron Odt 4MG Tab (ZOFRAN PO) 4 Mg Tb, 4 MG PO Q6HP PRN, #30 TAB ODT TAB-DISSOLVE IN MOUTH, THEN SWALLOW Prov:MANDY OJEDA MD 08/15/25 Azithromycin (Azithromycin) 500 Mg Tab, 1 TAB PO DAILY for 3 Days, #3 TAB Prov:MANDY OJEDA MD 08/14/25 Prednisone (Prednisone) 20 Mg Tab, 20 MG PO BID for 5 Days, #10 TAB Prov:MANDY OJEDA MD 08/14/25 Albuterol Sulfate (Albuterol Sulfate Hfa) 108 Mcg/Act Aer, 108 MCG IN Q6HP PRN, #1 AER Prov:MANDY OJEDA MD 08/14/25 Prednisone (Prednisone) 20 Mg Tab, 20 MG PO BID for 5 Days, #10 TAB Prov:MANDY OJEDA MD 08/12/25 Azithromycin (Azithromycin) 500 Mg Tab, 1 TAB PO DAILY for 3 Days, #3 TAB Prov:MANDY OJEDA MD 08/12/25 Albuterol Sulfate (Albuterol Sulfate Hfa) 108 Mcg/Act Aer, 108 MCG IN Q6HP PRN, #1 AER 3 Refills Prov:MANDY OJEDA MD 08/12/25 Acetaminophen (Acetaminophen) 500 Mg Tab, 500 MG PO Q4HPRN, #30 TAB 0 Refills Prov:KENTON PARTIDA 08/12/25 Sulfamethoxazole W/Trimethopri (Bactrim Ds Tablet) 1 Tab Tb, 1 TAB PO BID for 7 Days, #14 TAB 0 Refills Prov:KENTON PARTIDA 08/12/25 Benzonatate (Benzonatate) 100 Mg Cap, 1 CAP PO TID for 30 Days, #30 CAP Prov:ADAM SU DO 08/10/25 Quetiapine Fumerate (QUETIAPINE FUMARATE) 100 Mg Tab, 100 MG PO BID for 30 Days, #60 TAB 5 Refills Prov:ADAM SU DO 08/10/25 Ipratropium-Albuterol (COMBIVENT RESPIMAT) Respimat Aer, 1 PUFF IN Q4HP PRN, #1 AER Prov:KEYUR BEAVER MD 08/08/25 Prednisone (Prednisone) 20 Mg Tab, 20 MG PO DAILY for 5 Days, #5 MG Prov:KEYUR BEAVER MD 08/08/25 Albuterol Sulfate (Ventolin) 2 Mg/5 Ml Sr, 5 ML PO TID PRN for 30 Days, #150 ML 3 Refills Prov:ADAM SU DO 07/21/25 Loperamide Hcl (Imodium) 2 Mg Cp, 2 MG PO Q6HPRN PRN for 30 Days, #10 CAP Prov:JOYA PLATT NP 06/22/25 Divalproex Sodium (Divalproex Sodium) 500 Mg Tab, 500 MG PO BID for 30 Days, #60 MG Prov:JOYA PLATT NP 05/19/25 Haloperidol (Haldol) 5 Mg Tb, 3 MG PO BID for 30 Days, #60 MG Prov:JOYA PLATT NP 05/19/25 Benztropine Mesylate (Benztropine Mesylate) 1 Mg Tab, 1 MG PO BID for 30 Days, #60 MG Prov:JOYA PLATT NP 05/19/25 Trazodone Hcl (Trazodone Hcl) 50 Mg Tab, 75 MG PO HS for 30 Days, #45 MG Prov:JOYA PLATT NP 05/19/25 Reported Medications Haloperidol (Haldol) 5 Mg Tb, 5 MG PO BID, MG 07/19/25 Ondansetron Odt 4MG Tab (ZOFRAN PO) 4 Mg Tb, 4 MG PO, TAB ODT TAB-DISSOLVE IN MOUTH, THEN SWALLOW 07/16/25 Naproxen (NAPROSYN TABLET) 500 Mg Tb, 1 TAB PO BID, #60 TAB 1 Refill 07/16/25 Acetaminophen (Tylenol Extra Strength) 500 Mg Tab, 500 MG PO, TAB 07/16/25 Fluticasone-Salmeterol (Advair Diskus 250/50) 1 Puff Ih, 1 PUFF INH BID, #3 INHALER 3 Refills 07/16/25 Dextromethorphan-Guaifenesin (Tussin Dm Cough & Chest C 20-200 mg/20Ml) 1 Liq Liq, 1 LIQ PO, LIQ 07/16/25 Quetiapine Fumerate (Seroquel) 50 Mg Tab, 1 TAB PO QPM, #30 TAB 2 Refills 07/16/25 Pantoprazole Sodium (PANTOPRAZOLE SODIUM) 40 Mg Inj, 40 MG PO DAILY, INJ 07/16/25 Past Medical History Patient Family History: Anxiety disorder FH: COPD (chronic obstructive pulmonary disease) FH: schizophrenia H&P Exam Vital Signs Vital Signs Date Time Temp Pulse Resp B/P (MAP) Pulse Ox O2 Delivery O2 Flow Rate FiO2 08/08/25 18:00 85 24 113/46 (68) 97 08/08/25 17:30 Nasal Cannula* 4 36 08/08/25 17:30 98.2 98.2 SEPSIS Sepsis Screen Date sepsis recognized/suspect: Aug 08, 2025 Time Sepsis recognized/suspect: 1729 Recent Procedure: No On Antibiotic Therapy: No Respiratory Rate >20: Yes Heart Rate >90: No Temp<36 C (96.8 F) or >38.3 C: No SBP <90 or MAP <65 mmHG: No New Acute Mental Status Change: No Is the patient on CPAP, BIPAP,: No Physician Orders Chest Portable (08/08/25 15:00) Electrocardigram (08/08/25 17:56) Vital Signs Date Time Temp Pulse Resp B/P (MAP) Pulse Ox O2 Delivery O2 Flow Rate FiO2 08/08/25 18:00 85 24 113/46 (68) 97 08/08/25 17:30 93 25 93 Nasal Cannula* 4 36 08/08/25 17:30 98.2 93 25 113/46 (68) 93 98.2 08/08/25 17:22 20 95 Simple Mask* 8 60 08/08/25 16:43 97.7 106 20 121/76 (91) 79 97.7 08/08/25 13:10 89 91 Nasal Cannula 2.0 08/08/25 13:03 104 08/08/25 13:01 100 Nasal Cannula* 4 36 08/08/25 13:01 98.2 103 19 108/69 100 98.2 Medications Medications Dose Ordered Sig/Elaine Route Start Time Stop Time Status Last Admin Dose Admin Albuterol 10 mg ONCE ONCE NEB 08/08/25 17:15 08/08/25 17:16 DC 08/08/25 17:21 10 MG Ipratropium [place] 0.5 mg ONCE ONCE NEB 08/08/25 17:15 08/08/25 17:16 DC 08/08/25 17:21 0.5 MG Prednisone 40 mg ONCE ONCE PO 08/08/25 17:15 08/08/25 17:16 DC 08/08/25 19:05 40 MG Assessment/Plan Primary Diagnosis 55 y/o F, with PMHx of schizophrenia, asthma, and COPD presents to the ED for CC of shortness of breath. Patient states, she has been experiencing shortness of breath sudden onset, today (08/08/25). Patient reports, to have had a persistent cough for xmonths. Patient denies fever, chills, palpitations, shortness of breath, dizziness, or headache. No other symptoms or modifying factors are present at this time. dyspnea acute on chronic CHF anxiety admitted to med/surg consult to pulm if needed Plan discussed with: Patient ADAM SU DO Aug 08, 2025 19:54
[2025-08-08] MEDS ORDERED: HYDROcodone-ACET 5/325MG TAB PO PRN (20:00)
[2025-08-08] MEDS ORDERED: MORPHINE SULFATE INJ 2 MG/ml SYRG IV PRN ×2 (20:00)
[2025-08-08] MEDS ORDERED: NITROGLYCERIN 0.4 MG SL TAB SL PRN (20:00)
[2025-08-09] MEDS: ACETAMINOPHEN 325 MG TAB PO PRN (03:56)
[2025-08-09] MEDS: IPRATROPIUM BROM 0.5 MG/2.5ML INH SOL NEB ONE (04:47)
[2025-08-09] MEDS: ALBUTEROL SULF 2.5 MG/0.5ML(0.5%) NEB SOLN NEB ONE (04:48)
[2025-08-09 05:18] LABS: Hematocrit 41.4 % (36.0-46.0); Hemoglobin 13.4 g/dL (12.2-16.2); Mean Corpuscular Hemoglobin 31.9 pg (28.0-32.0); Mean Corpuscular Volume 98.6 fL (80.0-100.0); Nucleated Red Blood Cells % 0.1 %
[2025-08-09 05:36] LABS: Alkaline Phosphatase 74 U/L (46-116); Anion Gap 6 (5-15); BUN/Creatinine Ratio 14.1 (10.0-20.0); Blood Urea Nitrogen 10 mg/dL (9-23); Calcium 9.0 mg/dL (8.7-10.4); Chloride 103 mmol/L (98-107); Potassium 4.9 mmol/L (3.5-5.1)
[2025-08-09 05:37] LABS: Albumin 3.8 g/dL (3.2-4.8); Bilirubin, Total 0.3 mg/dL (0.2-1.0)
[2025-08-09 05:42] LABS: Alanine Aminotransferase < 9 U/L (7-40); Carbon Dioxide 38 mmol/L (20-31); Glucose 120 mg/dL (74-106); Sodium 147 mmol/L (136-145); Total Protein 5.6 g/dL (5.7-8.2)
[2025-08-09 08:00] VITALS: PULSE 69; RESP 22; TEMP 97.8; O2SAT 92
--- NOTE | 2025-08-09 08:21 | ECG ---
[facility] Test Date: 2025-08-08 Test Time: 13:03:17 Pat Name: NATIVIDAD URBAN Department: ED Room: 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
[2025-08-09 09:00] VITALS: BP 90/50; PULSE 87; RESP 24; O2SAT 94
[2025-08-09] MEDS ORDERED: ENOXAPARIN SOD 40 MG/0.4 ML SYRINGE SC SCH (10:00)
[2025-08-10] MEDS ORDERED: BENZ100C97 PO (15:50)
[2025-08-10] MEDS ORDERED: QUET100T47 PO (15:50)
--- NOTE | 2025-08-17 16:21 | DVHDS2 ---
Discharge Summary Date of Admission Aug 08, 2025 at 19:54 Date of Discharge: Aug 09, 2025 Labs/Diagnostic Data: Laboratory Results Test 08/09/25 04:33 White Blood Count 3.3 10^3/uL (4.4-10.8) Red Blood Count 4.20 10^6/uL (4.0-5.20) Hemoglobin 13.4 g/dL (12.2-16.2) Hematocrit 41.4 % (36.0-46.0) Mean Corpuscular Volume 98.6 fL (80.0-100.0) Mean Corpuscular Hemoglobin 31.9 pg (28.0-32.0) Mean Corpuscular Hemoglobin Concent 32.4 g/dL (32.0-36.0) Red Cell Distribution Width 16.4 % (11.8-14.3) Platelet Count 184 10^3/uL (140-450) Mean Platelet Volume 8.6 fL (6.9-10.8) Neutrophils (%) (Auto) 87.5 % (37.0-80.0) Lymphocytes (%) (Auto) 10.4 % (10.0-50.0) Monocytes (%) (Auto) 1.9 % (0.0-12.0) Eosinophils (%) (Auto) 0.1 % (0.0-7.0) Basophils (%) (Auto) 0.1 % (0.0-2.0) Neutrophils # (Auto) 2.9 10 ^3/uL (1.6-8.6) Lymphocytes # (Auto) 0.3 10 ^3/uL (0.4-5.4) Monocytes # (Auto) 0.1 10 ^3/uL (0-1.3) Eosinophils # (Auto) 0 10 ^3/uL (0-0.8) Basophils # (Auto) 0 10 ^3/uL (0-0.2) Nucleated Red Blood Cells 0.1 % Sodium Level 147 mmol/L (136-145) Potassium Level 4.9 mmol/L (3.5-5.1) Chloride Level 103 mmol/L (98-107) Carbon Dioxide Level 38 mmol/L (20-31) Anion Gap 6 (5-15) Blood Urea Nitrogen 10 mg/dL (9-23) Creatinine 0.71 mg/dL (0.550-1.02) Glomerular Filtration Rate Calc 100 mL/min (>90) BUN/Creatinine Ratio 14.1 (10.0-20.0) Serum Glucose 120 mg/dL (74-106) Calcium Level 9.0 mg/dL (8.7-10.4) Total Bilirubin 0.3 mg/dL (0.2-1.0) Aspartate Amino Transferase (AST) 10 U/L (13-40) Alanine Aminotransferase (ALT) < 9 U/L (7-40) Alkaline Phosphatase 74 U/L (46-116) Total Protein 5.6 g/dL (5.7-8.2) Albumin 3.8 g/dL (3.2-4.8) Other Laboratory Tests 08/09/25 04:33 Brief Hx & Hospital Course: 55 y/o F, with PMHx of schizophrenia, asthma, and COPD presents to the ED for CC of shortness of breath. Patient states, she has been experiencing shortness of breath sudden onset, today (08/08/25). Patient reports, to have had a persistent cough for xmonths. Patient denies fever, chills, palpitations, shortness of breath, dizziness, or headache. No other symptoms or modifying factors are present at this time. dyspnea acute on chronic CHF anxiety admitted to med/surg consult to pulm if needed pt left AMA after my round Condition at Discharge: Fair Final Diagnosis/Problems List aucte hypoxia Discharge Disposition: AMA Discharge Instruct/Medications Scheduled Acetaminophen (Acetaminophen), 500 MG PO Q4HPRN Azithromycin (Azithromycin), 1 TAB PO DAILY Azithromycin (Azithromycin), 1 TAB PO DAILY Benzonatate (Benzonatate), 1 CAP PO TID Benztropine Mesylate (Benztropine Mesylate), 1 MG PO BID Divalproex Sodium (Divalproex Sodium), 500 MG PO BID Fluticasone-Salmeterol (Advair Diskus 250/50), 1 PUFF INH BID, (Reported) Haloperidol (Haldol), 3 MG PO BID Haloperidol (Haldol), 5 MG PO BID, (Reported) Naproxen (Naprosyn Tablet), 1 TAB PO BID, (Reported) Pantoprazole Sodium (Pantoprazole Sodium), 40 MG PO DAILY, (Reported) Prednisone (Prednisone), 20 MG PO DAILY Prednisone (Prednisone), 20 MG PO BID Prednisone (Prednisone), 20 MG PO BID Quetiapine Fumerate (Seroquel), 1 TAB PO QPM, (Reported) Quetiapine Fumerate (Quetiapine Fumarate), 100 MG PO BID Sulfamethoxazole W/Trimethopri (Bactrim Ds Tablet), 1 TAB PO BID Trazodone Hcl (Trazodone Hcl), 75 MG PO HS Scheduled PRN Albuterol Sulfate (Ventolin), 5 ML PO TID PRN Albuterol Sulfate (Albuterol Sulfate Hfa), 108 MCG IN Q6HP PRN Albuterol Sulfate (Albuterol Sulfate Hfa), 108 MCG IN Q6HP PRN Gabapentin (Once-Daily) (Gabapentin), 300 MG PO Q6HP PRN Ipratropium-Albuterol (Combivent Respimat), 1 PUFF IN Q4HP PRN Loperamide Hcl (Imodium), 2 MG PO Q6HPRN PRN Ondansetron Odt 4MG Tab (Zofran Po), 4 MG PO Q6HP PRN Miscellaneous Medications Acetaminophen (Tylenol Extra Strength), 500 MG PO, (Reported) Dextromethorphan-Guaifenesin (Tussin Dm Cough & Chest C 20-200 mg/20Ml), 1 LIQ PO, (Reported) Ondansetron Odt 4MG Tab (Zofran Po), 4 MG PO, (Reported) Discharge Statement: "Patient was advised to return to the ER or call 911 if any headaches, dizziness, shortness of breath, chest pain, abdominal pain, bleeding, fevers, or worsening of medical condition. Patient was counseled about treatment plan, medications, possible side effects, patientverbalized understanding. All questions were answered to the best of my ability. This discharge took greater then 30 minutes in planning, reviewing documentation, counseling the patient, and discussing with other team members." ASSESSMENT ASSESSMENT Assessment Date of Service: Aug 09, 2025 Billing Provider: ADAM SU DO Common Visit Codes: 21791-GON/OBS DISCH DAY >30min ADAM SU DO Aug 17, 2025 16:21
== END 2025-08-09 09:29 | disposition left against medical advice (07) | DRG 140 ==
LOC: EDBD 12:57 → ER 12:57 → OVERFLOW 19:54
PROVIDERS: ADMIT Internal Medicine; ATTEND Internal Medicine
DX: J44.1 Chronic obstructive pulmonary disease with (acute) exacerbation (principal); F15.10 Other stimulant abuse, uncomplicated; I10 Essential (primary) hypertension; F20.9 Schizophrenia, unspecified; F17.210 Nicotine dependence, cigarettes, uncomplicated; K21.9 Gastro-esophageal reflux disease without esophagitis; Z53.29 Procedure and treatment not carried out because of patient's decision for other reasons; Z81.8 Family history of other mental and behavioral disorders; Z82.5 Family history of asthma and other chronic lower respiratory diseases
CPT/HCPCS: 36415; 71045; 80053; 85025; 93005; 94640; G0378

== ENCOUNTER 2025-08-09 20:11 | Inpatient (IN) | payer OTHER ==
[~2025-08-09] VITALS: Ht 157.5 cm; Wt 55.0 kg
[~2025-08-09 20:11] MED LIST changes: +IPRAAER6 IN; +PRED20TA2 PO
--- NOTE | 2025-08-09 20:49 | ED.PDOC ---
SOB-HPI HPI Comments Pt reports to the ER for the c/c of SOB. Pt was in the ER/seen by at 1500 for same complaint here is the HPI from earlier "55 y/o F, with PMHx of schizophrenia, asthma, and COPD presents to the ED for CC of shortness of breath. Patient states, she has been experiencing shortness of breath sudden onset, today (08/08/25). Patient reports, to have had a persistent cough for xmonths. Patient denies fever, chills, palpitations, shortness of breath, d izziness, or headache. No other symptoms or modifying factors are present at this time." Chief Complaint: Shortness of Breath Time Seen by MD: 20:45 Primary Care Provider: UNKNOWN Reviewed notes: Nurses Notes, Medications, Allergies Information Source: Patient Mode of Arrival: EMS Severity: Moderate Timing: Months Duration: Since onset Context: Spontaneous Onset PE Risk Factors: None History of: COPD Prehospital treatment: None Associated Signs and Symptoms: Cough If cough with SOB: Non-Productive Past Medical History PAST MEDICAL HISTORY: Asthma, COPD, HTN, Schizophrenia, UTI'S Surgical History: Denies all surgeries NURSING PROGRAM MANAGER History: Denies all NURSING PROGRAM MANAGER Hx Family History Family History: Reviewed,noncontributory to illness, Unknown Social History Smoker: Cigarettes Alcohol: Denies ETOH Use Drugs: Methamphetamine Lives In: Assisted Care Constitutional: denies: chills, diaphoresis, fatigue, fever, malaise, sweats, weakness, others EENTM: denies: blurred vision, double vision, ear bleeding, ear discharge, ear drainage, ear pain, ear ringing, eye pain, eye redness, hearing loss, mouth pain, mouth swelling, nasal discharge, nose bleeding, nose congestion, nose pain, photophobia, tearing, throat pain, throat swelling, voice changes, others Respiratory: reports: cough, shortness of breath; denies: hemoptysis, orthopnea, SOB at rest, SOB with excertion, stridor, wheezing, others Cardiovascular: denies: chest pain, dizzy spells, diaphoresis, Dyspnea on exertion, edema, irregular heart beat, left arm pain, lightheadedness, palpitations, PND, syncope, others Gastrointestinal: denies: abdomen distended, abdominal pain, blood streaked bowels, constipated, diarrhea, dysphagia, difficulty swallowing, hematemesis, melena, nausea, poor appetite, poor fluid intake, rectal bleeding, rectal pain, vomiting, others Genitourinary: denies: abnormal vagina bleeding, burning, dyspareunia, dysuria, flank pain, frequency, hematuria, incontinence, pain, , vagina disch arge, urgency, others Neurological: denies: dizziness, fainting, headache, left sided numbness, left sided weakness, numbness, paresthesia, pre-existing deficit, right sided numbness, right sided weakness, seizure, speech problems, tingling, tremors, weakness, others Musculoskeletal: denies: back pain, gout, joint pain, joint swelling, muscle pain, muscle stiffness, neck pain, others Integumetry: denies: bruises, change in color, change in hair/nails, dryness, laceration, lesions, lumps, rash, wounds, others Allergic/Immunocompromised: denies: Difficulty Healing, Frequent Infections, Hives, Itching, others Hematologic/Lymphatic: denies: anemia, blood clots, easy bleeding, easy bruising, swollen glands, others Endocrine: denies: excessive hunger, excessive sweating, excessive thirst, excessive urination, flushing, intolerance to cold, intolerance to heat, unexplained weight gain, unexplained weight loss, others Psychiatric: denies: anxiety, bipolar disorder, depression, hopeless, panic disorder, schizophrenia, sleepless, suicidal, others All Other Systems: Reviewed and Negative Physical Exam General Appearance: Moderate Distress, Thin HEENT: Normal ENT Inspection, PERRL/EOMI, Pharynx Normal, TMs Normal Neck: Full Range of Motion, Non-Tender, Normal, Normal Inspection Respiratory: Chest Non-Tender, Crackles, Decreased Breath Sounds, Expiration, Inspiration, No Accessory Muscle Use, No Respiratory Distress, Rhonchi Cardiovascular: No Edema, No JVD, No Murmur, No Gallop, Normal Peripheral Pulses, Regular Rate/Rhythm Breast Exam: Deferred Gastrointestinal: No Organomegaly, Non Tender, No Pulsatile Mass, Normal Bowel Sounds, Soft Genitalia: Deferred Pelvic: Deferred Rectal: Deferred Extremities: No calf tenderness, Normal capillary refill, Normal inspection, Normal range of motion, Non-tender, No pedal edema Musculoskeletal : Apperance: Normal Neurologic: Alert, flow trader II-XII nml as Tested, Depressed Affect, No Motor Deficits, No Sensory Deficits Cerebellar Function: NOT DONE Reflexes: NOT DONE Skin: Dry, Normal Color, Warm Peripheral Pulses: 1+ carotid (R), 1+ carotid (L) Lymphatic: No Adenopathy EKG EKG : Pulse Rate (adult): 89 [place]: RAD Cardiac Rhythm: NSR Was a procedure done? Was a procedure done?: No Differential Dx Differential Diagnosis: Anxiety, COPD, Hyperventilation, Pneumonia, Respiratory Distress, URI X-Ray, Labs, Meds, VS Vital Signs Date Time Temp Pulse Resp B/P (MAP) Pulse Ox O2 Delivery O2 Flow Rate FiO2 08/09/25 21:38 14 98 Nasal Cannula* 3 32 08/09/25 21:02 89 08/09/25 20:23 100 Nasal Cannula* 4 36 08/09/25 20:18 97.8 92 30 108/66 100 97.8 08/09/25 20:15 89 Lab Test 08/09/25 21:40 08/09/25 21:25 Range/Units Magnesium Level Pending Troponin I High Sensitivity Pending Blood Gas Specimen Type Arterial Blood Gas Sample Site Left radial Blood Gas Patient Temperature 37.0 Arterial Blood Date Drawn Arterial Blood pH 7.312 L 7.350-7.450 Arterial Blood Partial Pressure CO2 72.6 *H 32.0-45.0 mmHg Arterial Blood Partial Pressure O2 74.2 L 83.0-108.0 mmHg Arterial Blood HCO3 35.9 H 21.0-28.0 mmol/L Arterial Blood Oxygen Saturation 93.5 L 94.0-98.0 % Arterial Blood Base Excess 6.9 H -2.0-3.0 mmol/L Arterial Blood Oxyhemoglobin 87.9 L 94.0-98.0 % Arterial Blood Carboxyhemoglobin 5.5 H 0.5-1.5 % Arterial Blood Methemoglobin 0.5 0.0-1.5 % Arterial Blood Deoxyhemoglobin 6.1 H 0.0-5.0 % Clay Test Yes Blood Gas Total Hemoglobin 14.40 12.0-16.0 g/dL Blood Gas Liter Flow 3.00 Blood Gas Modality Nasal cannula Blood Gas Spontaneous Rate 18 FiO2 % 32.0 Specimen Drawn By Giselle barrios Blood Gas Critical Value Read Back Yes Blood Gas Notified Whom dayanara Martin Blood Gas Notified Time [id number] Blood Gas Notified By L carter rt Current Medications Medications (Trade) Dose Ordered Sig/Elaine Route Start Time Stop Time Status Last Admin Albuterol (Ventolin Medneb) 5 mg ONCE ONCE NEB 08/09/25 21:00 08/09/25 21:01 DC 08/09/25 21:31 Ipratropium [place] (Atrovent Medneb) 0.5 mg ONCE ONCE NEB 08/09/25 21:00 08/09/25 21:01 DC 08/09/25 21:31 X-Ray, Labs, Meds, VS Comment 55-year-old female presented to the department for the 2nd time for shortness of breath and active COPD actually the patient is still smokes Pulse ox on arrival 55 point % patient has a green productive cough This morning patient had workup EKG shows normal sinus rhythm at 89 with a right axis deviation chest x-ray done this morning source COPD without pneumonia ABG is is done is shows pH 7.31 be CO2 of 72.6 PO2 74.8 HC03 35.9 Magnesium pending Urine pending Patient will be admitted for further care Time of 1ST Reevaluation: 21:15 Reevaluation 1ST: Unchanged Time of 2ND Reevaluation: 21:47 Reevaluation 2ND: Improved Patient Education/Counseling: Diagnosis, Treatment, Prognosis Family Education/Counseling: Diagnosis, Treatment, Prognosis, No Family Present SEPSIS Sepsis Screen Date sepsis recognized/suspect: Aug 09, 2025 Time Sepsis recognized/suspect: 2020 Recent Procedure: No On Antibiotic Therapy: No Respiratory Rate >20: Yes Heart Rate >90: No Temp<36 C (96.8 F) or >38.3 C: No SBP <90 or MAP <65 mmHG: No New Acute Mental Status Change: No Is the patient on CPAP, BIPAP,: No Physician Orders Electrocardigram (08/09/25 20:10) Abg W/ Co-Ox (08/09/25 20:47) Magnesium (08/09/25 20:47) Heplock Iv (08/09/25 20:47) Relay Repairer (08/09/25 20:47) Blood Pressure (08/09/25 20:47) Oxygen (08/09/25 20:47) Pulse Oximetry (08/09/25 20:47) Sodium Chloride 0.9% (08/09/25 21:00) Urinalysis (08/09/25 20:47) Troponin-I Hs (08/09/25 20:47) Azithromycin 500mg/250ml (Zithromax 500m (08/09/25 21:00) Vital Signs Date Time Temp Pulse Resp B/P (MAP) Pulse Ox O2 Delivery O2 Flow Rate FiO2 08/09/25 21:38 14 98 Nasal Cannula* 3 32 08/09/25 21:02 89 08/09/25 20:23 100 Nasal Cannula* 4 36 08/09/25 20:18 97.8 92 30 108/66 100 97.8 08/09/25 20:15 89 Medications Medications Dose Ordered Sig/Elaine Route Start Time Stop Time Status Last Admin Dose Admin Albuterol 5 mg ONCE ONCE NEB 08/09/25 21:00 08/09/25 21:01 DC 08/09/25 21:31 Ipratropium [place] 0.5 mg ONCE ONCE NEB 08/09/25 21:00 08/09/25 21:01 DC 08/09/25 21:31 Departure 1 Departure Time of Disposition: 21:48 Impression: Primary Impression: COPD with acute exacerbation Additional Impressions: [place] of back Chronic back pain Qualified Codes: M54.50 - Low back pain, unspecified; G89.29 - Other chronic pain Arterial blood gas abnormality Schizophrenic disorder Bipolar disorder Qualified Codes: F31.32 - Bipolar disorder, current episode depressed, moderate Disposition: 09 ADMITTED INPATIENT Admit to: [facility] Condition: Serious Critical Care Note Critical Care Time?: No Stability Stability form required: Yes Heart Score Heart Score: Heart Score Response (Comments) Value History N/A 0 EKG Normal 0 Age 45-64 1 Risk Factors 1 or 2 risk factors 1 Troponin N/A 0 Total 2 I personally scribed for BRNENAN SHAHID MD ([email or web address]) on 08/09/25 at 20:49. Electronically submitted by Carl Rosales ([email or web address]). BRENNAN SHAHID MD Aug 09, 2025 20:49
[2025-08-09] MEDS ORDERED: SODIUM CHLORIDE 0.9% 1,000 ML IV ONE (21:00)
[2025-08-09] MEDS: IPRATROPIUM BROM 0.5 MG/2.5ML INH SOL NEB ONE (21:31)
[2025-08-09] MEDS: ALBUTEROL SULF 2.5 MG/0.5ML(0.5%) NEB SOLN NEB ONE (21:31)
[2025-08-09 21:34] LABS: Base Excess 6.9 mmol/L (-2.0-3.0)
--- NOTE | 2025-08-09 23:09 | DVHHP2 ---
History of Present Illness HPI Pt reports to the ER for the c/c of SOB. Pt was in the ER/seen by at 1500 for same complaint here is the HPI from earlier "55 y/o F, with PMHx of schizophrenia, asthma, and COPD presents to the ED for CC of shortness of breath. Patient states, she has been experiencing shortness of breath sudden onset, today (08/08/25). Patient reports, to have had a persistent cough for xmonths. Patient denies fever, chills, palpitations, shortness of breath, dizziness, or headache. No other symptoms or modifying factors are present at this time." Home Meds Active Scripts Gabapentin (Once-Daily) (Gabapentin) 300 Mg Tab, 300 MG PO Q6HP PRN, #60 TAB Prov:MANDY OJEDA MD 08/15/25 Ondansetron Odt 4MG Tab (ZOFRAN PO) 4 Mg Tb, 4 MG PO Q6HP PRN, #30 TAB ODT TAB-DISSOLVE IN MOUTH, THEN SWALLOW Prov:MANDY OJEDA MD 08/15/25 Azithromycin (Azithromycin) 500 Mg Tab, 1 TAB PO DAILY for 3 Days, #3 TAB Prov:MANDY OJEDA MD 08/14/25 Prednisone (Prednisone) 20 Mg Tab, 20 MG PO BID for 5 Days, #10 TAB Prov:MANDY OJEDA MD 08/14/25 Albuterol Sulfate (Albuterol Sulfate Hfa) 108 Mcg/Act Aer, 108 MCG IN Q6HP PRN, #1 AER Prov:MANDY OJEDA MD 08/14/25 Prednisone (Prednisone) 20 Mg Tab, 20 MG PO BID for 5 Days, #10 TAB Prov:MANDY OJEDA MD 08/12/25 Azithromycin (Azithromycin) 500 Mg Tab, 1 TAB PO DAILY for 3 Days, #3 TAB Prov:MANDY OJEDA MD 08/12/25 Albuterol Sulfate (Albuterol Sulfate Hfa) 108 Mcg/Act Aer, 108 MCG IN Q6HP PRN, #1 AER 3 Refills Prov:MANDY OJEDA MD 08/12/25 Acetaminophen (Acetaminophen) 500 Mg Tab, 500 MG PO Q4HPRN, #30 TAB 0 Refills Prov:KENTON PARTIDA 08/12/25 Sulfamethoxazole W/Trimethopri (Bactrim Ds Tablet) 1 Tab Tb, 1 TAB PO BID for 7 Days, #14 TAB 0 Refills Prov:HELGAKENTON 08/12/25 Benzonatate (Benzonatate) 100 Mg Cap, 1 CAP PO TID for 30 Days, #30 CAP Prov:ADAM SU DO 08/10/25 Quetiapine Fumerate (QUETIAPINE FUMARATE) 100 Mg Tab, 100 MG PO BID for 30 Days, #60 TAB 5 Refills Prov:ADAM SU 08/10/25 Ipratropium-Albuterol (COMBIVENT RESPIMAT) Respimat Aer, 1 PUFF IN Q4HP PRN, #1 AER Prov:KEYUR BEAVER MD 08/08/25 Prednisone (Prednisone) 20 Mg Tab, 20 MG PO DAILY for 5 Days, #5 MG Prov:KEYUR BEAVER MD 08/08/25 Albuterol Sulfate (Ventolin) 2 Mg/5 Ml Sr, 5 ML PO TID PRN for 30 Days, #150 ML 3 Refills Prov:ADAM SU 07/21/25 Loperamide Hcl (Imodium) 2 Mg Cp, 2 MG PO Q6HPRN PRN for 30 Days, #10 CAP Prov:JOYA PLATT NP 06/22/25 Divalproex Sodium (Divalproex Sodium) 500 Mg Tab, 500 MG PO BID for 30 Days, #60 MG Prov:JOYA PLATT NP 05/19/25 Haloperidol (Haldol) 5 Mg Tb, 3 MG PO BID for 30 Days, #60 MG Prov:JOYA PLATT NP 05/19/25 Benztropine Mesylate (Benztropine Mesylate) 1 Mg Tab, 1 MG PO BID for 30 Days, #60 MG Prov:JOYA PLATT NP 05/19/25 Trazodone Hcl (Trazodone Hcl) 50 Mg Tab, 75 MG PO HS for 30 Days, #45 MG Prov:JOYA PLATT NP 05/19/25 Reported Medications Haloperidol (Haldol) 5 Mg Tb, 5 MG PO BID, MG 07/19/25 Ondansetron Odt 4MG Tab (ZOFRAN PO) 4 Mg Tb, 4 MG PO, TAB ODT TAB-DISSOLVE IN MOUTH, THEN SWALLOW 07/16/25 Naproxen (NAPROSYN TABLET) 500 Mg Tb, 1 TAB PO BID, #60 TAB 1 Refill 07/16/25 Acetaminophen (Tylenol Extra Strength) 500 Mg Tab, 500 MG PO, TAB 07/16/25 Fluticasone-Salmeterol (Advair Diskus 250/50) 1 Puff Ih, 1 PUFF INH BID, #3 INHALER 3 Refills 07/16/25 Dextromethorphan-Guaifenesin (Tussin Dm Cough & Chest C 20-200 mg/20Ml) 1 Liq Liq, 1 LIQ PO, LIQ 07/16/25 Quetiapine Fumerate (Seroquel) 50 Mg Tab, 1 TAB PO QPM, #30 TAB 2 Refills 07/16/25 Pantoprazole Sodium (PANTOPRAZOLE SODIUM) 40 Mg Inj, 40 MG PO DAILY, INJ 07/16/25 Past Medical History Patient Family History: Anxiety disorder FH: COPD (chronic obstructive pulmonary disease) FH: schizophrenia H&P Exam Vital Signs Vital Signs Date Time Temp Pulse Resp B/P (MAP) Pulse Ox O2 Delivery O2 Flow Rate FiO2 08/09/25 21:38 14 98 Nasal Cannula* 3 32 08/09/25 21:02 89 08/09/25 20:18 97.8 108/66 97.8 SEPSIS Sepsis Screen Date sepsis recognized/suspect: Aug 09, 2025 Time Sepsis recognized/suspect: 2020 Recent Procedure: No On Antibiotic Therapy: No Respiratory Rate >20: Yes Heart Rate >90: No Temp<36 C (96.8 F) or >38.3 C: No SBP <90 or MAP <65 mmHG: No New Acute Mental Status Change: No Is the patient on CPAP, BIPAP,: No Physician Orders Electrocardigram (08/09/25 20:10) Abg W/ Co-Ox (08/09/25 20:47) Heplock Iv (08/09/25 20:47) Financial Analyst (08/09/25 20:47) Blood Pressure (08/09/25 20:47) Oxygen (08/09/25 20:47) Pulse Oximetry (08/09/25 20:47) Sodium Chloride 0.9% (08/09/25 21:00) Urinalysis (08/09/25 20:47) Admit (08/09/25 23:05) Code Status (08/09/25 23:05) Hydrocodone-Acet 5/325mg Tab ([place] /32 (08/09/25 23:15) Ondansetron Hcl (Zofran) (08/09/25 23:15) Docusate Sodium Capsule (Colace Capsule) (08/09/25 23:15) Enoxaparin Sodium (Lovenox) (08/10/25 10:00) Complete Blood Count (08/10/25 04:00) Comprehensive Metabolic Panel (08/10/25 04:00) Condition: Serious (08/09/25 23:05) Acetaminophen Tablet (Tylenol Tablet) (08/09/25 23:15) Morphine Sulfate Injection (08/09/25 23:15) Nitroglycerin Sublingual (Ntrostat Subli (08/09/25 23:15) Morphine Sulfate Injection (08/09/25 23:15) Stat Ekg For Chest Pain (08/09/25 23:05) Notify Md Of Changes From Base (08/09/25 23:05) Table Cut Off Saw Operator For 24 Hours (08/09/25 23:05) Emergency Dysrhythmia Protocol (08/09/25 23:05) Rhythm Strips Once Every Shift (08/09/25 23:05) Oxygen By Nasal Cannula (08/09/25 23:05) Vital Signs Date Time Temp Pulse Resp B/P (MAP) Pulse Ox O2 Delivery O2 Flow Rate FiO2 08/09/25 21:38 14 98 Nasal Cannula* 3 32 08/09/25 21:02 89 08/09/25 20:23 100 Nasal Cannula* 4 36 08/09/25 20:18 97.8 92 30 108/66 100 97.8 08/09/25 20:15 89 Medications Medications Dose Ordered Sig/Elaine Route Start Time Stop Time Status Last Admin Dose Admin Albuterol 5 mg ONCE ONCE NEB 08/09/25 21:00 08/09/25 21:01 DC 08/09/25 21:31 5 MG Ipratropium [place] 0.5 mg ONCE ONCE NEB 08/09/25 21:00 08/09/25 21:01 DC 08/09/25 21:31 0.5 MG Labs/Xrays Labs Test 08/09/25 21:40 08/09/25 21:25 Range/Units Magnesium Level 2.0 1.6-2.6 mg/dL Troponin I High Sensitivity < 3 L </=34 ng/L Blood Gas Specimen Type Arterial Blood Gas Sample Site Left radial Blood Gas Patient Temperature 37.0 Arterial Blood Date Drawn [id number] Arterial Blood pH 7.312 L 7.350-7.450 Arterial Blood Partial Pressure CO2 72.6 *H 32.0-45.0 mmHg Arterial Blood Partial Pressure O2 74.2 L 83.0-108.0 mmHg Arterial Blood HCO3 35.9 H 21.0-28.0 mmol/L Arterial Blood Oxygen Saturation 93.5 L 94.0-98.0 % Arterial Blood Base Excess 6.9 H -2.0-3.0 mmol/L Arterial Blood Oxyhemoglobin 87.9 L 94.0-98.0 % Arterial Blood Carboxyhemoglobin 5.5 H 0.5-1.5 % Arterial Blood Methemoglobin 0.5 0.0-1.5 % Arterial Blood Deoxyhemoglobin 6.1 H 0.0-5.0 % Clay Test Yes Blood Gas Total Hemoglobin 14.40 12.0-16.0 g/dL Blood Gas Liter Flow 3.00 Blood Gas Modality Nasal cannula Blood Gas Spontaneous Rate 18 FiO2 % 32.0 Specimen Drawn By Giselle barrios Blood Gas Critical Value Read Back Yes Blood Gas Notified Whom dayanara Martin Blood Gas Notified Time [id number] Blood Gas Notified By Giselle carter rt Assessment/Plan Primary Diagnosis Pt reports to the ER for the c/c of SOB. Pt was in the ER/seen by at 1500 for same complaint here is the HPI from earlier "55 y/o F, with PMHx of schizophrenia, asthma, and COPD presents to the ED for CC of shortness of breath. Patient states, she has been experiencing shortness of breath sudden onset, today (08/08/25). Patient reports, to have had a persistent cough for xmonths. Patient denies fever, chills, palpitations, shortness of breath, dizziness, or headache. No other symptoms or modifying factors are present at this time." copd exacerbation acute hypoxic resp failure admitted to med/surg copd management Plan discussed with: Patient ADAM SU DO Aug 09, 2025 23:09
--- NOTE | 2025-08-09 23:09 | ECG ---
[facility] Test Date: 2025-08-09 Test Time: 20:15:33 Pat Name: NATIVIDAD URBAN Department: ED Room: 0233T Gender: F [place] Stitcher: YANET : 1970 Requested By: EMERGENCY EMERGENCY Order Number: [id number] Reading MD: Guanaco Camacho Measurements Intervals [place] Rate: 89 P: 85 GA: 135 QRS: 92 QRSD: 83 T: 69 QT: 354 QTc: 431 Interpretive Statements Sinus rhythm Borderline right axis deviation Minimal ST elevation, anterior leads Electronically Signed On 08-11-2025 17:46:34 PST by Guanaco Camacho Please click the below link to view image of tracing.
[2025-08-09] MEDS ORDERED: DOCUSATE SOD 100 MG CAP PO PRN (23:15)
[2025-08-09] MEDS ORDERED: ONDANSETRON HCL 4 MG/2 ML VIAL IV PRN (23:15)
[2025-08-09] MEDS ORDERED: HYDROcodone-ACET 5/325MG TAB PO PRN (23:15)
[2025-08-09] MEDS ORDERED: MORPHINE SULFATE INJ 2 MG/ml SYRG IV PRN ×2 (23:15)
[2025-08-09] MEDS ORDERED: NITROGLYCERIN 0.4 MG SL TAB SL PRN (23:15)
[2025-08-10] VITALS (16 sets, daily range): BP systolic 99–121; BP diastolic 58–64; PULSE 7–113; RESP 16–23; TEMP 97.5–98.6; O2SAT 90–100
[2025-08-10] MEDS: AZITHROMYCIN 500MG/250ML 250 ML IV ONE (00:51)
[2025-08-10] MEDS: ALBUTEROL SULF 2.5 MG/0.5ML(0.5%) NEB SOLN NEB PRN (01:58)
[2025-08-10] MEDS: ACETAMINOPHEN 325 MG TAB PO PRN (06:29)
[2025-08-10] MEDS: ENOXAPARIN SOD 40 MG/0.4 ML SYRINGE SC SCH (10:00)
[2025-08-10 11:08] LABS: Hematocrit 39.4 % (36.0-46.0); Hemoglobin 12.9 g/dL (12.2-16.2); Mean Corpuscular Hemoglobin 32.1 pg (28.0-32.0); Mean Corpuscular Volume 98.1 fL (80.0-100.0); Nucleated Red Blood Cells % 0.1 %
[2025-08-10 11:21] LABS: Alanine Aminotransferase 10 U/L (7-40); Albumin 3.5 g/dL (3.2-4.8); Alkaline Phosphatase 67 U/L (46-116); Anion Gap 3 (5-15); BUN/Creatinine Ratio 17.0 (10.0-20.0); Bilirubin, Total 0.3 mg/dL (0.2-1.0); Blood Urea Nitrogen 9 mg/dL (9-23); Calcium 8.9 mg/dL (8.7-10.4); Chloride 104 mmol/L (98-107); Potassium 4.2 mmol/L (3.5-5.1)
[2025-08-10 11:25] LABS: Carbon Dioxide 39 mmol/L (20-31); Glucose 115 mg/dL (74-106); Sodium 146 mmol/L (136-145); Total Protein 5.1 g/dL (5.7-8.2)
[2025-08-10] MEDS ORDERED: QUET100T47 PO (15:50)
[2025-08-10] MEDS ORDERED: BENZ100C97 PO (15:50)
--- NOTE | 2025-08-17 23:48 | DVHDS2 ---
Discharge Summary Date of Admission Aug 09, 2025 at 23:05 Date of Discharge: Aug 10, 2025 Labs/Diagnostic Data: Laboratory Results Test 08/10/25 09:30 08/09/25 21:40 08/09/25 21:25 White Blood Count 4.5 10^3/uL (4.4-10.8) Red Blood Count 4.02 10^6/uL (4.0-5.20) Hemoglobin 12.9 g/dL (12.2-16.2) Hematocrit 39.4 % (36.0-46.0) Mean Corpuscular Volume 98.1 fL (80.0-100.0) Mean Corpuscular Hemoglobin 32.1 pg (28.0-32.0) Mean Corpuscular Hemoglobin Concent 32.7 g/dL (32.0-36.0) Red Cell Distribution Width 16.7 % (11.8-14.3) Platelet Count 175 10^3/uL (140-450) Mean Platelet Volume 8.9 fL (6.9-10.8) Neutrophils (%) (Auto) 65.7 % (37.0-80.0) Lymphocytes (%) (Auto) 25.8 % (10.0-50.0) Monocytes (%) (Auto) 7.6 % (0.0-12.0) Eosinophils (%) (Auto) 0.6 % (0.0-7.0) Basophils (%) (Auto) 0.3 % (0.0-2.0) Neutrophils # (Auto) 2.9 10 ^3/uL (1.6-8.6) Lymphocytes # (Auto) 1.2 10 ^3/uL (0.4-5.4) Monocytes # (Auto) 0.3 10 ^3/uL (0-1.3) Eosinophils # (Auto) 0 10 ^3/uL (0-0.8) Basophils # (Auto) 0 10 ^3/uL (0-0.2) Nucleated Red Blood Cells 0.1 % Sodium Level 146 mmol/L (136-145) Potassium Level 4.2 mmol/L (3.5-5.1) Chloride Level 104 mmol/L (98-107) Carbon Dioxide Level 39 mmol/L (20-31) Anion Gap 3 (5-15) Blood Urea Nitrogen 9 mg/dL (9-23) Creatinine 0.53 mg/dL (0.550-1.02) Glomerular Filtration Rate Calc 108 mL/min (>90) BUN/Creatinine Ratio 17.0 (10.0-20.0) Serum Glucose 115 mg/dL (74-106) Calcium Level 8.9 mg/dL (8.7-10.4) Total Bilirubin 0.3 mg/dL (0.2-1.0) Aspartate Amino Transferase (AST) 11 U/L (13-40) Alanine Aminotransferase (ALT) 10 U/L (7-40) Alkaline Phosphatase 67 U/L (46-116) Total Protein 5.1 g/dL (5.7-8.2) Albumin 3.5 g/dL (3.2-4.8) Magnesium Level 2.0 mg/dL (1.6-2.6) Troponin I High Sensitivity < 3 ng/L (</=34) Blood Gas Specimen Type Arterial Blood Gas Sample Site Left radial Blood Gas Patient Temperature 37.0 Arterial Blood Date Drawn [id number] Arterial Blood pH 7.312 (7.350-7.450) Arterial Blood Partial Pressure CO2 72.6 mmHg (32.0-45.0) Arterial Blood Partial Pressure O2 74.2 mmHg (83.0-108.0) Arterial Blood HCO3 35.9 mmol/L (21.0-28.0) Arterial Blood Oxygen Saturation 93.5 % (94.0-98.0) Arterial Blood Base Excess 6.9 mmol/L (-2.0-3.0) Arterial Blood Oxyhemoglobin 87.9 % (94.0-98.0) Arterial Blood Carboxyhemoglobin 5.5 % (0.5-1.5) Arterial Blood Methemoglobin 0.5 % (0.0-1.5) Arterial Blood Deoxyhemoglobin 6.1 % (0.0-5.0) Clay Test Yes Blood Gas Total Hemoglobin 14.40 g/dL (12.0-16.0) Blood Gas Liter Flow 3.00 Blood Gas Modality Nasal cannula Blood Gas Spontaneous Rate 18 FiO2 % 32.0 Specimen Drawn By Giselle barrios Blood Gas Critical Value Read Back Yes Blood Gas Notified Whom dayanara Martin Blood Gas Notified Time [id number] Blood Gas Notified By Giselle barrios Other Laboratory Tests 08/10/25 09:30 Brief Hx & Hospital Course: Pt reports to the ER for the c/c of SOB. Pt was in the ER/seen by at 1500 for same complaint here is the HPI from earlier "55 y/o F, with PMHx of schizophrenia, asthma, and COPD presents to the ED for CC of shortness of breath. Patient states, she has been experiencing shortness of breath sudden onset, today (08/08/25). Patient reports, to have had a persistent cough for xmonths. Patient denies fever, chills, palpitations, shortness of breath, dizziness, or headache. No other symptoms or modifying factors are present at this time." copd exacerbation acute hypoxic resp failure admitted to med/surg copd management improved significantly and discharged back to [facility] Condition at Discharge: Fair Final Diagnosis/Problems List See discharge note. Discharge Disposition: Assisted Living Facility Discharge Instruct/Medications Diet: Cardiac 2g Na,low cholest Activity: No Restrictions, As Tolerated Scheduled Acetaminophen (Acetaminophen), 500 MG PO Q4HPRN Azithromycin (Azithromycin), 1 TAB PO DAILY Azithromycin (Azithromycin), 1 TAB PO DAILY Benzonatate (Benzonatate), 1 CAP PO TID Benztropine Mesylate (Benztropine Mesylate), 1 MG PO BID Divalproex Sodium (Divalproex Sodium), 500 MG PO BID Fluticasone-Salmeterol (Advair Diskus 250/50), 1 PUFF INH BID, (Reported) Haloperidol (Haldol), 3 MG PO BID Haloperidol (Haldol), 5 MG PO BID, (Reported) Naproxen (Naprosyn Tablet), 1 TAB PO BID, (Reported) Pantoprazole Sodium (Pantoprazole Sodium), 40 MG PO DAILY, (Reported) Prednisone (Prednisone), 20 MG PO DAILY Prednisone (Prednisone), 20 MG PO BID Prednisone (Prednisone), 20 MG PO BID Quetiapine Fumerate (Seroquel), 1 TAB PO QPM, (Reported) Quetiapine Fumerate (Quetiapine Fumarate), 100 MG PO BID Sulfamethoxazole W/Trimethopri (Bactrim Ds Tablet), 1 TAB PO BID Trazodone Hcl (Trazodone Hcl), 75 MG PO HS Scheduled PRN Albuterol Sulfate (Ventolin), 5 ML PO TID PRN Albuterol Sulfate (Albuterol Sulfate Hfa), 108 MCG IN Q6HP PRN Albuterol Sulfate (Albuterol Sulfate Hfa), 108 MCG IN Q6HP PRN Gabapentin (Once-Daily) (Gabapentin), 300 MG PO Q6HP PRN Ipratropium-Albuterol (Combivent Respimat), 1 PUFF IN Q4HP PRN Loperamide Hcl (Imodium), 2 MG PO Q6HPRN PRN Ondansetron Odt 4MG Tab (Zofran Po), 4 MG PO Q6HP PRN Miscellaneous Medications Acetaminophen (Tylenol Extra Strength), 500 MG PO, (Reported) Dextromethorphan-Guaifenesin (Tussin Dm Cough & Chest C 20-200 mg/20Ml), 1 LIQ PO, (Reported) Ondansetron Odt 4MG Tab (Zofran Po), 4 MG PO, (Reported) Discharge Statement: "Patient was advised to return to the ER or call 911 if any headaches, dizziness, shortness of breath, chest pain, abdominal pain, bleeding, fevers, or worsening of medical condition. Patient was counseled about treatment plan, medications, possible side effects, patientverbalized understanding. All questions were answered to the best of my ability. This discharge took greater then 30 minutes in planning, reviewing documentation, counseling the patient, and discussing with other team members." ASSESSMENT ASSESSMENT Assessment See discharge note. ADAM SU DO Aug 17, 2025 23:48
== END 2025-08-10 17:10 | disposition home or self-care (01) | DRG 140 ==
LOC: EDBD 20:11 → ER 20:11 → OVERFLOW 23:05 → TELE-EAST 23:07
PROVIDERS: ADMIT Internal Medicine; ATTEND Internal Medicine
DX: J44.1 Chronic obstructive pulmonary disease with (acute) exacerbation (principal); J96.01 Acute respiratory failure with hypoxia; I10 Essential (primary) hypertension; F20.9 Schizophrenia, unspecified; F17.210 Nicotine dependence, cigarettes, uncomplicated; G89.29 Other chronic pain; Z82.5 Family history of asthma and other chronic lower respiratory diseases; Z81.8 Family history of other mental and behavioral disorders; F31.9 Bipolar disorder, unspecified
CPT/HCPCS: 36415; 36600; 80053; 82805; 83735; 84484; 85025; 93005; 94640; G0378

== ENCOUNTER 2025-08-11 23:39 | Emergency (ER) | payer OTHER ==
[~2025-08-11] VITALS: Ht 167.6 cm; Wt 50.0 kg
[~2025-08-11 23:39] MED LIST changes: +BENZ100C97 PO; +QUET100T47 PO
[2025-08-12] MEDS ORDERED: ACET500T58 PO (01:16)
[2025-08-12] MEDS ORDERED: BACDST PO (01:16)
--- NOTE | 2025-08-12 01:23 | ED.PDOC ---
General HPI Comments 55 year old female presents to ER with urinary complaint x 1 day. Patient presents via EMS, from [facility] care facility reporting that she has been experiencing foul smelling urine with associated lower back pain x 1 day after not having her incontinent brief changed in 2 days. Patient is well known to checking into this ER, presents in no distress and refused to have her incontinent brief changed. Denies fever, body aches, chills, night sweats, abdom inal/pelvic pain, flank pain, dysuria or any further symptoms/complaints Chief Complaint: Back Pain Time Seen by MD: 23:49 Primary Care Provider: UNKNOWN Reviewed notes: Nurses Notes, Medications, Allergies Allergies: Coded Allergies: Azithromycin (Verified Allergy, Severe, 08/02/25) Lactose (Verified Allergy, Severe, 11/15/24) Erythromycin (Verified Allergy, Intermediate, 07/19/25) Home Meds Active Scripts Acetaminophen (Acetaminophen) 500 Mg Tab, 500 MG PO Q4HPRN, #30 TAB 0 Refills Prov:KENTON PARTIDA 08/12/25 Sulfamethoxazole W/Trimethopri (Bactrim Ds Tablet) 1 Tab Tb, 1 TAB PO BID for 7 Days, #14 TAB 0 Refills Prov:KENTON PARTIDA 08/12/25 Benzonatate (Benzonatate) 100 Mg Cap, 1 CAP PO TID for 30 Days, #30 CAP Prov:ADAM SU DO 08/10/25 Quetiapine Fumerate (QUETIAPINE FUMARATE) 100 Mg Tab, 100 MG PO BID for 30 Days, #60 TAB 5 Refills Prov:ADAM SU DO 08/10/25 Ipratropium-Albuterol (COMBIVENT RESPIMAT) Respimat Aer, 1 PUFF IN Q4HP PRN, #1 AER Prov:KEYUR BAEVER MD 08/08/25 Prednisone (Prednisone) 20 Mg Tab, 20 MG PO DAILY for 5 Days, #5 MG Prov:KEYUR BEAVER MD 08/08/25 Albuterol Sulfate (Ventolin) 2 Mg/5 Ml Sr, 5 ML PO TID PRN for 30 Days, #150 ML 3 Refills Prov:ADAM SU DO 07/21/25 Loperamide Hcl (Imodium) 2 Mg Cp, 2 MG PO Q6HPRN PRN for 30 Days, #10 CAP Prov:JOYA PLATT [employer] 06/22/25 Divalproex Sodium (Divalproex Sodium) 500 Mg Tab, 500 MG PO BID for 30 Days, #60 MG Prov:JOYA PLATT [employer] 05/19/25 Haloperidol (Haldol) 5 Mg Tb, 3 MG PO BID for 30 Days, #60 MG Prov:JOYA PLATT [employer] 05/19/25 Benztropine Mesylate (Benztropine Mesylate) 1 Mg Tab, 1 MG PO BID for 30 Days, #60 MG Prov:JOYA PLATT [employer] 05/19/25 Trazodone Hcl (Trazodone Hcl) 50 Mg Tab, 75 MG PO HS for 30 Days, #45 MG Prov:JOYA PLATT [employer] 05/19/25 Reported Medications Haloperidol (Haldol) 5 Mg Tb, 5 MG PO BID, MG 07/19/25 Ondansetron Odt 4MG Tab (ZOFRAN PO) 4 Mg Tb, 4 MG PO, TAB ODT TAB-DISSOLVE IN MOUTH, THEN SWALLOW 07/16/25 Naproxen (NAPROSYN TABLET) 500 Mg Tb, 1 TAB PO BID, #60 TAB 1 Refill 07/16/25 Acetaminophen (Tylenol Extra Strength) 500 Mg Tab, 500 MG PO, TAB 07/16/25 Fluticasone-Salmeterol (Advair Diskus 250/50) 1 Puff Ih, 1 PUFF INH BID, #3 INH ALER 3 Refills 07/16/25 Dextromethorphan-Guaifenesin (Tussin Dm Cough & Chest C 20-200 mg/20Ml) 1 Liq Liq, 1 LIQ PO, LIQ 07/16/25 Quetiapine Fumerate (Seroquel) 50 Mg Tab, 1 TAB PO QPM, #30 TAB 2 Refills 07/16/25 Pantoprazole Sodium (PANTOPRAZOLE SODIUM) 40 Mg Inj, 40 MG PO DAILY, INJ 07/16/25 Information Source: Patient Mode of Arrival: EMS Past Medical History PAST MEDICAL HISTORY: Asthma, COPD (on baseline 3 L NC), HTN, Schizophrenia, UTI'S Surgical History: Denies all surgeries PROCESSING ASSOCIATE History: Denies all PROCESSING ASSOCIATE Hx Family History Family History: Reviewed,noncontributory to illness, Unknown Social History Smoker: Cigarettes, Less Than 1 Pack/Day Alcohol: Denies ETOH Use Drugs: Methamphetamine Lives In: Assisted Care Constitutional: denies: chills, diaphoresis, fatigue, fever, malaise, sweats, weakness, others EENTM: denies: blurred vision, double vision, ear bleeding, ear discharge, ear drainage, ear pain, ear ringing, eye pain, eye redness, hearing loss, mouth pain, mouth swelling, nasal discharge, nose bleeding, nose congestion, nose pain, photophobia, tearing, throat pain, throat swelling, voice changes, others Respiratory: denies: cough, hemoptysis, orthopnea, SOB at rest, shortness of breath, SOB with excertion, stridor, wheezing, others Cardiovascular: denies: chest pain, dizzy spells, diaphoresis, Dyspnea on exertion, edema, irregular heart beat, left arm pain, lightheadedness, palpitations, PND, syncope, others Gastrointestinal: denies: abdomen distended, abdominal pain, blood streaked bowels, constipated, diarrhea, dysphagia, difficulty swallowing, hematemesis, melena, nausea, poor appetite, poor fluid intake, rectal bleeding, rectal pain, vomiting, others Genitourinary: reports: others (As stated in HPI) Neurological: denies: dizziness, fainting, headache, left sided numbness, left sided weakness, numbness, paresthesia, pre-existing deficit, right sided numbness, right sided weakness, seizure, speech problems, tingling, tremors, weakness, others Musculoskeletal: denies: back pain, gout, joint pain, joint swelling, muscle pain, muscle stiffness, neck pain, others Integumetry: denies: bruises, change in color, change in hair/nails, dryness, laceration, lesions, lumps, rash, wounds, others Allergic/Immunocompromised: denies: Difficulty Healing, Frequent Infections, Hives, Itching, others Hematologic/Lymphatic: denies: anemia, blood clots, easy bleeding, easy bruising, swollen glands, others Endocrine: denies: excessive hunger, excessive sweating, excessive thirst, excessive urination, flushing, intolerance to cold, intolerance to heat, unexpl ained weight gain, unexplained weight loss, others Psychiatric: denies: anxiety, bipolar disorder, depression, hopeless, panic disorder, schizophrenia, sleepless, suicidal, others Physical Exam General Appearance: No Apparent Distress HEENT: PERRL/EOMI Neck: Full Range of Motion, Non-Tender, Normal Respiratory: Chest Non-Tender, Lungs Clear, No Accessory Muscle Use, No Respiratory Distress, Normal Breath Sounds, Other (on 3L NC) Cardiovascular: No Murmur, No Gallop, Regular Rate/Rhythm Breast Exam: Deferred Gastrointestinal: No Organomegaly, Non Tender, No Pulsatile Mass, Normal Bowel Sounds, Soft Genitalia: Deferred Pelvic: Deferred Rectal: Deferred Extremities: Normal capillary refill, Normal range of motion Musculoskeletal : Extremity Location: Back (No TTP to bilateral flanks or CVA tenderness noted bilaterally. No bony tenderness to lumbar/ thoracic thoracic spine noted) Neurologic: Alert, No Motor Deficits, Normal Affect, Normal Mood, No Sensory Deficits Cerebellar Function: Normal Reflexes: Normal Skin: Dry, Normal Color, Warm Peripheral Pulses: 2+ Radial (R), 2+ Radial (L), 2+ Brachial (R), 2+ Brachial (L) Lymphatic: No Adenopathy Was a procedure done? Was a procedure done?: No Sedation Sedation?: No Differential Diagnosis Kidney stone (Female): N/A Urinary Problem (Female): Pyelonephritis, Urinary retention, Urolithiasis X-Ray, Labs, Meds, VS Vital Signs Date Time Temp Pulse Resp B/P (MAP) Pulse Ox O2 Delivery O2 Flow Rate FiO2 08/11/25 23:50 97.7 93 18 124/74 93 97.7 Urinalysis ordered-patient refused to give sample Patient provided gown in ER but refused to have incontinent brief change Patient will be treated for suspected UTI and discharged back home to [facility] Rocephin 1 g IM ordered Toradol 60 mg IM ordered Advised to drink plenty of fluids Importance of proper hygiene discussed and advised Previous chart visits reviewed Advised to follow up with PCP in 1-2 days Patient verbalized understanding and agreeable with current plan of care Advised to return to ER immediately if symptoms worsen Time of 1ST Reevaluation: 01:02 Reevaluation 1ST: N/A Patient Education/Counseling: Diagnosis, Treatment, Prognosis, Need For Follow Up Family Education/Counseling: No Family Present SEPSIS Sepsis Screen Date sepsis recognized/suspect: Aug 11, 2025 Time Sepsis recognized/suspect: 2339 Recent Procedure: No On Antibiotic Therapy: No Respiratory Rate >20: No Heart Rate >90: No Temp<36 C (96.8 F) or >38.3 C: No SBP <90 or MAP <65 mmHG: No New Acute Mental Status Change: No Is the patient on CPAP, BIPAP,: No Physician Orders Urinalysis (08/11/25 23:49) Ceftriaxone Sodium (Rocephin) (08/12/25 01:30) Ketorolac Injection (Toradol Injection) (08/12/25 01:30) Vital Signs Date Time Temp Pulse Resp B/P (MAP) Pulse Ox O2 Delivery O2 Flow Rate FiO2 08/11/25 23:50 97.7 93 18 124/74 93 97.7 Departure 1 Departure Time of Disposition: 01:18 Impression: Primary Impression: Suspected urinary tract infection Additional Impression: History of COPD Disposition: 03 CARE HOME FACILITY ([facility]) Condition: Stable e-Prescriptions Acetaminophen (Acetaminophen) 500 Mg Tab 500 MG PO Q4HPRN, #30 TAB 0 Refills Prov: KENTON PARTIDA 08/12/25 Sulfamethoxazole W/Trimethopri (Bactrim Ds Tablet) 1 Tab Tb 1 TAB PO BID for 7 Days, #14 TAB 0 Refills Prov: KENTON PARTIDA 08/12/25 Discharged With: Friend Critical Care Note Critical Care Time?: No Stability Stability form required: No Heart Score Heart Score: Heart Score Response (Comments) Value History N/A 0 EKG N/A 0 Age N/A 0 Risk Factors N/A 0 Troponin N/A 0 Total 0 KENTON PARTIDA Aug 12, 2025 01:23
[2025-08-12 01:43] VITALS: BP 100/57; PULSE 100; RESP 18; TEMP 98; O2SAT 100
[2025-08-12] MEDS: KETOROLAC TROMETH 60MG/2ML VIAL IM ONE (02:02)
[2025-08-12] MEDS: cefTRIAXone SOD 1,000 MG VL IM ONE (02:04)
[2025-08-12] MEDS ORDERED: ALBU108A5 IN (21:22)
[2025-08-12] MEDS ORDERED: PRED20TA2 PO (21:22)
[2025-08-12] MEDS ORDERED: AZIT500T66 PO (21:22)
== END 2025-08-12 02:30 ==
LOC: ER 23:39 → EDBD 23:39 → ER 08-12 02:30
DX: J44.89 Other specified chronic obstructive pulmonary disease (principal); F20.9 Schizophrenia, unspecified; F17.210 Nicotine dependence, cigarettes, uncomplicated; F19.90 Other psychoactive substance use, unspecified, uncomplicated; I10 Essential (primary) hypertension; Z79.899 Other long term (current) drug therapy; Z88.1 Allergy status to other antibiotic agents; Z79.52 Long term (current) use of systemic steroids; Z79.51 Long term (current) use of inhaled steroids; Z87.440 Personal history of urinary (tract) infections
CPT/HCPCS: 96372; 99284; J0696; J1885

== ENCOUNTER 2025-08-12 18:57 | Emergency (ER) | payer OTHER ==
[~2025-08-12] VITALS: Ht 160 cm; Wt 45.4 kg
[~2025-08-12 18:57] MED LIST changes: +ACET500T58 PO; +BACDST PO
[2025-08-12] MEDS: predniSONE 20 MG TAB PO ONE (19:30)
[2025-08-12] MEDS: IPRATROPIUM BROM 0.5 MG/2.5ML INH SOL NEB ONE (19:30)
[2025-08-12] MEDS: ALBUTEROL SULF 2.5 MG/0.5ML(0.5%) NEB SOLN NEB ONE (19:30)
[2025-08-12 20:11] LABS: Hematocrit 41.5 % (36.0-46.0); Hemoglobin 13.4 g/dL (12.2-16.2); Mean Corpuscular Hemoglobin 31.8 pg (28.0-32.0); Mean Corpuscular Volume 98.5 fL (80.0-100.0); Nucleated Red Blood Cells % 0.1 %
--- NOTE | 2025-08-12 20:13 | ED.PDOC ---
SOB-HPI HPI Comments 55-year-old female who came to ER for shortness of breath. [email or web address], seen here multiple times for shortness of breath. Does have history of COPD and schizophrenia. Currently complaining of throat pain, chest discomfort and shortness of breath Chief Complaint: Shortness of Breath Time Seen by MD: 20:13 Primary Care Provider: UNKNOWN Reviewed notes: Nurses Notes Information Source: Patient Mode of Arrival: EMS Past Medical History PAST MEDICAL HISTORY: Asthma, COPD, HTN, Schizophrenia, UTI'S Surgical History: Denies all surgeries DIRECTOR OF PUPIL PERSONNEL PROGRAM History: Denies all DIRECTOR OF PUPIL PERSONNEL PROGRAM Hx Family History Family History: Reviewed,noncontributory to illness, Unknown Social History Smoker: Cigarettes, Less Than 1 Pack/Day Alcohol: Denies ETOH Use Drugs: Denies Drug Use Lives In: Assisted Care Constitutional: denies: chills, diaphoresis, fatigue, fever, malaise, sweats, weakness, others EENTM: reports: throat pain; denies: blurred vision, double vision, ear bleeding, ear discharge, ear drainage, ear pain, ear ringing, eye pain, eye redness, hearing loss, mouth pain, mouth swelling, nasal discharge, nose bleeding, nose congestion, nose pain, photophobia, tearing, throat swelling, voice changes, others Respiratory: reports: shortness of breath; denies: cough, hemoptysis, orthopnea, SOB at rest, SOB with excertion, stridor, wheezing, others Cardiovascular: reports: chest pain; denies: dizzy spells, diaphoresis, Dyspnea on exertion, edema, irregular heart beat, left arm pain, lightheadedness, palpitations, PND, syncope, others Gastrointestinal: denies: abdomen distended, abdominal pain, blood streaked bowels, constipated, diarrhea, dysphagia, difficulty swallowing, hematemesis, melena, nausea, poor appetite, poor fluid intake, rectal bleeding, rectal pain, vomiting, others Genitourinary: denies: abnormal vagina bleeding, burning, dyspareunia, dysuria, flank pain, frequency, hematuria, incontinence, pain, , vagina discharge, urgency, others Neurological: denies: dizziness, fainting, headache, left sided numbness, left sided weakness, numbness, paresthesia, pre-existing deficit, right sided numbness, right sided weakness, seizure, speech problems, tingling, tremors, weakness, others Musculoskeletal: denies: back pain, gout, joint pain, joint swelling, muscle pain, muscle stiffness, neck pain, others Integumetry: denies: bruises, change in color, change in hair/nails, dryness, laceration, lesions, lumps, rash, wounds, others Allergic/Immunocompromised: denies: Difficulty Healing, Frequent Infections, Hives, Itching, others Hematologic/Lymphatic: denies: anemia, blood clots, easy bleeding, easy bruising, swollen glands, others Endocrine: denies: excessive hunger, excessive sweating, excessive thirst, excessive urination, flushing, intolerance to cold, intolerance to heat, unexplained weight gain, unexplained weight loss, others Psychiatric: denies: anxiety, bipolar disorder, depression, hopeless, panic disorder, schizophrenia, sleepless, suicidal, others Physical Exam General Appearance: No Apparent Distress, Normal HEENT: Normal ENT Inspection, Pharynx Normal, TMs Normal Neck: Full Range of Motion, Non-Tender, Normal, Normal Inspection Respiratory: Chest Non-Tender, Lungs Clear, No Accessory Muscle Use, No Respiratory Distress, Normal Breath Sounds Cardiovascular: No Edema, No JVD, No Murmur, No Gallop, Normal Peripheral Pulses, Regular Rate/Rhythm Breast Exam: Deferred Gastrointestinal: No Organomegaly, Non Tender, No Pulsatile Mass, Normal Bowel Sounds, Soft Genitalia: Deferred Pelvic: Deferred Rectal: Deferred Extremities: No calf tenderness, Normal capillary refill, Normal inspection, Normal range of motion, Non-tender, No pedal edema Musculoskeletal : Apperance: Normal Neurologic: Alert, 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 Was a procedure done?: No Differential Dx Differential Diagnosis: Asthma, COPD, Respiratory Distress X-Ray, Labs, Meds, VS Vital Signs Date Time Temp Pulse Resp B/P (MAP) Pulse Ox O2 Delivery O2 Flow Rate FiO2 08/12/25 22:41 97.5 75 20 110/56 (74) 97 97.5 08/12/25 22:41 75 20 98 Room Air 08/12/25 22:17 97.6 77 19 112/48 (69) 95 97.6 08/12/25 19:47 93 08/12/25 19:30 24 96 Nasal Cannula* 4 36 08/12/25 19:15 98.2 95 24 131/76 100 98.2 Lab Test 08/12/25 20:51 08/12/25 19:40 08/12/25 19:31 Range/Units Troponin I High Sensitivity 5 6 </=34 ng/L White Blood Count 4.7 4.4-10.8 10^3/uL Red Blood Count 4.21 4.0-5.20 10^6/uL Hemoglobin 13.4 12.2-16.2 g/dL Hematocrit 41.5 36.0-46.0 % Mean Corpuscular Volume 98.5 80.0-100.0 fL Mean Corpuscular Hemoglobin 31.8 28.0-32.0 pg Mean Corpuscular Hemoglobin Concent 32.3 32.0-36.0 g/dL Red Cell Distribution Width 16.4 H 11.8-14.3 % Platelet Count 149 140-450 10^3/uL Mean Platelet Volume 9.1 6.9-10.8 fL Neutrophils (%) (Auto) 74.6 37.0-80.0 % Lymphocytes (%) (Auto) 18.5 10.0-50.0 % Monocytes (%) (Auto) 5.8 0.0-12.0 % Eosinophils (%) (Auto) 0.6 0.0-7.0 % Basophils (%) (Auto) 0.5 0.0-2.0 % Neutrophils # (Auto) 3.5 1.6-8.6 10 ^3/uL Lymphocytes # (Auto) 0.9 0.4-5.4 10 ^3/uL Monocytes # (Auto) 0.3 0-1.3 10 ^3/uL Eosinophils # (Auto) 0 0-0.8 10 ^3/uL Basophils # (Auto) 0 0-0.2 10 ^3/uL Nucleated Red Blood Cells 0.1 % Sodium Level 146 H 136-145 mmol/L Potassium Level 4.3 3.5-5.1 mmol/L Chloride Level 105 98-107 mmol/L Carbon Dioxide Level 36 H 20-31 mmol/L Anion Gap 5 5-15 Blood Urea Nitrogen 11 9-23 mg/dL Creatinine 0.98 # 0.550-1.02 mg/dL Glomerular Filtration Rate Calc 68 >90 mL/min BUN/Creatinine Ratio 11.2 10.0-20.0 Serum Glucose 140 H 74-106 mg/dL Lactic Acid Level 1.2 0.4-2.0 mmol/L Calcium Level 9.3 8.7-10.4 mg/dL Total Bilirubin 0.3 0.2-1.0 mg/dL Aspartate Amino Transferase (AST) 13 13-40 U/L Alanine Aminotransferase (ALT) 14 7-40 U/L Alkaline Phosphatase 75 46-116 U/L B-Type Natriuretic Peptide 50.17 0-100 pg/mL Total Protein 5.4 L 5.7-8.2 g/dL Albumin 3.9 3.2-4.8 g/dL Blood Gas Specimen Type Venous Blood Gas Sample Site Vbg - n/a Blood Gas Patient Temperature 37.0 Arterial Blood Date Drawn [id number] Clay Test N/a Venous Blood pH 7.302 L 7.320-7.430 Venous Blood pCO2 at Patient Temp 68.4 *H 38.0-54.0 mmHg Venous Blood pO2 at Patient Temp 88.1 H 23.0-48.0 mmHg Venous Blood HCO3 33.1 H 22.0-29.0 mmol/L Venous Blood Base Excess 4.3 H -2.0-3.0 mmol/L Blood Gas Modality Room air FiO2 % 21.0 Specimen Drawn By Lab Blood Gas Critical Value Read Back Yes Blood Gas Notified Whom erendira Rodriguez Blood Gas Notified Time [id number] Blood Gas Notified By Repeat Photocomposing Machine Operator tracie spence Current Medications Medications (Trade) Dose Ordered Sig/Elaine Route Start Time Stop Time Status Last Admin Albuterol (Ventolin Medneb) 5 mg ONCE ONCE NEB 08/12/25 19:30 08/12/25 19:31 DC 08/12/25 19:30 Ipratropium [place] (Atrovent Medneb) 0.5 mg ONCE ONCE NEB 08/12/25 19:30 08/12/25 19:31 DC 08/12/25 19:30 Prednisone 40 mg ONCE ONCE PO 08/12/25 19:30 08/12/25 19:31 DC 08/12/25 19:30 Time of 1ST Reevaluation: 20:11 Reevaluation 1ST: Unchanged Patient Education/Counseling: Diagnosis, Treatment Family Education/Counseling: No Family Present SEPSIS Sepsis Screen Date sepsis recognized/suspect: Aug 12, 2025 Time Sepsis recognized/suspect: 1899 Recent Procedure: No On Antibiotic Therapy: No Respiratory Rate >20: Yes Heart Rate >90: Yes Temp<36 C (96.8 F) or >38.3 C: No SBP <90 or MAP <65 mmHG: No New Acute Mental Status Change: No Is the patient on CPAP, BIPAP,: No Physician Orders Urinalysis (08/12/25 19:19) Blood Culture (08/12/25 19:19) Chest Portable (08/12/25 19:23) Venous Blood Gas (08/12/25 19:23) Vital Signs Date Time Temp Pulse Resp B/P (MAP) Pulse Ox O2 Delivery O2 Flow Rate FiO2 08/12/25 22:41 97.5 75 20 110/56 (74) 97 97.5 08/12/25 22:41 75 20 98 Room Air 08/12/25 22:17 97.6 77 19 112/48 (69) 95 97.6 08/12/25 19:47 93 08/12/25 19:30 24 96 Nasal Cannula* 4 36 08/12/25 19:15 98.2 95 24 131/76 100 98.2 Laboratory Tests Test 08/12/25 19:40 Lactic Acid Level 1.2 mmol/L (0.4-2.0) White Blood Count 4.7 10^3/uL (4.4-10.8) Medications Medications Dose Ordered Sig/Elaine Route Start Time Stop Time Status Last Admin Dose Admin Albuterol 5 mg ONCE ONCE NEB 08/12/25 19:30 08/12/25 19:31 DC 08/12/25 19:30 Ipratropium [place] 0.5 mg ONCE ONCE NEB 08/12/25 19:30 08/12/25 19:31 DC 08/12/25 19:30 Prednisone 40 mg ONCE ONCE PO 08/12/25 19:30 08/12/25 19:31 DC 08/12/25 19:30 Departure 1 Departure Time of Disposition: 22:00 Impression: Primary Impression: COPD (chronic obstructive pulmonary disease) Additional Impression: Schizophrenia Disposition: HOME / SELF CARE / HOMELESS Condition: Stable e-Prescriptions Prednisone (Prednisone) 20 Mg Tab 20 MG PO BID for 5 Days, #10 TAB Prov: ERENDIRA OJEDA MD 08/12/25 Azithromycin (Azithromycin) 500 Mg Tab 1 TAB PO DAILY for 3 Days, #3 TAB Prov: ERENDIRA OJEDA MD 08/12/25 Albuterol Sulfate (Albuterol Sulfate Hfa) 108 Mcg/Act Aer 108 MCG IN Q6HP PRN, #1 AER 3 Refills Prov: ERENDIRA OJEDA MD 08/12/25 Discharged With: Self Critical Care Note Critical Care Time?: No Stability Stability form required: No Heart Score Heart Score: Heart Score Response (Comments) Value History N/A 0 EKG N/A 0 Age N/A 0 Risk Factors N/A 0 Troponin N/A 0 Total 0 I personally scribed for ERENDIRA OJEDA MD ([email or web address]) on 08/12/25 at 20:13. Electronically submitted by Evelio Caceres ([email or web address]). ERENDIRA OJEDA MD Aug 12, 2025 20:13
[2025-08-12 20:19] LABS: Alanine Aminotransferase 14 U/L (7-40); Alkaline Phosphatase 75 U/L (46-116); Anion Gap 5 (5-15); BUN/Creatinine Ratio 11.2 (10.0-20.0); Blood Urea Nitrogen 11 mg/dL (9-23); Calcium 9.3 mg/dL (8.7-10.4); Chloride 105 mmol/L (98-107); Potassium 4.3 mmol/L (3.5-5.1)
[2025-08-12 20:20] LABS: Albumin 3.9 g/dL (3.2-4.8); Bilirubin, Total 0.3 mg/dL (0.2-1.0)
--- NOTE | 2025-08-12 20:28 | DVH ---
CHEST RADIOGRAPH Indication: SOB Technique: Single frontal view of the chest was obtained COMPARISON: XY CHEST PORTABLE on DOS: 08/08/25, XY CHEST PORTABLE on DOS: 07/25/25, XY CHEST PORTABLE on DOS: 07/24/25, XY CHEST PORTABLE on DOS: 07/19/25, XY CHEST PORTABLE on DOS: 07/16/25 FINDINGS: Lungs and pleural spaces are clear. Cardiac silhouette and giorgio are within normal limits. Bones and soft tissues demonstrate no significant abnormality. IMPRESSION: No acute disease.
[2025-08-12 20:35] LABS: Carbon Dioxide 36 mmol/L (20-31); Glucose 140 mg/dL (74-106); Sodium 146 mmol/L (136-145); Total Protein 5.4 g/dL (5.7-8.2)
--- NOTE | 2025-08-12 20:52 | ECG ---
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
[2025-08-12] MEDS ORDERED: ALBU108A5 IN (21:22)
[2025-08-12] MEDS ORDERED: AZIT500T66 PO (21:22)
[2025-08-12] MEDS ORDERED: PRED20TA2 PO (21:22)
[2025-08-12 22:41] VITALS: BP 110/56; PULSE 75; RESP 20; TEMP 97.5; O2SAT 98
== END 2025-08-12 22:44 | disposition home or self-care (01) ==
LOC: ER 18:57 → EDUNIT# 18:57 → EDBD 18:57 → ER 22:44
DX: J44.9 Chronic obstructive pulmonary disease, unspecified (principal); F20.9 Schizophrenia, unspecified; I10 Essential (primary) hypertension; F17.210 Nicotine dependence, cigarettes, uncomplicated; Z79.899 Other long term (current) drug therapy
CPT/HCPCS: 36415; 36600; 71045; 80053; 82805; 83605; 83880; 84484; 85025; 87040; 93005; 94640; 99285; J7512

== ENCOUNTER 2025-08-14 01:56 | Emergency (ER) | payer OTHER ==
[~2025-08-14] VITALS: Ht 160 cm; Wt 68.2 kg
[~2025-08-14 01:56] MED LIST changes: +ALBU108A5 IN; +AZIT500T66 PO
[2025-08-14 02:03] VITALS: BP 110/80; TEMP 98.9
--- NOTE | 2025-08-14 02:09 | ED.PDOC ---
SOB-HPI HPI Comments 55-year-old female who came to ER via EMS for shortness of breath. Patient resides at [facility] facility. Seen here multiple times for shortness of breath. Does have history of COPD and schizophrenia. Coming in again complaining of shortness of breath. Patient currently refusing to answer any more questions. Chief Complaint: Shortness of Breath Time Seen by MD: 02:09 Primary Care Provider: UNKNOWN Reviewed notes: Turn Operator Notes Information Source: Patient, Emergency Med Personnel Mode of Arrival: EMS Past Medical History PAST MEDICAL HISTORY: Asthma, COPD, HTN, Schizophrenia, UTI'S Surgical History: Denies all surgeries KITMAN History: Denies all KITMAN Hx Family History Family History: Reviewed,noncontributory to illness, Unknown Social History Smoker: Cigarettes, Less Than 1 Pack/Day Alcohol: Denies ETOH Use Drugs: Denies Drug Use Lives In: Assisted Care Constitutional: denies: chills, diaphoresis, fatigue, fever, malaise, sweats, weakness, others EENTM: denies: blurred vision, double vision, ear bleeding, ear discharge, ear drainage, ear pain, ear ringing, eye pain, eye redness, hearing loss, mouth pain, mouth swelling, nasal discharge, nose bleeding, nose congestion, nose pain, photophobia, tearing, throat pain, throat swelling, voice changes, others Respiratory: reports: shortness of breath, SOB with excertion; denies: cough, hemoptysis, orthopnea, SOB at rest, stridor, wheezing, others Cardiovascular: denies: chest pain, dizzy spells, diaphoresis, Dyspnea on exertion, edema, irregular heart beat, left arm pain, lightheadedness, palpitations, PND, syncope, others Gastrointestinal: denies: abdomen distended, abdominal pain, blood streaked bowels, constipated, diarrhea, dysphagia, difficulty swallowing, hematemesis, melena, nausea, poor appetite, poor fluid intake, rectal bleeding, rectal pain, vomiting, others Genitourinary: denies: abnormal vagina bleeding, burning, dyspareunia, dysuria, flank pain, frequency, hematuria, incontinence, pain, , vagina discharge, urgency, others Neurological: denies: dizziness, fainting, headache, left sided numbness, left sided weakness, numbness, paresthesia, pre-existing deficit, right sided numbness, right sided weakness, seizure, speech problems, tingling, tremors, weakness, others Musculoskeletal: denies: back pain, gout, joint pain, joint swelling, muscle pain, muscle stiffness, neck pain, others Integumetry: denies: bruises, change in color, change in hair/nails, dryness, laceration, lesions, lumps, rash, wounds, others Allergic/Immunocompromised: denies: Difficulty Healing, Frequent Infections, Hives, Itching, others Hematologic/Lymphatic: denies: anemia, blood clots, easy bleeding, easy bruising, swollen glands, others Endocrine: denies: excessive hunger, excessive sweating, excessive thirst, excessive urination, flushing, intolerance to cold, intolerance to heat, unexplained weight gain, unexplained weight loss, others Psychiatric: denies: anxiety, bipolar disorder, depression, hopeless, panic disorder, schizophrenia, sleepless, suicidal, others Physical Exam General Appearance: No Apparent Distress, Normal HEENT: Normal ENT Inspection, Pharynx Normal, TMs Normal Neck: Full Range of Motion, Non-Tender, Normal, Normal Inspection Respiratory: Chest Non-Tender, Lungs Clear, No Accessory Muscle Use, No Respiratory Distress, Normal Breath Sounds Cardiovascular: No Edema, No JVD, No Murmur, No Gallop, Normal Peripheral Pulses, Regular Rate/Rhythm Breast Exam: Deferred Gastrointestinal: No Organomegaly, Non Tender, No Pulsatile Mass, Normal Bowel Sounds, Soft Genitalia: Deferred Pelvic: Deferred Rectal: Deferred Extremities: No calf tenderness, Normal capillary refill, Normal inspection, Normal range of motion, Non-tender, No pedal edema Musculoskeletal : Apperance: Normal Neurologic: Alert, stretch box tender II-XII 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 Was a procedure done?: No Differential Dx Differential Diagnosis: Asthma, Bronchitis, CHF, COPD, Respiratory Distress X-Ray, Labs, Meds, VS Vital Signs Date Time Temp Pulse Resp B/P (MAP) Pulse Ox O2 Delivery O2 Flow Rate FiO2 08/14/25 04:46 89 20 96 Room Air 08/14/25 02:38 20 93 Nasal Cannula* 3 32 08/14/25 02:03 98.9 90 15 110/80 98 98.9 08/14/25 02:00 85 Current Medications Medications (Trade) Dose Ordered Sig/Elaine Route Start Time Stop Time Status Last Admin Albuterol (Ventolin Medneb) 5 mg ONCE ONCE NEB 08/14/25 02:15 08/14/25 02:16 DC 08/14/25 02:36 Ipratropium Knippa (Atrovent Medneb) 0.5 mg ONCE ONCE NEB 08/14/25 02:15 08/14/25 02:16 DC 08/14/25 02:37 Time of 1ST Reevaluation: 02:07 Reevaluation 1ST: Unchanged Patient Education/Counseling: Diagnosis, Treatment Family Education/Counseling: No Family Present SEPSIS Sepsis Screen Physician Orders Electrocardigram (08/14/25 02:04) Chest Xray 1 View (08/14/25 02:03) Vital Signs Date Time Temp Pulse Resp B/P (MAP) Pulse Ox O2 Delivery O2 Flow Rate FiO2 08/14/25 04:46 89 20 96 Room Air 08/14/25 02:38 20 93 Nasal Cannula* 3 32 08/14/25 02:03 98.9 90 15 110/80 98 98.9 08/14/25 02:00 85 Departure 1 Departure Time of Disposition: 04:00 Impression: Primary Impression: COPD exacerbation Additional Impression: Schizophrenia Disposition: 01 HOME / SELF CARE / HOMELESS Condition: Stable e-Prescriptions Azithromycin (Azithromycin) 500 Mg Tab 1 TAB PO DAILY for 3 Days, #3 TAB Prov: MANDY OJEDA MD 08/14/25 Prednisone (Prednisone) 20 Mg Tab 20 MG PO BID for 5 Days, #10 TAB Prov: MANDY OJEDA MD 08/14/25 Albuterol Sulfate (Albuterol Sulfate Hfa) 108 Mcg/Act Aer 108 MCG IN Q6HP PRN, #1 AER Prov: MANDY OJEDA MD 08/14/25 Discharged With: Self Critical Care Note Critical Care Time?: No Stability Stability form required: No Heart Score Heart Score: Heart Score Response (Comments) Value History Slightly Suspicious 0 EKG Normal 0 Age <45 0 Risk Factors No known risk factors 0 Troponin Normal limit 0 Total 0 I personally scribed for MANDY OJEDA MD ([email or web address]) on 08/14/25 at 02:09. Electronically submitted by Evelio Caceres ([email or web address]). MANDY OJEDA MD Aug 14, 2025 02:09
[2025-08-14] MEDS: ALBUTEROL SULF 2.5 MG/0.5ML(0.5%) NEB SOLN NEB ONE (02:36)
[2025-08-14] MEDS: IPRATROPIUM BROM 0.5 MG/2.5ML INH SOL NEB ONE (02:37)
--- NOTE | 2025-08-14 02:42 | DVH ---
CHEST RADIOGRAPH Indication: SOB Technique: Single frontal view of the chest was obtained COMPARISON: XY CHEST PORTABLE on DOS: 08/12/25, XY CHEST PORTABLE on DOS: 08/08/25, XY CHEST PORTABLE on DOS: 07/25/25, XY CHEST PORTABLE on DOS: 07/24/25, XY CHEST PORTABLE on DOS: 07/19/25 FINDINGS: Lines and Tubes: None Lungs: Clear Pleura: No effusion. No pneumothorax. Cardiomediastinal contours: Unremarkable Bones: Unremarkable IMPRESSION: 1. No acute disease.
[2025-08-14] MEDS: predniSONE 20 MG TAB PO ONE (02:50)
[2025-08-14 04:46] VITALS: PULSE 89; RESP 20; O2SAT 96
[2025-08-15] MEDS ORDERED: ZOFR4T PO (04:47)
[2025-08-15] MEDS ORDERED: GABA300T4 PO (04:47)
--- NOTE | 2025-08-16 07:17 | ECG ---
[facility] Test Date: 2025-08-14 Test Time: 02:00:57 Pat Name: NATIVIDAD URBAN Department: [facility] ED Patient ID: [facility]-[id number] Room: Gender: F [employer]: reji : 1970 Requested By: MANDY OJEDA Order Number: [id number] Reading MD: Guanaco Camacho Measurements Intervals Heaters Rate: 85 P: 93 TN: 121 QRS: 104 QRSD: 80 T: 85 QT: 381 QTc: 453 Interpretive Statements Sinus rhythm Lateral infarct, old Anteroseptal infarct, age indeterminate Electronically Signed On 08-17-2025 14:59:19 PST by Guanaco Camacho Please click the below link to view image of tracing.
== END 2025-08-14 04:49 | disposition home or self-care (01) ==
LOC: ER 01:56 → EDBD 01:56 → ER 04:49
DX: J44.1 Chronic obstructive pulmonary disease with (acute) exacerbation (principal); F20.9 Schizophrenia, unspecified; I10 Essential (primary) hypertension; F17.210 Nicotine dependence, cigarettes, uncomplicated
CPT/HCPCS: 71045; 93005; 94640

== ENCOUNTER 2025-08-15 02:53 | Emergency (ER) | payer OTHER ==
[~2025-08-15] VITALS: Ht 167.6 cm; Wt 63.5 kg
--- NOTE | 2025-08-15 03:06 | ED.PDOC ---
History of Present Illness HPI Comments 55-year-old female who came to ER via EMS for abdominal pain. She resides at [facility] facility. Has history of COPD and schizophrenia. Seen here multiple times for shortness of breath. Currently complaining of shortness of breath and lower abdominal pain. Chief Complaint: Abdominal pain Time Seen by MD: 03:06 Primary Care Provider: UNKNOWN Reviewed Notes: Firebrick And Refractory Tile Repairer Notes Allergies: Coded Allergies: Azithromycin (Verified Allergy, Severe, 08/02/25) Lactose (Verified Allergy, Severe, 11/15/24) Erythromycin (Verified Allergy, Intermediate, 07/19/25) Home Meds Active Scripts Gabapentin (Once-Daily) (Gabapentin) 300 Mg Tab, 300 MG PO Q6HP PRN, #60 TAB Prov:MANDY OJEDA MD 08/15/25 Ondansetron Odt 4MG Tab (ZOFRAN PO) 4 Mg Tb, 4 MG PO Q6HP PRN, #30 TAB ODT TAB-DISSOLVE IN MOUTH, THEN SWALLOW Prov:MANDY OJEDA MD 08/15/25 Azithromycin (Azithromycin) 500 Mg Tab, 1 TAB PO DAILY for 3 Days, #3 TAB Prov:MANDY OJEDA MD 08/14/25 Prednisone (Prednisone) 20 Mg Tab, 20 MG PO BID for 5 Days, #10 TAB Prov:MANDY OJEDA MD 08/14/25 Albuterol Sulfate (Albuterol Sulfate Hfa) 108 Mcg/Act Aer, 108 MCG IN Q6HP PRN, #1 AER Prov:MANDY OJEDA MD 08/14/25 Prednisone (Prednisone) 20 Mg Tab, 20 MG PO BID for 5 Days, #10 TAB Prov:MANDY OJEDA MD 08/12/25 Azithromycin (Azithromycin) 500 Mg Tab, 1 TAB PO DAILY for 3 Days, #3 TAB Prov:MANDY OJEDA MD 08/12/25 Albuterol Sulfate (Albuterol Sulfate Hfa) 108 Mcg/Act Aer, 108 MCG IN Q6HP PRN, #1 AER 3 Refills Prov:MANDY OJEDA MD 08/12/25 Acetaminophen (Acetaminophen) 500 Mg Tab, 500 MG PO Q4HPRN, #30 TAB 0 Refills Prov:KENTON PARTIDA 08/12/25 Sulfamethoxazole W/Trimethopri (Bactrim Ds Tablet) 1 Tab Tb, 1 TAB PO BID for 7 Days, #14 TAB 0 Refills Prov:KENTON PARTIDA 08/12/25 Benzonatate (Benzonatate) 100 Mg Cap, 1 CAP PO TID for 30 Days, #30 CAP Prov:ADAM SU DO 08/10/25 Quetiapine Fumerate (QUETIAPINE FUMARATE) 100 Mg Tab, 100 MG PO BID for 30 Days, #60 TAB 5 Refills Prov:ADAM SU 08/10/25 Ipratropium-Albuterol (COMBIVENT RESPIMAT) Respimat Aer, 1 PUFF IN Q4HP PRN, #1 AER Prov:KEYUR BEAVER MD 08/08/25 Prednisone (Prednisone) 20 Mg Tab, 20 MG PO DAILY for 5 Days, #5 MG Prov:KEYUR BEAVER MD 08/08/25 Albuterol Sulfate (Ventolin) 2 Mg/5 Ml Sr, 5 ML PO TID PRN for 30 Days, #150 ML 3 Refills Prov:ADAM SU 07/21/25 Loperamide Hcl (Imodium) 2 Mg Cp, 2 MG PO Q6HPRN PRN for 30 Days, #10 CAP Prov:JOYA PLATT PROSTHETIC TECHNICIAN 06/22/25 Divalproex Sodium (Divalproex Sodium) 500 Mg Tab, 500 MG PO BID for 30 Days, #60 MG Prov:JOYA PLATT PROSTHETIC TECHNICIAN 05/19/25 Haloperidol (Haldol) 5 Mg Tb, 3 MG PO BID for 30 Days, #60 MG Prov:JOYA PLATT PROSTHETIC TECHNICIAN 05/19/25 Benztropine Mesylate (Benztropine Mesylate) 1 Mg Tab, 1 MG PO BID for 30 Days, #60 MG Prov:JOYA PLATT PROSTHETIC TECHNICIAN 05/19/25 Trazodone Hcl (Trazodone Hcl) 50 Mg Tab, 75 MG PO HS for 30 Days, #45 MG Prov:JOYA PLATT PROSTHETIC TECHNICIAN 05/19/25 Reported Medications Haloperidol (Haldol) 5 Mg Tb, 5 MG PO BID, MG 07/19/25 Ondansetron Odt 4MG Tab (ZOFRAN PO) 4 Mg Tb, 4 MG PO, TAB ODT TAB-DISSOLVE IN MOUTH, THEN SWALLOW 07/16/25 Naproxen (NAPROSYN TABLET) 500 Mg Tb, 1 TAB PO BID, #60 TAB 1 Refill 07/16/25 Acetaminophen (Tylenol Extra Strength) 500 Mg Tab, 500 MG PO, TAB 07/16/25 Fluticasone-Salmeterol (Advair Diskus 250/50) 1 Puff Ih, 1 PUFF INH BID, #3 INHALER 3 Refills 07/16/25 Dextromethorphan-Guaifenesin (Tussin Dm Cough & Chest C 20-200 mg/20Ml) 1 Liq Liq, 1 LIQ PO, LIQ 07/16/25 Quetiapine Fumerate (Seroquel) 50 Mg Tab, 1 TAB PO QPM, #30 TAB 2 Refills 07/16/25 Pantoprazole Sodium (PANTOPRAZOLE SODIUM) 40 Mg Inj, 40 MG PO DAILY, INJ 07/16/25 Information Source: Patient, Emergency Med Personnel Mode of Arrival: EMS Past Medical History PAST MEDICAL HISTORY: Asthma, COPD, HTN, Schizophrenia, UTI'S Surgical History: Denies all surgeries DIRECTOR LIFE INSURANCE History: Denies all DIRECTOR LIFE INSURANCE Hx Family History Family History: Reviewed,noncontributory to illness, Unknown Social History Smoker: Cigarettes, Less Than 1 Pack/Day Alcohol: Denies ETOH Use Drugs: Denies Drug Use Lives In: Assisted Care Constitutional: denies: chills, diaphoresis, fatigue, fever, malaise, sweats, weakness, others EENTM: denies: blurred vision, double vision, ear bleeding, ear discharge, ear drainage, ear pain, ear ringing, eye pain, eye redness, hearing loss, mouth pain, mouth swelling, nasal discharge, nose bleeding, nose congestion, nose pain, photophobia, tearing, throat pain, throat swelling, voice changes, others Respiratory: reports: shortness of breath; denies: cough, hemoptysis, orthopnea, SOB at rest, SOB with excertion, stridor, wheezing, others Cardiovascular: denies: chest pain, dizzy spells, diaphoresis, Dyspnea on exertion, edema, irregular heart beat, left arm pain, lightheadedness, palpitations, PND, syncope, others Gastrointestinal: reports: abdominal pain; denies: abdomen distended, blood streaked bowels, constipated, diarrhea, dysphagia, difficulty swallowing, hematemesis, melena, nausea, poor appetite, poor fluid intake, rectal bleeding, rectal pain, vomiting, others Genitourinary: denies: abnormal vagina bleeding, burning, dyspareunia, dysuria, flank pain, frequency, hematuria, incontinence, pain, , vagina discharge, urgency, others Neurological: denies: dizziness, fainting, headache, left sided numbness, left sided weakness, numbness, paresthesia, pre-existing deficit, right sided numbness, right sided weakness, seizure, speech problems, tingling, tremors, weakness, others Musculoskeletal: denies: back pain, gout, joint pain, joint swelling, muscle pain, muscle stiffness, neck pain, others Integumetry: denies: bruises, change in color, change in hair/nails, dryness, laceration, lesions, lumps, rash, wounds, others Allergic/Immunocompromised: denies: Difficulty Healing, Frequent Infections, Hives, Itching, others Hematologic/Lymphatic: denies: anemia, blood clots, easy bleeding, easy bruising, swollen glands, others Endocrine: denies: excessive hunger, excessive sweating, excessive thirst, excessive urination, flushing, intolerance to cold, intolerance to heat, unexp lained weight gain, unexplained weight loss, others Psychiatric: denies: anxiety, bipolar disorder, depression, hopeless, panic disorder, schizophrenia, sleepless, suicidal, others Physical Exam General Appearance: No Apparent Distress, Normal HEENT: Normal ENT Inspection, Pharynx Normal, TMs Normal Neck: Full Range of Motion, Non-Tender, Normal, Normal Inspection Respiratory: Chest Non-Tender, Lungs Clear, No Accessory Muscle Use, No Respiratory Distress, Normal Breath Sounds Cardiovascular: No Edema, No JVD, No Murmur, No Gallop, Normal Peripheral Pulses, Regular Rate/Rhythm Breast Exam: Deferred Gastrointestinal: No Organomegaly, Non Tender, No Pulsatile Mass, Normal Bowel Sounds, Soft Genitalia: Deferred Pelvic: Deferred Rectal: Deferred Extremities: No calf tenderness, Normal capillary refill, Normal inspection, Normal range of motion, Non-tender, No pedal edema Musculoskeletal : Apperance: Normal Neurologic: Alert, pneumatic tester mechanic II-XII 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 Was a procedure done?: No Differential Dx Considerations may include: Anemia, electrolyte imbalance, abdominal pain, UTI, COPD, schizophrenia X-Ray, Labs, Meds, VS Vital Signs Date Time Temp Pulse Resp B/P (MAP) Pulse Ox O2 Delivery O2 Flow Rate FiO2 08/15/25 03:10 98.0 96 20 101/53 98 98.0 08/15/25 02:57 92 Lab Test 08/15/25 03:08 Range/Units White Blood Count 4.8 4.4-10.8 10^3/uL Red Blood Count 4.09 4.0-5.20 10^6/uL Hemoglobin 12.8 12.2-16.2 g/dL Hematocrit 40.8 36.0-46.0 % Mean Corpuscular Volume 100.0 80.0-100.0 fL Mean Corpuscular Hemoglobin 31.3 28.0-32.0 pg Mean Corpuscular Hemoglobin Concent 31.3 L 32.0-36.0 g/dL Red Cell Distribution Width 17.2 H 11.8-14.3 % Platelet Count 130 L 140-450 10^3/uL Mean Platelet Volume 9.0 6.9-10.8 fL Neutrophils (%) (Auto) 56.5 37.0-80.0 % Lymphocytes (%) (Auto) 32.1 10.0-50.0 % Monocytes (%) (Auto) 8.6 0.0-12.0 % Eosinophils (%) (Auto) 2.1 0.0-7.0 % Basophils (%) (Auto) 0.7 0.0-2.0 % Neutrophils # (Auto) 2.7 1.6-8.6 10 ^3/uL Lymphocytes # (Auto) 1.6 0.4-5.4 10 ^3/uL Monocytes # (Auto) 0.4 0-1.3 10 ^3/uL Eosinophils # (Auto) 0.1 0-0.8 10 ^3/uL Basophils # (Auto) 0 0-0.2 10 ^3/uL Nucleated Red Blood Cells 0.2 % Sodium Level 144 136-145 mmol/L Potassium Level 4.4 3.5-5.1 mmol/L Chloride Level 105 98-107 mmol/L Carbon Dioxide Level 35 H 20-31 mmol/L Anion Gap 4 L 5-15 Blood Urea Nitrogen 9 9-23 mg/dL Creatinine 0.48 #L 0.550-1.02 mg/dL Glomerular Filtration Rate Calc 111 >90 mL/min BUN/Creatinine Ratio 18.8 10.0-20.0 Serum Glucose 87 74-106 mg/dL Calcium Level 8.7 8.7-10.4 mg/dL Total Bilirubin 0.3 0.2-1.0 mg/dL Aspartate Amino Transferase (AST) 12 L 13-40 U/L Alanine Aminotransferase (ALT) 11 7-40 U/L Alkaline Phosphatase 64 46-116 U/L Total Protein 5.1 L 5.7-8.2 g/dL Albumin 3.5 3.2-4.8 g/dL Lipase 36 12-53 U/L Time of 1ST Reevaluation: 03:02 Reevaluation 1ST: Unchanged Patient Education/Counseling: Diagnosis, Treatment Family Education/Counseling: No Family Present SEPSIS Sepsis Screen Vital Signs Date Time Temp Pulse Resp B/P (MAP) Pulse Ox O2 Delivery O2 Flow Rate FiO2 08/15/25 03:10 98.0 96 20 101/53 98 98.0 08/15/25 02:57 92 Laboratory Tests Test 08/15/25 03:08 White Blood Count 4.8 10^3/uL (4.4-10.8) Departure 1 Departure Time of Disposition: 03:35 Impression: Primary Impression: Schizophrenia Additional Impressions: Abdominal pain COPD (chronic obstructive pulmonary disease) Disposition: 01 HOME / SELF CARE / HOMELESS Condition: Stable e-Prescriptions Gabapentin (Once-Daily) (Gabapentin) 300 Mg Tab 300 MG PO Q6HP PRN, #60 TAB Prov: MANDY OJEDA MD 08/15/25 Ondansetron Odt 4MG Tab (ZOFRAN PO) 4 Mg Tb 4 MG PO Q6HP PRN, #30 TAB ODT TAB-DISSOLVE IN MOUTH, THEN SWALLOW Prov: MANDY OJEDA MD 08/15/25 Discharged With: Self Critical Care Note Critical Care Time?: No Stability Stability form required: No Heart Score Heart Score: Heart Score Response (Comments) Value History N/A 0 EKG N/A 0 Age N/A 0 Risk Factors N/A 0 Troponin N/A 0 Total 0 I personally scribed for MANDY OJEDA MD ([email or web address]) on 08/15/25 at 03:06. El ectronically submitted by Evelio Caceres ([facility] MANDY OJEDA MD Aug 15, 2025 03:06
[2025-08-15 03:10] VITALS: BP 101/53; PULSE 96; RESP 20; TEMP 98; O2SAT 98
[2025-08-15] MEDS: ONDANSETRON ODT 4 MG TAB PO ONE (03:12)
[2025-08-15] MEDS: HYDROcodone-ACET 5/325MG TAB PO ONE (03:19)
[2025-08-15 03:48] LABS: Hematocrit 40.8 % (36.0-46.0); Hemoglobin 12.8 g/dL (12.2-16.2); Mean Corpuscular Hemoglobin 31.3 pg (28.0-32.0); Mean Corpuscular Volume 100.0 fL (80.0-100.0); Nucleated Red Blood Cells % 0.2 %
[2025-08-15 04:01] LABS: Alanine Aminotransferase 11 U/L (7-40); Albumin 3.5 g/dL (3.2-4.8); Alkaline Phosphatase 64 U/L (46-116); Anion Gap 4 (5-15); BUN/Creatinine Ratio 18.8 (10.0-20.0); Blood Urea Nitrogen 9 mg/dL (9-23); Calcium 8.7 mg/dL (8.7-10.4); Chloride 105 mmol/L (98-107); Glucose 87 mg/dL (74-106); Lipase 36 U/L (12-53); Potassium 4.4 mmol/L (3.5-5.1); Sodium 144 mmol/L (136-145)
[2025-08-15 04:02] LABS: Bilirubin, Total 0.3 mg/dL (0.2-1.0)
[2025-08-15 04:27] LABS: Carbon Dioxide 35 mmol/L (20-31); Total Protein 5.1 g/dL (5.7-8.2)
[2025-08-15] MEDS ORDERED: ZOFR4T PO (04:47)
[2025-08-15] MEDS ORDERED: GABA300T4 PO (04:47)
--- NOTE | 2025-08-15 07:07 | ECG ---
[facility] Test Date: 2025-08-15 Test Time: 02:57:53 Pat Name: NATIVIDAD URBAN Department: ED Room: Gender: F Safety Manager: YANET : 1970 Requested By: EMERGENCY EMERGENCY Order Number: [id number] Reading MD: Guanaco Camacho Measurements Intervals [place] Rate: 92 P: 86 LA: 124 QRS: 103 QRSD: 78 T: 73 QT: 351 QTc: 435 Interpretive Statements Sinus rhythm Right axis deviation Electronically Signed On 08-17-2025 15:01:36 PST by Guanaco Camacho Please click the below link to view image of tracing.
== END 2025-08-15 07:16 | disposition home or self-care (01) ==
LOC: EDBD 02:53 → ER 02:53
DX: F20.9 Schizophrenia, unspecified (principal); R10.9 Unspecified abdominal pain; J44.9 Chronic obstructive pulmonary disease, unspecified; F17.210 Nicotine dependence, cigarettes, uncomplicated; I10 Essential (primary) hypertension; Z79.899 Other long term (current) drug therapy; Z88.1 Allergy status to other antibiotic agents
CPT/HCPCS: 36415; 80053; 83690; 85025; 93005; 99284; Q0162

== ENCOUNTER 2025-08-15 22:38 | Emergency (ER) | payer OTHER ==
[~2025-08-15] VITALS: Ht 152.4 cm; Wt 45.5 kg
[~2025-08-15 22:38] MED LIST changes: +GABA300T4 PO
[2025-08-15 22:40] VITALS: BP 108/66; PULSE 108; TEMP 97.6
--- NOTE | 2025-08-15 22:54 | ED.PDOC ---
History of Present Illness HPI Comments 55-year-old female is brought in by ambulance from [facility] for chief complaint of nonradiating, RLQ abdominal pain. Per EMS personnel report, patient voices on sudden, unprovoked, atraumatic onset of 10/10, dull pain at around 2000, this evening. On scene, patient was found with an SpO2 of 60% on room air. Patient is, normally, on home O2 but was found without it on scene. Additionally, patient has a systolic pressure in the 80s and received IV fluids EN route via 22G right AC. Patient has no reported nausea, vomiting, diarrhea, constipation, shortness of breath, or further acute symptoms. Chief Complaint: Abdominal Pain Time Seen by MD: 22:45 Primary Care Provider: UNKNOWN Reviewed Notes: Nurses Notes, Application Development Liaison Notes, Medications, Allergies Allergies: Coded Allergies: Azithromycin (Verified Allergy, Severe, 08/02/25) Lactose (Verified Allergy, Severe, 11/15/24) Erythromycin (Verified Allergy, Intermediate, 07/19/25) Home Meds Active Scripts Gabapentin (Once-Daily) (Gabapentin) 300 Mg Tab, 300 MG PO Q6HP PRN, #60 TAB Prov:MANDY OJEDA MD 08/15/25 Ondansetron Odt 4MG Tab (ZOFRAN PO) 4 Mg Tb, 4 MG PO Q6HP PRN, #30 TAB ODT TAB-DISSOLVE IN MOUTH, THEN SWALLOW Prov:MANDY OJEDA MD 08/15/25 Azithromycin (Azithromycin) 500 Mg Tab, 1 TAB PO DAILY for 3 Days, #3 TAB Prov:MANDY OJEDA MD 08/14/25 Prednisone (Prednisone) 20 Mg Tab, 20 MG PO BID for 5 Days, #10 TAB Prov:MANDY OJEDA MD 08/14/25 Albuterol Sulfate (Albuterol Sulfate Hfa) 108 Mcg/Act Aer, 108 MCG IN Q6HP PRN, #1 AER Prov:MANDY OJEDA MD 08/14/25 Prednisone (Prednisone) 20 Mg Tab, 20 MG PO BID for 5 Days, #10 TAB Prov:MANDY OJEDA MD 08/12/25 Azithromycin (Azithromycin) 500 Mg Tab, 1 TAB PO DAILY for 3 Days, #3 TAB Prov:MANDY OJEDA MD 08/12/25 Albuterol Sulfate (Albuterol Sulfate Hfa) 108 Mcg/Act Aer, 108 MCG IN Q6HP PRN, #1 AER 3 Refills Prov:MANDY OJEDA MD 08/12/25 Acetaminophen (Acetaminophen) 500 Mg Tab, 500 MG PO Q4HPRN, #30 TAB 0 Refills Prov:KENTON PARTIDA 08/12/25 Sulfamethoxazole W/Trimethopri (Bactrim Ds Tablet) 1 Tab Tb, 1 TAB PO BID for 7 Days, #14 TAB 0 Refills Prov:KENTON PARTIDA 08/12/25 Benzonatate (Benzonatate) 100 Mg Cap, 1 CAP PO TID for 30 Days, #30 CAP Prov:ADAM SU DO 08/10/25 Quetiapine Fumerate (QUETIAPINE FUMARATE) 100 Mg Tab, 100 MG PO BID for 30 Days, #60 TAB 5 Refills Prov:ADAM SU DO 08/10/25 Ipratropium-Albuterol (COMBIVENT RESPIMAT) Respimat Aer, 1 PUFF IN Q4HP PRN, #1 AER Prov:KEYUR BEAVER MD 08/08/25 Prednisone (Prednisone) 20 Mg Tab, 20 MG PO DAILY for 5 Days, #5 MG Prov:KEYUR BEAVER MD 08/08/25 Albuterol Sulfate (Ventolin) 2 Mg/5 Ml Sr, 5 ML PO TID PRN for 30 Days, #150 ML 3 Refills Prov:ADAM SU DO 07/21/25 Loperamide Hcl (Imodium) 2 Mg Cp, 2 MG PO Q6HPRN PRN for 30 Days, #10 CAP Prov:JOYA PLATT NP 06/22/25 Divalproex Sodium (Divalproex Sodium) 500 Mg Tab, 500 MG PO BID for 30 Days, #60 MG Prov:JOYA PLATT NP 05/19/25 Haloperidol (Haldol) 5 Mg Tb, 3 MG PO BID for 30 Days, #60 MG Prov:JOYA PLATT NP 05/19/25 Benztropine Mesylate (Benztropine Mesylate) 1 Mg Tab, 1 MG PO BID for 30 Days, #60 MG Prov:JOYA PLATT NP 05/19/25 Trazodone Hcl (Trazodone Hcl) 50 Mg Tab, 75 MG PO HS for 30 Days, #45 MG Prov:JOYA PLATT CUSTOMER SERVICE TELLER 05/19/25 Reported Medications Haloperidol (Haldol) 5 Mg Tb, 5 MG PO BID, MG 07/19/25 Ondansetron Odt 4MG Tab (ZOFRAN PO) 4 Mg Tb, 4 MG PO, TAB ODT TAB-DISSOLVE IN MOUTH, THEN SWALLOW 07/16/25 Naproxen (NAPROSYN TABLET) 500 Mg Tb, 1 TAB PO BID, #60 TAB 1 Refill 07/16/25 Acetaminophen (Tylenol Extra Strength) 500 Mg Tab, 500 MG PO, TAB 07/16/25 Fluticasone-Salmeterol (Advair Diskus 250/50) 1 Puff Ih, 1 PUFF INH BID, #3 INHALER 3 Refills 07/16/25 Dextromethorphan-Guaifenesin (Tussin Dm Cough & Chest C 20-200 mg/20Ml) 1 Liq Liq, 1 LIQ PO, LIQ 07/16/25 Quetiapine Fumerate (Seroquel) 50 Mg Tab, 1 TAB PO QPM, #30 TAB 2 Refills 07/16/25 Pantoprazole Sodium (PANTOPRAZOLE SODIUM) 40 Mg Inj, 40 MG PO DAILY, INJ 07/16/25 Information Source: Patient, Emergency Med Personnel Mode of Arrival: EMS Severity: Moderate Timing: Hours Duration: Since onset Prehospital treatment: 12 Lead EKG, Lard Maker, IVF, Oxygen Past Medical History PAST MEDICAL HISTORY: Asthma, COPD, HTN, Schizophrenia, UTI'S Surgical History: Denies all surgeries CUFF FOLDER History: Denies all CUFF FOLDER Hx Family History Family History: Reviewed,noncontributory to illness, Unknown Social History Smoker: Cigarettes, Less Than 1 Pack/Day Alcohol: Denies ETOH Use Drugs: Denies Drug Use Lives In: Assisted Care All Other Systems: Reviewed and Negative (Comprehensive review of systems are negative unless otherwise stated in HPI) Physical Exam General Appearance: No Apparent Distress, Normal HEENT: Normal ENT Inspection, Pharynx Normal, TMs Normal Neck: Full Range of Motion, Non-Tender, Normal, Normal Inspection Respiratory: Chest Non-Tender, No Accessory Muscle Use, No Respiratory Distress, Wheezing (Few scattered wheezes bilaterally) Cardiovascular: No Edema, No JVD, No Murmur, No Gallop, Normal Peripheral Pulses, Regular Rate/Rhythm Breast Exam: Deferred Gastrointestinal: No Organomegaly, Non Tender, No Pulsatile Mass, Normal Bowel Sounds, Soft Genitalia: Deferred Pelvic: Deferred Rectal: Deferred Extremities: No calf tenderness, Normal capillary refill, Normal inspection, Normal range of motion, Non-tender, No pedal edema Musculoskeletal : Apperance: Normal Neurologic: Alert, nut sorter II-XII 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 Was a procedure done?: No Differential Dx Considerations may include: Acute asthma/COPD exacerbation, noncompliance with home O2, appendicitis, diverticulitis, viral, among others X-Ray, Labs, Meds, VS Vital Signs Date Time Temp Pulse Resp B/P (MAP) Pulse Ox O2 Delivery O2 Flow Rate FiO2 08/16/25 00:02 16 96 Nasal Cannula* 2 28 08/15/25 23:04 16 97 Nasal Cannula* 2 28 08/15/25 22:40 97.6 108 16 108/66 90 97.6 Lab Test 08/15/25 23:01 Range/Units White Blood Count 5.4 4.4-10.8 10^3/uL Red Blood Count 4.12 4.0-5.20 10^6/uL Hemoglobin 13.1 12.2-16.2 g/dL Hematocrit 40.6 36.0-46.0 % Mean Corpuscular Volume 98.5 80.0-100.0 fL Mean Corpuscular Hemoglobin 31.7 28.0-32.0 pg Mean Corpuscular Hemoglobin Concent 32.2 32.0-36.0 g/dL Red Cell Distribution Width 17.3 H 11.8-14.3 % Platelet Count 130 L 140-450 10^3/uL Mean Platelet Volume 8.9 6.9-10.8 fL Neutrophils (%) (Auto) 59.7 37.0-80.0 % Lymphocytes (%) (Auto) 27.8 10.0-50.0 % Monocytes (%) (Auto) 10.3 0.0-12.0 % Eosinophils (%) (Auto) 1.7 0.0-7.0 % Basophils (%) (Auto) 0.5 0.0-2.0 % Neutrophils # (Auto) 3.2 1.6-8.6 10 ^3/uL Lymphocytes # (Auto) 1.5 0.4-5.4 10 ^3/uL Monocytes # (Auto) 0.6 0-1.3 10 ^3/uL Eosinophils # (Auto) 0.1 0-0.8 10 ^3/uL Basophils # (Auto) 0 0-0.2 10 ^3/uL Nucleated Red Blood Cells 0.0 % Sodium Level 142 136-145 mmol/L Potassium Level 4.6 3.5-5.1 mmol/L Chloride Level 104 98-107 mmol/L Carbon Dioxide Level 37 H 20-31 mmol/L Anion Gap 1 L 5-15 Blood Urea Nitrogen 11 9-23 mg/dL Creatinine 0.60 0.550-1.02 mg/dL Glomerular Filtration Rate Calc 105 >90 mL/min BUN/Creatinine Ratio 18.3 10.0-20.0 Serum Glucose 97 74-106 mg/dL Calcium Level 8.8 8.7-10.4 mg/dL Current Medications Medications (Trade) Dose Ordered Sig/Elaine Route Start Time Stop Time Status Last Admin Albuterol (Ventolin Medneb) 5 mg ONCE ONCE NEB 08/15/25 23:00 08/15/25 23:01 DC 08/15/25 23:03 Ipratropium [place] (Atrovent Medneb) 0.5 mg ONCE ONCE NEB 08/15/25 23:00 08/15/25 23:01 DC 08/15/25 23:03 Time of 1ST Reevaluation: 23:15 Reevaluation 1ST: Unchanged Patient Education/Counseling: Other (Patient is A&O x3 at baseline) Family Education/Counseling: No Family Present SEPSIS Sepsis Screen Vital Signs Date Time Temp Pulse Resp B/P (MAP) Pulse Ox O2 Delivery O2 Flow Rate FiO2 08/16/25 00:02 16 96 Nasal Cannula* 2 28 08/15/25 23:04 16 97 Nasal Cannula* 2 28 08/15/25 22:40 97.6 108 16 108/66 90 97.6 Laboratory Tests Test 08/15/25 23:01 White Blood Count 5.4 10^3/uL (4.4-10.8) Medications Medications Dose Ordered Sig/Elaine Route Start Time Stop Time Status Last Admin Dose Admin Albuterol 5 mg ONCE ONCE NEB 08/15/25 23:00 08/15/25 23:01 DC 08/15/25 23:03 Ipratropium [place] 0.5 mg ONCE ONCE NEB 08/15/25 23:00 08/15/25 23:01 DC 08/15/25 23:03 Departure 1 Departure Time of Disposition: 01:00 Impression: Primary Impression: Abdominal pain Additional Impressions: COPD (chronic obstructive pulmonary disease) Schizophrenia Disposition: HOME / SELF CARE / HOMELESS Condition: Stable Discharged With: Self Critical Care Note Critical Care Time?: No Stability Stability form required: No Heart Score Heart Score: Heart Score Response (Comments) Value History N/A 0 EKG N/A 0 Age N/A 0 Risk Factors N/A 0 Troponin N/A 0 Total 0 I personally scribed for MANDY OJEDA MD ([email or web address]) on 08/15/25 at 22:54. Electronically submitted by Devin Huerta [email or web address]). MANDY OJEDA MD Aug 15, 2025 22:54
[2025-08-15] MEDS: ALBUTEROL SULF 2.5 MG/0.5ML(0.5%) NEB SOLN NEB ONE (23:03)
[2025-08-15] MEDS: IPRATROPIUM BROM 0.5 MG/2.5ML INH SOL NEB ONE (23:03)
[2025-08-15] MEDS: predniSONE 20 MG TAB PO ONE (23:10)
[2025-08-15 23:18] LABS: Hematocrit 40.6 % (36.0-46.0); Hemoglobin 13.1 g/dL (12.2-16.2); Mean Corpuscular Hemoglobin 31.7 pg (28.0-32.0); Mean Corpuscular Volume 98.5 fL (80.0-100.0); Nucleated Red Blood Cells % 0.0 %
[2025-08-15 23:27] LABS: Chloride 104 mmol/L (98-107); Potassium 4.6 mmol/L (3.5-5.1); Sodium 142 mmol/L (136-145)
[2025-08-15 23:28] LABS: Anion Gap 1 (5-15)
[2025-08-15 23:29] LABS: Calcium 8.8 mg/dL (8.7-10.4)
[2025-08-15 23:34] LABS: BUN/Creatinine Ratio 18.3 (10.0-20.0); Blood Urea Nitrogen 11 mg/dL (9-23); Glucose 97 mg/dL (74-106)
[2025-08-15 23:36] LABS: Carbon Dioxide 37 mmol/L (20-31)
[2025-08-16 00:02] VITALS: RESP 16; O2SAT 96
== END 2025-08-16 02:34 | disposition home or self-care (01) ==
LOC: EDBD 22:38 → ER 22:38
DX: R10.31 Right lower quadrant pain (principal); J44.9 Chronic obstructive pulmonary disease, unspecified; F20.9 Schizophrenia, unspecified; I10 Essential (primary) hypertension; F17.210 Nicotine dependence, cigarettes, uncomplicated; Z88.1 Allergy status to other antibiotic agents; Z79.51 Long term (current) use of inhaled steroids; Z79.52 Long term (current) use of systemic steroids; Z79.899 Other long term (current) drug therapy
CPT/HCPCS: 36415; 80048; 85025; 94640; 99283; J7512

== ENCOUNTER 2025-08-17 00:33 | Emergency (ER) | payer OTHER ==
[~2025-08-17] VITALS: Ht 165.1 cm; Wt 50.0 kg
--- NOTE | 2025-08-17 00:50 | ED.PDOC ---
History of Present Illness HPI Comments 55 y/o F is brought in by ambulance from [facility] for chief complaint of nonradiating, RLQ abdominal pain with diarrhea for the past x3 days. Denies any nausea, vomiting, or further acute symptoms. Chief Complaint: Abdominal Pain Time Seen by MD: 00:40 Primary Care Provider: UNKNOWN Reviewed Notes: Nurses Notes, Facility Engineer Notes, Medications, Allergies Allergies: Coded Allergies: Azithromycin (Verified Allergy, Severe, 08/02/25) Lactose (Verified Allergy, Severe, 11/15/24) Erythromycin (Verified Allergy, Intermediate, 07/19/25) Home Meds Active Scripts Gabapentin (Once-Daily) (Gabapentin) 300 Mg Tab, 300 MG PO Q6HP PRN, #60 TAB Prov:MANDY OJEDA MD 08/15/25 Ondansetron Odt 4MG Tab (ZOFRAN PO) 4 Mg Tb, 4 MG PO Q6HP PRN, #30 TAB ODT TAB-DISSOLVE IN MOUTH, THEN SWALLOW Prov:MANDY OJEDA MD 08/15/25 Azithromycin (Azithromycin) 500 Mg Tab, 1 TAB PO DAILY for 3 Days, #3 TAB Prov:MANDY OJEDA MD 08/14/25 Prednisone (Prednisone) 20 Mg Tab, 20 MG PO BID for 5 Days, #10 TAB Prov:MANDY OJEDA MD 08/14/25 Albuterol Sulfate (Albuterol Sulfate Hfa) 108 Mcg/Act Aer, 108 MCG IN Q6HP PRN, #1 AER Prov:MANDY OJEDA MD 08/14/25 Prednisone (Prednisone) 20 Mg Tab, 20 MG PO BID for 5 Days, #10 TAB Prov:MANDY OJEDA MD 08/12/25 Azithromycin (Azithromycin) 500 Mg Tab, 1 TAB PO DAILY for 3 Days, #3 TAB Prov:MANDY OJEDA MD 08/12/25 Albuterol Sulfate (Albuterol Sulfate Hfa) 108 Mcg/Act Aer, 108 MCG IN Q6HP PRN, #1 AER 3 Refills Prov:MANDY OJEDA MD 08/12/25 Acetaminophen (Acetaminophen) 500 Mg Tab, 500 MG PO Q4HPRN, #30 TAB 0 Refills Prov:KENTON PARTIDA 08/12/25 Sulfamethoxazole W/Trimethopri (Bactrim Ds Tablet) 1 Tab Tb, 1 TAB PO BID for 7 Days, #14 TAB 0 Refills Prov:KENTON PARTIDA 08/12/25 Benzonatate (Benzonatate) 100 Mg Cap, 1 CAP PO TID for 30 Days, #30 CAP Prov:ADAM SU DO 08/10/25 Quetiapine Fumerate (QUETIAPINE FUMARATE) 100 Mg Tab, 100 MG PO BID for 30 Days, #60 TAB 5 Refills Prov:ADAM SU DO 08/10/25 Ipratropium-Albuterol (COMBIVENT RESPIMAT) Respimat Aer, 1 PUFF IN Q4HP PRN, #1 AER Prov:KEYUR BEAVER MD 08/08/25 Prednisone (Prednisone) 20 Mg Tab, 20 MG PO DAILY for 5 Days, #5 MG Prov:KEYUR BEAVER MD 08/08/25 Albuterol Sulfate (Ventolin) 2 Mg/5 Ml Sr, 5 ML PO TID PRN for 30 Days, #150 ML 3 Refills Prov:ADAM SU 07/21/25 Loperamide Hcl (Imodium) 2 Mg Cp, 2 MG PO Q6HPRN PRN for 30 Days, #10 CAP Prov:JOYA PLATT FUR JOINER 06/22/25 Divalproex Sodium (Divalproex Sodium) 500 Mg Tab, 500 MG PO BID for 30 Days, #60 MG Prov:JOYA PLATT FUR JOINER 05/19/25 Haloperidol (Haldol) 5 Mg Tb, 3 MG PO BID for 30 Days, #60 MG Prov:JOYA PLATT FUR JOINER 05/19/25 Benztropine Mesylate (Benztropine Mesylate) 1 Mg Tab, 1 MG PO BID for 30 Days, #60 MG Prov:JOYA PLATT FUR JOINER 05/19/25 Trazodone Hcl (Trazodone Hcl) 50 Mg Tab, 75 MG PO HS for 30 Days, #45 MG Prov:JOYA PLATT FUR JOINER 05/19/25 Reported Medications Haloperidol (Haldol) 5 Mg Tb, 5 MG PO BID, MG 07/19/25 Ondansetron Odt 4MG Tab (ZOFRAN PO) 4 Mg Tb, 4 MG PO, TAB ODT TAB-DISSOLVE IN MOUTH, THEN SWALLOW 07/16/25 Naproxen (NAPROSYN TABLET) 500 Mg Tb, 1 TAB PO BID, #60 TAB 1 Refill 07/16/25 Acetaminophen (Tylenol Extra Strength) 500 Mg Tab, 500 MG PO, TAB 07/16/25 Fluticasone-Salmeterol (Advair Diskus 250/50) 1 Puff Ih, 1 PUFF INH BID, #3 INHALER 3 Refills 07/16/25 Dextromethorphan-Guaifenesin (Tussin Dm Cough & Chest C 20-200 mg/20Ml) 1 Liq Liq, 1 LIQ PO, LIQ 07/16/25 Quetiapine Fumerate (Seroquel) 50 Mg Tab, 1 TAB PO QPM, #30 TAB 2 Refills 07/16/25 Pantoprazole Sodium (PANTOPRAZOLE SODIUM) 40 Mg Inj, 40 MG PO DAILY, INJ 07/16/25 Information Source: Patient, Emergency Med Personnel Mode of Arrival: EMS Severity: Moderate Timing: Days Duration: Since onset Prehospital treatment: 12 Lead EKG, Bank Worker, Oxygen Past Medical History PAST MEDICAL HISTORY: Asthma, COPD, HTN, Schizophrenia, UTI'S Surgical History: Denies all surgeries FAITH HEALER History: Denies all FAITH HEALER Hx Family History Family History: Reviewed,noncontributory to illness, Unknown Social History Smoker: Cigarettes, Less Than 1 Pack/Day Alcohol: Denies ETOH Use Drugs: Denies Drug Use Lives In: Assisted Care All Other Systems: Reviewed and Negative (Comprehensive review of systems are negative unless stated in HPI) Physical Exam General Appearance: No Apparent Distress, Normal HEENT: Normal ENT Inspection, Pharynx Normal, TMs Normal Neck: Full Range of Motion, Non-Tender, Normal, Normal Inspection Respiratory: Chest Non-Tender, Lungs Clear, No Accessory Muscle Use, No Respiratory Distress, Normal Breath Sounds Cardiovascular: No Edema, No JVD, No Murmur, No Gallop, Normal Peripheral Pulses, Regular Rate/Rhythm Breast Exam: Deferred Gastrointestinal: No Organomegaly, Non Tender, No Pulsatile Mass, Normal Bowel Sounds, Soft Genitalia: Deferred Pelvic: Deferred Rectal: Deferred Extremities: No calf tenderness, Normal capillary refill, Normal inspection, Normal range of motion, Non-tender, No pedal edema Musculoskeletal : Apperance: Normal Neurologic: Alert, plate glass grinder II-XII 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 Was a procedure done?: No Differential Dx Considerations may include: Gastritis, gastroenteritis, GERD, appendicitis, diverticulitis, viral syndrome, UTI, among others X-Ray, Labs, Meds, VS Vital Signs Date Time Temp Pulse Resp B/P (MAP) Pulse Ox O2 Delivery O2 Flow Rate FiO2 08/17/25 01:37 16 96 Nasal Cannula* 4 36 08/17/25 00:39 97.8 92 18 117/74 100 97.8 Lab Test 08/17/25 01:21 Range/Units White Blood Count 4.2 L 4.4-10.8 10^3/uL Red Blood Count 4.19 4.0-5.20 10^6/uL Hemoglobin 13.3 12.2-16.2 g/dL Hematocrit 41.1 36.0-46.0 % Mean Corpuscular Volume 98.0 80.0-100.0 fL Mean Corpuscular Hemoglobin 31.6 28.0-32.0 pg Mean Corpuscular Hemoglobin Concent 32.3 32.0-36.0 g/dL Red Cell Distribution Width 16.6 H 11.8-14.3 % Platelet Count 121 L 140-450 10^3/uL Mean Platelet Volume 9.0 6.9-10.8 fL Neutrophils (%) (Auto) 51.7 37.0-80.0 % Lymphocytes (%) (Auto) 36.2 10.0-50.0 % Monocytes (%) (Auto) 9.8 0.0-12.0 % Eosinophils (%) (Auto) 1.7 0.0-7.0 % Basophils (%) (Auto) 0.6 0.0-2.0 % Neutrophils # (Auto) 2.2 1.6-8.6 10 ^3/uL Lymphocytes # (Auto) 1.5 0.4-5.4 10 ^3/uL Monocytes # (Auto) 0.4 0-1.3 10 ^3/uL Eosinophils # (Auto) 0.1 0-0.8 10 ^3/uL Basophils # (Auto) 0 0-0.2 10 ^3/uL Nucleated Red Blood Cells 0.2 % Sodium Level 145 136-145 mmol/L Potassium Level 4.6 3.5-5.1 mmol/L Chloride Level 105 98-107 mmol/L Carbon Dioxide Level 37 H 20-31 mmol/L Anion Gap 3 L 5-15 Blood Urea Nitrogen 9 9-23 mg/dL Creatinine 0.62 0.550-1.02 mg/dL Glomerular Filtration Rate Calc 104 >90 mL/min BUN/Creatinine Ratio 14.5 10.0-20.0 Serum Glucose 84 74-106 mg/dL Calcium Level 8.7 8.7-10.4 mg/dL Current Medications Medications (Trade) Dose Ordered Sig/Elaine Route Start Time Stop Time Status Last Admin Albuterol (Ventolin Medneb) 2.5 mg ONCE ONCE NEB 08/17/25 01:15 08/17/25 01:16 DC 08/17/25 01:37 X-Ray, Labs, Meds, VS Comment Imaging was reviewed by this provider, there is no obvious pathological or acute disease process. Pending radiology review Labs were reviewed by this provider, no abnormalities Vital signs reviewed by this provider, clinically stable Time of 1ST Reevaluation: 01:20 Reevaluation 1ST: Unchanged Patient Education/Counseling: Diagnosis, Treatment, Need For Follow Up (Follow up with PCP next available appointment. Return to the emergency department if symptoms worsen.) Family Education/Counseling: No Family Present SEPSIS Sepsis Screen Date sepsis recognized/suspect: Aug 17, 2025 Time Sepsis recognized/suspect: 004 Recent Procedure: No On Antibiotic Therapy: No Respiratory Rate >20: No Heart Rate >90: Yes Temp<36 C (96.8 F) or >38.3 C: No SBP <90 or MAP <65 mmHG: No New Acute Mental Status Change: No Is the patient on CPAP, BIPAP,: No Vital Signs Date Time Temp Pulse Resp B/P (MAP) Pulse Ox O2 Delivery O2 Flow Rate FiO2 08/17/25 01:37 16 96 Nasal Cannula* 4 36 08/17/25 00:39 97.8 92 18 117/74 100 97.8 Laboratory Tests Test 08/17/25 01:21 White Blood Count 4.2 10^3/uL (4.4-10.8) L Medications Medications Dose Ordered Sig/Elaine Route Start Time Stop Time Status Last Admin Dose Admin Albuterol 2.5 mg ONCE ONCE NEB 08/17/25 01:15 08/17/25 01:16 DC 08/17/25 01:37 Departure 1 Departure Time of Disposition: 02:03 Impression: Primary Impression: Abdominal pain Qualified Codes: R10.84 - Generalized abdominal pain Disposition: 01 HOME / SELF CARE / HOMELESS Condition: Stable Discharged With: Self Critical Care Note Critical Care Time?: No Stability Stability form required: No Heart Score Heart Score: Heart Score Response (Comments) Value History N/A 0 EKG N/A 0 Age N/A 0 Risk Factors N/A 0 Troponin N/A 0 Total 0 I personally scribed for MADHAV GLASS ([email or web address]) on 08/17/25 at 00:50. Electronically submitted by Devin Huerta [email or web address]). MADHAV GLASS Aug 17, 2025 00:50
[2025-08-17] MEDS: ALBUTEROL SULF 2.5 MG/0.5ML(0.5%) NEB SOLN NEB ONE (01:37)
[2025-08-17 01:44] LABS: Hematocrit 41.1 % (36.0-46.0); Hemoglobin 13.3 g/dL (12.2-16.2); Mean Corpuscular Hemoglobin 31.6 pg (28.0-32.0); Mean Corpuscular Volume 98.0 fL (80.0-100.0); Nucleated Red Blood Cells % 0.2 %
[2025-08-17 01:46] LABS: Chloride 105 mmol/L (98-107); Potassium 4.6 mmol/L (3.5-5.1); Sodium 145 mmol/L (136-145)
[2025-08-17 01:47] LABS: Anion Gap 3 (5-15)
[2025-08-17 01:52] LABS: BUN/Creatinine Ratio 14.5 (10.0-20.0); Blood Urea Nitrogen 9 mg/dL (9-23); Glucose 84 mg/dL (74-106)
[2025-08-17 01:54] LABS: Calcium 8.7 mg/dL (8.7-10.4); Carbon Dioxide 37 mmol/L (20-31)
[2025-08-17 02:00] VITALS: RESP 16; O2SAT 92
[2025-08-17 02:22] VITALS: BP 122/85; PULSE 82; RESP 16; TEMP 97.7; O2SAT 95
== END 2025-08-17 03:05 | disposition home or self-care (01) ==
LOC: ER 00:33 → EDBD 00:33 → ER 03:05
DX: R10.31 Right lower quadrant pain (principal); J44.89 Other specified chronic obstructive pulmonary disease; I10 Essential (primary) hypertension; F20.9 Schizophrenia, unspecified; F17.210 Nicotine dependence, cigarettes, uncomplicated; Z79.899 Other long term (current) drug therapy; Z88.1 Allergy status to other antibiotic agents; Z87.440 Personal history of urinary (tract) infections; Z79.52 Long term (current) use of systemic steroids; Z79.51 Long term (current) use of inhaled steroids
CPT/HCPCS: 36415; 80048; 85025; 94640

== ENCOUNTER 2025-08-19 23:00 | Emergency (ER) | payer OTHER ==
[~2025-08-19] VITALS: Ht 165.1 cm; Wt 50.0 kg
[2025-08-19] MEDS: ALBUTEROL SULF 2.5 MG/0.5ML(0.5%) NEB SOLN NEB ONE (23:59)
--- NOTE | 2025-08-20 01:55 | ED.PDOC ---
SOB-HPI HPI Comments 55-year-old female brought in by EMS. Patient resides [facility]. Per EMS patient pulled fire alarm, when cook helper meat's and fire department arrived patient states she was short of breath. Patient frequent emergency department with similar/same complaints. Upon questioning, patient states she was short of breath and want a breathing treatment, she is otherwise slurring her words and hard to understand. Patient has a no other complaints today. Chief Complaint: Shortness of Breath Time Seen by MD: 23:08 Primary Care Provider: UNKNOWN Reviewed notes: Nurses Notes Information Source: Patient Mode of Arrival: EMS Severity: Mild Past Medical History PAST MEDICAL HISTORY: Asthma, COPD, HTN, Schizophrenia, UTI'S Surgical History: Denies all surgeries TELECOMMUNICATIONS SPECIALIST History: Denies all TELECOMMUNICATIONS SPECIALIST Hx Family History Family History: Reviewed,noncontributory to illness, Unknown Social History Smoker: Cigarettes, Less Than 1 Pack/Day Alcohol: Denies ETOH Use Drugs: Denies Drug Use Lives In: Assisted Care Constitutional: denies: chills, diaphoresis, fatigue, fever, malaise, sweats, weakness, others EENTM: denies: blurred vision, double vision, ear bleeding, ear discharge, ear drainage, ear pain, ear ringing, eye pain, eye redness, hearing loss, mouth pain, mouth swelling, nasal discharge, nose bleeding, nose congestion, nose pain, photophobia, tearing, throat pain, throat swelling, voice changes, others Respiratory: denies: cough, hemoptysis, orthopnea, SOB at rest, shortness of breath, SOB with excertion, stridor, wheezing, others Cardiovascular: denies: chest pain, dizzy spells, diaphoresis, Dyspnea on exertion, edema, irregular heart beat, left arm pain, lightheadedness, palpitations, PND, syncope, others Gastrointestinal: denies: abdomen distended, abdominal pain, blood streaked bowels, constipated, diarrhea, dysphagia, difficulty swallowing, hematemesis, melena, nausea, poor appetite, poor fluid intake, rectal bleeding, rectal pain, vomiting, others Genitourinary: denies: abnormal vagina bleeding, burning, dyspareunia, dysuria, flank pain, frequency, hematuria, incontinence, pain, , vagina dischar ge, urgency, others Neurological: denies: dizziness, fainting, headache, left sided numbness, left sided weakness, numbness, paresthesia, pre-existing deficit, right sided numbness, right sided weakness, seizure, speech problems, tingling, tremors, weakness, others Musculoskeletal: denies: back pain, gout, joint pain, joint swelling, muscle pain, muscle stiffness, neck pain, others Integumetry: denies: bruises, change in color, change in hair/nails, dryness, laceration, lesions, lumps, rash, wounds, others Allergic/Immunocompromised: denies: Difficulty Healing, Frequent Infections, Hives, Itching, others Hematologic/Lymphatic: denies: anemia, blood clots, easy bleeding, easy bruising, swollen glands, others Physical Exam General Appearance: No Apparent Distress, Normal HEENT: Normal ENT Inspection, Pharynx Normal, TMs Normal Neck: Full Range of Motion, Non-Tender, Normal, Normal Inspection Respiratory: Chest Non-Tender, Lungs Clear, No Accessory Muscle Use, No Respiratory Distress, Normal Breath Sounds Cardiovascular: No Edema, No JVD, No Murmur, No Gallop, Normal Peripheral Pulses, Regular Rate/Rhythm Breast Exam: Deferred Gastrointestinal: No Organomegaly, Non Tender, No Pulsatile Mass, Normal Bowel Sounds, Soft Genitalia: Deferred Pelvic: Deferred Rectal: Deferred Extremities: No calf tenderness, Normal capillary refill, Normal inspection, Normal range of motion, Non-tender, No pedal edema Musculoskeletal : Apperance: Normal Neurologic: Alert, medicine and health service 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 Was a procedure done?: No Differential Dx Differential Diagnosis: CHF, COPD, Pneumonia X-Ray, Labs, Meds, VS Vital Signs Date Time Temp Pulse Resp B/P (MAP) Pulse Ox O2 Delivery O2 Flow Rate FiO2 08/20/25 00:00 22 91 Nasal Cannula* 3 32 08/19/25 23:00 98.9 93 18 103/67 98 98.9 Current Medications Medications (Trade) Dose Ordered Sig/Elaine Route Start Time Stop Time Status Last Admin Albuterol (Ventolin Medneb) 2.5 mg ONCE ONCE NEB 08/19/25 23:30 08/19/25 23:31 DC 08/19/25 23:59 Ipratropium Lindsay (Atrovent Medneb) 0.5 mg ONCE ONCE NEB 08/19/25 23:30 08/19/25 23:31 DC 08/20/25 00:00 X-Ray, Labs, Meds, VS Comment Patient no answer for x-ray Patient discharged home, hemodynamically stable Time of 1ST Reevaluation: 01:54 Reevaluation 1ST: Unchanged Patient Education/Counseling: Diagnosis, Treatment, Need For Follow Up (Follow up with PCP in next available appointment.) Family Education/Counseling: Diagnosis SEPSIS Sepsis Screen Date sepsis recognized/suspect: Aug 19, 2025 Time Sepsis recognized/suspect: 2299 Recent Procedure: No On Antibiotic Therapy: No Respiratory Rate >20: No Heart Rate >90: No Temp<36 C (96.8 F) or >38.3 C: No SBP <90 or MAP <65 mmHG: No New Acute Mental Status Change: No Is the patient on CPAP, BIPAP,: No Physician Orders Chest Xray 1 View (08/19/25 23:17) Vital Signs Date Time Temp Pulse Resp B/P (MAP) Pulse Ox O2 Delivery O2 Flow Rate FiO2 08/20/25 00:00 22 91 Nasal Cannula* 3 32 08/19/25 23:00 98.9 93 18 103/67 98 98.9 Medications Medications Dose Ordered Sig/Elaine Route Start Time Stop Time Status Last Admin Dose Admin Albuterol 2.5 mg ONCE ONCE NEB 08/19/25 23:30 08/19/25 23:31 DC 08/19/25 23:59 Ipratropium Lindsay 0.5 mg ONCE ONCE NEB 08/19/25 23:30 08/19/25 23:31 DC 08/20/25 00:00 Departure 1 Departure Time of Disposition: 01:54 Impression: Primary Impression: COPD exacerbation Disposition: 01 HOME / SELF CARE / HOMELESS Condition: Stable Discharged With: Self Critical Care Note Critical Care Time?: No Stability Stability form required: No Heart Score Heart Score: Heart Score Response (Comments) Value History N/A 0 EKG N/A 0 Age N/A 0 Risk Factors N/A 0 Troponin N/A 0 Total 0 MADHAV GLASS Aug 20, 2025 01:55
[2025-08-20 02:15] VITALS: BP 108/72; PULSE 71; TEMP 98.4
--- NOTE | 2025-08-20 03:27 | DVH ---
CHEST RADIOGRAPH Indication: sob Technique: Single frontal view of the chest was obtained COMPARISON: XY CHEST XRAY 1 VIEW on DOS: 08/14/25, XY CHEST PORTABLE on DOS: 08/12/25, XY CHEST PORTABLE on DOS: 08/08/25, XY CHEST PORTABLE on DOS: 07/25/25, XY CHEST PORTABLE on DOS: 07/24/25 FINDINGS: Lines and Tubes: None Lungs: Chronic appearing bilateral interstitial pulmonary markings. No evidence of focal consolidation. Pleura: No effusion. No pneumothorax. Cardiomediastinal contours: Unremarkable Bones: Unremarkable IMPRESSION: 1. Chronic appearing bilateral interstitial pulmonary markings. 2. No evidence of focal consolidation.
[2025-08-20] MEDS: ALBUTEROL SULF 2.5 MG/0.5ML(0.5%) NEB SOLN NEB ONE (04:18)
[2025-08-20] MEDS: IPRATROPIUM BROM 0.5 MG/2.5ML INH SOL NEB ONE ×2 (04:18)
[2025-08-20 04:19] VITALS: RESP 20; O2SAT 95
== END 2025-08-20 07:21 | disposition home or self-care (01) ==
LOC: EDBD 23:00 → ER 23:00
DX: J44.1 Chronic obstructive pulmonary disease with (acute) exacerbation (principal); F17.210 Nicotine dependence, cigarettes, uncomplicated; I10 Essential (primary) hypertension; F20.9 Schizophrenia, unspecified; Z87.440 Personal history of urinary (tract) infections
CPT/HCPCS: 71045; 94640

== ENCOUNTER 2025-08-22 11:31 | Emergency (ER) | payer OTHER ==
[~2025-08-22] VITALS: Ht 160 cm; Wt 55.0 kg
--- NOTE | 2025-08-22 12:17 | ED.PDOC ---
SOB-HPI HPI Comments 55 y/o F,BIBA, with PMHx of asthma, schizophrenia, COPD, and HTN presents to the ED for CC of shortness of breath. EMS reports, patient is coming from fire station where patient stated to have left her nursing facility d/t symptoms of SOB onset, today (08/22/25). Per EMS, patient is on continuous oxygen at 3-4Lpm however, regularly discontinues usage. Upon arrival to the ED, patient was placed on 3L N.[place] and is stating at 95%. Patient denies chest pain, cough, fever, chills, or palpitations. Chief Complaint: Shortness of Breath Time Seen by MD: 12:20 Primary Care Provider: UNKNOWN Reviewed notes: Nurses Notes, Medications, Allergies Information Source: Patient Mode of Arrival: EMS Severity: Moderate Timing: Days Duration: Since onset PE Risk Factors: None History of: Asthma, COPD Prehospital treatment: Oxygen Modifying Factors: Nothing Associated Signs and Symptoms: None Past Medical History PAST MEDICAL HISTORY: Asthma, COPD, HTN, Schizophrenia, UTI'S Surgical History: Denies all surgeries RESIDENTIAL SOLAR CONSULTANT History: Denies all RESIDENTIAL SOLAR CONSULTANT Hx Family History Family History: Reviewed,noncontributory to illness, Unknown Social History Smoker: Cigarettes, Less Than 1 Pack/Day Alcohol: Denies ETOH Use Drugs: Denies Drug Use Lives In: Assisted Care Constitutional: denies: chills, diaphoresis, fatigue, fever, malaise, sweats, weakness, others EENTM: denies: blurred vision, double vision, ear bleeding, ear discharge, ear drainage, ear pain, ear ringing, eye pain, eye redness, hearing loss, mouth pain, mouth swelling, nasal discharge, nose bleeding, nose congestion, nose pain, photophobia, tearing, throat pain, throat swelling, voice changes, others Respiratory: reports: shortness of breath; denies: cough, hemoptysis, orthopnea, SOB at rest, SOB with excertion, stridor, wheezing, others Cardiovascular: denies: chest pain, dizzy spells, diaphoresis, Dyspnea on exertion, edema, irregular heart beat, left arm pain, lightheadedness, palpitations, PND, syncope, others Gastrointestinal: denies: abdomen distended, abdominal pain, blood streaked bowels, constipated, diarrhea, dysphagia, difficulty swallowing, hematemesis, melena, nausea, poor appetite, poor fluid intake, rectal bleeding, rectal pain, vomiting, others Genitourinary: denies: abnormal vagina bleeding, burning, dyspareunia, dysuria, flank pain, frequency, hematuria, incontinence, pain, , vagina discharge, urgency, others Neurological: denies: dizziness, fainting, headache, left sided numbness, left sided weakness, numbness, paresthesia, pre-existing deficit, right sided numbness, right sided weakness, seizure, speech problems, tingling, tremors, weakness, others Musculoskeletal: denies: back pain, gout, joint pain, joint swelling, muscle pain, muscle stiffness, neck pain, others Integumetry: denies: bruises, change in color, change in hair/nails, dryness, laceration, lesions, lumps, rash, wounds, others Allergic/Immunocompromised: denies: Difficulty Healing, Frequent Infections, Hives, Itching, others Hematologic/Lymphatic: denies: anemia, blood clots, easy bleeding, easy bruising, swollen glands, others Endocrine: denies: excessive hunger, excessive sweating, excessive thirst, excessive urination, flushing, intolerance to cold, intolerance to heat, unexplained weight gain, unexplained weight loss, others Psychiatric: denies: anxiety, bipolar disorder, depression, hopeless, panic disorder, schizophrenia, sleepless, suicidal, others All Other Systems: Reviewed and Negative Physical Exam General Appearance: No Apparent Distress, Normal HEENT: Normal ENT Inspection, Pharynx Normal Neck: Full Range of Motion, Non-Tender, Normal, Normal Inspection Respiratory: Chest Non-Tender, Inspiration, Lungs Clear, No Accessory Muscle Use, No Respiratory Distress, Normal Breath Sounds, Other (coarse breath sounds) Cardiovascular: No Edema, No Murmur, No Gallop, Normal Peripheral Pulses, Regular Rate/Rhythm Breast Exam: Deferred Gastrointestinal: No Organomegaly, Non Tender, No Pulsatile Mass, Normal Bowel Sounds, Soft Genitalia: Deferred Pelvic: Deferred Rectal: Deferred Extremities: No calf tenderness, Normal capillary refill, Normal inspection, Normal range of motion, Non-tender, No pedal edema Musculoskeletal : Apperance: Normal Neurologic: Alert, radiologic technologist II-XII 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 Was a procedure done?: No Differential Dx Differential Diagnosis: Asthma, COPD, Pneumonia, Pharyngitis, URI X-Ray, Labs, Meds, VS Vital Signs Date Time Temp Pulse Resp B/P (MAP) Pulse Ox O2 Delivery O2 Flow Rate FiO2 08/22/25 13:02 99.6 96 18 118/72 (87) 98 99.6 08/22/25 11:44 99.3 105 20 100/67 95 99.3 Time of 1ST Reevaluation: 12:50 Reevaluation 1ST: Unchanged Patient Education/Counseling: Diagnosis, Treatment Family Education/Counseling: No Family Present SEPSIS Sepsis Screen Date sepsis recognized/suspect: Aug 22, 2025 Time Sepsis recognized/suspect: 1149 Recent Procedure: No On Antibiotic Therapy: No Respiratory Rate >20: No Heart Rate >90: Yes Temp<36 C (96.8 F) or >38.3 C: No SBP <90 or MAP <65 mmHG: No New Acute Mental Status Change: No Is the patient on CPAP, BIPAP,: No Physician Orders Chest Portable (08/22/25 13:00) Vital Signs Date Time Temp Pulse Resp B/P (MAP) Pulse Ox O2 Delivery O2 Flow Rate FiO2 08/22/25 13:02 99.6 96 18 118/72 (87) 98 99.6 08/22/25 11:44 99.3 105 20 100/67 95 99.3 Departure 1 Departure Time of Disposition: 14:09 (Patient is well known to the ER. Patient's chest x-ray is benign. We will discharge patient home) Impression: Primary Impression: COPD exacerbation Disposition: 01 HOME / SELF CARE / HOMELESS Condition: Stable Additional Instructions: Your workup today was benign. Please continue to take your regular medications follow up with the regular doctors Discharged With: Self Critical Care Note Critical Care Time?: No Stability Stability form required: No Heart Score Heart Score: Heart Score Response (Comments) Value History N/A 0 EKG N/A 0 Age N/A 0 Risk Factors N/A 0 Troponin N/A 0 Total 0 I personally scribed for AISHWARYA HEREDIA MD ([email or web address]) on 08/22/25 at 12:17. Electronically submitted by Muna Verdugo ([email or web address]). I personally scribed for AISHWARYA HEREDIA MD ([email or web address]) on 08/22/25 at 12:25. Electronically submitted by Muna Verdugo [email or web address]). AISHWARYA HEREDIA MD Aug 22, 2025 12:17
--- NOTE | 2025-08-22 13:43 | DVH ---
XY CHEST PORTABLE, HISTORY: sob COMPARISON: XY CHEST XRAY 1 VIEW on DOS: 08/20/25, XY CHEST XRAY 1 VIEW on DOS: 08/14/25, XY CHEST PORTABLE on DOS: 08/12/25 XY CHEST XRAY 1 VIEW on DOS: 08/20/25, XY CHEST XRAY 1 VIEW on DOS: 08/14/25, XY CHEST PORTABLE on DOS: 08/12/25 TECHNICAL DATA: 1 view of the chest was obtained. FINDINGS: Lines and tubes: None Cardiomediastinal silhouette: normal Pulmonary vasculature: normal Lung expansion: normal Lung airspace: Emphysematous changes of the lungs. Lung interstitium: normal Pleura: normal Pneumothorax: no Bones: Unremarkable Other: no IMPRESSION: No acute intrathoracic abnormality. Emphysematous changes of the lungs.
[2025-08-22 15:13] VITALS: BP 101/66; TEMP 98.3
[2025-08-22 15:14] VITALS: PULSE 103; RESP 20; O2SAT 98
== END 2025-08-22 15:32 | disposition home or self-care (01) ==
LOC: ER 11:31 → EDBD 11:31 → EDUNIT# 11:31 → ER 15:31
DX: J44.1 Chronic obstructive pulmonary disease with (acute) exacerbation (principal); I10 Essential (primary) hypertension; F17.210 Nicotine dependence, cigarettes, uncomplicated; Z87.440 Personal history of urinary (tract) infections; Z99.81 Dependence on supplemental oxygen
CPT/HCPCS: 71045

== ENCOUNTER 2025-08-27 11:47 | Emergency (ER) | payer OTHER ==
[~2025-08-27] VITALS: Ht 162.6 cm; Wt 50.0 kg
--- NOTE | 2025-08-27 14:17 | ED.PDOC ---
History of Present Illness HPI Comments 55 y/o F,BIBA, with PMHx of asthma, schizophrenia, COPD, and HTN presents to the ED via EMS for cc of chest pressure. Patient reports feeling stressed out and developed pressure across .Patient at this time states pain has subsided and is now only feeling stressed. no other associating symptoms. Chief Complaint: Shortness of Breath Time Seen by MD: 14:16 Primary Care Provider: UNKNOWN Reviewed Notes: Nurses Notes, Solar Electric/Photovoltaic Installer Notes, Medications, Allergies Allergies: Coded Allergies: Azithromycin (Verified Allergy, Severe, 08/02/25) Lactose (Verified Allergy, Severe, 11/15/24) Erythromycin (Verified Allergy, Intermediate, 07/19/25) Home Meds Active Scripts Gabapentin (Once-Daily) (Gabapentin) 300 Mg Tab, 300 MG PO Q6HP PRN, #60 TAB Prov:MANDY OJEDA MD 08/15/25 Ondansetron Odt 4MG Tab (ZOFRAN PO) 4 Mg Tb, 4 MG PO Q6HP PRN, #30 TAB ODT TAB-DISSOLVE IN MOUTH, THEN SWALLOW Prov:MANDY OJEDA MD 08/15/25 Azithromycin (Azithromycin) 500 Mg Tab, 1 TAB PO DAILY for 3 Days, #3 TAB Prov:MANDY OJEDA MD 08/14/25 Prednisone (Prednisone) 20 Mg Tab, 20 MG PO BID for 5 Days, #10 TAB Prov:MANDY OJEDA MD 08/14/25 Albuterol Sulfate (Albuterol Sulfate Hfa) 108 Mcg/Act Aer, 108 MCG IN Q6HP PRN, #1 AER Prov:MANDY OJEDA MD 08/14/25 Prednisone (Prednisone) 20 Mg Tab, 20 MG PO BID for 5 Days, #10 TAB Prov:MANDY OJEDA MD 08/12/25 Azithromycin (Azithromycin) 500 Mg Tab, 1 TAB PO DAILY for 3 Days, #3 TAB Prov:MANDY OJEDA MD 08/12/25 Albuterol Sulfate (Albuterol Sulfate Hfa) 108 Mcg/Act Aer, 108 MCG IN Q6HP PRN, #1 AER 3 Refills Prov:MANDY OJEDA MD 08/12/25 Acetaminophen (Acetaminophen) 500 Mg Tab, 500 MG PO Q4HPRN, #30 TAB 0 Refills Prov:KENTON PARTIDA 08/12/25 Sulfamethoxazole W/Trimethopri (Bactrim Ds Tablet) 1 Tab Tb, 1 TAB PO BID for 7 Days, #14 TAB 0 Refills Prov:KENTON PARTIDA 08/12/25 Benzonatate (Benzonatate) 100 Mg Cap, 1 CAP PO TID for 30 Days, #30 CAP Prov:ADAM SU DO 08/10/25 Quetiapine Fumerate (QUETIAPINE FUMARATE) 100 Mg Tab, 100 MG PO BID for 30 Days, #60 TAB 5 Refills Prov:ADAM SU 08/10/25 Ipratropium-Albuterol (COMBIVENT RESPIMAT) Respimat Aer, 1 PUFF IN Q4HP PRN, #1 AER Prov:KEYUR BEAVER MD 08/08/25 Prednisone (Prednisone) 20 Mg Tab, 20 MG PO DAILY for 5 Days, #5 MG Prov:KEYUR BEAVER MD 08/08/25 Albuterol Sulfate (Ventolin) 2 Mg/5 Ml Sr, 5 ML PO TID PRN for 30 Days, #150 ML 3 Refills Prov:ADAM SU 07/21/25 Loperamide Hcl (Imodium) 2 Mg Cp, 2 MG PO Q6HPRN PRN for 30 Days, #10 CAP Prov:JOYA PLATT LINEN SORTER 06/22/25 Divalproex Sodium (Divalproex Sodium) 500 Mg Tab, 500 MG PO BID for 30 Days, #60 MG Prov:JOYA PLATT LINEN SORTER 05/19/25 Haloperidol (Haldol) 5 Mg Tb, 3 MG PO BID for 30 Days, #60 MG Prov:JOYA PLATT LINEN SORTER 05/19/25 Benztropine Mesylate (Benztropine Mesylate) 1 Mg Tab, 1 MG PO BID for 30 Days, #60 MG Prov:JOYA PLATT LINEN SORTER 05/19/25 Trazodone Hcl (Trazodone Hcl) 50 Mg Tab, 75 MG PO HS for 30 Days, #45 MG Prov:JOYA PLATT LINEN SORTER 05/19/25 Reported Medications Haloperidol (Haldol) 5 Mg Tb, 5 MG PO BID, MG 07/19/25 Ondansetron Odt 4MG Tab (ZOFRAN PO) 4 Mg Tb, 4 MG PO, TAB ODT TAB-DISSOLVE IN MOUTH, THEN SWALLOW 07/16/25 Naproxen (NAPROSYN TABLET) 500 Mg Tb, 1 TAB PO BID, #60 TAB 1 Refill 07/16/25 Acetaminophen (Tylenol Extra Strength) 500 Mg Tab, 500 MG PO, TAB 07/16/25 Fluticasone-Salmeterol (Advair Diskus 250/50) 1 Puff Ih, 1 PUFF INH BID, #3 INHALER 3 Refills 07/16/25 Dextromethorphan-Guaifenesin (Tussin Dm Cough & Chest C 20-200 mg/20Ml) 1 Liq Liq, 1 LIQ PO, LIQ 07/16/25 Quetiapine Fumerate (Seroquel) 50 Mg Tab, 1 TAB PO QPM, #30 TAB 2 Refills 07/16/25 Pantoprazole Sodium (PANTOPRAZOLE SODIUM) 40 Mg Inj, 40 MG PO DAILY, INJ 07/16/25 Information Source: Patient Mode of Arrival: EMS Severity: Mild Timing: Hours Duration: Since onset Past Medical History PAST MEDICAL HISTORY: Asthma, COPD, HTN, Schizophrenia, UTI'S Surgical History: Denies all surgeries MISSILE FACILITIES REPAIRER History: Denies all MISSILE FACILITIES REPAIRER Hx Family History Family History: Reviewed,noncontributory to illness, Unknown Social History Smoker: Cigarettes, Less Than 1 Pack/Day Alcohol: Denies ETOH Use Drugs: Denies Drug Use Lives In: Assisted Care Constitutional: denies: chills, diaphoresis, fatigue, fever, malaise, sweats, weakness, others EENTM: denies: blurred vision, double vision, ear bleeding, ear discharge, ear drainage, ear pain, ear ringing, eye pain, eye redness, hearing loss, mouth pain, mouth swelling, nasal discharge, nose bleeding, nose congestion, nose pain, photophobia, tearing, throat pain, throat swelling, voice changes, others Respiratory: denies: cough, hemoptysis, orthopnea, SOB at rest, shortness of breath, SOB with excertion, stridor, wheezing, others Cardiovascular: reports: chest pain; denies: dizzy spells, diaphoresis, Dyspnea on exertion, edema, irregular heart beat, left arm pain, lightheadedness, palpitations, PND, syncope, others Gastrointestinal: denies: abdomen distended, abdominal pain, blood streaked bowels, constipated, diarrhea, dysphagia, difficulty swallowing, hematemesis, melena, nausea, poor appetite, poor fluid intake, rectal bleeding, rectal pain, vomiting, others Genitourinary: denies: abnormal vagina bleeding, burning, dyspareunia, dysuria, flank pain, frequency, hematuria, incontinence, pain, , vagina discharge, urgency, others Neurological: denies: dizziness, fainting, headache, left sided numbness, left sided weakness, numbness, paresthesia, pre-existing deficit, right sided numbness, right sided weakness, seizure, speech problems, tingling, tremors, weakness, others Musculoskeletal: denies: back pain, gout, joint pain, joint swelling, muscle pain, muscle stiffness, neck pain, others Integumetry: denies: bruises, change in color, change in hair/nails, dryness, laceration, lesions, lumps, rash, wounds, others Allergic/Immunocompromised: denies: Difficulty Healing, Frequent Infections, Hives, Itching, others Hematologic/Lymphatic: denies: anemia, blood clots, easy bleeding, easy bruising, swollen glands, others Endocrine: denies: excessive hunger, excessive sweating, excessive thirst, excessive urination, flushing, intolerance to cold, intolerance to heat, unexplained weight gain, unexplained weight loss, others Psychiatric: denies: anxiety, bipolar disorder, depression, hopeless, panic disorder, schizophrenia, sleepless, suicidal, others All Other Systems: Reviewed and Negative Physical Exam General Appearance: No Apparent Distress, Normal HEENT: Normal ENT Inspection, Pharynx Normal, TMs Normal Neck: Full Range of Motion, Non-Tender, Normal, Normal Inspection Respiratory: Chest Non-Tender, Lungs Clear, No Accessory Muscle Use, No Respiratory Distress, Normal Breath Sounds Cardiovascular: No Edema, No JVD, No Murmur, No Gallop, Normal Peripheral Pulses, Regular Rate/Rhythm Breast Exam: Deferred Gastrointestinal: No Organomegaly, Non Tender, No Pulsatile Mass, Normal Bowel Sounds, Soft Genitalia: Deferred Pelvic: Deferred Rectal: Deferred Extremities: No calf tenderness, Normal capillary refill, Normal inspection, Normal range of motion, Non-tender, No pedal edema Musculoskeletal : Apperance: Normal Neurologic: Alert, institute scientist II-XII 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 Was a procedure done?: No Differential Dx Considerations may include: angina, anxiety, dehydration X-Ray, Labs, Meds, VS Vital Signs Date Time Temp Pulse Resp B/P (MAP) Pulse Ox O2 Delivery O2 Flow Rate FiO2 08/27/25 16:30 98.4 62 15 97/62 (74) 89 98.4 08/27/25 11:55 97.9 88 20 117/78 96 97.9 08/27/25 11:50 89 Time of 1ST Reevaluation: 14:16 Reevaluation 1ST: Improved Patient Education/Counseling: Diagnosis, Treatment, Prognosis Family Education/Counseling: No Family Present SEPSIS Sepsis Screen Date sepsis recognized/suspect: Aug 27, 2025 Time Sepsis recognized/suspect: 1155 Recent Procedure: No On Antibiotic Therapy: No Respiratory Rate >20: No Heart Rate >90: No Temp<36 C (96.8 F) or >38.3 C: No SBP <90 or MAP <65 mmHG: No New Acute Mental Status Change: No Is the patient on CPAP, BIPAP,: No Physician Orders Electrocardigram (08/27/25 13:05) Electrocardigram (08/27/25 14:10) Vital Signs Date Time Temp Pulse Resp B/P (MAP) Pulse Ox O2 Delivery O2 Flow Rate FiO2 08/27/25 16:30 98.4 62 15 97/62 (74) 89 98.4 08/27/25 11:55 97.9 88 20 117/78 96 97.9 08/27/25 11:50 89 Departure 1 Departure Time of Disposition: 07:13 (Patient presents with her baseline presentation. Patient is anxious but we will go back to her facility) Impression: Primary Impression: Anxiety reaction Disposition: 03 [facility] FACILITY Condition: Stable Critical Care Note Critical Care Time?: No Stability Stability form required: No I personally scribed for AISHWARYA HEREDIA MD ([email or web address]) on 08/27/25 at 14:17. Electronically submitted by Lizzy Cristobal ([facility]). AISHWARYA HEREDIA MD Aug 27, 2025 14:17
[2025-08-27] MEDS: LORazepam 0.5 MG TAB PO ONE (14:41)
[2025-08-27 16:30] VITALS: BP 97/62; PULSE 62; RESP 15; TEMP 98.4; O2SAT 89
--- NOTE | 2025-08-30 10:41 | ECG ---
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
== END 2025-08-27 17:25 | disposition home or self-care (01) ==
LOC: EDBD 11:47 → ER 11:47
DX: F41.1 Generalized anxiety disorder (principal); I10 Essential (primary) hypertension; F17.210 Nicotine dependence, cigarettes, uncomplicated; F20.9 Schizophrenia, unspecified; J44.89 Other specified chronic obstructive pulmonary disease; Z87.440 Personal history of urinary (tract) infections; Z79.899 Other long term (current) drug therapy; Z88.1 Allergy status to other antibiotic agents; Z88.8 Allergy status to other drugs, medicaments and biological substances
CPT/HCPCS: 93005

== ENCOUNTER 2025-08-30 09:01 | Emergency (ER) | payer OTHER ==
[~2025-08-30] VITALS: Ht 162.6 cm; Wt 50.0 kg
--- NOTE | 2025-08-30 09:15 | ECG ---
[facility] Test Date: 2025-08-30 Test Time: 09:03:23 Pat Name: NATIVIDAD URBAN Department: ED Room: Gender: F Photovoltaic Installation Technician: alvaro : 1970 Requested By: AISHWARYA HEREDIA Order Number: [id number] Reading MD: Measurements Intervals [place] Rate: 80 P: 87 OR: 126 QRS: 101 QRSD: 73 T: 58 QT: 378 QTc: 436 Interpretive Statements Sinus rhythm Probable left atrial enlargement Anteroseptal infarct, age indeterminate Please click the below link to view image of tracing.
--- NOTE | 2025-08-30 09:20 | ED.PDOC ---
HPI Comments 55 year old female with PMHx asthma, HTN, schizophrenia presents to the ED via EMS with a chief complaint of chest pain onset today. Per EMS, patient was at a cafe, nearby her nursing care facility, when she began experiencing chest pain radiating to RT arm. Upon EMS arrival, O2 sat was in the 80s, placed on 2L, currently O2 100%. Patient states she left [facility], does not want to be there. Patient has been seen in this ED multiple times for similar complaints, last ED visit was 08/27/25, with a chief complaint of chest pressure. Denies fever, chills, cough, congestion, numbness/tingling, weakness, dizziness, blurred vision, nausea, vomiting, diarrhea, headache. No other symptoms or modifying factors present at this time. Chief Complaint: Chest Pain Time Seen by MD: 09:15 Primary Care Provider: UNKNOWN Reviewed Notes: Medications, Allergies Allergies: Coded Allergies: Azithromycin (Verified Allergy, Severe, 08/02/25) Lactose (Verified Allergy, Severe, 11/15/24) Erythromycin (Verified Allergy, Intermediate, 07/19/25) Home Meds Active Scripts Gabapentin (Once-Daily) (Gabapentin) 300 Mg Tab, 300 MG PO Q6HP PRN, #60 TAB Prov:MANDY OJEDA MD 08/15/25 Ondansetron Odt 4MG Tab (ZOFRAN PO) 4 Mg Tb, 4 MG PO Q6HP PRN, #30 TAB ODT TAB-DISSOLVE IN MOUTH, THEN SWALLOW Prov:MANDY OJEDA MD 08/15/25 Azithromycin (Azithromycin) 500 Mg Tab, 1 TAB PO DAILY for 3 Days, #3 TAB Prov:MANDY OJEDA MD 08/14/25 Prednisone (Prednisone) 20 Mg Tab, 20 MG PO BID for 5 Days, #10 TAB Prov:MANDY OJEDA MD 08/14/25 Albuterol Sulfate (Albuterol Sulfate Hfa) 108 Mcg/Act Aer, 108 MCG IN Q6HP PRN, #1 AER Prov:MANDY OJEDA MD 08/14/25 Prednisone (Prednisone) 20 Mg Tab, 20 MG PO BID for 5 Days, #10 TAB Prov:MANDY OJEDA MD 08/12/25 Azithromycin (Azithromycin) 500 Mg Tab, 1 TAB PO DAILY for 3 Days, #3 TAB Prov:MANDY OJEDA MD 08/12/25 Albuterol Sulfate (Albuterol Sulfate Hfa) 108 Mcg/Act Aer, 108 MCG IN Q6HP PRN, #1 AER 3 Refills Prov:MANDY OJEDA MD 08/12/25 Acetaminophen (Acetaminophen) 500 Mg Tab, 500 MG PO Q4HPRN, #30 TAB 0 Refills Prov:KENTON PARTIDA 08/12/25 Sulfamethoxazole W/Trimethopri (Bactrim Ds Tablet) 1 Tab Tb, 1 TAB PO BID for 7 Days, #14 TAB 0 Refills Prov:KENTON PARTIDA 08/12/25 Benzonatate (Benzonatate) 100 Mg Cap, 1 CAP PO TID for 30 Days, #30 CAP Prov:ADAM SU DO 08/10/25 Quetiapine Fumerate (QUETIAPINE FUMARATE) 100 Mg Tab, 100 MG PO BID for 30 Days, #60 TAB 5 Refills Prov:ADAM SU DO 08/10/25 Ipratropium-Albuterol (COMBIVENT RESPIMAT) Respimat Aer, 1 PUFF IN Q4HP PRN, #1 AER Prov:KEYUR BEAVER MD 08/08/25 Prednisone (Prednisone) 20 Mg Tab, 20 MG PO DAILY for 5 Days, #5 MG Prov:KEYUR BEAVER MD 08/08/25 Albuterol Sulfate (Ventolin) 2 Mg/5 Ml Sr, 5 ML PO TID PRN for 30 Days, #150 ML 3 Refills Prov:ADAM SU DO 07/21/25 Loperamide Hcl (Imodium) 2 Mg Cp, 2 MG PO Q6HPRN PRN for 30 Days, #10 CAP Prov:JOYA PLATT NP 06/22/25 Divalproex Sodium (Divalproex Sodium) 500 Mg Tab, 500 MG PO BID for 30 Days, #60 MG Prov:JOYA PLATT ALTERNATIVE DISPUTE RESOLUTION MEDIATOR 05/19/25 Haloperidol (Haldol) 5 Mg Tb, 3 MG PO BID for 30 Days, #60 MG Prov:JOYA PLATT ALTERNATIVE DISPUTE RESOLUTION MEDIATOR 05/19/25 Benztropine Mesylate (Benztropine Mesylate) 1 Mg Tab, 1 MG PO BID for 30 Days, #60 MG Prov:JOYA PLATT ALTERNATIVE DISPUTE RESOLUTION MEDIATOR 05/19/25 Trazodone Hcl (Trazodone Hcl) 50 Mg Tab, 75 MG PO HS for 30 Days, #45 MG Prov:JOYA PLATT ALTERNATIVE DISPUTE RESOLUTION MEDIATOR 05/19/25 Reported Medications Haloperidol (Haldol) 5 Mg Tb, 5 MG PO BID, MG 07/19/25 Ondansetron Odt 4MG Tab (ZOFRAN PO) 4 Mg Tb, 4 MG PO, TAB ODT TAB-DISSOLVE IN MOUTH, THEN SWALLOW 07/16/25 Naproxen (NAPROSYN TABLET) 500 Mg Tb, 1 TAB PO BID, #60 TAB 1 Refill 07/16/25 Acetaminophen (Tylenol Extra Strength) 500 Mg Tab, 500 MG PO, TAB 07/16/25 Fluticasone-Salmeterol (Advair Diskus 250/50) 1 Puff Ih, 1 PUFF INH BID, #3 INHALER 3 Refills 07/16/25 Dextromethorphan-Guaifenesin (Tussin Dm Cough & Chest C 20-200 mg/20Ml) 1 Liq Liq, 1 LIQ PO, LIQ 07/16/25 Quetiapine Fumerate (Seroquel) 50 Mg Tab, 1 TAB PO QPM, #30 TAB 2 Refills 07/16/25 Pantoprazole Sodium (PANTOPRAZOLE SODIUM) 40 Mg Inj, 40 MG PO DAILY, INJ 07/16/25 Information Source: Patient, Emergency Med Personnel Mode of Arrival: EMS Severity: Moderate Timing: Hours Duration: Since onset Prehospital treatment: Oxygen (2L) Location: Chest (L) Radiation: Arm (R) Quality: Sharp Onset: At Rest Cardiac Risk Factors: HTN PE Risk Factors: None History of: Similar pain in past Modifying Factors: Nothing Past Medical History PAST MEDICAL HISTORY: Asthma, COPD, HTN, Schizophrenia, UTI'S Surgical History: Denies all surgeries SUPERVISOR RECORDS CHANGE History: Denies all SUPERVISOR RECORDS CHANGE Hx Family History Family History: Reviewed,noncontributory to illness, Unknown Social History Smoker: Cigarettes, Less Than 1 Pack/Day Alcohol: Denies ETOH Use Drugs: Denies Drug Use Lives In: Assisted Care Constitutional: denies: chills, diaphoresis, fatigue, fever, malaise, sweats, weakness, others EENTM: denies: blurred vision, double vision, ear bleeding, ear discharge, ear drainage, ear pain, ear ringing, eye pain, eye redness, hearing loss, mouth pain, mouth swelling, nasal discharge, nose bleeding, nose congestion, nose pain, photophobia, tearing, throat pain, throat swelling, voice changes, others Respiratory: denies: cough, hemoptysis, orthopnea, SOB at rest, shortness of breath, SOB with excertion, stridor, wheezing, others Cardiovascular: reports: chest pain; denies: dizzy spells, diaphoresis, Dyspnea on exertion, edema, irregular heart beat, left arm pain, lightheadedness, palpitations, PND, syncope, others Gastrointestinal: denies: abdomen distended, abdominal pain, blood streaked bowels, constipated, diarrhea, dysphagia, difficulty swallowing, hematemesis, melena, nausea, poor appetite, poor fluid intake, rectal bleeding, rectal pain, vomiting, others Genitourinary: denies: abnormal vagina bleeding, burning, dyspareunia, dysuria, flank pain, frequency, hematuria, incontinence, pain, , vagina discharge, urgency, others Neurological: denies: dizziness, fainting, headache, left sided numbness, left sided weakness, numbness, paresthesia, pre-existing deficit, right sided numbness, right sided weakness, seizure, speech problems, tingling, tremors, weakness, others Musculoskeletal: reports: others (RT arm pain); denies: back pain, gout, joint pain, joint swelling, muscle pain, muscle stiffness, neck pain Integumetry: denies: bruises, change in color, change in hair/nails, dryness, laceration, lesions, lumps, rash, wounds, others Allergic/Immunocompromised: denies: Difficulty Healing, Frequent Infections, Hives, Itching, others Hematologic/Lymphatic: denies: anemia, blood clots, easy bleeding, easy bruising, swollen glands, others Endocrine: denies: excessive hunger, excessive sweating, excessive thirst, excessive urination, flushing, intolerance to cold, intolerance to heat, unexplained weight gain, unexplained weight loss, others Psychiatric: denies: anxiety, bipolar disorder, depression, hopeless, panic disorder, schizophrenia, sleepless, suicidal, others All Other Systems: Reviewed and Negative Physical Exam General Appearance: Normal HEENT: Normal ENT Inspection, Pharynx Normal, TMs Normal Neck: Full Range of Motion, Non-Tender, Normal, Normal Inspection Respiratory: Chest Non-Tender, Lungs Clear, No Accessory Muscle Use, No Respiratory Distress, Normal Breath Sounds Cardiovascular: No Edema, No JVD, No Murmur, No Gallop, Normal Peripheral Pulses, Regular Rate/Rhythm Breast Exam: Deferred Gastrointestinal: No Organomegaly, Non Tender, No Pulsatile Mass, Normal Bowel Sounds, Soft Genitalia: Deferred Pelvic: Deferred Rectal: Deferred Extremities: No calf tenderness, Normal capillary refill, Normal inspection, Normal range of motion, Non-tender, No pedal edema Musculoskeletal : Apperance: Normal Neurologic: Alert, machine programmer II-XII 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 Was a procedure done?: No CP Differential Dx Differential Diagnosis: UT, PAC's Differential Diagnosis: HTN Essential, HTN Accelerated Differential Diagnosis: Gastritis, Myocardial Infarction, Pericarditis X-Ray, Labs, Meds, VS Vital Signs Date Time Temp Pulse Resp B/P (MAP) Pulse Ox O2 Delivery O2 Flow Rate FiO2 08/30/25 10:05 79 08/30/25 09:03 80 08/30/25 09:01 98.9 84 22 115/83 100 98.9 Lab Test 08/30/25 10:36 08/30/25 09:20 Range/Units Troponin I High Sensitivity Pending < 3 L </=34 ng/L White Blood Count 3.8 L 4.4-10.8 10^3/uL Red Blood Count 4.44 4.0-5.20 10^6/uL Hemoglobin 14.1 12.2-16.2 g/dL Hematocrit 43.2 36.0-46.0 % Mean Corpuscular Volume 97.3 80.0-100.0 fL Mean Corpuscular Hemoglobin 31.9 28.0-32.0 pg Mean Corpuscular Hemoglobin Concent 32.7 32.0-36.0 g/dL Red Cell Distribution Width 16.1 H 11.8-14.3 % Platelet Count 159 140-450 10^3/uL Mean Platelet Volume 8.4 6.9-10.8 fL Neutrophils (%) (Auto) 60.4 37.0-80.0 % Lymphocytes (%) (Auto) 29.6 10.0-50.0 % Monocytes (%) (Auto) 7.4 0.0-12.0 % Eosinophils (%) (Auto) 1.9 0.0-7.0 % Basophils (%) (Auto) 0.7 0.0-2.0 % Neutrophils # (Auto) 2.3 1.6-8.6 10 ^3/uL Lymphocytes # (Auto) 1.1 0.4-5.4 10 ^3/uL Monocytes # (Auto) 0.3 0-1.3 10 ^3/uL Eosinophils # (Auto) 0.1 0-0.8 10 ^3/uL Basophils # (Auto) 0 0-0.2 10 ^3/uL Nucleated Red Blood Cells 0.0 % Sodium Level 142 136-145 mmol/L Potassium Level 4.5 3.5-5.1 mmol/L Chloride Level 107 98-107 mmol/L Carbon Dioxide Level 29 20-31 mmol/L Anion Gap 6 5-15 Blood Urea Nitrogen < 5 L 9-23 mg/dL Creatinine 0.53 L 0.550-1.02 mg/dL Glomerular Filtration Rate Calc 108 >90 mL/min BUN/Creatinine Ratio 9.4 L 10.0-20.0 Serum Glucose 69 L 74-106 mg/dL Calcium Level 9.2 8.7-10.4 mg/dL [place] [id number] Ph: [phone] DIAGNOSTIC IMAGING Diagnostic Imaging Report : [id number] Signed PATIENT: NATIVIDAD URBAN MACCT: [id number] UNIT: [id number] : 1970 LOC: ER ROOM / BED: / AGE / SEX: 55 / F ADM STATUS: REG ER SERVICE [id number] ORDERING PHYSICIAN: AISHWARYA HEREDIA MD PROCEDURE(s): CXR2 - CHEST TWO VIEWS ROUTINE REASON: CHEST PAIN ORDER NUMBER(s): [id number], ACCESSION NUMBER(s): [id number] CHEST RADIOGRAPH INDICATION: CHEST PAIN TECHNIQUE: Frontal and lateral view of the chest was obtained COMPARISON: XY CHEST PORTABLE on DOS: 08/22/25, XY CHEST XRAY 1 VIEW on DOS: 08/20/25, XY CHEST XRAY 1 VIEW on DOS: 08/14/25, XY CHEST PORTABLE on DOS: 08/12/25, XY CHEST PORTABLE on DOS: 08/08/25 FINDINGS: Lines and Tubes: None Lungs: Clear Pleura: No effusion. No pneumothorax. Cardiomediastinal contours: Unremarkable Bones: Unremarkable IMPRESSION: Lungs are hyperinflated suggestive of COPD. ATED BY: PRINCE FREEMAN MD DICTATED DATE/TIME: 08/30/25948 SIGNED BY: PRINCE FREEMAN MD SIGNED DATE/TIME: 08/30/25948 CC: Time of 1ST Reevaluation: 09:45 Reevaluation 1ST: Unchanged Patient Education/Counseling: Diagnosis, Treatment, Prognosis Family Education/Counseling: No Family Present SEPSIS Sepsis Screen Date sepsis recognized/suspect: Aug 30, 2025 Time Sepsis recognized/suspect: 900 Recent Procedure: No On Antibiotic Therapy: No Respiratory Rate >20: No Heart Rate >90: No Temp<36 C (96.8 F) or >38.3 C: No SBP <90 or MAP <65 mmHG: No New Acute Mental Status Change: No Is the patient on CPAP, BIPAP,: No Physician Orders Chest Two Views Routine (08/30/25 09:14) Urinalysis (08/30/25 09:05) Troponin-I Hs (08/30/25 10:05) Troponin-I Hs (08/30/25 12:05) Electrocardigram (08/30/25 10:05) Albuterol Medneb (Ventolin Medneb) (08/30/25 11:00) Ipratropium Medneb (Atrovent Medneb) (08/30/25 11:00) Vital Signs Date Time Temp Pulse Resp B/P (MAP) Pulse Ox O2 Delivery O2 Flow Rate FiO2 08/30/25 10:05 79 08/30/25 09:03 80 08/30/25 09:01 98.9 84 22 115/83 100 98.9 Laboratory Tests Test 08/30/25 09:20 White Blood Count 3.8 10^3/uL (4.4-10.8) L Departure 1 Departure Time of Disposition: 10:56 (Patient is well known to the ER. Patient without any acute complaints. Discussed with the patient's physician and we will discharge patient back to her facility) Impression: Primary Impression: Anxiety reaction Disposition: 03 ALF FACILITY Condition: Stable Critical Care Note Critical Care Time?: No Stability Stability form required: No Heart Score Heart Score: Heart Score Response (Comments) Value History N/A 0 EKG N/A 0 Age N/A 0 Risk Factors N/A 0 Troponin N/A 0 Total 0 I personally scribed for AISHWARYA HEREDIA MD ([email or web address]) on 08/30/25 at 09:20. Electronically submitted by Amber Qureshi ([email or web address]). I personally scribed for AISHWARYA HEREDIA MD ([email or web address]) on 08/30/25 at 10:26. Electronically submitted by Amber Qureshi ([email or web address]). AISHWARYA HEREDIA MD Aug 30, 2025 09:20
[2025-08-30 09:36] LABS: Hematocrit 43.2 % (36.0-46.0); Hemoglobin 14.1 g/dL (12.2-16.2); Mean Corpuscular Hemoglobin 31.9 pg (28.0-32.0); Mean Corpuscular Volume 97.3 fL (80.0-100.0); Nucleated Red Blood Cells % 0.0 %
[2025-08-30 09:42] LABS: Chloride 107 mmol/L (98-107); Potassium 4.5 mmol/L (3.5-5.1); Sodium 142 mmol/L (136-145)
[2025-08-30 09:43] LABS: Anion Gap 6 (5-15); Carbon Dioxide 29 mmol/L (20-31)
[2025-08-30 09:44] LABS: Calcium 9.2 mg/dL (8.7-10.4)
[2025-08-30 09:50] LABS: BUN/Creatinine Ratio 9.4 (10.0-20.0); Blood Urea Nitrogen < 5 mg/dL (9-23); Glucose 69 mg/dL (74-106)
--- NOTE | 2025-08-30 09:51 | DVH ---
CHEST RADIOGRAPH INDICATION: CHEST PAIN TECHNIQUE: Frontal and lateral view of the chest was obtained COMPARISON: XY CHEST PORTABLE on DOS: 08/22/25, XY CHEST XRAY 1 VIEW on DOS: 08/20/25, XY CHEST XRAY 1 VIEW on DOS: 08/14/25, XY CHEST PORTABLE on DOS: 08/12/25, XY CHEST PORTABLE on DOS: 08/08/25 FINDINGS: Lines and Tubes: None Lungs: Clear Pleura: No effusion. No pneumothorax. Cardiomediastinal contours: Unremarkable Bones: Unremarkable IMPRESSION: Lungs are hyperinflated suggestive of COPD.
[2025-08-30] MEDS: ALBUTEROL SULF 2.5 MG/0.5ML(0.5%) NEB SOLN NEB ONE (12:23)
[2025-08-30] MEDS: IPRATROPIUM BROM 0.5 MG/2.5ML INH SOL NEB ONE (12:24)
[2025-08-30 12:30] VITALS: BP 104/42; PULSE 94; RESP 18; TEMP 97.8; O2SAT 92
[2025-08-30 12:42] LABS: Urine Protein, UAD Negative (Negative)
--- NOTE | 2025-08-31 12:56 | ECG ---
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
== END 2025-08-30 13:18 ==
LOC: EDBD 09:01 → EDUNIT# 09:01 → ER 09:01
DX: F41.1 Generalized anxiety disorder (principal); J44.89 Other specified chronic obstructive pulmonary disease; I10 Essential (primary) hypertension; F20.9 Schizophrenia, unspecified; F17.210 Nicotine dependence, cigarettes, uncomplicated; Z88.1 Allergy status to other antibiotic agents; Z79.899 Other long term (current) drug therapy
CPT/HCPCS: 36415; 71046; 80048; 81001; 84484; 85025; 93005; 94640

== ENCOUNTER 2025-08-31 01:59 | Emergency (ER) | payer OTHER ==
[~2025-08-31] VITALS: Ht 152.4 cm; Wt 50.0 kg
--- NOTE | 2025-08-31 02:13 | ECG ---
[facility] Test Date: 2025-08-31 Test Time: 02:06:07 Pat Name: NATIVIDAD URBAN Department: ED Room: Gender: F Shuttle Repairer: NORBERTO : 1970 Requested By: EMERGENCY EMERGENCY Order Number: [id number] Reading MD: Guanaco Camacho Measurements Intervals [place] Rate: 86 P: 91 MA: 141 QRS: 95 QRSD: 178 T: 79 QT: 378 QTc: 452 Interpretive Statements Sinus rhythm Right atrial enlargement IVCD, consider atypical RBBB Anterior infarct, possibly acute Lateral leads are also involved Electronically Signed On 09-02-2025 17:18:49 PST by Guanaco Camacho Please click the below link to view image of tracing.
--- NOTE | 2025-08-31 03:16 | ED.PDOC ---
History of Present Illness HPI Comments 55-year-old female who came to ER for shortness of breath. Patient does have history of asthma and schizophrenia. Seen here multiple times fo similar complaints. Still complaining for shortness of breath and chest pains. REVIEW OF SYSTEMS: General: No fever, no chills, HEENT: No neck pain, no blurred vision Cardiac: + chest pain. No palpitations. Lungs: No shortness of breath, GI: No abdominal pain, no vomiting Musculoskeletal: No joint pain , no back pain Skin: No rash, no wound Neuro: No headache, no dizziness, no syncope PHYSICAL EXAM: General: Awake, alert and oriented. No acute distress. Skin: Skin in warm, dry and intact. Appropriate color for ethnicity. HEENT: The head is normocephalic and atraumatic. Conjunctivae are clear without exudates or hemorrhage. Sclera is non-icteric. Eyelids are normal in appearance without swelling or lesions. Oral mucosa is pink and moist Neck: The neck is supple with normal range of motion. No JVD. Cardiac: Heart rate and rhythm are normal. No murmurs, gallops, or rubs are auscultated. Respiratory: No signs of respiratory distress. Lung sounds are clear in all lobes bilaterally without rales, rhonchi, or wheezes. Extremities: Lower extremities without edema. Neurological: The patient is awake, alert and oriented to person, place, and time with normal speech. Speech is clear. There is no facial asymmetry. Psychiatric: Appropriate mood and affect. Good judgement and insight. Chief Complaint: Shortness of Breath Time Seen by MD: 03:15 Primary Care Provider: UNKNOWN Reviewed Notes: Nurses Notes Allergies: Coded Allergies: Azithromycin (Verified Allergy, Severe, 08/02/25) Lactose (Verified Allergy, Severe, 11/15/24) Erythromycin (Verified Allergy, Intermediate, 07/19/25) Home Meds Active Scripts Gabapentin (Once-Daily) (Gabapentin) 300 Mg Tab, 300 MG PO Q6HP PRN, #60 TAB Prov:MANDY OJEDA MD 08/15/25 Ondansetron Odt 4MG Tab (ZOFRAN PO) 4 Mg Tb, 4 MG PO Q6HP PRN, #30 TAB ODT TAB-DISSOLVE IN MOUTH, THEN SWALLOW Prov:MANDY OJEDA MD 08/15/25 Azithromycin (Azithromycin) 500 Mg Tab, 1 TAB PO DAILY for 3 Days, #3 TAB Prov:MANDY OJEDA MD 08/14/25 Prednisone (Prednisone) 20 Mg Tab, 20 MG PO BID for 5 Days, #10 TAB Prov:MANDY OJEDA MD 08/14/25 Albuterol Sulfate (Albuterol Sulfate Hfa) 108 Mcg/Act Aer, 108 MCG IN Q6HP PRN, #1 AER Prov:MANDY OJEDA MD 08/14/25 Prednisone (Prednisone) 20 Mg Tab, 20 MG PO BID for 5 Days, #10 TAB Prov:MANDY OJEDA MD 08/12/25 Azithromycin (Azithromycin) 500 Mg Tab, 1 TAB PO DAILY for 3 Days, #3 TAB Prov:MANDY OJEDA MD 08/12/25 Albuterol Sulfate (Albuterol Sulfate Hfa) 108 Mcg/Act Aer, 108 MCG IN Q6HP PRN, #1 AER 3 Refills Prov:MANDY OJEDA MD 08/12/25 Acetaminophen (Acetaminophen) 500 Mg Tab, 500 MG PO Q4HPRN, #30 TAB 0 Refills Prov:KENTON PARTIDA 08/12/25 Sulfamethoxazole W/Trimethopri (Bactrim Ds Tablet) 1 Tab Tb, 1 TAB PO BID for 7 Days, #14 TAB 0 Refills Prov:KENTON PARTIDA 08/12/25 Benzonatate (Benzonatate) 100 Mg Cap, 1 CAP PO TID for 30 Days, #30 CAP Prov:ADAM SU DO 08/10/25 Quetiapine Fumerate (QUETIAPINE FUMARATE) 100 Mg Tab, 100 MG PO BID for 30 Days, #60 TAB 5 Refills Prov:ADAM SU DO 08/10/25 Ipratropium-Albuterol (COMBIVENT RESPIMAT) Respimat Aer, 1 PUFF IN Q4HP PRN, #1 AER Prov:KEYUR BEAVER MD 08/08/25 Prednisone (Prednisone) 20 Mg Tab, 20 MG PO DAILY for 5 Days, #5 MG Prov:KEYUR BEAVER MD 08/08/25 Albuterol Sulfate (Ventolin) 2 Mg/5 Ml Sr, 5 ML PO TID PRN for 30 Days, #150 ML 3 Refills Prov:ADAM SU DO 07/21/25 Loperamide Hcl (Imodium) 2 Mg Cp, 2 MG PO Q6HPRN PRN for 30 Days, #10 CAP Prov:JOYA PLATT MACHINE CARTON MARKER 06/22/25 Divalproex Sodium (Divalproex Sodium) 500 Mg Tab, 500 MG PO BID for 30 Days, #60 MG Prov:JOYA PLATT MACHINE CARTON MARKER 05/19/25 Haloperidol (Haldol) 5 Mg Tb, 3 MG PO BID for 30 Days, #60 MG Prov:JOYA PLATT MACHINE CARTON MARKER 05/19/25 Benztropine Mesylate (Benztropine Mesylate) 1 Mg Tab, 1 MG PO BID for 30 Days, #60 MG Prov:JOYA PLATT MACHINE CARTON MARKER 05/19/25 Trazodone Hcl (Trazodone Hcl) 50 Mg Tab, 75 MG PO HS for 30 Days, #45 MG Prov:JOYA PLATT MACHINE CARTON MARKER 05/19/25 Reported Medications Haloperidol (Haldol) 5 Mg Tb, 5 MG PO BID, MG 07/19/25 Ondansetron Odt 4MG Tab (ZOFRAN PO) 4 Mg Tb, 4 MG PO, TAB ODT TAB-DISSOLVE IN MOUTH, THEN SWALLOW 07/16/25 Naproxen (NAPROSYN TABLET) 500 Mg Tb, 1 TAB PO BID, #60 TAB 1 Refill 07/16/25 Acetaminophen (Tylenol Extra Strength) 500 Mg Tab, 500 MG PO, TAB 07/16/25 Fluticasone-Salmeterol (Advair Diskus 250/50) 1 Puff Ih, 1 PUFF INH BID, #3 INHALER 3 Refills 07/16/25 Dextromethorphan-Guaifenesin (Tussin Dm Cough & Chest C 20-200 mg/20Ml) 1 Liq Liq, 1 LIQ PO, LIQ 07/16/25 Quetiapine Fumerate (Seroquel) 50 Mg Tab, 1 TAB PO QPM, #30 TAB 2 Refills 07/16/25 Pantoprazole Sodium (PANTOPRAZOLE SODIUM) 40 Mg Inj, 40 MG PO DAILY, INJ 07/16/25 Information Source: Patient, Emergency Med Personnel Mode of Arrival: EMS Past Medical History PAST MEDICAL HISTORY: Asthma, COPD, HTN, Schizophrenia, UTI'S Surgical History: Denies all surgeries FIRE AND SAFETY HELPER History: Denies all FIRE AND 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 Was a procedure done?: No EKG EKG : Comments Sinus rhythm Right atrial enlargement IVCD, consider atypical RBBB NO STEMI Differential Dx Considerations may include: Asthma, COPD, anxiety, schizophrenia X-Ray, Labs, Meds, VS Vital Signs Date Time Temp Pulse Resp B/P (MAP) Pulse Ox O2 Delivery O2 Flow Rate FiO2 08/31/25 06:29 95 Room Air* 0 21 08/31/25 06:28 98.5 67 14 106/61 (76) 95 98.5 08/31/25 04:12 98.3 64 18 91/42 (58) 98 98.3 08/31/25 02:06 98.2 85 18 104/74 100 98.2 08/31/25 02:06 86 Lab Test 08/31/25 03:39 Range/Units Troponin I High Sensitivity 3 L </=34 ng/L Current Medications Medications (Trade) Dose Ordered Sig/Elaine Route Start Time Stop Time Status Last Admin Albuterol (Ventolin Medneb) 2.5 mg ONCE ONCE NEB 08/31/25 03:15 08/31/25 03:16 DC 08/31/25 03:28 Time of 1ST Reevaluation: 03:11 Reevaluation 1ST: Unchanged Patient Education/Counseling: Need For Follow Up Family Education/Counseling: No Family Present SEPSIS Sepsis Screen Date sepsis recognized/suspect: Aug 31, 2025 Time Sepsis recognized/suspect: 0206 Recent Procedure: No On Antibiotic Therapy: No Respiratory Rate >20: No Heart Rate >90: No Temp<36 C (96.8 F) or >38.3 C: No SBP <90 or MAP <65 mmHG: No New Acute Mental Status Change: No Is the patient on CPAP, BIPAP,: No Vital Signs Date Time Temp Pulse Resp B/P (MAP) Pulse Ox O2 Delivery O2 Flow Rate FiO2 08/31/25 06:29 95 Room Air* 0 21 08/31/25 06:28 98.5 67 14 106/61 (76) 95 98.5 08/31/25 04:12 98.3 64 18 91/42 (58) 98 98.3 08/31/25 02:06 98.2 85 18 104/74 100 98.2 08/31/25 02:06 86 Departure 1 Departure Time of Disposition: 05:21 Impression: Primary Impression: Chest pain Disposition: HOME / SELF CARE / HOMELESS Condition: Stable Comments 55-year-old female with frequent presentations in the emergency department presents with chest pain ongoing for several days. She was seen at this facility yesterday morning with similar presentation. Labs and imaging from that visit reviewed. Patient also is reporting she does not want to go back to the SNF where she is and requesting to be admitted because she does not like it there. Patient is troponin and EKG negative at this time. She is felt stable for discharge Critical Care Note Critical Care Time?: No Stability Stability form required: No Heart Score Heart Score: Heart Score Response (Comments) Value History N/A 0 EKG N/A 0 Age N/A 0 Risk Factors N/A 0 Troponin N/A 0 Total 0 I personally scribed for ANGELITO REYES MD ([email or web address]) on 08/31/25 at 03:15. Electronically submitted by Evelio Caceres ([email or web address]). ANGELITO REYES MD Aug 31, 2025 03:15
[2025-08-31] MEDS: ALBUTEROL SULF 2.5 MG/0.5ML(0.5%) NEB SOLN NEB ONE (03:28)
[2025-08-31] MEDS: SODIUM CHLORIDE 0.9% 1,000 ML IV ONE (05:30)
[2025-08-31 06:28] VITALS: BP 106/61; PULSE 67; RESP 14; TEMP 98.5
[2025-08-31 06:29] VITALS: O2SAT 95
== END 2025-08-31 06:36 | disposition home or self-care (01) ==
LOC: ER 01:59 → EDBD 01:59 → ER 06:36
DX: R07.89 Other chest pain (principal); I10 Essential (primary) hypertension; F17.210 Nicotine dependence, cigarettes, uncomplicated; J44.89 Other specified chronic obstructive pulmonary disease; Z88.1 Allergy status to other antibiotic agents; Z79.899 Other long term (current) drug therapy
CPT/HCPCS: 36415; 84484; 93005; 94640

== ENCOUNTER 2025-09-06 14:08 | Emergency (ER) | payer OTHER ==
[~2025-09-06] VITALS: Ht 154.9 cm; Wt 50.0 kg
[2025-09-06 14:14] VITALS: BP 103/60; PULSE 105; RESP 20; TEMP 98.2; O2SAT 97
[2025-09-06 14:37] LABS: Hematocrit 42.9 % (36.0-46.0); Hemoglobin 14.1 g/dL (12.2-16.2); Mean Corpuscular Hemoglobin 31.2 pg (28.0-32.0); Mean Corpuscular Volume 94.9 fL (80.0-100.0); Nucleated Red Blood Cells % 0.0 %
[2025-09-06 14:48] LABS: Potassium 3.8 mmol/L (3.5-5.1); Sodium 142 mmol/L (136-145)
[2025-09-06 14:49] LABS: Calcium 9.8 mg/dL (8.7-10.4)
[2025-09-06 14:54] LABS: BUN/Creatinine Ratio 11.5 (10.0-20.0)
[2025-09-06 15:13] LABS: Anion Gap 3.99999 (5-15); Blood Urea Nitrogen 7 mg/dL (9-23); Chloride 98 mmol/L (98-107); Glucose 115 mg/dL (74-106)
[2025-09-06 15:14] LABS: Carbon Dioxide > 40 mmol/L (20-31)
--- NOTE | 2025-09-06 15:32 | ED.PDOC ---
History of Present Illness HPI Comments This is a 55-year old female with past medical history of COPD, schizhophrenia and multiple hospitalisations who presented to the ED with the chief complaint of shortness of breath. Patient is a poor historian. Per patient she lives in [facility] since 4 years and uses oxygen 4 liter as needed. She was recently seen in the ED for suicidal ideation and discharged yesterday after clearance from psychiatry. Oxygen saturation on arrival was 97% on room air. She is currently saturating well on 4liter oxygen by nasal canula. She has no other complaints of chest pain, cough, recent sick contacts or suicidal ideation . Chief Complaint: Chest Pain Time Seen by MD: 15:00 Primary Care Provider: UNKNOWN Allergies: Coded Allergies: Azithromycin (Verified Allergy, Severe, 08/02/25) Lactose (Verified Allergy, Severe, 11/15/24) Erythromycin (Verified Allergy, Intermediate, 07/19/25) Home Meds Active Scripts Gabapentin (Once-Daily) (Gabapentin) 300 Mg Tab, 300 MG PO Q6HP PRN, #60 TAB Prov:MANDY OJEDA MD 08/15/25 Ondansetron Odt 4MG Tab (ZOFRAN PO) 4 Mg Tb, 4 MG PO Q6HP PRN, #30 TAB ODT TAB-DISSOLVE IN MOUTH, THEN SWALLOW Prov:MANDY OJEDA MD 08/15/25 Azithromycin (Azithromycin) 500 Mg Tab, 1 TAB PO DAILY for 3 Days, #3 TAB Prov:MANDY OJEDA MD 08/14/25 Prednisone (Prednisone) 20 Mg Tab, 20 MG PO BID for 5 Days, #10 TAB Prov:MANDY OJEDA MD 08/14/25 Albuterol Sulfate (Albuterol Sulfate Hfa) 108 Mcg/Act Aer, 108 MCG IN Q6HP PRN, #1 AER Prov:MANDY OJEDA MD 08/14/25 Prednisone (Prednisone) 20 Mg Tab, 20 MG PO BID for 5 Days, #10 TAB Prov:MANDY OJEDA MD 08/12/25 Azithromycin (Azithromycin) 500 Mg Tab, 1 TAB PO DAILY for 3 Days, #3 TAB Prov:MANDY OJEDA MD 08/12/25 Albuterol Sulfate (Albuterol Sulfate Hfa) 108 Mcg/Act Aer, 108 MCG IN Q6HP PRN, #1 AER 3 Refills Prov:MANDY OJEDA MD 08/12/25 Acetaminophen (Acetaminophen) 500 Mg Tab, 500 MG PO Q4HPRN, #30 TAB 0 Refills Prov:KENTON PARTIDA 08/12/25 Sulfamethoxazole W/Trimethopri (Bactrim Ds Tablet) 1 Tab Tb, 1 TAB PO BID for 7 Days, #14 TAB 0 Refills Prov:KENTON PARTIDA 08/12/25 Benzonatate (Benzonatate) 100 Mg Cap, 1 CAP PO TID for 30 Days, #30 CAP Prov:SUADAM DO 08/10/25 Quetiapine Fumerate (QUETIAPINE FUMARATE) 100 Mg Tab, 100 MG PO BID for 30 Days, #60 TAB 5 Refills Prov:ADAM SU DO 08/10/25 Ipratropium-Albuterol (COMBIVENT RESPIMAT) Respimat Aer, 1 PUFF IN Q4HP PRN, #1 AER Prov:KEYUR BEAVER MD 08/08/25 Prednisone (Prednisone) 20 Mg Tab, 20 MG PO DAILY for 5 Days, #5 MG Prov:KEYUR BEAVER MD 08/08/25 Albuterol Sulfate (Ventolin) 2 Mg/5 Ml Sr, 5 ML PO TID PRN for 30 Days, #150 ML 3 Refills Prov:ADAM SU DO 07/21/25 Loperamide Hcl (Imodium) 2 Mg Cp, 2 MG PO Q6HPRN PRN for 30 Days, #10 CAP Prov:JOYA PLATT NP 06/22/25 Divalproex Sodium (Divalproex Sodium) 500 Mg Tab, 500 MG PO BID for 30 Days, #60 MG Prov:JOYA PLATT NP 05/19/25 Haloperidol (Haldol) 5 Mg Tb, 3 MG PO BID for 30 Days, #60 MG Prov:JOYA PLATT NP 05/19/25 Benztropine Mesylate (Benztropine Mesylate) 1 Mg Tab, 1 MG PO BID for 30 Days, #60 MG Prov:JOYA PLATT NP 05/19/25 Trazodone Hcl (Trazodone Hcl) 50 Mg Tab, 75 MG PO HS for 30 Days, #45 MG Prov:JOYA PLATT CERTIFIED TECHNICIAN 05/19/25 Reported Medications Haloperidol (Haldol) 5 Mg Tb, 5 MG PO BID, MG 07/19/25 Ondansetron Odt 4MG Tab (ZOFRAN PO) 4 Mg Tb, 4 MG PO, TAB ODT TAB-DISSOLVE IN MOUTH, THEN SWALLOW 07/16/25 Naproxen (NAPROSYN TABLET) 500 Mg Tb, 1 TAB PO BID, #60 TAB 1 Refill 07/16/25 Acetaminophen (Tylenol Extra Strength) 500 Mg Tab, 500 MG PO, TAB 07/16/25 Fluticasone-Salmeterol (Advair Diskus 250/50) 1 Puff Ih, 1 PUFF INH BID, #3 INHA LER 3 Refills 07/16/25 Dextromethorphan-Guaifenesin (Tussin Dm Cough & Chest C 20-200 mg/20Ml) 1 Liq Liq, 1 LIQ PO, LIQ 07/16/25 Quetiapine Fumerate (Seroquel) 50 Mg Tab, 1 TAB PO QPM, #30 TAB 2 Refills 07/16/25 Pantoprazole Sodium (PANTOPRAZOLE SODIUM) 40 Mg Inj, 40 MG PO DAILY, INJ 07/16/25 Information Source: Patient Mode of Arrival: EMS Severity: Mild Timing: Hours Duration: Since onset Prehospital treatment: None Past Medical History PAST MEDICAL HISTORY: Asthma, COPD, HTN, Schizophrenia, UTI'S Surgical History: Denies all surgeries RESERVATIONS CLERK History: Denies all RESERVATIONS CLERK Hx Family History Family History: Reviewed,noncontributory to illness, Unknown Social History Smoker: Cigarettes, Less Than 1 Pack/Day Alcohol: Denies ETOH Use Drugs: Denies Drug Use Lives In: Assisted Care Constitutional: denies: chills, diaphoresis, fatigue, fever, malaise, sweats, weakness, others EENTM: denies: blurred vision, double vision, ear bleeding, ear discharge, ear drainage, ear pain, ear ringing, eye pain, eye redness, hearing loss, mouth pain, mouth swelling, nasal discharge, nose bleeding, nose congestion, nose pain, photophobia, tearing, throat pain, throat swelling, voice changes, others Respiratory: reports: SOB at rest; denies: cough, hemoptysis, orthopnea, shortness of breath, SOB with excertion, stridor, wheezing, others Cardiovascular: denies: chest pain, dizzy spells, diaphoresis, Dyspnea on exertion, edema, irregular heart beat, left arm pain, lightheadedness, palpitations, PND, syncope, others Gastrointestinal: denies: abdomen distended, abdominal pain, blood streaked bowels, constipated, diarrhea, dysphagia, difficulty swallowing, hematemesis, melena, nausea, poor appetite, poor fluid intake, rectal bleeding, rectal pain, vomiting, others Genitourinary: denies: abnormal vagina bleeding, burning, dyspareunia, dysuria, flank pain, frequency, hematuria, incontinence, pain, , vagina discharge, urgency, others Neurological: denies: dizziness, fainting, headache, left sided numbness, left sided weakness, numbness, paresthesia, pre-existing deficit, right sided numbness, right sided weakness, seizure, speech problems, tingling, tremors, weakness, others Musculoskeletal: denies: back pain, gout, joint pain, joint swelling, muscle pain, muscle stiffness, neck pain, others Integumetry: denies: bruises, change in color, change in hair/nails, dryness, laceration, lesions, lumps, rash, wounds, others Allergic/Immunocompromised: denies: Difficulty Healing, Frequent Infections, Hives, Itching, others Hematologic/Lymphatic: denies: anemia, blood clots, easy bleeding, easy bruising, swollen glands, others Endocrine: denies: excessive hunger, excessive sweating, excessive thirst, excessive urination, flushing, intolerance to cold, intolerance to heat, unexplained weight gain, unexplained weight loss, others Psychiatric: denies: anxiety, bipolar disorder, depression, hopeless, panic disorder, schizophrenia, sleepless, suicidal, others Physical Exam General Appearance: Thin HEENT: Normal ENT Inspection Neck: Non-Tender, Normal Inspection Respiratory: Chest Non-Tender, Normal Breath Sounds Cardiovascular: No Edema, No Murmur, Normal Peripheral Pulses Breast Exam: Normal Gastrointestinal: Non Tender, Normal Bowel Sounds Genitalia: Deferred Pelvic: Deferred Rectal: Deferred Extremities: Normal capillary refill, Normal inspection, Normal range of motion, Non-tender, No pedal edema Neurologic: No Motor Deficits, No Sensory Deficits Cerebellar Function: Normal Reflexes: Normal Skin: Normal Color Lymphatic: No Adenopathy Was a procedure done? Was a procedure done?: No Differential Dx Considerations may include: COPD, acute bronchitis,ACS X-Ray, Labs, Meds, VS Vital Signs Date Time Temp Pulse Resp B/P (MAP) Pulse Ox O2 Delivery O2 Flow Rate FiO2 09/06/25 14:14 98.2 105 20 103/60 97 98.2 Lab Test 09/06/25 14:28 Range/Units White Blood Count 4.6 # 4.4-10.8 10^3/uL Red Blood Count 4.52 4.0-5.20 10^6/uL Hemoglobin 14.1 12.2-16.2 g/dL Hematocrit 42.9 36.0-46.0 % Mean Corpuscular Volume 94.9 80.0-100.0 fL Mean Corpuscular Hemoglobin 31.2 28.0-32.0 pg Mean Corpuscular Hemoglobin Concent 32.9 32.0-36.0 g/dL Red Cell Distribution Width 15.1 H 11.8-14.3 % Platelet Count 157 140-450 10^3/uL Mean Platelet Volume 8.6 6.9-10.8 fL Neutrophils (%) (Auto) 81.0 H 37.0-80.0 % Lymphocytes (%) (Auto) 11.5 10.0-50.0 % Monocytes (%) (Auto) 6.9 0.0-12.0 % Eosinophils (%) (Auto) 0.4 0.0-7.0 % Basophils (%) (Auto) 0.2 0.0-2.0 % Neutrophils # (Auto) 3.7 1.6-8.6 10 ^3/uL Lymphocytes # (Auto) 0.5 0.4-5.4 10 ^3/uL Monocytes # (Auto) 0.3 0-1.3 10 ^3/uL Eosinophils # (Auto) 0 0-0.8 10 ^3/uL Basophils # (Auto) 0 0-0.2 10 ^3/uL Nucleated Red Blood Cells 0.0 % Sodium Level 142 136-145 mmol/L Potassium Level 3.8 3.5-5.1 mmol/L Chloride Level 98 98-107 mmol/L Carbon Dioxide Level > 40 *H 20-31 mmol/L Anion Gap 3.05674 L 5-15 Blood Urea Nitrogen 7 L 9-23 mg/dL Creatinine 0.61 0.550-1.02 mg/dL Glomerular Filtration Rate Calc 105 >90 mL/min BUN/Creatinine Ratio 11.5 10.0-20.0 Serum Glucose 115 H 74-106 mg/dL Calcium Level 9.8 8.7-10.4 mg/dL Troponin I High Sensitivity < 3 L </=34 ng/L Time of 1ST Reevaluation: 15:30 Reevaluation 1ST: Unchanged Patient Education/Counseling: Diagnosis, Treatment, Prognosis Family Education/Counseling: No Family Present SEPSIS Sepsis Screen Date sepsis recognized/suspect: Sep 06, 2025 Time Sepsis recognized/suspect: 1413 Recent Procedure: No On Antibiotic Therapy: No Respiratory Rate >20: No Heart Rate >90: Yes Temp<36 C (96.8 F) or >38.3 C: No SBP <90 or MAP <65 mmHG: No New Acute Mental Status Change: No Is the patient on CPAP, BIPAP,: No Physician Orders Electrocardigram (09/06/25 14:17) Troponin-I Hs (09/06/25 15:17) Troponin-I Hs (09/06/25 17:17) Electrocardigram (09/06/25 15:17) Electrocardigram (09/06/25 17:17) Vital Signs Date Time Temp Pulse Resp B/P (MAP) Pulse Ox O2 Delivery O2 Flow Rate FiO2 09/06/25 14:14 98.2 105 20 103/60 97 98.2 Laboratory Tests Test 09/06/25 14:28 White Blood Count 4.6 10^3/uL (4.4-10.8) # Departure 1 Departure Time of Disposition: 15:35 Impression: Primary Impression: Acute and chronic respiratory failure Additional Impressions: COPD (chronic obstructive pulmonary disease) Bipolar disorder Schizophrenia Disposition: 30 STILL A PATIENT Condition: Fair Critical Care Note Critical Care Time?: No Stability Stability form required: No MAGI COHN RESIDENT Sep 06, 2025 15:32
[2025-09-07] MEDS ORDERED: AZIT-43 PO (16:07)
[2025-09-07] MEDS ORDERED: GUAI600T78 PO (16:07)
[2025-09-07] MEDS ORDERED: AUG875T PO (16:38)
== END 2025-09-06 18:00 | disposition still patient (30) ==
LOC: EDBD 14:08 → ER 14:08
DX: J96.20 Acute and chronic respiratory failure, unspecified whether with hypoxia or hypercapnia (principal); J44.89 Other specified chronic obstructive pulmonary disease; F20.9 Schizophrenia, unspecified; F31.9 Bipolar disorder, unspecified; F17.210 Nicotine dependence, cigarettes, uncomplicated; I10 Essential (primary) hypertension; R45.851 Suicidal ideations; Z88.1 Allergy status to other antibiotic agents; Z79.51 Long term (current) use of inhaled steroids; Z79.52 Long term (current) use of systemic steroids; Z79.899 Other long term (current) drug therapy
CPT/HCPCS: 36415; 80048; 84484; 85025

== ENCOUNTER 2025-09-07 13:39 | Emergency (ER) | payer OTHER ==
[~2025-09-07] VITALS: Ht 167.6 cm; Wt 56.8 kg
--- NOTE | 2025-09-07 15:08 | ED.PDOC ---
Psychiatric HPI Comments 55-year old with a hx of schizophrenia, COPD and multiple hospitalizations is brought in by ambulance from for a [facility] for chief complaint of back and chest pain, which began, this morning, while eating breakfast.' She uses oxygen is 4 L at baseline. No endorsed nausea, vomiting, shortness of breath, or further acute symptoms. Chief Complaint: Back Pain Time Seen by MD: 14:50 Primary Care Provider: UNKNOWN Reviewed Notes: Nurses Notes, Coal Or Ore Controller Notes Information Source: Patient Mode of Arrival: EMS Past Medical History PAST MEDICAL HISTORY: Asthma, COPD, HTN, Schizophrenia, UTI'S Surgical History: Denies all surgeries WAREHOUSE ORDER FILLER History: Denies all WAREHOUSE ORDER FILLER Hx Family History Family History: Reviewed,noncontributory to illness, Unknown Social History Smoker: Cigarettes, Less Than 1 Pack/Day Alcohol: Denies ETOH Use Drugs: Denies Drug Use Lives In: Assisted Care All Other Systems: Reviewed and Negative (As per HPI) Physical Exam General Appearance: No Apparent Distress, Normal HEENT: Normal ENT Inspection, Pharynx Normal, TMs Normal Neck: Full Range of Motion, Non-Tender, Normal, Normal Inspection Respiratory: Chest Non-Tender, Lungs Clear, No Accessory Muscle Use, No Respiratory Distress, Normal Breath Sounds Cardiovascular: No Edema, No JVD, No Murmur, No Gallop, Normal Peripheral Pulses, Regular Rate/Rhythm Breast Exam: Deferred Gastrointestinal: No Organomegaly, Non Tender, No Pulsatile Mass, Normal Bowel Sounds, Soft Genitalia: Deferred Pelvic: Deferred Rectal: Deferred Extremities: No calf tenderness, Normal capillary refill, Normal inspection, Normal range of motion, Non-tender, No pedal edema Musculoskeletal : Apperance: Normal Neurologic: Alert, loom tuner II-XII 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 Was a procedure done?: No Psych Differential Dx Psych. Differential Dx: Anxiety, Bipolar Disorder, Panic Disorder, Schizoprenia X-Ray, Labs, Meds, VS Vital Signs Date Time Temp Pulse Resp B/P (MAP) Pulse Ox O2 Delivery O2 Flow Rate FiO2 09/07/25 20:55 97.3 102 18 120/50 (73) 98 97.3 09/07/25 16:56 98 16 98 Nasal Cannula 4.0 12/23/25 16:56 102/54 (70) 98 09/07/25 13:55 98.6 89 18 92/63 94 98.6 X-Ray, Labs, Meds, VS Comment 55-year-old, schizophrenic female [facility] for chief complaint of back and chest pain Patient arrives alert and oriented, ABC's intact, afebrile, vital signs stable, saturating well in room air Diagnostic imaging ordered by me and results interpreted by radiology : Chest x-ray On reevaluation, patient had symptomatic improvement. Patient is stable for discharge at this time. External notes reviewed. Test results and diagnostic imaging interpreted. All diagnostic findings, discharge care, education and instructions provided Follow-up with PCP in 2 to 3 days Patient verbalized understanding and agreed to treatment plan Vital signs stable, afebrile, no acute distress noted Patient ambulatory with strong steady gait Advised to return precautions for any new or worsening symptoms, return to ER immediately for re-evaluation Patient is aware that the purpose of this visit was for an acute medical emergency requiring emergent stabilization. Chronic conditions, including malignancies have not been ruled out. Patient is instructed to follow up with PCP as directed and discharge instructions for continued care and workup. If unable to arrange follow-up, patient is to return to the emergency department for reassessment. Patient (parent or legal guardian if applicable) was given verbal and written discharge instructions and acknowledges understanding. Additional MDM Review of External, Non-ED records: External records reviewed. Discussion with independent historian (EMS, family) history obtained from the patient/parents (if applicable) at bedside Chronic conditions affecting care: None Social determinants of health affecting care: None Consideration of admission (observation or admission): I considered escalation of care to admission for this patient, however given the reassuring workup, the patient is safe for outpatient management. Discussion with the Radiology: No Tests considered but not performed: Prescription medication considered but not given: Time of 1ST Reevaluation: 15:20 Reevaluation 1ST: Unchanged Patient Education/Counseling: Diagnosis, Treatment, Need For Follow Up Family Education/Counseling: No Family Present Departure 1 Departure Time of Disposition: 16:06 Impression: Primary Impression: Viral pneumonia Disposition: 01 HOME / SELF CARE / HOMELESS Condition: Stable e-Prescriptions Amoxicillin & Pot Clavulanate (AUGMENTIN TABLET) 875 Mg Tb 875 MG PO BID for 7 Days, #14 TAB 0 Refills Prov: KATERINA BERNABE NP 09/07/25 Guaifenesin (Mucinex) 600 Mg Tab 1 TAB PO BID for 7 Days, #14 TAB 0 Refills Prov: KATERINA BERNABE NP 09/07/25 Discharged With: Self Critical Care Note Critical Care Time?: No Stability Stability form required: No Heart Score Heart Score: Heart Score Response (Comments) Value History N/A 0 EKG N/A 0 Age N/A 0 Risk Factors N/A 0 Troponin N/A 0 Total 0 I personally scribed for KATERINA BERNABE NP ([email or web address]) on 09/07/25 at 15:08. Electronically submitted by Devin Huerta ([email or web address]). KATERINA BERNABE NP Sep 07, 2025 15:08
--- NOTE | 2025-09-07 15:32 | DVH ---
CHEST RADIOGRAPH Indication: R/o pna Technique: Single frontal view of the chest was obtained COMPARISON: XY CHEST TWO VIEWS ROUTINE on DOS: 08/30/25, XY CHEST PORTABLE on DOS: 08/22/25, XY CHEST XRAY 1 VIEW on DOS: 08/20/25, XY CHEST XRAY 1 VIEW on DOS: 08/14/25, XY CHEST PORTABLE on DOS: 08/12/25 FINDINGS: Lines and Tubes: None Lungs: Increased interstital prominence. This may represent pulmonary vascular congestion and/or viral pneumonia. Lungs are hyperinflated suggestive of COPD. Pleura: No effusion. No pneumothorax. Cardiomediastinal contours: Unremarkable Bones: Unremarkable IMPRESSION: Increased interstitial prominence may represent pulmonary vascular congestion and/or viral pneumonia.
[2025-09-07] MEDS ORDERED: GUAI600T78 PO (16:07)
[2025-09-07] MEDS ORDERED: AZIT-43 PO (16:07)
[2025-09-07] MEDS ORDERED: AUG875T PO (16:38)
[2025-09-07 20:55] VITALS: BP 120/50; PULSE 102; RESP 18; TEMP 97.3; O2SAT 98
== END 2025-09-07 21:13 | disposition home or self-care (01) ==
LOC: EDBD 13:39 → ER 13:39
DX: J12.9 Viral pneumonia, unspecified (principal); F17.210 Nicotine dependence, cigarettes, uncomplicated; F20.9 Schizophrenia, unspecified; J44.0 Chronic obstructive pulmonary disease with (acute) lower respiratory infection; I10 Essential (primary) hypertension; Z87.440 Personal history of urinary (tract) infections
CPT/HCPCS: 71045

== ENCOUNTER 2025-09-08 17:09 | Emergency (ER) | payer OTHER ==
[~2025-09-08] VITALS: Ht 167.6 cm; Wt 55.0 kg
[~2025-09-08 17:09] MED LIST changes: +AUG875T PO; +AZIT-43 PO; +GUAI600T78 PO
--- NOTE | 2025-09-08 17:15 | ED.PDOC ---
History of Present Illness HPI Comments 55-year-old female BIBA with prior medical history of asthma, COPD( uses 2 L of O2 at home), hypertension, schizophrenia, UTI and a chief complaint of shortness a breath. EMS report on getting a cough in the patient for shortness a breath and when they arrived on scene the patient was not using her O2 satting at 70% room air. In route to the ER EMS gave the patient 2 L of O2 via NC which brought the satting percentage up to 97%. Patient has been here for the past three days since Saturday for similar symptoms the keeps on leaving AMA . Note that the patient keeps on turning off her O2 tank or messing with it. Denies any other symptoms at this time. Denies chills, fever, N/V/D, CP. No other associated symptoms, modifiers, recent injuries or sick contacts present at this time. Time Seen by MD: 16:45 Primary Care Provider: UNKNOWN Reviewed Notes: Nurses Notes, Ironer Or Presser Notes, Medications, Allergies Allergies: Coded Allergies: Azithromycin (Verified Allergy, Severe, 08/02/25) Lactose (Verified Allergy, Severe, 11/15/24) Erythromycin (Verified Allergy, Intermediate, 07/19/25) Home Meds Active Scripts Amoxicillin & Pot Clavulanate (AUGMENTIN TABLET) 875 Mg Tb, 875 MG PO BID for 7 Days, #14 TAB 0 Refills Prov:KATERINA BERNABE NP 09/07/25 Guaifenesin (Mucinex) 600 Mg Tab, 1 TAB PO BID for 7 Days, #14 TAB 0 Refills Prov:KATERINA BERNABE NP 09/07/25 Gabapentin (Once-Daily) (Gabapentin) 300 Mg Tab, 300 MG PO Q6HP PRN, #60 TAB Prov:MANDY OJEDA MD 08/15/25 Ondansetron Odt 4MG Tab (ZOFRAN PO) 4 Mg Tb, 4 MG PO Q6HP PRN, #30 TAB ODT TAB-DISSOLVE IN MOUTH, THEN SWALLOW Prov:MANDY OJEDA MD 08/15/25 Azithromycin (Azithromycin) 500 Mg Tab, 1 TAB PO DAILY for 3 Days, #3 TAB Prov:MANDY OJEDA MD 08/14/25 Prednisone (Prednisone) 20 Mg Tab, 20 MG PO BID for 5 Days, #10 TAB Prov:MANDY OJEDA MD 08/14/25 Albuterol Sulfate (Albuterol Sulfate Hfa) 108 Mcg/Act Aer, 108 MCG IN Q6HP PRN, #1 AER Prov:MANDY OJEDA MD 08/14/25 Prednisone (Prednisone) 20 Mg Tab, 20 MG PO BID for 5 Days, #10 TAB Prov:MANDY OJEDA MD 08/12/25 Azithromycin (Azithromycin) 500 Mg Tab, 1 TAB PO DAILY for 3 Days, #3 TAB Prov:MANDY OJEDA MD 08/12/25 Albuterol Sulfate (Albuterol Sulfate Hfa) 108 Mcg/Act Aer, 108 MCG IN Q6HP PRN, #1 AER 3 Refills Prov:MANDY OJEDA MD 08/12/25 Acetaminophen (Acetaminophen) 500 Mg Tab, 500 MG PO Q4HPRN, #30 TAB 0 Refills Prov:KENTON PARTIDA 08/12/25 Sulfamethoxazole W/Trimethopri (Bactrim Ds Tablet) 1 Tab Tb, 1 TAB PO BID for 7 Days, #14 TAB 0 Refills Prov:KENTON PARTIDA 08/12/25 Benzonatate (Benzonatate) 100 Mg Cap, 1 CAP PO TID for 30 Days, #30 CAP Prov:ADAM SU DO 08/10/25 Quetiapine Fumerate (QUETIAPINE FUMARATE) 100 Mg Tab, 100 MG PO BID for 30 Days, #60 TAB 5 Refills Prov:ADAM SU DO 08/10/25 Ipratropium-Albuterol (COMBIVENT RESPIMAT) Respimat Aer, 1 PUFF IN Q4HP PRN, #1 AER Prov:KEYUR BEAVER MD 08/08/25 Prednisone (Prednisone) 20 Mg Tab, 20 MG PO DAILY for 5 Days, #5 MG Prov:KEYUR BEAVER MD 08/08/25 Albuterol Sulfate (Ventolin) 2 Mg/5 Ml Sr, 5 ML PO TID PRN for 30 Days, #150 ML 3 Refills Prov:ADAM SU DO 07/21/25 Loperamide Hcl (Imodium) 2 Mg Cp, 2 MG PO Q6HPRN PRN for 30 Days, #10 CAP Prov:JOYA PLATT NP 06/22/25 Divalproex Sodium (Divalproex Sodium) 500 Mg Tab, 500 MG PO BID for 30 Days, #60 MG Prov:JOYA PLATT BRISTLE MACHINE OPERATOR 05/19/25 Haloperidol (Haldol) 5 Mg Tb, 3 MG PO BID for 30 Days, #60 MG Prov:JOYA PLATT BRISTLE MACHINE OPERATOR 05/19/25 Benztropine Mesylate (Benztropine Mesylate) 1 Mg Tab, 1 MG PO BID for 30 Days, #60 MG Prov:JOYA PLATT BRISTLE MACHINE OPERATOR 05/19/25 Trazodone Hcl (Trazodone Hcl) 50 Mg Tab, 75 MG PO HS for 30 Days, #45 MG Prov:JOYA PLATT BRISTLE MACHINE OPERATOR 05/19/25 Reported Medications Haloperidol (Haldol) 5 Mg Tb, 5 MG PO BID, MG 07/19/25 Ondansetron Odt 4MG Tab (ZOFRAN PO) 4 Mg Tb, 4 MG PO, TAB ODT TAB-DISSOLVE IN MOUTH, THEN SWALLOW 07/16/25 Naproxen (NAPROSYN TABLET) 500 Mg Tb, 1 TAB PO BID, #60 TAB 1 Refill 07/16/25 Acetaminophen (Tylenol Extra Strength) 500 Mg Tab, 500 MG PO, TAB 07/16/25 Fluticasone-Salmeterol (Advair Diskus 250/50) 1 Puff Ih, 1 PUFF INH BID, #3 INHALER 3 Refills 07/16/25 Dextromethorphan-Guaifenesin (Tussin Dm Cough & Chest C 20-200 mg/20Ml) 1 Liq Liq, 1 LIQ PO, LIQ 07/16/25 Quetiapine Fumerate (Seroquel) 50 Mg Tab, 1 TAB PO QPM, #30 TAB 2 Refills 07/16/25 Pantoprazole Sodium (PANTOPRAZOLE SODIUM) 40 Mg Inj, 40 MG PO DAILY, INJ 07/16/25 Discontinued Scripts Azithromycin (Azithromycin) 250 Mg Tab, 250 MG PO DAILY MDD 500 for 5 Days, #6 TAB 0 Refills 2 TABLETS ORALLY ON DAY ONE, THEN 1 TABLET ORALLY DAILY FOR 4 DAYS Prov:KURT BERNABEO Dorcas BRISTLE MACHINE OPERATOR 09/07/25 Information Source: Patient, Emergency Med Personnel Mode of Arrival: EMS Severity: Moderate Timing: Came on: Suddenly Duration: Since onset Prehospital treatment: None Past Medical History PAST MEDICAL HISTORY: Asthma, COPD (Uses 2 L of O2 at home), HTN, Schizo phrenia, UTI'S Surgical History: Denies all surgeries NET MENDER History: Denies all NET MENDER Hx Family History Family History: Reviewed,noncontributory to illness, Unknown Social History Smoker: Cigarettes, Less Than 1 Pack/Day Alcohol: Denies ETOH Use Drugs: Denies Drug Use Lives In: Assisted Care Constitutional: denies: chills, diaphoresis, fatigue, fever, malaise, sweats, weakness, others EENTM: denies: blurred vision, double vision, ear bleeding, ear discharge, ear drainage, ear pain, ear ringing, eye pain, eye redness, hearing loss, mouth pain, mouth swelling, nasal discharge, nose bleeding, nose congestion, nose pain, photophobia, tearing, throat pain, throat swelling, voice changes, others Respiratory: reports: SOB at rest, shortness of breath; denies: cough, hemoptysis, orthopnea, SOB with excertion, stridor, wheezing, others Cardiovascular: denies: chest pain, dizzy spells, diaphoresis, Dyspnea on exertion, edema, irregular heart beat, left arm pain, lightheadedness, palpitations, PND, syncope, others Gastrointestinal: denies: abdomen distended, abdominal pain, blood streaked bowels, constipated, diarrhea, dysphagia, difficulty swallowing, hematemesis, melena, nausea, poor appetite, poor fluid intake, rectal bleeding, rectal pain, vomiting, others Genitourinary: denies: abnormal vagina bleeding, burning, dyspareunia, dysuria, flank pain, frequency, hematuria, incontinence, pain, , vagina discharge, urgency, others Neurological: denies: dizziness, fainting, headache, left sided numbness, left sided weakness, numbness, paresthesia, pre-existing deficit, right sided numbness, right sided weakness, seizure, speech problems, tingling, tremors, weakness, others Musculoskeletal: denies: back pain, gout, joint pain, joint swelling, muscle pain, muscle stiffness, neck pain, others Integumetry: denies: bruises, change in color, change in hair/nails, dryness, laceration, lesions, lumps, rash, wounds, others Allergic/Immunocompromised: denies: Difficulty Healing, Frequent Infections, Hives, Itching, others Hematologic/Lymphatic: denies: anemia, blood clots, easy bleeding, easy bruising, swollen glands, others Endocrine: denies: excessive hunger, excessive sweating, excessive thirst, excessive urination, flushing, intolerance to cold, intolerance to heat, unexplained weight gain, unexplained weight loss, others Psychiatric: denies: anxiety, bipolar disorder, depression, hopeless, panic disorder, schizophrenia, sleepless, suicidal, others All Other Systems: Reviewed and Negative Physical Exam General Appearance: Moderate Distress, Normal HEENT: Normal ENT Inspection, Pharynx Normal, TMs Normal Neck: Full Range of Motion, Non-Tender, Normal, Normal Inspection Respiratory: Chest Non-Tender, Lungs Clear, No Accessory Muscle Use, No Respiratory Distress, Normal Breath Sounds Cardiovascular: No Edema, No JVD, No Murmur, No Gallop, Normal Peripheral Pulses, Regular Rate/Rhythm Breast Exam: Deferred Gastrointestinal: No Organomegaly, Non Tender, No Pulsatile Mass, Normal Bowel Sounds, Soft Genitalia: Deferred Pelvic: Deferred Rectal: Deferred Extremities: No calf tenderness, Normal capillary refill, Normal inspection, Normal range of motion, Non-tender, No pedal edema Musculoskeletal : Apperance: Normal Neurologic: Alert, credit card analyst II-XII nml as Tested, No Motor Deficits, Normal Affect, Normal Mood, No Sensory Deficits Cerebellar Function: Normal Reflexes: Normal Skin: Dry, Normal Color, Warm Peripheral Pulses: 3+ Radial (R), 3+ Radial (L) Lymphatic: No Adenopathy Was a procedure done? Was a procedure done?: No Differential Dx Considerations may include: COPD X-Ray, Labs, Meds, VS Patient alert. No sign of distress. Uses oxygen. Vitals stable. She does remove her oxygen frequently. Continues to smoke cigarettes. Counseled patient on effects of smoking cigarettes for 15 minutes. No leg swelling. No increased respiratory rate. No shortness a breath. No chest pain. No acute process. Explained to the patient. Was told to follow up with her primary care physician. Was told to come back if there is any problem. Time of 1ST Reevaluation: 17:15 Reevaluation 1ST: Improved Patient Education/Counseling: Diagnosis, Treatment, Prognosis Family Education/Counseling: No Family Present Departure 1 Departure Time of Disposition: 17:22 Impression: Primary Impression: COPD with acute exacerbation Disposition: HOME / SELF CARE / HOMELESS Condition: Good Discharged With: Self Critical Care Note Critical Care Time?: No Stability Stability form required: No Heart Score Heart Score: Heart Score Response (Comments) Value History N/A 0 EKG N/A 0 Age N/A 0 Risk Factors N/A 0 Troponin N/A 0 Total 0 I personally scribed for CRISELDA PATRICK MD ([email or web address]) on 09/08/25 at 17:15. Electronically submitted by Carl Rosales ([email or web address]). CRISELDA PATRICK MD Sep 08, 2025 17:15
[2025-09-08 17:42] VITALS: BP 102/64; PULSE 90; RESP 18; TEMP 98; O2SAT 97
== END 2025-09-08 22:15 | disposition home or self-care (01) ==
LOC: ER 17:09 → EDUNIT# 17:09 → EDBD 17:09 → ER 22:15
DX: J44.1 Chronic obstructive pulmonary disease with (acute) exacerbation (principal); I10 Essential (primary) hypertension; F20.9 Schizophrenia, unspecified; F17.210 Nicotine dependence, cigarettes, uncomplicated; Z88.1 Allergy status to other antibiotic agents; Z79.899 Other long term (current) drug therapy

== ENCOUNTER 2025-09-09 15:50 | Emergency (ER) | payer OTHER ==
[~2025-09-09] VITALS: Ht 170.2 cm; Wt 50.0 kg
--- NOTE | 2025-09-09 16:14 | ED.PDOC ---
SOB-HPI HPI Comments 55-year-old female who presents to the ED via EMS for chief complaint of shortness a breath. Pt is resident at [facility] and has for the past three days since Saturday keeps pulling fire alarm and states she is short of breath and wants placement at another facility and EMS has been getting called. EMS notes today upon arrival, pt has 02 sat in the 70's and pt was placed on 2 L via nc and brought to the ED. PT comes to ED for similar symptoms and leaves AMA . Pt noted to turning off her O2 tank or messing with it. Denies any other symptoms at this time. Denies chills, fever, N/V/D, CP. No other associated symptoms, modifiers, recent injuries or sick contacts present at this time. Time Seen by MD: 16:12 Primary Care Provider: UNKNOWN Reviewed notes: Complaint Manager Notes, Medications, Allergies Information Source: Patient, Emergency Med Personnel Mode of Arrival: EMS Brought in by: EMS Past Medical History PAST MEDICAL HISTORY: Asthma, COPD, HTN, Schizophrenia, UTI'S Surgical History: Denies all surgeries BANKRUPTCY JUDGE History: Denies all BANKRUPTCY JUDGE Hx Family History Family History: Reviewed,noncontributory to illness, Unknown Social History Smoker: Cigarettes, Less Than 1 Pack/Day Alcohol: Denies ETOH Use Drugs: Denies Drug Use Lives In: Assisted Care Constitutional: denies: chills, diaphoresis, fatigue, fever, malaise, sweats, weakness, others EENTM: denies: blurred vision, double vision, ear bleeding, ear discharge, ear drainage, ear pain, ear ringing, eye pain, eye redness, hearing loss, mouth pain, mouth swelling, nasal discharge, nose bleeding, nose congestion, nose pa in, photophobia, tearing, throat pain, throat swelling, voice changes, others Respiratory: reports: shortness of breath; denies: cough, hemoptysis, orthopnea, SOB at rest, SOB with excertion, stridor, wheezing, others Cardiovascular: denies: chest pain, dizzy spells, diaphoresis, Dyspnea on exertion, edema, irregular heart beat, left arm pain, lightheadedness, palpitations, PND, syncope, others Gastrointestinal: denies: abdomen distended, abdominal pain, blood streaked bowels, constipated, diarrhea, dysphagia, difficulty swallowing, hematemesis, m lane, nausea, poor appetite, poor fluid intake, rectal bleeding, rectal pain, vomiting, others Genitourinary: denies: abnormal vagina bleeding, burning, dyspareunia, dysuria, flank pain, frequency, hematuria, incontinence, pain, , vagina discharge, urgency, others Neurological: denies: dizziness, fainting, headache, left sided numbness, left sided weakness, numbness, paresthesia, pre-existing deficit, right sided numbness, right sided weakness, seizure, speech problems, tingling, tremors, weakness, others Musculoskeletal: denies: back pain, gout, joint pain, joint swelling, muscle pain, muscle stiffness, neck pain, others Integumetry: denies: bruises, change in color, change in hair/nails, dryness, laceration, lesions, lumps, rash, wounds, others Allergic/Immunocompromised: denies: Difficulty Healing, Frequent Infections, Hives, Itching, others Hematologic/Lymphatic: denies: anemia, blood clots, easy bleeding, easy bruising, swollen glands, others Endocrine: denies: excessive hunger, excessive sweating, excessive thirst, excessive urination, flushing, intolerance to cold, intolerance to heat, unexpla ined weight gain, unexplained weight loss, others Psychiatric: denies: anxiety, bipolar disorder, depression, hopeless, panic disorder, schizophrenia, sleepless, suicidal, others All Other Systems: Reviewed and Negative Physical Exam General Appearance: Moderate Distress, Thin HEENT: Normal ENT Inspection, Pharynx Normal, TMs Normal Neck: Full Range of Motion, Non-Tender, Normal, Normal Inspection Respiratory: Chest Non-Tender, Lungs Clear, No Accessory Muscle Use, No Respiratory Distress, Normal Breath Sounds Cardiovascular: No Edema, No JVD, No Murmur, No Gallop, Normal Peripheral Pulses, Regular Rate/Rhythm Breast Exam: Deferred Gastrointestinal: No Organomegaly, Non Tender, No Pulsatile Mass, Normal Bowel Sounds, Soft Genitalia: Deferred Pelvic: Deferred Rectal: Deferred Extremities: No calf tenderness, Normal capillary refill, Normal inspection, Normal range of motion, Non-tender, No pedal edema Musculoskeletal : Apperance: Normal Neurologic: Alert, crew mess attendant II-XII nml as Tested, No Motor Deficits, Normal Affect, Normal Mood, No Sensory Deficits Cerebellar Function: NOT DONE Reflexes: NOT DONE Skin: Dry, Normal Color, Warm Peripheral Pulses: 3+ Radial (R), 3+ Radial (L) Lymphatic: No Adenopathy Was a procedure done? Was a procedure done?: No Differential Dx Differential Diagnosis: Anxiety, Asthma, Bronchitis, Cardiogenic Shock, CHF, COPD, Pneumonia, Pulmonary Embolism, Respiratory Distress X-Ray, Labs, Meds, VS Patient alert. Comes here frequently. Was seen yesterday. Vitals stable. She is supposed to be on oxygen. She does not use. Noncompliant. No distress. Reviewed her previous visit. Was given steroid. Was given breathing treatment. Explained to the patient. Was told to follow up with her primary care physician. Was told to come back if there is any problem. Time of 1ST Reevaluation: 16:50 Reevaluation 1ST: Improved Patient Education/Counseling: Diagnosis, Treatment Family Education/Counseling: No Family Present Departure 1 Departure Time of Disposition: 16:29 Impression: Primary Impression: COPD exacerbation Disposition: 01 HOME / SELF CARE / HOMELESS Condition: Good Discharged With: Self Critical Care Note Critical Care Time?: No Stability Stability form required: No Heart Score Heart Score: Heart Score Response (Comments) Value History N/A 0 EKG N/A 0 Age N/A 0 Risk Factors N/A 0 Troponin N/A 0 Total 0 I personally scribed for CRISELDA PATRICK MD ([email or web address]) on 09/09/25 at 16:13. Electronically submitted by Shell Jiménez ([email or web address]). CRISELDA PTARICK MD Sep 09, 2025 16:13
[2025-09-09] MEDS: ALBUTEROL SULF 2.5 MG/0.5ML(0.5%) NEB SOLN NEB ONE (16:46)
[2025-09-09] MEDS: IPRATROPIUM BROM 0.5 MG/2.5ML INH SOL NEB ONE (16:46)
[2025-09-09 18:25] VITALS: BP 98/60; PULSE 97; RESP 20; TEMP 97.8; O2SAT 99
[2025-09-09] MEDS: methylPREDNISolone SOD SUCC 125 MG/2 ML VL IM ONE (18:36)
== END 2025-09-09 20:10 | disposition home or self-care (01) ==
LOC: ER 15:50 → EDBD 15:50 → ER 20:10
DX: J44.1 Chronic obstructive pulmonary disease with (acute) exacerbation (principal); I10 Essential (primary) hypertension; F17.210 Nicotine dependence, cigarettes, uncomplicated; Z79.899 Other long term (current) drug therapy
CPT/HCPCS: 94640; 96372; 99283; J2919

== ENCOUNTER 2025-09-10 02:19 | Emergency (ER) | payer OTHER ==
[~2025-09-10] VITALS: Ht 165.1 cm; Wt 60.0 kg
[2025-09-10 02:19] VITALS: BP 130/69; PULSE 79; RESP 16; TEMP 98.7; O2SAT 98
[~2025-09-10 02:19] MED LIST changes: -AZIT-43 PO
--- NOTE | 2025-09-10 04:43 | ED.PDOC ---
History of Present Illness HPI Comments 55-year-old female who came to ER via EMS for failure to thrive. Per EMS, [facility], patient is seen here multiple times, and has a history of COPD schizophrenia. Patient complaining of back pains which has been going on for several years REVIEW OF SYSTEMS: General: No fever, no chills, or fatigue HEENT: No sore throat, no earache, no congestion, no neck pain. Cardiac: No chest pain. No palpitations. Lungs: No shortness of breath, no cough. GI: No nausea, no vomiting, no diarrhea, no constipation, no abdominal pain : No dysuria, frequency, or urgency. No hematuria. Musculoskeletal: No joint pain , no joint swelling, no extremity edema. (+) back pain Skin: No rash, no itching. Neuro: No headache, no dizziness, no weakness PHYSICAL EXAM: General: Awake, alert and oriented. No acute distress. Skin: Skin in warm, dry and intact without rashes or lesions. HEENT: The head is normocephalic and atraumatic. Conjunctivae are clear without exudates or hemorrhage. Sclera is non-icteric. Nasal cannula in place. Neck: Normal range of motion. No JVD. Cardiac: Regular rate Respiratory: No signs of respiratory distress. No Stridor. Neurological: The patient is awake, alert and oriented to person, place, and time with normal speech. Speech is clear. There is no facial asymmetry. Chief Complaint: Failure to Thrive Time Seen by MD: 04:43 Primary Care Provider: UNKNOWN Reviewed Notes: Nurses Notes Allergies: Coded Allergies: Azithromycin (Verified Allergy, Severe, 08/02/25) Lactose (Verified Allergy, Severe, 11/15/24) Erythromycin (Verified Allergy, Intermediate, 07/19/25) Home Meds Active Scripts Amoxicillin & Pot Clavulanate (AUGMENTIN TABLET) 875 Mg Tb, 875 MG PO BID for 7 Days, #14 TAB 0 Refills Prov:KATERINA BERNABE BROADCAST OPERATIONS DIRECTOR 09/07/25 Guaifenesin (Mucinex) 600 Mg Tab, 1 TAB PO BID for 7 Days, #14 TAB 0 Refills Prov:KATERINA BERNABE BROADCAST OPERATIONS DIRECTOR 09/07/25 Gabapentin (Once-Daily) (Gabapentin) 300 Mg Tab, 300 MG PO Q6HP PRN, #60 TAB Prov:MANDY OJEDA MD 08/15/25 Ondansetron Odt 4MG Tab (ZOFRAN PO) 4 Mg Tb, 4 MG PO Q6HP PRN, #30 TAB ODT TAB-DISSOLVE IN MOUTH, THEN SWALLOW Prov:MANDY OJEDA MD 08/15/25 Azithromycin (Azithromycin) 500 Mg Tab, 1 TAB PO DAILY for 3 Days, #3 TAB Prov:MANDY OJEDA MD 08/14/25 Prednisone (Prednisone) 20 Mg Tab, 20 MG PO BID for 5 Days, #10 TAB Prov:MANDY OJEDA MD 08/14/25 Albuterol Sulfate (Albuterol Sulfate Hfa) 108 Mcg/Act Aer, 108 MCG IN Q6HP PRN, #1 AER Prov:MANDY OJEDA MD 08/14/25 Prednisone (Prednisone) 20 Mg Tab, 20 MG PO BID for 5 Days, #10 TAB Prov:MANDY OJEDA MD 08/12/25 Azithromycin (Azithromycin) 500 Mg Tab, 1 TAB PO DAILY for 3 Days, #3 TAB Prov:MANDY OJEDA MD 08/12/25 Albuterol Sulfate (Albuterol Sulfate Hfa) 108 Mcg/Act Aer, 108 MCG IN Q6HP PRN, #1 AER 3 Refills Prov:MANDY OJEDA MD 08/12/25 Acetaminophen (Acetaminophen) 500 Mg Tab, 500 MG PO Q4HPRN, #30 TAB 0 Refills Prov:KENTON PARTIDA 08/12/25 Sulfamethoxazole W/Trimethopri (Bactrim Ds Tablet) 1 Tab Tb, 1 TAB PO BID for 7 Days, #14 TAB 0 Refills Prov:KENTON PARTIDA 08/12/25 Benzonatate (Benzonatate) 100 Mg Cap, 1 CAP PO TID for 30 Days, #30 CAP Prov:ADAM SU DO 08/10/25 Quetiapine Fumerate (QUETIAPINE FUMARATE) 100 Mg Tab, 100 MG PO BID for 30 Days, #60 TAB 5 Refills Prov:ADAM SU DO 08/10/25 Ipratropium-Albuterol (COMBIVENT RESPIMAT) Respimat Aer, 1 PUFF IN Q4HP PRN, #1 AER Prov:KEYUR BEAVER MD 08/08/25 Prednisone (Prednisone) 20 Mg Tab, 20 MG PO DAILY for 5 Days, #5 MG Prov:KEYUR BEAVER MD 08/08/25 Albuterol Sulfate (Ventolin) 2 Mg/5 Ml Sr, 5 ML PO TID PRN for 30 Days, #150 ML 3 Refills Prov:ADAM SU DO 07/21/25 Loperamide Hcl (Imodium) 2 Mg Cp, 2 MG PO Q6HPRN PRN for 30 Days, #10 CAP Prov:JOYA PLATT NP 06/22/25 Divalproex Sodium (Divalproex Sodium) 500 Mg Tab, 500 MG PO BID for 30 Days, #60 MG Prov:JOYA PLATT NP 05/19/25 Haloperidol (Haldol) 5 Mg Tb, 3 MG PO BID for 30 Days, #60 MG Prov:JOYA PLATT NP 05/19/25 Benztropine Mesylate (Benztropine Mesylate) 1 Mg Tab, 1 MG PO BID for 30 Days, #60 MG Prov:JOYA PLATT NP 05/19/25 Trazodone Hcl (Trazodone Hcl) 50 Mg Tab, 75 MG PO HS for 30 Days, #45 MG Prov:JOYA PLATT NP 05/19/25 Reported Medications Haloperidol (Haldol) 5 Mg Tb, 5 MG PO BID, MG 07/19/25 Ondansetron Odt 4MG Tab (ZOFRAN PO) 4 Mg Tb, 4 MG PO, TAB ODT TAB-DISSOLVE IN MOUTH, THEN SWALLOW 07/16/25 Naproxen (NAPROSYN TABLET) 500 Mg Tb, 1 TAB PO BID, #60 TAB 1 Refill 07/16/25 Acetaminophen (Tylenol Extra Strength) 500 Mg Tab, 500 MG PO, TAB 07/16/25 Fluticasone-Salmeterol (Advair Diskus 250/50) 1 Puff Ih, 1 PUFF INH BID, #3 INHALER 3 Refills 07/16/25 Dextromethorphan-Guaifenesin (Tussin Dm Cough & Chest C 20-200 mg/20Ml) 1 Liq Liq, 1 LIQ PO, LIQ 07/16/25 Quetiapine Fumerate (Seroquel) 50 Mg Tab, 1 TAB PO QPM, #30 TAB 2 Refills 07/16/25 Pantoprazole Sodium (PANTOPRAZOLE SODIUM) 40 Mg Inj, 40 MG PO DAILY, INJ 07/16/25 Discontinued Scripts Azithromycin (Azithromycin) 250 Mg Tab, 250 MG PO DAILY MDD 500 for 5 Days, #6 TAB 0 Refills 2 TABLETS ORALLY ON DAY ONE, THEN 1 TABLET ORALLY DAILY FOR 4 DAYS Prov:KATERINA BERNABE BROADCAST OPERATIONS DIRECTOR 09/07/25 Information Source: Patient Mode of Arrival: EMS Past Medical History PAST MEDICAL HISTORY: Asthma, COPD, HTN, Schizophrenia, UTI'S Surgical History: Denies all surgeries TRAY DRIER History: Denies all TRAY DRIER Hx Family History Family History: Reviewed,noncontributory to illness, Unknown Social History Smoker: Cigarettes, Less Than 1 Pack/Day Alcohol: Denies ETOH Use Drugs: Denies Drug Use Lives In: Assisted Care Was a procedure done? Was a procedure done?: No Differential Dx Considerations may include: Anemia, electrolyte imbalance, COPD, schizophrenia, back pain, malingering, other X-Ray, Labs, Meds, VS Vital Signs Date Time Temp Pulse Resp B/P (MAP) Pulse Ox O2 Delivery O2 Flow Rate FiO2 09/10/25 02:19 98.7 79 16 130/69 98 98.7 Time of 1ST Reevaluation: 04:37 Reevaluation 1ST: Unchanged Patient Education/Counseling: Need For Follow Up Family Education/Counseling: No Family Present SEPSIS Sepsis Screen Date sepsis recognized/suspect: Sep 10, 2025 Time Sepsis recognized/suspect: 021 Recent Procedure: No On Antibiotic Therapy: No Respiratory Rate >20: No Heart Rate >90: No Temp<36 C (96.8 F) or >38.3 C: No SBP <90 or MAP <65 mmHG: No New Acute Mental Status Change: No Is the patient on CPAP, BIPAP,: No Vital Signs Date Time Temp Pulse Resp B/P (MAP) Pulse Ox O2 Delivery O2 Flow Rate FiO2 09/10/25 02:19 98.7 79 16 130/69 98 98.7 Departure 1 Departure Time of Disposition: 04:48 Impression: Primary Impression: Chronic back pain Disposition: 01 HOME / SELF CARE / HOMELESS Condition: Stable Additional Instructions: ED DISCHARGE INSTRUCTIONS Instructions: Please read all instructions provided in this packet carefully. Although you have been discharged from the Emergency Department, this does not mean that you have a "clean bill of health". No definitive diagnosis for your symptoms has been made today. It is possible that you are in the process of developing a serious illness. This is why you must return to the ED without fail if any new or worsening symptoms (especially if your symptoms include chest pain, trouble breathing, abdominal pain, fever, headache, confusion, trouble se eing, or trouble walking) It is also very important that you see a primary care provider (PCP) within the next 3-5 days to follow up. If you are unable to get an appointment, return to the ED for re-evaluation. Back Pain: Care Instructions Overview In most cases, there isn't a clear cause for back pain. It may be related to problems with muscles and ligaments of the back. It may also be related to problems with the nerves, discs, or bones of the back. Moving, lifting, standing, sitting, or sleeping in an awkward way can strain the back. Arthritis is another cause of back pain. Although it may hurt a lot, back pain usually improves on its own within several weeks. Most people recover in 12 weeks or less. Using self-care, such as ice or heat and light activity (like walking) may help you feel better sooner. Follow-up care is a quiros part of your treatment and safety. Be sure to make and go to all appointments, and call your doctor if you are having problems. It's also a good idea to know your test results and keep a list of the medicines you take. How can you care for yourself at home? Sit or lie in positions that are most comfortable and reduce your pain. Try one of these positions when you lie down: Lie on your back with your knees bent and supported by pillows. Lie on the floor with your legs on the seat of a sofa or chair. Lie on your side with your knees and hips bent and a pillow between your legs. Lie on your stomach if it does not make pain worse. Do not sit up in bed, and avoid soft couches and twisted positions. Bed rest can help relieve pain at first, but it delays healing. Avoid bed rest after the first day of back pain. Change positions every 30 minutes. If you must sit for long periods of time, take breaks from sitting. Get up and walk around, or lie in a comfortable position. Try using a heating pad on a low or medium setting for 15 to 20 minutes every 2 or 3 hours. Try a warm shower in place of one session with the heating pad. You can also try an ice pack for 10 to 15 minutes every 2 to 3 hours. Put a thin cloth between the ice pack and your skin. Take pain medicines exactly as directed. If the doctor gave you a prescription medicine for pain, take it as prescribed. If you are not taking a prescription pain medicine, ask your doctor if you can take an fevs-vlt-yfrmlay medicine. Take short walks several times a day. You can start with 5 to 10 minutes, 3 or 4 times a day, and work up to longer walks. Walk on level surfaces and avoid hills and stairs until your back is better. Return to work and other activities as soon as you can. Continued rest without activity is usually not good for your back. To prevent future back pain, do exercises to stretch and strengthen your back and stomach. Learn how to use good posture, safe lifting techniques, and proper body mechanics. When should you call for help? Call your doctor now or seek immediate medical care if: You have new or worsening numbness in your legs. You have new or worsening weakness in your legs. (This could make it hard to stand up.) You lose control of your bladder or bowels. Watch closely for changes in your health, and be sure to contact your doctor if: You have a fever, lose weight, or don't feel well. You do not get better as expected. Credits for Back Pain: Care Instructions Current as of: April 01, 2023 Author: [employer], [employer] Staff Clinical Review Board All [employer] education is reviewed by a team that includes physicians, nurses, advanced practitioners, registered dieticians, and other healthcare professionals. Comments 55-year-old female with a multiple, frequent visits to the emergency department. She initially had no complaint on arrival to the ED. She then reported back pain which has been ongoing for the past 3 years. No new or recent injury. Patient felt stable for discharge back to assisted living facility. Critical Care Note Critical Care Time?: No Stability Stability form required: No Heart Score Heart Score: Heart Score Response (Comments) Value History N/A 0 EKG N/A 0 Age N/A 0 Risk Factors N/A 0 Troponin N/A 0 Total 0 I personally scribed for ANGELITO REYES MD ([email or web address]) on 09/10/25 at 04:43. Electronically submitted by Evelio Caceres ([facility]). ANGELITO REYES MD Sep 10, 2025 04:43
[2025-09-10] MEDS: ACETAMINOPHEN 325 MG TAB PO ONE (05:54)
== END 2025-09-10 05:55 | disposition home or self-care (01) ==
LOC: EDBD 02:19 → ER 02:19
DX: G89.29 Other chronic pain (principal); I10 Essential (primary) hypertension; J44.89 Other specified chronic obstructive pulmonary disease; F20.9 Schizophrenia, unspecified; F17.210 Nicotine dependence, cigarettes, uncomplicated; Z79.899 Other long term (current) drug therapy; Z88.1 Allergy status to other antibiotic agents; Z87.440 Personal history of urinary (tract) infections; Z79.51 Long term (current) use of inhaled steroids; Z79.52 Long term (current) use of systemic steroids

== ENCOUNTER 2025-09-10 14:42 | Emergency (ER) | payer OTHER ==
[~2025-09-10] VITALS: Ht 170.2 cm; Wt 65.9 kg
[2025-09-10 14:51] VITALS: BP 99/60; PULSE 106; RESP 18; TEMP 97.6; O2SAT 100
--- NOTE | 2025-09-10 14:51 | ED.PDOC ---
History of Present Illness HPI Comments 55 year old female with PMHx asthma,COPD, HTN, schizophrenia presents to the ED with a chief complaint of anxiety. [facility], has been seen in this ED several times, was discharged this morning. Patient is currently experiencing anxiety. No other symptoms or modifying factors present at this time. Time Seen by : 14:45 Primary Care Provider: UNKNOWN Reviewed Notes: Medications, Allergies Allergies: Coded Allergies: Azithromycin (Verified Allergy, Severe, 08/02/25) Lactose (Verified Allergy, Severe, 11/15/24) Erythromycin (Verified Allergy, Intermediate, 07/19/25) Home Meds Active Scripts Amoxicillin & Pot Clavulanate (AUGMENTIN TABLET) 875 Mg Tb, 875 MG PO BID for 7 Days, #14 TAB 0 Refills Prov:KATERINA BERNABE NP 09/07/25 Guaifenesin (Mucinex) 600 Mg Tab, 1 TAB PO BID for 7 Days, #14 TAB 0 Refills Prov:KATERINA BERNABE NP 09/07/25 Gabapentin (Once-Daily) (Gabapentin) 300 Mg Tab, 300 MG PO Q6HP PRN, #60 TAB Prov:MANDY OJEDA MD 08/15/25 Ondansetron Odt 4MG Tab (ZOFRAN PO) 4 Mg Tb, 4 MG PO Q6HP PRN, #30 TAB ODT TAB-DISSOLVE IN MOUTH, THEN SWALLOW Prov:MANDY OJEDA MD 08/15/25 Azithromycin (Azithromycin) 500 Mg Tab, 1 TAB PO DAILY for 3 Days, #3 TAB Prov:MANDY OJEDA MD 08/14/25 Prednisone (Prednisone) 20 Mg Tab, 20 MG PO BID for 5 Days, #10 TAB Prov:MANDY OJEDA MD 08/14/25 Albuterol Sulfate (Albuterol Sulfate Hfa) 108 Mcg/Act Aer, 108 MCG IN Q6HP PRN, #1 AER Prov:MANDY OJEDA MD 08/14/25 Prednisone (Prednisone) 20 Mg Tab, 20 MG PO BID for 5 Days, #10 TAB Prov:MANDY OJEDA MD 08/12/25 Azithromycin (Azithromycin) 500 Mg Tab, 1 TAB PO DAILY for 3 Days, #3 TAB Prov:MANDY OJEDA MD 08/12/25 Albuterol Sulfate (Albuterol Sulfate Hfa) 108 Mcg/Act Aer, 108 MCG IN Q6HP PRN, #1 AER 3 Refills Prov:MANDY OJEDA MD 08/12/25 Acetaminophen (Acetaminophen) 500 Mg Tab, 500 MG PO Q4HPRN, #30 TAB 0 Refills Prov:KENTON PARTIDA 08/12/25 Sulfamethoxazole W/Trimethopri (Bactrim Ds Tablet) 1 Tab Tb, 1 TAB PO BID for 7 Days, #14 TAB 0 Refills Prov:KENTON PARTIDA 08/12/25 Benzonatate (Benzonatate) 100 Mg Cap, 1 CAP PO TID for 30 Days, #30 CAP Prov:ADAM SU DO 08/10/25 Quetiapine Fumerate (QUETIAPINE FUMARATE) 100 Mg Tab, 100 MG PO BID for 30 Days, #60 TAB 5 Refills Prov:ADAM SU DO 08/10/25 Ipratropium-Albuterol (COMBIVENT RESPIMAT) Respimat Aer, 1 PUFF IN Q4HP PRN, #1 AER Prov:KEYUR BEAVER MD 08/08/25 Prednisone (Prednisone) 20 Mg Tab, 20 MG PO DAILY for 5 Days, #5 MG Prov:KEYUR BEAVER MD 08/08/25 Albuterol Sulfate (Ventolin) 2 Mg/5 Ml Sr, 5 ML PO TID PRN for 30 Days, #150 ML 3 Refills Prov:ADAM SU DO 07/21/25 Loperamide Hcl (Imodium) 2 Mg Cp, 2 MG PO Q6HPRN PRN for 30 Days, #10 CAP Prov:JOYA PLATT NP 06/22/25 Divalproex Sodium (Divalproex Sodium) 500 Mg Tab, 500 MG PO BID for 30 Days, #60 MG Prov:JOYA PLATT NP 05/19/25 Haloperidol (Haldol) 5 Mg Tb, 3 MG PO BID for 30 Days, #60 MG Prov:JOYA PLATT NP 05/19/25 Benztropine Mesylate (Benztropine Mesylate) 1 Mg Tab, 1 MG PO BID for 30 Days, #60 MG Prov:JOYA PLATT NP 05/19/25 Trazodone Hcl (Trazodone Hcl) 50 Mg Tab, 75 MG PO HS for 30 Days, #45 MG Prov:JOYA PLATT HEAD GROWER 05/19/25 Reported Medications Haloperidol (Haldol) 5 Mg Tb, 5 MG PO BID, MG 07/19/25 Ondansetron Odt 4MG Tab (ZOFRAN PO) 4 Mg Tb, 4 MG PO, TAB ODT TAB-DISSOLVE IN MOUTH, THEN SWALLOW 07/16/25 Naproxen (NAPROSYN TABLET) 500 Mg Tb, 1 TAB PO BID, #60 TAB 1 Refill 07/16/25 Acetaminophen (Tylenol Extra Strength) 500 Mg Tab, 500 MG PO, TAB 07/16/25 Fluticasone-Salmeterol (Advair Diskus 250/50) 1 Puff Ih, 1 PUFF INH BID, #3 INHALER 3 Refills 07/16/25 Dextromethorphan-Guaifenesin (Tussin Dm Cough & Chest C 20-200 mg/20Ml) 1 Liq Liq, 1 LIQ PO, LIQ 07/16/25 Quetiapine Fumerate (Seroquel) 50 Mg Tab, 1 TAB PO QPM, #30 TAB 2 Refills 07/16/25 Pantoprazole Sodium (PANTOPRAZOLE SODIUM) 40 Mg Inj, 40 MG PO DAILY, INJ 07/16/25 Discontinued Scripts Azithromycin (Azithromycin) 250 Mg Tab, 250 MG PO DAILY MDD 500 for 5 Days, #6 TAB 0 Refills 2 TABLETS ORALLY ON DAY ONE, THEN 1 TABLET ORALLY DAILY FOR 4 DAYS Prov:KATERINA BERNABE Dorcas HEAD GROWER 09/07/25 Information Source: Patient, Emergency Med Personnel Mode of Arrival: EMS Severity: Moderate Timing: Hours Duration: Since onset Prehospital treatment: None Past Medical History PAST MEDICAL HISTORY: Asthma, COPD, HTN, Schizophrenia, UTI'S Surgical History: Denies all surgeries SILL WORKER History: Denies all SILL WORKER Hx Family History Family History: Reviewed,noncontributory to illness, Unknown Social History Smoker: Cigarettes, Less Than 1 Pack/Day Alcohol: Denies ETOH Use Drugs: Denies Drug Use Lives In: Assisted Care Constitutional: denies: chills, diaphoresis, fatigue, fever, malaise, sweats, weakness, others EENTM: denies: blurred vision, double vision, ear bleeding, ear discharge, ear drainage, ear pain, ear ringing, eye pain, eye redness, hearing loss, mouth pain, mouth swelling, nasal discharge, nose bleeding, nose congestion, nose pain, photophobia, tearing, throat pain, throat swelling, voice changes, others Respiratory: denies: cough, hemoptysis, orthopnea, SOB at rest, shortness of breath, SOB with excertion, stridor, wheezing, others Cardiovascular: denies: chest pain, dizzy spells, diaphoresis, Dyspnea on exertion, edema, irregular heart beat, left arm pain, lightheadedness, palpitations, PND, syncope, others Gastrointestinal: denies: abdomen distended, abdominal pain, blood streaked bowels, constipated, diarrhea, dysphagia, difficulty swallowing, hematemesis, melena, nausea, poor appetite, poor fluid intake, rectal bleeding, rectal pain, vomiting, others Genitourinary: denies: abnormal vagina bleeding, burning, dyspareunia, dysuria, flank pain, frequency, hematuria, incontinence, pain, , vagina discharge, urgency, others Neurological: denies: dizziness, fainting, headache, left sided numbness, left sided weakness, numbness, paresthesia, pre-existing deficit, right sided numbness, right sided weakness, seizure, speech problems, tingling, tremors, weakness, others Musculoskeletal: denies: back pain, gout, joint pain, joint swelling, muscle pain, muscle stiffness, neck pain, others Integumetry: denies: bruises, change in color, change in hair/nails, dryness, laceration, lesions, lumps, rash, wounds, others Allergic/Immunocompromised: denies: Difficulty Healing, Frequent Infections, Hives, Itching, others Hematologic/Lymphatic: denies: anemia, blood clots, easy bleeding, easy bruising, swollen glands, others Endocrine: denies: excessive hunger, excessive sweating, excessive thirst, excessive urination, flushing, intolerance to cold, intolerance to heat, unexplained weight gain, unexplained weight loss, others Psychiatric: reports: anxiety; denies: bipolar disorder, depression, hopeless, panic disorder, schizophrenia, sleepless, suicidal, others All Other Systems: Reviewed and Negative Physical Exam General Appearance: Moderate Distress, Normal HEENT: Normal ENT Inspection, Pharynx Normal, TMs Normal Neck: Full Range of Motion, Non-Tender, Normal, Normal Inspection Respiratory: Chest Non-Tender, Lungs Clear, No Accessory Muscle Use, No Respiratory Distress, Normal Breath Sounds Cardiovascular: No Edema, No JVD, No Murmur, No Gallop, Normal Peripheral Pulses, Regular Rate/Rhythm Breast Exam: Deferred Gastrointestinal: No Organomegaly, Non Tender, No Pulsatile Mass, Normal Bowel Sounds, Soft Genitalia: Deferred Pelvic: Deferred Rectal: Deferred Extremities: No calf tenderness, Normal capillary refill, Normal inspection, Normal range of motion, Non-tender, No pedal edema Musculoskeletal : Apperance: Normal Neurologic: Alert, candlemaker II-XII nml as Tested, No Motor Deficits, Normal Affect, Normal Mood, No Sensory Deficits Cerebellar Function: Normal Reflexes: Normal Skin: Dry, Normal Color, Warm Peripheral Pulses: 3+ Radial (R), 3+ Radial (L) Lymphatic: No Adenopathy Was a procedure done? Was a procedure done?: No Differential Dx Considerations may include: COPD X-Ray, Labs, Meds, VS Vital Signs Date Time Temp Pulse Resp B/P (MAP) Pulse Ox O2 Delivery O2 Flow Rate FiO2 09/10/25 14:51 97.6 106 18 99/60 100 97.6 09/10/25 14:43 106 Patient alert. Came in because of anxiety. She is noncompliant with medication. Answering questions. She is noncompliant with using her oxygen. No leg swelling. No increase in respiratory rate. No chest pain. Saturation appropriate. Explained to the patient. Was told to follow up with her primary care physician. Was told to come back if there is any problem. Time of 1ST Reevaluation: 15:15 Reevaluation 1ST: Improved Patient Education/Counseling: Diagnosis, Treatment, Prognosis Family Education/Counseling: No Family Present SEPSIS Sepsis Screen Physician Orders Electrocardigram (09/10/25 14:52) Vital Signs Date Time Temp Pulse Resp B/P (MAP) Pulse Ox O2 Delivery O2 Flow Rate FiO2 09/10/25 14:51 97.6 106 18 99/60 100 97.6 09/10/25 14:43 106 Departure 1 Departure Time of Disposition: 16:33 Impression: Primary Impression: COPD (chronic obstructive pulmonary disease) Qualified Codes: J44.9 - Chronic obstructive pulmonary disease, unspecified Disposition: 01 HOME / SELF CARE / HOMELESS Condition: Good Discharged With: Self Critical Care Note Critical Care Time?: No Stability Stability form required: No Heart Score Heart Score: Heart Score Response (Comments) Value History N/A 0 EKG N/A 0 Age N/A 0 Risk Factors N/A 0 Troponin N/A 0 Total 0 I personally scribed for CRISELDA PATRICK MD ([email or web address]) on 09/10/25 at 14:51. Electronically submitted by Amber Qureshi ([email or web address]). CRISELDA PATRICK MD Sep 10, 2025 14:51
--- NOTE | 2025-09-13 19:59 | ECG ---
[facility] Test Date: 2025-09-10 Test Time: 14:43:19 Pat Name: NATIVIDAD URBAN Department: [facility] ED Patient ID: [facility]-[id number] Room: Gender: F Cryptologic Supervisor: COURTNEY : 1970 Requested By: CRISELDA PATRICK Order Number: [id number] Reading MD: Guanaco Camacho Measurements Intervals [place] Rate: 106 P: 88 OR: 131 QRS: 102 QRSD: 75 T: 54 QT: 317 QTc: 421 Interpretive Statements Sinus tachycardia Right axis deviation Electronically Signed On 09-16-2025 17:33:47 PST by Guanaco Camacho Please click the below link to view image of tracing.
== END 2025-09-10 22:55 | disposition home or self-care (01) ==
LOC: ER 14:42 → EDBD 14:42 → ER 22:55
DX: J44.89 Other specified chronic obstructive pulmonary disease (principal); I10 Essential (primary) hypertension; F41.9 Anxiety disorder, unspecified; F20.9 Schizophrenia, unspecified; F17.210 Nicotine dependence, cigarettes, uncomplicated; Z79.899 Other long term (current) drug therapy; Z88.1 Allergy status to other antibiotic agents; Z87.440 Personal history of urinary (tract) infections; Z79.52 Long term (current) use of systemic steroids; Z79.51 Long term (current) use of inhaled steroids
CPT/HCPCS: 93005

== ENCOUNTER 2025-09-12 21:11 | Inpatient (IN) | payer OTHER ==
[~2025-09-12] VITALS: Ht 157.5 cm; Wt 45.0 kg
[2025-09-12] MEDS: ALBUTEROL SULF 2.5 MG/0.5ML(0.5%) NEB SOLN NEB ONE (21:36)
[2025-09-12] MEDS: IPRATROPIUM BROM 0.5 MG/2.5ML INH SOL NEB ONE (21:36)
--- NOTE | 2025-09-12 21:59 | ED.PDOC ---
History of Present Illness HPI Comments 55 y/o F is BIBA from [facility] for c/c of shortness of breath and chest pain. Significant history of asthma, COPD, HTN, schizophrenia, UTI's, tobacco cigarette abuse, and frequent ED visits. 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 On scene, she began endorsin g on having trouble breathing and pain in her chest. Denial of any cough, congestion, fever, chills, or further acute symptoms. Patient was found on 94% on 4LPM NC. Chief Complaint: Shortness of Breath Time Seen by MD: 21:20 Primary Care Provider: UNKNOWN Reviewed Notes: Nurses Notes, Business Solution Analyst Notes, Medications, Allergies Allergies: Coded Allergies: Azithromycin (Verified Allergy, Severe, 08/02/25) Lactose (Verified Allergy, Severe, 11/15/24) Erythromycin (Verified Allergy, Intermediate, 07/19/25) Home Meds Active Scripts Amoxicillin & Pot Clavulanate (AUGMENTIN TABLET) 875 Mg Tb, 875 MG PO BID for 7 Days, #14 TAB 0 Refills Prov:KATERINA BERNABE NP 09/07/25 Guaifenesin (Mucinex) 600 Mg Tab, 1 TAB PO BID for 7 Days, #14 TAB 0 Refills Prov:KATERINA BERNABE NP 09/07/25 Gabapentin (Once-Daily) (Gabapentin) 300 Mg Tab, 300 MG PO Q6HP PRN, #60 TAB Prov:MANDY OJEDA MD 08/15/25 Ondansetron Odt 4MG Tab (ZOFRAN PO) 4 Mg Tb, 4 MG PO Q6HP PRN, #30 TAB ODT TAB-DISSOLVE IN MOUTH, THEN SWALLOW Prov:MANDY OJEDA MD 08/15/25 Azithromycin (Azithromycin) 500 Mg Tab, 1 TAB PO DAILY for 3 Days, #3 TAB Prov:MANDY OJEDA MD 08/14/25 Prednisone (Prednisone) 20 Mg Tab, 20 MG PO BID for 5 Days, #10 TAB Prov:MANDY OJEDA MD 08/14/25 Albuterol Sulfate (Albuterol Sulfate Hfa) 108 Mcg/Act Aer, 108 MCG IN Q6HP PRN, #1 AER Prov:MANDY OJEDA MD 08/14/25 Prednisone (Prednisone) 20 Mg Tab, 20 MG PO BID for 5 Days, #10 TAB Prov:MANDY JOEDA MD 08/12/25 Azithromycin (Azithromycin) 500 Mg Tab, 1 TAB PO DAILY for 3 Days, #3 TAB Prov:MANDY OJEDA MD 08/12/25 Albuterol Sulfate (Albuterol Sulfate Hfa) 108 Mcg/Act Aer, 108 MCG IN Q6HP PRN, #1 AER 3 Refills Prov:MANDY OJEDA MD 08/12/25 Acetaminophen (Acetaminophen) 500 Mg Tab, 500 MG PO Q4HPRN, #30 TAB 0 Refills Prov:KENTON PARTIDA 08/12/25 Sulfamethoxazole W/Trimethopri (Bactrim Ds Tablet) 1 Tab Tb, 1 TAB PO BID for 7 Days, #14 TAB 0 Refills Prov:KENTON PARTIDA 08/12/25 Benzonatate (Benzonatate) 100 Mg Cap, 1 CAP PO TID for 30 Days, #30 CAP Prov:ADAM SU DO 08/10/25 Quetiapine Fumerate (QUETIAPINE FUMARATE) 100 Mg Tab, 100 MG PO BID for 30 Days, #60 TAB 5 Refills Prov:ADAM SU DO 08/10/25 Ipratropium-Albuterol (COMBIVENT RESPIMAT) Respimat Aer, 1 PUFF IN Q4HP PRN, #1 AER Prov:KEYUR BEAVER MD 08/08/25 Prednisone (Prednisone) 20 Mg Tab, 20 MG PO DAILY for 5 Days, #5 MG Prov:KEYUR BEAVER MD 08/08/25 Albuterol Sulfate (Ventolin) 2 Mg/5 Ml Sr, 5 ML PO TID PRN for 30 Days, #150 ML 3 Refills Prov:ADAM SU DO 07/21/25 Loperamide Hcl (Imodium) 2 Mg Cp, 2 MG PO Q6HPRN PRN for 30 Days, #10 CAP Prov:JOYA PLATT NP 06/22/25 Divalproex Sodium (Divalproex Sodium) 500 Mg Tab, 500 MG PO BID for 30 Days, #60 MG Prov:JOYA PLATT NP 05/19/25 Haloperidol (Haldol) 5 Mg Tb, 3 MG PO BID for 30 Days, #60 MG Prov:JOYA PLATT HAND WRAPPER OPERATOR 05/19/25 Benztropine Mesylate (Benztropine Mesylate) 1 Mg Tab, 1 MG PO BID for 30 Days, #60 MG Prov:JOYA PLATT HAND WRAPPER OPERATOR 05/19/25 Trazodone Hcl (Trazodone Hcl) 50 Mg Tab, 75 MG PO HS for 30 Days, #45 MG Prov:JOYA PLATT HAND WRAPPER OPERATOR 05/19/25 Reported Medications Haloperidol (Haldol) 5 Mg Tb, 5 MG PO BID, MG 07/19/25 Ondansetron Odt 4MG Tab (ZOFRAN PO) 4 Mg Tb, 4 MG PO, TAB ODT TAB-DISSOLVE IN MOUTH, THEN SWALLOW 07/16/25 Naproxen (NAPROSYN TABLET) 500 Mg Tb, 1 TAB PO BID, #60 TAB 1 Refill 07/16/25 Acetaminophen (Tylenol Extra Strength) 500 Mg Tab, 500 MG PO, TAB 07/16/25 Fluticasone-Salmeterol (Advair Diskus 250/50) 1 Puff Ih, 1 PUFF INH BID, #3 INHALER 3 Refills 07/16/25 Dextromethorphan-Guaifenesin (Tussin Dm Cough & Chest C 20-200 mg/20Ml) 1 Liq Liq, 1 LIQ PO, LIQ 07/16/25 Quetiapine Fumerate (Seroquel) 50 Mg Tab, 1 TAB PO QPM, #30 TAB 2 Refills 07/16/25 Pantoprazole Sodium (PANTOPRAZOLE SODIUM) 40 Mg Inj, 40 MG PO DAILY, INJ 07/16/25 Discontinued Scripts Azithromycin (Azithromycin) 250 Mg Tab, 250 MG PO DAILY MDD 500 for 5 Days, #6 TAB 0 Refills 2 TABLETS ORALLY ON DAY ONE, THEN 1 TABLET ORALLY DAILY FOR 4 DAYS Prov:KATERINA BERNABE HAND WRAPPER OPERATOR 09/07/25 Information Source: Patient, Emergency Med Personnel Mode of Arrival: EMS Severity: Moderate Timing: Hours Duration: Since onset Prehospital treatment: 12 Lead EKG, Carbide Tool Die Maker, Oxygen Past Medical History PAST MEDICAL HISTORY: Asthma, COPD, HTN, Schizophrenia, UTI'S Surgical History: Denies all surgeries BROADCAST DESIGNER History: Denies all BROADCAST DESIGNER Hx Family History Family History: Reviewed,noncontributory to illness, Unknown Social History Smoker: Cigarettes, Less Than 1 Pack/Day Alcohol: Denies ETOH Use Drugs: Denies Drug Use Lives In: Assisted Care All Other Systems: Reviewed and Negative (As per HPI) Physical Exam General Appearance: Mild Distress, Thin, Other (elderly appearing ) HEENT: Normal ENT Inspection, Pharynx Normal, TMs Normal Neck: Full Range of Motion, Non-Tender, Normal, Normal Inspection Respiratory: Chest Non-Tender, No Accessory Muscle Use, No Respiratory Distress, Wheezing (bilaterally ) Cardiovascular: No Edema, No JVD, No Murmur, No Gallop, Normal Peripheral Pulses, Regular Rate/Rhythm Breast Exam: Deferred Gastrointestinal: No Organomegaly, Non Tender, No Pulsatile Mass, Normal Bowel Sounds, Soft Genitalia: Deferred Pelvic: Deferred Rectal: Deferred Extremities: No calf tenderness, Normal capillary refill, Normal inspection, Normal range of motion, Non-tender, No pedal edema Musculoskeletal : Apperance: Normal Neurologic: Alert, diamond driller II-XII 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 Was a procedure done?: No Differential Dx Considerations may include: acute COPD exacerbation, URI, PNA, ME, PE, ACS, among others X-Ray, Labs, Meds, VS Vital Signs Date Time Temp Pulse Resp B/P (MAP) Pulse Ox O2 Delivery O2 Flow Rate FiO2 09/12/25 22:30 97.3 89 16 84/45 (58) 96 97.3 09/12/25 21:36 20 97 Nasal Cannula* 2 28 09/12/25 21:11 98.4 99 20 116/43 94 98.4 Lab Test 09/12/25 22:03 09/12/25 21:52 Range/Units Blood Gas Specimen Type Venous Blood Gas Sample Site Vbg - n/a Blood Gas Patient Temperature 37.0 Arterial Blood Date Drawn [id number] Clay Test N/a Venous Blood pH 7.244 L 7.320-7.430 Venous Blood pCO2 at Patient Temp 100.3 *H 38.0-54.0 mmHg Venous Blood pO2 at Patient Temp < 36.5 23.0-48.0 mmHg Venous Blood HCO3 42.4 H 22.0-29.0 mmol/L Venous Blood Base Excess 10.3 H -2.0-3.0 mmol/L Blood Gas Liter Flow 4.00 Blood Gas Modality Nasal cannula FiO2 % 36.0 Blood Gas Critical Value Read Back Yes Blood Gas Notified Whom Kathleen ojeda md Blood Gas Notified Time [id number] Blood Gas Notified By Dieter bee rrt White Blood Count 5.2 4.4-10.8 10^3/uL Red Blood Count 4.42 4.0-5.20 10^6/uL Hemoglobin 13.7 12.2-16.2 g/dL Hematocrit 42.7 36.0-46.0 % Mean Corpuscular Volume 96.5 80.0-100.0 fL Mean Corpuscular Hemoglobin 30.9 28.0-32.0 pg Mean Corpuscular Hemoglobin Concent 32.0 32.0-36.0 g/dL Red Cell Distribution Width 16.3 H 11.8-14.3 % Platelet Count 150 140-450 10^3/uL Mean Platelet Volume 9.3 6.9-10.8 fL Neutrophils (%) (Auto) 66.1 37.0-80.0 % Lymphocytes (%) (Auto) 24.3 10.0-50.0 % Monocytes (%) (Auto) 7.2 0.0-12.0 % Eosinophils (%) (Auto) 2.1 0.0-7.0 % Basophils (%) (Auto) 0.3 0.0-2.0 % Neutrophils # (Auto) 3.4 1.6-8.6 10 ^3/uL Lymphocytes # (Auto) 1.3 0.4-5.4 10 ^3/uL Monocytes # (Auto) 0.4 0-1.3 10 ^3/uL Eosinophils # (Auto) 0.1 0-0.8 10 ^3/uL Basophils # (Auto) 0 0-0.2 10 ^3/uL Nucleated Red Blood Cells 0.0 % Sodium Level 142 136-145 mmol/L Potassium Level 4.7 3.5-5.1 mmol/L Chloride Level 100 98-107 mmol/L Carbon Dioxide Level 40 H 20-31 mmol/L Anion Gap 2 L 5-15 Blood Urea Nitrogen 8 L 9-23 mg/dL Creatinine 0.61 0.550-1.02 mg/dL Glomerular Filtration Rate Calc 105 >90 mL/min BUN/Creatinine Ratio 13.1 10.0-20.0 Serum Glucose 100 74-106 mg/dL Calcium Level 9.3 8.7-10.4 mg/dL Magnesium Level 1.9 1.6-2.6 mg/dL Total Bilirubin 0.3 0.2-1.0 mg/dL Aspartate Amino Transferase (AST) 12 L 13-40 U/L Alanine Aminotransferase (ALT) 10 7-40 U/L Alkaline Phosphatase 73 46-116 U/L Troponin I High Sensitivity < 3 L </=34 ng/L B-Type Natriuretic Peptide 32.71 0-100 pg/mL Total Protein 6.0 5.7-8.2 g/dL Albumin 4.4 3.2-4.8 g/dL Current Medications Medications (Trade) Dose Ordered Sig/Elaine Route Start Time Stop Time Status Last Admin Albuterol (Ventolin Medneb) 5 mg ONCE ONCE NEB 09/12/25 21:30 09/12/25 21:31 DC 09/12/25 21:36 Ipratropium [place] (Atrovent Medneb) 0.5 mg ONCE ONCE NEB 09/12/25 21:30 09/12/25 21:31 DC 09/12/25 21:36 Time of 1ST Reevaluation: 21:55 Reevaluation 1ST: Unchanged Patient Education/Counseling: Diagnosis, Treatment, Other (Need for admission ) Family Education/Counseling: No Family Present SEPSIS Sepsis Screen Physician Orders Troponin-I Hs (09/13/25 00:00) Troponin-I Hs (09/13/25 03:00) Troponin-I Hs (09/13/25 06:00) Carbide Tool Die Maker (09/12/25 21:34) Pulse Oximetry (09/12/25 21:34) Chest Xray 1 View (09/12/25 21:34) Venous Blood Gas (09/12/25 21:34) Sodium Chloride 0.9% (09/12/25 23:30) Vital Signs Date Time Temp Pulse Resp B/P (MAP) Pulse Ox O2 Delivery O2 Flow Rate FiO2 09/12/25 22:30 97.3 89 16 84/45 (58) 96 97.3 09/12/25 21:36 20 97 Nasal Cannula* 2 28 09/12/25 21:11 98.4 99 20 116/43 94 98.4 Laboratory Tests Test 09/12/25 21:52 White Blood Count 5.2 10^3/uL (4.4-10.8) Medications Medications Dose Ordered Sig/Elaine Route Start Time Stop Time Status Last Admin Dose Admin Albuterol 5 mg ONCE ONCE NEB 09/12/25 21:30 09/12/25 21:31 DC 09/12/25 21:36 Ipratropium [place] 0.5 mg ONCE ONCE NEB 09/12/25 21:30 09/12/25 21:31 DC 09/12/25 21:36 Departure 1 Departure Time of Disposition: 00:12 Impression: Primary Impression: COPD with acute exacerbation Additional Impression: Respiratory failure with hypoxia and hypercapnia Disposition: ADMITTED INPATIENT Admit to: Med Surg Condition: Guarded Comments 55-year-old female with a history of schizophrenia and COPD now with shortness of breath. Apparently her oxygen saturation was low when the paramedics arrived at 82% on room air. It improved to 93 94% on with the nasal cannula. Her VBG shows elevated pCO2 of 100. She was given prednisone and a breathing treatment. She is still requiring oxygen on re-evaluation. Patient will need to be admitted for supportive care and further workup. Critical Care Note Critical Care Time?: Yes (35 min-critical care time only) Critical care comment: Total critical care time: Approximately 36 minutes Due to a high probability of clinically significant, life threatening deterioration, the patient required my highest level of preparedness to intervene emergently and I personally spent this critical care time directly and personally managing the patient. This critical care time included obtaining a history; examining the patient; pulse oximetry; ordering and review of studies; arranging urgent treatment with development of a management plan; evaluation of patient's response to treatment; frequent reassessment; and, discussions with other providers. This critical care time was performed to assess and manage the high probability of imminent, life-threatening deterioration that could result in multi-organ failure. It was exclusive of separately billable procedures and treating other patients. Stability Stability form required: No Heart Score Heart Score: Heart Score Response (Comments) Value History N/A 0 EKG N/A 0 Age N/A 0 Risk Factors N/A 0 Troponin N/A 0 Total 0 I personally scribed for MANDY OJEDA MD ([email or web address]) on 09/12/25 at 21:59. Electronically submitted by Devin Huerta ([email or web address]). MANDY OJEDA MD Sep 12, 2025 21:59
[2025-09-12 22:18] LABS: Alanine Aminotransferase 10 U/L (7-40); Albumin 4.4 g/dL (3.2-4.8); Alkaline Phosphatase 73 U/L (46-116); Anion Gap 2 (5-15); BUN/Creatinine Ratio 13.1 (10.0-20.0); Calcium 9.3 mg/dL (8.7-10.4); Chloride 100 mmol/L (98-107); Glucose 100 mg/dL (74-106); Hematocrit 42.7 % (36.0-46.0); Hemoglobin 13.7 g/dL (12.2-16.2); Magnesium 1.9 mg/dL (1.6-2.6); Mean Corpuscular Hemoglobin 30.9 pg (28.0-32.0); Mean Corpuscular Volume 96.5 fL (80.0-100.0); Nucleated Red Blood Cells % 0.0 %; Potassium 4.7 mmol/L (3.5-5.1); Sodium 142 mmol/L (136-145); Total Protein 6.0 g/dL (5.7-8.2)
[2025-09-12 22:22] LABS: Bilirubin, Total 0.3 mg/dL (0.2-1.0); Blood Urea Nitrogen 8 mg/dL (9-23); Carbon Dioxide 40 mmol/L (20-31)
[2025-09-13] MEDS: MAGNESIUM SULFATE 1GM/100ML 100 ML IV ONE (00:10)
[2025-09-13] MEDS: predniSONE 20 MG TAB PO ONE (00:11)
[2025-09-13 00:28] VITALS: PULSE 89; RESP 16; O2SAT 96
[2025-09-13] MEDS: SODIUM CHLORIDE 0.9% 1,000 ML IV ONE (01:25)
[2025-09-13] MEDS ORDERED: DOCUSATE SOD 100 MG CAP PO PRN (02:00)
[2025-09-13] MEDS ORDERED: HYDROcodone-ACET 5/325MG TAB PO PRN (02:00)
[2025-09-13] MEDS ORDERED: ALBUTEROL SULF 2.5 MG/0.5ML(0.5%) NEB SOLN NEB PRN (02:00)
[2025-09-13] MEDS ORDERED: IPRATROPIUM BROM 0.5 MG/2.5ML INH SOL NEB PRN (02:00)
[2025-09-13] MEDS ORDERED: ACETAMINOPHEN 325 MG TAB PO PRN (02:00)
[2025-09-13] MEDS ORDERED: ONDANSETRON HCL 4 MG/2 ML VIAL IV PRN (02:00)
[2025-09-13 02:13] VITALS: BP 86/52; PULSE 82; RESP 16; TEMP 97.3; O2SAT 94
--- NOTE | 2025-09-13 03:25 | DVHHP2 ---
History of Present Illness Reason for Visit: COPD with acute exacerbation History of Present Illness The patient is a 55-year-old female with past medical history of COPD, asthma, hypertension, schizophrenia, and UTIs who presented to [facility] ED with complaint of shortness of breaths. Patient reports she has been experiencing difficulty breathing associated with chest pain, increased work of breathing, getting worse that prompted this visit. Patient was seen and evaluated in the ED, laboratory data shows WBC 5.2, platelets 150, sodium 142, potassium 4.7, BUN eight, creatinine 0.61, GFR 105, glucose-, calcium 9.3, BNP 32.71, troponin < 3, AST 12, ALT 10, blood pressure 86/52, heart rate 82, temperature 97.6 F, O2 saturation 94% on oxygen. Please see medication orders section in the computer. On my assessment, patient denied chest pain, no headache, dizziness, diaphoresis, currently on oxygen, no abdominal pain, diarrhea, nausea, vomiting, fever, no chills. Patient was admitted for further evaluation and medical management. Past Medical History Asthma, COPD, HTN, Schizophrenia, UTI'S Past Surgical History Denies all surgeries Family History Reviewed, noncontributory to the management of this case. Past Social History Patient lives at assisted care living, smokes cigarettes less than 1 pack per day, denies alcohol or illicit drugs abuse. Review of Systems Constitutional: Yes: Weakness; No: Fever, Chills, Sweats, Malaise, Other Eyes: No: Pain, Vision change, Conjunctivae inflammation, Eyelid inflammation, Other, Redness ENT: No: Ear pain, Ear discharge, Nose pain, Nose discharge, Nose congestion, Mouth pain, Mouth swelling, Throat pain, Throat swelling, Other Respiratory: Shortness of breath, SOB with excertion, Other (SOB at rest); No: Cough, Dry, Wheezing, Hemoptysis, Pleuritic Pain, Sputum, Wheezing Cardiovascular: Chest Pain; No: Palpitations, Orthopnea, Paroxysmal Noc. Dyspnea, Edema, Lt Headedness, Other Gastrointestinal: No: Nausea, Vomiting, Abdominal Pain, Diarrhea, Constipation, Melena, Hematochezia, Other Genitourinary: No Dysuria, No Frequency, No Incontinence, No Hematuria, No Retention, No Other Musculoskeletal: No: other, neck pain, shoulder pain, arm pain, back pain, hand pain, leg pain, foot pain Skin: No: Rash, Lesions, Jaundice, Bruising, Other Neurological: No: Weakness, Numbness, Incoordination, Change in speech, Confusion, Seizures, Other Allergies: Coded Allergies: Azithromycin (Verified Allergy, Severe, 08/02/25) Lactose (Verified Allergy, Severe, 11/15/24) Erythromycin (Verified Allergy, Intermediate, 07/19/25) Medications Current Medications Medications Dose Ordered Sig/Elaine Route Start Time Stop Time Status Last Admin Dose Admin Albuterol 2.5 mg Q4HPRN PRN NEB 09/13/25 02:00 Ipratropium [place] 0.5 mg Q4HPRN PRN NEB 09/13/25 02:00 Methylprednisolone Sodium Succinate 40 mg Q8HR IV 09/13/25 06:00 Famotidine 20 mg Q12HR IV 09/13/25 10:00 Sodium Chloride 10 ml Q8HR IV 09/13/25 06:00 Acetaminophen/ Hydrocodone Bitart 1 tab Q4HP PRN PO 09/13/25 02:00 Ondansetron HCl 4 mg Q4HP PRN IV 09/13/25 02:00 UNV Docusate Sodium 100 mg BIDPRN PRN PO 09/13/25 02:00 Acetaminophen 650 mg Q6HP PRN PO 09/13/25 02:00 Exam Vital Signs Vital Signs Date Time Temp Pulse Resp B/P (MAP) Pulse Ox O2 Delivery O2 Flow Rate FiO2 09/13/25 02:13 97.3 82 16 86/52 94 2.0 28 97.3 09/13/25 00:28 Room Air* Nasal Cannula* General Appearance: Alert, Oriented X3, Cooperative, No acute distress HEENT: Atraumatic, PERRLA, EOMI, Mucous membr. moist/pink Respiratory: Normal air movement, Other (Diminished breath sounds) Cardiovascular: Regular rate, Normal S1, Normal S2, No murmurs Abdominal: Normal bowel sounds, Soft, No tenderness, No hepatospenomegaly, No masses Extremities: No clubbing, No cyanosis, No edema, Normal pulses, No tenderness/swelling Skin: No rashes, No significant lesion Neuro: Normal speech, Normal tone, Sensation intact, Cranial nerves 3-12 NL, Re flexes 2+, Other (Generalized weakness) Psych/Mental Status: Mental status NL, Mood NL Labs/Xrays Labs Test 09/13/25 00:32 09/12/25 22:03 09/12/25 21:52 Range/Units Troponin I High Sensitivity < 3 L </=34 ng/L Blood Gas Specimen Type Venous Blood Gas Sample Site Vbg - n/a Blood Gas Patient Temperature 37.0 Arterial Blood Date Drawn [id number] Clay Test N/a Venous Blood pH 7.244 L 7.320-7.430 Venous Blood pCO2 at Patient Temp 100.3 *H 38.0-54.0 mmHg Venous Blood pO2 at Patient Temp < 36.5 23.0-48.0 mmHg Venous Blood HCO3 42.4 H 22.0-29.0 mmol/L Venous Blood Base Excess 10.3 H -2.0-3.0 mmol/L Blood Gas Liter Flow 4.00 Blood Gas Modality Nasal cannula FiO2 % 36.0 Blood Gas Critical Value Read Back Yes Blood Gas Notified Whom Kathleen london md Blood Gas Notified Time [id number] Blood Gas Notified By Dieter bee rrt White Blood Count 5.2 4.4-10.8 10^3/uL Red Blood Count 4.42 4.0-5.20 10^6/uL Hemoglobin 13.7 12.2-16.2 g/dL Hematocrit 42.7 36.0-46.0 % Mean Corpuscular Volume 96.5 80.0-100.0 fL Mean Corpuscular Hemoglobin 30.9 28.0-32.0 pg Mean Corpuscular Hemoglobin Concent 32.0 32.0-36.0 g/dL Red Cell Distribution Width 16.3 H 11.8-14.3 % Platelet Count 150 140-450 10^3/uL Mean Platelet Volume 9.3 6.9-10.8 fL Neutrophils (%) (Auto) 66.1 37.0-80.0 % Lymphocytes (%) (Auto) 24.3 10.0-50.0 % Monocytes (%) (Auto) 7.2 0.0-12.0 % Eosinophils (%) (Auto) 2.1 0.0-7.0 % Basophils (%) (Auto) 0.3 0.0-2.0 % Neutrophils # (Auto) 3.4 1.6-8.6 10 ^3/uL Lymphocytes # (Auto) 1.3 0.4-5.4 10 ^3/uL Monocytes # (Auto) 0.4 0-1.3 10 ^3/uL Eosinophils # (Auto) 0.1 0-0.8 10 ^3/uL Basophils # (Auto) 0 0-0.2 10 ^3/uL Nucleated Red Blood Cells 0.0 % Sodium Level 142 136-145 mmol/L Potassium Level 4.7 3.5-5.1 mmol/L Chloride Level 100 98-107 mmol/L Carbon Dioxide Level 40 H 20-31 mmol/L Anion Gap 2 L 5-15 Blood Urea Nitrogen 8 L 9-23 mg/dL Creatinine 0.61 0.550-1.02 mg/dL Glomerular Filtration Rate Calc 105 >90 mL/min BUN/Creatinine Ratio 13.1 10.0-20.0 Serum Glucose 100 74-106 mg/dL Calcium Level 9.3 8.7-10.4 mg/dL Magnesium Level 1.9 1.6-2.6 mg/dL Total Bilirubin 0.3 0.2-1.0 mg/dL Aspartate Amino Transferase (AST) 12 L 13-40 U/L Alanine Aminotransferase (ALT) 10 7-40 U/L Alkaline Phosphatase 73 46-116 U/L B-Type Natriuretic Peptide 32.71 0-100 pg/mL Total Protein 6.0 5.7-8.2 g/dL Albumin 4.4 3.2-4.8 g/dL SEPSIS Sepsis Screen Date sepsis recognized/suspect: Sep 13, 2025 Time Sepsis recognized/suspect: 0020 Recent Procedure: No On Antibiotic Therapy: No Respiratory Rate >20: No Heart Rate >90: No Temp<36 C (96.8 F) or >38.3 C: No SBP <90 or MAP <65 mmHG: Yes New Acute Mental Status Change: No Is the patient on CPAP, BIPAP,: No Physician Orders Project Management Professional (09/12/25 21:34) Pulse Oximetry (09/12/25 21:34) Chest Xray 1 View (09/12/25 21:34) Venous Blood Gas (09/12/25 21:34) Albuterol Medneb (Ventolin Medneb) (09/13/25 02:00) Methylprednisolone Sod Succ (Solu Medrol (09/13/25 06:00) Famotidine Injection (Pepcid Injection) (09/13/25 10:00) Allergies (09/13/25 01:49) Code Status (09/13/25 01:49) Sodium Chloride Lock (Saline Lock Ns) (09/13/25 06:00) Oxygen Per Hour (09/13/25 01:49) Hydrocodone-Acet 5/325mg Tab ([place] 5/32 (09/13/25 02:00) Ondansetron Hcl (Zofran) (09/13/25 02:00) Docusate Sodium Capsule (Colace Capsule) (09/13/25 02:00) Complete Blood Count (09/14/25 04:00) Comprehensive Metabolic Panel (09/14/25 04:00) Cardiac Diet-2gna,Lofat,Lochol (09/13/25 Breakfast) Condition: Serious (09/13/25 01:49) Acetaminophen Tablet (Tylenol Tablet) (09/13/25 02:00) Bedrest With Bathroom Privileg (09/13/25 01:49) Maintain Bed Rest (09/13/25 01:49) Sequential Compression Device (09/13/25 ) Ipratropium Medneb (Atrovent Medneb) (09/13/25 02:00) Vital Signs Date Time Temp Pulse Resp B/P (MAP) Pulse Ox O2 Delivery O2 Flow Rate FiO2 09/13/25 02:13 97.3 82 16 86/52 94 2.0 28 97.3 09/13/25 00:33 82 16 86/52 (63) 94 09/13/25 00:28 89 16 96 Room Air* 2 N/A Nasal Cannula* 09/12/25 22:30 97.3 89 16 84/45 (58) 96 97.3 09/12/25 21:36 20 97 Nasal Cannula* 2 28 09/12/25 21:11 98.4 99 20 116/43 94 98.4 Laboratory Tests Test 09/12/25 21:52 White Blood Count 5.2 10^3/uL (4.4-10.8) Medications Medications Dose Ordered Sig/Elaine Route Start Time Stop Time Status Last Admin Dose Admin Albuterol 5 mg ONCE ONCE NEB 09/12/25 21:30 09/12/25 21:31 DC 09/12/25 21:36 5 MG Ipratropium [place] 0.5 mg ONCE ONCE NEB 09/12/25 21:30 09/12/25 21:31 DC 09/12/25 21:36 0.5 MG Magnesium Sulfate/ Dextrose 100 ml @ 100 mls/hr ONCE ONCE IV 09/12/25 21:45 09/12/25 22:44 DC 09/13/25 00:10 100 MLS/HR Prednisone 40 mg ONCE ONCE PO 09/12/25 21:45 09/12/25 21:46 DC 09/13/25 00:11 40 MG Sodium Chloride 1,000 ml @ 1,000 mls/hr Q1H ONCE IV 09/12/25 23:30 09/13/25 00:29 DC 09/13/25 01:25 1,000 MLS/HR Assessment/Plan Assessment/Plan COPD with acute exacerbation Respiratory failure with hypoxia and hypercapnia Generalized weakness Plan 1. Admit to telemetry unit 2. Breathing treatment 3. Pain control management 4. Management of fluids and electrolytes 5. Consultation for hospitalist 6. Diagnostic tests chest x-ray 7. DVT prophylaxis-on SCDs 8. Repeat labs CBC, CMP in a.m. 9. Continue with current medical management 10. Treatment plan discussed with patient and RN. Patient verbalized understanding. Plan discussed with: Patient, Other (RN) My Orders Orders - VICKEY CUNNINGHAM DNP Procedure Category Date Status Time Albuterol Medneb PHA 09/13/25 In Process (Ventolin Medneb) 02:00 Methylprednisolone PHA 09/13/25 In Process Sod Succ (Solu Medrol 06:00 Famotidine Injection PHA 09/13/25 In Process (Pepcid Injection) 10:00 Allergies AMINATA 09/13/25 In Process 01:49 Code Status CODE 09/13/25 Transmitted 01:49 Sodium Chloride Lock PHA 09/13/25 In Process (Saline Lock Ns) 06:00 Oxygen Per Hour RT 09/13/25 Transmitted 01:49 Hydrocodone-Acet PHA 09/13/25 In Process 5/325mg Tab ([place] 02:00 Ondansetron Hcl PHA 09/13/25 Pending (Zofran) 02:00 Docusate Sodium PHA 09/13/25 In Process Capsule (Colace 02:00 Complete Blood Count LAB 09/14/25 Verified 04:00 Comprehensive LAB 09/14/25 Verified Metabolic Panel 04:00 Cardiac DIET 09/13/25 Transmitted Diet-2gna,Lofat,Lochol Breakfast Condition: Serious AMINATA 09/13/25 In Process 01:49 Acetaminophen Tablet PHA 09/13/25 In Process (Tylenol Tablet) 02:00 Bedrest With Bathroom AMINATA 09/13/25 In Process Privileg 01:49 Maintain Bed Rest AMINATA 09/13/25 In Process 01:49 Sequential AMINATA 09/13/25 In Process Compression Device Ipratropium Medneb PHA 09/13/25 In Process (Atrovent Medneb) 02:00 Problem List: (1) COPD with acute exacerbation (2) Respiratory failure with hypoxia and hypercapnia (3) Generalized weakness Date of Service: Sep 13, 2025 Billing Provider: VICKEY CUNNINGHAM DNP Common Visit Codes: [id number] INP/OBS CARE (HIGH) VICKEY CUNNINGHAM DNP Sep 13, 2025 03:25
[2025-09-13] MEDS ORDERED: NITROGLYCERIN 0.4 MG SL TAB SL PRN (03:30)
[2025-09-13] MEDS ORDERED: MORPHINE SULFATE INJ 2 MG/ml SYRG IV PRN (03:30)
[2025-09-13] MEDS: methylPREDNISolone SOD SUCC 40 MG/ML VL IV SCH (06:00)
[2025-09-13] MEDS: SODIUM CHLOR 0.9% PF (SALINE LOCK) 10ML VIAL/SYR IV SCH (06:00)
[2025-09-13 06:20] VITALS: BP 119/62; PULSE 88; RESP 14; TEMP 98.3; O2SAT 99
--- NOTE | 2025-09-13 06:34 | DVH ---
CHEST RADIOGRAPH INDICATION: sob TECHNIQUE: Single frontal view of the chest was obtained COMPARISON: XY CHEST XRAY 1 VIEW on DOS: 09/07/25. FINDINGS: Lines and Tubes: None Lungs: Bibasilar opacities noted. Persistent bilateral interstitial prominence. Pleura: No effusion. No pneumothorax. Cardiomediastinal contours: Unremarkable Bones: No acute osseous abnormality. IMPRESSION: 1. No significant interval change.
[2025-09-13] MEDS ORDERED: FAMOTIDINE (10MG/ML) 2ML VL IV SCH (10:00)
== END 2025-09-13 08:34 | disposition left against medical advice (07) | DRG 140 ==
LOC: EDBD 21:11 → EDUNIT# 21:11 → ER 21:11 → OVERFLOW 09-13 03:24
PROVIDERS: ADMIT Internal Medicine; ATTEND Internal Medicine
DX: J44.1 Chronic obstructive pulmonary disease with (acute) exacerbation (principal); J96.91 Respiratory failure, unspecified with hypoxia; J96.92 Respiratory failure, unspecified with hypercapnia; I10 Essential (primary) hypertension; F20.9 Schizophrenia, unspecified; Z53.29 Procedure and treatment not carried out because of patient's decision for other reasons; F17.210 Nicotine dependence, cigarettes, uncomplicated; Z88.1 Allergy status to other antibiotic agents; Z91.0110 Allergy to milk products, unspecified; Z87.440 Personal history of urinary (tract) infections; Z79.899 Other long term (current) drug therapy
CPT/HCPCS: 36415; 36600; 71045; 80053; 82805; 83735; 83880; 84484; 85025; 94640; 99291; G0378